=== PATIENT | male | born 1955 | race Caucasian/White ===

== ENCOUNTER 2020-04-20 20:14 | Emergency (ER) | payer MEDICARE, BC, SELFPAY ==
[2020-04-20 20:15] VITALS: BP 158/81; PULSE 90; RESP 18; TEMP 36.4; O2SAT 94; BMI 33.1
--- NOTE | 2020-04-20 20:41 | ED.VIS.INJ ---
History of Present Illness Informant: Patient Onset: Today - JPTA Mechanism/Context: Blunt Injury Quality of Pain: - - sore Location: mid-forehead Current Severity: Mild Maximum Severity: Moderate Worsened by: palpation Relieved by: n/a Associated Symptoms: Negative for: Parasthesias, Weakness, Loss of function, Inability to ambulate, Loss of consciousness, Amnesia Narrative: Patient states he was sitting in a recliner, relatively straight up and down and fell asleep while this occurred, fell forward and as a result struck his forehead on a nearby coffee table sustaining a laceration with bleeding. There was no loss of consciousness. He does have a mild headache, no nausea or vomiting. No vision changes or peripheral neurologic symptoms or other injuries. With pressure in route, he was able to get the bleeding to control. He takes a baby aspirin but no anticoagulants. Tetanus Immunization: <5 years <Samuel Bolanos - Last Filed: 04/20/20 21:35> <August Bertrand - Last Filed: 04/20/20 21:38> Chief Complaint: Laceration Past Medical History Past Medical History: None Smoking Status: Former smoker <Saumel Bolanos - Last Filed: 04/20/20 21:35> <August Bertrand - Last Filed: 04/20/20 21:38> - Allergies and Home Meds Allergies/Adverse Reactions: Allergies codeine Adverse Reaction (Verified 04/20/20 20:17) Nausea promethazine [From Phenergan] Adverse Reaction (Verified 04/20/20 20:17) Nausea Primary Care Physician: SULMA OSORIO [Other] Review of Systems General: Denies: Chills, Fever, Sweats Eyes: Denies: Visual changes - bilaterally, Diplopia ENT: Denies: Rhinorrhea, Sore throat Cardiovascular: Denies: Chest pain, Palpitations Respiratory: Denies: Dyspnea, Cough, Dyspnea on exertion Gastrointestinal: Denies: Abdominal pain, Nausea, Vomiting, Diarrhea Genitourinary: Denies: Dysuria, Hematuria Musculoskeletal: Denies: Swelling, Extremity Pain Skin: Reports: Wounds. Denies: Abscess Neurological: Reports: Headache. Denies: Weakness, Numbness <Samuel Bolanos - Last Filed: 04/20/20 21:35> Physical Exam Vital Signs/Narrative: Vital Signs Temp Pulse Resp BP Pulse Ox 04/20/20 20:15 97.6 F L 90 18 158/81 H 94 Inital Vital Signs reviewed: Yes General: Well nourished, Well developed, - - Well-appearing, no acute distress Head: Normocephalic, Trauma - With mild tenderness at site of laceration, mid lower forehead, not involving the nasal bridge or eyebrows/eyes. No crepitance or depression, no hematoma. Minimal bleeding. Eyes: Perrl, EOMI ENT: TM's clear, No hemotympanum or drainage, - - Midface stable. Laceration mid forehead only.. Negative for: Nasal trauma, Nasal septal hematoma Neck: Nontender, Full ROM Skin: Normal color, No rash, Trauma - 4 cm linear diagonal laceration lower mid forehead, full-thickness subcutaneous, clean-appearing Neurological: Alert, Oriented x3, Cranial nerves II-XII grossly intact, Normal Strength, Normal Sensation Psychological: Normal affect, Normal Mood - Glascow Coma Scale Eye Opening: Spontaneous Motor: Obeys Commands Verbal: Oriented Coma Scale Total: 15 <Samuel Bolanos - Last Filed: 04/20/20 21:35> Vital Signs/Narrative: Vital Signs Temp Pulse Resp BP Pulse Ox 04/20/20 20:15 97.6 F L 90 18 158/81 H 94 <August Bertrand - Last Filed: 04/20/20 21:38> Diagnostic/Tx/Re-eval - Medical Decision Making Laceration was repaired, his tetanus is up-to-date, I do not feel he needs a CT of the head which I discussed with him and he agrees. We discussed reasons to return. Laceration was repaired by my emergency physician colleague due to ED volume at the time. <Samuel Bolanos - Last Filed: 04/20/20 21:35> Procedures - Lacerations Face Depth: Skin Shape: Linear Prep: Sterile Conditions, Shacosta-Clens Laceration Repair: Lidocaine with epi, Local, Wound explored Number of Sutures/Rebeka: 6 Suture Information: Ethilon - Length of wound was 4 cm. A total of six 5-0 Ethilon sutures were placed. Patient tolerated procedure extremely well. Wound edges were well approximated., 5-0 <Augsut Bertrand - Last Filed: 04/20/20 21:38> ED Disposition <Samuel Bolanos - Last Filed: 04/20/20 21:35> <August Bertrand - Last Filed: 04/20/20 21:38> - Plan for ED Patient: Disposition: Home or Assisted Living Diagnosis: Facial laceration Instructions: ED Laceration, Face: Stitches or Tape Referrals: SULMA OSORIO [Other] Additional Instructions: Stitches need to be removed in 5 to 7 days. Follow up with your PCP. Local wound care as discussed
[2020-04-20] MEDS: Lidocaine/Epi/Tetracaine 50 ML 1 APPLIC TOPICAL (20:46)
[2020-04-20] MEDS: Lidocaine 1% /Epi 1:100 (20ml) 20 ML Vial INFILT (21:41)
== END 2020-04-20 21:42 | disposition home or self-care (01) ==
PROVIDERS: Emergency Provider Emergency Medicine
DX: S01.81XA Laceration without foreign body of other part of head, initial encounter (principal); Z87.891 Personal history of nicotine dependence; W22.8XXA Striking against or struck by other objects, initial encounter
CPT/HCPCS: 12013; 99283

== ENCOUNTER 2020-07-11 10:11 | Outpatient (RCR) | payer MEDICARE, BC, SELFPAY ==
[2020-07-11 10:44] VITALS: BMI 33.1
[2020-07-11 11:16] VITALS: BP 172/92; PULSE 76; RESP 16; TEMP 36.2; BMI 33.1
[2020-07-11 12:20] VITALS: BMI 33.1
--- NOTE | 2020-07-11 21:58 | PCM.WC.HP ---
(1) Corns and callosities Status: Chronic Code(s): L84 - Corns and callosities (2) Type 2 diabetes mellitus with diabetic polyneuropathy Status: Chronic Code(s): E11.42 - Type 2 diabetes mellitus with diabetic polyneuropathy (3) Non-pressure chronic ulcer of left heel and midfoot with fat layer exposed Status: Acute Code(s): L97.422 - Non-pressure chronic ulcer of left heel and midfoot with fat layer exposed (4) Tobacco abuse Status: Chronic Code(s): Z72.0 - Tobacco use (5) Obesity Status: Chronic Code(s): E66.9 - Obesity, unspecified History of Present Illness Date of Service: 07/11/20 Chief Complaint: left heel ulcer. swelling. calluses History of Wound: Patient presents for wound to left plantar foot. He is unsure how long it has been there as he can't see or reach his feet. He attributes this largely to his obesity. He relates that his daughter looked at his feet and saw the wound. He relates that his children live over an hour away and he lives alone. He relates some bloody drainage has been noted. He relates his daughter put a gauze over it secured with tape. Patient also complains of swelling to his legs, especially his left. He hasn't had this worked up by anyone. He relates he has smoked since he was 10 years old. He is also diabetic with neuropathy and relates his last hemoglobin A1c was 9.6. He also has hypertension. Past Medical History Past Medical History: Chronic Problems Corns and callosities (Chronic) Type 2 diabetes mellitus with diabetic polyneuropathy (Chronic) Tobacco abuse (Chronic) Obesity (Chronic) Allergies/Adverse Reactions: Allergies codeine Adverse Reaction (Verified 07/11/20 12:16) Nausea promethazine [From Phenergan] Adverse Reaction (Verified 07/11/20 12:16) Nausea Home Medications: Ambulatory Orders Medication Instructions Recorded Ascorbic Acid [Vitamin C] 1,000 mg PO TID 07/11/20 Aspirin [Aspirin, Baby] 81 mg PO DAILY@0800 07/11/20 Atorvastatin Calcium [Lipitor] 80 mg PO QHS 07/11/20 Cholecalciferol (Vitamin D3) 5,000 unit PO DAILY 07/11/20 [Vitamin D3] Gabapentin [Neurontin] 300 mg PO 07/11/20 Glipizide [Glipizide ER] 10 mg PO DAILY 07/11/20 Insulin Glargine,Hum.rec.anlog 40 unit SQ DAILY 07/11/20 [Lantus Solostar] Insulin Glargine,Hum.rec.anlog 35 unit SQ BREAKFAST 07/11/20 [Lantus] Insulin Lispro [Humalog KwikPen] See Protocol SQ 07/11/20 Magnesium Oxide [Magnesium] 500 mg PO DAILY 07/11/20 Oxycodone HCl/Acetaminophen 1 tab PO TID 07/11/20 [Percocet 10-325 mg Tablet] Smoking Status: Current every day smoker Review of Systems Constitutional: Denies: Chills, Fever Cardiovascular: Reports: Edema. Denies: Chest Pain Respiratory: Denies: Cough, Shortness of Breath Gastrointestinal: Denies: Nausea, Vomiting Skin: Reports: Wounds - left heel, - - callus left foot Neurological: Reports: Numbness, Tingling - Physical Exam Vital Signs Temp Pulse Resp BP 97.2 F L 76 16 172/92 H 07/11/20 11:16 07/11/20 11:16 07/11/20 11:16 07/11/20 11:16 General: Alert, Oriented x3 HEENT: Atraumatic Abdomen: Obese Extremities: No clubbing, No cyanosis, Capillary Refill Less than 3 Seconds, Diminished Peripheral Pulses, Edema - left greater than right lower extremity. Left induration noted with pitting edema. Left lower extremity also noted to have chronic red discoloration, - - left lower leg is indurated with some pain on compression of calf Skin: Ulcer/ Wound - plantar posterior left heel. Surrounding copious amounts of callus. No erythema, purulence, probing to bone, streaking or other signs of infection., - - copious amounts of callus to medial and lateral foot with majority at heel with fissuring to left lower extremity. B/L lower extremity noted to have dry skin. Some stable minimal well adhered noninfected eschars noted to b/l anterior legs Wound Measurements and Assessment WC - Nurse 1 - General Ulcer Measurement Start: 07/11/20 10:41 Freq: Status: Active Protocol: Activity Type Activity Date Activity User E-Sign Co-Sign Detail Recorded Client Recorded Date Recorded By Document 07/11/20 11:16 MS [id number] 07/11/20 11:24 MS 07/11/20 11:16 Wound Center Nurse 1 [Ulcer Assessment] #left lower leg -Current Size (cm) - Length 0.8 -Current Size (cm) - Width 0.4 -Current Size (cm) - Depth 0.1 -Total Square Cm 0.32 -Wound Margin Distinct, Outline Attached -Moisture (Margaret-wound Skin Appearance Dry/Scaly ) -Temperature (Margaret-wound Skin No Abnormality Appearance) (Pt Warm) -Tenderness on Palpation (Margaret-wound No Skin Appearance) -Ulcer Cleansing soap and water -Foul Odor after Cleansing No -Anesthetic Used 4% Lidocaine Solution #2 right lower leg -Current Size (cm) - Length 3 -Current Size (cm) - Width 0.3 -Current Size (cm) - Depth 0.1 -Total Square Cm 0.9 -Exudate Amt None Present -Wound Margin Distinct, Outline Attached -Granulation Amt None Present (0 %) -Slough/Fibrin No -Moisture (Margaret-wound Skin Appearance No Abnormality ) -Color (Margaret-wound Skin Appearance) Hemosiderin Staining -Ulcer Cleansing soap and water -Foul Odor after Cleansing No -Anesthetic Used 4% Lidocaine Solution #1 left heel -Current Size (cm) - Length 3 -Current Size (cm) - Width 0.8 -Current Size (cm) - Depth 0.6 -Total Square Cm 2.4 -Exudate Amt None Present -Wound Margin Distinct, Outline Attached -Granulation Amt None Present (0 %) -Slough/Fibrin No -Moisture (Margaret-wound Skin Appearance Dry/Scaly ) -Color (Margaret-wound Skin Appearance) Hemosiderin Staining -Temperature (Margaret-wound Skin No Abnormality Appearance) (Pt Warm) -Ulcer Cleansing soap and water -Foul Odor after Cleansing No -Anesthetic Used 4% Lidocaine Solution [Edema Assessment] -Right Calf (cm) 47 -Right Ankle (cm) 28 -Left Calf (cm) 42 -Left Ankle (cm) 26.5 WC - Nurse 2 - General Ulcer CM Notes Start: 07/11/20 10:41 Freq: Status: Active Protocol: Activity Type Activity Date Activity User E-Sign Co-Sign Detail Recorded Client Recorded Date Recorded By Document 07/11/20 11:58 DANIEL [id number] 07/11/20 12:11 JF 07/11/20 11:58 Wound Center Nurse 2 [Procedure/Treatment] #1 left heel -Time 12:03 -Correct Patient Yes -Correct Side, Site, Position Yes -Correct Procedure Yes -Procedure Performed Yes -Type of Procedure Debridement -Clinical Debridement Subcutaneous -Tissue Removed Subcutaneous -Post Debridement (cm) - Length 4.3 -Post Debridement (cm) - Width 1.4 -Post Debridement (cm) - Depth 0.4 -Total Square (Post) (cm) 6.02 -Area of Debridement (cm) - Length 4.3 -Area of Debridement (cm) - Width 1.4 -Total Square (Area) (cm) 6.02 -Tunneling No -Undermining/Tunneling No -Circular Undermining No -Wound/Ulcer Outcome Not Healed -Ulcer Cleansing Rinsed/ Irrigated with Saline -Foul Odor after Cleansing No -Bioengineered Tissue No -Bleeding Controlled with Pressure -Offloading No -Treatment Response Procedure Tolerated Well -Debridement - Subq, 1st 20sq cm Yes [See Physician Procedure note for Specifics] Pain Scale: 0-10 Numeric [Pain] -Is Patient Pain Free? Yes - Nurse 3 - General Ulcer D/C NN Start: 07/11/20 10:41 Freq: Status: Active Protocol: Activity Type Activity Date Activity User E-Sign Co-Sign Detail Recorded Client Recorded Date Recorded By Document 07/11/20 12:24 DL [id number] 07/11/20 12:26 DL 07/11/20 12:24 Wound Care Nurse 3 [Wound Dressing] #1 left heel -Ulcer Cleansing Rinsed/ Irrigated with Saline -Foul Odor after Cleansing No -Primary Dressing Applied C Hydrogel ($) -Primary Dressing Covered/Secured Dry Gauze & with Roll Gauze, Secured with Tape [Compression Applied] Right -Tubular Bandage Single Layer -Size of Tubigrip Used Size F -Size F ($) 1 [Post Procedure Tolerated] -Treatment Response Procedure Tolerated Well Pain Scale: 0-10 Numeric [Pain] -Is Patient Pain Free? Yes - Visit Discharge [Visit Discharge Information] -Discharge Condition Stable -Ambulatory Status Ambulatory,Cane Musculoskeletal: Muscle Wasting Neurological: - - lack of epicritic sensation consistent with neuropathy Psych/Mental Status: Normal Affect Debridement Note Post-Debridement Measurements/Treatment WC - Nurse 2 - General Ulcer CM Notes Start: 07/11/20 10:41 Freq: Status: Active Protocol: Activity Type Activity Date Activity User E-Sign Co-Sign Detail Recorded Client Recorded Date Recorded By Document 07/11/20 11:58 DANIEL [id number] 07/11/20 12:11 DANIEL 07/11/20 11:58 Wound Center Nurse 2 #1 left heel -Time 12:03 -Correct Patient Yes -Correct Side, Site, Position Yes -Correct Procedure Yes -Procedure Performed Yes -Type of Procedure Debridement -Clinical Debridement Subcutaneous -Tissue Removed Subcutaneous -Post Debridement (cm) - Length 4.3 -Post Debridement (cm) - Width 1.4 -Post Debridement (cm) - Depth 0.4 -Total Square (Post) (cm) 6.02 -Area of Debridement (cm) - Length 4.3 -Area of Debridement (cm) - Width 1.4 -Total Square (Area) (cm) 6.02 -Tunneling No -Undermining/Tunneling No -Circular Undermining No -Wound/Ulcer Outcome Not Healed -Ulcer Cleansing Rinsed/ Irrigated with Saline -Foul Odor after Cleansing No -Bioengineered Tissue No -Bleeding Controlled with Pressure -Offloading No -Treatment Response Procedure Tolerated Well -Debridement - Subq, 1st 20sq cm Yes Pain Scale: 0-10 Numeric Is Patient Pain Free? Yes - Nurse 3 - General Ulcer D/C NN Start: 07/11/20 10:41 Freq: Status: Active Protocol: Activity Type Activity Date Activity User E-Sign Co-Sign Detail Recorded Client Recorded Date Recorded By Document 07/11/20 12:24 DL [id number] 07/11/20 12:26 DL 07/11/20 12:24 Wound Care Nurse 3 #1 left heel -Ulcer Cleansing Rinsed/ Irrigated with Saline -Foul Odor after Cleansing No -Primary Dressing Applied C Hydrogel ($) -Primary Dressing Covered/Secured with Dry Gauze & Roll Gauze, Secured with Tape Right -Tubular Bandage Single Layer -Size of Tubigrip Used Size F -Size F ($) 1 Treatment Response Procedure Tolerated Well Pain Scale: 0-10 Numeric Is Patient Pain Free? Yes WC - Visit Discharge Discharge Condition Stable Ambulatory Status Ambulatory,Cane Wound debrided: heel cluster Laterality: Left Wound Grade/Stage: daugherty 1 Type of Debridement: Excisional debridement Anesthesia Used: 4% Lidocaine Solution Depth: in the subcutaneous layer Percentage of wound debrided: 70 Instrument Used: #15 blade Tissue Removed: removal of devitalized, biofilm, fibrotic, slough, biofilm, callus tissue Severity: Fat Layer Exposed Amount of bleeding with debridement: Mild Bleeding Controlled with: Pressure Patient tolerated procedure well Assessment/Plan Active Problems Corns and callosities (Chronic) Type 2 diabetes mellitus with diabetic polyneuropathy (Chronic) Non-pressure chronic ulcer of left heel and midfoot with fat layer exposed (Acute) Tobacco abuse (Chronic) Obesity (Chronic) Assessment: left heel ulcer. left foot callus with fissuring. diabetes with neuropathy. obesity. tobacco abuse Plan: Patient seen and examined. Patient is obese and relates that he can not reach his feet and hasn't been able to take proper care of them. Patient lives alone, and his children are over an hour away. His daughter saw the wound to his heel and got him to come to wound care center. Patient noted to have copious amounts of callus to left lower extremity. This is in part due to patient not being able to reach feet and thus provide proper care and hygeine to area. Discussed importance of cleaning and maintaining foot both to prevent infection as well as to prevent future wounds. Discussed he is at higher risk for wounds due to his neuropathy, hyperglycemia, swelling, and tabacco abuse. Discussed importance of smoking cessation, blood sugar control, weight management, offloading, proper nutrition, and hygeine to optimize healing potential. Callus foot care: Discussed condition and treatment options with the patient in detail. Debrided and removed callus from left medial and lateral foot and heel using a #15 blade. This was done without incident. Offloading, padding, and footwear has been reviewed. Follow up in 2-3 months, sooner if needed. This is medically necessary due to neuropathy findings, and performance of this service by a nonprofessional person would put the patient at risk. After verbal consent was obtained sharp excisional debridement debridement was carried out to the left heel ulceration. Arterial and venous studies were orderedf or the patient. Venous studies will also assess if DVT is present given patient's induration, swelling, and pain to left calf. Patient denies any vascular issues but also hasn't had anything worked up. Patient relates he has been smoking since he was 10 years old. Discussed impact smoking has on his vessels as well as impact on wound healing. Patient relates that he has had the swelling for a while anc can't wear compression socks as he can't reach to put them on. He also denies being on a water pill. Patient physically is unable to reach his feet and thus is unable to do his own dressing changes. He has no family who could do this for him as he lives alone and his kids are over an hour away. Discussed that he doesn't qualify for home health care. A&D ointment applied to left lower extremity. Wound care was reviewed with patient. Discussed offloading ulceration with surgical shoe with offloading insert. Patient noted to already be using a cane for ambulation. Patient denied getting surgical shoe at this time. Patient also complains of spot to his back that might need lanced. Discussed that I am a Ethnic [employer] Professor and am unable to look at his back. Offerred patient appointment with another physician at the [facility] to take a look at it. Also encouraged patient to follow up with his PCP about this. If worsens or changes patient encouraged to go to ED. Patient to follow up in 1 week. 30 to 44 minutes was spent on this encounter. This included both face to face and non face to face care, which includes but not limited to time preparing for the visit (which includes but not limited to reviewing medical record, any pertinent paperwork, as well as previous imaging and/or test results), reviewing/obtaining the noted history, performing the noted examination, counseling and providing education to the patient as well as to patient's family and/or patient caregivers per patient request. This also includes ordering any medication(s), test(s), and/or procedure(s) as indicated and as documented in the medical record, interpreting / sharing this information when indicated (and with patient's permission) as documented, communicating with other healthcare providers as needed/as requested, the time documenting information in the medical record, as well as any further care coordination.
== END 2020-07-16 23:59 ==
LOC: WC 10:11
PROVIDERS: Visit Provider Podiatrist Foot & Ankle Surgery
DX: E11.621 Type 2 diabetes mellitus with foot ulcer (principal); L84 Corns and callosities; E11.42 Type 2 diabetes mellitus with diabetic polyneuropathy; L97.422 Non-pressure chronic ulcer of left heel and midfoot with fat layer exposed; E66.9 Obesity, unspecified; I10 Essential (primary) hypertension; M79.89 Other specified soft tissue disorders; F17.200 Nicotine dependence, unspecified, uncomplicated; Z79.82 Long term (current) use of aspirin; Z79.899 Other long term (current) drug therapy; Z79.4 Long term (current) use of insulin; M79.662 Pain in left lower leg
CPT/HCPCS: 11042; 99213; G0463

== ENCOUNTER → 2020-07-25 11:27 | Outpatient (CLI) | payer MEDICARE, BC, SELFPAY ==
[2020-07-11 12:20] VITALS: BMI 33.1
[2020-07-25 09:15] VITALS: BMI 33.1
--- NOTE | 2020-07-25 11:30 | US_ITS ---
STUDY: RENAL ULTRASOUND - COMPLETE REASON FOR EXAM: Male, 64 years old. CKD, STAGE III TECHNIQUE: Ultrasound evaluation of the kidneys was performed with real-time and static dorado-scale imaging. COMPARISON: None. FINDINGS: Aorta: Visualized portions of abdominal aorta are normal in diameter. IVC: Visualized portions appear patent. Right kidney: Measures 12.5 cm. Normal contour. Renal cortical thickness appears normal. Multiple cysts including upper pole 2.3 cm, lateral pole 3.8 cm, and inferior pole 2.2 cm. . No masses, stones, or hydronephrosis identified. Left kidney: Measures 9.6 cm. Irregular contour. Renal cortical thickness appears normal. 2.1 cm cyst. No masses, stones, or hydronephrosis identified. Increased renal cortical echogenicity bilaterally may indicate medical renal disease. Bladder: No intrinsic masses, stones, or abnormal dilatation noted. US/Kidney and Bladder IMPRESSION: Small irregular appearing left kidney is likely due to prior partial nephrectomy. Several right renal cysts. Increased renal cortical echogenicity bilaterally may indicate medical renal disease. Electronically Signed: Jonatan Stovall MD at 16:37 EST Tel , Service support ,
== END ==
DX: I12.9 Hypertensive chronic kidney disease with stage 1 through stage 4 chronic kidney disease, or unspecified chronic kidney disease (principal); N18.30 Chronic kidney disease, stage 3 unspecified; E11.621 Type 2 diabetes mellitus with foot ulcer; E11.42 Type 2 diabetes mellitus with diabetic polyneuropathy; L97.411 Non-pressure chronic ulcer of right heel and midfoot limited to breakdown of skin; B35.1 Tinea unguium; L84 Corns and callosities; E66.9 Obesity, unspecified; M79.89 Other specified soft tissue disorders; F17.200 Nicotine dependence, unspecified, uncomplicated; L97.512 Non-pressure chronic ulcer of other part of right foot with fat layer exposed
CPT/HCPCS: 11042; 76770

== ENCOUNTER → 2020-08-04 09:48 | Outpatient (CLI) | payer MEDICARE, BC, SELFPAY ==
[2020-08-01 09:32] VITALS: BMI 33.1
--- NOTE | 2020-08-04 09:55 | RAD_ITS ---
STUDY: X-RAY - LEFT FOOT CLINICAL: Male, 64 years old. HEEL ULCER TECHNIQUE: 3 view(s) of the foot. COMPARISON: None. FINDINGS: Normal talus, calcaneus, and tarsal bones. Normal visualized subtalar, talonavicular, calcaneocuboid, tarsal and tarsometatarsal articulations. Normal metatarsi. Normal metatarsophalangeal joint of the great toe. Normal tibial and fibular sesamoid bones. Normal interphalangeal joint of the great toe. Normal phalanges of the great toe. Normal second through fifth metatarsophalangeal joints. Normal interphalangeal joints and phalanges of the lesser toes. The soft tissue structures are unremarkable. RAD/Foot min 3 Views IMPRESSION: Normal x-ray examination of the foot. Electronically Signed: Carlos Luo MD at 10:09 EDT Tel , Service support ,
== END ==
PROVIDERS: Referring Provider Podiatrist Foot & Ankle Surgery; Visit Provider Podiatrist Foot & Ankle Surgery
DX: L97.429 Non-pressure chronic ulcer of left heel and midfoot with unspecified severity (principal)
CPT/HCPCS: 73630

== ENCOUNTER 2020-08-15 09:30 | Outpatient (RCR) | payer MEDICARE, BC, SELFPAY ==
[2020-07-17 00:38] VITALS: BP 172/92; PULSE 76; RESP 16; TEMP 36.2
--- NOTE | 2020-07-20 12:53 | ART_ITS ---
Reason For Study: PVD Procedure A bilateral lower extremity continuous wave Doppler with analog waveform analysis,segmental pressures,and ankle brachial indexes without exercise. Left Segmental Pressures Left brachial= 151mmHg. Left posterior tibial artery = 161mmHg. Left dorsalis pedis artery = 142mmHg. Left digit = 113 mmHg. The left dorsalis pedis waveforms are triphasic. The left posterior tibial artery waveforms are triphasic. Right Segmental Pressures Right brachial= 160mmHg. Right posterior tibial artery = 188mmHg. Right dorsalis pedis artery = 159mmHg. Right digit = 122 mmHg. The right dorsalis pedis waveforms are triphasic. The right posterior tibial artery waveforms are triphasic. Indices The right ankle brachial index by the dorsalis pedis is .99. The right ankle brachial index by the posterior tibial artery is 1.18. The right digital-brachial index is .76. The left ankle brachial index by the dorsalis pedis is .89. The left ankle brachial index by the posterior tibial artery is 1.01. The left digital-brachial index is .71. Interpretation Summary Triphasic Doppler waveforms are noted at ankle level bilaterally. Pulse-volume recordings appear satisfactory at all levels bilaterally, including low-thigh, calf, ankle, and digital levels. Resting ankle-brachial indices are normal bilaterally. Digital-brachial indices are normal bilaterally. There is no evidence of significant arterial occlusive disease in the lower extremities bilaterally. Ordering Physician: Chelsea Nair Performed By: ROHAN LAL RVT
--- NOTE | 2020-07-20 12:53 | VDLE_ITS ---
Reason For Study: edema, ulcer RIGHT LEFT CFV is compressible, spontaneous, phasic, CFV is compressible, spontaneous, phasic, competent and demonstrates normal competent, and demonstrates normal augmentation. augmentation. FV is compressible, spontaneous, phasic, FV is compressible, spontaneous, phasic, competent and demonstrates normal competent and demonstrates normal augmentation. augmentation. POP V is compressible, spontaneous, phasic, POP V is compressible, spontaneous, phasic, competent and demonstrates normal competent and demonstrates normal augmentation. augmentation. T/P Trunk is compressible. T/P Trunk is compressible. PTV is compressible. PTV is compressible. RT PerV is compressible. LT PerV is compressible. SFJ is competent and measures .7 cm. SFJ is competent and measures .76 cm. GSV proximal thigh measures .59 x .61 cm. GSV proximal thigh measures .42 x .49 cm. GSV at knee measures .25 x .26 cm. GSV at knee measures .31 x .35 cm. GSV is competent throughout. GSV above knee is competent. SSV proximal calf is competent and GSV below knee is INCOMPETENT for greater measures .39 x .44 cm. than 0.5 seconds. Surgery Aid V 20 cm proximal to the medial SSV proximal calf is competent and malleolus is incompetent for greater than .5 measures .53 x .54 cm. seconds. Procedure This is a venous duplex using B-mode, color flow and spectral Doppler. Exam performed in department. The exam was diagnostic. Interpretation Summary Deep veins of the lower extremities are bilaterally patent and compressible segmentally. There is no evidence of deep vein thrombosis on either side. Valvular competence appears intact within the proximal deep venous systems bilaterally. The great saphenous veins appear bilaterally patent and compressible segmentally. Sapheno-femoral junctions are bilaterally competent . The right great saphenous vein appears segmentally competent. The left great saphenous vein appears competent above the knee. The left great saphenous vein appears incompetent below the knee. Small saphenous veins are patent and competent bilaterally. An incompetent metal lather vein is noted in the right calf, located 20 centimeters proximal to the right medial malleolus. Ordering Physician: Chelsea Nair Performed By: Brayan Fox RVT
[2020-07-25 09:15] VITALS: BP 166/80; PULSE 78; RESP 18; TEMP 36.6; BMI 33.1
--- NOTE | 2020-07-25 09:54 | PCM.WC.PN ---
(1) Non-pressure chronic ulcer of left heel and midfoot with fat layer exposed Status: Chronic Code(s): L97.422 - Non-pressure chronic ulcer of left heel and midfoot with fat layer exposed (2) Type 2 diabetes mellitus with diabetic polyneuropathy Status: Chronic Code(s): E11.42 - Type 2 diabetes mellitus with diabetic polyneuropathy (3) Tinea unguium Status: Chronic Code(s): B35.1 - Tinea unguium (4) Corns and callosities Status: Chronic Code(s): L84 - Corns and callosities (5) Tobacco abuse Status: Chronic Code(s): Z72.0 - Tobacco use (6) Obesity Status: Chronic Code(s): E66.9 - Obesity, unspecified Type of Wound Date of Service: 07/25/20 Chief Complaint: left heel ulcer. swelling. calluses. Toenail fungus History of Wound: Patient presents for wound to left plantar foot. He is unsure how long it has been there as he can't see or reach his feet. He attributes this largely to his obesity. He relates that his daughter looked at his feet and saw the wound. He relates that his children live over an hour away and he lives alone. He relates some bloody drainage has been noted. He relates his daughter put a gauze over it secured with tape. Patient also complains of swelling to his legs, especially his left. He relates he has smoked since he was 10 years old. He is also diabetic with neuropathy and relates his last hemoglobin A1c was 9.6. He also has hypertension. Progress of Wound: improved with less callus Subjective: Patient seen and examined resting comfortably. Patient denies any new pedal complaints. Patient denies any nausea, fever, chills, chest pain, shortness of breath, cough, streaking, purulence, vomiting. Patient relates that pain to his left heel is worsening - Physical Exam Vital Signs Temp Pulse Resp BP 97.9 F 78 18 166/80 H 07/25/20 09:15 07/25/20 09:15 07/25/20 09:15 07/25/20 09:15 General: Alert, Oriented x3 Abdomen: Obese - Body habitus prevents patient from reaching his feet Extremities: Capillary Refill Less than 3 Seconds, No Calf Tenderness, Diminished Peripheral Pulses, Edema, Tenderness - Heel wound Skin: Ulcer/ Wound - Left heel ulceration plantar with surrounding callus. No malodor, erythema, purulence, probing to bone, streaking, or other signs of infection. Skin is atrophic and hairless. Granular base Wound Measurements and Assessment WC - Nurse 1 - General Ulcer Measurement Start: 07/25/20 09:15 Freq: Status: Active Protocol: Activity Type Activity Date Activity User E-Sign Co-Sign Detail Recorded Client Recorded Date Recorded By Document 07/25/20 09:15 [facility] [id number] 07/25/20 09:28 [facility] 07/25/20 09:15 Wound Center Nurse 1 [Ulcer Assessment] #1 left heel -Combined with other wound No -Current Size (cm) - Length 2 -Current Size (cm) - Width 0.8 -Current Size (cm) - Depth 0.3 -Total Square Cm 1.6 -Photo Taken No -Epithelialization None Present -Tunneling No -Undermining/Tunneling No -Circular Undermining No -Exudate Amt Medium -Exudate Type Serosanguineous -Wound Margin Distinct, Outline Attached -Granulation Amt Small (1-33%) -Granulation Quality Red -Slough/Fibrin Yes -Necrosis Amt Medium (34-66%) -Necrotic Tissue Type Adherent Slough -Texture (Margaret-wound Skin Appearance) Assessed,Callus ,Scarring -Moisture (Margaret-wound Skin Appearance Assessed,Dry/ ) Scaly -Color (Margaret-wound Skin Appearance) Assessed -Temperature (Margaret-wound Skin No Abnormality Appearance) (Pt Warm) -Tenderness on Palpation (Margaret-wound No Skin Appearance) -Ulcer Cleansing SOAPY WATER -Foul Odor after Cleansing No -Anesthetic Used 4% Lidocaine Solution [Edema Assessment] -Lower Limb Edema Present Yes -Left Calf (cm) 46.4 -Left Ankle (cm) 27 Musculoskeletal: Tenderness - Ulceration Neurological: - - Lack of epicritic sensation consistent with neuropathy Psych/Mental Status: Normal Affect, Appropriate Debridement Note Wound debrided: He will Laterality: Left Depth: in the subcutaneous layer Percentage of wound debrided: 100 Instrument Used: 5mm curette, #15 blade Tissue Removed: Tissue removed include fibrous, devitalized, biofilm, callus, slough tissue Severity: Fat Layer Exposed Amount of bleeding with debridement: Mild Bleeding Controlled with: Pressure Patient tolerated procedure well Assessment/Plan Assessment: left heel ulcer. left foot callus with fissuring. diabetes with neuropathy. obesity. tobacco abuse. Toenail fungus Plan: Patient seen and examined. Patient is obese and relates that he can not reach his feet and hasn't been able to take proper care of them. Patient lives alone, and his children are over an hour away. His daughter saw the wound to his heel and got him to come to wound care center. Patient noted to have copious amounts of callus to left lower extremity more of the callus tissue was debrided today after verbal consent was obtained from the patient. This is in part due to patient not being able to reach feet and thus provide proper care and hygeine to area. Discussed importance of cleaning and maintaining foot both to prevent infection as well as to prevent future wounds. Discussed he is at higher risk for wounds due to his neuropathy, hyperglycemia, swelling, and tabacco abuse. Discussed importance of smoking cessation, blood sugar control, weight management, offloading, proper nutrition, and hygeine to optimize healing potential. After verbal consent was obtained sharp excisional debridement debridement was carried out to the left heel ulceration. Arterial and venous studies were reviewed. Patient relates he has been smoking since he was 10 years old. Discussed impact smoking has on his vessels as well as impact on wound healing. Patient relates that he has had the swelling for a while and can't wear compression socks as he can't reach to put them on. He also denies being on a water pill. Patient physically is unable to reach his feet and thus is unable to do his own dressing changes. He has no family who could do this for him as he lives alone and his kids are over an hour away. Patient was able to obtain daily home health care aides to assist with dressing changes. Patient is noted to have decrease in swelling and overall better hygiene appearance most likely due to this. Patient has benefit from home health hospice home care coordinator. A&D ointment applied to left lower extremity. Hydrogel to heel ulcer with Adaptic covering entire heel. SurePress compression over dressing. To continue this daily per home health care. Discussed offloading ulceration with surgical shoe with offloading insert. Patient brought a surgical shoe today that has heel offloaded. Uses roller aid for ambulation. Patient also has concerns for toenail fungus. Discussed with the patient various treatment options as well as biopsy for toenail fungus. Discussed that his inability to reach his toes would inhibit his ability to do the topical options. Also discussed that proper toe maintenance and hygiene as well as callus care is important to the patient's continued foot health and prevention of future ulcerations of in the patient history of ulcerations and neuropathy and diabetes. Discussed that he can become established at our office for the services. Patient to follow up in 1 week. 20 to 29 minutes was spent on this encounter. This included both face to face and non face to face care, which includes but not limited to time preparing for the visit (which includes but not limited to reviewing medical record, any pertinent paperwork, as well as previous imaging and/or test results), reviewing/obtaining the noted history, performing the noted examination, counseling and providing education to the patient as well as to patient's family and/or patient caregivers per patient request. This also includes ordering any medication(s), test(s), and/or procedure(s) as indicated and as documented in the medical record, interpreting / sharing this information when indicated (and with patient's permission) as documented, communicating with other healthcare providers as needed/as requested, the time documenting information in the medical record, as well as any further care coordination.
[2020-08-01 09:32] VITALS: BP 139/61; PULSE 82; RESP 22; TEMP 37.1; BMI 33.1
--- NOTE | 2020-08-01 10:18 | PCM.WC.PN ---
(1) Non-pressure chronic ulcer of left heel and midfoot with fat layer exposed Status: Chronic Code(s): L97.422 - Non-pressure chronic ulcer of left heel and midfoot with fat layer exposed (2) Type 2 diabetes mellitus with diabetic polyneuropathy Status: Chronic Code(s): E11.42 - Type 2 diabetes mellitus with diabetic polyneuropathy (3) Tinea unguium Status: Chronic Code(s): B35.1 - Tinea unguium (4) Corns and callosities Status: Chronic Code(s): L84 - Corns and callosities (5) Tobacco abuse Status: Chronic Code(s): Z72.0 - Tobacco use (6) Obesity Status: Chronic Code(s): E66.9 - Obesity, unspecified Type of Wound Date of Service: 08/01/20 Chief Complaint: left heel ulcer. swelling. calluses. Toenail fungus History of Wound: Patient presents for wound to left plantar foot. He is unsure how long it has been there as he can't see or reach his feet. He attributes this largely to his obesity. He relates that his daughter looked at his feet and saw the wound. He relates that his children live over an hour away and he lives alone. He relates some bloody drainage has been noted. He relates his daughter put a gauze over it secured with tape. Patient also complains of swelling to his legs, especially his left. He relates he has smoked since he was 10 years old. He is also diabetic with neuropathy and relates his last hemoglobin A1c was 9.6. He also has hypertension. Progress of Wound: less callus surrounding wound noted. Wound itself is stable Subjective: Patient seen and examined resting comfortably. Patient denies any new pedal complaints. Patient denies any nausea, fever, chills, chest pain, shortness of breath, cough, streaking, purulence, vomiting. - Physical Exam Vital Signs Temp Pulse Resp BP 98.8 F 82 22 H 139/61 H 08/01/20 09:32 08/01/20 09:32 08/01/20 09:32 08/01/20 09:32 General: Alert, Oriented x3 HEENT: Atraumatic Abdomen: Obese Extremities: No clubbing, No cyanosis, Capillary Refill Less than 3 Seconds, No Calf Tenderness, Diminished Peripheral Pulses, Edema, - - Chronic red-blue color discoloration to bilateral lower extremities Skin: Ulcer/ Wound - Left heel ulceration. Surrounding callus noted. No malodor, erythema, purulence, probing to bone, streaking, or other signs of infection. Skin is atrophic and hairless. Granular base, - - Callus to bilateral heels left worse than right. Skin is thin and atrophic and flaky. Wound Measurements and Assessment WC - Nurse 1 - General Ulcer Measurement Start: 07/25/20 09:15 Freq: Status: Active Protocol: Activity Type Activity Date Activity User E-Sign Co-Sign Detail Recorded Client Recorded Date Recorded By Document 08/01/20 09:32 JULIO C [id number] 08/01/20 09:42 DL 08/01/20 09:32 Wound Center Nurse 1 [Ulcer Assessment] #1 left heel CLUSTER -Current Size (cm) - Length 2 -Current Size (cm) - Width 1 -Current Size (cm) - Depth 0.3 -Total Square Cm 2 -Photo Taken No -Exudate Amt Small -Wound Margin Thickened -Granulation Amt Medium (34-66%) -Granulation Quality Pale,Trout -Necrosis Amt Medium (34-66%) -Necrotic Tissue Type Adherent Slough -Structure Exposed N/A -Texture (Margaret-wound Skin Appearance) Callus -Moisture (Margaret-wound Skin Appearance Dry/Scaly ) -Color (Margaret-wound Skin Appearance) No Abnormality -Temperature (Margaret-wound Skin No Abnormality Appearance) (Pt Warm) -Tenderness on Palpation (Margaret-wound Yes Skin Appearance) -Ulcer Cleansing Wound Cleanser -Foul Odor after Cleansing No -Anesthetic Used 4% Lidocaine Solution [Edema Assessment] -Left Calf (cm) 44 -Left Ankle (cm) 26 - Nurse 2 - General Ulcer CM Notes Start: 07/25/20 09:15 Freq: Status: Active Protocol: Activity Type Activity Date Activity User E-Sign Co-Sign Detail Recorded Client Recorded Date Recorded By Document 08/01/20 09:51 DANIEL [id number] 08/01/20 09:55 DANIEL 08/01/20 09:51 Wound Center Nurse 2 [Procedure/Treatment] #1 left heel CLUSTER -Time 09:54 -Correct Patient Yes -Correct Side, Site, Position Yes -Correct Procedure Yes -Procedure Performed Yes -Type of Procedure Debridement -Clinical Debridement Subcutaneous -Tissue Removed Subcutaneous -Post Debridement (cm) - Length 2.3 -Post Debridement (cm) - Width 0.8 -Post Debridement (cm) - Depth 0.3 -Total Square (Post) (cm) 1.84 -Area of Debridement (cm) - Length 2.3 -Area of Debridement (cm) - Width 0.8 -Total Square (Area) (cm) 1.84 -Tunneling No -Undermining/Tunneling No -Circular Undermining No -Wound/Ulcer Outcome Not Healed -Ulcer Cleansing Rinsed/ Irrigated with Saline -Foul Odor after Cleansing No -Bioengineered Tissue No -Bleeding Controlled with Pressure -Offloading No -Treatment Response Procedure Tolerated Well -Debridement - Subq, 1st 20sq cm Yes [See Physician Procedure note for Specifics] Pain Scale: 0-10 Numeric [Pain] -Is Patient Pain Free? Yes Musculoskeletal: Tenderness - To heel ulcer Neurological: - - Decrease in epicritic sensation consistent with neuropathy Psych/Mental Status: Normal Affect, Appropriate Debridement Note Post-Debridement Measurements/Treatment WC - Nurse 2 - General Ulcer CM Notes Start: 07/25/20 09:15 Freq: Status: Active Protocol: Activity Type Activity Date Activity User E-Sign Co-Sign Detail Recorded Client Recorded Date Recorded By Document 07/25/20 09:40 [email or web address] [id number] 07/25/20 10:02 Document 08/01/20 09:51 [id number] 08/01/20 09:55 07/25/20 08/01/20 09:40 09:51 Wound Center Nurse 2 #1 left heel CLUSTER -Time 09:40 09:54 -Correct Patient Yes Yes -Correct Side, Site, Position Yes Yes -Correct Procedure Yes Yes -Procedure Performed Yes Yes -Type of Procedure Debridement Debridement -Clinical Debridement Subcutaneous Subcutaneous -Tissue Removed Subcutaneous Subcutaneous -Post Debridement (cm) - Length 2 2.3 -Post Debridement (cm) - Width 0.9 0.8 -Post Debridement (cm) - Depth 0.3 0.3 -Total Square (Post) (cm) 1.8 1.84 -Area of Debridement (cm) - Length 2 2.3 -Area of Debridement (cm) - Width 0.9 0.8 -Total Square (Area) (cm) 1.8 1.84 -Tunneling No No -Undermining/Tunneling No -Circular Undermining No No -Wound/Ulcer Outcome Not Healed Not Healed -Ulcer Cleansing Rinsed/ Rinsed/ Irrigated with Irrigated with Saline Saline -Foul Odor after Cleansing No No -Bioengineered Tissue No No -Bleeding Controlled with Pressure Pressure -Offloading Yes No -Type of Offloading Surgical Shoe -Treatment Response Procedure Procedure Tolerated Well Tolerated Well -Debridement - Subq, 1st 20sq cm Yes Yes Pain Scale: 0-10 Numeric Is Patient Pain Free? Yes Yes - Nurse 3 - General Ulcer D/C NN Start: 07/25/20 09:15 Freq: Status: Active Protocol: Activity Type Activity Date Activity User E-Sign Co-Sign Detail Recorded Client Recorded Date Recorded By Document 07/25/20 10:02 DANIEL [id number] 07/25/20 10:03 DANIEL 07/25/20 10:02 Wound Care Nurse 3 #1 left heel CLUSTER -Ulcer Cleansing Rinsed/ Irrigated with Saline -Foul Odor after Cleansing No -Primary Dressing Applied C Hydrogel ($), NonAdherent Contact Layer -Primary Dressing Covered/Secured with Dry Gauze & Roll Gauze, Secured with Tape Left -Compression Wrap Surepress ($) Pain Scale: 0-10 Numeric Is Patient Pain Free? Yes WC - Visit Discharge Discharge Condition Stable Ambulatory Status Walker Transportation Private Auto Medication Reconcilliation completed & Yes provided to patient/care provider Clinical Summary of Care Provided Yes Wound debrided: heel Laterality: Left Wound Grade/Stage: Acevedo 1 Type of Debridement: Excisional debridement Anesthesia Used: 4% Lidocaine Solution Depth: in the subcutaneous layer Percentage of wound debrided: 100 Instrument Used: 3mm curette, #15 blade - Debridement of surrounding callus Tissue Removed: Tissue removed includes fibrous, devitalized, biofilm, and slough tissue Severity: Fat Layer Exposed Amount of bleeding with debridement: Mild Bleeding Controlled with: Pressure Patient tolerated procedure well Assessment/Plan Active Problems Corns and callosities (Chronic) Type 2 diabetes mellitus with diabetic polyneuropathy (Chronic) Non-pressure chronic ulcer of left heel and midfoot with fat layer exposed (Chronic) Tobacco abuse (Chronic) Obesity (Chronic) Tinea unguium (Chronic) Assessment: left heel ulcer. left foot callus with fissuring. diabetes with neuropathy. obesity. tobacco abuse Plan: Patient seen and examined. Patient is obese and relates that he can not reach his feet and hasn't been able to take proper care of them. Patient lives alone, and his children are over an hour away. His daughter saw the wound to his heel and got him to come to wound care center. Callus tissue and wound to left plantar heel were sharply debrided with a curette and #15 blade after verbal consent was obtained from the patient. Was done without incident. Discussed importance of cleaning and maintaining foot both to prevent infection as well as to prevent future wounds. Discussed he is at higher risk for wounds due to his neuropathy, hyperglycemia, swelling, and tabacco abuse. Discussed importance of smoking cessation, blood sugar control, weight management, offloading, proper nutrition, and hygeine to optimize healing potential. After verbal consent was obtained sharp excisional debridement debridement was carried out to the left heel ulceration. Arterial and venous studies were reviewed. Showing likely adequate perfusion for healing. Patient relates he has been smoking since he was 10 years old. Discussed impact smoking has on his vessels as well as impact on wound healing. Patient relates that he has had the swelling for a while and can't wear compression socks as he can't reach to put them on. He also denies being on a water pill. Patient physically is unable to reach his feet and thus is unable to do his own dressing changes. He has no family who could do this for him as he lives alone and his kids are over an hour away. Patient was able to obtain daily home health care aides to assist with dressing changes. Patient is noted to have decrease in swelling and overall better hygiene appearance most likely due to this. Patient has benefit from home health child care development specialist. A&D ointment applied to bilateral lower extremity. Hydrogel to heel ulcer with Adaptic covering entire heel. SurePress compression over dressing. To continue this daily per home health care. Discussed offloading ulceration with surgical shoe with offloading insert. Patient brought a surgical shoe today that has heel offloaded. Uses roller aid for ambulation. Patient to follow up in 1 week
[2020-08-08 09:28] VITALS: BP 158/66; PULSE 71; RESP 20; TEMP 36.6; BMI 33.1
--- NOTE | 2020-08-08 11:08 | PN.PCM_ITS ---
(1) Non-pressure chronic ulcer of left heel and midfoot with fat layer exposed Status: Chronic Code(s): L97.422 - Non-pressure chronic ulcer of left heel and midfoot with fat layer exposed (2) Type 2 diabetes mellitus with diabetic polyneuropathy Status: Chronic Code(s): E11.42 - Type 2 diabetes mellitus with diabetic polyneuropathy (3) Tinea unguium Status: Chronic Code(s): B35.1 - Tinea unguium (4) Corns and callosities Status: Chronic Code(s): L84 - Corns and callosities (5) Tobacco abuse Status: Chronic Code(s): Z72.0 - Tobacco use (6) Obesity Status: Chronic Code(s): E66.9 - Obesity, unspecified Type of Wound Date of Service: 08/12/20 Chief Complaint: left heel ulcer. swelling. calluses. Toenail fungus History of Wound: Patient presents for wound to left plantar foot. He is unsure how long it has been there as he can't see or reach his feet. He attributes this largely to his obesity. He relates that his daughter looked at his feet and saw the wound. He relates that his children live over an hour away and he lives alone. He relates some bloody drainage has been noted. He relates his daughter put a gauze over it secured with tape. Patient also complains of swelling to his legs, especially his left. He relates he has smoked since he was 10 years old. He is also diabetic with neuropathy and relates his last hemoglobin A1c was 9.6. He also has hypertension. Patient relates bumping his right foot while ambulating and noticed some blood to his toe a couple days ago. Progress of Wound: Left heel wound stable, skin to lower extremities improved appearance, no significant amount of increased callus tissue noted, new wound to dorsal fourth digit right foot Subjective: Patient seen and examined resting comfortably. Patient denies any new pedal complaints. Patient denies any nausea, fever, chills, chest pain, shortness of breath, cough, streaking, purulence, vomiting. Patient relates new wound to right dorsal foot after stubbing it couple days ago - Physical Exam Vital Signs Temp Pulse Resp BP 97.8 F 71 20 H 158/66 H 08/08/20 09:28 08/08/20 09:28 08/08/20 09:28 08/08/20 09:28 General: Alert, Oriented x3 HEENT: Atraumatic Abdomen: Obese Extremities: No clubbing, No cyanosis, Capillary Refill Less than 3 Seconds, No Calf Tenderness - None none none, Diminished Peripheral Pulses, Edema - Some induration noted but it has improved as well as the skin quality to bilateral lower extremities. Chronic rubor. Skin is noted to be less flaky and has some moderate elasticity to it, - - Nails 1 through 5 bilaterally are thickened elongated crumbly subungual debris discolored and dystrophic noted. Skin: Ulcer/ Wound - Left plantar heel ulceration and right dorsal fourth digit ulceration. No malodor, erythema, purulence, probing to bone, streaking, fluctuation, crepitus, or other signs of infection. Skin is atrophic and hairless. Granular base. No significant buildup of callus to leandra heel ulcer Wound Measurements and Assessment WC - Nurse 1 - General Ulcer Measurement Start: 07/25/20 09:15 Freq: Status: Active Protocol: Activity Type Activity Date Activity User E-Sign Co-Sign Detail Recorded Client Recorded Date Recorded By Document 08/08/20 09:28 DL [id number] 08/08/20 09:36 DL 08/08/20 09:28 Wound Center Nurse 1 [Ulcer Assessment] #1 left heel CLUSTER -Current Size (cm) - Length 2.1 -Current Size (cm) - Width 1.2 -Current Size (cm) - Depth 0.3 -Total Square Cm 2.52 -Photo Taken No -Exudate Amt Medium -Exudate Type Serosanguineous -Wound Margin Thickened -Granulation Amt Small (1-33%) -Granulation Quality [place] -Necrosis Amt Large (67-100%) -Necrotic Tissue Type Adherent Slough -Structure Exposed N/A -Texture (Leandra-wound Skin Appearance) Callus,Scarring -Moisture (Leandra-wound Skin Appearance Dry/Scaly ) -Color (Leandra-wound Skin Appearance) Hemosiderin Staining -Temperature (Leandra-wound Skin No Abnormality Appearance) (Pt Warm) -Tenderness on Palpation (Leandra-wound No Skin Appearance) -Ulcer Cleansing Wound Cleanser -Foul Odor after Cleansing No -Anesthetic Used 4% Lidocaine Solution [Edema Assessment] -Right Calf (cm) 43 -Right Ankle (cm) 26 -Left Calf (cm) 42 -Left Ankle (cm) 23.5 WC - Nurse 2 - General Ulcer CM Notes Start: 07/25/20 09:15 Freq: Status: Active Protocol: Activity Type Activity Date Activity User E-Sign Co-Sign Detail Recorded Client Recorded Date Recorded By Document 08/08/20 09:56 DANIEL [id number] 08/08/20 10:08 DANIEL 08/08/20 09:56 Wound Center Nurse 2 [Procedure/Treatment] 3- right 4th toe -Time 10:06 -Correct Patient Yes -Correct Side, Site, Position Yes -Correct Procedure Yes -Procedure Performed Yes -Type of Procedure Debridement -Clinical Debridement Subcutaneous -Tissue Removed Subcutaneous -Post Debridement (cm) - Length 0.4 -Post Debridement (cm) - Width 0.6 -Post Debridement (cm) - Depth 0.1 -Total Square (Post) (cm) 0.24 -Area of Debridement (cm) - Length 0.4 -Area of Debridement (cm) - Width 0.6 -Total Square (Area) (cm) 0.24 -Tunneling No -Undermining/Tunneling No -Circular Undermining No -Wound/Ulcer Outcome Not Healed -Ulcer Cleansing Rinsed/ Irrigated with Saline -Foul Odor after Cleansing No -Bioengineered Tissue No -Bleeding Controlled with Pressure -Offloading No -Treatment Response Procedure Tolerated Well -Debridement - Subq, 20sq cm No #1 left heel CLUSTER -Time 10:00 -Correct Patient Yes -Correct Side, Site, Position Yes -Correct Procedure Yes -Procedure Performed Yes -Type of Procedure Debridement -Clinical Debridement Subcutaneous -Tissue Removed Subcutaneous -Post Debridement (cm) - Length 2 -Post Debridement (cm) - Width 1.2 -Post Debridement (cm) - Depth 0.3 -Total Square (Post) (cm) 2.4 -Area of Debridement (cm) - Length 2 -Area of Debridement (cm) - Width 1.2 -Total Square (Area) (cm) 2.4 -Tunneling No -Undermining/Tunneling No -Circular Undermining No -Wound/Ulcer Outcome Not Healed -Ulcer Cleansing Rinsed/ Irrigated with Saline -Foul Odor after Cleansing No -Bioengineered Tissue No -Bleeding Controlled with Pressure -Offloading Yes -Type of Offloading Surgical Shoe -Treatment Response Procedure Tolerated Well -Debridement - Subq, 1st 20sq cm Yes [See Physician Procedure note for Specifics] Pain Scale: 0-10 Numeric [Pain] -Is Patient Pain Free? Yes - Nurse 3 - General Ulcer D/C NN Start: 07/25/20 09:15 Freq: Status: Active Protocol: Activity Type Activity Date Activity User E-Sign Co-Sign Detail Recorded Client Recorded Date Recorded By Document 08/08/20 10:16 DL [id number] 08/08/20 10:18 DL 08/08/20 10:16 Wound Care Nurse 3 [Wound Dressing] 3- right 4th toe -Ulcer Cleansing Rinsed/ Irrigated with Saline -Foul Odor after Cleansing No -Primary Dressing Applied C Hydrogel ($), NonAdherent Contact Layer -Primary Dressing Covered/Secured Dry Gauze & with Roll Gauze, Secured with Tape #1 left heel CLUSTER -Ulcer Cleansing Rinsed/ Irrigated with Saline -Foul Odor after Cleansing No -Primary Dressing Applied NonAdherent Contact Layer -Other Dressing hydrogel -Primary Dressing Covered/Secured Dry Gauze & with Roll Gauze, Secured with Tape [Compression Applied] Left -Size of Tubigrip Used Size D -Other surepress [Post Procedure Tolerated] -Treatment Response Procedure Tolerated Well Pain Scale: 0-10 Numeric [Pain] -Is Patient Pain Free? Yes - Visit Discharge [Visit Discharge Information] -Discharge Condition Stable -Ambulatory Status Ambulatory -Transportation Private Auto [Facility Notification] -Facility Type Home Health -Orders Sent Yes Musculoskeletal: Muscle Wasting, Tenderness - To heel ulceration Neurological: - - Decreased epicritic sensation noted Psych/Mental Status: Normal Affect, Appropriate Debridement Note Post-Debridement Measurements/Treatment - Nurse 2 - General Ulcer CM Notes Start: 07/25/20 09:15 Freq: Status: Active Protocol: Activity Type Activity Date Activity User E-Sign Co-Sign Detail Recorded Client Recorded Date Recorded By Document 07/25/20 09:40 DANIEL [id number] 07/25/20 10:02 JF Document 08/01/20 09:51 DANIEL [id number] 08/01/20 09:55 JF Document 08/08/20 09:56 JF [id number] 08/08/20 10:08 JF 07/25/20 08/01/20 08/08/20 09:40 09:51 09:56 Wound Center Nurse 2 3- right 4th toe -Time 10:06 -Correct Patient Yes -Correct Side, Site, Position Yes -Correct Procedure Yes -Procedure Performed Yes -Type of Procedure Debridement -Clinical Debridement Subcutaneous -Tissue Removed Subcutaneous -Post Debridement (cm) - Length 0.4 -Post Debridement (cm) - Width 0.6 -Post Debridement (cm) - Depth 0.1 -Total Square (Post) (cm) 0.24 -Area of Debridement (cm) - Length 0.4 -Area of Debridement (cm) - Width 0.6 -Total Square (Area) (cm) 0.24 -Tunneling No -Undermining/Tunneling No -Circular Undermining No -Wound/Ulcer Outcome Not Healed -Ulcer Cleansing Rinsed/ Irrigated with Saline -Foul Odor after Cleansing No -Bioengineered Tissue No -Bleeding Controlled with Pressure -Offloading No -Treatment Response Procedure Tolerated Well -Debridement - Subq, 1st 20sq cm No #1 left heel CLUSTER -Time 09:40 09:54 10:00 -Correct Patient Yes Yes Yes -Correct Side, Site, Position Yes Yes Yes -Correct Procedure Yes Yes Yes -Procedure Performed Yes Yes Yes -Type of Procedure Debridement Debridement Debridement -Clinical Debridement Subcutaneous Subcutaneous Subcutaneous -Tissue Removed Subcutaneous Subcutaneous Subcutaneous -Post Debridement (cm) - Length 2 2.3 2 -Post Debridement (cm) - Width 0.9 0.8 1.2 -Post Debridement (cm) - Depth 0.3 0.3 0.3 -Total Square (Post) (cm) 1.8 1.84 2.4 -Area of Debridement (cm) - Length 2 2.3 2 -Area of Debridement (cm) - Width 0.9 0.8 1.2 -Total Square (Area) (cm) 1.8 1.84 2.4 -Tunneling No No No -Undermining/Tunneling No No -Circular Undermining No No No -Wound/Ulcer Outcome Not Healed Not Healed Not Healed -Ulcer Cleansing Rinsed/ Rinsed/ Rinsed/ Irrigated with Irrigated with Irrigated with Saline Saline Saline -Foul Odor after Cleansing No No No -Bioengineered Tissue No No No -Bleeding Controlled with Pressure Pressure Pressure -Offloading Yes No Yes -Type of Offloading Surgical Shoe Surgical Shoe -Treatment Response Procedure Procedure Procedure Tolerated Well Tolerated Well Tolerated Well -Debridement - Subq, 1st 20sq cm Yes Yes Yes Pain Scale: 0-10 Numeric Is Patient Pain Free? Yes Yes Yes WC - Nurse 3 - General Ulcer D/C NN Start: 07/25/20 09:15 Freq: Status: Active Protocol: Activity Type Activity Date Activity User E-Sign Co-Sign Detail Recorded Client Recorded Date Recorded By Document 07/25/20 10:02 JF [id number] 07/25/20 10:03 JF Document 08/01/20 10:20 DL [id number] 08/01/20 10:23 DL Document 08/01/20 11:01 DL [id number] 08/01/20 11:02 DL Document 08/08/20 10:16 DL [id number] 08/08/20 10:18 DL 07/25/20 08/01/20 08/01/20 10:02 10:20 11:01 Wound Care Nurse 3 3- right 4th toe -Ulcer Cleansing -Foul Odor after Cleansing -Primary Dressing Applied -Primary Dressing Covered/Secured with #1 left heel CLUSTER -Ulcer Cleansing Rinsed/ Rinsed/ Rinsed/ Irrigated with Irrigated with Irrigated with Saline Saline Saline -Foul Odor after Cleansing No No No -Primary Dressing Applied C Hydrogel ($), C Hydrogel ($), C Hydrogel ($), NonAdherent NonAdherent NonAdherent Contact Layer Contact Layer Contact Layer -Other Dressing -Primary Dressing Covered/Secured with Dry Gauze & Dry Gauze & Dry Gauze & Roll Gauze, Roll Gauze, Roll Gauze, Secured with Secured with Secured with Tape Tape Tape Left -Compression Wrap Surepress ($) Surepress ($) -Size of Tubigrip Used -Other Treatment Response Procedure Tolerated Well Pain Scale: 0-10 Numeric Is Patient Pain Free? Yes Yes Yes - Visit Discharge Discharge Condition Stable Stable Stable Ambulatory Status Walker Ambulatory, Walker Walker Transportation Private Auto Private Auto Medication Reconcilliation completed & Yes provided to patient/care provider Clinical Summary of Care Provided Yes Facility Type Home Health Orders Sent Yes 08/08/20 10:16 Wound Care Nurse 3 3- right 4th toe -Ulcer Cleansing Rinsed/ Irrigated with Saline -Foul Odor after Cleansing No -Primary Dressing Applied C Hydrogel ($), NonAdherent Contact Layer -Primary Dressing Covered/Secured with Dry Gauze & Roll Gauze, Secured with Tape #1 left heel CLUSTER -Ulcer Cleansing Rinsed/ Irrigated with Saline -Foul Odor after Cleansing No -Primary Dressing Applied NonAdherent Contact Layer -Other Dressing hydrogel -Primary Dressing Covered/Secured with Dry Gauze & Roll Gauze, Secured with Tape Left -Compression Wrap -Size of Tubigrip Used Size D -Other surepress Treatment Response Procedure Tolerated Well Pain Scale: 0-10 Numeric Is Patient Pain Free? Yes WC - Visit Discharge Discharge Condition Stable Ambulatory Status Ambulatory Transportation Private Auto Medication Reconcilliation completed & provided to patient/care provider Clinical Summary of Care Provided Facility Type Home Health Orders Sent Yes Wound debrided: Heel Laterality: Left Wound Grade/Stage: Acevedo 1 Type of Debridement: Excisional debridement Anesthesia Used: 4% Lidocaine Solution Depth: in the subcutaneous layer Percentage of wound debrided: 100 Instrument Used: 5mm curette Tissue Removed: Tissue removed includes fibrous, devitalized, biofilm, and slough tissue Severity: Fat Layer Exposed Amount of bleeding with debridement: Mild Bleeding Controlled with: Pressure Patient tolerated procedure well - Additional Wound Wound debrided: Dorsal fourth digit Laterality: Right Wound Grade/Stage: Acevedo 1 Anesthesia Used: 4% Lidocaine Solution Depth: in the subcutaneous layer Percentage of wound debrided: 100 Instrument Used: 5mm curette Tissue Removed: Tissue removed includes fibrous, devitalized, biofilm, and slough tissue Severity: Fat Layer Exposed Amount of bleeding with debridement: Mild Bleeding Controlled with: Pressure Patient tolerated procedure: Patient tolerated procedure well Assessment/Plan Active Problems Corns and callosities (Chronic) Type 2 diabetes mellitus with diabetic polyneuropathy (Chronic) Non-pressure chronic ulcer of left heel and midfoot with fat layer exposed (Chronic) Tobacco abuse (Chronic) Obesity (Chronic) Tinea unguium (Chronic) Assessment: left heel ulcer. left foot callus with fissuring. New ulceration dorsal fourth right digit. diabetes with neuropathy. obesity. tobacco abuse Plan: Patient seen and examined. New ulceration noted to dorsal right fourth digit. Patient states that he stubbed his toe while walking and noticed some blood. Patient is obese and relates that he can not reach his feet and hasn't been able to take proper care of them. Patient lives alone, and his children are over an hour away. His daughter saw the wound to his heel and got him to come to wound care center. Ulcerations were sharply debrided after verbal consent was obtained from the patient. Was done without incident. Discussed importance of cleaning and maintaining foot both to prevent infection as well as to prevent future wounds. Discussed he is at higher risk for wounds due to his neuropathy, hyperglycemia, swelling, and tabacco abuse. Discussed importance of smoking cessation, blood sugar control, weight management, offloading, proper nutrition, and hygeine to optimize healing potential. Arterial and venous studies were reviewed. Showing likely adequate perfusion for healing. Patient relates he has been smoking since he was 10 years old. Discussed impact smoking has on his vessels as well as impact on wound healing. Patient relates that he has had the swelling for a while and can't wear compression socks as he can't reach to put them on. He also denies being on a water pill. Patient physically is unable to reach his feet and thus is unable to do his own dressing changes. He has no family who could do this for him as he lives alone and his kids are over an hour away. Patient was able to obtain daily home health care aides to assist with dressing changes. Patient is noted to have decrease in swelling and overall better hygiene appearance most likely due to this. Patient has benefit from home health intensive care medicine specialist. A&D ointment applied to bilateral lower extremity. Hydrogel to heel ulcer with Adaptic covering entire heel and fourth digit ulcer. SurePress compression over dressing. To continue this daily per home health care. Discussed offloading ulceration with surgical shoe with offloading insert. We will proceed with palliative care, as well as monitoring. Foot care and footgear has been discussed[place] [id number] [place] toenails, with a nail nipper and both length and thickness by angling nail nippers. This was done without incident. Patient to follow up in 1 week. The problems addressed require a low medical decision making level which includes two or more minor problems, a stable chronic illness, or an acute uncomplicated illness or injury.
[2020-08-15 09:40] VITALS: BP 142/65; PULSE 82; TEMP 36.4; BMI 33.1
--- NOTE | 2020-08-15 10:33 | PN.PCM_ITS ---
(1) Non-pressure chronic ulcer of left heel and midfoot with fat layer exposed Status: Chronic Code(s): L97.422 - Non-pressure chronic ulcer of left heel and midfoot with fat layer exposed (2) Type 2 diabetes mellitus with diabetic polyneuropathy Status: Chronic Code(s): E11.42 - Type 2 diabetes mellitus with diabetic polyneuropathy (3) Tinea unguium Status: Chronic Code(s): B35.1 - Tinea unguium (4) Corns and callosities Status: Chronic Code(s): L84 - Corns and callosities (5) Tobacco abuse Status: Chronic Code(s): Z72.0 - Tobacco use (6) Obesity Status: Chronic Code(s): E66.9 - Obesity, unspecified Type of Wound Date of Service: 08/15/20 Chief Complaint: left heel ulcer. swelling. calluses. Toenail fungus History of Wound: Patient presents for wound to left plantar foot. He is unsure how long it has been there as he can't see or reach his feet. He attributes this largely to his obesity. He relates that his daughter looked at his feet and saw the wound. He relates that his children live over an hour away and he lives alone. He relates some bloody drainage has been noted. He relates his daughter put a gauze over it secured with tape. Patient also complains of swelling to his legs, especially his left. He relates he has smoked since he was 10 years old. He is also diabetic with neuropathy and relates his last hemoglobin A1c was 9.6. He also has hypertension. Patient relates bumping his right foot while ambulating and noticed some blood to his toe a couple days ago. Progress of Wound: Left heel wound stable,. wound to dorsal fourth digit right foot improved Subjective: Patient seen and examined resting comfortably. Patient denies any new pedal complaints. Patient denies any nausea, fever, chills, chest pain, shortness of breath, cough, streaking, purulence, vomiting. - Physical Exam Vital Signs Temp Pulse Resp BP 97.6 F L 82 20 H 142/65 H 08/15/20 09:40 08/15/20 09:40 08/08/20 09:28 08/15/20 09:40 General: Alert, Oriented x3 HEENT: Atraumatic Abdomen: Obese Extremities: No clubbing, No cyanosis, Capillary Refill Less than 3 Seconds, No Calf Tenderness, Diminished Peripheral Pulses, Edema Skin: Ulcer/ Wound - Left plantar heel and right fourth toe ulceration. No malodor, erythema, purulence, probing to bone, streaking, fluctuation, crepitus, or other signs of infection. Skin is atrophic and hairless. Granular base there is pain to palpation to ulceration site and periulceration site, - - Skin to legs are more hydrated in appearance without flaky patchy skin noted. Bilateral plantar feet have copious amounts of callus tissue noted especially to heel with multiple previous debridements noted controlling severity of callus. Chronic rubor changes to skin Wound Measurements and Assessment WC - Nurse 1 - General Ulcer Measurement Start: 07/25/20 09:15 Freq: Status: Active Protocol: Activity Type Activity Date Activity User E-Sign Co-Sign Detail Recorded Client Recorded Date Recorded By Document 08/15/20 09:40 [email or web address] [id number] 08/15/20 09:50 KR 08/15/20 09:40 Wound Center Nurse 1 [Ulcer Assessment] 3- right 4th toe -Current Size (cm) - Length 0.3 -Current Size (cm) - Width 0.3 -Current Size (cm) - Depth 0.1 -Total Square Cm 0.09 -Exudate Amt Medium -Exudate Type Serosanguineous -Wound Margin Distinct, Outline Attached -Necrosis Amt Large (67-100%) -Necrotic Tissue Type Adherent Slough -Texture (Margaret-wound Skin Appearance) Assessed, Scarring -Moisture (Margaret-wound Skin Appearance Assessed,Dry/ ) Scaly -Color (Margaret-wound Skin Appearance) Assessed, Hemosiderin Staining -Temperature (Margaret-wound Skin No Abnormality Appearance) (Pt Warm) -Tenderness on Palpation (Margaret-wound No Skin Appearance) -Ulcer Cleansing soap and water -Foul Odor after Cleansing No -Anesthetic Used 4% Lidocaine Solution #1 left heel CLUSTER -Current Size (cm) - Length 1.8 -Current Size (cm) - Width 1.3 -Current Size (cm) - Depth 0.2 -Total Square Cm 2.34 -Exudate Amt Medium -Exudate Type Serosanguineous -Wound Margin Distinct, Outline Attached -Granulation Amt Medium (34-66%) -Granulation Quality Red -Necrosis Amt Medium (34-66%) -Necrotic Tissue Type Adherent Slough -Texture (Margaret-wound Skin Appearance) Assessed, Scarring -Moisture (Margaret-wound Skin Appearance No Abnormality, ) Assessed -Color (Margaret-wound Skin Appearance) No Abnormality, Assessed -Temperature (Margaret-wound Skin No Abnormality Appearance) (Pt Warm) -Tenderness on Palpation (Margaret-wound No Skin Appearance) -Ulcer Cleansing Rinsed/ Irrigated with Saline -Foul Odor after Cleansing No -Anesthetic Used 4% Lidocaine Solution WC - Nurse 2 - General Ulcer CM Notes Start: 07/25/20 09:15 Freq: Status: Active Protocol: Activity Type Activity Date Activity User E-Sign Co-Sign Detail Recorded Client Recorded Date Recorded By Document 08/15/20 10:18 [email or web address] [id number] 08/15/20 10:32 DANIEL 08/15/20 10:18 Wound Center Nurse 2 [Procedure/Treatment] 3- right 4th toe -Time 10:27 -Correct Patient Yes -Correct Side, Site, Position Yes -Correct Procedure Yes -Procedure Performed Yes -Type of Procedure Debridement -Clinical Debridement Subcutaneous -Tissue Removed Subcutaneous -Post Debridement (cm) - Length 0.3 -Post Debridement (cm) - Width 0.3 -Post Debridement (cm) - Depth 0.1 -Total Square (Post) (cm) 0.09 -Area of Debridement (cm) - Length 0.3 -Area of Debridement (cm) - Width 0.3 -Total Square (Area) (cm) 0.09 -Tunneling No -Undermining/Tunneling No -Circular Undermining No -Wound/Ulcer Outcome Not Healed -Ulcer Cleansing Rinsed/ Irrigated with Saline -Foul Odor after Cleansing No -Bioengineered Tissue No -Bleeding Controlled with Pressure -Offloading No -Treatment Response Procedure Tolerated Well -Debridement - Subq, 1st 20sq cm Yes #1 left heel CLUSTER -Time 10:27 -Correct Patient Yes -Correct Side, Site, Position Yes -Correct Procedure Yes -Procedure Performed Yes -Type of Procedure Debridement -Clinical Debridement Subcutaneous -Tissue Removed Subcutaneous -Post Debridement (cm) - Length 2 -Post Debridement (cm) - Width 1.3 -Post Debridement (cm) - Depth 0.2 -Total Square (Post) (cm) 2.6 -Area of Debridement (cm) - Length 2 -Area of Debridement (cm) - Width 1.3 -Total Square (Area) (cm) 2.6 -Tunneling No -Undermining/Tunneling No -Circular Undermining No -Wound/Ulcer Outcome Not Healed -Ulcer Cleansing Rinsed/ Irrigated with Saline -Foul Odor after Cleansing No -Bioengineered Tissue No -Bleeding Controlled with Pressure -Offloading Yes -Type of Offloading Total Contact Cast (TCC) - Left ($) -Treatment Response Procedure Tolerated Well -Debridement - Subq, 1st 20sq cm No [See Physician Procedure note for Specifics] Pain Scale: 0-10 Numeric [Pain] -Is Patient Pain Free? Yes Musculoskeletal: Muscle Wasting, Tenderness - To left plantar heel Neurological: - - Decrease in epicritic sensation Psych/Mental Status: Normal Affect, Appropriate Debridement Note Post-Debridement Measurements/Treatment WC - Nurse 2 - General Ulcer CM Notes Start: 07/25/20 09:15 Freq: Status: Active Protocol: Activity Type Activity Date Activity User E-Sign Co-Sign Detail Recorded Client Recorded Date Recorded By Document 07/25/20 09:40 [id number] 07/25/20 10:02 Document 08/01/20 09:51 [id number] 08/01/20 09:55 Document 08/08/20 09:56 [id number] 08/08/20 10:08 Document 08/15/20 10:18 [id number] 08/15/20 10:32 07/25/20 08/01/20 08/08/20 09:40 09:51 09:56 Wound Center Nurse 2 3- right 4th toe -Time 10:06 -Correct Patient Yes -Correct Side, Site, Position Yes -Correct Procedure Yes -Procedure Performed Yes -Type of Procedure Debridement -Clinical Debridement Subcutaneous -Tissue Removed Subcutaneous -Post Debridement (cm) - Length 0.4 -Post Debridement (cm) - Width 0.6 -Post Debridement (cm) - Depth 0.1 -Total Square (Post) (cm) 0.24 -Area of Debridement (cm) - Length 0.4 -Area of Debridement (cm) - Width 0.6 -Total Square (Area) (cm) 0.24 -Tunneling No -Undermining/Tunneling No -Circular Undermining No -Wound/Ulcer Outcome Not Healed -Ulcer Cleansing Rinsed/ Irrigated with Saline -Foul Odor after Cleansing No -Bioengineered Tissue No -Bleeding Controlled with Pressure -Offloading No -Treatment Response Procedure Tolerated Well -Debridement - Subq, 1st 20sq cm No #1 left heel CLUSTER -Time 09:40 09:54 10:00 -Correct Patient Yes Yes Yes -Correct Side, Site, Position Yes Yes Yes -Correct Procedure Yes Yes Yes -Procedure Performed Yes Yes Yes -Type of Procedure Debridement Debridement Debridement -Clinical Debridement Subcutaneous Subcutaneous Subcutaneous -Tissue Removed Subcutaneous Subcutaneous Subcutaneous -Post Debridement (cm) - Length 2 2.3 2 -Post Debridement (cm) - Width 0.9 0.8 1.2 -Post Debridement (cm) - Depth 0.3 0.3 0.3 -Total Square (Post) (cm) 1.8 1.84 2.4 -Area of Debridement (cm) - Length 2 2.3 2 -Area of Debridement (cm) - Width 0.9 0.8 1.2 -Total Square (Area) (cm) 1.8 1.84 2.4 -Tunneling No No No -Undermining/Tunneling No No -Circular Undermining No No No -Wound/Ulcer Outcome Not Healed Not Healed Not Healed -Ulcer Cleansing Rinsed/ Rinsed/ Rinsed/ Irrigated with Irrigated with Irrigated with Saline Saline Saline -Foul Odor after Cleansing No No No -Bioengineered Tissue No No No -Bleeding Controlled with Pressure Pressure Pressure -Offloading Yes No Yes -Type of Offloading Surgical Shoe Surgical Shoe -Treatment Response Procedure Procedure Procedure Tolerated Well Tolerated Well Tolerated Well -Debridement - Subq, 1st 20sq cm Yes Yes Yes Pain Scale: 0-10 Numeric Is Patient Pain Free? Yes Yes Yes 08/15/20 10:18 Wound Center Nurse 2 3- right 4th toe -Time 10:27 -Correct Patient Yes -Correct Side, Site, Position Yes -Correct Procedure Yes -Procedure Performed Yes -Type of Procedure Debridement -Clinical Debridement Subcutaneous -Tissue Removed Subcutaneous -Post Debridement (cm) - Length 0.3 -Post Debridement (cm) - Width 0.3 -Post Debridement (cm) - Depth 0.1 -Total Square (Post) (cm) 0.09 -Area of Debridement (cm) - Length 0.3 -Area of Debridement (cm) - Width 0.3 -Total Square (Area) (cm) 0.09 -Tunneling No -Undermining/Tunneling No -Circular Undermining No -Wound/Ulcer Outcome Not Healed -Ulcer Cleansing Rinsed/ Irrigated with Saline -Foul Odor after Cleansing No -Bioengineered Tissue No -Bleeding Controlled with Pressure -Offloading No -Treatment Response Procedure Tolerated Well -Debridement - Subq, 1st 20sq cm Yes #1 left heel CLUSTER -Time 10:27 -Correct Patient Yes -Correct Side, Site, Position Yes -Correct Procedure Yes -Procedure Performed Yes -Type of Procedure Debridement -Clinical Debridement Subcutaneous -Tissue Removed Subcutaneous -Post Debridement (cm) - Length 2 -Post Debridement (cm) - Width 1.3 -Post Debridement (cm) - Depth 0.2 -Total Square (Post) (cm) 2.6 -Area of Debridement (cm) - Length 2 -Area of Debridement (cm) - Width 1.3 -Total Square (Area) (cm) 2.6 -Tunneling No -Undermining/Tunneling No -Circular Undermining No -Wound/Ulcer Outcome Not Healed -Ulcer Cleansing Rinsed/ Irrigated with Saline -Foul Odor after Cleansing No -Bioengineered Tissue No -Bleeding Controlled with Pressure -Offloading Yes -Type of Offloading Total Contact Cast (TCC) - Left ($) -Treatment Response Procedure Tolerated Well -Debridement - Subq, 1st 20sq cm No Pain Scale: 0-10 Numeric Is Patient Pain Free? Yes WC - Nurse 3 - General Ulcer D/C NN Start: 07/25/20 09:15 Freq: Status: Active Protocol: Activity Type Activity Date Activity User E-Sign Co-Sign Detail Recorded Client Recorded Date Recorded By Document 07/25/20 10:02 [id number] 07/25/20 10:03 Document 08/01/20 10:20 DL [id number] 08/01/20 10:23 DL Document 08/01/20 11:01 DL [id number] 08/01/20 11:02 DL Document 08/08/20 10:16 DL [id number] 08/08/20 10:18 DL 07/25/20 08/01/20 08/01/20 10:02 10:20 11:01 Wound Care Nurse 3 3- right 4th toe -Ulcer Cleansing -Foul Odor after Cleansing -Primary Dressing Applied -Primary Dressing Covered/Secured with #1 left heel CLUSTER -Ulcer Cleansing Rinsed/ Rinsed/ Rinsed/ Irrigated with Irrigated with Irrigated with Saline Saline Saline -Foul Odor after Cleansing No No No -Primary Dressing Applied C Hydrogel ($), C Hydrogel ($), C Hydrogel ($), NonAdherent NonAdherent NonAdherent Contact Layer Contact Layer Contact Layer -Other Dressing -Primary Dressing Covered/Secured with Dry Gauze & Dry Gauze & Dry Gauze & Roll Gauze, Roll Gauze, Roll Gauze, Secured with Secured with Secured with Tape Tape Tape Left -Compression Wrap Surepress ($) Surepress ($) -Size of Tubigrip Used -Other Treatment Response Procedure Tolerated Well Pain Scale: 0-10 Numeric Is Patient Pain Free? Yes Yes Yes WC - Visit Discharge Discharge Condition Stable Stable Stable Ambulatory Status [facility], [facility] Transportation Private Auto Private Auto Medication Reconcilliation completed & Yes provided to patient/care provider Clinical Summary of Care Provided Yes Facility Type Home Health Orders Sent Yes 08/08/20 10:16 Wound Care Nurse 3 3- right 4th toe -Ulcer Cleansing Rinsed/ Irrigated with Saline -Foul Odor after Cleansing No -Primary Dressing Applied C Hydrogel ($), NonAdherent Contact Layer -Primary Dressing Covered/Secured with Dry Gauze & Roll Gauze, Secured with Tape #1 left heel CLUSTER -Ulcer Cleansing Rinsed/ Irrigated with Saline -Foul Odor after Cleansing No -Primary Dressing Applied NonAdherent Contact Layer -Other Dressing hydrogel -Primary Dressing Covered/Secured with Dry Gauze & Roll Gauze, Secured with Tape Left -Compression Wrap -Size of Tubigrip Used Size D -Other surepress Treatment Response Procedure Tolerated Well Pain Scale: 0-10 Numeric Is Patient Pain Free? Yes WC - Visit Discharge Discharge Condition Stable Ambulatory Status Ambulatory Transportation Private Auto Medication Reconcilliation completed & provided to patient/care provider Clinical Summary of Care Provided Facility Type Home Health Orders Sent Yes Wound debrided: heel Laterality: Left Wound Grade/Stage: Acevedo 1 Type of Debridement: Excisional debridement Anesthesia Used: 4% Lidocaine Solution Depth: in the subcutaneous layer Percentage of wound debrided: 100 Instrument Used: 3mm curette, #15 blade Tissue Removed: Tissue removed includes fibrous, devitalized, biofilm, callus,s russell tissue Severity: Fat Layer Exposed Amount of bleeding with debridement: Mild Bleeding Controlled with: Pressure Patient tolerated procedure well - Additional Wound Wound debrided: Fourth digit dorsal Laterality: Right Wound Grade/Stage: Acevedo 1 Type of Debridement: Excisional debridement Anesthesia Used: 4% Lidocaine Solution Depth: in the subcutaneous layer Percentage of wound debrided: 100 Instrument Used: 3mm curette Tissue Removed: Tissue removed includes fibrous, devitalized, biofilm, and slough tissue Severity: Fat Layer Exposed Amount of bleeding with debridement: Mild Bleeding Controlled with: Pressure Patient tolerated procedure: Patient tolerated procedure well Assessment/Plan Active Problems Corns and callosities (Chronic) Type 2 diabetes mellitus with diabetic polyneuropathy (Chronic) Non-pressure chronic ulcer of left heel and midfoot with fat layer exposed (Chronic) Tobacco abuse (Chronic) Obesity (Chronic) Tinea unguium (Chronic) Assessment: left heel ulcer. Left heel pain. left foot callus with fissuring. ulceration dorsal fourth right digit. diabetes with neuropathy. obesity. tobacco abuse Plan: Patient seen and examined. Patient is obese and relates that he can not reach his feet and hasn't been able to take proper care of them. Patient lives alone, and his children are over an hour away. His daughter saw the wound to his heel and got him to come to wound care center. Ulcerations were sharply debrided after verbal consent was obtained from the patient. Was done without incident. Continued debridement of surrounding callus tissue provided. Discussed importance of cleaning and maintaining foot both to prevent infection as well as to prevent future wounds. Discussed he is at higher risk for wounds due to his neuropathy, hyperglycemia, swelling, and tabacco abuse. Discussed importance of smoking cessation, blood sugar control, weight management, offloading, proper nutrition, and hygeine to optimize healing potential. Arterial and venous studies were reviewed. Showing likely adequate perfusion for healing. Patient relates he has been smoking since he was 10 years old. Discussed impact smoking has on his vessels as well as impact on wound healing. Patient relates that he has had the swelling for a while and can't wear compression socks as he can't reach to put them on. He also denies being on a water pill. Patient physically is unable to reach his feet and thus is unable to do his own dressing changes. He has no family who could do this for him as he lives alone and his kids are over an hour away. Patient was able to obtain daily home health care aides to assist with dressing changes. Patient is noted to have decrease in swelling and overall better hygiene appearance most likely due to this. Patient has benefit from home health assurance services manager health care. A&D ointment applied to bilateral lower extremity. Hydrogel to heel ulcer with Adaptic covering entire heel and fourth digit ulcer. SurePress compression over dressing. There is no the patient has not been receiving SurePress compression via home health care. We will reiterate this and our orders to them. To continue this daily per home health care. Discussed offloading ulceration with surgical shoe with offloading insert. Patient presents today and tennis shoes. Patient has continued pain to left foot upon ambulation. Patient has been unsuccessful in being able to significantly offload the area. Discussed patient to try a total contact cast in order to better offload the area and hopefully control his pain. Patient agreed to proceed with this plan. Patient provided verbal consent for a total contact cast left lower extremity. This was applied in a well padded neutral position according standard protocol. The patient tolerated this well. Patient was also advised to keep this clean, dry, and intact until follow-up next week. Patient is to follow-up later this week for a check on total contact cast as it has since first one. Patient to follow up in 1 week
== END 2020-08-16 23:59 ==
LOC: WC 09:30
PROVIDERS: Referring Provider Podiatrist Foot & Ankle Surgery; Visit Provider Podiatrist Foot & Ankle Surgery
DX: E11.621 Type 2 diabetes mellitus with foot ulcer (principal); E11.42 Type 2 diabetes mellitus with diabetic polyneuropathy; L97.422 Non-pressure chronic ulcer of left heel and midfoot with fat layer exposed; B35.1 Tinea unguium; L84 Corns and callosities; E66.9 Obesity, unspecified; M79.89 Other specified soft tissue disorders; F17.200 Nicotine dependence, unspecified, uncomplicated; I10 Essential (primary) hypertension; L97.512 Non-pressure chronic ulcer of other part of right foot with fat layer exposed
CPT/HCPCS: 11042; 29445; 93923; 93970

== ENCOUNTER 2020-08-17 15:01 | Emergency (ER) | payer MEDICARE, BC, SELFPAY ==
[2020-08-17 15:01] VITALS: BP 157/74; PULSE 79; RESP 16; TEMP 36.8; O2SAT 94; BMI 33.7
--- NOTE | 2020-08-17 15:16 | CT_ITS ---
STUDY: CT BRAIN WITHOUT CONTRAST REASON FOR EXAM: Male, 64 years old. Trauma RADIATION DOSAGE (If Supplied By Facility): CTDIvol = ( 44.99 ) mGy, DLP = ( 829.85 ) mGycm TECHNIQUE: Transaxial CT imaging of the brain was performed without administration of intravenous contrast material. Individualized dose optimization techniques were used for this CT. COMPARISON: No relevant priors. FINDINGS: Normal soft tissue structures. Normal calvarium. There is mild cerebral atrophy with widening of the extra-axial spaces and ventricular dilatation. Normal white matter tracts of the cerebral hemispheres. Normal basal ganglia and thalami. Normal brainstem. Normal cerebellum. There is no intracranial hemorrhage. There are no findings of an acute ischemic infarction. Normal visualized paranasal sinuses. CT/Brain/Head without Contrast IMPRESSION: Chronic involutional changes of the brain. Electronically Signed: James Bell MD at 15:34 EDT , Service support ,
--- NOTE | 2020-08-17 15:17 | ED.DCSUM_ITS ---
- ER Visit Summary Date of Service: 08/17/20 Chief Complaint: [Head and facial injury] History of Present Illness: The patient is a 64 M [presents to the emergency department after sustaining an injury to his head and face. Patient states that he had gone to take some measurements because he was building a chicken coop and he has been tearing down some shelving. Patient states that some metal pipes rolled off the shelving and fell about 3 or 4 feet striking him in the face. He thinks he may have a loss consciousness but is not sure how long. Patient states that he initially went out about 10 AM. Patient states that he was on the ground at least till 2 PM but he remembers waking up at times and try to get up and could not so he is not sure if he fell asleep for a while. Patient not anticoagulated. He does complain of a headache. He denies any neck pain. He denies chest pain or shortness of breath. Patient drove himself to the emergency department. Patient is up-to-date on tetanus. Patient does have history of diabetes and high cholesterol and obesity.] Physical Examination: [HEENT-PERRLA, EOMI. Cranial nerves II through XII grossly intact. TMs clear. Mucous membranes moist. No adenopathy. Patient has a superficial avulsion measuring approximately a centimeter in diameter over the bridge of the nose. No bleeding from the inside of the nose noted. No obvious deformity noted. No C-spine tenderness on palpation. Patient has normal active range of motion is painless. Cardiovascular-regular rate and rhythm without murmur or ectopy Lungs-clear to auscultation, chest wall stable without crepitus or subcu emphysema Abdomen-normoactive bowel sounds, soft, nontender, no rebound or rigidity, no peritoneal signs. Extremities-intact ?4, normal range of motion, normal pulses, atraumatic] Test Results: [CT scan of the brain was obtained which was read by radiology as chronic involutional changes without evidence of acute trauma such as intracranial hemorrhage or skull fracture.] Emergency Department Course and Treatment: [Patient had the wound to the bridge of the nose clean and dressed.] Treatment Plan: [Patient to follow-up with primary care physician in 3 to 5 days.] Disposition: [Discharged home in stable condition] Impression: [Closed head injury Nasal contusion Skin avulsion to bridge of nose] This note was generated with [employer] dictation software. It may contain incorrect words, spelling, and punctuation that were not noted in review of the chart prior to signing ED Disposition - Plan for ED Patient: Referrals: NOT,DEFINED [NON-STAFF] -
--- NOTE | 2020-08-17 16:00 | ED.DEP ---
ED Disposition - Plan for ED Patient: Instructions: ED Skin Avulsion, ED Head Injury (Adult), ED Nasal Contusion Referrals: NOT,DEFINED [NON-STAFF] - 3-5 Days
[2020-08-17 16:11] VITALS: BP 142/86; PULSE 77; RESP 16; O2SAT 94
== END 2020-08-17 16:12 | disposition home or self-care (01) ==
PROVIDERS: Emergency Provider Emergency Medicine
DX: S09.90XA Unspecified injury of head, initial encounter (principal); S00.33XA Contusion of nose, initial encounter; F17.200 Nicotine dependence, unspecified, uncomplicated; E11.9 Type 2 diabetes mellitus without complications; E78.00 Pure hypercholesterolemia, unspecified; L97.429 Non-pressure chronic ulcer of left heel and midfoot with unspecified severity; L97.519 Non-pressure chronic ulcer of other part of right foot with unspecified severity; Y29.XXXA Contact with blunt object, undetermined intent, initial encounter; Z79.4 Long term (current) use of insulin; Z79.899 Other long term (current) drug therapy
CPT/HCPCS: 29445; 70450; 99282

== ENCOUNTER 2020-08-28 10:01 | Inpatient (IN) | payer MEDICARE, BC, SELFPAY ==
[2020-08-22 09:25] VITALS: BMI 33.7
[2020-08-28] VITALS (24 sets, daily range): BP systolic 138–178; BP diastolic 60–103; PULSE 50–68; RESP 12–24; TEMP 36.3–37.1; O2SAT 69–99; BMI 36.1; BMI 34.6; BMI 34.7
--- NOTE | 2020-08-28 10:14 | NURSING ---
NO OLD EKGS
--- NOTE | 2020-08-28 10:34 | RAD_ITS ---
STUDY: X-RAY CHEST REASON FOR EXAM: Male, 64 years old. Sob TECHNIQUE: Single AP portable view of the chest. COMPARISON: None. FINDINGS: EKG electrodes are seen. The seventh thoracic congestion and CHF with increased markings at the lung bases worse at the left lung base. This may represent either atelectasis and/or infiltrates. Blunting of the left costophrenic angle. There is mild cardiac enlargement. Normal mediastinum and cinthia. Normal visualized pulmonary arteries. There is atherosclerotic calcification of the aortic arch with tortuosity. There are degenerative changes of the visualized thoracic spine. Normal visualized ribs, clavicles, and shoulders. There is no demonstrated abnormality of the visualized soft tissue structures of the upper abdomen. RAD/Chest 1 View (Portable) IMPRESSION: Mild degree of CHF with superimposed bibasilar atelectasis and/or infiltrates worse at the left lung base with blunting of the left costophrenic angle. Electronically Signed: James Bell MD at 12:12 EDT , Service support ,
--- NOTE | 2020-08-28 10:34 | EKG12_ITS ---
Test Reason : SOB Blood Pressure : / mmHG Vent. Rate : 063 BPM Atrial Rate : 063 BPM P-R Int : 266 ms QRS Dur : 112 ms QT Int : 412 ms P-R-T Axes : 028 -72 198 degrees QTc Int : 421 ms Sinus rhythm with 1st degree A-V block Possible Left atrial enlargement Pulmonary disease pattern Incomplete right bundle branch block Left anterior fascicular block Septal infarct , age undetermined ST & T wave abnormality, consider inferolateral ischemia Abnormal ECG Confirmed by ELLA SANCHEZ, GERSON ([id number]), acquisition editor ALAN HERRERA ([id number]) on 08/30/2020 11:16:54 AM Referred By: MILADIS Confirmed By:GERSON JARAMILLO MD
--- NOTE | 2020-08-28 10:36 | ED.VIS.GEN ---
History of Present Illness Chief Complaint: General Illness Narrative: Patient presents with hypoxia. He has chronic disease he is chronically ill and he has home health aide. He has no current shortness of breath, his home health aide came to visit this morning and took vitals pulse ox was in the 70s, he was in the 70s in the emergency department and 80s on 5 L. When I got to the room he was a nonrebreather mask. Patient denies fever or chills, he has a chronic left foot infection seen by podiatry and he has cast on. Otherwise he has no cough or congestion he denies any chest pain. Past medical history: Hypertension, hypercholesterolemia, diabetes, chronic foot infection, prior history of coronary artery disease. Medications: Reviewed Social history: Lives at home he tells me he quit smoking although he occasionally smokes. Review of systems: All systems negative except as indicated General: Denies: Fever, he has chronic generalized weakness but it is not worse than normal. Eyes: Denies: Visual changes - bilaterally ENT: Denies: Rhinorrhea, Sore throat Cardiovascular: Denies: Chest pain Respiratory: Denies: Dyspnea, Cough Gastrointestinal: Denies: Abdominal pain, Nausea, Vomiting Genitourinary: Denies: Dysuria Musculoskeletal: Chronic wounds Skin: Denies: Any rash Neurological: Denies: Headache, no focal weakness Psych: Reports: negative Hematologic: Denies: Easy bruising, Easy bleeding Physical exam General: Patient appears chronically ill, he is speaking in full sentences and is only slightly tachypneic he is on a nonrebreather mask at this time. Head: Normocephalic, Atraumatic Eyes: Conjunctiva not pale ENT: Somewhat dry mucous membranes Neck: Supple, Nontender, No lymphadenopathy Cardiovascular: Regular rate, Regular rhythm Respiratory: Diminished bilateral breath sounds with bilateral wheezing. He is slightly tachypneic Abdomen: Soft, Nontender, Nondistended Back: Nontender, Normal Inspection. Negative for: CVA tenderness Extremities: A cast over the left foot I cannot remove it. Skin: Otherwise slightly dark pigmentation but he tells me this is chronic. Neurological: Alert, Normal Strength, Normal Sensation. He is oriented x3 however he does not remember the events of the past few days very well, he seems to be confused at times, he seems to be perseverating on some of the questions that I already answered. Psychological: Flat affect Capacity - Capacity Assessment Tool Can the patient make a choice & communicate that choice?: No Can the patient understand benefits, risks and alternatives?: No Can the patient make a logical, rational choice?: No Is the choice the patient makes consistent w/ their values?: No Is there an impending, emergent risk to the patient?: Yes Does the patient have an Advance Directive?: Unable to Determine i.e. close relative (spouse, child, parent, sibling)?: Yes - Neyda, Lisa Past Medical History - Allergies and Home Meds Allergies/Adverse Reactions: Allergies codeine Adverse Reaction (Verified 08/28/20 10:16) Nausea promethazine [From Phenergan] Adverse Reaction (Verified 08/28/20 10:16) Nausea Smoking Status: Current every day smoker Physical Exam Vital Signs/Narrative: Vital Signs Temp Pulse Resp BP Pulse Ox 08/28/20 10:15 98.6 F 59 L 16 151/79 H 99 08/28/20 10:08 98.3 F 61 15 151/79 H 77 Diagnostic/Tx/Re-eval Chest X-Ray - ED: 1 View, Read by ED Physician, Read by Radiologist, - - Patient has infiltrates on his x-ray the radiologist thought this could be fluid versus pneumonia. I believe is likely pneumonia - Medical Decision Making Patient is found to have respiratory acidosis and hypercarbia. He was placed on BiPAP I started antibiotics. I will admit him to a stepdown unit. He is critically ill and has respiratory distress. 13:50 I was told that the patient wants to be discharged. I went back to reevaluate him, he did have some confusion initially but he was oriented x3 however when I discussed with him about his hypoxia his hypercarbia and he did not quite understand he quit asking me questions, I told him that his oxygen was low and that it could impair his brain. He disagreed with me. I talked to his Sister Lisa, his Sister Lisa also talked to the patient over the phone. She tells me that this is not her brother he is confused he is not acting like himself and he is way more angry than normal. At this time I do not believe he has the capacity needed to make an informed decision to be discharged AGAINST MEDICAL ADVICE. He has 2 different etiologies that could impair his critical reasoning and I am quite concerned. We did get the legal department involved however they did not have any guidance for me at this time. Regardless I cannot include good conscience signed the patient out AMA I do not believe he fully understands the he would likely . When I talked to his sister this is not consistent with Khris, Khris usually has wanted to live and has not wanted to . Therefore I will give the patient Ativan and Haldol and nicotine per his request and will admit him to the hospital. - Critical Care Time Critical care time (excluding procedures): 30-74 minutes, - - Patient has respiratory failure requiring BiPAP, hypercarbia and multiple medical problems I spent 35 minutes of critical care time including bedside treatment documentation discussing with consultants and multiple reevaluations. This does not include any procedures. ED Disposition - Plan for ED Patient: Disposition: Acute Care Hospital [facility] Diagnosis: Respiratory acidosis, Hypercarbia
[2020-08-28] MEDS: Ipratropium/Albuterol Sulfate 3 ML AMPUL.NEB INHALATION (10:44)
[2020-08-28] MEDS: Albuterol 2.5 MG/3 ML VIAL.NEB. INHALATION (10:44)
[2020-08-28 10:59] LABS: Absolute Lymphocyte Count 1.92 X10^3/uL (0.83-4.51); Absolute Neutrophil Count 5.5 X10^3/uL (2.0-7.7); Basophil# 0.06 X10^3/uL; Basophil% 0.7 % (0-1); Eosinophil# 0.17 X10^3/uL; Lymphocyte # 1.92 X10^3/ul (4.0); Mean Corp Hgb Conc 29.2 g/dL (32-36); Mean Corpuscular Hgb 27.6 pg (27.0-32.0); Mean Corpuscular Volume 94.7 fL (80-94); Mean Platelet Vol. 10.8 fl (6.2-12.0); Monocyte% 8.4 % (0-10); NRBC Flagged by Analyzer 0 % (0-5); Neutrophil # 5.47 X10^3/uL (2.7-7.7); Neutrophil % 65.7 % (47-70); Platelet Count 143 K/mm3 (150-450); RBC Distribution Width CV 17.4 % (11.6-14.6); RBC Distribution Width SD 56.6 fl (35.1-43.9); Red Blood Count 6.66 M/mm3 (4.6-6.2); White Blood Count 8.3 K/mm3 (4.4-11.0)
[2020-08-28 11:01] LABS: Allen Test Positive; Base Excess 10 mmol/L (-2 to +2); Bicarbonate 36.8 mmol/L (22-26); Blood Gas Specimen Type ART; FI02 50; O2 Delivery Device Venti Mask; PO2 74 mmHG (75-100); SITE L Radial; SO2 92 % (95-99); Total Carbon Dioxide 39 mmol/L; pCO2 77.2 mmHg (35-45); pH 7.29 (7.35-7.45)
[2020-08-28 11:05] LABS: Hematocrit 63.1 % (40-54)
[2020-08-28 11:09] LABS: Hemoglobin 18.4 g/dL (13.0-16.5)
--- NOTE | 2020-08-28 11:09 | ED.RN ---
hemoglobin 18.4
[2020-08-28 11:34] LABS: ALB/GLOB Ratio 0.7 RATIO (0.9-2.4); AST(SGOT) 17 U/L (15-37); Alanine Aminotransfer ALT/SGPT 35 U/L (16-61); Albumin, Serum 3.1 g/dL (3.2-5.0); Alkaline Phosphatase 137 U/L (45-117); Anion Gap 1 (5-15); BUN 26 mg/dL (7-18); BUN/Creat Ratio 12.3 RATIO (10-20); Calcium,Total 8.8 mg/dL (8.5-10.1); Chloride 104 mmol/L (98-107); Creatinine, Serum 2.11 mg/dL (0.70-1.30); EST Glomerular Filtration Rate 34 mL/min (>60); Est Glom Filt Rate - Afr Amer 41 mL/min (>60); Estimated Creatinine Clearance 41.16 ml/min; Globulin 4.4 g/dL (2.2-4.2); Glucose 100 mg/dL (74-106); Potassium 4.9 mmol/L (3.5-5.1); Protein, Total 7.5 g/dL (6.4-8.2); Sodium Level 138 mmol/L (136-145)
[2020-08-28 11:52] LABS: BNP,B-Type NATRIURETIC PEPTIDE 299.6 pg/mL (0-100)
--- NOTE | 2020-08-28 12:52 | CPS ---
Critical CO2 value of 77 on ABG obtained at 11:20. Dr. Kilpatrick aware.
--- NOTE | 2020-08-28 12:54 | NURSING ---
pcu respiratory failure derek
--- NOTE | 2020-08-28 13:13 | NURSING ---
DR CASTRO IN ROOM
[2020-08-28] MEDS: Furosemide 40 MG/4 ML Vial IV ×2 (13:16→18:13)
[2020-08-28] MEDS: Ceftriaxone 1 GM/50 ML BAG IV (13:16)
--- NOTE | 2020-08-28 13:36 | ED.RN ---
RUSSEL VASQUEZ WAS TAKING PT TO FLOOR AND IN THE MIDDLE OF HALLWAY PT REFUSED TO BE ADMITTED AND GO UPSTAIRS. PT BROUGHT BACK TO ER ROOM [address] KIM MADE AWARE.
--- NOTE | 2020-08-28 13:57 | HP.PCM_ITS ---
History of Present Illness Date of Admission: 08/28/20 Chief Complaint: shortness of breath The patient is a 64 year old M presents after being found to be hypoxic by home health. Sats were 70%, eventually transition to NRB mask then BiPAP. ABG showed pH of 7.29, pCO2 77.2. Patient is somnolent and unable to provide any history, so history is obtained throught the ED physician. 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) Tobacco abuse (Chronic) Obesity (Chronic) Tinea unguium (Chronic) Allergies codeine Adverse Reaction (Verified 08/28/20 10:16) Nausea promethazine [From Phenergan] Adverse Reaction (Verified 08/28/20 10:16) Nausea Home Medications: Ambulatory Orders Medication Instructions Recorded Ascorbic Acid [Vitamin C] 1,000 mg PO TID 07/11/20 Aspirin [Aspirin, Baby] 81 mg PO DAILY@0800 07/11/20 Atorvastatin Calcium [Lipitor] 80 mg PO QHS 07/11/20 Cholecalciferol (Vitamin D3) 5,000 unit PO DAILY 07/11/20 [Vitamin D3] Gabapentin [Neurontin] 600 mg PO TID 07/11/20 Glipizide [Glipizide ER] 10 mg PO DAILY 07/11/20 Insulin Glargine,Hum.rec.anlog 40 unit SQ DAILY 07/11/20 [Lantus Solostar] Insulin Glargine,Hum.rec.anlog 35 unit SQ BREAKFAST 07/11/20 [Lantus] Insulin Lispro [Humalog KwikPen] See Protocol SQ DAILY 07/11/20 Magnesium Oxide [Magnesium] 500 mg PO DAILY 07/11/20 Oxycodone HCl/Acetaminophen 1 tab PO TID 07/11/20 [Percocet 10-325 mg Tablet] Carvedilol [Coreg] 12.5 mg PO DAILY 08/17/20 Sildenafil Citrate [Viagra] 100 mg PO PRN PRN 08/17/20 Smoking Status: Current every day smoker Review of Systems Unable to obtain accurate/complete ROS d/t: Unresponsive VTE Information - Inpt Only VTE Present on Admission: No VTE Mechan Device Prophylaxis: None VTE Pharm Prophylaxis ordered?: Yes Reason prophylaxis not ordered:: Refusal of Tx by Patient Patient Problems: Active and Suspected Problems Respiratory acidosis (Acute) Hypercarbia (Acute) - Physical Exam Vitals/I&O's: Vital Signs Temp Pulse Resp BP Pulse Ox 36.6 C 53 L 15 178/96 H 96 08/28/20 13:18 08/28/20 13:18 08/28/20 13:18 08/28/20 13:18 08/28/20 13:18 Oxygen Delivery Method Bi-pap Weight: 131.2 kg Body Mass Index (BMI) 36.1 Intake and Output for Last 24 Hours 08/26/20 08/27/20 08/28/20 23:59 23:59 23:59 Intake Total 43.33 / 43.33 Balance 43.33 / 43.33 General: - - somnolent afebrile HEENT: Atraumatic, Normocephalic Oral: Moist Mucosa, No Gingival or Mucosal Lesions/ Ulcerations Neck: No Nodes, Thyroid Normal Size and Texture Lungs: - - coarse breath sounds bilaterally. Cardiovascular: Regular rate, Regular Rhythm, Normal S1, Normal S2, No murmurs Abdomen: Bowel Sounds Present, Soft, Non Tender, Non-Distended, No Hepato- splenomegaly Extremities: No edema, No Calf Tenderness, - - cast on left foot and ankle. no ulceration on on right foot Skin: No rashes, No breakdown Musculoskeletal: No Tenderness to Palpation of Joints or Extremities, No Muscle Wasting Neurological: - - DTRs 2/4 in LE Psych/Mental Status: Normal Affect, Appropriate Microbiology Past 72 Hours 08/28/20 10:15 Mucosa - Nose SARS-CoV-2 Antigen (Rapid) - Final Laboratory Results 08/28/20 10:35: WBC 8.3, RBC 6.66 H, Hgb 18.4 H*, Hct 63.1 H, MCV 94.7 H, MCH 27.6, MCHC 29.2 L, RDW Std Deviation 56.6 H, RDW Coeff of Darrell 17.4 H, Plt Count 143 L, MPV 10.8, Immature Gran % (Auto) 0.200, Neut % (Auto) 65.7, Lymph % (Auto) 23.0, [place] % (Auto) 8.4, Eos % (Auto) 2.0, Baso % (Auto) 0.7, Absolute Neuts (auto) 5.5, Absolute Lymphs (auto) 1.92, Nucleated RBC % 0 08/28/20 10:35: B-Natriuretic Peptide 299.6 H 08/28/20 10:35: Sodium Cancelled, Potassium Cancelled, Chloride Cancelled, Carbon Dioxide Cancelled, Anion Gap Cancelled, BUN Cancelled, Creatinine Cancel led, Estim Creat Clear Calc Cancelled, Est GFR (MDRD) Af Amer Cancelled, Est GFR (MDRD) Non-Af Cancelled, BUN/Creatinine Ratio Cancelled, Glucose Cancelled, Calcium Cancelled, Total Bilirubin Cancelled, AST Cancelled, ALT Cancelled, Alkaline Phosphatase Cancelled, Troponin I Cancelled, Total Protein Cancelled, Albumin Cancelled, Globulin Cancelled, Albumin/Globulin Ratio Cancelled 08/28/20 10:52: Specimen Type ART, Sample Site L Radial, pH 7.29 L, Bicarbonate Actual 36.8 H, Total CO2 39, Base Excess 10 H, O2 Saturation 92 L, O2 % 50, ABG pCO2 77.2 H*, ABG pO2 74 L, Marquez Test Positive, O2 Delivery Device Venti Mask, Crit Call To/Read Back Yes 08/28/20 11:06: Sodium 138, Potassium 4.9, Chloride 104, Carbon Dioxide 33.0 H, Anion Gap 1 L, BUN 26 H, Creatinine 2.11 H, Estim Creat Clear Calc 41.16, Est GFR (MDRD) Af Amer 41 L, Est GFR (MDRD) Non-Af 34 L, BUN/Creatinine Ratio 12.3, Glucose 100, Calcium 8.8, Total Bilirubin 0.60, AST 17, ALT 35, Alkaline Phosphatase 137 H, Troponin I 0.047 H, Total Protein 7.5, Albumin 3.1 L, Globulin 4.4 H, Albumin/Globulin Ratio 0.7 L CXR reviewed: pulmonary vascular congestion. Assessment/Plan All Active Problems Respiratory acidosis (Acute) Hypercarbia (Acute) 1. acute hypoxic respiratory failure 2/2 CHF +/- PNA on BiPAP wean oxygen as tolerated 2. Acute CHF exacerbation IVfurosemide check echo continue carvedilol 3. respiratory acidosis as above 4. metabolic acidosis 2/2 above +/- medications hold gabapendint and oxycodone 5. CKD IIIb monitor 6. DM2 cut back dosing while NPO hold glipizide for now. 7. Elevated troponin suspect d/t demand ischemia monitor 8. VTE prophylaxis: LMWH 9. left heel ulcer last saw Dr. Nair on 08/22 and reported as stable. Cast placed at that time and was to follow up in 1 week. Consult podiatry Inpatient E&M: 87751 Init Hosp L3
--- NOTE | 2020-08-28 14:16 | ED.RN ---
LEGAL PT ADVOCATE KATHI CALLED. EDIE GA, RN, SPOKE WITH KATHI AND KATHI AGREED THAT PT IS NOT ABLE TO MAKE OWN DECISIONS AT THIS TIME DUE TO HYPOXIA AND HYPOCAPNEIC. DR KIM ALSO SPOKE WITH PT'S SISTER, AND SISTER STATES TO DR KIM THAT SHE WOULD LIKE HIM ADMITTED AND THAT HE IS NOT ACTING HIMSELF. DR KIM EXPLAINED TO PT THAT IT IS UNSAFE TO LEAVE AND HE IS NOT ABLE TO MAKE THAT DECISION ON HIS OWN AT THIS TIME BUT TO LOW OXYGEN LEVELS AND HIGH CO2 LEVELS, WHICH CAN CAUSE CONFUSION.PT TRYING TO GET OUT OF BED AT THIS TIME AND REFUSING OXYGEN OR PULSE OXIMETER AT THIS TIME. PT ADVOCATE EDIE GA CONTINUES TO EDUCATE PT AT THIS TIME. PT WALKED TO BATHROOM, PULSE OX 85%. PT RETURNED TO ROOM.
--- NOTE | 2020-08-28 14:32 | ED.RN ---
MILLWRIGHT SUPERVISOR SPEAKING TO PT AT THIS TIME. PT STILL REFUSING OXYGEN, PULSE OX, MONITOR AND STILL REFUSING TO GET INTO BED.
--- NOTE | 2020-08-28 14:32 | ED.RN ---
I encountered the patient in the hallway in the bed on his way to PCU. The patient was arguing with the medic about admission. Javier, the medic was explaining about the admission and encouraging the patient to replace the venti-mask of which the patient was refusing. The patient insisted on being taken back to ED so he could go home. Upon return to the ED the patient became loud and demanding, get this stuff off of me!, referring to the monitor and IVs. He did not accept redirection initially but did listen to the Dr. Kilpatrick's explanation as to why he could not go home. I spoke to Risk Management and described the situation. Without someone to be with the patient in this situation we could not let him leave. She was aware of the physician order. The physician spoke to the patient's sister and learned this is not his typical behavior. After the physician left the room I spoke with the patient as the advocate and explained the importance of treatment today. We talked in detail about the importance of his o2 and co2 levels. He retorted he would refuse all treatment and call all the staff vulgar names. After much more talk and encouragement the patient requested to use the rest room. He insisted on walking of which he maintained a room air SAT of 85%. Upon returning to the room he had a long telephone conversation with someone, spoke with a rep from [facility], and spoke with the physician again. Dr. Kilpatrick had already agreed to give meds for smoking to include ativan, and a nicotine patch. He had ordered restraints and sedation if the patient was uncooperative. The patient informed he was diabetic and had not eaten today. After his phone call we checked his glucose level at 90. He was given a sandwich and diet soda before leaving the department. The patient used the urinal in the room and voluntarily sat in the bed. He verbalized understanding if his future tests came back improved he would be able to sign out AMA.
[2020-08-28] MEDS: LORazepam 2 MG/ML Syringe 1 MG IV (15:01)
[2020-08-28] MEDS: HYDROmorphone 1 MG/ML Syringe IV (15:01)
[2020-08-28 15:10] LABS: Bedside Glucose 90 mg/dL (70-110)
--- NOTE | 2020-08-28 15:14 | ED.RN ---
DR GERSON KIM IN ROOM EDUCATING PT AGAIN ON WHY HE CANNOT GO HOME. PULSE OX 83%, PT REFUSING OXYGEN STILL AT THIS TIME. AFTER ABOUT 2 HOURS OF EXPLAINING TO PT WHY HE NEEDS TO STAY, HE AGREED TO GET INTO BED AND STAY LONG HE DOES NOT GET ANY TRANQUILIZERS. DR KIM OKAY WITH THIS DECISION LONG PT IS COOPERATIVE. PT GIVEN 1MG DILAUDID, ATIVAN, AND NICOTINE PATCH. PT AGREEABLE AND TAKEN UPSTAIRS TO PCU.
--- NOTE | 2020-08-28 15:20 | ED.RN ---
25 MG BENADRYL AND 10MG HALDOL WASTED IN RX DESTROYER. WITNESS Nito CHATTERJEE.
--- NOTE | 2020-08-28 15:26 | ECHOCS_ITS ---
Reason For Study: Resp. Failure Procedure This was a 2D Doppler, Color Flow transthoracic echocardiogram. The study was technically difficult. Contrast injection was performed. Exam performed portable in patient room. Left Ventricle Normal LV size. Moderate concentric left ventricular hypertrophy. Left ventricular systolic function is normal. The estimated ejection fraction is 65 %. No evidence for diastolic dysfunction. No regional wall motion abnormalities noted. Right Ventricle Normal RV size. Normal systolic function. Atria Normal left atrium. Normal right atrium. No doppler evidence for ASD. Mitral Valve There is no mitral annular calcification. Normal mitral valve. Trivial mitral valve insufficiency. Tricuspid Valve Normal tricuspid valve. Trivial tricuspid valve insufficiency. Unable to estimate RV systolic pressure/pulmonary artery pressure due to technically difficult study. Aortic Valve Trisinus/trileaflet aortic valve. Normal aortic valve. Pulmonic Valve The pulmonic valve is not well visualized. Great Vessels The aortic root is not well visualized. Pericardium/Pleural No pericardial effusion. Medication Diluted definity 2ml given slow IV push to enhance endocardial definition. MMode/2D Measurements & Calculations LVIDd: 4.8 cm IVSd: 1.7 cm LA dimension: 3.0 cm LVIDs: 2.6 cm LVPWd: 1.5 cm FS: 46.9 % LAV(MOD-bp): 71.2 ml LA A4 area: 22.6 cm2 RA A4 area: 20.8 cm2 LAV(MOD-bp) Indexed: 28.5 ml/m2 LAV(MOD-sp2): 63.7 ml LAV(MOD-sp4): 65.2 ml Time Measurements MV dec time: 0.36 sec Doppler Measurements & Calculations MV E max patric: 59.8 cm/sec Lat Peak E' Patric: 9.7 cm/sec Med Peak E' Patric: 4.7 cm/sec MV A max patric: 97.2 cm/sec E/E' lat: 6.2 E/E' med: 12.7 MV E/A: 0.61 MV V2 max: 114.9 cm/sec MV P1/2t max patric: 87.4 cm/sec Ao V2 max: 156.5 cm/sec MV max P.3 mmHg MV P1/2t: 89.0 msec Ao max P.8 mmHg MV V2 mean: 69.9 cm/sec MV dec slope: 287.4 cm/sec2 MV mean P.2 mmHg MV V2 VTI: 29.4 cm MVA(P1/2t): 2.5 cm2 LV V1 max: 140.7 cm/sec PA V2 max: 105.9 cm/sec LV V1 max P.9 mmHg ECHO/Echo Complete W/ Contrast Interpretation Summary The study was technically difficult. Contrast injection was performed. Left ventricular systolic function is normal. The estimated ejection fraction is 65 %. Moderate concentric left ventricular hypertrophy. Trivial mitral valve insufficiency. Trivial tricuspid valve insufficiency. Unable to estimate RV systolic pressure/pulmonary artery pressure due to techni angie difficult study. No evidence for diastolic dysfunction. Ordering Physician: Toney Dodd Referring Physician: no PCP noted Performed By: Christopher Shipman RCS
[2020-08-28] MEDS: 0.9% Saline Lock 10 ML Syringe IV ×2 (15:59→18:13)
[2020-08-28 16:50] LABS: Bedside Glucose 95 mg/dL (70-110)
[2020-08-28] MEDS: guaiFENesin 1,200 MG Tablet 1200 MG PO (20:57)
[2020-08-28] MEDS: Atorvastatin Calcium 80 MG Tablet PO (20:57)
--- NOTE | 2020-08-28 20:59 | NURSING ---
Trialed pt off BIPAP to eat per WELL TESTER's permission. Satting low 90s on 10 L nasal cannula. Allowed pt to eat w/ supervision. Pt still somewhat drowsy at times but did well eating. LU Milton.
[2020-08-28 21:50] LABS: Bedside Glucose 75 mg/dL (70-110)
[2020-08-29] VITALS (20 sets, daily range): BP systolic 104–185; BP diastolic 48–86; PULSE 63–88; RESP 12–23; TEMP 36.1–36.9; O2SAT 82–97
[2020-08-29] MEDS: Acetaminophen 325 MG Tablet 650 MG PO (01:28)
[2020-08-29 05:36] LABS: Absolute Lymphocyte Count 1.41 X10^3/uL (0.83-4.51); Absolute Neutrophil Count 5.7 X10^3/uL (2.0-7.7); Basophil# 0.04 X10^3/uL; Basophil% 0.5 % (0-1); Eosinophils% 2.5 % (0-5); Lymphocyte # 1.41 X10^3/ul (4.0); Lymphocyte % 17.4 % (19-41); Mean Corp Hgb Conc 29.3 g/dL (32-36); Mean Corpuscular Hgb 27.8 pg (27.0-32.0); Mean Corpuscular Volume 95.1 fL (80-94); Monocyte% 8.6 % (0-10); NRBC Flagged by Analyzer 0 % (0-5); Neutrophil # 5.74 X10^3/uL (2.7-7.7); Neutrophil % 70.8 % (47-70); Platelet Count 122 K/mm3 (150-450); RBC Distribution Width CV 17.2 % (11.6-14.6); RBC Distribution Width SD 55.8 fl (35.1-43.9); White Blood Count 8.1 K/mm3 (4.4-11.0)
[2020-08-29 05:38] LABS: Hematocrit 61.8 % (40-54)
[2020-08-29 05:39] LABS: Differential Indicated SCAN CRITERIA MET; Hemoglobin 18.1 g/dL (13.0-16.5)
[2020-08-29 05:49] LABS: Anion Gap 0 (5-15); BUN 33 mg/dL (7-18); BUN/Creat Ratio 14.6 RATIO (10-20); Calcium,Total 8.7 mg/dL (8.5-10.1); Chloride 96 mmol/L (98-107); Creatinine, Serum 2.26 mg/dL (0.70-1.30); EST Glomerular Filtration Rate 31 mL/min (>60); Est Glom Filt Rate - Afr Amer 37 mL/min (>60); Estimated Creatinine Clearance 38.43 ml/min; Glucose 448 mg/dL (74-106); Potassium 4.8 mmol/L (3.5-5.1); Sodium Level 134 mmol/L (136-145)
[2020-08-29 06:02] LABS: Differential Comment SCANNED
[2020-08-29 06:46] LABS: Bedside Glucose 458 mg/dL (70-110)
--- NOTE | 2020-08-29 06:50 | CPS ---
Pt's Sat is 84% on 10lpm O2, pt is a CO2 retainer but will not go back on the BIPAP, says he can't breath with it on. R.T. explained it's importance and the reason why but pt still refuses. Pt says he does not want intubated or CPR, that those wishes are in his will at home. RMarbin. told RN this
[2020-08-29] MEDS: Insulin Lispro 100 UNIT/ML INSULN.PEN 10 UNIT SC ×2 (06:56→22:21)
--- NOTE | 2020-08-29 07:31 | NURSING ---
This RN to went assess pt following respiratory therapy's concern w/ pt tolerating the nasal cannula. Pt encouraged to take some deep breaths through nasal cannula and focus on breathing through nose. O2 came up to mid 90s on 10 L NC. Passed onto dayshift RN that pt wants to be a DNR and does not want to wear his BIPAP. This information passed along to dayshift RN. Pt is currently alert and oriented. LU Milton
--- NOTE | 2020-08-29 07:53 | NURSING ---
[id number]-This RN into room to check telemetry leads and speak with pt about code status wishes. Pt stated that he was just going to tell us whatever he could to get out of the hospital, I don't want to be here. Pt went on to state that he is very upset because has very important appointments that he cannot miss and that he has already missed one. Informed pt that I would pass concerns along to the physician. Pt c/o feeling uncomfortable and too hot, temperature of room adjusted to promote comfort. [id number]-Dr Dodd to floor. Informed of pt concerns and wishes to address code status.
--- NOTE | 2020-08-29 08:42 | NURSING ---
wound photo: left plantar heel
--- NOTE | 2020-08-29 08:45 | NURSING ---
0805- Dr Dodd and this RN into room. Dr Dodd advised pt of risks of leaving AMA. Pt verbalized understanding and continuously stating ya I know I got to get to these appointments. Pt A&O to place, time, and self. Pt made comment to nurse that he has enough oxygen in his yard and house and that he doesn't need home oxygen. 0815- Dr Dodd, [employer] civil rights investigator, and this RN into room to once again speak with patient. Pt observed talking to sister on phone stating that he is discharged. Dr Dodd corrected pt saying that he is discharging himself AMA. Pt spoke with sister on phone for several minutes. Dr Dodd then spoke to sister on speakerphone regarding situation. After speaking with sister and Dr Dodd, pt has decided to stay and be cooperative with care in order to get him healthy enough to discharge home. Code status was then addressed. Pt very belligerent, uncooperative, and cursing at staff throughout this conversation. This RN and civil rights investigator assisted pt to stand at side of bed to urinate then into chair to eat breakfast. Pt states he is comfortable. Advised to use call light and wait for staff when needing to reposition or stand to urinate. Pt vocalized understanding.
--- NOTE | 2020-08-29 09:38 | PCM.PN.HOSP ---
Patient Problems: Active and Suspected Problems Respiratory acidosis (Acute) Hypercarbia (Acute) Subjective: Wants to go home so he can make appointments that were scheduled for this week. Does not tolerate BiPAP and does not want to be put back on. Vitals/I&O's: Vital Signs Temp Pulse Resp BP Pulse Ox 36.7 C 83 20 H 145/65 H 82 08/29/20 06:00 08/29/20 07:32 08/29/20 06:00 08/29/20 06:00 08/29/20 06:50 Oxygen Flow Rate (L/min) 8 Oxygen Delivery Method Nasal Cannula Weight: 125.781 kg Body Mass Index (BMI) 34.6 Intake and Output for Last 24 Hours 08/27/20 08/28/20 08/29/20 23:59 23:59 23:59 Intake Total 305.00 / 1105.00 1040 / 1040 Output Total 425 / 2625 2200 / 2200 Balance -120.00 / -1520.00 -1160 / -1160 General: Alert HEENT: Atraumatic, Normocephalic Oral: Moist Mucosa, No Gingival or Mucosal Lesions/ Ulcerations Neck: No Nodes, Thyroid Normal Size and Texture Lungs: Clear to auscultation, No rhonchi, No wheeze, No rales, Diminished Cardiovascular: Regular rate, Regular Rhythm, Normal S1, Normal S2, No murmurs Abdomen: Bowel Sounds Present, Soft, Non Tender, Non-Distended, No Hepato-splenomegaly Extremities: No edema, No Calf Tenderness Skin: No rashes, No breakdown Musculoskeletal: No Tenderness to Palpation of Joints or Extremities, No Muscle Wasting Psych/Mental Status: Agitated, Irrational Behavior Microbiology Past 72 Hours 08/28/20 18:25 Urine, Clean Catch Legionella Antigen - Final 08/28/20 18:25 Urine, Clean Catch Streptococcus pneumoniae Antigen (M - Final 08/28/20 10:15 Mucosa - Nose SARS-CoV-2 Antigen (Rapid) - Final Laboratory Results 08/28/20 10:35: WBC 8.3, RBC 6.66 H, Hgb 18.4 H*, Hct 63.1 H, MCV 94.7 H, MCH 27.6, MCHC 29.2 L, RDW Std Deviation 56.6 H, RDW Coeff of Darrell 17.4 H, Plt Count 143 L, MPV 10.8, Immature Gran % (Auto) 0.200, Neut % (Auto) 65.7, Lymph % (Auto) 23.0, [place] % (Auto) 8.4, Eos % (Auto) 2.0, Baso % (Auto) 0.7, Absolute Neuts (auto) 5.5, Absolute Lymphs (auto) 1.92, Nucleated RBC % 0 08/28/20 10:35: B-Natriuretic Peptide 299.6 H 08/28/20 10:35: Sodium Cancelled, Potassium Cancelled, Chloride Cancelled, Carbon Dioxide Cancelled, Anion Gap Cancelled, BUN Cancelled, Creatinine Cancelled, Estim Creat Clear Calc Cancelled, Est GFR (MDRD) Af Amer Cancelled, Est GFR (MDRD) Non-Af Cancelled, BUN/Creatinine Ratio Cancelled, Glucose Cancelled, Calcium Cancelled, Total Bilirubin Cancelled, AST Cancelled, ALT Cancelled, Alkaline Phosphatase Cancelled, Troponin I Cancelled, Total Protein Cancelled, Albumin Cancelled, Globulin Cancelled, Albumin/Globulin Ratio Cancelled 08/28/20 10:52: Specimen Type ART, Sample Site L Radial, pH 7.29 L, Bicarbonate Actual 36.8 H, Total CO2 39, Base Excess 10 H, O2 Saturation 92 L, O2 % 50, ABG pCO2 77.2 H*, ABG pO2 74 L, Marquez Test Positive, O2 Delivery Device Venti Mask, Crit Call To/Read Back Yes 08/28/20 11:06: Sodium 138, Potassium 4.9, Chloride 104, Carbon Dioxide 33.0 H, Anion Gap 1 L, BUN 26 H, Creatinine 2.11 H, Estim Creat Clear Calc 41.16, Est GFR (MDRD) Af Amer 41 L, Est GFR (MDRD) Non-Af 34 L, BUN/Creatinine Ratio 12.3, Glucose 100, Calcium 8.8, Total Bilirubin 0.60, AST 17, ALT 35, Alkaline Phosphatase 137 H, Troponin I 0.047 H, Total Protein 7.5, Albumin 3.1 L, Globulin 4.4 H, Albumin/Globulin Ratio 0.7 L 08/28/20 15:07: POC Glucose 90 08/28/20 16:18: POC Glucose 95 08/28/20 16:26: Troponin I 0.042 08/28/20 19:20: Troponin I 0.045 08/28/20 20:54: POC Glucose 75 08/29/20 05:28: WBC 8.1, RBC 6.50 H, Hgb 18.1 H*, Hct 61.8 H, MCV 95.1 H, MCH 27.8, MCHC 29.3 L, RDW Std Deviation 55.8 H, RDW Coeff of Darrell 17.2 H, Plt Count 122 L, MPV 11.0, Immature Gran % (Auto) 0.200, Neut % (Auto) 70.8 H, Lymph % (Auto) 17.4 L, [place] % (Auto) 8.6, Eos % (Auto) 2.5, Baso % (Auto) 0.5, Absolute Neuts (auto) 5.7, Absolute Lymphs (auto) 1.41, Nucleated RBC % 0, Differential Comment SCANNED, Diff Path Review September08/29/20 05:28: Sodium 134 L, Potassium 4.8, Chloride 96 L, Carbon Dioxide 38.0 H, Anion Gap 0 L, BUN 33 H, Creatinine 2.26 H, Estim Creat Clear Calc 38.43, Est GFR (MDRD) Af Amer 37 L, Est GFR (MDRD) Non-Af 31 L, BUN/Creatinine Ratio 14.6, Glucose 448 H, Calcium 8.7 08/29/20 06:40: POC Glucose 458 H* Current Medications Acetaminophen (Acetaminophen 325 Mg Suppository) 650 mg RC Q4H PRN PRN PRN Reason: Pain Score 1-10/Temp > 100.7 F Acetaminophen (Acetaminophen 325 Mg Tablet) 650 mg PO Q6H PRN PRN PRN Reason: Pain Score 1-10/Temp > 100.7 F Last Admin: 08/29/20 01:28 Dose: 650 mg Documented by: Albuterol Sulfate (Albuterol 2.5 Mg/3 Ml Vial.Neb.) 2.5 mg INHALATION Q2H PRN PRN PRN Reason: SOB/Wheezing Ascorbic Acid (Ascorbic Acid 500 Mg Tablet) 1,000 mg PO TIDCM [facility] Last Admin: 08/28/20 16:52 Dose: Not Given Documented by: Aspirin (Aspirin 81 Mg Tab.Chew) 81 mg PO DAILY@0800 [facility] Atorvastatin Calcium (Atorvastatin Calcium 80 Mg Tablet) 80 mg PO QHS [facility] Last Admin: 08/28/20 20:57 Dose: 80 mg Documented by: Carvedilol (Carvedilol 12.5 Mg Tablet) 12.5 mg PO BID [facility] Last Admin: 08/28/20 22:32 Dose: Not Given Documented by: Cholecalciferol (Cholecalciferol (Vit D3) 25 Mcg Tablet (1,000 Units)) 125 mcg PO DAILY [facility] Dextrose (Dextrose 50%-Water 25 Gm/50 Ml Disp.Syrin) 0 gm IV X1 PRN; Protocol PRN Reason: Hypoglycemia Enoxaparin Sodium (Enoxaparin 40 Mg/0.4 Ml Syringe) 40 mg SC DAILY [facility] Furosemide (Furosemide 40 Mg/4 Ml Vial) 40 mg IV BID@1000,1800 [facility] Last Admin: 08/28/20 18:13 Dose: 40 mg Documented by: Glucagon (Glucagon 1 Mg/Ml Syringe) 1 mg IM .X1 PRN PRN Reason: Hypoglycemia Guaifenesin (Guaifenesin 1,200 Mg Tablet) 1,200 mg PO BID [facility] Last Admin: 08/28/20 20:57 Dose: 1,200 mg Documented by: Ceftriaxone Sodium (Rocephin) 1 gm in 50 mls @ 100 mls/hr IV Q24 [facility] Azithromycin 500 mg/ Dextrose 255 mls @ 250 mls/hr IV Q24 [facility] Insulin Glargine (Insulin Glargine 100 Units/Ml Pen) 15 units SC BREAKFAST [facility] Insulin Glargine (Insulin Glargine 100 Units/Ml Pen) 15 units SC DAILY@2200 [facility] Last Admin: 08/28/20 22:33 Dose: Not Given Documented by: Insulin Human Lispro (Insulin Lispro 100 Unit/Ml Insuln.Pen) 0 unit SC TIDAC [facility]; Protocol Last Admin: 08/29/20 06:55 Dose: Not Given Documented by: Magnesium Chloride (Magnesium Chloride 64 Mg Delay Rel.Tablet) 128 mg PO DAILY [facility] Ondansetron HCl (Ondansetron 4 Mg/2 Ml Vial) 4 mg IV Q8H PRN PRN PRN Reason: NAUSEA/VOMITING Sodium Chloride (0.9% Saline Lock 10 Ml Syringe) 10 - 40 ml IV UD PRN PRN Reason: SALINE FLUSH Last Admin: 08/28/20 18:13 Dose: 10 ml Documented by: STROKE Vital Signs/Narrative: Vital Signs Temp Pulse Resp BP Pulse Ox 08/29/20 07:32 83 08/29/20 06:50 82 08/29/20 06:00 36.7 C 73 20 H 145/65 H 95 Medical Necessity - Tobacco Use Smoking Status: Current every day smoker Tobacco Use: Cigarettes Assessment/Plan All Active Problems Respiratory acidosis (Acute) Hypercarbia (Acute) 1. acute hypoxic respiratory failure improved. 2/2 CHF +/- PNA +/- CAMACHO not tolerating BiPAP, currently tolerating 8 liters NC wean oxygen as tolerated consult pulm 2. Acute CHF exacerbation IVfurosemide check echo continue carvedilol 3. respiratory acidosis as above 4. metabolic encephalopathy 2/2 above +/- medications plus underlying psychiatric disorder NOS hold gabapendint and oxycodone start seroquel this evening. outpt psychiatry eval patient denies suicidal ideation 5. CKD IIIb monitor 6. DM2 cut back dosing while NPO hold glipizide for now. 7. Elevated troponin suspect d/t demand ischemia resolved 8. VTE prophylaxis: LMWH 9. left heel ulcer last saw Dr. Nair on 08/22 and reported as stable. Cast placed at that time and was to follow up in 1 week. Consult podiatry 10. CODE STATUS: Conferred with the patient. Patient wishes to be DNR Comfort Care arrest and no intubation at this time. Greater than 45 minutes of which greater than 50% of time was discussing with the patient about staying in the hospital and the risk of him leaving AGAINST MEDICAL ADVICE including , respiratory failure, myocardial infarction anoxic encephalopathy amongst others and he expressed understanding. Patient actually signed AMA forms but then when he went back to address his CODE STATUS he was on phone with his sister. I spoke with his sister, who is a nurse, and clarified to her that we are not discharging patient but that he is leaving AGAINST MEDICAL ADVICE. She informed me that the patient is going to stay now. I informed her that the patient has been very belligerent to myself as well as the staff here in the floor as well and is in the emergency room. She expressed surprised though she was present when he was belligerent in the emergency room. She inquired about psychiatry evaluation. I told her that we do not have psychiatry at this facility though I did asked the patient earlier if he was suicidal and he denied that so he is not in any need of a pink slip. She asked if we could have pulmonary and physical and occupational therapy services evaluate him. She states that the patient has been taking the initiative in regards to getting appointments with physicians as well as patient was supposed to have a polysomnogram sometime this week as well. I did tell her that he is not tolerating a BiPAP and I would be very concerned that he would not tolerate a CPAP which I do suspect he has obstructive sleep apnea given his body habitus. I did discuss with patient that the medical staff is here to try to help him. He has become very angry very quickly over small things such as getting a urinal. I was in the middle of talking the patient about the risks of him leaving AGAINST MEDICAL ADVICE including and then he stated that I got a piss. When I was trying to convey the risks of leaving AGAINST MEDICAL ADVICE he demanded I get a urinal for him which I did and handed it to him. Later he said I threw it at him which I told him specifically I did not. Told him to tone down his belligerent behavior and reassured him that we are here to try to help him. Patient is obviously very impulsive. The patient's sister thinks is all related to CO2 but she is a one who asked about the psychiatry evaluation side strongly feel the patient has underlying psychiatric issues that have become the forefront during this hospitalization. Inpatient E&M: [id number] L[facility]
[2020-08-29] MEDS: Aspirin 81 MG TAB.CHEW PO (09:52)
[2020-08-29] MEDS: Carvedilol 12.5 MG Tablet PO ×2 (09:53→21:48)
[2020-08-29] MEDS: Ascorbic Acid 500 MG Tablet 1000 MG PO ×3 (09:53→16:54)
[2020-08-29] MEDS: Magnesium Chloride 64 MG Delay Rel.Tablet 128 MG PO (09:54)
[2020-08-29] MEDS: Cholecalciferol (VIT D3) 25 MCG TABLET (1,000 UNITS) 125 MCG PO (09:55)
[2020-08-29 10:05] LABS: Bedside Glucose 412 mg/dL (70-110)
[2020-08-29] MEDS: Ceftriaxone 1 GM/50 ML BAG IV (10:13)
[2020-08-29] MEDS: Furosemide 40 MG/4 ML Vial IV ×2 (10:16→16:54)
--- NOTE | 2020-08-29 10:17 | CON.PCM_ITS ---
Problem List (1) Non-pressure chronic ulcer of left heel and midfoot with fat layer exposed Status: Chronic (2) Type 2 diabetes mellitus with diabetic polyneuropathy Status: Chronic (3) Obesity Status: Chronic (4) Corns and callosities Status: Chronic Reason for Consult Date of Consultation: 08/29/20 Reason for Consultation: Left heel wound History of Present Illness: The patient is a 64 year old M who is well-known to me as a patient at the wound care center. Patient has a significant medical history including diabetes with neuropathy and significant callus buildup to bilateral feet, obesity, history of tobacco abuse. Patient was taken to the hospital after discovery of hypoxemia by home health care nurse. I have been seeing patient at the wound care center for chronic left lower extremity wound. Which this all started after significant buildup of callus tissue to his heel cracked down through the dermis creating the wound. Patient is obese and is unable to get to his feet in order to maintain proper hygiene. Patient has been a total contact cast last couple weeks with improvement noted in patient's wound and pain. Patient denies any current nausea fever vomiting chills chest pain or shortness of breath. It should be noted that patient is on nasal cannula oxygen at this time. Patient states that his foot has been feeling better [] 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 (Chronic) Non-pressure chronic ulcer of left heel and midfoot with fat layer exposed (Chronic) Tobacco abuse (Chronic) Obesity (Chronic) Tinea unguium (Chronic) Allergies codeine Adverse Reaction (Verified 08/28/20 10:16) Nausea promethazine [From Phenergan] Adverse Reaction (Verified 08/28/20 10:16) Nausea Home Medications: Ambulatory Orders Medication Instructions Recorded Ascorbic Acid [Vitamin C] 1,000 mg PO TID 07/11/20 Aspirin [Aspirin, Baby] 81 mg PO DAILY@0800 07/11/20 Atorvastatin Calcium [Lipitor] 80 mg PO QHS 07/11/20 Cholecalciferol (Vitamin D3) 5,000 unit PO DAILY 07/11/20 [Vitamin D3] Gabapentin [Neurontin] 600 mg PO TID 07/11/20 Glipizide [Glipizide ER] 10 mg PO DAILY 07/11/20 Insulin Glargine,Hum.rec.anlog 40 unit SQ DAILY 07/11/20 [Lantus Solostar] Insulin Glargine,Hum.rec.anlog 35 unit SQ BREAKFAST 07/11/20 [Lantus] Insulin Lispro [Humalog KwikPen] See Protocol SQ DAILY 07/11/20 Magnesium Oxide [Magnesium] 500 mg PO DAILY 07/11/20 Oxycodone HCl/Acetaminophen 1 tab PO TID 07/11/20 [Percocet 10-325 mg Tablet] Carvedilol [Coreg] 12.5 mg PO DAILY 08/17/20 Sildenafil Citrate [Viagra] 100 mg PO PRN PRN 08/17/20 Smoking Status: Current every day smoker Tobacco Use: Cigarettes Review of Systems Constitutional: Denies: Chills, Fever HEENT: Denies: Difficulty Hearing Cardiovascular: Reports: Edema. Denies: Chest Pain Respiratory: Denies: Cough, Shortness of Breath Gastrointestinal: Denies: Nausea, Vomiting Musculoskeletal: Reports: Foot Pain - Left foot Skin: Reports: Wounds - Left heel Neurological: Reports: Numbness, Tingling Patient Problems: Active and Suspected Problems Respiratory acidosis (Acute) Hypercarbia (Acute) - Physical Exam Vitals/I&O's: Vital Signs Temp Pulse Resp BP Pulse Ox 98.5 F 82 22 H 104/86 H 94 08/29/20 10:00 08/29/20 10:00 08/29/20 10:00 08/29/20 10:00 08/29/20 10:00 Oxygen Flow Rate (L/min) 8 Oxygen Delivery Method Nasal Cannula Weight: 125.781 kg Body Mass Index (BMI) 34.6 Intake and Output for Last 24 Hours 08/27/20 08/28/20 08/29/20 23:59 23:59 23:59 Intake Total 305.00 / 1105.00 1040 / 1040 Output Total 425 / 2625 2200 / 2200 Balance -120.00 / -1520.00 -1160 / -1160 General: Alert, Oriented x3, Cooperative HEENT: Atraumatic Abdomen: Obese Extremities: No clubbing, No cyanosis, Capillary Refill Less than 3 Seconds, No Calf Tenderness, Diminished Peripheral Pulses, Edema Skin: Ulcer/ Wound - Left heel ulceration with surrounding callus tissue noted. No malodor, erythema, purulence, probing to bone, streaking, fluctuation, crepitus, or other signs of infection. Skin is atrophic and hairless. Granular base Musculoskeletal: Tenderness - Left heel, improved Neurological: - - Decrease in epicritic sensation Microbiology Past 72 Hours 08/28/20 18:25 Urine, Clean Catch Legionella Antigen - Final 08/28/20 18:25 Urine, Clean Catch Streptococcus pneumoniae Antigen (M - Final 08/28/20 10:15 Mucosa - Nose SARS-CoV-2 Antigen (Rapid) - Final Laboratory Results 08/28/20 10:35: WBC 8.3, RBC 6.66 H, Hgb 18.4 H*, Hct 63.1 H, MCV 94.7 H, MCH 27.6, MCHC 29.2 L, RDW Std Deviation 56.6 H, RDW Coeff of Darrell 17.4 H, Plt Count 143 L, MPV 10.8, Immature Gran % (Auto) 0.200, Neut % (Auto) 65.7, Lymph % (Auto) 23.0, [place] % (Auto) 8.4, Eos % (Auto) 2.0, Baso % (Auto) 0.7, Absolute Neuts (auto) 5.5, Absolute Lymphs (auto) 1.92, Nucleated RBC % 0 08/28/20 10:35: B-Natriuretic Peptide 299.6 H 08/28/20 10:35: Sodium Cancelled, Potassium Cancelled, Chloride Cancelled, Carbon Dioxide Cancelled, Anion Gap Cancelled, BUN Cancelled, Creatinine Cancelled, Estim Creat Clear Calc Cancelled, Est GFR (MDRD) Af Amer Cancelled, Est GFR (MDRD) Non-Af Cancelled, BUN/Creatinine Ratio Cancelled, Glucose Cancelled, Calcium Cancelled, Total Bilirubin Cancelled, AST Cancelled, ALT Cancelled, Alkaline Phosphatase Cancelled, Troponin I Cancelled, Total Protein Cancelled, Albumin Cancelled, Globulin Cancelled, Albumin/Globulin Ratio Cancelled 08/28/20 10:52: Specimen Type ART, Sample Site L Radial, pH 7.29 L, Bicarbonate Actual 36.8 H, Total CO2 39, Base Excess 10 H, O2 Saturation 92 L, O2 % 50, ABG pCO2 77.2 H*, ABG pO2 74 L, Marquez Test Positive, O2 Delivery Device Venti Mask, Crit Call To/Read Back Yes 08/28/20 11:06: Sodium 138, Potassium 4.9, Chloride 104, Carbon Dioxide 33.0 H, Anion Gap 1 L, BUN 26 H, Creatinine 2.11 H, Estim Creat Clear Calc 41.16, Est GFR (MDRD) Af Amer 41 L, Est GFR (MDRD) Non-Af 34 L, BUN/Creatinine Ratio 12.3, Glucose 100, Calcium 8.8, Total Bilirubin 0.60, AST 17, ALT 35, Alkaline Phosphatase 137 H, Troponin I 0.047 H, Total Protein 7.5, Albumin 3.1 L, Globulin 4.4 H, Albumin/Globulin Ratio 0.7 L 08/28/20 15:07: POC Glucose 90 08/28/20 16:18: POC Glucose 95 08/28/20 16:26: Troponin I 0.042 08/28/20 19:20: Troponin I 0.045 08/28/20 20:54: POC Glucose 75 08/29/20 05:28: WBC 8.1, RBC 6.50 H, Hgb 18.1 H*, Hct 61.8 H, MCV 95.1 H, MCH 27.8, MCHC 29.3 L, RDW Std Deviation 55.8 H, RDW Coeff of Darrell 17.2 H, Plt Count 122 L, MPV 11.0, Immature Gran % (Auto) 0.200, Neut % (Auto) 70.8 H, Lymph % (Auto) 17.4 L, [place] % (Auto) 8.6, Eos % (Auto) 2.5, Baso % (Auto) 0.5, Absolute Neuts (auto) 5.7, Absolute Lymphs (auto) 1.41, Nucleated RBC % 0, Differential Comment SCANNED, Diff Path Review September foll 08/29/20 05:28: Sodium 134 L, Potassium 4.8, Chloride 96 L, Carbon Dioxide 38.0 H, Anion Gap 0 L, BUN 33 H, Creatinine 2.26 H, Estim Creat Clear Calc 38.43, Est GFR (MDRD) Af Amer 37 L, Est GFR (MDRD) Non-Af 31 L, BUN/Creatinine Ratio 14.6, Glucose 448 H, Calcium 8.7 08/29/20 06:40: POC Glucose 458 H* 08/29/20 09:50: POC Glucose 412 H Current Medications Acetaminophen (Acetaminophen 325 Mg Suppository) 650 mg RC Q4H PRN PRN PRN Reason: Pain Score 1-10/Temp > 100.7 F Acetaminophen (Acetaminophen 325 Mg Tablet) 650 mg PO Q6H PRN PRN PRN Reason: Pain Score 1-10/Temp > 100.7 F Last Admin: 08/29/20 01:28 Dose: 650 mg Documented by: Albuterol Sulfate (Albuterol 2.5 Mg/3 Ml Vial.Neb.) 2.5 mg INHALATION Q2H PRN PRN PRN Reason: SOB/Wheezing Ascorbic Acid (Ascorbic Acid 500 Mg Tablet) 1,000 mg PO TIDCM [facility] Last Admin: 08/29/20 09:53 Dose: 1,000 mg Documented by: Aspirin (Aspirin 81 Mg Tab.Chew) 81 mg PO DAILY@0800 [facility] Last Admin: 08/29/20 09:52 Dose: 81 mg Documented by: Atorvastatin Calcium (Atorvastatin Calcium 80 Mg Tablet) 80 mg PO QHS [facility] Last Admin: 08/28/20 20:57 Dose: 80 mg Documented by: Carvedilol (Carvedilol 12.5 Mg Tablet) 12.5 mg PO BID [facility] Last Admin: 08/29/20 09:53 Dose: 12.5 mg Documented by: Cholecalciferol (Cholecalciferol (Vit D3) 25 Mcg Tablet (1,000 Units)) 125 mcg PO DAILY [facility] Last Admin: 08/29/20 09:55 Dose: 125 mcg Documented by: Dextrose (Dextrose 50%-Water 25 Gm/50 Ml Disp.Syrin) 0 gm IV X1 PRN; Protocol PRN Reason: Hypoglycemia Enoxaparin Sodium (Enoxaparin 40 Mg/0.4 Ml Syringe) 40 mg SC DAILY [facility] Last Admin: 08/29/20 09:54 Dose: Not Given Documented by: Furosemide (Furosemide 40 Mg/4 Ml Vial) 40 mg IV BID@1000,1800 [facility] Last Admin: 08/28/20 18:13 Dose: 40 mg Documented by: Glucagon (Glucagon 1 Mg/Ml Syringe) 1 mg IM .X1 PRN PRN Reason: Hypoglycemia Guaifenesin (Guaifenesin 1,200 Mg Tablet) 1,200 mg PO BID [facility] Last Admin: 08/29/20 09:57 Dose: Not Given Documented by: Ceftriaxone Sodium (Rocephin) 1 gm in 50 mls @ 100 mls/hr IV Q24 [facility] Azithromycin 500 mg/ Dextrose 255 mls @ 250 mls/hr IV Q24 [facility] Insulin Glargine (Insulin Glargine 100 Units/Ml Pen) 15 units SC BREAKFAST [facility] Last Admin: 08/29/20 09:52 Dose: 15 u Documented by: Insulin Glargine (Insulin Glargine 100 Units/Ml Pen) 15 units SC DAILY@2200 [facility] Last Admin: 08/28/20 22:33 Dose: Not Given Documented by: Insulin Human Lispro (Insulin Lispro 100 Unit/Ml Insuln.Pen) 0 unit SC TIDAC [facility]; Protocol Last Admin: 08/29/20 06:55 Dose: Not Given Documented by: Magnesium Chloride (Magnesium Chloride 64 Mg Delay Rel.Tablet) 128 mg PO DAILY [facility] Last Admin: 08/29/20 09:54 Dose: 128 mg Documented by: Ondansetron HCl (Ondansetron 4 Mg/2 Ml Vial) 4 mg IV Q8H PRN PRN PRN Reason: NAUSEA/VOMITING Sodium Chloride (0.9% Saline Lock 10 Ml Syringe) 10 - 40 ml IV UD PRN PRN Reason: SALINE FLUSH Last Admin: 08/28/20 18:13 Dose: 10 ml Documented by: Assessment/Plan All Active Problems Respiratory acidosis (Acute) Hypercarbia (Acute) Left plantar heel ulceration to fat Left heel pain Calluses bilateral feet Diabetes with neuropathy Tobacco abuse Hypoxemia Patient seen and examined bedside resting comfortably with nasal cannula present A cast cutter was obtained and the total contact cast to the left lower extremity was removed in total without incident. Ulcer to the left lower extremity noted to be improved in appearance with less pain to palpation. No signs of infection. Left heel ulcer underwent sharp excisional nonselective debridement was carried out into the level of subcutaneous tissue with a #15 blade with removal of all devitalized, slough, biofilm, callus, and fibrous tissue. This was done without incidence. This was tolerated due to patient's neuropathy. Patient to continue wound care daily. Discussed and saw patient with wound care nurse. Surgical shoe ordered for offloading of ulceration site. Patient is to focus on toe-touch weightbearing left lower extremity Patient to follow-up with myself at the wound care center next Friday upon discharge. All questions answered No podiatry surgical plans Podiatry will continue to follow. Thank you for the consult. Chelsea Nair DPM [facility] [phone]
[2020-08-29] MEDS: Insulin Lispro 100 UNIT/ML INSULN.PEN SC ×3 (10:25→22:22)
--- NOTE | 2020-08-29 11:14 | NURSING ---
Applied aloe vesta to the right lower leg and applied the KASI wraps from the base of the toes to just below the knees. reminded patient that he is to be up only with boot in place to the LLE and with assistance only. pt very upset that he is to ask for help. Pt states that's the whole point of the boot. So I can get out without help. educated patient that the doctor suggested pt ask for help.
--- NOTE | 2020-08-29 11:15 | CASEMGMT ---
LU QUINTANILLA Face to Face with patient for initial transition planning/care coordination assessment. LU QUINTANILLA introduced self and role at [facility]. Patient sitting in chair, alert and oriented. Patient willing to participate in assessment and is able to answer all questions appropriately. Care providers, pharmacy, and demographics verified. Patient wishes to discharge home with resumption of HHC with [facility]. Patient states he has no further needs or concerns at this time. CM to follow for discharge planning needs that may arise. PCP: Stephanie Specialists: Shauna pain specialist; Korey computer hardware designer Preferred Pharmacy: [facility] Insurance: [employer] Prescription Benefit: yes Living Will/HPOA: yes daughter Shyann Salgado LNOK:daughter Living Arrangements: Patient lives alone in a 2 story home with bed and bath on first floor. Patient states he is independent at home. Transportation: self/friend DME/HHC: Patient states he has shower chair, grab bars, cane, walker at home. Patient states he has HHC but not sure what coming. States they come daily to do dressing changes. Patient follows at [facility]. LU CM call wound center and spoke with Ben. Ben states patient is active with [facility] for HHC. Disposition Plan: Patient to discharge home with resumption of HHC and follow-up plans in place. Liana ARORA, RN, CM
[2020-08-29 11:25] LABS: Erythrocyte Sedimentation Rate 35 mm/hr (0-20)
[2020-08-29 12:56] LABS: Pathologist Review Reviewed
--- NOTE | 2020-08-29 13:39 | CON.PCM_ITS ---
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 Patient has multiple health issues and reportedly has a home health aide that ca me to visit him this morning and found his pulse ox was in the 70s. Patient was transported to the emergency department for evaluation and was only in the 80s on 5 L. Patient denied any recent fever, chills, nausea or vomiting. Patient is followed by podiatry secondary to a chronic left foot infection. Patient states his cough is been at his baseline productive of clear to white sputum on a daily basis. In the ER, patient was noted to be hypoxic. A chest x-ray was suggestive of possible pneumonia and an ABG showed hypercarbia and hypoxia. Patient was placed on BiPAP, antibiotics and recommended to be admitted to the stepdown unit. Patient reportedly attempted to leave AMA, but was able to be talked back in to staying by his sister. Patient was given Ativan and Haldol to help with BiPAP compliance and admitted to the floor. Since being on the floor, patient has repeatedly refused to use BiPAP therapy and suggested leaving AMA. A pulmonary consult was obtained for recommendati ons. Patient is still requiring 8 L nasal cannula to maintain saturations. Patient is alert and oriented, but nursing is concerned that answers are not always consistent. Patient was very nonchalant on my evaluation. Patient does not believe he requires supplemental oxygen because he had no symptoms that brought him in. Patient states he is here only because of the aid. 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 Patient does have a history of lower extremity edema and has been told in the past that he needed supplemental oxygen. However, patient states I am not to use that stuff. Patient does not report a history of chronic inhaler use, but has been prescribed in the past during bronchitis. Patient does not use BiPAP at baseline. Patient has never seen a assistant bookkeeper and does not have a previous pulmonary function test available for review. Review of systems otherwise negative from a constitutional, HEENT, respiratory, cardiovascular, GI, genitourinary, musculoskeletal, skin, neurologic, psychiatric and hematologic system unless stated above. 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 (Chronic) Non-pressure chronic ulcer of left heel and midfoot with fat layer exposed (Chronic) Tobacco abuse (Chronic) Obesity (Chronic) Tinea unguium (Chronic) Allergies codeine Adverse Reaction (Verified 08/28/20 10:16) Nausea promethazine [From Phenergan] Adverse Reaction (Verified 08/28/20 10:16) Nausea Home Medications: Ambulatory Orders Medication Instructions Recorded Ascorbic Acid [Vitamin C] 1,000 mg PO TID 07/11/20 Aspirin [Aspirin, Baby] 81 mg PO DAILY@0800 07/11/20 Atorvastatin Calcium [Lipitor] 80 mg PO QHS 07/11/20 Cholecalciferol (Vitamin D3) 5,000 unit PO DAILY 07/11/20 [Vitamin D3] Gabapentin [Neurontin] 600 mg PO TID 07/11/20 Glipizide [Glipizide ER] 10 mg PO DAILY 07/11/20 Insulin Glargine,Hum.rec.anlog 40 unit SQ DAILY 07/11/20 [Lantus Solostar] Insulin Glargine,Hum.rec.anlog 35 unit SQ BREAKFAST 07/11/20 [Lantus] Insulin Lispro [Humalog KwikPen] See Protocol SQ DAILY 07/11/20 Magnesium Oxide [Magnesium] 500 mg PO DAILY 07/11/20 Oxycodone HCl/Acetaminophen 1 tab PO TID 07/11/20 [Percocet 10-325 mg Tablet] Carvedilol [Coreg] 12.5 mg PO DAILY 08/17/20 Sildenafil Citrate [Viagra] 100 mg PO PRN PRN 08/17/20 Smoking Status: Current every day smoker Tobacco Use: Cigarettes Review of Systems Unable to obtain accurate/complete ROS d/t: Patient not very forthcoming with history Patient Problems: Active and Suspected Problems Respiratory acidosis (Acute) Hypercarbia (Acute) Objective: Chest x-ray showed some bibasilar atelectasis, left greater than right. No pulmonary function test or echocardiogram is available for review. - Physical Exam Vitals/I&O's: Vital Signs Temp Pulse Resp BP Pulse Ox 36.8 C 72 18 145/76 H 97 08/29/20 10:50 08/29/20 10:50 08/29/20 10:50 08/29/20 10:50 08/29/20 10:50 Oxygen Flow Rate (L/min) 8 Oxygen Delivery Method Nasal Cannula Weight: 125.781 kg Body Mass Index (BMI) 34.6 Intake and Output for Last 24 Hours 08/27/20 08/28/20 08/29/20 23:59 23:59 23:59 Intake Total 305.00 / 1105.00 2065 / 2065 Output Total 425 / 2625 2700 / 2700 Balance -120.00 / -1520.00 -635 / -635 General: Alert, Oriented x3, Cooperative - Intermittently, - - No conversational dyspnea. William complexion. HEENT: Atraumatic, PERRLA, EOMI, Normocephalic, - - Slight scleral injection Oral: Moist Mucosa, No Gingival or Mucosal Lesions/ Ulcerations, - - Crowded posterior pharynx Neck: Supple, No JVD, No Nodes, Trachea Midline Lungs: No rhonchi, No rales, Diminished, Wheezes - Bilateral Cardiovascular: Regular rate, Regular Rhythm, Normal S1, Normal S2, No murmurs, No rub noted, No Gallop Abdomen: Bowel Sounds Present, Soft, Non Tender, Non-Distended, Obese Extremities: No cyanosis, Clubbing, Edema - 3+ bilateral lower extremities Skin: Ulcer/ Wound - Left lower extremity. Right lower extremity wrapped Musculoskeletal: No Tenderness to Palpation of Joints or Extremities Lymphatic: No Cervical, Supraclavicular, or Inguinal Adenopathy Neurological: Cranial nerves II-XII grossly intact, Neuro grossly intact, Motor Exam 5/5 strength throughout Psych/Mental Status: Anxious, Impulsive, Restless Microbiology Past 72 Hours 08/28/20 18:25 Urine, Clean Catch Legionella Antigen - Final 08/28/20 18:25 Urine, Clean Catch Streptococcus pneumoniae Antigen (M - Final 08/28/20 10:15 Mucosa - Nose SARS-CoV-2 Antigen (Rapid) - Final Laboratory Results 08/28/20 10:35: Diff Path Review Reviewed 08/28/20 15:07: POC Glucose 90 08/28/20 16:18: POC Glucose 95 08/28/20 16:26: Troponin I 0.042 08/28/20 19:20: Troponin I 0.045 08/28/20 20:54: POC Glucose 75 08/29/20 05:28: WBC 8.1, RBC 6.50 H, Hgb 18.1 H*, Hct 61.8 H, MCV 95.1 H, MCH 27.8, MCHC 29.3 L, RDW Std Deviation 55.8 H, RDW Coeff of Darrell 17.2 H, Plt Count 122 L, MPV 11.0, Immature Gran % (Auto) 0.200, Neut % (Auto) 70.8 H, Lymph % (Auto) 17.4 L, [place] % (Auto) 8.6, Eos % (Auto) 2.5, Baso % (Auto) 0.5, Absolute Neuts (auto) 5.7, Absolute Lymphs (auto) 1.41, Nucleated RBC % 0, Differential Comment SCANNED, Diff Path Review September08/29/20 05:28: Sodium 134 L, Potassium 4.8, Chloride 96 L, Carbon Dioxide 38.0 H, Anion Gap 0 L, BUN 33 H, Creatinine 2.26 H, Estim Creat Clear Calc 38.43, Est GFR (MDRD) Af Amer 37 L, Est GFR (MDRD) Non-Af 31 L, BUN/Creatinine Ratio 14.6, Glucose 448 H, Calcium 8.7 08/29/20 05:28: ESR 35 H 08/29/20 06:40: POC Glucose 458 H* 08/29/20 09:50: POC Glucose 412 H Current Medications Acetaminophen (Acetaminophen 325 Mg Suppository) 650 mg RC Q4H PRN PRN PRN Reason: Pain Score 1-10/Temp > 100.7 F Acetaminophen (Acetaminophen 325 Mg Tablet) 650 mg PO Q6H PRN PRN PRN Reason: Pain Score 1-10/Temp > 100.7 F Last Admin: 08/29/20 01:28 Dose: 650 mg Documented by: Albuterol Sulfate (Albuterol 2.5 Mg/3 Ml Vial.Neb.) 2.5 mg INHALATION Q2H PRN PRN PRN Reason: SOB/Wheezing Ascorbic Acid (Ascorbic Acid 500 Mg Tablet) 1,000 mg PO TIDCM [facility] Last Admin: 08/29/20 12:26 Dose: 1,000 mg Documented by: Aspirin (Aspirin 81 Mg Tab.Chew) 81 mg PO DAILY@0800 [facility] Last Admin: 08/29/20 09:52 Dose: 81 mg Documented by: Atorvastatin Calcium (Atorvastatin Calcium 80 Mg Tablet) 80 mg PO QHS [facility] Last Admin: 08/28/20 20:57 Dose: 80 mg Documented by: Carvedilol (Carvedilol 12.5 Mg Tablet) 12.5 mg PO BID [facility] Last Admin: 08/29/20 09:53 Dose: 12.5 mg Documented by: Cholecalciferol (Cholecalciferol (Vit D3) 25 Mcg Tablet (1,000 Units)) 125 mcg PO DAILY [facility] Last Admin: 08/29/20 09:55 Dose: 125 mcg Documented by: Dextrose (Dextrose 50%-Water 25 Gm/50 Ml Disp.Syrin) 0 gm IV X1 PRN; Protocol PRN Reason: Hypoglycemia Enoxaparin Sodium (Enoxaparin 40 Mg/0.4 Ml Syringe) 40 mg SC DAILY [facility] Last Admin: 08/29/20 09:54 Dose: Not Given Documented by: Furosemide (Furosemide 40 Mg/4 Ml Vial) 40 mg IV BID@1000,1800 [facility] Last Admin: 08/29/20 10:16 Dose: 40 mg Documented by: Glucagon (Glucagon 1 Mg/Ml Syringe) 1 mg IM .X1 PRN PRN Reason: Hypoglycemia Guaifenesin (Guaifenesin 1,200 Mg Tablet) 1,200 mg PO BID [facility] Last Admin: 08/29/20 09:57 Dose: Not Given Documented by: Ceftriaxone Sodium (Rocephin) 1 gm in 50 mls @ 100 mls/hr IV Q24 [facility] Last Infusion: 08/29/20 10:43 Dose: Infused Documented by: Azithromycin 500 mg/ Dextrose 255 mls @ 250 mls/hr IV Q24 [facility] Last Infusion: 08/29/20 11:50 Dose: Infused Documented by: Insulin Glargine (Insulin Glargine 100 Units/Ml Pen) 15 units SC BREAKFAST [facility] Last Admin: 08/29/20 09:52 Dose: 15 u Documented by: Insulin Glargine (Insulin Glargine 100 Units/Ml Pen) 15 units SC DAILY@2200 [facility] Last Admin: 08/28/20 22:33 Dose: Not Given Documented by: Insulin Human Lispro (Insulin Lispro 100 Unit/Ml Insuln.Pen) 0 unit SC TIDAC [facility]; Protocol Last Admin: 08/29/20 10:25 Dose: 7 unit Documented by: Magnesium Chloride (Magnesium Chloride 64 Mg Delay Rel.Tablet) 128 mg PO DAILY [facility] Last Admin: 08/29/20 09:54 Dose: 128 mg Documented by: Ondansetron HCl (Ondansetron 4 Mg/2 Ml Vial) 4 mg IV Q8H PRN PRN PRN Reason: NAUSEA/VOMITING Sodium Chloride (0.9% Saline Lock 10 Ml Syringe) 10 - 40 ml IV UD PRN PRN Reason: SALINE FLUSH Last Admin: 08/28/20 18:13 Dose: 10 ml Documented by: Clinical Impression(s) from Imaging Studies Chest X-Ray 08/28/20 10:34 IMPRESSION: Mild degree of CHF with superimposed bibasilar atelectasis and/or infiltrates worse at the left lung base with blunting of the left costophrenic angle. Electronically Signed: James Bell MD at 12:12 EDT , Service support , Assessment/Plan All Active Problems Respiratory acidosis (Acute) Hypercarbia (Acute) Polycythemia secondary to hypoxia (Acute) Acute respiratory failure with hypoxia and hypercapnia (Acute) RECOMMENDATIONS: 1. Continue diuresis as ordered 2. Await echocardiogram 3. Initiate bronchodilators and IV steroids 4. BiPAP with sleep 5. Monitor left heel ulcer healing 6. Consider palliative care consult IMPRESSIONS: 1. Acute combined respiratory failure with failure to tolerate BiPAP therapy Clinical suspicion for protracted hypoxia given patient's polycythemia and clubbing on exam. This is likely multifactorial. Anticipate an element of COPD, cor pulmonale and congestive heart failure. Echocardiogram and diuresis has been ordered. Okay to continue with bronchodilators. Will initiate patient empirically on steroids and bronchodilators given severity of hypoxia. Patient did state that he would be willing to use BiPAP with sleep if it will get me out of here sooner. Patient appears to be precontemplative on his overall desire to be aggressive. Ideally, patient should have a complete pulmonary function test as an outpatient given long smoking history for evaluation of probable concomitant COPD. However, it is unlikely the patient will be agreea ble. 2. Metabolic encephalopathy Patient was relatively straightforward and consistent about refusal for aggressive medical interventions. Unclear if patient has an element of baseline psychiatric illness. This will have to be evaluated as an outpatient. Agree with starting Seroquel. Avoid benzodiazepines and narcotics as this could exacerbate underlying delirium. 3. CKD stage IIIb/peripheral vascular disease secondary to uncontrolled diabetes mellitus Agree with decreasing basal insulin until p.o. intake improves. Patient does have a left lower extremity ulcer secondary to probable peripheral vascular disease and edema associated with probable cor pulmonale. 4. Obesity/repeated AMA/possible psychiatric condition/left lower extremity ulcer with slow healing Complicates care, management, recovery and prognosis. If patient is not willing to be aggressive in his treatment, and is found to be competent by psychiatry, evaluation by palliative care/hospice may be more appropriate. Do anticipate patient's clinical scenario could be improved if he were willing to comply with BiPAP and supplemental oxygen. Inpatient E&M: 66510 Init Hosp L3
--- NOTE | 2020-08-29 13:56 | CASEMGMT ---
H&P, FAINA order faxed to [facility] aware of pt admission. CM to follow. SStvincenzo LEIGH CM
[2020-08-29] MEDS: Ipratropium/Albuterol Sulfate 3 ML AMPUL.NEB INHALATION ×2 (14:15→19:10)
--- NOTE | 2020-08-29 14:50 | NURSING ---
Multiple attempts made to educate pt on diet, oxygen, and use of call light/ambulating with assistance d/t heel wound. Pt very resistive to care and states I'm going to do what I want.
[2020-08-29] MEDS: 0.9% Saline Lock 10 ML Syringe IV (15:01)
[2020-08-29 17:01] LABS: Bedside Glucose 320 mg/dL (70-110)
--- NOTE | 2020-08-29 20:06 | NURSING ---
2004: Went in room to assess pt. Pt c/o being hungry, offered food. Pt asked if he could use the urinal by himself. This nurse said yes, he could stand to use urinal, pt said ''but the alarm will go off''. Assured pt that it would go off but this nurse would just check on him to make sure he was steady, and did not fall. Pt asked why if he was allowed to get up and walk around by himself he had to have alarm on to pee. Advised pt that we do not want him getting up by himself and ambulating d/t risk of falling and wound on heel. Pt expressed frustration with alarm and states ''The said I could be up by myself and walking, that's why she put this boot on.'' Attempted to educate pt about falling and using call light, pt resisted. Left chair alarm on pt. LU Rosales
[2020-08-29] MEDS: QUEtiapine 25 MG Tablet PO (21:49)
[2020-08-29] MEDS: Atorvastatin Calcium 80 MG Tablet PO (21:50)
--- NOTE | 2020-08-29 22:30 | NURSING ---
2230: Pt refusing lab draw for backup glucose check. Pt bedside BG level 572; per protocol, need lab draw. Attempted to educate pt on need for lab draw, pt continues to refuse. Will notified Hospitalist. LU Rosales
[2020-08-30] VITALS (13 sets, daily range): BP systolic 108–151; BP diastolic 51–73; PULSE 66–95; RESP 12–21; TEMP 36.5–36.9; O2SAT 86–96
[2020-08-30 05:58] LABS: Absolute Lymphocyte Count 0.84 X10^3/uL (0.83-4.51); Absolute Neutrophil Count 8.4 X10^3/uL (2.0-7.7); Basophil# 0.01 X10^3/uL; Basophil% 0.1 % (0-1); Lymphocyte # 0.84 X10^3/ul (4.0); Lymphocyte % 8.9 % (19-41); Mean Corp Hgb Conc 29.4 g/dL (32-36); Mean Corpuscular Hgb 27.6 pg (27.0-32.0); Mean Corpuscular Volume 93.7 fL (80-94); Mean Platelet Vol. 11.2 fl (6.2-12.0); Monocyte# 0.16 X10^3/uL; Monocyte% 1.7 % (0-10); NRBC Flagged by Analyzer 0 % (0-5); Neutrophil # 8.41 X10^3/uL (2.7-7.7); Neutrophil % 88.9 % (47-70); Platelet Count 135 K/mm3 (150-450); RBC Distribution Width SD 52.6 fl (35.1-43.9); Red Blood Count 6.78 M/mm3 (4.6-6.2); White Blood Count 9.5 K/mm3 (4.4-11.0)
[2020-08-30 05:59] LABS: Hematocrit 63.5 % (40-54)
[2020-08-30 06:00] LABS: Hemoglobin 18.7 g/dL (13.0-16.5)
[2020-08-30 06:20] LABS: Differential Comment SCANNED
[2020-08-30 06:32] LABS: ALB/GLOB Ratio 0.5 RATIO (0.9-2.4); AST(SGOT) 12 U/L (15-37); Alanine Aminotransfer ALT/SGPT 23 U/L (16-61); Albumin, Serum 2.4 g/dL (3.2-5.0); Alkaline Phosphatase 138 U/L (45-117); Anion Gap 3 (5-15); BUN 44 mg/dL (7-18); BUN/Creat Ratio 16.5 RATIO (10-20); Calcium,Total 8.5 mg/dL (8.5-10.1); Chloride 93 mmol/L (98-107); Creatinine, Serum 2.67 mg/dL (0.70-1.30); EST Glomerular Filtration Rate 26 mL/min (>60); Est Glom Filt Rate - Afr Amer 31 mL/min (>60); Estimated Creatinine Clearance 32.53 ml/min; Globulin 4.4 g/dL (2.2-4.2); Glucose 480 mg/dL (74-106); Potassium 5.2 mmol/L (3.5-5.1); Protein, Total 6.8 g/dL (6.4-8.2); Sodium Level 127 mmol/L (136-145)
[2020-08-30 06:41] LABS: Bedside Glucose 456 mg/dL (70-110)
[2020-08-30] MEDS: Insulin Lispro 100 UNIT/ML INSULN.PEN 18 UNIT SC (06:59)
[2020-08-30 07:36] LABS: Bedside Glucose > 500 mg/dL (70-110)
[2020-08-30] MEDS: Ipratropium/Albuterol Sulfate 3 ML AMPUL.NEB INHALATION (07:39)
[2020-08-30 08:00] LABS: Hemoglobin A1c 8.7 % (3.8-5.6)
--- NOTE | 2020-08-30 09:05 | PCM.PROGNOTE ---
Patient Problems: Active and Suspected Problems Respiratory acidosis (Acute) Hypercarbia (Acute) Polycythemia secondary to hypoxia (Acute) Acute respiratory failure with hypoxia and hypercapnia (Acute) COPD (chronic obstructive pulmonary disease) (Suspected) Subjective: Patient seen and examined resting comfortably. Patient denies any new pedal complaints. Patient denies any nausea, fever, chills, chest pain, shortness of breath, cough, streaking, purulence, vomiting. Patient is wondering when he will be discharged - Physical Exam Vitals/I&O's: Vital Signs Temp Pulse Resp BP Pulse Ox 97.9 F 78 20 H 108/51 L 95 08/30/20 03:53 08/30/20 07:50 08/30/20 07:50 08/30/20 03:53 08/30/20 08:06 Oxygen Flow Rate (L/min) 4 Oxygen Delivery Method Nasal Cannula Weight: 125.781 kg Body Mass Index (BMI) 34.6 Intake and Output for Last 24 Hours 08/28/20 08/29/20 08/30/20 23:59 23:59 23:59 Intake Total 305.00 / 1105.00 2825 / 3705 1360 / 1360 Output Total 425 / 2625 4050 / 5905 2054 / 2054 Balance -120.00 / -1520.00 -1225 / -2200 -695 / -695 General: Alert, Oriented x3 HEENT: Atraumatic Abdomen: Obese Extremities: No clubbing, No cyanosis, No Calf Tenderness, Diminished Peripheral Pulses, Edema - Left greater than right Skin: Ulcer/ Wound - Left plantar heel ulceration. No malodor, erythema, purulence, probing to bone, streaking, fluctuation, crepitus, or other signs of infection. Skin is atrophic and hairless. Granular base, - - Chronic rubor discoloration to bilateral lower extremities Musculoskeletal: Tenderness - Left heel, improved Neurological: - - Decreased epicritic sensation Psych/Mental Status: Normal Affect, Appropriate Microbiology Past 72 Hours 08/28/20 18:25 Urine, Clean Catch Legionella Antigen - Final 08/28/20 18:25 Urine, Clean Catch Streptococcus pneumoniae Antigen (M - Final 08/28/20 10:15 Mucosa - Nose SARS-CoV-2 Antigen (Rapid) - Final Laboratory Results 08/28/20 10:35: Diff Path Review Reviewed 08/29/20 05:28: ESR 35 H 08/29/20 09:50: POC Glucose 412 H 08/29/20 16:52: POC Glucose 320 H 08/29/20 21:46: POC Glucose > 500 H* 08/30/20 05:24: WBC 9.5, RBC 6.78 H, Hgb 18.7 H*, Hct 63.5 H, MCV 93.7, MCH 27.6, MCHC 29.4 L, RDW Std Deviation 52.6 H, RDW Coeff of Darrell 17.0 H, Plt Count 135 L, MPV 11.2, Immature Gran % (Auto) 0.400, Neut % (Auto) 88.9 H, Lymph % (Auto) 8.9 L, [place] % (Auto) 1.7, Eos % (Auto) 0.0, Baso % (Auto) 0.1, Absolute Neuts (auto) 8.4 H, Absolute Lymphs (auto) 0.84, Nucleated RBC % 0, Differential Comment SCANNED, Diff Path Review May foll 08/30/20 05:24: Sodium 127 L, Potassium 5.2 H, Chloride 93 L, Carbon Dioxide 31.0, Anion Gap 3 L, BUN 44 H, Creatinine 2.67 H, Estim Creat Clear Calc 32.53, Est GFR (MDRD) Af Amer 31 L, Est GFR (MDRD) Non-Af 26 L, BUN/Creatinine Ratio 16.5, Glucose 480 H*, Calcium 8.5, Total Bilirubin 0.50, AST 12 L, ALT 23, Alkaline Phosphatase 138 H, Total Protein 6.8, Albumin 2.4 L, Globulin 4.4 H, Albumin/Globulin Ratio 0.5 L 08/30/20 06:30: Hemoglobin A1c 8.7 H 08/30/20 06:36: POC Glucose 456 H* Current Medications Acetaminophen (Acetaminophen 325 Mg Suppository) 650 mg RC Q4H PRN PRN PRN Reason: Pain Score 1-10/Temp > 100.7 F Acetaminophen (Acetaminophen 325 Mg Tablet) 650 mg PO Q6H PRN PRN PRN Reason: Pain Score 1-10/Temp > 100.7 F Last Admin: 08/29/20 01:28 Dose: 650 mg Documented by: Albuterol Sulfate (Albuterol 2.5 Mg/3 Ml Vial.Neb.) 2.5 mg INHALATION Q2H PRN PRN PRN Reason: SOB/Wheezing Albuterol/Ipratropium (Ipratropium/Albuterol Sulfate 3 Ml Ampul.Neb) 3 ml INHALATION Q6HWA.RT [facility] Last Admin: 08/30/20 07:39 Dose: 3 ml Documented by: Ascorbic Acid (Ascorbic Acid 500 Mg Tablet) 1,000 mg PO TIDCM [facility] Last Admin: 08/29/20 16:54 Dose: 1,000 mg Documented by: Aspirin (Aspirin 81 Mg Tab.Chew) 81 mg PO DAILY@0800 [facility] Last Admin: 08/29/20 09:52 Dose: 81 mg Documented by: Atorvastatin Calcium (Atorvastatin Calcium 80 Mg Tablet) 80 mg PO QHS [facility] Last Admin: 08/29/20 21:50 Dose: 80 mg Documented by: Carvedilol (Carvedilol 12.5 Mg Tablet) 12.5 mg PO BID [facility] Last Admin: 08/29/20 21:48 Dose: 12.5 mg Documented by: Cholecalciferol (Cholecalciferol (Vit D3) 25 Mcg Tablet (1,000 Units)) 125 mcg PO DAILY [facility] Last Admin: 08/29/20 09:55 Dose: 125 mcg Documented by: Dextrose (Dextrose 50%-Water 25 Gm/50 Ml Disp.Syrin) 0 gm IV X1 PRN; Protocol PRN Reason: Hypoglycemia Enoxaparin Sodium (Enoxaparin 40 Mg/0.4 Ml Syringe) 40 mg SC DAILY [facility] Last Admin: 08/29/20 09:54 Dose: Not Given Documented by: Furosemide (Furosemide 40 Mg/4 Ml Vial) 40 mg IV BID@1000,1800 [facility] Last Admin: 08/29/20 16:54 Dose: 40 mg Documented by: Glucagon (Glucagon 1 Mg/Ml Syringe) 1 mg IM .X1 PRN PRN Reason: Hypoglycemia Guaifenesin (Guaifenesin 1,200 Mg Tablet) 1,200 mg PO BID [facility] Last Admin: 08/29/20 21:55 Dose: Not Given Documented by: Ceftriaxone Sodium (Rocephin) 1 gm in 50 mls @ 100 mls/hr IV Q24 [facility] Last Infusion: 08/29/20 10:43 Dose: Infused Documented by: Azithromycin 500 mg/ Dextrose 255 mls @ 250 mls/hr IV Q24 [facility] Last Infusion: 08/29/20 11:50 Dose: Infused Documented by: Insulin Glargine (Insulin Glargine 100 Units/Ml Pen) 25 units SC BREAKFAST [facility] Insulin Glargine (Insulin Glargine 100 Units/Ml Pen) 25 units SC DAILY@2200 [facility] Insulin Human Lispro (Insulin Lispro 100 Unit/Ml Insuln.Pen) 0 unit SC ACHS & 3AM [facility]; Protocol Last Admin: 08/30/20 07:16 Dose: Not Given Documented by: Magnesium Chloride (Magnesium Chloride 64 Mg Delay Rel.Tablet) 128 mg PO DAILY [facility] Last Admin: 08/29/20 09:54 Dose: 128 mg Documented by: Methylprednisolone (Methylprednisolone 40 Mg/Ml Vial) 40 mg IV Q8 [facility] Last Admin: 08/30/20 06:34 Dose: 40 mg Documented by: Ondansetron HCl (Ondansetron 4 Mg/2 Ml Vial) 4 mg IV Q8H PRN PRN PRN Reason: NAUSEA/VOMITING Quetiapine Fumarate (Quetiapine 25 Mg Tablet) 25 mg PO QHS [facility] Last Admin: 08/29/20 21:49 Dose: 25 mg Documented by: Sodium Chloride (0.9% Saline Lock 10 Ml Syringe) 10 - 40 ml IV UD PRN PRN Reason: SALINE FLUSH Last Admin: 08/29/20 15:01 Dose: 20 ml Documented by: Medical Necessity - Tobacco Use Smoking Status: Current every day smoker Tobacco Use: Cigarettes Assessment/Plan All Active Problems Respiratory acidosis (Acute) Hypercarbia (Acute) Polycythemia secondary to hypoxia (Acute) Acute respiratory failure with hypoxia and hypercapnia (Acute) Left plantar heel ulceration to fat Left heel pain Calluses bilateral feet Diabetes with neuropathy Tobacco abuse Hypoxemia Patient seen and examined bedside resting comfortably with nasal cannula present Ulcer to the left lower extremity noted to be improved in appearance with less pain to palpation. No signs of infection. Patient to continue wound care daily. Discussed and saw patient with wound care nurse. Surgical shoe ordered for offloading of ulceration site. Patient is to focus on toe-touch weightbearing left lower extremity Patient to follow-up with myself at the wound care center next Friday upon discharge. All questions answered No podiatry surgical plans Podiatry will continue to follow. Chelsea Nair DPM [facility] [phone]
[2020-08-30] MEDS: 0.9% Saline Lock 10 ML Syringe IV (09:17)
[2020-08-30] MEDS: Ceftriaxone 1 GM/50 ML BAG IV (09:17)
[2020-08-30] MEDS: Furosemide 40 MG/4 ML Vial IV (09:17)
[2020-08-30] MEDS: Cholecalciferol (VIT D3) 25 MCG TABLET (1,000 UNITS) 125 MCG PO (09:18)
[2020-08-30] MEDS: Magnesium Chloride 64 MG Delay Rel.Tablet 128 MG PO (09:18)
[2020-08-30] MEDS: Ascorbic Acid 500 MG Tablet 1000 MG PO ×2 (09:18→11:54)
[2020-08-30] MEDS: Carvedilol 12.5 MG Tablet PO (09:18)
[2020-08-30] MEDS: guaiFENesin 1,200 MG Tablet 1200 MG PO (09:18)
[2020-08-30] MEDS: Aspirin 81 MG TAB.CHEW PO (09:18)
[2020-08-30] MEDS: Enoxaparin 40 MG/0.4 ML Syringe SC (09:28)
--- NOTE | 2020-08-30 10:03 | PCM.PN.PUL ---
Patient Problems: Active and Suspected Problems Respiratory acidosis (Acute) Hypercarbia (Acute) Polycythemia secondary to hypoxia (Acute) Acute respiratory failure with hypoxia and hypercapnia (Acute) COPD (chronic obstructive pulmonary disease) (Suspected) Subjective: Patient did well overnight. Patient actually wore his BiPAP therapy with sleep. Patient states he feels no different than yesterday despite going from 8 L nasal cannula to 2 L nasal cannula. Patient is not reporting any productive cough. Objective: Echocardiogram showed an EF of 65%, but unable to quantify pulmonary artery pressures. Patient was noted to have moderate LVH, but no significant valvular abnormalities. - Physical Exam Vitals/I&O's: Vital Signs Temp Pulse Resp BP Pulse Ox 36.5 C L 69 18 130/63 H 88 08/30/20 09:17 08/30/20 09:17 08/30/20 09:17 08/30/20 09:17 08/30/20 10:02 Oxygen Flow Rate (L/min) 2 Oxygen Delivery Method Nasal Cannula Weight: 125.781 kg Body Mass Index (BMI) 34.6 Intake and Output for Last 24 Hours 08/28/20 08/29/20 08/30/20 23:59 23:59 23:59 Intake Total 305.00 / 1105.00 2825 / 3705 1410 / 1410 Output Total 425 / 2625 4050 / 5905 2054 / 2054 Balance -120.00 / -1520.00 -1225 / -2200 -645 / -645 General: Alert, Oriented x3, Cooperative, - - Irritable. Obese. HEENT: Atraumatic, PERRLA, EOMI, Normocephalic, - - Slight scleral injection Oral: Moist Mucosa, No Gingival or Mucosal Lesions/ Ulcerations, - - Carotid posterior pharynx Neck: Supple, No Nodes, Trachea Midline Lungs: No rhonchi, No rales, Diminished - Better air exchange compared to yesterday, Wheezes Cardiovascular: Regular rate, Regular Rhythm, Normal S1, Normal S2, No murmurs, No rub noted, No Gallop Abdomen: Bowel Sounds Present, Soft, Non Tender, Non-Distended, Obese Extremities: No clubbing, No cyanosis, Edema - Improving Skin: - - No change compared to previous Musculoskeletal: No Tenderness to Palpation of Joints or Extremities Lymphatic: No Cervical, Supraclavicular, or Inguinal Adenopathy Neurological: Cranial nerves II-XII grossly intact, Neuro grossly intact, Motor Exam 5/5 strength throughout Psych/Mental Status: Anxious, Impulsive, Restless Microbiology Past 72 Hours 08/28/20 18:25 Urine, Clean Catch Legionella Antigen - Final 08/28/20 18:25 Urine, Clean Catch Streptococcus pneumoniae Antigen (M - Final 08/28/20 10:15 Mucosa - Nose SARS-CoV-2 Antigen (Rapid) - Final Laboratory Results 08/28/20 10:35: Diff Path Review Reviewed 08/29/20 05:28: ESR 35 H 08/29/20 09:50: POC Glucose 412 H 08/29/20 16:52: POC Glucose 320 H 08/29/20 21:46: POC Glucose > 500 H* 08/30/20 05:24: WBC 9.5, RBC 6.78 H, Hgb 18.7 H*, Hct 63.5 H, MCV 93.7, MCH 27.6, MCHC 29.4 L, RDW Std Deviation 52.6 H, RDW Coeff of Darrell 17.0 H, Plt Count 135 L, MPV 11.2, Immature Gran % (Auto) 0.400, Neut % (Auto) 88.9 H, Lymph % (Auto) 8.9 L, Norman % (Auto) 1.7, Eos % (Auto) 0.0, Baso % (Auto) 0.1, Absolute Neuts (auto) 8.4 H, Absolute Lymphs (auto) 0.84, Nucleated RBC % 0, Differential Comment SCANNED, Diff Path Review September08/30/20 05:24: Sodium 127 L, Potassium 5.2 H, Chloride 93 L, Carbon Dioxide 31.0, Anion Gap 3 L, BUN 44 H, Creatinine 2.67 H, Estim Creat Clear Calc 32.53, Est GFR (MDRD) Af Amer 31 L, Est GFR (MDRD) Non-Af 26 L, BUN/Creatinine Ratio 16.5, Glucose 480 H*, Calcium 8.5, Total Bilirubin 0.50, AST 12 L, ALT 23, Alkaline Phosphatase 138 H, Total Protein 6.8, Albumin 2.4 L, Globulin 4.4 H, Albumin/Globulin Ratio 0.5 L 08/30/20 06:30: Hemoglobin A1c 8.7 H 08/30/20 06:36: POC Glucose 456 H* Current Medications Acetaminophen (Acetaminophen 325 Mg Suppository) 650 mg RC Q4H PRN PRN PRN Reason: Pain Score 1-10/Temp > 100.7 F Acetaminophen (Acetaminophen 325 Mg Tablet) 650 mg PO Q6H PRN PRN PRN Reason: Pain Score 1-10/Temp > 100.7 F Last Admin: 08/29/20 01:28 Dose: 650 mg Documented by: Albuterol Sulfate (Albuterol 2.5 Mg/3 Ml Vial.Neb.) 2.5 mg INHALATION Q2H PRN PRN PRN Reason: SOB/Wheezing Albuterol/Ipratropium (Ipratropium/Albuterol Sulfate 3 Ml Ampul.Neb) 3 ml INHALATION Q6HWA.RT [facility] Last Admin: 08/30/20 07:39 Dose: 3 ml Documented by: Ascorbic Acid (Ascorbic Acid 500 Mg Tablet) 1,000 mg PO TIDCM [facility] Last Admin: 08/30/20 09:18 Dose: 1,000 mg Documented by: Aspirin (Aspirin 81 Mg Tab.Chew) 81 mg PO DAILY@0800 [facility] Last Admin: 08/30/20 09:18 Dose: 81 mg Documented by: Atorvastatin Calcium (Atorvastatin Calcium 80 Mg Tablet) 80 mg PO QHS [facility] Last Admin: 08/29/20 21:50 Dose: 80 mg Documented by: Carvedilol (Carvedilol 12.5 Mg Tablet) 12.5 mg PO BID [facility] Last Admin: 08/30/20 09:18 Dose: 12.5 mg Documented by: Cholecalciferol (Cholecalciferol (Vit D3) 25 Mcg Tablet (1,000 Units)) 125 mcg PO DAILY [facility] Last Admin: 08/30/20 09:18 Dose: 125 mcg Documented by: Dextrose (Dextrose 50%-Water 25 Gm/50 Ml Disp.Syrin) 0 gm IV X1 PRN; Protocol PRN Reason: Hypoglycemia Enoxaparin Sodium (Enoxaparin 40 Mg/0.4 Ml Syringe) 40 mg SC DAILY [facility] Last Admin: 08/30/20 09:28 Dose: 40 mg Documented by: Furosemide (Furosemide 40 Mg/4 Ml Vial) 40 mg IV BID@1000,1800 [facility] Last Admin: 08/30/20 09:17 Dose: 40 mg Documented by: Glucagon (Glucagon 1 Mg/Ml Syringe) 1 mg IM .X1 PRN PRN Reason: Hypoglycemia Guaifenesin (Guaifenesin 1,200 Mg Tablet) 1,200 mg PO BID [facility] Last Admin: 08/30/20 09:18 Dose: 1,200 mg Documented by: Ceftriaxone Sodium (Rocephin) 1 gm in 50 mls @ 100 mls/hr IV Q24 [facility] Last Infusion: 08/30/20 10:02 Dose: Infused Documented by: Azithromycin 500 mg/ Dextrose 255 mls @ 250 mls/hr IV Q24 [facility] Last Infusion: 08/29/20 11:50 Dose: Infused Documented by: Insulin Glargine (Insulin Glargine 100 Units/Ml Pen) 25 units SC BREAKFAST [facility] Last Admin: 08/30/20 09:19 Dose: 25 u Documented by: Insulin Glargine (Insulin Glargine 100 Units/Ml Pen) 25 units SC DAILY@2200 [facility] Insulin Human Lispro (Insulin Lispro 100 Unit/Ml Insuln.Pen) 0 unit SC ACHS & 3AM [facility]ENDA; Protocol Last Admin: 08/30/20 07:16 Dose: Not Given Documented by: Magnesium Chloride (Magnesium Chloride 64 Mg Delay Rel.Tablet) 128 mg PO DAILY [facility] Last Admin: 08/30/20 09:18 Dose: 128 mg Documented by: Methylprednisolone (Methylprednisolone 40 Mg/Ml Vial) 40 mg IV Q8 [facility] Last Admin: 08/30/20 06:34 Dose: 40 mg Documented by: Ondansetron HCl (Ondansetron 4 Mg/2 Ml Vial) 4 mg IV Q8H PRN PRN PRN Reason: NAUSEA/VOMITING Quetiapine Fumarate (Quetiapine 25 Mg Tablet) 25 mg PO QHS [facility] Last Admin: 08/29/20 21:49 Dose: 25 mg Documented by: Sodium Chloride (0.9% Saline Lock 10 Ml Syringe) 10 - 40 ml IV UD PRN PRN Reason: SALINE FLUSH Last Admin: 08/30/20 09:17 Dose: 10 ml Documented by: Clinical Impression(s) from Imaging Studies Echocardiogram 08/28/20 15:26 Interpretation Summary The study was technically difficult. Contrast injection was performed. Left ventricular systolic function is normal. The estimated ejection fraction is 65 %. Moderate concentric left ventricular hypertrophy. Trivial mitral valve insufficiency. Trivial tricuspid valve insufficiency. Unable to estimate RV systolic pressure/pulmonary artery pressure due to technically difficult study. No evidence for diastolic dysfunction. Ordering Physician: Toney Dodd Referring Physician: no PCP noted Performed By: Christopher Shipman RCS Medical Necessity - Tobacco Use Smoking Status: Current every day smoker Tobacco Use: Cigarettes Assessment/Plan All Active Problems Respiratory acidosis (Acute) Hypercarbia (Acute) Polycythemia secondary to hypoxia (Acute) Acute respiratory failure with hypoxia and hypercapnia (Acute) RECOMMENDATIONS: 1. Continue diuresis as ordered 2. Obtain walking oximetry. Okay to discharge if tolerates ambulation on 6 L or less 3. Continue bronchodilators. Likely okay to transition to prednisone to complete a 5-day burst 4. BiPAP with sleep 5. Monitor left heel ulcer healing 6. Consider palliative care consult IMPRESSIONS: 1. Acute combined respiratory failure with failure to tolerate BiPAP therapy Clinical suspicion for protracted hypoxia given patient's polycythemia and clubbing on exam. This is likely multifactorial. Anticipate an element of COPD, cor pulmonale and congestive heart failure. Echocardiogram was relatively unremarkable. Patient has responded to diuresis well. Okay to continue with bronchodilators. If able to tolerate ambulation on 6 L or less, possible discharge from a pulmonary perspective. Would complete a 5-day burst of steroids as an outpatient. Patient did state that he would be willing to use BiPAP with sleep if it will get me out of here sooner. Patient appears to be precontemplative on his overall desire to be aggressive. Ideally, patient should have a complete pulmonary function test as an outpatient given long smoking history for evaluation of probable concomitant COPD. However, it is unlikely the patient will be agreeable. 2. Metabolic encephalopathy Patient was relatively straightforward and consistent about refusal for aggressive medical interventions. Unclear if patient has an element of baseline psychiatric illness. This will have to be evaluated as an outpatient. Agree with starting Seroquel. Avoid benzodiazepines and narcotics as this could exacerbate underlying delirium. 3. CKD stage IIIb/peripheral vascular disease secondary to uncontrolled diabetes mellitus Agree with decreasing basal insulin until p.o. intake improves. Patient does have a left lower extremity ulcer secondary to probable peripheral vascular disease and edema associated with probable cor pulmonale. 4. Obesity/repeated AMA/possible psychiatric condition/left lower extremity ulcer with slow healing Complicates care, management, recovery and prognosis. If patient is not willing to be aggressive in his treatment, and is found to be competent by psychiatry, evaluation by palliative care/hospice may be more appropriate. Do anticipate patient's clinical scenario could be improved if he were willing to comply with BiPAP and supplemental oxygen. Inpatient E&M: 30852 Subs Hosp L2
[2020-08-30 12:00] LABS: Bedside Glucose > 500 mg/dL (70-110)
[2020-08-30] MEDS: Insulin Lispro 100 UNIT/ML INSULN.PEN SC (12:02)
--- NOTE | 2020-08-30 12:35 | DCINST_ITS ---
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 Keep extremity elevated above heart level: Left Leg - surgical shoe. Call your doctor if your incision/area has: Continuous Slow Oozing, Sudden Increased Bleeding, Increased Pain/ Swelling Call your doctor if you observe: Shortness of breath Instructions: Heart Failure: Making Changes to Your Diet, Heart Failure: Medications to Help Your Heart, Heart Failure, What Is Heart Failure?, Heart Failure: Warning Signs of a Flare-Up, Heart Failure: Tracking Your Weight Additional Instructions: Oxygen 2 liters nasal cannula continuous. Allergies/Adverse Reactions: Allergies codeine Adverse Reaction (Verified 08/28/20 10:16) Nausea promethazine [From Phenergan] Adverse Reaction (Verified 08/28/20 10:16) Nausea Medications to take at Discharge Ascorbic Acid [Vitamin C] 1,000 mg PO TID 07/11/20 Aspirin [Aspirin, Baby] 81 mg PO DAILY@0800 07/11/20 Atorvastatin Calcium [Lipitor] 80 mg PO QHS 07/11/20 Cholecalciferol (Vitamin D3) [Vitamin D3] 5,000 unit PO DAILY 07/11/20 Glipizide [Glipizide ER] 10 mg PO DAILY 07/11/20 Insulin Glargine,Hum.rec.anlog [Lantus Solostar] 40 unit SQ DAILY 07/11/20 Insulin Glargine,Hum.rec.anlog [Lantus] 35 unit SQ BREAKFAST 07/11/20 Insulin Lispro [Humalog KwikPen] See Protocol SQ DAILY 07/11/20 Magnesium Oxide [Magnesium] 500 mg PO DAILY 07/11/20 Oxycodone HCl/Acetaminophen [Percocet 10-325 mg Tablet] 1 tab PO TID 07/11/20 Carvedilol [Coreg] 12.5 mg PO DAILY 08/17/20 Albuterol Inhaler [Ventolin Hfa] 2 puff INHALATION Q4H PRN PRN #1 inhaler 08/30/20 Furosemide [Lasix] 40 mg PO BID@1000,1800 #60 tablet 08/30/20 Prednisone 4 tablet PO DAILY #20 tablet 08/30/20 Quetiapine Fumarate [Seroquel] 25 mg PO QHS #30 tablet 08/30/20 The following prescriptions were given: Furosemide [Lasix] 40 mg PO BID@1000,1800 #60 tablet Transmission Status: Pending to [facility] Prednisone 4 tablet PO DAILY #20 tablet Transmission Status: Pending to [facility] Quetiapine Fumarate [Seroquel] 25 mg PO QHS #30 tablet Transmission Status: Pending to [facility] Albuterol Inhaler [Ventolin Hfa] 2 puff INHALATION Q4H PRN PRN #1 inhaler PRN Reason: Shortness Of Breath Transmission Status: Pending to [facility] Primary Care Physician: Khushbu Doctor,Out of [NON-STAFF] - Please follow up with your Primary Care Physician in: [place] (or new PCP) in 1-2 weeks Test Results: Test results from this visit will be discussed in further detail at your follow- up appointment, if applicable. Please Follow Up With: Chelsea Nair DPM - podiatry When: Friday Please Follow Up With: Paris Carvajal NP, [facility] - pulmonology When: 2 weeks Please Follow Up With: psychiatry When: 1-2 weeks Proposed Discharge Date: 08/30/20
--- NOTE | 2020-08-30 13:15 | CASEMGMT ---
Per Arleen LEIGH, pt qualifies for 2L continuous home oxygen. This RN CM to room and after provided list of in-network DME companies, pt states he would like either [employer] or [facility] and states he wants the one that is closest to [facility]. Per the internet map, [employer] is 1.4 miles from [facility] and [facility] is 2.0 miles. Referral faxed to [facility] and call to [facility] to notify of referral/discharge today, voices understanding. D/C instructions fax[facility] to [facility] and call to [facility] to notify of pt discharge, voices understanding. D/C summary to be faxed once obtained. CM to follow for any further discharge planning/needs. Ciro LEIGH CM
--- NOTE | 2020-08-30 13:30 | PCM.DC.SUM ---
Discharge Date and Diagnosis - Problem List Patient Problems: Active and Suspected Problems Respiratory acidosis (Acute) Hypercarbia (Acute) Polycythemia secondary to hypoxia (Acute) Acute respiratory failure with hypoxia and hypercapnia (Acute) COPD (chronic obstructive pulmonary disease) (Suspected) Date of Admission: 08/28/20 Date of Discharge: 08/30/20 - Primary Discharge Diagnosis Acute Problems: Active Problems 1. acute hypoxic respiratory failure improved. 2/2 CHF +/- PNA +/- CAMACHO not tolerating BiPAP, currently tolerating 8 liters NC wean oxygen as tolerated consult pulm requires 2liters continuous 2. Acute HFpEF EF 60%, may be complicated by pulmonary HTN (echo unable to determine RV pressures) change to PO prednisone continue carvedilol 3. respiratory acidosis as above 4. metabolic encephalopathy resolved 2/2 above +/- medications plus underlying psychiatric disorder NOS hold gabapentin continue seroquel outpt psychiatry eval patient denies suicidal ideation 5. CKD IIIb monitor follow up with nephrology as outpt 6. DM2 uncontrolled resume home dosing of glargine exacerbated by steroids a1c 8.7 7. Elevated troponin suspect d/t demand ischemia resolved 8. VTE prophylaxis: LMWH 9. left heel ulcer Toe weight bearing, surgical shoe follow up with Dr. 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 Electronically Signed: James Bell MD at 12:12 EDT , Service support , Echocardiogram 08/28/20 15:26 Interpretation Summary The study was technically difficult. Contrast injection was performed. Left ventricular systolic function is normal. The estimated ejection fraction is 65 %. Moderate concentric left ventricular hypertrophy. Trivial mitral valve insufficiency. Trivial tricuspid valve insufficiency. Unable to estimate RV systolic pressure/pulmonary artery pressure due to technically difficult study. No evidence for diastolic dysfunction. Ordering Physician: Toney Dodd Referring Physician: no PCP noted Performed By: Christopher Shipman RCS Consultations 08/28/20 15:26 Consult: Onc/Wound/senior facilities manager Routine Comment: Richie, pulmonology Korey, podiatry Summary of Care Provided: The patient is a 64 year old M hypoxic at home with a pulse ox of 70%. Transition to nonrebreather and put on BiPAP in the emergency room. Patient had respiratory acidosis with a pH of 7.29. Patient was somnolent upon the first evaluation. Patient was treated for heart failure as well as [place] for pneumonia. Later in the emergency room, patient became very agitated and did require sedation with medications and was delayed demanding to leave AGAINST MEDICAL ADVICE. Patient eventually relented and stayed. The following day patient was very belligerent and verbally abusive towards myself and staff. Patient was threatening to leave AMA. I told him that I strongly discouraged him from leaving AMA and discussed risks including . When I was discussing this with him he stated that he had the PE. I told him I wanted just to further clarify that before I got him the urinal and he 1 nothing do that and demanded I give him the urinal to which I did handed to him. So we went back to have him sign AMA forms and reiterated the risks including respiratory failure myocardial infarction amongst others. He signed the paperwork and came back to address CODE STATUS because he is still requiring a lot of oxygen. And he was on the phone with his sister. His sister is a nurse up in [place] and she immediately requested a psychiatric evaluation for him. I informed her that we did not have a psychiatric evaluation but I did inform her that I did previous ask him that he is not suicidal at this time. Patient seen and examined independently. Data reviewed. I agree with the above note by the physician staff physical therapy assistant. Asked her what his psychiatric history was and she denied that he ever had a psychiatric history though she immediately requested when I first started speaking with her. So we consulted pulmonology to see the patient. Patient was continue to diurese and actually did very well and 2 L and would require that continuously. Patient did have some worsening of his kidney function with the IV furosemide to be transitioned over to oral. Patient will need to have left for a follow-up as outpatient. The patient have respiratory failure due to CHF but also likely due to some other line lung disease which will need to be further elucidated as outpatient with pulmonary follow-up. Patient need follow-up with pulmonary to have pulmonary function tests as well as a polysomnogram which patient stated that he already had scheduled. Patient will need follow-up pulmonology to see about getting a BiPAP. The question is if patient be compliant with any of these follow-up appointments and also if he were to get BiPAP if he were to be compliant with that. Patient was not compliant with the BiPAP during much of his hospitalization. Patient was treated empirically for pneumonia but infectious work-up was negative so antibiotics will be discontinued moving forward. Patient still continue to demand leaving today. Presently patient's oxygen is doing much better. Patient still belligerent towards myself. He refused to let me examine him today. He told me if you discharge me today, I will be your best friend, motherchristieer. Patient has been better behaved during this hospitalization part of the could be related to CO2 narcosis but suspect it is patient has underlying psychiatric disorder that not been fully elucidated sure if it has not may been done when he was under the care of a Dr. Frias in [place] or his physicians in [facility]. Patient does need to see a psychiatrist for further stabilization of his underlying psychiatric disorder. If indeed what his sister implies is true that he was preferably competent before then patient may need to be evaluated for dementia, such as frontal lobe dementia, with neurology. Patient will be discharged today in stable condition. He will require oxygen 2 L continuous as he was 86% on room air. Patient will continue with furosemide orally. Patient will need to follow-up with pulmonary, psychiatry, PCP, nephrology. Concern for myself as well as other providers is compliance. [] Patient Problems: Active and Suspected Problems Respiratory acidosis (Acute) Hypercarbia (Acute) Polycythemia secondary to hypoxia (Acute) Acute respiratory failure with hypoxia and hypercapnia (Acute) COPD (chronic obstructive pulmonary disease) (Suspected) Objective: patient declined exam. - Physical Exam Vitals/I&O's: Vital Signs Temp Pulse Resp BP Pulse Ox 36.5 C L 69 18 130/63 H 86 08/30/20 09:17 08/30/20 09:17 08/30/20 09:17 08/30/20 09:17 08/30/20 10:45 Oxygen Flow Rate (L/min) [ 2 AMBULATING with Oxygen #1] Oxygen Flow Rate (L/min) [At 2 REST with Oxygen] Oxygen Flow Rate (L/min) 2 Oxygen Delivery Method Nasal Cannula Weight: 125.781 kg Body Mass Index (BMI) 34.6 Intake and Output for Last 24 Hours 08/28/20 08/29/20 08/30/20 23:59 23:59 23:59 Intake Total 305.00 / 1105.00 2825 / 3705 2625 / 2625 Output Total 425 / 2625 4050 / 5905 2680 / 2680 Balance -120.00 / -1520.00 -1225 / -2200 -55 / -55 General: Alert, - - up eating breakfast in chair Microbiology Past 72 Hours 08/28/20 10:35 Blood Culture (Wb) - Anticubital Right Blood Culture - Preliminary No growth in 48 hours. 08/28/20 18:25 Urine, Clean Catch Legionella Antigen - Final 08/28/20 18:25 Urine, Clean Catch Streptococcus pneumoniae Antigen (M - Final 08/28/20 10:15 Mucosa - Nose SARS-CoV-2 Antigen (Rapid) - Final Laboratory Results 08/29/20 16:52: POC Glucose 320 H 08/29/20 21:46: POC Glucose > 500 H* 08/30/20 05:24: WBC 9.5, RBC 6.78 H, Hgb 18.7 H*, Hct 63.5 H, MCV 93.7, MCH 27.6, MCHC 29.4 L, RDW Std Deviation 52.6 H, RDW Coeff of Darrell 17.0 H, Plt Count 135 L, MPV 11.2, Immature Gran % (Auto) 0.400, Neut % (Auto) 88.9 H, Lymph % (Auto) 8.9 L, Blanco % (Auto) 1.7, Eos % (Auto) 0.0, Baso % (Auto) 0.1, Absolute Neuts (auto) 8.4 H, Absolute Lymphs (auto) 0.84, Nucleated RBC % 0, Differential Comment SCANNED, Diff Path Review September foll 08/30/20 05:24: Sodium 127 L, Potassium 5.2 H, Chloride 93 L, Carbon Dioxide 31.0, Anion Gap 3 L, BUN 44 H, Creatinine 2.67 H, Estim Creat Clear Calc 32.53, Est GFR (MDRD) Af Amer 31 L, Est GFR (MDRD) Non-Af 26 L, BUN/Creatinine Ratio 16.5, Glucose 480 H*, Calcium 8.5, Total Bilirubin 0.50, AST 12 L, ALT 23, Alkaline Phosphatase 138 H, Total Protein 6.8, Albumin 2.4 L, Globulin 4.4 H, Albumin/Globulin Ratio 0.5 L 08/30/20 06:30: Hemoglobin A1c 8.7 H 08/30/20 06:36: POC Glucose 456 H* 08/30/20 11:53: POC Glucose > 500 H* Current Medications Acetaminophen (Acetaminophen 325 Mg Suppository) 650 mg RC Q4H PRN PRN PRN Reason: Pain Score 1-10/Temp > 100.7 F Acetaminophen (Acetaminophen 325 Mg Tablet) 650 mg PO Q6H PRN PRN PRN Reason: Pain Score 1-10/Temp > 100.7 F Last Admin: 08/29/20 01:28 Dose: 650 mg Documented by: Albuterol Sulfate (Albuterol 2.5 Mg/3 Ml Vial.Neb.) 2.5 mg INHALATION Q2H PRN PRN PRN Reason: SOB/Wheezing Albuterol/Ipratropium (Ipratropium/Albuterol Sulfate 3 Ml Ampul.Neb) 3 ml INHALATION Q6HWA.RT BRENDA Last Admin: 08/30/20 07:39 Dose: 3 ml Documented by: Ascorbic Acid (Ascorbic Acid 500 Mg Tablet) 1,000 mg PO TIDCM [facility] Last Admin: 08/30/20 11:54 Dose: 1,000 mg Documented by: Aspirin (Aspirin 81 Mg Tab.Chew) 81 mg PO DAILY@0800 [facility] Last Admin: 08/30/20 09:18 Dose: 81 mg Documented by: Atorvastatin Calcium (Atorvastatin Calcium 80 Mg Tablet) 80 mg PO QHS [facility] Last Admin: 08/29/20 21:50 Dose: 80 mg Documented by: Carvedilol (Carvedilol 12.5 Mg Tablet) 12.5 mg PO BID [facility] Last Admin: 08/30/20 09:18 Dose: 12.5 mg Documented by: Cholecalciferol (Cholecalciferol (Vit D3) 25 Mcg Tablet (1,000 Units)) 125 mcg PO DAILY [facility] Last Admin: 08/30/20 09:18 Dose: 125 mcg Documented by: Dextrose (Dextrose 50%-Water 25 Gm/50 Ml Disp.Syrin) 0 gm IV X1 PRN; Protocol PRN Reason: Hypoglycemia Enoxaparin Sodium (Enoxaparin 40 Mg/0.4 Ml Syringe) 40 mg SC DAILY [facility] Last Admin: 08/30/20 09:28 Dose: 40 mg Documented by: Furosemide (Furosemide 40 Mg Tablet) 40 mg PO BID@1000,1800 BRENDA Glucagon (Glucagon 1 Mg/Ml Syringe) 1 mg IM .X1 PRN PRN Reason: Hypoglycemia Guaifenesin (Guaifenesin 1,200 Mg Tablet) 1,200 mg PO BID [facility] Last Admin: 08/30/20 09:18 Dose: 1,200 mg Documented by: Ceftriaxone Sodium (Rocephin) 1 gm in 50 mls @ 100 mls/hr IV Q24 [facility] Last Infusion: 08/30/20 10:02 Dose: Infused Documented by: Azithromycin 500 mg/ Dextrose 255 mls @ 250 mls/hr IV Q24 [facility] Last Infusion: 08/30/20 11:18 Dose: Infused Documented by: Insulin Glargine (Insulin Glargine 100 Units/Ml Pen) 35 units SC BREAKFAST [facility] Insulin Glargine (Insulin Glargine 100 Units/Ml Pen) 40 units SC DAILY@2200 BRENDA Insulin Human Lispro (Insulin Lispro 100 Unit/Ml Insuln.Pen) 0 unit SC ACHS & 3AM [facility]; Protocol Last Admin: 08/30/20 12:02 Dose: 10 u Documented by: Magnesium Chloride (Magnesium Chloride 64 Mg Delay Rel.Tablet) 128 mg PO DAILY [facility] Last Admin: 08/30/20 09:18 Dose: 128 mg Documented by: Methylprednisolone (Methylprednisolone 40 Mg/Ml Vial) 40 mg IV Q8 [facility] Last Admin: 08/30/20 06:34 Dose: 40 mg Documented by: Ondansetron HCl (Ondansetron 4 Mg/2 Ml Vial) 4 mg IV Q8H PRN PRN PRN Reason: NAUSEA/VOMITING Quetiapine Fumarate (Quetiapine 25 Mg Tablet) 25 mg PO QHS [facility] Last Admin: 08/29/20 21:49 Dose: 25 mg Documented by: Sodium Chloride (0.9% Saline Lock 10 Ml Syringe) 10 - 40 ml IV UD PRN PRN Reason: SALINE FLUSH Last Admin: 08/30/20 09:17 Dose: 10 ml Documented by: Discharge Diet: 1800 Calorie Control Diet Discharge Activity: Return to Normal Activity Weight Bearing Status: Toe touch weight bearing - left lower extremity. Keep extremity elevated above heart level: Left Leg - surgical shoe. Call your doctor if your incision/area has: Continuous Slow Oozing, Sudden Increased Bleeding, Increased Pain/ Swelling Call your doctor if you observe: Shortness of breath Home Medications: Medications to take at Discharge Ascorbic Acid [Vitamin C] 1,000 mg PO TID 07/11/20 Aspirin [Aspirin, Baby] 81 mg PO DAILY@0800 07/11/20 Atorvastatin Calcium [Lipitor] 80 mg PO QHS 07/11/20 Cholecalciferol (Vitamin D3) [Vitamin D3] 5,000 unit PO DAILY 07/11/20 Glipizide [Glipizide ER] 10 mg PO DAILY 07/11/20 Insulin Glargine,Hum.rec.anlog [Lantus Solostar] 40 unit SQ DAILY 07/11/20 Insulin Glargine,Hum.rec.anlog [Lantus] 35 unit SQ BREAKFAST 07/11/20 Insulin Lispro [Humalog KwikPen] See Protocol SQ DAILY 07/11/20 Magnesium Oxide [Magnesium] 500 mg PO DAILY 07/11/20 Oxycodone HCl/Acetaminophen [Percocet 10-325 mg Tablet] 1 tab PO TID 07/11/20 Carvedilol [Coreg] 12.5 mg PO DAILY 08/17/20 Albuterol Inhaler [Ventolin Hfa] 2 puff INHALATION Q4H PRN PRN #1 inhaler 08/30/20 Furosemide [Lasix] 40 mg PO BID@1000,1800 #60 tablet 08/30/20 Prednisone 4 tablet PO DAILY #20 tablet 08/30/20 Quetiapine Fumarate [Seroquel] 25 mg PO QHS #30 tablet 08/30/20 Following Prescriptions Were Given to Patient: Furosemide [Lasix] 40 mg PO BID@1000,1800 #60 tablet Transmission Status: Received by [facility] Prednisone 4 tablet PO DAILY #20 tablet Transmission Status: Received by [facility] Quetiapine Fumarate [Seroquel] 25 mg PO QHS #30 tablet Transmission Status: Received by [facility] Albuterol Inhaler [Ventolin Hfa] 2 puff INHALATION Q4H PRN PRN #1 inhaler PRN Reason: Shortness Of Breath Transmission Status: Received by [facility] Primary Care Physician: Khushbu Doctor,Out of [NON-STAFF] - Please follow up with your Primary Care Physician in: [place] (or new PCP) in 1-2 weeks Please Follow Up With: Chelsea Nair DPM - podiatry When: Friday Please Follow Up With: Paris Carvajal NP, [facility] - pulmonology When: 2 weeks Please Follow Up With: psychiatry When: 1-2 weeks Patient Instructions: What Is Heart Failure?, Heart Failure: Warning Signs of a Flare-Up, Heart Failure: Tracking Your Weight, Heart Failure: Making Changes to Your Diet, Heart Failure: Medications to Help Your Heart, Heart Failure Disposition: Home with Home Health Minutes spent on discharge:: 40 Patient Condition:: Stable Medical Necessity - Tobacco Use Smoking Status: Current every day smoker Tobacco Use: Cigarettes Meaningful Use Info Meaningful Use Diagnoses (Choose all that apply): CHF - CHF KASI/ARB ordered at discharge?: No Reason KASI/ARB not ordered?: Worsening renal disease Documented LVEF (%): 60 Inpatient E&M: 95961 Disch Hosp
[2020-08-30 13:47] LABS: Pathologist Review Reviewed
[2020-08-30 13:47] LABS: Pathologist Review Reviewed
--- NOTE | 2020-08-31 15:22 | CASEMGMT ---
D/C summary faxed to [facility]. Ciro LEIGH CM
== END 2020-08-30 18:12 | disposition home health service (06) | DRG 166 ==
LOC: ED 12:28 → PCU 14:32
PROVIDERS: Podiatrist Foot & Ankle Surgery; Emergency Provider Emergency Medicine
DX: J18.9 Pneumonia, unspecified organism (principal); J96.01 Acute respiratory failure with hypoxia; I50.31 Acute diastolic (congestive) heart failure; G93.41 Metabolic encephalopathy; J96.02 Acute respiratory failure with hypercapnia; E87.2 Acidosis; I13.0 Hypertensive heart and chronic kidney disease with heart failure and stage 1 through stage 4 chronic kidney disease, or unspecified chronic kidney disease; L97.422 Non-pressure chronic ulcer of left heel and midfoot with fat layer exposed; J44.0 Chronic obstructive pulmonary disease with (acute) lower respiratory infection; I24.8 Other forms of acute ischemic heart disease; E11.51 Type 2 diabetes mellitus with diabetic peripheral angiopathy without gangrene; E11.42 Type 2 diabetes mellitus with diabetic polyneuropathy; E78.00 Pure hypercholesterolemia, unspecified; N18.32 Chronic kidney disease, stage 3b; I25.10 Atherosclerotic heart disease of native coronary artery without angina pectoris; L08.9 Local infection of the skin and subcutaneous tissue, unspecified; E11.22 Type 2 diabetes mellitus with diabetic chronic kidney disease; E11.621 Type 2 diabetes mellitus with foot ulcer; F17.210 Nicotine dependence, cigarettes, uncomplicated; E66.9 Obesity, unspecified; B35.1 Tinea unguium; G47.33 Obstructive sleep apnea (adult) (pediatric); Z79.82 Long term (current) use of aspirin; Z79.4 Long term (current) use of insulin; Z79.899 Other long term (current) drug therapy; Z68.36 Body mass index [BMI] 36.0-36.9, adult; Z66 Do not resuscitate; D75.1 Secondary polycythemia; I27.81 Cor pulmonale (chronic)
CPT/HCPCS: 36415; 36600; 71045; 80048; 80053; 82803; 82962; 83036; 83880; 84484; 85025; 85652; 87040; 87426; 87449; 92610; 93005; 93306; 94002; 94003; 94640; 97110; 97162; 97166; 99285; 99406; J7050; Q9957; A4216; C8929; J1940

== ENCOUNTER 2020-09-12 09:45 | Outpatient (RCR) | payer MEDICARE, BC, SELFPAY ==
[2020-08-17 00:45] VITALS: BP 142/65; PULSE 82; RESP 20; TEMP 36.4
[2020-08-17 17:12] VITALS: TEMP 36.4; BMI 33.7
--- NOTE | 2020-08-18 09:15 | PN.PCM_ITS ---
(1) Non-pressure chronic ulcer of left heel and midfoot with fat layer exposed Status: Chronic Code(s): L97.422 - Non-pressure chronic ulcer of left heel and midfoot with fat layer exposed (2) Type 2 diabetes mellitus with diabetic polyneuropathy Status: Chronic Code(s): E11.42 - Type 2 diabetes mellitus with diabetic polyneuropathy Type of Wound Date of Service: 08/17/20 Chief Complaint: left heel ulcer. swelling. calluses. Toenail fungus History of Wound: Patient presents for wound to left plantar foot. He is unsure how long it has been there as he can't see or reach his feet. He attributes this largely to his obesity. He relates that his daughter looked at his feet and saw the wound. He relates that his children live over an hour away and he lives alone. He relates some bloody drainage has been noted. He relates his daughter put a gauze over it secured with tape. Patient also complains of swelling to his legs, especially his left. He relates he has smoked since he was 10 years old. He is also diabetic with neuropathy and relates his last hemoglobin A1c was 9.6. He also has hypertension. Patient relates bumping his right foot while ambulating and noticed some blood to his toe a couple days ago. Progress of Wound: Courtesy visit for Dr. Nair, patient had complaints of TCC cutting into the back of his leg, so TCC was removed and a new TCC was applied. - Physical Exam Vital Signs Temp Pulse Resp BP 97.6 F L 82 20 H 142/65 H 08/17/20 17:12 08/17/20 00:45 08/17/20 00:45 08/17/20 00:45 Wound Measurements and Assessment WC - Nurse 2 - General Ulcer CM Notes Start: 08/17/20 17:12 Freq: Status: Active Protocol: Activity Type Activity Date Activity User E-Sign Co-Sign Detail Recorded Client Recorded Date Recorded By Document 08/17/20 17:13 MW [id number] 08/17/20 17:14 MW 08/17/20 17:13 Wound Center Nurse 2 [Procedure/Treatment] #1 left heel CLUSTER -Time 17:13 -Correct Patient Yes -Correct Side, Site, Position Yes -Correct Procedure Yes -Procedure Performed No -Ulcer Cleansing SOAP AND WATER -Foul Odor after Cleansing No -Type of Offloading Total Contact Cast (TCC) - Left ($) -Treatment Response Procedure Tolerated Well [See Physician Procedure note for Specifics] Pain Scale: 0-10 Numeric [Pain] -Is Patient Pain Free? Yes Debridement Note Post-Debridement Measurements/Treatment WC - Nurse 2 - General Ulcer CM Notes Start: 08/17/20 17:12 Freq: Status: Active Protocol: Activity Type Activity Date Activity User E-Sign Co-Sign Detail Recorded Client Recorded Date Recorded By Document 08/17/20 17:13 MW [id number] 08/17/20 17:14 MW 08/17/20 17:13 Wound Center Nurse 2 #1 left heel CLUSTER -Time 17:13 -Correct Patient Yes -Correct Side, Site, Position Yes -Correct Procedure Yes -Procedure Performed No -Ulcer Cleansing SOAP AND WATER -Foul Odor after Cleansing No -Type of Offloading Total Contact Cast (TCC) - Left ($) -Treatment Response Procedure Tolerated Well Pain Scale: 0-10 Numeric Is Patient Pain Free? Yes Assessment/Plan Active Problems Type 2 diabetes mellitus with diabetic polyneuropathy (Chronic) Non-pressure chronic ulcer of left heel and midfoot with fat layer exposed (Chronic) Assessment: left heel ulcer. left foot callus with fissuring. New ulceration dorsal fourth right digit. diabetes with neuropathy. obesity. tobacco abuse Plan: Patient seen and examined. New ulceration noted to dorsal right fourth digit. Patient states that he stubbed his toe while walking and noticed some blood. Patient is obese and relates that he can not reach his feet and hasn't been able to take proper care of them. Patient lives alone, and his children are over an hour away. His daughter saw the wound to his heel and got him to come to wound care center. Ulcerations were sharply debrided after verbal consent was obtained from the patient. Was done without incident. Discussed importance of cleaning and maintaining foot both to prevent infection as well as to prevent future wounds. Discussed he is at higher risk for wounds due to his neuropathy, hyperglycemia, swelling, and tabacco abuse. Discussed importance of smoking cessation, blood sugar control, weight management, offloading, proper nutrition, and hygeine to optimize healing potential. Arterial and venous stud ies were reviewed. Showing likely adequate perfusion for healing. Patient relates he has been smoking since he was 10 years old. Discussed impact smoking has on his vessels as well as impact on wound healing. Patient relates that he has had the swelling for a while and can't wear compression socks as he can't reach to put them on. He also denies being on a water pill. Patient physically is unable to reach his feet and thus is unable to do his own dressing changes. He has no family who could do this for him as he lives alone and his kids are over an hour away. Patient was able to obtain daily home health care aides to assist with dressing changes. Patient is noted to have decrease in swelling and overall better hygiene appearance most likely due to this. Patient has benefit from home health manager long term care. A&D ointment applied to bilateral lower extremity. Hydrogel to heel ulcer with Adaptic covering entire heel and fourth digit ulcer. SurePress compression over dressing. To continue this daily per home health care. Discussed offloading ulceration with surgical shoe with offloading insert. We will proceed with palliative care, as well as monitoring. Foot care and footgear has been discussed. Debrided/reduced bulk from 19391 bilateraln toenails, with a nail nipper and both length and thickness by angling nail nippers. This was done without incident. Patient to follow up in 1 week. The problems addressed require a low medical decision making level which includes two or more minor problems, a stable chronic illness, or an acute uncomplicated illness or injury. Multi Select Codes - Addendum Billing code 10642 TCC application
[2020-08-22 09:25] VITALS: BP 160/79; PULSE 79; RESP 20; TEMP 36.9; BMI 33.7
--- NOTE | 2020-08-22 12:28 | PCM.WC.PN ---
(1) Non-pressure chronic ulcer of left heel and midfoot with fat layer exposed Status: Chronic Code(s): L97.422 - Non-pressure chronic ulcer of left heel and midfoot with fat layer exposed (2) Corns and callosities Status: Chronic Code(s): L84 - Corns and callosities (3) Type 2 diabetes mellitus with diabetic polyneuropathy Status: Chronic Code(s): E11.42 - Type 2 diabetes mellitus with diabetic polyneuropathy (4) Tobacco abuse Status: Chronic Code(s): Z72.0 - Tobacco use (5) Obesity Status: Chronic Code(s): E66.9 - Obesity, unspecified Type of Wound Date of Service: 08/22/20 Chief Complaint: left heel ulcer. swelling. calluses. Toenail fungus History of Wound: Patient presents for wound to left plantar foot. He is unsure how long it has been there as he can't see or reach his feet. He attributes this largely to his obesity. He relates that his daughter looked at his feet and saw the wound. He relates that his children live over an hour away and he lives alone. He relates some bloody drainage has been noted. He relates his daughter put a gauze over it secured with tape. Patient also complains of swelling to his legs, especially his left. He relates he has smoked since he was 10 years old. He is also diabetic with neuropathy and relates his last hemoglobin A1c was 9.6. He also has hypertension. Patient relates improvement in left heel pain when in total contact cast Progress of Wound: Wound noted to be stable with less pain to palpation there is some dryness noted to his left leg skin Subjective: Patient seen and examined resting comfortably. Patient denies any new pedal complaints. Patient denies any nausea, fever, chills, chest pain, shortness of breath, cough, streaking, purulence, vomiting. Patient noted to have dropped a box on his head and fallen last week which resulted in a laceration with bleeding to his head. Patient was worked up the emergency room with no significant trauma noted. Patient reports he still has headaches - Physical Exam Vital Signs Temp Pulse Resp BP 98.4 F 79 20 H 160/79 H 08/22/20 09:25 08/22/20 09:25 08/22/20 09:25 08/22/20 09:25 General: Alert, Oriented x3 HEENT: - - Bandage noted to forehead from head laceration. Dressing is clean dry and intact Abdomen: Obese Extremities: No clubbing, No cyanosis, Capillary Refill Less than 3 Seconds, No Calf Tenderness, Diminished Peripheral Pulses, Edema, Tenderness - Left plantar heel some improvement noted Skin: Ulcer/ Wound - Lanter left heel. No malodor, erythema, purulence, probing to bone, streaking, fluctuation, crepitus, or other signs of infection. Skin is atrophic and hairless. Granular base. Surrounding callus tissue noted, - - Tissue noted to right heel as well. Ulcer to right dorsal fourth digit. No malodor, erythema, purulence, probing to bone, streaking, fluctuation, crepitus, or other signs of infection. Skin is atrophic and hairless. Granular base Wound Measurements and Assessment WC - Nurse 1 - General Ulcer Measurement Start: 08/17/20 17:12 Freq: Status: Active Protocol: Activity Type Activity Date Activity User E-Sign Co-Sign Detail Recorded Client Recorded Date Recorded By Document 08/22/20 09:25 DL [id number] 08/22/20 09:40 DL 08/22/20 09:25 Wound Center Nurse 1 [Ulcer Assessment] 3- right 4th toe -Current Size (cm) - Length 0.1 -Current Size (cm) - Width 0.1 -Current Size (cm) - Depth 0.1 -Total Square Cm 0.01 -Photo Taken No -Exudate Amt None Present -Wound Margin Thickened -Granulation Amt None Present (0 %) -Necrosis Amt Small (1-33%) -Necrotic Tissue Type Adherent Slough -Structure Exposed N/A -Texture (Margaret-wound Skin Appearance) Scarring -Moisture (Margaret-wound Skin Appearance No Abnormality ) -Color (Margaret-wound Skin Appearance) Hemosiderin Staining -Temperature (Margaret-wound Skin No Abnormality Appearance) (Pt Warm) -Tenderness on Palpation (Margaret-wound No Skin Appearance) -Ulcer Cleansing Wound Cleanser -Foul Odor after Cleansing No -Anesthetic Used 4% Lidocaine Solution #1 left heel CLUSTER -Current Size (cm) - Length 2 -Current Size (cm) - Width 1.4 -Current Size (cm) - Depth 0.7 -Total Square Cm 2.8 -Exudate Amt Medium -Exudate Type Serosanguineous -Wound Margin Thickened -Granulation Amt None Present (0 %) -Necrosis Amt Large (67-100%) -Necrotic Tissue Type Adherent Slough -Structure Exposed N/A -Texture (Margaret-wound Skin Appearance) Callus,Scarring -Moisture (Margaret-wound Skin Appearance Dry/Scaly ) -Color (Margaret-wound Skin Appearance) Hemosiderin Staining -Temperature (Margaret-wound Skin No Abnormality Appearance) (Pt Warm) -Tenderness on Palpation (Margaret-wound No Skin Appearance) -Ulcer Cleansing Wound Cleanser -Foul Odor after Cleansing No -Anesthetic Used 4% Lidocaine Solution WC - Nurse 2 - General Ulcer CM Notes Start: 08/17/20 17:12 Freq: Status: Active Protocol: Activity Type Activity Date Activity User E-Sign Co-Sign Detail Recorded Client Recorded Date Recorded By Document 08/22/20 10:04 DANIEL [id number] 08/22/20 10:08 DANIEL 08/22/20 10:04 Wound Center Nurse 2 [Procedure/Treatment] 3- right 4th toe -Time 10:07 -Correct Patient Yes -Correct Side, Site, Position Yes -Correct Procedure Yes -Procedure Performed Yes -Type of Procedure Debridement -Clinical Debridement Subcutaneous -Tissue Removed Subcutaneous -Post Debridement (cm) - Length 0.2 -Post Debridement (cm) - Width 0.2 -Post Debridement (cm) - Depth 0.1 -Total Square (Post) (cm) 0.04 -Area of Debridement (cm) - Length 0.2 -Area of Debridement (cm) - Width 0.2 -Total Square (Area) (cm) 0.04 -Tunneling No -Undermining/Tunneling No -Circular Undermining No -Wound/Ulcer Outcome Not Healed -Ulcer Cleansing Rinsed/ Irrigated with Saline -Foul Odor after Cleansing No -Bioengineered Tissue No -Bleeding Controlled with Pressure -Offloading No -Treatment Response Procedure Tolerated Well -Debridement - Subq, 1st 20sq cm No #1 left heel CLUSTER -Time 10:06 -Correct Patient Yes -Correct Side, Site, Position Yes -Correct Procedure Yes -Procedure Performed Yes -Type of Procedure Debridement -Clinical Debridement Subcutaneous -Tissue Removed Subcutaneous -Post Debridement (cm) - Length 1.8 -Post Debridement (cm) - Width 1.5 -Post Debridement (cm) - Depth 0.3 -Total Square (Post) (cm) 2.70 -Area of Debridement (cm) - Length 1.8 -Area of Debridement (cm) - Width 1.5 -Total Square (Area) (cm) 2.70 -Tunneling No -Undermining/Tunneling No -Circular Undermining No -Wound/Ulcer Outcome Not Healed -Ulcer Cleansing Rinsed/ Irrigated with Saline -Foul Odor after Cleansing No -Bioengineered Tissue No -Bleeding Controlled with Pressure -Offloading Yes -Type of Offloading Total Contact Cast (TCC) - Left ($) -Treatment Response Procedure Tolerated Well -Debridement - Subq, 1st 20sq cm Yes [See Physician Procedure note for Specifics] Pain Scale: 0-10 Numeric [Pain] -Is Patient Pain Free? Yes - Nurse 3 - General Ulcer D/C NN Start: 08/17/20 17:12 Freq: Status: Active Protocol: Activity Type Activity Date Activity User E-Sign Co-Sign Detail Recorded Client Recorded Date Recorded By Document 08/22/20 10:43 [facility] [id number] 08/22/20 10:44 [facility] 08/22/20 10:43 Wound Care Nurse 3 [Wound Dressing] 3- right 4th toe -Ulcer Cleansing Rinsed/ Irrigated with Saline -Foul Odor after Cleansing No -Primary Dressing Applied NonAdherent Contact Layer, Other -Other Dressing hydrogel -Primary Dressing Covered/Secured Dry Gauze, with Secured with Tape #1 left heel CLUSTER -Ulcer Cleansing Rinsed/ Irrigated with Saline -Foul Odor after Cleansing No -Primary Dressing Applied Aquacel AG 4x4 -Primary Dressing Covered/Secured Other with -Other Covering tcc undercast -Aquacel AG 4x4 1 [Compression Applied] Right -Compression Wrap Surepress ($) [Post Procedure Tolerated] -Treatment Response Procedure Tolerated Well Pain Scale: 0-10 Numeric [Pain] -Is Patient Pain Free? Yes - Visit Discharge [Visit Discharge Information] -Discharge Condition Stable -Ambulatory Status Ambulatory -Transportation Private Auto [Facility Notification] -Facility Type Home Health Musculoskeletal: Tenderness - Left plantar heel Neurological: - - Decrease in epicritic sensation Psych/Mental Status: Normal Affect, Appropriate Debridement Note Post-Debridement Measurements/Treatment JANESSA - Nurse 2 - General Ulcer CM Notes Start: 08/17/20 17:12 Freq: Status: Active Protocol: Activity Type Activity Date Activity User E-Sign Co-Sign Detail Recorded Client Recorded Date Recorded By Document 08/17/20 17:13 MW [id number] 08/17/20 17:14 MW Document 08/22/20 10:04 JF [id number] 08/22/20 10:08 JF 08/17/20 08/22/20 17:13 10:04 Wound Center Nurse 2 3- right 4th toe -Time 10:07 -Correct Patient Yes -Correct Side, Site, Position Yes -Correct Procedure Yes -Procedure Performed Yes -Type of Procedure Debridement -Clinical Debridement Subcutaneous -Tissue Removed Subcutaneous -Post Debridement (cm) - Length 0.2 -Post Debridement (cm) - Width 0.2 -Post Debridement (cm) - Depth 0.1 -Total Square (Post) (cm) 0.04 -Area of Debridement (cm) - Length 0.2 -Area of Debridement (cm) - Width 0.2 -Total Square (Area) (cm) 0.04 -Tunneling No -Undermining/Tunneling No -Circular Undermining No -Wound/Ulcer Outcome Not Healed -Ulcer Cleansing Rinsed/ Irrigated with Saline -Foul Odor after Cleansing No -Bioengineered Tissue No -Bleeding Controlled with Pressure -Offloading No -Treatment Response Procedure Tolerated Well -Debridement - Subq, 1st 20sq cm No #1 left heel CLUSTER -Time 17:13 10:06 -Correct Patient Yes Yes -Correct Side, Site, Position Yes Yes -Correct Procedure Yes Yes -Procedure Performed No Yes -Type of Procedure Debridement -Clinical Debridement Subcutaneous -Tissue Removed Subcutaneous -Post Debridement (cm) - Length 1.8 -Post Debridement (cm) - Width 1.5 -Post Debridement (cm) - Depth 0.3 -Total Square (Post) (cm) 2.70 -Area of Debridement (cm) - Length 1.8 -Area of Debridement (cm) - Width 1.5 -Total Square (Area) (cm) 2.70 -Tunneling No -Undermining/Tunneling No -Circular Undermining No -Wound/Ulcer Outcome Not Healed -Ulcer Cleansing SOAP AND WATER Rinsed/ Irrigated with Saline -Foul Odor after Cleansing No No -Bioengineered Tissue No -Bleeding Controlled with Pressure -Offloading Yes -Type of Offloading Total Contact Total Contact Cast (TCC) - Cast (TCC) - Left ($) Left ($) -Treatment Response Procedure Procedure Tolerated Well Tolerated Well -Debridement - Subq, 1st 20sq cm Yes Pain Scale: 0-10 Numeric Is Patient Pain Free? Yes Yes - Nurse 3 - General Ulcer D/C NN Start: 08/17/20 17:12 Freq: Status: Active Protocol: Activity Type Activity Date Activity User E-Sign Co-Sign Detail Recorded Client Recorded Date Recorded By Document 08/22/20 10:43 [facility] [id number] 08/22/20 10:44 [facility] 08/22/20 10:43 Wound Care Nurse 3 3- right 4th toe -Ulcer Cleansing Rinsed/ Irrigated with Saline -Foul Odor after Cleansing No -Primary Dressing Applied NonAdherent Contact Layer, Other -Other Dressing hydrogel -Primary Dressing Covered/Secured with Dry Gauze, Secured with Tape #1 left heel CLUSTER -Ulcer Cleansing Rinsed/ Irrigated with Saline -Foul Odor after Cleansing No -Primary Dressing Applied Aquacel AG 4x4 -Primary Dressing Covered/Secured with Other -Other Covering tcc undercast -Aquacel AG 4x4 1 Right -Compression Wrap Surepress ($) Treatment Response Procedure Tolerated Well Pain Scale: 0-10 Numeric Is Patient Pain Free? Yes WC - Visit Discharge Discharge Condition Stable Ambulatory Status Ambulatory Transportation Private [facility] Facility Type Home Health Wound debrided: Dorsal fourth toe Laterality: Right Wound Grade/Stage: Acevedo 1 Type of Debridement: Excisional debridement Anesthesia Used: 4% Lidocaine Solution Depth: in the subcutaneous layer Percentage of wound debrided: 100 Instrument Used: 3mm curette Tissue Removed: Tissue removed includes fibrous, devitalized, biofilm, and slough tissue Severity: Fat Layer Exposed Amount of bleeding with debridement: Mild Bleeding Controlled with: Pressure Patient tolerated procedure well - Additional Wound Wound debrided: Plantar left heel Laterality: Left Wound Grade/Stage: Acevedo 1 Type of Debridement: Excisional debridement Anesthesia Used: 4% Lidocaine Solution Depth: in the subcutaneous layer Percentage of wound debrided: 100 Instrument Used: 3mm curette Tissue Removed: Tissue removed includes fibrous, devitalized, biofilm, and slough tissue Severity: Fat Layer Exposed Amount of bleeding with debridement: Moderate Bleeding Controlled with: Pressure Patient tolerated procedure: Patient tolerated procedure well Assessment/Plan Active Problems Type 2 diabetes mellitus with diabetic polyneuropathy (Chronic) Non-pressure chronic ulcer of left heel and midfoot with fat layer exposed (Chronic) Assessment: left heel ulcer. Left heel pain. left foot callus with fissuring. ulceration dorsal fourth right digit. diabetes with neuropathy. obesity. tobacco abuse Plan: Patient seen and examined. Patient noted to have fallen dropped a box on his head while carrying multiple boxes causing a head laceration. Patient relates he went to the emergency room with no other significant findings found. Patient has had lack of bandage. Patient reports some headache still. He does not attribute the fall to being in the total contact cast. Patient is obese and relates that he can not reach his feet and hasn't been able to take proper care of them. Patient lives alone, and his children are over an hour away. His daughter saw the wound to his heel and got him to come to wound care center. Ulcerations were sharply debrided after verbal consent was obtained from the patient. Was done without incident. Continued debridement of surrounding callus tissue provided. Discussed importance of cleaning and maintaining foot both to prevent infection as well as to prevent future wounds. Discussed he is at higher risk for wounds due to his neuropathy, hyperglycemia, swelling, and tabacco abuse. Discussed importance of smoking cessation, blood sugar control, weight management, offloading, proper nutrition, and hygeine to optimize healing potential. Arterial and venous studies were reviewed. Showing likely adequate perfusion for healing. Patient relates he has been smoking since he was 10 years old. Discussed impact smoking has on his vessels as well as impact on wound healing. Patient relates that he has had the swelling for a while and can't wear compression socks as he can't reach to put them on. He also denies being on a water pill. Patient physically is unable to reach his feet and thus is unable to do his own dressing changes. He has no family who could do this for him as he lives alone and his kids are over an hour away. Patient was able to obtain daily home health care aides to assist with dressing changes. Patient is noted to have decrease in swelling and overall better hygiene appearance most likely due to this. Patient has benefit from home health rn care transition. A&D ointment applied to bilateral lower extremity. Hydrogel to heel ulcer with Adaptic covering entire heel and fourth digit ulcer. SurePress compression over dressing. There is no the patient has not been receiving SurePress compression via home health care. We will reiterate this and our orders to them. To continue this daily per home health care. Patient has continued pain to left foot upon ambulation. Patient has been unsuccessful in being able to significantly offload the area. Discussed patient to try a total contact cast in order to better offload the area and hopefully control his pain. Patient agreed to proceed with this plan. Patient relates less pain to his left heel upon wearing the total contact cast. He does report that it is heavy and throws off his balance. Patient would like to proceed with the total contact cast again this week. Patient provided verbal consent for a total contact cast left lower extremity. This was applied in a well padded neutral position according standard protocol. The patient tolerated this well. Patient was also advised to keep this clean, dry, and intact until follow-up next week. Patient is to follow-up later this week for a check on total contact cast as it has since first one. Patient to follow up in 1 week
[2020-09-05 09:40] VITALS: BP 110/49; PULSE 64; RESP 22; TEMP 36.4; BMI 33.7
--- NOTE | 2020-09-05 12:24 | PCM.WC.PN ---
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 swelling. calluses. Toenail fungus History of Wound: Patient presents for wound to left plantar foot. He is unsure how long it has been there as he can't see or reach his feet. He attributes this largely to his obesity. He relates that his daughter looked at his feet and saw the wound. He relates that his children live over an hour away and he lives alone. He relates some bloody drainage has been noted. He relates his daughter put a gauze over it secured with tape. Patient also complains of swelling to his legs, especially his left. He relates he has smoked since he was 10 years old. He is also diabetic with neuropathy and relates his last hemoglobin A1c was 9.6. He also has hypertension. Patient relates improvement in left heel pain when in total contact cast. Patient has also had recent admission to the hospital for hypoxemia and heart failure. Patient was noted to be discharged on oxygen therapy. Patient did not present to the clinic today on his oxygen. He relates that he is using 2 L while at home still Progress of Wound: Wound noted to be stable with less pain to palpation Subjective: Patient seen and examined resting comfortably. Patient denies any new pedal complaints. Patient denies any nausea, fever, chills, chest pain, shortness of breath, cough, streaking, purulence, vomiting. - Physical Exam Vital Signs Temp Pulse Resp BP 97.5 F L 64 22 H 110/49 L 09/05/20 09:40 09/05/20 09:40 09/05/20 09:40 09/05/20 09:40 General: Alert, Oriented x3 HEENT: Atraumatic Lungs: Short of Breath Abdomen: Obese Extremities: No clubbing, No cyanosis, Capillary Refill Less than 3 Seconds, No Calf Tenderness, Diminished Peripheral Pulses, Edema Skin: Ulcer/ Wound - Plantar left foot. No malodor, erythema, purulence, probing to bone, streaking, fluctuation, crepitus, or other signs of infection. Skin is atrophic and hairless. Granular base. Surrounding callus and dry skin Wound Measurements and Assessment WC - Nurse 1 - General Ulcer Measurement Start: 08/17/20 17:12 Freq: Status: Active Protocol: Activity Type Activity Date Activity User E-Sign Co-Sign Detail Recorded Client Recorded Date Recorded By Document 09/05/20 09:40 DL [id number] 09/05/20 09:53 DL 09/05/20 09:40 Wound Center Nurse 1 [Ulcer Assessment] 3- right 4th toe -Current Size (cm) - Length 0 -Current Size (cm) - Width 0 -Current Size (cm) - Depth 0 -Total Square Cm 0 -Photo Taken Yes -Exudate Amt None Present -Wound Margin Flat & Intact -Granulation Amt Large (67-100%) -Granulation Quality Pale -Necrosis Amt None Present (0 %) -Structure Exposed N/A -Texture (Margaret-wound Skin Appearance) Scarring -Moisture (Margaret-wound Skin Appearance No Abnormality ) -Color (Margaret-wound Skin Appearance) No Abnormality, Hemosiderin Staining -Temperature (Margaret-wound Skin No Abnormality Appearance) (Pt Warm) -Tenderness on Palpation (Margaret-wound No Skin Appearance) -Ulcer Cleansing Wound Cleanser -Foul Odor after Cleansing No #1 left heel CLUSTER -Current Size (cm) - Length 1.8 -Current Size (cm) - Width 1.4 -Current Size (cm) - Depth 0.7 -Total Square Cm 2.52 -Photo Taken No -Maximum Distance #2 (cm) 0.3 -Circular Undermining Yes -Exudate Amt Small -Exudate Type Serosanguineous -Wound Margin Thickened -Granulation Amt None Present (0 %) -Necrosis Amt Large (67-100%) -Necrotic Tissue Type Adherent Slough -Structure Exposed N/A -Texture (Margaret-wound Skin Appearance) Callus -Moisture (Margaret-wound Skin Appearance Dry/Scaly ) -Color (Margaret-wound Skin Appearance) Hemosiderin Staining -Temperature (Margaret-wound Skin No Abnormality Appearance) (Pt Warm) -Tenderness on Palpation (Margaret-wound No Skin Appearance) -Ulcer Cleansing Wound Cleanser -Foul Odor after Cleansing No -Anesthetic Used 4% Lidocaine Solution [Edema Assessment] -Right Calf (cm) 42 -Right Ankle (cm) 23.5 -Left Calf (cm) 41.5 -Left Ankle (cm) 23.6 WC - Nurse 2 - General Ulcer CM Notes Start: 08/17/20 17:12 Freq: Status: Active Protocol: Activity Type Activity Date Activity User E-Sign Co-Sign Detail Recorded Client Recorded Date Recorded By Document 09/05/20 10:07 ADNIEL [id number] 09/05/20 10:19 DANIEL 09/05/20 10:07 Wound Center Nurse 2 [Procedure/Treatment] 3- right 4th toe -Correct Patient No -Correct Side, Site, Position No -Correct Procedure No -Procedure Performed No -Post Debridement (cm) - Length 0 -Post Debridement (cm) - Width 0 -Post Debridement (cm) - Depth 0 -Total Square (Post) (cm) 0 -Area of Debridement (cm) - Length 0 -Area of Debridement (cm) - Width 0 -Total Square (Area) (cm) 0 -Wound/Ulcer Outcome Healed- Epithelialized #1 left heel CLUSTER -Time 10:16 -Correct Patient Yes -Correct Side, Site, Position Yes -Correct Procedure Yes -Procedure Performed Yes -Type of Procedure Debridement -Clinical Debridement Subcutaneous -Tissue Removed Subcutaneous -Post Debridement (cm) - Length 2 -Post Debridement (cm) - Width 1.5 -Post Debridement (cm) - Depth 0.2 -Total Square (Post) (cm) 3.0 -Area of Debridement (cm) - Length 2 -Area of Debridement (cm) - Width 1.5 -Total Square (Area) (cm) 3.0 -Tunneling No -Undermining/Tunneling No -Circular Undermining No -Wound/Ulcer Outcome Not Healed -Ulcer Cleansing Rinsed/ Irrigated with Saline -Foul Odor after Cleansing No -Bioengineered Tissue Yes -Type of Bioengineered Tissue Epifix -Expiration Date 04/18/25 -Product Lot Number [id number] -Percent Used 100 -Lot number of Saline Used [id number] -Bleeding Controlled with Pressure -Offloading Yes -Type of Offloading Surgical Shoe -Treatment Response Procedure Tolerated Well -Debridement - Subq, 1st 20sq cm No -Apply Skin Sub - 1st 25 sq cm - Feet 1 -Epifix (per sq cm) 4 [See Physician Procedure note for Specifics] Pain Scale: 0-10 Numeric [Pain] -Is Patient Pain Free? Yes - Nurse 3 - General Ulcer D/C NN Start: 08/17/20 17:12 Freq: Status: Active Protocol: Activity Type Activity Date Activity User E-Sign Co-Sign Detail Recorded Client Recorded Date Recorded By Document 09/05/20 10:37 DL [id number] 09/05/20 10:42 DL 09/05/20 10:37 Wound Care Nurse 3 [Wound Dressing] #1 left heel CLUSTER -Ulcer Cleansing Rinsed/ Irrigated with Saline -Foul Odor after Cleansing No -Other Dressing Epifix -Primary Dressing Covered/Secured Dry Gauze & with Roll Gauze, Secured with Tape -Other Covering Nurses hat [Compression Applied] Right -Size of Tubigrip Used Size E -Size E ($) 2 -Stockings Yes Pain Scale: 0-10 Numeric [Pain] -Is Patient Pain Free? Yes - Visit Discharge [Visit Discharge Information] -Discharge Condition Stable -Ambulatory Status Ambulatory, Walker -Transportation Private Auto -Notes: O2 removed. Spo2 at 94 with O2 at 2L. pt instructed to use his O2 at home and make a F/U with his PCP for evaluation. [Facility Notification] -Facility Type Home Health -Orders Sent Yes Musculoskeletal: Tenderness - Ulceration site, - - Bilateral heel callus and dry skin Neurological: - - Decrease in epicritic sensation Psych/Mental Status: Normal Affect, Appropriate Debridement Note Post-Debridement Measurements/Treatment - Nurse 2 - General Ulcer CM Notes Start: 08/17/20 17:12 Freq: Status: Active Protocol: Activity Type Activity Date Activity User E-Sign Co-Sign Detail Recorded Client Recorded Date Recorded By Document 08/17/20 17:13 MW [id number] 08/17/20 17:14 MW Document 08/22/20 10:04 JF [id number] 08/22/20 10:08 JF Document 09/05/20 10:07 [id number] 09/05/20 10:19 JF 08/17/20 08/22/20 09/05/20 17:13 10:04 10:07 Wound Center Nurse 2 3- right 4th toe -Time 10:07 -Correct Patient Yes No -Correct Side, Site, Position Yes No -Correct Procedure Yes No -Procedure Performed Yes No -Type of Procedure Debridement -Clinical Debridement Subcutaneous -Tissue Removed Subcutaneous -Post Debridement (cm) - Length 0.2 0 -Post Debridement (cm) - Width 0.2 0 -Post Debridement (cm) - Depth 0.1 0 -Total Square (Post) (cm) 0.04 0 -Area of Debridement (cm) - Length 0.2 0 -Area of Debridement (cm) - Width 0.2 0 -Total Square (Area) (cm) 0.04 0 -Tunneling No -Undermining/Tunneling No -Circular Undermining No -Wound/Ulcer Outcome Not Healed Healed- Epithelialized -Ulcer Cleansing Rinsed/ Irrigated with Saline -Foul Odor after Cleansing No -Bioengineered Tissue No -Bleeding Controlled with Pressure -Offloading No -Treatment Response Procedure Tolerated Well -Debridement - Subq, 1st 20sq cm No #1 left heel CLUSTER -Time 17:13 10:06 10:16 -Correct Patient Yes Yes Yes -Correct Side, Site, Position Yes Yes Yes -Correct Procedure Yes Yes Yes -Procedure Performed No Yes Yes -Type of Procedure Debridement Debridement -Clinical Debridement Subcutaneous Subcutaneous -Tissue Removed Subcutaneous Subcutaneous -Post Debridement (cm) - Length 1.8 2 -Post Debridement (cm) - Width 1.5 1.5 -Post Debridement (cm) - Depth 0.3 0.2 -Total Square (Post) (cm) 2.70 3.0 -Area of Debridement (cm) - Length 1.8 2 -Area of Debridement (cm) - Width 1.5 1.5 -Total Square (Area) (cm) 2.70 3.0 -Tunneling No No -Undermining/Tunneling No No -Circular Undermining No No -Wound/Ulcer Outcome Not Healed Not Healed -Ulcer Cleansing SOAP AND WATER Rinsed/ Rinsed/ Irrigated with Irrigated with Saline Saline -Foul Odor after Cleansing No No No -Bioengineered Tissue No Yes -Type of Bioengineered Tissue Epifix -Expiration Date 04/18/25 -Product Lot Number [id number] -Percent Used 100 -Lot number of Saline Used [id number] -Bleeding Controlled with Pressure Pressure -Offloading Yes Yes -Type of Offloading Total Contact Total Contact Surgical Shoe Cast (TCC) - Cast (TCC) - Left ($) Left ($) -Treatment Response Procedure Procedure Procedure Tolerated Well Tolerated Well Tolerated Well -Debridement - Subq, 1st 20sq cm Yes No -Apply Skin Sub - 1st 25 sq cm - Feet 1 -Epifix (per sq cm) 4 Pain Scale: 0-10 Numeric Is Patient Pain Free? Yes Yes Yes - Nurse 3 - General Ulcer D/C NN Start: 08/17/20 17:12 Freq: Status: Active Protocol: Activity Type Activity Date Activity User E-Sign Co-Sign Detail Recorded Client Recorded Date Recorded By Document 08/22/20 10:43 [facility] [id number] 08/22/20 10:44 BM Document 09/05/20 10:37 DL [id number] 09/05/20 10:42 DL 08/22/20 09/05/20 10:43 10:37 Wound Care Nurse 3 3- right 4th toe -Ulcer Cleansing Rinsed/ Irrigated with Saline -Foul Odor after Cleansing No -Primary Dressing Applied NonAdherent Contact Layer, Other -Other Dressing hydrogel -Primary Dressing Covered/Secured with Dry Gauze, Secured with Tape #1 left heel CLUSTER -Ulcer Cleansing Rinsed/ Rinsed/ Irrigated with Irrigated with Saline Saline -Foul Odor after Cleansing No No -Primary Dressing Applied Aquacel AG 4x4 -Other Dressing Epifix -Primary Dressing Covered/Secured with Other Dry Gauze & Roll Gauze, Secured with Tape -Other Covering tcc undercast Nurses hat -Aquacel AG 4x4 1 Right -Compression Wrap Surepress ($) -Size of Tubigrip Used Size E -Size E ($) 2 -Stockings Yes Treatment Response Procedure Tolerated Well Pain Scale: 0-10 Numeric Is Patient Pain Free? Yes Yes - Visit Discharge Discharge Condition Stable Stable Ambulatory Status Ambulatory Ambulatory, Walker Transportation Private Auto Private Auto Notes: O2 removed. Spo2 at 94 with O2 at 2L. pt instructed to use his O2 at home and make a F/U with his PCP for evaluation. Facility Type Home Health Home Health Orders Sent Yes Wound debrided: plantar heel Laterality: Left Wound Grade/Stage: Acevedo 1 Type of Debridement: Excisional debridement Anesthesia Used: 4% Lidocaine Solution Depth: in the subcutaneous layer Percentage of wound debrided: 100 Instrument Used: 5mm curette Tissue Removed: Tissue removed includes fibrous, devitalized, biofilm, and slough tissue Severity: Fat Layer Exposed Amount of bleeding with debridement: Mild Bleeding Controlled with: Pressure Patient tolerated procedure well Assessment/Plan Active Problems Corns and callosities (Chronic) Type 2 diabetes mellitus with diabetic polyneuropathy (Chronic) Non-pressure chronic ulcer of left heel and midfoot with fat layer exposed (Chronic) Tobacco abuse (Chronic) Obesity (Chronic) Assessment: left heel ulcer. left foot callus with fissuring. New ulceration dorsal fourth right digit-healed. diabetes with neuropathy. obesity. tobacco abuse. Hypoxemia Plan: Patient seen and examined. Patient wound was noted to be stable. There is no significant increase in callus tissue noted. Patient presents to the wound care center without his oxygen. Patient was noted upon rooming that he was short of breath and his oxygen saturation was 80%. Patient was started on oxygen therapy. It was discussed with the patient the importance to take his oxygen with him even when he leaves home. Patient was discharged from the hospital on 2 L of oxygen. Discussed with the patient who is not advised her him to drive home given his low oxygen saturation when not on oxygen. Discussed that it is important patient go straight home in order to resume oxygen therapy. Patient relates that he drove himself and has no one to with him to drive him home. Discussed that this was not advisable but patient persisted that he would be driving himself home. Patient is obese and relates that he can not reach his feet and hasn't been able to take proper care of them. Patient lives alone, and his children are over an hour away. His daughter saw the wound to his heel and got him to come to wound care center. Ulcerations were sharply debrided after verbal consent was obtained from the patient. Was done without incident. Continued debridement of surrounding callus tissue provided. Discussed importance of cleaning and maintaining foot both to prevent infection as well as to prevent future wounds. Discussed he is at higher risk for wounds due to his neuropathy, hyperglycemia, swelling, and tabacco abuse. Discussed importance of smoking cessation, blood sugar control, weight management, offloading, proper nutrition, and hygeine to optimize healing potential. Arterial and venous studies were reviewed. Showing likely adequate perfusion for healing. Patient relates he has been smoking since he was 10 years old. Discussed impact smoking has on his vessels as well as impact on wound healing. Patient relates that he has had the swelling for a while and can't wear compression socks as he can't reach to put them on. He also denies being on a water pill. Patient physically is unable to reach his feet and thus is unable to do his own dressing changes. He has no family who could do this for him as he lives alone and his kids are over an hour away. Patient was able to obtain daily home health care aides to assist with dressing changes. Patient is noted to have decrease in swelling and overall better hygiene appearance most likely due to this. Patient has benefit from home health foster care therapist. Patient was approved for epi fix graft N. I recommend application of advanced wound healing product to the indicated ulceration. Prior authorization was confirmed. The indications, benefits, anticipated application and healing time management were reviewed in detail. Verbal consent was obtained in the procedure for today. Site was debrided and graft was applied according to standard protocol and was further secured with a nonadherent dressing and Steri-Strips. Discussed with the patient continuing with total contact cast in order to better offload the heel ulcerated site and to keep wound graft well adhered to the wound base. Patient relates that he feels unsteady with the total contact cast would like to go back into surgical shoe with heel offloaded instead. Discussed that this is what we do this visit and we will revisit potentially going back to the total contact cast next week. A&D ointment applied to bilateral lower extremity. SurePress compression to bilateral leg. It is noted that the patient has not been receiving SurePress compression via home health care as he presented today and Kevin wrap compression. We will reiterate this and our orders to them. To continue this daily per home health care. It is noted that the patient has refused entry to home health foster care therapist on multiple visits. All questions answered. Patient to follow up in 1 week. This note was generated with [email or web address] dictation software. It may contain incorrect words, spelling, and punctuation that were not noted in checking the note before signing.
[2020-09-12 09:56] VITALS: BP 132/65; PULSE 78; TEMP 36.7; BMI 33.7
--- NOTE | 2020-09-12 14:54 | PN.PCM_ITS ---
History of Present Illness Date of Service: 09/14/20 Chief Complaint: left heel ulcer swelling calluses History of Wound: Patient presents for wound to left plantar foot. He is unsure how long it has been there as he can't see or reach his feet. He attributes this largely to his obesity. He relates that his daughter looked at his feet and saw the wound. He relates that his children live over an hour away and he lives alone. He relates some bloody drainage has been noted. He relates his daughter put a gauze over it secured with tape. Patient also complains of swelling to his legs, especially his left. He relates he has smoked since he was 10 years old. He is also diabetic with neuropathy and relates his last hemoglobin A1c was 9.6. He also has hypertension. Patient relates improvement in left heel pain when in total contact cast Patient has also had recent admission to the hospital for hypoxemia and heart failure. Patient was noted to be discharged on oxygen therapy. Patient did not present to the clinic today on his oxygen. He relates that he is using 2 L whi le at home still. He relates he has an appointment with his fishing floats assembler later today Subjective Subjective: Patient is resting comfortably and denies any new pedal complains. Patient denies any nausea, fever, vomiting, chills, chest pain, shortness of breath, streaking, or purulence Objective Data Objective Data Vital Signs: Vital Signs Temp Pulse Resp BP 98.0 F 78 22 H 132/65 H 09/12/20 09:56 09/12/20 09:56 09/05/20 09:40 09/12/20 09:56 Body Mass Index (BMI) 33.7 Exam Physical Exam Const alert and no apparent distress General Appearance: cooperative and comfortable HEENT Head and Scalp: atraumatic Resp normal respiratory effort Effort and Inspection: able to speak in complete sentences Cardio Peripheral Pulses: posterior tibial pulses present bilateral diminished and dorsalis pedis pulses present bilateral diminished Extremity normal capillary refill and no calf tenderness General Extremity: edema bilateral lower extremity; Negative for clubbing or cyanosis Peripheral Pulses: Yes posterior tibial pulses present bilateral diminished and dorsalis pedis pulses present bilateral diminished Skin General Skin Exam: dry skin; Negative for ecchymosis, erythema, eschar, pallor or dermatitis Rashes: no rashes Wounds: wounds noted Wound Narrative: ulcers noted to plantar left heel No malodor, erythema, purulence, probing to bone, streaking, fluctuation, crepitus, or other signs of infection. Skin is atrophic and hairless. Granular base. Surrounding diffuse callus noted to plantar heel left worse than right. Pain to palpation of left heel Neuro Gait (Neuro): antalgic Sensory Exam: extremities light-touch: decreased Motor Exam: strength 5/5 throughout Psych Appearance: appropriate Attitude: calm Nursing Assessment and Debridement Post-Debridement Measurements and Additional Note: Post-Debridement Measurements/Treatment - Nurse 1 - General Ulcer Assessment Start: 08/17/20 17:12 Freq: Status: Active Protocol: EVELYN Activity Type Activity Date Activity User E-Sign Co-Sign Detail Recorded Client Recorded Date Recorded By Document 09/12/20 09:56 VASQUEZ [id number] 09/12/20 09:59 VASQUEZ 09/12/20 09:56 WC - Today's Visit Information Type of service Initial Visit Arrival Mode Ambulatory, Walker Patient Identification Verified (Name & Yes ) Height and Weight Body Mass Index (BMI) 33.7 BMI Classification Obese Vital Signs Temperature (97.8 F-99.1 F) 98.0 F Temperature Source Temporal Pulse Rate (60-100) 78 Pulse Location Monitor Blood Pressure (90/60-120/80) 132/65 H Blood Pressure Mean (mm Hg) 87 Source Monitor Position Semi-Fowlers Blood Pressure Location Right Arm History Since Last Visit- (Skip if this is Patient's initial visit) Have you changed medications since your No last visit? Any new allergies or adverse reactions No Had a fall/change in ADL's that may No increase risk of falls Signs or symptoms of abuse and/or No neglect since last visit Have you been in the hospital since your No last visit? Has dressing in place as prescribed Yes Has compression in place as prescribed Yes Has offloadiing in place as prescribed N/A Experienced any changes in pain level or No management Left Footwear Regular Shoe Right Footwear Regular Shoe Pain Scale: 0-10 Numeric Is Patient Pain Free? Yes - Nurse 2 - General Ulcer CM Notes Start: 08/17/20 17:12 Freq: Status: Active Protocol: Activity Type Activity Date Activity User E-Sign Co-Sign Detail Recorded Client Recorded Date Recorded By Document 09/12/20 10:15 DANIEL [id number] 09/12/20 10:31 DANIEL 09/12/20 10:15 Wound Center Nurse 2 #1 left heel CLUSTER -Time 10:15 -Correct Patient Yes -Correct Side, Site, Position Yes -Correct Procedure Yes -Procedure Performed Yes -Type of Procedure Debridement -Clinical Debridement Subcutaneous -Tissue Removed Subcutaneous -Post Debridement (cm) - Length 1.9 -Post Debridement (cm) - Width 1.5 -Post Debridement (cm) - Depth 0.3 -Total Square (Post) (cm) 2.85 -Area of Debridement (cm) - Length 1.9 -Area of Debridement (cm) - Width 1.5 -Total Square (Area) (cm) 2.85 -Tunneling No -Undermining/Tunneling No -Circular Undermining No -Wound/Ulcer Outcome Not Healed -Ulcer Cleansing Rinsed/ Irrigated with Saline -Bioengineered Tissue Yes -Type of Bioengineered Tissue Epifix -Expiration Date 02/16/25 -Product Lot Number [id number] -Percent Used 100 -Lot number of Saline Used [id number] -Bleeding Controlled with Pressure -Offloading Yes -Type of Offloading Surgical Shoe -Treatment Response Procedure Tolerated Well -Debridement - Subq, 1st 20sq cm No -Apply Skin Sub - 1st 25 sq cm - Feet 1 -Epifix (per sq cm) 4 Pain Scale: 0-10 Numeric Is Patient Pain Free? Yes - Nurse 3 - General Ulcer D/C NN Start: 08/17/20 17:12 Freq: Status: Active Protocol: Activity Type Activity Date Activity User E-Sign Co-Sign Detail Recorded Client Recorded Date Recorded By Document 09/12/20 10:46 [facility] [id number] 09/12/20 10:47 [facility] 09/12/20 10:46 Wound Care Nurse 3 #1 left heel CLUSTER -Primary Dressing Applied Other -Other Dressing epifix -Primary Dressing Covered/Secured with Dry Gauze & Roll Gauze, Secured with Tape,Other -Other Covering heel hat Left -Tubular Bandage Single Layer -Size of Tubigrip Used Size D -Size D ($) 1 Right -Compression Wrap Kevin Wrap -Tubular Bandage Single Layer -Size of Tubigrip Used Size D -Size D ($) 1 Treatment Response Procedure Tolerated Well Pain Scale: 0-10 Numeric Is Patient Pain Free? Yes - Visit Discharge Discharge Condition Stable Ambulatory Status Ambulatory, Walker Transportation Private [facility] Facility Type Home Health Assessment and Debridement #1 left heel CLUSTER: Wound Debrided: heel Laterality: Left Type of Debridement: Excisional debridement Anesthesia Used: 4% Lidocaine Solution Depth: in the subcutaneous layer Percentage of Wound Debrided: 100 Instrument Used: 3mm curette and #15 blade Tissue Removed: Tissue removed includes fibrous, devitalized, biofilm, and slough tissue Severity: Fat Layer Exposed Amt of Bleeding w/Debridement: Mild Bleeding Controlled with: Pressure Patient Tolerated Procedure: Patient tolerated procedure well Debridement Free Text: Predebridement measurements were noted to be 1.5 x 1.3x0.5cm Assessment & Plan Assessment/Plan (1) Non-pressure chronic ulcer of left heel and midfoot with fat layer exposed: Status: Chronic Code(s): L97.422 - Non-pressure chronic ulcer of left heel and midfoot with fat layer exposed (2) Type 2 diabetes mellitus with diabetic polyneuropathy: Status: Chronic Code(s): E11.42 - Type 2 diabetes mellitus with diabetic polyneuropathy Qualifiers: Diabetes mellitus intermediate teacher insulin use: with detention use Qualified Code(s): E11.42 - Type 2 diabetes mellitus with diabetic polyneuropathy; Z79.4 - ad terminal makeup operator (current) use of insulin (3) Corns and callosities: Status: Chronic Code(s): L84 - Corns and callosities (4) Tobacco abuse: Status: Chronic Code(s): Z72.0 - Tobacco use (5) Obesity: Status: Chronic Code(s): E66.9 - Obesity, unspecified Qualifiers: Body mass index: BMI 33.0-33.9 Obesity classification: adult class 1 (BMI 30 - 34.9) Obesity type: due to excess calories Serious obesity comorbidity presence: with serious comorbidity Qualified Code(s): E66.09 - Ot her obesity due to excess calories; Z68.33 - Body mass index [BMI] 33.0-33.9, adult (6) Left foot pain: Status: Acute Code(s): M79.672 - Pain in left foot Plan: Assessment: left heel ulcer. left foot callus with fissuring. ulceration dorsal fourth right digit-healed. diabetes with neuropathy. obesity. tobacco abuse. Plan: Patient seen and examined. Patient wound was noted to be stable. There is increase in callus tissue noted. This was sharply debrided with a #15 blade. Small iatrogenic cut was made to periwound area which was stopped with silver nitrate stick. Ulcerations were sharply debrided after verbal consent was obtained from the patient. Was done without incident. Continued debridement of surrounding callus tissue provided. Discussed importance of cleaning and maintaining foot both to prevent infection as well as to prevent future wounds. Discussed he is at higher risk for wounds due to his neuropathy, hyperglycemia, swelling, and tabacco abuse. Discussed importance of smoking cessation, blood sugar control, weight management, offloading, proper nutrition, and hygeine to optimize healing potential. Arterial and venous studies were reviewed. Showing likely adequate perfusion for healing. Patient relates he has been smoking since he was 10 years old. Discussed impact smoking has on his vessels as well as impact on wound healing. Patient relates that he has had the swelling for a while and can't wear compression socks as he can't reach to put them on. He also denies being on a water pill. Patient physically is unable to reach his feet and thus is unable to do his own dressing changes. He has no family who could do this for him as he lives alone and his kids are over an hour away. Patient was able to obtain daily home health care aides to assist with dressing changes. Patient is noted to have decrease in swelling and overall better hygiene appearance most likely due to this. Patient has benefit from home health healthcare administrative assistant. Patient was approved for epi fix graft. I recommend application of advanced wound healing product to the indicated ulceration. Prior authorization was confirmed. The indications, benefits, anticipated application and healing time management were reviewed in detail. Verbal consent was obtained in the procedure for today. Site was debrided and graft was applied according to standard protocol and was further secured with a nonadherent dressing and Steri- Strips. Discussed with the patient continuing with total contact cast in order to better offload the heel ulcerated site and to keep wound graft well adhered to the wound base. Patient relates that he would prefer to stick with the offloaded surgical shoe as he feels unsteady and a total contact cast and is afraid of falling. A&D ointment applied to bilateral lower extremity. Graft covered with DSD. SurePress compression to bilateral leg. To continue this per home health care. It is noted that the patient has refused entry to home health healthcare administrative assistant on multiple visits. All questions answered. Patient to follow up in 1 week. This note was generated with Language Cloudation software. It may contain incorrect words, spelling, and punctuation that were not noted in checking the note before signing.
== END 2020-09-15 23:59 ==
LOC: WC 09:45
PROVIDERS: Referring Provider Podiatrist Foot & Ankle Surgery; Visit Provider Podiatrist Foot & Ankle Surgery
DX: E11.621 Type 2 diabetes mellitus with foot ulcer (principal); E11.42 Type 2 diabetes mellitus with diabetic polyneuropathy; L97.422 Non-pressure chronic ulcer of left heel and midfoot with fat layer exposed; M79.89 Other specified soft tissue disorders; L84 Corns and callosities; F17.200 Nicotine dependence, unspecified, uncomplicated; E66.9 Obesity, unspecified; I10 Essential (primary) hypertension; L97.512 Non-pressure chronic ulcer of other part of right foot with fat layer exposed; R09.02 Hypoxemia; I50.9 Heart failure, unspecified; I11.0 Hypertensive heart disease with heart failure; S09.90XA Unspecified injury of head, initial encounter; S00.33XA Contusion of nose, initial encounter; Z79.899 Other long term (current) drug therapy; Z79.4 Long term (current) use of insulin; Y29.XXXA Contact with blunt object, undetermined intent, initial encounter; E78.00 Pure hypercholesterolemia, unspecified
CPT/HCPCS: 11042; 15275; 29445; Q4186

== ENCOUNTER → 2020-10-09 20:00 | Outpatient (CLI) | payer MEDICARE, BC, SELFPAY ==
[2020-09-12 14:19] VITALS: BMI 33.7
== END ==
PROVIDERS: Referring Provider Nurse Practitioner Acute Care; Visit Provider Nurse Practitioner Acute Care
DX: G47.33 Obstructive sleep apnea (adult) (pediatric) (principal)
CPT/HCPCS: 95810

== ENCOUNTER 2020-10-10 09:45 | Outpatient (RCR) | payer MEDICARE, BC, SELFPAY ==
[2020-09-12 14:19] VITALS: BMI 33.7
[2020-09-16 00:42] VITALS: BP 132/65; PULSE 78; RESP 22; TEMP 36.7
[2020-09-19 09:55] VITALS: BP 132/65; PULSE 70; RESP 22; TEMP 36.3; BMI 33.7
--- NOTE | 2020-09-19 11:55 | PN.PCM_ITS ---
History of Present Illness Date of Service: 09/19/20 Chief Complaint: left heel ulcer swelling calluses History of Wound: Patient presents for wound to left plantar foot. He is unsure how long it has been there as he can't see or reach his feet. He attributes this largely to his obesity. He relates that his daughter looked at his feet and saw the wound. He relates that his children live over an hour away and he lives alone. He relates some bloody drainage has been noted. He relates his daughter put a gauze over it secured with tape. Patient also complains of swelling to his legs, especially his left. He relates he has smoked since he was 10 years old. He is also diabetic with neuropathy and relates his last hemoglobin A1c was 9.6. He also has hypertension. Patient relates improvement in left heel pain when in total contact cast but that he feels unsteady and has fallen and does not wish to continue this Patient has also had recent admission to the hospital for hypoxemia and heart failure. Patient was noted to be discharged on oxygen therapy. Patient did not present to the clinic today on his oxygen. He relates that he is using 2 L while at home still. He relates no significant change after appointment with clock repair technician Progress of Wound: Wound is noted to be stable Subjective Subjective: Patient seen and examined resting comfortably. Patient relates new right foot pain. Patient denies any nausea, fever, chills, chest pain, shortness of breath, cough, streaking, purulence, vomiting. Objective Data Objective Data Vital Signs: Vital Signs Temp Pulse Resp BP 97.3 F L 70 22 H 132/65 H 09/19/20 09:55 09/19/20 09:55 09/19/20 09:55 09/19/20 09:55 Body Mass Index (BMI) 33.7 Assessment & Plan Assessment/Plan (1) Non-pressure chronic ulcer of left heel and midfoot with fat layer exposed: Status: Chronic Code(s): L97.422 - Non-pressure chronic ulcer of left heel and midfoot with fat layer exposed (2) Left foot pain: Status: Acute Code(s): M79.672 - Pain in left foot (3) Corns and callosities: Status: Chronic Code(s): L84 - Corns and callosities (4) Type 2 diabetes mellitus with diabetic polyneuropathy: Status: Chronic Code(s): E11.42 - Type 2 diabetes mellitus with diabetic polyneuropathy Qualifiers: Diabetes mellitus pesticide chemist insulin use: with fdc use Qualified Code(s): E11.42 - Type 2 diabetes mellitus with diabetic polyneuropathy; Z79.4 - tool radial drill press set up operator (current) use of insulin (5) Tobacco abuse: Status: Chronic Code(s): Z72.0 - Tobacco use (6) Obesity: Status: Chronic Code(s): E66.9 - Obesity, unspecified Qualifiers: Body mass index: BMI 33.0-33.9 Obesity classification: adult class 1 (BMI 30 - 34.9) Obesity type: due to excess calories Serious obesity comorbidity presence: with serious comorbidity Qualified Code(s): E66.09 - Other obesity due to excess calories; Z68.33 - Body mass index [BMI] 33.0-33.9, adult (7) Pain in right foot: Status: Acute Code(s): M79.671 - Pain in right foot Plan: Patient seen and examined. Patient wound was noted to be stable. Ulcerations were sharply debrided after verbal consent was obtained from the patient. Was done without incident. Continued debridement of surrounding callus tissue provided. Discussed importance of cleaning and maintaining foot both to prevent infection as well as to prevent future wounds. Discussed he is at higher risk for wounds due to his neuropathy, hyperglycemia, obesity, swelling, and tabacco abuse. Discussed importance of smoking cessation, blood sugar control, weight management, offloading, proper nutrition, and hygiene to optimize healing potential. Arterial and venous studies were reviewed. Showing likely adequate perfusion for healing. Patient relates he has been smoking since he was 10 years old. Discussed impact smoking has on his vessels as well as impact on wound healing. Patient relates that he has had the swelling for a while and can't wear compression socks as he can't reach to put them on. He also denies being on a water pill. Patient physically is unable to reach his feet and thus is unable to do his own dressing changes. He has no family who could do this for him as he lives alone and his kids are over an hour away. Patient was able to obtain home health care aides to assist with dressing changes. Patient is noted to have decrease in swelling and overall better hygiene appearance most likely due to this. Patient has benefited from home health health care / medical job titles. Patient was approved for epi fix graft. I recommend application of advanced wound healing product to the indicated ulceration. Prior authorization was confirmed. The indications, benefits, anticipated application and healing time management were reviewed in detail. Verbal consent was obtained in the procedure for today. Site was debrided and graft was applied according to standard protocol and was further secured with a nonadherent dressing and Steri- Strips. Discussed with the patient continuing with total contact cast in order to better offload the heel ulcerated site and to keep wound graft well adhered to the wound base. Patient relates that he would prefer to stick with the offloaded surgical shoe as he feels unsteady and a total contact cast and is afraid of falling. We are continuing with the offloaded surgical shoe at this time. Discussed other methods of offloading including wheelchair, knee scooter, cam boot. Patient relates that he either has no access to or that they would not be usable at his house or he is afraid of falling in those devices and would prefer to stick with the surgical shoe. A&D ointment applied to bilateral lower extremity. Graft covered with DSD. SurePress compression to bilateral leg. To continue this per home health care. It is noted that the patient has refused entry to home health health care / medical job titles on multiple visits. Patient also has complaints of pain to his right foot. He isolates his pain to the styloid process of the fifth metatarsal. Discussed with patient that there is no callus on the side at this area. Discussed that there is no signs of infection or other wound developments here. Offered patient an x-ray in order to better assess the area. Patient refused. Discussed that if patient changes his mind we can place that order for him. All questions answered. Patient to follow up in 1 week. This note was generated with groopify dictation software. It may contain incorrect words, spelling, and punctuation that were not noted in checking the note before signing. The problems addressed require a low medical decision making level which includes two or more minor problems, a stable chronic illness, or an acute uncomplicated illness or injury. Physical Exam Const alert and no apparent distress General Appearance: cooperative and comfortable HEENT Head and Scalp: atraumatic Resp normal respiratory effort Effort and Inspection: able to speak in complete sentences Extremity normal capillary refill and no calf tenderness General Extremity: edema bilateral lower extremity; Negative for clubbing or cyanosis Peripheral Pulses: Yes posterior tibial pulses present bilateral diminished and dorsalis pedis pulses present bilateral diminished Skin General Skin Exam: dry skin; Negative for ecchymosis, erythema, eschar, pallor or dermatitis Rashes: no rashes Wounds: wounds noted Wound Narrative: ulcers noted to plantar left heel No malodor, erythema, purulence, probing to bone, streaking, fluctuation, crepitus, or other signs of infection. Skin is atrophic and hairless. Granular base. Surrounding diffuse callus noted to plantar heel left worse than right. Pain to palpation of left heel Pain to palpation of right lateral midfoot. This is at area styloid process. There is no signs of a wound at this time. There is no erythema, edema, fluctuance, crepitus. No pain with range of motion of midfoot joints. Muscle strength is intact. Neuro Gait (Neuro): normal gait and antalgic Sensory Exam: extremities light-touch: decreased Motor Exam: strength 5/5 throughout Psych Appearance: appropriate Attitude: calm Debridement Note Debridement Note Post-Debridement Measurements and Additional Note: Post-Debridement Measurements/Treatment WC - Nurse 2 - General Ulcer CM Notes Start: 09/19/20 09:55 Freq: Status: Active Protocol: Activity Type Activity Date Activity User E-Sign Co-Sign Detail Recorded Client Recorded Date Recorded By Document 09/19/20 10:15 DANIEL [id number] 09/19/20 10:28 DANIEL 09/19/20 10:15 Wound Center Nurse 2 #1 left heel CLUSTER -Time 10:16 -Correct Patient Yes -Correct Side, Site, Position Yes -Correct Procedure Yes -Procedure Performed Yes -Type of Procedure Debridement -Clinical Debridement Subcutaneous -Tissue Removed Subcutaneous -Post Debridement (cm) - Length 1.7 -Post Debridement (cm) - Width 1.5 -Post Debridement (cm) - Depth 0.5 -Total Square (Post) (cm) 2.55 -Area of Debridement (cm) - Length 1.7 -Area of Debridement (cm) - Width 1.5 -Total Square (Area) (cm) 2.55 -Tunneling No -Undermining/Tunneling No -Circular Undermining No -Wound/Ulcer Outcome Not Healed -Ulcer Cleansing Rinsed/ Irrigated with Saline -Foul Odor after Cleansing No -Bioengineered Tissue Yes -Type of Bioengineered Tissue Epifix -Expiration Date 05/19/25 -Product Lot Number [id number] -Percent Used 100 -Lot number of Saline Used [id number] -Bleeding Controlled with Pressure -Offloading Yes -Type of Offloading Surgical Shoe -Treatment Response Procedure Tolerated Well -Debridement - Subq, 1st 20sq cm No -Apply Skin Sub - 1st 25 sq cm - Feet 1 -Epifix (per sq cm) 4 Pain Scale: 0-10 Numeric Is Patient Pain Free? Yes WC - Nurse 3 - General Ulcer D/C NN Start: 09/19/20 09:55 Freq: Status: Active Protocol: Activity Type Activity Date Activity User E-Sign Co-Sign Detail Recorded Client Recorded Date Recorded By Document 09/19/20 10:53 MW [id number] 09/19/20 10:54 MW 09/19/20 10:53 Wound Care Nurse 3 #1 left heel CLUSTER -Ulcer Cleansing Not Cleansed -Foul Odor after Cleansing No -Negative Pressure Wound Therapy N/A -Primary Dressing Covered/Secured with Dry Gauze & Roll Gauze, Secured with Tape -Other Covering abd pad Right -Lotion applied to leg before Yes compression wrap -Compression Wrap Kevin Wrap -Size of Tubigrip Used Size F -Size F ($) 1 Left -Lotion applied to leg before Yes compression wrap -Compression Wrap Kvein Wrap -Size of Tubigrip Used Size F -Size F ($) 1 Treatment Response Procedure Tolerated Well Pain Scale: 0-10 Numeric Is Patient Pain Free? Yes Teaching: Wound Center Dressing Your Wound -Person Taught Patient -Teaching Method Discussion, Demonstration -Response to teaching Verbalize understanding WC - Visit Discharge Discharge Condition Stable Ambulatory Status Ambulatory, Walker Transportation Private Auto Accompanied by self Medication Reconcilliation completed & No provided to patient/care provider Clinical Summary of Care Provided Yes Wound debrided: Heel plantar Laterality: Left Wound Grade/Stage: Acevedo 1 Type of Debridement: Excisional debridement Anesthesia Used: 4% Lidocaine Solution Depth: in the subcutaneous layer Percentage of wound debrided: 100 Instrument Used: 3mm curette Tissue Removed: Includes fibrous, devitalized, biofilm, callus and slough tissue Severity: Fat Layer Exposed Amount of bleeding with debridement: Mild Bleeding Controlled with: Pressure Patient tolerated procedure: Patient tolerated procedure well
--- NOTE | 2020-09-25 08:26 | WC ---
Per Dr Nair, Patient's weight bearing status to ulcer is partial with focus on forefoot weight bearing in surgical shoe. RA Romo, with N was informed on this. His contact # is [phone].
[2020-09-26 10:04] VITALS: BP 125/75; PULSE 72; RESP 20; TEMP 37.1; BMI 33.7
--- NOTE | 2020-09-26 11:53 | PN.PCM_ITS ---
History of Present Illness Date of Service: 09/26/20 Chief Complaint: left heel ulcer swelling calluses History of Wound: Patient presents for wound to left plantar foot. He is unsure how long it has been there as he can't see or reach his feet. He attributes this largely to his obesity. He relates that his daughter looked at his feet and saw the wound. He relates that his children live over an hour away and he lives alone. He relates some bloody drainage has been noted. He relates his daughter put a gauze over it secured with tape. Patient also complains of swelling to his legs, especially his left. He relates he has smoked since he was 10 years old. He is also diabetic with neuropathy and relates his last hemoglobin A1c was 9.6. He also has hypertension. Patient relates improvement in left heel pain when in total contact cast but that he feels unsteady and has fallen and does not wish to continue this Patient has also had recent admission to the hospital for hypoxemia and heart failure. Patient was noted to be discharged on oxygen therapy. Patient did not present to the clinic today on his oxygen. He relates that he is using 2 L while at home still. He relates no significant change after appointment with stove polisher Progress of Wound: Wound is noted to be stable. There is worsening of swelling noted to his left leg. Subjective Subjective: Patient seen and examined resting comfortably. Patient denies any new pedal complaints. Patient denies any nausea, fever, chills, chest pain, shortness of breath, cough, streaking, purulence, vomiting. Patient relates that the compression stocking placed on his left leg keep swelling down and he is not able to reach his legs in order to reapply it and has to wait for home of care for assistance Objective Data Objective Data Vital Signs: Vital Signs Temp Pulse Resp BP 98.7 F 72 20 H 125/75 H 09/26/20 10:04 09/26/20 10:04 09/26/20 10:04 09/26/20 10:04 Body Mass Index (BMI) 33.7 Assessment & Plan Assessment/Plan (1) Non-pressure chronic ulcer of left heel and midfoot with fat layer exposed: (2) Left foot pain: (3) Corns and callosities: (4) Type 2 diabetes mellitus with diabetic polyneuropathy: QUALIFIERS: Diabetes mellitus senior care insulin use: with senior care use Qualified Code(s): E11.42 - Type 2 diabetes mellitus with diabetic polyneuropathy; Z79.4 - penitentiary (current) use of insulin (5) Tobacco abuse: (6) Obesity: QUALIFIERS: Body mass index: BMI 33.0-33.9 Obesity classification: adult class 1 (BMI 30 - 34.9) Obesity type: due to excess calories Serious obesity comorbidity presence: with serious comorbidity Qualified Code(s): E66.09 - Other obesity due to excess calories; Z68.33 - Body mass index [BMI] 33.0-33.9, adult (7) Pain in right foot: PLAN: Patient seen and examined. Patient wound was noted to be stable. There is some worsening of his edema noted Ulcerations were sharply debrided after verbal consent was obtained from the patient. Was done without incident. Continued debridement of surrounding callus tissue provided. Discussed importance of cleaning and maintaining foot both to prevent infection as well as to prevent future wounds. Discussed he is at higher risk for wounds due to his neuropathy, hyperglycemia, obesity, swelling, and tabacco abuse. Discussed importance of smoking cessation, blood sugar control, weight management, offloading, proper nutrition, and hygiene to optimize healing potential. Arterial and venous studies were reviewed. Showing likely adequate perfusion for healing. Patient relates he has been smoking since he was 10 years old. Discussed impact smoking has on his vessels as well as impact on wound healing. Patient relates that he has had the swelling for a while and can't wear compression socks as he can't reach to put them on. He also denies being on a water pill. Patient physically is unable to reach his feet and thus is unable to do his own dressing changes. He has no family who could do this for him as he lives alone and his kids are over an hour away. Patient was able to obtain home health care aides to assist with dressing changes. Patient is noted to have decrease in swelling and overall better hygiene appearance most likely due to this. Patient has benefited from home health coronary care unit nurse. Patient was approved for epi fix graft. I recommend application of advanced wound healing product to the indicated ulceration. Prior authorization was confirmed. The indications, benefits, anticipated application and healing time management were reviewed in detail. Verbal consent was obtained in the procedure for today. Site was debrided and graft was applied according to standard protocol and was further secured with a nonadherent dressing and Steri- Strips. Discussed with the patient continuing with total contact cast in order to better offload the heel ulcerated site and to keep wound graft well adhered to the wound base. Patient relates that he would prefer to stick with the offloaded surgical shoe as he feels unsteady and a total contact cast and is afraid of falling. We are continuing with the offloaded surgical shoe at this time. Discussed other methods of offloading including wheelchair, knee scooter, cam boot. Patient relates that he either has no access to or that they would not be usable at his house or he is afraid of falling in those devices and would prefer to stick with the surgical shoe. A&D ointment applied to bilateral lower extremity. Graft covered with DSD. 3M 2 layer compression to bilateral leg. It is noted that the patient has refused entry to home health coronary care unit nurse on multiple visits. All questions answered. Patient to follow up in 1 week. This note was generated with [employer] dictation software. It may contain incorrect words, spelling, and punctuation that were not noted in checking the note before signing. Physical Exam Const alert and no apparent distress General Appearance: cooperative and comfortable Resp normal respiratory effort Effort and Inspection: able to speak in complete sentences Extremity normal capillary refill and no calf tenderness General Extremity: edema bilateral lower extremity; Negative for clubbing or cyanosis Skin General Skin Exam: dry skin; Negative for ecchymosis, erythema, eschar, pallor or dermatitis Rashes: no rashes Wounds: wounds noted Wound Narrative: ulcers noted to plantar left heel No malodor, erythema, purulence, probing to bone, streaking, fluctuation, crepitus, or other signs of infection. Skin is atrophic and hairless. Granular base. Surrounding diffuse callus noted to plantar heel left worse than right. Pain to palpation of left heel improved Edema noted to left lower extremity. There is significant cut off at the mid dempsey level. This is where the compression wrap he was using had fallen to. Above this level there is significant increase in swelling noted Neuro Sensory Exam: extremities light-touch: decreased Motor Exam: strength 5/5 throughout Psych Appearance: appropriate Attitude: calm Debridement Note Debridement Note Post-Debridement Measurements and Additional Note: Post-Debridement Measurements/Treatment JANESSA - Nurse 1 - General Ulcer Assessment Start: 09/19/20 09:55 Freq: Status: Active Protocol: EVELYN Activity Type Activity Date Activity User E-Sign Co-Sign Detail Recorded Client Recorded Date Recorded By Document 09/19/20 09:55 DL [id number] 09/19/20 10:07 DL Document 09/26/20 10:04 DL [id number] 09/26/20 10:08 DL 09/19/20 09/26/20 09:55 10:04 - Today's Visit Information Type of service Follow-up Visit Follow-up Visit (Physician/GARBAGE COLLECTOR DRIVER (Physician/GARBAGE COLLECTOR DRIVER ) ) Arrival Mode Ambulatory, Ambulatory, Walker Walker Transfer Assistance None None Patient Identification Verified (Name & Yes ) Patient Requires Transmission-Based No No Precautions Finger Stick Blood Sugar(mg/dl) (if 147 126 indicated): Blood Sugar Stated by Stated by Patient Patient Height and Weight Body Mass Index (BMI) 33.7 33.7 BMI Classification Obese Obese Vital Signs Temperature (97.8 F-99.1 F) 97.3 F L 98.7 F Temperature Source Temporal Temporal Pulse Rate (60-100) 70 72 Pulse Location Monitor Apical Respiratory Rate (12-18) 22 H 20 H Respiratory rate source Observation Observation Blood Pressure (90/60-120/80) 132/65 H 125/75 H Blood Pressure Mean (mm Hg) 87 91 Source Monitor Monitor History Since Last Visit- (Skip if this is Patient's initial visit) Have you changed medications since your No No last visit? Any new allergies or adverse reactions No No Had a fall/change in ADL's that may No increase risk of falls Signs or symptoms of abuse and/or No No neglect since last visit Have you been in the hospital since your No last visit? Has dressing in place as prescribed Yes Yes Has compression in place as prescribed Yes No Has offloadiing in place as prescribed Yes Yes Experienced any changes in pain level or No No management Left Footwear Surgical Shoe Surgical Shoe with pressure with pressure relief insole relief insole Pain Scale: 0-10 Numeric Is Patient Pain Free? Yes Yes - Nurse 1 - General Ulcer Measurement Start: 09/19/20 09:55 Freq: Status: Active Protocol: Activity Type Activity Date Activity User E-Sign Co-Sign Detail Recorded Client Recorded Date Recorded By Document 09/19/20 09:55 DL [id number] 09/19/20 10:07 DL Document 09/26/20 10:04 DL [id number] 09/26/20 10:08 DL 09/19/20 09/26/20 09:55 10:04 Wound Center Nurse 1 3- right 4th toe -Exudate Amt Medium -Necrotic Tissue Type Adherent Slough -Texture (Margaret-wound Skin Appearance) Scarring -Moisture (Margaret-wound Skin Appearance) Maceration -Color (Margaret-wound Skin Appearance) Hemosiderin Staining -Foul Odor after Cleansing No #1 left heel CLUSTER -Current Size (cm) - Length 1.8 1.7 -Current Size (cm) - Width 1.4 1.7 -Current Size (cm) - Depth 0.6 0.7 -Total Square Cm 2.52 2.89 -Photo Taken No No -Undermining/Tunneling Starts (O'clock 7 ) -Undermining/Tunneling Ends (O'clock) 11 -Maximum Distance (cm) 0.2 -Maximum Distance #2 (cm) 0.5 -Exudate Amt Medium Small -Exudate Type Serosanguineous -Wound Margin Thickened Thickened -Granulation Amt None Present (0 None Present (0 %) %) -Necrosis Amt Large (67-100%) Large (67-100%) -Necrotic Tissue Type Adherent Slough Adherent Slough -Structure Exposed N/A N/A -Texture (Margaret-wound Skin Appearance) Scarring Callus -Moisture (Margaret-wound Skin Appearance) Maceration,Dry/ Dry/Scaly Scaly -Color (Margaret-wound Skin Appearance) Hemosiderin Hemosiderin Staining Staining -Temperature (Margaret-wound Skin No Abnormality No Abnormality Appearance) (Pt Warm) (Pt Warm) -Tenderness on Palpation (Margaret-wound No Yes Skin Appearance) -Ulcer Cleansing Wound Cleanser Wound Cleanser -Foul Odor after Cleansing No No -Anesthetic Used 4% Lidocaine 4% Lidocaine Solution Solution,5% Lidocaine Gel Left Calf (cm) 42 45.2 Left Ankle (cm) 25 26.5 WC - Nurse 2 - General Ulcer CM Notes Start: 09/19/20 09:55 Freq: Status: Active Protocol: Activity Type Activity Date Activity User E-Sign Co-Sign Detail Recorded Client Recorded Date Recorded By Document 09/19/20 10:15 DANIEL [id number] 09/19/20 10:28 DANIEL Document 09/26/20 10:39 DANIEL [id number] 09/26/20 10:42 JF Edit Result 09/26/20 10:39 JF (1) [id number] 09/26/20 10:44 JF (1) #1 left heel CLUSTER - Post Debridement (cm) - Length 2 => 1.8 - Total Square (Post) (cm) 2.8 => 2.52 - Area of Debridement (cm) - Length 2 => 1.8 - Total Square (Area) (cm) 2.8 => 2.52 09/19/20 09/26/20 10:15 10:39 Wound Center Nurse 2 #1 left heel CLUSTER -Time 10:16 10:39 -Correct Patient Yes Yes -Correct Side, Site, Position Yes Yes -Correct Procedure Yes Yes -Procedure Performed Yes Yes -Type of Procedure Debridement Debridement -Clinical Debridement Subcutaneous Subcutaneous -Tissue Removed Subcutaneous Subcutaneous -Post Debridement (cm) - Length 1.7 1.8 -Post Debridement (cm) - Width 1.5 1.4 -Post Debridement (cm) - Depth 0.5 0.3 -Total Square (Post) (cm) 2.55 2.52 -Area of Debridement (cm) - Length 1.7 1.8 -Area of Debridement (cm) - Width 1.5 1.4 -Total Square (Area) (cm) 2.55 2.52 -Tunneling No No -Undermining/Tunneling No No -Circular Undermining No No -Wound/Ulcer Outcome Not Healed Not Healed -Ulcer Cleansing Rinsed/ Rinsed/ Irrigated with Irrigated with Saline Saline -Foul Odor after Cleansing No No -Bioengineered Tissue Yes Yes -Type of Bioengineered Tissue Epifix Epifix -Expiration Date 05/19/25 06/19/25 -Product Lot Number [id number] -Percent Used 100 100 -Lot number of Saline Used [id number] -Bleeding Controlled with Pressure NA -Offloading Yes Yes -Type of Offloading Surgical Shoe Surgical Shoe -Treatment Response Procedure Procedure Tolerated Well Tolerated Well -Debridement - Subq, 1st 20sq cm No No -Apply Skin Sub - 1st 25 sq cm - Feet 1 1 -Epifix (per sq cm) 4 4 Pain Scale: 0-10 Numeric Is Patient Pain Free? Yes Yes WC - Nurse 3 - General Ulcer D/C NN Start: 09/19/20 09:55 Freq: Status: Active Protocol: Activity Type Activity Date Activity User E-Sign Co-Sign Detail Recorded Client Recorded Date Recorded By Document 09/19/20 10:53 MW [id number] 09/19/20 10:54 MW Document 09/26/20 11:[address] [facility] [id number] 09/26/20 11:08 BM 09/19/20 09/26/20 10:53 11:06 Wound Care Nurse 3 #1 left heel CLUSTER -Ulcer Cleansing Not Cleansed -Foul Odor after Cleansing No -Negative Pressure Wound Therapy N/A -Other Dressing epifix -Primary Dressing Covered/Secured with Dry Gauze & Dry Gauze & Roll Gauze, Roll Gauze, Secured with Secured with Tape Tape,Other -Other Covering abd pad heel hat Right -Lotion applied to leg before Yes compression wrap -Compression Wrap Kevin Wrap -Size of Tubigrip Used Size F -Size F ($) 1 Left -Lotion applied to leg before Yes compression wrap -Multi-Layered Wrap Application Multi-Layer Comp - Left ($) -Compression Wrap Kevin Wrap -Size of Tubigrip Used Size F -Size F ($) 1 Treatment Response Procedure Procedure Tolerated Well Tolerated Well Pain Scale: 0-10 Numeric Is Patient Pain Free? Yes Yes Teaching: Wound Center Dressing Your Wound -Person Taught Patient -Teaching Method Discussion, Demonstration -Response to teaching Verbalize understanding WC - Visit Discharge Discharge Condition Stable Stable Ambulatory Status Ambulatory, Ambulatory, Walker Walker Transportation Private Auto Accompanied by self Medication Reconcilliation completed & No provided to patient/care provider Clinical Summary of Care Provided Yes Wound debrided: Plantar heel Laterality: Left Wound Grade/Stage: Acevedo 1 Type of Debridement: Excisional debridement Anesthesia Used: 4% Lidocaine Solution Depth: in the subcutaneous layer Percentage of wound debrided: 100 Instrument Used: 3mm curette Tissue Removed: includes fibrous, devitalized, biofilm, callus and slough tissue Severity: Fat Layer Exposed Amount of bleeding with debridement: Mild Bleeding Controlled with: Pressure Patient tolerated procedure: Patient tolerated procedure well
[2020-10-03 10:19] VITALS: BP 145/55; PULSE 69; RESP 18; TEMP 37.2; BMI 33.7
--- NOTE | 2020-10-03 12:17 | PN.PCM_ITS ---
History of Present Illness Date of Service: 10/03/20 Chief Complaint: left heel ulcer swelling calluses History of Wound: Patient presents for wound to left plantar foot. He is unsure how long it has been there as he can't see or reach his feet. He attributes this largely to his obesity. He relates that his daughter looked at his feet and saw the wound. He relates that his children live over an hour away and he lives alone. He relates some bloody drainage has been noted. He relates his daughter put a gauze over it secured with tape. Patient also complains of swelling to his legs, especially his left. He relates he has smoked since he was 10 years old. He is also diabetic with neuropathy and relates his last hemoglobin A1c was 9.6. He also has hypertension. Patient relates improvement in left heel pain when in total contact cast but that he feels unsteady and has fallen and does not wish to continue this Patient has also had recent admission to the hospital for hypoxemia and heart failure. Patient was noted to be discharged on oxygen therapy. Patient did not present to the clinic today on his oxygen. He relates that he is using 2 L while at home still. He relates no significant change after appointment with cable splicer helper Progress of Wound: Wound is noted to be stable. Subjective Subjective Patient seen and examined resting comfortably. Patient denies any new pedal complaints. Patient denies any nausea, fever, chills, chest pain, shortness of breath, cough, streaking, purulence, vomiting. Patient relates having difficult time staying off of his feet. Objective Data Objective Data Vital Signs: Vital Signs Temp Pulse Resp BP 98.9 F 69 18 145/55 H 10/03/20 10:19 10/03/20 10:19 10/03/20 10:19 10/03/20 10:19 Body Mass Index (BMI) 33.7 Assessment & Plan Assessment/Plan (1) Non-pressure chronic ulcer of left heel and midfoot with fat layer exposed: (2) Left foot pain: (3) Corns and callosities: (4) Type 2 diabetes mellitus with diabetic polyneuropathy: QUALIFIERS: Diabetes mellitus fci insulin use: with fci use Qualified Code(s): E11.42 - Type 2 diabetes mellitus with diabetic shantel yneuropathy; Z79.4 - skilled nursing (current) use of insulin (5) Tobacco abuse: (6) Obesity: QUALIFIERS: Obesity type: due to excess calories Obesity classification: adult class 1 (BMI 30 - 34.9) Serious obesity comorbidity presence: with serious comorbidity Body mass index: BMI 33.0-33.9 Qualified Code(s): E66.09 - Other obesity due to excess calories; Z68.33 - Body mass index [BMI] 33.0-33.9, adult (7) Pain in right foot: (8) Bilateral edema of lower extremity: PLAN: Patient seen and examined. Patient wound was noted to be stable. There is no real change in wound appearance. Edema is moderately better controlled given that there is less cut off noted but is still swollen. Ulcerations were sharply debrided after verbal consent was obtained from the patient. Was done without incident. Continued debridement of surrounding callus tissue provided. Discussed importance of cleaning and maintaining foot both to prevent infection as well as to prevent future wounds. Discussed he is at higher risk for wounds due to his neuropathy, hyperglycemia, obesity, swelling, and tabacco abuse. Discussed importance of smoking cessation, blood sugar control, weight management, offloading, proper nutrition, and hygiene to optimize healing potential. Arterial and venous studies were reviewed. Showing likely adequate perfusion for healing. Patient relates he has been smoking since he was 10 years old. Discussed impact smoking has on his vessels as well as impact on wound healing. Discussed at length that he is not making progress most likely due to the pressure is putting on the ulceration site. Discussed that there is more aggressive offloading options available to him including the total contact cast but patient does not wish to do this. Patient relates that he has crutches at home and uses them occasionally. Discussed using them all the time in order to offload the area better. Discussed that each step he takes is slowing down his wound healing progress. Patient demonstrated limited understanding of this concept. Patient relates that he has had the swelling for a while and can't wear compression socks as he can't reach to put them on. He also denies being on a water pill. Patient physically is unable to reach his feet and thus is unable to do his own dressing changes. He has no family who could do this for him as he lives alone and his kids are over an hour away. Patient was able to obtain home health care aides to assist with dressing changes. Patient is noted to have decrease in swelling and overall better hygiene appearance most likely due to this. Patient has benefited from home health assurance services manager health care. Patient was approved for epi fix graft. I recommend application of advanced wound healing product to the indicated ulceration. Prior authorization was confirmed. The indications, benefits, anticipated application and healing time management were reviewed in detail. Verbal consent was obtained in the procedure for today. Site was debrided and graft was applied according to standard protocol and was further secured with a nonadherent dressing and Steri- Strips. Discussed with the patient continuing with total contact cast in order to better offload the heel ulcerated site and to keep wound graft well adhered to the wound base. Patient relates that he would prefer to stick with the offloaded surgical shoe as he feels unsteady and a total contact cast and is afraid of falling. We are continuing with the offloaded surgical shoe at this time. Discussed other methods of offloading including wheelchair, knee scooter, cam boot, crutches. Patient relates that he either has no access to or that they would not be usable at his house or he is afraid of falling in those devices and would prefer to stick with the surgical shoe. A&D ointment applied to bilateral lower extremity. Graft covered with DSD. 3M 2 layer compression to bilateral leg. This was noted to have fallen and unraveled over the week. Discussed coming in at the end of the week on or Friday for nurses visit to replace this to see if this will better control his swelling without problems with the dressing. It is noted that the patient has refused entry to home health assurance services manager health care on multiple visits. All questions answered. Patient to follow up in 1 week. This note was generated with [employer] dictation software. It may contain incorrect words, spelling, and punctuation that were not noted in checking the note before signing. Physical Exam Const alert and no apparent distress General Appearance: cooperative and comfortable Resp normal respiratory effort Effort and Inspection: able to speak in complete sentences Extremity normal capillary refill and no calf tenderness General Extremity: edema bilateral lower extremity; Negative for clubbing or cyanosis Peripheral Pulses: Yes posterior tibial pulses present bilateral diminished and dorsalis pedis pulses present bilateral diminished Skin General Skin Exam: dry skin; Negative for ecchymosis, erythema, eschar, pallor or dermatitis Rashes: no rashes Wounds: wounds noted Wound Narrative: ulcers noted to plantar left heel No malodor, erythema, purulence, probing to bone, streaking, fluctuation, crepitus, or other signs of infection. Skin is atrophic and hairless. Granular base. Surrounding diffuse callus noted to plantar heel left worse than right. Pain to palpation of left heel improved. No significant improvement noted to wound. Edema noted to left lower extremity. There is less cut off at the mid dempsey level noted but it is also apparent that the 3M compression dressing did not stay in place throughout the week. Neuro Sensory Exam: extremities light-touch: decreased Motor Exam: strength 5/5 throughout Psych Appearance: appropriate Attitude: calm Debridement Note Debridement Note Post-Debridement Measurements and Additional Note: Post-Debridement Measurements/Treatment - Nurse 1 - General Ulcer Assessment Start: 09/19/20 09:55 Freq: Status: Active Protocol: EVELYN Activity Type Activity Date Activity User E-Sign Co-Sign Detail Recorded Client Recorded Date Recorded By Document 09/19/20 09:55 DL [id number] 09/19/20 10:07 DL Document 09/26/20 10:04 DL [id number] 09/26/20 10:08 DL Document 10/03/20 10:19 DL [id number] 10/03/20 10:22 DL 09/19/20 09/26/20 10/03/20 09:55 10:04 10:19 - Today's Visit Information Type of service Follow-up Visit Follow-up Visit Follow-up Visit (Physician/THERAPIST OCCUPATIONAL (Physician/THERAPIST OCCUPATIONAL (Physician/THERAPIST OCCUPATIONAL ) ) ) Arrival Mode Ambulatory, Ambulatory, Ambulatory, Walker Walker Walker Transfer Assistance None None Transfer Board Patient Identification Verified (Name & Yes Yes ) Patient Requires Transmission-Based No No No Precautions Finger Stick Blood Sugar(mg/dl) (if 147 126 indicated): Blood Sugar Stated by Stated by Patient Patient Height and Weight Body Mass Index (BMI) 33.7 33.7 33.7 BMI Classification Obese Obese Obese Vital Signs Temperature (97.8 F-99.1 F) 97.3 F L 98.7 F 98.9 F Temperature Source Temporal Temporal Temporal Pulse Rate (60-100) 70 72 69 Pulse Location Monitor Apical Monitor Respiratory Rate (12-18) 22 H 20 H 18 Respiratory rate source Observation Observation Observation Blood Pressure (90/60-120/80) 132/65 H 125/75 H 145/55 H Blood Pressure Mean (mm Hg) 87 91 85 Source Monitor Monitor Monitor History Since Last Visit- (Skip if this is Patient's initial visit) Have you changed medications since your No No No last visit? Any new allergies or adverse reactions No No No Had a fall/change in ADL's that may No No increase risk of falls Signs or symptoms of abuse and/or No No No neglect since last visit Have you been in the hospital since your No No last visit? Has dressing in place as prescribed Yes Yes Yes Has compression in place as prescribed Yes No Yes Has offloadiing in place as prescribed Yes Yes Yes Experienced any changes in pain level or No No No management Left Footwear Surgical Shoe Surgical Shoe Surgical Shoe with pressure with pressure with pressure relief insole relief insole relief insole Pain Scale: 0-10 Numeric Is Patient Pain Free? Yes Yes Yes WC - Nurse 1 - General Ulcer Measurement Start: 09/19/20 09:55 Freq: Status: Active Protocol: Activity Type Activity Date Activity User E-Sign Co-Sign Detail Recorded Client Recorded Date Recorded By Document 09/19/20 09:55 DL [id number] 09/19/20 10:07 DL Document 09/26/20 10:04 DL [id number] 09/26/20 10:08 DL Document 10/03/20 10:19 DL [id number] 10/03/20 10:22 DL 09/19/20 09/26/20 10/03/20 09:55 10:04 10:19 Wound Center Nurse 1 3- right 4th toe -Exudate Amt Medium -Necrotic Tissue Type Adherent Slough -Texture (Margaret-wound Skin Appearance) Scarring -Moisture (Margaret-wound Skin Appearance) Maceration -Color (Margaret-wound Skin Appearance) Hemosiderin Staining -Foul Odor after Cleansing No #1 left heel CLUSTER -Current Size (cm) - Length 1.8 1.7 1.4 -Current Size (cm) - Width 1.4 1.7 1.4 -Current Size (cm) - Depth 0.6 0.7 0.4 -Total Square Cm 2.52 2.89 1.96 -Photo Taken No No No -Undermining/Tunneling Starts (O'clock 7 4 ) -Undermining/Tunneling Ends (O'clock) 11 8 -Maximum Distance (cm) 0.2 0.2 -Maximum Distance #2 (cm) 0.5 -Exudate Amt Medium Small Medium -Exudate Type Serosanguineous Serosanguineous -Wound Margin Thickened Thickened Thickened -Granulation Amt None Present (0 None Present (0 Medium (34-66%) %) %) -Granulation Quality Hugo -Necrosis Amt Large (67-100%) Large (67-100%) Medium (34-66%) -Necrotic Tissue Type Adherent Slough Adherent Slough Adherent Slough -Structure Exposed N/A N/A N/A -Texture (Margaret-wound Skin Appearance) Scarring Callus Scarring -Moisture (Margaret-wound Skin Appearance) Maceration,Dry/ Dry/Scaly No Abnormality Scaly -Color (Margaret-wound Skin Appearance) Hemosiderin Hemosiderin Hemosiderin Staining Staining Staining -Temperature (Margaret-wound Skin No Abnormality No Abnormality No Abnormality Appearance) (Pt Warm) (Pt Warm) (Pt Warm) -Tenderness on Palpation (Margaret-wound No Yes No Skin Appearance) -Ulcer Cleansing Wound Cleanser Wound Cleanser Wound Cleanser -Foul Odor after Cleansing No No No -Anesthetic Used 4% Lidocaine 4% Lidocaine 5% Lidocaine Solution Solution,5% Gel Lidocaine Gel Right Calf (cm) 43.8 Right Ankle (cm) 24.8 Left Calf (cm) 42 45.2 44.5 Left Ankle (cm) 25 26.5 25.5 WC - Nurse 2 - General Ulcer CM Notes Start: 09/19/20 09:55 Freq: Status: Active Protocol: Activity Type Activity Date Activity User E-Sign Co-Sign Detail Recorded Client Recorded Date Recorded By Document 09/19/20 10:15 [id number] 09/19/20 10:28 Document 09/26/20 10:39 [id number] 09/26/20 10:42 Edit Result 09/26/20 10:39 JF (1) [id number] 09/26/20 10:44 Document 10/03/20 10:48 [id number] 10/03/20 10:56 JF (1) #1 left heel CLUSTER - Post Debridement (cm) - Length 2 => 1.8 - Total Square (Post) (cm) 2.8 => 2.52 - Area of Debridement (cm) - Length 2 => 1.8 - Total Square (Area) (cm) 2.8 => 2.52 09/19/20 09/26/20 10/03/20 10:15 10:39 10:48 Wound Center Nurse 2 #1 left heel CLUSTER -Time 10:16 10:39 10:48 -Correct Patient Yes Yes Yes -Correct Side, Site, Position Yes Yes Yes -Correct Procedure Yes Yes Yes -Procedure Performed Yes Yes Yes -Type of Procedure Debridement Debridement Debridement -Clinical Debridement Subcutaneous Subcutaneous Subcutaneous -Tissue Removed Subcutaneous Subcutaneous Subcutaneous -Post Debridement (cm) - Length 1.7 1.8 1.8 -Post Debridement (cm) - Width 1.5 1.4 1.5 -Post Debridement (cm) - Depth 0.5 0.3 0.3 -Total Square (Post) (cm) 2.55 2.52 2.70 -Area of Debridement (cm) - Length 1.7 1.8 1.8 -Area of Debridement (cm) - Width 1.5 1.4 1.5 -Total Square (Area) (cm) 2.55 2.52 2.70 -Tunneling No No No -Undermining/Tunneling No No No -Circular Undermining No No No -Wound/Ulcer Outcome Not Healed Not Healed Not Healed -Ulcer Cleansing Rinsed/ Rinsed/ Rinsed/ Irrigated with Irrigated with Irrigated with Saline Saline Saline -Foul Odor after Cleansing No No No -Bioengineered Tissue Yes Yes Yes -Type of Bioengineered Tissue Epifix Epifix Epifix -Expiration Date 05/19/25 06/19/25 06/19/25 -Product Lot Number [id number] -Percent Used 100 100 100 -Lot number of Saline Used [id number] -Bleeding Controlled with Pressure NA Pressure -Offloading Yes Yes Yes -Type of Offloading Surgical Shoe Surgical Shoe Surgical Shoe -Treatment Response Procedure Procedure Procedure Tolerated Well Tolerated Well Tolerated Well -Debridement - Subq, 1st 20sq cm No No No -Apply Skin Sub - 1st 25 sq cm - Feet 1 1 1 -Epifix (per sq cm) 4 4 4 Pain Scale: 0-10 Numeric Is Patient Pain Free? Yes Yes Yes WC - Nurse 3 - General Ulcer D/C NN Start: 09/19/20 09:55 Freq: Status: Active Protocol: Activity Type Activity Date Activity User E-Sign Co-Sign Detail Recorded Client Recorded Date Recorded By Document 09/19/20 10:53 MW [id number] 09/19/20 10:54 MW Document 09/26/20 11:06 [facility] [id number] 09/26/20 11:08 [facility] 09/19/20 09/26/20 10:53 11:06 Wound Care Nurse 3 #1 left heel CLUSTER -Ulcer Cleansing Not Cleansed -Foul Odor after Cleansing No -Negative Pressure Wound Therapy N/A -Other Dressing epifix -Primary Dressing Covered/Secured with Dry Gauze & Dry Gauze & Roll Gauze, Roll Gauze, Secured with Secured with Tape Tape,Other -Other Covering abd pad heel hat Right -Lotion applied to leg before Yes compression wrap -Compression Wrap Kevin Wrap -Size of Tubigrip Used Size F -Size F ($) 1 Left -Lotion applied to leg before Yes compression wrap -Multi-Layered Wrap Application Multi-Layer Comp - Left ($) -Compression Wrap Kevin Wrap -Size of Tubigrip Used Size F -Size F ($) 1 Treatment Response Procedure Procedure Tolerated Well Tolerated Well Pain Scale: 0-10 Numeric Is Patient Pain Free? Yes Yes Teaching: Wound Center Dressing Your Wound -Person Taught Patient -Teaching Method Discussion, Demonstration -Response to teaching Verbalize understanding WC - Visit Discharge Discharge Condition Stable Stable Ambulatory Status Ambulatory, Ambulatory, Walker Walker Transportation Private Auto Accompanied by self Medication Reconcilliation completed & No provided to patient/care provider Clinical Summary of Care Provided Yes Wound debrided: Plantar heel Laterality: Left Wound Grade/Stage: Acevedo 1 Type of Debridement: Excisional debridement Anesthesia Used: 4% Lidocaine Solution Depth: in the subcutaneous layer Percentage of wound debrided: 100 Instrument Used: 3mm curette Tissue Removed: includes fibrous, devitalized, biofilm, callus and slough tissue Severity: Fat Layer Exposed Amount of bleeding with debridement: Mild Bleeding Controlled with: Pressure Patient tolerated procedure: Patient tolerated procedure well
[2020-10-05 11:52] VITALS: BP 132/70; PULSE 67; RESP 18; TEMP 36.7; BMI 33.7
[2020-10-10 09:52] VITALS: BP 155/62; PULSE 64; RESP 20; TEMP 36.7; BMI 33.7
--- NOTE | 2020-10-10 12:28 | PCM.WC.PN ---
History of Present Illness Date of Service: 10/10/20 Chief Complaint: left heel ulcer swelling calluses History of Wound: Patient presents for wound to left plantar foot. He is unsure how long it has been there as he can't see or reach his feet. He attributes this largely to his obesity. He relates that his daughter looked at his feet and saw the wound. He relates that his children live over an hour away and he lives alone. He relates some bloody drainage has been noted. He relates his daughter put a gauze over it secured with tape. Patient also complains of swelling to his legs, especially his left. He relates he has smoked since he was 10 years old. He is also diabetic with neuropathy and relates his last hemoglobin A1c was 9.6. He also has hypertension. Patient relates improvement in left heel pain when in total contact cast but that he feels unsteady and has fallen and does not wish to continue this Patient has also had recent admission to the hospital for hypoxemia and heart failure. Patient was noted to be discharged on oxygen therapy. Patient did not present to the clinic today on his oxygen. He relates that he is using 2 L while at home still. He relates no significant change after appointment with professor of management Progress of Wound: Wound is noted to be stable. Subjective Subjective Patient seen and examined resting comfortably. Patient denies any new pedal complaints. Patient denies any nausea, fever, chills, chest pain, shortness of breath, cough, streaking, purulence, vomiting. Objective Data Objective Data Vital Signs: Vital Signs Temp Pulse Resp BP 98.1 F 64 20 H 155/62 H 10/10/20 09:52 10/10/20 09:52 10/10/20 09:52 10/10/20 09:52 Body Mass Index (BMI) 33.7 Physical Exam Const alert and no apparent distress General Appearance: cooperative and comfortable Resp normal respiratory effort Effort and Inspection: able to speak in complete sentences Extremity normal capillary refill and no calf tenderness General Extremity: edema bilateral lower extremity; Negative for clubbing or cyanosis Peripheral Pulses: Yes posterior tibial pulses present left diminished and dorsalis pedis pulses present left diminished Skin General Skin Exam: dry skin; Negative for ecchymosis, erythema, eschar, pallor or dermatitis Rashes: no rashes Wounds: wounds noted Wound Narrative: ulcers noted to plantar left heel No malodor, erythema, purulence, probing to bone, streaking, fluctuation, crepitus, or other signs of infection. Skin is atrophic and hairless. Granular base. Surrounding diffuse callus noted to plantar heel left worse than right. Pain to palpation of left heel improved. No significant improvement noted to wound. Edema noted to left lower extremity. There is evidence of the compression wrap noted to patient's skin from some edema management. Nails 1-3 4 5 bilateral are noted to be thickened, dystrophic, elongated, discolored in appearance with some subungual debris noted. Neuro Gait (Neuro): normal gait and antalgic Sensory Exam: extremities light-touch: decreased Motor Exam: strength 5/5 throughout Psych Appearance: appropriate Attitude: calm Debridement Note Debridement Note Post-Debridement Measurements and Additional Note: Post-Debridement Measurements/Treatment - Nurse 1 - General Ulcer Assessment Start: 09/19/20 09:55 Freq: Status: Active Protocol: WC.LOWEXT Activity Type Activity Date Activity User E-Sign Co-Sign Detail Recorded Client Recorded Date Recorded By Document 09/19/20 09:55 DL [id number] 09/19/20 10:07 DL Document 09/26/20 10:04 DL [id number] 09/26/20 10:08 DL Document 10/03/20 10:19 DL [id number] 10/03/20 10:22 DL Document 10/05/20 11:52 DL [id number] 10/05/20 12:13 DL Document 10/10/20 09:52 DL [id number] 10/10/20 10:03 DL 09/19/20 09/26/20 10/03/20 09:55 10:04 10:19 - Today's Visit Information Type of service Follow-up Visit Follow-up Visit Follow-up Visit (Physician/QUALITY ASSURANCE ASSISTANT (Physician/QUALITY ASSURANCE ASSISTANT (Physician/QUALITY ASSURANCE ASSISTANT ) ) ) Arrival Mode Ambulatory, Ambulatory, Ambulatory, Walker Walker Walker Transfer Assistance None None Transfer Board Patient Identification Verified (Name & Yes Yes ) Patient Requires Transmission-Based No No No Precautions Finger Stick Blood Sugar(mg/dl) (if 147 126 indicated): Blood Sugar Stated by Stated by Patient Patient Height and Weight Body Mass Index (BMI) 33.7 33.7 33.7 BMI Classification Obese Obese Obese Vital Signs Temperature (97.8 F-99.1 F) 97.3 F L 98.7 F 98.9 F Temperature Source Temporal Temporal Temporal Pulse Rate (60-100) 70 72 69 Pulse Location Monitor Apical Monitor Respiratory Rate (12-18) 22 H 20 H 18 Respiratory rate source Observation Observation Observation Blood Pressure (90/60-120/80) 132/65 H 125/75 H 145/55 H Blood Pressure Mean (mm Hg) 87 91 85 Source Monitor Monitor Monitor History Since Last Visit- (Skip if this is Patient's initial visit) Have you changed medications since your No No No last visit? Any new allergies or adverse reactions No No No Had a fall/change in ADL's that may No No increase risk of falls Signs or symptoms of abuse and/or No No No neglect since last visit Have you been in the hospital since your No No last visit? Has dressing in place as prescribed Yes Yes Yes Has compression in place as prescribed Yes No Yes Has offloadiing in place as prescribed Yes Yes Yes Experienced any changes in pain level or No No No management Left Footwear Surgical Shoe Surgical Shoe Surgical Shoe with pressure with pressure with pressure relief insole relief insole relief insole Right Footwear Pain Scale: 0-10 Numeric Is Patient Pain Free? Yes Yes Yes 10/05/20 10/10/20 11:52 09:52 WC - Today's Visit Information Type of service Nurse-only Follow-up Visit Visit (Physician/QUALITY ASSURANCE ASSISTANT ) Arrival Mode Ambulatory, Ambulatory, Walker Walker Transfer Assistance None None Patient Identification Verified (Name & Yes Yes ) Patient Requires Transmission-Based No No Precautions Finger Stick Blood Sugar(mg/dl) (if 126 114 indicated): Blood Sugar Stated by Stated by Patient Patient Height and Weight Body Mass Index (BMI) 33.7 33.7 BMI Classification Obese Obese Vital Signs Temperature (97.8 F-99.1 F) 98.1 F 98.1 F Temperature Source Temporal Temporal Pulse Rate (60-100) 67 64 Pulse Location Monitor Monitor Respiratory Rate (12-18) 18 20 H Respiratory rate source Observation Observation Blood Pressure (90/60-120/80) 132/70 H 155/62 H Blood Pressure Mean (mm Hg) 90 93 Source Monitor Monitor History Since Last Visit- (Skip if this is Patient's initial visit) Have you changed medications since your No No last visit? Any new allergies or adverse reactions No No Had a fall/change in ADL's that may No No increase risk of falls Signs or symptoms of abuse and/or No neglect since last visit Have you been in the hospital since your No last visit? Has dressing in place as prescribed Yes Yes Has compression in place as prescribed No Yes Has offloadiing in place as prescribed No Yes Experienced any changes in pain level or No No management Left Footwear Surgical Shoe Surgical Shoe with pressure with pressure relief insole relief insole Right Footwear Slipper Regular Shoe Pain Scale: 0-10 Numeric Is Patient Pain Free? Yes Yes WC - Nurse 1 - General Ulcer Measurement Start: 09/19/20 09:55 Freq: Status: Active Protocol: Activity Type Activity Date Activity User E-Sign Co-Sign Detail Recorded Client Recorded Date Recorded By Document 09/19/20 09:55 DL [id number] 09/19/20 10:07 DL Document 09/26/20 10:04 DL [id number] 09/26/20 10:08 DL Document 10/03/20 10:19 DL [id number] 10/03/20 10:22 DL Document 10/05/20 11:52 DL [id number] 10/05/20 12:13 DL Document 10/10/20 09:52 DL [id number] 10/10/20 10:03 DL 09/19/20 09/26/20 10/03/20 09:55 10:04 10:19 Wound Center Nurse 1 3- right 4th toe -Exudate Amt Medium -Necrotic Tissue Type Adherent Slough -Texture (Margaret-wound Skin Appearance) Scarring -Moisture (Margaret-wound Skin Appearance) Maceration -Color (Margaret-wound Skin Appearance) Hemosiderin Staining -Foul Odor after Cleansing No #1 left heel CLUSTER -Current Size (cm) - Length 1.8 1.7 1.4 -Current Size (cm) - Width 1.4 1.7 1.4 -Current Size (cm) - Depth 0.6 0.7 0.4 -Total Square Cm 2.52 2.89 1.96 -Photo Taken No No No -Undermining/Tunneling Starts (O'clock 7 4 ) -Undermining/Tunneling Ends (O'clock) 11 8 -Maximum Distance (cm) 0.2 0.2 -Maximum Distance #2 (cm) 0.5 -Exudate Amt Medium Small Medium -Exudate Type Serosanguineous Serosanguineous -Wound Margin Thickened Thickened Thickened -Granulation Amt None Present (0 None Present (0 Medium (34-66%) %) %) -Granulation Quality [place] -Necrosis Amt Large (67-100%) Large (67-100%) Medium (34-66%) -Necrotic Tissue Type Adherent Slough Adherent Slough Adherent Slough -Structure Exposed N/A N/A N/A -Texture (Margaret-wound Skin Appearance) Scarring Callus Scarring -Moisture (Margaret-wound Skin Appearance) Maceration,Dry/ Dry/Scaly No Abnormality Scaly -Color (Margaret-wound Skin Appearance) Hemosiderin Hemosiderin Hemosiderin Staining Staining Staining -Temperature (Margaret-wound Skin No Abnormality No Abnormality No Abnormality Appearance) (Pt Warm) (Pt Warm) (Pt Warm) -Tenderness on Palpation (Margaret-wound No Yes No Skin Appearance) -Ulcer Cleansing Wound Cleanser Wound Cleanser Wound Cleanser -Foul Odor after Cleansing No No No -Anesthetic Used 4% Lidocaine 4% Lidocaine 5% Lidocaine Solution Solution,5% Gel Lidocaine Gel Right Calf (cm) 43.8 Right Ankle (cm) 24.8 Left Calf (cm) 42 45.2 44.5 Left Ankle (cm) 25 26.5 25.5 10/05/20 10/10/20 11:52 09:52 Wound Center Nurse 1 3- right 4th toe -Exudate Amt -Necrotic Tissue Type -Texture (Margaret-wound Skin Appearance) -Moisture (Margaret-wound Skin Appearance) -Color (Margaret-wound Skin Appearance) -Foul Odor after Cleansing #1 left heel CLUSTER -Current Size (cm) - Length 1.7 -Current Size (cm) - Width 1.5 -Current Size (cm) - Depth 0.6 -Total Square Cm 2.55 -Photo Taken No No -Undermining/Tunneling Starts (O'clock ) -Undermining/Tunneling Ends (O'clock) -Maximum Distance (cm) -Maximum Distance #2 (cm) -Exudate Amt Small Medium -Exudate Type Serosanguineous Serosanguineous -Wound Margin Distinct, Outline Attached -Granulation Amt Medium (34-66%) -Granulation Quality Red -Necrosis Amt Small (1-33%) -Necrotic Tissue Type Eschar -Structure Exposed N/A -Texture (Margaret-wound Skin Appearance) Scarring -Moisture (Margaret-wound Skin Appearance) Dry/Scaly Dry/Scaly -Color (Margaret-wound Skin Appearance) Hemosiderin Assessed Staining -Temperature (Margaret-wound Skin No Abnormality No Abnormality Appearance) (Pt Warm) (Pt Warm) -Tenderness on Palpation (Margaret-wound No No Skin Appearance) -Ulcer Cleansing Soap and water/ Wound Cleanser leg only -Foul Odor after Cleansing No -Anesthetic Used 4% Lidocaine Solution Right Calf (cm) Right Ankle (cm) Left Calf (cm) 43 42.3 Left Ankle (cm) 25.5 25.5 WC - Nurse 2 - General Ulcer CM Notes Start: 09/19/20 09:55 Freq: Status: Active Protocol: Activity Type Activity Date Activity User E-Sign Co-Sign Detail Recorded Client Recorded Date Recorded By Document 09/19/20 10:15 [id number] 09/19/20 10:28 Document 09/26/20 10:39 [id number] 09/26/20 10:42 Edit Result 09/26/20 10:39 (1) [id number] 09/26/20 10:44 Document 10/03/20 10:48 [id number] 10/03/20 10:56 Document 10/10/20 10:32 [id number] 10/10/20 10:38 (1) #1 left heel CLUSTER - Post Debridement (cm) - Length 2 => 1.8 - Total Square (Post) (cm) 2.8 => 2.52 - Area of Debridement (cm) - Length 2 => 1.8 - Total Square (Area) (cm) 2.8 => 2.52 09/19/20 09/26/20 10/03/20 10:15 10:39 10:48 Wound Center Nurse 2 #1 left heel CLUSTER -Time 10:16 10:39 10:48 -Correct Patient Yes Yes Yes -Correct Side, Site, Position Yes Yes Yes -Correct Procedure Yes Yes Yes -Procedure Performed Yes Yes Yes -Type of Procedure Debridement Debridement Debridement -Clinical Debridement Subcutaneous Subcutaneous Subcutaneous -Tissue Removed Subcutaneous Subcutaneous Subcutaneous -Post Debridement (cm) - Length 1.7 1.8 1.8 -Post Debridement (cm) - Width 1.5 1.4 1.5 -Post Debridement (cm) - Depth 0.5 0.3 0.3 -Total Square (Post) (cm) 2.55 2.52 2.70 -Area of Debridement (cm) - Length 1.7 1.8 1.8 -Area of Debridement (cm) - Width 1.5 1.4 1.5 -Total Square (Area) (cm) 2.55 2.52 2.70 -Tunneling No No No -Undermining/Tunneling No No No -Circular Undermining No No No -Wound/Ulcer Outcome Not Healed Not Healed Not Healed -Ulcer Cleansing Rinsed/ Rinsed/ Rinsed/ Irrigated with Irrigated with Irrigated with Saline Saline Saline -Foul Odor after Cleansing No No No -Bioengineered Tissue Yes Yes Yes -Type of Bioengineered Tissue Epifix Epifix Epifix -Expiration Date 05/19/25 06/19/25 06/19/25 -Product Lot Number [id number] -Percent Used 100 100 100 -Lot number of Saline Used [id number] -Bleeding Controlled with Pressure NA Pressure -Offloading Yes Yes Yes -Type of Offloading Surgical Shoe Surgical Shoe Surgical Shoe -Treatment Response Procedure Procedure Procedure Tolerated Well Tolerated Well Tolerated Well -Debridement - Subq, 1st 20sq cm No No No -Apply Skin Sub - 1st 25 sq cm - Feet 1 1 1 -Epifix (per sq cm) 4 4 4 Pain Scale: 0-10 Numeric Is Patient Pain Free? Yes Yes Yes 10/10/20 10:32 Wound Center Nurse 2 #1 left heel CLUSTER -Time 10:33 -Correct Patient Yes -Correct Side, Site, Position Yes -Correct Procedure Yes -Procedure Performed Yes -Type of Procedure Debridement -Clinical Debridement Subcutaneous -Tissue Removed Subcutaneous -Post Debridement (cm) - Length 1.6 -Post Debridement (cm) - Width 1.6 -Post Debridement (cm) - Depth 0.5 -Total Square (Post) (cm) 2.56 -Area of Debridement (cm) - Length 1.6 -Area of Debridement (cm) - Width 1.6 -Total Square (Area) (cm) 2.56 -Tunneling No -Undermining/Tunneling No -Circular Undermining No -Wound/Ulcer Outcome Not Healed -Ulcer Cleansing Rinsed/ Irrigated with Saline -Foul Odor after Cleansing No -Bioengineered Tissue Yes -Type of Bioengineered Tissue Epifix -Expiration Date 06/19/25 -Product Lot Number [id number] -Percent Used 100 -Lot number of Saline Used [id number] -Bleeding Controlled with Pressure -Offloading Yes -Type of Offloading Total Contact Cast (TCC) - Left ($) -Treatment Response Procedure Tolerated Well -Debridement - Subq, 1st 20sq cm No -Apply Skin Sub - 1st 25 sq cm - Feet 1 -Epifix (per sq cm) 4 Pain Scale: 0-10 Numeric Is Patient Pain Free? Yes WC - Nurse 3 - General Ulcer D/C NN Start: 09/19/20 09:55 Freq: Status: Active Protocol: Activity Type Activity Date Activity User E-Sign Co-Sign Detail Recorded Client Recorded Date Recorded By Document 09/19/20 10:53 MW [id number] 09/19/20 10:54 MW Document 09/26/20 11:06 BMF [id number] 09/26/20 11:08 BMF Document 10/03/20 10:30 PL [id number] 10/04/20 18:58 PL Document 10/05/20 11:52 DL [id number] 10/05/20 12:13 DL Edit Result 10/05/20 11:52 DL (1) [id number] 10/06/20 15:36 PL Document 10/10/20 11:06 BMF [id number] 10/10/20 11:06 BMF (1) Left - Multi-Layered Wrap Application Multi-Layer Comp - => Unna Boot - Left ( Left ($) => $) 09/19/20 09/26/20 10/03/20 10:53 11:06 10:30 Wound Care Nurse 3 #1 left heel CLUSTER -Ulcer Cleansing Not Cleansed -Foul Odor after Cleansing No -Negative Pressure Wound Therapy N/A -Other Dressing epifix -Primary Dressing Covered/Secured with Dry Gauze & Dry Gauze & Roll Gauze, Roll Gauze, Secured with Secured with Tape Tape,Other -Other Covering abd pad heel hat Right -Lotion applied to leg before Yes compression wrap -Compression Wrap Kevin Wrap -Tubular Bandage -Size of Tubigrip Used Size F -Size E ($) -Size F ($) 1 Left -Lotion applied to leg before Yes compression wrap -Multi-Layered Wrap Application Multi-Layer Multi-Layer Comp - Left ($) Comp - Left ($) -Compression Wrap Kevin Wrap -Size of Tubigrip Used Size F -Size F ($) 1 -Other Treatment Response Procedure Procedure Tolerated Well Tolerated Well Vital Signs Temperature (97.8 F-99.1 F) Temperature Source Pulse Rate (60-100) Pulse Location Respiratory Rate (12-18) Respiratory rate source Blood Pressure (90/60-120/80) Blood Pressure Mean (mm Hg) Source Pain Scale: 0-10 Numeric Is Patient Pain Free? Yes Yes Teaching: Wound Center Dressing Your Wound -Person Taught Patient -Teaching Method Discussion, Demonstration -Response to teaching Verbalize understanding WC - Visit Discharge Discharge Condition Stable Stable Ambulatory Status Ambulatory, Ambulatory, Walker Walker Transportation Private Auto Accompanied by self Medication Reconcilliation completed & No provided to patient/care provider Clinical Summary of Care Provided Yes Notes: Facility Type 10/05/20 10/10/20 11:52 11:06 Wound Care Nurse 3 #1 left heel CLUSTER -Ulcer Cleansing Soap and water/ leg only -Foul Odor after Cleansing No -Negative Pressure Wound Therapy -Other Dressing epifix epifix -Primary Dressing Covered/Secured with Dry Gauze & Other Roll Gauze, Secured with Tape -Other Covering tcc undercast Right -Lotion applied to leg before compression wrap -Compression Wrap Kevin Wrap -Tubular Bandage Single Layer -Size of Tubigrip Used Size E -Size E ($) 1 -Size F ($) Left -Lotion applied to leg before compression wrap -Multi-Layered Wrap Application Unna Boot - Left ($) -Compression Wrap -Size of Tubigrip Used -Size F ($) -Other tcc undercast Treatment Response Procedure Procedure Tolerated Well Tolerated Well Vital Signs Temperature (97.8 F-99.1 F) 98.1 F Temperature Source Temporal Pulse Rate (60-100) 67 Pulse Location Monitor Respiratory Rate (12-18) 18 Respiratory rate source Observation Blood Pressure (90/60-120/80) 132/70 H Blood Pressure Mean (mm Hg) 90 Source Monitor Pain Scale: 0-10 Numeric Is Patient Pain Free? Yes Yes Teaching: Wound Center Dressing Your Wound -Person Taught -Teaching Method -Response to teaching WC - Visit Discharge Discharge Condition Stable Stable Ambulatory Status Walker Ambulatory, Walker Transportation Private Auto Private Auto Accompanied by Medication Reconcilliation completed & provided to patient/care provider Clinical Summary of Care Provided Notes: Pt arrive for [place]. Coban to 3M removed and replaced with kevin, stated it was to tight, removed last Friday evening , also took a shower and got dressing wet allittle. 3M replaced per order, pt stated would elevate LLE more this time before removing coban. to f/u on friday and will call friday if removes coban again. Also reminded not to get dressing wet. Facility Type [facility] Wound debrided: Heel Laterality: Left Wound Grade/Stage: Acevedo 1 Type of Debridement: Excisional debridement Anesthesia Used: 4% Lidocaine Solution Depth: in the subcutaneous layer Percentage of wound debrided: 100 Instrument Used: 3mm curette Tissue Removed: includes fibrous, devitalized, biofilm, callus and slough tissue Severity: Fat Layer Exposed Amount of bleeding with debridement: Mild Bleeding Controlled with: Pressure Patient tolerated procedure: Patient tolerated procedure well Assessment/Plan Assessment/Plan (1) Non-pressure chronic ulcer of left heel and midfoot with fat layer exposed: CODE(S): L97.422 - Non-pressure chronic ulcer of left heel and midfoot with fat layer exposed (2) Left foot pain: CODE(S): M79.672 - Pain in left foot (3) Corns and callosities: CODE(S): L84 - Corns and callosities (4) Type 2 diabetes mellitus with diabetic polyneuropathy: CODE(S): E11.42 - Type 2 diabetes mellitus with diabetic polyneuropathy QUALIFIERS: Diabetes mellitus manager intermediate insulin use: with manager intermediate use Qualified Code(s): E11.42 - Type 2 diabetes mellitus with diabetic polyneuropathy; Z79.4 - terminal press operator (current) use of insulin (5) Tobacco abuse: CODE(S): Z72.0 - Tobacco use (6) Obesity: CODE(S): E66.9 - Obesity, unspecified QUALIFIERS: Body mass index: BMI 33.0-33.9 Obesity classification: adult class 1 (BMI 30 - 34.9) Obesity type: due to excess calories Serious obesity comorbidity presence: with serious comorbidity Qualified Code(s): E66.09 - Other obesity due to excess calories; Z68.33 - Body mass index [BMI] 33.0-33.9, adult (7) Pain in right foot: CODE(S): M79.671 - Pain in right foot (8) Bilateral edema of lower extremity: CODE(S): R60.0 - Localized edema PLAN: Patient seen and examined. Patient wound was noted to be stable. There is no real change in wound appearance. Edema is moderately better controlled given that there is less cut off noted but is still swollen. Ulcerations were sharply debrided after verbal consent was obtained from the patient. Was done without incident. Continued debridement of surrounding callus tissue provided. Discussed importance of cleaning and maintaining foot both to prevent infection as well as to prevent future wounds. Discussed he is at higher risk for wounds due to his neuropathy, hyperglycemia, obesity, swelling, and tabacco abuse. Discussed importance of smoking cessation, blood sugar control, weight management, offloading, proper nutrition, and hygiene to optimize healing potential. Arterial and venous studies were reviewed. Showing likely adequate perfusion for healing. Patient relates he has been smoking since he was 10 years old. Discussed impact smoking has on his vessels as well as impact on wound healing. Discussed at length that he is not making progress most likely due to the pressure is putting on the ulceration site. Discussed that there is more aggressive offloading options available to him including the total contact cast. Patient is amendable to trying a total contact cast again this week. Patient was approved for epi fix graft. I recommend application of advanced wound healing product to the indicated ulceration. Prior authorization was confirmed. The indications, benefits, anticipated application and healing time management were reviewed in detail. Verbal consent was obtained in the procedure for today. Site was debrided and graft was applied according to standard protocol and was further secured with a nonadherent dressing and Steri-Strips. Patient provided verbal consent for a total contact cast. This was applied in a well padded neutral position according standard protocol. The patient tolerated this well. Patient was also advised to keep this clean, dry, and intact until follow-up next week. We will proceed with palliative care, as well as monitoring. Foot care and footgear has been discussed[place] [id number] bilateral toenails, with a nail nipper and both length and thickness by angling nail nippers. This was done without incident. All questions answered. Patient to follow up in 1 week. This note was generated with [employer] software. It may contain incorrect words, spelling, and punctuation that were not noted in checking the note before signing.
== END 2020-10-16 23:59 ==
LOC: WC 09:45
PROVIDERS: Referring Provider Podiatrist Foot & Ankle Surgery; Visit Provider Podiatrist Foot & Ankle Surgery
DX: E11.621 Type 2 diabetes mellitus with foot ulcer (principal); L97.422 Non-pressure chronic ulcer of left heel and midfoot with fat layer exposed; M79.89 Other specified soft tissue disorders; E11.42 Type 2 diabetes mellitus with diabetic polyneuropathy; F17.200 Nicotine dependence, unspecified, uncomplicated; I11.0 Hypertensive heart disease with heart failure; I50.9 Heart failure, unspecified; E11.65 Type 2 diabetes mellitus with hyperglycemia; E66.09 Other obesity due to excess calories; Z68.33 Body mass index [BMI] 33.0-33.9, adult; Z79.4 Long term (current) use of insulin; L84 Corns and callosities
CPT/HCPCS: 15275; 29445; 29580; 29581; Q4186

== ENCOUNTER → 2020-10-10 11:54 | Outpatient (CLI) | payer MEDICARE, BC, SELFPAY ==
[2020-10-10 09:52] VITALS: BMI 33.7
--- NOTE | 2020-10-10 12:10 | RAD_ITS ---
STUDY: X-RAY CHEST REASON FOR EXAM: Male, 64 years old. COPD TECHNIQUE: PA and lateral views of the chest. COMPARISON: 08/28/2020 FINDINGS: The lungs are clear and expanded. There is no demonstrated pleural abnormality. Normal size heart. Normal mediastinum and cinthia. Normal visualized pulmonary arteries. Normal visualized aortic arch and descending thoracic aorta. Normal visualized thoracic spine. Normal visualized ribs, clavicles, and shoulders. There is no demonstrated abnormality of the visualized soft tissue structures of the upper abdomen. RAD/Chest PA and Lateral IMPRESSION: Normal x-ray examination of the chest. Electronically Signed: Carlos Luo MD at 9:11 EDT Tel , Service support ,
== END ==
DX: J18.9 Pneumonia, unspecified organism (principal); J44.9 Chronic obstructive pulmonary disease, unspecified; E11.621 Type 2 diabetes mellitus with foot ulcer; M79.89 Other specified soft tissue disorders; L84 Corns and callosities; I10 Essential (primary) hypertension; E66.09 Other obesity due to excess calories; L97.422 Non-pressure chronic ulcer of left heel and midfoot with fat layer exposed; M79.672 Pain in left foot; E11.42 Type 2 diabetes mellitus with diabetic polyneuropathy; F17.200 Nicotine dependence, unspecified, uncomplicated; Z68.33 Body mass index [BMI] 33.0-33.9, adult
CPT/HCPCS: 15275; 29445; 71046; Q4186

== ENCOUNTER 2020-11-14 09:45 | Outpatient (RCR) | payer MEDICARE, BC, SELFPAY ==
[2020-10-17 00:28] VITALS: BP 155/62; PULSE 64; RESP 20; TEMP 36.7
[2020-10-17 10:20] VITALS: BP 166/76; PULSE 62; RESP 18; TEMP 36.9; BMI 33.7
--- NOTE | 2020-10-17 12:20 | PN.PCM_ITS ---
History of Present Illness Date of Service: 10/17/20 Chief Complaint: left heel ulcer swelling calluses History of Wound: Patient presents for wound to left plantar foot. He is unsure how long it has been there as he can't see or reach his feet. He attributes this largely to his obesity. He relates that his daughter looked at his feet and saw the wound. He relates that his children live over an hour away and he lives alone. He relates some bloody drainage has been noted. He relates his daughter put a gauze over it secured with tape. Patient also complains of swelling to his legs, especially his left. He relates he has smoked since he was 10 years old. He is also diabetic with neuropathy and relates his last hemoglobin A1c was 9.6. He also has hypertension. Patient relates improvement in left heel pain when in total contact cast but that he feels unsteady and has fallen and does not wish to continue this Patient has also had recent admission to the hospital for hypoxemia and heart failure. Patient was noted to be discharged on oxygen therapy. Patient did not present to the clinic today on his oxygen. He relates that he is using 2 L while at home still. 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 Patient denies any new pedal complaints. Patient denies any nausea, fever, chills, chest pain, shortness of breath, cough, streaking, purulence, vomiting. Patient relates feeling cumbersome with a total contact cast but relates no falls Objective Data Objective Data Vital Signs: Vital Signs Temp Pulse Resp BP 98.4 F 62 18 166/76 H 10/17/20 10:20 10/17/20 10:20 10/17/20 10:20 10/17/20 10:20 Oxygen Delivery Method Room Air Body Mass Index (BMI) 33.7 Physical Exam Narrative Const alert and no apparent distress General Appearance: cooperative and comfortable Lymph Lymphatic: no lymphedema noted Resp normal respiratory effort Effort and Inspection: able to speak in complete sentences Extremity no calf tenderness, negative milo and draper sign lower extremity edema left worse than right General Extremity: tenderness to palpation of ulceration and posterior heel; Negative for clubbing or cyanosis or ecchymosis or erythema Vasc Peripheral Pulses: posterior tibial pulses present but diminished and dorsalis pedis pulses present but diminished, normal capillary refill, no acute ischemic skin changes noted, normal temperature Skin General Skin Exam: dry skin, decreased hair growth noted; Negative for ecchymosis, eschar, pallor, rashes Wound Narrative: ulcers noted to plantar left heel No malodor, erythema, purulence, probing to bone, streaking, fluctuation, crepitus, or other signs of infection. Skin is atrophic and hairless. Granular base. Surrounding diffuse callus noted to plantar heel left worse than right. Pain to palpation of left heel improved. No significant improvement noted to wound.down to the level of that. Less callus tissue noted periwound and to foot in general. Edema noted to left lower extremity. Can tell how high the total contact cast went from indentation Neuro Gait (Neuro): heel to toe Sensory Exam: extremities light-touch: decreased MSK Motor Exam: strength 5/5 throughout, ROM to foot and ankle joints within normal limits Psych Appearance: appropriate Attitude: calm Debridement Note Debridement Note Post-Debridement Measurements and Additional Note: Post-Debridement Measurements/Treatment - Nurse 1 - General Ulcer Assessment Start: 10/17/20 10:19 Freq: Status: Active Protocol: [email or web address] Activity Type Activity Date Activity User E-Sign Co-Sign Detail Recorded Client Recorded Date Recorded By Document 10/17/20 10:20 MW [id number] 10/17/20 10:38 MW 10/17/20 10:20 - Today's Visit Information Type of service Follow-up Visit (Physician/RETAIL ASSOCIATE MANAGER BILINGUAL ) Arrival Mode Ambulatory, Walker Transfer Assistance None Accompanied by SELF Patient Identification Verified (Name & Yes ) Patient Requires Transmission-Based No Precautions Safety Precautions Fall Prevention Finger Stick Blood Sugar(mg/dl) (if 121 indicated): Blood Sugar Stated by Patient Height and Weight Body Mass Index (BMI) 33.7 BMI Classification Obese Vital Signs Temperature (97.8 F-99.1 F) 98.4 F Temperature Source Temporal Pulse Rate (60-100) 62 Pulse Location Monitor Respiratory Rate (12-18) 18 Respiratory rate source Observation Oxygen Delivery Method Room Air Blood Pressure (90/60-120/80) 166/76 H Blood Pressure Mean (mm Hg) 106 Source Monitor Position Sitting Blood Pressure Location Left Arm History Since Last Visit- (Skip if this is Patient's initial visit) Have you changed medications since your No last visit? Any new allergies or adverse reactions No Had a fall/change in ADL's that may No increase risk of falls Signs or symptoms of abuse and/or No neglect since last visit Have you been in the hospital since your No last visit? Has dressing in place as prescribed Yes Has compression in place as prescribed Yes Has offloadiing in place as prescribed N/A Experienced any changes in pain level or No management Left Footwear Total Contact Cast Right Footwear Regular Shoe Pain Scale: 0-10 Numeric Is Patient Pain Free? Yes WC - Nurse 1 - General Ulcer Measurement Start: 10/17/20 10:19 Freq: Status: Active Protocol: Activity Type Activity Date Activity User E-Sign Co-Sign Detail Recorded Client Recorded Date Recorded By Document 10/17/20 10:20 MW [id number] 10/17/20 10:38 MW 10/17/20 10:20 Wound Center Nurse 1 #1 left heel CLUSTER -Combined with other wound No -Current Size (cm) - Length 1.8 -Current Size (cm) - Width 1.9 -Current Size (cm) - Depth 0.3 -Total Square Cm 3.42 -Photo Taken No -Epithelialization None Present -Tunneling No -Undermining/Tunneling No -Circular Undermining No -Exudate Amt Medium -Exudate Type Serosanguineous -Wound Margin Thickened -Granulation Amt Small (1-33%) -Granulation Quality [place] -Slough/Fibrin Yes -Necrosis Amt Medium (34-66%) -Necrotic Tissue Type Adherent Slough -Structure Exposed N/A -Texture (Margaret-wound Skin Appearance) Assessed, Localized Edema -Moisture (Margaret-wound Skin Appearance) Assessed, Maceration,Dry/ Scaly -Color (Margaret-wound Skin Appearance) Assessed, Hemosiderin Staining,Rubor -Temperature (Margaret-wound Skin No Abnormality Appearance) (Pt Warm) -Tenderness on Palpation (Margaret-wound Yes Skin Appearance) -Ulcer Cleansing SOAP AND WATER -Foul Odor after Cleansing No -Anesthetic Used 4% Lidocaine Solution Lower Limb Edema Present Yes Left Calf (cm) 47.5 Left Ankle (cm) 27.5 JANESSA - Nurse 2 - General Ulcer CM Notes Start: 10/17/20 10:19 Freq: Status: Active Protocol: Activity Type Activity Date Activity User E-Sign Co-Sign Detail Recorded Client Recorded Date Recorded By Document 10/17/20 10:50 JF [id number] 10/17/20 11:00 DANIEL 10/17/20 10:50 Wound Center Nurse 2 #1 left heel CLUSTER -Time 10:50 -Correct Patient Yes -Correct Side, Site, Position Yes -Correct Procedure Yes -Procedure Performed Yes -Type of Procedure Debridement -Clinical Debridement Subcutaneous -Tissue Removed Subcutaneous -Post Debridement (cm) - Length 1.6 -Post Debridement (cm) - Width 1.6 -Post Debridement (cm) - Depth 0.5 -Total Square (Post) (cm) 2.56 -Area of Debridement (cm) - Length 1.6 -Area of Debridement (cm) - Width 1.6 -Total Square (Area) (cm) 2.56 -Tunneling No -Undermining/Tunneling No -Circular Undermining No -Ulcer Cleansing Rinsed/ Irrigated with Saline -Foul Odor after Cleansing No -Bioengineered Tissue No -Type of Bioengineered Tissue Epifix -Expiration Date 06/19/25 -Product Lot Number [id number] -Percent Used 100 -Lot number of Saline Used [id number] -Bleeding Controlled with Pressure -Offloading Yes -Type of Offloading Total Contact Cast (TCC) - Left ($) -Treatment Response Procedure Tolerated Well -Debridement - Subq, 1st 20sq cm No -Apply Skin Sub - 1st 25 sq cm - Feet 1 -Epifix (per sq cm) 4 Pain Scale: 0-10 Numeric Is Patient Pain Free? Yes - Nurse 3 - General Ulcer D/C NN Start: 10/17/20 10:19 Freq: Status: Active Protocol: Activity Type Activity Date Activity User E-Sign Co-Sign Detail Recorded Client Recorded Date Recorded By Document 10/17/20 11:13 DANIEL [id number] 10/17/20 11:14 DANIEL 10/17/20 11:13 Wound Care Nurse 3 #1 left heel CLUSTER -Primary Dressing Applied Mepilex Border -Mepilex Border 1 Pain Scale: 0-10 Numeric Is Patient Pain Free? Yes - Visit Discharge Discharge Condition Stable Ambulatory Status Ambulatory Transportation Private Auto Medication Reconcilliation completed & Yes provided to patient/care provider Clinical Summary of Care Provided Yes Wound debrided: Heel Laterality: Left Wound Grade/Stage: Acevedo 1 Type of Debridement: Excisional debridement Anesthesia Used: 4% Lidocaine Solution Depth: in the subcutaneous layer Percentage of wound debrided: 100 Instrument Used: 3mm curette Tissue Removed: includes fibrous, devitalized, biofilm, callus and slough tissue Severity: Fat Layer Exposed Amount of bleeding with debridement: Mild Bleeding Controlled with: Pressure Patient tolerated procedure: Patient tolerated procedure well Assessment/Plan Assessment/Plan (1) Non-pressure chronic ulcer of left heel and midfoot with fat layer exposed: CODE(S): L97.422 - Non-pressure chronic ulcer of left heel and midfoot with fat layer exposed (2) Bilateral edema of lower extremity: CODE(S): R60.0 - Localized edema (3) Left foot pain: CODE(S): M79.672 - Pain in left foot (4) Corns and callosities: CODE(S): L84 - Corns and callosities (5) Type 2 diabetes mellitus with diabetic polyneuropathy: CODE(S): E11.42 - Type 2 diabetes mellitus with diabetic polyneuropathy QUALIFIERS: Diabetes mellitus assisted insulin use: with assisted use Qualified Code(s): E11.42 - Type 2 diabetes mellitus with diabetic polyneuropathy; Z79.4 - skilled nursing (current) use of insulin (6) Tobacco abuse: CODE(S): Z72.0 - Tobacco use (7) Obesity: CODE(S): E66.9 - Obesity, unspecified QUALIFIERS: Obesity type: due to excess calories Obesity classification: adult class 1 (BMI 30 - 34.9) Serious obesity comorbidity presence: with serious comorbidity Body mass index: BMI 33.0-33.9 Qualified Code(s): E66.09 - Other obesity due to excess calories; Z68.33 - Body mass index [BMI] 33.0-33.9, adult PLAN: Patient seen and examined. Patient wound was noted to be stable. There is no real change in wound appearance. Edema is moderately better controlled given that there is less cut off noted but is still swollen. Ulcerations were sharply debrided after verbal consent was obtained from the patient. Was done without incident. Continued debridement of surrounding callus tissue provided. Discussed importance of cleaning and maintaining foot both to prevent infection as well as to prevent future wounds. Discussed he is at higher risk for wounds due to his diabetes, neuropathy, hyperglycemia, obesity, swelling, and tabacco abuse. Discussed importance of smoking cessation, blood sugar control, weight management, offloading, proper nutrition, and hygiene to optimize healing potential. Arterial and venous studies were reviewed. Showing likely adequate perfusion for healing. Patient relates he has been smoking since he was 10 years old. Discussed impact smoking has on his vessels as well as impact on wound healing. Patient relates that he is unwilling to quit entirely but he will try to cut back. He does not want any medical assistance at this process Discussed at length that he is not making progress most likely due to the pressure is putting on the ulceration site. Discussed that there is more aggressive offloading options available to him including the total contact cast. Patient is amendable to trying a total contact cast again this week. Patient was approved for epi fix graft. I recommend application of advanced wound healing product to the indicated ulceration. Prior authorization was confirmed. The indications, benefits, anticipated application and healing time management were reviewed in detail. Verbal consent was obtained in the procedure for today. Site was debrided and graft was applied according to standard protocol and was further secured with a nonadherent dressing and Steri- Strips. Patient provided verbal consent for a total contact cast. This was applied in a well padded neutral position according standard protocol. The patient tolerated this well. Patient was also advised to keep this clean, dry, and intact until follow-up next week. All questions answered. Patient to follow up in 1 week. This note was generated with [employer] dictation software. It may contain incorrect words, spelling, and punctuation that were not noted in checking the note before signing.
[2020-10-24 09:30] VITALS: BP 154/67; PULSE 64; RESP 18; TEMP 36.4; BMI 33.7
[2020-10-24 13:36] LABS: M R Staph aureus DNA By PCR Negative (Negative); Probe Check PASS; Specimen Processing Control PASS; Staph aureus DNA By PCR NEGATIVE (Negative)
--- NOTE | 2020-10-25 13:38 | PN.PCM_ITS ---
History of Present Illness Date of Service: 10/24/20 Chief Complaint: left heel ulcer swelling calluses History of Wound: Patient presents for wound to left plantar foot. He is unsure how long it has been there as he can't see or reach his feet. He attributes this largely to his obesity. He relates that his daughter looked at his feet and saw the wound. He relates that his children live over an hour away and he lives alone. He relates some bloody drainage has been noted. He relates his daughter put a gauze over it secured with tape. Patient also complains of swelling to his legs, especially his left. He relates he has smoked since he was 10 years old. He is also diabetic with neuropathy and relates his last hemoglobin A1c was 9.6. He also has hypertension. Patient relates improvement in left heel pain when in total contact cast but that he feels unsteady and has fallen and does not wish to continue this Patient has also had recent admission to the hospital for hypoxemia and heart failure. Patient was noted to be discharged on oxygen therapy. Patient did not present to the clinic today on his oxygen. He relates that he is using 2 L while at home still. He relates no significant change after appointment with account retention representative Progress of Wound: Surrounding maceration noted with increased drainage. Wound is noted to be larger Subjective Subjective Patient seen and examined resting comfortably. Patient denies any new pedal complaints. Patient denies any nausea, fever, chills, chest pain, shortness of breath, cough, streaking, purulence, vomiting. Patient reports no falls during this past week with the total contact cast Objective Data Objective Data Vital Signs: Vital Signs Temp Pulse Resp BP 97.6 F L 64 18 154/67 H 10/24/20 09:30 10/24/20 09:30 10/24/20 09:30 10/24/20 09:30 Oxygen Delivery Method Room Air Body Mass Index (BMI) 33.7 Lab / Micro Data Micro: Microbiology 10/24/20 10:00 Ulcer, Decubitus - Left Foot Gram Stain - Final 10/24/20 10:00 Ulcer, Decubitus - Left Foot Wound Culture - Preliminary Gram negative baljit Physical Exam Narrative Const alert and no apparent distress General Appearance: cooperative and comfortable Lymph Lymphatic: no lymphedema noted Resp normal respiratory effort Effort and Inspection: able to speak in complete sentences Extremity no calf tenderness, negative milo and draper sign lower extremity edema left worse than right General Extremity: tenderness to palpation of ulceration and posterior heel; Negative for clubbing or cyanosis or ecchymosis or erythema Vasc Peripheral Pulses: posterior tibial pulses present but diminished and dorsalis pedis pulses present but diminished, normal capillary refill, no acute ischemic skin changes noted, normal temperature Skin General Skin Exam: dry skin, decreased hair growth noted; Negative for ecchymosi s, eschar, pallor, rashes Wound Narrative: ulcer noted to plantar left heel No malodor, purulence, probing to bone, streaking, fluctuation, crepitus. There is noted to be increase in size and drainage and maceration periwound. There is concern for infection at this time. Skin is atrophic and hairless. Granular base. No significant buildup of callus noted periwound over the last week. Pain to palpation of left heel. Wound goes to level of fat. Edema noted to left lower extremity. Neuro Gait (Neuro): heel to toe Sensory Exam: extremities light-touch: decreased MSK Motor Exam: strength 5/5 throughout, ROM to foot and ankle joints within normal limits Psych Appearance: appropriate Attitude: calm Debridement Note Debridement Note Post-Debridement Measurements and Additional Note: Post-Debridement Measurements/Treatment - Nurse 1 - General Ulcer Assessment Start: 10/17/20 10:19 Freq: Status: Active Protocol: [email or web address] Activity Type Activity Date Activity User E-Sign Co-Sign Detail Recorded Client Recorded Date Recorded By Document 10/17/20 10:20 MW [id number] 10/17/20 10:38 MW Document 10/24/20 09:30 [facility] [id number] 10/24/20 09:45 BM 10/17/20 10/24/20 10:20 09:30 - Today's Visit Information Type of service Follow-up Visit Follow-up Visit (Physician/SENIOR BOILER OPERATOR (Physician/SENIOR BOILER OPERATOR ) ) Arrival Mode Ambulatory, Ambulatory Walker Transfer Assistance None None Accompanied by SELF Patient Identification Verified (Name & Yes Yes ) Patient Requires Transmission-Based No No Precautions Safety Precautions Fall Prevention Finger Stick Blood Sugar(mg/dl) (if 121 indicated): Blood Sugar Stated by Patient Height and Weight Body Mass Index (BMI) 33.7 33.7 BMI Classification Obese Obese Vital Signs Temperature (97.8 F-99.1 F) 98.4 F 97.6 F L Temperature Source Temporal Temporal Pulse Rate (60-100) 62 64 Pulse Location Monitor Monitor Respiratory Rate (12-18) 18 18 Respiratory rate source Observation Observation Oxygen Delivery Method Room Air Room Air Blood Pressure (90/60-120/80) 166/76 H 154/67 H Blood Pressure Mean (mm Hg) 106 96 Source Monitor Monitor Position Sitting Sitting Blood Pressure Location Left Arm Right Arm History Since Last Visit- (Skip if this is Patient's initial visit) Have you changed medications since your No No last visit? Any new allergies or adverse reactions No No Had a fall/change in ADL's that may No Yes increase risk of falls Signs or symptoms of abuse and/or No No neglect since last visit Have you been in the hospital since your No No last visit? Has dressing in place as prescribed Yes Yes Has compression in place as prescribed Yes N/A Has offloadiing in place as prescribed N/A Yes Experienced any changes in pain level or No No management Left Footwear Total Contact Total Contact Cast Cast Right Footwear Regular Shoe Regular Shoe Pain Scale: 0-10 Numeric Is Patient Pain Free? Yes Yes - Nurse 1 - General Ulcer Measurement Start: 10/17/20 10:19 Freq: Status: Active Protocol: Activity Type Activity Date Activity User E-Sign Co-Sign Detail Recorded Client Recorded Date Recorded By Document 10/17/20 10:20 MW [id number] 10/17/20 10:38 MW Document 10/24/20 09:30 BM [id number] 10/24/20 09:45 BM 10/17/20 10/24/20 10:20 09:30 Wound Center Nurse 1 #1 left heel CLUSTER -Combined with other wound No No -Current Size (cm) - Length 1.8 1.7 -Current Size (cm) - Width 1.9 1.8 -Current Size (cm) - Depth 0.3 0.6 -Total Square Cm 3.42 3.06 -Photo Taken No No -Epithelialization None Present None Present -Tunneling No No -Undermining/Tunneling No Yes -Undermining/Tunneling Starts (O'clock 8 ) -Undermining/Tunneling Ends (O'clock) 9 -Maximum Distance (cm) 0.5 -Circular Undermining No No -Exudate Amt Medium Large -Exudate Type Serosanguineous Serosanguineous -Wound Margin Thickened Thickened -Granulation Amt Small (1-33%) Large (67-100%) -Granulation Quality Seven Fields Pale,Seven Fields -Slough/Fibrin Yes Yes -Necrosis Amt Medium (34-66%) Small (1-33%) -Necrotic Tissue Type Adherent Slough Adherent Slough -Structure Exposed N/A -Texture (Margaret-wound Skin Appearance) Assessed, Assessed,Callus Localized Edema -Moisture (Margaret-wound Skin Appearance) Assessed, Assessed,Dry/ Maceration,Dry/ Scaly Scaly -Color (Margaret-wound Skin Appearance) Assessed, Assessed Hemosiderin Staining,Rubor -Temperature (Margaret-wound Skin No Abnormality No Abnormality Appearance) (Pt Warm) (Pt Warm) -Tenderness on Palpation (Margaret-wound Yes No Skin Appearance) -Ulcer Cleansing SOAP AND WATER soapy water -Foul Odor after Cleansing No No -Anesthetic Used 4% Lidocaine 5% Lidocaine Solution Gel Lower Limb Edema Present Yes Left Calf (cm) 47.5 Left Ankle (cm) 27.5 WC - Nurse 2 - General Ulcer CM Notes Start: 10/17/20 10:19 Freq: Status: Active Protocol: Activity Type Activity Date Activity User E-Sign Co-Sign Detail Recorded Client Recorded Date Recorded By Document 10/17/20 10:50 [id number] 10/17/20 11:00 Document 10/24/20 09:59 [id number] 10/24/20 10:02 10/17/20 10/24/20 10:50 09:59 Wound Center Nurse 2 #1 left heel CLUSTER -Time 10:50 10:00 -Correct Patient Yes Yes -Correct Side, Site, Position Yes Yes -Correct Procedure Yes Yes -Procedure Performed Yes Yes -Type of Procedure Debridement Debridement -Clinical Debridement Subcutaneous Subcutaneous -Tissue Removed Subcutaneous Subcutaneous -Post Debridement (cm) - Length 1.6 1.8 -Post Debridement (cm) - Width 1.6 1.6 -Post Debridement (cm) - Depth 0.5 0.6 -Total Square (Post) (cm) 2.56 2.88 -Area of Debridement (cm) - Length 1.6 1.8 -Area of Debridement (cm) - Width 1.6 1.6 -Total Square (Area) (cm) 2.56 2.88 -Tunneling No No -Undermining/Tunneling No No -Circular Undermining No No -Wound/Ulcer Outcome Not Healed -Ulcer Cleansing Rinsed/ Rinsed/ Irrigated with Irrigated with Saline Saline -Foul Odor after Cleansing No No -Bioengineered Tissue No No -Type of Bioengineered Tissue Epifix -Expiration Date 06/19/25 -Product Lot Number [id number] -Percent Used 100 -Lot number of Saline Used [id number] -Bleeding Controlled with Pressure Pressure -Offloading Yes Yes -Type of Offloading Total Contact Camwalker Cast (TCC) - Left ($) -Treatment Response Procedure Procedure Tolerated Well Tolerated Well -Debridement - Subq, 1st 20sq cm No Yes -Apply Skin Sub - 1st 25 sq cm - Feet 1 -Epifix (per sq cm) 4 Pain Scale: 0-10 Numeric Is Patient Pain Free? Yes - Nurse 3 - General Ulcer D/C NN Start: 10/17/20 10:19 Freq: Status: Active Protocol: Activity Type Activity Date Activity User E-Sign Co-Sign Detail Recorded Client Recorded Date Recorded By Document 10/17/20 11:13 [id number] 10/17/20 11:14 Document 10/24/20 10:07 [facility] [id number] 10/24/20 10:08 [facility] 10/17/20 10/24/20 11:13 10:07 Wound Care Nurse 3 #1 left heel CLUSTER -Ulcer Cleansing Rinsed/ Irrigated with Saline -Foul Odor after Cleansing No -Primary Dressing Applied Mepilex Border Silvercel,Other -Other Dressing heel hat -Primary Dressing Covered/Secured with Dry Gauze & Roll Gauze, Secured with Tape,Other -Other Covering drsg per mw rn -Mepilex Border 1 -Silvercel 1 Right -Compression Wrap Kevin Wrap Left -Compression Wrap Kevin Wrap Treatment Response Procedure Tolerated Well Pain Scale: 0-10 Numeric Is Patient Pain Free? Yes Yes - Visit Discharge Discharge Condition Stable Stable Ambulatory Status Ambulatory Ambulatory Transportation Private Auto Private Auto Medication Reconcilliation completed & Yes provided to patient/care provider Clinical Summary of Care Provided Yes Facility Type Home Health Wound debrided: Left plantar heel Laterality: Left Wound Grade/Stage: Acevedo 1 Type of Debridement: Excisional debridement Anesthesia Used: 4% Lidocaine Solution Depth: in the subcutaneous layer Percentage of wound debrided: 100 Instrument Used: 3mm curette Tissue Removed: includes fibrous, devitalized, biofilm, callus and slough tissue Severity: Fat Layer Exposed Amount of bleeding with debridement: Mild Bleeding Controlled with: Pressure Patient tolerated procedure: Patient tolerated procedure well Assessment/Plan Assessment/Plan (1) Non-pressure chronic ulcer of left heel and midfoot with fat layer exposed: CODE(S): L97.422 - Non-pressure chronic ulcer of left heel and midfoot with fat layer exposed (2) Bilateral edema of lower extremity: CODE(S): R60.0 - Localized edema (3) Left foot pain: CODE(S): M79.672 - Pain in left foot (4) Corns and callosities: CODE(S): L84 - Corns and callosities (5) Type 2 diabetes mellitus with diabetic polyneuropathy: CODE(S): E11.42 - Type 2 diabetes mellitus with diabetic polyneuropathy QUALIFIERS: Diabetes mellitus alf insulin use: with alf use Qualified Code(s): E11.42 - Type 2 diabetes mellitus with diabetic polyneuropathy; Z79.4 - emt intermediate (current) use of insulin (6) Tobacco abuse: CODE(S): Z72.0 - Tobacco use (7) Obesity: CODE(S): E66.9 - Obesity, unspecified QUALIFIERS: Obesity type: due to excess calories Obesity classification: adult class 1 (BMI 30 - 34.9) Serious obesity comorbidity presence: with serious comorbidity Body mass index: BMI 33.0-33.9 Qualified Code(s): E66.09 - Other obesity due to excess calories; Z68.33 - Body mass index [BMI] 33.0-33.9, adult (8) Cellulitis of left foot: CODE(S): L03.116 - Cellulitis of left lower limb PLAN: Patient seen and examined. Patient wound was noted to have worsened. The wound is larger in size and there is increased amount of drainage noted to the area. Ulcerations were sharply debrided after verbal consent was obtained from the patient. Was done without incident. Continued debridement of surrounding callus tissue provided. Discussed importance of cleaning and maintaining foot both to prevent infection as well as to prevent future wounds. Discussed he is at higher risk for wounds due to his diabetes, neuropathy, hyperglycemia, obesity, swelling, and tabacco abuse. Discussed importance of smoking cessation, blood sugar control, weight management, offloading, proper nutrition, and hygiene to optimize healing potential. Arterial and venous studies were reviewed. Showing likely adequate perfusion for healing. Patient relates he has been smoking since he was 10 years old. Discussed impact smoking has on his vessels as well as impact on wound healing. Patient relates that he is unwilling to quit entirely but he will try to cut back. He does not want any medical assistance at this process. Swab culture was obtained of the wound. Prescription for Augmentin was sent to the patient's pharmacy of choice. Patient was noted to have a creatinine clearance of 32.53 on 08/30/2020 with these findings no renal adjustment is needed for antibiotics. To continue silver alginate daily dressing changes. Will notify home health care if changes to dressing. To continue with compression therapy as well. All questions answered. Patient to follow up in 1 week. This note was generated with [employer] dictation software. It may contain incorrect words, spelling, and punctuation that were not noted in checking the note before signing. The problems addressed require a low medical decision making level which includes two or more minor problems, a stable chronic illness, or an acute uncomplicated illness or injury.
[2020-10-31 10:10] VITALS: BP 171/67; PULSE 64; RESP 18; TEMP 36.4; BMI 33.7
--- NOTE | 2020-10-31 11:28 | PCM.WC.PN ---
History of Present Illness Date of Service: 10/31/20 Chief Complaint: left heel ulcer swelling calluses History of Wound: Patient presents for wound to left plantar foot. He is unsure how long it has been there as he can't see or reach his feet. He attributes this largely to his obesity. He relates that his daughter looked at his feet and saw the wound. He relates that his children live over an hour away and he lives alone. He relates some bloody drainage has been noted. He relates his daughter put a gauze over it secured with tape. Patient also complains of swelling to his legs, especially his left. He relates he has smoked since he was 10 years old. He is also diabetic with neuropathy and relates his last hemoglobin A1c was 9.6. He also has hypertension. Patient relates improvement in left heel pain when in total contact cast but that he feels unsteady and has fallen and does not wish to continue this Patient has also had recent admission to the hospital for hypoxemia and heart failure. Patient was noted to be discharged on oxygen therapy. Patient did not present to the clinic today on his oxygen. He relates that he is using 2 L while at home still. He relates no significant change after appointment with stave planer tender Progress of Wound: Wound is stable Subjective Subjective Patient seen and examined resting comfortably. Patient denies any new pedal complaints. Patient denies any nausea, fever, chills, chest pain, shortness of breath, cough, streaking, purulence, vomiting. Patient relates pain at ulceration site Objective Data Objective Data Vital Signs: Vital Signs Temp Pulse Resp BP 97.5 F L 64 18 171/67 H 10/31/20 10:10 10/31/20 10:10 10/31/20 10:10 10/31/20 10:10 Oxygen Delivery Method Room Air Body Mass Index (BMI) 33.7 Lab / Micro Data Micro: Microbiology 10/24/20 10:00 Ulcer, Decubitus - Left Foot Gram Stain - Final 10/24/20 10:00 Ulcer, Decubitus - Left Foot Wound Culture - Final Proteus mirabilis Enterococcus avium Enterococcus faecalis 10/24/20 10:00 Ulcer, Decubitus - Left Foot Anaerobic Culture - Final No anaerobic bacteria isolated. Physical Exam Narrative Const alert and no apparent distress General Appearance: cooperative and comfortable Lymph Lymphatic: no lymphedema noted Resp normal respiratory effort Effort and Inspection: able to speak in complete sentences Extremity no calf tenderness, negative milo and draper sign lower extremity edema left worse than right General Extremity: tenderness to palpation of ulceration and posterior heel; Negative for clubbing or cyanosis or ecchymosis or erythema Vasc Peripheral Pulses: posterior tibial pulses present but diminished and dorsalis pedis pulses present but diminished, normal capillary refill, no acute ischemic skin changes noted, normal temperature Skin General Skin Exam: dry skin, decreased hair growth noted; Negative for ecchymosis, eschar, pallor, rashes Wound Narrative: ulcer noted to plantar left heel No malodor, purulence, probing to bone, streaking, fluctuation, crepitus, erythema or other signs of infection. No periwound maceration noted. Skin is atrophic and hairless. Granular base. No significant buildup of callus noted periwound over the last week. Pain to palpation of left heel. Wound goes to level of fat. Edema noted to left lower extremity. Diffuse calluses noted to plantar medial posterior and lateral heel Neuro Gait (Neuro): heel to toe Sensory Exam: extremities light-touch: decreased MSK Motor Exam: strength 5/5 throughout, ROM to foot and ankle joints within normal limits Psych Appearance: appropriate Attitude: calm Debridement Note Debridement Note Post-Debridement Measurements and Additional Note: Post-Debridement Measurements/Treatment - Nurse 1 - General Ulcer Assessment Start: 10/17/20 10:19 Freq: Status: Active Protocol: .LOWEXT Activity Type Activity Date Activity User E-Sign Co-Sign Detail Recorded Client Recorded Date Recorded By Document 10/17/20 10:20 [id number] 10/17/20 10:38 MW Document 10/24/20 09:30 [facility] [id number] 10/24/20 09:45 BM Document 10/31/20 10:10 [facility] [id number] 10/31/20 10:19 BM 10/17/20 10/24/20 10/31/20 10:20 09:30 10:10 - Today's Visit Information Type of service Follow-up Visit Follow-up Visit Follow-up Visit (Physician/VOICE AND DATA TECHNICIAN (Physician/VOICE AND DATA TECHNICIAN (Physician/VOICE AND DATA TECHNICIAN ) ) ) Arrival Mode Ambulatory, Ambulatory Ambulatory, Walker Walker Transfer Assistance None None None Accompanied by SELF Patient Identification Verified (Name & Yes Yes Yes ) Patient Requires Transmission-Based No No No Precautions Safety Precautions Fall Prevention Finger Stick Blood Sugar(mg/dl) (if 121 indicated): Blood Sugar Stated by Patient Height and Weight Body Mass Index (BMI) 33.7 33.7 33.7 BMI Classification Obese Obese Obese Vital Signs Temperature (97.8 F-99.1 F) 98.4 F 97.6 F L 97.5 F L Temperature Source Temporal Temporal Temporal Pulse Rate (60-100) 62 64 64 Pulse Location Monitor Monitor Monitor Respiratory Rate (12-18) 18 18 18 Respiratory rate source Observation Observation Observation Oxygen Delivery Method Room Air Room Air Room Air Blood Pressure (90/60-120/80) 166/76 H 154/67 H 171/67 H Blood Pressure Mean (mm Hg) 106 96 101 Source Monitor Monitor Monitor Position Sitting Sitting Sitting Blood Pressure Location Left Arm Right Arm Left Arm History Since Last Visit- (Skip if this is Patient's initial visit) Have you changed medications since your No No No last visit? Any new allergies or adverse reactions No No No Had a fall/change in ADL's that may No Yes No increase risk of falls Signs or symptoms of abuse and/or No No No neglect since last visit Have you been in the hospital since your No No No last visit? Has dressing in place as prescribed Yes Yes Yes Has compression in place as prescribed Yes N/A Yes Has offloadiing in place as prescribed N/A Yes Yes Experienced any changes in pain level or No No No management Left Footwear Total Contact Total Contact Surgical Shoe Cast Cast with pressure relief insole Right Footwear Regular Shoe Regular Shoe Regular Shoe Pain Scale: 0-10 Numeric Is Patient Pain Free? Yes Yes Yes WC - Nurse 1 - General Ulcer Measurement Start: 10/17/20 10:19 Freq: Status: Active Protocol: Activity Type Activity Date Activity User E-Sign Co-Sign Detail Recorded Client Recorded Date Recorded By Document 10/17/20 10:20 MW [id number] 10/17/20 10:38 MW Document 10/24/20 09:30 BMF [id number] 10/24/20 09:45 BMF Document 10/31/20 10:10 BM [id number] 10/31/20 10:19 BMF 10/17/20 10/24/20 10/31/20 10:20 09:30 10:10 Wound Center Nurse 1 #1 left heel CLUSTER -Combined with other wound No No No -Current Size (cm) - Length 1.8 1.7 1.6 -Current Size (cm) - Width 1.9 1.8 1.8 -Current Size (cm) - Depth 0.3 0.6 0.7 -Total Square Cm 3.42 3.06 2.88 -Photo Taken No No No -Epithelialization None Present None Present None Present -Tunneling No No No -Undermining/Tunneling No Yes Yes -Undermining/Tunneling Starts (O'clock 8 12 ) -Undermining/Tunneling Ends (O'clock) 9 12 -Maximum Distance (cm) 0.5 0.7 -Circular Undermining No No Yes -Exudate Amt Medium Large Medium -Exudate Type Serosanguineous Serosanguineous Serosanguineous -Wound Margin Thickened Thickened Thickened & Rolled Under -Granulation Amt Small (1-33%) Large (67-100%) Medium (34-66%) -Granulation Quality [place] Pale,[place] Red -Slough/Fibrin Yes Yes Yes -Necrosis Amt Medium (34-66%) Small (1-33%) Medium (34-66%) -Necrotic Tissue Type Adherent Slough Adherent Slough Adherent Slough -Structure Exposed N/A -Texture (Margaret-wound Skin Appearance) Assessed, Assessed,Callus Assessed,Callus Localized Edema ,Scarring -Moisture (Margaret-wound Skin Appearance) Assessed, Assessed,Dry/ Assessed, Maceration,Dry/ Scaly Maceration,Dry/ Scaly Scaly -Color (Margaret-wound Skin Appearance) Assessed, Assessed Assessed,Palor Hemosiderin Staining,Rubor -Temperature (Margaret-wound Skin No Abnormality No Abnormality No Abnormality Appearance) (Pt Warm) (Pt Warm) (Pt Warm) -Tenderness on Palpation (Margaret-wound Yes No No Skin Appearance) -Ulcer Cleansing SOAP AND WATER soapy water soapy water -Foul Odor after Cleansing No No No -Anesthetic Used 4% Lidocaine 5% Lidocaine 5% Lidocaine Solution Gel Gel Lower Limb Edema Present Yes Yes Left Calf (cm) 47.5 47.5 Left Ankle (cm) 27.5 27 WC - Nurse 2 - General Ulcer CM Notes Start: 10/17/20 10:19 Freq: Status: Active Protocol: Activity Type Activity Date Activity User E-Sign Co-Sign Detail Recorded Client Recorded Date Recorded By Document 10/17/20 10:50 [id number] 10/17/20 11:00 JF Document 10/24/20 09:59 JF [id number] 10/24/20 10:02 JF Document 10/31/20 10:30 MW [id number] 10/31/20 10:40 MW 10/17/20 10/24/20 10/31/20 10:50 09:59 10:30 Wound Center Nurse 2 #1 left heel CLUSTER -Time 10:50 10:00 10:31 -Correct Patient Yes Yes Yes -Correct Side, Site, Position Yes Yes Yes -Correct Procedure Yes Yes Yes -Procedure Performed Yes Yes Yes -Type of Procedure Debridement Debridement Debridement -Clinical Debridement Subcutaneous Subcutaneous Subcutaneous -Tissue Removed Subcutaneous Subcutaneous Subcutaneous -Post Debridement (cm) - Length 1.6 1.8 1.5 -Post Debridement (cm) - Width 1.6 1.6 1.8 -Post Debridement (cm) - Depth 0.5 0.6 0.4 -Total Square (Post) (cm) 2.56 2.88 2.70 -Area of Debridement (cm) - Length 1.6 1.8 1.5 -Area of Debridement (cm) - Width 1.6 1.6 1.8 -Total Square (Area) (cm) 2.56 2.88 2.70 -Tunneling No No No -Undermining/Tunneling No No No -Circular Undermining No No No -Wound/Ulcer Outcome Not Healed Not Healed -Ulcer Cleansing Rinsed/ Rinsed/ Rinsed/ Irrigated with Irrigated with Irrigated with Saline Saline Saline -Foul Odor after Cleansing No No No -Bioengineered Tissue No No Yes -Type of Bioengineered Tissue Epifix Epifix -Expiration Date 06/19/25 07/17/25 -Product Lot Number [id number] -Percent Used 100 100 -Lot number of Saline Used [id number] -Bleeding Controlled with Pressure Pressure Pressure -Offloading Yes Yes No -Type of Offloading Total Contact Camwalker Cast (TCC) - Left ($) -Treatment Response Procedure Procedure Procedure Tolerated Well Tolerated Well Tolerated Well -Debridement - Subq, 1st 20sq cm No Yes No -Apply Skin Sub - 1st 25 sq cm - Feet 1 1 -Epifix (per sq cm) 4 4 Pain Scale: 0-10 Numeric Is Patient Pain Free? Yes Yes - Nurse 3 - General Ulcer D/C NN Start: 10/17/20 10:19 Freq: Status: Active Protocol: Activity Type Activity Date Activity User E-Sign Co-Sign Detail Recorded Client Recorded Date Recorded By Document 10/17/20 11:13 [id number] 10/17/20 11:14 Document 10/24/20 10:07 [facility] [id number] 10/24/20 10:08 [facility] Document 10/31/20 10:54 [facility] [id number] 10/31/20 10:54 [facility] 10/17/20 10/24/20 10/31/20 11:13 10:07 10:54 Wound Care Nurse 3 #1 left heel CLUSTER -Ulcer Cleansing Rinsed/ Irrigated with Saline -Foul Odor after Cleansing No -Primary Dressing Applied Mepilex Border Silver[place],Other -Other Dressing heel hat epifix -Primary Dressing Covered/Secured with Dry Gauze & Dry Gauze & Roll Gauze, Roll Gauze, Secured with Secured with Tape,Other Tape,Other -Other Covering drsg per mw rn heel hat -Mepilex Border 1 -Silvercel 1 Right -Compression Wrap Kevin Wrap Kevin Wrap Left -Compression Wrap Kevin Wrap Kevin Wrap Treatment Response Procedure Procedure Tolerated Well Tolerated Well Pain Scale: 0-10 Numeric Is Patient Pain Free? Yes Yes Yes - Visit Discharge Discharge Condition Stable Stable Stable Ambulatory Status Ambulatory Ambulatory Ambulatory, Walker Transportation Private Auto Private Auto Private Auto Medication Reconcilliation completed & Yes provided to patient/care provider Clinical Summary of Care Provided Yes Facility Type Home Health Home Health Wound debrided: Plantar heel Laterality: Left Wound Grade/Stage: Acevedo 1 Type of Debridement: Excisional debridement Anesthesia Used: 4% Lidocaine Solution Depth: in the subcutaneous layer Percentage of wound debrided: 100 Instrument Used: 3mm curette Tissue Removed: includes fibrous, devitalized, biofilm, callus and slough tissue Severity: Fat Layer Exposed Amount of bleeding with debridement: Mild Bleeding Controlled with: Pressure Patient tolerated procedure: Patient tolerated procedure well Assessment/Plan Assessment/Plan (1) Non-pressure chronic ulcer of left heel and midfoot with fat layer exposed: CODE(S): L97.422 - Non-pressure chronic ulcer of left heel and midfoot with fat layer exposed (2) Bilateral edema of lower extremity: CODE(S): R60.0 - Localized edema (3) Left foot pain: CODE(S): M79.672 - Pain in left foot (4) Corns and callosities: CODE(S): L84 - Corns and callosities (5) Type 2 diabetes mellitus with diabetic polyneuropathy: CODE(S): E11.42 - Type 2 diabetes mellitus with diabetic polyneuropathy QUALIFIERS: Diabetes mellitus intermission coordinator insulin use: with fdc use Qualified Code(s): E11.42 - Type 2 diabetes mellitus with diabetic polyneuropathy; Z79.4 - skilled nursing (current) use of insulin (6) Tobacco abuse: CODE(S): Z72.0 - Tobacco use (7) Obesity: CODE(S): E66.9 - Obesity, unspecified QUALIFIERS: Obesity type: due to excess calories Obesity classification: adult class 1 (BMI 30 - 34.9) Serious obesity comorbidity presence: with serious comorbidity Body mass index: BMI 33.0-33.9 Qualified Code(s): E66.09 - Other obesity due to excess calories; Z68.33 - Body mass index [BMI] 33.0-33.9, adult (8) Cellulitis of left foot: CODE(S): L03.116 - Cellulitis of left lower limb PLAN: Patient seen and examined. Patient wound is slightly improved from last week. Patient relates he has had a lot of pain from the wound this with the past week. Patient relates he has tried icing and heat without much success. He also states that the swelling has gotten worse to his leg below his knee. Ulcerations were sharply debrided after verbal consent was obtained from the patient. Was done without incident. Continued debridement of surrounding callus tissue provided. Discussed importance of cleaning and maintaining foot both to prevent infection as well as to prevent future wounds. Discussed he is at higher risk for wounds due to his diabetes, neuropathy, hyperglycemia, obesity, swelling, and tabacco abuse. Discussed importance of smoking cessation, blood sugar control, weight management, offloading, proper nutrition, and hygiene to optimize healing potential. Surgical shoe was further modified to better offload the ulceration site. Patient is noted to be on 600 mg of gabapentin to control his neuropathy pain. This is managed by his PCP. Arterial and venous studies were reviewed. Showing likely adequate perfusion for healing. Patient relates he has been smoking since he was 10 years old. Discussed impact smoking has on his vessels as well as impact on wound healing. Patient relates that he is unwilling to quit entirely but he will try to cut back. He does not want any medical assistance at this process. Cultures obtained 10/24/2020 demonstrated rare Proteus Mirabella's, Enterococcus avium and Enterococcus for Cialis. Patient has finished course of antibiotics with resolution of infection symptoms We continued epi fix graft today. I recommend application of advanced wound healing product to the indicated ulceration. Prior authorization was confirmed. The indications, benefits, anticipated application and healing time management were reviewed in detail. Verbal consent was obtained in the procedure for today. Site was debrided and graft was applied according to standard protocol and was further secured with a nonadherent dressing and Steri-Strips. Patient instructed that they can change outer dressing but not to go beneath the Steri-Strips. To continue compression dressing over top of graft. All questions answered. Patient to follow up in 1 week. This note was generated with [employer] dictation software. It may contain incorrect words, spelling, and punctuation that were not noted in checking the note before signing.
[2020-11-07 09:49] VITALS: BP 156/75; PULSE 73; RESP 20; TEMP 36.2; BMI 33.7
--- NOTE | 2020-11-07 10:46 | PCM.WC.PN ---
History of Present Illness Date of Service: 11/07/20 Chief Complaint: left heel ulcer swelling calluses History of Wound: Patient presents for wound to left plantar foot. He is unsure how long it has been there as he can't see or reach his feet. He attributes this largely to his obesity. He relates that his daughter looked at his feet and saw the wound. He relates that his children live over an hour away and he lives alone. He relates some bloody drainage has been noted. He relates his daughter put a gauze over it secured with tape. Patient also complains of swelling to his legs, especially his left. He relates he has smoked since he was 10 years old. He is also diabetic with neuropathy and relates his last hemoglobin A1c was 9.6. He also has hypertension. Patient relates improvement in left heel pain when in total contact cast but that he feels unsteady and has fallen and does not wish to continue this Patient has also had recent admission to the hospital for hypoxemia and heart failure. Patient was noted to be discharged on oxygen therapy. Patient did not present to the clinic today on his oxygen. He relates that he is using 2 L while at home still. He relates no significant change after appointment with curriculum and instruction specialist Progress of Wound: Wound is stable no significant interval change Subjective Subjective Patient seen and examined resting comfortably. Patient denies any new pedal complaints. Patient denies any nausea, fever, chills, chest pain, shortness of breath, cough, streaking, purulence, vomiting. Patient reports pain to ulceration site with ambulation and pressure Objective Data Objective Data Vital Signs: Vital Signs Temp Pulse Resp BP 97.1 F L 73 20 H 156/75 H 11/07/20 09:49 11/07/20 09:49 11/07/20 09:49 11/07/20 09:49 Oxygen Delivery Method Room Air Body Mass Index (BMI) 33.7 Lab / Micro Data Micro: Microbiology 10/24/20 10:00 Ulcer, Decubitus - Left Foot Gram Stain - Final 10/24/20 10:00 Ulcer, Decubitus - Left Foot Wound Culture - Final Proteus mirabilis Enterococcus avium Enterococcus faecalis 10/24/20 10:00 Ulcer, Decubitus - Left Foot Anaerobic Culture - Final No anaerobic bacteria isolated. Physical Exam Narrative Const alert and no apparent distress General Appearance: cooperative and comfortable Resp normal respiratory effort Effort and Inspection: able to speak in complete sentences Extremity no calf tenderness, negative milo and draper sign lower extremity edema left worse than right General Extremity: tenderness to palpation of ulceration and posterior heel; Negative for clubbing or cyanosis or ecchymosis or erythema Vasc Peripheral Pulses: posterior tibial pulses present but diminished and dorsalis pedis pulses present but diminished, normal capillary refill, no acute ischemic skin changes noted, normal temperature Skin General Skin Exam: dry skin, decreased hair growth noted; Negative for ecchymosis, eschar, pallor, rashes Wound Narrative: ulcer noted to plantar left heel No malodor, purulence, probing to bone, streaking, fluctuation, crepitus, erythema or other signs of infection. No periwound maceration noted. Skin is atrophic and hairless. Granular base. No significant buildup of callus noted periwound over the last week. Pain to palpation of left heel. Wound goes to level of fat. Edema noted to left lower extremity. Diffuse calluses noted to plantar medial posterior and lateral heel chronic Neuro Gait (Neuro): heel to toe Sensory Exam: extremities light-touch: decreased MSK Motor Exam: strength 5/5 throughout, ROM to foot and ankle joints within normal limits Psych Appearance: appropriate Attitude: calm Debridement Note Debridement Note Post-Debridement Measurements and Additional Note: Post-Debridement Measurements/Treatment - Nurse 1 - General Ulcer Assessment Start: 10/17/20 10:19 Freq: Status: Active Protocol: .LOWEXT Activity Type Activity Date Activity User E-Sign Co-Sign Detail Recorded Client Recorded Date Recorded By Document 10/17/20 10:20 MW [id number] 10/17/20 10:38 MW Document 10/24/20 09:30 BM [id number] 10/24/20 09:45 BMF Document 10/31/20 10:10 BMF [id number] 10/31/20 10:19 BM Document 11/07/20 09:49 DL [id number] 11/07/20 10:04 DL 10/17/20 10/24/20 10/31/20 10:20 09:30 10:10 - Today's Visit Information Type of service Follow-up Visit Follow-up Visit Follow-up Visit (Physician/VICE PRESIDENT OF INSTRUCTION (Physician/VICE PRESIDENT OF INSTRUCTION (Physician/VICE PRESIDENT OF INSTRUCTION ) ) ) Arrival Mode Ambulatory, Ambulatory Ambulatory, Walker Walker Transfer Assistance None None None Accompanied by SELF Patient Identification Verified (Name & Yes Yes Yes ) Patient Requires Transmission-Based No No No Precautions Safety Precautions Fall Prevention Finger Stick Blood Sugar(mg/dl) (if 121 indicated): Blood Sugar Stated by Patient Height and Weight Body Mass Index (BMI) 33.7 33.7 33.7 BMI Classification Obese Obese Obese Vital Signs Temperature (97.8 F-99.1 F) 98.4 F 97.6 F L 97.5 F L Temperature Source Temporal Temporal Temporal Pulse Rate (60-100) 62 64 64 Pulse Location Monitor Monitor Monitor Respiratory Rate (12-18) 18 18 18 Respiratory rate source Observation Observation Observation Oxygen Delivery Method Room Air Room Air Room Air Blood Pressure (90/60-120/80) 166/76 H 154/67 H 171/67 H Blood Pressure Mean (mm Hg) 106 96 101 Source Monitor Monitor Monitor Position Sitting Sitting Sitting Blood Pressure Location Left Arm Right Arm Left Arm History Since Last Visit- (Skip if this is Patient's initial visit) Have you changed medications since your No No No last visit? Any new allergies or adverse reactions No No No Had a fall/change in ADL's that may No Yes No increase risk of falls Signs or symptoms of abuse and/or No No No neglect since last visit Have you been in the hospital since your No No No last visit? Has dressing in place as prescribed Yes Yes Yes Has compression in place as prescribed Yes N/A Yes Has offloadiing in place as prescribed N/A Yes Yes Experienced any changes in pain level or No No No management Left Footwear Total Contact Total Contact Surgical Shoe Cast Cast with pressure relief insole Right Footwear Regular Shoe Regular Shoe Regular Shoe Pain Scale: 0-10 Numeric Is Patient Pain Free? Yes Yes Yes 11/07/20 09:49 WC - Today's Visit Information Type of service Follow-up Visit (Physician/VICE PRESIDENT OF INSTRUCTION ) Arrival Mode Ambulatory Transfer Assistance Accompanied by Patient Identification Verified (Name & ) Patient Requires Transmission-Based No Precautions Safety Precautions Finger Stick Blood Sugar(mg/dl) (if indicated): Blood Sugar Height and Weight Body Mass Index (BMI) 33.7 BMI Classification Obese Vital Signs Temperature (97.8 F-99.1 F) 97.1 F L Temperature Source Temporal Pulse Rate (60-100) 73 Pulse Location Monitor Respiratory Rate (12-18) 20 H Respiratory rate source Observation Oxygen Delivery Method Blood Pressure (90/60-120/80) 156/75 H Blood Pressure Mean (mm Hg) 102 Source Monitor Position Blood Pressure Location History Since Last Visit- (Skip if this is Patient's initial visit) Have you changed medications since your No last visit? Any new allergies or adverse reactions No Had a fall/change in ADL's that may No increase risk of falls Signs or symptoms of abuse and/or No neglect since last visit Have you been in the hospital since your No last visit? Has dressing in place as prescribed Yes Has compression in place as prescribed Yes Has offloadiing in place as prescribed Yes Experienced any changes in pain level or No management Left Footwear Surgical Shoe with pressure relief insole Right Footwear Regular Shoe Pain Scale: 0-10 Numeric Is Patient Pain Free? Yes WC - Nurse 1 - General Ulcer Measurement Start: 10/17/20 10:19 Freq: Status: Active Protocol: Activity Type Activity Date Activity User E-Sign Co-Sign Detail Recorded Client Recorded Date Recorded By Document 10/17/20 10:20 MW [id number] 10/17/20 10:38 MW Document 10/24/20 09:30 BMF [id number] 10/24/20 09:45 BMF Document 10/31/20 10:10 BMF [id number] 10/31/20 10:19 BMF Document 11/07/20 09:49 DL [id number] 11/07/20 10:04 DL 10/17/20 10/24/20 10/31/20 10:20 09:30 10:10 Wound Center Nurse 1 #1 left heel CLUSTER -Combined with other wound No No No -Current Size (cm) - Length 1.8 1.7 1.6 -Current Size (cm) - Width 1.9 1.8 1.8 -Current Size (cm) - Depth 0.3 0.6 0.7 -Total Square Cm 3.42 3.06 2.88 -Photo Taken No No No -Epithelialization None Present None Present None Present -Tunneling No No No -Undermining/Tunneling No Yes Yes -Undermining/Tunneling Starts (O'clock 8 12 ) -Undermining/Tunneling Ends (O'clock) 9 12 -Maximum Distance (cm) 0.5 0.7 -Circular Undermining No No Yes -Exudate Amt Medium Large Medium -Exudate Type Serosanguineous Serosanguineous Serosanguineous -Wound Margin Thickened Thickened Thickened & Rolled Under -Granulation Amt Small (1-33%) Large (67-100%) Medium (34-66%) -Granulation Quality [place] Pale,[place] Red -Slough/Fibrin Yes Yes Yes -Necrosis Amt Medium (34-66%) Small (1-33%) Medium (34-66%) -Necrotic Tissue Type Adherent Slough Adherent Slough Adherent Slough -Structure Exposed N/A -Texture (Margaret-wound Skin Appearance) Assessed, Assessed,Callus Assessed,Callus Localized Edema ,Scarring -Moisture (Margaret-wound Skin Appearance) Assessed, Assessed,Dry/ Assessed, Maceration,Dry/ Scaly Maceration,Dry/ Scaly Scaly -Color (Margaret-wound Skin Appearance) Assessed, Assessed Assessed,Palor Hemosiderin Staining,Rubor -Temperature (Margaret-wound Skin No Abnormality No Abnormality No Abnormality Appearance) (Pt Warm) (Pt Warm) (Pt Warm) -Tenderness on Palpation (Margaret-wound Yes No No Skin Appearance) -Ulcer Cleansing SOAP AND WATER soapy water soapy water -Foul Odor after Cleansing No No No -Anesthetic Used 4% Lidocaine 5% Lidocaine 5% Lidocaine Solution Gel Gel Lower Limb Edema Present Yes Yes Left Calf (cm) 47.5 47.5 Left Ankle (cm) 27.5 27 11/07/20 09:49 Wound Center Nurse 1 #1 left heel CLUSTER -Combined with other wound -Current Size (cm) - Length 1.7 -Current Size (cm) - Width 1.8 -Current Size (cm) - Depth 0.5 -Total Square Cm 3.06 -Photo Taken No -Epithelialization -Tunneling -Undermining/Tunneling -Undermining/Tunneling Starts (O'clock ) -Undermining/Tunneling Ends (O'clock) -Maximum Distance (cm) -Circular Undermining -Exudate Amt Medium -Exudate Type -Wound Margin Thickened -Granulation Amt -Granulation Quality Red -Slough/Fibrin -Necrosis Amt Small (1-33%) -Necrotic Tissue Type Adherent Slough -Structure Exposed N/A -Texture (Margaret-wound Skin Appearance) Callus,Scarring -Moisture (Margaret-wound Skin Appearance) Dry/Scaly -Color (Margaret-wound Skin Appearance) Hemosiderin Staining -Temperature (Margaret-wound Skin No Abnormality Appearance) (Pt Warm) -Tenderness on Palpation (Margaret-wound No Skin Appearance) -Ulcer Cleansing Wound Cleanser -Foul Odor after Cleansing No -Anesthetic Used 4% Lidocaine Solution Lower Limb Edema Present Left Calf (cm) 44.7 Left Ankle (cm) 26 WC - Nurse 2 - General Ulcer CM Notes Start: 10/17/20 10:19 Freq: Status: Active Protocol: Activity Type Activity Date Activity User E-Sign Co-Sign Detail Recorded Client Recorded Date Recorded By Document 10/17/20 10:50 [id number] 10/17/20 11:00 Document 10/24/20 09:59 [id number] 10/24/20 10:02 JF Document 10/31/20 10:30 MW [id number] 10/31/20 10:40 MW Document 11/07/20 10:15 [id number] 11/07/20 10:32 10/17/20 10/24/20 10/31/20 10:50 09:59 10:30 Wound Center Nurse 2 #1 left heel CLUSTER -Time 10:50 10:00 10:31 -Correct Patient Yes Yes Yes -Correct Side, Site, Position Yes Yes Yes -Correct Procedure Yes Yes Yes -Procedure Performed Yes Yes Yes -Type of Procedure Debridement Debridement Debridement -Clinical Debridement Subcutaneous Subcutaneous Subcutaneous -Tissue Removed Subcutaneous Subcutaneous Subcutaneous -Post Debridement (cm) - Length 1.6 1.8 1.5 -Post Debridement (cm) - Width 1.6 1.6 1.8 -Post Debridement (cm) - Depth 0.5 0.6 0.4 -Total Square (Post) (cm) 2.56 2.88 2.70 -Area of Debridement (cm) - Length 1.6 1.8 1.5 -Area of Debridement (cm) - Width 1.6 1.6 1.8 -Total Square (Area) (cm) 2.56 2.88 2.70 -Tunneling No No No -Undermining/Tunneling No No No -Circular Undermining No No No -Wound/Ulcer Outcome Not Healed Not Healed -Ulcer Cleansing Rinsed/ Rinsed/ Rinsed/ Irrigated with Irrigated with Irrigated with Saline Saline Saline -Foul Odor after Cleansing No No No -Bioengineered Tissue No No Yes -Type of Bioengineered Tissue Epifix Epifix -Expiration Date 06/19/25 07/17/25 -Product Lot Number [id number] -Percent Used 100 100 -Lot number of Saline Used [id number] -Bleeding Controlled with Pressure Pressure Pressure -Offloading Yes Yes No -Type of Offloading Total Contact Camwalker Cast (TCC) - Left ($) -Treatment Response Procedure Procedure Procedure Tolerated Well Tolerated Well Tolerated Well -Debridement - Subq, 1st 20sq cm No Yes No -Apply Skin Sub - 1st 25 sq cm - Feet 1 1 -Epifix (per sq cm) 4 4 Pain Scale: 0-10 Numeric Is Patient Pain Free? Yes Yes 11/07/20 10:15 Wound Center Nurse 2 #1 left heel CLUSTER -Time 10:16 -Correct Patient Yes -Correct Side, Site, Position Yes -Correct Procedure Yes -Procedure Performed Yes -Type of Procedure Debridement -Clinical Debridement Subcutaneous -Tissue Removed Subcutaneous -Post Debridement (cm) - Length 1.7 -Post Debridement (cm) - Width 1.8 -Post Debridement (cm) - Depth 0.3 -Total Square (Post) (cm) 3.06 -Area of Debridement (cm) - Length 1.7 -Area of Debridement (cm) - Width 1.8 -Total Square (Area) (cm) 3.06 -Tunneling No -Undermining/Tunneling No -Circular Undermining No -Wound/Ulcer Outcome Not Healed -Ulcer Cleansing Rinsed/ Irrigated with Saline -Foul Odor after Cleansing No -Bioengineered Tissue Yes -Type of Bioengineered Tissue Epifix -Expiration Date 07/17/25 -Product Lot Number [id number] -Percent Used 100 -Lot number of Saline Used [id number] -Bleeding Controlled with Pressure -Offloading Yes -Type of Offloading Surgical Shoe -Treatment Response Procedure Tolerated Well -Debridement - Subq, 1st 20sq cm No -Apply Skin Sub - 1st 25 sq cm - Feet 1 -Epifix (per sq cm) 4 Pain Scale: 0-10 Numeric Is Patient Pain Free? Yes WC - Nurse 3 - General Ulcer D/C NN Start: 10/17/20 10:19 Freq: Status: Active Protocol: Activity Type Activity Date Activity User E-Sign Co-Sign Detail Recorded Client Recorded Date Recorded By Document 10/17/20 11:13 [id number] 10/17/20 11:14 Document 10/24/20 10:07 [facility] [id number] 10/24/20 10:08 [facility] Document 10/31/20 10:54 [facility] [id number] 10/31/20 10:54 [facility] Document 11/07/20 10:39 [facility] [id number] 11/07/20 10:40 [facility] 10/17/20 10/24/20 10/31/20 11:13 10:07 10:54 Wound Care Nurse 3 #1 left heel CLUSTER -Ulcer Cleansing Rinsed/ Irrigated with Saline -Foul Odor after Cleansing No -Primary Dressing Applied Mepilex Border Silvercel,Other -Other Dressing heel hat epifix -Primary Dressing Covered/Secured with Dry Gauze & Dry Gauze & Roll Gauze, Roll Gauze, Secured with Secured with Tape,Other Tape,Other -Other Covering drsg per mw rn heel hat -Mepilex Border 1 -Silvercel 1 Right -Compression Wrap Kevin Wrap Kevin Wrap Left -Compression Wrap Kevin Wrap Kevin Wrap -Other Treatment Response Procedure Procedure Tolerated Well Tolerated Well Pain Scale: 0-10 Numeric Is Patient Pain Free? Yes Yes Yes WC - Visit Discharge Discharge Condition Stable Stable Stable Ambulatory Status Ambulatory Ambulatory Ambulatory, Walker Transportation Private Auto Private Auto Private Auto Medication Reconcilliation completed & Yes provided to patient/care provider Clinical Summary of Care Provided Yes Facility Type [facility] 11/07/20 10:39 Wound Care Nurse 3 #1 left heel CLUSTER -Ulcer Cleansing -Foul Odor after Cleansing -Primary Dressing Applied Mepilex Border -Other Dressing epifix -Primary Dressing Covered/Secured with Other -Other Covering tcc undercast per dlehr lpn cma -Mepilex Border 1 -Silvercel Right -Compression Wrap Kevin Wrap Left -Compression Wrap -Other tcc undercast per dl lpn cma Treatment Response Procedure Tolerated Well Pain Scale: 0-10 Numeric Is Patient Pain Free? Yes WC - Visit Discharge Discharge Condition Stable Ambulatory Status Ambulatory, Walker Transportation Private Auto Medication Reconcilliation completed & provided to patient/care provider Clinical Summary of Care Provided Facility Type Home Health Wound debrided: Heel Laterality: Left Wound Grade/Stage: Acevedo 1 Type of Debridement: Excisional debridement Anesthesia Used: 4% Lidocaine Solution Depth: in the subcutaneous layer Percentage of wound debrided: 100 Instrument Used: 3mm curette Tissue Removed: includes fibrous, devitalized, biofilm, callus and slough tissue Severity: Fat Layer Exposed Amount of bleeding with debridement: Mild Bleeding Controlled with: Pressure Patient tolerated procedure: Patient tolerated procedure well Assessment/Plan Assessment/Plan (1) Non-pressure chronic ulcer of left heel and midfoot with fat layer exposed: CODE(S): L97.422 - Non-pressure chronic ulcer of left heel and midfoot with fat layer exposed (2) Bilateral edema of lower extremity: CODE(S): R60.0 - Localized edema (3) Left foot pain: CODE(S): M79.672 - Pain in left foot (4) Corns and callosities: CODE(S): L84 - Corns and callosities (5) Type 2 diabetes mellitus with diabetic polyneuropathy: CODE(S): E11.42 - Type 2 diabetes mellitus with diabetic polyneuropathy QUALIFIERS: Diabetes mellitus long wall mining machine tender insulin use: with 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 Qualified Code(s): E11.42 - Type 2 diabetes mellitus with diabetic polyneuropathy; Z79.4 - terminal make up operator (current) use of insulin (6) Tobacco abuse: CODE(S): Z72.0 - Tobacco use (7) Obesity: CODE(S): E66.9 - Obesity, unspecified QUALIFIERS: Obesity type: due to excess calories Obesity classification: adult class 1 (BMI 30 - 34.9) Serious obesity comorbidity presence: with serious comorbidity Body mass index: BMI 33.0-33.9 Qualified Code(s): E66.09 - Other obesity due to excess calories; Z68.33 - Body mass index [BMI] 33.0-33.9, adult (8) Cellulitis of left foot: CODE(S): L03.116 - Cellulitis of left lower limb PLAN: Patient seen and examined. Patient wound is minimal improved from last week. Patient relates he has had a lot of pain from the wound this with the past week. Ulcerations were sharply debrided after verbal consent was obtained from the patient. Was done without incident. Continued debridement of surrounding callus tissue provided. Discussed importance of cleaning and maintaining foot both to prevent infection as well as to prevent future wounds. Discussed he is at higher risk for wounds due to his diabetes, neuropathy, hyperglycemia, obesity, swelling, and tabacco abuse. Discussed that he needs to cut back on his smoking and better controlling his blood sugar to better optimize his healing. Discussed importance of smoking cessation, blood sugar control, weight management, offloading, proper nutrition, and hygiene to optimize healing potential. He has a surgical shoe was further modified to better offload the ulceration site. Patient is noted to be on 600 mg of gabapentin to control his neuropathy pain. This is managed by his PCP. Arterial and venous studies were reviewed. Showing likely adequate perfusion for healing. Patient relates he has been smoking since he was 10 years old. Discussed impact smoking has on his vessels as well as impact on wound healing. Patient relates that he is unwilling to quit entirely but he will try to cut back. He does not want any medical assistance at this process. Cultures obtained 10/24/2020 demonstrated rare Proteus Mirabella's, Enterococcus avium and Enterococcus for Cialis. Patient has finished course of antibiotics with resolution of infection symptoms We continued epi fix graft today. I recommend application of advanced wound healing product to the indicated ulceration. Prior authorization was confirmed. The indications, benefits, anticipated application and healing time management were reviewed in detail. Verbal consent was obtained in the procedure for today. Site was debrided and graft was applied according to standard protocol and was further secured with a nonadherent dressing and Steri-Strips. Patient instructed that they can change outer dressing but not to go beneath the Steri-Strips. Patient provided verbal consent for a total contact cast. This was applied in a well padded neutral position according standard protocol. The patient tolerated this well. Patient was also advised to keep this clean, dry, and intact until follow-up next week. All questions answered. Patient to follow up in 1 week. This note was generated with [employer] software. It may contain incorrect words, spelling, and punctuation that were not noted in checking the note before signing.
[2020-11-14 10:07] VITALS: BP 151/75; PULSE 65; RESP 18; TEMP 36.6; BMI 33.7
--- NOTE | 2020-11-14 12:49 | PCM.WC.PN ---
History of Present Illness Date of Service: 11/14/20 Chief Complaint: left heel ulcer swelling calluses History of Wound: Patient presents for wound to left plantar foot. He is unsure how long it has been there as he can't see or reach his feet. He attributes this largely to his obesity. He relates that his daughter looked at his feet and saw the wound. He relates that his children live over an hour away and he lives alone. He relates some bloody drainage has been noted. He relates his daughter put a gauze over it secured with tape. Patient also complains of swelling to his legs, especially his left. He relates he has smoked since he was 10 years old. He is also diabetic with neuropathy and relates his last hemoglobin A1c was 9.6. He also has hypertension. Patient relates improvement in left heel pain when in total contact cast but that he feels unsteady and has fallen and does not wish to continue this Patient has also had recent admission to the hospital for hypoxemia and heart failure. Patient was noted to be discharged on oxygen therapy. Patient did not present to the clinic today on his oxygen. He relates that he is using 2 L while at home still. He relates no significant change after appointment with electronics commodity manager Progress of Wound: Wound is improved with more granular tissue and smaller size noted Subjective Subjective Patient seen and examined resting comfortably. Patient denies any new pedal complaints. Patient denies any nausea, fever, chills, chest pain, shortness of breath, cough, streaking, purulence, vomiting. Objective Data Objective Data Vital Signs: Vital Signs Temp Pulse Resp BP 97.8 F 65 18 151/75 H 11/14/20 10:07 11/14/20 10:07 11/14/20 10:07 11/14/20 10:07 Oxygen Delivery Method Room Air Body Mass Index (BMI) 33.7 Lab / Micro Data Micro: Microbiology 10/24/20 10:00 Ulcer, Decubitus - Left Foot Gram Stain - Final 10/24/20 10:00 Ulcer, Decubitus - Left Foot Wound Culture - Final Proteus mirabilis Enterococcus avium Enterococcus faecalis 10/24/20 10:00 Ulcer, Decubitus - Left Foot Anaerobic Culture - Final No anaerobic bacteria isolated. Physical Exam Narrative Const alert and no apparent distress General Appearance: cooperative and comfortable Resp normal respiratory effort Effort and Inspection: able to speak in complete sentences Extremity no calf tenderness, negative milo and draper sign lower extremity edema left worse than right General Extremity: tenderness to palpation of ulceration and posterior heel; Negative for clubbing or cyanosis or ecchymosis or erythema Vasc Peripheral Pulses: posterior tibial pulses present but diminished and dorsalis pedis pulses present but diminished, normal capillary refill, no acute ischemic skin changes noted, normal temperature Skin General Skin Exam: dry skin, decreased hair growth noted; Negative for ecchymosis, eschar, pallor, rashes Wound Narrative: ulcer noted to plantar left heel No malodor, purulence, probing to bone, streaking, fluctuation, crepitus, erythema or other signs of infection. No periwound maceration noted. Skin is atrophic and hairless. Granular base. No significant buildup of callus noted periwound over the last week. Pain to palpation of left heel. Wound goes to level of fat. Edema noted to left lower extremity. Diffuse calluses noted to plantar medial posterior and lateral heel chronic Neuro Gait (Neuro): heel to toe Sensory Exam: extremities light-touch: decreased MSK Motor Exam: strength 5/5 throughout, ROM to foot and ankle joints within normal limits Psych Appearance: appropriate Attitude: calm Debridement Note Debridement Note Post-Debridement Measurements and Additional Note: Post-Debridement Measurements/Treatment - Nurse 1 - General Ulcer Assessment Start: 10/17/20 10:19 Freq: Status: Active Protocol: [email or web address] Activity Type Activity Date Activity User E-Sign Co-Sign Detail Recorded Client Recorded Date Recorded By Document 10/17/20 10:20 MW [id number] 10/17/20 10:38 MW Document 10/24/20 09:30 [facility] [id number] 10/24/20 09:45 BM Document 10/31/20 10:10 [facility] [id number] 10/31/20 10:19 BM Document 11/07/20 09:49 DL [id number] 11/07/20 10:04 DL Document 11/14/20 10:07 BM [id number] 11/14/20 10:30 BM 10/17/20 10/24/20 10/31/20 10:20 09:30 10:10 - Today's Visit Information Type of service Follow-up Visit Follow-up Visit Follow-up Visit (Physician/CERTIFIED ATHLETIC TRAINER (Physician/CERTIFIED ATHLETIC TRAINER (Physician/CERTIFIED ATHLETIC TRAINER ) ) ) Arrival Mode Ambulatory, Ambulatory Ambulatory, Walker Walker Transfer Assistance None None None Accompanied by SELF Patient Identification Verified (Name & Yes Yes Yes ) Patient Requires Transmission-Based No No No Precautions Safety Precautions Fall Prevention Finger Stick Blood Sugar(mg/dl) (if 121 indicated): Blood Sugar Stated by Patient Height and Weight Body Mass Index (BMI) 33.7 33.7 33.7 BMI Classification Obese Obese Obese Vital Signs Temperature (97.8 F-99.1 F) 98.4 F 97.6 F L 97.5 F L Temperature Source Temporal Temporal Temporal Pulse Rate (60-100) 62 64 64 Pulse Location Monitor Monitor Monitor Respiratory Rate (12-18) 18 18 18 Respiratory rate source Observation Observation Observation Oxygen Delivery Method Room Air Room Air Room Air Blood Pressure (90/60-120/80) 166/76 H 154/67 H 171/67 H Blood Pressure Mean (mm Hg) 106 96 101 Source Monitor Monitor Monitor Position Sitting Sitting Sitting Blood Pressure Location Left Arm Right Arm Left Arm History Since Last Visit- (Skip if this is Patient's initial visit) Have you changed medications since your No No No last visit? Any new allergies or adverse reactions No No No Had a fall/change in ADL's that may No Yes No increase risk of falls Signs or symptoms of abuse and/or No No No neglect since last visit Have you been in the hospital since your No No No last visit? Has dressing in place as prescribed Yes Yes Yes Has compression in place as prescribed Yes N/A Yes Has offloadiing in place as prescribed N/A Yes Yes Experienced any changes in pain level or No No No management Left Footwear Total Contact Total Contact Surgical Shoe Cast Cast with pressure relief insole Right Footwear Regular Shoe Regular Shoe Regular Shoe Pain Scale: 0-10 Numeric Is Patient Pain Free? Yes Yes Yes 11/07/20 11/14/20 09:49 10:07 WC - Today's Visit Information Type of service Follow-up Visit Follow-up Visit (Physician/CERTIFIED ATHLETIC TRAINER (Physician/CERTIFIED ATHLETIC TRAINER ) ) Arrival Mode Ambulatory Ambulatory, Walker Transfer Assistance Transfer Board Accompanied by Patient Identification Verified (Name & Yes ) Patient Requires Transmission-Based No No Precautions Safety Precautions Finger Stick Blood Sugar(mg/dl) (if indicated): Blood Sugar Height and Weight Body Mass Index (BMI) 33.7 33.7 BMI Classification Obese Obese Vital Signs Temperature (97.8 F-99.1 F) 97.1 F L 97.8 F Temperature Source Temporal Temporal Pulse Rate (60-100) 73 65 Pulse Location Monitor Monitor Respiratory Rate (12-18) 20 H 18 Respiratory rate source Observation Observation Oxygen Delivery Method Room Air Blood Pressure (90/60-120/80) 156/75 H 151/75 H Blood Pressure Mean (mm Hg) 102 100 Source Monitor Monitor Position Sitting Blood Pressure Location Left Arm History Since Last Visit- (Skip if this is Patient's initial visit) Have you changed medications since your No No last visit? Any new allergies or adverse reactions No No Had a fall/change in ADL's that may No No increase risk of falls Signs or symptoms of abuse and/or No No neglect since last visit Have you been in the hospital since your No No last visit? Has dressing in place as prescribed Yes Yes Has compression in place as prescribed Yes N/A Has offloadiing in place as prescribed Yes Yes Experienced any changes in pain level or No No management Left Footwear Surgical Shoe Total Contact with pressure Cast relief insole Right Footwear Regular Shoe Regular Shoe Pain Scale: 0-10 Numeric Is Patient Pain Free? Yes Yes WC - Nurse 1 - General Ulcer Measurement Start: 10/17/20 10:19 Freq: Status: Active Protocol: Activity Type Activity Date Activity User E-Sign Co-Sign Detail Recorded Client Recorded Date Recorded By Document 10/17/20 10:20 MW [id number] 10/17/20 10:38 MW Document 10/24/20 09:30 BM [id number] 10/24/20 09:45 BMF Document 10/31/20 10:10 BMF [id number] 10/31/20 10:19 BMF Document 11/07/20 09:49 DL [id number] 11/07/20 10:04 DL Document 11/14/20 10:07 BMF [id number] 11/14/20 10:30 BMF 10/17/20 10/24/20 10/31/20 10:20 09:30 10:10 Wound Center Nurse 1 #1 left heel CLUSTER -Combined with other wound No No No -Current Size (cm) - Length 1.8 1.7 1.6 -Current Size (cm) - Width 1.9 1.8 1.8 -Current Size (cm) - Depth 0.3 0.6 0.7 -Total Square Cm 3.42 3.06 2.88 -Photo Taken No No No -Epithelialization None Present None Present None Present -Tunneling No No No -Undermining/Tunneling No Yes Yes -Undermining/Tunneling Starts (O'clock 8 12 ) -Undermining/Tunneling Ends (O'clock) 9 12 -Maximum Distance (cm) 0.5 0.7 -Circular Undermining No No Yes -Exudate Amt Medium Large Medium -Exudate Type Serosanguineous Serosanguineous Serosanguineous -Wound Margin Thickened Thickened Thickened & Rolled Under -Granulation Amt Small (1-33%) Large (67-100%) Medium (34-66%) -Granulation Quality Slovan Pale,Slovan Red -Slough/Fibrin Yes Yes Yes -Necrosis Amt Medium (34-66%) Small (1-33%) Medium (34-66%) -Necrotic Tissue Type Adherent Slough Adherent Slough Adherent Slough -Structure Exposed N/A -Texture (Margaret-wound Skin Appearance) Assessed, Assessed,Callus Assessed,Callus Localized Edema ,Scarring -Moisture (Margaret-wound Skin Appearance) Assessed, Assessed,Dry/ Assessed, Maceration,Dry/ Scaly Maceration,Dry/ Scaly Scaly -Color (Margaret-wound Skin Appearance) Assessed, Assessed Assessed,Palor Hemosiderin Staining,Rubor -Temperature (Margaret-wound Skin No Abnormality No Abnormality No Abnormality Appearance) (Pt Warm) (Pt Warm) (Pt Warm) -Tenderness on Palpation (Margaret-wound Yes No No Skin Appearance) -Ulcer Cleansing SOAP AND WATER soapy water soapy water -Foul Odor after Cleansing No No No -Anesthetic Used 4% Lidocaine 5% Lidocaine 5% Lidocaine Solution Gel Gel Lower Limb Edema Present Yes Yes Left Calf (cm) 47.5 47.5 Left Ankle (cm) 27.5 27 11/07/20 11/14/20 09:49 10:07 Wound Center Nurse 1 #1 left heel CLUSTER -Combined with other wound No -Current Size (cm) - Length 1.7 1.5 -Current Size (cm) - Width 1.8 1.7 -Current Size (cm) - Depth 0.5 0.7 -Total Square Cm 3.06 2.55 -Photo Taken No No -Epithelialization None Present -Tunneling No -Undermining/Tunneling Yes -Undermining/Tunneling Starts (O'clock 8 ) -Undermining/Tunneling Ends (O'clock) 12 -Maximum Distance (cm) 0.7 -Circular Undermining Yes -Exudate Amt Medium Large -Exudate Type Serosanguineous -Wound Margin Thickened Thickened -Granulation Amt Large (67-100%) -Granulation Quality Red Red -Slough/Fibrin Yes -Necrosis Amt Small (1-33%) Small (1-33%) -Necrotic Tissue Type Adherent Slough Adherent Slough -Structure Exposed N/A -Texture (Margaret-wound Skin Appearance) Callus,Scarring Assessed,Callus ,Scarring -Moisture (Margaret-wound Skin Appearance) Dry/Scaly Assessed, Maceration -Color (Margaret-wound Skin Appearance) Hemosiderin Palor Staining -Temperature (Margaret-wound Skin No Abnormality No Abnormality Appearance) (Pt Warm) (Pt Warm) -Tenderness on Palpation (Margaret-wound No No Skin Appearance) -Ulcer Cleansing Wound Cleanser soapy water -Foul Odor after Cleansing No No -Anesthetic Used 4% Lidocaine 5% Lidocaine Solution Gel Lower Limb Edema Present Yes Left Calf (cm) 44.7 47.8 Left Ankle (cm) 26 28.5 WC - Nurse 2 - General Ulcer CM Notes Start: 10/17/20 10:19 Freq: Status: Active Protocol: Activity Type Activity Date Activity User E-Sign Co-Sign Detail Recorded Client Recorded Date Recorded By Document 10/17/20 10:50 [id number] 10/17/20 11:00 JF Document 10/24/20 09:59 JF [id number] 10/24/20 10:02 JF Document 10/31/20 10:30 MW [id number] 10/31/20 10:40 MW Document 11/07/20 10:15 JF [id number] 11/07/20 10:32 JF Edit Result 11/07/20 10:15 JF (1) [id number] 11/08/20 06:56 PL Document 11/14/20 10:59 JF [id number] 11/14/20 11:01 JF (1) #1 left heel CLUSTER - Type of Offloading Surgical Shoe => Total Contact Cast => (TCC) - Left ($) 10/17/20 10/24/20 10/31/20 10:50 09:59 10:30 Wound Center Nurse 2 #1 left heel CLUSTER -Time 10:50 10:00 10:31 -Correct Patient Yes Yes Yes -Correct Side, Site, Position Yes Yes Yes -Correct Procedure Yes Yes Yes -Procedure Performed Yes Yes Yes -Type of Procedure Debridement Debridement Debridement -Clinical Debridement Subcutaneous Subcutaneous Subcutaneous -Tissue Removed Subcutaneous Subcutaneous Subcutaneous -Post Debridement (cm) - Length 1.6 1.8 1.5 -Post Debridement (cm) - Width 1.6 1.6 1.8 -Post Debridement (cm) - Depth 0.5 0.6 0.4 -Total Square (Post) (cm) 2.56 2.88 2.70 -Area of Debridement (cm) - Length 1.6 1.8 1.5 -Area of Debridement (cm) - Width 1.6 1.6 1.8 -Total Square (Area) (cm) 2.56 2.88 2.70 -Tunneling No No No -Undermining/Tunneling No No No -Circular Undermining No No No -Wound/Ulcer Outcome Not Healed Not Healed -Ulcer Cleansing Rinsed/ Rinsed/ Rinsed/ Irrigated with Irrigated with Irrigated with Saline Saline Saline -Foul Odor after Cleansing No No No -Bioengineered Tissue No No Yes -Type of Bioengineered Tissue Epifix Epifix -Expiration Date 06/19/25 07/17/25 -Product Lot Number [id number] -Percent Used 100 100 -Lot number of Saline Used [id number] -Bleeding Controlled with Pressure Pressure Pressure -Offloading Yes Yes No -Type of Offloading Total Contact Camwalker Cast (TCC) - Left ($) -Treatment Response Procedure Procedure Procedure Tolerated Well Tolerated Well Tolerated Well -Debridement - Subq, 1st 20sq cm No Yes No -Apply Skin Sub - 1st 25 sq cm - Feet 1 1 -Epifix (per sq cm) 4 4 Pain Scale: 0-10 Numeric Is Patient Pain Free? Yes Yes 11/07/20 06 10:15 10:59 Wound Center Nurse 2 #1 left heel CLUSTER -Time 10:16 10:59 -Correct Patient Yes Yes -Correct Side, Site, Position Yes Yes -Correct Procedure Yes Yes -Procedure Performed Yes Yes -Type of Procedure Debridement Debridement -Clinical Debridement Subcutaneous Subcutaneous -Tissue Removed Subcutaneous Subcutaneous -Post Debridement (cm) - Length 1.7 1.5 -Post Debridement (cm) - Width 1.8 1.5 -Post Debridement (cm) - Depth 0.3 0.3 -Total Square (Post) (cm) 3.06 2.25 -Area of Debridement (cm) - Length 1.7 1.5 -Area of Debridement (cm) - Width 1.8 1.5 -Total Square (Area) (cm) 3.06 2.25 -Tunneling No No -Undermining/Tunneling No No -Circular Undermining No No -Wound/Ulcer Outcome Not Healed Not Healed -Ulcer Cleansing Rinsed/ Irrigated with Saline -Foul Odor after Cleansing No No -Bioengineered Tissue Yes Yes -Type of Bioengineered Tissue Epifix Epifix -Expiration Date 07/17/25 06/19/25 -Product Lot Number [id number] -Percent Used 100 100 -Lot number of Saline Used [id number] -Bleeding Controlled with Pressure Pressure -Offloading Yes Yes -Type of Offloading Total Contact Total Contact Cast (TCC) - Cast (TCC) - Left ($) Left ($) -Treatment Response Procedure Procedure Tolerated Well Tolerated Well -Debridement - Subq, 1st 20sq cm No No -Apply Skin Sub - 1st 25 sq cm - Feet 1 1 -Epifix (per sq cm) 4 4 Pain Scale: 0-10 Numeric Is Patient Pain Free? Yes Yes WC - Nurse 3 - General Ulcer D/C NN Start: 10/17/20 10:19 Freq: Status: Active Protocol: Activity Type Activity Date Activity User E-Sign Co-Sign Detail Recorded Client Recorded Date Recorded By Document 10/17/20 11:13 [id number] 10/17/20 11:14 Document 10/24/20 10:07 [facility] [id number] 10/24/20 10:08 [facility] Document 10/31/20 10:54 [facility] [id number] 10/31/20 10:54 [facility] Document 11/07/20 10:39 [facility] [id number] 11/07/20 10:40 [facility] Document 11/14/20 11:18 [facility] [id number] 11/14/20 11:20 [facility] 10/17/20 10/24/2010/31/21 11:13 10:07 10:54 Wound Care Nurse 3 #1 left heel CLUSTER -Ulcer Cleansing Rinsed/ Irrigated with Saline -Foul Odor after Cleansing No -Primary Dressing Applied Mepilex Border Silvercel,Other -Other Dressing heel hat epifix -Primary Dressing Covered/Secured with Dry Gauze & Dry Gauze & Roll Gauze, Roll Gauze, Secured with Secured with Tape,Other Tape,Other -Other Covering drsg per mw rn heel hat -Mepilex Border 1 -Silvercel 1 Right -Compression Wrap Kevin Wrap Kevin Wrap Left -Compression Wrap Kevin Wrap Kevin Wrap -Other Treatment Response Procedure Procedure Tolerated Well Tolerated Well Pain Scale: 0-10 Numeric Is Patient Pain Free? Yes Yes Yes WC - Visit Discharge Discharge Condition Stable Stable Stable Ambulatory Status Ambulatory Ambulatory Ambulatory, Walker Transportation Private Auto Private Auto Private Auto Medication Reconcilliation completed & Yes provided to patient/care provider Clinical Summary of Care Provided Yes Facility [facility] 11/07/20 11/14/20 10:39 11:18 Wound Care Nurse 3 #1 left heel CLUSTER -Ulcer Cleansing -Foul Odor after Cleansing -Primary Dressing Applied Mepilex Border -Other Dressing epifix epifix -Primary Dressing Covered/Secured with Other Other -Other Covering tcc undercast tcc undercast per dlehr electronics warfare technician per dl electronics warfare technician -Mepilex Border 1 -Silvercel Right -Compression Wrap Kevin Wrap Left -Compression Wrap -Other tcc undercast tcc undercast per dl electronics warfare technician Treatment Response Procedure Procedure Tolerated Well Tolerated Well Pain Scale: 0-10 Numeric Is Patient Pain Free? Yes Yes WC - Visit Discharge Discharge Condition Stable Stable Ambulatory Status Ambulatory, Ambulatory, Walker Walker Transportation Private Auto Private Auto Medication Reconcilliation completed & provided to patient/care provider Clinical Summary of Care Provided Facility Type Home Health Wound debrided: heel Laterality: Left Wound Grade/Stage: daugherty 1 Type of Debridement: Excisional debridement Anesthesia Used: 4% Lidocaine Solution Depth: in the subcutaneous layer Percentage of wound debrided: 100 Instrument Used: 3mm curette Tissue Removed: includes fibrous, devitalized, biofilm, callus and slough tissue Severity: Fat Layer Exposed Amount of bleeding with debridement: Mild Bleeding Controlled with: Pressure Patient tolerated procedure: Patient tolerated procedure well Assessment/Plan Assessment/Plan (1) Non-pressure chronic ulcer of left heel and midfoot with fat layer exposed: CODE(S): L97.422 - Non-pressure chronic ulcer of left heel and midfoot with fat layer exposed (2) Bilateral edema of lower extremity: CODE(S): R60.0 - Localized edema (3) Left foot pain: CODE(S): M79.672 - Pain in left foot (4) Corns and callosities: CODE(S): L84 - Corns and callosities (5) Type 2 diabetes mellitus with diabetic polyneuropathy: CODE(S): E11.42 - Type 2 diabetes mellitus with diabetic polyneuropathy QUALIFIERS: Diabetes mellitus assisted insulin use: with assisted use Qualified Code(s): E11.42 - Type 2 diabetes mellitus with diabetic polyneuropathy; Z79.4 - superintendent container terminal (current) use of insulin (6) Tobacco abuse: CODE(S): Z72.0 - Tobacco use (7) Obesity: CODE(S): E66.9 - Obesity, unspecified QUALIFIERS: Body mass index: BMI 33.0-33.9 Obesity classification: adult class 1 (BMI 30 - 34.9) Obesity type: due to excess calories Serious obesity comorbidity presence: with serious comorbidity Qualified Code(s): E66.09 - Other obesity due to excess calories; Z68.33 - Body mass index [BMI] 33.0-33.9, adult (8) Cellulitis of left foot: CODE(S): L03.116 - Cellulitis of left lower limb PLAN: Patient seen and examined. Patient wound is minimal improved from last week. Patient relates he still has pain from the wound. Ulcerations were sharply debrided after verbal consent was obtained from the patient. Was done without incident. Continued debridement of surrounding callus tissue provided. Discussed importance of cleaning and maintaining foot both to prevent infection as well as to prevent future wounds. Discussed he is at higher risk for wounds due to his diabetes, neuropathy, hyperglycemia, obesity, swelling, and tabacco abuse. Discussed that he needs to cut back on his smoking and better controlling his blood sugar to better optimize his healing. Patient has not improved his tobacco abuse or his hyperglycemia. Patient is also noted to be rather active. Reviewed how pressure will impact the wound. Discussed that this is why we are using TCC to help offload area Discussed importance of smoking cessation, blood sugar control, weight management, offloading, proper nutrition, and hygiene to optimize healing potential. He has a surgical shoe was further modified to better offload the ulceration site. Patient is noted to be on 600 mg of gabapentin to control his neuropathy pain. This is managed by his PCP. Arterial and venous studies were reviewed. Showing likely adequate perfusion for healing. Patient relates he has been smoking since he was 10 years old. Discussed impact smoking has on his vessels as well as impact on wound healing. Patient relates that he is unwilling to quit entirely but he will try to cut back. He does not want any medical assistance at this process. Cultures obtained 10/24/2020 demonstrated rare Proteus Mirabella's, Enterococcus avium and Enterococcus for Cialis. Patient has finished course of antibiotics with resolution of infection symptoms We continued epi fix graft today. This is noted to be his last graft I recommend application of advanced wound healing product to the indicated ulceration. Prior authorization was confirmed. The indications, benefits, anticipated application and healing time management were reviewed in detail. Verbal consent was obtained in the procedure for today. Site was debrided and graft was applied according to standard protocol and was further secured with a nonadherent dressing and Steri-Strips. Patient instructed that they can change outer dressing but not to go beneath the Steri-Strips. Patient provided verbal consent for a total contact cast. This was applied in a well padded neutral position according standard protocol. The patient tolerated this well. Patient was also advised to keep this clean, dry, and intact until follow-up next week. All questions answered. Patient to follow up in 1 week. This note was generated with [employer] dictation software. It may contain incorrect words, spelling, and punctuation that were not noted in checking the note before signing.
== END 2020-11-15 23:59 ==
LOC: WC 09:45
PROVIDERS: Referring Provider Podiatrist Foot & Ankle Surgery; Visit Provider Podiatrist Foot & Ankle Surgery
DX: E11.621 Type 2 diabetes mellitus with foot ulcer (principal); M79.89 Other specified soft tissue disorders; E11.42 Type 2 diabetes mellitus with diabetic polyneuropathy; L84 Corns and callosities; E66.09 Other obesity due to excess calories; Z68.33 Body mass index [BMI] 33.0-33.9, adult; L97.422 Non-pressure chronic ulcer of left heel and midfoot with fat layer exposed; F17.200 Nicotine dependence, unspecified, uncomplicated; I11.0 Hypertensive heart disease with heart failure; I50.9 Heart failure, unspecified; L03.116 Cellulitis of left lower limb
CPT/HCPCS: 11042; 15275; 29445; 87070; 87075; 87077; 87186; 87205; 87640; Q4186

== ENCOUNTER → 2020-11-27 12:58 | Outpatient (CLI) | payer MEDICARE, BC, SELFPAY ==
[2020-09-12 14:19] VITALS: BMI 33.7
[2020-11-21 10:13] VITALS: BMI 33.7
--- NOTE | 2020-11-28 13:12 | PFT ---
INTRODUCTION: The patient is a 65-year-old male that presents for pulmonary function studies secondary to a diagnosis of emphysema. Respiratory therapy reported good patient effort. Bronchodilators were used during testing. INTERPRETATION: Forced expiration spirometry demonstrates the presence of a moderately severe large airways obstructive ventilatory defect. There was no significant response to aerosolized bronchodilators. Spirograms are of good quality and plateau normally. Body plethysmography was performed and revealed an elevated RV to 132% of predicted, indicative of underlying air trapping. Diffusing capacity by single breath CO was within normal limits. 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
== END ==
PROVIDERS: Referring Provider Nurse Practitioner Acute Care; Visit Provider Nurse Practitioner Acute Care
DX: J43.2 Centrilobular emphysema (principal)
CPT/HCPCS: 94060; 94726; 94729

== ENCOUNTER 2020-11-28 10:00 | Outpatient (RCR) | payer MEDICARE, BC, SELFPAY ==
[2020-11-16 00:22] VITALS: BP 151/75; PULSE 65; RESP 18; TEMP 36.6
[2020-11-21 10:13] VITALS: BP 156/49; PULSE 68; RESP 18; TEMP 36.9; BMI 33.7
--- NOTE | 2020-11-21 12:19 | PN.PCM_ITS ---
History of Present Illness Date of Service: 11/21/20 Chief Complaint: left heel ulcer swelling calluses History of Wound: Patient presents for wound to left plantar foot. He is unsure how long it has been there as he can't see or reach his feet. He attributes this largely to his obesity. He relates that his daughter looked at his feet and saw the wound. He relates that his children live over an hour away and he lives alone. He relates some bloody drainage has been noted. He relates his daughter put a gauze over it secured with tape. Patient also complains of swelling to his legs, especially his left. He relates he has smoked since he was 10 years old. He is also diabetic with neuropathy and relates his last hemoglobin A1c was 9.6. He also has hypertension. Patient relates improvement in left heel pain when in total contact cast but that he feels unsteady and has fallen and does not wish to continue this Patient has also had recent admission to the hospital for hypoxemia and heart failure. Patient was noted to be discharged on oxygen therapy. Patient did not present to the clinic today on his oxygen. He relates that he is using 2 L while at home still. He relates no significant change after appointment with [employer] Progress of Wound: Larger Subjective Subjective Patient seen and examined resting comfortably. Patient denies any new pedal complaints. Patient denies any nausea, fever, chills, chest pain, shortness of breath, cough, streaking, purulence, vomiting. He relates that there is less pain to his heel. Objective Data Objective Data Vital Signs: Vital Signs Temp Pulse Resp BP 98.5 F 68 18 156/49 H 11/21/20 10:13 11/21/20 10:13 11/21/20 10:13 11/21/20 10:13 Oxygen Delivery Method Room Air Body Mass Index (BMI) 33.7 Physical Exam Narrative Const alert and no apparent distress General Appearance: cooperative and comfortable Resp normal respiratory effort Effort and Inspection: able to speak in complete sentences Extremity no calf tenderness, negative milo and draper sign lower extremity edema left worse than right General Extremity: tenderness to palpation of ulceration and posterior heel; Negative for clubbing or cyanosis or ecchymosis or erythema Vasc Peripheral Pulses: posterior tibial pulses present but diminished and dorsalis pedis pulses present but diminished, normal capillary refill, no acute ischemic skin changes noted, normal temperature Skin General Skin Exam: dry skin, decreased hair growth noted; Negative for ecchymosis, eschar, pallor, rashes Wound Narrative: ulcer noted to plantar left heel No malodor, purulence, probing to bone, streaking, fluctuation, crepitus, erythema or other signs of infection. No periwound maceration noted. Skin is atrophic and hairless. Granular base. No significant buildup of callus noted periwound over the last week. Pain to palpation of left heel. Wound goes to level of fat. Edema noted to left lower extremity. Diffuse calluses noted to plantar medial posterior and lateral heel chronic Neuro Gait (Neuro): heel to toe Sensory Exam: extremities light-touch: decreased MSK Motor Exam: strength 5/5 throughout, ROM to foot and ankle joints within normal limits Psych Appearance: appropriate Attitude: calm Debridement Note Debridement Note Post-Debridement Measurements and Additional Note: Post-Debridement Measurements/Treatment - Nurse 1 - General Ulcer Assessment Start: 11/21/20 10:13 Freq: Status: Active Protocol: EVELYN Activity Type Activity Date Activity User E-Sign Co-Sign Detail Recorded Client Recorded Date Recorded By Document 11/21/20 10:13 [facility] [id number] 11/21/20 10:23 [facility] 11/21/20 10:13 - Today's Visit Information Type of service Follow-up Visit (Physician/[employer] ) Arrival Mode Ambulatory, Walker Transfer Assistance None Patient Identification Verified (Name & Yes ) Patient Requires Transmission-Based No Precautions Height and Weight Body Mass Index (BMI) 33.7 BMI Classification Obese Vital Signs Temperature (97.8 F-99.1 F) 98.5 F Temperature Source Temporal Pulse Rate (60-100) 68 Pulse Location Monitor Respiratory Rate (12-18) 18 Respiratory rate source Observation Oxygen Delivery Method Room Air Blood Pressure (90/60-120/80) 156/49 H Blood Pressure Mean (mm Hg) 84 Source Monitor Position Sitting Blood Pressure Location Left Arm History Since Last Visit- (Skip if this is Patient's initial visit) Have you changed medications since your No last visit? Any new allergies or adverse reactions No Had a fall/change in ADL's that may No increase risk of falls Signs or symptoms of abuse and/or No neglect since last visit Have you been in the hospital since your No last visit? Has dressing in place as prescribed Yes Has compression in place as prescribed Yes Has offloadiing in place as prescribed Yes Experienced any changes in pain level or No management Left Footwear Total Contact Cast Right Footwear Regular Shoe Pain Scale: 0-10 Numeric Is Patient Pain Free? Yes - Nurse 1 - General Ulcer Measurement Start: 11/21/20 10:13 Freq: Status: Active Protocol: Activity Type Activity Date Activity User E-Sign Co-Sign Detail Recorded Client Recorded Date Recorded By Document 11/21/20 10:13 [facility] [id number] 11/21/20 10:23 [facility] 11/21/20 10:13 Wound Center Nurse 1 #1 left heel CLUSTER -Combined with other wound No -Current Size (cm) - Length 1.5 -Current Size (cm) - Width 1.7 -Current Size (cm) - Depth 0.5 -Total Square Cm 2.55 -Photo Taken No -Epithelialization Small 1-33% -Tunneling No -Undermining/Tunneling Yes -Undermining/Tunneling Starts (O'clock 8 ) -Undermining/Tunneling Ends (O'clock) 1 -Maximum Distance (cm) 0.6 -Circular Undermining No -Exudate Amt Medium -Exudate Type Serosanguineous -Wound Margin Distinct, Outline Attached -Granulation Amt Large (67-100%) -Granulation Quality Pale,[place] -Slough/Fibrin Yes -Necrosis Amt Small (1-33%) -Necrotic Tissue Type Adherent Slough -Texture (Margaret-wound Skin Appearance) Callus -Moisture (Margaret-wound Skin Appearance) Assessed, Maceration -Color (Margaret-wound Skin Appearance) Assessed,Palor -Temperature (Margaret-wound Skin No Abnormality Appearance) (Pt Warm) -Tenderness on Palpation (Margaret-wound No Skin Appearance) -Ulcer Cleansing soapy water -Foul Odor after Cleansing No -Anesthetic Used 5% Lidocaine Gel WC - Nurse 2 - General Ulcer CM Notes Start: 11/21/20 10:13 Freq: Status: Active Protocol: Activity Type Activity Date Activity User E-Sign Co-Sign Detail Recorded Client Recorded Date Recorded By Document 11/21/20 10:35 [id number] 11/21/20 10:38 DANIEL 11/21/20 10:35 Wound Center Nurse 2 -Time 10:36 -Correct Patient Yes -Correct Side, Site, Position Yes -Correct Procedure Yes -Procedure Performed Yes -Type of Procedure Debridement -Clinical Debridement Subcutaneous -Tissue Removed Subcutaneous -Post Debridement (cm) - Length 1.6 -Post Debridement (cm) - Width 1.7 -Post Debridement (cm) - Depth 0.6 -Total Square (Post) (cm) 2.72 -Area of Debridement (cm) - Length 1.6 -Area of Debridement (cm) - Width 1.7 -Total Square (Area) (cm) 2.72 -Tunneling No -Undermining/Tunneling No -Circular Undermining No -Wound/Ulcer Outcome Not Healed -Ulcer Cleansing Rinsed/ Irrigated with Saline -Foul Odor after Cleansing No -Bioengineered Tissue No -Bleeding Controlled with Pressure -Offloading Yes -Type of Offloading Camwalker -Treatment Response Procedure Tolerated Well -Debridement - Subq, 1st 20sq cm Yes Pain Scale: 0-10 Numeric Is Patient Pain Free? Yes Wound debrided: Plantar heel Laterality: Left Wound Grade/Stage: Acevedo 1 Type of Debridement: Excisional debridement Anesthesia Used: 4% Lidocaine Solution Depth: in the subcutaneous layer Percentage of wound debrided: 100 Instrument Used: 3mm curette Tissue Removed: includes fibrous, devitalized, biofilm, callus and slough tissue Severity: Fat Layer Exposed Amount of bleeding with debridement: Mild Bleeding Controlled with: Pressure Patient tolerated procedure: Patient tolerated procedure well Assessment/Plan Assessment/Plan (1) Non-pressure chronic ulcer of left heel and midfoot with fat layer exposed: CODE(S): L97.422 - Non-pressure chronic ulcer of left heel and midfoot with fat layer exposed (2) Bilateral edema of lower extremity: CODE(S): R60.0 - Localized edema (3) Tobacco abuse: CODE(S): Z72.0 - Tobacco use (4) Obesity: CODE(S): E66.9 - Obesity, unspecified QUALIFIERS: Body mass index: BMI 33.0-33.9 Obesity classification: adult class 1 (BMI 30 - 34.9) Obesity type: due to excess calories Serious obesity comorbidity presence: with serious comorbidity Qualified Code(s): E66.09 - Other obesity due to excess calories; Z68.33 - Body mass index [BMI] 33.0-33.9, adult (5) Left foot pain: CODE(S): M79.672 - Pain in left foot PLAN: Patient seen and examined. Patient wound is noted to be larger from last week. Patient relates he has less pain from the wound. Ulcerations were sharply debrided after verbal consent was obtained from the patient. Was done without incident. Discussed importance of cleaning and maintaining foot both to prevent infection as well as to prevent future wounds. Discussed he is at higher risk for wounds due to his diabetes, neuropathy, hyperglycemia, obesity, swelling, and tabacco abuse. Discussed that he needs to cut back on his smoking and better controlling his blood sugar to better optimize his healing. Patient has not improved his tobacco abuse or his hyperglycemia. Patient is also noted to be rather active based on [id number] noted to his total contact cast. Reviewed how pressure will impact the wound. Discussed that this is why we are using TCC to help offload area Discussed importance of smoking cessation, blood sugar control, weight management, offloading, proper nutrition, and hygiene to optimize healing potential. He has a surgical modified to better offload the ulceration site. Patient is noted to be on 600 mg of gabapentin to control his neuropathy pain. This is managed by his PCP. Arterial and venous studies were reviewed. Showing likely adequate perfusion for healing. Patient relates he has been smoking since he was 10 years old. Discussed impact smoking has on his vessels as well as impact on wound healing. Patient relates that he is unwilling to quit entirely but he will try to cut back. He does not want any medical assistance at this process. Cultures obtained 10/24/2020 demonstrated rare Proteus Mirabella's, Enterococcus avium and Enterococcus for Cialis. Patient has finished course of antibiotics with resolution of infection symptoms Discussed various offloading options with patient. Discussed doing a cam boot as an offloading option due to would allow him to have more frequent dressing changes compared to the total contact cast especially as we are no longer doing epi fix grafting. Prescription for a Cam boot with offloading insert was given to the patient as well as a prescription for a knee scooter. Discussed the importance of offloading the areas as well as other things that are slowing down his healing process including his continued smoking and high blood sugars. Discussed following up with his PCP for better management of his blood sugars. Patient to start daily Payton dressing changes followed by dry sterile dressing and compression toes to knee All questions answered. Patient to follow up in 1 week. This note was generated with appweevration software. It may contain incorrect words, spelling, and punctuation that were not noted in checking the note before signing.
[2020-11-28 10:09] VITALS: BP 166/77; PULSE 58; RESP 18; TEMP 36.4; BMI 33.7
--- NOTE | 2020-11-28 10:50 | PN.PCM_ITS ---
History of Present Illness Date of Service: 11/28/20 Chief Complaint: left heel ulcer swelling calluses History of Wound: Patient presents for wound to left plantar foot. He is unsure how long it has been there as he can't see or reach his feet. He attributes this largely to his obesity. He relates that his daughter looked at his feet and saw the wound. He relates that his children live over an hour away and he lives alone. He relates some bloody drainage has been noted. He relates his daughter put a gauze over it secured with tape. Patient also complains of swelling to his legs, especially his left. He relates he has smoked since he was 10 years old. He is also diabetic with neuropathy and relates his last hemoglobin A1c was 9.6. He also has hypertension. Patient relates improvement in left heel pain when in total contact cast but that he feels unsteady and has fallen and does not wish to continue this Patient has also had recent admission to the hospital for hypoxemia and heart failure. Patient was noted to be discharged on oxygen therapy. Patient did not present to the clinic today on his oxygen. He relates that he is using 2 L while at home still. He relates no significant change after appointment with booking manager Progress of Wound: Stable Subjective Subjective Patient seen and examined resting comfortably. Patient denies any new pedal complaints. Patient denies any nausea, fever, chills, chest pain, shortness of breath, cough, streaking, purulence, vomiting. Patient reports that home health care is coming out 3 times a week Objective Data Objective Data Vital Signs: Vital Signs Temp Pulse Resp BP 97.5 F L 58 L 18 166/77 H 11/28/20 10:11/28/20 10:09 11/28/20 10:11/28/20 10:09 Oxygen Delivery Method Room Air Body Mass Index (BMI) 33.7 Physical Exam Narrative Const alert and no apparent distress General Appearance: cooperative and comfortable Resp normal respiratory effort Effort and Inspection: able to speak in complete sentences Extremity no calf tenderness, negative milo and draper sign lower extremity edema left worse than right General Extremity: tenderness to palpation of ulceration and posterior heel; Negative for clubbing or cyanosis or ecchymosis or erythema Vasc Peripheral Pulses: posterior tibial pulses present but diminished and dorsalis pedis pulses present but diminished, normal capillary refill, no acute ischemic skin changes noted, normal temperature Skin General Skin Exam: dry skin, decreased hair growth noted; Negative for ecchymosis, eschar, pallor, rashes Wound Narrative: ulcer noted to plantar left heel No malodor, purulence, probing to bone, streaking, fluctuation, crepitus, erythema or other signs of infection. No periwound maceration noted. Skin is atrophic and hairless. Granular and fat base. Mild buildup of callus noted periwound. Pain to palpation of left heel, improved. Wound goes to level of fat. Edema noted to left lower extremity. Diffuse calluses noted to plantar medial posterior and lateral heel chronic Neuro Gait (Neuro): heel to toe Sensory Exam: extremities light-touch: decreased MSK Motor Exam: strength 5/5 throughout, ROM to foot and ankle joints within normal limits Psych Appearance: appropriate Attitude: calm Debridement Note Debridement Note Post-Debridement Measurements and Additional Note: Post-Debridement Measurements/Treatment - Nurse 1 - General Ulcer Assessment Start: 11/21/20 10:13 Freq: Status: Active Protocol: EVELYN Activity Type Activity Date Activity User E-Sign Co-Sign Detail Recorded Client Recorded Date Recorded By Document 11/21/20 10:13 [facility] [id number] 11/21/20 10:23 [facility] Document 11/28/20 10:09 [facility] [id number] 11/28/20 10:22 [facility] 11/21/20 11/28/20 10:13 10:09 - Today's Visit Information Type of service Follow-up Visit Follow-up Visit (Physician/SECTION 8 PROPERTY MANAGER (Physician/SECTION 8 PROPERTY MANAGER ) ) Arrival Mode Ambulatory, Ambulatory, Walker Walker Transfer Assistance None None Patient Identification Verified (Name & Yes Yes ) Patient Requires Transmission-Based No No Precautions Height and Weight Body Mass Index (BMI) 33.7 33.7 BMI Classification Obese Obese Vital Signs Temperature (97.8 F-99.1 F) 98.5 F 97.5 F L Temperature Source Temporal Temporal Pulse Rate (60-100) 68 58 L Pulse Location Monitor Monitor Respiratory Rate (12-18) 18 18 Respiratory rate source Observation Observation Oxygen Delivery Method Room Air Room Air Blood Pressure (90/60-120/80) 156/49 H 166/77 H Blood Pressure Mean (mm Hg) 84 106 Source Monitor Monitor Position Sitting Sitting Blood Pressure Location Left Arm Left Arm History Since Last Visit- (Skip if this is Patient's initial visit) Have you changed medications since your No No last visit? Any new allergies or adverse reactions No No Had a fall/change in ADL's that may No No increase risk of falls Signs or symptoms of abuse and/or No No neglect since last visit Have you been in the hospital since your No No last visit? Has dressing in place as prescribed Yes Yes Has compression in place as prescribed Yes Yes Has offloadiing in place as prescribed Yes N/A Experienced any changes in pain level or No No management Left Footwear Total Contact Regular Shoe Cast Right Footwear Regular Shoe Regular Shoe Pain Scale: 0-10 Numeric Is Patient Pain Free? Yes Yes WC - Nurse 1 - General Ulcer Measurement Start: 11/21/20 10:13 Freq: Status: Active Protocol: Activity Type Activity Date Activity User E-Sign Co-Sign Detail Recorded Client Recorded Date Recorded By Document 11/21/20 10:13 [facility] [id number] 11/21/20 10:23 [employer] Document 11/28/20 10:09 [facility] [id number] 11/28/20 10:22 [facility] 11/21/20 11/28/20 10:13 10:09 Wound Center Nurse 1 #1 left heel CLUSTER -Combined with other wound No No -Current Size (cm) - Length 1.5 1.6 -Current Size (cm) - Width 1.7 1.7 -Current Size (cm) - Depth 0.5 0.4 -Total Square Cm 2.55 2.72 -Photo Taken No No -Epithelialization Small 1-33% None Present -Tunneling No No -Undermining/Tunneling Yes Yes -Undermining/Tunneling Starts (O'clock 8 1 ) -Undermining/Tunneling Ends (O'clock) 1 4 -Maximum Distance (cm) 0.6 0.5 -Circular Undermining No No -Exudate Amt Medium Large -Exudate Type Serosanguineous Serosanguineous -Wound Margin Distinct, Thickened & Outline Rolled Under Attached -Granulation Amt Large (67-100%) Large (67-100%) -Granulation Quality Pale,Seward Pale,Red -Slough/Fibrin Yes Yes -Necrosis Amt Small (1-33%) Small (1-33%) -Necrotic Tissue Type Adherent Slough Adherent Slough -Texture (Margaret-wound Skin Appearance) Callus Assessed,Callus ,Scarring -Moisture (Margaret-wound Skin Appearance) Assessed, Assessed,Dry/ Maceration Scaly -Color (Margaret-wound Skin Appearance) Assessed,Palor Assessed -Temperature (Margaret-wound Skin No Abnormality No Abnormality Appearance) (Pt Warm) (Pt Warm) -Tenderness on Palpation (Margaret-wound No No Skin Appearance) -Ulcer Cleansing soapy water SOAPY WATER -Foul Odor after Cleansing No No -Anesthetic Used 5% Lidocaine 5% Lidocaine Gel Gel Lower Limb Edema Present Yes Left Calf (cm) 42 Left Ankle (cm) 26.6 WC - Nurse 2 - General Ulcer CM Notes Start: 11/21/20 10:13 Freq: Status: Active Protocol: Activity Type Activity Date Activity User E-Sign Co-Sign Detail Recorded Client Recorded Date Recorded By Document 11/21/20 10:35 [id number] 11/21/20 10:38 JF Document 11/28/20 10:30 MW [id number] 11/28/20 10:33 MW 11/21/20 11/28/20 10:35 10:30 Wound Center Nurse 2 #1 left heel CLUSTER -Time 10:36 10:30 -Correct Patient Yes Yes -Correct Side, Site, Position Yes Yes -Correct Procedure Yes Yes -Procedure Performed Yes Yes -Type of Procedure Debridement Debridement -Clinical Debridement Subcutaneous Subcutaneous -Tissue Removed Subcutaneous Subcutaneous -Post Debridement (cm) - Length 1.6 1.7 -Post Debridement (cm) - Width 1.7 1.1 -Post Debridement (cm) - Depth 0.6 0.6 -Total Square (Post) (cm) 2.72 1.87 -Area of Debridement (cm) - Length 1.6 1.7 -Area of Debridement (cm) - Width 1.7 1.1 -Total Square (Area) (cm) 2.72 1.87 -Tunneling No No -Undermining/Tunneling No No -Circular Undermining No No -Wound/Ulcer Outcome Not Healed Not Healed -Ulcer Cleansing Rinsed/ Rinsed/ Irrigated with Irrigated with Saline Saline -Foul Odor after Cleansing No No -Bioengineered Tissue No No -Bleeding Controlled with Pressure Pressure -Offloading Yes No -Type of Offloading Camwalker -Treatment Response Procedure Procedure Tolerated Well Tolerated Well -Debridement - Subq, 1st 20sq cm Yes Yes Pain Scale: 0-10 Numeric Is Patient Pain Free? Yes Yes WC - Nurse 3 - General Ulcer D/C NN Start: 11/21/20 10:13 Freq: Status: Active Protocol: Activity Type Activity Date Activity User E-Sign Co-Sign Detail Recorded Client Recorded Date Recorded By Document 11/28/20 10:33 MW [id number] 11/28/20 10:35 MW 11/28/20 10:33 Wound Care Nurse 3 #1 left heel CLUSTER -Ulcer Cleansing Rinsed/ Irrigated with Saline -Foul Odor after Cleansing No -Negative Pressure Wound Therapy N/A -Primary Dressing Applied Promogran Payton Matter -Primary Dressing Covered/Secured with Dry Gauze & Roll Gauze, Secured with Tape -Promogran Payton Matter 1 Right -Lotion applied to leg before No compression wrap -Tubular Bandage Double Layer -Size of Tubigrip Used Size E -Size E ($) 2 Left -Lotion applied to leg before Yes compression wrap -Tubular Bandage Double Layer -Size of Tubigrip Used Size E -Size E ($) 2 -Stockings No Treatment Response Procedure Tolerated Well Pain Scale: 0-10 Numeric Is Patient Pain Free? Yes Teaching: Wound Center Dressing Your Wound -Person Taught Patient -Teaching Method Discussion, Demonstration -Response to teaching Verbalize understanding WC - Visit Discharge Discharge Condition Stable Ambulatory Status Ambulatory, Walker Transportation Private Auto Accompanied by SELF Medication Reconcilliation completed & No provided to patient/care provider Clinical Summary of Care Provided Yes Wound debrided: Plantar heel Laterality: Left Wound Grade/Stage: Acevedo 1 Type of Debridement: Excisional debridement Anesthesia Used: 4% Lidocaine Solution Depth: in the subcutaneous layer Percentage of wound debrided: 100 Instrument Used: #15 blade Tissue Removed: includes fibrous, devitalized, biofilm, callus and slough tissue Severity: Fat Layer Exposed Amount of bleeding with debridement: Mild Bleeding Controlled with: Pressure Patient tolerated procedure: Patient tolerated procedure well Assessment/Plan Assessment/Plan (1) Non-pressure chronic ulcer of left heel and midfoot with fat layer exposed: CODE(S): L97.422 - Non-pressure chronic ulcer of left heel and midfoot with fat layer exposed (2) Bilateral edema of lower extremity: CODE(S): R60.0 - Localized edema (3) Tobacco abuse: CODE(S): Z72.0 - Tobacco use (4) Obesity: CODE(S): E66.9 - Obesity, unspecified QUALIFIERS: Obesity type: due to excess calories Obesity classification: adult class 1 (BMI 30 - 34.9) Serious obesity comorbidity presence: with serious comorbidity Body mass index: BMI 33.0-33.9 Qualified Code(s): E66.09 - Other obesity due to excess calories; Z68.33 - Body mass index [BMI] 33.0-33.9, adult (5) Left foot pain: CODE(S): M79.672 - Pain in left foot (6) Delayed wound healing: CODE(S): T14.8XXD - Other injury of unspecified body region, subsequent encounter PLAN: Patient seen and examined. Patient wound is noted to be stable. Patient relates he has less pain from the wound. He presents today in crocs shoes. Ulcerations were sharply debrided after verbal consent was obtained from the patient. Was done without incident. Discussed importance of cleaning and maintaining foot both to prevent infection as well as to prevent future wounds. Discussed he is at higher risk for wounds due to his diabetes, neuropathy, hyperglycemia, obesity, swelling, and tabacco abuse. Discussed that he needs to cut back on his smoking and better controlling his blood sugar to better optimize his healing. Patient has not improved his tobacco abuse or his hyperglycemia. Patient is also noted to be rather active based on self reporting. Reviewed how pressure will impact the wound. Patient noted to have offloading surgical shoe. He did not have good tolerance of the total contact cast. Patient also failed to demonstrate significant improvement with epi fix grafting. Patient is noted to be on 600 mg of gabapentin to control his neuropathy pain. This is managed by his PCP. Arterial and venous studies were reviewed. Showing likely adequate perfusion for healing. Patient relates he has been smoking since he was 10 years old. Discussed impact smoking has on his vessels as well as impact on wound healing. Patient relates that he is unwilling to quit entirely but he will try to cut back. He does not want any medical assistance at this process. Discussed various offloading options with patient. Discussed doing a cam boot as an offloading option due to would allow him to have more frequent dressing changes compared to the total contact cast especially as we are no longer doing epi fix grafting. Prescription for a Cam boot with offloading insert was given to the patient as well as a prescription for a knee scooter was given last week. Patient has yet to fill. Discussed the importance of offloading the areas as well as other things that are slowing down his healing process including his continued smoking and high blood sugars. Discussed following up with his PCP for better management of his blood sugars. Patient to start daily Payton dressing changes with A&E ointment to lower extremities followed by dry sterile dressing and double Tubigrip compression toes to knee Discussed the patient needs to start working with us in order to be better compliant for wound to continue healing All questions answered. Patient to follow up in 3 week. This note was generated with [employer] dictation software. It may contain incorrect words, spelling, and punctuation that were not noted in checking the note before signing.
== END 2020-12-16 23:59 ==
LOC: WC 10:00
PROVIDERS: Referring Provider Podiatrist Foot & Ankle Surgery; Visit Provider Podiatrist Foot & Ankle Surgery
DX: E11.621 Type 2 diabetes mellitus with foot ulcer (principal); I11.0 Hypertensive heart disease with heart failure; I50.9 Heart failure, unspecified; F17.200 Nicotine dependence, unspecified, uncomplicated; E66.9 Obesity, unspecified; M79.89 Other specified soft tissue disorders; Z68.33 Body mass index [BMI] 33.0-33.9, adult; L97.422 Non-pressure chronic ulcer of left heel and midfoot with fat layer exposed; E11.40 Type 2 diabetes mellitus with diabetic neuropathy, unspecified
CPT/HCPCS: 11042

== ENCOUNTER 2021-01-16 09:30 | Outpatient (RCR) | payer MEDICARE, BC, SELFPAY ==
[2020-12-17 00:26] VITALS: BP 166/77; PULSE 58; RESP 18; TEMP 36.4
[2020-12-19 10:22] VITALS: BP 137/76; PULSE 62; RESP 18; TEMP 36.2; BMI 33.7
--- NOTE | 2020-12-19 11:20 | PCM.WC.PN ---
History of Present Illness Date of Service: 12/19/20 Chief Complaint: left heel ulcer swelling calluses History of Wound: Patient presents for chronic nonhealing wound to left plantar foot. He is unsure how long it has been there as he can't see or reach his feet. He attributes this largely to his obesity. Patient also has significant swelling to his legs, especially his left. He relates he has smoked since he was 10 years old. He also has significant medical history of tobacco abuse, obesity, CAMACHO, edema, COPD, hypercapnia, diabetes with neuropathy. Patient has also had admission to the hospital for hypoxemia and heart failure in August 2020. Patient was noted to be discharged on oxygen therapy. Patient did not present to the clinic today on his oxygen again. He relates that executive coordinator recommends he is use 2 L of oxygen Progress of Wound: Worsening Subjective Subjective Patient seen and examined resting comfortably. Patient denies any new pedal complaints. Patient denies any nausea, fever, chills, chest pain, shortness of breath, cough, streaking, purulence, vomiting. Patient relates pain to his heel Objective Data Objective Data Vital Signs: Vital Signs Temp Pulse Resp BP 97.2 F L 62 18 137/76 H 12/19/20 10:22 12/19/20 10:22 12/19/20 10:22 12/19/20 10:22 Oxygen Delivery Method Room Air Body Mass Index (BMI) 33.7 Lab / Micro Data Result Diagrams: 12/19/20 12:12 12/19/20 12:12 Micro: Microbiology 12/19/20 10:52 Wound Abcess - Heel, Left Gram Stain - Final 12/19/20 10:52 Wound Abcess - Heel, Left Wound Culture - Final Proteus mirabilis 12/19/20 10:52 Wound Abcess - Heel, Left Anaerobic Culture - Preliminary Checking for anaerobes, further studies to follow. Physical Exam Narrative Const alert and no apparent distress General Appearance: cooperative and comfortable Resp normal respiratory effort Effort and Inspection: able to speak in complete sentences Extremity no calf tenderness, negative milo and draper sign lower extremity edema left worse than right General Extremity: Negative for clubbing or cyanosis or ecchymosis or erythema Vasc Peripheral Pulses: posterior tibial pulses present but diminished and dorsalis pedis pulses present but diminished, normal capillary refill, no acute ischemic skin changes noted, normal temperature Skin General Skin Exam: dry skin, decreased hair growth noted; Negative for ecchymosis, eschar, pallor, rashes Nails 1 2 3 4 5 bilaterally are thickened elongated dystrophic discolored. Significant callus buildup noted to posterior medial and lateral heel as well as to periulcerative area left foot. Wound Narrative: ulcer noted to plantar left heel Mild malodor. No purulence, probing to bone, streaking, fluctuation, crepitus. There is mild tunneling noted. Skin is its normal color. Mild periwound maceration noted. Skin is atrophic and hairless. Granular and fat base with some areas of rose necrotic fat. Serous sanguinous drainage. Significant buildup of callus noted periwound as well as to posterior medial and lateral heel in general. Pain to palpation of left heel. Wound goes to level of fat some rose tissue noted. Neuro Gait (Neuro): heel to toe Sensory Exam: extremities light-touch: decreased MSK Motor Exam: strength 5/5 throughout, ROM to foot and ankle joints within normal limits Psych Appearance: appropriate Attitude: calm Debridement Note Debridement Note Post-Debridement Measurements and Additional Note: Post-Debridement Measurements/Treatment - Nurse 1 - General Ulcer Assessment Start: 12/19/20 10:21 Freq: Status: Active Protocol: [email or web address].[email or web address] Activity Type Activity Date Activity User E-Sign Co-Sign Detail Recorded Client Recorded Date Recorded By Document 12/19/20 10:22 CORRINE [id number] 12/19/20 10:31 MW 12/19/20 10:22 - Today's Visit Information Type of service Follow-up Visit (Physician/BAR WELDER ) Arrival Mode Ambulatory, Walker Transfer Assistance None Accompanied by self Patient Identification Verified (Name & Yes ) Patient Requires Transmission-Based No Precautions Safety Precautions Fall Prevention Finger Stick Blood Sugar(mg/dl) (if 138 indicated): Blood Sugar Stated by Patient Height and Weight Body Mass Index (BMI) 33.7 BMI Classification Obese Vital Signs Temperature (97.8 F-99.1 F) 97.2 F L Temperature Source Temporal Pulse Rate (60-100) 62 Pulse Location Monitor Respiratory Rate (12-18) 18 Respiratory rate source Observation Oxygen Delivery Method Room Air Blood Pressure (90/60-120/80) 137/76 H Blood Pressure Mean (mm Hg) 96 Source Monitor Position Sitting Blood Pressure Location Left Arm History Since Last Visit- (Skip if this is Patient's initial visit) Have you changed medications since your No last visit? Any new allergies or adverse reactions No Had a fall/change in ADL's that may No increase risk of falls Signs or symptoms of abuse and/or No neglect since last visit Have you been in the hospital since your No last visit? Has dressing in place as prescribed Yes Has compression in place as prescribed Yes Has offloadiing in place as prescribed N/A Experienced any changes in pain level or No management Left Footwear Regular Shoe Right Footwear Regular Shoe Pain Scale: 0-10 Numeric Is Patient Pain Free? Yes JANESSA - Nurse 1 - General Ulcer Measurement Start: 12/19/20 10:21 Freq: Status: Active Protocol: Activity Type Activity Date Activity User E-Sign Co-Sign Detail Recorded Client Recorded Date Recorded By Document 12/19/20 10:22 CORRINE [id number] 12/19/20 10:31 MW 12/19/20 10:22 Wound Center Nurse 1 #1 left heel CLUSTER -Current Size (cm) - Length 1.5 -Current Size (cm) - Width 1.5 -Current Size (cm) - Depth 0.5 -Total Square Cm 2.25 -Photo Taken No -Exudate Amt Medium -Exudate Type Serosanguineous -Wound Margin Distinct, Outline Attached -Granulation Amt Large (67-100%) -Granulation Quality Red -Necrosis Amt Small (1-33%) -Necrotic Tissue Type Adherent Slough -Structure Exposed N/A -Texture (Margaret-wound Skin Appearance) Scarring -Moisture (Margaret-wound Skin Appearance) Maceration -Color (Margaret-wound Skin Appearance) Hemosiderin Staining -Temperature (Margaret-wound Skin No Abnormality Appearance) (Pt Warm) -Tenderness on Palpation (Margaret-wound No Skin Appearance) -Ulcer Cleansing Wound Cleanser -Foul Odor after Cleansing No -Anesthetic Used 5% Lidocaine Gel Right Calf (cm) 43.2 Right Ankle (cm) 25.6 Left Calf (cm) 44.5 Left Ankle (cm) 26.5 JANESSA - Nurse 2 - General Ulcer CM Notes Start: 12/19/20 10:21 Freq: Status: Active Protocol: Activity Type Activity Date Activity User E-Sign Co-Sign Detail Recorded Client Recorded Date Recorded By Document 12/19/20 10:49 DANIEL [id number] 12/19/20 11:02 JF 12/19/20 10:49 Wound Center Nurse 2 #1 left heel CLUSTER -Time 11:01 -Correct Patient Yes -Correct Side, Site, Position Yes -Correct Procedure Yes -Procedure Performed Yes -Type of Procedure Debridement -Clinical Debridement Subcutaneous -Tissue Removed Subcutaneous -Post Debridement (cm) - Length 1.8 -Post Debridement (cm) - Width 2 -Post Debridement (cm) - Depth 1 -Total Square (Post) (cm) 3.6 -Area of Debridement (cm) - Length 1.8 -Area of Debridement (cm) - Width 2 -Total Square (Area) (cm) 3.6 -Undermining/Tunneling No -Circular Undermining No -Wound/Ulcer Outcome Not Healed -Ulcer Cleansing Rinsed/ Irrigated with Saline -Foul Odor after Cleansing No -Bioengineered Tissue No -Bleeding Controlled with Pressure -Offloading No -Treatment Response Procedure Tolerated Well -Debridement - Subq, 1st 20sq cm Yes Pain Scale: 0-10 Numeric Is Patient Pain Free? Yes WC - Nurse 3 - General Ulcer D/C NN Start: 12/19/20 10:21 Freq: Status: Active Protocol: Activity Type Activity Date Activity User E-Sign Co-Sign Detail Recorded Client Recorded Date Recorded By Document 12/19/20 11:29 MW [id number] 12/19/20 11:30 MW 12/19/20 11:29 Wound Care Nurse 3 #1 left heel CLUSTER -Ulcer Cleansing Rinsed/ Irrigated with Saline -Foul Odor after Cleansing No -Negative Pressure Wound Therapy N/A -Primary Dressing Applied Promogran Payton Matter -Primary Dressing Covered/Secured with Dry Gauze & Roll Gauze, Secured with Tape -Promogran Payton Matter 1 Right -Lotion applied to leg before No compression wrap -Tubular Bandage Single Layer -Size of Tubigrip Used Size E -Size E ($) 1 Left -Lotion applied to leg before No compression wrap -Compression Wrap Kevin Wrap -Tubular Bandage Single Layer -Size of Tubigrip Used Size E -Size E ($) 1 Treatment Response Procedure Tolerated Well Pain Scale: 0-10 Numeric Is Patient Pain Free? Yes Teaching: Wound Center Dressing Your Wound -Person Taught Patient -Teaching Method Discussion, Demonstration -Response to teaching Verbalize understanding WC - Visit Discharge Discharge Condition Stable Ambulatory Status Ambulatory Transportation Private Auto Accompanied by self Medication Reconcilliation completed & No provided to patient/care provider Clinical Summary of Care Provided Yes Wound debrided: Plantar heel Laterality: Left Wound Grade/Stage: Acevedo 1 Type of Debridement: Excisional debridement Anesthesia Used: 4% Lidocaine Solution Depth: in the subcutaneous layer Percentage of wound debrided: 100 Instrument Used: #15 blade Tissue Removed: includes fibrous, devitalized, biofilm, callus and slough tissue Severity: Fat Layer Exposed Amount of bleeding with debridement: Mild Bleeding Controlled with: Pressure Patient tolerated procedure: Patient tolerated procedure well Assessment/Plan Assessment/Plan (1) Non-pressure chronic ulcer of left heel and midfoot with fat layer exposed: CODE(S): L97.422 - Non-pressure chronic ulcer of left heel and midfoot with fat layer exposed (2) Cellulitis of left foot: CODE(S): L03.116 - Cellulitis of left lower limb (3) Type 2 diabetes mellitus with diabetic polyneuropathy: CODE(S): E11.42 - Type 2 diabetes mellitus with diabetic polyneuropathy QUALIFIERS: Diabetes mellitus [employer] insulin use: with usp use Qualified Code(s): E11.42 - Type 2 diabetes mellitus with diabetic polyneuropathy; Z79.4 - FPC (current) use of insulin (4) Left foot pain: CODE(S): M79.672 - Pain in left foot (5) Bilateral edema of lower extremity: CODE(S): R60.0 - Localized edema (6) Tobacco abuse: CODE(S): Z72.0 - Tobacco use (7) Obesity: CODE(S): E66.9 - Obesity, unspecified QUALIFIERS: Obesity type: due to excess calories Obesity classification: adult class 1 (BMI 30 - 34.9) Serious obesity comorbidity presence: with serious comorbidity Body mass index: BMI 33.0-33.9 Qualified Code(s): E66.09 - Other obesity due to excess calories; Z68.33 - Body mass index [BMI] 33.0-33.9, adult (8) Delayed wound healing: CODE(S): T14.8XXD - Other injury of unspecified body region, subsequent encounter (9) Tinea unguium: CODE(S): B35.1 - Tinea unguium (10) Corns and callosities: CODE(S): L84 - Corns and callosities PLAN: Patient seen and examined. Patient wound is noted to have worsened. We will proceed with palliative care, as well as monitoring. Foot care and footgear has been discussed[place] [address] bilateral toenails, with a nail nipper and both length and thickness by angling nail nippers. This was done without incident. Calluses noted to left posterior medial lateral heel were also sharply debrided with a #15 blade without incident. This needs to be done by a medical professional given patient's neuropathy status at high risk for future ulcerations. With worsening of the wound along with malodor new culture was obtained of the wound today 12/19/2020. Patient is also given a prescription for x-ray, CMP, CBC, ESR, CRP, free albumin, hemoglobin A1c. Patient was noted to have elevated bun, creatinine, glucose, ALK, CRP 17.6, ESR 23, hemoglobin A1c of 10.3% which is up from 8.7% 09/06/2020. Patient is also noted to have low levels of GFR, albumin at 2.9, gap, prealbumin 14.6. X-ray did not show evidence of osteomyelitis. Patient was called with the results and was encouraged to follow-up with primary care provider. Ulcerations were sharply debrided after verbal consent was obtained from the patient. Was done without incident. Discussed importance of cleaning and maintaining foot both to prevent infection as well as to prevent future wounds. Discussed he is at higher risk for wounds due to his diabetes, neuropathy, hyperglycemia, obesity, swelling, and tabacco abuse. Discussed that he needs to cut back on his smoking and better controlling his blood sugar to better optimize his healing. Patient has not improved his tobacco abuse or his hyperglycemia and does not show incentive to begin changing these habits. Patient is also noted to be rather active based on self reporting. Reviewed how pressure will impact the wound. Patient noted to have offloading surgical shoe. He did not have good tolerance of the total contact cast. He does not always wear his offloading shoes. Patient also failed to demonstrate significant improvement with epi fix grafting. Discussed at length with the patient that he is likely being too active just given the amount of callus buildup noted to his foot. Discussed how every step adds up to delaying healing. Patient is noted to be on 600 mg of gabapentin to control his neuropathy pain. This is managed by his PCP. Arterial and venous studies were reviewed. Showing likely adequate perfusion for healing. Patient relates he has been smoking since he was 10 years old. Discussed impact smoking has on his vessels as well as impact on wound healing. Patient relates that he is unwilling to quit entirely but he will try to cut back. He does not want any medical assistance at this process. Discussed various offloading options with patient. Discussed doing a cam boot as an offloading option due to would allow him to have more frequent dressing changes compared to the total contact cast especially as we are no longer doing epi fix grafting. Prescription for a Cam boot with offloading insert was given to the patient as well as a prescription for a knee scooter was given last week. Patient has yet to fill. Discussed the importance of offloading the areas as well as other things that are slowing down his healing process including his continued smoking and high blood sugars. Discussed following up with his PCP for better management of his blood sugars. Patient to start daily Payton dressing changes with A&E ointment to lower extremities followed by dry sterile dressing and double Tubigrip compression toes to knee Discussed the patient needs to start working with us in order to be better compliant for wound to continue healing. Patient seemed to have trouble understanding concepts of proper wound care healing. Discussed possible biopsy or MRI if continued nonhealing is noted. Discussed going up palliative care route in regards to his wound healing as patient is not able to work with us to improve comorbidities such as smoking blood sugar and poor nutrition etc. Patient is also noted to have been given a prescription for a Cam boot in order to better offload the heel. Patient states that he refuses to go pick this up as he cannot be bothered to go 10 minutes to my office where they could distribute the cam boot with offloading insert. Patient is currently using a roller aid to try and offload the area and assist in ambulation. All questions answered. Patient to follow up in 3 week. This note was generated with [employer] dictation software. It may contain incorrect words, spelling, and punctuation that were not noted in checking the note before signing. 20 to 29 minutes was spent on this encounter. This included both face to face and non face to face care, which includes but not limited to time preparing for the visit (which includes but not limited to reviewing medical record, any pertinent paperwork, as well as previous imaging and/or test results), reviewing/obtaining the noted history, performing the noted examination, counseling and providing education to the patient as well as to patient's family and/or patient caregivers per patient request. This also includes ordering any medication(s), test(s), and/or procedure(s) as indicated and as documented in the medical record, interpreting / sharing this information when indicated (and with patient's permission) as documented, communicating with other healthcare providers as needed/as requested, the time documenting information in the medical record, as well as any further care coordination.
--- NOTE | 2020-12-19 11:52 | RAD_ITS ---
STUDY: X-RAY - LEFT FOOT CLINICAL: Left heel ulcer, evaluate for osteomyelitis. TECHNIQUE: 3 view(s) of the foot. COMPARISON: Radiographs 08/04/2020. FINDINGS: Normal talus, calcaneus, and tarsal bones. Normal visualized subtalar, talonavicular, calcaneocuboid, tarsal and tarsometatarsal articulations. Normal metatarsi. Normal metatarsophalangeal joint of the great toe. Normal tibial and fibular sesamoid bones. Normal interphalangeal joint of the great toe. Normal phalanges of the great toe. Normal second through fifth metatarsophalangeal joints. Normal interphalangeal joints and phalanges of the lesser toes. The soft tissue structures are unremarkable. RAD/Foot min 3 Views IMPRESSION: No demonstrated active bone destruction. Electronically Signed: Az Church MD at 15:00 EDT Tel , Service support ,
[2020-12-19 12:35] LABS: Erythrocyte Sedimentation Rate 23 mm/hr (0-20)
[2020-12-19 12:38] LABS: Hemoglobin 16.2 g/dL (13.0-16.5); Mean Corp Hgb Conc 31.2 g/dL (32-36); Mean Corpuscular Hgb 28.1 pg (27.0-32.0); Mean Corpuscular Volume 90.1 fL (80-94); Platelet Count 169 K/mm3 (150-450); RBC Distribution Width CV 15.2 % (11.6-14.6); RBC Distribution Width SD 50.1 fl (35.1-43.9); Red Blood Count 5.77 M/mm3 (4.6-6.2); White Blood Count 9.2 K/mm3 (4.4-11.0)
[2020-12-19 13:14] LABS: ALB/GLOB Ratio 0.7 RATIO (0.9-2.4); AST(SGOT) 16 U/L (15-37); Alanine Aminotransfer ALT/SGPT 29 U/L (16-61); Albumin, Serum 2.9 g/dL (3.2-5.0); Alkaline Phosphatase 124 U/L (45-117); Anion Gap 2 (5-15); BUN 26 mg/dL (7-18); BUN/Creat Ratio 11.4 RATIO (10-20); Calcium,Total 8.7 mg/dL (8.5-10.1); Chloride 103 mmol/L (98-107); Creatinine, Serum 2.29 mg/dL (0.70-1.30); EST Glomerular Filtration Rate 30 mL/min (>60); Est Glom Filt Rate - Afr Amer 37 mL/min (>60); Globulin 3.9 g/dL (2.2-4.2); Glucose 273 mg/dL (74-106); Potassium 4.5 mmol/L (3.5-5.1); Prealbumin 14.6 mg/dL (20.0-40.0); Protein, Total 6.8 g/dL (6.4-8.2); Sodium Level 137 mmol/L (136-145)
[2020-12-19 14:27] LABS: Hemoglobin A1c 10.3 % (3.8-5.6)
[2020-12-19 15:53] LABS: M R Staph aureus DNA By PCR Negative (Negative); Probe Check PASS; Specimen Processing Control PASS; Staph aureus DNA By PCR NEGATIVE (Negative)
[2021-01-02 10:12] VITALS: BP 145/71; PULSE 81; TEMP 36.2; BMI 33.7
--- NOTE | 2021-01-02 11:54 | PN.PCM_ITS ---
History of Present Illness Date of Service: 01/02/21 Chief Complaint: left heel ulcer swelling calluses History of Wound: Patient presents for chronic nonhealing wound to left plantar foot. He is unsure how long it has been there as he can't see or reach his feet. He attributes this largely to his obesity. Patient also has significant swelling to his legs, especially his left. He relates he has smoked since he was 10 years old. He also has significant medical history of tobacco abuse, obesity, CAMACHO, edema, COPD, hypercapnia, diabetes with neuropathy. Patient has also had admission to the hospital for hypoxemia and heart failure in August 2020. Patient was noted to be discharged on oxygen therapy. Patient did not present to the clinic today on his oxygen again. He relates that pumping station engineer recommends he is use 2 L of oxygen. Patient has not been using this. Patient is noted to have significant delayed healing. Is most likely due to his comorbidities including uncontrolled diabetes, morbid obesity, tobacco abuse. Patient seems reluctant to have these factors better controlled in order to promote wound healing. Progress of Wound: Stable Subjective Subjective Patient seen and examined resting comfortably. Patient denies any new pedal complaints. Patient denies any nausea, fever, chills, chest pain, shortness of breath, cough, streaking, purulence, vomiting. He relates pain in his heel. Objective Data Objective Data Vital Signs: Vital Signs Temp Pulse Resp BP 97.2 F L 81 18 145/71 H 01/02/21 10:12 01/02/21 10:12 12/19/20 10:22 01/02/21 10:12 Oxygen Delivery Method Room Air Body Mass Index (BMI) 33.7 Lab / Micro Data Result Diagrams: 12/19/20 12:12 12/19/20 12:12 Micro: Microbiology 12/19/20 10:52 Wound Abcess - Heel, Left Gram Stain - Final 12/19/20 10:52 Wound Abcess - Heel, Left Wound Culture - Final Proteus mirabilis 12/19/20 10:52 Wound Abcess - Heel, Left Anaerobic Culture - Final Anaerobic cocci Physical Exam Narrative Const alert and no apparent distress General Appearance: cooperative and comfortable Resp normal respiratory effort Effort and Inspection: able to speak in complete sentences Extremity no calf tenderness, negative milo and draper sign lower extremity edema left worse than right General Extremity: Negative for clubbing or cyanosis or ecchymosis or erythema Vasc Peripheral Pulses: posterior tibial pulses present but diminished and dorsalis pedis pulses present but diminished, normal capillary refill, no acute ischemic skin changes noted, normal temperature Skin General Skin Exam: dry skin, decreased hair growth noted; Negative for ecchymosis, eschar, pallor, rashes Wound Narrative: ulcer noted to plantar left heel No malodor. No purulence, probing to bone, streaking, fluctuation, crepitus. Skin is its normal color. Mild periwound maceration noted. Skin is atrophic and hairless. Granular and fat base. Serous sanguinous drainage. Significant buildup of callus noted periwound as well as to posterior medial and lateral heel in general. Pain to palpation of left heel. Wound is to level of fat. Neuro Gait (Neuro): heel to toe Sensory Exam: extremities light-touch: decreased MSK Motor Exam: strength 5/5 throughout, ROM to foot and ankle joints within normal limits Psych Appearance: appropriate Attitude: calm Debridement Note Debridement Note Post-Debridement Measurements and Additional Note: Post-Debridement Measurements/Treatment - Nurse 1 - General Ulcer Assessment Start: 12/19/20 10:21 Freq: Status: Active Protocol: [email or web address] Activity Type Activity Date Activity User E-Sign Co-Sign Detail Recorded Client Recorded Date Recorded By Document 12/19/20 10:22 MW [id number] 12/19/20 10:31 MW Document 01/02/21 10:12 KR [id number] 01/02/21 10:16 KR 12/19/20 01/02/21 10:22 10:12 - Today's Visit Information Type of service Follow-up Visit Follow-up Visit (Physician/CAVING GUIDE (Physician/CAVING GUIDE ) ) Arrival Mode Ambulatory, Walker Walker Transfer Assistance None Accompanied by self Patient Identification Verified (Name & Yes Yes ) Patient Requires Transmission-Based No Precautions Safety Precautions Fall Prevention Finger Stick Blood Sugar(mg/dl) (if 138 indicated): Blood Sugar Stated by Patient Height and Weight Body Mass Index (BMI) 33.7 33.7 BMI Classification Obese Obese Vital Signs Temperature (97.8 F-99.1 F) 97.2 F L 97.2 F L Temperature Source Temporal Temporal Pulse Rate (60-100) 62 81 Pulse Location Monitor Monitor Respiratory Rate (12-18) 18 Respiratory rate source Observation Oxygen Delivery Method Room Air Blood Pressure (90/60-120/80) 137/76 H 145/71 H Blood Pressure Mean (mm Hg) 96 95 Source Monitor Monitor Position Sitting Sitting Blood Pressure Location Left Arm Left Arm History Since Last Visit- (Skip if this is Patient's initial visit) Have you changed medications since your No No last visit? Any new allergies or adverse reactions No No Had a fall/change in ADL's that may No No increase risk of falls Signs or symptoms of abuse and/or No No neglect since last visit Have you been in the hospital since your No No last visit? Has dressing in place as prescribed Yes Yes Has compression in place as prescribed Yes Yes Has offloadiing in place as prescribed N/A N/A Experienced any changes in pain level or No No management Left Footwear Regular Shoe Regular Shoe Right Footwear Regular Shoe Regular Shoe Pain Scale: 0-10 Numeric Is Patient Pain Free? Yes Yes WC - Nurse 1 - General Ulcer Measurement Start: 12/19/20 10:21 Freq: Status: Active Protocol: Activity Type Activity Date Activity User E-Sign Co-Sign Detail Recorded Client Recorded Date Recorded By Document 12/19/20 10:22 MW [id number] 12/19/20 10:31 MW Document 01/02/21 10:12 KR [id number] 01/02/21 10:16 KR 12/19/20 01/02/21 10:22 10:12 Wound Center Nurse 1 #1 left heel CLUSTER -Current Size (cm) - Length 1.5 2 -Current Size (cm) - Width 1.5 1.5 -Current Size (cm) - Depth 0.5 0.7 -Total Square Cm 2.25 3.0 -Photo Taken No -Exudate Amt Medium Medium -Exudate Type Serosanguineous Serosanguineous -Wound Margin Distinct, Distinct, Outline Outline Attached Attached -Granulation Amt Large (67-100%) Medium (34-66%) -Granulation Quality Red Red -Necrosis Amt Small (1-33%) Small (1-33%) -Necrotic Tissue Type Adherent Slough Adherent Slough -Structure Exposed N/A -Texture (Margaret-wound Skin Appearance) Scarring Assessed, Scarring -Moisture (Margaret-wound Skin Appearance) Maceration No Abnormality, Assessed -Color (Margaret-wound Skin Appearance) Hemosiderin No Abnormality, Staining Assessed -Temperature (Margaret-wound Skin No Abnormality No Abnormality Appearance) (Pt Warm) (Pt Warm) -Tenderness on Palpation (Margaret-wound No No Skin Appearance) -Ulcer Cleansing Wound Cleanser Rinsed/ Irrigated with Saline -Foul Odor after Cleansing No No -Anesthetic Used 5% Lidocaine 4% Lidocaine Gel Solution Right Calf (cm) 43.2 44.3 Right Ankle (cm) 25.6 31.1 Left Calf (cm) 44.5 46.4 Left Ankle (cm) 26.5 Left Foot (cm) 29 - Nurse 2 - General Ulcer CM Notes Start: 12/19/20 10:21 Freq: Status: Active Protocol: Activity Type Activity Date Activity User E-Sign Co-Sign Detail Recorded Client Recorded Date Recorded By Document 12/19/20 10:49 DANIEL [id number] 12/19/20 11:02 JF Document 01/02/21 10:28 [id number] 01/02/21 10:33 12/19/20 01/02/21 10:49 10:28 Wound Center Nurse 2 #1 left heel CLUSTER -Time 11:01 10:30 -Correct Patient Yes Yes -Correct Side, Site, Position Yes Yes -Correct Procedure Yes Yes -Procedure Performed Yes Yes -Type of Procedure Debridement Debridement -Clinical Debridement Subcutaneous Subcutaneous -Tissue Removed Subcutaneous Subcutaneous -Post Debridement (cm) - Length 1.8 1.6 -Post Debridement (cm) - Width 2 1.8 -Post Debridement (cm) - Depth 1 0.9 -Total Square (Post) (cm) 3.6 2.88 -Area of Debridement (cm) - Length 1.8 1.6 -Area of Debridement (cm) - Width 2 1.8 -Total Square (Area) (cm) 3.6 2.88 -Tunneling No -Undermining/Tunneling No No -Circular Undermining No No -Wound/Ulcer Outcome Not Healed Not Healed -Ulcer Cleansing Rinsed/ Rinsed/ Irrigated with Irrigated with Saline Saline -Foul Odor after Cleansing No No -Bioengineered Tissue No No -Bleeding Controlled with Pressure Pressure -Offloading No No -Treatment Response Procedure Procedure Tolerated Well Tolerated Well -Debridement - Subq, 1st 20sq cm Yes Yes Pain Scale: 0-10 Numeric Is Patient Pain Free? Yes Yes - Nurse 3 - General Ulcer D/C NN Start: 12/19/20 10:21 Freq: Status: Active Protocol: Activity Type Activity Date Activity User E-Sign Co-Sign Detail Recorded Client Recorded Date Recorded By Document 12/19/20 11:29 MW [id number] 12/19/20 11:30 MW Document 01/02/21 10:41 VASQUEZ [id number] 01/02/21 10:42 KR 12/19/20 01/02/21 11:29 10:41 Wound Care Nurse 3 #1 left heel CLUSTER -Ulcer Cleansing Rinsed/ Rinsed/ Irrigated with Irrigated with Saline Saline -Foul Odor after Cleansing No No -Negative Pressure Wound Therapy N/A -Primary Dressing Applied Promogran Promogran Payton Matter Payton Matter -Primary Dressing Covered/Secured with Dry Gauze & Dry Gauze & Roll Gauze, Roll Gauze, Secured with Secured with Tape Tape,Other -Other Covering abd -Promogran Payton Matter 1 1 Right -Lotion applied to leg before No compression wrap -Tubular Bandage Single Layer Double Layer -Size of Tubigrip Used Size E Size E -Size E ($) 1 1 Left -Lotion applied to leg before No compression wrap -Compression Wrap Kevin Wrap -Tubular Bandage Single Layer Double Layer -Size of Tubigrip Used Size E Size E -Size E ($) 1 1 Treatment Response Procedure Procedure Tolerated Well Tolerated Well Pain Scale: 0-10 Numeric Is Patient Pain Free? Yes Yes Teaching: Wound Center Dressing Your Wound -Person Taught Patient -Teaching Method Discussion, Demonstration -Response to teaching Verbalize understanding WC - Visit Discharge Discharge Condition Stable Stable Ambulatory Status Ambulatory Ambulatory Transportation Private Auto Private Auto Accompanied by self Medication Reconcilliation completed & No provided to patient/care provider Clinical Summary of Care Provided Yes Facility Type Home Health Wound debrided: Plantar heel Laterality: Left Wound Grade/Stage: Acevedo 1 Type of Debridement: Excisional debridement Anesthesia Used: 4% Lidocaine Solution Depth: in the subcutaneous layer Percentage of wound debrided: 100 Instrument Used: 3mm curette Tissue Removed: includes fibrous, devitalized, biofilm, callus and slough tissue Severity: Fat Layer Exposed Amount of bleeding with debridement: Mild Bleeding Controlled with: Pressure Patient tolerated procedure: Patient tolerated procedure well Assessment/Plan Assessment/Plan (1) Non-pressure chronic ulcer of left heel and midfoot with fat layer exposed: CODE(S): L97.422 - Non-pressure chronic ulcer of left heel and midfoot with fat layer exposed (2) Cellulitis of left foot: CODE(S): L03.116 - Cellulitis of left lower limb (3) Type 2 diabetes mellitus with diabetic polyneuropathy: CODE(S): E11.42 - Type 2 diabetes mellitus with diabetic polyneuropathy QUALIFIERS: Diabetes mellitus manager long term care insulin use: with manager long term care use Qualified Code(s): E11.42 - Type 2 diabetes mellitus with diabetic polyneuropathy; Z79.4 - extermination supervisor (current) use of insulin (4) Left foot pain: CODE(S): M79.672 - Pain in left foot (5) Bilateral edema of lower extremity: CODE(S): R60.0 - Localized edema (6) Tobacco abuse: CODE(S): Z72.0 - Tobacco use (7) Obesity: CODE(S): E66.9 - Obesity, unspecified QUALIFIERS: Obesity type: due to excess calories Obesity classification: adult class 1 (BMI 30 - 34.9) Serious obesity comorbidity presence: with serious comorbidity Body mass index: BMI 33.0-33.9 Qualified Code(s): E66.09 - Other obesity due to excess calories; Z68.33 - Body mass index [BMI] 33.0-33.9, adult (8) Delayed wound healing: CODE(S): T14.8XXD - Other injury of unspecified body region, subsequent encounter (9) Tinea unguium: CODE(S): B35.1 - Tinea unguium (10) Corns and callosities: CODE(S): L84 - Corns and callosities PLAN: Patient seen and examined. Patient wound is noted to be stable. Lab results 12/19/2020 demonstrated no leukocytosis. Wound culture was negative for MRSA but positive for Proteus Mirabeilis and anaerobic cocci. Patient was noted to have elevated bun, creatinine, glucose, ALK, CRP 17.6, ESR 23, hemoglobin A1c of 10.3% which is up from 8.7% 09/06/2020. Patient is also noted to have low levels of GFR, albumin at 2.9, gap, prealbumin 14.6. X-ray did not show evidence of osteomyelitis. Patient relates he has follow-up appointment with his primary care provider, Priyanka Brown, in the next week or so. He relates that she does not manage his diabetes instead he has an track repair worker Dr. Mykel Barraza. who manages it for him. These are both located in [place]. Discussed following up with both of them in order to optimize him for wound healing. Will fax lab results to their offices. Ulcerations were sharply debrided after verbal consent was obtained from the patient. Was done without incident. Discussed importance of cleaning and maintaining foot both to prevent infection as well as to prevent future wounds. Discussed he is at higher risk for wounds due to his diabetes, neuropathy, hyperglycemia, obesity, swelling, and tobacco abuse. Discussed that he needs to cut back on his smoking and better controlling his blood sugar to better optimize his healing. Patient has not improved his tobacco abuse or his hyperglycemia and does not show incentive to begin changing these habits. Patient is also noted to be rather active based on self reporting as well as clinical buildup of callus to foot. Reviewed how pressure will impact the wound. Patient noted to have offloading surgical shoe. He did not have good tolerance of the total contact cast. He does not always wear his offloading shoes. Patient also failed to demonstrate significant improvement with epi fix grafting. Discussed at length with the patient that he is likely being too active just given the amount of callus buildup noted to his foot. Discussed how every step adds up to delaying healing. Patient has been giving prescription for cam boot for offloading purposes. Patient has not gotten this filled. Arterial and venous studies were reviewed. Showing likely adequate perfusion for healing. Patient relates he has been smoking since he was 10 years old. Discussed impact smoking has on his vessels as well as impact on wound healing. Patient relates that he is unwilling to quit entirely but he will try to cut back. He does not want any medical assistance at this process. Discussed various offloading options with patient. Discussed doing a cam boot as an offloading option due to would allow him to have more frequent dressing changes compared to the total contact cast especially as we are no longer doing epi fix grafting. Prescription for a Cam boot with offloading insert was given to the patient as well as a prescription for a knee scooter was given last week. Patient has yet to fill. Discussed the importance of offloading the areas as well as other things that are slowing down his healing process including his continued smoking and high blood sugars. Discussed following up with his PCP for better management of his blood sugars. Patient to start daily Payton dressing changes with A&E ointment to lower extremities followed by dry sterile dressing and double Tubigrip compression toes to knee Discussed the patient needs to start working with us in order to be better compliant for wound to continue healing. Patient seemed to have trouble underst anding concepts of proper wound care healing. Discussed going up palliative care route in regards to his wound healing as patient is not able to work with us to improve comorbidities such as better controlled blood sugar and poor nutrition etc. All questions answered. Patient to follow up in 3 week. This note was generated with [employer] dictation software. It may contain incorrect words, spelling, and punctuation that were not noted in checking the note before signing.
[2021-01-16 09:37] VITALS: BP 135/56; PULSE 71; RESP 18; TEMP 36.4; BMI 33.7
--- NOTE | 2021-01-16 12:41 | PN.PCM_ITS ---
History of Present Illness Date of Service: 01/16/21 Chief Complaint: left heel ulcer swelling calluses History of Wound: Patient presents for chronic nonhealing wound to left plantar foot. He is unsure how long it has been there as he can't see or reach his feet. He attributes this largely to his obesity. Patient also has significant swelling to his legs, especially his left. He relates he has smoked since he was 10 years old. He also has significant medical history of tobacco abuse, obesity, CAMACHO, edema, COPD, hypercapnia, diabetes with neuropathy. Patient has also had admission to the hospital for hypoxemia and heart failure in August 2020. Patient was noted to be discharged on oxygen therapy. Patient did not present to the clinic today on his oxygen again. He relates that strategic marketing leader recommends he is use 2 L of oxygen. Patient has not been using this. Patient is noted to have significant delayed healing. It is most likely due to his comorbidities including uncontrolled diabetes, morbid obesity, tobacco abuse. Patient seems reluctant to have these factors better controlled in order to promote wound healing. Progress of Wound: Stable Subjective Subjective Patient seen and examined resting comfortably. Patient denies any new pedal complaints. Patient denies any nausea, fever, chills, chest pain, shortness of breath, cough, streaking, purulence, vomiting. Patient complains of left foot pain Objective Data Objective Data Vital Signs: Vital Signs Temp Pulse Resp BP 97.5 F L 71 18 135/56 H 01/16/21 09:37 01/16/21 09:37 01/16/21 09:37 01/16/21 09:37 Oxygen Delivery Method Room Air Body Mass Index (BMI) 33.7 Lab / Micro Data Result Diagrams: 12/19/20 12:12 12/19/20 12:12 Micro: Microbiology 12/19/20 10:52 Wound Abcess - Heel, Left Gram Stain - Final 12/19/20 10:52 Wound Abcess - Heel, Left Wound Culture - Final Proteus mirabilis 12/19/20 10:52 Wound Abcess - Heel, Left Anaerobic Culture - Final Anaerobic cocci Physical Exam Narrative Const alert and no apparent distress General Appearance: cooperative and comfortable Resp normal respiratory effort Effort and Inspection: able to speak in complete sentences Extremity no calf tenderness, negative milo and draper sign lower extremity edema left worse than right General Extremity: Negative for clubbing or cyanosis or ecchymosis or erythema Vasc Peripheral Pulses: posterior tibial pulses present but diminished and dorsalis pedis pulses present but diminished, normal capillary refill, no acute ischemic skin changes noted, normal temperature Skin General Skin Exam: dry skin, decreased hair growth noted; Negative for ecchymosis, eschar, pallor, rashes Wound Narrative: ulcer noted to plantar left heel No malodor. No purulence, probing to bone, streaking, fluctuation, crepitus. Skin is its normal color. Mild periwound maceration noted. Skin is atrophic and hairless. Granular and fat base. Minimal serosanguinous drainage. Minor buildup of callus noted periwound as well as to posterior medial and lateral heel in general. Pain to palpation of left heel especially lateral to wound. Wound is to level of fat. Neuro Gait (Neuro): heel to toe Sensory Exam: extremities light-touch: decreased MSK Motor Exam: strength 5/5 throughout, ROM to foot and ankle joints within normal limits Psych Appearance: appropriate Attitude: calm Debridement Note Debridement Note Post-Debridement Measurements and Additional Note: Post-Debridement Measurement s/Treatment - Nurse 1 - General Ulcer Assessment Start: 12/19/20 10:21 Freq: Status: Active Protocol: [email or web address] Activity Type Activity Date Activity User E-Sign Co-Sign Detail Recorded Client Recorded Date Recorded By Document 12/19/20 10:22 MW [id number] 12/19/20 10:31 MW Document 01/02/21 10:12 KR [id number] 01/02/21 10:16 KR Document 01/16/21 09:37 DL Desktop 01/16/21 09:48 DL 12/19/20 01/02/21 01/16/21 10:22 10:12 09:37 - Today's Visit Information Type of service Follow-up Visit Follow-up Visit Follow-up Visit (Physician/CATERPILLAR DRIVER (Physician/CATERPILLAR DRIVER (Physician/CATERPILLAR DRIVER ) ) ) Arrival Mode Ambulatory, Walker Ambulatory Walker Transfer Assistance None None Accompanied by self Patient Identification Verified (Name & Yes Yes Yes ) Patient Requires Transmission-Based No No Precautions Safety Precautions Fall Prevention Finger Stick Blood Sugar(mg/dl) (if 138 139 indicated): Blood Sugar Stated by Stated by Patient Patient Height and Weight Body Mass Index (BMI) 33.7 33.7 33.7 BMI Classification Obese Obese Obese Vital Signs Temperature (97.8 F-99.1 F) 97.2 F L 97.2 F L 97.5 F L Temperature Source Temporal Temporal Temporal Pulse Rate (60-100) 62 81 71 Pulse Location Monitor Monitor Monitor Respiratory Rate (12-18) 18 18 Respiratory rate source Observation Observation Oxygen Delivery Method Room Air Blood Pressure (90/60-120/80) 137/76 H 145/71 H 135/56 H Blood Pressure Mean (mm Hg) 96 95 82 Source Monitor Monitor Monitor Position Sitting Sitting Blood Pressure Location Left Arm Left Arm History Since Last Visit- (Skip if this is Patient's initial visit) Have you changed medications since your No No No last visit? Any new allergies or adverse reactions No No No Had a fall/change in ADL's that may No No No increase risk of falls Signs or symptoms of abuse and/or No No No neglect since last visit Have you been in the hospital since your No No No last visit? Has dressing in place as prescribed Yes Yes Yes Has compression in place as prescribed Yes Yes Yes Has offloadiing in place as prescribed N/A N/A Yes Experienced any changes in pain level or No No No management Left Footwear Regular Shoe Regular Shoe Regular Shoe Right Footwear Regular Shoe Regular Shoe Regular Shoe Pain Scale: 0-10 Numeric Is Patient Pain Free? Yes Yes Yes WC - Nurse 1 - General Ulcer Measurement Start: 12/19/20 10:21 Freq: Status: Active Protocol: Activity Type Activity Date Activity User E-Sign Co-Sign Detail Recorded Client Recorded Date Recorded By Document 12/19/20 10:22 MW [id number] 12/19/20 10:31 MW Document 01/02/21 10:12 KR [id number] 01/02/21 10:16 KR Document 01/16/21 09:37 DL Desktop 01/16/21 09:48 DL 12/19/20 01/02/21 01/16/21 10:22 10:12 09:37 Wound Center Nurse 1 #1 left heel CLUSTER -Current Size (cm) - Length 1.5 2 1.8 -Current Size (cm) - Width 1.5 1.5 1.5 -Current Size (cm) - Depth 0.5 0.7 1.1 -Total Square Cm 2.25 3.0 2.70 -Photo Taken No No -Undermining/Tunneling Starts (O'clock 7 ) -Undermining/Tunneling Ends (O'clock) 1 -Maximum Distance (cm) 0.6 -Exudate Amt Medium Medium Medium -Exudate Type Serosanguineous Serosanguineous Serosanguineous -Wound Margin Distinct, Distinct, Thickened Outline Outline Attached Attached -Granulation Amt Large (67-100%) Medium (34-66%) Medium (34-66%) -Granulation Quality Red Red [place] -Necrosis Amt Small (1-33%) Small (1-33%) Medium (34-66%) -Necrotic Tissue Type Adherent Slough Adherent Slough Adherent Slough -Structure Exposed N/A N/A -Texture (Margaret-wound Skin Appearance) Scarring Assessed, Callus Scarring -Moisture (Margaret-wound Skin Appearance) Maceration No Abnormality, Maceration,Dry/ Assessed Scaly -Color (Margaret-wound Skin Appearance) Hemosiderin No Abnormality, Hemosiderin Staining Assessed Staining -Temperature (Margaret-wound Skin No Abnormality No Abnormality No Abnormality Appearance) (Pt Warm) (Pt Warm) (Pt Warm) -Tenderness on Palpation (Margaret-wound No No Yes Skin Appearance) -Ulcer Cleansing Wound Cleanser Rinsed/ Wound Cleanser Irrigated with Saline -Foul Odor after Cleansing No No No -Anesthetic Used 5% Lidocaine 4% Lidocaine 4% Lidocaine Gel Solution Solution Right Calf (cm) 43.2 44.3 42.2 Right Ankle (cm) 25.6 31.1 25.8 Left Calf (cm) 44.5 46.4 47 Left Ankle (cm) 26.5 27 Left Foot (cm) 29 WC - Nurse 2 - General Ulcer CM Notes Start: 12/19/20 10:21 Freq: Status: Active Protocol: Activity Type Activity Date Activity User E-Sign Co-Sign Detail Recorded Client Recorded Date Recorded By Document 12/19/20 10:49 DANIEL [id number] 12/19/20 11:02 Document 01/02/21 10:28 JF [id number] 01/02/21 10:33 Document 01/16/21 09:59 JF [id number] 01/16/21 10:06 12/19/20 01/02/21 01/16/21 10:49 10:28 09:59 Wound Center Nurse 2 #1 left heel CLUSTER -Time 11:01 10:30 09:59 -Correct Patient Yes Yes Yes -Correct Side, Site, Position Yes Yes Yes -Correct Procedure Yes Yes Yes -Procedure Performed Yes Yes Yes -Type of Procedure Debridement Debridement Debridement -Clinical Debridement Subcutaneous Subcutaneous Subcutaneous -Tissue Removed Subcutaneous Subcutaneous Subcutaneous -Post Debridement (cm) - Length 1.8 1.6 1.6 -Post Debridement (cm) - Width 2 1.8 1.8 -Post Debridement (cm) - Depth 1 0.9 0.8 -Total Square (Post) (cm) 3.6 2.88 2.88 -Area of Debridement (cm) - Length 1.8 1.6 1.6 -Area of Debridement (cm) - Width 2 1.8 1.8 -Total Square (Area) (cm) 3.6 2.88 2.88 -Tunneling No No -Undermining/Tunneling No No No -Circular Undermining No No No -Wound/Ulcer Outcome Not Healed Not Healed Not Healed -Ulcer Cleansing Rinsed/ Rinsed/ Rinsed/ Irrigated with Irrigated with Irrigated with Saline Saline Saline -Foul Odor after Cleansing No No No -Bioengineered Tissue No No No -Bleeding Controlled with Pressure Pressure Pressure -Offloading No No No -Treatment Response Procedure Procedure Procedure Tolerated Well Tolerated Well Tolerated Well -Debridement - Subq, 1st 20sq cm Yes Yes Yes Pain Scale: 0-10 Numeric Is Patient Pain Free? Yes Yes Yes WC - Nurse 3 - General Ulcer D/C NN Start: 12/19/20 10:21 Freq: Status: Active Protocol: Activity Type Activity Date Activity User E-Sign Co-Sign Detail Recorded Client Recorded Date Recorded By Document 12/19/20 11:29 MW [id number] 12/19/20 11:30 MW Document 01/02/21 10:41 KR [id number] 01/02/21 10:42 KR Document 01/16/21 10:25 DL Desktop 01/16/21 10:27 DL 12/19/20 01/02/21 01/16/21 11:29 10:41 10:25 Wound Care Nurse 3 #1 left heel CLUSTER -Ulcer Cleansing Rinsed/ Rinsed/ Rinsed/ Irrigated with Irrigated with Irrigated with Saline Saline Saline -Foul Odor after Cleansing No No -Negative Pressure Wound Therapy N/A Discontinue -Primary Dressing Applied Promogran Promogran Promogran Payton Matter Payton Matter Payton Matter -Primary Dressing Covered/Secured with Dry Gauze & Dry Gauze & Dry Gauze,Dry Roll Gauze, Roll Gauze, Gauze & Roll Secured with Secured with Gauze,Secured Tape Tape,Other with Tape -Other Covering abd -Promogran Payton Matter 1 1 1 Right -Lotion applied to leg before No compression wrap -Tubular Bandage Single Layer Double Layer Double Layer -Size of Tubigrip Used Size E Size E Size E -Size E ($) 1 1 1 Left -Lotion applied to leg before No compression wrap -Compression Wrap Kevin Wrap -Tubular Bandage Single Layer Double Layer Double Layer -Size of Tubigrip Used Size E Size E Size E -Size E ($) 1 1 1 Treatment Response Procedure Procedure Tolerated Well Tolerated Well Pain Scale: 0-10 Numeric Is Patient Pain Free? Yes Yes Yes Teaching: Wound Center Dressing Your Wound -Person Taught Patient -Teaching Method Discussion, Demonstration -Response to teaching Verbalize understanding WC - Visit Discharge Discharge Condition Stable Stable Stable Ambulatory Status Ambulatory Ambulatory Ambulatory, Walker Transportation Private Auto Private Auto Private Auto Accompanied by self Medication Reconcilliation completed & No provided to patient/care provider Clinical Summary of Care Provided Yes Facility Type Home Health Home Health Orders Sent Yes Wound debrided: plantar heel Laterality: Left Wound Grade/Stage: daugherty 1 Type of Debridement: Excisional debridement Anesthesia Used: 4% Lidocaine Solution Depth: in the subcutaneous layer Percentage of wound debrided: 100 Instrument Used: 3mm curette Tissue Removed: includes fibrous, devitalized, biofilm, callus and slough tissue Severity: Fat Layer Exposed Amount of bleeding with debridement: Mild Bleeding Controlled with: Pressure Patient tolerated procedure: Patient tolerated procedure well Assessment/Plan Assessment/Plan (1) Non-pressure chronic ulcer of left heel and midfoot with fat layer exposed: CODE(S): L97.422 - Non-pressure chronic ulcer of left heel and midfoot with fat layer exposed (2) Cellulitis of left foot: CODE(S): L03.116 - Cellulitis of left lower limb (3) Type 2 diabetes mellitus with diabetic polyneuropathy: CODE(S): E11.42 - Type 2 diabetes mellitus with diabetic polyneuropathy QUALIFIERS: Diabetes mellitus nursing home insulin use: with nursing home use Qualified Code(s): E11.42 - Type 2 diabetes mellitus with diabetic polyneuropathy; Z79.4 - supervisor intermediates (current) use of insulin (4) Left foot pain: CODE(S): M79.672 - Pain in left foot (5) Bilateral edema of lower extremity: CODE(S): R60.0 - Localized edema (6) Tobacco abuse: CODE(S): Z72.0 - Tobacco use (7) Obesity: CODE(S): E66.9 - Obesity, unspecified QUALIFIERS: Body mass index: BMI 33.0-33.9 Obesity classification: adult class 1 (BMI 30 - 34.9) Obesity type: due to excess calories Serious obesity comorbidity presence: with serious comorbidity Quali fied Code(s): E66.09 - Other obesity due to excess calories; Z68.33 - Body mass index [BMI] 33.0-33.9, adult (8) Delayed wound healing: CODE(S): T14.8XXD - Other injury of unspecified body region, subsequent encounter (9) Tinea unguium: CODE(S): B35.1 - Tinea unguium (10) Corns and callosities: CODE(S): L84 - Corns and callosities PLAN: Patient seen and examined. Patient wound is noted to be stable and unchanged. He presents today in formerly [facility] slip on shoes Lab results 12/19/2020 demonstrated no leukocytosis. Wound culture was negative for MRSA but positive for Proteus Mirabeilis and anaerobic cocci. Patient was noted to have elevated bun, creatinine, glucose, ALK, CRP 17.6, ESR 23, hemoglobin A1c of 10.3% which is up from 8.7% 09/06/2020. Patient is also noted to have low levels of GFR, albumin at 2.9, gap, prealbumin 14.6. X-ray did not show evidence of osteomyelitis. Patient relates he has follow-up appointment with his primary care provider, Priyanka Brown, in the next week or so. He relates that she does not manage his diabetes instead he has an summer associate Dr. Mykel Barraza. who manages it for him. These are both located in [place]. Discussed following up with both of them in order to optimize him for wound healing. Patient has yet to see either doctor. Relates he was unable to get an appointment until February. Ulcerations were sharply debrided after verbal consent was obtained from the patient. Was done without incident. Discussed importance of cleaning and maintaining foot both to prevent infection as well as to prevent future wounds. Discussed he is at higher risk for wounds due to his diabetes, neuropathy, hyperglycemia, obesity, swelling, and tobacco abuse. Discussed that he needs to cut back on his smoking and better controlling his blood sugar to better optimize his healing. Patient has not improved his tobacco abuse or his hyperglycemia and does not show incentive to begin changing these habits. Patient is also noted to be rather active based on self reporting as well as clinical buildup of callus to foot. Reviewed how pressure will impact the wound. Patient noted to have offloading surgical shoe. He did not have good tolerance of the total contact cast. He does not always wear his offloading shoes. Patient also failed to demonstrate significant improvement with epi fix grafting. Discussed at length with the patient that he is likely being too active just given the amount of callus buildup noted to his foot. Discussed how every step adds up to delaying healing. Patient has been giving prescription for cam boot for offloading purposes. Patient has not gotten this filled. Arterial and venous studies were reviewed. Showing likely adequate perfusion for healing. Patient relates he has been smoking since he was 10 years old. Discussed impact smoking has on his vessels as well as impact on wound healing. Patient relates that he is unwilling to quit entirely but he will try to cut back. He does not want any medical assistance at this process. Discussed various offloading options with patient. Discussed doing a cam boot as an offloading option due to would allow him to have more frequent dressing changes compared to the total contact cast especially as we are no longer doing epi fix grafting. Prescription for a Cam boot with offloading insert was given to the patient as well as a prescription for a knee scooter was given previously but patient hasn't filled it. Discussed the importance of offloading the areas as well as other things that are slowing down his healing process including his continued smoking and high blood sugars. Discussed following up with his PCP for better management of his blood sugars. Patient to start daily Payton dressing changes with A&E ointment to lower extremities followed by dry sterile dressing and double Tubigrip compression toes to knee Discussed the patient needs to start working with us in order to be better compliant for wound to continue healing. Patient seemed to have trouble understanding concepts of proper wound care healing. Discussed going up palliative care route in regards to his wound healing as patient is not able to work with us to improve comorbidities such as better controlled blood sugar, smoking cessation, and poor nutrition etc. Patient was offerred referral to operations research group manager, patient refused stating he has been to them before. All questions answered. Patient to follow up in 2-3 week. This note was generated with [employer] dictation software. It may contain incorrect words, spelling, and punctuation that were not noted in checking the note before signing.
== END 2021-01-16 23:59 ==
LOC: WC 09:30
PROVIDERS: Referring Provider Podiatrist Foot & Ankle Surgery; Visit Provider Podiatrist Foot & Ankle Surgery
DX: E11.621 Type 2 diabetes mellitus with foot ulcer (principal); L97.422 Non-pressure chronic ulcer of left heel and midfoot with fat layer exposed; M79.89 Other specified soft tissue disorders; J44.9 Chronic obstructive pulmonary disease, unspecified; G47.33 Obstructive sleep apnea (adult) (pediatric); E66.9 Obesity, unspecified; F17.200 Nicotine dependence, unspecified, uncomplicated; E11.40 Type 2 diabetes mellitus with diabetic neuropathy, unspecified; I50.9 Heart failure, unspecified; Z68.33 Body mass index [BMI] 33.0-33.9, adult; R60.0 Localized edema; B35.1 Tinea unguium; L84 Corns and callosities
CPT/HCPCS: 11042; 36415; 73630; 80053; 83036; 84134; 85027; 85652; 86140; 87070; 87075; 87077; 87186; 87205; 87640

== ENCOUNTER 2021-02-06 09:37 | Outpatient (RCR) | payer MEDICARE, BC, SELFPAY ==
[2021-01-17 00:31] VITALS: BP 135/56; PULSE 71; RESP 18; TEMP 36.4; BMI 33.7
--- NOTE | 2021-02-06 09:00 | PCM.WC.PN ---
History of Present Illness Date of Service: 02/06/21 Chief Complaint: left heel ulcer swelling calluses History of Wound: Patient presents for chronic nonhealing wound to left plantar foot. He is unsure how long it has been there as he can't see or reach his feet. He attributes this largely to his obesity. Patient also has significant swelling to his legs, especially his left. He relates he has smoked since he was 10 years old. He also has significant medical history of tobacco abuse, obesity, CAMACHO, edema, COPD, hypercapnia, diabetes with neuropathy. Patient has also had admission to the hospital for hypoxemia and heart failure in August 2020. Patient was noted to be discharged on oxygen therapy. Patient did not present to the clinic today on his oxygen again. He relates that clarifying plant operator recommends he is use 2 L of oxygen. Patient has not been using this. Patient is noted to have significant delayed healing. It is most likely due to his comorbidities including uncontrolled diabetes, morbid obesity, tobacco abuse. Patient seems reluctant to have these factors better controlled in order to promote wound healing. Progress of Wound: Stable Subjective Subjective Patient seen and examined resting comfortably. Patient denies any new pedal complaints. Patient denies any nausea, fever, chills, chest pain, shortness of breath, cough, streaking, purulence, vomiting. Patient points of left heel pain. Objective Data Objective Data Vital Signs: Vital Signs Temp Pulse Resp BP 97.5 F L 71 18 135/56 H 01/17/21 00:31 01/17/21 00:31 01/17/21 00:31 01/17/21 00:31 Body Mass Index (BMI) 33.7 Physical Exam Narrative Const alert and no apparent distress General Appearance: cooperative and comfortable Resp normal respiratory effort Effort and Inspection: able to speak in complete sentences Extremity no calf tenderness, negative milo and draper sign lower extremity edema left worse than right General Extremity: Negative for clubbing or cyanosis or ecchymosis or erythema Vasc Peripheral Pulses: posterior tibial pulses present but diminished and dorsalis pedis pulses present but diminished, normal capillary refill, no acute ischemic skin changes noted, normal temperature Skin General Skin Exam: dry skin, decreased hair growth noted; Negative for ecchymosis, eschar, pallor, rashes Wound Narrative: ulcer noted to plantar left heel No malodor. No purulence, probing to bone, streaking, fluctuation, crepitus. Skin is its normal color. Mild periwound maceration noted. Skin is atrophic and hairless. Granular and fat base. Minimal serosanguinous drainage. Minor buildup of callus noted periwound as well as to posterior medial and lateral heel in general. Pain to palpation of left heel especially lateral to wound. Wound is to level of fat. Neuro Gait (Neuro): heel to toe Sensory Exam: extremities light-touch: decreased MSK Motor Exam: strength 5/5 throughout, ROM to foot and ankle joints within normal limits Psych Appearance: appropriate Attitude: calm Debridement Note Debridement Note Wound debrided: Plantar heel Laterality: Left Wound Grade/Stage: Acevedo 1 Type of Debridement: Excisional debridement Anesthesia Used: 4% Lidocaine Solution Depth: in the subcutaneous layer Percentage of wound debrided: 100 Instrument Used: 3mm curette Tissue Removed: includes fibrous, devitalized, biofilm, callus and slough tissue Severity: Fat Layer Exposed Amount of bleeding with debridement: Mild Bleeding Controlled with: Pressure Patient tolerated procedure: Patient tolerated procedure well Post-Debridement Measurements and Additional Note: Wound Measurements and Assessment WC - Nurse 1 - General Ulcer Measurement Start: 02/06/21 09:25 Freq: Status: Active Protocol: Activity Type Activity Date Activity User E-Sign Co-Sign Detail Recorded Client Recorded Date Recorded By Document 02/06/21 09:25 [facility] [id number] 02/06/21 09:35 [facility] 02/06/21 09:25 Wound Center Nurse 1 [Ulcer Assessment] #1 left heel CLUSTER -Current Size (cm) - Length 1.6 -Current Size (cm) - Width 1.6 -Current Size (cm) - Depth 0.6 -Total Square Cm 2.56 -Undermining/Tunneling Starts (O' 8 clock) -Undermining/Tunneling Ends (O'clock) 12 -Maximum Distance #2 (cm) 0.9 -Exudate Amt Medium -Exudate Type Serosanguineous -Wound Margin Thickened -Granulation Amt Medium (34-66%) -Granulation Quality Red -Necrosis Amt Medium (34-66%) -Necrotic Tissue Type Adherent Slough -Structure Exposed N/A -Texture (Margaret-wound Skin Appearance) Callus -Moisture (Margaret-wound Skin Appearance Dry/Scaly ) -Color (Margaret-wound Skin Appearance) Hemosiderin Staining -Temperature (Margaret-wound Skin No Abnormality Appearance) (Pt Warm) -Tenderness on Palpation (Margaret-wound No Skin Appearance) -Ulcer Cleansing Wound Cleanser -Foul Odor after Cleansing No -Anesthetic Used 5% Lidocaine Gel [Edema Assessment] -Left Calf (cm) 45.6 -Left Ankle (cm) 27.5 WC - Nurse 2 - General Ulcer CM Notes Start: 02/06/21 09:25 Freq: Status: Active Protocol: Activity Type Activity Date Activity User E-Sign Co-Sign Detail Recorded Client Recorded Date Recorded By Document 02/06/21 09:58 DANIEL [id number] 02/06/21 10:02 DANIEL 02/06/21 09:58 Wound Center Nurse 2 [Procedure/Treatment] #1 left heel CLUSTER -Time 09:58 -Correct Patient Yes -Correct Side, Site, Position Yes -Correct Procedure Yes -Procedure Performed Yes -Type of Procedure Debridement -Clinical Debridement Subcutaneous -Tissue Removed Subcutaneous -Post Debridement (cm) - Length 1.6 -Post Debridement (cm) - Width 1.4 -Post Debridement (cm) - Depth 0.7 -Total Square (Post) (cm) 2.24 -Area of Debridement (cm) - Length 1.6 -Area of Debridement (cm) - Width 1.4 -Total Square (Area) (cm) 2.24 -Tunneling No -Undermining/Tunneling No -Circular Undermining No -Wound/Ulcer Outcome Not Healed -Ulcer Cleansing Rinsed/ Irrigated with Saline -Foul Odor after Cleansing No -Bioengineered Tissue No -Bleeding Controlled with Pressure -Offloading Yes -Type of Offloading Surgical Shoe -Treatment Response Procedure Tolerated Well -Debridement - Subq, 1st 20sq cm Yes [See Physician Procedure note for Specifics] Pain Scale: 0-10 Numeric [Pain] -Is Patient Pain Free? 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 (3) Delayed wound healing: CODE(S): T14.8XXD - Other injury of unspecified body region, subsequent encounter (4) Bilateral edema of lower extremity: CODE(S): R60.0 - Localized edema (5) Left foot pain: CODE(S): M79.672 - Pain in left foot (6) Corns and callosities: CODE(S): L84 - Corns and callosities (7) Tobacco abuse: CODE(S): Z72.0 - Tobacco use (8) Obesity: CODE(S): E66.9 - Obesity, unspecified QUALIFIERS: Body mass index: BMI 33.0-33.9 Obesity classification: adult class 1 (BMI 30 - 34.9) Obesity type: due to excess calories Serious obesity comorbidity presence: with serious comorbidity Qualified Code(s): E66.09 - Other obesity due to excess calories; Z68.33 - Body mass index [BMI] 33.0-33.9, adult (9) COPD (chronic obstructive pulmonary disease): CODE(S): J44.9 - Chronic obstructive pulmonary disease, unspecified QUALIFIERS: COPD type: emphysema Emphysema type: centrilobular Qualified Code(s): J43.2 - Centrilobular emphysema PLAN: Patient seen and examined. Patient wound is noted to be stable and largely unchanged. He presents today in [facility] slip on shoes with assistance of roller aid Lab results 12/19/2020 demonstrated no leukocytosis. Wound culture was negative for MRSA but positive for Proteus Mirabeilis and anaerobic cocci. Patient was noted to have elevated bun, creatinine, glucose, ALK, CRP 17.6, ESR 23, hemoglobin A1c of 10.3% which is up from 8.7% 09/06/2020. Patient is also noted to have low levels of GFR, albumin at 2.9, gap, prealbumin 14.6. X-ray did not show evidence of osteomyelitis. Patient relates he had follow-up appointment with his primary care provider, Priyanka Brown, and relates that she did not change any medication and stated he was doing okay. I get the impression that she is leaving the diabetes management up to his underwater roboticist. He relates that she does not manage his diabetes instead he has an underwater roboticist Dr. Mykel Barraza. who manages it for him. He relates that he had to cancel his appointment with Dr. Barraza. These are both located in [place]. Discussed following up with both of them in order to optimize him for wound healing. Patient has yet to see either doctor. Relates he was unable to get an appointment until February. Ulcerations were sharply debrided after verbal consent was obtained from the patient. Was done without incident. Discussed importance of cleaning and maintaining foot both to prevent infection as well as to prevent future wounds. Discussed he is at higher risk for wounds due to his diabetes, neuropathy, hyperglycemia, obesity, swelling, and tobacco abuse. Discussed that he needs to cut back on his smoking and better controlling his blood sugar to better optimize his healing. Patient has not improved his tobacco abuse or his hyperglycemia and does not show incentive to begin changing these habits. Patient is also noted to be rather active based on self reporting especially with yard work. Reviewed how pressure will impact the wound. Patient noted to have offloading surgical shoe. He did not have good tolerance of the total contact cast. He does not always wear his offloading shoes. Patient also failed to demonstrate significant improvement with epi fix grafting. Discussed at length with the patient that he is likely being too active just given the amount of callus buildup noted to his foot. Discussed how every step adds up to delaying healing. Patient has been giving prescription for cam boot for offloading purposes. Patient has not gotten this filled. Arterial and venous studies were reviewed. Showing likely adequate perfusion for healing. Patient relates he has been smoking since he was 10 years old. Discussed impact smoking has on his vessels as well as impact on wound healing. Patient relates that he is unwilling to quit entirely but he will try to cut back. He does not want any medical assistance at this process. Discussed various offloading options with patient. Discussed doing a cam boot as an offloading option due to would allow him to have more frequent dressing changes compared to the total contact cast especially as we are no longer doing epi fix grafting. Prescription for a Cam boot with offloading insert was given to the patient as well as a prescription for a knee scooter was given previously but patient hasn't filled it. Discussed the importance of offloading the areas as well as other things that are slowing down his healing process including his continued smoking and high blood sugars. Discussed following up with his underwater roboticist for better management of his blood sugars. Patient to start daily Payton dressing changes with A&E ointment to lower extremities followed by dry sterile dressing and double Tubigrip compression toes to knee Discussed the patient needs to start working with us in order to be better compliant for wound to continue healing. Patient seemed to have trouble understanding concepts of proper wound care healing. Discussed going up palliative care route in regards to his wound healing as patient is not able to work with us to improve comorbidities such as better controlled blood sugar, smoking cessation, and poor nutrition etc. Patient was offered referral to manager laboratory, patient refused stating he has been to them before. All questions answered. Patient to follow up in 2-3 weeks. This note was generated with [employer] dictation software. It may contain incorrect words, spelling, and punctuation that were not noted in checking the note before signing.
[2021-02-06 09:25] VITALS: BP 138/72; PULSE 65; RESP 18; TEMP 36.3; BMI 33.7
== END 2021-02-15 23:59 ==
LOC: WC 09:37
PROVIDERS: Referring Provider Podiatrist Foot & Ankle Surgery; Visit Provider Podiatrist Foot & Ankle Surgery
DX: E11.621 Type 2 diabetes mellitus with foot ulcer (principal); L97.422 Non-pressure chronic ulcer of left heel and midfoot with fat layer exposed; G47.33 Obstructive sleep apnea (adult) (pediatric); E11.40 Type 2 diabetes mellitus with diabetic neuropathy, unspecified; E11.65 Type 2 diabetes mellitus with hyperglycemia; E66.01 Morbid (severe) obesity due to excess calories; Z68.33 Body mass index [BMI] 33.0-33.9, adult; J43.2 Centrilobular emphysema; M79.672 Pain in left foot; L84 Corns and callosities; R60.0 Localized edema; F17.200 Nicotine dependence, unspecified, uncomplicated
CPT/HCPCS: 11042

== ENCOUNTER 2021-03-14 08:45 | Outpatient (RCR) | payer MEDICARE, BC, SELFPAY ==
[2021-02-16 00:25] VITALS: BP 138/72; PULSE 65; RESP 18; TEMP 36.3; BMI 33.7
[2021-02-27 09:19] VITALS: BP 145/56; PULSE 61; RESP 18; TEMP 36.2; BMI 33.7
--- NOTE | 2021-02-27 10:23 | PCM.WC.PN ---
History of Present Illness Date of Service: 02/27/21 Chief Complaint: left heel ulcer swelling calluses History of Wound: Patient presents for chronic nonhealing wound to left plantar foot. He is unsure how long it has been there as he can't see or reach his feet. He attributes this largely to his obesity. Patient also has significant swelling to his legs, especially his left. He relates he has smoked since he was 10 years old. He also has significant medical history of tobacco abuse, obesity, CAMACHO, edema, COPD, hypercapnia, diabetes with neuropathy. Patient has also had admission to the hospital for hypoxemia and heart failure in August 2020. Patient was noted to be discharged on oxygen therapy. Patient did not present to the clinic today on his oxygen again. He relates that sales agent [employer] recommends he is use 2 L of oxygen. Patient has not been using this. Patient is noted to have significant delayed healing. It is most likely due to his comorbidities including uncontrolled diabetes, morbid obesity, tobacco abuse. Patient seems reluctant to have these factors better controlled in order to promote wound healing. Patient is getting frustrated with lack of progress but is not willing to make changes to promote healing Progress of Wound: Worsening Subjective Subjective Patient seen and examined resting comfortably. Patient denies any new pedal complaints. Patient denies any nausea, fever, chills, chest pain, shortness of breath, cough, streaking, purulence, vomiting. Patient expresses frustration on foot wound and pain Objective Data Objective Data Vital Signs: Vital Signs Temp Pulse Resp BP 97.2 F L 61 18 145/56 H 02/27/21 09:19 02/27/21 09:19 02/27/21 09:19 02/27/21 09:19 Oxygen Delivery Method Room Air Body Mass Index (BMI) 33.7 Physical Exam Narrative Const alert and no apparent distress General Appearance: cooperative and comfortable Resp normal respiratory effort Effort and Inspection: able to speak in complete sentences Extremity no calf tenderness, negative milo and draper sign lower extremity edema left worse than right General Extremity: Negative for clubbing or cyanosis or ecchymosis or erythema Vasc Peripheral Pulses: posterior tibial pulses present but diminished and dorsalis pedis pulses present but diminished, normal capillary refill, no acute ischemic skin changes noted, normal temperature Skin General Skin Exam: dry skin, decreased hair growth noted; Negative for ecchymosis, eschar, pallor, rashes Wound Narrative: ulcer noted to plantar left heel Mild malodor. No purulence, probing to bone, streaking, fluctuation, crepitus. Skin is its normal color. Mild periwound maceration noted. Skin is atrophic and hairless. Granular and fat base. Minimal serosanguinous drainage. Minor buildup of callus noted periwound as well as to posterior medial and lateral heel in general. Pain to palpation of left heel especially posterior to wound. Wound is to level of fat. nails [id number] and [id number] right are thickened, elongated, dystrophic, discolored Neuro Gait (Neuro): heel to toe Sensory Exam: extremities light-touch: decreased MSK Motor Exam: strength 5/5 throughout, ROM to foot and ankle joints within normal limits Psych Appearance: appropriate Attitude: calm Debridement Note Debridement Note Wound debrided: plantar heel Laterality: Left Wound Grade/Stage: daugherty 1 Type of Debridement: Excisional debridement Anesthesia Used: 4% Lidocaine Solution Depth: in the subcutaneous layer Percentage of wound debrided: 100 Instrument Used: 3mm curette Tissue Removed: includes fibrous, devitalized, biofilm, callus and slough tissue Severity: Fat Layer Exposed Amount of bleeding with debridement: Mild Bleeding Controlled with: Pressure and Silver Nitrate Patient tolerated procedure: Patient tolerated procedure well Post-Debridement Measurements and Additional Note: Post-Debridement Measurements/Treatment - Nurse 1 - General Ulcer Assessment Start: 02/27/21 09:19 Freq: Status: Active Protocol: .LOWEXT Activity Type Activity Date Activity User E-Sign Co-Sign Detail Recorded Client Recorded Date Recorded By Document 02/27/21 09:19 [facility] [id number] 02/27/21 09:28 [facility] 02/27/21 09:19 - Today's Visit Information Type of service Follow-up Visit (Physician/KOSHER BUTCHER ) Arrival Mode Ambulatory, Walker Transfer Assistance None Patient Identification Verified (Name & Yes ) Patient Requires Transmission-Based No Precautions Height and Weight Body Mass Index (BMI) 33.7 BMI Classification Obese Vital Signs Temperature (97.8 F-99.1 F) 97.2 F L Temperature Source Temporal Pulse Rate (60-100) 61 Pulse Location Monitor Respiratory Rate (12-18) 18 Respiratory rate source Observation Oxygen Delivery Method Room Air Blood Pressure (90/60-120/80) 145/56 H Blood Pressure Mean (mm Hg) 85 Source Monitor Position Sitting Blood Pressure Location Left Arm History Since Last Visit- (Skip if this is Patient's initial visit) Have you changed medications since your No last visit? Any new allergies or adverse reactions No Had a fall/change in ADL's that may No increase risk of falls Signs or symptoms of abuse and/or No neglect since last visit Have you been in the hospital since your No last visit? Has dressing in place as prescribed Yes Has compression in place as prescribed Yes Has offloadiing in place as prescribed Yes Experienced any changes in pain level or No management Left Footwear Regular Shoe Right Footwear Regular Shoe Pain Scale: 0-10 Numeric Is Patient Pain Free? Yes WC - Nurse 1 - General Ulcer Measurement Start: 02/27/21 09:19 Freq: Status: Active Protocol: Activity Type Activity Date Activity User E-Sign Co-Sign Detail Recorded Client Recorded Date Recorded By Document 02/27/21 09:19 [facility] [id number] 02/27/21 09:28 [facility] 02/27/21 09:19 Wound Center Nurse 1 #1 left heel CLUSTER -Combined with other wound No -Current Size (cm) - Length 1 -Current Size (cm) - Width 1.6 -Current Size (cm) - Depth 0.6 -Total Square Cm 1.6 -Photo Taken No -Epithelialization None Present -Tunneling No -Undermining/Tunneling Yes -Undermining/Tunneling Starts (O'clock 12 ) -Undermining/Tunneling Ends (O'clock) 12 -Maximum Distance (cm) 1 -Circular Undermining Yes -Exudate Type Serosanguineous -Wound Margin Distinct, Outline Attached -Granulation Amt Large (67-100%) -Granulation Quality Red -Slough/Fibrin Yes -Necrosis Amt Small (1-33%) -Necrotic Tissue Type Adherent Slough -Texture (Margaret-wound Skin Appearance) Assessed -Moisture (Margaret-wound Skin Appearance) Assessed, Maceration -Color (Margaret-wound Skin Appearance) Assessed, Erythema,Palor -Temperature (Margaret-wound Skin No Abnormality Appearance) (Pt Warm) -Tenderness on Palpation (Margaret-wound Yes Skin Appearance) -Ulcer Cleansing Soap and Water -Foul Odor after Cleansing No -Anesthetic Used 5% Lidocaine Gel Lower Limb Edema Present Yes Right Calf (cm) 44.3 Right Ankle (cm) 26.5 Left Calf (cm) 46.5 Left Ankle (cm) 24.5 WC - Nurse 2 - General Ulcer CM Notes Start: 02/27/21 09:19 Freq: Status: Active Protocol: Activity Type Activity Date Activity User E-Sign Co-Sign Detail Recorded Client Recorded Date Recorded By Document 02/27/21 09:54 [id number] 02/27/21 10:07 DANIEL 02/27/21 09:54 Wound Center Nurse 2 #1 left heel CLUSTER -Time 09:55 -Correct Patient Yes -Correct Side, Site, Position Yes -Correct Procedure Yes -Procedure Performed Yes -Type of Procedure Debridement -Clinical Debridement Subcutaneous -Tissue Removed Subcutaneous -Post Debridement (cm) - Length 2.4 -Post Debridement (cm) - Width 2.6 -Post Debridement (cm) - Depth 1.2 -Total Square (Post) (cm) 6.24 -Area of Debridement (cm) - Length 2.4 -Area of Debridement (cm) - Width 2.6 -Total Square (Area) (cm) 6.24 -Tunneling No -Undermining/Tunneling No -Circular Undermining No -Wound/Ulcer Outcome Not Healed -Ulcer Cleansing Rinsed/ Irrigated with Saline -Foul Odor after Cleansing No -Bioengineered Tissue No -Bleeding Controlled with Pressure,Silver Nitrate -Offloading No -Treatment Response Procedure Tolerated Well -Debridement - Subq, 1st 20sq cm Yes Pain Scale: 0-10 Numeric Is Patient Pain Free? Yes WC - Nurse 3 - General Ulcer D/C NN Start: 02/27/21 09:19 Freq: Status: Active Protocol: Activity Type Activity Date Activity User E-Sign Co-Sign Detail Recorded Client Recorded Date Recorded By Document 02/27/21 10:17 [facility] [id number] 02/27/21 10:18 [facility] 02/27/21 10:17 Wound Care Nurse 3 #1 left heel CLUSTER -Ulcer Cleansing Rinsed/ Irrigated with Saline -Foul Odor after Cleansing No -Primary Dressing Applied Other -Other Dressing moist to dry per mw rn -Primary Dressing Covered/Secured with Dry Gauze & Roll Gauze, Secured with Tape Right -Tubular Bandage Double Layer -Size of Tubigrip Used Size E -Size E ($) 1 Left -Tubular Bandage Double Layer -Size of Tubigrip Used Size E -Size E ($) 1 Treatment Response Procedure Tolerated Well Pain Scale: 0-10 Numeric Is Patient Pain Free? Yes WC - Visit Discharge Discharge Condition Stable Ambulatory Status Ambulatory, Walker Transportation Private Auto Notes: knee walker Assessment/Plan Assessment/Plan (1) Non-pressure chronic ulcer of left heel and midfoot with fat layer exposed: CODE(S): L97.422 - Non-pressure chronic ulcer of left heel and midfoot with fat layer exposed (2) Type 2 diabetes mellitus with diabetic polyneuropathy: CODE(S): E11.42 - Type 2 diabetes mellitus with diabetic polyneuropathy QUALIFIERS: Diabetes mellitus marine oil terminal superintendent insulin use: with senior living use Qualified Code(s): E11.42 - Type 2 diabetes mellitus with diabetic polyneuropathy; Z79.4 - technician terminal and repeater (current) use of insulin (3) Delayed wound healing: CODE(S): T14.8XXD - Other injury of unspecified body region, subsequent encounter (4) Bilateral edema of lower extremity: CODE(S): R60.0 - Localized edema (5) Cellulitis of left foot: CODE(S): L03.116 - Cellulitis of left lower limb (6) Left foot pain: CODE(S): M79.672 - Pain in left foot (7) Corns and callosities: CODE(S): L84 - Corns and callosities (8) Tobacco abuse: CODE(S): Z72.0 - Tobacco use (9) Obesity: CODE(S): E66.9 - Obesity, unspecified QUALIFIERS: Body mass index: BMI 33.0-33.9 Obesity classification: adult class 1 (BMI 30 - 34.9) Obesity type: due to excess calories Serious obesity comorbidity presence: with serious comorbidity Qualified Code(s): E66.09 - Other obesity due to excess calories; Z68.33 - Body mass index [BMI] 33.0-33.9, adult (10) Tinea unguium: CODE(S): B35.1 - Tinea unguium PLAN: Patient seen and examined. Patient wound is noted to have worsened wit it being enlarged and having some malodor. He presents today in cro slip on shoes with assistance of roller aid Patient relates he had follow-up appointment with his primary care provider, Priyanka Brown, and relates that she did not change any medication and stated he was doing okay. PCP is leaving the diabetes management up to his industrial health and safety professor, Dr. Mykel Barraza. Patient relates he has missed 2 appointments with him. Reiterated how important seeing him is as his poorly controlled diabetes is one factor that is contributing to his delayed healing. Culture of wound was obtained 02/27/21 which was positive for MRSA, proteus, and possible enterococcus as of preliminary results. Patient was initially started on augmentin after appointment. Once MRSA results were seen, patient was switched to bactrim. Ulcerations were sharply debrided after verbal consent was obtained from the patient. Was done without incident. Discussed importance of cleaning and maintaining foot both to prevent infection as well as to prevent future wounds. Discussed he is at higher risk for wounds due to his diabetes, neuropathy, hyperglycemia, obesity, swelling, and tobacco abuse. Discussed that he needs to cut back on his smoking, preferably quit, and better controlling his blood sugar to better optimize his healing. Patient has not improved his tobacco abuse or his hyperglycemia and does not show incentive to begin changing these habits. Patient is also noted to be rather active based on self reporting especially with yard work. Reviewed how pressure will impact the wound. Patient noted to have offloading surgical shoe. He did not have good tolerance of the total contact cast. He does not always wear his offloading shoes. He is wearing crocks today. Discussed that these are not offloading the wound. Patient also failed to demonstrate significant improvement with epi fix grafting. Discussed how every step adds up to delaying healing. Patient has been giving prescription for cam boot for offloading purposes. Patient has not gotten this filled. Arterial and venous studies were reviewed. Showing likely adequate perfusion for healing. Patient relates he has been smoking since he was 10 years old. Discussed impact smoking has on his vessels as well as impact on wound healing. Patient relates that he is unwilling to quit entirely but he will try to cut back. He does not want any medical assistance at this process. He has not been successful in cutting back Patient to start daily Dakins dressing changes with A&E ointment to lower extremities followed by dry sterile dressing and double Tubigrip compression toes to knee. Patient to get Dakins solution from [facility] outpatient pharmacy. Discussed the patient needs to start working with us in order to be better compliant for wound to continue healing. Patient seemed to have trouble understanding concepts of proper wound care healing. Discussed going up palliative care route in regards to his wound healing as patient is not able to work with us to improve comorbidities such as better controlled blood sugar, smoking cessation, and poor nutrition etc. Patient was offered referral to loss prevention detective, patient refused stating he has been to them before. Reiterated importance fo following up with endocrinology, especially with reported sugars in the 300s All questions answered. We will proceed with palliative care, as well as monitoring. Foot care and footgear has been discussed. [place]br[place] [id number] bilateral toenails, with a nail nipper and both length and thickness by angling nail nippers. This was done without incident. Patient to follow up in 1 week This note was generated with [employer] dictation software. It may contain incorrect words, spelling, and punctuation that were not noted in checking the note before signing. The problems addressed require a low medical decision making level which includes two or more minor problems, a stable chronic illness, or an acute uncomplicated illness or injury.
[2021-02-27 17:56] LABS: M R Staph aureus DNA By PCR POSITIVE (Negative); Probe Check PASS; Staph aureus DNA By PCR POSITIVE (Negative)
[2021-03-06 09:23] VITALS: BP 133/79; PULSE 64; RESP 20; TEMP 36.8; BMI 33.7
--- NOTE | 2021-03-06 10:14 | PCM.WC.PN ---
History of Present Illness Date of Service: 03/06/21 Chief Complaint: left heel ulcer swelling calluses History of Wound: Patient presents for chronic nonhealing wound to left plantar foot. He is unsure how long it has been there as he can't see or reach his feet. He attributes this largely to his obesity. Patient also has significant swelling to his legs, especially his left. He relates he has smoked since he was 10 years old. He also has significant medical history of tobacco abuse, obesity, CAMACHO, edema, COPD, hypercapnia, diabetes with neuropathy. Patient has also had admission to the hospital for hypoxemia and heart failure in August 2020. Patient was noted to be discharged on oxygen therapy. Patient did not present to the clinic today on his oxygen again. He relates that flavorer recommends he is use 2 L of oxygen. Patient has not been using this. Patient is noted to have significant delayed healing. It is most likely due to his comorbidities including uncontrolled diabetes, morbid obesity, tobacco abuse. Patient seems reluctant to have these factors better controlled in order to promote wound healing. Patient is getting frustrated with lack of progress but is not willing to make changes to promote healing Progress of Wound: Improved Subjective Subjective Patient seen and examined resting comfortably. Patient denies any new pedal complaints. Patient denies any nausea, fever, chills, chest pain, shortness of breath, cough, streaking, purulence, vomiting. Objective Data Objective Data Vital Signs: Vital Signs Temp Pulse Resp BP 98.2 F 64 20 H 133/79 H 03/06/21 09:23 03/06/21 09:23 03/06/21 09:23 03/06/21 09:23 Oxygen Delivery Method Room Air Body Mass Index (BMI) 33.7 Lab / Micro Data Micro: Microbiology 02/27/21 09:58 Wound Abcess - Heel, Left Gram Stain - Final 02/27/21 09:58 Wound Abcess - Heel, Left Wound Culture - Final Proteus mirabilis Meth. resistant Staph. aureus Enterococcus faecalis 02/27/21 09:58 Wound Abcess - Heel, Left Anaerobic Culture - Final Anaerobic cocci Bacteroides thetaiotaomicron Physical Exam Narrative Const alert and no apparent distress General Appearance: cooperative and comfortable Resp normal respiratory effort Effort and Inspection: able to speak in complete sentences Extremity no calf tenderness, negative milo and draper sign lower extremity edema left worse than right General Extremity: Negative for clubbing or cyanosis or ecchymosis or erythema Vasc Peripheral Pulses: posterior tibial pulses present but diminished and dorsalis pedis pulses present but diminished, normal capillary refill, no acute ischemic skin changes noted, normal temperature Skin General Skin Exam: dry skin, decreased hair growth noted; Negative for ecchymosis, eschar, pallor, rashes Wound Narrative: ulcer noted to plantar left heel Healthy in appearance today. No malodor. No purulence, probing to bone, streaking, fluctuation, crepitus. Skin is its normal color. Mild periwound maceration noted. Skin is atrophic and hairless. Granular and fat base. Minimal serosanguinous drainage. No buildup of callus noted periwound as well as to posterior medial and lateral heel in general. Pain to palpation of left heel especially posterior to wound. Wound is to level of fat. Neuro Gait (Neuro): heel to toe Sensory Exam: extremities light-touch: decreased MSK Motor Exam: strength 5/5 throughout, ROM to foot and ankle joints within normal limits Psych Appearance: appropriate Attitude: calm Debridement Note Debridement Note Wound debrided: Plantar heel Laterality: Left Wound Grade/Stage: Acevedo 1 Type of Debridement: Excisional debridement Anesthesia Used: 4% Lidocaine Solution Depth: in the subcutaneous layer Percentage of wound debrided: 100 Instrument Used: #15 blade Tissue Removed: includes fibrous, devitalized, biofilm, callus and slough tissue Severity: Fat Layer Exposed Amount of bleeding with debridement: Mild Bleeding Controlled with: Pressure Patient tolerated procedure: Patient tolerated procedure well Post-Debridement Measurements and Additional Note: Post-Debridement Measurements/Treatment - Nurse 1 - General Ulcer Assessment Start: 02/27/21 09:19 Freq: Status: Active Protocol: JANESSA.LOWAIDEN Activity Type Activity Date Activity User E-Sign Co-Sign Detail Recorded Client Recorded Date Recorded By Document 02/27/21 09:19 [facility] [id number] 02/27/21 09:28 BM Document 03/06/21 09:23 DL [id number] 03/06/21 09:35 DL 02/27/21 03/06/21 09:19 09:23 - Today's Visit Information Type of service Follow-up Visit Follow-up Visit (Physician/BACK LINE COOK (Physician/BACK LINE COOK ) ) Arrival Mode Ambulatory, Ambulatory Walker Transfer Assistance None None Patient Identification Verified (Name & Yes Yes ) Patient Requires Transmission-Based No No Precautions Finger Stick Blood Sugar(mg/dl) (if 131 indicated): Blood Sugar Stated by Patient Height and Weight Body Mass Index (BMI) 33.7 33.7 BMI Classification Obese Obese Vital Signs Temperature (97.8 F-99.1 F) 97.2 F L 98.2 F Temperature Source Temporal Temporal Pulse Rate (60-100) 61 64 Pulse Location Monitor Monitor Respiratory Rate (12-18) 18 20 H Respiratory rate source Observation Observation Oxygen Delivery Method Room Air Blood Pressure (90/60-120/80) 145/56 H 133/79 H Blood Pressure Mean (mm Hg) 85 97 Source Monitor Monitor Position Sitting Blood Pressure Location Left Arm History Since Last Visit- (Skip if this is Patient's initial visit) Have you changed medications since your No No last visit? Any new allergies or adverse reactions No No Had a fall/change in ADL's that may No No increase risk of falls Signs or symptoms of abuse and/or No neglect since last visit Have you been in the hospital since your No No last visit? Has dressing in place as prescribed Yes Yes Has compression in place as prescribed Yes Yes Has offloadiing in place as prescribed Yes Yes Experienced any changes in pain level or No No management Left Footwear Regular Shoe Right Footwear Regular Shoe Pain Scale: 0-10 Numeric Is Patient Pain Free? Yes Yes WC - Nurse 1 - General Ulcer Measurement Start: 02/27/21 09:19 Freq: Status: Active Protocol: Activity Type Activity Date Activity User E-Sign Co-Sign Detail Recorded Client Recorded Date Recorded By Document 02/27/21 09:19 [facility] [id number] 02/27/21 09:28 [facility] Document 03/06/21 09:23 DL [id number] 03/06/21 09:35 DL 02/27/21 03/06/21 09:19 09:23 Wound Center Nurse 1 #1 left heel CLUSTER -Combined with other wound No -Current Size (cm) - Length 1 2 -Current Size (cm) - Width 1.6 2.7 -Current Size (cm) - Depth 0.6 1.4 -Total Square Cm 1.6 5.4 -Photo Taken No No -Epithelialization None Present -Tunneling No -Undermining/Tunneling Yes -Undermining/Tunneling Starts (O'clock 12 ) -Undermining/Tunneling Ends (O'clock) 12 -Maximum Distance (cm) 1 -Circular Undermining Yes -Exudate Amt Medium -Exudate Type Serosanguineous Serosanguineous -Wound Margin Distinct, Thickened & Outline Rolled Under Attached -Granulation Amt Large (67-100%) Medium (34-66%) -Granulation Quality Red Red -Slough/Fibrin Yes -Necrosis Amt Small (1-33%) Medium (34-66%) -Necrotic Tissue Type Adherent Slough Adherent Slough -Structure Exposed N/A -Texture (Margaret-wound Skin Appearance) Assessed Callus,Scarring -Moisture (Margaret-wound Skin Appearance) Assessed, Maceration Maceration -Color (Margaret-wound Skin Appearance) Assessed, Hemosiderin Erythema,Palor Staining -Temperature (Margaret-wound Skin No Abnormality No Abnormality Appearance) (Pt Warm) (Pt Warm) -Tenderness on Palpation (Margaret-wound Yes No Skin Appearance) -Ulcer Cleansing Soap and Water Soap and Water -Foul Odor after Cleansing No No -Anesthetic Used 5% Lidocaine 4% Lidocaine Gel Solution Lower Limb Edema Present Yes Right Calf (cm) 44.3 42.7 Right Ankle (cm) 26.5 24 Left Calf (cm) 46.5 45.5 Left Ankle (cm) 24.5 28 WC - Nurse 2 - General Ulcer CM Notes Start: 02/27/21 09:19 Freq: Status: Active Protocol: Activity Type Activity Date Activity User E-Sign Co-Sign Detail Recorded Client Recorded Date Recorded By Document 02/27/21 09:54 [id number] 02/27/21 10:07 Document 03/06/21 10:06 [id number] 03/06/21 10:11 02/27/21 03/06/21 09:54 10:06 Wound Center Nurse 2 #1 left heel CLUSTER -Time 09:55 10:07 -Correct Patient Yes Yes -Correct Side, Site, Position Yes Yes -Correct Procedure Yes Yes -Procedure Performed Yes Yes -Type of Procedure Debridement Debridement -Clinical Debridement Subcutaneous Subcutaneous -Tissue Removed Subcutaneous Subcutaneous -Post Debridement (cm) - Length 2.4 3 -Post Debridement (cm) - Width 2.6 2.8 -Post Debridement (cm) - Depth 1.2 1.4 -Total Square (Post) (cm) 6.24 8.4 -Area of Debridement (cm) - Length 2.4 3 -Area of Debridement (cm) - Width 2.6 2.8 -Total Square (Area) (cm) 6.24 8.4 -Tunneling No No -Undermining/Tunneling No No -Circular Undermining No No -Wound/Ulcer Outcome Not Healed Not Healed -Ulcer Cleansing Rinsed/ Rinsed/ Irrigated with Irrigated with Saline Saline -Foul Odor after Cleansing No No -Bioengineered Tissue No No -Bleeding Controlled with Pressure,Silver Pressure Nitrate -Offloading No No -Treatment Response Procedure Procedure Tolerated Well Tolerated Well -Debridement - Subq, 1st 20sq cm Yes Yes Pain Scale: 0-10 Numeric Is Patient Pain Free? Yes Yes - Nurse 3 - General Ulcer D/C NN Start: 02/27/21 09:19 Freq: Status: Active Protocol: Activity Type Activity Date Activity User E-Sign Co-Sign Detail Recorded Client Recorded Date Recorded By Document 02/27/21 10:17 [facility] [id number] 02/27/21 10:18 [facility] 02/27/21 10:17 Wound Care Nurse 3 #1 left heel CLUSTER -Ulcer Cleansing Rinsed/ Irrigated with Saline -Foul Odor after Cleansing No -Primary Dressing Applied Other -Other Dressing moist to dry per mw rn -Primary Dressing Covered/Secured with Dry Gauze & Roll Gauze, Secured with Tape Right -Tubular Bandage Double Layer -Size of Tubigrip Used Size E -Size E ($) 1 Left -Tubular Bandage Double Layer -Size of Tubigrip Used Size E -Size E ($) 1 Treatment Response Procedure Tolerated Well Pain Scale: 0-10 Numeric Is Patient Pain Free? Yes - Visit Discharge Discharge Condition Stable Ambulatory Status Ambulatory, Walker Transportation Private Auto Notes: knee walker Assessment/Plan Assessment/Plan (1) Non-pressure chronic ulcer of left heel and midfoot with fat layer exposed: CODE(S): L97.422 - Non-pressure chronic ulcer of left heel and midfoot with fat layer exposed (2) Type 2 diabetes mellitus with diabetic polyneuropathy: CODE(S): E11.42 - Type 2 diabetes mellitus with diabetic polyneuropathy QUALIFIERS: Diabetes mellitus termite control representative insulin use: with termite control representative use Qualified Code(s): E11.42 - Type 2 diabetes mellitus with diabetic polyneuropathy; Z79.4 - FPC (current) use of insulin (3) Delayed wound healing: CODE(S): T14.8XXD - Other injury of unspecified body region, subsequent encounter (4) Bilateral edema of lower extremity: CODE(S): R60.0 - Localized edema (5) Cellulitis of left foot: CODE(S): L03.116 - Cellulitis of left lower limb (6) Left foot pain: CODE(S): M79.672 - Pain in left foot (7) Corns and callosities: CODE(S): L84 - Corns and callosities (8) Tobacco abuse: CODE(S): Z72.0 - Tobacco use (9) Obesity: CODE(S): E66.9 - Obesity, unspecified QUALIFIERS: Obesity type: due to excess calories Obesity classification: adult class 1 (BMI 30 - 34.9) Serious obesity comorbidity presence: with serious comorbidity Body mass index: BMI 33.0-33.9 Qualified Code(s): E66.09 - Other obesity due to excess calories; Z68.33 - Body mass index [BMI] 33.0-33.9, adult (10) Tinea unguium: CODE(S): B35.1 - Tinea unguium PLAN: Patient seen and examined. Patient wound is noted to have improved with healthier appearance and malodor has resolved. He presents today in croc slip on shoes with assistance of roller aid. He relates no issues with the antibiotics. Patient relates he had follow-up appointment with his primary care provider, Priyanka Brown, and relates that she did not change any medication and stated he was doing okay. PCP is leaving the diabetes management up to his director of national sales, Dr. Mykel Barraza. Patient relates he has missed 2 appointments with him. Reiterated how important seeing him is as his poorly controlled diabetes is one factor that is contributing to his delayed healing. He still has yet to see his director of national sales. Culture of wound was obtained 02/27/21 which was positive for MRSA, proteus, enterococcus, anaerobic cocci, Bacteroides. Patient was initially started on augmentin after appointment. Once MRSA results were seen, patient was prescribed bactrim. Ulcerations were sharply debrided after verbal consent was obtained from the patient. Was done without incident. Discussed importance of cleaning and maintaining foot both to prevent infection as well as to prevent future wounds. Discussed he is at higher risk for wounds due to his diabetes, neuropathy, hyperglycemia, obesity, swelling, and tobacco abuse. Discussed that he needs to cut back on his smoking, preferably quit, and better controlling his blood sugar to better optimize his healing. Patient has not improved his tobacco abuse or his hyperglycemia and does not show incentive to begin changing these habits. Patient is also noted to be rather active based on self reporting especially with yard work. Reviewed how pressure will impact the wound. Patient noted to have offloading surgical shoe. He did not have good tolerance of the total contact cast. He does not always wear his offloading shoes. He is wearing crocks today. Discussed that these are not offloading the wound. Patient also failed to demonstrate significant improvement with epi fix grafting. Discussed how every step adds up to delaying healing. Patient has been giving prescription for cam boot for offloading purposes. Patient has not gotten this filled. Arterial and venous studies were reviewed. Showing likely adequate perfusion for healing. Patient relates he has been smoking since he was 10 years old. Discussed impact smoking has on his vessels as well as impact on wound healing. Patient relates that he is unwilling to quit entirely but he will try to cut back. He does not want any medical assistance at this process. He has not been successful in cutting back Patient to start daily Dakins dressing changes with A&E ointment to lower extremities followed by dry sterile dressing and double Tubigrip compression toes to knee. Discussed the patient needs to start working with us in order to be better compliant for wound to continue healing. Patient seemed to have trouble understanding concepts of proper wound care healing. Discussed going up palliative care route in regards to his wound healing as patient is not able to work with us to improve comorbidities such as better controlled blood sugar, smoking cessation, and poor nutrition etc. Patient was offered referral to [facility], patient refused stating he has been to them before. Reiterated importance fo following up with endocrinology, especially with reported sugars in the 300s All questions answered. Patient is to finish out antibiotics Patient to follow up in 1 week with another practitioner. Patient is aware that I am leaving the wound care center and that his care will be resumed by different physician. Patient understands and is agreeable. This note was generated with [employer] software. It may contain incorrect words, spelling, and punctuation that were not noted in checking the note before signing.
[2021-03-14 08:46] VITALS: BP 119/91; PULSE 67; RESP 20; TEMP 36.5; BMI 33.7
--- NOTE | 2021-03-14 09:31 | PCM.WC.PN ---
History of Present Illness Date of Service: 03/14/21 Chief Complaint: left heel ulcer History of Wound: Patient presents for chronic nonhealing wound to left plantar foot. He is unsure how long it has been there as he can't see or reach his feet. He attributes this largely to his obesity. Patient also has significant swelling to his legs, especially his left. He relates he has smoked since he was 10 years old. He also has significant medical history of tobacco abuse, obesity, CAMACHO, edema, COPD, hypercapnia, diabetes with neuropathy. Patient has also had admission to the hospital for hypoxemia and heart failure in August 2020. Patient was noted to be discharged on oxygen therapy. Patient did not present to the clinic today on his oxygen again. He relates that conference manager recommends he is use 2 L of oxygen. Patient has not been using this. Patient is noted to have significant delayed healing. It is most likely due to his comorbidities including uncontrolled diabetes, morbid obesity, tobacco abuse. Patient seems reluctant to have these factors better controlled in order to promote wound healing. He denies fever, chill, nausea, vomiting. He has been able to perform dressing changes. He recently also saw his rn gastroenterology and reports medication adjustments were made to help improve his glucose. Progress of Wound: Improved Objective Data Objective Data Vital Signs: Vital Signs Temp Pulse Resp BP 97.7 F L 67 20 H 119/91 H 03/14/21 08:46 03/14/21 08:46 03/14/21 08:46 03/14/21 08:46 Oxygen Delivery Method Room Air Body Mass Index (BMI) 33.7 Lab / Micro Data Result Diagrams: 03/14/21 10:30 03/14/21 10:30 Micro: Microbiology 02/27/21 09:58 Wound Abcess - Heel, Left Gram Stain - Final 02/27/21 09:58 Wound Abcess - Heel, Left Wound Culture - Final Proteus mirabilis Meth. resistant Staph. aureus Enterococcus faecalis 02/27/21 09:58 Wound Abcess - Heel, Left Anaerobic Culture - Final Anaerobic cocci Bacteroides thetaiotaomicron Physical Exam Narrative Const alert and no apparent distress General Appearance: cooperative and comfortable Resp normal respiratory effort Effort and Inspection: able to speak in complete sentences Extremity no calf tenderness, negative milo and draper sign lower extremity edema left worse than right General Extremity: Negative for clubbing or cyanosis or ecchymosis or erythema Vasc Peripheral Pulses: posterior tibial pulses present but diminished and dorsalis pedis pulses present but diminished, normal capillary refill, no acute ischemic skin changes noted, normal temperature Skin General Skin Exam: dry skin, decreased hair growth noted; Negative for ecchymosis, eschar, pallor, rashes Wound Narrative: ulcer noted to plantar left heel Healthy in appearance today. No malodor. No purulence, probing to bone, streaking, fluctuation, crepitus. Skin is its normal color. Mild periwound maceration noted. Skin is atrophic and hairless. Granular and fat base. Minimal serosanguinous drainage. No buildup of callus noted periwound as well as to posterior medial and lateral heel in general. Pain to palpation of left heel especially posterior to wound; large callous noted. Wound is to level of fat. Neuro Gait (Neuro): heel to toe Sensory Exam: extremities light-touch: decreased MSK Motor Exam: strength 5/5 throughout, ROM to foot and ankle joints within normal limits Psych Appearance: appropriate Attitude: calm Debridement Note Debridement Note Wound debrided: left plantar heel Wound Grade/Stage: 1 Type of Debridement: Excisional debridement Anesthesia Used: 4% Lidocaine Solution Depth: in the subcutaneous layer Percentage of wound debrided: 100 Instrument Used: #15 blade Tissue Removed: fibrous, devitalized subcutaneous, biofilm, slough Severity: Fat Layer Exposed Amount of bleeding with debridement: Mild Bleeding Controlled with: Pressure Patient tolerated procedure: Patient tolerated procedure well Post-Debridement Measurements and Additional Note: Post-Debridement Measurements/Treatment - Nurse 1 - General Ulcer Assessment Start: 02/27/21 09:19 Freq: Status: Active Protocol: EVELYN Activity Type Activity Date Activity User E-Sign Co-Sign Detail Recorded Client Recorded Date Recorded By Document 02/27/21 09:19 [facility] [id number] 02/27/21 09:28 BMF Document 03/06/21 09:23 DL [id number] 03/06/21 09:35 DL Document 03/14/21 08:46 DL [id number] 03/14/21 08:56 DL 02/27/21 03/06/21 03/14/21 09:19 09:23 08:46 - Today's Visit Information Type of service Follow-up Visit Follow-up Visit Follow-up Visit (Physician/YOUTH SUPPORT WORKER (Physician/YOUTH SUPPORT WORKER (Physician/YOUTH SUPPORT WORKER ) ) ) Arrival Mode Ambulatory, Ambulatory Walker Walker Transfer Assistance None None None Patient Identification Verified (Name & Yes Yes Yes ) Patient Requires Transmission-Based No No No Precautions Finger Stick Blood Sugar(mg/dl) (if 131 131 indicated): Blood Sugar Stated by Stated by Patient Patient Height and Weight Body Mass Index (BMI) 33.7 33.7 33.7 BMI Classification Obese Obese Obese Vital Signs Temperature (97.8 F-99.1 F) 97.2 F L 98.2 F 97.7 F L Temperature Source Temporal Temporal Temporal Pulse Rate (60-100) 61 64 67 Pulse Location Monitor Monitor Monitor Respiratory Rate (12-18) 18 20 H 20 H Respiratory rate source Observation Observation Observation Oxygen Delivery Method Room Air Blood Pressure (90/60-120/80) 145/56 H 133/79 H 119/91 H Blood Pressure Mean (mm Hg) 85 97 100 Source Monitor Monitor Monitor Position Sitting Blood Pressure Location Left Arm History Since Last Visit- (Skip if this is Patient's initial visit) Have you changed medications since your No No No last visit? Any new allergies or adverse reactions No No No Had a fall/change in ADL's that may No No No increase risk of falls Signs or symptoms of abuse and/or No No neglect since last visit Have you been in the hospital since your No No No last visit? Has dressing in place as prescribed Yes Yes Yes Has compression in place as prescribed Yes Yes Yes Has offloadiing in place as prescribed Yes Yes Yes Experienced any changes in pain level or No No No management Left Footwear Regular Shoe Right Footwear Regular Shoe Pain Scale: 0-10 Numeric Is Patient Pain Free? Yes Yes Yes WC - Nurse 1 - General Ulcer Measurement Start: 02/27/21 09:19 Freq: Status: Active Protocol: Activity Type Activity Date Activity User E-Sign Co-Sign Detail Recorded Client Recorded Date Recorded By Document 02/27/21 09:19 [facility] [id number] 02/27/21 09:28 BMF Document 03/06/21 09:23 DL [id number] 03/06/21 09:35 DL Document 03/14/21 08:46 DL [id number] 03/14/21 08:56 DL 02/27/21 03/06/21 03/14/21 09:19 09:23 08:46 Wound Center Nurse 1 #1 left heel CLUSTER -Combined with other wound No -Current Size (cm) - Length 1 2 2.2 -Current Size (cm) - Width 1.6 2.7 2.5 -Current Size (cm) - Depth 0.6 1.4 1.2 -Total Square Cm 1.6 5.4 5.50 -Photo Taken No No No -Epithelialization None Present -Tunneling No -Tunneling Position (O'clock) 5 -Tunneling Distance (cm) 0.7 -Undermining/Tunneling Yes -Undermining/Tunneling Starts (O'clock 12 ) -Undermining/Tunneling Ends (O'clock) 12 -Maximum Distance (cm) 1 -Circular Undermining Yes -Exudate Amt Medium Medium -Exudate Type Serosanguineous Serosanguineous Serosanguineous -Wound Margin Distinct, Thickened & Thickened Outline Rolled Under Attached -Granulation Amt Large (67-100%) Medium (34-66%) Medium (34-66%) -Granulation Quality Red Red Red -Slough/Fibrin Yes -Necrosis Amt Small (1-33%) Medium (34-66%) Medium (34-66%) -Necrotic Tissue Type Adherent Slough Adherent Slough Adherent Slough -Structure Exposed N/A N/A -Texture (Margaret-wound Skin Appearance) Assessed Callus,Scarring Scarring -Moisture (Margaret-wound Skin Appearance) Assessed, Maceration Maceration Maceration -Color (Margaret-wound Skin Appearance) Assessed, Hemosiderin Hemosiderin Erythema,Palor Staining Staining -Temperature (Margaret-wound Skin No Abnormality No Abnormality No Abnormality Appearance) (Pt Warm) (Pt Warm) (Pt Warm) -Tenderness on Palpation (Margaret-wound Yes No No Skin Appearance) -Ulcer Cleansing Soap and Water Soap and Water Rinsed/ Irrigated with Saline -Foul Odor after Cleansing No No No -Anesthetic Used 5% Lidocaine 4% Lidocaine 4% Lidocaine Gel Solution Solution,5% Lidocaine Gel Lower Limb Edema Present Yes Right Calf (cm) 44.3 42.7 42.5 Right Ankle (cm) 26.5 24 24.2 Left Calf (cm) 46.5 45.5 43.2 Left Ankle (cm) 24.5 28 23.3 WC - Nurse 2 - General Ulcer CM Notes Start: 02/27/21 09:19 Freq: Status: Active Protocol: Activity Type Activity Date Activity User E-Sign Co-Sign Detail Recorded Client Recorded Date Recorded By Document 02/27/21 09:54 [id number] 02/27/21 10:07 Document 03/06/21 10:06 [id number] 03/06/21 10:11 Document 03/14/21 09:09 [id number] 03/14/21 09:19 02/27/21 03/06/21 03/14/21 09:54 10:06 09:09 Wound Center Nurse 2 #1 left heel CLUSTER -Time 09:55 10:07 09:10 -Correct Patient Yes Yes Yes -Correct Side, Site, Position Yes Yes Yes -Correct Procedure Yes Yes Yes -Procedure Performed Yes Yes Yes -Type of Procedure Debridement Debridement Debridement -Clinical Debridement Subcutaneous Subcutaneous Subcutaneous -Tissue Removed Subcutaneous Subcutaneous Subcutaneous -Post Debridement (cm) - Length 2.4 3 2.5 -Post Debridement (cm) - Width 2.6 2.8 2.2 -Post Debridement (cm) - Depth 1.2 1.4 9 -Total Square (Post) (cm) 6.24 8.4 5.50 -Area of Debridement (cm) - Length 2.4 3 2.5 -Area of Debridement (cm) - Width 2.6 2.8 2.2 -Total Square (Area) (cm) 6.24 8.4 5.50 -Tunneling No No No -Undermining/Tunneling No No No -Circular Undermining No No No -Wound/Ulcer Outcome Not Healed Not Healed Not Healed -Ulcer Cleansing Rinsed/ Rinsed/ Rinsed/ Irrigated with Irrigated with Irrigated with Saline Saline Saline -Foul Odor after Cleansing No No No -Bioengineered Tissue No No No -Bleeding Controlled with Pressure,Silver Pressure Pressure Nitrate -Offloading No No No -Treatment Response Procedure Procedure Procedure Tolerated Well Tolerated Well Tolerated Well -Debridement - Subq, 1st 20sq cm Yes Yes Yes Pain Scale: 0-10 Numeric Is Patient Pain Free? Yes Yes Yes - Nurse 3 - General Ulcer D/C NN Start: 02/27/21 09:19 Freq: Status: Active Protocol: Activity Type Activity Date Activity User E-Sign Co-Sign Detail Recorded Client Recorded Date Recorded By Document 02/27/21 10:17 [facility] [id number] 02/27/21 10:18 BMF Document 03/06/21 10:17 [facility] [id number] 03/06/21 10:18 BMF 02/27/21 03/06/21 10:17 10:17 Wound Care Nurse 3 #1 left heel CLUSTER -Ulcer Cleansing Rinsed/ Rinsed/ Irrigated with Irrigated with Saline Saline -Foul Odor after Cleansing No No -Primary Dressing Applied Other Other -Other Dressing moist to dry betadine gauze per mw rn -Primary Dressing Covered/Secured with Dry Gauze & Dry Gauze & Roll Gauze, Roll Gauze, Secured with Secured with Tape Tape,Other -Other Covering heel hat, fluffed gauze per mw rn Right -Tubular Bandage Double Layer Single Layer -Size of Tubigrip Used Size E Size D -Size D ($) 1 -Size E ($) 1 Left -Tubular Bandage Double Layer Single Layer -Size of Tubigrip Used Size E Size D -Size D ($) 1 -Size E ($) 1 Treatment Response Procedure Procedure Tolerated Well Tolerated Well Pain Scale: 0-10 Numeric Is Patient Pain Free? Yes Yes WC - Visit Discharge Discharge Condition Stable Stable Ambulatory Status Ambulatory, Ambulatory, Walker Walker Transportation Private Auto Private Auto Notes: knee walker Facility Type Home Health Assessment/Plan Assessment/Plan (1) Type 2 diabetes mellitus with diabetic polyneuropathy: CODE(S): E11.42 - Type 2 diabetes mellitus with diabetic polyneuropathy QUALIFIERS: Diabetes mellitus intermediate manager insulin use: with assisted use Qualified Code(s): E11.42 - Type 2 diabetes mellitus with diabetic polyneuropathy; Z79.4 - care home (current) use of insulin (2) Delayed wound healing: CODE(S): T14.8XXD - Other injury of unspecified body region, subsequent encounter (3) Bilateral edema of lower extremity: CODE(S): R60.0 - Localized edema (4) Cellulitis of left foot: CODE(S): L03.116 - Cellulitis of left lower limb (5) Left foot pain: CODE(S): M79.672 - Pain in left foot (6) Tobacco abuse: CODE(S): Z72.0 - Tobacco use (7) Obesity: CODE(S): E66.9 - Obesity, unspecified QUALIFIERS: Obesity type: due to excess calories Obesity classification: adult class 1 (BMI 30 - 34.9) Serious obesity comorbidity presence: with serious comorbidity Body mass index: BMI 33.0-33.9 Qualified Code(s): E66.09 - Other obesity due to excess calories; Z68.33 - Body mass index [BMI] 33.0-33.9, adult (8) Ulcer of left foot with fat layer exposed: CODE(S): L97.522 - Non-pressure chronic ulcer of other part of left foot with fat layer exposed (9) Difficulty in walking: CODE(S): R26.2 - Difficulty in walking, not elsewhere classified PLAN: Patient seen and examined. I reviewed and discussed his case. Debridement was performed as noted in the clinical nursing panel. Dressing recommendation: To change dressing daily with Dakin wet-to-dry. Wash: Antibacterial soap and water. Avoid soaking. Patient wound is noted to have improved with healthier appearance and there is no malodor. There are no local signs infection noted today. It is noted he was recently started on a cellulitis treatment plan per chart review. He presents today in [facility] slip on shoes. Patient relates he had follow-up appointment with his primary care provider, Priyanka Brown, and relates that she did not change any medication and stated he was doing okay. PCP is leaving the diabetes management up to his rn gastroenterology, Dr. Mykel Barraza. He was able to follow-up and recommendations were updated. Medical record request will be requested. Culture of wound was obtained 02/27/21 which was positive for MRSA, proteus, enterococcus, anaerobic cocci, Bacteroides. Completed a full course of Augmentin and Bactrim. I recommend updating his labs including CBC, CMP, ESR, CRP, hemoglobin A1c. I also recommend updating his foot x-rays. Orders were provided today. Discussed importance of cleaning and maintaining foot both to prevent infection as well as to prevent future wounds. Discussed he is at higher risk for wounds due to his diabetes, neuropathy, hyperglycemia, obesity, swelling, and tobacco abuse. Discussed that he needs to cut back on his smoking, preferably quit, and better controlling his blood sugar to better optimize his healing. Patient has not improved his tobacco abuse or his hyperglycemia and does not show incentive to begin changing these habits. Patient is also noted to be rather active based on self reporting especially with yard work. Reviewed how pressure will impact the wound. Patient noted to have offloading surgical shoe. He did not have good tolerance of the total contact cast. I recommended getting more serious about offloading with a cam walker boot. A prescription was provided today with dual density offloading Plastizote liners with pocket to take pressure off of the heel ulcer site. I recommend using this concurrently with a walker or crutches to take pressure off the entire limb. Arterial and venous studies were reviewed. Showing likely adequate perfusion for healing. Patient relates he has been smoking since he was 10 years old. Discussed impact smoking has on his vessels as well as impact on wound healing. Patient relates that he is unwilling to quit entirely but he will try to cut back. He does not want any medical assistance at this process. Edema management: Tubigrip compression toes to knee. All questions answered. Patient is to finish out antibiotics Patient to follow up in 1 week with another practitioner. I answered all of his questions. This note was generated with [employer] dictation software. It may contain incorrect words, spelling, and punctuation that were not noted in checking the note before signing. The medical decision making level is moderate based on data including at least three of the following: review of prior external notes, review of a test, ordering a test, assessment requiring an independent historian. The medical decision making level is moderate. There is noted moderate risk of morbidity after considering this treatment plan and diagnostic data. Considerations were given to prescription management, decisions regarding surgical options, or social determinants of health.
--- NOTE | 2021-03-14 10:14 | RAD_ITS ---
STUDY: X-RAY - LEFT FOOT CLINICAL: Male, 65 years old. Ulceration. TECHNIQUE: 3 view(s) of the foot. COMPARISON: 12/19/2020. FINDINGS: Normal talus, calcaneus, and tarsal bones. Normal visualized subtalar, talonavicular, calcaneocuboid, tarsal and tarsometatarsal articulations. Normal metatarsi. Normal metatarsophalangeal joint of the great toe. Normal tibial and fibular sesamoid bones. Normal interphalangeal joint of the great toe. Normal phalanges of the great toe. Normal second through fifth metatarsophalangeal joints. Normal interphalangeal joints and phalanges of the lesser toes. Soft tissue ulceration in the posterior aspect of the calcaneus. No bony erosion. RAD/Foot min 3 Views IMPRESSION: Superficial soft tissue ulceration adjacent to the posterior aspect of the calcaneus. No evidence of osteomyelitis. Electronically Signed: Benedicto Edwards MD at 13:43 EDT , Service support ,
[2021-03-14 11:20] LABS: Erythrocyte Sedimentation Rate 34 mm/hr (0-20)
[2021-03-14 11:21] LABS: Absolute Lymphocyte Count 2.44 X10^3/uL (0.83-4.51); Basophil# 0.05 X10^3/uL; Basophil% 0.6 % (0-1); Eosinophil# 0.35 X10^3/uL; Eosinophils% 4.1 % (0-5); Hematocrit 52.1 % (40-54); Hemoglobin 16.5 g/dL (13.0-16.5); Lymphocyte # 2.44 X10^3/ul (0.83-4.51); Lymphocyte % 28.3 % (19-41); Mean Corp Hgb Conc 31.7 g/dL (32-36); Mean Corpuscular Hgb 28.5 pg (27.0-32.0); Mean Platelet Vol. 10.4 fl (6.2-12.0); Monocyte# 0.82 X10^3/uL; Monocyte% 9.5 % (0-10); NRBC Flagged by Analyzer 0 % (0-5); Neutrophil # 4.95 X10^3/uL (2.7-7.7); Neutrophil % 57.3 % (47-70); Platelet Count 206 K/mm3 (150-450); RBC Distribution Width CV 14.1 % (11.6-14.6); RBC Distribution Width SD 46.1 fl (35.1-43.9); Red Blood Count 5.79 M/mm3 (4.6-6.2); White Blood Count 8.6 K/mm3 (4.4-11.0)
[2021-03-14 11:26] LABS: ALB/GLOB Ratio 0.6 RATIO (0.9-2.4); AST(SGOT) 19 U/L (15-37); Alanine Aminotransfer ALT/SGPT 34 U/L (16-61); Albumin, Serum 2.8 g/dL (3.2-5.0); Alkaline Phosphatase 122 U/L (45-117); Anion Gap 4 (5-15); BUN 37 mg/dL (7-18); BUN/Creat Ratio 12.6 RATIO (10-20); Calcium,Total 9.3 mg/dL (8.5-10.1); Chloride 102 mmol/L (98-107); Creatinine, Serum 2.93 mg/dL (0.70-1.30); EST Glomerular Filtration Rate 23 mL/min (>60); Est Glom Filt Rate - Afr Amer 28 mL/min (>60); Globulin 4.5 g/dL (2.2-4.2); Glucose 155 mg/dL (74-106); Potassium 5.3 mmol/L (3.5-5.1); Protein, Total 7.3 g/dL (6.4-8.2); Sodium Level 137 mmol/L (136-145)
== END 2021-03-18 23:59 ==
LOC: WC 08:45
PROVIDERS: Referring Provider Podiatrist Foot & Ankle Surgery; Visit Provider Podiatrist
DX: E11.621 Type 2 diabetes mellitus with foot ulcer (principal); L97.422 Non-pressure chronic ulcer of left heel and midfoot with fat layer exposed; M79.89 Other specified soft tissue disorders; L84 Corns and callosities; I10 Essential (primary) hypertension; E66.09 Other obesity due to excess calories; Z68.33 Body mass index [BMI] 33.0-33.9, adult; E11.42 Type 2 diabetes mellitus with diabetic polyneuropathy; F17.200 Nicotine dependence, unspecified, uncomplicated; J44.9 Chronic obstructive pulmonary disease, unspecified; B35.1 Tinea unguium
CPT/HCPCS: 11042; 36415; 73630; 80053; 85025; 85652; 86140; 87070; 87075; 87077; 87186; 87205; 87640

== ENCOUNTER 2021-04-11 08:45 | Outpatient (RCR) | payer MEDICARE, BC, SELFPAY ==
[2021-03-19 00:20] VITALS: BP 119/91; PULSE 67; RESP 20; TEMP 36.5; BMI 33.7
[2021-03-21 09:41] VITALS: BP 155/79; PULSE 62; RESP 18; TEMP 36.4; BMI 33.7
--- NOTE | 2021-03-21 10:32 | PCM.WC.PN ---
History of Present Illness Date of Service: 03/21/21 Chief Complaint: left heel ulcer History of Wound: Patient presents for chronic nonhealing wound to left plantar foot. He is unsure how long it has been there as he can't see or reach his feet. He attributes this largely to his obesity. Patient also has significant swelling to his legs, especially his left. He relates he has smoked since he was 10 years old. He also has significant medical history of tobacco abuse, obesity, CAMACHO, edema, COPD, hypercapnia, diabetes with neuropathy. Patient has also had admission to the hospital for hypoxemia and heart failure in August 2020. Patient was noted to be discharged on oxygen therapy. Patient did not present to the clinic today on his oxygen again. He relates that vending machine filler recommends he is use 2 L of oxygen. Patient has not been using this. Patient is noted to have significant delayed healing. It is most likely due to his comorbidities including uncontrolled diabetes, morbid obesity, tobacco abuse. Patient seems reluctant to have these factors better controlled in order to promote wound healing. He denies fever, chill, nausea, vomiting. He has been able to perform dressing changes. He recently also saw his erp analyst and reports medication adjustments were made to help improve his glucose. Objective Data Objective Data Vital Signs: Vital Signs Temp Pulse Resp BP 97.5 F L 62 18 155/79 H 03/21/21 09:41 03/21/21 09:41 03/21/21 09:41 03/21/21 09:41 Oxygen Delivery Method Room Air Body Mass Index (BMI) 33.7 Physical Exam Narrative Const alert and no apparent distress General Appearance: cooperative and comfortable Resp normal respiratory effort Effort and Inspection: able to speak in complete sentences Extremity no calf tenderness, negative milo and draper sign lower extremity edema left worse than right General Extremity: Negative for clubbing or cyanosis or ecchymosis or erythema Vasc Peripheral Pulses: posterior tibial pulses present but diminished and dorsalis pedis pulses present but diminished, normal capillary refill, no acute ischemic skin changes noted, normal temperature Skin General Skin Exam: dry skin, decreased hair growth noted; Negative for ecchymosis, eschar, pallor, rashes Wound Narrative: ulcer noted to plantar left heel Healthy in appearance today. No malodor. No purulence, probing to bone, streaking, fluctuation, crepitus. Skin is its normal color. Mild periwound maceration noted. Skin is atrophic and hairless. Granular and fat base. Minimal serosanguinous drainage. No buildup of callus noted periwound as well as to posterior medial and lateral heel in general. Pain to palpation of left heel especially posterior to wound; large callous noted. Wound is to level of fat. Neuro Gait (Neuro): heel to toe Sensory Exam: extremities light-touch: decreased MSK Motor Exam: strength 5/5 throughout, ROM to foot and ankle joints within normal limits Psych Appearance: appropriate Attitude: calm Debridement Note Debridement Note Wound debrided: left foot Wound Grade/Stage: 1 Type of Debridement: Excisional debridement Anesthesia Used: 4% Lidocaine Solution Depth: in the subcutaneous layer Percentage of wound debrided: 100 Instrument Used: #15 blade Tissue Removed: fibrous, devitalized subcutaneous, biofilm, slough Severity: Fat Layer Exposed Amount of bleeding with debridement: Mild Bleeding Controlled with: Pressure Patient tolerated procedure: Patient tolerated procedure well Post-Debridement Measurements and Additional Note: Post-Debridement Measurements/Treatment - Nurse 1 - General Ulcer Assessment Start: 03/21/21 09:41 Freq: Status: Active Protocol: EVELYN Activity Type Activity Date Activity User E-Sign Co-Sign Detail Recorded Client Recorded Date Recorded By Document 03/21/21 09:41 MT Desktop 03/21/21 09:51 MT 03/21/21 09:41 - Today's Visit Information Type of service Follow-up Visit (Physician/MEDICAL OFFICE SCHEDULER ) Arrival Mode Ambulatory Height and Weight Body Mass Index (BMI) 33.7 BMI Classification Obese Vital Signs Temperature (97.8 F-99.1 F) 97.5 F L Temperature Source Temporal Pulse Rate (60-100) 62 Pulse Location Monitor Respiratory Rate (12-18) 18 Respiratory rate source Observation Oxygen Delivery Method Room Air Blood Pressure (90/60-120/80) 155/79 H Blood Pressure Mean (mm Hg) 104 Source Monitor Position Sitting Blood Pressure Location Left Arm History Since Last Visit- (Skip if this is Patient's initial visit) Have you been in the hospital since your Yes last visit? Has dressing in place as prescribed Yes - Nurse 1 - General Ulcer Measurement Start: 03/21/21 09:41 Freq: Status: Active Protocol: Activity Type Activity Date Activity User E-Sign Co-Sign Detail Recorded Client Recorded Date Recorded By Document 03/21/21 09:41 MN Desktop 03/21/21 09:51 MT 03/21/21 09:41 Wound Center Nurse 1 #1 left heel CLUSTER -Current Size (cm) - Length 2.3 -Current Size (cm) - Width 2.5 -Current Size (cm) - Depth 0.7 -Total Square Cm 5.75 -Tunneling No -Undermining/Tunneling No -Circular Undermining No -Exudate Amt Medium -Exudate Type Serosanguineous -Wound Margin Thickened & Rolled Under -Granulation Amt Large (67-100%) -Granulation Quality Pale,Bradley -Slough/Fibrin No -Texture (Margaret-wound Skin Appearance) Assessed, Localized Edema -Moisture (Margaret-wound Skin Appearance) Assessed, Maceration -Color (Margaret-wound Skin Appearance) Assessed -Temperature (Margaret-wound Skin No Abnormality Appearance) (Pt Warm) -Tenderness on Palpation (Margaret-wound No Skin Appearance) -Ulcer Cleansing Rinsed/ Irrigated with Saline -Foul Odor after Cleansing No -Anesthetic Used 4% Lidocaine Solution Lower Limb Edema Present Yes Right Calf (cm) 43.2 Right Ankle (cm) 26 Left Calf (cm) 49 Left Ankle (cm) 31 WC - Nurse 2 - General Ulcer CM Notes Start: 03/21/21 09:41 Freq: Status: Active Protocol: Activity Type Activity Date Activity User E-Sign Co-Sign Detail Recorded Client Recorded Date Recorded By Document 03/21/21 10:11 DANIEL [id number] 03/21/21 10:25 DANIEL 03/21/21 10:11 Wound Center Nurse 2 #1 left heel CLUSTER -Time 10:11 -Correct Patient Yes -Correct Side, Site, Position Yes -Correct Procedure Yes -Procedure Performed Yes -Type of Procedure Debridement -Clinical Debridement Subcutaneous -Tissue Removed Subcutaneous -Post Debridement (cm) - Length 2.4 -Post Debridement (cm) - Width 2.5 -Post Debridement (cm) - Depth 0.6 -Total Square (Post) (cm) 6.00 -Area of Debridement (cm) - Length 2.4 -Area of Debridement (cm) - Width 2.5 -Total Square (Area) (cm) 6.00 -Tunneling No -Undermining/Tunneling No -Circular Undermining No -Wound/Ulcer Outcome Not Healed -Ulcer Cleansing Rinsed/ Irrigated with Saline -Foul Odor after Cleansing No -Bioengineered Tissue No -Bleeding Controlled with Pressure -Offloading Yes -Type of Offloading Camwalker -Treatment Response Procedure Tolerated Well -Debridement - Subq, 1st 20sq cm Yes Assessment/Plan Assessment/Plan (1) Type 2 diabetes mellitus with diabetic polyneuropathy: CODE(S): E11.42 - Type 2 diabetes mellitus with diabetic polyneuropathy QUALIFIERS: Diabetes mellitus rodent exterminator insulin use: with rodent exterminator use Qualified Code(s): E11.42 - Type 2 diabetes mellitus with diabetic polyneuropathy; Z79.4 - termite exterminator (current) use of insulin (2) Delayed wound healing: CODE(S): T14.8XXD - Other injury of unspecified body region, subsequent encounter (3) Bilateral edema of lower extremity: CODE(S): R60.0 - Localized edema (4) Cellulitis of left foot: CODE(S): L03.116 - Cellulitis of left lower limb (5) Left foot pain: CODE(S): M79.672 - Pain in left foot (6) Tobacco abuse: CODE(S): Z72.0 - Tobacco use (7) Obesity: CODE(S): E66.9 - Obesity, unspecified QUALIFIERS: Body mass index: BMI 33.0-33.9 Obesity classification: adult class 1 (BMI 30 - 34.9) Obesity type: due to excess calories Serious obesity comorbidity presence: with serious comorbidity Qualified Code(s): E66.09 - Other obesity due to excess calories; Z68.33 - Body mass index [BMI] 33.0-33.9, adult (8) Ulcer of left foot with fat layer exposed: CODE(S): L97.522 - Non-pressure chronic ulcer of other part of left foot with fat layer exposed (9) Difficulty in walking: CODE(S): R26.2 - Difficulty in walking, not elsewhere classified PLAN: Patient seen and examined. I reviewed and discussed his case. Debridement was performed as noted in the clinical nursing panel. Dressing recommendation: To change dressing daily with Dakin wet-to-dry. Wash: Antibacterial soap and water. Avoid soaking. Patient wound is noted to have improved with healthier appearance and there is no malodor. There are no local signs infection noted today. It is noted he was recently started on a cellulitis treatment plan per chart review. He presents today in [facility] slip on shoes. Patient relates he had follow-up appointment with his primary care provider, Priyanka Brown, and relates that she did not change any medication and stated he was doing okay. PCP is leaving the diabetes management up to his erp analyst, Dr. Mykel Barraza. He was able to follow-up and recommendations were updated. Medical record request will be requested. Culture of wound was obtained 02/27/21 which was positive for MRSA, proteus, enterococcus, anaerobic cocci, Bacteroides. Completed a full course of Augmentin and Bactrim. His reduced renal function is noted and adjusted antibiotic doses will be considered in the future if he needs a refill. He is stable at this time. I recommend updating his labs including CBC, CMP, ESR, hemoglobin A1c. I also recommend updating his foot x-rays. Orders were provided previously. His white blood cell count was 8.6, ESR 34. His last A1c on file was 10.3% in . His foot x-rays were reviewed from last week and these do not demonstrate any acute osseous destruction, fracture, dislocation, soft tissue emphysema or foreign body. His skin discontinuity consistent with his ulcer site is seen. Discussed importance of cleaning and maintaining foot both to prevent infection as well as to prevent future wounds. Discussed he is at higher risk for wounds due to his diabetes, neuropathy, hyperglycemia, obesity, swelling, and tobacco abuse. Discussed that he needs to cut back on his smoking, preferably quit, and better controlling his blood sugar to better optimize his healing. Patient has not improved his tobacco abuse or his hyperglycemia and does not show incentive to begin changing these habits. Patient is also noted to be rather active based on self reporting especially with yard work. Reviewed how pressure will impact the wound. Patient noted to have offloading surgical shoe. He did not have good tolerance of the total contact cast. I recommended getting more serious about offloading with a cam walker boot. A prescription was provided previously dual density offloading Plastizote liners with pocket to take pressure off of the heel ulcer site. To obtain at [facility]. I recommend using this concurrently with a walker or crutches to take pressure off the entire limb. Arterial studies were reviewed. Showing likely adequate perfusion for healing. Right LAI is 0.99 and left 1.18. Right toe brachial index 0.76 and left 0.71. Patient relates he has been smoking since he was 10 years old. Discussed impact smoking has on his vessels as well as impact on wound healing. Patient relates that he is unwilling to quit entirely but he will try to cut back. He does not want any medical assistance at this process. Edema management: Tubigrip compression toes to knee. All questions answered. Patient to follow up in 1 week or call sooner if status worsening or if questions. I answered all of his questions. This note was generated with [employer] dictation software. It may contain incorrect words, spelling, and punctuation that were not noted in checking the note before signing. The medical decision making level is moderate based on data including at least three of the following: review of prior external notes, review of a test, ordering a test, assessment requiring an independent historian. The medical decision making level is moderate. There is noted moderate risk of morbidity after considering this treatment plan and diagnostic data. Considerations were given to prescription management, decisions regarding surgical options, or social determinants of health.
[2021-03-28 09:30] VITALS: BP 128/74; PULSE 65; RESP 24; TEMP 36.7; BMI 33.7
--- NOTE | 2021-03-28 10:33 | PCM.WC.PN ---
History of Present Illness Date of Service: 03/28/21 Chief Complaint: left heel ulcer History of Wound: Patient presents for chronic nonhealing wound to left plantar foot. He is unsure how long it has been there as he can't see or reach his feet. He attributes this largely to his obesity. Patient also has significant swelling to his legs, especially his left. He relates he has smoked since he was 10 years old. He also has significant medical history of tobacco abuse, obesity, CAMACHO, edema, COPD, hypercapnia, diabetes with neuropathy. Patient has also had admission to the hospital for hypoxemia and heart failure in August 2020. Patient was noted to be discharged on oxygen therapy. Patient did not present to the clinic today on his oxygen again. He relates that log scaler recommends he is use 2 L of oxygen. Patient has not been using this. Patient is noted to have significant delayed healing. It is most likely due to his comorbidities including uncontrolled diabetes, morbid obesity, tobacco abuse. Patient seems reluctant to have these factors better controlled in order to promote wound healing. He denies fever, chill, nausea, vomiting. He has been able to perform dressing changes. He recently also saw his auto appraiser and reports medication adjustments were made to help improve his glucose. He is trying to keep weight off of his foot however this is very difficult. He asks about ways to improve his nutrition to reduce his pain and improve his chances of healing. Progress of Wound: Stable Objective Data Objective Data Vital Signs: Vital Signs Temp Pulse Resp BP 98.1 F 65 24 H 128/74 H 03/28/21 09:30 03/28/21 09:30 03/28/21 09:30 03/28/21 09:30 Oxygen Delivery Method Room Air Body Mass Index (BMI) 33.7 Physical Exam Narrative Const alert and no apparent distress General Appearance: cooperative and comfortable Extremity no calf tenderness, negative milo and draper sign lower extremity edema left worse than right General Extremity: Negative for clubbing or cyanosis or ecchymosis or erythema Vasc Peripheral Pulses: posterior tibial pulses present but diminished and dorsalis pedis pulses present but diminished, normal capillary refill, no acute ischemic skin changes noted, normal temperature Skin General Skin Exam: dry skin, decreased hair growth noted; Negative for ecchymosis, eschar, pallor, rashes Wound Narrative: ulcer noted to plantar left heel Healthy in appearance today. No malodor. No purulence, probing to bone, streaking, fluctuation, crepitus. Skin is its normal color. no periwound maceration noted. Skin is atrophic and hairless. Granular and fat base. Minimal serosanguinous drainage. No buildup of callus noted periwound as well as to posterior medial and lateral heel in general. Pain to palpation of left heel especially posterior to wound decreased Neuro Gait (Neuro): heel to toe Sensory Exam: extremities light-touch: decreased Debridement Note Debridement Note Wound debrided: left heel Wound Grade/Stage: 1 Type of Debridement: Excisional debridement Anesthesia Used: 4% Lidocaine Solution Depth: in the subcutaneous layer Percentage of wound debrided: 100 Instrument Used: #15 blade Tissue Removed: fibrous, devitalized subcutaneous, biofilm, slough Severity: Fat Layer Exposed Amount of bleeding with debridement: Mild Bleeding Controlled with: Pressure Patient tolerated procedure: Patient tolerated procedure well Post-Debridement Measurements and Additional Note: Post-Debridement Measurements/Treatment WC - Nurse 1 - General Ulcer Assessment Start: 03/21/21 09:41 Freq: Status: Active Protocol: EVELYN Activity Type Activity Date Activity User E-Sign Co-Sign Detail Recorded Client Recorded Date Recorded By Document 03/21/21 09:41 MT Desktop 03/21/21 09:51 MT Document 03/28/21 09:30 DL Desktop 03/28/21 09:37 DL 03/21/21 03/28/21 09:41 09:30 - Today's Visit Information Type of service Follow-up Visit Follow-up Visit (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 (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 ) ) Arrival Mode Ambulatory Walker Transfer Assistance None Patient Identification Verified (Name & Yes ) Patient Requires Transmission-Based No Precautions Finger Stick Blood Sugar(mg/dl) (if 121 indicated): Blood Sugar Stated by Patient Height and Weight Body Mass Index (BMI) 33.7 33.7 BMI Classification Obese Obese Vital Signs Temperature (97.8 F-99.1 F) 97.5 F L 98.1 F Temperature Source Temporal Oral Pulse Rate (60-100) 62 65 Pulse Location Monitor Monitor Respiratory Rate (12-18) 18 24 H Respiratory rate source Observation Observation Oxygen Delivery Method Room Air Blood Pressure (90/60-120/80) 155/79 H 128/74 H Blood Pressure Mean (mm Hg) 104 92 Source Monitor Monitor Position Sitting Blood Pressure Location Left Arm History Since Last Visit- (Skip if this is Patient's initial visit) Have you changed medications since your No last visit? Any new allergies or adverse reactions No Had a fall/change in ADL's that may No increase risk of falls Signs or symptoms of abuse and/or No neglect since last visit Have you been in the hospital since your Yes No last visit? Has dressing in place as prescribed Yes Yes Has compression in place as prescribed Yes Has offloadiing in place as prescribed No Experienced any changes in pain level or No management Pain Scale: 0-10 Numeric Is Patient Pain Free? Yes WC - Nurse 1 - General Ulcer Measurement Start: 03/21/21 09:41 Freq: Status: Active Protocol: Activity Type Activity Date Activity User E-Sign Co-Sign Detail Recorded Client Recorded Date Recorded By Document 03/21/21 09:41 MT Desktop 03/21/21 09:51 MT Document 03/28/21 09:30 DL Desktop 03/28/21 09:37 DL 03/21/21 03/28/21 09:41 09:30 Wound Center Nurse 1 #1 left heel CLUSTER -Current Size (cm) - Length 2.3 1.8 -Current Size (cm) - Width 2.5 1.8 -Current Size (cm) - Depth 0.7 1 -Total Square Cm 5.75 3.24 -Photo Taken No -Tunneling No -Undermining/Tunneling No -Maximum Distance #2 (cm) 0.8 -Circular Undermining No Yes -Exudate Amt Medium Large -Exudate Type Serosanguineous Serosanguineous -Wound Margin Thickened & Thickened & Rolled Under Rolled Under -Granulation Amt Large (67-100%) Medium (34-66%) -Granulation Quality Pale,[place] Red -Slough/Fibrin No -Necrosis Amt Medium (34-66%) -Necrotic Tissue Type Adherent Slough -Structure Exposed N/A -Texture (Margaret-wound Skin Appearance) Assessed, Scarring Localized Edema -Moisture (Margaret-wound Skin Appearance) Assessed, Maceration Maceration -Color (Margaret-wound Skin Appearance) Assessed Hemosiderin Staining -Temperature (Margaret-wound Skin No Abnormality No Abnormality Appearance) (Pt Warm) (Pt Warm) -Tenderness on Palpation (Margaret-wound No Yes Skin Appearance) -Ulcer Cleansing Rinsed/ Soap and Water Irrigated with Saline -Foul Odor after Cleansing No No -Anesthetic Used 4% Lidocaine 5% Lidocaine Solution Gel Lower Limb Edema Present Yes Right Calf (cm) 43.2 Right Ankle (cm) 26 Left Calf (cm) 49 Left Ankle (cm) 31 - Nurse 2 - General Ulcer CM Notes Start: 03/21/21 09:41 Freq: Status: Active Protocol: Activity Type Activity Date Activity User E-Sign Co-Sign Detail Recorded Client Recorded Date Recorded By Document 03/21/21 10:11 [id number] 03/21/21 10:25 Document 03/28/21 09:51 [id number] 03/28/21 10:00 03/21/21 03/28/21 10:11 09:51 Wound Center Nurse 2 -Time 10:11 09:52 -Correct Patient Yes Yes -Correct Side, Site, Position Yes Yes -Correct Procedure Yes Yes -Procedure Performed Yes Yes -Type of Procedure Debridement Debridement -Clinical Debridement Subcutaneous Subcutaneous -Tissue Removed Subcutaneous Subcutaneous -Post Debridement (cm) - Length 2.4 2.4 -Post Debridement (cm) - Width 2.5 2.6 -Post Debridement (cm) - Depth 0.6 0.3 -Total Square (Post) (cm) 6.00 6.24 -Area of Debridement (cm) - Length 2.4 2.4 -Area of Debridement (cm) - Width 2.5 2.6 -Total Square (Area) (cm) 6.00 6.24 -Tunneling No No -Undermining/Tunneling No No -Circular Undermining No No -Wound/Ulcer Outcome Not Healed Not Healed -Ulcer Cleansing Rinsed/ Rinsed/ Irrigated with Irrigated with Saline Saline -Foul Odor after Cleansing No No -Bioengineered Tissue No No -Bleeding Controlled with Pressure Pressure -Offloading Yes -Type of Offloading Camwalker Total Contact Cast (TCC) - Left ($) -Treatment Response Procedure Procedure Tolerated Well Tolerated Well -Debridement - Subq, 1st 20sq cm Yes Yes Pain Scale: 0-10 Numeric Is Patient Pain Free? Yes - Nurse 3 - General Ulcer D/C NN Start: 03/21/21 09:41 Freq: Status: Active Protocol: Activity Type Activity Date Activity User E-Sign Co-Sign Detail Recorded Client Recorded Date Recorded By Document 03/21/21 10:52 RB [id number] 03/21/21 10:53 RB Document 03/28/21 10:08 DL [id number] 03/28/21 10:10 DL 03/21/21 03/28/21 10:52 10:08 Wound Care Nurse 3 #1 left heel CLUSTER -Ulcer Cleansing Rinsed/ Soap and Water Irrigated with Saline -Foul Odor after Cleansing No -Other Dressing iodosorb Iodosorb ointment ointment -Primary Dressing Covered/Secured with Dry Gauze,Dry Dry Gauze & Gauze & Roll Roll Gauze Gauze,Secured with Tape -Other Covering abd Right -Tubular Bandage Single Layer -Size of Tubigrip Used Size E -Size E ($) 1 Left -Multi-Layered Wrap Application Multi-Layer Comp - Left ($) -Tubular Bandage Single Layer -Size of Tubigrip Used Size E -Size E ($) 1 Treatment Response Procedure Procedure Tolerated Well Tolerated Well Pain Scale: 0-10 Numeric Is Patient Pain Free? Yes Yes WC - Visit Discharge Discharge Condition Stable Stable Ambulatory Status Ambulatory, Ambulatory, Walker Walker Transportation Private Auto Medication Reconcilliation completed & No provided to patient/care provider Clinical Summary of Care Provided Yes Facility Type Home Health Orders Sent Yes Assessment/Plan Assessment/Plan (1) Type 2 diabetes mellitus with diabetic polyneuropathy: CODE(S): E11.42 - Type 2 diabetes mellitus with diabetic polyneuropathy QUALIFIERS: Diabetes mellitus senior care insulin use: with senior care use Qualified Code(s): E11.42 - Type 2 diabetes mellitus with diabetic polyneuropathy; Z79.4 - manager intermediate (current) use of insulin (2) Delayed wound healing: CODE(S): T14.8XXD - Other injury of unspecified body region, subsequent encounter (3) Bilateral edema of lower extremity: CODE(S): R60.0 - Localized edema (4) Cellulitis of left foot: CODE(S): L03.116 - Cellulitis of left lower limb (5) Left foot pain: CODE(S): M79.672 - Pain in left foot (6) Tobacco abuse: CODE(S): Z72.0 - Tobacco use (7) Obesity: CODE(S): E66.9 - Obesity, unspecified QUALIFIERS: Obesity type: due to excess calories Obesity classification: adult class 1 (BMI 30 - 34.9) Serious obesity comorbidity presence: with serious comorbidity Body mass index: BMI 33.0-33.9 Qualified Code(s): E66.09 - Other obesity due to excess calories; Z68.33 - Body mass index [BMI] 33.0-33.9, adult (8) Ulcer of left foot with fat layer exposed: CODE(S): L97.522 - Non-pressure chronic ulcer of other part of left foot with fat layer exposed (9) Difficulty in walking: CODE(S): R26.2 - Difficulty in walking, not elsewhere classified PLAN: Patient seen and examined. I reviewed and discussed his case. Debridement was performed as noted in the clinical nursing panel. Dressing recommendation: To change dressing daily with Dakin wet-to-dry. Wash: Antibacterial soap and water. Avoid soaking. Patient wound is noted to have improved with healthier appearance and there is no malodor. There are no local signs infection noted today. It is noted he was recently started on a cellulitis treatment plan per chart review. He presents today in [facility] slip on shoes. Patient relates he had follow-up appointment with his primary care provider, Priyanka Brown, and relates that she did not change any medication and stated he was doing okay. PCP is leaving the diabetes management up to his auto appraiser, Dr. Mykel Barraza. He was able to follow-up and recommendations were updated. Medical record request will be requested. Culture of wound was obtained 02/27/21 which was positive for MRSA, proteus, enterococcus, anaerobic cocci, Bacteroides. Completed a full course of Augmentin and Bactrim. He is stable at this time. I recommend updating his labs including CBC, CMP, ESR, hemoglobin A1c. I also recommend updating his foot x-rays. Orders were provided previously. His white blood cell count was 8.6, ESR 34. His last A1c on file was 10.3% in . His foot x-rays were reviewed previously, and these do not demonstrate any acute osseous destruction, fracture, dislocation, soft tissue emphysema or foreign body. His skin discontinuity consistent with his ulcer site is seen. Discussed importance of cleaning and maintaining foot both to prevent infection as well as to prevent future wounds. Discussed he is at higher risk for wounds due to his diabetes, neuropathy, hyperglycemia, obesity, swelling, and tobacco abuse. Discussed that he needs to cut back on his smoking, preferably quit, and better controlling his blood sugar to better optimize his healing. Patient has not improved his tobacco abuse or his hyperglycemia and does not show incentive to begin changing these habits. Patient is also noted to be rather active based on self reporting especially with yard work. Reviewed how pressure will impact the wound. Patient noted to have offloading surgical shoe. He did not have good tolerance of the total contact cast. I recommended getting more serious about offloading with a cam walker boot and this was obtained at [facility]. I recommend using this concurrently with a walker or crutches to take pressure off the entire limb. Arterial studies were reviewed. Showing likely adequate perfusion for healing. Right LAI is 0.99 and left 1.18. Right toe brachial index 0.76 and left 0.71. Patient relates he has been smoking since he was 10 years old. Discussed impact smoking has on his vessels as well as impact on wound healing. Patient relates that he is unwilling to quit entirely but he will try to cut back. He does not want any medical assistance at this process. Edema management: Prior Tubigrip and Kevin wrap and elevation were used to control edema. I recommend trying multilayer compression including a 3M2L. Host factors: His multiple comorbidities are noted including diabetes and smoking history. Also recommend improvement in nutritional status which involves taking in adequate protein and also focusing on eating 5-10 whole foods daily. He likes to cook and we also reviewed ways to simplify his cooking and whole food intake without having to stand for long hours in the kitchen. He will look into using a crockpot and frozen items more. All questions answered. Patient to follow up in 1 week or call sooner if status worsening or if questions. I answered all of his questions. This note was generated with [employer] dictation software. It may contain incorrect words, spelling, and punctuation that were not noted in checking the note before signing. The medical decision making level is limited based on data including the review of prior external notes, review of a prior test, or ordering a test. 22 minutes was spent on this encounter. This included face to face and non face to face care including preparing for the visit, reviewing the history, performing the exam, counseling and providing education to the patient, family, or caregiver, ordering medications/test/ procedures if indicated as documented, communicating with other healthcare providers, documenting information in the medical record, interpreting / sharing this information when indicated as documented, and care coordination.
[2021-04-04 09:17] VITALS: BP 104/56; PULSE 73; RESP 18; TEMP 36.2; BMI 33.7
--- NOTE | 2021-04-04 12:11 | PN.PCM_ITS ---
History of Present Illness Date of Service: 04/04/21 Chief Complaint: left heel ulcer History of Wound: Patient presents for chronic nonhealing wound to left plantar foot. He is unsure how long it has been there as he can't see or reach his feet. He attributes this largely to his obesity. Patient also has significant swelling to his legs, especially his left. He relates he has smoked since he was 10 years old. He also has significant medical history of tobacco abuse, obesity, CAMACHO, edema, COPD, hypercapnia, diabetes with neuropathy. Patient has also had admission to the hospital for hypoxemia and heart failure in August 2020. Patient was noted to be discharged on oxygen therapy. Patient did not present to the clinic today on his oxygen again. He relates that needle board repairer recommends he is use 2 L of oxygen. Patient has not been using this. Patient is noted to have significant delayed healing. It is most likely due to his comorbidities including uncontrolled diabetes, morbid obesity, tobacco abuse. Patient seems reluctant to have these factors better controlled in order to promote wound healing. He denies fever, chill, nausea, vomiting. He has been able to perform dressing changes. He recently also saw his business assistant and reports medication adjustments were made to help improve his glucose. He is trying to keep weight off of his foot however this is very difficult. Progress of Wound: Stable Objective Data Objective Data Vital Signs: Vital Signs Temp Pulse Resp BP 97.1 F L 73 18 104/56 L 04/04/21 09:17 04/04/21 09:17 04/04/21 09:17 04/04/21 09:17 Oxygen Delivery Method Room Air Body Mass Index (BMI) 33.7 Physical Exam Narrative Const alert and no apparent distress General Appearance: cooperative and comfortable Extremity no calf tenderness, negative milo and draper sign lower extremity edema left worse than right General Extremity: Negative for clubbing or cyanosis or ecchymosis or erythema Vasc Peripheral Pulses: posterior tibial pulses present but diminished and dorsalis pedis pulses present but diminished, normal capillary refill, no acute ischemic skin changes noted, normal temperature Skin General Skin Exam: dry skin, decreased hair growth noted; Negative for ecchymosis, eschar, pallor, rashes Wound Narrative: ulcer noted to plantar left heel Healthy in appearance today. No malodor. No purulence, probing to bone, streaking, fluctuation, crepitus. Skin is its normal color. no periwound maceration noted. Skin is atrophic and hairless. Granular and fat base. Minimal serosanguinous drainage. No buildup of callus noted periwound as well as to posterior medial and lateral heel in general. Pain to palpation of left heel especially posterior to wound decreased Neuro Gait (Neuro): heel to toe Sensory Exam: extremities light-touch: decreased Debridement Note Debridement Note Wound debrided: left heel Wound Grade/Stage: 1 Type of Debridement: Excisional debridement Anesthesia Used: 4% Lidocaine Solution Depth: in the subcutaneous layer Percentage of wound debrided: 100 Instrument Used: #15 blade Tissue Removed: fibrous, devitalized subcutaneous, biofilm, slough Severity: Fat Layer Exposed Amount of bleeding with debridement: Mild Bleeding Controlled with: Pressure Patient tolerated procedure: Patient tolerated procedure well Post-Debridement Measurements and Additional Note: Post-Debridement Measurements/Treatment - Nurse 1 - General Ulcer Assessment Start: 03/21/21 09:41 Freq: Status: Active Protocol: EVELYN Activity Type Activity Date Activity User E-Sign Co-Sign Detail Recorded Client Recorded Date Recorded By Document 03/21/21 09:41 MT Desktop 03/21/21 09:51 MT Document 03/28/21 09:30 DL Desktop 03/28/21 09:37 DL Document 04/04/21 09:17 RB [id number] 04/04/21 09:22 RB 03/21/21 03/28/21 04/04/21 09:41 09:30 09:17 - Today's Visit Information Type of service Follow-up Visit Follow-up Visit Follow-up Visit (Physician/GEOGRAPHY FACULTY MEMBER (Physician/GEOGRAPHY FACULTY MEMBER (Physician/GEOGRAPHY FACULTY MEMBER ) ) ) Arrival Mode Ambulatory Walker Ambulatory, Walker Transfer Assistance None None Patient Identification Verified (Name & Yes Yes ) Patient Requires Transmission-Based No No Precautions Finger Stick Blood Sugar(mg/dl) (if 121 122 indicated): Blood Sugar Stated by Stated by Patient Patient Height and Weight Body Mass Index (BMI) 33.7 33.7 33.7 BMI Classification Obese Obese Obese Vital Signs Temperature (97.8 F-99.1 F) 97.5 F L 98.1 F 97.1 F L Temperature Source Temporal Oral Temporal Pulse Rate (60-100) 62 65 73 Pulse Location Monitor Monitor Monitor Respiratory Rate (12-18) 18 24 H 18 Respiratory rate source Observation Observation Observation Oxygen Delivery Method Room Air Blood Pressure (90/60-120/80) 155/79 H 128/74 H 104/56 L Blood Pressure Mean (mm Hg) 104 92 72 Source Monitor Monitor Monitor Position Sitting Semi-Fowlers Blood Pressure Location Left Arm Left Arm History Since Last Visit- (Skip if this is Patient's initial visit) Have you changed medications since your No No last visit? Any new allergies or adverse reactions No No Had a fall/change in ADL's that may No No increase risk of falls Signs or symptoms of abuse and/or No No neglect since last visit Have you been in the hospital since your Yes No No last visit? Has dressing in place as prescribed Yes Yes Yes Has compression in place as prescribed Yes Yes Has offloadiing in place as prescribed No Experienced any changes in pain level or No No management Pain Scale: 0-10 Numeric Is Patient Pain Free? Yes WC - Nurse 1 - General Ulcer Measurement Start: 03/21/21 09:41 Freq: Status: Active Protocol: Activity Type Activity Date Activity User E-Sign Co-Sign Detail Recorded Client Recorded Date Recorded By Document 03/21/21 09:41 MT Desktop 03/21/21 09:51 MT Document 03/28/21 09:30 DL Desktop 03/28/21 09:37 DL Document 04/04/21 09:17 RB [id number] 04/04/21 09:22 RB 03/21/21 03/28/21 04/04/21 09:41 09:30 09:17 Wound Center Nurse 1 #1 left heel CLUSTER -Combined with other wound No -Current Size (cm) - Length 2.3 1.8 2 -Current Size (cm) - Width 2.5 1.8 2 -Current Size (cm) - Depth 0.7 1 1.1 -Total Square Cm 5.75 3.24 4 -Photo Taken No -Tunneling No No -Undermining/Tunneling No No -Maximum Distance #2 (cm) 0.8 -Circular Undermining No Yes No -Exudate Amt Medium Large Large -Exudate Type Serosanguineous Serosanguineous Serosanguineous -Wound Margin Thickened & Thickened & Thickened Rolled Under Rolled Under -Granulation Amt Large (67-100%) Medium (34-66%) Medium (34-66%) -Granulation Quality Pale,[place] Red Pale -Slough/Fibrin No Yes -Necrosis Amt Medium (34-66%) Medium (34-66%) -Necrotic Tissue Type Adherent Slough Adherent Slough -Structure Exposed N/A N/A -Texture (Margaret-wound Skin Appearance) Assessed, Scarring Callus Localized Edema -Moisture (Margaret-wound Skin Appearance) Assessed, Maceration Assessed Maceration -Color (Margaret-wound Skin Appearance) Assessed Hemosiderin Assessed Staining -Temperature (Margaret-wound Skin No Abnormality No Abnormality No Abnormality Appearance) (Pt Warm) (Pt Warm) (Pt Warm) -Tenderness on Palpation (Margaret-wound No Yes No Skin Appearance) -Ulcer Cleansing Rinsed/ Soap and Water Wound Cleanser Irrigated with Saline -Foul Odor after Cleansing No No No -Anesthetic Used 4% Lidocaine 5% Lidocaine 4% Lidocaine Solution Gel Solution -Wound Comment(s) pt3M wrap only wrapped to med calf and no coban noted only a ce wrapped around foam layer Lower Limb Edema Present Yes Yes Right Calf (cm) 43.2 Right Ankle (cm) 26 Left Calf (cm) 49 48.2 Left Ankle (cm) 31 27 WC - Nurse 2 - General Ulcer CM Notes Start: 03/21/21 09:41 Freq: Status: Active Protocol: Activity Type Activity Date Activity User E-Sign Co-Sign Detail Recorded Client Recorded Date Recorded By Document 03/21/21 10:11 DANIEL [id number] 03/21/21 10:25 JF Document 03/28/21 09:51 [id number] 03/28/21 10:00 Edit Result 03/28/21 09:51 JF (1) [id number] 03/29/21 06:23 PL Document 04/04/21 09:36 [id number] 04/04/21 09:43 JF (1) #1 left heel CLUSTER - Type of Offloading Total Contact Cast => (TCC) - Left ($) => 03/21/21 03/28/21 04/04/21 10:11 09:51 09:36 Wound Center Nurse 2 #1 left heel CLUSTER -Time 10:11 09:52 09:37 -Correct Patient Yes Yes Yes -Correct Side, Site, Position Yes Yes Yes -Correct Procedure Yes Yes Yes -Procedure Performed Yes Yes Yes -Type of Procedure Debridement Debridement Debridement -Clinical Debridement Subcutaneous Subcutaneous Subcutaneous -Tissue Removed Subcutaneous Subcutaneous Subcutaneous -Post Debridement (cm) - Length 2.4 2.4 2.3 -Post Debridement (cm) - Width 2.5 2.6 2 -Post Debridement (cm) - Depth 0.6 0.3 0.2 -Total Square (Post) (cm) 6.00 6.24 4.6 -Area of Debridement (cm) - Length 2.4 2.4 2.3 -Area of Debridement (cm) - Width 2.5 2.6 2.0 -Total Square (Area) (cm) 6.00 6.24 4.60 -Tunneling No No No -Undermining/Tunneling No No No -Circular Undermining No No No -Wound/Ulcer Outcome Not Healed Not Healed Not Healed -Ulcer Cleansing Rinsed/ Rinsed/ Rinsed/ Irrigated with Irrigated with Irrigated with Saline Saline Saline -Foul Odor after Cleansing No No No -Bioengineered Tissue No No No -Bleeding Controlled with Pressure Pressure Pressure -Offloading Yes Yes -Type of Offloading Camwalker Camwalker -Treatment Response Procedure Procedure Procedure Tolerated Well Tolerated Well Tolerated Well -Debridement - Subq, 1st 20sq cm Yes Yes Yes Pain Scale: 0-10 Numeric Is Patient Pain Free? Yes Yes - Nurse 3 - General Ulcer D/C NN Start: 03/21/21 09:41 Freq: Status: Active Protocol: Activity Type Activity Date Activity User E-Sign Co-Sign Detail Recorded Client Recorded Date Recorded By Document 03/21/21 10:52 RB [id number] 03/21/21 10:53 RB Document 03/28/21 10:08 DL [id number] 03/28/21 10:10 DL Document 04/04/21 10:04 RB [id number] 04/04/21 10:09 RB 03/21/21 03/28/21 04/04/21 10:52 10:08 10:04 Wound Care Nurse 3 #1 left heel CLUSTER -Ulcer Cleansing Rinsed/ Soap and Water Rinsed/ Irrigated with Irrigated with Saline Saline -Foul Odor after Cleansing No -Other Dressing iodosorb Iodosorb iodosorb ointment ointment ointment -Primary Dressing Covered/Secured with Dry Gauze,Dry Dry Gauze & Dry Gauze,Dry Gauze & Roll Roll Gauze Gauze & Roll Gauze,Secured Gauze,Secured with Tape with Tape -Other Covering abd abd Right -Tubular Bandage Single Layer -Size of Tubigrip Used Size E -Size E ($) 1 Left -Multi-Layered Wrap Application Multi-Layer Multi-Layer Comp - Left ($) Comp - Left ($) -Tubular Bandage Single Layer -Size of Tubigrip Used Size E -Size E ($) 1 Treatment Response Procedure Procedure Procedure Tolerated Well Tolerated Well Tolerated Well Pain Scale: 0-10 Numeric Is Patient Pain Free? 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: with snf use Qualified Code(s): E11.42 - Type 2 diabetes mellitus with diabetic polyneuropathy; Z79.4 - roasterman (current) use of insulin (2) Delayed wound healing: CODE(S): T14.8XXD - Other injury of unspecified body region, subsequent encounter (3) Bilateral edema of lower extremity: CODE(S): R60.0 - Localized edema (4) Cellulitis of left foot: CODE(S): L03.116 - Cellulitis of left lower limb (5) Left foot pain: CODE(S): M79.672 - Pain in left foot (6) Tobacco abuse: CODE(S): Z72.0 - Tobacco use (7) Obesity: CODE(S): E66.9 - Obesity, unspecified QUALIFIERS: Obesity type: due to excess calories Obesity classification: adult class 1 (BMI 30 - 34.9) Serious obesity comorbidity presence: with serious comorbidity Body mass index: BMI 33.0-33.9 Qualified Code(s): E66.09 - Other obesity due to excess calories; Z68.33 - Body mass index [BMI] 33.0-33.9, adult (8) Ulcer of left foot with fat layer exposed: CODE(S): L97.522 - Non-pressure chronic ulcer of other part of left foot w ith fat layer exposed (9) Difficulty in walking: CODE(S): R26.2 - Difficulty in walking, not elsewhere classified PLAN: Patient seen and examined. I reviewed and discussed his case. Debridement was performed as noted in the clinical nursing panel. Dressing recommendation: To change dressing daily with Dakin wet-to-dry. Wash: Antibacterial soap and water. Avoid soaking. Patient wound is noted to have improved with healthier appearance and there is no malodor. There are no local signs infection noted today. It is noted he was recently started on a cellulitis treatment plan per chart review. To continue offloading with cam walker boot. To use assistive device to maintain nonweightbearing status. Compliance was reiterated. Patient relates he had follow-up appointment with his primary care provider, Priyanka Brown, and relates that she did not change any medication and stated he was doing okay. PCP is leaving the diabetes management up to his business assistant, Dr. Mykel Barraza. He was able to follow-up and recommendations were updated. Culture of wound was obtained 02/27/21 which was positive for MRSA, proteus, enterococcus, anaerobic cocci, Bacteroides. Completed a full course of Augmentin and Bactrim. He is stable at this time. I recommend updating his labs including CBC, CMP, ESR, hemoglobin A1c. I also recommend updating his foot x-rays. Orders were provided previously. His white blood cell count was 8.6, ESR 34. His last A1c on file was 10.3% in . His foot x-rays were reviewed previously, and these do not demonstrate any acute osseous destruction, fracture, dislocation, soft tissue emphysema or foreign body. His skin discontinuity consistent with his ulcer site is seen. Discussed importance of cleaning and maintaining foot both to prevent infection as well as to prevent future wounds. Discussed he is at higher risk for wounds due to his diabetes, neuropathy, hyperglycemia, obesity, swelling, and tobacco abuse. Discussed that he needs to cut back on his smoking, preferably quit, and better controlling his blood sugar to better optimize his healing. Patient has not improved his tobacco abuse or his hyperglycemia. Reviewed how pressure will impact the wound. Arterial studies were reviewed. Showing likely adequate perfusion for healing. Right LAI is 0.99 and left 1.18. Right toe brachial index 0.76 and left 0.71. Patient relates he has been smoking since he was 10 years old. Discussed impact smoking has on his vessels as well as impact on wound healing. Patient relates that he is unwilling to quit entirely but he will try to cut back. He does not want any medical assistance at this process. Edema management: Prior Tubigrip and Kevin wrap and elevation were used to control edema. I recommend trying multilayer compression including a 3M2L. Host factors: His multiple comorbidities are noted including diabetes and smoking history. Also recommend improvement in nutritional status which involves taking in adequate protein and also focusing on eating 5-10 whole foods daily. All questions answered. Patient to follow up in 1 week or call sooner if status worsening or if questions. I answered all of his questions. This note was generated with [employer] dictation software. It may contain incorrect words, spelling, and punctuation that were not noted in checking the note before signing.
[2021-04-11 09:12] VITALS: BP 175/83; PULSE 62; TEMP 36.7; BMI 33.7
--- NOTE | 2021-04-11 13:24 | PCM.WC.PN ---
History of Present Illness Date of Service: 04/11/21 Chief Complaint: left heel ulcer History of Wound: Patient presents for chronic nonhealing wound to left plantar foot. Patient also has significant swelling to his legs, especially his left. He relates he has smoked since he was 10 years old. He also has significant medical history of tobacco abuse, obesity, CAMACHO, edema, COPD, hypercapnia, diabetes with neuropathy. Patient has also had admission to the hospital for hypoxemia and heart failure in August 2020. Patient was noted to be discharged on oxygen therapy. Patient did not present to the clinic today on his oxygen again. He relates that can bander operator recommends he is use 2 L of oxygen. Patient has not been using this. Patient is noted to have significant delayed healing. It is most likely due to his comorbidities including uncontrolled diabetes, morbid obesity, tobacco abuse. Patient seems reluctant to have these factors better controlled in order to promote wound healing. He also keeps walking on his ulcer. He denies fever, chill, nausea, vomiting. He has been able to perform dressing changes. He recently also saw his set off blocker and reports medication adjustments were made to help improve his glucose. He is trying to keep weight off of his foot however this is very difficult. He has a cam walker boot. Progress of Wound: Stable Objective Data Objective Data Vital Signs: Vital Signs Temp Pulse Resp BP 98.1 F 62 18 175/83 H 04/11/21 09:12 04/11/21 09:12 04/04/21 09:17 04/11/21 09:12 Oxygen Delivery Method Room Air Body Mass Index (BMI) 33.7 Physical Exam Narrative Const alert and no apparent distress General Appearance: cooperative and comfortable Extremity no calf tenderness, negative milo and draper sign lower extremity edema left worse than right General Extremity: Negative for clubbing or cyanosis or ecchymosis or erythema Vasc Peripheral Pulses: posterior tibial pulses present but diminished and dorsalis pedis pulses present but diminished, normal capillary refill, no acute ischemic skin changes noted, normal temperature Skin General Skin Exam: dry skin, decreased hair growth noted; Negative for ecchymosis, eschar, pallor, rashes Wound Narrative: ulcer noted to plantar left heel Healthy in appearance today. No malodor. No purulence, probing to bone, streaking, fluctuation, crepitus. Skin is its normal color. no periwound maceration noted. Skin is atrophic and hairless. Granular and fat base. Minimal serosanguinous drainage. buildup of callus noted periwound as well as to posterior medial and lateral heel in general. Pain to palpation ulcer Neuro Gait (Neuro): heel to toe Sensory Exam: extremities light-touch: decreased Debridement Note Debridement Note Wound debrided: left heel Wound Grade/Stage: 1 Type of Debridement: Excisional debridement Anesthesia Used: 4% Lidocaine Solution Depth: in the subcutaneous layer Percentage of wound debrided: 100 Instrument Used: #15 blade Tissue Removed: fibrous, devitalized subcutaneous, biofilm, slough Severity: Fat Layer Exposed Amount of bleeding with debridement: Mild Bleeding Controlled with: Pressure Patient tolerated procedure: Patient tolerated procedure well Post-Debridement Measurements and Additional Note: Post-Debridement Measurements/Treatment - Nurse 1 - General Ulcer Assessment Start: 03/21/21 09:41 Freq: Status: Active Protocol: EVELYN Activity Type Activity Date Activity User E-Sign Co-Sign Detail Recorded Client Recorded Date Recorded By Document 03/21/21 09:41 MT Desktop 03/21/21 09:51 MT Document 03/28/21 09:30 DL Desktop 03/28/21 09:37 DL Document 04/04/21 09:17 RB [id number] 04/04/21 09:22 RB Document 04/11/21 09:12 AK [id number] 04/11/21 09:14 AK 03/21/21 03/28/21 04/04/21 09:41 09:30 09:17 - Today's Visit Information Type of service Follow-up Visit Follow-up Visit Follow-up Visit (Physician/MERCHANDISING INTERN (Physician/MERCHANDISING INTERN (Physician/MERCHANDISING INTERN ) ) ) Arrival Mode Ambulatory Walker Ambulatory, Walker Transfer Assistance None None Patient Identification Verified (Name & Yes Yes ) Patient Requires Transmission-Based No No Precautions Safety Precautions Finger Stick Blood Sugar(mg/dl) (if 121 122 indicated): Blood Sugar Stated by Stated by Patient Patient Height and Weight Body Mass Index (BMI) 33.7 33.7 33.7 BMI Classification Obese Obese Obese Vital Signs Temperature (97.8 F-99.1 F) 97.5 F L 98.1 F 97.1 F L Temperature Source Temporal Oral Temporal Pulse Rate (60-100) 62 65 73 Pulse Location Monitor Monitor Monitor Respiratory Rate (12-18) 18 24 H 18 Respiratory rate source Observation Observation Observation Oxygen Delivery Method Room Air Blood Pressure (90/60-120/80) 155/79 H 128/74 H 104/56 L Blood Pressure Mean (mm Hg) 104 92 72 Source Monitor Monitor Monitor Position Sitting Semi-Fowlers Blood Pressure Location Left Arm Left Arm History Since Last Visit- (Skip if this is Patient's initial visit) Have you changed medications since your No No last visit? Any new allergies or adverse reactions No No Had a fall/change in ADL's that may No No increase risk of falls Signs or symptoms of abuse and/or No No neglect since last visit Have you been in the hospital since your Yes No No last visit? Has dressing in place as prescribed Yes Yes Yes Has compression in place as prescribed Yes Yes Has offloadiing in place as prescribed No Experienced any changes in pain level or No No management Left Footwear Right Footwear Pain Scale: 0-10 Numeric Is Patient Pain Free? Yes 04/11/21 09:12 WC - Today's Visit Information Type of service Follow-up Visit (Physician/MERCHANDISING INTERN ) Arrival Mode Ambulatory, Walker Transfer Assistance Patient Identification Verified (Name & Yes ) Patient Requires Transmission-Based No Precautions Safety Precautions NA Finger Stick Blood Sugar(mg/dl) (if indicated): Blood Sugar Height and Weight Body Mass Index (BMI) 33.7 BMI Classification Obese Vital Signs Temperature (97.8 F-99.1 F) 98.1 F Temperature Source Temporal Pulse Rate (60-100) 62 Pulse Location Monitor Respiratory Rate (12-18) Respiratory rate source Oxygen Delivery Method Blood Pressure (90/60-120/80) 175/83 H Blood Pressure Mean (mm Hg) 113 Source Monitor Position Blood Pressure Location History Since Last Visit- (Skip if this is Patient's initial visit) Have you changed medications since your No last visit? Any new allergies or adverse reactions No Had a fall/change in ADL's that may No increase risk of falls Signs or symptoms of abuse and/or No neglect since last visit Have you been in the hospital since your No last visit? Has dressing in place as prescribed Yes Has compression in place as prescribed Yes Has offloadiing in place as prescribed Yes Experienced any changes in pain level or No management Left Footwear Regular Shoe Right Footwear Regular Shoe Pain Scale: 0-10 Numeric Is Patient Pain Free? WC - Nurse 1 - General Ulcer Measurement Start: 03/21/21 09:41 Freq: Status: Active Protocol: Activity Type Activity Date Activity User E-Sign Co-Sign Detail Recorded Client Recorded Date Recorded By Document 03/21/21 09:41 MT Desktop 03/21/21 09:51 MT Document 03/28/21 09:30 DL Desktop 03/28/21 09:37 DL Document 04/04/21 09:17 RB [id number] 04/04/21 09:22 RB Document 04/11/21 09:12 AK [id number] 04/11/21 09:14 AK 03/21/21 03/28/21 04/04/21 09:41 09:30 09:17 Wound Center Nurse 1 #1 left heel CLUSTER -Combined with other wound No -Current Size (cm) - Length 2.3 1.8 2 -Current Size (cm) - Width 2.5 1.8 2 -Current Size (cm) - Depth 0.7 1 1.1 -Total Square Cm 5.75 3.24 4 -Photo Taken No -Epithelialization -Tunneling No No -Undermining/Tunneling No No -Maximum Distance #2 (cm) 0.8 -Circular Undermining No Yes No -Change in Wound Grade/Stage -Exudate Amt Medium Large Large -Exudate Type Serosanguineous Serosanguineous Serosanguineous -Wound Margin Thickened & Thickened & Thickened Rolled Under Rolled Under -Granulation Amt Large (67-100%) Medium (34-66%) Medium (34-66%) -Granulation Quality Pale,[place] Red Pale -Slough/Fibrin No Yes -Necrosis Amt Medium (34-66%) Medium (34-66%) -Necrotic Tissue Type Adherent Slough Adherent Slough -Structure Exposed N/A N/A -Texture (Margaret-wound Skin Appearance) Assessed, Scarring Callus Localized Edema -Moisture (Margaret-wound Skin Appearance) Assessed, Maceration Assessed Maceration -Color (Margaret-wound Skin Appearance) Assessed Hemosiderin Assessed Staining -Temperature (Margaret-wound Skin No Abnormality No Abnormality No Abnormality Appearance) (Pt Warm) (Pt Warm) (Pt Warm) -Tenderness on Palpation (Margaret-wound No Yes No Skin Appearance) -Ulcer Cleansing Rinsed/ Soap and Water Wound Cleanser Irrigated with Saline -Foul Odor after Cleansing No No No -Anesthetic Used 4% Lidocaine 5% Lidocaine 4% Lidocaine Solution Gel Solution -Wound Comment(s) pt3M wrap only wrapped to med calf and no coban noted only a ce wrapped around foam layer Lower Limb Edema Present Yes Yes Right Calf (cm) 43.2 Right Ankle (cm) 26 Left Calf (cm) 49 48.2 Left Ankle (cm) 31 27 04/11/21 09:12 Wound Center Nurse 1 #1 left heel CLUSTER -Combined with other wound No -Current Size (cm) - Length 2 -Current Size (cm) - Width 2.5 -Current Size (cm) - Depth 0.5 -Total Square Cm 5.0 -Photo Taken No -Epithelialization Medium 34-66% -Tunneling No -Undermining/Tunneling No -Maximum Distance #2 (cm) -Circular Undermining No -Change in Wound Grade/Stage No -Exudate Amt Large -Exudate Type Serosanguineous -Wound Margin Thickened & Rolled Under -Granulation Amt Small (1-33%) -Granulation Quality [place] -Slough/Fibrin Yes -Necrosis Amt Small (1-33%) -Necrotic Tissue Type Adherent Slough -Structure Exposed N/A -Texture (Margaret-wound Skin Appearance) No Abnormality, Assessed -Moisture (Margaret-wound Skin Appearance) No Abnormality, Assessed -Color (Margaret-wound Skin Appearance) No Abnormality, Assessed -Temperature (Margaret-wound Skin No Abnormality Appearance) (Pt Warm) -Tenderness on Palpation (Margaret-wound No Skin Appearance) -Ulcer Cleansing Soap and Water -Foul Odor after Cleansing No -Anesthetic Used 5% Lidocaine Gel -Wound Comment(s) Lower Limb Edema Present No Right Calf (cm) Right Ankle (cm) Left Calf (cm) 41 Left Ankle (cm) 25.5 WC - Nurse 2 - General Ulcer CM Notes Start: 03/21/21 09:41 Freq: Status: Active Protocol: Activity Type Activity Date Activity User E-Sign Co-Sign Detail Recorded Client Recorded Date Recorded By Document 03/21/21 10:11 DANIEL [id number] 03/21/21 10:25 JF Document 03/28/21 09:51 DANIEL [id number] 03/28/21 10:00 JF Edit Result 03/28/21 09:51 JF (1) [id number] 03/29/21 06:23 PL Document 04/04/21 09:36 JF [id number] 04/04/21 09:43 JF Document 04/11/21 09:03 JF [id number] 04/11/21 09:06 JF Edit Result 04/11/21 09:03 JF (2) [id number] 04/11/21 09:09 JF (1) #1 left heel CLUSTER - Type of Offloading Total Contact Cast => (TCC) - Left ($) => (2) #1 left heel CLUSTER - Post Debridement (cm) - Length 2.4 => 2.0 - Post Debridement (cm) - Width 2 => 2.8 - Post Debridement (cm) - Depth 0.2 => 0.8 - Total Square (Post) (cm) 4.8 => 5.60 - Area of Debridement (cm) - Length 2.4 => 2.0 - Area of Debridement (cm) - Width 2.0 => 2.8 - Total Square (Area) (cm) 4.80 => 5.60 03/21/21 03/28/21 04/04/21 10:11 09:51 09:36 Wound Center Nurse 2 #1 left heel CLUSTER -Time 10:11 09:52 09:37 -Correct Patient Yes Yes Yes -Correct Side, Site, Position Yes Yes Yes -Correct Procedure Yes Yes Yes -Procedure Performed Yes Yes Yes -Type of Procedure Debridement Debridement Debridement -Clinical Debridement Subcutaneous Subcutaneous Subcutaneous -Tissue Removed Subcutaneous Subcutaneous Subcutaneous -Post Debridement (cm) - Length 2.4 2.4 2.3 -Post Debridement (cm) - Width 2.5 2.6 2 -Post Debridement (cm) - Depth 0.6 0.3 0.2 -Total Square (Post) (cm) 6.00 6.24 4.6 -Area of Debridement (cm) - Length 2.4 2.4 2.3 -Area of Debridement (cm) - Width 2.5 2.6 2.0 -Total Square (Area) (cm) 6.00 6.24 4.60 -Tunneling No No No -Undermining/Tunneling No No No -Circular Undermining No No No -Wound/Ulcer Outcome Not Healed Not Healed Not Healed -Ulcer Cleansing Rinsed/ Rinsed/ Rinsed/ Irrigated with Irrigated with Irrigated with Saline Saline Saline -Foul Odor after Cleansing No No No -Bioengineered Tissue No No No -Bleeding Controlled with Pressure Pressure Pressure -Offloading Yes Yes -Type of Offloading Camwalker Camwalker -Treatment Response Procedure Procedure Procedure Tolerated Well Tolerated Well Tolerated Well -Debridement - Subq, 1st 20sq cm Yes Yes Yes Pain Scale: 0-10 Numeric Is Patient Pain Free? Yes Yes 04/11/21 09:03 Wound Center Nurse 2 #1 left heel CLUSTER -Time 09:04 -Correct Patient Yes -Correct Side, Site, Position Yes -Correct Procedure Yes -Procedure Performed Yes -Type of Procedure Debridement -Clinical Debridement Subcutaneous -Tissue Removed Subcutaneous -Post Debridement (cm) - Length 2.0 -Post Debridement (cm) - Width 2.8 -Post Debridement (cm) - Depth 0.8 -Total Square (Post) (cm) 5.60 -Area of Debridement (cm) - Length 2.0 -Area of Debridement (cm) - Width 2.8 -Total Square (Area) (cm) 5.60 -Tunneling No -Undermining/Tunneling No -Circular Undermining No -Wound/Ulcer Outcome Not Healed -Ulcer Cleansing Rinsed/ Irrigated with Saline -Foul Odor after Cleansing No -Bioengineered Tissue No -Bleeding Controlled with Pressure -Offloading Yes -Type of Offloading Camwalker -Treatment Response Procedure Tolerated Well -Debridement - Subq, 1st 20sq cm Yes Pain Scale: 0-10 Numeric Is Patient Pain Free? Yes WC - Nurse 3 - General Ulcer D/C NN Start: 03/21/21 09:41 Freq: Status: Active Protocol: Activity Type Activity Date Activity User E-Sign Co-Sign Detail Recorded Client Recorded Date Recorded By Document 03/21/21 10:52 RB [id number] 03/21/21 10:53 RB Document 03/28/21 10:08 DL [id number] 03/28/21 10:10 DL Document 04/04/21 10:04 RB [id number] 04/04/21 10:09 RB Document 04/11/21 09:21 MT [id number] 04/11/21 09:22 MT 03/21/21 03/28/21 04/04/21 10:52 10:08 10:04 Wound Care Nurse 3 #1 left heel CLUSTER -Ulcer Cleansing Rinsed/ Soap and Water Rinsed/ Irrigated with Irrigated with Saline Saline -Foul Odor after Cleansing No -Other Dressing iodosorb Iodosorb iodosorb ointment ointment ointment -Primary Dressing Covered/Secured with Dry Gauze,Dry Dry Gauze & Dry Gauze,Dry Gauze & Roll Roll Gauze Gauze & Roll Gauze,Secured Gauze,Secured with Tape with Tape -Other Covering abd abd Right -Multi-Layered Wrap Application -Tubular Bandage Single Layer -Size of Tubigrip Used Size E -Size E ($) 1 Left -Multi-Layered Wrap Application Multi-Layer Multi-Layer Comp - Left ($) Comp - Left ($) -Tubular Bandage Single Layer -Size of Tubigrip Used Size E -Size E ($) 1 Treatment Response Procedure Procedure Procedure Tolerated Well Tolerated Well Tolerated Well Pain Scale: 0-10 Numeric Is Patient Pain Free? Yes Yes Yes WC - Visit Discharge Discharge Condition Stable Stable Stable Ambulatory Status Ambulatory, Ambulatory, Ambulatory, Walker Walker Walker Transportation Private Auto Private Auto Medication Reconcilliation completed & No No provided to patient/care provider Clinical Summary of Care Provided Yes Yes Notes: [facility] Facility Type Home Health Orders Sent Yes 04/11/21 09:21 Wound Care Nurse 3 #1 left heel CLUSTER -Ulcer Cleansing Rinsed/ Irrigated with Saline -Foul Odor after Cleansing -Other Dressing -Primary Dressing Covered/Secured with Dry Gauze & Roll Gauze, Secured with Tape -Other Covering Right -Multi-Layered Wrap Application Multi-Layer Comp - Left ($) -Tubular Bandage -Size of Tubigrip Used -Size E ($) Left -Multi-Layered Wrap Application -Tubular Bandage -Size of Tubigrip Used -Size E ($) Treatment Response Pain Scale: 0-10 Numeric Is Patient Pain Free? WC - Visit Discharge Discharge Condition Ambulatory Status Transportation Medication Reconcilliation completed & provided to patient/care provider Clinical Summary of Care Provided Notes: Facility Type Orders Sent Assessment/Plan Assessment/Plan (1) Type 2 diabetes mellitus with diabetic polyneuropathy: CODE(S): E11.42 - Type 2 diabetes mellitus with diabetic polyneuropathy QUALIFIERS: Diabetes mellitus emt intermediate insulin use: with mcfp use Qualified Code(s): E11.42 - Type 2 diabetes mellitus with diabetic polyneuropathy; Z79.4 - technician terminal and repeater (current) use of insulin (2) Delayed wound healing: CODE(S): T14.8XXD - Other injury of unspecified body region, subsequent encounter (3) Bilateral edema of lower extremity: CODE(S): R60.0 - Localized edema (4) Cellulitis of left foot: CODE(S): L03.116 - Cellulitis of left lower limb (5) Left foot pain: CODE(S): M79.672 - Pain in left foot (6) Tobacco abuse: CODE(S): Z72.0 - Tobacco use (7) Obesity: CODE(S): E66.9 - Obesity, unspecified QUALIFIERS: Obesity type: due to excess calories Obesity classification: adult class 1 (BMI 30 - 34.9) Serious obesity comorbidity presence: with serious comorbidity Body mass index: BMI 33.0-33.9 Qualified Code(s): E66.09 - Other obesity due to excess calories; Z68.33 - Body mass index [BMI] 33.0-33.9, adult (8) Ulcer of left foot with fat layer exposed: CODE(S): L97.522 - Non-pressure chronic ulcer of other part of left foot with fat layer exposed (9) Difficulty in walking: CODE(S): R26.2 - Difficulty in walking, not elsewhere classified PLAN: Patient seen and examined. I reviewed and discussed his case. Debridement was performed as noted in the clinical nursing panel. Dressing recommendation: To change dressing daily with Dakin wet-to-dry. Wash: Antibacterial soap and water. Avoid soaking. Patient wound is noted to have improved with healthier appearance and there is no malodor. There are no local signs infection noted today. Prior culture of wound was obtained 02/27/21 which was positive for MRSA, proteus, enterococcus, anaerobic cocci, Bacteroides. Completed a full course of Augmentin and Bactrim. He is stable at this time. Offloading: To continue offloading with cam walker boot. To use assistive device to maintain nonweightbearing status. Compliance was reiterated and it does not appear he has been able to successfully stay off of the ulcer. I recommend a total contact cast application he is not amenable today. He will consider this for follow-up. Patient relates he had follow-up appointment with his primary care provider, Priyanka Brown, and relates that she did not change any medication and stated he was doing okay. PCP is leaving the diabetes management up to his set off blocker, Dr. Mykel Barraza. He was able to follow-up and recommendations were updated. I previously recommended updating his labs including CBC, CMP, ESR, hemoglobin A1c. I also recommend updating his foot x-rays. Orders were provided previously. His white blood cell count was 8.6, ESR 34. His last A1c on file was 10.3% in . His foot x-rays were reviewed previously, and these do not demonstrate any acute osseous destruction, fracture, dislocation, soft tissue emphysema or foreign body. His skin discontinuity consistent with his ulcer site is seen. Discussed importance of cleaning and maintaining foot both to prevent infection as well as to prevent future wounds. Discussed he is at higher risk for wounds due to his diabetes, neuropathy, hyperglycemia, obesity, swelling, and tobacco abuse. Discussed that he needs to cut back on his smoking, preferably quit, and better controlling his blood sugar to better optimize his healing. Patient has not improved his tobacco abuse or his hyperglycemia. Reviewed how pressure will impact the wound. Arterial studies were reviewed. Showing likely adequate perfusion for healing. Right LAI is 0.99 and left 1.18. Right toe brachial index 0.76 and left 0.71. Referral to Dr. Campos for potential venous and arterial intervention was provided today. He went for consultation I will request the medical records. Patient relates he has been smoking since he was 10 years old. Discussed impact smoking has on his vessels as well as impact on wound healing. Patient relates that he is unwilling to quit entirely but he will try to cut back. He does not want any medical assistance at this process. Edema management: Prior Tubigrip and Kevin wrap and elevation were used to control edema. I recommend trying multilayer compression including a 3M2L. Host factors: His multiple comorbidities are noted including diabetes and smoking history. Also recommend improvement in nutritional status which involves taking in adequate protein and also focusing on eating 5-10 whole foods daily. All questions answered. Patient to follow up in 1 week or call sooner if status worsening or if questions. I answered all of his questions. This note was generated with [employer] software. It may contain incorrect words, spelling, and punctuation that were not noted in checking the note before signing.
== END 2021-04-17 23:59 ==
LOC: WC 08:45
PROVIDERS: Referring Provider Podiatrist Foot & Ankle Surgery; Visit Provider Podiatrist
DX: E11.621 Type 2 diabetes mellitus with foot ulcer (principal); L97.422 Non-pressure chronic ulcer of left heel and midfoot with fat layer exposed; M79.89 Other specified soft tissue disorders; L84 Corns and callosities; I10 Essential (primary) hypertension; E66.09 Other obesity due to excess calories; Z68.33 Body mass index [BMI] 33.0-33.9, adult; E11.42 Type 2 diabetes mellitus with diabetic polyneuropathy; F17.200 Nicotine dependence, unspecified, uncomplicated; R26.2 Difficulty in walking, not elsewhere classified; L03.116 Cellulitis of left lower limb
CPT/HCPCS: 11042; 29445; 29581

== ENCOUNTER → 2021-05-01 12:59 | Outpatient (CLI) | payer MEDICARE, BC, SELFPAY ==
--- NOTE | 2021-05-01 13:03 | ART_ITS ---
Reason For Study: Stricture of artery Procedure A bilateral lower extremity continuous wave Doppler with analog waveform analysis and ankle brachial indexes. Left Segmental Pressures Left brachial= 159mmHg. Left posterior tibial artery = 201mmHg. Left dorsalis pedis artery = 183mmHg. The left dorsalis pedis waveforms are triphasic. The left posterior tibial artery waveforms are triphasic. Right Segmental Pressures Right brachial= 156mmHg. Right posterior tibial artery = 175mmHg. Right dorsalis pedis artery = 174mmHg. The right dorsalis pedis waveforms are triphasic. The right posterior tibial artery waveforms are triphasic. Indices The right ankle brachial index by the dorsalis pedis is 1.09. The right ankle brachial index by the posterior tibial artery is 1.10. The left ankle brachial index by the dorsalis pedis is 1.15. The left ankle brachial index by the posterior tibial artery is 1.26. VL/Ankle Brachial Index Interpretation Summary Bilateral lower extremities no evidence of significant occlusive disease at res t with triphasic flow in LAI 1.1 and 1.26. Ordering Physician: Umer Campos Performed By: Liana Patino RVT
--- NOTE | 2021-05-01 13:03 | ADUL_ITS ---
Reason For Study: Stricture of artery Left Velocities Ext Iliac Artery, dist = 139.6 cm./sec. Common Femoral Artery, mid = 130.8 cm./sec. Supf. Femoral Artery, prox = 126.4 cm./sec. Supf. Femoral Artery, mid = 135.1 cm./sec. Supf. Femoral Artery, dist = 104.4 cm./sec. Profunda Femoral Artery = 104.5 cm./sec. Popliteal Artery, mid = 108.8 cm./sec. Post. Tibial Artery, prox = 94.3 cm./sec. Post Tibial Artery, mid = 145.3 cm./sec. Post Tibial Artery, dist. = 110.6 cm./sec. Peroneal Artery, prox = 88.7 cm./sec. Peroneal Artery, mid = 83.2 cm./sec. Peroneal Artery,dist. = 74.1 cm./sec. Ant.Tibial Artery, prox = 92.3 cm./sec. Ant Tibial Artery, mid = 79.5 cm./sec. Ant. Tibial Artery, distal = 90.5 cm./sec. Procedure Exam performed in department. VL/US Art Duplex Unilat Lower Ext Interpretation Summary Right lower extremity with no evidence of stenosis visualized with triphasic fl ow throughout. Ordering Physician: Umer Campos Performed By: Liana Patino RVT
== END ==
PROVIDERS: Referring Provider Surgery Vascular Surgery; Visit Provider Surgery Vascular Surgery
DX: I77.1 Stricture of artery (principal); I70.213 Atherosclerosis of native arteries of extremities with intermittent claudication, bilateral legs; I12.9 Hypertensive chronic kidney disease with stage 1 through stage 4 chronic kidney disease, or unspecified chronic kidney disease; N18.9 Chronic kidney disease, unspecified; E78.00 Pure hypercholesterolemia, unspecified; I21.3 ST elevation (STEMI) myocardial infarction of unspecified site; E10.9 Type 1 diabetes mellitus without complications; M19.90 Unspecified osteoarthritis, unspecified site
CPT/HCPCS: 93922; 93926

== ENCOUNTER 2021-05-02 09:00 | Outpatient (RCR) | payer MEDICARE, BC, SELFPAY ==
[2021-04-18 00:26] VITALS: BP 175/83; PULSE 62; RESP 18; TEMP 36.7; BMI 33.7
[2021-04-25 08:53] VITALS: BP 142/80; PULSE 61; RESP 18; TEMP 36.3; BMI 33.7
--- NOTE | 2021-04-25 09:17 | PCM.WC.PN ---
History of Present Illness Date of Service: 04/25/21 Chief Complaint: left heel ulcer History of Wound: Patient presents for chronic non healing wound to left plantar foot. Patient also has significant swelling to his legs, especially his left. He relates he has smoked since he was 10 years old. He also has significant medical history of tobacco abuse, obesity, CAMACHO, edema, COPD, hypercapnia, diabetes with neuropathy. Patient has also had admission to the hospital for hypoxemia and heart failure in August 2020. Patient was noted to be discharged on oxygen therapy. Patient did not present to the clinic today on his oxygen again. He relates that safety physician recommends he is use 2 L of oxygen. Patient has not been using this. Patient is noted to have significant delayed healing. It is most likely due to his comorbidities including uncontrolled diabetes, morbid obesity, tobacco abuse. Patient seems reluctant to have these factors better controlled in order to promote wound healing. He also keeps walking on his ulcer. He denies fever, chill, nausea, vomiting. He has been able to perform dressing changes. He recently also saw his electronic specialist and reports medication adjustments were made to help improve his glucose. He is trying to keep weight off of his foot however this is very difficult. He has a cam walker boot. He saw vascular specialist Dr. Campos recently and has an additional test scheduled to see if intervention is possible. He continues to smoke 3 to 4 cigarettes a day. Objective Data Objective Data Vital Signs: Vital Signs Temp Pulse Resp BP 97.3 F L 61 18 142/80 H 04/25/21 08:53 04/25/21 08:53 04/25/21 08:53 04/25/21 08:53 Body Mass Index (BMI) 33.7 Physical Exam Narrative Const alert and no apparent distress General Appearance: cooperative and comfortable Extremity no calf tenderness, negative milo and draper sign lower extremity edema left worse than right General Extremity: Negative for clubbing or cyanosis or ecchymosis or erythema Vasc Peripheral Pulses: posterior tibial pulses present but diminished and dorsalis pedis pulses present but diminished, normal capillary refill, no acute ischemic skin changes noted, normal temperature Skin General Skin Exam: dry skin, decreased hair growth noted; Negative for ecchymosis, eschar, pallor, rashes Wound Narrative: ulcer noted to plantar left heel Healthy in appearance today. No malodor. No purulence, probing to bone, streaking, fluctuation, crepitus. Skin is its normal color. no periwound maceration noted. Skin is atrophic and hairless. Granular and fat base. Minimal serosanguinous drainage. buildup of callus noted periwound as well as to posterior medial and lateral heel in general. Pain to palpation ulcer Neuro Gait (Neuro): heel to toe Sensory Exam: extremities light-touch: decreased Debridement Note Debridement Note Wound debrided: left plantar heel Wound Grade/Stage: 1 Type of Debridement: Excisional debridement Anesthesia Used: 4% Lidocaine Solution Depth: in the subcutaneous layer Percentage of wound debrided: 100 Instrument Used: #15 blade Tissue Removed: fibrous, devitalized subcutaneous, biofilm, slough Severity: Fat Layer Exposed Amount of bleeding with debridement: Mild Bleeding Controlled with: Pressure Patient tolerated procedure: Patient tolerated procedure well Post-Debridement Measurements and Additional Note: Post-Debridement Measurements/Treatment - Nurse 1 - General Ulcer Assessment Start: 04/25/21 08:52 Freq: Status: Active Protocol: EVELYN Activity Type Activity Date Activity User E-Sign Co-Sign Detail Recorded Client Recorded Date Recorded By Document 04/25/21 08:53 [facility] [id number] 04/25/21 08:58 [facility] 04/25/21 08:53 - Today's Visit Information Type of service Follow-up Visit (Physician/SCREEN TENDER ) Arrival Mode Ambulatory, Walker Transfer Assistance None Patient Identification Verified (Name & Yes ) Patient Requires Transmission-Based No Precautions Height and Weight Body Mass Index (BMI) 33.7 BMI Classification Obese Vital Signs Temperature (97.8 F-99.1 F) 97.3 F L Temperature Source Temporal Pulse Rate (60-100) 61 Pulse Location Monitor Respiratory Rate (12-18) 18 Blood Pressure (90/60-120/80) 142/80 H Blood Pressure Mean (mm Hg) 100 Source Monitor Position Semi-Fowlers Blood Pressure Location Left Arm History Since Last Visit- (Skip if this is Patient's initial visit) Have you changed medications since your No last visit? Any new allergies or adverse reactions No Had a fall/change in ADL's that may No increase risk of falls Have you been in the hospital since your No last visit? Has dressing in place as prescribed Yes Has compression in place as prescribed Yes Has offloadiing in place as prescribed No Left Footwear Regular Shoe Right Footwear Regular Shoe Pain Scale: 0-10 Numeric Is Patient Pain Free? Yes - Nurse 1 - General Ulcer Measurement Start: 04/25/21 08:52 Freq: Status: Active Protocol: Activity Type Activity Date Activity User E-Sign Co-Sign Detail Recorded Client Recorded Date Recorded By Document 04/25/21 08:53 [facility] [id number] 04/25/21 08:58 [facility] 04/25/21 08:53 Wound Center Nurse 1 #1 left heel CLUSTER -Combined with other wound No -Current Size (cm) - Length 1.6 -Current Size (cm) - Width 2.3 -Current Size (cm) - Depth 0.6 -Total Square Cm 3.68 -Tunneling No -Undermining/Tunneling Yes -Undermining/Tunneling Starts (O'clock 4 ) -Undermining/Tunneling Ends (O'clock) 7 -Maximum Distance (cm) 0.5 -Circular Undermining No -Exudate Amt Large -Exudate Type Serosanguineous -Wound Margin Fibrotic Scar, Thickened Scar -Granulation Amt Medium (34-66%) -Granulation Quality Bangs -Slough/Fibrin Yes -Necrosis Amt Medium (34-66%) -Necrotic Tissue Type Adherent Slough -Structure Exposed N/A -Texture (Margaret-wound Skin Appearance) Assessed,Callus -Moisture (Margaret-wound Skin Appearance) Maceration -Color (Margaret-wound Skin Appearance) Assessed -Temperature (Margaret-wound Skin No Abnormality Appearance) (Pt Warm) -Tenderness on Palpation (Margaret-wound No Skin Appearance) -Ulcer Cleansing Wound Cleanser -Foul Odor after Cleansing No -Anesthetic Used 5% Lidocaine Gel Lower Limb Edema Present Yes Left Calf (cm) 41.9 Left Ankle (cm) 26 - Nurse 2 - General Ulcer CM Notes Start: 04/25/21 08:52 Freq: Status: Active Protocol: Activity Type Activity Date Activity User E-Sign Co-Sign Detail Recorded Client Recorded Date Recorded By Document 04/25/21 09:06 [id number] 04/25/21 09:09 04/25/21 09:06 Wound Center Nurse 2 #1 left heel CLUSTER -Time 09:06 -Correct Patient Yes -Correct Side, Site, Position Yes -Correct Procedure Yes -Procedure Performed Yes -Type of Procedure Debridement -Clinical Debridement Subcutaneous -Tissue Removed Subcutaneous -Post Debridement (cm) - Length 2.2 -Post Debridement (cm) - Width 2.1 -Post Debridement (cm) - Depth 0.8 -Total Square (Post) (cm) 4.62 -Area of Debridement (cm) - Length 2.2 -Area of Debridement (cm) - Width 2.1 -Total Square (Area) (cm) 4.62 -Tunneling No -Undermining/Tunneling No -Circular Undermining No -Wound/Ulcer Outcome Not Healed -Ulcer Cleansing Rinsed/ Irrigated with Saline -Foul Odor after Cleansing No -Bioengineered Tissue No -Bleeding Controlled with Pressure -Offloading No -Treatment Response Procedure Tolerated Well -Debridement - Subq, 1st 20sq cm Yes Pain Scale: 0-10 Numeric Is Patient Pain Free? Yes Assessment/Plan Assessment/Plan (1) Type 2 diabetes mellitus with diabetic polyneuropathy: CODE(S): E11.42 - Type 2 diabetes mellitus with diabetic polyneuropathy QUALIFIERS: Diabetes mellitus terminal system operator insulin use: with penitentiary use Qualified Code(s): E11.42 - Type 2 diabetes mellitus with diabetic polyneuropathy; Z79.4 - terminal system operator (current) use of insulin (2) Delayed wound healing: CODE(S): T14.8XXD - Other injury of unspecified body region, subsequent encounter (3) Bilateral edema of lower extremity: CODE(S): R60.0 - Localized edema (4) Cellulitis of left foot: CODE(S): L03.116 - Cellulitis of left lower limb (5) Left foot pain: CODE(S): M79.672 - Pain in left foot (6) Tobacco abuse: CODE(S): Z72.0 - Tobacco use (7) Obesity: CODE(S): E66.9 - Obesity, unspecified QUALIFIERS: Obesity type: due to excess calories Obesity classification: adult class 1 (BMI 30 - 34.9) Serious obesity comorbidity presence: with serious comorbidity Body mass index: BMI 33.0-33.9 Qualified Code(s): E66.09 - Other obesity due to excess calories; Z68.33 - Body mass index [BMI] 33.0-33.9, adult (8) Ulcer of left foot with fat layer exposed: CODE(S): L97.522 - Non-pressure chronic ulcer of other part of left foot with fat layer exposed (9) Difficulty in walking: CODE(S): R26.2 - Difficulty in walking, not elsewhere classified PLAN: Patient seen and examined. I reviewed and discussed his case. Debridement was performed as noted in the clinical nursing panel. Dressing recommendation: To change dressing daily with Dakin wet-to-dry. Wash: Antibacterial soap and water. Avoid soaking. Patient wound is noted to have improved with healthier appearance and there is no malodor. There are no local signs infection noted today. Prior culture of wound was obtained 02/27/21 which was positive for MRSA, proteus, enterococcus, anaerobic cocci, Bacteroides. Completed a full course of Augmentin and Bactrim. He is stable at this time. Offloading: To continue offloading with cam walker boot. To use assistive device to maintain nonweightbearing status. Compliance was reiterated and it does not appear he has been able to successfully stay off of the ulcer. I recommend a total contact cast application he is not amenable today. He will consider this for follow-up. Patient relates he had follow-up appointment with his primary care provider, Priyanka Brown, and relates that she did not change any medication and stated he was doing okay. PCP is leaving the diabetes management up to his electronic specialist, Dr. Mykel Barraza. He was able to follow-up and recommendations were updated. I previously recommended updating his labs including CBC, CMP, ESR, hemoglobin A1c. I also recommend updating his foot x-rays. Orders were provided previously. His white blood cell count was 8.6, ESR 34. His last A1c on file was 10.3% in . His foot x-rays were reviewed previously, and these do not demonstrate any acute osseous destruction, fracture, dislocation, soft tissue emphysema or foreign body. His skin discontinuity consistent with his ulcer site is seen. Discussed importance of cleaning and maintaining foot both to prevent infection as well as to prevent future wounds. Discussed he is at higher risk for wounds due to his diabetes, neuropathy, hyperglycemia, obesity, swelling, and tobacco abuse. Discussed that he needs to cut back on his smoking, preferably quit, and better controlling his blood sugar to better optimize his healing. Patient has not improved his tobacco abuse or his hyperglycemia. Reviewed how pressure will impact the wound. Arterial studies were reviewed. Showing likely adequate perfusion for healing. Right LAI is 0.99 and left 1.18. Right toe brachial index 0.76 and left 0.71. Referral to Dr. Campos for potential venous and arterial intervention was provided today. He went for consultationon 04-11-21. Will recheck duplex to make sure normal posterior tibial flow into the area of the wound. normal prior LAI noted. Patient relates he has been smoking since he was 10 years old. Discussed impact smoking has on his vessels as well as impact on wound healing. Patient relates that he is unwilling to quit entirely but he will try to cut back. He does not want any medical assistance at this process. Edema management: Prior Tubigrip and Kevin wrap and elevation were used to control edema. I recommend trying multilayer compression including a 3M2L. Host factors: His multiple comorbidities are noted including diabetes and smoking history. Also recommend improvement in nutritional status which involves taking in adequate protein and also focusing on eating 5-10 whole foods daily. All questions answered. Patient to follow up in 1 week or call sooner if status worsening or if questions. I answered all of his questions. This note was generated with [email or web address] dictation software. It may contain incorrect words, spelling, and punctuation that were not noted in checking the note before signing.
[2021-05-02 09:07] VITALS: BP 147/77; PULSE 63; RESP 18; TEMP 36.4; BMI 33.7
--- NOTE | 2021-05-02 09:54 | PCM.WC.PN ---
History of Present Illness Date of Service: 05/02/21 Chief Complaint: left heel ulcer History of Wound: Patient presents for chronic non healing wound to left plantar foot. Patient also has significant swelling to his legs, especially his left. He relates he has smoked since he was 10 years old. He also has significant medical history of tobacco abuse, obesity, CAMACHO, edema, COPD, hypercapnia, diabetes with neuropathy. Patient has also had admission to the hospital for hypoxemia and heart failure in August 2020. Patient was noted to be discharged on oxygen therapy. Patient did not present to the clinic today on his oxygen again. He relates that stamper blocker recommends he is use 2 L of oxygen. Patient has not been using this. Patient is noted to have significant delayed healing. It is most likely due to his comorbidities including uncontrolled diabetes, morbid obesity, tobacco abuse. Patient seems reluctant to have these factors better controlled in order to promote wound healing. He also keeps walking on his ulcer. He denies fever, chill, nausea, vomiting. He has been able to perform dressing changes. He recently also saw his administrative assistant receptionist and reports medication adjustments were made to help improve his glucose. He is trying to keep weight off of his foot however this is very difficult. He has a cam walker boot. He saw vascular specialist Dr. Campos recently and had an additional test completed; he has an upcoming follow up appointment scheduled. He also asked for help safely trimming his toenails. He has neuropathy and is unable to safely perform this on his own. He has continued rest paresthesias, fluctuating swelling and temperature changes. Progress of Wound: stable Objective Data Objective Data Vital Signs: Vital Signs Temp Pulse Resp BP 97.6 F L 63 18 147/77 H 05/02/21 09:07 05/02/21 09:07 05/02/21 09:07 05/02/21 09:07 Body Mass Index (BMI) 33.7 Physical Exam Narrative Const alert and no apparent distress General Appearance: cooperative and comfortable Extremity no calf tenderness, negative milo and draper sign lower extremity edema left worse than right General Extremity: Negative for clubbing or cyanosis or ecchymosis or erythema Vasc Peripheral Pulses: posterior tibial pulses present but diminished and dorsalis pedis pulses present but diminished, normal capillary refill, no acute ischemic skin changes noted, normal temperature Skin General Skin Exam: dry skin, decreased hair growth noted; Negative for ecchymosis, eschar, pallor, rashes. Toenails are elongated, thick, dystrophic and with subungual debris x10. Wound Narrative: ulcer noted to plantar left heel Healthy in appearance today. No malodor. No purulence, probing to bone, streaking, fluctuation, crepitus. Skin is its normal color. no periwound maceration noted. Skin is atrophic and hairless. Granular and fat base. Minimal serosanguinous drainage. buildup of callus noted periwound as well as to posterior medial and lateral heel in general. Pain to palpation ulcer decreased Neuro Gait (Neuro): heel to toe Sensory Exam: extremities light-touch: decreased Debridement Note Debridement Note Wound debrided: left heel plantar Wound Grade/Stage: 1 Type of Debridement: Excisional debridement Anesthesia Used: 4% Lidocaine Solution Depth: in the subcutaneous layer Percentage of wound debrided: 100 Instrument Used: #15 blade Tissue Removed: fibrous, devitalized subcutaneous, biofilm, slough Severity: Fat Layer Exposed Amount of bleeding with debridement: Mild Bleeding Controlled with: Pressure Patient tolerated procedure: Patient tolerated procedure well Post-Debridement Measurements and Additional Note: Post-Debridement Measurements/Treatment - Nurse 1 - General Ulcer Assessment Start: 04/25/21 08:52 Freq: Status: Active Protocol: EVELYN Activity Type Activity Date Activity User E-Sign Co-Sign Detail Recorded Client Recorded Date Recorded By Document 04/25/21 08:53 [facility] [id number] 04/25/21 08:58 [facility] Document 05/02/21 09:07 [id number] 05/02/21 09:10 04/25/21 05/02/21 08:53 09:07 - Today's Visit Information Type of service Follow-up Visit Follow-up Visit (Physician/HOME CARE CONSULTANT (Physician/HOME CARE CONSULTANT ) ) Arrival Mode Ambulatory, Ambulatory Walker Transfer Assistance None None Patient Identification Verified (Name & Yes Yes ) Patient Requires Transmission-Based No Precautions Height and Weight Body Mass Index (BMI) 33.7 33.7 BMI Classification Obese Obese Vital Signs Temperature (97.8 F-99.1 F) 97.3 F L 97.6 F L Temperature Source Temporal Temporal Pulse Rate (60-100) 61 63 Pulse Location Monitor Monitor Respiratory Rate (12-18) 18 18 Respiratory rate source Observation Blood Pressure (90/60-120/80) 142/80 H 147/77 H Blood Pressure Mean (mm Hg) 100 100 Source Monitor Monitor Position Semi-Fowlers Semi-Fowlers Blood Pressure Location Left Arm Left Arm History Since Last Visit- (Skip if this is Patient's initial visit) Have you changed medications since your No No last visit? Any new allergies or adverse reactions No No Had a fall/change in ADL's that may No No increase risk of falls Signs or symptoms of abuse and/or No neglect since last visit Have you been in the hospital since your No No last visit? Has dressing in place as prescribed Yes Yes Has compression in place as prescribed Yes Yes Has offloadiing in place as prescribed No No Experienced any changes in pain level or No management Left Footwear Regular Shoe Right Footwear Regular Shoe Pain Scale: 0-10 Numeric Is Patient Pain Free? Yes Yes WC - Nurse 1 - General Ulcer Measurement Start: 04/25/21 08:52 Freq: Status: Active Protocol: Activity Type Activity Date Activity User E-Sign Co-Sign Detail Recorded Client Recorded Date Recorded By Document 04/25/21 08:53 [facility] [id number] 04/25/21 08:58 [facility] Document 05/02/21 09:07 [id number] 05/02/21 09:10 RB 04/25/21 05/02/21 08:53 09:07 Wound Center Nurse 1 #1 left heel CLUSTER -Combined with other wound No No -Current Size (cm) - Length 1.6 2.2 -Current Size (cm) - Width 2.3 2.3 -Current Size (cm) - Depth 0.6 1 -Total Square Cm 3.68 5.06 -Tunneling No No -Undermining/Tunneling Yes No -Undermining/Tunneling Starts (O'clock 4 ) -Undermining/Tunneling Ends (O'clock) 7 -Maximum Distance (cm) 0.5 -Circular Undermining No No -Exudate Amt Large Large -Exudate Type Serosanguineous Serosanguineous -Wound Margin Fibrotic Scar, Thickened & Thickened Scar Rolled Under -Granulation Amt Medium (34-66%) Medium (34-66%) -Granulation Quality [place] -Slough/Fibrin Yes Yes -Necrosis Amt Medium (34-66%) Small (1-33%) -Necrotic Tissue Type Adherent Slough Adherent Slough -Structure Exposed N/A N/A -Texture (Margaret-wound Skin Appearance) Assessed,Callus Assessed,Callus -Moisture (Margaret-wound Skin Appearance) Maceration Assessed -Color (Margaret-wound Skin Appearance) Assessed Assessed -Temperature (Margaret-wound Skin No Abnormality No Abnormality Appearance) (Pt Warm) (Pt Warm) -Tenderness on Palpation (Margaret-wound No No Skin Appearance) -Ulcer Cleansing Wound Cleanser Wound Cleanser -Foul Odor after Cleansing No No -Anesthetic Used 5% Lidocaine 5% Lidocaine Gel Gel Lower Limb Edema Present Yes Left Calf (cm) 41.9 Left Ankle (cm) 26 WC - Nurse 2 - General Ulcer CM Notes Start: 04/25/21 08:52 Freq: Status: Active Protocol: Activity Type Activity Date Activity User E-Sign Co-Sign Detail Recorded Client Recorded Date Recorded By Document 04/25/21 09:06 [id number] 04/25/21 09:09 Document 05/02/21 09:16 [id number] 05/02/21 09:22 04/25/21 05/02/21 09:06 09:16 Wound Center Nurse 2 #1 left heel CLUSTER -Time 09:06 09:16 -Correct Patient Yes Yes -Correct Side, Site, Position Yes Yes -Correct Procedure Yes Yes -Procedure Performed Yes Yes -Type of Procedure Debridement Debridement -Clinical Debridement Subcutaneous Subcutaneous -Tissue Removed Subcutaneous Subcutaneous -Post Debridement (cm) - Length 2.2 1.8 -Post Debridement (cm) - Width 2.1 2.0 -Post Debridement (cm) - Depth 0.8 1.0 -Total Square (Post) (cm) 4.62 3.60 -Area of Debridement (cm) - Length 2.2 1.8 -Area of Debridement (cm) - Width 2.1 2.0 -Total Square (Area) (cm) 4.62 3.60 -Tunneling No No -Undermining/Tunneling No No -Circular Undermining No No -Wound/Ulcer Outcome Not Healed Not Healed -Ulcer Cleansing Rinsed/ Rinsed/ Irrigated with Irrigated with Saline Saline -Foul Odor after Cleansing No No -Bioengineered Tissue No No -Bleeding Controlled with Pressure Pressure -Offloading No Yes -Type of Offloading Camwalker -Treatment Response Procedure Procedure Tolerated Well Tolerated Well -Debridement - Subq, 1st 20sq cm Yes Yes Pain Scale: 0-10 Numeric Is Patient Pain Free? Yes Yes - Nurse 3 - General Ulcer D/C NN Start: 04/25/21 08:52 Freq: Status: Active Protocol: Activity Type Activity Date Activity User E-Sign Co-Sign Detail Recorded Client Recorded Date Recorded By Document 04/25/21 09:19 DL [id number] 04/25/21 09:22 DL Document 05/02/21 09:37 RB [id number] 05/02/21 09:38 RB 04/25/21 05/02/21 09:19 09:37 Wound Care Nurse 3 #1 left heel CLUSTER -Ulcer Cleansing Rinsed/ Rinsed/ Irrigated with Irrigated with Saline Saline -Foul Odor after Cleansing No -Other Dressing Iodosorb iodorsorb Ointment ointment -Primary Dressing Covered/Secured with Dry Gauze & Dry Gauze,Dry Roll Gauze, Gauze & Roll Secured with Gauze,Secured Tape with Tape -Other Covering abd Left -Multi-Layered Wrap Application Multi-Layer Comp - Left ($) -Tubular Bandage Single Layer -Size of Tubigrip Used Size E -Size E ($) 1 -Other aayush Treatment Response Procedure Procedure Tolerated Well Tolerated Well Pain Scale: 0-10 Numeric Is Patient Pain Free? Yes Yes - Visit Discharge Discharge Condition Stable Stable Ambulatory Status Ambulatory, Ambulatory, Wheelchair Walker Transportation Private Auto Private Auto Medication Reconcilliation completed & No provided to patient/care provider Clinical Summary of Care Provided Yes Notes: HH to apply Tubigrip to LLE on 04/30/21 Facility Type Home Health Orders Sent Yes Assessment/Plan Assessment/Plan (1) Type 2 diabetes mellitus with diabetic polyneuropathy: CODE(S): E11.42 - Type 2 diabetes mellitus with diabetic polyneuropathy QUALIFIERS: Diabetes mellitus chcf insulin use: with chcf use Qualified Code(s): E11.42 - Type 2 diabetes mellitus with diabetic polyneuropathy; Z79.4 - [facility] (current) use of insulin (2) Delayed wound healing: CODE(S): T14.8XXD - Other injury of unspecified body region, subsequent encounter (3) Bilateral edema of lower extremity: CODE(S): R60.0 - Localized edema (4) Cellulitis of left foot: CODE(S): L03.116 - Cellulitis of left lower limb (5) Left foot pain: CODE(S): M79.672 - Pain in left foot (6) Tobacco abuse: CODE(S): Z72.0 - Tobacco use (7) Obesity: CODE(S): E66.9 - Obesity, unspecified QUALIFIERS: Body mass index: BMI 33.0-33.9 Obesity classification: adult class 1 (BMI 30 - 34.9) Obesity type: due to excess calories Serious obesity comorbidity presence: with serious comorbidity Qualified Code(s): E66.09 - Other obesity due to excess calories; Z68.33 - Body mass index [BMI] 33.0-33.9, adult (8) Ulcer of left foot with fat layer exposed: CODE(S): L97.522 - Non-pressure chronic ulcer of other part of left foot with fat layer exposed (9) Difficulty in walking: CODE(S): R26.2 - Difficulty in walking, not elsewhere classified (10) Other hereditary and idiopathic neuropathies: CODE(S): G60.8 - Other hereditary and idiopathic neuropathies (11) Tinea unguium: CODE(S): B35.1 - Tinea unguium PLAN: Patient seen and examined. I reviewed and discussed his case. Debridement was performed as noted in the clinical nursing panel. Dressing recommendation: To change dressing daily with iodosorb daily. Wash: Antibacterial soap and water. Avoid soaking. Patient wound is noted to have improved with healthier appearance and there is no malodor. There are no local signs infection noted today. Prior culture of wound was obtained 02/27/21 which was positive for MRSA, proteus, enterococcus, anaerobic cocci, Bacteroides. Completed a full course of Augmentin and Bactrim. He is stable at this time. Offloading: To continue offloading with cam walker boot. To use assistive device to maintain nonweightbearing status. Compliance was reiterated and it does not appear he has been able to successfully stay off of the ulcer. I recommend a total contact cast application he is not amenable today. He will consider this for follow-up. Patient relates he had follow-up appointment with his primary care provider, Priyanka Brown, and relates that she did not change any medication and stated he was doing okay. PCP is leaving the diabetes management up to his administrative assistant receptionist, Dr. Mykel Barraza. He was able to follow-up and recommendations were updated. I previously recommended updating his labs including CBC, CMP, ESR, hemoglobin A1c. I also recommend updating his foot x-rays. Orders were provided previously. His white blood cell count was 8.6, ESR 34. His last A1c on file was 10.3% in . His foot x-rays were reviewed previously, and these do not demonstrate any acute osseous destruction, fracture, dislocation, soft tissue emphysema or foreign body. His skin discontinuity consistent with his ulcer site is seen. Discussed importance of cleaning and maintaining foot both to prevent infection as well as to prevent future wounds. Discussed he is at higher risk for wounds due to his diabetes, neuropathy, hyperglycemia, obesity, swelling, and tobacco abuse. Discussed that he needs to cut back on his smoking, preferably quit, and better controlling his blood sugar to better optimize his healing. Patient has not improved his tobacco abuse or his hyperglycemia. Reviewed how pressure will impact the wound. Arterial studies were reviewed. Showing likely adequate perfusion for healing. Right LAI is 0.99 and left 1.18. Right toe brachial index 0.76 and left 0.71. Referral to Dr. Campos for potential venous and arterial intervention was provided today. He went for consultationon 04-11-21. Will recheck duplex to make sure normal posterior tibial flow into the area of the wound. normal prior LAI noted. Patient relates he has been smoking since he was 10 years old. Discussed impact smoking has on his vessels as well as impact on wound healing. Patient relates that he is unwilling to quit entirely but he will try to cut back. He does not want any medical assistance at this process. Edema management: tubigrip and aayush wrap. to elevate. Host factors: His multiple comorbidities are noted including diabetes and smoking history. Also recommend improvement in nutritional status which involves taking in adequate protein and also focusing on eating 5-10 whole foods daily. All questions answered. I trimmed his toenails today with a nail nipper in length and thickness without incidence to reduce fungal load, decrease pressure and prevent ulcer formation. This is medically necessary to have performed by a medical professional due to his neuropathic status and class findings. He tolerated this well. Patient to follow up in 1 week or call sooner if status worsening or if questions. I answered all of his questions. This note was generated with [employer] dictation software. It may contain incorrect words, spelling, and punctuation that were not noted in checking the note before signing.
== END 2021-05-18 23:59 ==
LOC: WC 09:00
PROVIDERS: Referring Provider Podiatrist Foot & Ankle Surgery; Visit Provider Podiatrist
DX: E11.621 Type 2 diabetes mellitus with foot ulcer (principal); M79.89 Other specified soft tissue disorders; L84 Corns and callosities; E66.09 Other obesity due to excess calories; Z68.33 Body mass index [BMI] 33.0-33.9, adult; L97.422 Non-pressure chronic ulcer of left heel and midfoot with fat layer exposed; M79.672 Pain in left foot; E11.42 Type 2 diabetes mellitus with diabetic polyneuropathy; F17.210 Nicotine dependence, cigarettes, uncomplicated; J44.9 Chronic obstructive pulmonary disease, unspecified; G47.33 Obstructive sleep apnea (adult) (pediatric); I50.9 Heart failure, unspecified; I11.0 Hypertensive heart disease with heart failure; R26.2 Difficulty in walking, not elsewhere classified; L03.116 Cellulitis of left lower limb
CPT/HCPCS: 11042; 29581

== ENCOUNTER 2021-05-23 09:15 | Outpatient (RCR) | payer MEDICARE, BC, SELFPAY ==
[2021-05-19 00:25] VITALS: BP 147/77; PULSE 63; RESP 18; TEMP 36.4; BMI 33.7
[2021-05-23 09:37] VITALS: BP 148/69; PULSE 62; TEMP 36.3; BMI 33.7
--- NOTE | 2021-05-23 11:12 | PN.PCM_ITS ---
History of Present Illness Date of Service: 05/23/21 Chief Complaint: left heel ulcer History of Wound: Patient presents for chronic non healing wound to left plantar foot. Patient also has significant swelling to his legs, especially his left. He relates he has smoked since he was 10 years old. He also has significant medical history of tobacco abuse, obesity, CAAMCHO, edema, COPD, hypercapnia, diabetes with neuropathy. Patient has also had admission to the hospital for hypoxemia and heart failure in August 2020. Patient was noted to be discharged on oxygen therapy. Patient did not present to the clinic today on his oxygen again. He relates that wool washer recommends he is use 2 L of oxygen. Patient has not been using this. Patient is noted to have significant delayed healing. It is most likely due to his comorbidities including uncontrolled diabetes, morbid obesity, tobacco abuse. Patient seems reluctant to have these factors better controlled in order to promote wound healing. He also keeps walking on his ulcer. He denies fever, chill, nausea, vomiting. He has been able to perform dressing changes. He recently also saw his lye peel operator and reports medication adjustments were made to help improve his glucose. He has a cam walker boot and wears it 50% of time. He admits he is routinely walking all over his ulcer. He saw vascular specialist Dr. Campos recently and had an additional test completed; he has an upcoming follow up appointment scheduled. He also asked for help safely trimming his toenails. He has neuropathy and is unable to safely perform this on his own. He has continued rest paresthesias, fluctuating swelling and temperature changes. He does not want to have his ulcer debridement however after going over the purpose he is amendable to proceed. Progress of Wound: Stable Objective Data Objective Data Vital Signs: Vital Signs Temp Pulse Resp BP 97.4 F L 62 18 148/69 H 05/23/21 09:37 05/23/21 09:37 05/19/21 00:25 05/23/21 09:37 Body Mass Index (BMI) 33.7 Physical Exam Narrative Const alert and no apparent distress General Appearance: cooperative and comfortable Extremity no calf tenderness, negative milo and draper sign lower extremity edema left worse than right General Extremity: Negative for clubbing or cyanosis or ecchymosis or erythema Vasc Peripheral Pulses: posterior tibial pulses present but diminished and dorsalis pedis pulses present but diminished, normal capillary refill, no acute ischemic skin changes noted, normal temperature Skin General Skin Exam: dry skin, decreased hair growth noted; Negative for ecchymosis, eschar, pallor, rashes. Toenails are elongated, thick, dystrophic and with subungual debris x10. Wound Narrative: ulcer noted to plantar left heel Devitalized/non-healthy in appearance today. After debridement improvement in granulation tissue noted no malodor. No purulence, probing to bone, streaking, fluctuation, crepitus. Skin is its normal color. no periwound maceration noted. Skin is atrophic and hairless. Granular and fat base. Minimal serosanguinous drainage. buildup of callus noted periwound as well as to posterior medial and lateral heel in general. Pain to palpation ulcer decreased Neuro Gait (Neuro): heel to toe Sensory Exam: extremities light-touch: decreased Debridement Note Debridement Note Wound debrided: Left heel Wound Grade/Stage: 1 Type of Debridement: Excisional debridement Anesthesia Used: 4% Lidocaine Solution Depth: in the subcutaneous layer Percentage of wound debrided: 100 Instrument Used: #15 blade Tissue Removed: fibrous, devitalized subcutaneous, biofilm, slough Severity: Fat Layer Exposed Amount of bleeding with debridement: Mild Bleeding Controlled with: Pressure Patient tolerated procedure: Patient tolerated procedure well Post-Debridement Measurements and Additional Note: Post-Debridement Measurements/Treatment - Nurse 1 - General Ulcer Assessment Start: 05/23/21 09:37 Freq: Status: Active Protocol: .LOWEXT Activity Type Activity Date Activity User E-Sign Co-Sign Detail Recorded Client Recorded Date Recorded By Document 05/23/21 09:37 DAVID [id number] 05/23/21 09:40 DAVID 05/23/21 09:37 - Today's Visit Information Type of service Follow-up Visit (Physician/DESCRIPTIVE CATALOG LIBRARIAN ) Arrival Mode Ambulatory, Walker Patient Identification Verified (Name & Yes ) Patient Requires Transmission-Based No Precautions Safety Precautions NA Height and Weight Body Mass Index (BMI) 33.7 BMI Classification Obese Vital Signs Temperature (97.8 F-99.1 F) 97.4 F L Temperature Source Temporal Pulse Rate (60-100) 62 Pulse Location Monitor Blood Pressure (90/60-120/80) 148/69 H Blood Pressure Mean (mm Hg) 95 History Since Last Visit- (Skip if this is Patient's initial visit) Have you changed medications since your No last visit? Any new allergies or adverse reactions No Had a fall/change in ADL's that may No increase risk of falls Signs or symptoms of abuse and/or No neglect since last visit Have you been in the hospital since your No last visit? Has dressing in place as prescribed Yes Has compression in place as prescribed Yes Has offloadiing in place as prescribed N/A Left Footwear Regular Shoe Right Footwear Surgical Shoe with pressure relief insole WC - Nurse 1 - General Ulcer Measurement Start: 05/23/21 09:37 Freq: Status: Active Protocol: Activity Type Activity Date Activity User E-Sign Co-Sign Detail Recorded Client Recorded Date Recorded By Document 05/23/21 09:37 DAVID [id number] 05/23/21 09:40 DAVID 05/23/21 09:37 Wound Center Nurse 1 #1 left heel CLUSTER -Combined with other wound No -Current Size (cm) - Length 2 -Current Size (cm) - Width 2 -Current Size (cm) - Depth 0.4 -Total Square Cm 4 -Photo Taken No -Epithelialization Small 1-33% -Tunneling No -Undermining/Tunneling No -Circular Undermining No -Exudate Amt Large -Exudate Type Serosanguineous -Wound Margin Thickened & Rolled Under -Granulation Amt None Present (0 %) -Granulation Quality N/A -Slough/Fibrin No -Necrosis Amt Medium (34-66%) -Necrotic Tissue Type Adherent Slough -Structure Exposed N/A -Texture (Margaret-wound Skin Appearance) Assessed,Callus -Moisture (Margaret-wound Skin Appearance) Assessed,Dry/ Scaly -Color (Margaret-wound Skin Appearance) No Abnormality, Assessed -Temperature (Margaret-wound Skin No Abnormality Appearance) (Pt Warm) -Tenderness on Palpation (Margaret-wound Yes Skin Appearance) -Ulcer Cleansing Rinsed/ Irrigated with Saline -Foul Odor after Cleansing No -Anesthetic Used 4% Lidocaine Solution Right Calf (cm) 42 Right Ankle (cm) 25 Left Calf (cm) 42.5 Left Ankle (cm) 23 WC - Nurse 2 - General Ulcer CM Notes Start: 05/23/21 09:37 Freq: Status: Active Protocol: Activity Type Activity Date Activity User E-Sign Co-Sign Detail Recorded Client Recorded Date Recorded By Document 05/23/21 09:48 [id number] 05/23/21 09:56 05/23/21 09:48 Wound Center Nurse 2 #1 left heel CLUSTER -Time 09:48 -Correct Patient Yes -Correct Side, Site, Position Yes -Correct Procedure Yes -Procedure Performed Yes -Type of Procedure Debridement -Clinical Debridement Subcutaneous -Tissue Removed Subcutaneous -Post Debridement (cm) - Length 2.0 -Post Debridement (cm) - Width 2.5 -Post Debridement (cm) - Depth 0.5 -Total Square (Post) (cm) 5.00 -Area of Debridement (cm) - Length 2.0 -Area of Debridement (cm) - Width 2.5 -Total Square (Area) (cm) 5.00 -Tunneling No -Undermining/Tunneling No -Circular Undermining No -Wound/Ulcer Outcome Not Healed -Ulcer Cleansing Rinsed/ Irrigated with Saline -Foul Odor after Cleansing No -Bioengineered Tissue No -Bleeding Controlled with Pressure -Offloading Yes -Type of Offloading Camwalker -Treatment Response Procedure Tolerated Well -Debridement - Subq, 1st 20sq cm Yes Pain Scale: 0-10 Numeric Is Patient Pain Free? Yes - Nurse 3 - General Ulcer D/C NN Start: 05/23/21 09:37 Freq: Status: Active Protocol: Activity Type Activity Date Activity User E-Sign Co-Sign Detail Recorded Client Recorded Date Recorded By Document 05/23/21 10:05 ALEJANDRO [id number] 05/23/21 10:07 ALEJANDRO 05/23/21 10:05 Wound Care Nurse 3 #1 left heel CLUSTER -Ulcer Cleansing Wound Cleanser -Other Dressing iodosorb ointment -Primary Dressing Covered/Secured with Dry Gauze,Dry Gauze & Roll Gauze,Secured with Tape -Other Covering nurses hat/ kerlix , single tubigrip , aayush Right -Tubular Bandage Single Layer -Size of Tubigrip Used Size E -Size E ($) 1 Left -Tubular Bandage Single Layer -Size of Tubigrip Used Size E -Size E ($) 1 Treatment Response Procedure Tolerated Well Pain Scale: 0-10 Numeric Is Patient Pain Free? Yes WC - Visit Discharge Discharge Condition Stable Ambulatory Status Walker Transportation Private Auto Medication Reconcilliation completed & No provided to patient/care provider Clinical Summary of Care Provided Yes Assessment/Plan Assessment/Plan (1) Type 2 diabetes mellitus with diabetic polyneuropathy: CODE(S): E11.42 - Type 2 diabetes mellitus with diabetic polyneuropathy QUALIFIERS: Diabetes mellitus termite treater insulin use: with residential use Qualified Code(s): E11.42 - Type 2 diabetes mellitus with diabetic polyneuropathy; Z79.4 - emt intermediate (current) use of insulin (2) Delayed wound healing: CODE(S): T14.8XXD - Other injury of unspecified body region, subsequent encounter (3) Bilateral edema of lower extremity: CODE(S): R60.0 - Localized edema (4) Cellulitis of left foot: CODE(S): L03.116 - Cellulitis of left lower limb (5) Left foot pain: CODE(S): M79.672 - Pain in left foot (6) Tobacco abuse: CODE(S): Z72.0 - Tobacco use (7) Obesity: CODE(S): E66.9 - Obesity, unspecified QUALIFIERS: Body mass index: BMI 33.0-33.9 Obesity classification: adult class 1 (BMI 30 - 34.9) Obesity type: due to excess calories Serious obesity comorbidity presence: with serious comorbidity Qualified Code(s): E66.09 - Other obesity due to excess calories; Z68.33 - Body mass index [BMI] 33.0-33.9, adult (8) Ulcer of left foot with fat layer exposed: CODE(S): L97.522 - Non-pressure chronic ulcer of other part of left foot with fat layer exposed (9) Difficulty in walking: CODE(S): R26.2 - Difficulty in walking, not elsewhere classified (10) Other hereditary and idiopathic neuropathies: CODE(S): G60.8 - Other hereditary and idiopathic neuropathies (11) Tinea unguium: CODE(S): B35.1 - Tinea unguium PLAN: Patient seen and examined. I reviewed and discussed his case. Debridement was performed as noted in the clinical nursing panel. Dressing recommendation: To change dressing daily with iodosorb daily. Wash: Antibacterial soap and water. Avoid soaking. Patient wound is noted to have improved with healthier appearance and there is no malodor. There are no local signs infection noted today. Prior culture of wound was obtained 02/27/21 which was positive for MRSA, proteus, enterococcus, anaerobic cocci, Bacteroides. Completed a full course of Augmentin and Bactrim. He is stable at this time. Offloading: To continue offloading with cam walker boot. To use assistive device to maintain nonweightbearing status. Compliance was reiterated and it does not appear he has been able to successfully stay off of the ulcer. I recommend a total contact cast application he is not amenable today. He will c onsider this for follow-up. He actually refuses to offload recently and I do not anticipate ulcer healing if this continues. Patient relates he had follow-up appointment with his primary care provider, Priyanka Brown, and relates that she did not change any medication and stated he was doing okay. PCP is leaving the diabetes management up to his lye peel operator, Dr. Mykel Barraza. He was able to follow-up and recommendations were updated. I previously recommended updating his labs including CBC, CMP, ESR, hemoglobin A1c. I also recommend updating his foot x-rays. Orders were provided previously. His white blood cell count was 8.6, ESR 34. His last A1c on file was 10.3% in . His foot x-rays were reviewed previously, and these do not demonstrate any acute osseous destruction, fracture, dislocation, soft tissue emphysema or foreign body. His skin discontinuity consistent with his ulcer site is seen. Discussed importance of cleaning and maintaining foot both to prevent infection as well as to prevent future wounds. Discussed he is at higher risk for wounds due to his diabetes, neuropathy, hyperglycemia, obesity, swelling, and tobacco abuse. Discussed that he needs to cut back on his smoking, preferably quit, and better controlling his blood sugar to better optimize his healing. Patient has not improved his tobacco abuse or his hyperglycemia. Reviewed how pressure will impact the wound. Arterial studies were reviewed. Showing likely adequate perfusion for healing. Right LAI is 0.99 and left 1.18. Right toe brachial index 0.76 and left 0.71. Referral to Dr. Campos for potential venous and arterial intervention was provided today. He went for consultationon 04-11-21. Will recheck duplex to make sure normal posterior tibial flow into the area of the wound. normal prior LAI noted. Patient relates he has been smoking since he was 10 years old. Discussed impact smoking has on his vessels as well as impact on wound healing. Patient relates that he is unwilling to quit entirely but he will try to cut back. He does not want any medical assistance at this process. Edema management: tubigrip and aayush wrap. to elevate. Host factors: His multiple comorbidities are noted including diabetes and smoking history. Also recommend improvement in nutritional status which involves taking in adequate protein and also focusing on eating 5-10 whole foods daily. All questions answered. Patient to follow up in 1 week or call sooner if status worsening or if questions. I answered all of his questions. This note was generated with [employer] dictation software. It may contain incorrect words, spelling, and punctuation that were not noted in checking the note before signing.
== END 2021-06-18 23:59 ==
LOC: WC 09:15
PROVIDERS: Referring Provider Podiatrist Foot & Ankle Surgery; Visit Provider Podiatrist
DX: E11.621 Type 2 diabetes mellitus with foot ulcer (principal); L97.422 Non-pressure chronic ulcer of left heel and midfoot with fat layer exposed; J44.9 Chronic obstructive pulmonary disease, unspecified; I50.9 Heart failure, unspecified; E11.42 Type 2 diabetes mellitus with diabetic polyneuropathy; Z79.4 Long term (current) use of insulin; L03.116 Cellulitis of left lower limb; B35.1 Tinea unguium; G47.33 Obstructive sleep apnea (adult) (pediatric); E66.09 Other obesity due to excess calories; G60.8 Other hereditary and idiopathic neuropathies; R26.2 Difficulty in walking, not elsewhere classified; F17.200 Nicotine dependence, unspecified, uncomplicated; Z68.33 Body mass index [BMI] 33.0-33.9, adult
CPT/HCPCS: 11042

== ENCOUNTER 2021-05-28 14:33 | Inpatient (IN) | payer MEDICARE, BC, SELFPAY ==
[2021-05-28] VITALS (12 sets, daily range): BP systolic 82–162; BP diastolic 38–88; PULSE 70–91; RESP 18–24; TEMP 36.5–39.1; O2SAT 82–95; BMI 34.9; BMI 35.3
--- NOTE | 2021-05-28 15:04 | EDS_ITS ---
HPI History of Present Illness Chief Complaint: Wound Narrative Narrative: Patient presents with diabetic foot ulcer of his left heel. He has had increased pain and swelling along with redness. He states the wound originally started in June of last year, 12 months ago. He has been being seen at the wound care center. He was last seen on Friday but states that it was not infected at that time. He had debridement performed of his left heel. A few days ago he started noting increased pain radiating up his leg and more purulent drainage. He denies any fevers or chills. No cough, no other symptoms. He states that he has never been hospitalized in the last year for his diabetic foot ulcer of his left heel. PFSH PFSH Home Medications ascorbic acid (vitamin C) 1,000 mg PO TID 07/11/20 [History Last Taken 05/27/21] aspirin 81 mg PO DAILY@0800 07/11/20 [History Last Taken 05/27/21] atorvastatin 80 mg PO QHS 07/11/20 [History Last Taken 05/27/21] glipizide 10 mg PO DAILY 07/11/20 [History Last Taken 05/27/21] insulin glargine 35 unit SQ BREAKFAST 07/11/20 [History Last Taken 05/27/21] insulin glargine 40 unit SQ QHS 07/11/20 [History Last Taken 05/27/21] insulin lispro See Protocol SQ DAILY 07/11/20 [History Last Taken 05/27/21] magnesium oxide 500 mg PO DAILY 07/11/20 [History Last Taken 05/27/21] oxycodone-acetaminophen 1 tab PO TID 07/11/20 [History Last Taken 05/27/21] carvedilol 12.5 mg PO DAILY 08/17/20 [History Last Taken 05/27/21] cholecalciferol (vitamin D3) 125 mcg PO DAILY 05/28/21 [History Last Taken 05/27/21] Allergy/AdvReac Type Severity Reaction Status Date / Time codeine AdvReac Nausea Verified 05/28/21 14:35 promethazine [From Phenergan] AdvReac Nausea Verified 05/28/21 14:35 Family History Father CVA (cerebral vascular accident) Myocardial infarction Surgical History Previous back surgery Social History Smoking Status: Former smoker quit date: 05/19/15 Tobacco: How many years used: 50 ROS ROS ED ROS Narrative Constitutional: No fever, no chills. HEENT: No sore throat. No neck pain. No loss of vision. No rhinorrhea. Cardiovascular: No chest pain. No palpitations. No pedal edema. Respiratory: No cough, no shortness of breath. Abdominal: No abdominal pain. No nausea. No vomiting. Genitourinary: No dysuria. No hematuria. Musculoskeletal: Left lower extremity heel pain, swelling and redness, radiating up left leg Neurologic: No headaches. No dizziness. No lightheadedness. Skin: No rash. No change in color. Psychiatric: No depression. No anxiety. EXAM Physical Exam Narrative Exam Narrative: Afebrile. Vital signs noted. HEENT: Normocephalic. Atraumatic. PERRL, EOMI. Neck soft and supple. No point tenderness or step off. Cardiovascular: Regular rate and rhythm. No murmurs, rubs, or gallops appreciated. Respiratory: No tachypnea. Lungs clear to auscultation bilaterally. Gastrointestinal: Abdomen soft, nontender, with normoactive bowel sounds. No rebound or guarding. Neurological: Awake. Alert. Nonfocal, nonlateralizing. Skin: No rash. Normal color. No pallor. Musculoskeletal: Left lower extremity pedal edema. Full range of motion extremities. Positive erythema, diabetic foot ulcer left heel, large, with fat layer exposure. Positive dry skin. Const Vital Signs: 05/28/21 14:33 05/28/21 15:55 05/28/21 15:56 Temperature 98.4 F 98.4 F Temperature Source Temporal Temporal Pulse Rate 91 84 84 Respiratory Rate 22 H 24 H 24 H Blood Pressure 162/52 H 159/88 H 159/88 H Blood Pressure Mean 88 111 111 Pulse Ox 93 87 95 Oxygen Delivery Method Room Air Room Air Oxygen Flow Rate (L/min) 2 2 05/28/21 16:40 05/28/21 16:55 05/28/21 17:00 Temperature 98.1 F 98.1 F 98 F Temperature Source Oral Temporal Temporal Pulse Rate 82 Respiratory Rate 24 H Blood Pressure 152/77 H Blood Pressure Mean 102 Pulse Ox 95 Oxygen Delivery Method Nasal Cannula Oxygen Flow Rate (L/min) 2 05/28/21 18:00 Temperature 100.9 F H Temperature Source Oral Pulse Rate 82 Respiratory Rate 22 H Blood Pressure 150/74 H Blood Pressure Mean 99 Pulse Ox 93 Oxygen Delivery Method Nasal Cannula Oxygen Flow Rate (L/min) 2 MDM MDM MDM Narrative Medical decision making narrative: Comprehensive work-up was pursued. Patient has elevated white count of 20.4, hemoglobin stable at 14.4. Sodium is slightly low at 130 with a potassium of 5.3. Creatinine is elevated at 3.37. Lactic acid is normal at 1.7. Urinalysis shows no evidence of infection. Venous Doppler shows no evidence of DVT. His left foot x-ray does not show any evidence of bony destruction, there is air in the medial to posterior foot associated with diabetic foot ulcer/infection. I do not think that this is necr otizing fasciitis. There is no crepitance. He was started on vancomycin and Zosyn for antibiotics. Blood cultures are currently pending. He was given morphine for analgesia. Initially I discussed the patient with Dr. Carlson, who has deferred to podiatry. I then discussed the patient with Dr. Gonzalez who will admit the patient. Patient will be admitted in stable condition. Lab Data Attestation: I reviewed the patient's lab results. Labs: Laboratory Results - last 24 hr 05/28/21 05/28/21 05/28/21 15:33 16:29 16:29 WBC 20.4 H RBC 5.21 Hgb 14.4 Hct 45.5 MCV 87.3 MCH 27.6 MCHC 31.6 L RDW Std Deviation 46.5 H RDW Coeff of Darrell 14.4 Plt Count 189 MPV 10.7 Immature Gran % (Auto) 0.800 Neut % (Auto) 87.1 H Lymph % (Auto) 4.7 L Garrard % (Auto) 7.2 Eos % (Auto) 0.0 Baso % (Auto) 0.2 Absolute Neuts (auto) 17.7 H Absolute Lymphs (auto) 0.96 Nucleated RBC % 0 Sodium 130 L Potassium 5.3 H Chloride 94 L Carbon Dioxide 28.0 Anion Gap 8 BUN 61 H Creatinine 3.37 H Estim Creat Clear Calc 25.42 Est GFR (MDRD) Af Amer 24 L Est GFR (MDRD) Non-Af 20 L BUN/Creatinine Ratio 18.1 Glucose 331 H Lactic Acid Calcium 9.0 Total Bilirubin 1.70 H AST 52 H ALT 43 Alkaline Phosphatase 120 H Total Protein 7.1 Albumin 2.2 L Globulin 4.9 H Albumin/Globulin Ratio 0.4 L Urine Color Yellow Urine Clarity Clear Urine pH 5.0 Ur Specific Hilbert 1.020 Urine Protein 100 H Urine Glucose (UA) 50 H Urine Ketones Negative Urine Occult Blood 150 H Urine Nitrite Negative Urine Bilirubin Negative Urine Urobilinogen Normal Ur Leukocyte Esterase 25 H Urine RBC 0-5 SEEN Urine WBC 0 SEEN Ur Squamous Epith Cells 0 SEEN Amorphous Sediment 1+ Urine Bacteria 0 SEEN Urine Mucus 0 SEEN 05/28/21 16:29 WBC RBC Hgb Hct MCV MCH MCHC RDW Std Deviation RDW Coeff of Darrell Plt Count MPV Immature Gran % (Auto) Neut % (Auto) Lymph % (Auto) Garrard % (Auto) Eos % (Auto) Baso % (Auto) Absolute Neuts (auto) Absolute Lymphs (auto) Nucleated RBC % Sodium Potassium Chloride Carbon Dioxide Anion Gap BUN Creatinine Estim Creat Clear Calc Est GFR (MDRD) Af Amer Est GFR (MDRD) Non-Af BUN/Creatinine Ratio Glucose Lactic Acid 1.7 Calcium Total Bilirubin AST ALT Alkaline Phosphatase Total Protein Albumin Globulin Albumin/Globulin Ratio Urine Color Urine Clarity Urine pH Ur Specific Hilbert Urine Protein Urine Glucose (UA) Urine Ketones Urine Occult Blood Urine Nitrite Urine Bilirubin Urine Urobilinogen Ur Leukocyte Esterase Urine RBC Urine WBC Ur Squamous Epith Cells Amorphous Sediment Urine Bacteria Urine Mucus Radiography Diagnostic Testing: Clinical Impression(s) from Imaging Studies Venous Doppler Study 05/28/21 15:09 Interpretation Summary There is no evidence of left lower extremity deep vein thrombosis. Left great saphenous vein appears patent and compressible segmentally. Ordering Physician: Avtar Cueto Performed By: Liana Patino RVT Foot X-Ray 05/28/21 15:30 IMPRESSION: 1. No destructive bony process. 2. Medial and posterior foot soft tissue swelling with air likely correlating to infection/ulcer. Electronically Signed: Christophe John MD ([place]) at 16:51 EST , Service support , Discharge Plan Dx/Rx/DC Orders Clinical Impression: Diabetic foot ulcer, Cellulitis of left leg Disposition Disposition: Acute Care Hospital [facility]
--- NOTE | 2021-05-28 15:09 | VDLE_ITS ---
Reason For Study: Pain Procedure LEFT This is a venous duplex using B-mode, color GSV is normal. flow and spectral Doppler. CFV is compressible, spontaneous, phasic, Exam performed portable in ED. competent, and demonstrates normal A preliminary report was called and/or faxed augmentation. to [facility]. FV is compressible, spontaneous, phasic, competent and demonstrates normal augmentation. POP V is compressible, spontaneous, phasic, competent and demonstrates normal augmentation. T/P Trunk is compressible. PTV is compressible. LT PerV is compressible. VL/Venous Duplex US, Unilateral Interpretation Summary There is no evidence of left lower extremity deep vein thrombosis. Left great s aphenous vein appears patent and compressible segmentally. Ordering Physician: Avtar Cueto Performed By: Liana Patino RVT
--- NOTE | 2021-05-28 15:30 | RAD_ITS ---
STUDY: X-RAY - LEFT FOOT CLINICAL: Male, 65 years old. pain, left heel wound TECHNIQUE: 3 view(s) of the foot. COMPARISON: None. FINDINGS: Normal talus, calcaneus, and tarsal bones. Normal visualized subtalar, talonavicular, calcaneocuboid, tarsal and tarsometatarsal articulations. Normal metatarsi. Normal metatarsophalangeal joint of the great toe. Normal tibial and fibular sesamoid bones. Normal interphalangeal joint of the great toe. Normal phalanges of the great toe. Normal second through fifth metatarsophalangeal joints. Normal interphalangeal joints and phalanges of the lesser toes. Soft tissue swelling of the medial and plantar foot posteriorly with focal subcutaneous air. RAD/Foot min 3 Views IMPRESSION: 1. No destructive bony process. 2. Medial and posterior foot soft tissue swelling with air likely correlating to infection/ulcer. Electronically Signed: Christophe John MD ([place]) at 16:51 EST , Service support ,
[2021-05-28 15:42] LABS: Bacteria 0 SEEN /hpf (None Seen); Mucous, Urine 0 SEEN /hpf (<or=2+); Squamous Epithelial Cells - UA 0 SEEN /hpf (0-5); White Blood Cells 0 SEEN /hpf (0-5)
[2021-05-28 15:52] LABS: Color, Urine Yellow (Yellow); Glucose, Dipstick 50 mg/dl (Normal); Ketone-Dipstick Negative (Negative); Leukocyte Esterase-Dipstick 25 /ul (Negative); Nitrite-Dipstick Negative (Negative); Occult Blood-Urine 150 /ul (Negative); Protein-Dipstick 100 mg/dl (Negative); Urine Bilirubin Dipstick Negative (Negative); Urine Clarity Clear (Clear); Urine Urobilinogen Normal (Normal)
[2021-05-28 16:07] LABS: Amorphous Sediment 1+; Red Blood Cells-Urine 0-5 SEEN /hpf (0-5)
[2021-05-28 17:00] LABS: Absolute Lymphocyte Count 0.96 X10^3/uL (0.83-4.51); Absolute Neutrophil Count 17.7 X10^3/uL (2.0-7.7); Basophil# 0.05 X10^3/uL; Basophil% 0.2 % (0-1); Eosinophil# 0.01 X10^3/uL; Hematocrit 45.5 % (40-54); Hemoglobin 14.4 g/dL (13.0-16.5); Lymphocyte # 0.96 X10^3/ul (0.83-4.51); Lymphocyte % 4.7 % (19-41); Mean Corp Hgb Conc 31.6 g/dL (32-36); Mean Corpuscular Hgb 27.6 pg (27.0-32.0); Mean Corpuscular Volume 87.3 fL (80-94); Mean Platelet Vol. 10.7 fl (6.2-12.0); Monocyte# 1.46 X10^3/uL; Monocyte% 7.2 % (0-10); NRBC Flagged by Analyzer 0 % (0-5); Neutrophil # 17.72 X10^3/uL (2.7-7.7); Neutrophil % 87.1 % (47-70); Platelet Count 189 K/mm3 (150-450); RBC Distribution Width CV 14.4 % (11.6-14.6); RBC Distribution Width SD 46.5 fl (35.1-43.9); Red Blood Count 5.21 M/mm3 (4.6-6.2); White Blood Count 20.4 K/mm3 (4.4-11.0)
[2021-05-28 17:10] LABS: ALB/GLOB Ratio 0.4 RATIO (0.9-2.4); AST(SGOT) 52 U/L (15-37); Alanine Aminotransfer ALT/SGPT 43 U/L (16-61); Albumin, Serum 2.2 g/dL (3.2-5.0); Alkaline Phosphatase 120 U/L (45-117); Anion Gap 8 (5-15); BUN 61 mg/dL (7-18); BUN/Creat Ratio 18.1 RATIO (10-20); Chloride 94 mmol/L (98-107); Creatinine, Serum 3.37 mg/dL (0.70-1.30); EST Glomerular Filtration Rate 20 mL/min (>60); Est Glom Filt Rate - Afr Amer 24 mL/min (>60); Estimated Creatinine Clearance 25.42 ml/min; Globulin 4.9 g/dL (2.2-4.2); Glucose 331 mg/dL (74-106); Potassium 5.3 mmol/L (3.5-5.1); Protein, Total 7.1 g/dL (6.4-8.2); Sodium Level 130 mmol/L (136-145)
[2021-05-28 17:17] LABS: Lactic Acid 1.7 mmol/L (0.4-1.9)
[2021-05-28] MEDS: Morphine 4 MG/ML Syringe IV (17:59)
--- NOTE | 2021-05-28 18:14 | ED.RN ---
DR CAMPOS AWARE THAT PT TRIGGERS SEPSIS ALERT
--- NOTE | 2021-05-28 18:44 | PCM.CONS.GEN ---
Assessment & Plan Assessment/Plan (1) Diabetic foot ulcer: PLAN: The patient is a 65 y/o M w/ PMHx: CKD stage III unclear subtype, COPD, Obesity, CAMACHO, Former Tobacco use, Diabetes mellitus type II with chronic neuropathy who presents to the [facility] ED on 05/28/21 from the [facility] where he follows with Podiatry Dr. Chapman for chronic left heel ulcer with most recent debridement the Friday prior however since then patient has had increased fatigue, malaise, onset fevers and purulent discharge from the left heel as well as worsened discomfort to the foot and leg described as severe, sharp, radiating up his leg, rated 6-7 out of 10 in severity with referral to the ED for evaluation. #1. Acute Left Heel Infected Diabetic Foot Ulcer/Wound: Patient being admitted to [place] per Podiatry, maintain on IV vanc and zosyn, will obtain Wound Cx, will obtain Wound MRSA PCR, plan repeat CBC in AM, continue affected extremity elevation above heart when seated and in bed, monitor erythema outline with VS checks. #2. Acute hyponatremia, mild: Admission sodium 130, chloride 94, evidence of dehydration, hypovolemic likely secondary to acute presentation as noted, will judiciously hydrate, repeat BMP this evening given potassium level and in AM. #3. Acute renal insufficiency on Chronic Kidney Disease Stage III, unclear subtype: Admission BUN/Cr 61/3.37, baseline renal function most recently 2.93 on 03/14/2021 with baseline appearing prior to this 2.2-2.6, repeat BMP in AM. #4. Hyperkalemia, mild: Admission potassium 5.3, only mildly elevated, will judiciously hydrate and repeat level this evening as well as in AM. #5. Diabetes mellitus type II with polyneuropathy with hyperglycemia: Hold oral home regimen, continue home insulin regimen, ADA diet until n.p.o. status, may decrease insulin to one half dose while n.p.o. status, hemoglobin A1c requested, nutrition consultation for education and teaching, accu checks w/ ISS. #6. Elevated bilirubin, LFTs: Admission total bilirubin 1.70, AST/ALT 52/43, only mildly elevated, unclear specific allergy but possibly associated with acute presentation as noted #1, #2, will continue treatments as noted and repeat CMP in a.m. #7. Chronic COPD with mild Hypoxia: Will maintain on oxygen with wean as tolerated to room air, given hypoxia possibly related with pain meds however will obtain chest x-ray to be cautious, not on any routine inhalers but mild expiratory wheezing noticed therefore will place on continuous ATC duonebs, PRN albuterol, HOB, IS parameters. #8. Hypertension: Continue home regimen including Coreg with hold parameters as needed, PRN hydralazine. #9. Hyperlipidemia: We will continue statin therapy however if LFTs increase further or new concerns may hold. #10. Former tobacco use: Encourage continued tobacco cessation. #11. CAMACHO: We will continue BiPAP nightly. #12. Obesity: Weight loss and lifestyle changes encouraged. #13. DVT prophylaxis: SCDs, hold chemoprophylaxis for planned OR. #14. CODE status: Patient THEE is his daughter Shyann and living will is currently in place. Discussed CODE status at length including difference between FULL code, DNR-CCA and DNR-CC status. Following discussions about the differences in these status, requested Full Code. Advanced Care Planning Face to Face Time: 16 minutes. HPI Consult Data Date of Consult: 05/28/21 HPI Narrative Reason for Consultation: Medical consultation. HPI Narrative: The patient is a 65 y/o M w/ PMHx: CKD stage III unclear subtype, COPD, Obesity, CAMACHO, Former Tobacco use, Diabetes mellitus type II with chronic neuropathy who presents to the [facility] ED on 05/28/21 from the [facility] center where he follows with Podiatry Dr. Chapman for chronic left heel ulcer with most recent debridement the Friday prior however since then patient has had increased fatigue, malaise, onset fevers and purulent discharge from the left heel as well as worsened discomfort to the foot and leg described as severe, sharp, radiating up his leg, rated 6-7 out of 10 in severity with referral to the ED for evaluation. Patient in the ED does have mild hypoxia with oxygenation 93% but denies any recent congestion, sore throat, increased cough, increased dyspnea or any other COVID type symptoms. Work-up in the ED included T1 100.9, heart rate 82, BP 150/74, respiratory rate 22-24, initially 87% on room air with improvement to 95% on 2 L nasal cannula, duplex ultrasound left lower extremity with no evidence of DVT, left lower extremity plain foot with no evidence of any bony destruction with air medial to posterior foot associated with likely the diabetic foot ulcer, blood culture x2 pending per ED, CBC with WC 20.4, hemoglobin 14.4, platelet 189 with left shift. In the ED patient administered IV vanc and zosyn. ED discussed case with Podiatry who has been following patient who will admit with requested medical consultation. [facility] Medical History (Updated 05/28/21 @ 19:[address] Tiffanie Carlson MD) CKD (chronic kidney disease), stage III COPD (chronic obstructive pulmonary disease) Former tobacco use History of kidney cancer Obesity CAMACHO (obstructive sleep apnea) 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 Home Medications ascorbic acid (vitamin C) 1,000 mg PO TID 07/11/20 [History Last Taken 05/27/21] aspirin 81 mg PO DAILY@0800 07/11/20 [History Last Taken 05/27/21] atorvastatin 80 mg PO QHS 07/11/20 [History Last Taken 05/27/21] glipizide 10 mg PO DAILY 07/11/20 [History Last Taken 05/27/21] insulin glargine 35 unit SQ BREAKFAST 07/11/20 [History Last Taken 05/27/21] insulin glargine 40 unit SQ QHS 07/11/20 [History Last Taken 05/27/21] insulin lispro See Protocol SQ DAILY 07/11/20 [History Last Taken 05/27/21] magnesium oxide 500 mg PO DAILY 07/11/20 [History Last Taken 05/27/21] oxycodone-acetaminophen 1 tab PO TID 07/11/20 [History Last Taken 05/27/21] carvedilol 12.5 mg PO DAILY 08/17/20 [History Last Taken 05/27/21] cholecalciferol (vitamin D3) 125 mcg PO DAILY 05/28/21 [History Last Taken 05/27/21] Allergy/AdvReac Type Severity Reaction Status Date / Time codeine AdvReac Nausea Verified 05/28/21 14:35 promethazine [From Phenergan] AdvReac Nausea Verified 05/28/21 14:35 Family History (Updated 05/28/21 @ 18:[address] Tiffanie Carlson MD) Father CVA (cerebral vascular accident) Myocardial infarction Mother Dementia Surgical History (Updated 05/28/21 @ 18:[address] Tiffanie Carlson MD) History of surgery on arm Hx of partial nephrectomy Previous back surgery S/P appendectomy Social History (Updated 05/28/21 @ 19:[address] Tiffanie Carlson MD) household members: none Smoking Status: Former smoker quit date: 05/19/15 Tobacco: How many years used: 50 how long ago did patient quit smoking: Smoked ~1/2 ppd x 50 years until quit. alcohol intake: never substance use type: does not use ROS ROS Narrative Admission Review of Systems: CONSTITUTIONAL: No weight loss, + fever, weakness or fatigue. HEENT: Eyes: No visual loss, blurred vision, double vision or yellow sclerae. Ears, Nose, Throat: No hearing loss, sneezing, congestion, runny nose or sore throat. SKIN: + L diabetic foot ulcer, drainage. CARDIOVASCULAR: No chest pain, chest pressure or chest discomfort, palpitations, edema, orthopnea, syncopal events. RESPIRATORY: No shortness of breath, cough or sputum, wheezing, hemoptysis. GASTROINTESTINAL: No anorexia, nausea, vomiting or diarrhea, abdominal pain, melena, BRBPR. GENITOURINARY: No dysuria, frequency, urgency or retention. NEUROLOGICAL: No headache, dizziness, syncope, paralysis, ataxia, numbness or tingling in the extremities, focal weakness, change in bowel or bladder control, seizure. MUSCULOSKELETAL: + muscle, back pain, joint pain or stiffness. HEMATOLOGIC: No anemia, bleeding or bruising. LYMPHATICS: No enlarged nodes. No history of splenectomy. PSYCHIATRIC: No history of depression or anxiety. ENDOCRINOLOGIC: + reports of sweating, cold or heat intolerance. No polyuria or polydipsia. ALLERGIES: No history of asthma, hives, eczema or rhinitis. Physical Exam Narrative Physical Examination: General: Awake, alert, oriented x 3 and cooperative, seated right in ED bed, fatigued and ill-appearing. Skin: Normal color, normal turgor, no icterus, no cyanosis except notable left lower extremity diabetic heel foot ulcer with eschar, some mild purulent material, periwound erythema as well as bilateral lower extremity venous stasis skin changes. HEENT: AT/NC, EOMI, PERRLA, dry MM, no carotid bruits or JVD noted. Lungs: Diminished, mildly increased respiratory rate, occasional end expiratory wheeze, noted mild hypoxia with oxygenation 93% on evaluation, no rales or rhonchi. Heart: Regular rate and rhythm; no gallop, rub audible. Abdomen: Soft, obese, NTTP, ND, mildly distant hypoactive BS, no obvious evidence of HSM. Extremities: No cyanosis, no clubbing, bilateral lower extremity pedal to proximal dempsey not markedly pitting edema. Neurological: Patient awake, alert, oriented x 3, cognitive function intact; pupils equally reactive to light and accommodation, cranial nerves II-XII grossly normal, moving all 4 extremities, no focal deficits, strength moderately global decrease secondary to acute presentation. Psychiatric: Affect appears fatigued, ill-appearing, no acute evidence of depressive or anxiety feelings. Lab / Micro Data Result Diagrams: 05/28/21 16:29 05/28/21 16:29 Labs: Laboratory Results - last 24 hr 05/28/21 15:33: Urine Color Yellow, Urine Clarity Clear, Urine pH 5.0, Ur Specific [place] 1.020, Urine Protein 100 H, Urine Glucose (UA) 50 H, Urine Ketones Negative, Urine Occult Blood 150 H, Urine Nitrite Negative, Urine Bilirubin Negative, Urine Urobilinogen Normal, Ur Leukocyte Esterase 25 H, Urine RBC 0-5 SEEN, Urine WBC 0 SEEN, Ur Squamous Epith Cells 0 SEEN, Amorphous Sediment 1+, Urine Bacteria 0 SEEN, Urine Mucus 0 SEEN 05/28/21 16:29: WBC 20.4 H, RBC 5.21, Hgb 14.4, Hct 45.5, MCV 87.3, MCH 27.6, MCHC 31.6 L, RDW Std Deviation 46.5 H, RDW Coeff of Darrell 14.4, Plt Count 189, MPV 10.7, Immature Gran % (Auto) 0.800, Neut % (Auto) 87.1 H, Lymph % (Auto) 4.7 L, Greene % (Auto) 7.2, Eos % (Auto) 0.0, Baso % (Auto) 0.2, Absolute Neuts (auto) 17.7 H, Absolute Lymphs (auto) 0.96, Nucleated RBC % 0 05/28/21 16:29: Sodium 130 L, Potassium 5.3 H, Chloride 94 L, Carbon Dioxide 28.0, Anion Gap 8, BUN 61 H, Creatinine 3.37 H, Estim Creat Clear Calc 25.42, Est GFR (MDRD) Af Amer 24 L, Est GFR (MDRD) Non-Af 20 L, BUN/Creatinine Ratio 18.1, Glucose 331 H, Calcium 9.0, Total Bilirubin 1.70 H, AST 52 H, ALT 43, Alkaline Phosphatase 120 H, Total Protein 7.1, Albumin 2.2 L, Globulin 4.9 H, Albumin/Globulin Ratio 0.4 L 05/28/21 16:29: Lactic Acid 1.7 Radiology Impression Venous Doppler Study 05/28/21 15:09 Interpretation Summary There is no evidence of left lower extremity deep vein thrombosis. Left great saphenous vein appears patent and compressible segmentally. Ordering Physician: Avtar Cueto Performed By: Liana Patino RVT Foot X-Ray 05/28/21 15:30 IMPRESSION: 1. No destructive bony process. 2. Medial and posterior foot soft tissue swelling with air likely correlating to infection/ulcer. Electronically Signed: Christophe John MD ([place]) at 16:51 EST , Service support , Charges/Coding Visit Charges Office Visits / Consults: 59028 IP Consult L5 Procedures Hospitalists Procedures: 01113 Advncd Care Plan 30 Min
--- NOTE | 2021-05-28 18:45 | CASEMGMT ---
LU CM to room to meet with patient for initial transition planning/care coordination assessment. RN CM introduced self and role at [facility]. Patient voices understanding and consents to assessment at this time. Patient is alert and oriented and answers all questions appropriately. Care providers, pharmacy, and demographics verified/updated at this time. PCP: Yoly Brown Specialists: Fascione- wound, Dr. Mykel Chavez- endocrinology, Dinary- telecommunication engineer ([place], [place]), Richie- pulmonology Preferred Pharmacy: [facility] Insurance: Medicare & [employer] Prescription Benefit: yes Living Will/HPOA: Patient states he has a living will and HPOA is daughter, Shyann Salgado. Patient made aware these forms are not on file at [facility] and may be brought in to be scanned into record. LNOK: Daughter- Shyann Salgado Living Arrangements: Patient lives alone in two story house with two steps to enter the home with a handrail present. Patient states independent with ADLs prior to hospitalization. Smoking/ETOH: Patient admits to smoking a little bit but not everyday. Denies ETOH use. Transportation: Self DME/HHC/SNF: Patient typically ambulates with walker. Also available in home: cane, wheelchair, shower chair, grab bars, BiPAP (no oxygen bled-in), and glucometer with supplies. Patient does not wear home oxygen. Patient is active with [facility] for SN and nurse visits everyday for wound care. Patient unsure of [facility] company and states no longer receiving home PT. Denies previous SNF stays. Patient has no concerns with going home at time of discharge and plans to continue with [facility] for wound care. CM to follow for any discharge planning/needs. Patient voices no concerns/needs at this time. Advised patient to ask for CM if any questions/concerns/needs arise. Voices understanding. Plan: home with resumption of HHC
[2021-05-28] MEDS: Acetaminophen 325 MG Tablet 650 MG PO (20:09)
[2021-05-28] MEDS: oxyCODONE 5 MG Tablet PO (20:09)
[2021-05-28] MEDS: 0.9% Normal Saline 1,000 ML 100 ML IV (20:10)
--- NOTE | 2021-05-28 20:17 | PCM.RX.CS ---
Consult Pharmacy has been consulted to manage selected antiobiotic: Vancomycin Type of Consult: New start Prior Doses of Antibiotics Received/Current Regimen: Medications Discontinued Medications Vancomycin HCl 2,000 mg/ (Sodium Chloride) 540 mls @ 250 mls/hr IV X1 ONE Stop: 05/28/21 18:09 Last Admin: 05/28/21 16:55 Dose: 250 mls/hr Documented by: Labs: Sodium 130 mmol/L (136-145) L 05/28/21 16:29 Potassium 5.3 mmol/L (3.5-5.1) H 05/28/21 16:29 Chloride 94 mmol/L (98-107) L 05/28/21 16:29 Carbon Dioxide 28.0 mmol/L (21.0-32.0) 05/28/21 16:29 Anion Gap 8 (5-15) 05/28/21 16:29 BUN 61 mg/dL (7-18) H 05/28/21 16:29 Creatinine 3.37 mg/dL (0.70-1.30) H 05/28/21 16:29 Est GFR (MDRD) Af Amer 24 mL/min (>60) L 05/28/21 16:29 Est GFR (MDRD) Non-Af 20 mL/min (>60) L 05/28/21 16:29 BUN/Creatinine Ratio 18.1 RATIO (10-20) 05/28/21 16:29 Glucose 331 mg/dL (74-106) H 05/28/21 16:29 Microbiology: Microbiology 05/28/21 17:50 Nasal Secretion SARS-CoV-2 Antigen (Rapid) - Final Weight used for dosin kg Estimated Creatinine Clearance: 25 mL/min Goal Trough: 15-20 mcg/mL Pharmacy Plan for Drug Dosinmg x1, 1250mg IV q24h with trough prior to 3rd dose. Pharmacy Service will continue to monitor and adjust dosing as required. Follow-Up Labs: Trough Vancomycin - 05/30 @ 1630
[2021-05-28 20:18] LABS: Erythrocyte Sedimentation Rate 89 mm/hr (0-20)
--- NOTE | 2021-05-28 20:49 | HP.PCM_ITS ---
HPI - General General Date of Admission: 05/28/21 HPI Narrative JUAREZ GOODRICH, is a 65 M who presents CKD stage III, COPD, obesity, diabetes type 2 with peripheral polyneuropathy. He is being followed in the wound care center by Dr. Chan for chronic left heel ulceration. Last visit to the wound care center was 05/23/2021 where he underwent debridement of left heel ulceration. He states over the weekend after visiting nursing had left for the day that he began to develop redness and increasing pain in his left foot, and that over the weekend some purulent drainage began to emerge from the site and the redness spread proximally up the leg. He was seen by visiting nursing on Friday who recommended he go to the ED. Upon arrival at the ED he developed new onset fever with temperature of 100.9 and he denied any nausea,vomiting, chills, or shortness of breath ultrasound was performed in the ED was negative for DVT. Plain film radiograph negative for bony destruction with air medial to to posterior foot associated with likely diabetic foot ulcer, blood cultures by 2 pending. WBC 20.4 with left shift upon admission to [facility]. Patient currently receiving IV vancomycin and Zosyn. Patient has history of MRSA, Proteus, Enterococcus, anaerobic cocci, Bacteroides from previous culture 03/08/2021. At that time he finished full course of oral antibiotics, Augmentin and Bactrim. He is seen bedside resting with feet elevated. He denies any constitutional symptoms at this present time. FOR[facility]LY [facility] Medical History (Updated 05/29/21 @ 09:[address] 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 Wears hearing aid in both ears Home Medications ascorbic acid (vitamin C) 1,000 mg PO TID 07/11/20 [History Last Taken 05/27/21] aspirin 81 mg PO DAILY@0800 07/11/20 [History Last Taken 05/27/21] atorvastatin 80 mg PO QHS 07/11/20 [History Last Taken 05/27/21] glipizide 10 mg PO DAILY 07/11/20 [History Last Taken 05/27/21] insulin glargine 35 unit SQ BREAKFAST 07/11/20 [History Last Taken 05/27/21] insulin glargine 40 unit SQ QHS 07/11/20 [History Last Taken 05/27/21] insulin lispro See Protocol SQ DAILY 07/11/20 [History Last Taken 05/27/21] magnesium oxide 500 mg PO DAILY 07/11/20 [History Last Taken 05/27/21] oxycodone-acetaminophen 1 tab PO TID 07/11/20 [History Last Taken 05/27/21] carvedilol 12.5 mg PO DAILY 08/17/20 [History Last Taken 05/27/21] cholecalciferol (vitamin D3) 125 mcg PO DAILY 05/28/21 [History Last Taken 05/27/21] Allergy/AdvReac Type Severity Reaction Status Date / Time codeine AdvReac Nausea Verified 05/28/21 14:35 promethazine [From Phenergan] AdvReac Nausea Verified 05/28/21 14:35 Family History (Updated 05/28/21 @ 18:[address] Tiffanie Carlson MD) Father CVA (cerebral vascular accident) Myocardial infarction Mother Dementia Surgical History (Updated 05/28/21 @ 20:45 by Bharati Cook) History of appendectomy History of coronary artery stent placement History of surgery on arm Hx of partial nephrectomy Previous back surgery S/P appendectomy Social History (Updated 05/28/21 @ 19:[address] Tiffanie Carlson MD) household members: none Smoking Status: Former smoker quit date: 05/19/15 Tobacco: How many years used: 50 how long ago did patient quit smoking: Smoked ~1/2 ppd x 50 years until quit. alcohol intake: never substance use type: does not use ROS Constitutional Constitutional: Reports fever(s) and malaise; Denies body ache(s) or chills Eyes Eyes: Denies double vision, eye pain or loss of vision ENT HEENT: Denies dizziness, ear pain, headache(s), nasal congestion or sore throat Cardiovascular Cardiovascular: Denies chest pain, palpitations or syncope Respiratory/Chest Respiratory/Chest: Reports other Details: No shortness of breath ; Denies cough or dyspnea Genitourinary Genitourinary: Denies difficulty urinating, dysuria or polyuria Musculoskeletal Musculoskeletal: Reports back pain, joint pain and joint stiffness Integumentary Integumentary: Reports other Details: Left diabetic foot ulceration, serosanguineous drainage Neurologic Neurologic: Denies dizziness, headache(s), numbness, syncope or tingling Psychiatric Psychiatric: Denies anxiety or depression Endocrine Endocrinology: Reports cold intolerance, excessive sweating and heat intolerance; Denies polydipsia or polyuria Hematologic/Lymphatic Hematologic/Lymphatic: Denies anemia, easy bleeding or easy bruising Vital Signs Vital Signs Vital Signs: 05/28/21 14:33 05/28/21 15:55 05/28/21 15:56 Temperature 98.4 F 98.4 F Temperature Source Temporal Temporal Pulse Rate 91 84 84 Respiratory Rate 22 H 24 H 24 H Blood Pressure 162/52 H 159/88 H 159/88 H Blood Pressure Mean 88 111 111 Blood Pressure Source Blood Pressure Position Blood Pressure Location Pulse Ox 93 87 95 Oxygen Delivery Method Room Air Room Air Oxygen Flow Rate (L/min) 2 2 05/28/21 16:40 05/28/21 16:55 05/28/21 17:00 Temperature 98.1 F 98.1 F 98 F Temperature Source Oral Temporal Temporal Pulse Rate 82 Respiratory Rate 24 H Blood Pressure 152/77 H Blood Pressure Mean 102 Blood Pressure Source Blood Pressure Position Blood Pressure Location Pulse Ox 95 Oxygen Delivery Method Nasal Cannula Oxygen Flow Rate (L/min) 2 05/28/21 18:00 05/28/21 20:00 Temperature 100.9 F H 102.3 F H Temperature Source Oral Oral Pulse Rate 82 74 Respiratory Rate 22 H 20 H Blood Pressure 150/74 H 82/55 L Blood Pressure Mean 99 64 Blood Pressure Source Monitor Blood Pressure Position Sitting Blood Pressure Location Right Arm Pulse Ox 93 82 Oxygen Delivery Method Nasal Cannula Nasal Cannula Oxygen Flow Rate (L/min) 2 3 Weight Weight: 127.006 kg Body Mass Index (BMI) 34.9 Physical Exam Const alert, oriented x3, no apparent distress and well nourished General Appearance: cooperative HEENT normocephalic Eyes conjunctivae normal; Negative for no scleral icterus General Eye: normal appearance of both eyes Neck supple and no JVD Chest inspection of chest normal Resp normal respiratory effort Cardio regular rate and regular rhythm GI soft to palpation Inspection: central obesity Auscultation: hypoactive bowel sounds Back/Spine normal to inspection Extremity normal capillary refill General Extremity: edema left lower extremity (Pedal to proximal dempsey, nonpitting); Negative for clubbing or cyanosis Peripheral Pulses: Yes posterior tibial pulses present and dorsalis pedis pulses present Skin Skin Narrative: Notable left lower extremity ulceration with mild purulence, eschar, localized erythema, and bullae distal plantar to ulceration site General Skin Exam: no breakdown and turgor normal Lesions: no lesions Wound Narrative: Left lower extremity heel ulceration measuring 2.5 cm x 2.8 cm x 1.1 cm with tracking distally 1.2 cm at the 12 o'clock position. Wound base is mixed fibrotic granular tissue with ARIN ulceration eschar and erythema. Erythema extends proximally and circumferentially to the tibial tuberosity. There is a reddish-purple discolored bullae distal and medial to the ulceration site with palpable localized fluid collection that is mildly fluctuant to palpation. Ulceration demonstrates serosanguineous drainage with scant purulen ce expressible from the site. Pain to palpation arin-ulceration. Neuro Motor Exam: strength 5/5 throughout and clonus absent Results Lab / Micro Data Result Diagrams: 05/29/21 05:35 05/29/21 05:35 Labs: Laboratory Results - last 24 hr 05/28/21 15:33: Urine Color Yellow, Urine Clarity Clear, Urine pH 5.0, Ur Specific [place] 1.020, Urine Protein 100 H, Urine Glucose (UA) 50 H, Urine Ketones Negative, Urine Occult Blood 150 H, Urine Nitrite Negative, Urine Bilirubin Negative, Urine Urobilinogen Normal, Ur Leukocyte Esterase 25 H, Urine RBC 0-5 SEEN, Urine WBC 0 SEEN, Ur Squamous Epith Cells 0 SEEN, Amorphous Sediment 1+, Urine Bacteria 0 SEEN, Urine Mucus 0 SEEN 05/28/21 16:29: WBC 20.4 H, RBC 5.21, Hgb 14.4, Hct 45.5, MCV 87.3, MCH 27.6, MCHC 31.6 L, RDW Std Deviation 46.5 H, RDW Coeff of Darrell 14.4, Plt Count 189, MPV 10.7, Immature Gran % (Auto) 0.800, Neut % (Auto) 87.1 H, Lymph % (Auto) 4.7 L, [place] % (Auto) 7.2, Eos % (Auto) 0.0, Baso % (Auto) 0.2, Absolute Neuts (auto) 17.7 H, Absolute Lymphs (auto) 0.96, Nucleated RBC % 0 05/28/21 16:29: Sodium 130 L, Potassium 5.3 H, Chloride 94 L, Carbon Dioxide 28.0, Anion Gap 8, BUN 61 H, Creatinine 3.37 H, Estim Creat Clear Calc 25.42, Est GFR (MDRD) Af Amer 24 L, Est GFR (MDRD) Non-Af 20 L, BUN/Creatinine Ratio 18.1, Glucose 331 H, Calcium 9.0, Total Bilirubin 1.70 H, AST 52 H, ALT 43, Alkaline Phosphatase 120 H, Total Protein 7.1, Albumin 2.2 L, Globulin 4.9 H, Albumin/Globulin Ratio 0.4 L 05/28/21 16:29: Lactic Acid 1.7 05/28/21 16:29: ESR 89 H 05/28/21 16:29: C-React Prot Ext Range 216.00 H Micro: Microbiology 05/28/21 17:50 Nasal Secretion SARS-CoV-2 Antigen (Rapid) - Final Radiology Impression Venous Doppler Study 05/28/21 15:09 Interpretation Summary There is no evidence of left lower extremity deep vein thrombosis. Left great saphenous vein appears patent and compressible segmentally. Ordering Physician: Avtar Cueto Performed By: Liana Patino RVT Foot X-Ray 05/28/21 15:30 IMPRESSION: 1. No destructive bony process. 2. Medial and posterior foot soft tissue swelling with air likely correlating to infection/ulcer. Electronically Signed: Christophe John MD ([place]) at 16:51 EST , Service support , Assessment & Plan Assessment/Plan (1) Non-pressure chronic ulcer of left heel and midfoot with fat layer exposed: (2) Left foot pain: (3) Cellulitis of left foot: (4) Diabetic foot ulcer: QUALIFIERS: Diabetes mellitus type: type 2 Diabetic foot ulcer location: heel Laterality: left Non-pressure ulcer stage: with fat layer exposed Qualified Code(s): E11.621 - Type 2 diabetes mellitus with foot ulcer; L97.422 - Non-pressure chronic ulcer of left heel and midfoot with fat layer exposed (5) Cellulitis of left leg: (6) COPD (chronic obstructive pulmonary disease): QUALIFIERS: COPD type: emphysema Emphysema type: centrilobular Qualified Code(s): J43.2 - Centrilobular emphysema (7) Other hereditary and idiopathic neuropathies: (8) Obesity: QUALIFIERS: Body mass index: BMI 33.0-33.9 Obesity classification: adult class 1 (BMI 30 - 34.9) Obesity type: due to excess calories Serious obesity comorbidity presence: with serious comorbidity Qualified Code(s): E66.09 - Other obesity due to excess calories; Z68.33 - Body mass index [BMI] 33.0-33.9, adult (9) Tobacco abuse: (10) Bilateral edema of lower extremity: (11) Delayed wound healing: PLAN: This 65-year-old male with past medical history of CKD stage III, COPD, obesity, diabetes mellitus type 2 with peripheral polyneuropathy, former smoker resented to the [facility] ED on 05/28/2021 for increasing redness and pain to the left lower extremity secondary to left heel ulceration. He is being followed in the wound care center by Dr. Chan where he underwent debridement on 05/23/2021 of chronic left heel ulceration. Over the weekend he developed increasing fatigue, malaise, increasing redness proximally, purulent drainage from the left heel, increasing pain radiating up the leg rated a 7 out of 10 in severity, and new onset fever. Patient has history of MRSA, Proteus, Enterococcus, anaerobic cocci, and Bacteroides from culture 03/08/2021 of left heel ulceration where he finished a full course of oral antibiotics Augmentin and Bactrim. Left plantar heel ulceration measures 2.5 cm x 2.8 cm x 1.1 cm with proximal tracking 1.2 cm at the 12 o'clock position distally. There is a large reddish- purple bullae distally and medial to the ulceration site with slight palpable fluctuance/localized fluid collection. Cellulitis of the left foot with proximal and circumferential migration to the tibial tuberosity secondary to chronic nonhealing left heel ulceration. Ultrasound performed in ED negative for DVT. Plain film radiograph negative for bony destruction with air medial to posterior foot associated with likely diabetic foot ulceration. Blood cultures obtained x2 pending. Wound cultures pending, likely for MRSA. Upon admission WBC 20.4 with left shift, this has since decreased to 17.0 with IV antibiotics vancomycin and Zosyn on board. Left heel ulceration is dressed wet-to-dry Dakin's dressing with ABD, Kerlix, and an Kevin wrap rolled onto the left foot. Dressings to be changed twice daily with nursing assistance. Awaiting infectious disease consultation and recommendation. Medicine team consulted for medical management of COPD, diabetes type 2 with peripheral polyneuropathy, CKD stage III, hyperkalemia hyponatremia elevated liver function tests, hypertension, hyperlipidemia, obesity. Medical management is appreciated. Podiatry is currently following with surgical planning for incision and drainage with debridement of necrotic/nonviable tissue planned for this afternoon. Patient to remain n.p.o. DVT prophylaxis SCDs, medicine to hold chemoprophylaxis for planned OR debridement.
[2021-05-28] MEDS: Morphine 2 MG/ML Syringe IV (21:23)
[2021-05-28] MEDS: 0.9% Saline Lock 10 ML Syringe IV (21:24)
--- NOTE | 2021-05-28 22:00 | RAD_ITS ---
EXAM: XR Chest, 2 Views CLINICAL INDICATION: 65 years old, Male; Hypoxia, cough TECHNIQUE: Frontal and lateral views of the chest. This report was created using [employer] report generation technology. COMPARISON: None. FINDINGS: Lungs and pleural spaces: Infiltrates in the mid and lower lungs worrisome for pneumonia. No pneumothorax. No effusion. Heart: Unremarkable. Cardiac silhouette not enlarged. Mediastinum: Central airways and mediastinal contour are unremarkable. Bones/joints: Unremarkable. Soft tissues: Unremarkable. RAD/Chest PA and Lateral IMPRESSION: Infiltrates in the mid and lower lungs worrisome for pneumonia. Electronically Signed: Khris Love MD at 22:35 EST Tel , Service support ,
[2021-05-28 22:20] LABS: Bedside Glucose 218 mg/dL (70-110)
[2021-05-28] MEDS: Atorvastatin Calcium 80 MG Tablet PO (22:21)
[2021-05-28] MEDS: Insulin Lispro 100 UNIT/ML INSULN.PEN SC (22:21)
[2021-05-28 22:56] LABS: Probe Check PASS; Staph aureus DNA By PCR POSITIVE (Negative)
[2021-05-28 22:58] LABS: M R Staph aureus DNA By PCR POSITIVE (Negative)
[2021-05-29] VITALS (27 sets, daily range): BP systolic 58–160; BP diastolic 28–97; PULSE 55–71; RESP 14–22; TEMP 36.1–37.3; O2SAT 79–95; BMI 35.6
[2021-05-29 00:31] LABS: Anion Gap 6 (5-15); BUN 62 mg/dL (7-18); BUN/Creat Ratio 18.7 RATIO (10-20); Calcium,Total 8.1 mg/dL (8.5-10.1); Chloride 100 mmol/L (98-107); Creatinine, Serum 3.32 mg/dL (0.70-1.30); EST Glomerular Filtration Rate 20 mL/min (>60); Est Glom Filt Rate - Afr Amer 24 mL/min (>60); Estimated Creatinine Clearance 25.81 ml/min; Glucose 271 mg/dL (74-106); Potassium 4.9 mmol/L (3.5-5.1); Sodium Level 134 mmol/L (136-145)
[2021-05-29] MEDS: oxyCODONE 5 MG Tablet PO ×3 (02:18→23:44)
--- NOTE | 2021-05-29 03:14 | PCS.PANDOC ---
PANDEMIC DOCUMENTATION INITIATED: Date: 05/28/2021 Time: 1950
[2021-05-29] MEDS: 0.9% Saline Lock 10 ML Syringe IV ×2 (05:52→17:21)
[2021-05-29] MEDS: Morphine 2 MG/ML Syringe IV ×2 (05:52→17:21)
--- NOTE | 2021-05-29 05:55 | EKG12_ITS ---
Test Reason : Blood Pressure : / mmHG Vent. Rate : 064 BPM Atrial Rate : 064 BPM P-R Int : 310 ms QRS Dur : 120 ms QT Int : 408 ms P-R-T Axes : 019 -40 095 degrees QTc Int : 420 ms Sinus rhythm with 1st degree A-V block Left axis deviation Abnormal ECG When compared with ECG of 28-AUG-2020 10:35, T wave inversion no longer evident in Inferior leads T wave amplitude has decreased in Anterior leads Confirmed by RICKEY SANCHEZ, ALICIA ([id number]), technical writer and editor ALAN HERRERA ([id number]) on 05/31/2021 1:51:47 PM Referred By: HAM Confirmed By:HOWIE LANG MD
[2021-05-29] MEDS: 0.9% Normal Saline 1,000 ML 100 ML IV ×2 (05:58→15:01)
[2021-05-29 06:06] LABS: Bedside Glucose 233 mg/dL (70-110)
[2021-05-29] MEDS: Insulin Lispro 100 UNIT/ML INSULN.PEN SC ×2 (06:08→21:58)
[2021-05-29 06:18] LABS: Absolute Lymphocyte Count 1.77 X10^3/uL (0.83-4.51); Absolute Neutrophil Count 13.3 X10^3/uL (2.0-7.7); Basophil# 0.04 X10^3/uL; Basophil% 0.2 % (0-1); Eosinophil# 0.13 X10^3/uL; Eosinophils% 0.8 % (0-5); Lymphocyte # 1.77 X10^3/ul (0.83-4.51); Lymphocyte % 10.4 % (19-41); Mean Corpuscular Hgb 27.5 pg (27.0-32.0); Mean Corpuscular Volume 88.8 fL (80-94); Mean Platelet Vol. 10.8 fl (6.2-12.0); Monocyte# 1.67 X10^3/uL; Monocyte% 9.8 % (0-10); NRBC Flagged by Analyzer 0 % (0-5); Neutrophil # 13.32 X10^3/uL (2.7-7.7); Neutrophil % 78.2 % (47-70); POSITIVE DIFFERENTIAL YES; Platelet Count 182 K/mm3 (150-450); RBC Distribution Width CV 14.6 % (11.6-14.6); RBC Distribution Width SD 47.7 fl (35.1-43.9); Red Blood Count 4.73 M/mm3 (4.6-6.2)
[2021-05-29 06:27] LABS: Differential Indicated SCAN CRITERIA MET
[2021-05-29] MEDS: Ipratropium/Albuterol Sulfate 3 ML AMPUL.NEB INHALATION ×2 (06:45→12:02)
[2021-05-29 06:46] LABS: ALB/GLOB Ratio 0.4 RATIO (0.9-2.4); AST(SGOT) 46 U/L (15-37); Alanine Aminotransfer ALT/SGPT 43 U/L (16-61); Albumin, Serum 1.8 g/dL (3.2-5.0); Alkaline Phosphatase 116 U/L (45-117); Anion Gap 4 (5-15); BUN 64 mg/dL (7-18); BUN/Creat Ratio 18.5 RATIO (10-20); Calcium,Total 8.2 mg/dL (8.5-10.1); Chloride 101 mmol/L (98-107); Creatinine, Serum 3.46 mg/dL (0.70-1.30); EST Glomerular Filtration Rate 19 mL/min (>60); Est Glom Filt Rate - Afr Amer 23 mL/min (>60); Estimated Creatinine Clearance 24.76 ml/min; Globulin 4.4 g/dL (2.2-4.2); Glucose 243 mg/dL (74-106); Potassium 4.7 mmol/L (3.5-5.1); Protein, Total 6.2 g/dL (6.4-8.2); Sodium Level 133 mmol/L (136-145)
[2021-05-29 07:12] LABS: Atypical Lymphocyte 1+ %
--- NOTE | 2021-05-29 07:23 | PN.HOSP_ITS ---
Subjective Subjective Patient is a 65-year-old gentleman with multiple comorbidities including diabetes mellitus. Polyneuropathy with recent wound debridement for chronic left heel ulcer who presented with purulent discharge with associated fever and chills Objective Data Objective Data Vital Signs: Vital Signs Temp Pulse Resp BP Pulse Ox 98.1 F 70 21 H 95/53 L 91 05/29/21 05:48 05/29/21 06:46 05/29/21 06:46 05/29/21 05:48 05/29/21 06:46 Oxygen Flow Rate (L/min) 6 Oxygen Delivery Method Nasal Cannula Weight: 130.181 kg Body Mass Index (BMI) 35.3 Intake & Output: Intake and Output for Last 24 Hours 05/27/21 05/28/21 05/29/21 23:59 23:59 23:59 Intake Total 840 / 840 1030 / 1030 Output Total 500 / 500 Balance 840 / 840 530 / 530 Lab / Micro Data Result Diagrams: 05/29/21 05:35 05/29/21 05:35 Labs: Laboratory Results - last 24 hr 05/28/21 15:33: Urine Color Yellow, Urine Clarity Clear, Urine pH 5.0, Ur Specific [place] 1.020, Urine Protein 100 H, Urine Glucose (UA) 50 H, Urine Ketones Negative, Urine Occult Blood 150 H, Urine Nitrite Negative, Urine Bilirubin Negative, Urine Urobilinogen Normal, Ur Leukocyte Esterase 25 H, Urine RBC 0-5 SEEN, Urine WBC 0 SEEN, Ur Squamous Epith Cells 0 SEEN, Amorphous Sed iment 1+, Urine Bacteria 0 SEEN, Urine Mucus 0 SEEN 05/28/21 16:29: WBC 20.4 H, RBC 5.21, Hgb 14.4, Hct 45.5, MCV 87.3, MCH 27.6, MCHC 31.6 L, RDW Std Deviation 46.5 H, RDW Coeff of Darrell 14.4, Plt Count 189, MPV 10.7, Immature Gran % (Auto) 0.800, Neut % (Auto) 87.1 H, Lymph % (Auto) 4.7 L, [place] % (Auto) 7.2, Eos % (Auto) 0.0, Baso % (Auto) 0.2, Absolute Neuts (auto) 17.7 H, Absolute Lymphs (auto) 0.96, Nucleated RBC % 0 05/28/21 16:29: Sodium 130 L, Potassium 5.3 H, Chloride 94 L, Carbon Dioxide 28.0, Anion Gap 8, BUN 61 H, Creatinine 3.37 H, Estim Creat Clear Calc 25.42, Est GFR (MDRD) Af Amer 24 L, Est GFR (MDRD) Non-Af 20 L, BUN/Creatinine Ratio 18.1, Glucose 331 H, Calcium 9.0, Total Bilirubin 1.70 H, AST 52 H, ALT 43, Alkaline Phosphatase 120 H, Total Protein 7.1, Albumin 2.2 L, Globulin 4.9 H, Albumin/Globulin Ratio 0.4 L 05/28/21 16:29: Lactic Acid 1.7 05/28/21 16:29: ESR 89 H 05/28/21 16:29: C-React Prot Ext Range 216.00 H 05/28/21 21:20: S.aureus Protein A PCR POSITIVE H, MRSA (PCR) POSITIVE H 05/28/21 22:13: POC Glucose 218 H 05/28/21 23:58: Sodium 134 L, Potassium 4.9, Chloride 100, Carbon Dioxide 28.0, Anion Gap 6, BUN 62 H, Creatinine 3.32 H, Estim Creat Clear Calc 25.81, Est GFR (MDRD) Af Amer 24 L, Est GFR (MDRD) Non-Af 20 L, BUN/Creatinine Ratio 18.7, Glucose 271 H, Calcium 8.1 L 05/29/21 05:35: WBC 17.0 H, RBC 4.73, Hgb 13.0, Hct 42.0, MCV 88.8, MCH 27.5, MCHC 31.0 L, RDW Std Deviation 47.7 H, RDW Coeff of Darrell 14.6, Plt Count 182, MPV 10.8, Immature Gran % (Auto) 0.600, Neut % (Auto) 78.2 H, Lymph % (Auto) 10.4 L, [place] % (Auto) 9.8, Eos % (Auto) 0.8, Baso % (Auto) 0.2, Absolute Neuts (auto) 13.3 H, Absolute Lymphs (auto) 1.77, Nucleated RBC % 0, Diff Path Review May foll, Atypical Lymphocytes 1+ 05/29/21 05:35: Sodium 133 L, Potassium 4.7, Chloride 101, Carbon Dioxide 28.0, Anion Gap 4 L, BUN 64 H, Creatinine 3.46 H, Estim Creat Clear Calc 24.76, Est GFR (MDRD) Af Amer 23 L, Est GFR (MDRD) Non-Af 19 L, BUN/Creatinine Ratio 18.5, Glucose 243 H, Calcium 8.2 L, Total Bilirubin 0.90, AST 46 H, ALT 43, Alkaline Phosphatase 116, Total Protein 6.2 L, Albumin 1.8 L, Globulin 4.4 H, Albumin/Globulin Ratio 0.4 L 05/29/21 06:01: POC Glucose 233 H Micro: Microbiology 05/28/21 17:50 Nasal Secretion SARS-CoV-2 Antigen (Rapid) - Final Radiography Diagnostic Testing: Radiology Impression Venous Doppler Study 05/28/21 15:09 Interpretation Summary There is no evidence of left lower extremity deep vein thrombosis. Left great saphenous vein appears patent and compressible segmentally. Ordering Physician: Avtar Cueto Performed By: Liana Patino Anastasia Foot X-Ray 05/28/21 15:30 IMPRESSION: 1. No destructive bony process. 2. Medial and posterior foot soft tissue swelling with air likely correlating to infection/ulcer. Electronically Signed: Christophe John MD ([place]) at 16:51 EST , Service support , Chest X-Ray 05/28/21 22:00 IMPRESSION: Infiltrates in the mid and lower lungs worrisome for pneumonia. Electronically Signed: Khris Love MD at 22:35 EST Tel , Service support , Physical Exam Narrative GENERAL: cooperative HEENT: Atraumatic; EYES; Anicteric, Normal Conjunctiva NECK; supple, normal thyroid, RESPIRATORY: Diminished to auscultation CARDIOVASCULAR: Regular S1 S2, GI: soft, normoactive bowel sounds, : No Renal angle tenderness; EXTREMITIES: Infected wound involving the left heel with area of induration and necrosis MUSCULOSKELETAL: no muscle waisting NEURO: Awake; no lateralizing signs. SKIN: No Rash PSYCH; Flat affect Assessment & Plan Assessment/Plan (1) Diabetic foot ulcer: PLAN: Patient is a 65-year-old gentleman with multiple comorbidities including diabetes mellitus. Polyneuropathy with recent wound debridement for chronic left heel ulcer who presented with purulent discharge with associated fever and chills 1. Infected diabetic foot ulcer involving the left heel ? Patient apparently underwent wound debridement on 05/24/2021 presented with worsening symptoms. Patient has history of polymicrobial infection from the wound. Was started on broad-spectrum antibiotic therapy admitted to regular nursing floor. Consultation was placed to podiatry for possible I&D consult placed to ID for management of patient antibiotic therapy 2. Hyponatremia -suspected to be secondary to hypovolemic hyponatremia patient on fluids with subsequent monitoring with daily BMP 3. PATRICK on CKD stage IIIb ? Patient baseline creatinine between 2.2-2.9. Creatinine on admission was 3.37 worsened to 3.46 on fluid with subsequent monitoring of electrolyte consult placed to nephrology 4. Hyperkalemia Secondary to patient impaired kidney function treated per protocol 5. Diabetes mellitus type II -patient's oral hypoglycemics held. Placed on long acting insulin, Accu-Cheks a.c. and at bedtime and covered with sliding scale insulin 6. Chronic hypoxic respiratory failure -secondary to COPD patient on baseline home oxygen 7. Hypertension - Blood pressure controlled, home medications continued with dose adjustment as needed 8. Dyslipidemia -Patient is on statin therapy, continued at home dose 9. Obstructive sleep apnea ? On CPAP at night plan is to continue with home statin 10. Class II obesity with BMI of 35.7 ? Weight loss advised 11. DVT prophylaxis -do plan to start Lovenox with dose to be adjusted for kidney function following patient procedure Charges/Coding Visit Charges Inpatient E&M: 70984 Subs Hosp L3
[2021-05-29 08:10] LABS: Bedside Glucose 204 mg/dL (70-110)
[2021-05-29 08:16] LABS: Hemoglobin A1c 11.6 % (3.8-5.6)
--- NOTE | 2021-05-29 08:45 | WOUNDNOTE ---
wound photo: left foot
--- NOTE | 2021-05-29 08:46 | WOUNDNOTE ---
wound photo: left foot
[2021-05-29] MEDS: Aspirin 81 MG TAB.CHEW PO (09:52)
[2021-05-29] MEDS: Carvedilol 12.5 MG Tablet PO (09:52)
[2021-05-29] MEDS: DAKIN'S SOL HALF STRENGTH (=0.25%) 1 APPLIC TOPICAL (10:17)
--- NOTE | 2021-05-29 10:23 | PCM.CONS.GEN ---
Assessment & Plan Assessment/Plan (1) Cellulitis of left foot: (2) Sepsis: PLAN: Sepsis with fever, leukocytosis, PATRICK on CKD, due to L foot infected ulcer. Has history of MRSA, Proteus, Enterococcus, anaerobic cocci, Bacteroides from previous culture 03/08/2021. At that time he finished full course of oral antibiotics, Augmentin and Bactrim. Wound cx here pending. MRSA pcr (+). Now on vanc/zosyn, OR planned. Refuses covid vaccine. Will follow, thank you. HPI Consult Data Date of Consult: 05/29/21 HPI Narrative HPI Narrative: JUAREZ GOODRICH, is a 65 M who presented with several days worsening L heel ulcer with pain, swelling, redness, fever. Ulcer since Jun. No recent inciting events, no recent abx. Follows at wound center, had been getting debridements. Unvaccinated for covid. Admitted here, started on vanc/zosyn, OR planned. Full ROS performed and neg except as noted above. 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 Wears hearing aid in both ears Home Medications ascorbic acid (vitamin C) 1,000 mg PO TID 07/11/20 [History Last Taken 05/27/21] aspirin 81 mg PO DAILY@0800 07/11/20 [History Last Taken 05/27/21] atorvastatin 80 mg PO QHS 07/11/20 [History Last Taken 05/27/21] glipizide 10 mg PO DAILY 07/11/20 [History Last Taken 05/27/21] insulin glargine 35 unit SQ BREAKFAST 07/11/20 [History Last Taken 05/27/21] insulin glargine 40 unit SQ QHS 07/11/20 [History Last Taken 05/27/21] insulin lispro See Protocol SQ DAILY 07/11/20 [History Last Taken 05/27/21] magnesium oxide 500 mg PO DAILY 07/11/20 [History Last Taken 05/27/21] oxycodone-acetaminophen 1 tab PO TID 07/11/20 [History Last Taken 05/27/21] carvedilol 12.5 mg PO DAILY 08/17/20 [History Last Taken 05/27/21] cholecalciferol (vitamin D3) 125 mcg PO DAILY 05/28/21 [History Last Taken 05/27/21] Allergy/AdvReac Type Severity Reaction Status Date / Time codeine AdvReac Nausea Verified 05/28/21 14:35 promethazine [From Phenergan] AdvReac Nausea Verified 05/28/21 14:35 Family History (Updated 05/28/21 @ 18:[address] Tiffanie Carlson MD) Father CVA (cerebral vascular accident) Myocardial infarction Mother Dementia Surgical History (Updated 05/28/21 @ 20:45 by Bharati Cook) History of appendectomy History of coronary artery stent placement History of surgery on arm Hx of partial nephrectomy Previous back surgery S/P appendectomy Social History (Updated 05/28/21 @ 19:[address] Tiffanie Carlson MD) household members: none Smoking Status: Former smoker quit date: 05/19/15 Tobacco: How many years used: 50 how long ago did patient quit smoking: Smoked ~1/2 ppd x 50 years until quit. alcohol intake: never substance use type: does not use Physical Exam Const alert, oriented x3 and no apparent distress General Appearance: cooperative Exam Limitations: no limitations HEENT normocephalic and head/scalp atraumatic Eyes PERRL and EOMs intact bilaterally Neck supple and No nodes Resp normal air movement and clear to auscultation bilaterally Cardio regular rate and regular rhythm GI soft to palpation, non-tender and non-distended Extremity General Extremity: edema Skin Skin Narrative: Reviewed photos L heel Neuro CN's II-XII intact bilaterally Lab / Micro Data Result Diagrams: 05/29/21 05:35 05/29/21 05:35 Labs: Laboratory Results - last 24 hr 05/28/21 15:33: Urine Color Yellow, Urine Clarity Clear, Urine pH 5.0, Ur Specific [place] 1.020, Urine Protein 100 H, Urine Glucose (UA) 50 H, Urine Ketones Negative, Urine Occult Blood 150 H, Urine Nitrite Negative, Urine Bilirubin Negative, Urine Urobilinogen Normal, Ur Leukocyte Esterase 25 H, Urine RBC 0-5 SEEN, Urine WBC 0 SEEN, Ur Squamous Epith Cells 0 SEEN, Amorphous Sediment 1+, Urine Bacteria 0 SEEN, Urine Mucus 0 SEEN 05/28/21 16:29: WBC 20.4 H, RBC 5.21, Hgb 14.4, Hct 45.5, MCV 87.3, MCH 27.6, MCHC 31.6 L, RDW Std Deviation 46.5 H, RDW Coeff of Darrell 14.4, Plt Count 189, MPV 10.7, Immature Gran % (Auto) 0.800, Neut % (Auto) 87.1 H, Lymph % (Auto) 4.7 L, [place] % (Auto) 7.2, Eos % (Auto) 0.0, Baso % (Auto) 0.2, Absolute Neuts (auto) 17.7 H, Absolute Lymphs (auto) 0.96, Nucleated RBC % 0 05/28/21 16:29: Sodium 130 L, Potassium 5.3 H, Chloride 94 L, Carbon Dioxide 28.0, Anion Gap 8, BUN 61 H, Creatinine 3.37 H, Estim Creat Clear Calc 25.42, Est GFR (MDRD) Af Amer 24 L, Est GFR (MDRD) Non-Af 20 L, BUN/Creatinine Ratio 18.1, Glucose 331 H, Calcium 9.0, Total Bilirubin 1.70 H, AST 52 H, ALT 43, Alkaline Phosphatase 120 H, Total Protein 7.1, Albumin 2.2 L, Globulin 4.9 H, Albumin/Globulin Ratio 0.4 L 05/28/21 16:29: Lactic Acid 1.7 05/28/21 16:29: ESR 89 H 05/28/21 16:29: C-React Prot Ext Range 216.00 H 05/28/21 21:20: S.aureus Protein A PCR POSITIVE H, MRSA (PCR) POSITIVE H 05/28/21 22:13: POC Glucose 218 H 05/28/21 23:58: Sodium 134 L, Potassium 4.9, Chloride 100, Carbon Dioxide 28.0, Anion Gap 6, BUN 62 H, Creatinine 3.32 H, Estim Creat Clear Calc 25.81, Est GFR (MDRD) Af Amer 24 L, Est GFR (MDRD) Non-Af 20 L, BUN/Creatinine Ratio 18.7, Glucose 271 H, Calcium 8.1 L 05/29/21 05:35: WBC 17.0 H, RBC 4.73, Hgb 13.0, Hct 42.0, MCV 88.8, MCH 27.5, MCHC 31.0 L, RDW Std Deviation 47.7 H, RDW Coeff of Darrell 14.6, Plt Count 182, MPV 10.8, Immature Gran % (Auto) 0.600, Neut % (Auto) 78.2 H, Lymph % (Auto) 10.4 L, [place] % (Auto) 9.8, Eos % (Auto) 0.8, Baso % (Auto) 0.2, Absolute Neuts (auto) 13.3 H, Absolute Lymphs (auto) 1.77, Nucleated RBC % 0, Diff Path Review May foll, Atypical Lymphocytes 1+ 05/29/21 05:35: Sodium 133 L, Potassium 4.7, Chloride 101, Carbon Dioxide 28.0, Anion Gap 4 L, BUN 64 H, Creatinine 3.46 H, Estim Creat Clear Calc 24.76, Est GFR (MDRD) Af Amer 23 L, Est GFR (MDRD) Non-Af 19 L, BUN/Creatinine Ratio 18.5, Glucose 243 H, Calcium 8.2 L, Total Bilirubin 0.90, AST 46 H, ALT 43, Alkaline Phosphatase 116, Total Protein 6.2 L, Albumin 1.8 L, Globulin 4.4 H, Albumin/Globulin Ratio 0.4 L 05/29/21 05:35: Hemoglobin A1c 11.6 H 05/29/21 06:01: POC Glucose 233 H 05/29/21 07:49: POC Glucose 204 H Micro: Microbiology 05/28/21 17:50 Nasal Secretion SARS-CoV-2 Antigen (Rapid) - Final Radiology Impression Venous Doppler Study 05/28/21 15:09 Interpretation Summary There is no evidence of left lower extremity deep vein thrombosis. Left great saphenous vein appears patent and compressible segmentally. Ordering Physician: Avtar Cueto Performed By: Liana Patino RVT Foot X-Ray 05/28/21 15:30 IMPRESSION: 1. No destructive bony process. 2. Medial and posterior foot soft tissue swelling with air likely correlating to infection/ulcer. Electronically Signed: Christophe John MD (Brooks) at 16:51 EST , Service support , Chest X-Ray 05/28/21 22:00 IMPRESSION: Infiltrates in the mid and lower lungs worrisome for pneumonia. Electronically Signed: Juarez Love MD at 22:35 EST Tel , Service support ,
--- NOTE | 2021-05-29 11:23 | NURSING ---
OFF UNIT VIA BED FOR SURGERY
[2021-05-29 12:00] LABS: Allen Test Positive; Base Excess 0 mmol/L (-2 to +2); Bicarbonate 26.3 mmol/L (22-26); Blood Gas Specimen Type ART; FI02 21; O2 Delivery Device Room Air; PO2 51 mmHG (75-100); SITE L Radial; SO2 82 % (95-99); Total Carbon Dioxide 28 mmol/L; pCO2 51.2 mmHg (35-45); pH 7.32 (7.35-7.45)
--- NOTE | 2021-05-29 12:24 | CASEMGMT ---
LU CM: Call received from Awilda ([phone]) at [facility] ([facility]) stating pt was receiving SN services for wound care . Pt has had PT/OT in the past but not a current service. Awilda reports pt to be nonadherent to non-weight bearing status. Crutches have been attempted in the past to facilitate non-weight bearing status but these cause pt to fall. Reports a wound vac was delivered to pt's home and was to be applied the day of pt's presentation. Will collaborate with Awilda/Miguel Ángel as needed for continuity and transitions of care. Kip Buckner RN CM
[2021-05-29] MEDS: Bupivacaine Mpf 0.5% 30 ML VIAL (12:35)
[2021-05-29] MEDS: Lidocaine 1% (30 ml sdv) 30 ML Vial (12:35)
--- NOTE | 2021-05-29 13:37 | PCM.OPRPT ---
Problems Associated Problem List Diagnoses (1) Abscess of left foot: (2) Ulcer of left foot with necrosis of muscle: (3) Cellulitis of left foot: Report of Operation Date of Procedure: 05/29/21 Pre-Operative Diagnosis: infected abscess left foot chronic ulcer left foot Post-Operative Diagnosis: infected abscess left foot chronic ulcer left foot Surgery/Procedure Performed:: debridement of non viable soft tissue and ulcer (excisional) left foot incision and drainage left foot Description of Surgical Findings:: hemostasis: no tourniquet utilized, anatomic dissection, electrocauterization materials: gelfoam specimen sent complication none The patient tolerated the procedure and anesthesia well. The patient was transported to the PACU with vital signs stable and vascular status intact to the surgical limb. To ice and elevate for pain and inflammation management. Specimens were obtained and these results are pending. Postoperative orders were entered electronically. He will be transported back to the medical surgical floor upon continued stability. Surgeon: Tiffany Chapman networker: None (Rolf Bear, HOOD, PGY1) Type of Anesthesia: General (LMA) and Local (preop: left ankle block 1:1 mix 1% lidocaine plain and 0.5% marcaine plain, 20 cc) Specimen's removed: wound culture left foot: aerobic, anaerobic, acid fast, fungal post irrigation wound culture left foot: aerobic, anaerobic, acid fast, fungal Drains: none Estimated Blood Loss (mL): 200 mL Description of Procedure: Indications: This 65-year-old male with significant past medical history of peripheral neuropathy related to diabetes, obesity, COPD, chronic kidney disease stage III has had a chronic ulcer of the left heel for many months. He has been undergoing comprehensive wound healing plan at the wound healing center including serial debridements, offloading recommendations, recommended smoking cessation, advanced product application, nutritional counseling. He recently developed a worsening status with increased pain and bulla formation over the past couple of days. He became septic and was admitted to the hospital and started on IV antibiotics. He has a chronic ulcer to his plantar posterior left heel and a new bulla with hematogenous drainage noted at the border of the heel extending into the arch on the medial and plantar aspect of the foot. Overall his vascular status appears intact however it is noted that he does have lower extremity edema. He has leukocytosis of over 20 at time of admission and is meeting sepsis criteria. His x-ray demonstrates soft tissue emphysema and air collection adjacent to the bulla which is concerning for a gas infection or some form of necrotizing fasciitis and appears to be in the deeper arch level as well. There is no osseous destruction or acute fractures or dislocations noted. He was preoperatively evaluated by hospitalist. This is an emergency surgery and he is at significant risk for limb loss, continued sepsis, and even . Preoperative indications, planned procedure, benefits, risk, anticipated healing time and management were reviewed. The patient understands and elects proceed with surgery at this time. No guarantees were made. The patient understands risk and complications include but are not limited to following: pain, swelling, scarring, need for further surgery, tendon contracture, transfer lesion, arthritis, need for further surgery, delayed or nonhealing, infection, blood clot, allergic reaction, loss of limb, function, or life. The informed surgical limb and consent were signed. I answered all the patient's questions. The patient also understands there is an inherent risk with being in the hospital and undergoing a procedure during the time of COVID- pandemic. The patient understands precautions are being taken to prevent transmission. This patient understands the benefits and risks of having a procedure at this time versus waiting in which the benefits are reasonable at this time. Procedure in detail: The patient was transported to the operating room via cart and placed on the operating table in the supine position. A timeout procedure was performed to verify the patient, surgical limb, and planned procedure. Anesthesia initiated the LMA. I administered the preoperative local anesthetic as noted. He underwent breathing treatment prior to surgery as well due to low oxygenation levels. A well-padded pneumatic midcalf tourniquet was placed however this was not utilized. The left lower extremity was prepped and draped in the usual aseptic manner and surgery began as the following: Attention was first directed to the large hematogenous bulla to the plantar left foot in which this was incised with a 15 blade scalpel. Significant odor was noted that was foul and purulence was also expressed. Fat was devitalized and this is consistent with necrotic soft tissue including subcutaneous and underlying plantar fascial tissue. A culture was obtained at this time. A rent was made in the plantar fashia structures, and devitalized tissue was excised. An incision was extended proximal medially and also distal medially to allow exposure of the flexor tendon sheath in which purulence was expressed adjacent to the abductor hallucis muscle belly and deep into the flexor tendons of the arch. A total of 6 cc of creamy thick yellow purulence was expressed and there was additional copious amounts of foul odorous dishwater type appearing fluid. Care was taken to identify, protect, and retract all neurovascular structures throughout the entire procedure. Hemostasis was controlled without the use of the tourniquet. Electrocauterization and direct pressure were used. Versajet on setting 8 was also used to excisionally debride devitalized and nonviable and purulent tissue (subcutaneous and fascia/devitalized tendon sheath) from this wound bed. Predebridement measurement was 0 x 0 x 0 cm because there was just a bulla. Post debridement measurement to the site was 10 cm x 6 cm x 2.8 cm. Next attention was directed to the prior heel ulcer which measured 2.0 x 2.3 x 0.5 cm. It was noted this did tunnel down to the plantar calcaneus periosteal level and there was a sinus tract extending to the medial arch of the foot as well. Incision was extended distal medial leg to allow debridement of the entire devitalized plantar fat pad. Versajet on setting 8 was also used to complete debridement. The postdebridement measurement here was 6 x 4 x 2.2 cm. Hemostasis was controlled and brisk capillary refill time was noted to all digits. Copious saline irrigation was performed. Post irrigation culture were obtained at this time. A postoperative dressing consisting of Gelfoam, Betadine soaked gauze packed into all the aforementioned drained planes and foot compartments, additional 4 x 4 gauze, abdominal pads, Kerlix, Coban and Kevin wrap. After procedure: The patient tolerated the procedure and anesthesia well. The patient was transported to the PACU with vital signs stable and vascular status intact to the surgical limb. To ice and elevate for pain and inflammation management. Oxycodone and morphine are ordered as needed for pain control. Postoperative x-rays will also be ordered for later evaluation. To continue on IV vancomycin and Zosyn as the cultures develop. Infectious disease on consultation and medical management is also appreciated. He is at risk for significant limb loss. Additional limb salvage recommendations will likely include a wound VAC and penitentiary facility placement versus below-knee amputation. He also understands this may require additional staged procedures for additional irrigation and debridement. Postoperative orders were entered electronically. He will be transferred back to medical surgical floor upon continued stability and and the podiatry team will continue to follow him while in house. Medical management is noted and appreciated. To resume anticoagulation medication potentially tomorrow after continued hemostasis is confirmed during morning dressing change. Nutritional supplementation and smoking cessation is also advised to optimize healing. Tiffany Chapman DPM, [facility] Foot & Ankle Ashley Grafts/Implants Used: none Complications none Admit VTE Documentation VTE Present on Admission: No VTE Mechan Device Prophylaxis: SCD's VTE Pharm Prophylaxis ordered?: Yes
[2021-05-29 14:10] LABS: Bedside Glucose 144 mg/dL (70-110)
--- NOTE | 2021-05-29 15:20 | RAD_ITS ---
EXAM: XR Left Foot Complete, 3 or More Views CLINICAL INDICATION: 65 years old, Male; s/p left foot I D and debridement TECHNIQUE: Frontal, lateral and oblique views of the left foot. This report was created using [employer] report [employer] technology. COMPARISON: None. FINDINGS: Bones/joints: Unremarkable. No acute fracture. No subluxation. Normal alignment. Preservation of the joint space. No sclerotic or destructive changes observed. Soft tissues: Gas and edema in the irregular soft tissues along the plantar surface of the mid and hindfoot consistent with recent surgery. No foreign body. There is also extensive edema around the foot and ankle. RAD/Foot min 3 Views IMPRESSION: Gas and edema in the irregular soft tissues along the plantar surface of the mid and hindfoot consistent with recent surgery. No foreign body. There is also extensive edema around the foot and ankle. Electronically Signed: Khris Love MD at 23:13 EST Tel , Service support ,
--- NOTE | 2021-05-29 15:55 | SUR.PHASEI ---
AT APPROXIMATELY 1423, DR ZHENG REMOVED THE LMA FROM THE PATIENT. PATIENT IS AWAKE AND BREATHING 16 BREATHS/MIN. O2 ON AT 6L/NC. O2 SAT 86%
[2021-05-29] MEDS: Juven (unflavored) Packet 1 PACKET PO (17:25)
[2021-05-29 17:30] LABS: Bedside Glucose 133 mg/dL (70-110)
--- NOTE | 2021-05-29 21:07 | NURSING ---
pt angry because i wont put in his scrotum piercing. said that if i dont help him he's going to take his time getting into bed. pt refused oxygen but i insisted because oxygen was low. made pt aware but he angry but complied with 02. pt said hes going to sit on edge of bed and im going to have to wait with him until hes ready to get into bed. i let pt know where call light was and that i couldnt stay with him. bed exit was turned on. i told pt to call when hes ready to get into bed
[2021-05-29] MEDS: Atorvastatin Calcium 80 MG Tablet PO (21:59)
[2021-05-29 22:30] LABS: Bedside Glucose 229 mg/dL (70-110)
[2021-05-29] MEDS: Acetaminophen 325 MG Tablet 650 MG PO (23:45)
[2021-05-30] VITALS (7 sets, daily range): BP systolic 94–139; BP diastolic 47–49; PULSE 64–72; RESP 16–18; TEMP 36.9–37.2; O2SAT 91–96
--- NOTE | 2021-05-30 00:51 | PCS.PANDOC ---
PANDEMIC DOCUMENTATION INITIATED: Date: 05/30/20 Time: 0000
[2021-05-30] MEDS: 0.9% Normal Saline 1,000 ML 100 ML IV ×2 (03:57→17:34)
[2021-05-30] MEDS: Morphine 2 MG/ML Syringe IV (06:23)
[2021-05-30 06:28] LABS: Absolute Lymphocyte Count 1.58 X10^3/uL (0.83-4.51); Absolute Neutrophil Count 9.5 X10^3/uL (2.0-7.7); Basophil# 0.03 X10^3/uL; Basophil% 0.2 % (0-1); Eosinophil# 0.28 X10^3/uL; Eosinophils% 2.2 % (0-5); Hematocrit 39.7 % (40-54); Hemoglobin 12.2 g/dL (13.0-16.5); Lymphocyte # 1.58 X10^3/ul (0.83-4.51); Lymphocyte % 12.6 % (19-41); Mean Corp Hgb Conc 30.7 g/dL (32-36); Mean Corpuscular Hgb 27.7 pg (27.0-32.0); Mean Corpuscular Volume 90.2 fL (80-94); Mean Platelet Vol. 10.8 fl (6.2-12.0); Monocyte# 1.09 X10^3/uL; Monocyte% 8.7 % (0-10); NRBC Flagged by Analyzer 0 % (0-5); Neutrophil # 9.51 X10^3/uL (2.7-7.7); Neutrophil % 75.7 % (47-70); Platelet Count 177 K/mm3 (150-450); RBC Distribution Width CV 14.8 % (11.6-14.6); White Blood Count 12.6 K/mm3 (4.4-11.0)
[2021-05-30] MEDS: Enoxaparin 30 MG/0.3 ML Syringe SC (06:29)
[2021-05-30 06:53] LABS: Anion Gap 6 (5-15); BUN 68 mg/dL (7-18); BUN/Creat Ratio 18.5 RATIO (10-20); Chloride 102 mmol/L (98-107); Creatinine, Serum 3.68 mg/dL (0.70-1.30); EST Glomerular Filtration Rate 18 mL/min (>60); Est Glom Filt Rate - Afr Amer 21 mL/min (>60); Estimated Creatinine Clearance 23.28 ml/min; Glucose 212 mg/dL (74-106); Magnesium 2.8 mg/dL (1.6-2.6); Potassium 5.2 mmol/L (3.5-5.1); Sodium Level 138 mmol/L (136-145)
--- NOTE | 2021-05-30 06:53 | WOUNDNOTE ---
wound photo: left foot
--- NOTE | 2021-05-30 06:54 | WOUNDNOTE ---
wound photo: left foot
--- NOTE | 2021-05-30 06:54 | PCM.PROGNOTE ---
Subjective Subjective This 65 year old male with diabetes and other comorbidities was seen bedside for POD#1 for left lower extremity incision and drainage with widespread debridement of the heel and arch abscess including. He denies fever, chills, nausea, vomiting. His pain is controlled at this time. Objective Data Objective Data Vital Signs: Vital Signs Temp Pulse Resp BP Pulse Ox 98.9 F 72 16 139/47 H 95 05/30/21 03:46 05/30/21 03:46 05/30/21 03:46 05/30/21 03:46 05/30/21 03:46 Oxygen Flow Rate (L/min) 6 Oxygen Delivery Method High Flow Weight: 130 kg Body Mass Index (BMI) 35.6 Intake & Output: Intake and Output for Last 24 Hours 05/28/21 05/29/21 05/30/21 23:59 23:59 23:59 Intake Total 840 / 840 2355 / 2355 1850 / 1850 Output Total 500 / 500 1000 / 1000 Balance 840 / 840 1855 / 1855 850 / 850 Lab / Micro Data Result Diagrams: 05/30/21 05:25 05/30/21 05:25 Labs: Laboratory Results - last 24 hr 05/28/21 21:20: S.aureus Protein A PCR POSITIVE H, MRSA (PCR) POSITIVE H 05/29/21 05:35: Diff Path Review May velia, Atypical Lymphocytes 1+ 05/29/21 05:35: Hemoglobin A1c 11.6 H 05/29/21 07:49: POC Glucose 204 H 05/29/21 14:04: POC Glucose 144 H 05/29/21 17:08: POC Glucose 133 H 05/29/21 21:56: POC Glucose 229 H 05/30/21 05:25: WBC 12.6 H, RBC 4.40 L, Hgb 12.2 L, Hct 39.7 L, MCV 90.2, MCH 27.7, MCHC 30.7 L, RDW Std Deviation 49.0 H, RDW Coeff of Darrell 14.8 H, Plt Count 177, MPV 10.8, Immature Gran % (Auto) 0.600, Neut % (Auto) 75.7 H, Lymph % (Auto) 12.6 L, [place] % (Auto) 8.7, Eos % (Auto) 2.2, Baso % (Auto) 0.2, Absolute Neuts (auto) 9.5 H, Absolute Lymphs (auto) 1.58, Nucleated RBC % 0 05/30/21 05:25: Sodium 138, Potassium 5.2 H, Chloride 102, Carbon Dioxide 30.0, Anion Gap 6, BUN 68 H, Creatinine 3.68 H, Estim Creat Clear Calc 23.28, Est GFR (MDRD) Af Amer 21 L, Est GFR (MDRD) Non-Af 18 L, BUN/Creatinine Ratio 18.5, Glucose 212 H, Calcium 8.0 L, Magnesium 2.8 H Micro: Microbiology 05/28/21 21:20 Wound - Heel, Left Gram Stain - Final 05/28/21 21:20 Wound - Heel, Left Wound Culture - Preliminary Gram negative baljit Gram positive organism 05/28/21 17:50 Nasal Secretion SARS-CoV-2 Antigen (Rapid) - Final ABG Data ABG results: ABG 05/29/21 11:56 Specimen Type ART Sample Site L Radial pH 7.32 L Bicarbonate Actual 26.3 H Total CO2 28 Base Excess 0 O2 Saturation 82 L O2 % 21 ABG pCO2 51.2 H ABG pO2 51 L Marquez Test Positive O2 Delivery Device Room Air Radiography Diagnostic Testing: Radiology Impression Foot X-Ray 05/29/21 15:20 IMPRESSION: Gas and edema in the irregular soft tissues along the plantar surface of the mid and hindfoot consistent with recent surgery. No foreign body. There is also extensive edema around the foot and ankle. Electronically Signed: Khris Love MD at 23:13 EST Tel , Service support , Physical Exam Narrative Const alert and no apparent distress General Appearance: cooperative and comfortable Extremity no calf tenderness, negative milo and draper sign lower extremity edema left worse than right General Extremity: Negative for clubbing or cyanosis or ecchymosis. Resolved erythema or odor. No purulence. arch incision and drainage with widespread debridement and also ulcer debridement site has exposed tendons, plantar fascia band, and abductor hallucis muscle. No visualized bone directly. no calor Vasc Peripheral Pulses: posterior tibial pulses present but diminished and dorsalis pedis pulses present but diminished, normal capillary refill, no acute ischemic skin changes noted, normal temperature Const General Appearance: cooperative Extremity normal capillary refill Skin Skin Narrative: Adjacent skin is atrophic Neuro Neuro Narrative: lack of normal epicritic sensation via light touch consistent with neuropathy Assessment & Plan Assessment/Plan (1) Cellulitis of left foot: (2) Ulcer of left foot with necrosis of muscle: (3) Abscess of left foot: PLAN: I reviewed and discussed his case. He is POD #1. The following work up and care recommendations were made: Infection: Purulence, erythema and odor are resolved this morning. He is afebrile and his vital signs are stable. His leukocytosis is resolved and his white blood cell count decreased from over 20 to 12.6. His blood cultures are pending. As history of MRSA, Proteus, Enterococcus, anaerobic cocci, Bacteroides from previous culture 03/08/2021. Operating room cultures including pre and post irrigation are pending. He is on broad-spectrum IV vancomycin and Zosyn. His compromised kidney status is noted also. Postoperative x-ray also demonstrates resolution of gas that was noted on the preoperative x-ray. No new osseous destruction or acute injuries or foreign bodies were noted. This is considered a deep space infection including muscle and fascial tissue. This may require extended antibiotics and infectious disease recommendations will be appreciated. He is at risk for limb loss and ongoing systemic illness due to this condition. Staged surgical procedure may be warranted. Dressing: New dressing was applied this morning including Dakin wet-to-dry with gauze, abdominal pad, Kerlix, Kevin wraps. Photos were obtained and he was seen with wound nurse, Nicole. After continued hemostasis and resolution of infectious drainage, I would likely recommend a wound VAC. Wash: Saline irrigation was performed this morning. Offloading: To maintain a strict nonweightbearing status to left lower extremity and use assistive device. To work with PT and OT. Vascular: Arterial studies were reviewed. Showing likely adequate perfusion for healing. Right LAI is 0.99 and left 1.18. Right toe brachial index 0.76 and left 0.71. Referral to Dr. Campos for potential venous and arterial intervention was provided today. He went for consultationon 04-11-21. Will recheck duplex to make sure normal posterior tibial flow into the area of the wound. normal prior LAI noted. Edema: Kevin wrap, elevation, and dietary salt restrictions are recommended. Pain: He was premedicated this morning prior to dressing change and has morphine and oxycodone ordered if needed. Host factors: His comorbidities are noted and he is at risk for continued delayed or nonhealing. Medicine team consulted for medical management of COPD, diabetes type 2 with peripheral polyneuropathy, CKD stage III, hyperkalemia hyponatremia elevated liver function tests, hypertension, hyperlipidemia, obesity. Medical management is appreciated. Smoking and tobacco cessation is recommended. I also recommend nutritional supplementation to optimize the healing process. Discharge planning: senior living facility placement is recommended for wound care and potentially long-term antibiotics. He has demonstrated inability to maintain a nonweightbearing status and appropriately care for himself at home. I answered all of his questions. His daughter, Marivel was also included via phone to discuss his care plan this morning. Please do not hesitate to call if you have any questions. The podiatry team will continue to follow him closely while in house. Tiffany Chapman DPM, [facility] [phone]
--- NOTE | 2021-05-30 07:55 | PN.HOSP_ITS ---
Subjective Subjective Patient underwent debridement of non viable soft tissue and ulcer (excisional) left foot incision and drainage left foot by Tiffany Chapman DPM on 05/29/2021 patient seen this a.m. complains of significant pain in the left foot. Adjusted patient pain meds Objective Data Objective Data Vital Signs: Vital Signs Temp Pulse Resp BP Pulse Ox 98.9 F 72 16 139/47 H 95 05/30/21 03:46 05/30/21 03:46 05/30/21 03:46 05/30/21 03:46 05/30/21 03:46 Oxygen Flow Rate (L/min) 6 Oxygen Delivery Method High Flow Weight: 130 kg Body Mass Index (BMI) 35.6 Intake & Output: Intake and Output for Last 24 Hours 05/28/21 05/29/21 05/30/21 23:59 23:59 23:59 Intake Total 840 / 840 2355 / 2355 1850 / 1850 Output Total 500 / 500 1000 / 1000 Balance 840 / 840 1855 / 1855 850 / 850 Lab / Micro Data Result Diagrams: 05/30/21 05:25 05/30/21 05:25 Labs: Laboratory Results - last 24 hr 05/28/21 21:20: S.aureus Protein A PCR POSITIVE H, MRSA (PCR) POSITIVE H 05/29/21 05:35: Hemoglobin A1c 11.6 H 05/29/21 07:49: POC Glucose 204 H 05/29/21 14:04: POC Glucose 144 H 05/29/21 17:08: POC Glucose 133 H 05/29/21 21:56: POC Glucose 229 H 05/30/21 05:25: WBC 12.6 H, RBC 4.40 L, Hgb 12.2 L, Hct 39.7 L, MCV 90.2, MCH 27.7, MCHC 30.7 L, RDW Std Deviation 49.0 H, RDW Coeff of Darrell 14.8 H, Plt Count 177, MPV 10.8, Immature Gran % (Auto) 0.600, Neut % (Auto) 75.7 H, Lymph % (Auto) 12.6 L, [place] % (Auto) 8.7, Eos % (Auto) 2.2, Baso % (Auto) 0.2, Absolute Neuts (auto) 9.5 H, Absolute Lymphs (auto) 1.58, Nucleated RBC % 0 05/30/21 05:25: Sodium 138, Potassium 5.2 H, Chloride 102, Carbon Dioxide 30.0, Anion Gap 6, BUN 68 H, Creatinine 3.68 H, Estim Creat Clear Calc 23.28, Est GFR (MDRD) Af Amer 21 L, Est GFR (MDRD) Non-Af 18 L, BUN/Creatinine Ratio 18.5, Glucose 212 H, Calcium 8.0 L, Magnesium 2.8 H Micro: Microbiology 05/28/21 21:20 Wound - Heel, Left Gram Stain - Final 05/28/21 21:20 Wound - Heel, Left Wound Culture - Preliminary Gram negative baljit Gram positive organism 05/28/21 17:50 Nasal Secretion SARS-CoV-2 Antigen (Rapid) - Final ABG Data ABG results: ABG 05/29/21 11:56 Specimen Type ART Sample Site L Radial pH 7.32 L Bicarbonate Actual 26.3 H Total CO2 28 Base Excess 0 O2 Saturation 82 L O2 % 21 ABG pCO2 51.2 H ABG pO2 51 L Marquez Test Positive O2 Delivery Device Room Air Radiography Diagnostic Testing: Radiology Impression Foot X-Ray 05/29/21 15:20 IMPRESSION: Gas and edema in the irregular soft tissues along the plantar surface of the mid and hindfoot consistent with recent surgery. No foreign body. There is also extensive edema around the foot and ankle. Electronically Signed: Khris Love MD at 23:13 EST Tel , Service support , Physical Exam Narrative GENERAL: cooperative HEENT: Atraumatic; EYES; Anicteric, Normal Conjunctiva NECK; supple, normal thyroid, RESPIRATORY: Diminished to auscultation CARDIOVASCULAR: Regular S1 S2, GI: soft, normoactive bowel sounds, : No Renal angle tenderness; EXTREMITIES: Left foot in surgical dressing MUSCULOSKELETAL: no muscle waisting NEURO: Awake; no lateralizing signs. SKIN: No Rash PSYCH; Flat affect Assessment & Plan Assessment/Plan (1) Diabetic foot ulcer: QUALIFIERS: Diabetes mellitus type: type 2 Diabetic foot ulcer location: heel Laterality: left Non-pressure ulcer stage: with fat layer exposed Qualified Code(s): E11.621 - Type 2 diabetes mellitus with foot ulcer; L97.422 - Non-pressure chronic ulcer of left heel and midfoot with fat layer exposed PLAN: Patient is a 65-year-old gentleman with multiple comorbidities including diabetes mellitus. Polyneuropathy with recent wound debridement for chronic left heel ulcer who presented with purulent discharge with associated fever and chills 1. Sepsis (present on admission) secondary to infected diabetic foot ulcer involving the left heel (evidence elevated WBC count, fever with the presence of an infection) ? Patient apparently underwent wound debridement on 05/24/2021 presented with worsening symptoms. Patient has history of polymicrobial infection from the wound. Was started on broad-spectrum antibiotic therapy admitted to regular nursing floor. Consultation was placed to podiatry for possible I&D consult placed to ID for management of patient antibiotic therapy 05/30/2021. Patient underwent debridement of non viable soft tissue and ulcer (excisional) left foot incision and drainage left foot by Tiffany Chapman DPM on 05/29/2021 2. Hyponatremia -suspected to be secondary to hypovolemic hyponatremia patient on fluids with subsequent monitoring with daily BMP 3. PATRICK on CKD stage IIIb ? Patient baseline creatinine between 2.2-2.9. Creatinine on admission was 3.37 worsened to 3.46 on fluid with subsequent monitoring of electrolyte consult placed to nephrology 4. Hyperkalemia Secondary to patient impaired kidney function treated per protocol 5. Diabetes mellitus type II -patient's oral hypoglycemics held. Placed on long acting insulin, Accu-Cheks a.c. and at bedtime and covered with sliding scale insulin 6. Chronic hypoxic respiratory failure -secondary to COPD patient on baseline home oxygen 7. Hypertension - Blood pressure controlled, home medications continued with dose adjustment as needed 8. Dyslipidemia -Patient is on statin therapy, continued at home dose 9. Obstructive sleep apnea ? On CPAP at night plan is to continue with home statin 10. Class II obesity with BMI of 35.7 ? Weight loss advised 11. DVT prophylaxis - Lovenox Charges/Coding Visit Charges Inpatient E&M: 93934 Subs Hosp L2
[2021-05-30] MEDS: DAKIN'S SOL HALF STRENGTH (=0.25%) 1 APPLIC TOPICAL (08:20)
[2021-05-30] MEDS: Aspirin 81 MG TAB.CHEW PO (08:56)
[2021-05-30] MEDS: Carvedilol 12.5 MG Tablet PO (08:56)
[2021-05-30] MEDS: Insulin Lispro 100 UNIT/ML INSULN.PEN SC ×3 (11:32→21:17)
[2021-05-30 11:41] LABS: Bedside Glucose 211 mg/dL (70-110)
--- NOTE | 2021-05-30 11:59 | CASEMGMT ---
Social Work SW spoke w/CM, physician had said in note that pt needs SNF. SW attempted to speak w/pt, he is sleeping soundly. Pt's daughter Shyann called SW. She states she spoke w/Dr. Chapman w/pt this morning, the doctor conferenced her in when the doctor spoke to pt. She states Dr. Chapman suggested pt go to TCU and pt was agreeable. SW reviewed w/daughter the Medicare coverage for SNF. SW explained will find out if TCU can take pt. SW did explain that the length of stay in TCU is usually 30 days or less, so if pt were to need longer than that, and he does go to TCU, the social services assistant in TCU may work with them to get him transferred to another facility. SW explained if TCU cannot take pt, we can look at other facilities in the area. Daughter gave SW her email, SW emailed daughter list of snf facilities in pt's preferred geographic area that takes pt's insurance, complete with quality and resource use date. Daughter asked SW to conference her in when SW sees pt, as pt is hard of hearing and doesn't remember everything. SW explained would do so, will go again to try to speak w/pt as he was asleep earlier. KARLI called TCU, Micki will let SW know if they can take pt. SW attempted to speak w/pt, he is still sleeping soundly and did not wake for SW. SW will try again later. EVELYN Noble
--- NOTE | 2021-05-30 12:14 | PCM.CONS.R ---
Documented by User: CLARIBEL Akins 05/30/21 12:37 Assessment & Plan Assessment/Plan (1) Abscess of left foot: (2) Cellulitis of left foot: (3) PATRICK (acute kidney injury): (4) HTN (hypertension) with goal to be determined: PLAN: Patient was admitted for ulcer of left foot, cellulitis of left foot and underwent I&D of left foot on 05/29/2021. We were consulted for elevated creatinine. Unknown stage of CKD/baseline creatinine however it appears that creatinine trends have been around 2.2 to 2.9 mg/dL as of August of this year. Creatinine was 3.3 on admission and has lalita to 3.68 mg/dL today. Likely PATRICK is prerenal, possibly from infection but will rule out other causes; significant hypotension may have also contributed to rising Creatinine. Blood cultures drawn on admission and are pending. He is on Zosyn and Vanco. Patient does have history of MRSA, Proteus, Enterococcus, anaerobic cocci, Bacteroides from previous culture 03/08/2021. I have asked nursing to do bladder scan now and if volume greater than [address] [place] if patient allows. Patient did have a renal ultrasound in July 2020 which showed small irregular appearing left kidney likely due to prior partial nephrectomy, increased cortical echogenicity bilaterally may indicate medical renal disease, Right kidney measured 12.5 cm, left kidney measure 9.6 cm, no masses, stones or hydronephrosis. Obtain Renal US. Recommend continue gentle IV fluids as you are doing. He is receiving vancomycin, Vanco level is to be drawn this evening. Blood pressures were low, systolic blood pressures in the 60s yesterday, and patient received fluid bolus challenges, this may have contributed to PATRICK as well. Blood pressure improved this morning. He is on carvedilol. We will add holding parameters. His urine showed 100 of protein, will obtain urine protein creatinine ratio. At this time there is no acute indication for renal placement therapy. Though creatinine is elevated today, potassium and acid-base acceptable, patient is not hypervolemic on exam. Hopefully patient will be more awake tomorrow and will be obtain to gather more information from him such as if he is being followed by a motor vehicle dispatcher. Further orders forthcoming his hospitalization evolves. Thank you for allowing us to participate in the care of Mr. Goodrich. HPI Consult Data Date of Consult: 05/30/21 HPI Narrative HPI Narrative: JUAREZ GOODRICH, is a 65 M with past medical history significant for diabetes mellitus type 2, COPD, obesity, who has been following with wound care center for left heel ulcer. Patient was seen by visiting nurses on Friday who noted patient to have redness to left foot, patient was also complaining of worsening pain therefore he was encouraged to go to the emergency room for further evaluation and treatment. White count in emergency room 20,000. Patient was admitted for further evaluation and treatment. He did undergo I&D of left foot on 05/29. We were consulted for elevated creatinine. Information is gathered from the chart. Patient received morphine earlier this morning for pain, he is very drowsy and not answering questions at this time. He is not in any acute distress. Unknown if patient follows with nephrology. He has not been seen in our office. In reviewing past creatinine trends patient has had elevated creatinine. In August 2020 creatinine 2.1 to 2.6 mg/dL. December 19, 2020 creatinine 2.29 mg/dL. 03/14/2021 creatinine 2.93 mg/dL. On admission, 05/28/2021 creatinine 3.37 mg/dL and today, May 30 creatinine is up to 3.68 mg/dL. 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 Wears hearing aid in both ears Home Medications ascorbic acid (vitamin C) 1,000 mg PO TID 07/11/20 [History Last Taken 05/27/21] aspirin 81 mg PO DAILY@0800 07/11/20 [History Last Taken 05/27/21] atorvastatin 80 mg PO QHS 07/11/20 [History Last Taken 05/27/21] glipizide 10 mg PO DAILY 07/11/20 [History Last Taken 05/27/21] insulin glargine 35 unit SQ BREAKFAST 07/11/20 [History Last Taken 05/27/21] insulin glargine 40 unit SQ QHS 07/11/20 [History Last Taken 05/27/21] insulin lispro See Protocol SQ DAILY 07/11/20 [History Last Taken 05/27/21] magnesium oxide 500 mg PO DAILY 07/11/20 [History Last Taken 05/27/21] oxycodone-acetaminophen 1 tab PO TID 07/11/20 [History Last Taken 05/27/21] carvedilol 12.5 mg PO DAILY 08/17/20 [History Last Taken 05/27/21] cholecalciferol (vitamin D3) 125 mcg PO DAILY 05/28/21 [History Last Taken 05/27/21] Allergy/AdvReac Type Severity Reaction Status Date / Time codeine AdvReac Nausea Verified 05/28/21 14:35 promethazine [From Phenergan] AdvReac Nausea Verified 05/28/21 14:35 Family History (Updated 05/28/21 @ 18:[address] Tiffanie Carlson MD) Father CVA (cerebral vascular accident) Myocardial infarction Mother Dementia Surgical History (Updated 05/28/21 @ 20:45 by Bharati Cook) History of appendectomy History of coronary artery stent placement History of surgery on arm Hx of partial nephrectomy Previous back surgery S/P appendectomy Social History (Updated 05/28/21 @ 19:[address] Tiffanie Carlson MD) household members: none Smoking Status: Former smoker quit date: 05/19/15 Tobacco: How many years used: 50 how long ago did patient quit smoking: Smoked ~1/2 ppd x 50 years until quit. alcohol intake: never substance use type: does not use Physical Exam Narrative Const: resting quietly, no acute distress noted Cardio: S1-S2, rhythm rate regular Respiratory: Lung sounds clear anteriorly. No audible wheezes or rhonchi Abdomen: Soft rounded positive bowel sounds x4 quadrants Extremities: Trace edema noted bilateral lower legs. Kevin wrap intact to left lower leg and foot Lab / Micro Data Result Diagrams: 05/30/21 05:25 05/30/21 05:25 Labs: Laboratory Results - last 24 hr 05/28/21 21:20: S.aureus Protein A PCR POSITIVE H, MRSA (PCR) POSITIVE H 05/29/21 14:04: POC Glucose 144 H 05/29/21 17:08: POC Glucose 133 H 05/29/21 21:56: POC Glucose 229 H 05/30/21 05:25: WBC 12.6 H, RBC 4.40 L, Hgb 12.2 L, Hct 39.7 L, MCV 90.2, MCH 27.7, MCHC 30.7 L, RDW Std Deviation 49.0 H, RDW Coeff of Darrell 14.8 H, Plt Count 177, MPV 10.8, Immature Gran % (Auto) 0.600, Neut % (Auto) 75.7 H, Lymph % (Auto) 12.6 L, [place] % (Auto) 8.7, Eos % (Auto) 2.2, Baso % (Auto) 0.2, Absolute Neuts (auto) 9.5 H, Absolute Lymphs (auto) 1.58, Nucleated RBC % 0 05/30/21 05:25: Sodium 138, Potassium 5.2 H, Chloride 102, Carbon Dioxide 30.0, Anion Gap 6, BUN 68 H, Creatinine 3.68 H, Estim Creat Clear Calc 23.28, Est GFR (MDRD) Af Amer 21 L, Est GFR (MDRD) Non-Af 18 L, BUN/Creatinine Ratio 18.5, Glucose 212 H, Calcium 8.0 L, Magnesium 2.8 H 05/30/21 11:30: POC Glucose 211 H Micro: Microbiology 05/29/21 13:20 Tissue - Left Foot Gram Stain - Final 05/29/21 13:20 Tissue - Left Foot Gram Stain - Final 05/29/21 13:20 Tissue - Left Foot Wound Culture - Preliminary Mixed Gram Pos & Gram Neg Org 05/28/21 21:20 Wound - Heel, Left Gram Stain - Final 05/28/21 21:20 Wound - Heel, Left Wound Culture - Preliminary Klebsiella oxytoca Gram negative baljit Gram Positive Cocci Radiology Impression Foot X-Ray 05/29/21 15:20 IMPRESSION: Gas and edema in the irregular soft tissues along the plantar surface of the mid and hindfoot consistent with recent surgery. No foreign body. There is also extensive edema around the foot and ankle. Electronically Signed: Juarez Love MD at 23:13 EST Tel , Service support , Documented by User: Dr. Shazia Catalan MD 05/30/21 18:08 Assessment & Plan Assessment/Plan (1) PATRICK (acute kidney injury): PLAN: Pt seen and examined. Agree with BLENDING LINE ATTENDANT's note. Suspect PATRICK is prerenal in setting of CKD. Agree with IVF. Will also check urine indices, renal US, and recheck renal function in am. 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 Wears hearing aid in both ears Home Medications ascorbic acid (vitamin C) 1,000 mg PO TID 07/11/20 [History Last Taken 05/27/21] aspirin 81 mg PO DAILY@0800 07/11/20 [History Last Taken 05/27/21] atorvastatin 80 mg PO QHS 07/11/20 [History Last Taken 05/27/21] glipizide 10 mg PO DAILY 07/11/20 [History Last Taken 05/27/21] insulin glargine 35 unit SQ BREAKFAST 07/11/20 [History Last Taken 05/27/21] insulin glargine 40 unit SQ QHS 07/11/20 [History Last Taken 05/27/21] insulin lispro See Protocol SQ DAILY 07/11/20 [History Last Taken 05/27/21] magnesium oxide 500 mg PO DAILY 07/11/20 [History Last Taken 05/27/21] oxycodone-acetaminophen 1 tab PO TID 07/11/20 [History Last Taken 05/27/21] carvedilol 12.5 mg PO DAILY 08/17/20 [History Last Taken 05/27/21] cholecalciferol (vitamin D3) 125 mcg PO DAILY 05/28/21 [History Last Taken 05/27/21] Allergy/AdvReac Type Severity Reaction Status Date / Time codeine AdvReac Nausea Verified 05/28/21 14:35 promethazine [From Phenergan] AdvReac Nausea Verified 05/28/21 14:35 Family History (Updated 05/28/21 @ 18:[address] Tiffanie Carlson MD) Father CVA (cerebral vascular accident) Myocardial infarction Mother Dementia Surgical History (Updated 05/28/21 @ 20:45 by Bharati Cook) History of appendectomy History of coronary artery stent placement History of surgery on arm Hx of partial nephrectomy Previous back surgery S/P appendectomy Social History (Updated 05/28/21 @ 19:[address] Tiffanie Carlson MD) household members: none Smoking Status: Former smoker quit date: 05/19/15 Tobacco: How many years used: 50 how long ago did patient quit smoking: Smoked ~1/2 ppd x 50 years until quit. alcohol intake: never substance use type: does not use Lab / Micro Data Result Diagrams: 05/30/21 05:25 05/30/21 05:25
[2021-05-30 13:13] LABS: Pathologist Review Reviewed
--- NOTE | 2021-05-30 15:34 | CASEMGMT ---
Social Work SW spoke w/Micki in TCU, they can take pt when ready. SW spoke w/pt in room, called daughter Shyann on speaker phone. SW spoke w/pt about discharge plan for pt to go to TCU, as discussed with the doctor this morning. Pt is in agreement with the plan. SW explained to pt and daughter that TCU can take pt when pt is ready. Both in agreement. Daughter plans to bring pt's bipap into the hospital tomorrow. SW will continue to follow. EVELYN Noble
[2021-05-30] MEDS: oxyCODONE 5 MG Tablet 10 MG PO ×2 (15:36→21:16)
[2021-05-30] MEDS: Juven (unflavored) Packet 1 PACKET PO (17:21)
[2021-05-30 17:30] LABS: Bedside Glucose 218 mg/dL (70-110)
[2021-05-30 17:47] LABS: Vancomycin, Trough Level 17.6 ug/mL (5.0-15.0)
--- NOTE | 2021-05-30 20:07 | PCM.RX.CS ---
Consult Pharmacy has been consulted to manage selected antiobiotic: Vancomycin Type of Consult: Follow-up Labs: Sodium 138 mmol/L (136-145) 05/30/21 05:25 Potassium 5.2 mmol/L (3.5-5.1) H 05/30/21 05:25 Chloride 102 mmol/L (98-107) 05/30/21 05:25 Carbon Dioxide 30.0 mmol/L (21.0-32.0) 05/30/21 05:25 Anion Gap 6 (5-15) 05/30/21 05:25 BUN 68 mg/dL (7-18) H 05/30/21 05:25 Creatinine 3.68 mg/dL (0.70-1.30) H 05/30/21 05:25 Est GFR (MDRD) Af Amer 21 mL/min (>60) L 05/30/21 05:25 Est GFR (MDRD) Non-Af 18 mL/min (>60) L 05/30/21 05:25 BUN/Creatinine Ratio 18.5 RATIO (10-20) 05/30/21 05:25 Glucose 212 mg/dL (74-106) H 05/30/21 05:25 Vancomycin Trough 17.6 ug/mL (5.0-15.0) H 05/30/21 16:40 Microbiology: Microbiology 05/29/21 13:20 Tissue - Left Foot Gram Stain - Final 05/29/21 13:20 Tissue - Left Foot Gram Stain - Final 05/29/21 13:20 Tissue - Left Foot Wound Culture - Preliminary Mixed Gram Pos & Gram Neg Org 05/28/21 21:20 Wound - Heel, Left Gram Stain - Final 05/28/21 21:20 Wound - Heel, Left Wound Culture - Preliminary Klebsiella oxytoca Gram negative baljit Gram Positive Cocci 05/28/21 17:50 Nasal Secretion SARS-CoV-2 Antigen (Rapid) - Final Goal Trough: 15-20 mcg/mL Pharmacy Plan for Drug Dosing: VANCOMYCIN LEVEL RECEIVED Current Vancomycin Dose: 1250MG IV Q24H Number of Doses Received: 3 Vancomycin Level: 17.6 Hours Since Last Dose: 23.5 Renal Function: 3.68 Renal Function Trend: STABLE Lab/Micro: WCx growing GPC Vancomycin Plan/Comments: Patient had a trough draw and is within goal range of 15-20. Will continue current dose and obtain a trough in another 3 days to assess dosing at that time. Pending Level: 06/02/21 @1837 Pharmacy Service will continue to monitor and adjust dosing as required.
[2021-05-30 20:28] LABS: Color, Urine Yellow (Yellow); Glucose, Dipstick Normal (Normal); Ketone-Dipstick Negative (Negative); Leukocyte Esterase-Dipstick Negative /ul (Negative); Nitrite-Dipstick Negative (Negative); Occult Blood-Urine 25 /ul (Negative); Protein-Dipstick 30 mg/dl (Negative); Specific Gravity, Urine 1.015 (1.002-1.030); Urine Bilirubin Dipstick Negative (Negative); Urine Clarity Clear (Clear); Urine Urobilinogen Normal (Normal)
[2021-05-30 20:52] LABS: Urine Sodium 56 mmol/L (Not Establ.)
[2021-05-30 21:03] LABS: Protein, Urine (Random) 91.4 mg/dL (<11.9); Protein:Creat Ratio 1141 mg/g CRE (0-200)
[2021-05-30] MEDS: Acetaminophen 325 MG Tablet 650 MG PO (21:16)
[2021-05-30] MEDS: Atorvastatin Calcium 80 MG Tablet PO (21:18)
[2021-05-30 21:36] LABS: Bedside Glucose 267 mg/dL (70-110)
[2021-05-30] MEDS: Mag Hydrox/Al Hydrox/Simeth 30 ML UDC 15 ML PO (23:22)
[2021-05-31] MEDS: Ondansetron 4 MG/2 ML Vial IV (03:15)
[2021-05-31] MEDS: Acetaminophen 325 MG Tablet 650 MG PO (03:16)
[2021-05-31] MEDS: oxyCODONE 5 MG Tablet 10 MG PO (03:16)
[2021-05-31 03:20] VITALS: BP 133/63; PULSE 57; RESP 18; TEMP 36.6; O2SAT 95
[2021-05-31] MEDS: Enoxaparin 30 MG/0.3 ML Syringe SC (05:20)
[2021-05-31 06:31] LABS: Absolute Lymphocyte Count 1.03 X10^3/uL (0.83-4.51); Absolute Neutrophil Count 6.2 X10^3/uL (2.0-7.7); Basophil# 0.03 X10^3/uL; Basophil% 0.4 % (0-1); Eosinophil# 0.32 X10^3/uL; Eosinophils% 3.9 % (0-5); Hemoglobin 12.1 g/dL (13.0-16.5); Lymphocyte # 1.03 X10^3/ul (0.83-4.51); Lymphocyte % 12.4 % (19-41); Mean Corp Hgb Conc 29.5 g/dL (32-36); Mean Corpuscular Hgb 27.1 pg (27.0-32.0); Mean Corpuscular Volume 91.7 fL (80-94); Mean Platelet Vol. 10.8 fl (6.2-12.0); Monocyte% 8.4 % (0-10); NRBC Flagged by Analyzer 0 % (0-5); Neutrophil # 6.17 X10^3/uL (2.7-7.7); Neutrophil % 74.2 % (47-70); Platelet Count 214 K/mm3 (150-450); RBC Distribution Width CV 14.6 % (11.6-14.6); RBC Distribution Width SD 49.4 fl (35.1-43.9); Red Blood Count 4.47 M/mm3 (4.6-6.2); White Blood Count 8.3 K/mm3 (4.4-11.0)
[2021-05-31] MEDS: Insulin Lispro 100 UNIT/ML INSULN.PEN SC ×4 (06:43→20:38)
[2021-05-31 06:50] LABS: Bedside Glucose 270 mg/dL (70-110)
[2021-05-31 06:59] LABS: Anion Gap 1 (5-15); BUN 70 mg/dL (7-18); BUN/Creat Ratio 22.7 RATIO (10-20); Calcium,Total 8.7 mg/dL (8.5-10.1); Chloride 105 mmol/L (98-107); Creatinine, Serum 3.09 mg/dL (0.70-1.30); EST Glomerular Filtration Rate 22 mL/min (>60); Est Glom Filt Rate - Afr Amer 26 mL/min (>60); Estimated Creatinine Clearance 27.73 ml/min; Glucose 287 mg/dL (74-106); Potassium 5.4 mmol/L (3.5-5.1); Sodium Level 135 mmol/L (136-145)
[2021-05-31 07:26] VITALS: BP 135/99; PULSE 55; RESP 18; TEMP 36.6; O2SAT 99
[2021-05-31] MEDS: Juven (unflavored) Packet 1 PACKET PO ×2 (07:40→16:53)
[2021-05-31] MEDS: DAKIN'S SOL HALF STRENGTH (=0.25%) 1 APPLIC TOPICAL (07:40)
[2021-05-31] MEDS: Aspirin 81 MG TAB.CHEW PO (07:40)
--- NOTE | 2021-05-31 07:49 | PN.HOSP_ITS ---
Subjective Subjective Patient seen pain is relatively well controlled. Wound cultures so far positive for Klebsiella oxytoca addition to Gram negative rods and gram-positive cocci final identification and sensitivities pending Objective Data Objective Data Vital Signs: Vital Signs Temp Pulse Resp BP Pulse Ox 97.8 F 55 L 18 135/99 H 99 05/31/21 07:26 05/31/21 07:26 05/31/21 07:26 05/31/21 07:26 05/31/21 07:26 Oxygen Flow Rate (L/min) 6 Oxygen Delivery Method High Flow Weight: 130 kg Body Mass Index (BMI) 35.6 Intake & Output: Intake and Output for Last 24 Hours 05/29/21 05/30/21 05/31/21 23:59 23:59 23:59 Intake Total 2355 / 2355 3175 / 3175 300 / 300 Output Total 500 / 500 1600 / 1600 1000 / 1000 Balance 1855 / 1855 1575 / 1575 -700 / -700 Lab / Micro Data Result Diagrams: 05/31/21 05:45 05/31/21 05:45 Labs: Laboratory Results - last 24 hr 05/28/21 21:20: S.aureus Protein A PCR POSITIVE H, MRSA (PCR) POSITIVE H 05/29/21 05:35: Diff Path Review Reviewed 05/30/21 11:30: POC Glucose 211 H 05/30/21 16:35: Urine Color Yellow, Urine Clarity Clear, Urine pH 5.0, Ur Specific [place] 1.015, Urine Protein 30 H, Urine Glucose (UA) Normal, Urine Ketones Negative, Urine Occult Blood 25 H, Urine Nitrite Negative, Urine Bilirubin Negative, Urine Urobilinogen Normal, Ur Leukocyte Esterase Negative 05/30/21 16:35: U Random Total Protein 91.4 H, Urine Creatinine 80.10, Protein/Creatinin Ratio 1141 H 05/30/21 16:35: Urine Creatinine 87.80 05/30/21 16:35: Ur Random Sodium 56 05/30/21 16:40: Vancomycin Trough 17.6 H 05/30/21 17:13: POC Glucose 218 H 05/30/21 21:15: POC Glucose 267 H 05/31/21 05:45: WBC 8.3, RBC 4.47 L, Hgb 12.1 L, Hct 41.0, MCV 91.7, MCH 27.1, MCHC 29.5 L, RDW Std Deviation 49.4 H, RDW Coeff of Darrell 14.6, Plt Count 214, MPV 10.8, Immature Gran % (Auto) 0.700, Neut % (Auto) 74.2 H, Lymph % (Auto) 12.4 L, [place] % (Auto) 8.4, Eos % (Auto) 3.9, Baso % (Auto) 0.4, Absolute Neuts (auto) 6.2, Absolute Lymphs (auto) 1.03, Nucleated RBC % 0 05/31/21 05:45: Sodium 135 L, Potassium 5.4 H, Chloride 105, Carbon Dioxide 29.0, Anion Gap 1 L, BUN 70 H, Creatinine 3.09 H, Estim Creat Clear Calc 27.73, Est GFR (MDRD) Af Amer 26 L, Est GFR (MDRD) Non-Af 22 L, BUN/Creatinine Ratio 22.7 H, Glucose 287 H, Calcium 8.7 05/31/21 06:40: POC Glucose 270 H Micro: Microbiology 05/29/21 13:20 Tissue - Left Foot Gram Stain - Final 05/29/21 13:20 Tissue - Left Foot Gram Stain - Final 05/29/21 13:20 Tissue - Left Foot Wound Culture - Preliminary Mixed Gram Pos & Gram Neg Org 05/28/21 21:20 Wound - Heel, Left Gram Stain - Final 05/28/21 21:20 Wound - Heel, Left Wound Culture - Preliminary Klebsiella oxytoca Gram negative baljit Gram Positive Cocci 05/28/21 17:50 Nasal Secretion SARS-CoV-2 Antigen (Rapid) - Final Physical Exam Narrative GENERAL: cooperative HEENT: Atraumatic; EYES; Anicteric, Normal Conjunctiva NECK; supple, normal thyroid, RESPIRATORY: Diminished to auscultation CARDIOVASCULAR: Regular S1 S2, GI: soft, normoactive bowel sounds, : No Renal angle tenderness; EXTREMITIES: Left foot in surgical dressing MUSCULOSKELETAL: no muscle waisting NEURO: Awake; no lateralizing signs. SKIN: No Rash PSYCH; Flat affect Assessment & Plan Assessment/Plan (1) Diabetic foot ulcer: QUALIFIERS: Diabetes mellitus type: type 2 Diabetic foot ulcer location: heel Laterality: left Non-pressure ulcer stage: with fat layer exposed Qualified Code(s): E11.621 - Type 2 diabetes mellitus with foot ulcer; L97.422 - Non-pressure chronic ulcer of left heel and midfoot with fat layer exposed PLAN: Patient is a 65-year-old gentleman with multiple comorbidities including diabetes mellitus. Polyneuropathy with recent wound debridement for chronic left heel ulcer who presented with purulent discharge with associated fever and chills 1. Sepsis (present on admission) secondary to infected diabetic foot ulcer involving the left heel (evidence elevated WBC count, fever with the presence of an infection) ? Patient apparently underwent wound debridement on 05/24/2021 presented with worsening symptoms. Patient has history of polymicrobial infection from the wound. Was started on broad-spectrum antibiotic therapy admitted to regular nursing floor. Consultation was placed to podiatry for possible I&D consult placed to ID for management of patient antibiotic therapy 05/30/2021. Patient underwent debridement of non viable soft tissue and ulcer (ex cisional) left foot incision and drainage left foot by Tiffany Chapman DPM on 05/29/2021 -05/31/2021;Patient seen pain is relatively well controlled. Wound cultures so far positive for Klebsiella oxytoca addition to Gram negative rods and gram- positive cocci final identification and sensitivities pending 2. Hyponatremia -suspected to be secondary to hypovolemic hyponatremia patient on fluids with subsequent monitoring with daily BMP 3. PATRICK on CKD stage IIIb ? Patient baseline creatinine between 2.2-2.9. Creatinine on admission was 3.37 worsened to 3.46 on fluid with subsequent monitoring of electrolyte consult placed to nephrology 4. Hyperkalemia Secondary to patient impaired kidney function treated per protocol 5. Diabetes mellitus type II -patient's oral hypoglycemics held. Placed on long acting insulin, Accu-Cheks a.c. and at bedtime and covered with sliding scale insulin 6. Chronic hypoxic respiratory failure -secondary to COPD patient on baseline home oxygen 7. Hypertension - Blood pressure controlled, home medications continued with dose adjustment as needed 8. Dyslipidemia -Patient is on statin therapy, continued at home dose 9. Obstructive sleep apnea ? On CPAP at night plan is to continue with home statin 10. Class II obesity with BMI of 35.7 ? Weight loss advised 11. DVT prophylaxis - Lovenox Charges/Coding Visit Charges Inpatient E&M: 68223 Subs Hosp L2
--- NOTE | 2021-05-31 09:55 | PN.RENAL_ITS ---
Subjective Subjective Following for acute kidney injury on chronic kidney disease stage IV. The patient is very hard of hearing. However, he denies chest pain, shortness of breath, or nausea. Appetite is still poor. Objective Data Objective Data Vital Signs: Vital Signs Temp Pulse Resp BP Pulse Ox 97.8 F 55 L 18 135/99 H 99 05/31/21 07:26 05/31/21 07:26 05/31/21 07:26 05/31/21 07:26 05/31/21 07:26 Oxygen Flow Rate (L/min) 6 Oxygen Delivery Method High Flow Weight: 130 kg Body Mass Index (BMI) 35.6 Intake & Output: Intake and Output for Last 24 Hours 05/29/21 05/30/21 05/31/21 23:59 23:59 23:59 Intake Total 2355 / 2355 3175 / 3175 300 / 300 Output Total 500 / 500 1600 / 1600 1000 / 1000 Balance 1855 / 1855 1575 / 1575 -700 / -700 Lab / Micro Data Result Diagrams: 05/31/21 05:45 05/31/21 05:45 Labs: Laboratory Results - last 24 hr 05/29/21 05:35: Diff Path Review Reviewed 05/30/21 11:30: POC Glucose 211 H 05/30/21 16:35: Urine Color Yellow, Urine Clarity Clear, Urine pH 5.0, Ur Specific [place] 1.015, Urine Protein 30 H, Urine Glucose (UA) Normal, Urine Ketones Negative, Urine Occult Blood 25 H, Urine Nitrite Negative, Urine Bilirubin Negative, Urine Urobilinogen Normal, Ur Leukocyte Esterase Negative 05/30/21 16:35: U Random Total Protein 91.4 H, Urine Creatinine 80.10, Protein/Creatinin Ratio 1141 H 05/30/21 16:35: Urine Creatinine 87.80 05/30/21 16:35: Ur Random Sodium 56 05/30/21 16:40: Vancomycin Trough 17.6 H 05/30/21 17:13: POC Glucose 218 H 05/30/21 21:15: POC Glucose 267 H 05/31/21 05:45: WBC 8.3, RBC 4.47 L, Hgb 12.1 L, Hct 41.0, MCV 91.7, MCH 27.1, MCHC 29.5 L, RDW Std Deviation 49.4 H, RDW Coeff of Darrell 14.6, Plt Count 214, MPV 10.8, Immature Gran % (Auto) 0.700, Neut % (Auto) 74.2 H, Lymph % (Auto) 12.4 L, [place] % (Auto) 8.4, Eos % (Auto) 3.9, Baso % (Auto) 0.4, Absolute Neuts (auto) 6.2, Absolute Lymphs (auto) 1.03, Nucleated RBC % 0 05/31/21 05:45: Sodium 135 L, Potassium 5.4 H, Chloride 105, Carbon Dioxide 29.0, Anion Gap 1 L, BUN 70 H, Creatinine 3.09 H, Estim Creat Clear Calc 27.73, Est GFR (MDRD) Af Amer 26 L, Est GFR (MDRD) Non-Af 22 L, BUN/Creatinine Ratio 22.7 H, Glucose 287 H, Calcium 8.7 05/31/21 06:40: POC Glucose 270 H Micro: Microbiology 05/28/21 16:29 Blood Culture (Wb) - Anticubital Left Blood Culture - Preliminary No growth in 48 hours. 05/28/21 16:29 Blood Culture (Wb) - Left Hand Blood Culture - Preliminary No growth in 48 hours. 05/29/21 13:20 Tissue - Left Foot Gram Stain - Final 05/29/21 13:20 Tissue - Left Foot Wound Culture - Preliminary Staphylococcus species GPC Poss Enterococcus sp GNR lactose chemicals fermentation operator Gram negative baljit 05/29/21 13:20 Tissue - Left Foot Gram Stain - Final 05/29/21 13:20 Tissue - Left Foot Wound Culture - Preliminary Gram negative baljit Gram negative baljit#2 Gram negative baljit#3 Gram Positive Cocci 05/28/21 21:20 Wound - Heel, Left Gram Stain - Final 05/28/21 21:20 Wound - Heel, Left Wound Culture - Final Klebsiella oxytoca Proteus mirabilis Meth. resistant Staph. aureus 05/28/21 17:50 Nasal Secretion SARS-CoV-2 Antigen (Rapid) - Final Physical Exam Narrative Const: resting quietly, no acute distress noted Cardio: S1-S2, rhythm rate regular Respiratory: Lung sounds clear anteriorly. No audible wheezes or rhonchi Abdomen: Soft rounded positive bowel sounds x4 quadrants Extremities: No edema. Assessment & Plan Assessment/Plan (1) PATRICK (acute kidney injury): PLAN: - The patient has underlying chronic kidney disease (see below). -PATRICK is likely prerenal. So far, serum creatinine has peaked at 3.68 mg/dL on 05/30/2022. -Serum creatinine is better today at 3.09 mg/dL which is close to his usual baseline serum creatinine of around 2.7 to 2.9 mg/dL. -Since appetite is still marginal, I will continue IV fluid for now. There is no signs of volume overload on my exam. -Recheck renal function again tomorrow. -Current medications are reviewed and are all appropriately dosed for his estimated creatinine clearance. (2) Chronic kidney disease, stage 4 (severe): PLAN: - The patient has underlying stage IV CKD. Serum creatinine is around 2.7-2.9 at baseline. -The patient likely has diabetic kidney disease. (3) Hyperkalemia: PLAN: - Potassium level slightly high at 5.4 mmol/L. -This is likely due to PATRICK/CKD and hyperglycemia. -There is no need for sodium polystyrene sulfonate from my standpoint since hyperkalemia is mild. -Correcting hyperglycemia should bring down the potassium to normal range. (4) Hyponatremia: PLAN: - Serum sodium is slightly low at 135 mmol/L today. -The patient is asymptomatic from hyponatremia. -Part of the hyponatremia can also be due to hyperglycemia. -Correcting hyperglycemia should bring the serum sodium down to normal value. (5) Sepsis: PLAN: - The patient is being treated for diabetic foot infection. Treatment as per hospital medicine and infectious disease service.
--- NOTE | 2021-05-31 10:07 | PCM.PN.ID ---
Physical Exam Narrative Feeling better, foot sore, no fever Const no apparent distress General Appearance: cooperative Resp normal air movement and clear to auscultation bilaterally Cardio regular rate and regular rhythm GI soft to palpation, non-tender and non-distended Skin Skin Narrative: foot wrapped ID ID: Route of nutrition/ use of supplements: [] Nutritional Intake: [] IV Site: [] Gonzales Catheter: [] Assessment & Plan Assessment/Plan (1) Cellulitis of left foot: (2) Sepsis: PLAN: Sepsis with fever, leukocytosis, PATRICK on CKD, due to L foot infected ulcer. Has history of MRSA, Proteus, Enterococcus, anaerobic cocci, Bacteroides from previous culture 03/08/2021. At that time he finished full course of oral antibiotics, Augmentin and Bactrim. Wound cx here with klebs, proteus, MRSA. MRSA pcr (+). Cont on vanc/zosyn. Taken to OR 05/29 with heavy pus drained, surg cx pending, did see sinus tract down to periostal level. Refuses covid vaccine. Cr better today. Will follow
--- NOTE | 2021-05-31 10:24 | CASEMGMT ---
Addendum entered by Mikayla Chatterjee 05/31/21 11:13: Social Work Daughter Shyann here, asked to speak w/SW. SW spoke w/daughter and pt in room. Daughter asked about pt getting moved to TCU and when that may happen. SW explained that it does not seem that pt will be moved today, and that we will let her know when pt gets moved. Daughter also asked about medications, how we would check that he is on the right meds. RN in the room, SW directed daughter to speak w/the nurse. She also asked about a PICC line, if pt would be getting this for the antibiotics. Both SW and RN told daughter we anticipate pt getting a PICC line as it seems he will need IV antibiotics. Pt and daughter both asked who will decide when he is ready to be discharged. SW explained it will likely be the infectious disease doctor with the podiatry doctor. SW will continue to follow, plan continues to be for pt to go to TCU when he is ready. EVELYN Noble Original Note: Social Work It is anticipated pt will be ready for discharge tomorrow. SW called Micki in TCU, let her know. KARLI will continue to follow. EVELYN Noble
[2021-05-31] MEDS: 0.9% Normal Saline 1,000 ML 100 ML IV (11:01)
[2021-05-31] MEDS: Carvedilol 12.5 MG Tablet PO (11:02)
--- NOTE | 2021-05-31 11:46 | PN_ITS ---
Subjective Subjective This 65 year old male with diabetes and other comorbidities was seen bedside for POD#2 for left lower extremity incision and drainage with widespread debridement of the heel and arch abscess including tendon sheath. He denies fever, chills, nausea, vomiting. His pain is controlled at this time. He reports left leg pain and swelling. Objective Data Objective Data Vital Signs: Vital Signs Temp Pulse Resp BP Pulse Ox 97.8 F 55 L 18 135/99 H 99 05/31/21 07:26 05/31/21 07:26 05/31/21 07:26 05/31/21 07:26 05/31/21 07:26 Oxygen Flow Rate (L/min) 6 Oxygen Delivery Method High Flow Weight: 130 kg Body Mass Index (BMI) 35.6 Intake & Output: Intake and Output for Last 24 Hours 05/29/21 05/30/21 05/31/21 23:59 23:59 23:59 Intake Total 2355 / 2355 3175 / 3175 1300 / 1300 Output Total 500 / 500 1600 / 1600 1000 / 1000 Balance 1855 / 1855 1575 / 1575 300 / 300 Lab / Micro Data Result Diagrams: 05/31/21 05:45 05/31/21 05:45 Labs: Laboratory Results - last 24 hr 05/29/21 05:35: Diff Path Review Reviewed 05/30/21 16:35: Urine Color Yellow, Urine Clarity Clear, Urine pH 5.0, Ur Specific [place] 1.015, Urine Protein 30 H, Urine Glucose (UA) Normal, Urine Ketones Negative, Urine Occult Blood 25 H, Urine Nitrite Negative, Urine Bilirubin Negative, Urine Urobilinogen Normal, Ur Leukocyte Esterase Negative 05/30/21 16:35: U Random Total Protein 91.4 H, Urine Creatinine 80.10, Protein/Creatinin Ratio 1141 H 05/30/21 16:35: Urine Creatinine 87.80 05/30/21 16:35: Ur Random Sodium 56 05/30/21 16:40: Vancomycin Trough 17.6 H 05/30/21 17:13: POC Glucose 218 H 05/30/21 21:15: POC Glucose 267 H 05/31/21 05:45: WBC 8.3, RBC 4.47 L, Hgb 12.1 L, Hct 41.0, MCV 91.7, MCH 27.1, MCHC 29.5 L, RDW Std Deviation 49.4 H, RDW Coeff of Darrell 14.6, Plt Count 214, MPV 10.8, Immature Gran % (Auto) 0.700, Neut % (Auto) 74.2 H, Lymph % (Auto) 12.4 L, [place] % (Auto) 8.4, Eos % (Auto) 3.9, Baso % (Auto) 0.4, Absolute Neuts (auto) 6.2, Absolute Lymphs (auto) 1.03, Nucleated RBC % 0 05/31/21 05:45: Sodium 135 L, Potassium 5.4 H, Chloride 105, Carbon Dioxide 29.0, Anion Gap 1 L, BUN 70 H, Creatinine 3.09 H, Estim Creat Clear Calc 27.73, Est GFR (MDRD) Af Amer 26 L, Est GFR (MDRD) Non-Af 22 L, BUN/Creatinine Ratio 22.7 H, Glucose 287 H, Calcium 8.7 05/31/21 06:40: POC Glucose 270 H Micro: Microbiology 05/29/21 13:20 Tissue - Left Foot Gram Stain - Final 05/29/21 13:20 Tissue - Left Foot Wound Culture - Preliminary Gram negative baljit Gram negative baljit#2 Gram negative baljit#3 Gram Positive Cocci 05/29/21 13:20 Tissue - Left Foot Anaerobic Culture - Preliminary 05/29/21 13:20 Tissue - Left Foot Gram Stain - Final 05/29/21 13:20 Tissue - Left Foot Wound Culture - Preliminary Staphylococcus species GPC Poss Enterococcus sp GNR lactose ice cream freezer assistant Gram negative baljit 05/29/21 13:20 Tissue - Left Foot Anaerobic Culture - Preliminary 05/28/21 16:29 Blood Culture (Wb) - Anticubital Left Blood Culture - Preliminary No growth in 48 hours. 05/28/21 16:29 Blood Culture (Wb) - Left Hand Blood Culture - Preliminary No growth in 48 hours. 05/28/21 21:20 Wound - Heel, Left Gram Stain - Final 05/28/21 21:20 Wound - Heel, Left Wound Culture - Final Klebsiella oxytoca Proteus mirabilis Meth. resistant Staph. aureus 05/28/21 17:50 Nasal Secretion SARS-CoV-2 Antigen (Rapid) - Final Physical Exam Narrative Const alert and no apparent distress General Appearance: cooperative and comfortable Extremity left calf tenderness on palpation with increased edema to leg and thigh lower extremity edema left worse than right. no streaking or odor. the dressing is clean, dry, intact to left lower extremity. compartments remain soft to palpate. no fluctuance or bogginess on palpation to left lower extremity General Extremity: Negative for clubbing or cyanosis to digits. Vasc normal capillary refill, no acute ischemic skin changes noted, normal temperature Extremity General Extremity: edema left lower extremity (Pedal to proximal dempsey, nonpitting) Skin Skin Narrative: Wound Narrative: Neuro Neuro Narrative: lack of normal epicritic sensation via light touch consistent with neuropathy Assessment & Plan Assessment/Plan (1) Abscess of left foot: (2) Ulcer of left foot with necrosis of muscle: (3) Cellulitis of left foot: PLAN: I reviewed and discussed his case. He is POD #2. The following work up and care recommendations were made: Infection: clinical improvement noted. He is afebrile and his vital signs are stable. His leukocytosis is resolved and his white blood cell count decreased from over 20 to 12.6 to 8.3. His blood cultures are pending. He has history of MRSA, Proteus, Enterococcus, anaerobic cocci, Bacteroides from previous culture 03/08/2021 also. Wound cx during hospital admission now with klebs, proteus, MRSA. MRSA pcr (+). Cont on vanc/zosyn. Dressing: New dressing was applied this morning including Dakin wet-to-dry with gauze, abdominal pad, Kerlix, Kevin wraps. Offloading: To maintain a strict nonweightbearing status to left lower extremity and use assistive device. To work with PT and OT. Vascular: Arterial studies were reviewed. Showing likely adequate perfusion for healing. Right LAI is 0.99 and left 1.18. Right toe brachial index 0.76 and left 0.71. Referral to Dr. Campos for potential venous and arterial intervention was provided today. He went for consultationon 04-11-21. Will recheck duplex to make sure normal posterior tibial flow into the area of the wound. normal prior LAI noted. Edema: Kevin wrap, elevation, and dietary salt restrictions are recommended. Venous doppler ordered to rule out DVT; result pending. Pain: controlled with pain medication prn morphine and oxycodone. Host factors: His comorbidities are noted and he is at risk for continued delayed or nonhealing. Medicine team consulted for medical management of COPD, diabetes type 2 with peripheral polyneuropathy, CKD stage III, hyperkalemia hyponatremia elevated liver function tests, hypertension, hyperlipidemia, obesity. Medical management is appreciated. Smoking and tobacco cessation is recommended. To continue nutritional supplementation to optimize the healing process. Discharge planning: correction facility placement is recommended for wound care and potentially long-term antibiotics. He has demonstrated inability to maintain a nonweightbearing status and appropriately care for himself at home. I answered all of his questions. The podiatry team will continue to follow him closely while in house. Tiffany Chapman DPM, [facility] [phone]
--- NOTE | 2021-05-31 11:48 | VDLE_ITS ---
Reason For Study: pain Procedure LEFT This is a venous duplex using B-mode, color GSV is normal. flow and spectral Doppler. CFV is compressible, spontaneous, phasic, Exam performed portable in patient room. competent, and demonstrates normal The exam was abbreviated due to the COVID 19 augmentation. protocol. FV is compressible, spontaneous, phasic, The exam was diagnostic. competent and demonstrates normal A preliminary report was called and/or faxed augmentation. to [employer] furnace charger. POP V is compressible, spontaneous, phasic, competent and demonstrates normal augmentation. T/P Trunk is compressible. PTV is compressible. LT PerV is compressible. VL/Venous Duplex US, Unilateral Interpretation Summary There is no evidence of left lower extremity deep vein thrombosis. Left great s aphenous vein appears patent and compressible segmentally. Abbreviated COVID-19 protocol utilized Ordering Physician: Tiffany Chapman Performed By: Brayan Fox RVT
--- NOTE | 2021-05-31 14:03 | ST.MBS ---
Modified Barium Swallow - Patient Information Study Date: 05/31/21 Study Time: 12:00 Direct Billable Minutes: 95 Total Minutes procedure & reportin Diagnosis: HTN (I10), Suspected COPD (J44.9) Referring Physician: Nick Brambila Reason for Referral: Rule out risk for silent aspiration due to current pneumonia and suspected COPD. Medical History: Khris is a 65 M who presented to [facility] 05/28/2021 with PMH of CKD stage III, COPD, obesity, diabetes type 2 with peripheral polyneuropathy. He is being followed in the wound care center by Dr. Chan for chronic left heel ulceration. Last visit to the wound care center was 05/23/2021 where he underwent debridement of left heel ulceration. He states over the weekend after visiting nursing had left for the day that he began to develop redness and increasing pain in his left foot, and that over the weekend some purulent drainage began to emerge from the site and the redness spread proximally up the leg. He was seen by visiting nursing on Friday who recommended he go to the ED. Pt admitted for management of foot ulcer and pneumonia. 05/28/2021 Chest Xray IMPRESSION: Infiltrates in the mid and lower lungs worrisome for pneumonia. Pt underwent surgery 05/29/2020 for debridement of non viable soft tissue and ulcer (excisional) left foot incision and drainage left foot. Pt referred for speech consult to address physician concerns for swallowing difficulty. Pt recommended for regular textures / thin liquids with reflux precautions and recommendation for MBS study to objectively assess swallow function and rule out risk for silent aspiration due to hx of COPD and current pneumonia. Medical History (Updated 05/29/21 @ 09:[address] 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 Wears hearing aid in both ears Current Diet Ordered: Regular Textures / Thin Liquids Dentition: WNL Mental Status: WNL Respiratory Status: Oxygenating on 4L/M nasal cannula - 6L via nasal cannula - Penetration-Aspiration Scale Penetration-Aspiration Scale: OBJECTIVE ASSESSMENT OF SWALLOW FUNCTION (QUANTITATIVE ? PER TRIAL): PENETRATION / ASPIRATION SCALE (FRIEDMAN): 1 = does not enter airway 2 = enters airway/above vocal folds/ejected 3 = enters airway/above vocal folds/not ejected 4 = enters airway/contacts vocal folds/ejected 5 = enters airway/contacts vocal folds/not ejected 6 = enters airway/below vocal folds/ejected 7 = enters airway/below vocal folds/not ejected despite effort 8 = enters airway/below vocal folds/no effort - Penetration-Aspiration Scale Score Thin Liquid via teaspoon Result: 1= does not enter airway Thin Liquid via teaspoon Trial 2 Result: 2= enter airway/above vocal folds/ejected - Trace penetration with full ejection from laryngeal vestibule. Thin Liquid via small single sip from cup Result: 1= does not enter airway Thin Liquid via sequential sips from cup Result: 1= does not enter airway [place]ur Thick Liquid via small single sip from cup Result: 1= does not enter airway Honey Thick Liquid via small single sip from cup Result: 1= does not enter airway Pudding Result: 1= does not enter airway Cookie Result: 1= does not enter airway Thin Liquid via single sip from straw Result: 2= enter airway/above vocal folds/ejected - Trace penetration with full ejection from laryngeal vestibule. Thin Liquid via sequential sips from straw Result: 1= does not enter airway Pudding with Esophageal screen Result: 1= does not enter airway - Oral Phase Labial Seal: No Labial Escape Tongue Control During Bolus Hold: Posterior escape of less than half of bolus Bolus Preparation/Mastication: Timely and efficient chewing and mashing Bolus Transport/Lingual Motion: Brisk tongue motion Oral Residue: Trace residue lining oral structures - Pharyngeal Phase Initiation of Pharyngeal Swallow: Bolus head in pyriforms - Only noted during sequential swallows; however, pt still maintained good airway closure. Soft Palate Elevation: No bolus between soft palate and pharyngeal wall Laryngeal Elevation: Partial superior movement thyroid cart/partial apprx aryt-epig petiole Anterior Hyoid Excursion: Partial anterior movement Epiglottic Movement: Complete inversion Laryngeal Vestibule Closure at Height of Swallow: Incomplete; narrow column of air/contrast in laryngeal vestibule Pharyngeal Stripping Wave: Present - complete Pharyngoesophageal Segment Opening: Complete distension and complete duration; no obstruction of flow Tongue Base Retraction: Trace column of contrast between tongue base & post. pharyngeal wall Pharyngeal Residue: Trace residue within or on pharyngeal structures - Esophageal Phase Esophageal Clearance: Esophageal retention - Diagnosis/Impression Diagnosis: Oropharyngeal swallow function grossly WNL. Impression: The patient presents with overall normal swallow function. He had posterior loss of less than half the bolus of sequential sips of thin liquids; however, the patient maintained adequate airway protection despite mild delay in swallow onset He additionally had mildly decreased laryngeal elevation and anterior hyoid excursion, but maintained full epiglottic inversion and good airway closure. He had trace penetration of thin liquids via tsp and straw with full ejection from the laryngeal vestibule. No aspiration observed during the study. The patient did present with slowed flow of pudding bolus through the esophagus during esophageal screening. Additionally, he presented with retention of pudding contrast in the mid esophagus. Patient reports at bedside sensation of esophageal retention at chest level, as well as heart burn. Will recommend GI consult. - Recommendations Diet: Regular Textures, Thin Liquids Compensatory Strategies: Small Bites, Slow Rate, Sitting upright, Remain sitting upright for 30 minutes after PO intake Recommend Repeat Modified Barium Swallow: No Need for Skilled Speech Therapy Services: No - No further dysphagia therapy warranted. Recommended Referrals: GI Consult - Slowed esophageal clearance of contrast and retention of pudding contrast in the mid esophagus. Education Completed: 1. Described result of evaluation. Comment: [facility] recommended continue with current precautions to decrease risk for reflux and esophageal stasis. Pt verbalized understanding. [facility] communicated recommendations to RNAlison, for continued reflux precautions and GI consult. - Status Active ST Patient: Active - Contact Information [facility] Speech Therapy:: Jovita Sanchez M.A. [facility] Speech-Language Pathologist [facility] [address] [place] [address] [email or web address] [phone] 05/31/21 14:14
[2021-05-31 15:55] LABS: Bedside Glucose 237 mg/dL (70-110)
[2021-05-31 19:18] VITALS: PULSE 69; O2SAT 94
[2021-05-31 20:28] VITALS: BP 147/59; PULSE 62; RESP 20; TEMP 36.6; O2SAT 98
[2021-05-31] MEDS: Atorvastatin Calcium 80 MG Tablet PO (20:45)
[2021-05-31 21:11] LABS: Bedside Glucose 285 mg/dL (70-110)
--- NOTE | 2021-06-01 01:23 | CPS ---
Pt didn't want bipap on tonight. RN aware
[2021-06-01] MEDS: 0.9% Normal Saline 1,000 ML 100 ML IV (03:29)
[2021-06-01 03:33] VITALS: BP 148/34; PULSE 67; RESP 18; TEMP 36.9; O2SAT 95
[2021-06-01] MEDS: Enoxaparin 30 MG/0.3 ML Syringe SC (05:27)
[2021-06-01] MEDS: 0.9% Saline Lock 10 ML Syringe IV ×2 (05:27→16:47)
[2021-06-01 06:06] LABS: Absolute Lymphocyte Count 1.62 X10^3/uL (0.83-4.51); Absolute Neutrophil Count 4.7 X10^3/uL (2.0-7.7); Basophil# 0.06 X10^3/uL; Basophil% 0.8 % (0-1); Eosinophil# 0.46 X10^3/uL; Eosinophils% 6.1 % (0-5); Hematocrit 40.5 % (40-54); Hemoglobin 12.3 g/dL (13.0-16.5); Lymphocyte # 1.62 X10^3/ul (0.83-4.51); Lymphocyte % 21.4 % (19-41); Mean Corp Hgb Conc 30.4 g/dL (32-36); Mean Corpuscular Hgb 27.5 pg (27.0-32.0); Mean Corpuscular Volume 90.4 fL (80-94); Mean Platelet Vol. 9.9 fl (6.2-12.0); Monocyte# 0.71 X10^3/uL; Monocyte% 9.4 % (0-10); NRBC Flagged by Analyzer 0 % (0-5); Neutrophil # 4.66 X10^3/uL (2.7-7.7); Neutrophil % 61.4 % (47-70); Platelet Count 238 K/mm3 (150-450); RBC Distribution Width CV 14.5 % (11.6-14.6); RBC Distribution Width SD 48.4 fl (35.1-43.9); Red Blood Count 4.48 M/mm3 (4.6-6.2); White Blood Count 7.6 K/mm3 (4.4-11.0)
[2021-06-01 06:31] LABS: Anion Gap 1 (5-15); BUN 52 mg/dL (7-18); Calcium,Total 8.6 mg/dL (8.5-10.1); Chloride 108 mmol/L (98-107); Creatinine, Serum 2.48 mg/dL (0.70-1.30); EST Glomerular Filtration Rate 28 mL/min (>60); Est Glom Filt Rate - Afr Amer 34 mL/min (>60); Estimated Creatinine Clearance 34.55 ml/min; Glucose 141 mg/dL (74-106); Potassium 5.2 mmol/L (3.5-5.1); Sodium Level 138 mmol/L (136-145)
--- NOTE | 2021-06-01 06:52 | PN_ITS ---
Subjective Subjective This 65 year old male with diabetes and other comorbidities was seen bedside for POD#3 for left lower extremity incision and drainage with widespread debridement of the heel and arch abscess including tendon sheath. He denies fever, chills, nausea, vomiting. His pain is controlled at this time. Objective Data Objective Data Vital Signs: Vital Signs Temp Pulse Resp BP Pulse Ox 98.4 F 67 18 148/34 H 95 06/01/21 03:33 06/01/21 03:33 06/01/21 03:33 06/01/21 03:33 06/01/21 03:33 Oxygen Flow Rate (L/min) 6 Oxygen Delivery Method High Flow Weight: 130.2 kg Body Mass Index (BMI) 35.6 Intake & Output: Intake and Output for Last 24 Hours 05/30/21 05/31/21 06/01/21 23:59 23:59 23:59 Intake Total 3175 / 3175 2625.00 / 2625.00 50 / 50 Output Total 1600 / 1600 1375 / 1975 1200 / 1200 Balance 1575 / 1575 1250.00 / 650.00 -1150 / -1150 Lab / Micro Data Result Diagrams: 06/01/21 05:45 06/01/21 05:45 Labs: Laboratory Results - last 24 hr 05/31/21 05:45: Sodium 135 L, Potassium 5.4 H, Chloride 105, Carbon Dioxide 29.0, Anion Gap 1 L, BUN 70 H, Creatinine 3.09 H, Estim Creat Clear Calc 27.73, Est GFR (MDRD) Af Amer 26 L, Est GFR (MDRD) Non-Af 22 L, BUN/Creatinine Ratio 22.7 H, Glucose 287 H, Calcium 8.7 05/31/21 15:52: POC Glucose 237 H 05/31/21 20:37: POC Glucose 285 H 06/01/21 05:45: WBC 7.6, RBC 4.48 L, Hgb 12.3 L, Hct 40.5, MCV 90.4, MCH 27.5, MCHC 30.4 L, RDW Std Deviation 48.4 H, RDW Coeff of Darrell 14.5, Plt Count 238, MPV 9.9, Immature Gran % (Auto) 0.900, Neut % (Auto) 61.4, Lymph % (Auto) 21.4, [place] % (Auto) 9.4, Eos % (Auto) 6.1 H, Baso % (Auto) 0.8, Absolute Neuts (auto) 4.7, Absolute Lymphs (auto) 1.62, Nucleated RBC % 0 06/01/21 05:45: Sodium 138, Potassium 5.2 H, Chloride 108 H, Carbon Dioxide 29.0, Anion Gap 1 L, BUN 52 H, Creatinine 2.48 H, Estim Creat Clear Calc 34.55, Est GFR (MDRD) Af Amer 34 L, Est GFR (MDRD) Non-Af 28 L, BUN/Creatinine Ratio 21.0 H, Glucose 141 H, Calcium 8.6 Micro: Microbiology 05/29/21 13:20 Tissue - Left Foot Gram Stain - Final 05/29/21 13:20 Tissue - Left Foot Wound Culture - Preliminary Meth. resistant Staph. aureus Enterococcus faecalis Klebsiella oxytoca Proteus mirabilis 05/29/21 13:20 Tissue - Left Foot Gram Stain - Final 05/29/21 13:20 Tissue - Left Foot Wound Culture - Preliminary Gram negative baljit Gram negative baljit#2 Gram negative baljit#3 Gram Positive Cocci 05/29/21 13:20 Tissue - Left Foot Anaerobic Culture - Preliminary 05/28/21 16:29 Blood Culture (Wb) - Anticubital Left Blood Culture - Preliminary No growth in 48 hours. 05/28/21 16:29 Blood Culture (Wb) - Left Hand Blood Culture - Preliminary No growth in 48 hours. 05/28/21 21:20 Wound - Heel, Left Gram Stain - Final 05/28/21 21:20 Wound - Heel, Left Wound Culture - Final Klebsiella oxytoca Proteus mirabilis Meth. resistant Staph. aureus 05/28/21 17:50 Nasal Secretion SARS-CoV-2 Antigen (Rapid) - Final Radiography Diagnostic Testing: Radiology Impression Venous Doppler Study 05/31/21 11:48 Interpretation Summary There is no evidence of left lower extremity deep vein thrombosis. Left great saphenous vein appears patent and compressible segmentally. Abbreviated COVID-19 protocol utilized Ordering Physician: Tiffany Chapman Performed By: Brayan Fox, RVT Physical Exam Narrative Const alert and no apparent distress General Appearance: cooperative and comfortable Extremity left calf swelling and discomfort decreased lower extremity edema bilateral lower extremities. no streaking or odor. the dressing is clean, dry, intact to left lower extremity. widespread debridement and drainage site has healthy tissue with resolution of purulence, odor, and edema. there is mild macerated loose skin which was removed. compartments remain soft to palpate. no fluctuance or bogginess on palpation to left lower extremity General Extremity: Negative for clubbing or cyanosis to digits. Vasc normal capillary refill, no acute ischemic skin changes noted, normal temperature Skin Skin Narrative: Wound Narrative: Neuro Neuro Narrative: Assessment & Plan Assessment/Plan (1) Abscess of left foot: (2) Ulcer of left foot with necrosis of muscle: (3) Cellulitis of left foot: PLAN: I reviewed and discussed his case. He is POD #3. The following work up and care recommendations were made: Infection: clinical improvement noted. He is afebrile and his vital signs are stable. His leukocytosis is resolved and his white blood cell count decreased from over 20 to 7 range this morning. His blood cultures are pending. He has history of MRSA, Proteus, Enterococcus, anaerobic cocci, Bacteroides from previous culture 03/08/2021 also. Wound cx during hospital admission now with klebs, proteus, MRSA, enterococcus. Cont on vanc/zosyn. Infectious disease on consult and appreciated. Dressing: wound is stabilized from a hemostasis and infection standpoint. wound vac will be applied 150 mmHg continuous three times per week. Offloading: To maintain a strict nonweightbearing status to left lower extremity and use assistive device. To work with PT and OT. Vascular: Arterial studies were reviewed. Showing likely adequate perfusion for healing. Right LAI is 0.99 and left 1.18. Right toe brachial index 0.76 and left 0.71. Referral to Dr. Campos for potential venous and arterial intervention was provided today. He went for consultationon 04-11-21. Will recheck duplex to make sure normal posterior tibial flow into the area of the wound. normal prior LAI noted. Edema: Kevin wrap, elevation, and dietary salt restrictions are recommended. Ve nous doppler ordered to rule out DVT; negative finding noted. Pain: controlled with pain medication prn morphine and oxycodone. Host factors: His comorbidities are noted and he is at risk for continued delayed or nonhealing. Medicine team consulted for medical management of COPD, diabetes type 2 with peripheral polyneuropathy, CKD stage III, hyperkalemia hyponatremia elevated liver function tests, hypertension, hyperlipidemia, obesity. Medical management is appreciated. Smoking and tobacco cessation is recommended. To continue nutritional supplementation to optimize the healing process. Discharge planning: [facility] facility placement is recommended for wound care and potentially long-term antibiotics. He has demonstrated inability to maintain a nonweightbearing status and appropriately care for himself at home. The tentative plan is to go to the transitional care unit; ok to transfer from a surgical standpoint. I answered all of his questions. The podiatry team will continue to follow him closely while in house. Tiffany Chapman DPM, [facility] [phone]
[2021-06-01 07:28] LABS: Bedside Glucose 250 mg/dL (70-110)
--- NOTE | 2021-06-01 07:38 | PN.HOSP_ITS ---
Subjective Subjective Patient seen complains of a restless night. Patient cultures have resulted and results are ff- Meth. resistant Staph. aureus, Enterococcus faecalis, Klebsiella oxytoca, Proteus mirabilis. Will defer final antibiotic management to ID Objective Data Objective Data Vital Signs: Vital Signs Temp Pulse Resp BP Pulse Ox 98.4 F 67 18 148/34 H 95 06/01/21 03:33 06/01/21 03:33 06/01/21 03:33 06/01/21 03:33 06/01/21 03:33 Oxygen Flow Rate (L/min) 6 Oxygen Delivery Method High Flow Weight: 130.2 kg Body Mass Index (BMI) 35.6 Intake & Output: Intake and Output for Last 24 Hours 05/30/21 05/31/21 06/01/21 23:59 23:59 23:59 Intake Total 3175 / 3175 2625.00 / 2625.00 50 / 50 Output Total 1600 / 1600 1375 / 1975 1200 / 1200 Balance 1575 / 1575 1250.00 / 650.00 -1150 / -1150 Lab / Micro Data Result Diagrams: 06/01/21 05:45 06/01/21 05:45 Labs: Laboratory Results - last 24 hr 05/31/21 11:10: POC Glucose 250 H 05/31/21 15:52: POC Glucose 237 H 05/31/21 20:37: POC Glucose 285 H 06/01/21 05:45: WBC 7.6, RBC 4.48 L, Hgb 12.3 L, Hct 40.5, MCV 90.4, MCH 27.5, MCHC 30.4 L, RDW Std Deviation 48.4 H, RDW Coeff of Darrell 14.5, Plt Count 238, MPV 9.9, Immature Gran % (Auto) 0.900, Neut % (Auto) 61.4, Lymph % (Auto) 21.4, Schley % (Auto) 9.4, Eos % (Auto) 6.1 H, Baso % (Auto) 0.8, Absolute Neuts (auto) 4.7, Absolute Lymphs (auto) 1.62, Nucleated RBC % 0 06/01/21 05:45: Sodium 138, Potassium 5.2 H, Chloride 108 H, Carbon Dioxide 29.0, Anion Gap 1 L, BUN 52 H, Creatinine 2.48 H, Estim Creat Clear Calc 34.55, Est GFR (MDRD) Af Amer 34 L, Est GFR (MDRD) Non-Af 28 L, BUN/Creatinine Ratio 21.0 H, Glucose 141 H, Calcium 8.6 Micro: Microbiology 05/29/21 13:20 Tissue - Left Foot Gram Stain - Final 05/29/21 13:20 Tissue - Left Foot Wound Culture - Preliminary Proteus mirabilis Klebsiella oxytoca Meth. resistant Staph. aureus 05/29/21 13:20 Tissue - Left Foot Gram Stain - Final 05/29/21 13:20 Tissue - Left Foot Wound Culture - Preliminary Meth. resistant Staph. aureus Enterococcus faecalis Klebsiella oxytoca Proteus mirabilis 05/28/21 16:29 Blood Culture (Wb) - Anticubital Left Blood Culture - Preliminary No growth in 48 hours. 05/28/21 16:29 Blood Culture (Wb) - Left Hand Blood Culture - Preliminary No growth in 48 hours. 05/28/21 21:20 Wound - Heel, Left Gram Stain - Final 05/28/21 21:20 Wound - Heel, Left Wound Culture - Final Klebsiella oxytoca Proteus mirabilis Meth. resistant Staph. aureus 05/28/21 17:50 Nasal Secretion SARS-CoV-2 Antigen (Rapid) - Final Radiography Diagnostic Testing: Radiology Impression Venous Doppler Study 05/31/21 11:48 Interpretation Summary There is no evidence of left lower extremity deep vein thrombosis. Left great s aphenous vein appears patent and compressible segmentally. Abbreviated COVID-19 protocol utilized Ordering Physician: Tiffany Chapman Performed By: Brayan Fox RVT Physical Exam Narrative GENERAL: cooperative HEENT: Atraumatic; EYES; Anicteric, Normal Conjunctiva NECK; supple, normal thyroid, RESPIRATORY: Diminished to auscultation CARDIOVASCULAR: Regular S1 S2, GI: soft, normoactive bowel sounds, : No Renal angle tenderness; EXTREMITIES: Left foot in surgical dressing MUSCULOSKELETAL: no muscle waisting NEURO: Awake; no lateralizing signs. SKIN: No Rash PSYCH; Flat affect Assessment & Plan Assessment/Plan (1) Diabetic foot ulcer: QUALIFIERS: Diabetes mellitus type: type 2 Diabetic foot ulcer location: heel Laterality: left Non-pressure ulcer stage: with fat layer exposed Qualified Code(s): E11.621 - Type 2 diabetes mellitus with foot ulcer; L97.422 - Non-pressure chronic ulcer of left heel and midfoot with fat layer exposed PLAN: Patient is a 65-year-old gentleman with multiple comorbidities including diabetes mellitus. Polyneuropathy with recent wound debridement for chronic left heel ulcer who presented with purulent discharge with associated fever and chills 1. Sepsis (present on admission) secondary to infected diabetic foot ulcer involving the left heel (evidence elevated WBC count, fever with the presence of an infection) ? Patient apparently underwent wound debridement on 05/24/2021 presented with wo rsening symptoms. Patient has history of polymicrobial infection from the wound. Was started on broad-spectrum antibiotic therapy admitted to regular nursing floor. Consultation was placed to podiatry for possible I&D consult placed to ID for management of patient antibiotic therapy 05/30/2021. Patient underwent debridement of non viable soft tissue and ulcer (excisional) left foot incision and drainage left foot by Tiffany Chapman DPM on 05/29/2021 -05/31/2021;Patient seen pain is relatively well controlled. Wound cultures so far positive for Klebsiella oxytoca addition to Gram negative rods and gram- positive cocci final identification and sensitivities pending ? 06/01/2021; Patient seen complains of a restless night. Patient cultures have resulted and results are ff- Meth. resistant Staph. aureus, Enterococcus faecalis, Klebsiella oxytoca, Proteus mirabilis. Will defer final antibiotic management to ID 2. Hyponatremia -suspected to be secondary to hypovolemic hyponatremia patient on fluids with subsequent monitoring with daily BMP 3. PATRICK on CKD stage IIIb ? Patient baseline creatinine between 2.2-2.9. Creatinine on admission was 3.37 worsened to 3.46 on fluid with subsequent monitoring of electrolyte consult placed to nephrology 4. Hyperkalemia Secondary to patient impaired kidney function treated per protocol 5. Diabetes mellitus type II -patient's oral hypoglycemics held. Placed on long acting insulin, Accu-Cheks a.c. and at bedtime and covered with sliding scale insulin 6. Chronic hypoxic respiratory failure -secondary to COPD patient on baseline home oxygen 7. Hypertension - Blood pressure controlled, home medications continued with dose adjustment as needed 8. Dyslipidemia -Patient is on statin therapy, continued at home dose 9. Obstructive sleep apnea ? On CPAP at night plan is to continue with home statin 10. Class II obesity with BMI of 35.7 ? Weight loss advised 11. DVT prophylaxis - Lovenox 12. Physical deconditioning - Requested for PT OT eval and adoption social worker to assist with discharge planning Charges/Coding Visit Charges Inpatient E&M: 08228 Subs Hosp L2
--- NOTE | 2021-06-01 07:43 | WOUNDNOTE ---
wound photo: left foot
--- NOTE | 2021-06-01 07:45 | WOUNDNOTE ---
wound photo: left foot
[2021-06-01] MEDS: Juven (unflavored) Packet 1 PACKET PO (08:06)
[2021-06-01] MEDS: Carvedilol 12.5 MG Tablet PO (08:07)
[2021-06-01] MEDS: Aspirin 81 MG TAB.CHEW PO (08:07)
[2021-06-01 08:10] VITALS: BP 132/60; PULSE 62; RESP 16; TEMP 36.7; O2SAT 100
[2021-06-01 08:30] LABS: Bedside Glucose 116 mg/dL (70-110)
--- NOTE | 2021-06-01 10:32 | CASEMGMT ---
Social Work Note Pt is medically ready for discharge today to TCU. SW placed a call to Micki with TCU and left message updating her. Plan: TCU Liana Tamez TOE PULLER, [employer]STREAM BIOMANUFACTURING TECHNICIAN
--- NOTE | 2021-06-01 10:36 | PN.RENAL_ITS ---
Subjective Subjective Following for PATRICK on CKD Sitting in chair, denies any complaints. Very hard of hearing. Objective Data Objective Data Vital Signs: Vital Signs Temp Pulse Resp BP Pulse Ox 98.1 F 62 16 132/60 H 100 06/01/21 08:10 06/01/21 08:10 06/01/21 08:10 06/01/21 08:10 06/01/21 08:10 Oxygen Flow Rate (L/min) 4 Oxygen Delivery Method Non-Rebreather @ 15L/min Weight: 130.2 kg Body Mass Index (BMI) 35.6 Intake & Output: Intake and Output for Last 24 Hours 05/30/21 05/31/21 06/01/21 23:59 23:59 23:59 Intake Total 3175 / 3175 2625.00 / 2625.00 50 / 50 Output Total 1600 / 1600 1375 / 1975 1200 / 1200 Balance 1575 / 1575 1250.00 / 650.00 -1150 / -1150 Lab / Micro Data Result Diagrams: 06/01/21 05:45 06/01/21 05:45 Labs: Laboratory Results - last 24 hr 05/31/21 11:10: POC Glucose 250 H 05/31/21 15:52: POC Glucose 237 H 05/31/21 20:37: POC Glucose 285 H 06/01/21 05:45: WBC 7.6, RBC 4.48 L, Hgb 12.3 L, Hct 40.5, MCV 90.4, MCH 27.5, MCHC 30.4 L, RDW Std Deviation 48.4 H, RDW Coeff of Darrell 14.5, Plt Count 238, MPV 9.9, Immature Gran % (Auto) 0.900, Neut % (Auto) 61.4, Lymph % (Auto) 21.4, Gibson % (Auto) 9.4, Eos % (Auto) 6.1 H, Baso % (Auto) 0.8, Absolute Neuts (auto) 4.7, Absolute Lymphs (auto) 1.62, Nucleated RBC % 0 06/01/21 05:45: Sodium 138, Potassium 5.2 H, Chloride 108 H, Carbon Dioxide 29.0, Anion Gap 1 L, BUN 52 H, Creatinine 2.48 H, Estim Creat Clear Calc 34.55, Est GFR (MDRD) Af Amer 34 L, Est GFR (MDRD) Non-Af 28 L, BUN/Creatinine Ratio 21.0 H, Glucose 141 H, Calcium 8.6 06/01/21 07:57: POC Glucose 116 H Micro: Microbiology 05/29/21 13:20 Tissue - Left Foot Gram Stain - Final 05/29/21 13:20 Tissue - Left Foot Wound Culture - Preliminary Proteus mirabilis Klebsiella oxytoca Meth. resistant Staph. aureus 05/29/21 13:20 Tissue - Left Foot Gram Stain - Final 05/29/21 13:20 Tissue - Left Foot Wound Culture - Preliminary Meth. resistant Staph. aureus Enterococcus faecalis Klebsiella oxytoca Proteus mirabilis 05/28/21 16:29 Blood Culture (Wb) - Anticubital Left Blood Culture - Pr eliminary No growth in 48 hours. 05/28/21 16:29 Blood Culture (Wb) - Left Hand Blood Culture - Preliminary No growth in 48 hours. 05/28/21 21:20 Wound - Heel, Left Gram Stain - Final 05/28/21 21:20 Wound - Heel, Left Wound Culture - Final Klebsiella oxytoca Proteus mirabilis Meth. resistant Staph. aureus 05/28/21 17:50 Nasal Secretion SARS-CoV-2 Antigen (Rapid) - Final Radiography Diagnostic Testing: Radiology Impression Venous Doppler Study 05/31/21 11:48 Interpretation Summary There is no evidence of left lower extremity deep vein thrombosis. Left great saphenous vein appears patent and compressible segmentally. Abbreviated COVID-19 protocol utilized __ Ordering Physician: Tiffany Chapman Performed By: Brayan Fox RVT Physical Exam Narrative Const: resting quietly, no acute distress noted Cardio: S1-S2, rhythm rate regular Respiratory: Lung sounds clear anteriorly. No audible wheezes or rhonchi Abdomen: Soft rounded positive bowel sounds x4 quadrants Extremities: trace edema left leg. Kevin wrap intact Assessment & Plan Assessment/Plan (1) PATRICK (acute kidney injury): PLAN: - The patient has underlying chronic kidney disease (see below). -PATRICK is likely prerenal. So far, serum creatinine has peaked at 3.68 mg/dL on 05/30/2021. -Serum creatinine is better today at 2.48 mg/dL which is at baseline ~ 2.7 to 2.9 mg/dL. -Since appetite is still marginal, we kept him on IV fluids. There is no signs of volume overload on my exam. -Current medications are reviewed and are all appropriately dosed for his estimated creatinine clearance. (2) Chronic kidney disease, stage 4 (severe): PLAN: - The patient has underlying stage IV CKD. Serum creatinine is around 2.7-2.9 at baseline. -The patient likely has diabetic kidney disease. (3) Hyperkalemia: PLAN: - Potassium level peaked 5.4 mmol/L, today 5.2. -This is likely due to PATRICK/CKD and hyperglycemia. -There is no need for sodium polystyrene sulfonate from my standpoint since hyperkalemia is mild. -Correcting hyperglycemia should bring down the potassium to normal range. -Patient can be placed on low potassium diet restrictions. (4) Hyponatremia: PLAN: - Serum sodium was slightly low but improved to 138 mmol/L today. -The patient is asymptomatic from hyponatremia. -Part of the hyponatremia can also be due to hyperglycemia. Correcting hype rglycemia should bring the serum sodium down to normal value. (5) Sepsis: PLAN: - The patient is being treated for diabetic foot infection. Treatment as per hospital medicine and infectious disease service. - Discharge planning to TCU possibly today. Patient does not need to be on IV fluids once he is in TCU. Encouraged patient to increase oral intake. We will follow patient when in TCU. -Patient states he follows with a journeyman powerhouse operator every 3 months in [place] (he could not remember her name).
[2021-06-01 12:05] LABS: Bedside Glucose 113 mg/dL (70-110)
--- NOTE | 2021-06-01 13:21 | PCM.PN.ID ---
Physical Exam Narrative Feeling better, foot sore, no fever, no n/v/d. Const alert and no apparent distress General Appearance: cooperative Resp normal air movement and clear to auscultation bilaterally Cardio regular rate and regular rhythm GI soft to palpation, non-tender and non-distended Skin Skin Narrative: foot wrapped ID ID: Route of nutrition/ use of supplements: [] Nutritional Intake: [] IV Site: [] Gonzales Catheter: [] Assessment & Plan Assessment/Plan (1) Cellulitis of left foot: (2) Sepsis: PLAN: Sepsis with fever, leukocytosis, PATRICK on CKD, due to L foot infected ulcer. Has history of MRSA, Proteus, Enterococcus, anaerobic cocci, Bacteroides from previous culture 03/08/2021. At that time he finished full course of oral antibiotics, Augmentin and Bactrim. Wound cx here with klebs, proteus, MRSA. MRSA pcr (+). On vanc/zosyn. Taken to OR 05/29 with heavy pus drained, surg cx with mrsa, enterococcus, klebs, proteus; did see sinus tract down to periostal level. Refuses covid vaccine. Cr better today. Will order midline, 2 weeks iv vanc/unasyn. After that point will do 4 weeks po abx, likely doxy and augmentin. Will follow, wrote rx.
--- NOTE | 2021-06-01 13:35 | TREXTCAR_ITS ---
Diet 05/29/21 13:41 Diet: Carbohydrate Controlled Wound(s) LEFT FOOT: Wound Type: Surgical Incision left plantar foot: Wound Type: Neuropathic/Diabetic Foot Ulcer Dressing Change: applied KCI wound VAC left heel: Wound Type: Neuropathic/Diabetic Foot Ulcer Dressing Change: applied KCI wound VAC Therapies Weight Bearing: Toe-touch weight bearing Problem/Diagnosis (1) Cellulitis of left foot: Status: Acute (2) Sepsis: Status: Acute Allergies/Procedures Done in Hospital Allergies codeine Adverse Reaction (Verified 05/28/21 14:35) Nausea promethazine [From Phenergan] Adverse Reaction (Verified 05/28/21 14:35) Nausea Type of Care/Length of Stay Estimated LOS: Convalescent Care Less Than 30 days Type of Care Needed: Skilled Rehab Potential: Fair Prognosis: Fair Additional Orders/Day of Discharge Day of Discharge: 06/01/21 Dietary and Speech Recommendations Dietitian Recommendations/Changes: Recommend diet advanced as tolerated once medically able to 2200 calorie/consistent carbohydrate; cardiac/sodium- restricted. Will d/c glucerna ceciliake w/ medpass. Will add Corwin BID for wound healing. Discharge Plan Admission Admit Date/Time: 05/28/21 19:03 Attending Provider: Nick Brambila Consulting Providers: Walt Raphael ; Shazia Catalan Discharge Orders/Prescriptions Prescriptions: New vancomycin 1.25 gram recon soln 1.25 g IV Q24H Qty: 12 RF: 0 ampicillin-sulbactam 3 gram recon soln 3 g IV Q12H Qty: 24 RF: 0 acetaminophen [Tylenol] 325 mg Tablet 650 mg PO Q4H PRN PRN (Reason: Fever, pain 1-10/10) Qty: 0 RF: 0 albuterol sulfate 2.5 mg /3 mL (0.083 %) Solution For Nebulization 2.5 mg inhalation Q2H PRN PRN (Reason: Dyspnea, wheezing) Qty: 0 RF: 0 sennosides-docusate sodium [Stool Softener-Stimulant Laxat] 8.6-50 mg Tablet 2 tab PO BID PRN PRN (Reason: Constipation) Qty: 0 RF: 0 melatonin 3 mg Tablet 3 mg PO QHS PRN PRN (Reason: Insomnia) Qty: 0 RF: 0 nicotine 21 mg/24 hr Patch 24 Hour 21 mg transdermal DAILY Qty: 0 RF: 0 oxycodone 5 mg Tablet 10 mg PO Q4H PRN PRN (Reason: Pain Score 4-5) 2 Days Qty: 6 RF: 0 enoxaparin 30 mg/0.3 mL Syringe 30 mg subcut DAILY@0600 Qty: 0 RF: 0 Corwin (with collagen) 7-7-1.5 gram Powder In Packet 1 packet PO BIDCM Qty: 0 RF: 0 Daily Fiber (psyllium-aspart) 3 gram Powder In Packet 1 packet PO DAILY PRN PRN (Reason: Constipation) Qty: 0 RF: 0 Continued atorvastatin 80 MG tablet 80 mg PO QHS RF: 0 ascorbic acid (vitamin C) 1,000 MG tablet 1,000 mg PO TID RF: 0 insulin glargine 100 UNIT/ML solution 35 unit SQ BREAKFAST RF: 0 aspirin 81 MG tablet,chewable 81 mg PO DAILY@0800 RF: 0 insulin lispro 100 UNIT/ML insulin pen See Protocol unit SQ DAILY RF: 0 insulin glargine 100 UNIT/ML insulin pen 40 unit SQ QHS RF: 0 carvedilol 12.5 MG tablet 12.5 mg PO DAILY RF: 0 cholecalciferol (vitamin D3) 125 mcg (5,000 unit) Capsule 125 mcg PO DAILY RF: 0 gabapentin [Neurontin] 800 mg Tablet 800 mg PO TID RF: 0 Discontinued glipizide 10 MG tablet extended release 24hr 10 mg PO DAILY RF: 0 oxycodone-acetaminophen 1 EACH tablet 1 tab PO TID RF: 0 magnesium oxide 500 MG capsule 500 mg PO DAILY RF: 0 Referrals / Follow Up: [facility] [Other] [facility] [Other] Tiffany Chapman DPM [STAFF PHYSICIAN] - In 1 Week Shazia Catalan MD [STAFF PHYSICIAN] - Within 2 Weeks Walt Raphael MD [STAFF PHYSICIAN] - Within 2 Weeks Disposition Disposition (needs filled in before D/C Order can be placed): [facility]
--- NOTE | 2021-06-01 13:42 | DS.PCM_ITS ---
Providers Date of Admission: 05/28/21 Primary Care Physician: SULMA OSORIO Consultations 05/28/21 19:55 Consult: Onc/Wound/inspector watch train Routine Comment: 05/29/21 09:45 Consult: Infectious Disease Routine Consulting Provider: Walt Raphael Reason for Consult: Left Lower Extremity/Heel Ulceration with Cellulitis EMERGENT Consult: No Notified: Yes Date Notified: 05/29/21 Time Notified: 09:46 Method of Notification: Verbal 05/29/21 10:34 Consult: Nephrology Routine Consulting Provider: Shazia Catalan Reason for Consult: [id number] EMERGENT Consult: No MD Notified: Yes Date Notified: 05/29/21 Time Notified: 15:00 Method of Notification: office Reason For Visit: DIABETIC INFECTED FOOT WOUND Diagnosis Discharge Diagnosis (1) Cellulitis of left foot: Status: Acute Code(s): L03.116 - Cellulitis of left lower limb (2) Sepsis: Status: Acute Code(s): A41.9 - Sepsis, unspecified organism Medications at Discharge Home Medications ascorbic acid (vitamin C) 1,000 mg PO TID 07/11/20 aspirin 81 mg PO DAILY@0800 07/11/20 atorvastatin 80 mg PO QHS 07/11/20 insulin glargine 35 unit SQ BREAKFAST 07/11/20 insulin glargine 40 unit SQ QHS 07/11/20 insulin lispro See Protocol SQ DAILY 07/11/20 carvedilol 12.5 mg PO DAILY 08/17/20 cholecalciferol (vitamin D3) 125 mcg PO DAILY 05/28/21 gabapentin [Neurontin] 800 mg PO TID 05/31/21 acetaminophen [Tylenol] 650 mg PO Q4H PRN PRN #0 tab 06/01/21 albuterol sulfate 2.5 mg INHALATION Q2H PRN PRN #0 ml 06/01/21 ampicillin-sulbactam 3 g IV Q12H #24 ea 06/01/21 [id number] [Corwin (with collagen)] 1 packet PO BIDCM #0 ea 06/01/21 enoxaparin 30 mg SUBCUT DAILY@0600 #0 ml 06/01/21 melatonin 3 mg PO QHS PRN PRN #0 tab 06/01/21 nicotine 21 mg TRANSDERMAL DAILY #0 ea 06/01/21 oxycodone 10 mg PO Q4H PRN PRN 2 Days #6 tab 06/01/21 psyllium husk (aspartame) [Daily Fiber (psyllium-aspart)] 1 packet PO DAILY PRN PRN #0 ea 06/01/21 sennosides-docusate sodium [Stool Softener-Stimulant Laxat] 2 tab PO BID PRN PRN #0 tab 06/01/21 vancomycin 1.25 g IV Q24H #12 ea 06/01/21 Hospital Course Summary of Care Provided Minutes Spent on Discharge: 40 Hospital Course: Patient is a 65-year-old gentleman with multiple comorbidities including diabetes mellitus. Polyneuropathy with recent wound debridement for chronic left heel ulcer who presented with purulent discharge with associated fever and chills 1. Sepsis (present on admission) secondary to infected diabetic foot ulcer i nvolving the left heel (evidence elevated WBC count, fever with the presence of an infection) ? Patient apparently underwent wound debridement on 05/24/2021 presented with worsening symptoms. Patient has history of polymicrobial infection from the wound. Was started on broad-spectrum antibiotic therapy admitted to regular nursing floor. Consultation was placed to podiatry for possible I&D consult placed to ID for management of patient antibiotic therapy 05/30/2021. Patient underwent debridement of non viable soft tissue and ulcer (excisional) left foot incision and drainage left foot by Tiffany Chapman DPM on 05/29/2021 -05/31/2021;Patient seen pain is relatively well controlled. Wound cultures so far positive for Klebsiella oxytoca addition to Gram negative rods and gram- positive cocci final identification and sensitivities pending ? 06/01/2021; Patient seen complains of a restless night. Patient cultures have resulted and results are ff- Meth. resistant Staph. aureus, Enterococcus fa ecalis, Klebsiella oxytoca, Proteus mirabilis. Will defer final antibiotic management to ID -Midline was placed patient was discharged to the transitional care unit with vancomycin and Unasyn for 2 weeks with plans for patient to continue with Doxy and Augmentin p.o. for 4 weeks after the IV antibiotics. 2. Hyponatremia -suspected to be secondary to hypovolemic hyponatremia patient on fluids with subsequent monitoring with daily BMP 3. PATRICK on CKD stage IIIb ? Patient baseline creatinine between 2.2-2.9. Creatinine on admission was 3.37 worsened to 3.46 on fluid with subsequent monitoring of electrolyte consult placed to nephrology 4. Hyperkalemia Secondary to patient impaired kidney function treated per protocol 5. Diabetes mellitus type II -patient's oral hypoglycemics held. Placed on long acting insulin, Accu-Cheks a.c. and at bedtime and covered with sliding scale insulin 6. Chronic hypoxic respiratory failure -secondary to COPD patient on baseline home oxygen 7. Hypertension - Blood pressure controlled, home medications continued with dose adjustment as needed 8. Dyslipidemia -Patient is on statin therapy, continued at home dose 9. Obstructive sleep apnea ? On CPAP at night plan is to continue with home statin 10. Class II obesity with BMI of 35.7 ? Weight loss advised 11. DVT prophylaxis - Lovenox 12. Physical deconditioning - Requested for PT OT eval and director social service to assist with discharge planning Physical Exam Narrative GENERAL: cooperative HEENT: Atraumatic; EYES; Anicteric, Normal Conjunctiva NECK; supple, normal thyroid, RESPIRATORY: Diminished to auscultation CARDIOVASCULAR: Regular S1 S2, GI: soft, normoactive bowel sounds, : No Renal angle tenderness; EXTREMITIES: Left foot in surgical dressing MUSCULOSKELETAL: no muscle waisting NEURO: Awake; no lateralizing signs. SKIN: No Rash PSYCH; Flat affect Weight / BMI Weight Weight: 130.2 kg Body Mass Index (BMI) 35.6 ABG / Lab / Microbiology Data Result Diagrams: 06/01/21 05:45 06/01/21 05:45 Laboratory: Laboratory Results - last 24 hr 05/31/21 11:10: POC Glucose 250 H 05/31/21 15:52: POC Glucose 237 H 05/31/21 20:37: POC Glucose 285 H 06/01/21 05:45: WBC 7.6, RBC 4.48 L, Hgb 12.3 L, Hct 40.5, MCV 90.4, MCH 27.5, MCHC 30.4 L, RDW Std Deviation 48.4 H, RDW Coeff of Darrell 14.5, Plt Count 238, MPV 9.9, Immature Gran % (Auto) 0.900, Neut % (Auto) 61.4, Lymph % (Auto) 21.4, Kingfisher % (Auto) 9.4, Eos % (Auto) 6.1 H, Baso % (Auto) 0.8, Absolute Neuts (auto) 4.7, Absolute Lymphs (auto) 1.62, Nucleated RBC % 0 06/01/21 05:45: Sodium 138, Potassium 5.2 H, Chloride 108 H, Carbon Dioxide 29.0, Anion Gap 1 L, BUN 52 H, Creatinine 2.48 H, Estim Creat Clear Calc 34.55, Est GFR (MDRD) Af Amer 34 L, Est GFR (MDRD) Non-Af 28 L, BUN/Creatinine Ratio 21.0 H, Glucose 141 H, Calcium 8.6 06/01/21 07:57: POC Glucose 116 H 06/01/21 11:59: POC Glucose 113 H Microbiology: Microbiology 05/29/21 13:20 Tissue - Left Foot Gram Stain - Final 05/29/21 13:20 Tissue - Left Foot Wound Culture - Final Proteus mirabilis Klebsiella oxytoca Meth. resistant Staph. aureus 05/29/21 13:20 Tissue - Left Foot Gram Stain - Final 05/29/21 13:20 Tissue - Left Foot Wound Culture - Final Meth. resistant Staph. aureus Enterococcus faecalis Klebsiella oxytoca Proteus mirabilis 05/28/21 16:29 Blood Culture (Wb) - Anticubital Left Blood Culture - Preliminary No growth in 48 hours. 05/28/21 16:29 Blood Culture (Wb) - Left Hand Blood Culture - Preliminary No growth in 48 hours. 05/28/21 21:20 Wound - Heel, Left Gram Stain - Final 05/28/21 21:20 Wound - Heel, Left Wound Culture - Final Klebsiella oxytoca Proteus mirabilis Meth. resistant Staph. aureus 05/28/21 17:50 Nasal Secretion SARS-CoV-2 Antigen (Rapid) - Final Radiography Diagnostic Testing: Radiology Impression Venous Doppler Study 05/31/21 11:48 Interpretation Summary There is no evidence of left lower extremity deep vein thrombosis. Left great saphenous vein appears patent and compressible segmentally. Abbreviated COVID-19 protocol utilized Ordering Physician: Tiffany Chapman Performed By: Brayan Fox RVT Meaningful Use Info Meaningful Use Diagnoses (Choose all that apply): None applicable Discharge Plan Admission Admit Date/Time: 05/28/21 19:03 Attending Provider: Nick Brambila Consulting Providers: Walt Raphael ; Shazia Catalan Discharge Orders/Prescriptions Prescriptions: New vancomycin 1.25 gram recon soln 1.25 g IV Q24H Qty: 12 RF: 0 ampicillin-sulbactam 3 gram recon soln 3 g IV Q12H Qty: 24 RF: 0 acetaminophen [Tylenol] 325 mg Tablet 650 mg PO Q4H PRN PRN (Reason: Fever, pain 1-10) Qty: 0 RF: 0 albuterol sulfate 2.5 mg /3 mL (0.083 %) Solution For Nebulization 2.5 mg inhalation Q2H PRN PRN (Reason: Dyspnea, wheezing) Qty: 0 RF: 0 sennosides-docusate sodium [Stool Softener-Stimulant Laxat] 8.6-50 mg Tablet 2 tab PO BID PRN PRN (Reason: Constipation) Qty: 0 RF: 0 melatonin 3 mg Tablet 3 mg PO QHS PRN PRN (Reason: Insomnia) Qty: 0 RF: 0 nicotine 21 mg/24 hr Patch 24 Hour 21 mg transdermal DAILY Qty: 0 RF: 0 oxycodone 5 mg Tablet 10 mg PO Q4H PRN PRN (Reason: Pain Score 4-5) 2 Days Qty: 6 RF: 0 enoxaparin 30 mg/0.3 mL Syringe 30 mg subcut DAILY@0600 Qty: 0 RF: 0 Corwin (with collagen) 7-7-1.5 gram Powder In Packet 1 packet PO BIDCM Qty: 0 RF: 0 Daily Fiber (psyllium-aspart) 3 gram Powder In Packet 1 packet PO DAILY PRN PRN (Reason: Constipation) Qty: 0 RF: 0 Continued atorvastatin 80 MG tablet 80 mg PO QHS RF: 0 ascorbic acid (vitamin C) 1,000 MG tablet 1,000 mg PO TID RF: 0 insulin glargine 100 UNIT/ML solution 35 unit SQ BREAKFAST RF: 0 aspirin 81 MG tablet,chewable 81 mg PO DAILY@0800 RF: 0 insulin lispro 100 UNIT/ML insulin pen See Protocol unit SQ DAILY RF: 0 insulin glargine 100 UNIT/ML insulin pen 40 unit SQ QHS RF: 0 carvedilol 12.5 MG tablet 12.5 mg PO DAILY RF: 0 cholecalciferol (vitamin D3) 125 mcg (5,000 unit) Capsule 125 mcg PO DAILY RF: 0 gabapentin [Neurontin] 800 mg Tablet 800 mg PO TID RF: 0 Discontinued glipizide 10 MG tablet extended release 24hr 10 mg PO DAILY RF: 0 oxycodone-acetaminophen 1 EACH tablet 1 tab PO TID RF: 0 magnesium oxide 500 MG capsule 500 mg PO DAILY RF: 0 Referrals / Follow Up: SULMA OSORIO [Other] SULMA OSORIO [Other] Tiffany Chapman DPM [STAFF PHYSICIAN] - In 1 Week Shazia Catalan MD [STAFF PHYSICIAN] - Within 2 Weeks Walt Raphael MD [STAFF PHYSICIAN] - Within 2 Weeks Disposition Disposition (needs filled in before D/C Order can be placed): [facility] Facility Charges/Coding Visit Charges Inpatient E&M: 99506 Disch Hosp
--- NOTE | 2021-06-01 14:05 | CASEMGMT ---
Addendum entered by Liana Tamez 06/01/21 14:27: SW received call from pt's daughter Marivel and updated her on pt's discharge to TCU today. Marivel states understanding. Original Note: Social Work Note Pt to discharge to TCU today. SW in to speak with pt. SW introduced self and role at [facility]. SW informed pt that he will discharge to TCU today. Pt gave this worker permission to call his daughter Marivel to update. SW attempted to call pt's daughter Marivel, no answer, SW left message for Marivel to call this worker back for update on pt. Plan: TCU today Liana Tamez PRICE LISTER, WEB ENGINEER
[2021-06-01 15:10] VITALS: BP 134/71; PULSE 57; RESP 18; TEMP 36.6; O2SAT 95
--- NOTE | 2021-06-01 16:35 | NURSING ---
report called to LU Thomas for discharge to TCU.
[2021-06-01 16:50] LABS: Bedside Glucose 99 mg/dL (70-110)
--- NOTE | 2021-06-01 17:09 | NURSING ---
call to patient access registrarRN. Richard is coming and ETA around 1900
[2021-06-01 20:34] VITALS: BP 154/72; PULSE 58; RESP 18; TEMP 36.6; O2SAT 93
== END 2021-06-01 21:00 | disposition skilled nursing facility (03) | DRG 853 ==
LOC: ED 18:46 → MS3 19:11
PROVIDERS: Internal Medicine Nephrology; Nurse Practitioner Adult Health; Podiatrist; Admitting Provider Family Medicine; Emergency Provider Emergency Medicine; Visit Provider Internal Medicine
PROC: 0JBR0ZZ Excision of Left Foot Subcutaneous Tissue and Fascia, Open Approach (ICD-10-PCS; principal; 2021-05-29 11:50)
DX: A41.9 Sepsis, unspecified organism (principal); J96.21 Acute and chronic respiratory failure with hypoxia; L97.423 Non-pressure chronic ulcer of left heel and midfoot with necrosis of muscle; E87.1 Hypo-osmolality and hyponatremia; L03.116 Cellulitis of left lower limb; N17.9 Acute kidney failure, unspecified; N18.4 Chronic kidney disease, stage 4 (severe); L02.612 Cutaneous abscess of left foot; J43.2 Centrilobular emphysema; E11.22 Type 2 diabetes mellitus with diabetic chronic kidney disease; E11.42 Type 2 diabetes mellitus with diabetic polyneuropathy; E11.621 Type 2 diabetes mellitus with foot ulcer; Z79.4 Long term (current) use of insulin; E11.65 Type 2 diabetes mellitus with hyperglycemia; E87.5 Hyperkalemia; I12.9 Hypertensive chronic kidney disease with stage 1 through stage 4 chronic kidney disease, or unspecified chronic kidney disease; E78.5 Hyperlipidemia, unspecified; G47.33 Obstructive sleep apnea (adult) (pediatric); G60.9 Hereditary and idiopathic neuropathy, unspecified; E86.0 Dehydration; I25.2 Old myocardial infarction; E86.1 Hypovolemia; Z79.82 Long term (current) use of aspirin; Z87.891 Personal history of nicotine dependence; E66.09 Other obesity due to excess calories; Z68.35 Body mass index [BMI] 35.0-35.9, adult; R60.0 Localized edema; H91.90 Unspecified hearing loss, unspecified ear; Z20.822 Contact with and (suspected) exposure to COVID-19; Z79.899 Other long term (current) drug therapy; Z90.5 Acquired absence of kidney; R13.10 Dysphagia, unspecified; Z85.528 Personal history of other malignant neoplasm of kidney; Z86.14 Personal history of Methicillin resistant Staphylococcus aureus infection; Z95.5 Presence of coronary angioplasty implant and graft
CPT/HCPCS: 36415; 36600; 71046; 73630; 74230; 80048; 80053; 80202; 81001; 81002; 82570; 82803; 82962; 83036; 83605; 83735; 84156; 84300; 85025; 85652; 86140; 87015; 87040; 87070; 87075; 87077; 87102; 87116; 87186; 87205; 87206; 87426; 87640; 92610; 92611; 93005; 93971; 94640; 97162; 97166; 97802; 99251; 99285; J7030; J7040; J7050; A4216; G0463; J0696; J2405

== ENCOUNTER 2021-06-01 21:18 | Inpatient (IN) | payer MEDICARE, BC, SELFPAY ==
[2021-06-01 21:24] VITALS: BP 154/67; PULSE 53; PULSE 57; RESP 18; TEMP 36.8; O2SAT 93; BMI 34.9
--- NOTE | 2021-06-01 21:47 | HP.PCM_ITS ---
HPI - General General Date of Admission: 06/01/21 HPI Narrative 05/28/2021 JUAREZ GOODRICH, is a 65 Male who presents to [facility] Emergency Department with wound. Left heel diabetic foot ulcer, increased pain, swelling, redness, purulent drainage. Had wound x 12 months, followed at Wound Center. Left heel debrided at Wound Center. WBC 20.4, Doppler ultrasound negative for DVT, X-ray left foot negative bony destruction. Vancomycin/Zosyn given, blood cultures sent, Morphine given for pain. 05/28/2021 Admit to Hospital. Vancomycin/Zosyn given, check MRSA PCR. Hydration for hyponatremia. Monitor acute kidney injury, hyperkalemia. 05/29/2021 Dr. Raphael MRSA, Proteus, Enterococcus, Anaerobic cocci, bacteroides. Wound culture pending. MRSA PCR positive. Vancomycin/Zosyn IV. Refused covid19 vaccine. 05/29/2021 Dr. Chapman performed debridement non viable soft tissue and ulcer (excisional) left foot incision, drainage left foot, heavy pus drained. 05/30/2021 Significant left foot pain. Kidney function worse. 05/30/2021 Dr. Jaimes recommended renal ultrasound, FENA, continue IV fluids, monitor basic metabolic panel. 05/31/2021 Pain controlled. Cultures growing Klebsiella Oxytoca, gram negative rods, gram positive cocci. Acute kidney injury improved, Creatinine 3.09. Continue Vancomycin/Zosyn. 06/01/2021 Culture growing MRSA, E. Faecalis, K. Oxytoca, P. Mirabilis. Acute kidney injury improved, Creatinine 2.48, baseline. Potassium improved from 5.4 to 5.2. 06/01/[address] Raphael recommended Vancomycin/Zosyn x 2 weeks, then 4 weeks oral Doxycycline/Augmentin. 06/01/2021 Admit to TCU with debility, here for rehabilitation, strengthening, intravenous antibiotics, prior to discharge home alone. [facility] Medical History (Updated 06/01/21 @ 22:[address] Herminio Peng MD) Cancer Chest pain CKD (chronic kidney disease), stage III COPD (chronic obstructive pulmonary disease) Current use of insulin Difficulty swallowing DVT (deep venous thrombosis) Former tobacco use History of kidney cancer Myocardial infarct Obesity CAMACHO (obstructive sleep apnea) Polycythemia secondary to hypoxia Status post debridement of ulcer of heel Type 2 diabetes mellitus with diabetic polyneuropathy Wears hearing aid in both ears Home Medications ascorbic acid (vitamin C) 1,000 mg PO TID 07/11/20 [History Last Taken 05/27/21] aspirin 81 mg PO DAILY@0800 07/11/20 [History Last Taken 05/27/21] atorvastatin 80 mg PO QHS 07/11/20 [History Last Taken 05/27/21] insulin glargine 35 unit SQ BREAKFAST 07/11/20 [History Last Taken 06/01/21 08:00] insulin glargine 40 unit SQ QHS 07/11/20 [History Last Taken 05/31/21 20:40] insulin lispro See Protocol SQ DAILY 07/11/20 [History Last Taken 05/27/21] carvedilol 12.5 mg PO DAILY 08/17/20 [History Last Taken 06/01/21 08:10] cholecalciferol (vitamin D3) 125 mcg PO DAILY 05/28/21 [History Last Taken 05/27/21] gabapentin [Neurontin] 800 mg PO TID 05/31/21 [History Last Taken Unknown] acetaminophen [Tylenol] 650 mg PO Q4H PRN PRN #0 tab 06/01/21 [Rx Last Taken 05/31/21 03:15] albuterol sulfate 2.5 mg INHALATION Q2H PRN PRN #0 ml 06/01/21 [Rx Last Taken Unknown] ampicillin-sulbactam 3 g IV Q12H 06/01/21 [History Last Taken Unknown] [id number] [Corwin (with collagen)] 1 packet PO BIDCM 06/01/21 [History Last Taken 06/01/21 08:05] enoxaparin 30 mg SUBCUT DAILY@0600 06/01/21 [History Last Taken 06/01/21 05:30] melatonin 3 mg PO QHS PRN PRN #0 tab 06/01/21 [Rx Last Taken Unknown] nicotine 21 mg TRANSDERMAL DAILY 06/01/21 [History Last Taken 05/30/21 10:00] oxycodone 10 mg PO Q4H PRN PRN 2 Days #6 tab 06/01/21 [Rx Last Taken 05/31/21 03:15] psyllium husk (aspartame) [Daily Fiber (psyllium-aspart)] 1 packet PO DAILY PRN PRN #0 ea 06/01/21 [Rx Last Taken Unknown] sennosides-docusate sodium [Stool Softener-Stimulant Laxat] 2 tab PO BID PRN PRN #0 tab 06/01/21 [Rx Last Taken Unknown] vancomycin 1.25 g IV Q24H 06/01/21 [History Last Taken Unknown] Allergy/AdvReac Type Severity Reaction Status Date / Time codeine AdvReac Nausea Verified 05/28/21 14:35 promethazine [From Phenergan] AdvReac Nausea Verified 05/28/21 14:35 Family History Father CVA (cerebral vascular accident) Myocardial infarction Mother Dementia Surgical History History of appendectomy History of coronary artery stent placement History of surgery on arm Hx of partial nephrectomy Previous back surgery S/P appendectomy Social History household members: none Smoking Status: Former smoker quit date: 05/19/15 Tobacco: How many years used: 50 how long ago did patient quit smoking: Smoked ~1/2 ppd x 50 years until quit. alcohol intake: never substance use type: does not use ROS Constitutional Constitutional: Denies chills, fever(s) or weight gain ENT HEENT: Denies headache(s), nasal congestion or nasal discharge Cardiovascular Cardiovascular: Denies chest pain or palpitations Respiratory/Chest Respiratory/Chest: Denies cough, excessive phlegm production or shortness of breath with exertion Gastrointestinal Gastrointestinal: Denies abdominal pain, nausea or vomiting Genitourinary Genitourinary: Denies dysuria Musculoskeletal Musculoskeletal: Denies joint pain or joint swelling Integumentary Integumentary: Denies rash or wounds Neurologic Neurologic: Denies focal weakness, numbness or tingling Psychiatric Psychiatric: Denies anxiety, auditory hallucinations, depression, homicidal ideation or suicidal ideation Vital Signs Vital Signs Vital Signs: 06/01/21 21:24 Temperature 98.3 F Temperature Source Temporal Pulse Rate 57 L Respiratory Rate 18 Blood Pressure 154/67 H Blood Pressure Mean 96 Blood Pressure Source Monitor Pulse Ox 93 Oxygen Delivery Method Room Air Physical Exam Const alert and oriented x3 General Appearance: cooperative HEENT normocephalic Eyes PERRL and EOMs intact bilaterally Neck supple, no JVD and no carotid bruits Resp normal respiratory effort, normal air movement and clear to auscultation bilaterally Cardio regular rate and regular rhythm GI normal to inspection, nondistended, normoactive bowel sounds, non-tender and non-distended Extremity normal capillary refill General Extremity: Negative for edema Skin no rashes or lesions noted Skin Narrative: Left heel ulcer per wound nurse. General Skin Exam: no breakdown Psych affect normal Appearance: appropriate Assessment & Plan Assessment/Plan (1) Debility: (2) Sepsis: (3) Diabetic infection of left foot: (4) Hyponatremia: (5) Hyperkalemia: (6) Acute kidney injury: (7) Diabetes mellitus: (8) Hyperlipidemia: (9) Hypomagnesemia: (10) Vitamin D deficiency: (11) Chronic kidney disease, stage 4 (severe): PLAN: 65 year old male with below past medical history hospitalized for sepsis, infected left diabetic heel ulcer requiring debridement, complicated by acute kidney injury, hyperkalemia, admitted to TCU with debility, here for rehabilitation, strengthening, intravenous antibiotics, prior to discharge home alone. * Debility - PT/OT. * Pain - Tylenol 1000mg q6h prn (1-3), Oxycodone 10mg q4h prn pain (4-10). * Bowel - Miralax 17gm bid, Senna/colace 2 tablets bid, Dulcolax 10mg daily prn. * Adult immunization - Administer prevnar 13, pneumovax 23, fluzone, covid19 vaccine as appropriate. * DVT prophylaxis - Lovenox 30mg sc daily. * Shortness of breath - Albuterol 2.5mg nebulized q2h prn. * Infected diabetic left foot ulcer - Unasyn 3gm iv q12h, Vancomycin 1.25gm iv q24h, consult Dr. Chapman, consult Dr. Raphael to follow. * Vitamin C deficiency - Vitamin C 1000mg tid. * CV prophylaxis - Aspirin 81mg daily. * Hyperlipidemia - Atorvastatin 80mg qhs. * Hypertension - Coreg 12.5mg daily. * Vitamin D deficiency - D3 125mcg daily. * Diabetic neuropathy - Gabapentin 800mg tid. * Diabetes Mellitus II - Lantus 35 units qam, 40 units qhs. * Nutrition - Corwin 1 packet bid. * Insomnia - Melatonin 3mg qhs prn. * Tobacco abuse - Nicotine patch 21mg td daily. * Acute kidney injury/chronic kidney disease stage 4 - consult Dr. Jaimes.
--- NOTE | 2021-06-01 21:51 | NURSING ---
Patient arrived to unit via bed. Transferred into TCU bed x2 assist. Patient upset his back is towards the door. Attempted to move patients bed around to satisfy patient. Patient still unsatisfied. Patient moved to room #5 and now patient is happy.
--- NOTE | 2021-06-01 21:59 | NURSING ---
Attempted to do patient assessment at this time. Patient phone rang and patient stated to this Nurse, I don't have time for your stuff right now. Will attempt again at a later time.
[2021-06-01 22:36] LABS: Bedside Glucose 137 mg/dL (70-110)
[2021-06-01] MEDS: Atorvastatin Calcium 80 MG Tablet PO (23:22)
--- NOTE | 2021-06-02 00:02 | PCM.RX.CS ---
Consult Pharmacy has been consulted to manage selected antiobiotic: Vancomycin Type of Consult: New start Suspected Infection: Osteomyelitis Goal Trough: 15-20 mcg/mL Pharmacy Plan for Drug Dosing: Pharmacy Service will continue to monitor and adjust dosing as required. TRANSFER FROM MS3 ON VANCO 1250 Q24H. LAST TROUGH 05/30 WAS 17.6. CONTINUE CURRENT DOSE AND DRAW TROUGH 06/02 Follow-Up Labs: Trough Vancomycin Labs to be done on [date and time ordered]: 06/02 @ 1632
--- NOTE | 2021-06-02 00:07 | NURSING ---
While doing skin assessment on patient. Patient requesting that this Nurse put his piercing that were taken out prior to surgery, back into the penis and scrotum. Roger LEIGH and this Nurse advised patient we cannot do that. Patient then expressed, Please put them back in, if I don't they'll close. Continued to tell patient that we cannot put piercing back in that if he wanted he could do it himself.
[2021-06-02 06:23] LABS: Absolute Lymphocyte Count 1.86 X10^3/uL (0.83-4.51); Absolute Neutrophil Count 5.2 X10^3/uL (2.0-7.7); Basophil# 0.08 X10^3/uL; Basophil% 0.9 % (0-1); Eosinophil# 0.47 X10^3/uL; Eosinophils% 5.6 % (0-5); Hematocrit 42.9 % (40-54); Hemoglobin 13.1 g/dL (13.0-16.5); Lymphocyte # 1.86 X10^3/ul (0.83-4.51); Mean Corp Hgb Conc 30.5 g/dL (32-36); Mean Corpuscular Hgb 27.3 pg (27.0-32.0); Mean Corpuscular Volume 89.4 fL (80-94); Monocyte# 0.82 X10^3/uL; Monocyte% 9.7 % (0-10); NRBC Flagged by Analyzer 0 % (0-5); Neutrophil # 5.15 X10^3/uL (2.7-7.7); Neutrophil % 61.1 % (47-70); Platelet Count 264 K/mm3 (150-450); RBC Distribution Width CV 14.6 % (11.6-14.6); RBC Distribution Width SD 48.1 fl (35.1-43.9); White Blood Count 8.4 K/mm3 (4.4-11.0)
[2021-06-02 06:49] LABS: Anion Gap 2 (5-15); BUN 42 mg/dL (7-18); BUN/Creat Ratio 20.7 RATIO (10-20); Calcium,Total 8.8 mg/dL (8.5-10.1); Chloride 107 mmol/L (98-107); Creatinine, Serum 2.03 mg/dL (0.70-1.30); EST Glomerular Filtration Rate 35 mL/min (>60); Est Glom Filt Rate - Afr Amer 42 mL/min (>60); Glucose 85 mg/dL (74-106); Potassium 4.8 mmol/L (3.5-5.1); Sodium Level 139 mmol/L (136-145)
[2021-06-02 06:56] LABS: Bedside Glucose 88 mg/dL (70-110)
[2021-06-02] MEDS: Senna/Docusate Sodium 1 Tablet 2 TABLET PO (07:34)
[2021-06-02] MEDS: Ascorbic Acid 500 MG Tablet 1000 MG PO ×3 (07:34→21:28)
[2021-06-02] MEDS: Cholecalciferol (VIT D3) 25 MCG TABLET (1,000 UNITS) 125 MCG PO (07:34)
[2021-06-02] MEDS: Carvedilol 12.5 MG Tablet PO (07:36)
[2021-06-02] MEDS: Enoxaparin 30 MG/0.3 ML Syringe SC (07:36)
[2021-06-02] MEDS: Gabapentin 800 MG Tablet PO ×3 (07:40→21:28)
[2021-06-02] MEDS: Juven (unflavored) Packet 1 PACKET PO ×2 (07:41→17:42)
[2021-06-02] MEDS: Aspirin 81 MG TAB.CHEW PO (07:42)
[2021-06-02 09:11] LABS: Bedside Glucose 209 mg/dL (70-110)
[2021-06-02 09:58] VITALS: PULSE 71; RESP 18; O2SAT 91
[2021-06-02 11:00] LABS: Bedside Glucose 254 mg/dL (70-110)
[2021-06-02] MEDS: Tuberculin,Purif.prot.deriv. 50 TU/ML Vial 0.1 ML ID (12:59)
--- NOTE | 2021-06-02 13:02 | NURSING ---
Per daughter Marivel, pt is a heavy smoker and can get irritable and agitated when he goes through withdrawls.
--- NOTE | 2021-06-02 13:25 | PN_ITS ---
Subjective Subjective This 65 year old male with diabetes and other comorbidities was seen bedside for POD#4 for left lower extremity incision and drainage with widespread debridement of the heel and arch abscess including tendon sheath. He denies fever, nausea, vomiting, shortness of breath, chest pain, calf pain. He does have occasional chills that he started noticing at the onset of his severe recent infection. He has some continued left leg swelling and is sitting with his legs dangling in a chair at this time. His pain is controlled at this time. He was seen in the transitional care unit with his daughter Shyann pagan. Objective Data Objective Data Vital Signs: Vital Signs Temp Pulse Resp BP Pulse Ox 98.3 F 71 18 154/67 H 91 06/01/21 21:24 06/02/21 09:58 06/02/21 09:58 06/01/21 21:24 06/02/21 09:58 Oxygen Delivery Method Room Air Weight: 127 kg Body Mass Index (BMI) 34.9 Intake & Output: Intake and Output for Last 24 Hours 05/31/21 06/01/21 06/02/21 23:59 23:59 23:59 Intake Total 624 / 624 Balance 624 / 624 Lab / Micro Data Result Diagrams: 06/02/21 05:27 06/02/21 05:27 Labs: Laboratory Results - last 24 hr 06/01/21 22:28: POC Glucose 137 H 06/02/21 05:27: WBC 8.4, RBC 4.80, Hgb 13.1, Hct 42.9, MCV 89.4, MCH 27.3, MCHC 30.5 L, RDW Std Deviation 48.1 H, RDW Coeff of Darrell 14.6, Plt Count 264, MPV 10.0, Immature Gran % (Auto) 0.700, Neut % (Auto) 61.1, Lymph % (Auto) 22.0, [place] % (Auto) 9.7, Eos % (Auto) 5.6 H, Baso % (Auto) 0.9, Absolute Neuts (auto) 5.2, Absolute Lymphs (auto) 1.86, Nucleated RBC % 0 06/02/21 05:27: Sodium 139, Potassium 4.8, Chloride 107, Carbon Dioxide 30.0, Anion Gap 2 L, BUN 42 H, Creatinine 2.03 H, Estim Creat Clear Calc 42.20, Est GFR (MDRD) Af Amer 42 L, Est GFR (MDRD) Non-Af 35 L, BUN/Creatinine Ratio 20.7 H , Glucose 85, Calcium 8.8 06/02/21 06:22: POC Glucose 88 06/02/21 09:01: POC Glucose 209 H 06/02/21 10:45: POC Glucose 254 H Physical Exam Narrative Const alert and no apparent distress General Appearance: cooperative and comfortable Extremity left calf swelling decreased and discomfort resolved lower extremity edema bilateral lower extremities. no streaking or odor. the dressing is clean, dry, intact to left lower extremity including wound vac without evidence of leaking at the widespread debridement and drainage sites. No odor noted. compartments remain soft to palpate. no fluctuance or bogginess on palpation to left lower extremity General Extremity: Negative for clubbing or cyanosis to digits. Vasc normal capillary refill, no acute ischemic skin changes noted, normal temperature Skin Skin Narrative: Wound Narrative: Neuro Neuro Narrative: Assessment & Plan Assessment/Plan (1) Abscess of left foot: (2) Ulcer of left foot with necrosis of muscle: (3) Cellulitis of left foot: PLAN: I reviewed and discussed his case. He is POD #4. The following work up and care recommendations were made: Infection: Clinical improvement noted. He is afebrile and his vital signs are stable. Cont on vanc/zosyn. Infectious disease on consult and appreciated. He is at risk for amputation and this was discussed again today. Dressing: Continue wound vac 150 mmHg continuous three times per week. Offloading: To maintain a strict nonweightbearing status to left lower extremity and use assistive device. To work with PT and OT. Vascular: Arterial studies were reviewed. Showing likely adequate perfusion for healing. Right LAI is 0.99 and left 1.18. Right toe brachial index 0.76 and left 0.71. Referral to Dr. Campos for potential venous and arterial intervention was provided today. He went for consultationon 04-11-21. Will recheck duplex to make sure normal posterior tibial flow into the area of the wound. normal prior LAI noted. Edema: Kevin wrap, elevation, and dietary salt restrictions are recommended. Eddi ous doppler ordered to rule out DVT; negative finding noted. Pain: controlled with pain medication prn morphine and oxycodone. Host factors: His comorbidities are noted and he is at risk for continued delayed or nonhealing. Medicine team consulted for medical management of COPD, diabetes type 2 with peripheral polyneuropathy, CKD stage III, hyperkalemia hyponatremia elevated liver function tests, hypertension, hyperlipidemia, obesity. Medical management is appreciated. Smoking and tobacco cessation is recommended. To continue nutritional supplementation to optimize the healing process. Discharge planning: in Transitional care unit at this time. He may benefit from extended skilled facility care during his entire wound healing process. I answered all of his questions. The podiatry team will continue to follow him closely while in house 1 to 2 times weekly. His daughter was bedside during the exam and discussion. Tiffany Chpaman DPM, [facility] [phone]
[2021-06-02] MEDS: oxyCODONE 5 MG Tablet 10 MG PO ×2 (14:18→21:39)
[2021-06-02] MEDS: Acetaminophen 500 MG Tablet 1000 MG PO ×2 (14:19→21:38)
[2021-06-02 14:51] VITALS: BP 163/61; PULSE 62; RESP 18; TEMP 36; O2SAT 91
[2021-06-02 17:13] LABS: Vancomycin, Trough Level 19.2 ug/mL (5.0-15.0)
--- NOTE | 2021-06-02 17:32 | PCM.RX.CS ---
Consult Pharmacy has been consulted to manage selected antiobiotic: Vancomycin Type of Consult: Follow-up Prior Doses of Antibiotics Received/Current Regimen: current dose is vanc 1250mg IV q24h Labs: Sodium 139 mmol/L (136-145) 06/02/21 05:27 Potassium 4.8 mmol/L (3.5-5.1) 06/02/21 05:27 Chloride 107 mmol/L (98-107) 06/02/21 05:27 Carbon Dioxide 30.0 mmol/L (21.0-32.0) 06/02/21 05:27 Anion Gap 2 (5-15) L 06/02/21 05:27 BUN 42 mg/dL (7-18) H 06/02/21 05:27 Creatinine 2.03 mg/dL (0.70-1.30) H 06/02/21 05:27 Est GFR (MDRD) Af Amer 42 mL/min (>60) L 06/02/21 05:27 Est GFR (MDRD) Non-Af 35 mL/min (>60) L 06/02/21 05:27 BUN/Creatinine Ratio 20.7 RATIO (10-20) H 06/02/21 05:27 Glucose 85 mg/dL (74-106) 06/02/21 05:27 Vancomycin Trough 19.2 ug/mL (5.0-15.0) H 06/02/21 16:27 Weight used for dosin kg Estimated Creatinine Clearance: 51ml/min Goal Trough: 15-20 mcg/mL Pharmacy Plan for Drug Dosing: The vanc trough drawn at 16:27 today (approx 23.5 hours after the previous dose) was 19.2. This is still within goal range so will keep same dosing but will recheck another trough in 2 days to make sure it is not rising further above goal. The patient's CrCl of 51 ml/min was calculated using an adjusted body weight of 101.5kg per protocol. Pharmacy Service will continue to monitor and adjust dosing as required. Follow-Up Labs: Trough Vancomycin Labs to be done on [date and time ordered]: 06/04/21 16:30
[2021-06-02 17:35] LABS: Bedside Glucose 267 mg/dL (70-110)
[2021-06-02] MEDS: Atorvastatin Calcium 80 MG Tablet PO (21:27)
[2021-06-02 21:31] LABS: Bedside Glucose 310 mg/dL (70-110)
[2021-06-03] MEDS: Carvedilol 12.5 MG Tablet PO (06:38)
[2021-06-03] MEDS: Enoxaparin 30 MG/0.3 ML Syringe SC (06:38)
[2021-06-03] MEDS: Gabapentin 800 MG Tablet PO ×3 (06:39→21:12)
[2021-06-03] MEDS: Ascorbic Acid 500 MG Tablet 1000 MG PO ×3 (06:40→21:10)
[2021-06-03] MEDS: Cholecalciferol (VIT D3) 25 MCG TABLET (1,000 UNITS) 125 MCG PO (06:40)
[2021-06-03] MEDS: 0.9% Saline Lock 10 ML Syringe IV ×2 (06:42→16:01)
[2021-06-03] MEDS: Acetaminophen 500 MG Tablet 1000 MG PO ×2 (06:48→22:14)
[2021-06-03] MEDS: oxyCODONE 5 MG Tablet 10 MG PO ×3 (06:48→21:18)
[2021-06-03] MEDS: Aspirin 81 MG TAB.CHEW PO (07:52)
[2021-06-03] MEDS: Juven (unflavored) Packet 1 PACKET PO ×2 (07:52→16:00)
[2021-06-03 10:00] VITALS: PULSE 65; RESP 18; O2SAT 90
[2021-06-03 11:01] LABS: Bedside Glucose 284 mg/dL (70-110)
[2021-06-03 14:39] VITALS: BP 107/62; PULSE 70; RESP 18; TEMP 35.9; O2SAT 90
[2021-06-03 15:50] LABS: Bedside Glucose 156 mg/dL (70-110)
[2021-06-03 15:56] LABS: Bedside Glucose 266 mg/dL (70-110)
[2021-06-03] MEDS: Atorvastatin Calcium 80 MG Tablet PO (21:13)
[2021-06-03 21:21] LABS: Bedside Glucose 314 mg/dL (70-110)
--- NOTE | 2021-06-03 21:33 | NURSING ---
Dr. Peng contacted via telephone regarding blood glucose 315 and recent blood glucose levels and current insulin orders. New order received for Humalog 10units SC x1 now and Humalog 10 units SC TID with meals
[2021-06-03] MEDS: Insulin Lispro 100 UNIT/ML INSULN.PEN 10 UNIT SC (22:10)
[2021-06-04] MEDS: Enoxaparin 30 MG/0.3 ML Syringe SC (05:00)
[2021-06-04] MEDS: Carvedilol 12.5 MG Tablet PO (05:01)
[2021-06-04] MEDS: Gabapentin 800 MG Tablet PO ×3 (05:01→22:06)
[2021-06-04] MEDS: Cholecalciferol (VIT D3) 25 MCG TABLET (1,000 UNITS) 125 MCG PO (05:01)
[2021-06-04] MEDS: Ascorbic Acid 500 MG Tablet 1000 MG PO ×3 (05:01→22:06)
[2021-06-04] MEDS: Acetaminophen 500 MG Tablet 1000 MG PO ×3 (05:02→22:22)
[2021-06-04] MEDS: oxyCODONE 5 MG Tablet 10 MG PO ×3 (05:02→22:19)
[2021-06-04] MEDS: 0.9% Saline Lock 10 ML Syringe IV ×3 (05:06→22:07)
[2021-06-04 06:25] LABS: Bedside Glucose 136 mg/dL (70-110)
[2021-06-04] MEDS: Aspirin 81 MG TAB.CHEW PO (08:38)
[2021-06-04] MEDS: Insulin Lispro 100 UNIT/ML INSULN.PEN 10 UNIT SC ×3 (08:38→18:08)
[2021-06-04] MEDS: Juven (unflavored) Packet 1 PACKET PO ×2 (08:44→18:09)
--- NOTE | 2021-06-04 09:33 | WOUNDNOTE ---
wound photo: left foot
--- NOTE | 2021-06-04 10:24 | NURSING ---
Infectious Disease was following pt on acute side of hospital for ATB tx for left foot wound. Dr. Raphael's office updated on pt transferring to TCU and consult still being requested. Dr. Catalan's office was called to update about nephrology consult but no answer stating office is closed today.
[2021-06-04 10:56] LABS: Bedside Glucose 226 mg/dL (70-110)
--- NOTE | 2021-06-04 12:09 | CASEMGMT ---
Social Work Met with patient for initial assessment. Discussed code status and MOLST form. Pt confirmed full code. MOLST form communicated to , placed in chart. Explained Medicare benefit. Encouraged to contact secondary insurance to ensure copay coverage. The goal is for pt to return home alone to 1st floor set up. Pt has IV ATB until 06/13, wounds and wound vac. Pt has home bipap in room. SW to continue to follow for DC planning. Corrine Palafox, TECHNICAL EXPERT HYDROGENATION OPERATOR
--- NOTE | 2021-06-04 12:09 | NURSING ---
Resident educated on the COVID 19 Vaccine and does not want to receive it at this time.
--- NOTE | 2021-06-04 12:49 | NURSING ---
ROSA Addison in today for nephrology consult. Raymond KRISHNAN tomorrow
[2021-06-04 13:30] VITALS: BP 140/69; PULSE 69; RESP 18; TEMP 36; O2SAT 95
--- NOTE | 2021-06-04 13:59 | PCM.PN.ID ---
Physical Exam Narrative Feeling ok, but foot sore. No fever. Const no apparent distress General Appearance: cooperative Resp normal air movement and clear to auscultation bilaterally Cardio regular rate and regular rhythm GI soft to palpation and non-tender Skin Skin Narrative: foot wrapped, reviewed photos ID ID: Route of nutrition/ use of supplements: [] Nutritional Intake: [] IV Site: [] Gonzales Catheter: [] Assessment & Plan Assessment/Plan (1) Diabetic infection of left foot: PLAN: Sepsis with fever, leukocytosis, PATRICK on CKD, due to L foot infected ulcer. Wound cx here with klebs, proteus, MRSA. MRSA pcr (+). Taken to OR 05/29 with heavy pus drained, surg cx with mrsa, enterococcus, klebs, proteus; did see sinus tract down to periosteal level. Refuses covid vaccine. Cr improved. On 2 weeks iv vanc/unasyn. After that point will do 4 weeks po abx, with doxy and augmentin. Will increase dose of unasyn due to improved GFR. Will follow
--- NOTE | 2021-06-04 14:12 | NURSING ---
Dr. Raphael in today and saw pt, unasyn changed from Q12h to Q8h
--- NOTE | 2021-06-04 14:45 | NURSING ---
Resident and daughter, Shyann, notified of 2 staff members testing positive for COVID.
[2021-06-04 16:21] LABS: Bedside Glucose 263 mg/dL (70-110)
[2021-06-04 17:52] LABS: Vancomycin, Trough Level 19.9 ug/mL (5.0-15.0)
[2021-06-04 21:41] LABS: Bedside Glucose 290 mg/dL (70-110)
[2021-06-04] MEDS: Atorvastatin Calcium 80 MG Tablet PO (22:06)
[2021-06-04 22:21] VITALS: PULSE 66; RESP 18; O2SAT 92
[2021-06-05 06:31] LABS: Anion Gap 4 (5-15); BUN 47 mg/dL (7-18); BUN/Creat Ratio 21.9 RATIO (10-20); Calcium,Total 8.9 mg/dL (8.5-10.1); Chloride 104 mmol/L (98-107); Creatinine, Serum 2.15 mg/dL (0.70-1.30); EST Glomerular Filtration Rate 33 mL/min (>60); Est Glom Filt Rate - Afr Amer 40 mL/min (>60); Estimated Creatinine Clearance 39.85 ml/min; Glucose 159 mg/dL (74-106); Potassium 4.6 mmol/L (3.5-5.1); Sodium Level 138 mmol/L (136-145)
[2021-06-05] MEDS: Carvedilol 12.5 MG Tablet PO (06:40)
[2021-06-05 06:41] LABS: Bedside Glucose 168 mg/dL (70-110)
[2021-06-05] MEDS: Ascorbic Acid 500 MG Tablet 1000 MG PO ×3 (06:41→22:32)
[2021-06-05] MEDS: Enoxaparin 30 MG/0.3 ML Syringe SC (06:41)
[2021-06-05] MEDS: Gabapentin 800 MG Tablet PO ×3 (06:41→22:32)
[2021-06-05] MEDS: Cholecalciferol (VIT D3) 25 MCG TABLET (1,000 UNITS) 125 MCG PO (06:42)
[2021-06-05] MEDS: oxyCODONE 5 MG Tablet 10 MG PO ×4 (06:46→19:43)
[2021-06-05] MEDS: Acetaminophen 500 MG Tablet 1000 MG PO ×2 (07:00→15:09)
[2021-06-05] MEDS: 0.9% Saline Lock 10 ML Syringe IV ×3 (07:01→22:35)
[2021-06-05] MEDS: Insulin Lispro 100 UNIT/ML INSULN.PEN 15 UNIT SC ×3 (07:58→18:08)
[2021-06-05] MEDS: Aspirin 81 MG TAB.CHEW PO (07:58)
[2021-06-05] MEDS: Juven (unflavored) Packet 1 PACKET PO ×2 (07:59→18:15)
[2021-06-05 11:00] LABS: Bedside Glucose 244 mg/dL (70-110)
--- NOTE | 2021-06-05 11:13 | PCM.PN.REN ---
Subjective Subjective Following for PATRICK on CKD no overnight events. Just medicated for left foot pain Objective Data Objective Data Vital Signs: Vital Signs Temp Pulse Resp BP Pulse Ox 96.8 F L 66 18 140/69 H 92 06/04/21 13:30 06/04/21 22:21 06/04/21 22:21 06/04/21 13:30 06/04/21 22:21 Oxygen Delivery Method Room Air Weight: 127 kg Body Mass Index (BMI) 34.9 Intake & Output: Intake and Output for Last 24 Hours 06/03/21 06/04/21 06/05/21 23:59 23:59 23:59 Intake Total 979 / 979 1811 / 1811 592 / 592 Balance 979 / 979 1811 / 1811 592 / 592 Lab / Micro Data Result Diagrams: 06/02/21 05:27 06/05/21 05:12 Labs: Laboratory Results - last 24 hr 06/04/21 16:14: POC Glucose 263 H 06/04/21 16:30: Vancomycin Trough 19.9 H 06/04/21 21:10: POC Glucose 290 H 06/05/21 05:12: Sodium 138, Potassium 4.6, Chloride 104, Carbon Dioxide 30.0, Anion Gap 4 L, BUN 47 H, Creatinine 2.15 H, Estim Creat Clear Calc 39.85, Est GFR (MDRD) Af Amer 40 L, Est GFR (MDRD) Non-Af 33 L, BUN/Creatinine Ratio 21.9 H, Glucose 159 H, Calcium 8.9 06/05/21 06:27: POC Glucose 168 H 06/05/21 10:52: POC Glucose 244 H Physical Exam Narrative Const: NAD. A&Ox3 Cardio: S1S2, RRR Resp: CTAB GI: Abdomen soft, rounded Extremity: no pitting edema. wound vac left foot Assessment & Plan Assessment/Plan (1) Chronic kidney disease, stage 4 (severe): (2) Acute kidney injury: (3) Diabetic infection of left foot: (4) HTN (hypertension) with goal to be determined: PLAN: - Patient developed nonoliguric hypovolemic PATRICK superimposed on CKD; PATRICK likely prerenal. SCr peaked at 3.68 mg/dL on 05/30/2021, today SCr 2.15mg/dL. Patient did require IVF for a few days as he had poor appetite. Does not need any further IVF at this time. Currently renal function stable, at baseline. Patient did not require ANIMAL [employer]ARK CODE ENFORCEMENT OFFICER. - History of Chronic kidney disease, stage 4; The patient has underlying stage IV CKD. Serum creatinine is around 2.7-2.9 at baseline. The patient likely has diabetic kidney disease. He follows with puddler helper in [place] every 3 months. - Bps acceptable on Coreg - The patient is being treated for diabetic foot infection. Treatment as per hospital medicine and infectious disease service. Currently receiving IV ampicillin and Vanco. Recommend close monitor of vanco levels. Vanco trough 19.9 on 06/04.
[2021-06-05 14:25] VITALS: BP 151/65; PULSE 68; RESP 16; TEMP 36.6; O2SAT 95
--- NOTE | 2021-06-05 16:04 | CHAPLAIN ---
Type of Pastoral Visit _x__ Initial Visit ___ Follow-up Visit ___ On-call Visit ___ General Patient Visit ___ Spiritual Assessment ___ Family Conference ___ Bereavement ___ Rapid Response ___ Code Blue ___ Other (describe below) Pastoral Care Referral From _x__ Patient ___ Family ___ Nurse ___ Physician ___ Quality Improvement Coordinator ___ Egg Buyer ___ Other (describe below) Sacrament/Intervention _x__ Active listening ___ Anointing ___ Adventist ___ Bereavement ___ Communion _x__ Bessy exploration ___ _x__ Life review _x__ Prayer ___ Reconciliation ___ Sacrament of Sick _x__ Supportive presence ___ Wedding ___ Other (describe below) Pastoral Comments patient disappointed in how his health has been and that some life goals are being frustrated because of it; pt had a fairly recent move to this area; pt is concerned about how long he might need to stay in TCU and about his foot healing; pt speaks at end of visit about his bessy in God and how he puts trust there
[2021-06-05 16:55] LABS: Bedside Glucose 303 mg/dL (70-110)
[2021-06-05] MEDS: Vancomycin IV 1,000 MG/200 ML BAG 200 MG IV (18:06)
[2021-06-05] MEDS: Insulin Lispro 100 UNIT/ML INSULN.PEN 10 UNIT SC ×2 (19:37→22:39)
[2021-06-05 21:40] LABS: Bedside Glucose 340 mg/dL (70-110)
--- NOTE | 2021-06-05 22:01 | NURSING ---
contacted via telephone regarding blood glucose level 340, received new order Humalog 10units scx1 and educate patient on diabetic diet.
--- NOTE | 2021-06-05 22:21 | NURSING ---
Patient's blood glucose was 340 mg/dL at HS. Patient was given an Education booklet on Diabetes, [place] high blood sugar and Healthy meals for diabetics print outs to educate patient on lowering his blood sugar. Patient very thankful for education information, however stated, the doctor told me to eat what doesn't taste good, however that will never work. I will always eat what I want.
[2021-06-05] MEDS: Atorvastatin Calcium 80 MG Tablet PO (22:32)
[2021-06-06] MEDS: oxyCODONE 5 MG Tablet 10 MG PO ×6 (02:01→23:04)
[2021-06-06] MEDS: Acetaminophen 500 MG Tablet 1000 MG PO ×4 (02:04→20:14)
--- NOTE | 2021-06-06 02:23 | NURSING ---
Patient requesting Pain medication to be routine. States his pain is worse in his foot than it ws when he came in. Patient also insisting on Dr. Peng to change his diet to Regular. Message left for Dr. Peng.
[2021-06-06] MEDS: 0.9% Saline Lock 10 ML Syringe IV ×4 (06:23→23:30)
--- NOTE | 2021-06-06 06:23 | NURSING ---
Attempted to wake patient for AM meds. Patient told this nurse he wasn't taking the meds this early and went back to sleep.
[2021-06-06 06:31] LABS: Bedside Glucose 144 mg/dL (70-110)
[2021-06-06] MEDS: Carvedilol 12.5 MG Tablet PO (06:47)
[2021-06-06] MEDS: Cholecalciferol (VIT D3) 25 MCG TABLET (1,000 UNITS) 125 MCG PO (06:47)
[2021-06-06] MEDS: Ascorbic Acid 500 MG Tablet 1000 MG PO ×3 (06:47→22:58)
[2021-06-06] MEDS: Gabapentin 800 MG Tablet PO ×3 (06:47→22:58)
[2021-06-06] MEDS: Enoxaparin 30 MG/0.3 ML Syringe SC (06:47)
[2021-06-06] MEDS: Aspirin 81 MG TAB.CHEW PO (07:35)
[2021-06-06] MEDS: Insulin Lispro 100 UNIT/ML INSULN.PEN 20 UNIT SC ×3 (07:37→18:02)
[2021-06-06] MEDS: Juven (unflavored) Packet 1 PACKET PO ×2 (07:38→18:09)
--- NOTE | 2021-06-06 09:11 | PHA.CONS1_ITS ---
Progress Note - Pharmacy Subjective: [] TCU Admission Objective: Allergies codeine Adverse Reaction (Verified 05/28/21 14:35) Nausea promethazine [From Phenergan] Adverse Reaction (Verified 05/28/21 14:35) Nausea Current Medications Generic Name Dose Route Start Last Admin Trade Name Freq PRN Reason Stop Dose Admin Acetaminophen 1,000 mg 06/01/21 22:28 06/06/21 07:43 Acetaminophen 500 Mg Tablet PO 1,000 mg Q6H PRN PRN Administration Pain Score 1-3 Albuterol Sulfate 2.5 mg 06/01/21 21:59 Albuterol 2.5 Mg/3 Ml Vial.Neb. INHALATION Q2H PRN PRN Dyspnea, wheezing Ascorbic Acid 1,000 mg 06/02/21 06:00 06/06/21 06:47 Ascorbic Acid 500 Mg Tablet PO 1,000 mg TID BRENDA Administration Aspirin 81 mg 06/02/21 08:00 06/06/21 07:35 Aspirin 81 Mg Tab.Chew PO 81 mg DAILY@0800 [facility] Administration Atorvastatin Calcium 80 mg 06/01/21 22:00 06/05/21 22:32 Atorvastatin Calcium 80 Mg Tablet PO 80 mg QHS BRENDA Administration Bisacodyl 10 mg 06/01/21 22:29 Bisacodyl 5 Mg Tablet PO DAILY PRN PRN Constipation Calamine/Phenol 1 applic 06/06/21 06:00 06/06/21 06:56 Menthol/Lanolin/Calamine/Znox 113 Gm Tube TOPICAL Not Given BID [facility] Protocol Carvedilol 12.5 mg 06/02/21 06:00 06/06/21 06:47 Carvedilol 12.5 Mg Tablet PO 12.5 mg DAILY BRENDA Administration Cholecalciferol 125 mcg 06/02/21 06:00 06/06/21 06:47 Cholecalciferol (Vit D3) 25 Mcg Tablet (1,000 Units) PO 125 mcg DAILY [facility] Administration Enoxaparin Sodium 30 mg 06/02/21 06:00 06/06/21 06:47 Enoxaparin 30 Mg/0.3 Ml Syringe SC 30 mg DAILY@0600 BRENDA Administration Gabapentin 800 mg 06/02/21 06:00 06/06/21 06:47 Gabapentin 800 Mg Tablet PO 800 mg TID [facility] Administration Heparin Sodium (Beef Lung) 50 units 06/06/21 07:39 Heparin Pf Lock 10 Units/Ml 50 Units/5 Ml Syringe IV UD PRN PICC Line Heparin Flush Vancomycin IV-PHARMACY TO DOSE 500 mls @ 250 mls/hr 06/01/21 23:46 1 each/ Sodium Chloride IV X1 PRN Rx to Dose Protocol Ampicillin Sodium/Sulbactam 112 mls @ 150 mls/hr 06/04/21 14:05 06/06/21 07:29 Sodium 3 gm/ Sodium Chloride IV 06/13/21 23:00 Infused Q8H BRENDA Infusion Vancomycin HCl 1,000 mg in 200 mls @ 200 mls/hr 06/05/21 17:00 06/05/21 19:06 Vancomycin IV 06/13/21 18:01 Infused Q24H BRENDA Infusion Sodium Chloride 250 mls @ 15 mls/hr 06/06/21 06:47 06/06/21 06:00 IV 0 mls/hr .[id number] PRN Infusion Saline Flush Insulin Glargine 40 units 06/05/21 06:00 06/06/21 06:53 Insulin Glargine 100 Units/Ml Pen SC 40 unit BID BRENDA Administration Insulin Human Lispro 20 unit 06/06/21 06:45 06/06/21 07:37 Insulin Lispro 100 Unit/Ml Insuln.Pen SC 20 unit TIDAC BRENDA Administration L-Arginine/L-Glutamine/Calcium HMB 1 packet 06/02/21 08:00 06/06/21 07:38 Corwin (Unflavored) Packet PO 1 packet BIDCM BRENDA Administration Melatonin 3 mg 06/01/21 21:59 Melatonin 3 Mg Tablet PO QHS PRN PRN Insomnia Oxycodone HCl 10 mg 06/06/21 10:00 Oxycodone 5 Mg Tablet PO Q4HWA BRENDA Polyethylene Glycol 17 gm 06/01/21 22:30 06/06/21 06:49 Polyethylene Glycol 3350 17 Gm Packet PO Not Given BID BRENDA Senna/Docusate Sodium 2 tablet 06/01/21 22:30 06/06/21 06:49 Senna/Docusate Sodium 1 Tablet PO Not Given BID BRENDA Sodium Chloride 250 ml 06/01/21 23:41 0.9% Normal Saline 250 Ml Iv.Soln. IV Q12H PRN PRN SALINE FLUSH Sodium Chloride 10 - 40 ml 06/01/21 23:46 06/06/21 06:23 0.9% Saline Lock 10 Ml Syringe IV 20 ml UD PRN Administration SALINE FLUSH Sodium Chloride 10 - 40 ml 06/06/21 06:47 0.9% Saline Lock 10 Ml Syringe IV UD PRN Midline Flush Sodium Chloride 10 - 40 ml 06/06/21 07:39 0.9% Saline Lock 10 Ml Syringe IV UD PRN Midline Flush Sodium Chloride 10 - 40 ml 06/06/21 07:39 0.9 % Nacl (Sterile) Posiflush 10 Ml IV UD PRN Port access or dressing change Sodium Chloride 10 - 40 ml 06/06/21 07:39 0.9% Saline Lock 10 Ml Syringe IV UD PRN Open End PICC Flush Sodium Chloride 10 - 40 ml 06/06/21 07:39 0.9 % Nacl (Sterile) Posiflush 10 Ml IV UD PRN Port access or dressing change Tuberculin PPD 0.1 ml 06/09/21 10:00 Tuberculin,Purif.Prot.Deriv. 50 Tu/Ml Vial ID 06/09/21 10:01 X1 ONE Problem List (Last Updated 06/01/21 @ 21:[address] Herminio Peng MD) Vitamin D deficiency (Acute) Hypomagnesemia (Acute) Hyperlipidemia (Acute) Diabetes mellitus (Acute) Acute kidney injury (Acute) Hyperkalemia (Acute) Hyponatremia (Acute) Diabetic infection of left foot (Acute) Sepsis (Acute) Debility (Acute) Chronic kidney disease, stage 4 (severe) (Chronic) HTN (hypertension) with goal to be determined (Acute) Cellulitis of left foot (Acute) Ulcer of left foot with necrosis of muscle (Acute) Abscess of left foot (Acute) Vital Signs Temp Pulse Resp BP Pulse Ox 97.9 F 68 16 151/65 H 95 06/05/21 14:25 06/05/21 14:25 06/05/21 14:25 06/05/21 14:25 06/05/21 14:25 Oxygen Delivery Method Room Air Weight: 127 kg Body Mass Index (BMI) 34.9 Sodium 138 mmol/L (136-145) 06/05/21 05:12 Potassium 4.6 mmol/L (3.5-5.1) 06/05/21 05:12 Chloride 104 mmol/L (98-107) 06/05/21 05:12 Carbon Dioxide 30.0 mmol/L (21.0-32.0) 06/05/21 05:12 Anion Gap 4 (5-15) L 06/05/21 05:12 BUN 47 mg/dL (7-18) H 06/05/21 05:12 Creatinine 2.15 mg/dL (0.70-1.30) H 06/05/21 05:12 Est GFR (MDRD) Af Amer 40 mL/min (>60) L 06/05/21 05:12 Est GFR (MDRD) Non-Af 33 mL/min (>60) L 06/05/21 05:12 BUN/Creatinine Ratio 21.9 RATIO (10-20) H 06/05/21 05:12 Glucose 159 mg/dL (74-106) H 06/05/21 05:12 Vancomycin Trough 19.9 ug/mL (5.0-15.0) H 06/04/21 16:30 Assessment/Plan: 1) Pain: Acetaminophen 1000mg po q6h prn for pain 1-3, Oxycodone 10mg po q4h while awake. Pt currently does not have a prn pain scale for anything greater than 3. Pharmacy will adjust pain scale for acetaminophen. *2) Hyperlipidemia: Atorvastatin 80mg po qhs. Pts lipid panel is within normal limits. I could not find a recent cholesterol panel in the pts chart. Please consider a yearly cholesterol panel while the pt is on a statin. Thanks 3) Hypertension: Carvedilol 12.5mg po daily. Pts pulse is within normal limits. Pts average bp is 143/64.8. Please continue to monitor pts bp. Thanks 4) Diabetic Neuropathy: Gabapentin 800mg po tid. Please monitor pt for somnolence, confusion, and increased risk of falls. 5) Diabetes: Lantus 40 units subq bid, Humalog 20 units subq tid before meals. Pts average glucose readings for the last 10 readings is 242.8. Please continue to monitor pts blood glucose. 6) DVT Prophylaxis: Enoxaparin 30mg subq once daily. Pts plts are 264, and H+H are 13.4 and 42.9. Please continue to monitor labs, and for signs of bruising/bleeding. Thanks 7) Shortness of Breath: Albuterol nebules q2h prn for dyspnea/wheezing. PRN Note: Pt has yet to receive a dose of Albuterol. Please continue to monitor for signs/symptoms of shortness of breath. 8) Diabetic left foot ulcer: Vancomycin (pharmacy dosing), Unasyn 3gm IV q8h. Dr. Raphael (infections disease) is following pt. Pharmacy is following Vancomycin trough. Stop date for both antibiotics are 06/13/21. 9) Insomnia: Melatonin 3mg po qhs prn for insomnia. PRN Note: pt has yet to receive a dose. Please continue to monitor for signs/symptoms of insomnia. Psychotropic Medications: Unnecessary Medications: *Bowel Regimen: Bisacodyl 10mg po daily prn for constipation, Miralax 17gm po bid, Senna/Docusate 2 tablets po bid. Pt has been refusing Miralax and Senna/Docusate. Please consider changing to prn if pt continues to refuse. Thanks Date of Note:: 06/06/21
--- NOTE | 2021-06-06 09:52 | NURSING ---
Patient received Calmoseptine cream this AM to help with the discomfort around tailbone area from being on bottom for so long. Patient overall cooperative; inappropriate at times. Meal upgraded to a regular diet per request. Educated regarding the importance of Carbohydrate controlled diet. Patient now has scheduled oxycodone Q4H, instead of PRN. Patient also still utilizing PRN acetaminophen. Wound vac changed this AM by wound Nurse; Nicole.
--- NOTE | 2021-06-06 10:18 | CASEMGMT ---
Social Work IDT met with patient for care plan meeting. Discussed patient's progress in PT/OT and nursing. Explained Medicare benefit. Encouraged to contact secondary insurance to ensure copay coverage. Pt is in room isolation for the duration of outbreak status on unit d/t COVID. The goal is for pt to return home alone with 2 steps to enter and used a walker prior. Pt is on IV ATB until 06/13, has wounds and wound vac. SW to continue to follow for DC planning. Corrine Palafox, PROCTOLOGIST DIRECTOR TALENT
[2021-06-06 11:01] LABS: Bedside Glucose 241 mg/dL (70-110)
[2021-06-06 13:26] VITALS: BP 138/69; PULSE 65; RESP 20; TEMP 36.2; O2SAT 95
[2021-06-06 16:56] LABS: Bedside Glucose 291 mg/dL (70-110)
[2021-06-06] MEDS: Menthol/Lanolin/Calamine/Znox 113 GM Tube 1 APPLIC TOPICAL (18:03)
[2021-06-06] MEDS: Vancomycin IV 1,000 MG/200 ML BAG 200 MG IV (18:04)
[2021-06-06 19:45] VITALS: RESP 18
[2021-06-06 21:16] LABS: Bedside Glucose 339 mg/dL (70-110)
--- NOTE | 2021-06-06 21:40 | NURSING ---
2110 - blood sugar 339 post snack of lionel crackers, peanut butter and a carton of milk.
[2021-06-06] MEDS: Atorvastatin Calcium 80 MG Tablet PO (22:58)
--- NOTE | 2021-06-06 23:25 | NURSING ---
Midline has been leaking today, dressing changed earlier and flushed with 10ml NS, flushed well. Per MOTION PICTURE SET WORKER, pt stated now that site is tender, small amount of blood noted around site. Went in to put in saline lock to infuse Unasyn, pt adamantly refused to have put in, state that you are not sticking me again, you have to use my midline, that's what it's for. Explained to pt that since the site is leaking and he c/o it being tender we need to have an alternate iv. Pt still refused, states that it doesn't hurt and it's not swelling and demanded that we use midline. Flushed at this time, flushes well, pt denies pain, no leaking with flush noted. Vianney hung and MOTION PICTURE SET WORKER and warehouse freight handler notified, will continue to monitor.
[2021-06-07 05:10] VITALS: BP 115/53; PULSE 57; RESP 18; TEMP 36.4; O2SAT 94
[2021-06-07] MEDS: Acetaminophen 500 MG Tablet 1000 MG PO ×3 (05:14→22:04)
[2021-06-07] MEDS: oxyCODONE 5 MG Tablet 10 MG PO ×5 (05:14→22:04)
[2021-06-07] MEDS: Cholecalciferol (VIT D3) 25 MCG TABLET (1,000 UNITS) 125 MCG PO (05:16)
[2021-06-07] MEDS: Ascorbic Acid 500 MG Tablet 1000 MG PO ×3 (05:17→22:42)
[2021-06-07] MEDS: Carvedilol 12.5 MG Tablet PO (05:17)
[2021-06-07] MEDS: Gabapentin 800 MG Tablet PO ×3 (05:17→22:03)
[2021-06-07] MEDS: Enoxaparin 30 MG/0.3 ML Syringe SC (05:18)
[2021-06-07] MEDS: Menthol/Lanolin/Calamine/Znox 113 GM Tube 1 APPLIC TOPICAL ×2 (05:19→18:11)
[2021-06-07] MEDS: 0.9% Saline Lock 10 ML Syringe IV ×6 (05:22→23:38)
[2021-06-07 06:51] LABS: Bedside Glucose 244 mg/dL (70-110)
[2021-06-07] MEDS: Insulin Lispro 100 UNIT/ML INSULN.PEN 30 UNIT SC ×3 (09:21→18:04)
[2021-06-07] MEDS: Aspirin 81 MG TAB.CHEW PO (09:21)
[2021-06-07] MEDS: Juven (unflavored) Packet 1 PACKET PO ×2 (09:21→18:16)
--- NOTE | 2021-06-07 10:13 | NURSING ---
Addendum entered by Jovita Lynn 06/07/21 15:59: crotch breaker in and accessed patient's midline. crotch breaker changed tegaderm CHG dressing, they reported no leaking to midline and good blood return. crotch breaker offered to place PICC into right arm d/t vanc therapy and nephrology clearance pt refused. Per their assessment ok to run ATB through midline no concerns noted at this time. Addendum entered by Jovita Lynn 06/07/21 14:38: Pt ATB due at this time, pt refusing to let staff attempt saline lock and is insisting that ATB be ran through midline. This nurse flushed midline to assess for leaking and patency. Good blood return noted, midline flushed easily and no s/s leaking or infiltration noted. Pt denies pain/discomfort. ATB ran through midline per order, and checked at 5, 10, and 15 minute interval and no s/s leaking, infiltration, pain, or discomfort. Pt educated on importance of letting staff know if he observes any leaking, swelling, or discomfort during administration or after. Pt verbalized understanding Original Note: Midline leaking per cage shift manager report. crotch breaker called this morning and they stated they would be in today to assess pt. Stated they would call later and give ETA.
[2021-06-07 10:51] LABS: Bedside Glucose 357 mg/dL (70-110)
--- NOTE | 2021-06-07 13:00 | NURSING ---
Resident refused to be tested for COVID.
[2021-06-07 13:53] VITALS: BP 128/64; PULSE 62; RESP 24; TEMP 36.4; O2SAT 93
[2021-06-07 16:21] LABS: Bedside Glucose 169 mg/dL (70-110)
[2021-06-07 17:46] LABS: Vancomycin, Trough Level 18.1 ug/mL (5.0-15.0)
[2021-06-07] MEDS: Vancomycin IV 1,000 MG/200 ML BAG 200 MG IV (17:59)
[2021-06-07] MEDS: 0.9% Normal Saline 250 ML IV.SOLN. IV (17:59)
[2021-06-07] MEDS: Polyethylene Glycol 3350 17 GM PACKET PO (18:06)
[2021-06-07] MEDS: Senna/Docusate Sodium 1 Tablet 2 TABLET PO (18:06)
--- NOTE | 2021-06-07 19:14 | PHA.PHARE_ITS ---
Consult Pharmacy has been consulted to manage selected antiobiotic: Vancomycin Type of Consult: Follow-up Prior Doses of Antibiotics Received/Current Regimen: Currently on 1gm iv q24h. Labs: Sodium 138 mmol/L (136-145) 06/05/21 05:12 Potassium 4.6 mmol/L (3.5-5.1) 06/05/21 05:12 Chloride 104 mmol/L (98-107) 06/05/21 05:12 Carbon Dioxide 30.0 mmol/L (21.0-32.0) 06/05/21 05:12 Anion Gap 4 (5-15) L 06/05/21 05:12 BUN 47 mg/dL (7-18) H 06/05/21 05:12 Creatinine 2.15 mg/dL (0.70-1.30) H 06/05/21 05:12 Est GFR (MDRD) Af Amer 40 mL/min (>60) L 06/05/21 05:12 Est GFR (MDRD) Non-Af 33 mL/min (>60) L 06/05/21 05:12 BUN/Creatinine Ratio 21.9 RATIO (10-20) H 06/05/21 05:12 Glucose 159 mg/dL (74-106) H 06/05/21 05:12 Vancomycin Trough 18.1 ug/mL (5.0-15.0) H 06/07/21 16:29 Weight used for dosin kg Estimated Creatinine Clearance: 48ml/min Goal Trough: 15-20 mcg/mL Pharmacy Plan for Drug Dosing: Trough today ~22.5hrs post dose was 18.1 and in therapeutic range of 15- 20mcg/ml. Will continue same dose. New trough ordered for 06.09.21 per protocol. Pharmacy Service will continue to monitor and adjust dosing as required. Follow-Up Labs: Trough Vancomycin - 06.09.21@1630 before 1700 dose
[2021-06-07 21:26] LABS: Bedside Glucose 383 mg/dL (70-110)
[2021-06-07] MEDS: Atorvastatin Calcium 80 MG Tablet PO (22:13)
[2021-06-08] MEDS: oxyCODONE 5 MG Tablet 10 MG PO ×6 (02:13→21:40)
[2021-06-08 06:20] LABS: Anion Gap 6 (5-15); BUN 55 mg/dL (7-18); BUN/Creat Ratio 24.9 RATIO (10-20); Calcium,Total 8.6 mg/dL (8.5-10.1); Chloride 104 mmol/L (98-107); Creatinine, Serum 2.21 mg/dL (0.70-1.30); EST Glomerular Filtration Rate 32 mL/min (>60); Est Glom Filt Rate - Afr Amer 38 mL/min (>60); Estimated Creatinine Clearance 38.77 ml/min; Glucose 300 mg/dL (74-106); Potassium 4.7 mmol/L (3.5-5.1); Sodium Level 135 mmol/L (136-145)
[2021-06-08] MEDS: 0.9% Saline Lock 10 ML Syringe IV ×2 (06:25→08:01)
[2021-06-08] MEDS: Carvedilol 12.5 MG Tablet PO (06:29)
[2021-06-08] MEDS: Menthol/Lanolin/Calamine/Znox 113 GM Tube 1 APPLIC TOPICAL ×2 (06:29→17:52)
[2021-06-08] MEDS: Ascorbic Acid 500 MG Tablet 1000 MG PO ×3 (06:29→21:40)
[2021-06-08] MEDS: Gabapentin 800 MG Tablet PO ×3 (06:30→21:40)
[2021-06-08] MEDS: Acetaminophen 500 MG Tablet 1000 MG PO ×2 (06:31→21:38)
[2021-06-08] MEDS: Cholecalciferol (VIT D3) 25 MCG TABLET (1,000 UNITS) 125 MCG PO (06:34)
[2021-06-08] MEDS: Enoxaparin 30 MG/0.3 ML Syringe SC (06:40)
[2021-06-08 06:46] LABS: Bedside Glucose 278 mg/dL (70-110)
[2021-06-08] MEDS: Juven (unflavored) Packet 1 PACKET PO ×2 (07:59→17:57)
[2021-06-08] MEDS: Aspirin 81 MG TAB.CHEW PO (07:59)
[2021-06-08] MEDS: Insulin Lispro 100 UNIT/ML INSULN.PEN 33 UNIT SC ×2 (08:51→11:57)
--- NOTE | 2021-06-08 09:49 | NURSING ---
Dr martinez in w/wound nurse to assess LT foot ulcer.
--- NOTE | 2021-06-08 09:50 | PCM.PROGNOTE ---
Subjective Subjective Patient was seen this morning for follow up on left foot debridement. He relates there is pain to the foot - he points to the arch as the site of the pain and relates pain goes to ankle and some in the leg. He has no complaints of fever, chills, nausea, or vomiting. Objective Data Objective Data Vital Signs: Vital Signs Temp Pulse Resp BP Pulse Ox 97.5 F L 62 24 H 128/64 H 93 06/07/21 13:53 06/07/21 13:53 06/07/21 13:53 06/07/21 13:53 06/07/21 13:53 Oxygen Delivery Method Room Air Weight: 127 kg Body Mass Index (BMI) 34.9 Intake & Output: Intake and Output for Last 24 Hours 06/06/21 06/07/21 06/08/21 23:59 23:59 23:59 Intake Total 1084 / 1084 2208 / 2208 112 / 112 Output Total 650 / 650 800 / 800 625 / 625 Balance 434 / 434 1408 / 1408 -513 / -513 Lab / Micro Data Result Diagrams: 06/02/21 05:27 06/08/21 05:15 Labs: Laboratory Results - last 24 hr 06/07/21 10:41: POC Glucose 357 H 06/07/21 16:12: POC Glucose 169 H 06/07/21 16:29: Vancomycin Trough 18.1 H 06/07/21 21:21: POC Glucose 383 H 06/08/21 05:15: Sodium 135 L, Potassium 4.7, Chloride 104, Carbon Dioxide 25.0, Anion Gap 6, BUN 55 H, Creatinine 2.21 H, Estim Creat Clear Calc 38.77, Est GFR (MDRD) Af Amer 38 L, Est GFR (MDRD) Non-Af 32 L, BUN/Creatinine Ratio 24.9 H, Glucose 300 H, Calcium 8.6 06/08/21 06:25: POC Glucose 278 H Physical Exam Narrative Const alert and no apparent distress General Appearance: cooperative and comfortable Extremity Ther is diffuse left foot/ankle and leg swelling. Left foot s/p debridement to arch and heel, tissues are healthy and viable, granular, down to fascia layer, there is no streaking or odor, compartments remain soft to palpate, there is no fluctuance or bogginess on palpation, no drainage, no visible abscess, no cellulitis, no blistering present. No new open lesions left foot/ankle or leg, no open lesions or evidence of infection right foot, ankle or leg. General Extremity: Negative for clubbing or cyanosis to digits. Vasc normal capillary refill, no acute ischemic skin changes noted, normal temperature bilateral. Const alert, oriented x3 and no apparent distress Skin Skin Narrative: Wound Narrative: Neuro Neuro Narrative: Assessment & Plan Assessment/Plan (1) Abscess of left foot: (2) Ulcer of left foot with necrosis of muscle: (3) Cellulitis of left foot: PLAN: I reviewed and discussed his case. Infection: Clinically doing well. He is afebrile and his vital signs are stable. Cont on vanc/Unasyn. Infectious disease on consult and appreciated. Dressing: Continue wound vac - will go down to 125mmHg continuous to see if this help with pain - change q 48-72 hours. Offloading: To maintain a strict nonweightbearing status to left lower extremity and use assistive device. To work with PT and OT. Vascular: Arterial studies were reviewed. Showing likely adequate perfusion for healing. Referral to Dr. Campos for potential venous and arterial intervention was provided. Edema: Kevin wrap, elevation, and dietary salt restrictions are recommended. Venous doppler ordered to rule out DVT. Pain: controlled with pain medication prn morphine and oxycodone. Host factors: His comorbidities are noted and he is at risk for continued delayed or nonhealing. Medical management is appreciated. Smoking and tobacco cessation is recommended. To continue nutritional supplementation to optimize the healing process. Discharge planning: in Transitional care unit at this time. He may benefit from extended skilled facility care during his entire wound healing process. I answered all of his questions. The podiatry team will continue to follow him closely while in house 1 to 2 times weekly.
--- NOTE | 2021-06-08 10:18 | WOUNDNOTE ---
wound photo: left plantar foot
--- NOTE | 2021-06-08 10:18 | WOUNDNOTE ---
wound photo: left heel
[2021-06-08 11:25] LABS: Bedside Glucose 312 mg/dL (70-110)
--- NOTE | 2021-06-08 12:04 | NURSING ---
Dr. Azar in earlier this shift. New orders received: Xray of ankle and foot and Doppler . Patient updated
--- NOTE | 2021-06-08 12:43 | NURSING ---
Patient refusing to wash up unless someone does it for him. This Nurse and REMOTE SENSING TECHNICIAN encouraged patient he needed to do as much as he could for himself. Patient continues to refuse.
--- NOTE | 2021-06-08 13:31 | RAD_ITS ---
EXAM: XR LEFT FOOT COMPLETE, 3 OR MORE VIEWS CLINICAL INDICATION: foot pain Technologist Notes ANKLE AND FOOT PAIN AFTER RECENT SURGERY TECHNIQUE: Frontal, lateral and oblique views of the left foot. This report was created using [employer] report generation technology. COMPARISON: May 29 2021 3:10pmCR Foot Left FINDINGS: BONES/JOINTS: Superficial soft tissue ulceration adjacent to the plantar aspect of the calcaneus. No acute fracture. No subluxation. Normal alignment. Preservation of the joint space. No sclerotic or destructive changes observed. SOFT TISSUES: There is soft tissue swelling around the dorsum and plantar aspect of the foot. There is irregularity in the plantar aspect of the midfoot within the soft tissue. This may relate to the recent surgery. There is soft tissue swelling around the ankle. No radiopaque foreign body. RAD/Foot min 3 Views IMPRESSION: 1. Superficial soft tissue ulceration adjacent to the plantar aspect of the calcaneus. 2. There is soft tissue swelling around the dorsum and plantar aspect of the foot. There is irregularity in the plantar aspect of the midfoot within the soft tissue. This may relate to the recent surgery. Electronically Signed: Wale Schneider MD at 15:21 EST , Service support ,
--- NOTE | 2021-06-08 13:31 | RAD_ITS ---
EXAM: XR LEFT ANKLE COMPLETE, 3 OR MORE VIEWS CLINICAL INDICATION: ankle pain Technologist Notes ANKLE AND FOOT PAIN AFTER RECENT SURGERY TECHNIQUE: Frontal, lateral and oblique views of the left ankle. This report was created using [employer] report generation technology. COMPARISON: May 29 2021 3:10pmCR Foot Left FINDINGS: BONES/JOINTS: Unremarkable. No acute fracture. No subluxation. Normal alignment. Preservation of the joint space. No sclerotic or destructive changes observed. SOFT TISSUES: The visualized subtalar, talonavicular, calcaneocuboid and tarsal articulations are normal. Normal talus, calcaneus, and tarsal bones. There is soft tissue swelling around the foot and ankle. There is a vacuum drain along the dorsum of the foot. Superficial soft tissue ulceration adjacent to the plantar aspect of the calcaneus. No radiopaque foreign body. RAD/Ankle min 3 Views IMPRESSION: 1. There is soft tissue swelling. 2. Superficial soft tissue ulceration adjacent to the plantar aspect of the calcaneus. Electronically Signed: Wale Schneider MD at 15:19 EST , Service support ,
--- NOTE | 2021-06-08 15:29 | PN.RENAL_ITS ---
Subjective Subjective sitting up in bed, no complaints. Objective Data Objective Data Vital Signs: Vital Signs Temp Pulse Resp BP Pulse Ox 97.5 F L 62 24 H 128/64 H 93 06/07/21 13:53 06/07/21 13:53 06/07/21 13:53 06/07/21 13:53 06/07/21 13:53 Oxygen Delivery Method Room Air Weight: 127 kg Body Mass Index (BMI) 34.9 Intake & Output: Intake and Output for Last 24 Hours 06/06/21 06/07/21 06/08/21 23:59 23:59 23:59 Intake Total 1084 / 1084 2208 / 2208 712 / 712 Output Total 650 / 650 800 / 800 625 / 625 Balance 434 / 434 1408 / 1408 87 / 87 Lab / Micro Data Result Diagrams: 06/02/21 05:27 06/08/21 05:15 Labs: Laboratory Results - last 24 hr 06/07/21 16:12: POC Glucose 169 H 06/07/21 16:29: Vancomycin Trough 18.1 H 06/07/21 21:21: POC Glucose 383 H 06/08/21 05:15: Sodium 135 L, Potassium 4.7, Chloride 104, Carbon Dioxide 25.0, Anion Gap 6, BUN 55 H, Creatinine 2.21 H, Estim Creat Clear Calc 38.77, Est GFR (MDRD) Af Amer 38 L, Est GFR (MDRD) Non-Af 32 L, BUN/Creatinine Ratio 24.9 H, Glucose 300 H, Calcium 8.6 06/08/21 06:25: POC Glucose 278 H 06/08/21 11:20: POC Glucose 312 H Radiography Diagnostic Testing: Radiology Impression Ankle X-Ray 06/08/21 13:31 IMPRESSION: 1. There is soft tissue swelling. 2. Superficial soft tissue ulceration adjacent to the plantar aspect of the calcaneus. Electronically Signed: Wael Schneider MD at 15:19 EST , Service support , Foot X-Ray 06/08/21 13:31 IMPRESSION: 1. Superficial soft tissue ulceration adjacent to the plantar aspect of the calcaneus. 2. There is soft tissue swelling around the dorsum and plantar aspect of the foot. There is irregularity in the plantar aspect of the midfoot within the soft tissue. This may relate to the recent surgery. Electronically Signed: Wale Schneider MD at 15:21 EST , Service support , Physical Exam Narrative Const: NAD. A&Ox3 Cardio: S1S2, RRR Resp: CTAB GI: Abdomen soft, rounded Extremity: no pitting edema. left foot/leg with KASI wrap in place Assessment & Plan Assessment/Plan (1) Chronic kidney disease, stage 4 (severe): (2) Acute kidney injury: (3) Diabetic infection of left foot: (4) HTN (hypertension) with goal to be determined: PLAN: - Patient developed nonoliguric hypovolemic PATIRCK superimposed on CKD; PATRICK likely prerenal. SCr peaked at 3.68 mg/dL on 05/30/2021, today SCr 2.2mg/dL. Patient did require IVF for a few days as he had poor appetite. Does not need any further IVF at this time. Currently renal function stable, at baseline. Patient did not require CLIENT SUPPORT PROFESSIONAL. - History of Chronic kidney disease, stage 4; The patient has underlying stage IV CKD. Serum creatinine is around 2.7-2.9 at baseline. The patient likely has diabetic kidney disease. He follows with wet room worker in [place] every 3 months. - Bps acceptable on Coreg - The patient is being treated for diabetic foot infection. Treatment as per hospital medicine and infectious disease service. Currently receiving IV ampicillin and Vanco. Recommend close monitor of vanco levels. Vanco trough 19.9 on 06/04, last vanco level 18 06/07.
[2021-06-08 16:00] VITALS: BP 156/66; PULSE 60; RESP 17; TEMP 36.4; O2SAT 91
[2021-06-08 16:01] LABS: Bedside Glucose 295 mg/dL (70-110)
[2021-06-08] MEDS: Vancomycin IV 1,000 MG/200 ML BAG 200 MG IV (17:46)
[2021-06-08] MEDS: Insulin Lispro 100 UNIT/ML INSULN.PEN 40 UNIT SC (17:59)
[2021-06-08 21:26] LABS: Bedside Glucose 412 mg/dL (70-110)
[2021-06-08] MEDS: Atorvastatin Calcium 80 MG Tablet PO (21:40)
--- NOTE | 2021-06-08 21:56 | NURSING ---
Updated Dr. Peng of elevated blood sugar, order to give one time dose 20 units humalog.
[2021-06-08] MEDS: Insulin Lispro 100 UNIT/ML INSULN.PEN 20 UNIT SC (22:06)
[2021-06-09] MEDS: Acetaminophen 500 MG Tablet 1000 MG PO ×2 (05:31→11:38)
[2021-06-09] MEDS: oxyCODONE 5 MG Tablet 10 MG PO ×5 (05:31→22:47)
[2021-06-09] MEDS: Cholecalciferol (VIT D3) 25 MCG TABLET (1,000 UNITS) 125 MCG PO (05:32)
[2021-06-09] MEDS: Enoxaparin 30 MG/0.3 ML Syringe SC (05:32)
[2021-06-09] MEDS: Carvedilol 12.5 MG Tablet PO (05:32)
[2021-06-09] MEDS: Gabapentin 800 MG Tablet PO ×3 (05:32→22:47)
[2021-06-09] MEDS: Ascorbic Acid 500 MG Tablet 1000 MG PO ×3 (05:32→22:47)
[2021-06-09] MEDS: Menthol/Lanolin/Calamine/Znox 113 GM Tube 1 APPLIC TOPICAL ×2 (05:35→17:48)
[2021-06-09 05:42] LABS: Absolute Lymphocyte Count 2.25 X10^3/uL (0.83-4.51); Absolute Neutrophil Count 5.2 X10^3/uL (2.0-7.7); Basophil% 1.1 % (0-1); Eosinophil# 0.44 X10^3/uL; Hematocrit 42.1 % (40-54); Hemoglobin 13.3 g/dL (13.0-16.5); Lymphocyte # 2.25 X10^3/ul (0.83-4.51); Lymphocyte % 25.5 % (19-41); Mean Corp Hgb Conc 31.6 g/dL (32-36); Mean Corpuscular Hgb 28.1 pg (27.0-32.0); Mean Corpuscular Volume 88.8 fL (80-94); Mean Platelet Vol. 10.1 fl (6.2-12.0); Monocyte# 0.75 X10^3/uL; Monocyte% 8.5 % (0-10); NRBC Flagged by Analyzer 0 % (0-5); Neutrophil # 5.23 X10^3/uL (2.7-7.7); Neutrophil % 59.1 % (47-70); Platelet Count 280 K/mm3 (150-450); RBC Distribution Width CV 14.6 % (11.6-14.6); RBC Distribution Width SD 47.4 fl (35.1-43.9); Red Blood Count 4.74 M/mm3 (4.6-6.2); White Blood Count 8.8 K/mm3 (4.4-11.0)
[2021-06-09 06:04] LABS: Anion Gap 4 (5-15); BUN 57 mg/dL (7-18); Calcium,Total 8.8 mg/dL (8.5-10.1); Chloride 105 mmol/L (98-107); Creatinine, Serum 2.19 mg/dL (0.70-1.30); EST Glomerular Filtration Rate 32 mL/min (>60); Est Glom Filt Rate - Afr Amer 39 mL/min (>60); Estimated Creatinine Clearance 39.12 ml/min; Glucose 261 mg/dL (74-106); Potassium 4.5 mmol/L (3.5-5.1); Sodium Level 135 mmol/L (136-145)
[2021-06-09 06:21] LABS: Bedside Glucose 258 mg/dL (70-110)
[2021-06-09] MEDS: Insulin Lispro 100 UNIT/ML INSULN.PEN 40 UNIT SC ×2 (08:07→11:35)
[2021-06-09] MEDS: Juven (unflavored) Packet 1 PACKET PO ×2 (08:10→17:35)
[2021-06-09] MEDS: Aspirin 81 MG TAB.CHEW PO (08:10)
[2021-06-09] MEDS: Tuberculin,Purif.prot.deriv. 50 TU/ML Vial 0.1 ML ID (09:29)
[2021-06-09 11:11] LABS: Bedside Glucose 293 mg/dL (70-110)
[2021-06-09] MEDS: Insulin Lispro 100 UNIT/ML INSULN.PEN 50 UNIT SC ×2 (13:09→17:30)
[2021-06-09] MEDS: 0.9% Saline Lock 10 ML Syringe IV (13:15)
[2021-06-09 13:48] VITALS: BP 126/95; PULSE 70; RESP 16; TEMP 36.1; O2SAT 94
[2021-06-09 16:15] LABS: Bedside Glucose 272 mg/dL (70-110)
[2021-06-09 17:05] LABS: Vancomycin, Trough Level 17.6 ug/mL (5.0-15.0)
[2021-06-09] MEDS: Vancomycin IV 1,000 MG/200 ML BAG 200 MG IV (17:44)
--- NOTE | 2021-06-09 18:43 | PCM.RX.CS ---
Consult Pharmacy has been consulted to manage selected antiobiotic: Vancomycin Type of Consult: Follow-up Labs: Sodium 135 mmol/L (136-145) L 06/09/21 05:33 Potassium 4.5 mmol/L (3.5-5.1) 06/09/21 05:33 Chloride 105 mmol/L (98-107) 06/09/21 05:33 Carbon Dioxide 26.0 mmol/L (21.0-32.0) 06/09/21 05:33 Anion Gap 4 (5-15) L 06/09/21 05:33 BUN 57 mg/dL (7-18) H 06/09/21 05:33 Creatinine 2.19 mg/dL (0.70-1.30) H 06/09/21 05:33 Est GFR (MDRD) Af Amer 39 mL/min (>60) L 06/09/21 05:33 Est GFR (MDRD) Non-Af 32 mL/min (>60) L 06/09/21 05:33 BUN/Creatinine Ratio 26.0 RATIO (10-20) H 06/09/21 05:33 Glucose 261 mg/dL (74-106) H 06/09/21 05:33 Vancomycin Trough 17.6 ug/mL (5.0-15.0) H 06/09/21 16:29 Goal Trough: 15-20 mcg/mL Pharmacy Plan for Drug Dosing: VANCOMYCIN LEVEL RECEIVED Current Vancomycin Dose: 1G IV Q24H Number of Doses Received: several (NOTE: STOPDATE 06/13/21) Vancomycin Level: 17.6 Hours Since Last Dose: 23hr Renal Function: 2.19 Renal Function Trend: stable Lab/Micro: nnl Vancomycin Plan/Comments: Patient had a trough drawn which resulted in a value of 17.6 (Goal 15-20). The patient has remained therapeutic for the past 4 troughs with stable renal function. In light of this, will continue current dose and check a trough in 1 week to assess dosing at that time. Should renal function/ clinical status change, will draw a trough earlier. Pending Level: 06/16/21 @1630 Pharmacy Service will continue to monitor and adjust dosing as required.
[2021-06-09 21:35] LABS: Bedside Glucose 358 mg/dL (70-110)
[2021-06-09] MEDS: Atorvastatin Calcium 80 MG Tablet PO (22:46)
[2021-06-10 06:35] LABS: Bedside Glucose 265 mg/dL (70-110)
[2021-06-10 06:50] VITALS: BP 130/67; PULSE 72
[2021-06-10] MEDS: Enoxaparin 30 MG/0.3 ML Syringe SC (06:51)
[2021-06-10] MEDS: Cholecalciferol (VIT D3) 25 MCG TABLET (1,000 UNITS) 125 MCG PO (06:52)
[2021-06-10] MEDS: Gabapentin 800 MG Tablet PO ×3 (06:53→22:24)
[2021-06-10] MEDS: Carvedilol 12.5 MG Tablet PO (06:53)
[2021-06-10] MEDS: Ascorbic Acid 500 MG Tablet 1000 MG PO ×3 (06:53→22:24)
[2021-06-10] MEDS: oxyCODONE 5 MG Tablet 10 MG PO ×5 (06:54→22:23)
[2021-06-10] MEDS: Menthol/Lanolin/Calamine/Znox 113 GM Tube 1 APPLIC TOPICAL (06:54)
[2021-06-10] MEDS: 0.9% Saline Lock 10 ML Syringe IV ×3 (07:01→22:28)
[2021-06-10] MEDS: Insulin Lispro 100 UNIT/ML INSULN.PEN 50 UNIT SC (08:00)
[2021-06-10] MEDS: Aspirin 81 MG TAB.CHEW PO (08:04)
[2021-06-10] MEDS: Juven (unflavored) Packet 1 PACKET PO ×2 (08:04→17:32)
[2021-06-10] MEDS: Acetaminophen 500 MG Tablet 1000 MG PO ×2 (09:18→22:37)
[2021-06-10] MEDS: Insulin Lispro 100 UNIT/ML INSULN.PEN 56 UNIT SC ×2 (11:33→17:28)
--- NOTE | 2021-06-10 13:19 | NURSING ---
Lunch time blood sugar taken but is not transferring from glucometer to meditech. Lunch blood was 336.
[2021-06-10 15:56] LABS: Bedside Glucose 318 mg/dL (70-110)
[2021-06-10 16:00] VITALS: BP 150/65; PULSE 68; RESP 16; TEMP 36; O2SAT 94
[2021-06-10] MEDS: Vancomycin IV 1,000 MG/200 ML BAG 200 MG IV (17:35)
[2021-06-10] MEDS: Atorvastatin Calcium 80 MG Tablet PO (22:25)
[2021-06-10 22:40] LABS: Bedside Glucose 331 mg/dL (70-110)
[2021-06-10 22:46] VITALS: PULSE 73; RESP 16; O2SAT 93
[2021-06-11 06:30] LABS: Bedside Glucose 192 mg/dL (70-110)
[2021-06-11] MEDS: Carvedilol 12.5 MG Tablet PO (06:38)
[2021-06-11] MEDS: Cholecalciferol (VIT D3) 25 MCG TABLET (1,000 UNITS) 125 MCG PO (06:38)
[2021-06-11] MEDS: Ascorbic Acid 500 MG Tablet 1000 MG PO ×3 (06:38→21:25)
[2021-06-11] MEDS: Gabapentin 800 MG Tablet PO ×3 (06:38→21:25)
[2021-06-11] MEDS: Acetaminophen 500 MG Tablet 1000 MG PO ×2 (06:38→14:10)
[2021-06-11] MEDS: 0.9% Saline Lock 10 ML Syringe IV (06:39)
[2021-06-11] MEDS: oxyCODONE 5 MG Tablet 10 MG PO ×5 (06:39→21:25)
[2021-06-11] MEDS: Enoxaparin 30 MG/0.3 ML Syringe SC (06:42)
[2021-06-11] MEDS: Menthol/Lanolin/Calamine/Znox 113 GM Tube 1 APPLIC TOPICAL ×2 (06:50→19:12)
[2021-06-11] MEDS: Insulin Lispro 100 UNIT/ML INSULN.PEN 56 UNIT SC ×3 (09:01→18:33)
[2021-06-11] MEDS: Aspirin 81 MG TAB.CHEW PO (09:01)
[2021-06-11] MEDS: Juven (unflavored) Packet 1 PACKET PO ×2 (09:02→18:14)
[2021-06-11 11:05] LABS: Bedside Glucose 336 mg/dL (70-110)
--- NOTE | 2021-06-11 14:11 | WOUNDNOTE ---
wound photo: left foot
--- NOTE | 2021-06-11 14:13 | WOUNDNOTE ---
wound photo: left heel
[2021-06-11 14:59] VITALS: BP 158/59; PULSE 65; RESP 18; TEMP 36.3; O2SAT 96
--- NOTE | 2021-06-11 15:49 | NURSING ---
Addendum entered by Otilia Barrera 06/11/21 17:14: correction, stopped unasyn infusion, not vanc Original Note: pt midline leaking, stopped vanc infusion, edema noted to posterior upper arm, some redness at insertion site. toll service observer notified. pt agreeable for a new one. pt has 2 more days of IV ATBs yet. Dr Peng updated. awaiting on return call from PROPELLANT CHARGE LOADER.
[2021-06-11 15:51] LABS: Bedside Glucose 279 mg/dL (70-110)
[2021-06-11] MEDS: Senna/Docusate Sodium 1 Tablet 2 TABLET PO (18:11)
[2021-06-11] MEDS: Polyethylene Glycol 3350 17 GM PACKET PO (18:14)
[2021-06-11 21:25] LABS: Bedside Glucose 411 mg/dL (70-110)
[2021-06-11] MEDS: Atorvastatin Calcium 80 MG Tablet PO (21:25)
--- NOTE | 2021-06-11 23:09 | NURSING ---
Dr. Peng called for hs blood sugar at 411. 1x dose humalog 20u given per order. kiln fireman came to assess pt, earlier it was reported his midline to the left upper arm was leaking. kiln fireman flushed midline just fine and stated she could not fine any signs of leaking or infiltration. Asked to run 2200 dose of ATB and will be back to assess. This nurse reported to RN upon second assessment that dx was indeed wet. IV stopped. kiln fireman back in room to assess pt. Pt reports to having clots surgically removed from RT arm, multimedia assistant is unable to use this arm d/t clot hx, new midline was not placed at this time. she reports dining room manager will be back in tomorrow.
[2021-06-12] MEDS: Insulin Lispro 100 UNIT/ML INSULN.PEN 20 UNIT SC (00:26)
[2021-06-12 06:31] LABS: Bedside Glucose 192 mg/dL (70-110)
[2021-06-12] MEDS: Enoxaparin 30 MG/0.3 ML Syringe SC (06:52)
[2021-06-12] MEDS: Polyethylene Glycol 3350 17 GM PACKET PO (06:52)
[2021-06-12] MEDS: Ascorbic Acid 500 MG Tablet 1000 MG PO ×3 (06:55→22:33)
[2021-06-12] MEDS: oxyCODONE 5 MG Tablet 10 MG PO ×5 (06:55→22:32)
[2021-06-12] MEDS: Cholecalciferol (VIT D3) 25 MCG TABLET (1,000 UNITS) 125 MCG PO (06:55)
[2021-06-12] MEDS: Senna/Docusate Sodium 1 Tablet 2 TABLET PO (06:55)
[2021-06-12] MEDS: Carvedilol 12.5 MG Tablet PO (06:56)
[2021-06-12] MEDS: Menthol/Lanolin/Calamine/Znox 113 GM Tube 1 APPLIC TOPICAL (06:56)
[2021-06-12] MEDS: Gabapentin 800 MG Tablet PO ×3 (06:56→22:33)
[2021-06-12 07:05] LABS: Bedside Glucose 336 mg/dL (70-110)
[2021-06-12 07:05] LABS: Bedside Glucose 304 mg/dL (70-110)
[2021-06-12] MEDS: Aspirin 81 MG TAB.CHEW PO (07:58)
[2021-06-12] MEDS: Juven (unflavored) Packet 1 PACKET PO ×2 (07:59→17:39)
[2021-06-12] MEDS: Insulin Lispro 100 UNIT/ML INSULN.PEN 80 UNIT SC ×3 (08:41→17:40)
--- NOTE | 2021-06-12 10:23 | NURSING ---
Per Dr. Peng, nursing to start a pherphial IV and remove the midline.
[2021-06-12 11:00] LABS: Bedside Glucose 305 mg/dL (70-110)
--- NOTE | 2021-06-12 12:30 | CASEMGMT ---
Social Work Received phone call from dtr requesting updates on pt's care. Dtr explained she speaks with pt regularly but his updates are not often accurate. Inquired about any cognition deficits. Dtr reports because he is so hard of hearing and doesn't like wearing his hearing aids, he doesn't hear to comprehend and recall the information. SW agrees and offered to pt to assist with resources for new hearing aids - dtr has offered this in the past multiple times as well and pt refused/reports he doesn't have the funds. Dtr acknowledged pt refuses care and can get agitated. She reports he is a heavy smoker, 2 packs/day, which he is not truthful to medical staff when asked, thus he may be going through withdrawal is gets agitated. Pt has refused a nicotine patch several times, which dtr is aware of and okay with this. Dtr inquired about course of IV ATB, wound healing, wound vac, insurance coverage, and DC plans as he lives home alone and she lives an hour away. SW answered questions in scope and referred to nursing for further medical questions. Explained Medicare benefit, IV ATB are stopped 06/13, but still has wound vac and wound healing before pt will DC. Reviewed chart and explained update on progress in PT/OT - SBA using knee sling with FWW or sitting for ADLs due to NWBS. The goal is for pt to remain to get further wound treatment and in controlled environment. Dtr agrees and would like pt to remain for as long as possible. expressed concern with pt not being compliant with maintaining WBS at home and healing would digress. Explained IDT collaborates with pt to determine DC date and plan. SW to order needed HHC and DME. Dtr expressed great appreciation for SW time and assistance. Offered for dtr to contact this worker or nursing for any updates. SW to continue to follow. Corrine Palafox, [employer] HELP DESK INTERN
[2021-06-12 13:36] VITALS: BP 129/54; PULSE 71; RESP 19; TEMP 36.5; O2SAT 93
[2021-06-12] MEDS: Acetaminophen 500 MG Tablet 1000 MG PO (13:46)
--- NOTE | 2021-06-12 15:52 | NURSING ---
Per Pharmacist Matteo, nursing is to non-administer the 1400 ampicillin dose d/t times being off because of midline leaking.
[2021-06-12 16:31] LABS: Bedside Glucose 226 mg/dL (70-110)
[2021-06-12] MEDS: Vancomycin IV 1,000 MG/200 ML BAG 200 MG IV (17:48)
--- NOTE | 2021-06-12 19:01 | PCA ---
COAL OR ORE CONTROLLER offered to help patient get washed up for bed and HS care. Patient stated that they just gave me a clean gown and i usually get cleaned up in the morning. Im good for the night
[2021-06-12 21:25] LABS: Bedside Glucose 289 mg/dL (70-110)
[2021-06-12] MEDS: Atorvastatin Calcium 80 MG Tablet PO (22:34)
[2021-06-13] MEDS: Enoxaparin 30 MG/0.3 ML Syringe SC (05:29)
[2021-06-13] MEDS: Carvedilol 12.5 MG Tablet PO (05:29)
[2021-06-13] MEDS: Gabapentin 800 MG Tablet PO ×3 (05:29→21:50)
[2021-06-13] MEDS: Ascorbic Acid 500 MG Tablet 1000 MG PO ×3 (05:29→21:50)
[2021-06-13] MEDS: oxyCODONE 5 MG Tablet 10 MG PO ×5 (05:29→21:49)
[2021-06-13] MEDS: Cholecalciferol (VIT D3) 25 MCG TABLET (1,000 UNITS) 125 MCG PO (05:29)
[2021-06-13] MEDS: Menthol/Lanolin/Calamine/Znox 113 GM Tube 1 APPLIC TOPICAL (05:37)
[2021-06-13 06:25] LABS: Bedside Glucose 152 mg/dL (70-110)
--- NOTE | 2021-06-13 08:12 | MDS.RN ---
Information for the mds was obtained from review of the clinical record, interview of resident, staff, and direct observation of resident's care.
[2021-06-13] MEDS: Insulin Lispro 100 UNIT/ML INSULN.PEN 80 UNIT SC (08:23)
[2021-06-13] MEDS: Juven (unflavored) Packet 1 PACKET PO ×2 (08:37→17:42)
[2021-06-13] MEDS: Aspirin 81 MG TAB.CHEW PO (08:37)
--- NOTE | 2021-06-13 10:30 | NURSING ---
Pt upset this morning asked to speak with the mobile developer. He stated that he is not getting the food he has been ordering and wanted two hotdogs yesterday and was only sent one. Emotional Support Teacher updated that pt wanted to speak with her. Pt was educated on health risk associated with increased intake of calories, sodium, and carbohydrates. Pt verbalized understanding, mobile developer reported to this nurse that pt is on a regular diet and can order what he likes and understands the health risks.
[2021-06-13 10:46] LABS: Bedside Glucose 299 mg/dL (70-110)
[2021-06-13] MEDS: Insulin Lispro 100 UNIT/ML INSULN.PEN 60 UNIT SC ×2 (11:34→17:36)
--- NOTE | 2021-06-13 11:39 | WOUNDNOTE ---
Pt tolerated VAC change well.
[2021-06-13] MEDS: 0.9% Saline Lock 10 ML Syringe IV (13:35)
[2021-06-13 14:15] VITALS: BP 163/69; PULSE 75; RESP 14; TEMP 36.4; O2SAT 94
[2021-06-13 16:11] LABS: Bedside Glucose 235 mg/dL (70-110)
[2021-06-13] MEDS: Vancomycin IV 1,000 MG/200 ML BAG 200 MG IV (17:41)
[2021-06-13 21:36] LABS: Bedside Glucose 386 mg/dL (70-110)
[2021-06-13] MEDS: Atorvastatin Calcium 80 MG Tablet PO (21:49)
[2021-06-14 06:50] LABS: Bedside Glucose 157 mg/dL (70-110)
[2021-06-14] MEDS: Enoxaparin 30 MG/0.3 ML Syringe SC (06:53)
[2021-06-14] MEDS: Carvedilol 12.5 MG Tablet PO (06:53)
[2021-06-14] MEDS: Gabapentin 800 MG Tablet PO ×3 (06:53→21:14)
[2021-06-14] MEDS: Menthol/Lanolin/Calamine/Znox 113 GM Tube 1 APPLIC TOPICAL (06:54)
[2021-06-14] MEDS: Cholecalciferol (VIT D3) 25 MCG TABLET (1,000 UNITS) 125 MCG PO (06:54)
[2021-06-14] MEDS: Ascorbic Acid 500 MG Tablet 1000 MG PO ×3 (06:54→21:14)
[2021-06-14] MEDS: oxyCODONE 5 MG Tablet 10 MG PO ×5 (06:58→21:14)
[2021-06-14] MEDS: Juven (unflavored) Packet 1 PACKET PO ×2 (07:58→17:10)
[2021-06-14] MEDS: Aspirin 81 MG TAB.CHEW PO (07:58)
[2021-06-14] MEDS: Insulin Lispro 100 UNIT/ML INSULN.PEN 60 UNIT SC ×3 (07:59→17:12)
[2021-06-14] MEDS: Doxycycline 100 MG CAPSULE PO ×2 (09:37→17:10)
[2021-06-14] MEDS: Amox/Clavulanate 500 MG Tablet PO ×2 (09:37→17:10)
[2021-06-14] MEDS: Acetaminophen 500 MG Tablet 1000 MG PO (09:40)
--- NOTE | 2021-06-14 09:47 | PCM.PN.ID ---
Physical Exam Narrative Feeling ok, wants to go home, foot is sore, no fever Const alert and no apparent distress General Appearance: cooperative Lymph Lymphatic: no lymphadenopathy noted Resp normal air movement and clear to auscultation bilaterally Cardio regular rate and regular rhythm GI soft to palpation, non-tender and non-distended Skin Skin Narrative: foot wrapped, reviewed photos ID ID: Route of nutrition/ use of supplements: [] Nutritional Intake: [] IV Site: [] Gonzales Catheter: [] Assessment & Plan Assessment/Plan (1) Diabetic infection of left foot: PLAN: Sepsis with fever, leukocytosis, PATRICK on CKD, due to L foot infected ulcer. Wound cx here with klebs, proteus, MRSA. MRSA pcr (+). Taken to OR 05/29 with heavy pus drained, surg cx with mrsa, enterococcus, klebs, proteus; did see sinus tract down to periosteal level. Refuses covid vaccine. Cr improved. Completed 2 weeks iv vanc/unasyn. Changing to 4 weeks po abx, with doxy and augmentin, stop date 07/10/21. Will follow
[2021-06-14 10:16] LABS: Bedside Glucose 325 mg/dL (70-110)
[2021-06-14 13:56] VITALS: BP 118/80; PULSE 80; RESP 20; TEMP 36.2; O2SAT 94
[2021-06-14 16:41] LABS: Bedside Glucose 211 mg/dL (70-110)
[2021-06-14] MEDS: Atorvastatin Calcium 80 MG Tablet PO (21:14)
[2021-06-14 21:26] LABS: Bedside Glucose 374 mg/dL (70-110)
[2021-06-14 21:49] VITALS: PULSE 82; RESP 18; O2SAT 92
[2021-06-15] MEDS: Doxycycline 100 MG CAPSULE PO ×2 (06:28→17:54)
[2021-06-15] MEDS: Enoxaparin 30 MG/0.3 ML Syringe SC (06:28)
[2021-06-15] MEDS: Ascorbic Acid 500 MG Tablet 1000 MG PO ×3 (06:28→21:59)
[2021-06-15] MEDS: Cholecalciferol (VIT D3) 25 MCG TABLET (1,000 UNITS) 125 MCG PO (06:28)
[2021-06-15] MEDS: Amox/Clavulanate 500 MG Tablet PO ×2 (06:28→17:54)
[2021-06-15] MEDS: Carvedilol 12.5 MG Tablet PO (06:28)
[2021-06-15] MEDS: Gabapentin 800 MG Tablet PO ×3 (06:28→21:59)
[2021-06-15] MEDS: oxyCODONE 5 MG Tablet 10 MG PO ×2 (06:34→10:27)
[2021-06-15] MEDS: Acetaminophen 500 MG Tablet 1000 MG PO ×3 (06:34→17:59)
[2021-06-15 06:40] LABS: Bedside Glucose 200 mg/dL (70-110)
--- NOTE | 2021-06-15 07:33 | PCM.PROGNOTE ---
Subjective Subjective Patient was seen this morning for follow up on left foot debridement. He relates there is pain to the foot, but it is controlled. He has no complaints of fever, chills, nausea, or vomiting. He was seen bedside with wound nurse Nicole for wound VAC change and also a foot debridement. Objective Data Objective Data Vital Signs: Vital Signs Temp Pulse Resp BP Pulse Ox 97.2 F L 82 18 118/80 92 06/14/21 13:56 06/14/21 21:49 06/14/21 21:49 06/14/21 13:56 06/14/21 21:49 Oxygen Delivery Method Room Air Weight: 130.408 kg Body Mass Index (BMI) 34.9 Intake & Output: Intake and Output for Last 24 Hours 06/13/21 06/14/21 06/15/21 23:59 23:59 23:59 Intake Total 1404.5 / 1404.5 1480 / 1480 0 / 0 Balance 1404.5 / 1404.5 1480 / 1480 0 / 0 Lab / Micro Data Result Diagrams: 06/09/21 05:33 06/09/21 05:33 Labs: Laboratory Results - last 24 hr 06/14/21 10:10: POC Glucose 325 H 06/14/21 16:34: POC Glucose 211 H 06/14/21 21:23: POC Glucose 374 H 06/15/21 06:32: POC Glucose 200 H Micro: Microbiology 06/14/21 13:55 Nasal Secretion SARS-CoV-2 Antigen (Rapid) - Final Physical Exam Narrative Const alert and no apparent distress General Appearance: cooperative and comfortable Extremity There is diffuse left foot/ankle and leg swelling. Left foot s/p debridement to arch and heel, tissues are healthy and viable, granular, down to fascia layer, there is no streaking or odor, compartments remain soft to palpate, there is no fluctuance or bogginess on palpation, no drainage, no visible abscess, no cellulitis, no blistering present. Hematogenous drainage only upon debridement. General Extremity: Negative for clubbing or cyanosis to digits. Predebridement left arch 8 x 5 x 0.5 cm and left heel 2 x 1.7 x 0.4 cm. Post debridement left arch 8.1 x 5.1 x 0.7 cm and left heel 2.1 x 1.9 x 0.6 cm Vasc normal capillary refill, no acute ischemic skin changes noted, normal temperature bilateral. Const alert, oriented x3 and no apparent distress Skin Skin Narrative: Wound Narrative: Neuro Neuro Narrative: Assessment & Plan Assessment/Plan (1) Abscess of left foot: (2) Ulcer of left foot with necrosis of muscle: (3) Cellulitis of left foot: PLAN: I reviewed and discussed his case. Infection: Clinically doing well. He is afebrile and his vital signs are stable. Completed IV antibiotics and now he is changed to 4 weeks po abx, with doxy and augmentin, stop date 07/10/21. Dressing: Continue wound vac -continue 125mmHg continuous - change q 48-72 hours. This was reapplied this morning Debridement: Subcutaneous excisional debridement was performed after verbal consent with a 5 mm curette. Pressure was applied to maintain hemostasis. This was performed to remove devitalized subcutaneous tissue, fibrous tissue, biofilm and slough. He tolerated this well. Anesthetic was not required due to his neuropathic status. This was performed to the left heel and arch wounds. Offloading: To maintain a strict nonweightbearing status to left lower extremity and use assistive device. To work with PT and OT. Vascular: Arterial studies were reviewed. Showing likely adequate perfusion for healing. Referral to Dr. Campos for potential venous and arterial intervention was provided. Edema: Kevin wrap, elevation, and dietary salt restrictions are recommended. Venous doppler ordered to rule out DVT. Pain: controlled with pain medication prn morphine and oxycodone. Host factors: His comorbidities are noted and he is at risk for continued delayed or nonhealing. Medical management is appreciated. Smoking and tobacco cessation is recommended. To continue nutritional supplementation to optimize the healing process. Discharge planning: in Transitional care unit at this time. He may benefit from extended skilled facility care during his entire wound healing process. I answered all of his questions. The podiatry team will continue to follow him closely while in house weekly. Please do not hesitate to call if you have any questions. Tiffany Chapman DPM, [facility] [phone]
[2021-06-15] MEDS: Aspirin 81 MG TAB.CHEW PO (08:11)
[2021-06-15] MEDS: Juven (unflavored) Packet 1 PACKET PO ×2 (08:11→17:54)
[2021-06-15] MEDS: Insulin Lispro 100 UNIT/ML INSULN.PEN 67 UNIT SC ×2 (08:15→11:51)
--- NOTE | 2021-06-15 08:26 | NURSING ---
pt refusing Calmoseptine to butt. pt stated it gets every where and is a mess.
[2021-06-15] MEDS: Ketoconazole Cream 1 APPLIC TOPICAL ×2 (10:33→17:51)
[2021-06-15 10:35] VITALS: PULSE 69; RESP 18
--- NOTE | 2021-06-15 10:50 | NURSING ---
THIS NURSE WASHED PT SCROTUM AND APPLIED CREAM PER ORDER. ELEVATED SCROTUM. GAVE PT HIS SCHEDULED OXY IN A MED CUP.PT DUMPED PILLS IN HAND AND PUT MED CUP TO MOUTH LIKE HE TOOK PILLS, TOOK DRINK OF WATER AND THEN PRECEDED TO DRAG HANDS ACROSS BED TABLE AND THIS NURSE WATCHED PT DROP SOME THING ON SIDE DROP DOWN AREA OF TABLE. THIS NURSE LOOKED UNDER [place] IN THAT AREA AND FOUND THAT PT HAD PUT THE 2 TABS OF OXY UNDER IT. THIS NURSE TOLD PT TO TAKE THE PILLS AND THAT WE DO NOT NOT TAKE PILLS AND HIDE THEM HERE OR GIVE THEM BACK. PT STATED OK. PT THEN TOOK PILLS AND THIS NURSE CHECKED HIS HANDS AND LOOKED INSIDE HIS MOUTH TO MAKE SURE THEY WERE TAKEN. REPORTED TO RN,ISAURA CHAHAL AND SHARAN.
[2021-06-15 11:35] LABS: Bedside Glucose 325 mg/dL (70-110)
[2021-06-15 14:03] VITALS: BP 117/39; PULSE 67; RESP 19; TEMP 36.4; O2SAT 90
[2021-06-15 16:10] LABS: Bedside Glucose 295 mg/dL (70-110)
[2021-06-15] MEDS: Insulin Lispro 100 UNIT/ML INSULN.PEN 73 UNIT SC (17:49)
[2021-06-15 21:31] LABS: Bedside Glucose 201 mg/dL (70-110)
[2021-06-15] MEDS: Atorvastatin Calcium 80 MG Tablet PO (21:58)
[2021-06-16] MEDS: Enoxaparin 30 MG/0.3 ML Syringe SC (06:00)
[2021-06-16] MEDS: Cholecalciferol (VIT D3) 25 MCG TABLET (1,000 UNITS) 125 MCG PO (06:00)
[2021-06-16] MEDS: Ketoconazole Cream 1 APPLIC TOPICAL ×2 (06:00→18:00)
[2021-06-16] MEDS: Doxycycline 100 MG CAPSULE PO ×2 (06:00→18:00)
[2021-06-16] MEDS: Carvedilol 12.5 MG Tablet PO (06:00)
[2021-06-16] MEDS: Gabapentin 800 MG Tablet PO ×3 (06:00→22:00)
[2021-06-16] MEDS: Amox/Clavulanate 500 MG Tablet PO ×2 (06:00→18:00)
[2021-06-16] MEDS: Ascorbic Acid 500 MG Tablet 1000 MG PO ×3 (06:00→22:00)
[2021-06-16] MEDS: Menthol/Lanolin/Calamine/Znox 113 GM Tube 1 APPLIC TOPICAL (06:00)
[2021-06-16] MEDS: Acetaminophen 500 MG Tablet 1000 MG PO ×2 (07:00→18:00)
[2021-06-16] MEDS: oxyCODONE 5 MG Tablet 10 MG PO ×2 (07:00→18:00)
[2021-06-16] MEDS: Aspirin 81 MG TAB.CHEW PO (08:00)
[2021-06-16] MEDS: Juven (unflavored) Packet 1 PACKET PO ×2 (08:00→17:00)
[2021-06-16 16:28] LABS: Anion Gap 5 (5-15); BUN 54 mg/dL (7-18); BUN/Creat Ratio 21.9 RATIO (10-20); Calcium,Total 8.8 mg/dL (8.5-10.1); Chloride 107 mmol/L (98-107); Creatinine, Serum 2.47 mg/dL (0.70-1.30); EST Glomerular Filtration Rate 28 mL/min (>60); Est Glom Filt Rate - Afr Amer 34 mL/min (>60); Estimated Creatinine Clearance 34.69 ml/min; Glucose 152 mg/dL (74-106); Potassium 4.7 mmol/L (3.5-5.1); Sodium Level 138 mmol/L (136-145)
[2021-06-16] MEDS: Insulin Lispro 100 UNIT/ML INSULN.PEN 73 UNIT SC (16:45)
[2021-06-16 19:24] LABS: Bedside Glucose 152 mg/dL (70-110)
[2021-06-16 19:25] LABS: Bedside Glucose 322 mg/dL (70-110)
[2021-06-16 19:25] LABS: Bedside Glucose 179 mg/dL (70-110)
[2021-06-16 21:30] LABS: Bedside Glucose 243 mg/dL (70-110)
[2021-06-16 21:48] LABS: Absolute Lymphocyte Count 2.29 X10^3/uL (0.83-4.51); Absolute Neutrophil Count 4.9 X10^3/uL (2.0-7.7); Basophil% 1.2 % (0-1); Eosinophil# 0.45 X10^3/uL; Eosinophils% 5.2 % (0-5); Hematocrit 42.9 % (40-54); Hemoglobin 13.4 g/dL (13.0-16.5); Lymphocyte # 2.29 X10^3/ul (0.83-4.51); Lymphocyte % 26.4 % (19-41); Mean Corp Hgb Conc 31.2 g/dL (32-36); Mean Corpuscular Hgb 27.7 pg (27.0-32.0); Mean Corpuscular Volume 88.6 fL (80-94); Monocyte# 0.95 X10^3/uL; Monocyte% 10.9 % (0-10); NRBC Flagged by Analyzer 0 % (0-5); Neutrophil # 4.86 X10^3/uL (2.7-7.7); Platelet Count 208 K/mm3 (150-450); RBC Distribution Width CV 15.4 % (11.6-14.6); RBC Distribution Width SD 49.7 fl (35.1-43.9); Red Blood Count 4.84 M/mm3 (4.6-6.2); White Blood Count 8.7 K/mm3 (4.4-11.0)
[2021-06-16] MEDS: Atorvastatin Calcium 80 MG Tablet PO (22:00)
[2021-06-16 23:56] VITALS: BP 126/76; PULSE 68; RESP 18; TEMP 37; O2SAT 96
[2021-06-17] MEDS: Ascorbic Acid 500 MG Tablet 1000 MG PO ×3 (06:15→21:47)
[2021-06-17] MEDS: Enoxaparin 30 MG/0.3 ML Syringe SC (06:15)
[2021-06-17] MEDS: Gabapentin 800 MG Tablet PO ×3 (06:15→21:46)
[2021-06-17] MEDS: Doxycycline 100 MG CAPSULE PO ×2 (06:15→16:54)
[2021-06-17] MEDS: Cholecalciferol (VIT D3) 25 MCG TABLET (1,000 UNITS) 125 MCG PO (06:16)
[2021-06-17] MEDS: Carvedilol 12.5 MG Tablet PO (06:16)
[2021-06-17] MEDS: Ketoconazole Cream 1 APPLIC TOPICAL ×2 (06:18→16:53)
[2021-06-17] MEDS: Menthol/Lanolin/Calamine/Znox 113 GM Tube 1 APPLIC TOPICAL (06:18)
[2021-06-17] MEDS: Amox/Clavulanate 500 MG Tablet PO ×2 (06:19→16:52)
[2021-06-17] MEDS: Acetaminophen 500 MG Tablet 1000 MG PO ×2 (06:20→12:42)
[2021-06-17 06:31] LABS: Bedside Glucose 143 mg/dL (70-110)
[2021-06-17] MEDS: oxyCODONE 5 MG Tablet 10 MG PO ×2 (06:37→12:42)
[2021-06-17] MEDS: Insulin Lispro 100 UNIT/ML INSULN.PEN 73 UNIT SC ×5 (06:45→16:51)
--- NOTE | 2021-06-17 06:45 | NURSING ---
This nurse was asked by patient to give him oxy. When administering the medication, patient put the medication in his hand and pretended to take the medication. Several communication attempts were made to the patient, in which he ignored me. After multiple attempts, patient denied having the medication in his hand. Patient complied by opening hand, showing the two pills. I asked patient to take the medication or give it back. Patient put medication in mouth showing this nurse, and swished juice around for 2 minutes. Patient educated on danger of taking more medication than prescribed and if his pain is uncontrolled to let us know so we can contact the doctor, patient ignored this nurse and did not respond. Patient then asked me if I could rub his testicles. I told the patient no and left the room.
[2021-06-17] MEDS: Juven (unflavored) Packet 1 PACKET PO ×2 (08:07→16:51)
[2021-06-17] MEDS: Aspirin 81 MG TAB.CHEW PO (08:07)
[2021-06-17 11:35] LABS: Bedside Glucose 382 mg/dL (70-110)
[2021-06-17 11:35] LABS: Bedside Glucose 358 mg/dL (70-110)
[2021-06-17 13:29] VITALS: BP 137/75; PULSE 96; RESP 16; TEMP 36.6; O2SAT 98
[2021-06-17 16:21] LABS: Bedside Glucose 275 mg/dL (70-110)
[2021-06-17] MEDS: Atorvastatin Calcium 80 MG Tablet PO (21:47)
[2021-06-17 21:51] LABS: Bedside Glucose 256 mg/dL (70-110)
[2021-06-18 06:31] LABS: Bedside Glucose 112 mg/dL (70-110)
[2021-06-18] MEDS: Enoxaparin 30 MG/0.3 ML Syringe SC (07:03)
[2021-06-18] MEDS: Cholecalciferol (VIT D3) 25 MCG TABLET (1,000 UNITS) 125 MCG PO (07:03)
[2021-06-18] MEDS: Ascorbic Acid 500 MG Tablet 1000 MG PO ×3 (07:04→22:28)
[2021-06-18] MEDS: Doxycycline 100 MG CAPSULE PO ×2 (07:04→18:35)
[2021-06-18] MEDS: Menthol/Lanolin/Calamine/Znox 113 GM Tube 1 APPLIC TOPICAL (07:04)
[2021-06-18] MEDS: Carvedilol 12.5 MG Tablet PO (07:04)
[2021-06-18] MEDS: Amox/Clavulanate 500 MG Tablet PO ×2 (07:04→18:35)
[2021-06-18] MEDS: Gabapentin 800 MG Tablet PO ×3 (07:06→22:29)
[2021-06-18] MEDS: oxyCODONE 5 MG Tablet 10 MG PO ×3 (07:12→22:31)
[2021-06-18] MEDS: Acetaminophen 500 MG Tablet 1000 MG PO ×3 (07:13→22:30)
[2021-06-18] MEDS: Ketoconazole Cream 1 APPLIC TOPICAL (07:15)
[2021-06-18] MEDS: Juven (unflavored) Packet 1 PACKET PO (08:03)
--- NOTE | 2021-06-18 08:08 | NURSING ---
PT REFUSED INSULIN,STATED I DONT TAKE ANY THING WHEN MY BLOOD SUGAR IS BELOW 150, EDUCATED PT ON THE IMPORTANCE OF TAKING MED. PT STILL REFUSED. PT ALSO REFUSED TAKING ASPIRIN CAUSE THIS NURSE WOULD NOT JUST LEAVE IT THERE FOR PT TO TAKE LATER. PT STATED I DONT TAKE PILLS WHEN MEGAN EATING. THIS NURSE TOLD PT I CAN COME BACK LATER PT STILL STATED NO,I CANT WAIT TO GET OUT OF HERE THIS IS BULLSHIT! RN AWARE
[2021-06-18 10:40] LABS: Bedside Glucose 386 mg/dL (70-110)
[2021-06-18] MEDS: Insulin Lispro 100 UNIT/ML INSULN.PEN 73 UNIT SC ×2 (11:20→17:28)
--- NOTE | 2021-06-18 14:20 | NURSING ---
THIS NURSE IN PT ROOM TO GIVE MEDS AND PT IS AGITATED STATING HE WANTS TO GO HOME,THE FOOD IS HORRIBLE,I CANT DO ANY THING, HATES TAKING HIS VITAMIN C,ETC,ETC. STATED TO PT HE WAS UP AB SERENA IN ROOM PER THERAPY DID NOT HAVE TO TAKE HIS VITAMIN C AND THAT I WOULD LET SHARAN,NEWSPAPER PHOTOGRAPHER KNOW. PT THEN STATED EVERY ONE KNOWS AND I PROBLEM WILL BE HERE 1 MORE WEEK. RN AWARE
[2021-06-18 14:51] VITALS: BP 127/60; PULSE 77; RESP 16; TEMP 36.1; O2SAT 93
[2021-06-18 16:20] LABS: Bedside Glucose 222 mg/dL (70-110)
[2021-06-18 21:31] LABS: Bedside Glucose 262 mg/dL (70-110)
[2021-06-18] MEDS: Atorvastatin Calcium 80 MG Tablet PO (22:30)
[2021-06-19] MEDS: Cholecalciferol (VIT D3) 25 MCG TABLET (1,000 UNITS) 125 MCG PO (06:21)
[2021-06-19] MEDS: Doxycycline 100 MG CAPSULE PO ×2 (06:22→17:34)
[2021-06-19] MEDS: Amox/Clavulanate 500 MG Tablet PO ×2 (06:22→17:34)
[2021-06-19] MEDS: Carvedilol 12.5 MG Tablet PO (06:22)
[2021-06-19] MEDS: Enoxaparin 30 MG/0.3 ML Syringe SC (06:22)
[2021-06-19] MEDS: Menthol/Lanolin/Calamine/Znox 113 GM Tube 1 APPLIC TOPICAL ×2 (06:22→17:36)
[2021-06-19] MEDS: Gabapentin 800 MG Tablet PO ×3 (06:22→21:30)
[2021-06-19] MEDS: Ascorbic Acid 500 MG Tablet 1000 MG PO ×3 (06:22→21:30)
[2021-06-19] MEDS: oxyCODONE 5 MG Tablet 10 MG PO ×2 (06:28→17:37)
[2021-06-19] MEDS: Acetaminophen 500 MG Tablet 1000 MG PO (06:29)
[2021-06-19] MEDS: Ketoconazole Cream 1 APPLIC TOPICAL ×2 (06:33→17:43)
[2021-06-19 06:40] LABS: Bedside Glucose 214 mg/dL (70-110)
[2021-06-19] MEDS: Insulin Lispro 100 UNIT/ML INSULN.PEN 73 UNIT SC ×3 (08:35→17:32)
[2021-06-19] MEDS: Aspirin 81 MG TAB.CHEW PO (08:35)
[2021-06-19 10:46] LABS: Bedside Glucose 309 mg/dL (70-110)
--- NOTE | 2021-06-19 12:46 | CASEMGMT ---
Social Work Spoke with pt yesterday to go over DC plans. Pt requested for this worker to speak with dtr to coordinate pepper picker for DC. Pt is ready to DC any time. Spoke with dtr about DC plans. She is requesting DC 06/30 since she lives out of town and works time signal wirer. IDT agreeable. Dtr agreeable to [facility]. Referral made for PT/SN/BACK. Wound nurse will change pt to home wound vac on 06/29 before DC. [facility] nurse will be out 07/02 to change vac. Provided dtr with list of nonskilled [facility] agencies, per her request, along with [facility] contact information to potentially purchase a knee scooter. Pt does need a FWW with knee sling. [place] [facility] [place] prior to [place]. Updated pt with plan. Pt agreeable and appreciative. Plan: DC home alone 06/30, [facility] PT/SN/BACK, FWW with knee sling MARIJA BlandonW
[2021-06-19] MEDS: Juven (unflavored) Packet 1 PACKET PO ×2 (13:03→17:34)
[2021-06-19 14:24] VITALS: BP 142/63; PULSE 71; RESP 16; TEMP 36.7; O2SAT 94
--- NOTE | 2021-06-19 15:55 | NURSING ---
Resident and daughter, Shyann, notified of staff member testing positive for COVID.
[2021-06-19 16:22] LABS: Bedside Glucose 201 mg/dL (70-110)
--- NOTE | 2021-06-19 18:32 | NURSING ---
Pt complains of increased swelling to penis and stated normally its not a bad thing when your penis is full of fluid, but not when its like this. He is requesting that Dr. Peng look at his penis and scrotum again. Dr. Peng order lasix QD to help with swelling but says the skin is actually looking better. Staff went to administer lasix this evening but pt refused.
--- NOTE | 2021-06-19 19:21 | DS.PCM_ITS ---
Providers Date of Admission: 06/01/21 Primary Care Physician: SULMA OSORIO Consultations 06/01/21 22:31 Consult: Infectious Disease Routine Consulting Provider: Walt Raphael Reason for Consult: Infected diabetic left heel ulcer s/p debridement EMERGENT Consult: No Notified: Yes Date Notified: 06/04/21 Time Notified: 10:20 Method of Notification: phone call Consult: Nephrology Routine Consulting Provider: Shazia Catalan Reason for Consult: Acute on chronic kidney failure/chronic kidney disease stage 4 EMERGENT Consult: No MD Notified: Yes Date Notified: 06/01/21 Time Notified: 22:32 Method of Notification: Verbal Consult: Podiatry Routine Consulting Provider: Tiffany Chapman Reason for Consult: Infected diabetic left foot ulcer s/p debridement. EMERGENT Consult: No Notified: No Date Notified: 06/01/21 Time Notified: 22:32 06/02/21 12:51 Consult: Podiatry Routine Consulting Provider: Tiffany Chapman Reason for Consult: continuity of post operative care EMERGENT Consult: No Notified: Yes Date Notified: 06/02/21 Time Notified: 12:51 Method of Notification: Verbal 06/04/21 07:19 Consult: Onc/Wound/bill sorter Routine Comment: Reason for Consult:: vac left foot Reason For Visit: FOOT OSTEO Diagnosis Discharge Diagnosis (1) Abscess of left foot: Status: Acute Code(s): L02.612 - Cutaneous abscess of left foot (2) Ulcer of left foot with necrosis of muscle: Status: Acute Code(s): L97.523 - Non-pressure chronic ulcer of other part of left foot with necrosis of muscle (3) Cellulitis of left foot: Status: Acute Code(s): L03.116 - Cellulitis of left lower limb Medications at Discharge Home Medications ascorbic acid (vitamin C) 1,000 mg PO TID 07/11/20 aspirin 81 mg PO DAILY@0800 07/11/20 atorvastatin 80 mg PO QHS 07/11/20 insulin glargine 35 unit SQ BREAKFAST 07/11/20 insulin glargine 40 unit SQ QHS 07/11/20 carvedilol 12.5 mg PO DAILY 08/17/20 cholecalciferol (vitamin D3) 125 mcg PO DAILY 05/28/21 melatonin 3 mg PO QHS PRN PRN #0 tab 06/01/21 acetaminophen 1,000 mg PO Q6H PRN PRN #0 tab 06/19/21 amoxicillin-pot clavulanate 500 mg PO BID 10 Days #20 tab 06/19/21 uxryh-cnse-FsFCL-vbodek-sp-hkr [Corwin (with collagen)] 1 packet PO BIDCM 30 Days #60 ea 06/19/21 doxycycline monohydrate 100 mg PO BID 10 Days #20 cap 06/19/21 gabapentin 800 mg PO TID 30 Days #90 tab 06/19/21 oxycodone 10 mg PO Q6H PRN PRN 3 Days #24 tab 06/19/21 zinc sulfate 220 mg PO DAILY #0 cap 06/19/21 Hospital Course Operations - (Left heel debridement.) Procedures None Summary of Care Provided Minutes Spent on Discharge: 35 Hospital Course: 65 year old male with below past medical history hospitalized for sepsis, infected left diabetic heel ulcer requiring debridement, complicated by acute kidney injury, hyperkalemia, admitted to TCU with debility, here for rehabilitation, strengthening, intravenous antibiotics, prior to discharge home alone. Discharge home alone 06/30/2021, [facility] PT/SN/BACK, Front wheeled walker with knee sling. Physical Exam Const alert and oriented x3 General Appearance: cooperative HEENT normocephalic Eyes PERRL and EOMs intact bilaterally Neck supple, no JVD and no carotid bruits Resp normal respiratory effort, normal air movement and clear to auscultation bilaterally Cardio regular rate and regular rhythm GI normal to inspection, nondistended, normoactive bowel sounds, non-tender and non-distended Extremity normal capillary refill General Extremity: Negative for edema Skin no rashes or lesions noted Skin Narrative: Wound VAC left heel. General Skin Exam: no breakdown Psych affect normal Appearance: appropriate Weight / BMI Weight Weight: 129.546 kg Body Mass Index (BMI) 34.9 ABG / Lab / Microbiology Data Result Diagrams: 06/16/21 06:40 06/16/21 06:40 Laboratory: Laboratory Results - last 24 hr 06/18/21 21:24: POC Glucose 262 H 06/19/21 06:20: POC Glucose 214 H 06/19/21 10:41: POC Glucose 309 H 06/19/21 16:13: POC Glucose 201 H Microbiology: Microbiology 06/14/21 13:55 Nasal Secretion SARS-CoV-2 Antigen (Rapid) - Final D/C Instructions Discharge Diet: No restrictions Discharge Activity: Return to Normal Activity and May Shower May resume sexual activity in: No Restrictions Weight Bearing Status: No weight bearing (Left lower extremity) Call your doctor if you observe: Fever of 101 or Higher, Inability to urinate, Inability to have a bowel movement, Shortness of breath, Dizziness, Fainting spells, Swelling in the ankles, Chest pain and Uncontrolled pain Additional Instructions: Discharge home alone 06/30/2021, [facility] PT/SN/BACK, Front wheeled walker with knee sling. Meaningful Use Info Meaningful Use Diagnoses (Choose all that apply): None applicable Discharge Plan Admission Admit Date/Time: 06/01/21 21:18 Primary Reason for Your Visit: Debility. Attending Provider: Herminio Peng Chi Consulting Providers: Tiffany Chapman ; Walt Raphael ; Megan Catalan Instructions Additional Instructions / Restrictions: Strict nonweightbearing left lower extremity Change wound VAC 3 times a week; 150 mmHg continuous Discharge home alone 06/30/2021, [facility] PT/SN/BACK, Front wheeled walker with knee sling. Discharge Orders/Prescriptions Prescriptions: New acetaminophen 500 mg Tablet 1,000 mg PO Q6H PRN PRN (Reason: Pain Score 1-10) Qty: 0 RF: 0 gabapentin 800 mg Tablet 800 mg PO TID 30 Days Qty: 90 RF: 0 doxycycline monohydrate 100 mg Capsule 100 mg PO BID 10 Days Qty: 20 RF: 0 amoxicillin-pot clavulanate 500-125 mg Tablet 500 mg PO BID 10 Days Qty: 20 RF: 0 oxycodone 5 mg Tablet 10 mg PO Q6H PRN PRN (Reason: Pain Score 6-10) 3 Days Qty: 24 RF: 0 zinc sulfate 50 mg zinc (220 mg) Capsule 220 mg PO DAILY Qty: 0 RF: 0 Corwin (with collagen) 7-7-1.5 gram Powder In Packet 1 packet PO BIDCM 30 Days Qty: 60 RF: 0 Continued atorvastatin 80 MG tablet 80 mg PO QHS RF: 0 ascorbic acid (vitamin C) 1,000 MG tablet 1,000 mg PO TID RF: 0 insulin glargine 100 UNIT/ML solution 35 unit SQ BREAKFAST RF: 0 aspirin 81 MG tablet,chewable 81 mg PO DAILY@0800 RF: 0 insulin glargine 100 UNIT/ML insulin pen 40 unit SQ QHS RF: 0 carvedilol 12.5 MG tablet 12.5 mg PO DAILY RF: 0 cholecalciferol (vitamin D3) 125 mcg (5,000 unit) Capsule 125 mcg PO DAILY RF: 0 melatonin 3 mg Tablet 3 mg PO QHS PRN PRN (Reason: Insomnia) Qty: 0 RF: 0 Discontinued insulin lispro 100 UNIT/ML insulin pen See Protocol unit SQ DAILY RF: 0 gabapentin [Neurontin] 800 mg Tablet 800 mg PO TID RF: 0 acetaminophen [Tylenol] 325 mg Tablet 650 mg PO Q4H PRN PRN (Reason: Fever, pain 1-02/25) Qty: 0 RF: 0 albuterol sulfate 2.5 mg /3 mL (0.083 %) Solution For Nebulization 2.5 mg inhalation Q2H PRN PRN (Reason: Dyspnea, wheezing) Qty: 0 RF: 0 sennosides-docusate sodium [Stool Softener-Stimulant Laxat] 8.6-50 mg Tablet 2 tab PO BID PRN PRN (Reason: Constipation) Qty: 0 RF: 0 oxycodone 5 mg Tablet 10 mg PO Q4H PRN PRN (Reason: Pain Score 4-5) 2 Days Qty: 6 RF: 0 Daily Fiber (psyllium-aspart) 3 gram Powder In Packet 1 packet PO DAILY PRN PRN (Reason: Constipation) Qty: 0 RF: 0 nicotine 21 mg/24 hr patch 24 hour 21 mg transdermal DAILY RF: 0 enoxaparin 30 mg/0.3 mL syringe 30 mg subcut DAILY@0600 RF: 0 ampicillin-sulbactam 3 gram recon soln 3 g IV Q12H RF: 0 Corwin (with collagen) 7-7-1.5 gram powder in packet 1 packet PO BIDCM RF: 0 vancomycin 1.25 gram recon soln 1.25 g IV Q24H RF: 0 Referrals / Follow Up: SULMA OSORIO [Other] Tiffany Chapman DPM [STAFF PHYSICIAN] - In 1 Week (Follow-up at wound healing center. Call [phone] to schedule.) Disposition Disposition (needs filled in before D/C Order can be placed): Home Health Service
[2021-06-19] MEDS: Atorvastatin Calcium 80 MG Tablet PO (21:30)
[2021-06-19 21:46] LABS: Bedside Glucose 197 mg/dL (70-110)
[2021-06-20] MEDS: Ascorbic Acid 500 MG Tablet 1000 MG PO ×3 (06:39→21:51)
[2021-06-20] MEDS: Gabapentin 800 MG Tablet PO ×3 (06:39→21:51)
[2021-06-20] MEDS: Furosemide 40 MG Tablet PO (06:39)
[2021-06-20] MEDS: Amox/Clavulanate 500 MG Tablet PO ×2 (06:39→17:12)
[2021-06-20] MEDS: Carvedilol 12.5 MG Tablet PO (06:39)
[2021-06-20] MEDS: Enoxaparin 30 MG/0.3 ML Syringe SC (06:39)
[2021-06-20] MEDS: Cholecalciferol (VIT D3) 25 MCG TABLET (1,000 UNITS) 125 MCG PO (06:39)
[2021-06-20] MEDS: Doxycycline 100 MG CAPSULE PO ×2 (06:39→17:12)
[2021-06-20 06:40] LABS: Bedside Glucose 158 mg/dL (70-110)
[2021-06-20] MEDS: oxyCODONE 5 MG Tablet 10 MG PO ×2 (06:46→17:15)
[2021-06-20] MEDS: Acetaminophen 500 MG Tablet 1000 MG PO (06:47)
[2021-06-20] MEDS: Ketoconazole Cream 1 APPLIC TOPICAL ×2 (06:52→17:15)
[2021-06-20] MEDS: Menthol/Lanolin/Calamine/Znox 113 GM Tube 1 APPLIC TOPICAL (06:54)
--- NOTE | 2021-06-20 06:56 | NURSING ---
As this Nurse was giving patient Lantus, patient requested this Nurse not to give Lantus because his sugar was only 158 mg/d/L. Patient was given 80 units.
[2021-06-20] MEDS: Insulin Lispro 100 UNIT/ML INSULN.PEN 73 UNIT SC ×3 (09:11→17:23)
[2021-06-20] MEDS: Potassium Chloride Oral Tablet 20 MEQ PO (09:16)
[2021-06-20] MEDS: Juven (unflavored) Packet 1 PACKET PO ×2 (09:16→17:12)
[2021-06-20] MEDS: Aspirin 81 MG TAB.CHEW PO (09:16)
[2021-06-20 09:55] LABS: Bedside Glucose 342 mg/dL (70-110)
[2021-06-20 12:55] VITALS: BP 129/73; PULSE 79; RESP 18; TEMP 36.8; O2SAT 95
[2021-06-20 16:21] LABS: Bedside Glucose 216 mg/dL (70-110)
--- NOTE | 2021-06-20 18:34 | PCM.PROGNOTE ---
Subjective Subjective Patient was seen this afternoon for follow up on left foot debridement. He relates there is pain to the foot, but it is controlled. He has no complaints of fever, chills, nausea, or vomiting. He was seen bedside with nurse Hussein for wound VAC change. Objective Data Objective Data Vital Signs: Vital Signs Temp Pulse Resp BP Pulse Ox 98.2 F 79 18 129/73 H 95 06/20/21 12:55 06/20/21 12:55 06/20/21 12:55 06/20/21 12:55 06/20/21 12:55 Oxygen Delivery Method Room Air Weight: 129.546 kg Body Mass Index (BMI) 34.9 Intake & Output: Intake and Output for Last 24 Hours 06/18/21 06/19/21 06/20/21 23:59 23:59 23:59 Intake Total 1240 / 1240 840 / 840 960 / 960 Balance 1240 / 1240 840 / 840 960 / 960 Lab / Micro Data Result Diagrams: 06/16/21 06:40 06/16/21 06:40 Labs: Laboratory Results - last 24 hr 06/19/21 21:38: POC Glucose 197 H 06/20/21 06:18: POC Glucose 158 H 06/20/21 09:52: POC Glucose 342 H 06/20/21 16:16: POC Glucose 216 H Micro: Microbiology 06/14/21 13:55 Nasal Secretion SARS-CoV-2 Antigen (Rapid) - Final Physical Exam Narrative Const alert and no apparent distress General Appearance: cooperative and comfortable Extremity There is diffuse left foot/ankle and leg swelling. Left foot s/p debridement to arch and heel, tissues are healthy and viable, granular, down to fascia layer, there is no streaking or odor, compartments remain soft to palpate, there is no fluctuance or bogginess on palpation, no drainage, no visible abscess, no cellulitis, no blistering present. Hematogenous drainage only upon debridement. General Extremity: Negative for clubbing or cyanosis to digits. Predebridement left arch 8 x 5 x 0.5 cm and left heel 2 x 1.7 x 0.4 cm. Post debridement left arch 8.1 x 5.1 x 0.7 cm and left heel 2.1 x 1.9 x 0.6 cm Vasc normal capillary refill, no acute ischemic skin changes noted, normal temperature bilateral. 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 Infection: Clinically doing well. He is afebrile and his vital signs are stable. Completed IV antibiotics and now he is changed to 4 weeks po abx, with doxy and augmentin, stop date 07/10/21. Dressing: Continue wound vac -continue 125mmHg continuous - change q 48-72 hours. This was reapplied this afternoon Debridement: Performed 06/15/2021 subcutaneous excisional debridement was performed after verbal consent with a 5 mm curette. Pressure was applied to maintain hemostasis. This was performed to remove devitalized subcutaneous tissue, fibrous tissue, biofilm and slough. He tolerated this well. Anesthetic was not required due to his neuropathic status. This was performed to the left heel and arch wounds. Today 06-20-21 wounds continue to demonstrate no localized signs of infection with healthy granular tissue in the wound bed. Offloading: To maintain a strict nonweightbearing status to left lower extremity and use assistive device. To work with PT and OT. Vascular: Arterial studies were reviewed. Showing likely adequate perfusion for healing. Referral to Dr. Campos for potential venous and arterial intervention was provided. Edema: Kevin wrap, elevation, and dietary salt restrictions are recommended. Venous doppler ordered to rule out DVT. Pain: controlled with pain medication prn morphine and oxycodone. Host factors: His comorbidities are noted and he is at risk for continued delayed or nonhealing. Medical management is appreciated. Smoking and tobacco cessation is recommended. To continue nutritional supplementation to optimize the healing process. Discharge planning: in Transitional care unit at this time. He may benefit from extended skilled facility care during his entire wound healing process. I answered all of his questions. The podiatry team will continue to follow him closely while in house weekly. Please do not hesitate to call if you have any questions. Jr[facility] Melani [facility]P.M[facility] [phone]
[2021-06-20 21:20] LABS: Bedside Glucose 249 mg/dL (70-110)
[2021-06-20] MEDS: Atorvastatin Calcium 80 MG Tablet PO (21:51)
[2021-06-20 22:00] VITALS: PULSE 90; RESP 18; O2SAT 95
--- NOTE | 2021-06-20 22:01 | NURSING ---
Patient requesting urology consult for his scrotum and penis edema. Message left for Dr. Peng.
[2021-06-21 06:15] LABS: Bedside Glucose 131 mg/dL (70-110)
[2021-06-21 06:19] LABS: Anion Gap 6 (5-15); BUN 66 mg/dL (7-18); BUN/Creat Ratio 24.7 RATIO (10-20); Calcium,Total 9.2 mg/dL (8.5-10.1); Chloride 105 mmol/L (98-107); Creatinine, Serum 2.67 mg/dL (0.70-1.30); EST Glomerular Filtration Rate 26 mL/min (>60); Est Glom Filt Rate - Afr Amer 31 mL/min (>60); Estimated Creatinine Clearance 32.09 ml/min; Glucose 129 mg/dL (74-106); Potassium 4.4 mmol/L (3.5-5.1); Sodium Level 138 mmol/L (136-145)
[2021-06-21] MEDS: Doxycycline 100 MG CAPSULE PO ×2 (06:23→17:55)
[2021-06-21] MEDS: Gabapentin 800 MG Tablet PO ×3 (06:23→21:38)
[2021-06-21] MEDS: Ascorbic Acid 500 MG Tablet 1000 MG PO ×3 (06:23→21:38)
[2021-06-21] MEDS: Amox/Clavulanate 500 MG Tablet PO ×2 (06:23→17:55)
[2021-06-21] MEDS: Carvedilol 12.5 MG Tablet PO (06:23)
[2021-06-21] MEDS: Cholecalciferol (VIT D3) 25 MCG TABLET (1,000 UNITS) 125 MCG PO (06:23)
[2021-06-21] MEDS: Furosemide 40 MG Tablet PO (06:23)
[2021-06-21] MEDS: Enoxaparin 30 MG/0.3 ML Syringe SC (06:24)
[2021-06-21] MEDS: Acetaminophen 500 MG Tablet 1000 MG PO ×2 (06:28→22:02)
[2021-06-21] MEDS: oxyCODONE 5 MG Tablet 10 MG PO ×2 (06:28→17:58)
[2021-06-21] MEDS: Menthol/Lanolin/Calamine/Znox 113 GM Tube 1 APPLIC TOPICAL (06:34)
[2021-06-21] MEDS: Insulin Lispro 100 UNIT/ML INSULN.PEN 73 UNIT SC ×3 (08:35→17:52)
[2021-06-21] MEDS: Aspirin 81 MG TAB.CHEW PO (08:40)
[2021-06-21] MEDS: Potassium Chloride Oral Tablet 20 MEQ PO (08:40)
[2021-06-21] MEDS: Juven (unflavored) Packet 1 PACKET PO ×2 (08:40→17:54)
--- NOTE | 2021-06-21 08:55 | NURSING ---
Daquan's office closed today d/t inclement weather, message left on office voicemail to update on need for consult.
[2021-06-21 10:51] LABS: Bedside Glucose 267 mg/dL (70-110)
--- NOTE | 2021-06-21 12:26 | CASEMGMT ---
Social Work [facility] notified this worker that insurance will not cover the knee sling, and pt received a FWW in 2019 thus he is not eligible for a new one. [facility] does not have a knee sling in stock. Referred to [facility]. They do have a knee sling in stock and will hold it for pt. It is $95. SW spoke with pt to update. Pt is willing to pay for the sling. Notified dtr to bring FWW from home and pickle solution maker knee sling prior to picking up pt for discharge. Corrine Palafox, MACHINIST HELPER MARINE CARAMEL CUTTER HELPER
--- NOTE | 2021-06-21 13:45 | NURSING ---
Resident and daughter, Shyann, notified of a resident on the unit testing positive for COVID.
[2021-06-21 13:46] VITALS: BP 137/68; PULSE 77; RESP 14; TEMP 36.6; O2SAT 94
[2021-06-21 16:30] LABS: Bedside Glucose 176 mg/dL (70-110)
[2021-06-21 21:25] LABS: Bedside Glucose 322 mg/dL (70-110)
[2021-06-21] MEDS: Atorvastatin Calcium 80 MG Tablet PO (21:38)
[2021-06-21] MEDS: Ketoconazole Cream 1 APPLIC TOPICAL (22:01)
[2021-06-22 06:25] LABS: Bedside Glucose 192 mg/dL (70-110)
[2021-06-22] MEDS: Ketoconazole Cream 1 APPLIC TOPICAL (06:44)
[2021-06-22] MEDS: Gabapentin 800 MG Tablet PO ×3 (06:44→21:12)
[2021-06-22] MEDS: Cholecalciferol (VIT D3) 25 MCG TABLET (1,000 UNITS) 125 MCG PO (06:44)
[2021-06-22] MEDS: Ascorbic Acid 500 MG Tablet 1000 MG PO ×3 (06:45→21:12)
[2021-06-22] MEDS: Carvedilol 12.5 MG Tablet PO (06:45)
[2021-06-22] MEDS: Furosemide 40 MG Tablet PO (06:45)
[2021-06-22] MEDS: Doxycycline 100 MG CAPSULE PO (06:45)
[2021-06-22] MEDS: Amox/Clavulanate 500 MG Tablet PO (06:45)
[2021-06-22] MEDS: Acetaminophen 500 MG Tablet 1000 MG PO ×3 (06:46→21:13)
[2021-06-22] MEDS: oxyCODONE 5 MG Tablet 10 MG PO ×3 (06:46→21:15)
[2021-06-22] MEDS: Juven (unflavored) Packet 1 PACKET PO (07:47)
[2021-06-22] MEDS: Potassium Chloride Oral Tablet 20 MEQ PO (07:47)
[2021-06-22] MEDS: Aspirin 81 MG TAB.CHEW PO (07:47)
[2021-06-22] MEDS: Insulin Lispro 100 UNIT/ML INSULN.PEN 73 UNIT SC ×2 (07:52→11:33)
[2021-06-22 11:15] LABS: Bedside Glucose 377 mg/dL (70-110)
--- NOTE | 2021-06-22 13:57 | PCM.PN.REN ---
Subjective Subjective no new complaints. somewhat upset Objective Data Objective Data Vital Signs: Vital Signs Temp Pulse Resp BP Pulse Ox 97.8 F 77 14 137/68 H 94 06/21/21 13:46 06/21/21 13:46 06/21/21 13:46 06/21/21 13:46 06/21/21 13:46 Oxygen Delivery Method Room Air Weight: 129.546 kg Body Mass Index (BMI) 34.9 Intake & Output: Intake and Output for Last 24 Hours 06/20/21 06/21/21 06/22/21 23:59 23:59 23:59 Intake Total 960 / 960 1440 / 1440 460 / 460 Output Total 700 / 700 Balance 960 / 960 1440 / 1440 -240 / -240 Lab / Micro Data Result Diagrams: 06/16/21 06:40 06/21/21 05:17 Labs: Laboratory Results - last 24 hr 06/21/21 16:25: POC Glucose 176 H 06/21/21 21:22: POC Glucose 322 H 06/22/21 06:16: POC Glucose 192 H 06/22/21 10:54: POC Glucose 377 H Micro: Microbiology 06/21/21 11:53 Nasal Secretion SARS-CoV-2 Antigen (Rapid) - Final 06/14/21 13:55 Nasal Secretion SARS-CoV-2 Antigen (Rapid) - Final Physical Exam Narrative AAO3 no pallor no JVD s1s2 clear RLE edema is better LLE edema is worse scrotal edema better Assessment & Plan Assessment/Plan (1) Chronic kidney disease, stage 4 (severe): (2) Acute kidney injury: (3) Diabetic infection of left foot: (4) HTN (hypertension) with goal to be determined: PLAN: - Patient developed nonoliguric hypovolemic PATRICK superimposed on CKD; PATRICK likely prerenal. SCr peaked at 3.68 mg/dL on 05/30/2021. cr down all the way to 2.2 or so. slightly worse again. edema is better, especially scrotal. insists its still uncomfortable. continue lasix for now with lab checks weekly or so. possible dc next week as per him. explained about higher cr. will need f/u after dc
[2021-06-22 14:30] VITALS: BP 130/59; PULSE 71; RESP 20; TEMP 36.2; O2SAT 90
[2021-06-22 16:26] LABS: Bedside Glucose 294 mg/dL (70-110)
[2021-06-22 21:00] VITALS: RESP 15
[2021-06-22] MEDS: Atorvastatin Calcium 80 MG Tablet PO (21:21)
[2021-06-22 21:22] VITALS: RESP 16
[2021-06-22 21:31] LABS: Bedside Glucose 348 mg/dL (70-110)
[2021-06-23] MEDS: Acetaminophen 500 MG Tablet 1000 MG PO ×2 (03:42→13:27)
[2021-06-23] MEDS: oxyCODONE 5 MG Tablet 10 MG PO ×2 (03:43→13:28)
[2021-06-23 06:26] LABS: Bedside Glucose 244 mg/dL (70-110)
[2021-06-23 06:49] LABS: Absolute Lymphocyte Count 2.42 X10^3/uL (0.83-4.51); Absolute Neutrophil Count 3.9 X10^3/uL (2.0-7.7); Basophil# 0.06 X10^3/uL; Basophil% 0.7 % (0-1); Eosinophil# 0.58 X10^3/uL; Eosinophils% 7.2 % (0-5); Hematocrit 41.7 % (40-54); Hemoglobin 13.6 g/dL (13.0-16.5); Lymphocyte # 2.42 X10^3/ul (0.83-4.51); Lymphocyte % 30.1 % (19-41); Mean Corp Hgb Conc 32.6 g/dL (32-36); Mean Corpuscular Hgb 28.6 pg (27.0-32.0); Mean Corpuscular Volume 87.8 fL (80-94); Mean Platelet Vol. 10.6 fl (6.2-12.0); Monocyte# 1.03 X10^3/uL; Monocyte% 12.8 % (0-10); NRBC Flagged by Analyzer 0 % (0-5); Neutrophil # 3.92 X10^3/uL (2.7-7.7); Neutrophil % 48.7 % (47-70); Platelet Count 181 K/mm3 (150-450); RBC Distribution Width CV 14.9 % (11.6-14.6); RBC Distribution Width SD 47.7 fl (35.1-43.9); Red Blood Count 4.75 M/mm3 (4.6-6.2); White Blood Count 8.1 K/mm3 (4.4-11.0)
[2021-06-23] MEDS: Cholecalciferol (VIT D3) 25 MCG TABLET (1,000 UNITS) 125 MCG PO (06:53)
[2021-06-23] MEDS: Doxycycline 100 MG CAPSULE PO ×2 (06:54→17:17)
[2021-06-23] MEDS: Carvedilol 12.5 MG Tablet PO (06:54)
[2021-06-23] MEDS: Ascorbic Acid 500 MG Tablet 1000 MG PO ×3 (06:54→22:17)
[2021-06-23] MEDS: Furosemide 40 MG Tablet PO (06:55)
[2021-06-23] MEDS: Gabapentin 800 MG Tablet PO ×3 (06:55→22:17)
[2021-06-23] MEDS: Amox/Clavulanate 500 MG Tablet PO ×2 (06:56→17:17)
[2021-06-23] MEDS: Ketoconazole Cream 1 APPLIC TOPICAL ×2 (06:56→17:30)
[2021-06-23 06:57] LABS: Anion Gap 4 (5-15); BUN 63 mg/dL (7-18); BUN/Creat Ratio 22.5 RATIO (10-20); Calcium,Total 9.1 mg/dL (8.5-10.1); Chloride 103 mmol/L (98-107); EST Glomerular Filtration Rate 24 mL/min (>60); Est Glom Filt Rate - Afr Amer 29 mL/min (>60); Glucose 250 mg/dL (74-106); Potassium 4.7 mmol/L (3.5-5.1); Sodium Level 135 mmol/L (136-145)
[2021-06-23] MEDS: Insulin Lispro 100 UNIT/ML INSULN.PEN 73 UNIT SC ×3 (07:12→17:26)
--- NOTE | 2021-06-23 07:50 | NURSING ---
Patient refused wound vac change per 1st shift. Changed slot shift supervisor 06/22/21. Patient tolerated well.
--- NOTE | 2021-06-23 07:54 | NURSING ---
Patient refused evening insulin at dinner. Blood sugar elevated at HS. Will continue to monitor.
--- NOTE | 2021-06-23 08:22 | NURSING ---
pt compliant with nursing care tonight. all meds and scheduled insulins were administered as ordered and wound vac was changed at hs.
--- NOTE | 2021-06-23 08:44 | PCM.CONS.U ---
Assessment & Plan Assessment/Plan (1) Scrotal edema: HPI Consult Data Date of Consult: 06/23/21 HPI Narrative HPI Narrative: JUAREZ GOODRICH, is a 65 M who is currently in rehab with multiple medical problems has swollen scrotum on exam both the left and right testicle feel normal at all the only abscess or infection scrotal swelling has gone down from his description and no intervention is necessary at this point call me with questions. [facility] Medical History (Updated 06/23/21 @ 08:[address] Tejas Butt MD) Cancer Chest pain CKD (chronic kidney disease), stage III COPD (chronic obstructive pulmonary disease) Current use of insulin Difficulty swallowing DVT (deep venous thrombosis) Former tobacco use History of kidney cancer Myocardial infarct Obesity CAMACHO (obstructive sleep apnea) Polycythemia secondary to hypoxia Status post debridement of ulcer of heel Type 2 diabetes mellitus with diabetic polyneuropathy Wears hearing aid in both ears Home Medications ascorbic acid (vitamin C) 1,000 mg PO TID 07/11/20 [History Last Taken 05/27/21] aspirin 81 mg PO DAILY@0800 07/11/20 [History Last Taken 05/27/21] atorvastatin 80 mg PO QHS 07/11/20 [History Last Taken 05/27/21] insulin glargine 35 unit SQ BREAKFAST 07/11/20 [History Last Taken 06/01/21 08:00] insulin glargine 40 unit SQ QHS 07/11/20 [History Last Taken 05/31/21 20:40] carvedilol 12.5 mg PO DAILY 08/17/20 [History Last Taken 06/01/21 08:10] cholecalciferol (vitamin D3) 125 mcg PO DAILY 05/28/21 [History Last Taken 05/27/21] melatonin 3 mg PO QHS PRN PRN #0 tab 06/01/21 [Rx Last Taken Unknown] acetaminophen 1,000 mg PO Q6H PRN PRN #0 tab 06/19/21 [Rx Last Taken Unknown] amoxicillin-pot clavulanate 500 mg PO BID 10 Days #20 tab 06/19/21 [Rx Last Taken Unknown] aauxn-glae-VhOTH-rlrphw-dh-bnn [Corwin (with collagen)] 1 packet PO BIDCM 30 Days #60 ea 06/19/21 [Rx Last Taken Unknown] doxycycline monohydrate 100 mg PO BID 10 Days #20 cap 06/19/21 [Rx Last Taken Unknown] gabapentin 800 mg PO TID 30 Days #90 tab 06/19/21 [Rx Last Taken Unknown] oxycodone 10 mg PO Q6H PRN PRN 3 Days #24 tab 06/19/21 [Rx Last Taken Unknown] zinc sulfate 220 mg PO DAILY #0 cap 06/19/21 [Rx Last Taken Unknown] Allergy/AdvReac Type Severity Reaction Status Date / Time codeine AdvReac Nausea Verified 05/28/21 14:35 promethazine [From Phenergan] AdvReac Nausea Verified 05/28/21 14:35 Family History Father CVA (cerebral vascular accident) Myocardial infarction Mother Dementia Surgical History History of appendectomy History of coronary artery stent placement History of surgery on arm Hx of partial nephrectomy Previous back surgery S/P appendectomy Social History household members: none Smoking Status: Former smoker quit date: 05/19/15 Tobacco: How many years used: 50 how long ago did patient quit smoking: Smoked ~1/2 ppd x 50 years until quit. alcohol intake: never substance use type: does not use Lab / Micro Data Result Diagrams: 06/23/21 06:25 06/23/21 06:25 Labs: Laboratory Results - last 24 hr 06/22/21 10:54: POC Glucose 377 H 06/22/21 16:12: POC Glucose 294 H 06/22/21 21:23: POC Glucose 348 H 06/23/21 06:22: POC Glucose 244 H 06/23/21 06:25: WBC 8.1, RBC 4.75, Hgb 13.6, Hct 41.7, MCV 87.8, MCH 28.6, MCHC 32.6, RDW Std Deviation 47.7 H, RDW Coeff of Darrell 14.9 H, Plt Count 181, MPV 10.6, Immature Gran % (Auto) 0.500, Neut % (Auto) 48.7, Lymph % (Auto) 30.1, Shannon % (Auto) 12.8 H, Eos % (Auto) 7.2 H, Baso % (Auto) 0.7, Absolute Neuts (auto) 3.9, Absolute Lymphs (auto) 2.42, Nucleated RBC % 0 06/23/21 06:25: Sodium 135 L, Potassium 4.7, Chloride 103, Carbon Dioxide 28.0, Anion Gap 4 L, BUN 63 H, Creatinine 2.80 H, Estim Creat Clear Calc 30.60, Est GFR (MDRD) Af Amer 29 L, Est GFR (MDRD) Non-Af 24 L, BUN/Creatinine Ratio 22.5 H, Glucose 250 H, Calcium 9.1
--- NOTE | 2021-06-23 08:45 | NURSING ---
Dr Gipson in to see pt this AM
[2021-06-23] MEDS: Potassium Chloride Oral Tablet 20 MEQ PO (08:52)
[2021-06-23] MEDS: Juven (unflavored) Packet 1 PACKET PO ×2 (08:52→17:16)
[2021-06-23] MEDS: Aspirin 81 MG TAB.CHEW PO (08:52)
[2021-06-23 10:56] LABS: Bedside Glucose 455 mg/dL (70-110)
[2021-06-23 11:20] VITALS: PULSE 62; RESP 18; O2SAT 92
--- NOTE | 2021-06-23 11:28 | NURSING ---
dr martinez updated on blood sugar 455, new order to administer scheduled 73 units but recheck sugar in one hour. pt refused to take humalog and lantus last evening but did not say why according to CALCULUS TEACHER report.
[2021-06-23 12:41] LABS: Bedside Glucose 445 mg/dL (70-110)
[2021-06-23 16:00] VITALS: BP 118/69; PULSE 61; RESP 18; TEMP 36.7; O2SAT 95
[2021-06-23 16:16] LABS: Bedside Glucose 244 mg/dL (70-110)
[2021-06-23 21:21] LABS: Bedside Glucose 318 mg/dL (70-110)
[2021-06-23] MEDS: Atorvastatin Calcium 80 MG Tablet PO (22:17)
[2021-06-24] MEDS: Cholecalciferol (VIT D3) 25 MCG TABLET (1,000 UNITS) 125 MCG PO (06:24)
[2021-06-24] MEDS: Furosemide 40 MG Tablet PO (06:27)
[2021-06-24] MEDS: Carvedilol 12.5 MG Tablet PO (06:27)
[2021-06-24] MEDS: Ascorbic Acid 500 MG Tablet 1000 MG PO ×3 (06:28→22:15)
[2021-06-24] MEDS: Amox/Clavulanate 500 MG Tablet PO ×2 (06:28→17:20)
[2021-06-24] MEDS: Gabapentin 800 MG Tablet PO ×3 (06:28→22:15)
[2021-06-24] MEDS: Doxycycline 100 MG CAPSULE PO ×2 (06:29→17:20)
[2021-06-24 06:40] LABS: Bedside Glucose 209 mg/dL (70-110)
[2021-06-24] MEDS: oxyCODONE 5 MG Tablet 10 MG PO ×3 (06:40→22:31)
[2021-06-24] MEDS: Acetaminophen 500 MG Tablet 1000 MG PO ×3 (06:40→22:31)
--- NOTE | 2021-06-24 06:48 | NURSING ---
Upon entering pt's room for am med pass, BiPAP unit turned off and mask not in use.
[2021-06-24] MEDS: Insulin Lispro 100 UNIT/ML INSULN.PEN 73 UNIT SC ×3 (07:53→17:20)
--- NOTE | 2021-06-24 08:02 | NURSING ---
Nizoral cream not applied this am as pt requests cream be applied after bathing.
[2021-06-24] MEDS: Aspirin 81 MG TAB.CHEW PO (08:26)
[2021-06-24] MEDS: Potassium Chloride Oral Tablet 20 MEQ PO (08:27)
[2021-06-24] MEDS: Juven (unflavored) Packet 1 PACKET PO ×2 (08:27→17:20)
--- NOTE | 2021-06-24 08:36 | NURSING ---
PT COMPLAINED OF NECK PAIN,12/26. PT STATED HE HAD SURGERY YEARS AGO ON IT AND WAS HURTING TODAY. ASKED PT IF HE WOULD LIKE TO TRY A K-PAD. PT STATED YES. RN AWARE
--- NOTE | 2021-06-24 09:37 | NURSING ---
PT STATED TO THIS NURSE THAT [facility] CALLED AND SAID HIS PRESCRIPTIONS WERE READY AND PT TOLD THEM HE COULDNT GET THEM TO NEXT WEEKEND AND [facility] STATED TO PT THAT THEY COULDNT HOLD THEM THAT LONG AND WOULD HAVE TO REDO THE PRESCRIPTIONS DAY OR TWO BEFORE DISCHARGE. ASKED PT IF HIS DAUGHTER COULD PICK THEM UP FOR HIM,PT STATED NO NOT TILL THE DAY I LEAVE. REPORTED TO RN.
[2021-06-24] MEDS: Ketoconazole Cream 1 APPLIC TOPICAL ×2 (10:33→17:24)
[2021-06-24 10:51] LABS: Bedside Glucose 368 mg/dL (70-110)
[2021-06-24 14:23] VITALS: BP 125/54; PULSE 73; RESP 20; TEMP 36.6; O2SAT 91
[2021-06-24 16:26] LABS: Bedside Glucose 284 mg/dL (70-110)
[2021-06-24 21:35] LABS: Bedside Glucose 362 mg/dL (70-110)
[2021-06-24] MEDS: Atorvastatin Calcium 80 MG Tablet PO (22:15)
[2021-06-24 22:19] VITALS: PULSE 79; RESP 16; O2SAT 91
[2021-06-25 06:31] LABS: Bedside Glucose 257 mg/dL (70-110)
[2021-06-25] MEDS: oxyCODONE 5 MG Tablet 10 MG PO ×3 (06:38→20:21)
[2021-06-25] MEDS: Acetaminophen 500 MG Tablet 1000 MG PO ×3 (06:38→20:20)
[2021-06-25] MEDS: Carvedilol 12.5 MG Tablet PO (06:39)
[2021-06-25] MEDS: Cholecalciferol (VIT D3) 25 MCG TABLET (1,000 UNITS) 125 MCG PO (06:39)
[2021-06-25] MEDS: Furosemide 40 MG Tablet PO (06:39)
[2021-06-25] MEDS: Amox/Clavulanate 500 MG Tablet PO ×2 (06:39→17:50)
[2021-06-25] MEDS: Doxycycline 100 MG CAPSULE PO ×2 (06:39→17:51)
[2021-06-25] MEDS: Gabapentin 800 MG Tablet PO ×3 (06:39→20:21)
[2021-06-25] MEDS: Ascorbic Acid 500 MG Tablet 1000 MG PO ×3 (06:39→20:21)
[2021-06-25] MEDS: Menthol/Lanolin/Calamine/Znox 113 GM Tube 1 APPLIC TOPICAL ×2 (06:42→17:53)
--- NOTE | 2021-06-25 08:00 | NURSING ---
Pt c/o neck pain over the last couple days, requesting images and something for pain. Dr. Peng on floor and updated, N.O. IM toradol 60mg x1 dose, IM norflex 60mg x1 dose, and xray of cervical spine.
[2021-06-25] MEDS: Aspirin 81 MG TAB.CHEW PO (08:11)
[2021-06-25] MEDS: Juven (unflavored) Packet 1 PACKET PO ×2 (08:11→17:50)
[2021-06-25] MEDS: Potassium Chloride Oral Tablet 20 MEQ PO (08:11)
[2021-06-25] MEDS: Insulin Lispro 100 UNIT/ML INSULN.PEN 73 UNIT SC ×3 (08:14→17:58)
[2021-06-25] MEDS: Ketoconazole Cream 1 APPLIC TOPICAL ×2 (08:15→18:05)
--- NOTE | 2021-06-25 08:27 | RAD_ITS ---
STUDY: X-RAY - CERVICAL SPINE REASON FOR EXAM: Male, 65 years old. Pain TECHNIQUE: 3 view(s) of the cervical spine were obtained. COMPARISON: None FINDINGS: Normal anterior atlantoaxial articulation. Normal odontoid process. There is straightening of the normal cervical lordosis. Patient is status post anterior fusion and prosthetic disc placement at the C4-C5 and C5-C6 levels. There is multi-level degenerative disc disease with multilevel disc space narrowing. Calcification of the posterior nuchal ligament. The soft tissue structures are unremarkable. RAD/Cerv Spine 2 or 3 Views IMPRESSION: Status post anterior fusion at the C4-C5 and C5-6 levels with prosthetic disc material. Straightening of the normal cervical lordosis. Electronically Signed: James Bell MD at 15:43 EST ,
[2021-06-25] MEDS: Ketorolac 60 MG/2 ML Vial IM (09:36)
[2021-06-25] MEDS: Orphenadrine 60 MG/2 ML Ampul IM (09:38)
[2021-06-25 11:00] LABS: Bedside Glucose 264 mg/dL (70-110)
--- NOTE | 2021-06-25 13:54 | NURSING ---
Pt requesting shower this friday before discharge. Dr. Chapman's office called to ask if pt is allowed to shower, employee communications coordinator stated she would ask Dr. Chapman and would call TCU and let us know.
[2021-06-25 15:01] VITALS: BP 137/59; PULSE 82; RESP 18; TEMP 36.3; O2SAT 97
--- NOTE | 2021-06-25 15:07 | NURSING ---
Per Dr. Chapman's office, pt may shower prior to new wound vac application. Do not saturate.
[2021-06-25 16:15] LABS: Bedside Glucose 267 mg/dL (70-110)
[2021-06-25] MEDS: Atorvastatin Calcium 80 MG Tablet PO (20:21)
[2021-06-25 21:21] VITALS: PULSE 77; RESP 18; O2SAT 93
[2021-06-25 21:31] LABS: Bedside Glucose 352 mg/dL (70-110)
[2021-06-26 06:26] LABS: Bedside Glucose 273 mg/dL (70-110)
[2021-06-26] MEDS: Cholecalciferol (VIT D3) 25 MCG TABLET (1,000 UNITS) 125 MCG PO (06:35)
[2021-06-26] MEDS: Furosemide 40 MG Tablet PO (06:36)
[2021-06-26] MEDS: Gabapentin 800 MG Tablet PO ×3 (06:36→21:21)
[2021-06-26] MEDS: Carvedilol 12.5 MG Tablet PO (06:36)
[2021-06-26] MEDS: Ascorbic Acid 500 MG Tablet 1000 MG PO ×3 (06:36→21:22)
[2021-06-26] MEDS: Doxycycline 100 MG CAPSULE PO ×2 (06:36→17:39)
[2021-06-26] MEDS: Amox/Clavulanate 500 MG Tablet PO ×2 (06:36→17:39)
[2021-06-26] MEDS: oxyCODONE 5 MG Tablet 10 MG PO ×3 (06:39→21:28)
[2021-06-26] MEDS: Acetaminophen 500 MG Tablet 1000 MG PO ×3 (06:39→21:28)
[2021-06-26] MEDS: Menthol/Lanolin/Calamine/Znox 113 GM Tube 1 APPLIC TOPICAL ×2 (06:42→21:20)
[2021-06-26] MEDS: Potassium Chloride Oral Tablet 20 MEQ PO (08:12)
[2021-06-26] MEDS: Juven (unflavored) Packet 1 PACKET PO ×2 (08:12→17:38)
[2021-06-26] MEDS: Aspirin 81 MG TAB.CHEW PO (08:13)
[2021-06-26] MEDS: Insulin Lispro 100 UNIT/ML INSULN.PEN 80 UNIT SC ×3 (08:15→17:44)
[2021-06-26] MEDS: Ketoconazole Cream 1 APPLIC TOPICAL ×2 (10:36→21:28)
[2021-06-26 10:41] LABS: Bedside Glucose 345 mg/dL (70-110)
[2021-06-26 13:28] VITALS: BP 133/66; PULSE 77; RESP 18; TEMP 36.7; O2SAT 94
[2021-06-26 16:36] LABS: Bedside Glucose 317 mg/dL (70-110)
[2021-06-26] MEDS: Atorvastatin Calcium 80 MG Tablet PO (21:21)
[2021-06-26 21:45] LABS: Bedside Glucose 358 mg/dL (70-110)
[2021-06-27 06:31] LABS: Bedside Glucose 256 mg/dL (70-110)
[2021-06-27] MEDS: Ascorbic Acid 500 MG Tablet 1000 MG PO ×3 (06:51→20:55)
[2021-06-27] MEDS: Gabapentin 800 MG Tablet PO ×3 (06:51→20:55)
[2021-06-27] MEDS: Acetaminophen 500 MG Tablet 1000 MG PO ×3 (06:52→23:55)
[2021-06-27] MEDS: Cholecalciferol (VIT D3) 25 MCG TABLET (1,000 UNITS) 125 MCG PO (06:52)
[2021-06-27] MEDS: oxyCODONE 5 MG Tablet 10 MG PO ×3 (06:52→23:55)
[2021-06-27] MEDS: Carvedilol 12.5 MG Tablet PO (06:53)
[2021-06-27] MEDS: Doxycycline 100 MG CAPSULE PO ×2 (06:53→16:57)
[2021-06-27] MEDS: Amox/Clavulanate 500 MG Tablet PO ×2 (06:53→16:57)
[2021-06-27] MEDS: Menthol/Lanolin/Calamine/Znox 113 GM Tube 1 APPLIC TOPICAL ×2 (06:54→16:57)
[2021-06-27] MEDS: Furosemide 40 MG Tablet PO (06:59)
[2021-06-27] MEDS: Insulin Lispro 100 UNIT/ML INSULN.PEN 80 UNIT SC ×3 (08:39→17:00)
[2021-06-27] MEDS: Ketoconazole Cream 1 APPLIC TOPICAL ×2 (08:41→20:56)
[2021-06-27] MEDS: Aspirin 81 MG TAB.CHEW PO (08:45)
[2021-06-27] MEDS: Juven (unflavored) Packet 1 PACKET PO ×2 (08:45→16:57)
[2021-06-27] MEDS: Potassium Chloride Oral Tablet 20 MEQ PO (08:45)
[2021-06-27 10:56] LABS: Bedside Glucose 330 mg/dL (70-110)
--- NOTE | 2021-06-27 11:34 | PN_ITS ---
Subjective Subjective 65-year-old male seen bedside approximately 3-1/2 weeks status post incision and drainage for left foot gas gangrene. Patient denies any pain at rest. Patient denies any fever, chills, nausea, vomiting, chest pain, calf pain, shortness of breath. Patient compliant with postoperative care including remaining nonw eightbearing and keeping dressings clean dry and intact. No other complaints. Objective Data Objective Data Vital Signs: Vital Signs Temp Pulse Resp BP Pulse Ox 98.1 F 77 18 133/66 H 94 06/26/21 13:28 06/26/21 13:28 06/26/21 13:28 06/26/21 13:28 06/26/21 13:28 Oxygen Delivery Method Room Air Weight: 129.546 kg Body Mass Index (BMI) 34.9 Intake & Output: Intake and Output for Last 24 Hours 06/25/21 06/26/21 06/27/21 23:59 23:59 23:59 Intake Total 1200 / 1200 1920 / 1920 120 / 120 Output Total 900 / 900 Balance 300 / 300 1920 / 1920 120 / 120 Lab / Micro Data Result Diagrams: 06/23/21 06:25 06/23/21 06:25 Labs: Laboratory Results - last 24 hr 06/26/21 16:28: POC Glucose 317 H 06/26/21 21:39: POC Glucose 358 H 06/27/21 06:23: POC Glucose 256 H 06/27/21 10:49: POC Glucose 330 H Micro: Microbiology 06/21/21 11:53 Nasal Secretion SARS-CoV-2 Antigen (Rapid) - Final 06/14/21 13:55 Nasal Secretion SARS-CoV-2 Antigen (Rapid) - Final Physical Exam Narrative Const alert and no apparent distress General Appearance: cooperative and comfortable Extremity There is diffuse left foot/ankle and leg swelling. Left foot s/p debridement to arch and heel, tissues are healthy and viable, granular, down to fascia layer, there is no streaking or odor, compartments remain soft to palpate, there is no fluctuance or bogginess on palpation, no drainage, no visible abscess, no cellulitis, no blistering present. Hematogenous drainage only upon debridement. General Extremity: Negative for clubbing or cyanosis to digits. Predebridement left arch 7.8 x 4.8 x 0.5 cm and left heel 1.8 x 1.6 x 0.4 cm. Post debridement left arch 8.0 x 5.0 x 0.6 cm and left heel 2.0 x 1.8 x 0.6 cm Vasc normal capillary refill, no acute ischemic skin changes noted, normal temperature bilateral. 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 Infection: Clinically doing well. He is afebrile and his vital signs are stable. Completed IV antibiotics, he is continuing doxy and augmentin, stop date 07/10/21. Dressing: Continue wound vac -continue 125mmHg continuous - change q 48-72 hours. This was reapplied this afternoon. Debridement: Performed 06/27/2021 subcutaneous excisional debridement was performed after verbal consent with a 5 mm curette. Pressure was applied to maintain hemostasis. This was performed to remove devitalized subcutaneous tissue, fibrous tissue, biofilm and slough. He tolerated this well. Anesthetic was not required due to his neuropathic status. This was performed to the left heel and arch wounds. Today 06-27-21 wounds continue to demonstrate no localized signs of infection with healthy granular tissue in the wound bed. Offloading: To maintain a strict nonweightbearing status to left lower extremity and use assistive device. To work with PT and OT. Vascular: Arterial studies were reviewed. Showing likely adequate perfusion for healing. Referral to Dr. Campos for potential venous and arterial intervention was provided. Edema: Kevin wrap, elevation, and dietary salt restrictions are recommended. Venous doppler ordered to rule out DVT. Pain: controlled with pain medication prn morphine and oxycodone. Host factors: His comorbidities are noted and he is at risk for continued delayed or nonhealing. Medical management is appreciated. Smoking and tobacco cessation is recommended. To continue nutritional supplementation to optimize the healing process. Discharge planning: in Transitional care unit at this time. He may benefit from extended skilled facility care during his entire wound healing process. Current plan is for home health care w/ f/u in wound care center. I answered all of his questions. The podiatry team will continue to follow him closely while in house weekly. Please do not hesitate to call if you have any questions. Anay Alaniz.[facility] [phone]
--- NOTE | 2021-06-27 12:04 | WOUNDNOTE ---
wound photo: left plantar foot
--- NOTE | 2021-06-27 12:04 | WOUNDNOTE ---
wound photo: left heel
[2021-06-27 14:18] VITALS: BP 125/72; PULSE 74; RESP 14; TEMP 36.7; O2SAT 92
[2021-06-27 16:06] LABS: Bedside Glucose 240 mg/dL (70-110)
[2021-06-27] MEDS: Atorvastatin Calcium 80 MG Tablet PO (20:54)
[2021-06-27 21:36] LABS: Bedside Glucose 382 mg/dL (70-110)
[2021-06-28] MEDS: Gabapentin 800 MG Tablet PO ×3 (06:09→22:24)
[2021-06-28] MEDS: Ascorbic Acid 500 MG Tablet 1000 MG PO ×3 (06:09→22:23)
[2021-06-28] MEDS: Furosemide 40 MG Tablet PO (06:09)
[2021-06-28] MEDS: Carvedilol 12.5 MG Tablet PO (06:09)
[2021-06-28] MEDS: Cholecalciferol (VIT D3) 25 MCG TABLET (1,000 UNITS) 125 MCG PO (06:09)
[2021-06-28] MEDS: Doxycycline 100 MG CAPSULE PO ×2 (06:11→17:27)
[2021-06-28] MEDS: Amox/Clavulanate 500 MG Tablet PO ×2 (06:11→17:27)
[2021-06-28] MEDS: Acetaminophen 500 MG Tablet 1000 MG PO ×3 (06:20→22:24)
[2021-06-28] MEDS: oxyCODONE 5 MG Tablet 10 MG PO ×3 (06:20→22:24)
[2021-06-28 06:31] LABS: Bedside Glucose 223 mg/dL (70-110)
[2021-06-28] MEDS: Insulin Lispro 100 UNIT/ML INSULN.PEN 80 UNIT SC ×3 (08:07→17:33)
[2021-06-28] MEDS: Potassium Chloride Oral Tablet 20 MEQ PO (08:12)
[2021-06-28] MEDS: Juven (unflavored) Packet 1 PACKET PO ×2 (08:12→17:27)
[2021-06-28] MEDS: Aspirin 81 MG TAB.CHEW PO (08:13)
[2021-06-28] MEDS: Ketoconazole Cream 1 APPLIC TOPICAL (10:40)
[2021-06-28 10:50] LABS: Bedside Glucose 244 mg/dL (70-110)
--- NOTE | 2021-06-28 11:21 | NURSING ---
PT COMPLAINING OF NECK PAIN,NOT DUE FOR ANY PAIN MEDS AT THIS TIME. THIS NURSE APPLYING CREAM TO TESTICLES PER ORDER AND PT ASKS THIS NURSE WHY SHE DOUBLED GLOVE AND IF THIS NURSE COULD APPLY CREAM WITH OUT GLOVES. THIS NURSE STATED NO AND EDUCATED PT ON WHY WE WEAR GLOVES. WENT TO REPLACE PT WRIST BAND AND ASKED PT FOR NAME AND DATE OF AND PT STATED I DONT REMEMBER. THIS NURSE ASKED PT OTHER QUESTIONS AND PT ANSWERED JUST FINE. REPORTED TO RN.
--- NOTE | 2021-06-28 13:32 | CASEMGMT ---
Social Work Followed up with pt to ensure he is ready for DC. Pt expressed some concern with preparing meals, housing cleaning and getting into his bathroom since he is NWB. Provided home delivered meals resources. Encouraged to research home cleaning services online and contact for his desired cleaning schedule. Explained [facility] therapy will be able to assist with getting in and out of bathroom, and the tools to get around his house safely while maintaining his WBS. Pt appreciative of resources. Contacted [facility] to ensure the knee sling is being held for dtr to brain picker prior to DC 06/29 - confirmed. Corrine Palafox ,[employer] NE[employer]ICING [employer]OCIATE
[2021-06-28 13:36] VITALS: BP 135/69; PULSE 81; RESP 20; TEMP 36.6; O2SAT 94
--- NOTE | 2021-06-28 14:41 | MDS.RN ---
Pain assessment completed on this day for the DELVIS PONCE 06/30/21
[2021-06-28 16:01] LABS: Bedside Glucose 235 mg/dL (70-110)
[2021-06-28 21:36] LABS: Bedside Glucose 381 mg/dL (70-110)
[2021-06-28] MEDS: Atorvastatin Calcium 80 MG Tablet PO (22:23)
[2021-06-29 05:56] LABS: Bedside Glucose 287 mg/dL (70-110)
[2021-06-29] MEDS: Acetaminophen 500 MG Tablet 1000 MG PO (06:00)
[2021-06-29] MEDS: oxyCODONE 5 MG Tablet 10 MG PO (06:00)
[2021-06-29] MEDS: Carvedilol 12.5 MG Tablet PO (06:01)
[2021-06-29] MEDS: Furosemide 40 MG Tablet PO (06:01)
[2021-06-29] MEDS: Ascorbic Acid 500 MG Tablet 1000 MG PO (06:02)
[2021-06-29] MEDS: Doxycycline 100 MG CAPSULE PO (06:02)
[2021-06-29] MEDS: Amox/Clavulanate 500 MG Tablet PO (06:02)
[2021-06-29] MEDS: Gabapentin 800 MG Tablet PO (06:02)
[2021-06-29] MEDS: Cholecalciferol (VIT D3) 25 MCG TABLET (1,000 UNITS) 125 MCG PO (06:02)
--- NOTE | 2021-06-29 06:12 | NURSING ---
Addendum entered by Zulema Child 06/29/21 07:34: Updated Dr. Peng of EKG results and patient symptoms about 0700. Verbal order for nitro and cardiac enzymes, orders placed. Addendum entered by Mirta Flood 06/29/21 07:25: Respiratory up, EKG shows septal infarct and breathing tx was given. Reassess and pt says chest pain slightly better but feels like something isn't right, feels like hes hot. Temp is 100.1 orally, he had taken oxyir and tylenol about an hr ago. O2 at 85% 2L nc was applied. Nitro and cardiac enzymes ordered. Original Note: pt called out asking to see nurse. upon entering pt was sitting on side of bed hunched over breathing heavy, pt states he has high chest pain that hurts more with inhalation, some with exhalation and moving or laying in bed stating he, feels like I'm choking. and difficulty with breathing. Rates pain a 9 out of 10. Pt also has been having a dry cough. Respirations elevated, anxious, o2 at 90% room air, BP 114/71 HR 96. Tremor noted in right hand. BS 287. RN aware, respiratory called for EKG and breathing tx.
[2021-06-29 07:04] VITALS: PULSE 82; RESP 21
[2021-06-29] MEDS: Albuterol 2.5 MG/3 ML VIAL.NEB. INHALATION (07:29)
[2021-06-29 07:48] VITALS: BP 110/57; PULSE 79
[2021-06-29] MEDS: Nitroglycerin (INPATIENT USE) 0.4 MG TAB.SUBL SL (07:48)
[2021-06-29 07:53] VITALS: BP 95/45; PULSE 81
[2021-06-29 07:56] VITALS: BP 67/41; PULSE 80
[2021-06-29 08:00] VITALS: BP 80/41; PULSE 79
[2021-06-29 08:00] LABS: Absolute Lymphocyte Count 1.94 X10^3/uL (0.83-4.51); Absolute Neutrophil Count 9.7 X10^3/uL (2.0-7.7); Basophil# 0.07 X10^3/uL; Basophil% 0.5 % (0-1); Eosinophil# 0.22 X10^3/uL; Eosinophils% 1.6 % (0-5); Hemoglobin 14.6 g/dL (13.0-16.5); Lymphocyte # 1.94 X10^3/ul (0.83-4.51); Lymphocyte % 14.1 % (19-41); Mean Corp Hgb Conc 33.2 g/dL (32-36); Mean Corpuscular Hgb 28.9 pg (27.0-32.0); Mean Corpuscular Volume 87.1 fL (80-94); Mean Platelet Vol. 10.8 fl (6.2-12.0); Monocyte# 1.72 X10^3/uL; Monocyte% 12.5 % (0-10); NRBC Flagged by Analyzer 0 % (0-5); Neutrophil # 9.72 X10^3/uL (2.7-7.7); Neutrophil % 70.4 % (47-70); POSITIVE DIFFERENTIAL YES; Platelet Count 205 K/mm3 (150-450); RBC Distribution Width CV 15.2 % (11.6-14.6); Red Blood Count 5.05 M/mm3 (4.6-6.2); White Blood Count 13.8 K/mm3 (4.4-11.0)
[2021-06-29 08:03] LABS: Differential Indicated SCAN CRITERIA MET
--- NOTE | 2021-06-29 08:03 | NURSING ---
Report called to Lis[facility] in ED, pt being taken to ED
--- NOTE | 2021-06-29 08:18 | NURSING ---
Addendum entered by Jazmine Nguyen 06/29/21 08:29: Lab called and reported critical Potassium 6.2 Addendum entered by Jazmine Nguyen 06/29/21 08:21: Daughter called and updated on patient being transferred to ED. Original Note: Patient given x1 dose of Mark. B/P dropped from 110/57 down to 67/41. Patient diaphoretic, rose-kay in color. Patient states I feel really bad, what is going on? Dr. Peng updated. New order to send patient to ER for evaluation.
[2021-06-29 08:21] LABS: Bedside Glucose 282 mg/dL (70-110)
[2021-06-29 08:25] LABS: Anion Gap 5 (5-15); BUN 75 mg/dL (7-18); BUN/Creat Ratio 26.3 RATIO (10-20); Calcium,Total 9.1 mg/dL (8.5-10.1); Chloride 100 mmol/L (98-107); Creatinine, Serum 2.85 mg/dL (0.70-1.30); EST Glomerular Filtration Rate 24 mL/min (>60); Est Glom Filt Rate - Afr Amer 29 mL/min (>60); Estimated Creatinine Clearance 30.06 ml/min; Glucose 259 mg/dL (74-106); Potassium 6.2 mmol/L (3.5-5.1); Sodium Level 131 mmol/L (136-145); Troponin-I HS 27 pg/mL (3.0-78.0)
[2021-07-02 09:43] LABS: Pathologist Review Reviewed
== END 2021-06-29 08:00 | disposition short-term general hospital (02) | DRG 623 ==
PROVIDERS: Nurse Practitioner Adult Health; Admitting Provider Family Medicine Geriatric Medicine; Visit Provider Family Medicine Geriatric Medicine
DX: E11.621 Type 2 diabetes mellitus with foot ulcer (principal); L03.116 Cellulitis of left lower limb; L97.423 Non-pressure chronic ulcer of left heel and midfoot with necrosis of muscle; L02.612 Cutaneous abscess of left foot; E11.22 Type 2 diabetes mellitus with diabetic chronic kidney disease; B95.2 Enterococcus as the cause of diseases classified elsewhere; B95.62 Methicillin resistant Staphylococcus aureus infection as the cause of diseases classified elsewhere; E11.42 Type 2 diabetes mellitus with diabetic polyneuropathy; N18.4 Chronic kidney disease, stage 4 (severe); J44.9 Chronic obstructive pulmonary disease, unspecified; Z79.4 Long term (current) use of insulin; B96.4 Proteus (mirabilis) (morganii) as the cause of diseases classified elsewhere; E78.5 Hyperlipidemia, unspecified; I12.9 Hypertensive chronic kidney disease with stage 1 through stage 4 chronic kidney disease, or unspecified chronic kidney disease; E55.9 Vitamin D deficiency, unspecified; G47.33 Obstructive sleep apnea (adult) (pediatric); I25.2 Old myocardial infarction; E66.9 Obesity, unspecified; Z23 Encounter for immunization; Z79.82 Long term (current) use of aspirin; Z87.891 Personal history of nicotine dependence; Z86.718 Personal history of other venous thrombosis and embolism; Z68.35 Body mass index [BMI] 35.0-35.9, adult; Z79.899 Other long term (current) drug therapy; Z68.34 Body mass index [BMI] 34.0-34.9, adult
CPT/HCPCS: 36415; 72040; 73610; 73630; 80048; 80202; 82962; 84484; 85025; 87426; 93005; 94640; 97110; 97116; 97162; 97166; 97530; 97535; 97802; G0009; J7050; 90670; A4216; J0295

== ENCOUNTER 2021-06-29 08:14 | Inpatient (IN) | payer MEDICARE, BC, SELFPAY ==
[2021-06-29] VITALS (13 sets, daily range): BP systolic 98–141; BP diastolic 58–72; PULSE 70–89; RESP 16–18; TEMP 36.4–37.2; O2SAT 90–94; BMI 37.6; BMI 36.9
--- NOTE | 2021-06-29 08:00 | RAD_ITS ---
STUDY: X-RAY CHEST REASON FOR EXAM: Male, 65 years old. Chest pain TECHNIQUE: Single AP portable view of the chest. COMPARISON: Comparison is made with prior study dated 05/28/2021. FINDINGS: EKG electrodes are seen. Stable mild increased markings at the left lung base suggestive of underlying atelectasis and/or scarring. There is no demonstrated pleural abnormality. There is moderate cardiac enlargement. Normal mediastinum and cinthia. Normal visualized pulmonary arteries. There is atherosclerotic calcification of the aortic arch with tortuosity. Normal visualized thoracic spine. Normal visualized ribs, clavicles, and shoulders. There is no demonstrated abnormality of the visualized soft tissue structures of the upper abdomen. RAD/Chest 1 View (Portable) IMPRESSION: Mild increased markings at the lung bases. There has been no change. Electronically Signed: James Bell MD at 10:08 [facility] ,
--- NOTE | 2021-06-29 08:22 | EKG12_ITS ---
Test Reason : CP Blood Pressure : / mmHG Vent. Rate : 077 BPM Atrial Rate : 077 BPM P-R Int : 336 ms QRS Dur : 112 ms QT Int : 378 ms P-R-T Axes : 007 -62 075 degrees QTc Int : 427 ms Sinus rhythm with 1st degree A-V block Left axis deviation Septal infarct , age undetermined Inferior infarct , age undetermined Abnormal ECG Confirmed by ELLA SANCHEZ, GERSON ([id number]), deputy editor in chief ALAN HERRERA ([id number]) on 07/03/2021 6:56:53 AM Referred By: DAWIT Confirmed By:GERSON JARAMILLO MD
[2021-06-29] MEDS: 0.9% Normal Saline 1,000 ML 999 ML IV (08:30)
--- NOTE | 2021-06-29 08:36 | EKG12_ITS ---
Test Reason : CP Blood Pressure : / mmHG Vent. Rate : 092 BPM Atrial Rate : 092 BPM P-R Int : 310 ms QRS Dur : 106 ms QT Int : 326 ms P-R-T Axes : -10 -71 071 degrees QTc Int : 403 ms Sinus rhythm with 1st degree A-V block Left axis deviation Septal infarct , age undetermined Abnormal ECG Confirmed by ELLA SANCHEZ, GERSON ([id number]), electronic news gathering editor ALAN HERRERA ([id number]) on 07/02/2021 9:39:04 AM Referred By: ANGELA Confirmed By:GERSON JARAMILLO MD
--- NOTE | 2021-06-29 08:38 | EDS_ITS ---
HPI History of Present Illness Chief Complaint: Chest Pain Narrative Narrative: Patient with past medical history of diabetes, left lower leg infection presents from the TCU with chest pain that has had since yesterday, over 12 hours ago. He states that sometimes it is worse when he breathes in but not when he breathes out. Dull across his chest. Sometimes it is dull and achy, other times sharp and stabbing. TCU administered nitroglycerin because he was having chest pain and perform labs, and sent him to the ED for further evaluation. Patient denies any exacerbating or alleviating factors other than the pleuritic chest pain that has been relatively constant since yesterday. PFSH [facility] Medical History Cancer Chest pain CKD (chronic kidney disease), stage III COPD (chronic obstructive pulmonary disease) Current use of insulin Difficulty swallowing DVT (deep venous thrombosis) Former tobacco use History of kidney cancer Myocardial infarct Obesity CAMACHO (obstructive sleep apnea) Polycythemia secondary to hypoxia Status post debridement of ulcer of heel Type 2 diabetes mellitus with diabetic polyneuropathy Wears hearing aid in both ears Home Medications ascorbic acid (vitamin C) 1,000 mg PO TID 07/11/20 [History Last Taken 05/27/21] aspirin 81 mg PO DAILY@0800 07/11/20 [History Last Taken 05/27/21] atorvastatin 80 mg PO QHS 07/11/20 [History Last Taken 05/27/21] carvedilol 12.5 mg PO DAILY 08/17/20 [History Last Taken 06/01/21 08:10] cholecalciferol (vitamin D3) 125 mcg PO DAILY 05/28/21 [History Last Taken 05/27/21] melatonin 3 mg PO QHS PRN PRN #0 tab 06/01/21 [Rx Last Taken Unknown] acetaminophen 1,000 mg PO Q6H PRN PRN #0 tab 06/19/21 [Rx Last Taken Unknown] amoxicillin-pot clavulanate 500 mg PO BID 10 Days #20 tab 06/19/21 [Rx Last Taken Unknown] pytlm-fldo-OgIVP-dyvnzf-kc-nsx [Corwin (with collagen)] 1 packet PO BIDCM 30 Days #60 ea 06/19/21 [Rx Last Taken Unknown] doxycycline monohydrate 100 mg PO BID 10 Days #20 cap 06/19/21 [Rx Last Taken Unknown] gabapentin 800 mg PO TID 30 Days #90 tab 06/19/21 [Rx Last Taken Unknown] zinc sulfate 220 mg PO DAILY #0 cap 06/19/21 [Rx Last Taken Unknown] insulin glargine [Lantus Solostar U-100 Insulin] 120 units SUBCUT BID 30 Days #72 ml 06/26/21 [Rx Last Taken Unknown] insulin lispro [Humalog KwikPen Insulin] 80 unit SUBCUT TIDAC 30 Days #72 ml 06/26/21 [Rx Last Taken Unknown] Allergy/AdvReac Type Severity Reaction Status Date / Time codeine AdvReac Nausea Verified 05/28/21 14:35 promethazine [From Phenergan] AdvReac Nausea Verified 05/28/21 14:35 Family History Father CVA (cerebral vascular accident) Myocardial infarction Mother Dementia Surgical History History of appendectomy History of coronary artery stent placement History of surgery on arm Hx of partial nephrectomy Previous back surgery S/P appendectomy Social History household members: none Smoking Status: Former smoker quit date: 05/19/15 Tobacco: How many years used: 50 how long ago did patient quit smoking: Smoked ~1/2 ppd x 50 years until quit. alcohol intake: never substance use type: does not use ROS ROS ED ROS Narrative Constitutional: No fever, no chills. HEENT: No sore throat. No neck pain. No loss of vision. No rhinorrhea. Cardiovascular: Positive chest pain worse with inhalation. No palpitations. No pedal edema. Respiratory: No cough, no shortness of breath. Abdominal: No abdominal pain. No nausea. No vomiting. Genitourinary: No dysuria. No hematuria. Musculoskeletal: No myalgias. No arthralgias. Neurologic: No headaches. No dizziness. No lightheadedness. Skin: No rash. No change in color. Psychiatric: No depression. No anxiety. EXAM Physical Exam Narrative Exam Narrative: Afebrile. Vital signs noted. HEENT: Normocephalic. Atraumatic. PERRL, EOMI. Neck soft and supple. No point tenderness or step off. Cardiovascular: Regular rate and rhythm. No murmurs, rubs, or gallops appreciated. Respiratory: No tachypnea. Lungs clear to auscultation bilaterally. Gastrointestinal: Abdomen soft, obese, nontender, with normoactive bowel sounds. No rebound or guarding. Neurological: Awake. Alert. Nonfocal, nonlateralizing. Patient mildly hard of hearing. Skin: No rash. Normal color. No pallor. Musculoskeletal: No pedal edema. Bilateral lower extremities wrapped, left with noted drain. Const Vital Signs: 06/29/21 08:14 06/29/21 08:21 06/29/21 08:27 Temperature 98.9 F Temperature Source Oral Pulse Rate 79 78 Respiratory Rate 18 16 Respiratory Effort Normal Non-Labored Blood Pressure 98/58 L 98/58 L Blood Pressure Mean 71 71 Pulse Ox 92 94 Oxygen Delivery Method Room Air Nasal Cannula Oxygen Flow Rate (L/min) 2 06/29/21 10:46 Temperature 98.9 F Temperature Source Oral Pulse Rate 75 Respiratory Rate 17 Respiratory Effort Blood Pressure 110/58 L Blood Pressure Mean 75 Pulse Ox 94 Oxygen Delivery Method Room Air Oxygen Flow Rate (L/min) MDM MDM MDM Narrative Medical decision making narrative: Some of his laboratory work has already returned. He is hyperkalemic at 6.2 with a creatinine elevated above 2, and a low GFR. I am unable to perform CTA for pulmonary embolism. I will obtain a chest x-ray. His EKG demonstrates normal sinus rhythm with first-degree AV block but no acute ST changes. He does not have peaked T waves. He was administered insulin and dextrose along with calcium gluconate for his hyperkalemia of 6.2. His initial troponin that was ordered on TCU was normal. His repeat troponin is normal. No significant delta troponin. After medication, potassium still elevated 5.8. Chest x-ray shows mild increased markings at the lung bases but no significant change. At this point in time, g iven his hyperkalemia and acute on chronic kidney injury, patient was discussed with Dr. Brambila for admission. Patient is in stable condition. Lab Data Attestation: I reviewed the patient's lab results. Labs: Laboratory Results - last 24 hr 06/29/21 06/29/21 10:03 10:03 Potassium 5.8 H Troponin I High Sens 26 Radiography Diagnostic Testing: Clinical Impression(s) from Imaging Studies Chest X-Ray 06/29/21 08:00 IMPRESSION: Mild increased markings at the lung bases. There has been no change. Electronically Signed: James Bell MD at 10:08 EST , Discharge Plan Dx/Rx/DC Orders Clinical Impression: Chest pain, Acute hyperkalemia, [id number] kidney injury Disposition Disposition: Acute Care Hospital [facility]
[2021-06-29] MEDS: Calcium Gluconate IV 3 GM in Syringe 1 EACH IV (10:01)
[2021-06-29] MEDS: Insulin Lispro 10 UNIT in Syringe 0 ML 6 UNIT IV (10:02)
[2021-06-29 10:18] LABS: Potassium 5.8 mmol/L (3.5-5.1)
[2021-06-29] MEDS: Dextrose 10%-Water 250 ML 999 ML IV (10:22)
[2021-06-29 10:29] LABS: Troponin-I HS 26 pg/mL (3.0-78.0)
--- NOTE | 2021-06-29 10:56 | HP.PCM.HOS_ITS ---
HPI - General General Date of Service: 06/29/21 Chief Complaint: Chest pain; abnormal labs HPI Narrative JUAREZ GOODRICH, is a 65 M with multiple comorbidities including infected diabetic foot ulceration for which he had a wound VAC placed during a recent hospitaliza tion and subsequently sent to the transitional care unit for further management. Patient did complain of chest pain whilst on the TCU. Evaluation was initiated on the unit and subsequently transferred to the urgency department. In the ED initial set of cardiac enzymes came back negative. Patient was Found to have impaired kidney function in addition to hyperkalemia treatment initiated in the ED and admitted to monitored bed [facility] Medical History Cancer Chest pain CKD (chronic kidney disease), stage III COPD (chronic obstructive pulmonary disease) Current use of insulin Difficulty swallowing DVT (deep venous thrombosis) Former tobacco use History of kidney cancer Myocardial infarct Obesity CAMACHO (obstructive sleep apnea) Polycythemia secondary to hypoxia Status post debridement of ulcer of heel Type 2 diabetes mellitus with diabetic polyneuropathy Wears hearing aid in both ears Home Medications ascorbic acid (vitamin C) 1,000 mg PO TID 07/11/20 [History Last Taken 05/27/21] aspirin 81 mg PO DAILY@0800 07/11/20 [History Last Taken 05/27/21] atorvastatin 80 mg PO QHS 07/11/20 [History Last Taken 05/27/21] carvedilol 12.5 mg PO DAILY 08/17/20 [History Last Taken 06/01/21 08:10] cholecalciferol (vitamin D3) 125 mcg PO DAILY 05/28/21 [History Last Taken 05/27/21] melatonin 3 mg PO QHS PRN PRN #0 tab 06/01/21 [Rx Last Taken Unknown] acetaminophen 1,000 mg PO Q6H PRN PRN #0 tab 06/19/21 [Rx Last Taken Unknown] amoxicillin-pot clavulanate 500 mg PO BID 10 Days #20 tab 06/19/21 [Rx Last Taken Unknown] pbnjv-svly-[id number]-[id number]-[id number] [Corwin (with collagen)] 1 packet PO BIDCM 30 Days #60 ea 06/19/21 [Rx Last Taken Unknown] doxycycline monohydrate 100 mg PO BID 10 Days #20 cap 06/19/21 [Rx Last Taken Unknown] gabapentin 800 mg PO TID 30 Days #90 tab 06/19/21 [Rx Last Taken Unknown] zinc sulfate 220 mg PO DAILY #0 cap 06/19/21 [Rx Last Taken Unknown] insulin glargine [Lantus Solostar U-100 Insulin] 120 units SUBCUT BID 30 Days #72 ml 06/26/21 [Rx Last Taken Unknown] insulin lispro [Humalog KwikPen Insulin] 80 unit SUBCUT TIDAC 30 Days #72 ml 06/26/21 [Rx Last Taken Unknown] Allergy/AdvReac Type Severity Reaction Status Date / Time codeine AdvReac Nausea Verified 05/28/21 14:35 promethazine [From Phenergan] AdvReac Nausea Verified 05/28/21 14:35 Family History Father CVA (cerebral vascular accident) Myocardial infarction Mother Dementia Surgical History History of appendectomy History of coronary artery stent placement History of surgery on arm Hx of partial nephrectomy Previous back surgery S/P appendectomy Social History household members: none Smoking Status: Former smoker quit date: 05/19/15 Tobacco: How many years used: 50 how long ago did patient quit smoking: Smoked ~1/2 ppd x 50 years until quit. alcohol intake: never substance use type: does not use ROS ROS Narrative GENERAL: denies fever, chills, night sweats, HEENT: denies headache, sinus congestion, RESPIRATORY: denies cough, sputum production, CARDIAC: chest pain, D GASTROINTESTINAL: denies abdominal pain, nausea, GENITOURINARY: denies dysuria, urgency, frequency, EXTREMITY: denies swelling MUSCULOSKELETAL: denies current joint pain or tenderness NEUROLOGIC: denies focal numbness, weakness, tingling HEMATOLOGIC: denies easy bruising and/or hemorrhage INTEGUMENT: denies rashes PSYCHIATRIC: denies suicidal or homicidal ideation Vital Signs Vital Signs Vital Signs: 06/29/21 08:14 06/29/21 08:21 06/29/21 08:27 Temperature 98.9 F Temperature Source Oral Pulse Rate 79 78 Respiratory Rate 18 16 Respiratory Effort Normal Non-Labored Blood Pressure 98/58 L 98/58 L Blood Pressure Mean 71 71 Pulse Ox 92 94 Oxygen Delivery Method Room Air Nasal Cannula Oxygen Flow Rate (L/min) 2 06/29/21 10:46 Temperature 98.9 F Temperature Source Oral Pulse Rate 75 Respiratory Rate 17 Respiratory Effort Blood Pressure 110/58 L Blood Pressure Mean 75 Pulse Ox 94 Oxygen Delivery Method Room Air Oxygen Flow Rate (L/min) Weight Weight: 136.6 kg Body Mass Index (BMI) 37.6 Results Lab / Micro Data Result Diagrams: 06/29/21 10:03 Labs: Laboratory Results - last 24 hr 06/29/21 10:03: Potassium 5.8 H 06/29/21 10:03: Troponin I High Sens 26 Radiology Impression Chest X-Ray 06/29/21 08:00 IMPRESSION: Mild increased markings at the lung bases. There has been no change. Electronically Signed: James Bell MD at 10:08 EST , Charges/Coding Visit Charges Inpatient E&M: 95336 Subs Hosp L3 Assessment and Plan (No Qualifiers) Assessment and Plan (1) Acute hyperkalemia: Status: Acute Plan: Patient is a 65-year-old gentleman admitted with chest pain and abnormal labs 1. Acute on chronic kidney disease stage III ?Patient has been admitted to a monitored bed managed with IV fluid with subsequent monitoring of electrolytes ordered 2. Hyperkalemia ?Secondary to patient's impaired kidney function treatment initiated in the ED admitted to a monitored bed with serial BMPs ordered for subsequent management 3. Chest pain ?Initial cardiac enzymes negative. Admitted to monitored bed for continuous telemetry monitoring. Subsequent evaluation with serial cardiac enzymes ordered 4. Infected diabetic foot ulcer involving the left heel ?Patient underwent wound VAC placement during her recent admission was discharged on doxycycline on Augmentin plan is to continue 5. Diabetes mellitus type II -patient's oral hypoglycemics held. Placed on long acting insulin, Accu-Cheks a.c. and at bedtime and covered with sliding scale insulin 6. Chronic hypoxic respiratory failure -secondary to COPD patient on baseline home oxygen 7. Hypertension - Blood pressure controlled, home medications continued with dose adjustment as needed 8. Dyslipidemia -Patient is on statin therapy, continued at home dose 9. Obstructive sleep apnea ? On CPAP at night plan is to continue with home statin 10. Class II obesity with BMI of 35.7 ? Weight loss advised 11. Physical deconditioning - Requested for PT OT eval and protective services social worker to assist with discharge planning 12. DVT prophylaxis - Lovenox Assessment & Plan Assessment & Plan Plan: Patient is a 65-year-old gentleman admitted with chest pain and abnormal labs 1. Acute on chronic kidney disease stage III ?Patient has been admitted to a monitored bed managed with IV fluid with subsequent monitoring of electrolytes ordered 2. Hyperkalemia ?Secondary to patient's impaired kidney function treatment initiated in the ED admitted to a monitored bed with serial BMPs ordered for subsequent management 3. Chest pain ?Initial cardiac enzymes negative. Admitted to monitored bed for continuous telemetry monitoring. Subsequent evaluation with serial cardiac enzymes ordered 4. Infected diabetic foot ulcer involving the left heel ?Patient underwent wound VAC placement during her recent admission was discharged on doxycycline on Augmentin plan is to continue 5. Diabetes mellitus type II -patient's oral hypoglycemics held. Placed on long acting insulin, Accu-Cheks a.c. and at bedtime and covered with sliding scale insulin 6. Chronic hypoxic respiratory failure -secondary to COPD patient on baseline home oxygen 7. Hypertension - Blood pressure controlled, home medications continued with dose adjustment as needed 8. Dyslipidemia -Patient is on statin therapy, continued at home dose 9. Obstructive sleep apnea ? On CPAP at night plan is to continue with home statin 10. Class II obesity with BMI of 35.7 ? Weight loss advised 11. Physical deconditioning - Requested for PT OT eval and protective services social worker to assist with discharge planning 12. DVT prophylaxis - Lovenox
--- NOTE | 2021-06-29 11:15 | CASEMGMT ---
LU QUINTANILLA met with patient in ER room to discuss transition planning. Patient expressed wishes to return to TCU at time of hospital discharge. CM/SW to follow for any discharge planning/needs. Patient voices no concerns/needs at this time. LU Spangler CM
--- NOTE | 2021-06-29 11:45 | CASEMGMT ---
LU QUINTANILLA Readmission Chart Review: Admitted to [facility] 05/28-2021 to 06/01/2021 for diabetic foot ulcer and cellulitis. During this admission, patient had wound vac placed to foot and was discharged to [facility] TCU for further management and antibiotics prescribed. Discharge lab values on 06/01: BUN 52, Cr 2.48, K+ 5.2. Patient presented to [facility] ED from TCU on 06/29/2021 for complaint of chest pain. Initial troponin ordered on TCU was normal and repeat troponin in ER was normal. BUN 75, Cr 2.85. K+ 6.2 with repeat K+ 5.8 following treatment with insulin, dextrose and calcium gluconate. Patient readmitted for hyperkalemia, [id number] kidney injury and chest pain. LU Spangler CM
[2021-06-29] MEDS: Insulin Lispro 100 UNIT/ML INSULN.PEN SC ×3 (12:31→21:34)
[2021-06-29] MEDS: 0.9% Saline Lock 10 ML Syringe IV (12:31)
[2021-06-29] MEDS: 0.9% Normal Saline 1,000 ML 150 ML IV ×2 (12:38→18:40)
[2021-06-29 12:46] LABS: Bedside Glucose 236 mg/dL (70-110)
[2021-06-29 12:59] LABS: Anion Gap 4 (5-15); BUN 74 mg/dL (7-18); BUN/Creat Ratio 25.4 RATIO (10-20); Calcium,Total 9.8 mg/dL (8.5-10.1); Chloride 100 mmol/L (98-107); Creatinine, Serum 2.91 mg/dL (0.70-1.30); EST Glomerular Filtration Rate 23 mL/min (>60); Est Glom Filt Rate - Afr Amer 28 mL/min (>60); Estimated Creatinine Clearance 29.44 ml/min; Glucose 227 mg/dL (74-106); Potassium 5.1 mmol/L (3.5-5.1); Sodium Level 133 mmol/L (136-145); Troponin-I HS 26 pg/mL (3.0-78.0)
--- NOTE | 2021-06-29 13:49 | WOUNDNOTE ---
wound photo: left plantar foot
--- NOTE | 2021-06-29 13:50 | WOUNDNOTE ---
wound photo: left heel
--- NOTE | 2021-06-29 13:51 | WOUNDNOTE ---
Home wound VAC to room in case patient is discharged home tomorrow as planned. Home health care was set up per KARLI Castle. next VAC change is 07/02/21.
[2021-06-29] MEDS: Gabapentin 800 MG Tablet PO ×2 (14:45→21:35)
--- NOTE | 2021-06-29 15:12 | CASEMGMT ---
Pt from TCU and plan was to discharge home from there tomorrow with [facility] for SN, PT, aide-order already sent from TCU per [facility]. Pt has knee sling at [facility] that daughter will diamond picker at discharge. Daughter, Shyann, will pick pt up at discharge but lives an hour away. Green sheet left on chart for HHC and with daughter's contact info. Ciro LEIGH CM
[2021-06-29 16:31] LABS: Anion Gap 5 (5-15); BUN 70 mg/dL (7-18); BUN/Creat Ratio 24.7 RATIO (10-20); Calcium,Total 9.8 mg/dL (8.5-10.1); Chloride 99 mmol/L (98-107); Creatinine, Serum 2.83 mg/dL (0.70-1.30); EST Glomerular Filtration Rate 24 mL/min (>60); Est Glom Filt Rate - Afr Amer 29 mL/min (>60); Estimated Creatinine Clearance 30.27 ml/min; Glucose 214 mg/dL (74-106); Potassium 5.1 mmol/L (3.5-5.1); Sodium Level 133 mmol/L (136-145); Troponin-I HS 24 pg/mL (3.0-78.0)
[2021-06-29] MEDS: Juven (unflavored) Packet 1 PACKET PO (16:54)
[2021-06-29] MEDS: Insulin Lispro 100 UNIT/ML INSULN.PEN 80 UNIT SC (16:59)
[2021-06-29 17:06] LABS: Bedside Glucose 218 mg/dL (70-110)
[2021-06-29] MEDS: Acetaminophen 500 MG Tablet 1000 MG PO ×2 (17:40→22:22)
[2021-06-29] MEDS: oxyCODONE 5 MG Tablet 10 MG PO (17:40)
[2021-06-29] MEDS: Doxycycline 100 MG CAPSULE PO (21:35)
[2021-06-29] MEDS: Amox/Clavulanate 500 MG Tablet PO (21:35)
[2021-06-29] MEDS: Atorvastatin Calcium 80 MG Tablet PO (21:35)
[2021-06-29] MEDS: Ketoconazole Cream 1 APPLIC TOPICAL (21:35)
[2021-06-30 00:46] LABS: Bedside Glucose 248 mg/dL (70-110)
[2021-06-30] MEDS: 0.9% Normal Saline 1,000 ML 150 ML IV (00:48)
[2021-06-30 03:00] VITALS: PULSE 79
--- NOTE | 2021-06-30 03:44 | NUR.TO.PHY ---
Patient placed on 3L due to SP02 around 85% Oxygen brought O2 upto 93-94%
[2021-06-30 05:45] VITALS: BP 148/68; PULSE 74; RESP 16; TEMP 36.5; O2SAT 95
[2021-06-30] MEDS: Acetaminophen 500 MG Tablet 1000 MG PO (05:53)
[2021-06-30] MEDS: Gabapentin 800 MG Tablet PO (05:53)
--- NOTE | 2021-06-30 07:28 | PCM.DC.SUM ---
Providers Date of Admission: 06/29/21 Primary Care Physician: SULMA OSORIO Consultations 06/29/21 10:51 Consult: Onc/Wound/estimator binding Routine Comment: Reason For Visit: PATRICK, HYPERKALEMIA Diagnosis Discharge Diagnosis (1) Acute hyperkalemia: Status: Acute Code(s): E87.5 - Hyperkalemia Medications at Discharge Home Medications ascorbic acid (vitamin C) 1,000 mg PO TID 07/11/20 aspirin 81 mg PO DAILY@0800 07/11/20 atorvastatin 80 mg PO QHS 07/11/20 carvedilol 12.5 mg PO DAILY 08/17/20 cholecalciferol (vitamin D3) 125 mcg PO DAILY 05/28/21 melatonin 3 mg PO QHS PRN PRN #0 tab 06/01/21 acetaminophen 1,000 mg PO Q6H PRN PRN #0 tab 06/19/21 Lactobacillus acidophilus 1 tab PO BID 06/29/21 Lantus Solostar U-100 Insulin 120 units SUBCUT BID 06/29/21 gabapentin 800 mg PO TID 06/29/21 insulin lispro 80 unit SUBCUT TIDCM 06/29/21 ketoconazole 1 applic TOPICAL BID 06/29/21 ketoconazole 200 mg PO DAILY 06/29/21 nutritional supplements 1 ea PO BID 06/29/21 zinc sulfate 220 mg PO DAILY 06/29/21 acidophilus-pectin, citrus 1 tab PO BID #60 tab 06/30/21 amoxicillin-pot clavulanate 500 mg PO BID #28 tab 06/30/21 wdhpe-mand-[id number]-[id number]-ii-[id number] [Corwin (with collagen)] 1 packet PO BIDCM #60 ea 06/30/21 doxycycline monohydrate 100 mg PO BID #28 cap 06/30/21 oxycodone 5 mg PO Q6H PRN PRN 3 Days #12 tab 06/30/21 Hospital Course Summary of Care Provided Minutes Spent on Discharge: 35 Hospital Course: Patient is a 65-year-old gentleman admitted with chest pain and abnormal labs 1. Acute on chronic kidney disease stage III ?Patient has been admitted to a monitored bed managed with IV fluid with subsequent monitoring of electrolytes ordered ?Patient kidney function did improve. Patient was on diuretics Lasix discontinued on discharge 2. Hyperkalemia ?Secondary to patient's impaired kidney function treatment initiated in the ED admitted to a monitored bed with serial BMPs ordered for subsequent management -06/30/2021. Patient potassium back within normal limit. Patient potassium supplements discontinued 3. Chest pain ?Initial cardiac enzymes negative. Admitted to monitored bed for continuous telemetry monitoring. Subsequent evaluation with serial cardiac enzymes ordered 4. Infected diabetic foot ulcer involving the left heel ?Patient underwent wound VAC placement during her recent admission was discharged on doxycycline on Augmentin plan is to continue 5. Diabetes mellitus type II -patient's oral hypoglycemics held. Placed on long acting insulin, Accu-Cheks a.c. and at bedtime and covered with sliding scale insulin 6. Chronic hypoxic respiratory failure -secondary to COPD patient on baseline home oxygen 7. Hypertension - Blood pressure controlled, home medications continued with dose adjustment as needed 8. Dyslipidemia -Patient is on statin therapy, continued at home dose 9. Obstructive sleep apnea ? On CPAP at night plan is to continue with home statin 10. Class II obesity with BMI of 35.7 ? Weight loss advised 11. Physical deconditioning - Requested for PT OT eval and psychotherapist social worker to assist with discharge planning 12. DVT prophylaxis - Lovenox Physical Exam Narrative GENERAL: cooperative HEENT: Atraumatic; EYES; Anicteric, Normal Conjunctiva NECK; supple, normal thyroid, RESPIRATORY: Diminished to auscultation CARDIOVASCULAR: Regular S1 S2, GI: soft, normoactive bowel sounds, : No Renal angle tenderness; EXTREMITIES: Left foot in surgical dressing MUSCULOSKELETAL: no muscle waisting NEURO: Awake; no lateralizing signs. SKIN: No Rash PSYCH; Flat affect Weight / BMI Weight Weight: 135.2 kg Body Mass Index (BMI) 36.9 ABG / Lab / Microbiology Data Result Diagrams: 06/30/21 08:14 06/30/21 08:14 Laboratory: Laboratory Results - last 24 hr 06/29/21 10:03: Potassium 5.8 H 06/29/21 10:03: Troponin I High Sens 26 06/29/21 12:19: POC Glucose 236 H 06/29/21 12:23: Sodium 133 L, Potassium 5.1, Chloride 100, Carbon Dioxide 29.0, Anion Gap 4 L, BUN 74 H, Creatinine 2.91 H, Estim Creat Clear Calc 29.44, Est GFR (MDRD) Af Amer 28 L, Est GFR (MDRD) Non-Af 23 L, BUN/Creatinine Ratio 25.4 H, Glucose 227 H, Calcium 9.8, Troponin I High Sens 26 06/29/21 16:05: Sodium 133 L, Potassium 5.1, Chloride 99, Carbon Dioxide 29.0, Anion Gap 5, BUN 70 H, Creatinine 2.83 H, Estim Creat Clear Calc 30.27, Est GFR (MDRD) Af Amer 29 L, Est GFR (MDRD) Non-Af 24 L, BUN/Creatinine Ratio 24.7 H, Glucose 214 H, Calcium 9.8, Troponin I High Sens 24 06/29/21 16:54: POC Glucose 218 H 06/29/21 21:26: POC Glucose 248 H Radiography Diagnostic Testing: Radiology Impression Chest X-Ray 06/29/21 08:00 IMPRESSION: Mild increased markings at the lung bases. There has been no change. Electronically Signed: James Bell MD at 10:08 EST , D/C Instructions Discharge Diet: 1800 Calorie Control Diet Discharge Activity: Return to Normal Activity Call your doctor if you observe: Fever of 101 or Higher, Shortness of breath, Fainting spells and Chest pain Meaningful Use Info Meaningful Use Diagnoses (Choose all that apply): None applicable Discharge Plan Admission Admit Date/Time: 06/29/21 10:50 Attending Provider: Nick Brambila Discharge Orders/Prescriptions Prescriptions: New oxycodone 5 mg Tablet 5 mg PO Q6H PRN PRN (Reason: Pain Score 4-10) 3 Days Qty: 12 RF: 0 acidophilus-pectin, citrus 25 million cell -100 mg Tablet 1 tab PO BID Qty: 60 RF: 0 Corwin (with collagen) 7-7-1.5 gram Powder In Packet 1 packet PO BIDCM Qty: 60 RF: 0 Continued atorvastatin 80 MG tablet 80 mg PO QHS RF: 0 ascorbic acid (vitamin C) 1,000 MG tablet 1,000 mg PO TID RF: 0 aspirin 81 MG tablet,chewable 81 mg PO DAILY@0800 RF: 0 carvedilol 12.5 MG tablet 12.5 mg PO DAILY RF: 0 cholecalciferol (vitamin D3) 125 mcg (5,000 unit) Capsule 125 mcg PO DAILY RF: 0 acetaminophen 500 mg Tablet 1,000 mg PO Q6H PRN PRN (Reason: Pain Score 1-10) Qty: 0 RF: 0 nutritional supplements Powder 1 ea PO BID RF: 0 insulin lispro 100 unit/mL Insulin Pen 80 unit SUBCUT TIDCM RF: 0 gabapentin 800 mg tablet 800 mg PO TID RF: 0 zinc sulfate 50 mg zinc (220 mg) capsule 220 mg PO DAILY RF: 0 Lantus Solostar U-100 Insulin 100 unit/mL (3 mL) insulin pen 120 units subcut BID RF: 0 ketoconazole 200 mg Tablet 200 mg PO DAILY RF: 0 ketoconazole 2 % Cream 1 applic TOPICAL BID RF: 0 Lactobacillus acidophilus Tablet 1 tab PO BID RF: 0 doxycycline monohydrate 100 mg capsule 100 mg PO BID Qty: 28 RF: 0 amoxicillin-pot clavulanate 500-125 mg tablet 500 mg PO BID Qty: 28 RF: 0 Discontinued potassium chloride 20 mEq Tablet Extended Release 20 meq PO DAILY RF: 0 furosemide 40 mg Tablet 40 mg PO DAILY RF: 0 No Action melatonin 3 mg Tablet 3 mg PO QHS PRN PRN (Reason: Insomnia) Qty: 0 RF: 0 Referrals / Follow Up: SULMA OSORIO [Other] SULMA OSORIO [Other] Tiffany Chapman DPM [STAFF PHYSICIAN] - Within 1 Week Walt Raphael MD [STAFF PHYSICIAN] - Within 2 Weeks Disposition Disposition (needs filled in before D/C Order can be placed): Home Health Service Charges/Coding Visit Charges Inpatient E&M: 88428 Disch Hosp
[2021-06-30 07:29] VITALS: PULSE 71
[2021-06-30 08:00] LABS: Bedside Glucose 157 mg/dL (70-110)
[2021-06-30 08:25] LABS: Absolute Lymphocyte Count 2.37 X10^3/uL (0.83-4.51); Absolute Neutrophil Count 6.2 X10^3/uL (2.0-7.7); Basophil# 0.06 X10^3/uL; Basophil% 0.6 % (0-1); Eosinophil# 0.47 X10^3/uL; Eosinophils% 4.4 % (0-5); Hematocrit 42.5 % (40-54); Hemoglobin 13.5 g/dL (13.0-16.5); Lymphocyte # 2.37 X10^3/ul (0.83-4.51); Lymphocyte % 22.2 % (19-41); Mean Corp Hgb Conc 31.8 g/dL (32-36); Mean Corpuscular Hgb 28.4 pg (27.0-32.0); Mean Corpuscular Volume 89.3 fL (80-94); Mean Platelet Vol. 10.9 fl (6.2-12.0); Monocyte% 14.1 % (0-10); NRBC Flagged by Analyzer 0 % (0-5); Neutrophil # 6.19 X10^3/uL (2.7-7.7); Platelet Count 203 K/mm3 (150-450); RBC Distribution Width CV 15.4 % (11.6-14.6); RBC Distribution Width SD 50.5 fl (35.1-43.9); Red Blood Count 4.76 M/mm3 (4.6-6.2); White Blood Count 10.7 K/mm3 (4.4-11.0)
[2021-06-30] MEDS: Insulin Lispro 100 UNIT/ML INSULN.PEN 80 UNIT SC (08:37)
[2021-06-30] MEDS: Insulin Lispro 100 UNIT/ML INSULN.PEN SC (08:39)
[2021-06-30] MEDS: Juven (unflavored) Packet 1 PACKET PO (08:41)
[2021-06-30] MEDS: Aspirin 81 MG TAB.CHEW PO (08:41)
[2021-06-30] MEDS: Amox/Clavulanate 500 MG Tablet PO (09:03)
[2021-06-30] MEDS: Doxycycline 100 MG CAPSULE PO (09:03)
[2021-06-30] MEDS: Enoxaparin 30 MG/0.3 ML Syringe SC (09:04)
[2021-06-30] MEDS: Carvedilol 12.5 MG Tablet PO (09:04)
[2021-06-30] MEDS: Ketoconazole Cream 1 APPLIC TOPICAL (09:06)
[2021-06-30 09:07] LABS: Anion Gap 5 (5-15); BUN 69 mg/dL (7-18); BUN/Creat Ratio 25.5 RATIO (10-20); Calcium,Total 9.2 mg/dL (8.5-10.1); Chloride 102 mmol/L (98-107); Creatinine, Serum 2.71 mg/dL (0.70-1.30); EST Glomerular Filtration Rate 25 mL/min (>60); Est Glom Filt Rate - Afr Amer 30 mL/min (>60); Estimated Creatinine Clearance 31.61 ml/min; Glucose 147 mg/dL (74-106); Potassium 5.1 mmol/L (3.5-5.1); Sodium Level 134 mmol/L (136-145)
[2021-06-30] MEDS: oxyCODONE 5 MG Tablet 10 MG PO (09:16)
[2021-06-30 09:49] VITALS: BP 122/66; PULSE 80; RESP 16; TEMP 36.6; O2SAT 93
[2021-06-30 10:00] VITALS: O2SAT 93
== END 2021-06-30 11:45 | disposition home health service (06) | DRG 641 ==
LOC: ED 10:52 → PCU 11:36
PROVIDERS: Admitting Provider Internal Medicine; Emergency Provider Emergency Medicine; Visit Provider Internal Medicine
DX: E87.5 Hyperkalemia (principal); J96.11 Chronic respiratory failure with hypoxia; L97.429 Non-pressure chronic ulcer of left heel and midfoot with unspecified severity; E11.22 Type 2 diabetes mellitus with diabetic chronic kidney disease; E11.42 Type 2 diabetes mellitus with diabetic polyneuropathy; D75.1 Secondary polycythemia; E11.621 Type 2 diabetes mellitus with foot ulcer; Z79.4 Long term (current) use of insulin; J44.9 Chronic obstructive pulmonary disease, unspecified; N18.30 Chronic kidney disease, stage 3 unspecified; E78.5 Hyperlipidemia, unspecified; I12.9 Hypertensive chronic kidney disease with stage 1 through stage 4 chronic kidney disease, or unspecified chronic kidney disease; G47.33 Obstructive sleep apnea (adult) (pediatric); I44.0 Atrioventricular block, first degree; I25.2 Old myocardial infarction; R07.89 Other chest pain; E66.9 Obesity, unspecified; Z68.37 Body mass index [BMI] 37.0-37.9, adult; Z87.891 Personal history of nicotine dependence; Z79.82 Long term (current) use of aspirin; Z79.899 Other long term (current) drug therapy; Z85.528 Personal history of other malignant neoplasm of kidney; Z99.81 Dependence on supplemental oxygen; L08.9 Local infection of the skin and subcutaneous tissue, unspecified
CPT/HCPCS: 36415; 71045; 80048; 82962; 84132; 84484; 85025; 93005; 97162; 97802; 99251; 99284; J7030; A4216; G0463; J0610

== ENCOUNTER 2021-07-11 09:33 | Outpatient (RCR) | payer MEDICARE, BC, SELFPAY ==
[2021-06-19 00:30] VITALS: BP 148/69; PULSE 62; RESP 18; TEMP 36.3; BMI 33.7
[2021-07-11 09:40] VITALS: BP 126/60; PULSE 75; RESP 22; TEMP 36; BMI 33.7
--- NOTE | 2021-07-11 10:34 | PCM.WC.PN ---
History of Present Illness Date of Service: 07/11/21 Chief Complaint: left heel and arch ulcers History of Wound: Patient presents for chronic non healing wound to left plantar foot (heel and arch). A limb and life-threatening infection which required emergent surgical intervention on 05-29-2021. He then subsequently resided in the transitional care unit for wound care which she completed a course of IV antibiotics. He is now at home and has home health assisting with wound VAC. His foot became very wet this past week and he is concerned that it was leaking. He denies fever, chill, nausea, vomiting, pain. He is keeping weight off of his foot he reports. Progress of Wound: Improved compared to transitional care unit evaluation, however maceration noted Objective Data Objective Data Vital Signs: Vital Signs Temp Pulse Resp BP 96.8 F L 75 22 H 126/60 H 07/11/21 09:40 07/11/21 09:40 07/11/21 09:40 07/11/21 09:40 Body Mass Index (BMI) 33.7 Physical Exam Narrative Const alert and no apparent distress General Appearance: cooperative and comfortable Extremity There is diffuse left foot/ankle and leg swelling. Left foot s/p debridement to arch and heel, tissues are healthy and viable, granular, down to fascia layer, there is no streaking or odor, compartments remain soft to palpate, there is no fluctuance or bogginess on palpation, no drainage, no visible abscess, no cellulitis, no blistering present. Hematogenous drainage only upon debridement. Periwound moisture and maceration is significant. General Extremity: Negative for clubbing or cyanosis to digits. Vasc normal capillary refill, no acute ischemic skin changes noted, normal temperature bilateral. Skin Skin Narrative: Wound Narrative: Neuro Neuro Narrative: Debridement Note Debridement Note Wound debrided: left heel and left arch Wound Grade/Stage: 3,3 Type of Debridement: Excisional debridement Anesthesia Used: 4% Lidocaine Solution Depth: in the subcutaneous layer Percentage of wound debrided: 100 Instrument Used: #15 blade Tissue Removed: fibrous, devitalized subcutaneous, biofilm, slough Severity: Fat Layer Exposed Amount of bleeding with debridement: Mild Bleeding Controlled with: Pressure Patient tolerated procedure: Patient tolerated procedure well Post-Debridement Measurements and Additional Note: Post-Debridement Measurements/Treatment WC - Nurse 1 - General Ulcer Assessment Start: 07/11/21 09:33 Freq: Status: Active Protocol: [email or web address] Activity Type Activity Date Activity User E-Sign Co-Sign Detail Recorded Client Recorded Date Recorded By Document 07/11/21 09:40 DL [id number] 07/11/21 09:51 DL 07/11/21 09:40 - Today's Visit Information Type of service Follow-up Visit (Physician/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 ) Arrival Mode Wheelchair Transfer Assistance Manual Transfer Assist (Other) x1 Patient Identification Verified (Name & Yes ) Patient Requires Transmission-Based No Precautions Finger Stick Blood Sugar(mg/dl) (if 136 indicated): Blood Sugar Stated by Patient Height and Weight Body Mass Index (BMI) 33.7 BMI Classification Obese Vital Signs Temperature (97.8 F-99.1 F) 96.8 F L Temperature Source Temporal Pulse Rate (60-100) 75 Pulse Location Monitor Respiratory Rate (12-18) 22 H Respiratory rate source Observation Blood Pressure (90/60-120/80) 126/60 H Blood Pressure Mean (mm Hg) 82 Source Monitor History Since Last Visit- (Skip if this is Patient's initial visit) Have you changed medications since your No last visit? Any new allergies or adverse reactions No Had a fall/change in ADL's that may No increase risk of falls Signs or symptoms of abuse and/or No neglect since last visit Have you been in the hospital since your No last visit? Has dressing in place as prescribed Yes Has compression in place as prescribed Yes Has offloadiing in place as prescribed Yes Experienced any changes in pain level or No management Left Footwear Slipper Right Footwear Slipper Pain Scale: 0-10 Numeric Is Patient Pain Free? Yes - Nurse 1 - General Ulcer Measurement Start: 07/11/21 09:33 Freq: Status: Active Protocol: Activity Type Activity Date Activity User E-Sign Co-Sign Detail Recorded Client Recorded Date Recorded By Document 07/11/21 09:40 DL [id number] 07/11/21 09:51 DL 07/11/21 09:40 Wound Center Nurse 1 #1 left heel -Current Size (cm) - Length 13.7 -Current Size (cm) - Width 7.5 -Current Size (cm) - Depth 1.9 -Total Square Cm 102.75 -Photo Taken Yes -Exudate Amt Large -Exudate Type Serosanguineous -Wound Margin Indistinct, Non -Visible -Granulation Amt Medium (34-66%) -Granulation Quality [place],Red -Necrosis Amt Medium (34-66%) -Necrotic Tissue Type Adherent Slough -Structure Exposed N/A -Texture (Margaret-wound Skin Appearance) Localized Edema ,Scarring -Moisture (Margaret-wound Skin Appearance) Maceration -Color (Margaret-wound Skin Appearance) Hemosiderin Staining -Temperature (Margaret-wound Skin No Abnormality Appearance) (Pt Warm) -Tenderness on Palpation (Margaret-wound No Skin Appearance) -Ulcer Cleansing Soap and Water -Foul Odor after Cleansing No -Anesthetic Used 4% Lidocaine Solution Left Calf (cm) 54 Left Ankle (cm) 29.2 WC - Nurse 2 - General Ulcer CM Notes Start: 07/11/21 09:33 Freq: Status: Active Protocol: Activity Type Activity Date Activity User E-Sign Co-Sign Detail Recorded Client Recorded Date Recorded By Document 07/11/21 10:03 DANIEL [id number] 07/11/21 10:10 DANIEL 07/11/21 10:03 Wound Center Nurse 2 4-left plantar arch -Time 10:05 -Correct Patient Yes -Correct Side, Site, Position Yes -Correct Procedure Yes -Procedure Performed Yes -Type of Procedure Debridement -Clinical Debridement Subcutaneous -Tissue Removed Subcutaneous -Post Debridement (cm) - Length 8.8 -Post Debridement (cm) - Width 6.8 -Post Debridement (cm) - Depth 0.3 -Total Square (Post) (cm) 59.84 -Area of Debridement (cm) - Length 8.8 -Area of Debridement (cm) - Width 3.8 -Total Square (Area) (cm) 33.44 -Tunneling No -Undermining/Tunneling No -Circular Undermining No -Wound/Ulcer Outcome Not Healed -Ulcer Cleansing Rinsed/ Irrigated with Saline -Foul Odor after Cleansing No -Bioengineered Tissue No -Bleeding Controlled with Pressure -Offloading Yes -Type of Offloading Knee Walker -Treatment Response Procedure Tolerated Well -Debridement - Subq, 1st 20sq cm Yes -Debridement, SubQ, ea addt'l 20sq cm 2 or part thereof #1 left heel -Time 10:03 -Correct Patient Yes -Correct Side, Site, Position Yes -Correct Procedure Yes -Procedure Performed Yes -Type of Procedure Debridement -Clinical Debridement Subcutaneous -Tissue Removed Subcutaneous -Post Debridement (cm) - Length 3.2 -Post Debridement (cm) - Width 4.2 -Post Debridement (cm) - Depth 0.6 -Total Square (Post) (cm) 13.44 -Area of Debridement (cm) - Length 3.2 -Area of Debridement (cm) - Width 4.2 -Total Square (Area) (cm) 13.44 -Tunneling No -Undermining/Tunneling No -Circular Undermining No -Wound/Ulcer Outcome Not Healed -Ulcer Cleansing Rinsed/ Irrigated with Saline -Foul Odor after Cleansing No -Bioengineered Tissue No -Bleeding Controlled with Pressure -Offloading Yes -Type of Offloading Knee Walker -Treatment Response Procedure Tolerated Well -Debridement - Subq, 1st 20sq cm No Pain Scale: 0-10 Numeric Is Patient Pain Free? 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 insulin use: with buttermilk drier operator use Qualified Code(s): E11.42 - Type 2 diabetes mellitus with diabetic polyneuropathy; Z79.4 - nursing home (current) use of insulin (2) Delayed wound healing: CODE(S): T14.8XXD - Other injury of unspecified body region, subsequent encounter (3) Bilateral edema of lower extremity: CODE(S): R60.0 - Localized edema (4) Cellulitis of left foot: CODE(S): L03.116 - Cellulitis of left lower limb (5) Tobacco abuse: CODE(S): Z72.0 - Tobacco use (6) Obesity: CODE(S): E66.9 - Obesity, unspecified QUALIFIERS: Obesity type: due to excess calories Obesity classification: adult class 1 (BMI 30 - 34.9) Serious obesity comorbidity presence: with serious comorbidity Body mass index: BMI 33.0-33.9 Qualified Code(s): E66.09 - Other obesity due to excess calories; Z68.33 - Body mass index [BMI] 33.0-33.9, adult (7) Difficulty in walking: CODE(S): R26.2 - Difficulty in walking, not elsewhere classified (8) Ulcer of left foot with necrosis of muscle: CODE(S): L97.523 - Non-pressure chronic ulcer of other part of left foot with necrosis of muscle (9) Localized edema: CODE(S): R60.0 - Localized edema PLAN: Patient seen and examined. I reviewed and discussed his case. Debridement was performed as noted in the clinical nursing panel. Dressing recommendation: To change dressing daily with Dakin wet-to-dry. I recommend placing the wound VAC on hold until this maceration resolves. Wash: Antibacterial soap and water. Avoid soaking. Saline alone is not recommended. Patient wound is noted to have improved with healthier appearance and there is no malodor. There are no local signs infection noted today. He was seen by infectious disease during his last hospital admission and he had surgery on 05-29-2021. His surgical cultures had MRSA, Enterococcus, klebs, Proteus and it was down to deep tissue. He completed a 2-week course of IV vancomycin and Unasyn and then followed up with 4 weeks of oral doxycycline and Augmentin with a stop date of 07-10-21. Offloading: To continue offloading with cam walker boot and strict use of knee roller. To use assistive device to maintain nonweightbearing status. Compliance was reiterated and it does not appear he has been able to successfully stay off of the ulcer. Failure to do so will likely contribute to the need for amputation. Patient relates he had follow-up appointment with his primary care provider, Priyanka Brown, and relates that she did not change any medication and stated he was doing okay. PCP is leaving the diabetes management up to his asphalt paver, Dr. Mykel Barraza. He was able to follow-up and recommendations were updated. Discussed importance of cleaning and maintaining foot both to prevent infection as well as to prevent future wounds. Discussed he is at higher risk for wounds due to his diabetes, neuropathy, hyperglycemia, obesity, swelling, and tobacco abuse. Discussed that he needs to cut back on his smoking, preferably quit, and better controlling his blood sugar to better optimize his healing. Patient has not improved his tobacco abuse or his hyperglycemia. Reviewed how pressure will impact the wound. Arterial studies were reviewed. Showing likely adequate perfusion for healing. Right LAI is 0.99 and left 1.18. Right toe brachial index 0.76 and left 0.71. Referral to Dr. Campos for potential venous and arterial intervention was provided today. He went for consultationon 04-11-21. Will recheck duplex to make sure normal posterior tibial flow into the area of the wound. normal prior LAI noted. Patient relates he has been smoking since he was 10 years old. Discussed impact smoking has on his vessels as well as impact on wound healing. Patient relates that he is unwilling to quit entirely but he will try to cut back. He does not want any medical assistance at this process. Edema management: tubigrip and aayush wrap. to elevate. To discuss potential water pill application with his primary care physician. Host factors: His multiple comorbidities are noted including diabetes and smoking history. Also recommend improvement in nutritional status which involves taking in adequate protein and also focusing on eating 5-10 whole foods daily. All questions answered. Patient to follow up in 1 week or call sooner if status worsening or if questions. I answered all of his questions. This note was generated with [employer] dictation software. It may contain incorrect words, spelling, and punctuation that were not noted in checking the note before signing. The medical decision making level is low. There is noted low risk of morbidity after considering this treatment plan and diagnostic data. The problems addressed require a low medical decision making level which includes two or more minor problems, a stable chronic illness, or an acute uncomplicated illness or injury.
== END 2021-07-16 23:59 ==
LOC: WC 09:33
PROVIDERS: Referring Provider Podiatrist Foot & Ankle Surgery; Visit Provider Podiatrist
DX: E11.621 Type 2 diabetes mellitus with foot ulcer (principal); L97.423 Non-pressure chronic ulcer of left heel and midfoot with necrosis of muscle; E11.42 Type 2 diabetes mellitus with diabetic polyneuropathy; Z79.4 Long term (current) use of insulin; L03.116 Cellulitis of left lower limb; Z72.0 Tobacco use; R60.0 Localized edema; E66.09 Other obesity due to excess calories; R26.2 Difficulty in walking, not elsewhere classified; Z68.33 Body mass index [BMI] 33.0-33.9, adult; Z86.14 Personal history of Methicillin resistant Staphylococcus aureus infection; Z86.19 Personal history of other infectious and parasitic diseases
CPT/HCPCS: 11042; 11045

== ENCOUNTER 2021-08-15 10:45 | Outpatient (RCR) | payer MEDICARE, BC, SELFPAY ==
[2021-07-17 00:27] VITALS: BP 126/60; PULSE 75; RESP 22; TEMP 36; BMI 33.7
[2021-07-18 09:07] VITALS: BP 127/61; PULSE 66; RESP 22; TEMP 36.6; BMI 33.7
--- NOTE | 2021-07-18 10:16 | PCM.WC.PN ---
History of Present Illness Date of Service: 07/18/21 Chief Complaint: left heel and arch ulcers History of Wound: Patient presents for chronic non healing wound to left plantar foot (heel and arch). A limb and life-threatening infection which required emergent surgical intervention on 05-29-2021. He then subsequently resided in the transitional care unit for wound care which she completed a course of IV antibiotics. He took a break from the [facility] last week and his maceration has resolved. He denies fever, chill, nausea, vomiting, pain. He is keeping weight off of his foot he reports. He has a knee roller at home. Progress of Wound: Improving Objective Data Objective Data Vital Signs: Vital Signs Temp Pulse Resp BP 97.8 F 66 22 H 127/61 H 07/18/21 09:07 07/18/21 09:07 07/18/21 09:07 07/18/21 09:07 Body Mass Index (BMI) 33.7 Physical Exam Narrative Const alert and no apparent distress General Appearance: cooperative and comfortable Extremity There is diffuse left foot/ankle and leg swelling. Left foot s/p debridement to arch and heel, tissues are healthy and viable, granular, down to fascia layer, there is no streaking or odor, compartments remain soft to palpate, there is no fluctuance or bogginess on palpation, no drainage, no visible abscess, no cellulitis, no blistering present. At the plantar arch. There is devitalized exposed fascia?tendon which is devitalized. Hematogenous drainage only upon debridement. Periwound moisture and maceration is significant. General Extremity: Negative for clubbing or cyanosis to digits. Vasc normal capillary refill, no acute ischemic skin changes noted, normal temperature bilateral. Skin Skin Narrative: Wound Narrative: Neuro Neuro Narrative: Debridement Note Debridement Note Wound debrided: left heel, left arch Wound Grade/Stage: 3,3 Type of Debridement: Excisional debridement Anesthesia Used: 4% Lidocaine Solution Depth: in the subcutaneous layer Percentage of wound debrided: 100 Instrument Used: #15 blade Tissue Removed: fibrous, devitalized subcutaneous, biofilm, slough Severity: Fat Layer Exposed Amount of bleeding with debridement: Mild Bleeding Controlled with: Pressure Patient tolerated procedure: Patient tolerated procedure well Post-Debridement Measurements and Additional Note: Post-Debridement Measurements/Treatment WC - Nurse 1 - General Ulcer Assessment Start: 07/18/21 09:03 Freq: Status: Active Protocol: EVELYN Activity Type Activity Date Activity User E-Sign Co-Sign Detail Recorded Client Recorded Date Recorded By Document 07/18/21 09:07 JULIO C [id number] 07/18/21 09:21 DL 07/18/21 09:07 WC - Today's Visit Information Type of service Follow-up Visit (Physician/EXECUTIVE MEETING MANAGER ) Arrival Mode Wheelchair Transfer Assistance Manual Transfer Assist (Other) x2 Patient Identification Verified (Name & Yes ) Patient Requires Transmission-Based No Precautions Finger Stick Blood Sugar(mg/dl) (if 144 indicated): Blood Sugar Stated by Patient Height and Weight Body Mass Index (BMI) 33.7 BMI Classification Obese Vital Signs Temperature (97.8 F-99.1 F) 97.8 F Temperature Source Temporal Pulse Rate (60-100) 66 Pulse Location Monitor Respiratory Rate (12-18) 22 H Respiratory rate source Observation Blood Pressure (90/60-120/80) 127/61 H Blood Pressure Mean (mm Hg) 83 Source Monitor History Since Last Visit- (Skip if this is Patient's initial visit) Have you changed medications since your No last visit? Any new allergies or adverse reactions No Had a fall/change in ADL's that may No increase risk of falls Signs or symptoms of abuse and/or No neglect since last visit Have you been in the hospital since your No last visit? Has dressing in place as prescribed Yes Has compression in place as prescribed Yes Has offloadiing in place as prescribed Yes Experienced any changes in pain level or No management Pain Scale: 0-10 Numeric Is Patient Pain Free? Yes - Nurse 1 - General Ulcer Measurement Start: 07/18/21 09:03 Freq: Status: Active Protocol: Activity Type Activity Date Activity User E-Sign Co-Sign Detail Recorded Client Recorded Date Recorded By Document 07/18/21 09:07 DL [id number] 07/18/21 09:21 DL 07/18/21 09:07 Wound Center Nurse 1 4-left plantar arch -Current Size (cm) - Length 7.5 -Current Size (cm) - Width 8.5 -Current Size (cm) - Depth 0.6 -Total Square Cm 63.75 -Photo Taken Yes -Exudate Amt Large -Exudate Type Serosanguineous -Wound Margin Thickened -Granulation Amt Medium (34-66%) -Granulation Quality Red -Necrosis Amt Medium (34-66%) -Necrotic Tissue Type Adherent Slough -Structure Exposed N/A -Texture (Margaret-wound Skin Appearance) Callus, Localized Edema ,Scarring -Moisture (Margaret-wound Skin Appearance) Maceration -Color (Margaret-wound Skin Appearance) Hemosiderin Staining -Temperature (Margaret-wound Skin No Abnormality Appearance) (Pt Warm) -Tenderness on Palpation (Margaret-wound No Skin Appearance) -Ulcer Cleansing Soap and Water -Foul Odor after Cleansing No -Anesthetic Used 4% Lidocaine Solution #1 left heel -Current Size (cm) - Length 2.8 -Current Size (cm) - Width 3 -Current Size (cm) - Depth 1 -Total Square Cm 8.4 -Photo Taken Yes -Exudate Amt Large -Exudate Type Serosanguineous -Wound Margin Thickened -Granulation Amt Medium (34-66%) -Granulation Quality Red -Necrosis Amt Medium (34-66%) -Necrotic Tissue Type Adherent Slough -Structure Exposed N/A -Texture (Margaret-wound Skin Appearance) Localized Edema ,Scarring -Moisture (Margaert-wound Skin Appearance) Maceration -Color (Margaret-wound Skin Appearance) Hemosiderin Staining -Temperature (Margaret-wound Skin No Abnormality Appearance) (Pt Warm) -Ulcer Cleansing Soap and Water -Foul Odor after Cleansing No -Anesthetic Used 4% Lidocaine Solution Left Calf (cm) 48.5 Left Ankle (cm) 27.3 WC - Nurse 2 - General Ulcer CM Notes Start: 07/18/21 09:03 Freq: Status: Active Protocol: Activity Type Activity Date Activity User E-Sign Co-Sign Detail Recorded Client Recorded Date Recorded By Document 07/18/21 09:28 DANIEL [id number] 07/18/21 09:33 DANIEL 07/18/21 09:28 Wound Center Nurse 2 4-left plantar arch -Time 09:31 -Correct Patient Yes -Correct Side, Site, Position Yes -Correct Procedure Yes -Procedure Performed Yes -Type of Procedure Debridement -Clinical Debridement Muscle / Fascia -Tissue Removed Tendon -Post Debridement (cm) - Length 7.5 -Post Debridement (cm) - Width 8.5 -Post Debridement (cm) - Depth 0.6 -Total Square (Post) (cm) 63.75 -Area of Debridement (cm) - Length 7.5 -Area of Debridement (cm) - Width 8.5 -Total Square (Area) (cm) 63.75 -Tunneling No -Undermining/Tunneling No -Circular Undermining No -Wound/Ulcer Outcome Not Healed -Ulcer Cleansing Rinsed/ Irrigated with Saline -Foul Odor after Cleansing No -Bioengineered Tissue No -Bleeding Controlled with Pressure -Offloading Yes -Type of Offloading Knee Walker -Treatment Response Procedure Tolerated Well -Debridement - Subq, 1st 20sq cm No -Debridement - Muscle / Fascia, 1st Yes 20sq cm #1 left heel -Time 09:31 -Correct Patient Yes -Correct Side, Site, Position Yes -Correct Procedure Yes -Procedure Performed Yes -Type of Procedure Debridement -Clinical Debridement Subcutaneous -Tissue Removed Subcutaneous -Post Debridement (cm) - Length 2.8 -Post Debridement (cm) - Width 3.1 -Post Debridement (cm) - Depth 1 -Total Square (Post) (cm) 8.68 -Area of Debridement (cm) - Length 2.8 -Area of Debridement (cm) - Width 3.1 -Total Square (Area) (cm) 8.68 -Tunneling No -Undermining/Tunneling No -Circular Undermining No -Wound/Ulcer Outcome Not Healed -Ulcer Cleansing Rinsed/ Irrigated with Saline -Foul Odor after Cleansing No -Bioengineered Tissue No -Bleeding Controlled with Pressure -Offloading Yes -Type of Offloading Knee Walker -Treatment Response Procedure Tolerated Well -Debridement - Subq, 1st 20sq cm Yes Pain Scale: 0-10 Numeric Is Patient Pain Free? 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 insulin (2) Delayed wound healing: CODE(S): T14.8XXD - Other injury of unspecified body region, subsequent encounter (3) Bilateral edema of lower extremity: CODE(S): R60.0 - Localized edema (4) Cellulitis of left foot: CODE(S): L03.116 - Cellulitis of left lower limb (5) Tobacco abuse: CODE(S): Z72.0 - Tobacco use (6) Obesity: CODE(S): E66.9 - Obesity, unspecified QUALIFIERS: Obesity type: due to excess calories Obesity classification: adult class 1 (BMI 30 - 34.9) Serious obesity comorbidity presence: with serious comorbidity Body mass index: BMI 33.0-33.9 Qualified Code(s): E66.09 - Other obesity due to excess calories; Z68.33 - Body mass index [BMI] 33.0-33.9, adult (7) Difficulty in walking: CODE(S): R26.2 - Difficulty in walking, not elsewhere classified (8) Ulcer of left foot with necrosis of muscle: CODE(S): L97.523 - Non-pressure chronic ulcer of other part of left foot with necrosis of muscle (9) Localized edema: CODE(S): R60.0 - Localized edema PLAN: Patient seen and examined. I reviewed and discussed his case. Debridement was performed as noted in the clinical nursing panel. Dressing recommendation: To change 3 times a week with a wound VAC; 150 mmHg continuous. It is noted his maceration has resolved. Wash: Antibacterial soap and water. Avoid soaking. Saline alone is not recommended. Patient wound is noted to have improved with healthier appearance and there is no malodor. There are no local signs infection noted today. He was seen by infectious disease during his last hospital admission and he had surgery on 05-29-2021. His surgical cultures had MRSA, Enterococcus, klebs, Proteus and it was down to deep tissue. He completed a 2-week course of IV vancomycin and Unasyn and then followed up with 4 weeks of oral doxycycline and Augmentin with a stop date of 07-10-21. Offloading: To continue offloading with cam walker boot and strict use of knee roller. To use assistive device to maintain nonweightbearing status. Compliance was reiterated and it does not appear he has been able to successfully stay off of the ulcer. Failure to do so will likely contribute to the need for amputation. Patient relates he had follow-up appointment with his primary care provider, Priyanka Brown, and relates that she did not change any medication and stated he was doing okay. PCP is leaving the diabetes management up to his animated cartoons painter, Dr. Mykel Barraza. He was able to follow-up and recommendations were updated. Discussed importance of cleaning and maintaining foot both to prevent infection as well as to prevent future wounds. Discussed he is at higher risk for wounds due to his diabetes, neuropathy, hyperglycemia, obesity, swelling, and tobacco abuse. Discussed that he needs to cut back on his smoking, preferably quit, and better controlling his blood sugar to better optimize his healing. Patient has not improved his tobacco abuse or his hyperglycemia. Reviewed how pressure will impact the wound. Arterial studies were reviewed. Showing likely adequate perfusion for healing. Right LAI is 0.99 and left 1.18. Right toe brachial index 0.76 and left 0.71. Referral to Dr. Campos for potential venous and arterial intervention was provided today. He went for consultationon 04-11-21. Will recheck duplex to make sure normal posterior tibial flow into the area of the wound. normal prior LAI noted. Patient relates he has been smoking since he was 10 years old. Discussed impact smoking has on his vessels as well as impact on wound healing. Patient relates that he is unwilling to quit entirely but he will try to cut back. He does not want any medical assistance at this process. Edema management: tubigrip and aayush wrap. to elevate. To discuss potential water pill application with his primary care physician. Host factors: His multiple comorbidities are noted including diabetes and smoking history. Also recommend improvement in nutritional status which involves taking in adequate protein and also focusing on eating 5-10 whole foods daily. All questions answered. He understands below-knee amputation is an option as well if he cannot keep pressure off the site, if pain becomes intolerable, and if he no longer is able to proceed with a comprehensive wound healing plan. He defers at this time. Patient to follow up in 1 week or call sooner if status worsening or if questions. I answered all of his questions. This note was generated with [employer] dictation software. It may contain incorrect words, spelling, and punctuation that were not noted in checking the note before signing.
[2021-07-25 09:45] VITALS: BP 138/63; PULSE 71; RESP 18; TEMP 36.5; BMI 33.7
--- NOTE | 2021-07-25 11:22 | PN.PCM_ITS ---
History of Present Illness Date of Service: 07/25/21 Chief Complaint: left heel and arch ulcers History of Wound: Patient presents for chronic non healing wound to left plantar foot (heel and arch). A limb and life-threatening infection which required emergent surgical intervention on 05-29-2021. He then subsequently resided in the transitional care unit for wound care which she completed a course of IV antibiotics. He kept his wound vac intact and is unaware of the maceration and blister that is new today to the heel. He denies fever, chill, nausea, vomiting, pain. He is keeping weight off of his foot he reports. He has a knee roller at home. Progress of Wound: worse status Objective Data Objective Data Vital Signs: Vital Signs Temp Pulse Resp BP 97.7 F L 71 18 138/63 H 07/25/21 09:45 07/25/21 09:45 07/25/21 09:45 07/25/21 09:45 Body Mass Index (BMI) 33.7 Physical Exam Narrative Const alert and no apparent distress General Appearance: cooperative and comfortable Extremity There is diffuse left foot/ankle and leg swelling. Left foot s/p debridement to arch and heel, tissues are healthy and viable, granular, down to fascia layer, there is no streaking or odor, compartments remain soft to palpate, there is no fluctuance or bogginess on palpation, no drainage, no visible abscess, no cellulitis, no blistering present. At the plantar arch. There is devitalized exposed fascia?tendon which is devitalized. Hematogenous drainage only upon debridement. Periwound moisture and maceration is significant again today and worse. there is a full thickness blister noted to medial plantar heel with serosangenous drainage that is free of purulence, odor or deep tissue exposure. upon deroofement, there is granular base General Extremity: Negative for clubbing or cyanosis to digits. Vasc normal capillary refill, no acute ischemic skin changes noted, normal temperature bilateral. Skin Skin Narrative: Wound Narrative: Neuro Neuro Narrative: Debridement Note Debridement Note Wound debrided: Left heel, left arch Wound Grade/Stage: 3, 3 Type of Debridement: Excisional debridement Anesthesia Used: 4% Lidocaine Solution Depth: in the subcutaneous layer Percentage of wound debrided: 100 Instrument Used: #15 blade Tissue Removed: fibrous, devitalized subcutaneous, biofilm, slough Severity: Fat Layer Exposed Amount of bleeding with debridement: Mild Bleeding Controlled with: Pressure Patient tolerated procedure: Patient tolerated procedure well Post-Debridement Measurements and Additional Note: Post-Debridement Measurements/Treatment WC - Nurse 1 - General Ulcer Assessment Start: 07/18/21 09:03 Freq: Status: Active Protocol: EVELYN Activity Type Activity Date Activity User E-Sign Co-Sign Detail Recorded Client Recorded Date Recorded By Document 07/18/21 09:07 DL [id number] 07/18/21 09:21 DL Document 07/25/21 09:45 RB [id number] 07/25/21 09:48 RB 07/18/21 07/25/21 09:07 09:45 WC - Today's Visit Information Type of service Follow-up Visit Follow-up Visit (Physician/HOME MORTGAGE DISCLOSURE ACT SPECIALIST (Physician/HOME MORTGAGE DISCLOSURE ACT SPECIALIST ) ) Arrival Mode Wheelchair Wheelchair Transfer Assistance Manual Manual Transfer Assist (Other) x2 Patient Identification Verified (Name & Yes Yes ) Patient Requires Transmission-Based No Precautions Finger Stick Blood Sugar(mg/dl) (if 144 136 indicated): Blood Sugar Stated by Stated by Patient Patient Height and Weight Body Mass Index (BMI) 33.7 33.7 BMI Classification Obese Obese Vital Signs Temperature (97.8 F-99.1 F) 97.8 F 97.7 F L Temperature Source Temporal Temporal Pulse Rate (60-100) 66 71 Pulse Location Monitor Monitor Respiratory Rate (12-18) 22 H 18 Respiratory rate source Observation Observation Blood Pressure (90/60-120/80) 127/61 H 138/63 H Blood Pressure Mean (mm Hg) 83 88 Source Monitor Monitor Position Semi-Fowlers Blood Pressure Location Left Arm History Since Last Visit- (Skip if this is Patient's initial visit) Have you changed medications since your No No last visit? Any new allergies or adverse reactions No No Had a fall/change in ADL's that may No No increase risk of falls Signs or symptoms of abuse and/or No No neglect since last visit Have you been in the hospital since your No No last visit? Has dressing in place as prescribed Yes Yes Has compression in place as prescribed Yes Yes Has offloadiing in place as prescribed Yes No Experienced any changes in pain level or No No management Pain Scale: 0-10 Numeric Is Patient Pain Free? Yes No JANESSA - Nurse 1 - General Ulcer Measurement Start: 07/18/21 09:03 Freq: Status: Active Protocol: Activity Type Activity Date Activity User E-Sign Co-Sign Detail Recorded Client Recorded Date Recorded By Document 07/18/21 09:07 DL [id number] 07/18/21 09:21 DL Document 07/25/21 09:45 RB [id number] 07/25/21 09:48 RB 07/18/21 07/25/21 09:07 09:45 Wound Center Nurse 1 4-left plantar arch -Combined with other wound No -Current Size (cm) - Length 7.5 7 -Current Size (cm) - Width 8.5 6 -Current Size (cm) - Depth 0.6 0.8 -Total Square Cm 63.75 42 -Photo Taken Yes -Tunneling No -Undermining/Tunneling Yes -Undermining/Tunneling Starts (O'clock 9 ) -Undermining/Tunneling Ends (O'clock) 12 -Maximum Distance (cm) 2.2 -Exudate Amt Large Large -Exudate Type Serosanguineous Serosanguineous -Wound Margin Thickened Thickened & Rolled Under -Granulation Amt Medium (34-66%) Medium (34-66%) -Granulation Quality [place] -Slough/Fibrin Yes -Necrosis Amt Medium (34-66%) Medium (34-66%) -Necrotic Tissue Type Adherent Slough Adherent Slough -Structure Exposed N/A N/A -Texture (Margaret-wound Skin Appearance) Callus, Localized Edema Localized Edema ,Scarring -Moisture (Margaret-wound Skin Appearance) Maceration Maceration -Color (Margaret-wound Skin Appearance) Hemosiderin Assessed Staining -Temperature (Margaret-wound Skin No Abnormality No Abnormality Appearance) (Pt Warm) (Pt Warm) -Tenderness on Palpation (Margaret-wound No No Skin Appearance) -Ulcer Cleansing Soap and Water Wound Cleanser -Foul Odor after Cleansing No No -Anesthetic Used 4% Lidocaine 5% Lidocaine Solution Gel #1 left heel cluster -Current Size (cm) - Length 2.8 3.5 -Current Size (cm) - Width 3 4 -Current Size (cm) - Depth 1 1.6 -Total Square Cm 8.4 14.0 -Photo Taken Yes -Tunneling No -Undermining/Tunneling No -Circular Undermining No -Exudate Amt Large Large -Exudate Type Serosanguineous Serosanguineous -Wound Margin Thickened Thickened & Rolled Under -Granulation Amt Medium (34-66%) Medium (34-66%) -Granulation Quality [place] -Slough/Fibrin Yes -Necrosis Amt Medium (34-66%) Medium (34-66%) -Necrotic Tissue Type Adherent Slough Adherent Slough -Structure Exposed N/A N/A -Texture (Margaret-wound Skin Appearance) Localized Edema Localized Edema ,Scarring -Moisture (Margaret-wound Skin Appearance) Maceration Maceration -Color (Margaret-wound Skin Appearance) Hemosiderin Assessed Staining -Temperature (Margaret-wound Skin No Abnormality No Abnormality Appearance) (Pt Warm) (Pt Warm) -Tenderness on Palpation (Margaret-wound No Skin Appearance) -Ulcer Cleansing Soap and Water -Foul Odor after Cleansing No No -Anesthetic Used 4% Lidocaine 5% Lidocaine Solution Gel -Wound Comment(s) maceration of L plantar foot and heel Left Calf (cm) 48.5 Left Ankle (cm) 27.3 WC - Nurse 2 - General Ulcer CM Notes Start: 07/18/21 09:03 Freq: Status: Active Protocol: Activity Type Activity Date Activity User E-Sign Co-Sign Detail Recorded Client Recorded Date Recorded By Document 07/18/21 09:28 [id number] 07/18/21 09:33 Document 07/25/21 09:53 [id number] 07/25/21 09:58 07/18/21 07/25/21 09:28 09:53 Wound Center Nurse 2 4-left plantar arch -Time 09:31 09:54 -Correct Patient Yes Yes -Correct Side, Site, Position Yes Yes -Correct Procedure Yes Yes -Procedure Performed Yes Yes -Type of Procedure Debridement Debridement -Clinical Debridement Muscle / Fascia Subcutaneous -Tissue Removed Tendon Subcutaneous -Post Debridement (cm) - Length 7.5 7.1 -Post Debridement (cm) - Width 8.5 6 -Post Debridement (cm) - Depth 0.6 0.8 -Total Square (Post) (cm) 63.75 42.6 -Area of Debridement (cm) - Length 7.5 7.1 -Area of Debridement (cm) - Width 8.5 6.0 -Total Square (Area) (cm) 63.75 42.60 -Tunneling No No -Undermining/Tunneling No No -Circular Undermining No No -Wound/Ulcer Outcome Not Healed Not Healed -Ulcer Cleansing Rinsed/ Rinsed/ Irrigated with Irrigated with Saline Saline -Foul Odor after Cleansing No No -Bioengineered Tissue No No -Bleeding Controlled with Pressure Pressure -Offloading Yes Yes -Type of Offloading Knee Walker Surgical Shoe -Treatment Response Procedure Procedure Tolerated Well Tolerated Well -Debridement - Subq, 1st 20sq cm No Yes -Debridement, SubQ, ea addt'l 20sq cm 3 or part thereof -Debridement - Muscle / Fascia, 1st Yes 20sq cm #1 left heel cluster -Time 09:31 09:55 -Correct Patient Yes Yes -Correct Side, Site, Position Yes Yes -Correct Procedure Yes Yes -Procedure Performed Yes Yes -Type of Procedure Debridement Debridement -Clinical Debridement Subcutaneous Subcutaneous -Tissue Removed Subcutaneous Subcutaneous -Post Debridement (cm) - Length 2.8 3.8 -Post Debridement (cm) - Width 3.1 6.4 -Post Debridement (cm) - Depth 1 1.6 -Total Square (Post) (cm) 8.68 24.32 -Area of Debridement (cm) - Length 2.8 3.8 -Area of Debridement (cm) - Width 3.1 6.4 -Total Square (Area) (cm) 8.68 24.32 -Tunneling No No -Undermining/Tunneling No No -Circular Undermining No No -Wound/Ulcer Outcome Not Healed Not Healed -Ulcer Cleansing Rinsed/ Rinsed/ Irrigated with Irrigated with Saline Saline -Foul Odor after Cleansing No No -Bioengineered Tissue No No -Bleeding Controlled with Pressure Pressure -Offloading Yes No -Type of Offloading Knee Walker -Treatment Response Procedure Procedure Tolerated Well Tolerated Well -Debridement - Subq, 1st 20sq cm Yes No -Debridement, SubQ, ea addt'l 20sq cm 1 or part thereof Pain Scale: 0-10 Numeric Is Patient Pain Free? Yes Yes WC - Nurse 3 - General Ulcer D/C NN Start: 07/18/21 09:03 Freq: Status: Active Protocol: Activity Type Activity Date Activity User E-Sign Co-Sign Detail Recorded Client Recorded Date Recorded By Document 07/18/21 11:31 DL [id number] 07/18/21 11:32 DL Edit Result 07/18/21 11:31 DL (1) [id number] 07/19/21 18:37 PL (1) 4-left plantar arch - NPWT Application Charge NPWT </= 50 sq cm => NPWT & Debridement ($) => (nc) #1 left heel cluster - NPWT Application Charge NPWT </= 50 sq cm => NPWT & Debridement ($) => (nc) 07/18/21 11:31 Wound Care Nurse 3 4-left plantar arch -Ulcer Cleansing Soap and Water -Foul Odor after Cleansing No -Negative Pressure Wound Therapy Continue -Setting (mmHg) 125 -Negative Pressure is Continuous -Primary Dressing Covered/Secured with Dry Gauze & Roll Gauze -NPWT Application Charge NPWT & Debridement (nc ) #1 left heel cluster -Ulcer Cleansing Soap and Water -Foul Odor after Cleansing No -Negative Pressure Wound Therapy Continue -Setting (mmHg) 125 -Negative Pressure is Continuous -Primary Dressing Covered/Secured with Dry Gauze & Roll Gauze -NPWT Application Charge NPWT & Debridement (nc ) Left -Compression Wrap Kevin Wrap Treatment Response Procedure Tolerated Well Pain Scale: 0-10 Numeric Is Patient Pain Free? 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 insulin use: with [facility] use Qualified Code(s): E11.42 - Type 2 diabetes mellitus with diabetic polyneuropathy; Z79.4 - emt intermediate (current) use of insulin (2) Delayed wound healing: CODE(S): T14.8XXD - Other injury of unspecified body region, subsequent encounter (3) Bilateral edema of lower extremity: CODE(S): R60.0 - Localized edema (4) Cellulitis of left foot: CODE(S): L03.116 - Cellulitis of left lower limb (5) Tobacco abuse: CODE(S): Z72.0 - Tobacco use (6) Obesity: CODE(S): E66.9 - Obesity, unspecified QUALIFIERS: Obesity type: due to excess calories Obesity classification: adult class 1 (BMI 30 - 34.9) Serious obesity comorbidity presence: with serious comorbidity Body mass index: BMI 33.0-33.9 Qualified Code(s): E66.09 - Other obesity due to excess calories; Z68.33 - Body mass index [BMI] 33.0-33.9, adult (7) Difficulty in walking: CODE(S): R26.2 - Difficulty in walking, not elsewhere classified (8) Ulcer of left foot with necrosis of muscle: CODE(S): L97.523 - Non-pressure chronic ulcer of other part of left foot with necrosis of muscle (9) Localized edema: CODE(S): R60.0 - Localized edema (10) Maceration of skin: CODE(S): L98.8 - Other specified disorders of the skin and subcutaneous tissue (11) Blister of left foot: CODE(S): S90.822A - Blister (nonthermal), left foot, initial encounter PLAN: Patient seen and examined. I reviewed and discussed his case. Debridement was performed as noted in the clinical nursing panel. His new blister site is noted and this was drained in the removed. He has significant devitalized loss of viable tissue of the left foot and we discussed at length today the benefits and indications for continued wound care versus below-knee amputation. I offered him a referral and he defers today. Dressing recommendation: Change dressing daily with Dakin wet-to-dry. Wound VAC is on hold until maceration is improved. Wash: Antibacterial soap and water. Avoid soaking. Saline alone is not recommended. Patient wound is noted to have improved with healthier appearance and there is no malodor. There are no local signs infection noted today. He was seen by infectious disease during his last hospital admission and he had surgery on 05-29-2021. His surgical cultures had MRSA, Enterococcus, klebs, Proteus and it was down to deep tissue. He completed a 2-week course of IV vancomycin and Unasyn and then followed up with 4 weeks of oral doxycycline and Augmentin with a stop date of 07-10-21. Offloading: To continue offloading with cam walker boot and strict use of knee roller. To use assistive device to maintain nonweightbearing status. Compliance was reiterated and it does not appear he has been able to successfully stay off of the ulcer. Failure to do so will likely contribute to the need for amputation. Patient relates he had follow-up appointment with his primary care provider, Priyanka Brown, and relates that she did not change any medication and stated he was doing okay. PCP is leaving the diabetes management up to his behavioral medical director, Dr. Mykel Barraza. He was able to follow-up and recommendations were updated. Discussed importance of cleaning and maintaining foot both to prevent infection as well as to prevent future wounds. Discussed he is at higher risk for wounds due to his diabetes, neuropathy, hyperglycemia, obesity, swelling, and tobacco abuse. Discussed that he needs to cut back on his smoking, preferably quit, and better controlling his blood sugar to better optimize his healing. Patient has not improved his tobacco abuse or his hyperglycemia. Reviewed how pressure will impact the wound. Arterial studies were reviewed. Showing likely adequate perfusion for healing. Right LAI is 0.99 and left 1.18. Right toe brachial index 0.76 and left 0.71. Referral to Dr. Campos for potential venous and arterial intervention was provided today. He went for consultationon 04-11-21. Will recheck duplex to make sure normal posterior tibial flow into the area of the wound. normal prior LAI noted. Patient relates he has been smoking since he was 10 years old. Discussed impact smoking has on his vessels as well as impact on wound healing. Patient relates that he is unwilling to quit entirely but he will try to cut back. He does not want any medical assistance at this process. Edema management: tubigrip and kevin wrap. to elevate. To discuss potential water pill application with his primary care physician. Host factors: His multiple comorbidities are noted including diabetes and smoking history. Also recommend improvement in nutritional status which involves taking in adequate protein and also focusing on eating 5-10 whole foods daily. All questions answered. He understands below-knee amputation is an option as well if he cannot keep pressure off the site, if pain becomes intolerable, and if he no longer is able to proceed with a comprehensive wound healing plan. He defers at this time. Patient to follow up in 1 week or call sooner if status worsening or if questions. I answered all of his questions. This note was generated with [employer] dictation software. It may contain incorrect words, spelling, and punctuation that were not noted in checking the note before signing.
[2021-08-01 09:32] VITALS: BP 131/60; PULSE 66; RESP 18; TEMP 36.1; BMI 33.7
--- NOTE | 2021-08-01 11:41 | PN.PCM_ITS ---
History of Present Illness Date of Service: 08/01/21 Chief Complaint: left heel and arch ulcers History of Wound: Patient presents for chronic non healing wound to left plantar foot (heel and arch). A limb and life-threatening infection which required emergent surgical intervention on 05-29-2021. He then subsequently resided in the transitional care unit for wound care which she completed a course of IV antibiotics. He kept his wound vac intact and is unaware of the maceration and blister that is new today to the heel. He denies fever, chill, nausea, vomiting, pain. He is keeping weight off of his foot he reports. He has a knee roller at home.He has been changing as advised. Progress of Wound: improved Objective Data Objective Data Vital Signs: Vital Signs Temp Pulse Resp BP 97.0 F L 66 18 131/60 H 08/01/21 09:32 08/01/21 09:32 08/01/21 09:32 08/01/21 09:32 Oxygen Delivery Method Room Air Body Mass Index (BMI) 33.7 Physical Exam Narrative Const alert and no apparent distress General Appearance: cooperative and comfortable Extremity There is diffuse left foot/ankle and leg swelling. Left foot s/p debridement to arch and heel, tissues are healthy and viable, granular, down to fascia layer, there is no streaking or odor, compartments remain soft to palpate, there is no fluctuance or bogginess on palpation, no drainage, no visible abscess, no cellulitis, no blistering present. At the plantar arch. There is devitalized exposed fascia?tendon which is devitalized. Hematogenous drainage only upon debridement. Periwound moisture and maceration is decreased but still present. there full epithelialization at the prior blister site that was identified last week. General Extremity: Negative for clubbing or cyanosis to digits. Vasc normal capillary refill, no acute ischemic skin changes noted, normal temperature bilateral. Skin Skin Narrative: Wound Narrative: Neuro Neuro Narrative: Debridement Note Debridement Note Wound debrided: left heel, left arch Wound Grade/Stage: 3,3 Type of Debridement: Excisional debridement Anesthesia Used: 4% Lidocaine Solution Depth: in the subcutaneous layer Percentage of wound debrided: 100 Instrument Used: #15 blade Tissue Removed: fibrous, devitalized subcutaneous, biofilm, slough Severity: Fat Layer Exposed Amount of bleeding with debridement: Mild Bleeding Controlled with: Pressure Patient tolerated procedure: Patient tolerated procedure well Post-Debridement Measurements and Additional Note: Post-Debridement Measurements/Treatment - Nurse 1 - General Ulcer Assessment Start: 07/18/21 09:03 Freq: Status: Active Protocol: EVELYN Activity Type Activity Date Activity User E-Sign Co-Sign Detail Recorded Client Recorded Date Recorded By Document 07/18/21 09:07 DL [id number] 07/18/21 09:21 DL Document 07/25/21 09:45 RB [id number] 07/25/21 09:48 RB Document 08/01/21 09:32 MT [id number] 08/01/21 09:46 MT 07/18/21 07/25/21 08/01/21 09:07 09:45 09:32 - Today's Visit Information Type of service Follow-up Visit Follow-up Visit Follow-up Visit (Physician/MEDICAL VIDEOGRAPHER (Physician/MEDICAL VIDEOGRAPHER (Physician/MEDICAL VIDEOGRAPHER ) ) ) Arrival Mode Wheelchair Wheelchair Ambulatory, Wheelchair Transfer Assistance Manual Manual Transfer Assist (Other) x2 Accompanied by self Patient Identification Verified (Name & Yes Yes Yes ) Patient Requires Transmission-Based No Precautions Finger Stick Blood Sugar(mg/dl) (if [phone] indicated): Blood Sugar Stated by Stated by Stated by Patient Patient Patient Height and Weight Body Mass Index (BMI) 33.7 33.7 33.7 BMI Classification Obese Obese Obese Vital Signs Temperature (97.8 F-99.1 F) 97.8 F 97.7 F L 97.0 F L Temperature Source Temporal Temporal Temporal Pulse Rate (60-100) 66 71 66 Pulse Location Monitor Monitor Monitor Respiratory Rate (12-18) 22 H 18 18 Respiratory rate source Observation Observation Observation Oxygen Delivery Method Room Air Blood Pressure (90/60-120/80) 127/61 H 138/63 H 131/60 H Blood Pressure Mean (mm Hg) 83 88 83 Source Monitor Monitor Monitor Position Semi-Fowlers Sitting Blood Pressure Location Left Arm Right Arm History Since Last Visit- (Skip if this is Patient's initial visit) Have you changed medications since your No No last visit? Any new allergies or adverse reactions No No Had a fall/change in ADL's that may No No increase risk of falls Signs or symptoms of abuse and/or No No neglect since last visit Have you been in the hospital since your No No last visit? Has dressing in place as prescribed Yes Yes Yes Has compression in place as prescribed Yes Yes Yes Has offloadiing in place as prescribed Yes No Yes Experienced any changes in pain level or No No Yes management Left Footwear No Footwear Right Footwear Slipper Pain Scale: 0-10 Numeric Is Patient Pain Free? Yes No Yes WC - Nurse 1 - General Ulcer Measurement Start: 07/18/21 09:03 Freq: Status: Active Protocol: Activity Type Activity Date Activity User E-Sign Co-Sign Detail Recorded Client Recorded Date Recorded By Document 07/18/21 09:07 DL [id number] 07/18/21 09:21 DL Document 07/25/21 09:45 RB [id number] 07/25/21 09:48 RB Document 08/01/21 09:32 HI [id number] 08/01/21 09:46 MT 07/18/21 07/25/21 08/01/21 09:07 09:45 09:32 Wound Center Nurse 1 4-left plantar arch -Combined with other wound No -Current Size (cm) - Length 7.5 7 6.5 -Current Size (cm) - Width 8.5 6 5.2 -Current Size (cm) - Depth 0.6 0.8 0.3 -Total Square Cm 63.75 42 33.80 -Photo Taken Yes -Tunneling No -Undermining/Tunneling Yes -Undermining/Tunneling Starts (O'clock 9 ) -Undermining/Tunneling Ends (O'clock) 12 -Maximum Distance (cm) 2.2 -Exudate Amt Large Large Medium -Exudate Type Serosanguineous Serosanguineous Serosanguineous -Wound Margin Thickened Thickened & Thickened & Rolled Under Rolled Under -Granulation Amt Medium (34-66%) Medium (34-66%) Medium (34-66%) -Granulation Quality [place] Pale,[place] -Slough/Fibrin Yes -Necrosis Amt Medium (34-66%) Medium (34-66%) Medium (34-66%) -Necrotic Tissue Type Adherent Slough Adherent Slough Adherent Slough -Structure Exposed N/A N/A -Texture (Margaret-wound Skin Appearance) Callus, Localized Edema Assessed Localized Edema ,Scarring -Moisture (Margaret-wound Skin Appearance) Maceration Maceration Assessed -Color (Margaret-wound Skin Appearance) Hemosiderin Assessed Assessed Staining -Temperature (Margaret-wound Skin No Abnormality No Abnormality No Abnormality Appearance) (Pt Warm) (Pt Warm) (Pt Warm) -Tenderness on Palpation (Margaret-wound No No No Skin Appearance) -Ulcer Cleansing Soap and Water Wound Cleanser Rinsed/ Irrigated with Saline -Foul Odor after Cleansing No No No -Anesthetic Used 4% Lidocaine 5% Lidocaine 4% Lidocaine Solution Gel Solution #1 left heel cluster -Current Size (cm) - Length 2.8 3.5 3.0 -Current Size (cm) - Width 3 4 3.5 -Current Size (cm) - Depth 1 1.6 2.0 -Total Square Cm 8.4 14.0 10.50 -Photo Taken Yes -Tunneling No -Undermining/Tunneling No -Circular Undermining No -Exudate Amt Large Large Medium -Exudate Type Serosanguineous Serosanguineous Serosanguineous -Wound Margin Thickened Thickened & Thickened & Rolled Under Rolled Under -Granulation Amt Medium (34-66%) Medium (34-66%) Medium (34-66%) -Granulation Quality [place] Pale,[place] -Slough/Fibrin Yes -Necrosis Amt Medium (34-66%) Medium (34-66%) Medium (34-66%) -Necrotic Tissue Type Adherent Slough Adherent Slough Adherent Slough -Structure Exposed N/A N/A -Texture (Margaret-wound Skin Appearance) Localized Edema Localized Edema Assessed ,Scarring -Moisture (Margaret-wound Skin Appearance) Maceration Maceration Assessed -Color (Margaret-wound Skin Appearance) Hemosiderin Assessed Assessed Staining -Temperature (Margaret-wound Skin No Abnormality No Abnormality No Abnormality Appearance) (Pt Warm) (Pt Warm) (Pt Warm) -Tenderness on Palpation (Margaret-wound No No Skin Appearance) -Ulcer Cleansing Soap and Water Rinsed/ Irrigated with Saline -Foul Odor after Cleansing No No No -Anesthetic Used 4% Lidocaine 5% Lidocaine 4% Lidocaine Solution Gel Solution -Wound Comment(s) maceration of L plantar foot and heel Left Calf (cm) 48.5 48.5 Left Ankle (cm) 27.3 27.3 WC - Nurse 2 - General Ulcer CM Notes Start: 03/02/22 09:03 Freq: Status: Active Protocol: Activity Type Activity Date Activity User E-Sign Co-Sign Detail Recorded Client Recorded Date Recorded By Document 07/18/21 09:28 JF [id number] 07/18/21 09:33 JF Document 07/25/21 09:53 JF [id number] 07/25/21 09:58 JF Edit Result 07/25/21 09:53 JF (1) [id number] 07/26/21 06:54 PL Document 08/01/21 09:54 JF [id number] 08/01/21 09:59 JF (1) #1 left heel cluster - Debridement, SubQ, ea addt'l 20sq cm 1 => or part thereof 07/18/21 07/25/21 08/01/21 09:28 09:53 09:54 Wound Center Nurse 2 4-left plantar arch -Time 09:31 09:54 09:55 -Correct Patient Yes Yes Yes -Correct Side, Site, Position Yes Yes Yes -Correct Procedure Yes Yes Yes -Procedure Performed Yes Yes Yes -Type of Procedure Debridement Debridement Debridement -Clinical Debridement Muscle / Fascia Subcutaneous Subcutaneous -Tissue Removed Tendon Subcutaneous Subcutaneous -Post Debridement (cm) - Length 7.5 7.1 6.5 -Post Debridement (cm) - Width 8.5 6 5.3 -Post Debridement (cm) - Depth 0.6 0.8 0.3 -Total Square (Post) (cm) 63.75 42.6 34.45 -Area of Debridement (cm) - Length 7.5 7.1 6.5 -Area of Debridement (cm) - Width 8.5 6.0 5.3 -Total Square (Area) (cm) 63.75 42.60 34.45 -Tunneling No No No -Undermining/Tunneling No No No -Circular Undermining No No No -Wound/Ulcer Outcome Not Healed Not Healed Not Healed -Ulcer Cleansing Rinsed/ Rinsed/ Rinsed/ Irrigated with Irrigated with Irrigated with Saline Saline Saline -Foul Odor after Cleansing No No No -Bioengineered Tissue No No No -Bleeding Controlled with Pressure Pressure Pressure -Offloading Yes Yes No -Type of Offloading Knee Walker Surgical Shoe -Treatment Response Procedure Procedure Procedure Tolerated Well Tolerated Well Tolerated Well -Debridement - Subq, 1st 20sq cm No Yes No -Debridement, SubQ, ea addt'l 20sq cm 3 or part thereof -Debridement - Muscle / Fascia, 1st Yes 20sq cm #1 left heel cluster -Time 09:31 09:55 09:55 -Correct Patient Yes Yes Yes -Correct Side, Site, Position Yes Yes Yes -Correct Procedure Yes Yes Yes -Procedure Performed Yes Yes Yes -Type of Procedure Debridement Debridement Debridement -Clinical Debridement Subcutaneous Subcutaneous Subcutaneous -Tissue Removed Subcutaneous Subcutaneous Subcutaneous -Post Debridement (cm) - Length 2.8 3.8 3.1 -Post Debridement (cm) - Width 3.1 6.4 3.5 -Post Debridement (cm) - Depth 1 1.6 2.0 -Total Square (Post) (cm) 8.68 24.32 10.85 -Area of Debridement (cm) - Length 2.8 3.8 3.1 -Area of Debridement (cm) - Width 3.1 6.4 3.5 -Total Square (Area) (cm) 8.68 24.32 10.85 -Tunneling No No No -Undermining/Tunneling No No No -Circular Undermining No No No -Wound/Ulcer Outcome Not Healed Not Healed Not Healed -Ulcer Cleansing Rinsed/ Rinsed/ Rinsed/ Irrigated with Irrigated with Irrigated with Saline Saline Saline -Foul Odor after Cleansing No No No -Bioengineered Tissue No No No -Bleeding Controlled with Pressure Pressure Pressure -Offloading Yes No No -Type of Offloading Knee Walker -Treatment Response Procedure Procedure Procedure Tolerated Well Tolerated Well Tolerated Well -Debridement - Subq, 1st 20sq cm Yes No Yes -Debridement, SubQ, ea addt'l 20sq cm 2 or part thereof Pain Scale: 0-10 Numeric Is Patient Pain Free? Yes Yes Yes WC - Nurse 3 - General Ulcer D/C NN Start: 07/18/21 09:03 Freq: Status: Active Protocol: Activity Type Activity Date Activity User E-Sign Co-Sign Detail Recorded Client Recorded Date Recorded By Document 07/18/21 11:31 DL [id number] 07/18/21 11:32 DL Edit Result 07/18/21 11:31 DL (1) [id number] 07/19/21 18:37 PL Document 07/25/21 11:49 DL [id number] 07/25/21 11:50 DL Document 08/01/21 10:04 DL [id number] 08/01/21 10:08 DL (1) 4-left plantar arch - NPWT Application Charge NPWT </= 50 sq cm => NPWT & Debridement ($) => (nc) #1 left heel cluster - NPWT Application Charge NPWT </= 50 sq cm => NPWT & Debridement ($) => (nc) 07/18/21 07/25/21 08/01/21 11:31 11:49 10:04 Wound Care Nurse 3 4-left plantar arch -Ulcer Cleansing Soap and Water Soap and Water Rinsed/ Irrigated with Saline -Foul Odor after Cleansing No No No -Negative Pressure Wound Therapy Continue -Setting (mmHg) 125 -Negative Pressure is Continuous -Primary Dressing Applied Aquacel AG 4x4 -Primary Dressing Covered/Secured with Dry Gauze & Dry Gauze & Dry Gauze & Roll Gauze Roll Gauze, Roll Gauze, Secured with Secured with Tape Tape -Other Covering superabsorber -NPWT Application Charge NPWT & Debridement (nc ) -Aquacel AG 4x4 1 #1 left heel cluster -Ulcer Cleansing Soap and Water Rinsed/ Irrigated with Saline -Foul Odor after Cleansing No No -Negative Pressure Wound Therapy Continue -Setting (mmHg) 125 -Negative Pressure is Continuous -Other Dressing aquacel ag -Primary Dressing Covered/Secured with Dry Gauze & Dry Gauze & Roll Gauze Roll Gauze, Secured with Tape -NPWT Application Charge NPWT & Debridement (nc ) Left -Compression Wrap Kevin Wrap Kevin Wrap Treatment Response Procedure Procedure Procedure Tolerated Well Tolerated Well Tolerated Well Pain Scale: 0-10 Numeric Is Patient Pain Free? Yes Yes Yes WC - Visit Discharge Discharge Condition Stable Stable Stable Ambulatory Status Wheelchair Wheelchair Wheelchair Notes: Pt to start Dakins at home. Vac on hold. Facility Type Home Health [facility] Orders Sent Yes Yes Yes Assessment/Plan Assessment/Plan (1) Type 2 diabetes mellitus with diabetic polyneuropathy: CODE(S): E11.42 - Type 2 diabetes mellitus with diabetic polyneuropathy QUALIFIERS: Diabetes mellitus chcf insulin use: with ad terminal makeup operator use Qualified Code(s): E11.42 - Type 2 diabetes mellitus with diabetic polyneuropathy; Z79.4 - ad terminal makeup operator (current) use of insulin (2) Delayed wound healing: CODE(S): T14.8XXD - Other injury of unspecified body region, subsequent encounter (3) Bilateral edema of lower extremity: CODE(S): R60.0 - Localized edema (4) Cellulitis of left foot: CODE(S): L03.116 - Cellulitis of left lower limb (5) Tobacco abuse: CODE(S): Z72.0 - Tobacco use (6) Obesity: CODE(S): E66.9 - Obesity, unspecified QUALIFIERS: Obesity type: due to excess calories Obesity classification: adult class 1 (BMI 30 - 34.9) Serious obesity comorbidity presence: with serious comorbidity Body mass index: BMI 33.0-33.9 Qualified Code(s): E66.09 - Other obesity due to excess calories; Z68.33 - Body mass index [BMI] 33.0-33.9, adult (7) Difficulty in walking: CODE(S): R26.2 - Difficulty in walking, not elsewhere classified (8) Ulcer of left foot with necrosis of muscle: CODE(S): L97.523 - Non-pressure chronic ulcer of other part of left foot with necrosis of muscle (9) Localized edema: CODE(S): R60.0 - Localized edema (10) Maceration of skin: CODE(S): L98.8 - Other specified disorders of the skin and subcutaneous tissue (11) Blister of left foot: CODE(S): S90.822A - Blister (nonthermal), left foot, initial encounter PLAN: Patient seen and examined. I reviewed and discussed his case. Debridement was performed as noted in the clinical nursing panel. His blister healed. Dressing recommendation: Change dressing daily with Dakin wet-to-dry. Wound VAC is on hold until maceration is improved. Wash: Antibacterial soap and water. Avoid soaking. Saline alone is not recommended. Patient wound is noted to have improved with healthier appearance and there is no malodor. There are no local signs infection noted today. He was seen by infectious disease during his last hospital admission and he had surgery on 05-29-2021. His surgical cultures had MRSA, Enterococcus, klebs, Proteus and it was down to deep tissue. He completed a 2-week course of IV vancomycin and Unasyn and then followed up with 4 weeks of oral doxycycline and Augmentin with a stop date of 07-10-21. Offloading: To continue offloading with cam walker boot and strict use of knee roller. To use assistive device to maintain nonweightbearing status. Compliance was reiterated and it does not appear he has been able to successfully stay off of the ulcer. Failure to do so will likely contribute to the need for amputation. He is amendable to have a total contact cast applied next week if the maceration is still improved. The benefits indications and anticipated use and management were discussed. Patient relates he had follow-up appointment with his primary care provider, Priyanka Brown, and relates that she did not change any medication and stated he was doing okay. PCP is leaving the diabetes management up to his jumpbasting canvas baster, Dr. Mykel Barraza. He was able to follow-up and recommendations were updated. Discussed importance of cleaning and maintaining foot both to prevent infection as well as to prevent future wounds. Discussed he is at higher risk for wounds due to his diabetes, neuropathy, hyperglycemia, obesity, swelling, and tobacco abuse. Discussed that he needs to cut back on his smoking, preferably quit, and better controlling his blood sugar to better optimize his healing. Patient has not improved his tobacco abuse or his hyperglycemia. Reviewed how pressure will impact the wound. Arterial studies were reviewed. Showing likely adequate perfusion for healing. Right LAI is 0.99 and left 1.18. Right toe brachial index 0.76 and left 0.71. Referral to Dr. Campos for potential venous and arterial intervention was provided today. He went for consultationon 04-11-21. Will recheck duplex to make sure normal posterior tibial flow into the area of the wound. normal prior LAI noted. Patient relates he has been smoking since he was 10 years old. Discussed impact smoking has on his vessels as well as impact on wound healing. Patient relates that he is unwilling to quit entirely but he will try to cut back. He does not want any medical assistance at this process. Edema management: tubigrip and kevin wrap. to elevate. To discuss potential water pill application with his primary care physician. Host factors: His multiple comorbidities are noted including diabetes and smoking history. Also recommend improvement in nutritional status which involves taking in adequate protein and also focusing on eating 5-10 whole foods daily. All questions answered. He understands below-knee amputation is an option as well if he cannot keep pressure off the site, if pain becomes intolerable, and if he no longer is able to proceed with a comprehensive wound healing plan. He defers at this time. Patient to follow up in 1 week or call sooner if status worsening or if questions. I answered all of his questions. This note was generated with [employer] software. It may contain incorrect words, spelling, and punctuation that were not noted in checking the note before signing.
[2021-08-08 09:51] VITALS: TEMP 36.1; BMI 33.7
--- NOTE | 2021-08-08 10:17 | PCM.WC.PN ---
History of Present Illness Date of Service: 08/08/21 Chief Complaint: left heel and arch ulcers History of Wound: Patient presents for chronic non healing wound to left plantar foot (heel and arch). A limb and life-threatening infection which required emergent surgical intervention on 05-29-2021. He then subsequently resided in the transitional care unit for wound care which she completed a course of IV antibiotics. He changed his dressing as advised and there is reduced moisture. He denies fever, chill, nausea, vomiting, pain, odor, redness. He is keeping weight off of his foot he reports. He has a knee roller at home.he is ready to have a total contact cast applied today. Progress of Wound: improved Objective Data Objective Data Vital Signs: Vital Signs Temp Pulse Resp BP 97.0 F L 66 18 131/60 H 08/08/21 09:51 08/01/21 09:32 08/01/21 09:32 08/01/21 09:32 Oxygen Delivery Method Room Air Body Mass Index (BMI) 33.7 Physical Exam Narrative Const alert and no apparent distress General Appearance: cooperative and comfortable Extremity There is diffuse left foot/ankle and leg swelling. Left foot s/p debridement to arch and heel, tissues are healthy and viable, granular, down to fascia layer, there is no streaking or odor, compartments remain soft to palpate, there is no fluctuance or bogginess on palpation, no drainage, no visible abscess, no cellulitis, no blistering present. At the plantar arch. There is devitalized exposed fascia?tendon which is devitalized. Hematogenous drainage only upon debridement. Periwound moisture and maceration is resolved. there full epithelialization at the prior blister site that was identified last week. General Extremity: Negative for clubbing or cyanosis to digits. Vasc normal capillary refill, no acute ischemic skin changes noted, normal temperature bilateral. Skin Skin Narrative: Wound Narrative: Neuro Neuro Narrative: Debridement Note Debridement Note Wound debrided: left heel and arch Wound Grade/Stage: 3,3 Type of Debridement: Excisional debridement Anesthesia Used: 4% Lidocaine Solution Depth: in the subcutaneous layer Percentage of wound debrided: 100 Instrument Used: #15 blade Tissue Removed: fibrous, devitalized subcutaneous, biofilm, slough Severity: Fat Layer Exposed Amount of bleeding with debridement: Mild Bleeding Controlled with: Pressure Patient tolerated procedure: Patient tolerated procedure well Post-Debridement Measurements and Additional Note: Post-Debridement Measurements/Treatment WC - Nurse 1 - General Ulcer Assessment Start: 07/18/21 09:03 Freq: Status: Active Protocol: EVELYN Activity Type Activity Date Activity User E-Sign Co-Sign Detail Recorded Client Recorded Date Recorded By Document 07/18/21 09:07 DL [id number] 07/18/21 09:21 DL Document 07/25/21 09:45 RB [id number] 07/25/21 09:48 RB Document 08/01/21 09:32 MT [id number] 08/01/21 09:46 MT Document 08/08/21 09:51 RB [id number] 08/08/21 09:55 RB 07/18/21 07/25/21 08/01/21 09:07 09:45 09:32 - Today's Visit Information Type of service Follow-up Visit Follow-up Visit Follow-up Visit (Physician/BANKING PIN ADJUSTER (Physician/BANKING PIN ADJUSTER (Physician/BANKING PIN ADJUSTER ) ) ) Arrival Mode Wheelchair Wheelchair Ambulatory, Wheelchair Transfer Assistance Manual Manual Transfer Assist (Other) x2 Accompanied by self Patient Identification Verified (Name & Yes Yes Yes ) Patient Requires Transmission-Based No Precautions Finger Stick Blood Sugar(mg/dl) (if [phone] indicated): Blood Sugar Stated by Stated by Stated by Patient Patient Patient Height and Weight Body Mass Index (BMI) 33.7 33.7 33.7 BMI Classification Obese Obese Obese Vital Signs Temperature (97.8 F-99.1 F) 97.8 F 97.7 F L 97.0 F L Temperature Source Temporal Temporal Temporal Pulse Rate (60-100) 66 71 66 Pulse Location Monitor Monitor Monitor Respiratory Rate (12-18) 22 H 18 18 Respiratory rate source Observation Observation Observation Oxygen Delivery Method Room Air Blood Pressure (90/60-120/80) 127/61 H 138/63 H 131/60 H Blood Pressure Mean (mm Hg) 83 88 83 Source Monitor Monitor Monitor Position Semi-Fowlers Sitting Blood Pressure Location Left Arm Right Arm History Since Last Visit- (Skip if this is Patient's initial visit) Have you changed medications since your No No last visit? Any new allergies or adverse reactions No No Had a fall/change in ADL's that may No No increase risk of falls Signs or symptoms of abuse and/or No No neglect since last visit Have you been in the hospital since your No No last visit? Has dressing in place as prescribed Yes Yes Yes Has compression in place as prescribed Yes Yes Yes Has offloadiing in place as prescribed Yes No Yes Experienced any changes in pain level or No No Yes management Left Footwear No Footwear Right Footwear Slipper Pain Scale: 0-10 Numeric Is Patient Pain Free? Yes No Yes 08/08/21 09:51 WC - Today's Visit Information Type of service Follow-up Visit (Physician/BANKING PIN ADJUSTER ) Arrival Mode Ambulatory, Wheelchair Transfer Assistance Transfer Assist (Other) Accompanied by Patient Identification Verified (Name & Yes ) Patient Requires Transmission-Based Precautions Finger Stick Blood Sugar(mg/dl) (if 148 indicated): Blood Sugar Stated by Patient Height and Weight Body Mass Index (BMI) 33.7 BMI Classification Obese Vital Signs Temperature (97.8 F-99.1 F) 97.0 F L Temperature Source Temporal Pulse Rate (60-100) Pulse Location Respiratory Rate (12-18) Respiratory rate source Oxygen Delivery Method Blood Pressure (90/60-120/80) Blood Pressure Mean (mm Hg) Source Position Blood Pressure Location History Since Last Visit- (Skip if this is Patient's initial visit) Have you changed medications since your No last visit? Any new allergies or adverse reactions No Had a fall/change in ADL's that may No increase risk of falls Signs or symptoms of abuse and/or No neglect since last visit Have you been in the hospital since your No last visit? Has dressing in place as prescribed Yes Has compression in place as prescribed Yes Has offloadiing in place as prescribed No Experienced any changes in pain level or No management Left Footwear Regular Shoe Right Footwear Regular Shoe Pain Scale: 0-10 Numeric Is Patient Pain Free? Yes - Nurse 1 - General Ulcer Measurement Start: 07/18/21 09:03 Freq: Status: Active Protocol: Activity Type Activity Date Activity User E-Sign Co-Sign Detail Recorded Client Recorded Date Recorded By Document 07/18/21 09:07 DL [id number] 07/18/21 09:21 DL Document 07/25/21 09:45 RB [id number] 03/09/22 09:48 RB Document 08/01/21 09:32 KS [id number] 08/01/21 09:46 KS Document 08/08/21 09:51 RB [id number] 08/08/21 09:55 RB 07/18/21 07/25/21 08/01/21 09:07 09:45 09:32 Wound Center Nurse 1 4-left plantar arch -Combined with other wound No -Current Size (cm) - Length 7.5 7 6.5 -Current Size (cm) - Width 8.5 6 5.2 -Current Size (cm) - Depth 0.6 0.8 0.3 -Total Square Cm 63.75 42 33.80 -Photo Taken Yes -Tunneling No -Undermining/Tunneling Yes -Undermining/Tunneling Starts (O'clock 9 ) -Undermining/Tunneling Ends (O'clock) 12 -Maximum Distance (cm) 2.2 -Exudate Amt Large Large Medium -Exudate Type Serosanguineous Serosanguineous Serosanguineous -Wound Margin Thickened Thickened & Thickened & Rolled Under Rolled Under -Granulation Amt Medium (34-66%) Medium (34-66%) Medium (34-66%) -Granulation Quality Red Camilla Pale,Camilla -Slough/Fibrin Yes -Necrosis Amt Medium (34-66%) Medium (34-66%) Medium (34-66%) -Necrotic Tissue Type Adherent Slough Adherent Slough Adherent Slough -Structure Exposed N/A N/A -Texture (Margaret-wound Skin Appearance) Callus, Localized Edema Assessed Localized Edema ,Scarring -Moisture (Margaret-wound Skin Appearance) Maceration Maceration Assessed -Color (Margaret-wound Skin Appearance) Hemosiderin Assessed Assessed Staining -Temperature (Margaret-wound Skin No Abnormality No Abnormality No Abnormality Appearance) (Pt Warm) (Pt Warm) (Pt Warm) -Tenderness on Palpation (Margaret-wound No No No Skin Appearance) -Ulcer Cleansing Soap and Water Wound Cleanser Rinsed/ Irrigated with Saline -Foul Odor after Cleansing No No No -Anesthetic Used 4% Lidocaine 5% Lidocaine 4% Lidocaine Solution Gel Solution #1 left heel cluster -Current Size (cm) - Length 2.8 3.5 3.0 -Current Size (cm) - Width 3 4 3.5 -Current Size (cm) - Depth 1 1.6 2.0 -Total Square Cm 8.4 14.0 10.50 -Photo Taken Yes -Tunneling No -Undermining/Tunneling No -Circular Undermining No -Exudate Amt Large Large Medium -Exudate Type Serosanguineous Serosanguineous Serosanguineous -Wound Margin Thickened Thickened & Thickened & Rolled Under Rolled Under -Granulation Amt Medium (34-66%) Medium (34-66%) Medium (34-66%) -Granulation Quality Red Camilla Pale,Camilla -Slough/Fibrin Yes -Necrosis Amt Medium (34-66%) Medium (34-66%) Medium (34-66%) -Necrotic Tissue Type Adherent Slough Adherent Slough Adherent Slough -Structure Exposed N/A N/A -Texture (Margaret-wound Skin Appearance) Localized Edema Localized Edema Assessed ,Scarring -Moisture (Margaret-wound Skin Appearance) Maceration Maceration Assessed -Color (Margaret-wound Skin Appearance) Hemosiderin Assessed Assessed Staining -Temperature (Margaret-wound Skin No Abnormality No Abnormality No Abnormality Appearance) (Pt Warm) (Pt Warm) (Pt Warm) -Tenderness on Palpation (Margaret-wound No No Skin Appearance) -Ulcer Cleansing Soap and Water Rinsed/ Irrigated with Saline -Foul Odor after Cleansing No No No -Anesthetic Used 4% Lidocaine 5% Lidocaine 4% Lidocaine Solution Gel Solution -Wound Comment(s) maceration of L plantar foot and heel Left Calf (cm) 48.5 48.5 Left Ankle (cm) 27.3 27.3 08/08/21 09:51 Wound Center Nurse 1 4-left plantar arch -Combined with other wound -Current Size (cm) - Length 2.5 -Current Size (cm) - Width 4 -Current Size (cm) - Depth 0.5 -Total Square Cm 10.0 -Photo Taken -Tunneling -Undermining/Tunneling -Undermining/Tunneling Starts (O'clock ) -Undermining/Tunneling Ends (O'clock) -Maximum Distance (cm) -Exudate Amt Large -Exudate Type Serosanguineous -Wound Margin Thickened & Rolled Under -Granulation Amt Medium (34-66%) -Granulation Quality Red -Slough/Fibrin -Necrosis Amt Medium (34-66%) -Necrotic Tissue Type Adherent Slough -Structure Exposed -Texture (Margaret-wound Skin Appearance) Assessed, Scarring -Moisture (Margaret-wound Skin Appearance) Assessed, Maceration -Color (Margaret-wound Skin Appearance) No Abnormality, Assessed -Temperature (Margaret-wound Skin No Abnormality Appearance) (Pt Warm) -Tenderness on Palpation (Margaret-wound No Skin Appearance) -Ulcer Cleansing Rinsed/ Irrigated with Saline -Foul Odor after Cleansing No -Anesthetic Used 4% Lidocaine Solution,5% Lidocaine Gel #1 left heel cluster -Current Size (cm) - Length 3.3 -Current Size (cm) - Width 3 -Current Size (cm) - Depth 0.8 -Total Square Cm 9.9 -Photo Taken -Tunneling -Undermining/Tunneling -Circular Undermining -Exudate Amt Large -Exudate Type Serosanguineous -Wound Margin Distinct, Outline Attached -Granulation Amt Medium (34-66%) -Granulation Quality Red -Slough/Fibrin -Necrosis Amt Medium (34-66%) -Necrotic Tissue Type Adherent Slough -Structure Exposed -Texture (Margaret-wound Skin Appearance) Assessed,Callus ,Scarring -Moisture (Margaret-wound Skin Appearance) No Abnormality, Assessed -Color (Margaret-wound Skin Appearance) No Abnormality, Assessed -Temperature (Margaret-wound Skin No Abnormality Appearance) (Pt Warm) -Tenderness on Palpation (Margaret-wound No Skin Appearance) -Ulcer Cleansing Rinsed/ Irrigated with Saline -Foul Odor after Cleansing No -Anesthetic Used 4% Lidocaine Solution,5% Lidocaine Gel -Wound Comment(s) Left Calf (cm) 47 Left Ankle (cm) 27 WC - Nurse 2 - General Ulcer CM Notes Start: 07/18/21 09:03 Freq: Status: Active Protocol: Activity Type Activity Date Activity User E-Sign Co-Sign Detail Recorded Client Recorded Date Recorded By Document 07/18/21 09:28 DANIEL [id number] 07/18/21 09:33 JF Document 07/25/21 09:53 DANIEL [id number] 07/25/21 09:58 JF Edit Result 07/25/21 09:53 JF (1) [id number] 07/26/21 06:54 PL Document 08/01/21 09:54 JF [id number] 08/01/21 09:59 JF Document 08/08/21 10:02 [id number] 08/08/21 10:05 JF (1) #1 left heel cluster - Debridement, SubQ, ea addt'l 20sq cm 1 => or part thereof 07/18/21 07/25/21 08/01/21 09:28 09:53 09:54 Wound Center Nurse 2 4-left plantar arch -Time 09: 09:54 09:55 -Correct Patient Yes Yes Yes -Correct Side, Site, Position Yes Yes Yes -Correct Procedure Yes Yes Yes -Procedure Performed Yes Yes Yes -Type of Procedure Debridement Debridement Debridement -Clinical Debridement Muscle / Fascia Subcutaneous Subcutaneous -Tissue Removed Tendon Subcutaneous Subcutaneous -Post Debridement (cm) - Length 7.5 7.1 6.5 -Post Debridement (cm) - Width 8.5 6 5.3 -Post Debridement (cm) - Depth 0.6 0.8 0.3 -Total Square (Post) (cm) 63.75 42.6 34.45 -Area of Debridement (cm) - Length 7.5 7.1 6.5 -Area of Debridement (cm) - Width 8.5 6.0 5.3 -Total Square (Area) (cm) 63.75 42.60 34.45 -Tunneling No No No -Undermining/Tunneling No No No -Circular Undermining No No No -Wound/Ulcer Outcome Not Healed Not Healed Not Healed -Ulcer Cleansing Rinsed/ Rinsed/ Rinsed/ Irrigated with Irrigated with Irrigated with Saline Saline Saline -Foul Odor after Cleansing No No No -Bioengineered Tissue No No No -Bleeding Controlled with Pressure Pressure Pressure -Treatment Response Procedure Procedure Procedure Tolerated Well Tolerated Well Tolerated Well -Offloading Yes Yes No -Type of Offloading Knee Walker Surgical Shoe -Debridement - Subq, 1st 20sq cm No Yes No -Debridement, SubQ, ea addt'l 20sq cm 3 or part thereof -Debridement - Muscle / Fascia, 1st Yes 20sq cm #1 left heel cluster -Time : 09:55 09:55 -Correct Patient Yes Yes Yes -Correct Side, Site, Position Yes Yes Yes -Correct Procedure Yes Yes Yes -Procedure Performed Yes Yes Yes -Type of Procedure Debridement Debridement Debridement -Clinical Debridement Subcutaneous Subcutaneous Subcutaneous -Tissue Removed Subcutaneous Subcutaneous Subcutaneous -Post Debridement (cm) - Length 2.8 3.8 3.1 -Post Debridement (cm) - Width 3.1 6.4 3.5 -Post Debridement (cm) - Depth 1 1.6 2.0 -Total Square (Post) (cm) 8.68 24.32 10.85 -Area of Debridement (cm) - Length 2.8 3.8 3.1 -Area of Debridement (cm) - Width 3.1 6.4 3.5 -Total Square (Area) (cm) 8.68 24.32 10.85 -Tunneling No No No -Undermining/Tunneling No No No -Circular Undermining No No No -Wound/Ulcer Outcome Not Healed Not Healed Not Healed -Ulcer Cleansing Rinsed/ Rinsed/ Rinsed/ Irrigated with Irrigated with Irrigated with Saline Saline Saline -Foul Odor after Cleansing No No No -Bioengineered Tissue No No No -Bleeding Controlled with Pressure Pressure Pressure -Treatment Response Procedure Procedure Procedure Tolerated Well Tolerated Well Tolerated Well -Offloading Yes No No -Type of Offloading Knee Walker -Assistive Device(s) -Debridement - Subq, 1st 20sq cm Yes No Yes -Debridement, SubQ, ea addt'l 20sq cm 2 or part thereof Pain Scale: 0-10 Numeric Is Patient Pain Free? Yes Yes Yes 08/08/21 10:02 Wound Center Nurse 2 4-left plantar arch -Time 10:02 -Correct Patient Yes -Correct Side, Site, Position Yes -Correct Procedure Yes -Procedure Performed Yes -Type of Procedure Debridement -Clinical Debridement Subcutaneous -Tissue Removed Subcutaneous -Post Debridement (cm) - Length 2.5 -Post Debridement (cm) - Width 4.1 -Post Debridement (cm) - Depth 0.5 -Total Square (Post) (cm) 10.25 -Area of Debridement (cm) - Length 2.5 -Area of Debridement (cm) - Width 4.1 -Total Square (Area) (cm) 10.25 -Tunneling No -Undermining/Tunneling No -Circular Undermining No -Wound/Ulcer Outcome Not Healed -Ulcer Cleansing Rinsed/ Irrigated with Saline -Foul Odor after Cleansing No -Bioengineered Tissue No -Bleeding Controlled with Pressure -Treatment Response Procedure Tolerated Well -Offloading Yes -Type of Offloading Total Contact Cast (TCC) - Left ($) -Debridement - Subq, 1st 20sq cm No -Debridement, SubQ, ea addt'l 20sq cm or part thereof -Debridement - Muscle / Fascia, 1st 20sq cm #1 left heel cluster -Time 10:03 -Correct Patient Yes -Correct Side, Site, Position Yes -Correct Procedure Yes -Procedure Performed Yes -Type of Procedure Debridement -Clinical Debridement Subcutaneous -Tissue Removed Subcutaneous -Post Debridement (cm) - Length 3.4 -Post Debridement (cm) - Width 3.0 -Post Debridement (cm) - Depth 0.8 -Total Square (Post) (cm) 10.20 -Area of Debridement (cm) - Length 3.4 -Area of Debridement (cm) - Width 3.0 -Total Square (Area) (cm) 10.20 -Tunneling No -Undermining/Tunneling No -Circular Undermining No -Wound/Ulcer Outcome Not Healed -Ulcer Cleansing Rinsed/ Irrigated with Saline -Foul Odor after Cleansing No -Bioengineered Tissue No -Bleeding Controlled with Pressure -Treatment Response Procedure Tolerated Well -Offloading No -Type of Offloading -Assistive Device(s) Walker -Debridement - Subq, 1st 20sq cm Yes -Debridement, SubQ, ea addt'l 20sq cm 1 or part thereof Pain Scale: 0-10 Numeric Is Patient Pain Free? Yes WC - Nurse 3 - General Ulcer D/C NN Start: 07/18/21 09:03 Freq: Status: Active Protocol: Activity Type Activity Date Activity User E-Sign Co-Sign Detail Recorded Client Recorded Date Recorded By Document 07/18/21 11:31 DL [id number] 07/18/21 11:32 DL Edit Result 07/18/21 11:31 DL (1) [id number] 07/19/21 18:37 PL Document 07/25/21 11:49 DL [id number] 07/25/21 11:50 DL Document 08/01/21 10:04 DL [id number] 08/01/21 10:08 DL (1) 4-left plantar arch - NPWT Application Charge NPWT </= 50 sq cm => NPWT & Debridement ($) => (nc) #1 left heel cluster - NPWT Application Charge NPWT </= 50 sq cm => NPWT & Debridement ($) => (nc) 07/18/21 07/25/21 08/01/21 11:31 11:49 10:04 Wound Care Nurse 3 4-left plantar arch -Ulcer Cleansing Soap and Water Soap and Water Rinsed/ Irrigated with Saline -Foul Odor after Cleansing No No No -Negative Pressure Wound Therapy Continue -Setting (mmHg) 125 -Negative Pressure is Continuous -Primary Dressing Applied Aquacel AG 4x4 -Primary Dressing Covered/Secured with Dry Gauze & Dry Gauze & Dry Gauze & Roll Gauze Roll Gauze, Roll Gauze, Secured with Secured with Tape Tape -Other Covering superabsorber -NPWT Application Charge NPWT & Debridement (nc ) -Aquacel AG 4x4 1 #1 left heel cluster -Ulcer Cleansing Soap and Water Rinsed/ Irrigated with Saline -Foul Odor after Cleansing No No -Negative Pressure Wound Therapy Continue -Setting (mmHg) 125 -Negative Pressure is Continuous -Other Dressing aquacel ag -Primary Dressing Covered/Secured with Dry Gauze & Dry Gauze & Roll Gauze Roll Gauze, Secured with Tape -NPWT Application Charge NPWT & Debridement (nc ) Left -Compression Wrap Kevin Wrap Kevin Wrap Treatment Response Procedure Procedure Procedure Tolerated Well Tolerated Well Tolerated Well Pain Scale: 0-10 Numeric Is Patient Pain Free? Yes Yes Yes WC - Visit Discharge Discharge Condition Stable Stable Stable Ambulatory Status Wheelchair Wheelchair Wheelchair Notes: Pt to start Dakins at home. Vac on hold. Facility Type [facility] Orders Sent Yes Yes Yes Assessment/Plan Assessment/Plan (1) Type 2 diabetes mellitus with diabetic polyneuropathy: CODE(S): E11.42 - Type 2 diabetes mellitus with diabetic polyneuropathy QUALIFIERS: Diabetes mellitus ocean transportation intermediary insulin use: with ocean transportation intermediary use Qualified Code(s): E11.42 - Type 2 diabetes mellitus with diabetic polyneuropathy; Z79.4 - FDC (current) use of insulin (2) Delayed wound healing: CODE(S): T14.8XXD - Other injury of unspecified body region, subsequent encounter (3) Tobacco abuse: CODE(S): Z72.0 - Tobacco use (4) Obesity: CODE(S): E66.9 - Obesity, unspecified QUALIFIERS: Obesity type: due to excess calories Obesity classification: adult class 1 (BMI 30 - 34.9) Serious obesity comorbidity presence: with serious comorbidity Body mass index: BMI 33.0-33.9 Qualified Code(s): E66.09 - Other obesity due to excess calories; Z68.33 - Body mass index [BMI] 33.0-33.9, adult (5) Difficulty in walking: CODE(S): R26.2 - Difficulty in walking, not elsewhere classified (6) 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 I reviewed and discussed his case. Debridement was performed as noted in the clinical nursing panel. Dressing recommendation: aquacel ag was applied to wound bed prior to total contact cast application today. Patient wound is noted to have improved with healthier appearance and there is no malodor. There are no local signs infection noted today. He was seen by infectious disease during his last hospital admission and he had surgery on 05-29-2021. His surgical cultures had MRSA, Enterococcus, klebs, Proteus and it was down to deep tissue. He completed a 2-week course of IV vancomycin and Unasyn and then followed up with 4 weeks of oral doxycycline and Augmentin with a stop date of 07-10-21. Offloading: To continue offloading with cam walker boot and strict use of knee roller. To use assistive device to maintain nonweightbearing status. Compliance was reiterated and it does not appear he has been able to successfully stay off of the ulcer. Failure to do so will likely contribute to the need for amputation. He is amendable to have a total contact cast applied today and verbal consent was obtained. This was applied according to standard protocol in a neutral position a well-padded manner. He tolerated this well. To keep clean, dry, and intact until follow-up visit next week. Patient relates he had follow-up appointment with his primary care provider, Priyanka Brown, and relates that she did not change any medication and stated he was doing okay. PCP is leaving the diabetes management up to his tacking machine operator, Dr. Mykel Barraza. He was able to follow-up and recommendations were updated. Discussed importance of cleaning and maintaining foot both to prevent infection as well as to prevent future wounds. Discussed he is at higher risk for wounds due to his diabetes, neuropathy, hyperglycemia, obesity, swelling, and tobacco abuse. Discussed that he needs to cut back on his smoking, preferably quit, and better controlling his blood sugar to better optimize his healing. Patient has not improved his tobacco abuse or his hyperglycemia. Reviewed how pressure will impact the wound. Arterial studies were reviewed. Showing likely adequate perfusion for healing. Right LAI is 0.99 and left 1.18. Right toe brachial index 0.76 and left 0.71. Referral to Dr. Campos for potential venous and arterial intervention was provided today. He went for consultationon 04-11-21. Will recheck duplex to make sure normal posterior tibial flow into the area of the wound. normal prior LAI noted. Edema management: tubigrip and kevin wrap at follow-up visits if he does not have a cast on; at this time the cast is also contributing to edema management. to elevate. To discuss potential water pill application with his primary care physician. Host factors: His multiple comorbidities are noted including diabetes and smoking history. Also recommend improvement in nutritional status which involves taking in adequate protein and also focusing on eating 5-10 whole foods daily. All questions answered. He understands below-knee amputation is an option as well if he cannot keep pressure off the site, if pain becomes intolerable, and if he no longer is able to proceed with a comprehensive wound healing plan. He defers at this time. Patient to follow up in 1 week or call sooner if status worsening or if questions. I answered all of his questions. This note was generated with [employer] software. It may contain incorrect words, spelling, and punctuation that were not noted in checking the note before signing.
[2021-08-13 14:47] VITALS: BP 155/70; PULSE 66; TEMP 36.3; BMI 33.7
--- NOTE | 2021-08-13 15:20 | PCM.WC.PN ---
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 A limb and life-threatening infection which required emergent surgical intervention on 05-29-2021. He then subsequently resided in the transitional care unit for wound care which she completed a course of IV antibiotics. He changed his dressing as advised and there is reduced moisture. He denies fever, chill, nausea, vomiting, pain, odor, redness. He is keeping weight off of his foot he reports. He has a knee roller at home.he is ready to have a total contact cast applied today. Progress of Wound: Courtesy visit for total contact cast evaluation after his first application last Friday. He comes in today with concern about the odor he is experiencing coming from his cast. Objective Data Objective Data Vital Signs: Vital Signs Temp Pulse Resp BP 97.4 F L 66 18 155/70 H 08/13/21 14:47 08/13/21 14:47 08/01/21 09:32 08/13/21 14:47 Oxygen Delivery Method Room Air Body Mass Index (BMI) 33.7 Charges/Coding Addendum Addendum: 47177 Total contact cast placement Multi Select Codes Visit Charges Office Visit/Consults: 83562 OV L2 Est (25) Physical Exam Const alert and oriented x3 HEENT normocephalic Resp normal respiratory effort Skin Wound Narrative: Left heel and left midfoot ulcers are stable. Margaret wound is stable. No breakdown on other part of foot and ankle from TCC Neuro CN's II-XII intact bilaterally Psych Appearance: grossly normal Debridement Note Debridement Note No debridement was completed: No debridement was completed today Post-Debridement Measurements and Additional Note: Post-Debridement Measurements/Treatment JANESSA - Nurse 1 - General Ulcer Assessment Start: 07/18/21 09:03 Freq: Status: Active Protocol: EVELYN Activity Type Activity Date Activity User E-Sign Co-Sign Detail Recorded Client Recorded Date Recorded By Document 07/18/21 09:07 DL [id number] 07/18/21 09:21 DL Document 07/25/21 09:45 RB [id number] 07/25/21 09:48 RB Document 08/01/21 09:32 MT [id number] 08/01/21 09:46 MT Document 08/08/21 09:51 RB [id number] 08/08/21 09:55 RB Document 08/13/21 14:47 KR [id number] 08/13/21 15:12 KR 07/18/21 07/25/21 08/01/21 09:07 09:45 09:32 WC - Today's Visit Information Type of service Follow-up Visit Follow-up Visit Follow-up Visit (Physician/MAGISTERIAL DISTRICT JUDGE (Physician/MAGISTERIAL DISTRICT JUDGE (Physician/MAGISTERIAL DISTRICT JUDGE ) ) ) Arrival Mode Wheelchair Wheelchair Ambulatory, Wheelchair Transfer Assistance Manual Manual Transfer Assist (Other) x2 Accompanied by self Patient Identification Verified (Name & Yes Yes Yes ) Patient Requires Transmission-Based No Precautions Finger Stick Blood Sugar(mg/dl) (if 144 136 137 indicated): Blood Sugar Stated by Stated by Stated by Patient Patient Patient Height and Weight Body Mass Index (BMI) 33.7 33.7 33.7 BMI Classification Obese Obese Obese Vital Signs Temperature (97.8 F-99.1 F) 97.8 F 97.7 F L 97.0 F L Temperature Source Temporal Temporal Temporal Pulse Rate (60-100) 66 71 66 Pulse Location Monitor Monitor Monitor Respiratory Rate (12-18) 22 H 18 18 Respiratory rate source Observation Observation Observation Oxygen Delivery Method Room Air Blood Pressure (90/60-120/80) 127/61 H 138/63 H 131/60 H Blood Pressure Mean (mm Hg) 83 88 83 Source Monitor Monitor Monitor Position Semi-Fowlers Sitting Blood Pressure Location Left Arm Right Arm History Since Last Visit- (Skip if this is Patient's initial visit) Have you changed medications since your No No last visit? Any new allergies or adverse reactions No No Had a fall/change in ADL's that may No No increase risk of falls Signs or symptoms of abuse and/or No No neglect since last visit Have you been in the hospital since your No No last visit? Has dressing in place as prescribed Yes Yes Yes Has compression in place as prescribed Yes Yes Yes Has offloadiing in place as prescribed Yes No Yes Experienced any changes in pain level or No No Yes management Left Footwear No Footwear Right Footwear Slipper Pain Scale: 0-10 Numeric Is Patient Pain Free? Yes No Yes 08/08/21 08/13/21 09:51 14:47 WC - Today's Visit Information Type of service Follow-up Visit Nurse-only (Physician/MAGISTERIAL DISTRICT JUDGE Visit ) Arrival Mode Ambulatory, Wheelchair Wheelchair Transfer Assistance Transfer Assist (Other) Accompanied by Patient Identification Verified (Name & Yes Yes ) Patient Requires Transmission-Based Precautions Finger Stick Blood Sugar(mg/dl) (if 148 indicated): Blood Sugar Stated by Patient Height and Weight Body Mass Index (BMI) 33.7 33.7 BMI Classification Obese Obese Vital Signs Temperature (97.8 F-99.1 F) 97.0 F L 97.4 F L Temperature Source Temporal Temporal Pulse Rate (60-100) 66 Pulse Location Monitor Respiratory Rate (12-18) Respiratory rate source Oxygen Delivery Method Blood Pressure (90/60-120/80) 155/70 H Blood Pressure Mean (mm Hg) 98 Source Monitor Position Sitting Blood Pressure Location Right Arm History Since Last Visit- (Skip if this is Patient's initial visit) Have you changed medications since your No No last visit? Any new allergies or adverse reactions No No Had a fall/change in ADL's that may No No increase risk of falls Signs or symptoms of abuse and/or No No neglect since last visit Have you been in the hospital since your No No last visit? Has dressing in place as prescribed Yes Yes Has compression in place as prescribed Yes Yes Has offloadiing in place as prescribed No N/A Experienced any changes in pain level or No No management Left Footwear Regular Shoe Total Contact Cast Right Footwear Regular Shoe Regular Shoe Pain Scale: 0-10 Numeric Is Patient Pain Free? Yes Yes - Nurse 1 - General Ulcer Measurement Start: 07/18/21 09:03 Freq: Status: Active Protocol: Activity Type Activity Date Activity User E-Sign Co-Sign Detail Recorded Client Recorded Date Recorded By Document 07/18/21 09:07 DL [id number] 07/18/21 09:21 DL Document 07/25/21 09:45 RB [id number] 07/25/21 09:48 RB Document 08/01/21 09:32 MT [id number] 08/01/21 09:46 MT Document 08/08/21 09:51 RB [id number] 08/08/21 09:55 RB 0307/25/21 08/01/21 09:07 09:45 09:32 Wound Center Nurse 1 4-left plantar arch -Combined with other wound No -Current Size (cm) - Length 7.5 7 6.5 -Current Size (cm) - Width 8.5 6 5.2 -Current Size (cm) - Depth 0.6 0.8 0.3 -Total Square Cm 63.75 42 33.80 -Photo Taken Yes -Tunneling No -Undermining/Tunneling Yes -Undermining/Tunneling Starts (O'clock 9 ) -Undermining/Tunneling Ends (O'clock) 12 -Maximum Distance (cm) 2.2 -Exudate Amt Large Large Medium -Exudate Type Serosanguineous Serosanguineous Serosanguineous -Wound Margin Thickened Thickened & Thickened & Rolled Under Rolled Under -Granulation Amt Medium (34-66%) Medium (34-66%) Medium (34-66%) -Granulation Quality Red [place] Pale,[place] -Slough/Fibrin Yes -Necrosis Amt Medium (34-66%) Medium (34-66%) Medium (34-66%) -Necrotic Tissue Type Adherent Slough Adherent Slough Adherent Slough -Structure Exposed N/A N/A -Texture (Margaret-wound Skin Appearance) Callus, Localized Edema Assessed Localized Edema ,Scarring -Moisture (Margaret-wound Skin Appearance) Maceration Maceration Assessed -Color (Margaret-wound Skin Appearance) Hemosiderin Assessed Assessed Staining -Temperature (Margaret-wound Skin No Abnormality No Abnormality No Abnormality Appearance) (Pt Warm) (Pt Warm) (Pt Warm) -Tenderness on Palpation (Margaret-wound No No No Skin Appearance) -Ulcer Cleansing Soap and Water Wound Cleanser Rinsed/ Irrigated with Saline -Foul Odor after Cleansing No No No -Anesthetic Used 4% Lidocaine 5% Lidocaine 4% Lidocaine Solution Gel Solution #1 left heel cluster -Current Size (cm) - Length 2.8 3.5 3.0 -Current Size (cm) - Width 3 4 3.5 -Current Size (cm) - Depth 1 1.6 2.0 -Total Square Cm 8.4 14.0 10.50 -Photo Taken Yes -Tunneling No -Undermining/Tunneling No -Circular Undermining No -Exudate Amt Large Large Medium -Exudate Type Serosanguineous Serosanguineous Serosanguineous -Wound Margin Thickened Thickened & Thickened & Rolled Under Rolled Under -Granulation Amt Medium (34-66%) Medium (34-66%) Medium (34-66%) -Granulation Quality Red [place] Pale,[place] -Slough/Fibrin Yes -Necrosis Amt Medium (34-66%) Medium (34-66%) Medium (34-66%) -Necrotic Tissue Type Adherent Slough Adherent Slough Adherent Slough -Structure Exposed N/A N/A -Texture (Margaret-wound Skin Appearance) Localized Edema Localized Edema Assessed ,Scarring -Moisture (Margaret-wound Skin Appearance) Maceration Maceration Assessed -Color (Margaret-wound Skin Appearance) Hemosiderin Assessed Assessed Staining -Temperature (Margaret-wound Skin No Abnormality No Abnormality No Abnormality Appearance) (Pt Warm) (Pt Warm) (Pt Warm) -Tenderness on Palpation (Margaret-wound No No Skin Appearance) -Ulcer Cleansing Soap and Water Rinsed/ Irrigated with Saline -Foul Odor after Cleansing No No No -Anesthetic Used 4% Lidocaine 5% Lidocaine 4% Lidocaine Solution Gel Solution -Wound Comment(s) maceration of L plantar foot and heel Left Calf (cm) 48.5 48.5 Left Ankle (cm) 27.3 27.3 08/08/21 09:51 Wound Center Nurse 1 4-left plantar arch -Combined with other wound -Current Size (cm) - Length 2.5 -Current Size (cm) - Width 4 -Current Size (cm) - Depth 0.5 -Total Square Cm 10.0 -Photo Taken -Tunneling -Undermining/Tunneling -Undermining/Tunneling Starts (O'clock ) -Undermining/Tunneling Ends (O'clock) -Maximum Distance (cm) -Exudate Amt Large -Exudate Type Serosanguineous -Wound Margin Thickened & Rolled Under -Granulation Amt Medium (34-66%) -Granulation Quality Red -Slough/Fibrin -Necrosis Amt Medium (34-66%) -Necrotic Tissue Type Adherent Slough -Structure Exposed -Texture (Margaret-wound Skin Appearance) Assessed, Scarring -Moisture (Margaret-wound Skin Appearance) Assessed, Maceration -Color (Margaret-wound Skin Appearance) No Abnormality, Assessed -Temperature (Margaret-wound Skin No Abnormality Appearance) (Pt Warm) -Tenderness on Palpation (Margaret-wound No Skin Appearance) -Ulcer Cleansing Rinsed/ Irrigated with Saline -Foul Odor after Cleansing No -Anesthetic Used 4% Lidocaine Solution,5% Lidocaine Gel #1 left heel cluster -Current Size (cm) - Length 3.3 -Current Size (cm) - Width 3 -Current Size (cm) - Depth 0.8 -Total Square Cm 9.9 -Photo Taken -Tunneling -Undermining/Tunneling -Circular Undermining -Exudate Amt Large -Exudate Type Serosanguineous -Wound Margin Distinct, Outline Attached -Granulation Amt Medium (34-66%) -Granulation Quality Red -Slough/Fibrin -Necrosis Amt Medium (34-66%) -Necrotic Tissue Type Adherent Slough -Structure Exposed -Texture (Margaret-wound Skin Appearance) Assessed,Callus ,Scarring -Moisture (Margaret-wound Skin Appearance) No Abnormality, Assessed -Color (Margaret-wound Skin Appearance) No Abnormality, Assessed -Temperature (Margaret-wound Skin No Abnormality Appearance) (Pt Warm) -Tenderness on Palpation (Margaret-wound No Skin Appearance) -Ulcer Cleansing Rinsed/ Irrigated with Saline -Foul Odor after Cleansing No -Anesthetic Used 4% Lidocaine Solution,5% Lidocaine Gel -Wound Comment(s) Left Calf (cm) 47 Left Ankle (cm) 27 WC - Nurse 2 - General Ulcer CM Notes Start: 07/18/21 09:03 Freq: Status: Active Protocol: Activity Type Activity Date Activity User E-Sign Co-Sign Detail Recorded Client Recorded Date Recorded By Document 07/18/21 09:28 [id number] 07/18/21 09:33 JF Document 07/25/21 09:53 [id number] 07/25/21 09:58 JF Edit Result 07/25/21 09:53 JF (1) [id number] 07/26/21 06:54 PL Document 08/01/21 09:54 [id number] 08/01/21 09:59 JF Document 08/08/21 10:02 [id number] 08/08/21 10:05 JF (1) #1 left heel cluster - Debridement, SubQ, ea addt'l 20sq cm 1 => or part thereof 03/07/1007/25/21 08/01/21 09:28 09:53 09:54 Wound Center Nurse 2 4-left plantar arch -Time 09:54 09:55 -Correct Patient Yes Yes Yes -Correct Side, Site, Position Yes Yes Yes -Correct Procedure Yes Yes Yes -Procedure Performed Yes Yes Yes -Type of Procedure Debridement Debridement Debridement -Clinical Debridement Muscle / Fascia Subcutaneous Subcutaneous -Tissue Removed Tendon Subcutaneous Subcutaneous -Post Debridement (cm) - Length 7.5 7.1 6.5 -Post Debridement (cm) - Width 8.5 6 5.3 -Post Debridement (cm) - Depth 0.6 0.8 0.3 -Total Square (Post) (cm) 63.75 42.6 34.45 -Area of Debridement (cm) - Length 7.5 7.1 6.5 -Area of Debridement (cm) - Width 8.5 6.0 5.3 -Total Square (Area) (cm) 63.75 42.60 34.45 -Tunneling No No No -Undermining/Tunneling No No No -Circular Undermining No No No -Wound/Ulcer Outcome Not Healed Not Healed Not Healed -Ulcer Cleansing Rinsed/ Rinsed/ Rinsed/ Irrigated with Irrigated with Irrigated with Saline Saline Saline -Foul Odor after Cleansing No No No -Bioengineered Tissue No No No -Bleeding Controlled with Pressure Pressure Pressure -Treatment Response Procedure Procedure Procedure Tolerated Well Tolerated Well Tolerated Well -Offloading Yes Yes No -Type of Offloading Knee Walker Surgical Shoe -Debridement - Subq, 1st 20sq cm No Yes No -Debridement, SubQ, ea addt'l 20sq cm 3 or part thereof -Debridement - Muscle / Fascia, 1st Yes 20sq cm #1 left heel cluster -Time 09:55 09:55 -Correct Patient Yes Yes Yes -Correct Side, Site, Position Yes Yes Yes -Correct Procedure Yes Yes Yes -Procedure Performed Yes Yes Yes -Type of Procedure Debridement Debridement Debridement -Clinical Debridement Subcutaneous Subcutaneous Subcutaneous -Tissue Removed Subcutaneous Subcutaneous Subcutaneous -Post Debridement (cm) - Length 2.8 3.8 3.1 -Post Debridement (cm) - Width 3.1 6.4 3.5 -Post Debridement (cm) - Depth 1 1.6 2.0 -Total Square (Post) (cm) 8.68 24.32 10.85 -Area of Debridement (cm) - Length 2.8 3.8 3.1 -Area of Debridement (cm) - Width 3.1 6.4 3.5 -Total Square (Area) (cm) 8.68 24.32 10.85 -Tunneling No No No -Undermining/Tunneling No No No -Circular Undermining No No No -Wound/Ulcer Outcome Not Healed Not Healed Not Healed -Ulcer Cleansing Rinsed/ Rinsed/ Rinsed/ Irrigated with Irrigated with Irrigated with Saline Saline Saline -Foul Odor after Cleansing No No No -Bioengineered Tissue No No No -Bleeding Controlled with Pressure Pressure Pressure -Treatment Response Procedure Procedure Procedure Tolerated Well Tolerated Well Tolerated Well -Offloading Yes No No -Type of Offloading Knee Walker -Assistive Device(s) -Debridement - Subq, 1st 20sq cm Yes No Yes -Debridement, SubQ, ea addt'l 20sq cm 2 or part thereof Pain Scale: 0-10 Numeric Is Patient Pain Free? Yes Yes Yes 08/08/21 10:02 Wound Center Nurse 2 4-left plantar arch -Time 10:02 -Correct Patient Yes -Correct Side, Site, Position Yes -Correct Procedure Yes -Procedure Performed Yes -Type of Procedure Debridement -Clinical Debridement Subcutaneous -Tissue Removed Subcutaneous -Post Debridement (cm) - Length 2.5 -Post Debridement (cm) - Width 4.1 -Post Debridement (cm) - Depth 0.5 -Total Square (Post) (cm) 10.25 -Area of Debridement (cm) - Length 2.5 -Area of Debridement (cm) - Width 4.1 -Total Square (Area) (cm) 10.25 -Tunneling No -Undermining/Tunneling No -Circular Undermining No -Wound/Ulcer Outcome Not Healed -Ulcer Cleansing Rinsed/ Irrigated with Saline -Foul Odor after Cleansing No -Bioengineered Tissue No -Bleeding Controlled with Pressure -Treatment Response Procedure Tolerated Well -Offloading Yes -Type of Offloading Total Contact Cast (TCC) - Left ($) -Debridement - Subq, 1st 20sq cm No -Debridement, SubQ, ea addt'l 20sq cm or part thereof -Debridement - Muscle / Fascia, 1st 20sq cm #1 left heel cluster -Time 10:03 -Correct Patient Yes -Correct Side, Site, Position Yes -Correct Procedure Yes -Procedure Performed Yes -Type of Procedure Debridement -Clinical Debridement Subcutaneous -Tissue Removed Subcutaneous -Post Debridement (cm) - Length 3.4 -Post Debridement (cm) - Width 3.0 -Post Debridement (cm) - Depth 0.8 -Total Square (Post) (cm) 10.20 -Area of Debridement (cm) - Length 3.4 -Area of Debridement (cm) - Width 3.0 -Total Square (Area) (cm) 10.20 -Tunneling No -Undermining/Tunneling No -Circular Undermining No -Wound/Ulcer Outcome Not Healed -Ulcer Cleansing Rinsed/ Irrigated with Saline -Foul Odor after Cleansing No -Bioengineered Tissue No -Bleeding Controlled with Pressure -Treatment Response Procedure Tolerated Well -Offloading No -Type of Offloading -Assistive Device(s) Walker -Debridement - Subq, 1st 20sq cm Yes -Debridement, SubQ, ea addt'l 20sq cm 1 or part thereof Pain Scale: 0-10 Numeric Is Patient Pain Free? Yes WC - Nurse 3 - General Ulcer D/C NN Start: 07/18/21 09:03 Freq: Status: Active Protocol: Activity Type Activity Date Activity User E-Sign Co-Sign Detail Recorded Client Recorded Date Recorded By Document 07/18/21 11:31 DL [id number] 07/18/21 11:32 DL Edit Result 07/18/21 11:31 DL (1) [id number] 07/19/21 18:37 PL Document 07/25/21 11:49 DL [id number] 07/25/21 11:50 DL Document 08/01/21 10:04 DL [id number] 08/01/21 10:08 DL Document 08/08/21 10:27 JF [id number] 08/08/21 10:28 JF Document 08/13/21 14:47 KR [id number] 08/13/21 15:12 KR (1) 4-left plantar arch - NPWT Application Charge NPWT </= 50 sq cm => NPWT & Debridement ($) => (nc) #1 left heel cluster - NPWT Application Charge NPWT </= 50 sq cm => NPWT & Debridement ($) => (nc) 07/18/21 07/25/21 08/01/21 11:31 11:49 10:04 Wound Care Nurse 3 4-left plantar arch -Ulcer Cleansing Soap and Water Soap and Water Rinsed/ Irrigated with Saline -Foul Odor after Cleansing No No No -Negative Pressure Wound Therapy Continue -Setting (mmHg) 125 -Negative Pressure is Continuous -Primary Dressing Applied Aquacel AG 4x4 -Primary Dressing Covered/Secured with Dry Gauze & Dry Gauze & Dry Gauze & Roll Gauze Roll Gauze, Roll Gauze, Secured with Secured with Tape Tape -Other Covering superabsorber -NPWT Application Charge NPWT & Debridement (nc ) -Aquacel AG 4x4 1 -Optilok 6.5x10 #1 left heel cluster -Ulcer Cleansing Soap and Water Rinsed/ Irrigated with Saline -Foul Odor after Cleansing No No -Negative Pressure Wound Therapy Continue -Setting (mmHg) 125 -Negative Pressure is Continuous -Primary Dressing Applied -Other Dressing aquacel ag -Primary Dressing Covered/Secured with Dry Gauze & Dry Gauze & Roll Gauze Roll Gauze, Secured with Tape -NPWT Application Charge NPWT & Debridement (nc ) -Aquacel AG 4x4 -Optilok 6.5x10 Left -Compression Wrap Kevin Wrap Kevin Wrap -Other Treatment Response Procedure Procedure Procedure Tolerated Well Tolerated Well Tolerated Well Vital Signs Temperature (97.8 F-99.1 F) Temperature Source Pulse Rate (60-100) Pulse Location Blood Pressure (90/60-120/80) Blood Pressure Mean (mm Hg) Source Position Blood Pressure Location Pain Scale: 0-10 Numeric Is Patient Pain Free? Yes Yes Yes WC - Visit Discharge Discharge Condition Stable Stable Stable Ambulatory Status Wheelchair Wheelchair Wheelchair Transportation Medication Reconcilliation completed & provided to patient/care provider Clinical Summary of Care Provided Notes: Pt to start Dakins at home. Vac on hold. Facility Type Home Health [facility]idential [facility] Facility Orders Sent Yes Yes Yes 08/08/21 08/13/21 10:27 14:47 Wound Care Nurse 3 4-left plantar arch -Ulcer Cleansing Rinsed/ Irrigated with Saline -Foul Odor after Cleansing No -Negative Pressure Wound Therapy -Setting (mmHg) -Negative Pressure is -Primary Dressing Applied Aquacel AG 4x4, Optilok 6.5x10 -Primary Dressing Covered/Secured with -Other Covering -NPWT Application Charge -Aquacel AG 4x4 0 -Optilok 6.5x10 0 #1 left heel cluster -Ulcer Cleansing Wound Cleanser -Foul Odor after Cleansing No -Negative Pressure Wound Therapy -Setting (mmHg) -Negative Pressure is -Primary Dressing Applied Aquacel AG 4x4, Optilok 6.5x10 -Other Dressing -Primary Dressing Covered/Secured with -NPWT Application Charge -Aquacel AG 4x4 1 -Optilok 6.5x10 1 Left -Compression Wrap -Other TCC under cast applied Treatment Response Vital Signs Temperature (97.8 F-99.1 F) 97.4 F L Temperature Source Temporal Pulse Rate (60-100) 66 Pulse Location Monitor Blood Pressure (90/60-120/80) 155/70 H Blood Pressure Mean (mm Hg) 98 Source Monitor Position Sitting Blood Pressure Location Right Arm Pain Scale: 0-10 Numeric Is Patient Pain Free? Yes Yes WC - Visit Discharge Discharge Condition Stable Stable Ambulatory Status Walker Wheelchair Transportation Private Auto Private Auto Medication Reconcilliation completed & Yes provided to patient/care provider Clinical Summary of Care Provided Yes Notes: Facility Type Orders Sent Assessment/Plan Assessment/Plan (1) Type 2 diabetes mellitus with diabetic polyneuropathy: CODE(S): E11.42 - Type 2 diabetes mellitus with diabetic polyneuropathy QUALIFIERS: Diabetes mellitus exterminator insulin use: with usp use Qualified Code(s): E11.42 - Type 2 diabetes mellitus with diabetic polyneuropathy; Z79.4 - senior living (current) use of insulin (2) Delayed wound healing: CODE(S): T14.8XXD - Other injury of unspecified body region, subsequent encounter (3) Difficulty in walking: CODE(S): R26.2 - Difficulty in walking, not elsewhere classified (4) 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 Redressed left heel and left midfoot ulcers with Aquacel- Ag and covered with super absorber. Replaced total contact cast today. This was applied according to standard protocol in a neutral position a well-padded manner. He tolerated this well. To keep clean, dry, and intact until follow-up visit with Dr. Chapman on Friday. Continue to off load. Encouraged to stop smoking. Follow up Friday.
[2021-08-15 10:44] VITALS: BP 125/64; PULSE 64; TEMP 36.1; BMI 33.7
--- NOTE | 2021-08-15 14:04 | PN.PCM_ITS ---
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 A limb and life-threatening infection which required emergent surgical intervention on 05-29-2021. He then subsequently resided in the transitional care unit for wound care which she completed a course of IV antibiotics. He changed his dressing as advised and there is reduced moisture. He denies fever, chill, nausea, vomiting, pain, odor, redness. He is keeping weight off of his foot he reports. He has a knee roller at home.he is ready to have a total contact cast applied today. He has a lot of drainage and sometimes requires an additional appointment for removal and reapplication. Progress of Wound: improving Objective Data Objective Data Vital Signs: Vital Signs Temp Pulse Resp BP 97.0 F L 64 18 125/64 H 08/15/21 10:44 08/15/21 10:44 08/01/21 09:32 08/15/21 10:44 Oxygen Delivery Method Room Air Body Mass Index (BMI) 33.7 Physical Exam Narrative Const alert and no apparent distress General Appearance: cooperative and comfortable Extremity There is diffuse left foot/ankle and leg swelling. Left foot s/p debridement to arch and heel, tissues are healthy and viable, granular, down to fascia layer, there is no streaking or odor, compartments remain soft to palpate, there is no fluctuance or bogginess on palpation, no drainage, no visible abscess, no cellulitis, no blistering present. At the plantar arch. There is devitalized exposed fascia?tendon which is no longer directly visualized. Hematogenous drainage only upon debridement. Periwound moisture and maceration is significantly decreased. General Extremity: Negative for clubbing or cyanosis to digits. Vasc normal capillary refill, no acute ischemic skin changes noted, normal temperature bilateral. Skin Skin Narrative: Wound Narrative: Neuro Neuro Narrative: Debridement Note Debridement Note Wound debrided: Left arch and left heel Wound Grade/Stage: 3, 3 Type of Debridement: Excisional debridement Anesthesia Used: 4% Lidocaine Solution Depth: in the subcutaneous layer Percentage of wound debrided: 100 Instrument Used: #15 blade Tissue Removed: fibrous, devitalized subcutaneous, biofilm, slough Severity: Fat Layer Exposed Amount of bleeding with debridement: Mild Bleeding Controlled with: Pressure Patient tolerated procedure: Patient tolerated procedure well Post-Debridement Measurements and Additional Note: Post-Debridement Measurements/Treatment - Nurse 1 - General Ulcer Assessment Start: 07/18/21 09:03 Freq: Status: Active Protocol: EVELYN Activity Type Activity Date Activity User E-Sign Co-Sign Detail Recorded Client Recorded Date Recorded By Document 07/18/21 09:07 DL [id number] 07/18/21 09:21 DL Document 07/25/21 09:45 RB [id number] 07/25/21 09:48 RB Document 08/01/21 09:32 MT [id number] 08/01/21 09:46 MT Document 08/08/21 09:51 RB [id number] 08/08/21 09:55 RB Document 08/13/21 14:47 KR [id number] 08/13/21 15:12 KR Document 08/15/21 10:44 DL [id number] 08/15/21 11:02 DL 07/18/21 07/25/21 08/01/21 09:07 09:45 09:32 - Today's Visit Information Type of service Follow-up Visit Follow-up Visit Follow-up Visit (Physician/RUBBER BLOCK LAYER (Physician/RUBBER BLOCK LAYER (Physician/RUBBER BLOCK LAYER ) ) ) Arrival Mode Wheelchair Wheelchair Ambulatory, Wheelchair Transfer Assistance Manual Manual Transfer Assist (Other) x2 Accompanied by self Patient Identification Verified (Name & Yes Yes Yes ) Patient Requires Transmission-Based No Precautions Finger Stick Blood Sugar(mg/dl) (if 144 136 137 indicated): Blood Sugar Stated by Stated by Stated by Patient Patient Patient Height and Weight Body Mass Index (BMI) 33.7 33.7 33.7 BMI Classification Obese Obese Obese Vital Signs Temperature (97.8 F-99.1 F) 97.8 F 97.7 F L 97.0 F L Temperature Source Temporal Temporal Temporal Pulse Rate (60-100) 66 71 66 Pulse Location Monitor Monitor Monitor Respiratory Rate (12-18) 22 H 18 18 Respiratory rate source Observation Observation Observation Oxygen Delivery Method Room Air Blood Pressure (90/60-120/80) 127/61 H 138/63 H 131/60 H Blood Pressure Mean (mm Hg) 83 88 83 Source Monitor Monitor Monitor Position Semi-Fowlers Sitting Blood Pressure Location Left Arm Right Arm History Since Last Visit- (Skip if this is Patient's initial visit) Have you changed medications since your No No last visit? Any new allergies or adverse reactions No No Had a fall/change in ADL's that may No No increase risk of falls Signs or symptoms of abuse and/or No No neglect since last visit Have you been in the hospital since your No No last visit? Has dressing in place as prescribed Yes Yes Yes Has compression in place as prescribed Yes Yes Yes Has offloadiing in place as prescribed Yes No Yes Experienced any changes in pain level or No No Yes management Left Footwear No Footwear Right Footwear Slipper Pain Scale: 0-10 Numeric Is Patient Pain Free? Yes No Yes 08/08/21 08/13/21 08/15/21 09:51 14:47 10:44 WC - Today's Visit Information Type of service Follow-up Visit Nurse-only Follow-up Visit (Physician/RUBBER BLOCK LAYER Visit (Physician/RUBBER BLOCK LAYER ) ) Arrival Mode Ambulatory, Wheelchair Wheelchair Wheelchair Transfer Assistance Transfer Assist (Other) Accompanied by Patient Identification Verified (Name & Yes Yes Yes ) Patient Requires Transmission-Based Precautions Finger Stick Blood Sugar(mg/dl) (if 148 56 indicated): Blood Sugar Stated by Stated by Patient Patient Height and Weight Body Mass Index (BMI) 33.7 33.7 33.7 BMI Classification Obese Obese Obese Vital Signs Temperature (97.8 F-99.1 F) 97.0 F L 97.4 F L 97.0 F L Temperature Source Temporal Temporal Temporal Pulse Rate (60-100) 66 64 Pulse Location Monitor Monitor Respiratory Rate (12-18) Respiratory rate source Oxygen Delivery Method Blood Pressure (90/60-120/80) 155/70 H 125/64 H Blood Pressure Mean (mm Hg) 98 84 Source Monitor Monitor Position Sitting Sitting Blood Pressure Location Right Arm Right Arm History Since Last Visit- (Skip if this is Patient's initial visit) Have you changed medications since your No No No last visit? Any new allergies or adverse reactions No No No Had a fall/change in ADL's that may No No No increase risk of falls Signs or symptoms of abuse and/or No No No neglect since last visit Have you been in the hospital since your No No No last visit? Has dressing in place as prescribed Yes Yes Yes Has compression in place as prescribed Yes Yes N/A Has offloadiing in place as prescribed No N/A Yes Experienced any changes in pain level or No No No management Left Footwear Regular Shoe Total Contact Total Contact Cast Cast Right Footwear Regular Shoe Regular Shoe Regular Shoe Pain Scale: 0-10 Numeric Is Patient Pain Free? Yes Yes Yes WC - Nurse 1 - General Ulcer Measurement Start: 07/18/21 09:03 Freq: Status: Active Protocol: Activity Type Activity Date Activity User E-Sign Co-Sign Detail Recorded Client Recorded Date Recorded By Document 07/18/21 09:07 DL [id number] 07/18/21 09:21 DL Document 07/25/21 09:45 RB [id number] 07/25/21 09:48 RB Document 08/01/21 09:32 MT [id number] 08/01/21 09:46 MT Document 08/08/21 09:51 RB [id number] 08/08/21 09:55 RB Document 08/15/21 10:44 DL [id number] 08/15/21 11:02 DL 07/18/21 07/25/21 08/01/21 09:07 09:45 09:32 Wound Center Nurse 1 4-left plantar arch -Combined with other wound No -Current Size (cm) - Length 7.5 7 6.5 -Current Size (cm) - Width 8.5 6 5.2 -Current Size (cm) - Depth 0.6 0.8 0.3 -Total Square Cm 63.75 42 33.80 -Photo Taken Yes -Tunneling No -Undermining/Tunneling Yes -Undermining/Tunneling Starts (O'clock 9 ) -Undermining/Tunneling Ends (O'clock) 12 -Maximum Distance (cm) 2.2 -Exudate Amt Large Large Medium -Exudate Type Serosanguineous Serosanguineous Serosanguineous -Wound Margin Thickened Thickened & Thickened & Rolled Under Rolled Under -Granulation Amt Medium (34-66%) Medium (34-66%) Medium (34-66%) -Granulation Quality Red [place] Pale,[place] -Slough/Fibrin Yes -Necrosis Amt Medium (34-66%) Medium (34-66%) Medium (34-66%) -Necrotic Tissue Type Adherent Slough Adherent Slough Adherent Slough -Structure Exposed N/A N/A -Texture (Margaret-wound Skin Appearance) Callus, Localized Edema Assessed Localized Edema ,Scarring -Moisture (Margaret-wound Skin Appearance) Maceration Maceration Assessed -Color (Margaret-wound Skin Appearance) Hemosiderin Assessed Assessed Staining -Temperature (Margaret-wound Skin No Abnormality No Abnormality No Abnormality Appearance) (Pt Warm) (Pt Warm) (Pt Warm) -Tenderness on Palpation (Margaret-wound No No No Skin Appearance) -Ulcer Cleansing Soap and Water Wound Cleanser Rinsed/ Irrigated with Saline -Foul Odor after Cleansing No No No -Anesthetic Used 4% Lidocaine 5% Lidocaine 4% Lidocaine Solution Gel Solution #1 left heel cluster -Current Size (cm) - Length 2.8 3.5 3.0 -Current Size (cm) - Width 3 4 3.5 -Current Size (cm) - Depth 1 1.6 2.0 -Total Square Cm 8.4 14.0 10.50 -Photo Taken Yes -Tunneling No -Undermining/Tunneling No -Circular Undermining No -Exudate Amt Large Large Medium -Exudate Type Serosanguineous Serosanguineous Serosanguineous -Wound Margin Thickened Thickened & Thickened & Rolled Under Rolled Under -Granulation Amt Medium (34-66%) Medium (34-66%) Medium (34-66%) -Granulation Quality Red [place] Pale,[place] -Slough/Fibrin Yes -Necrosis Amt Medium (34-66%) Medium (34-66%) Medium (34-66%) -Necrotic Tissue Type Adherent Slough Adherent Slough Adherent Slough -Structure Exposed N/A N/A -Texture (Margaret-wound Skin Appearance) Localized Edema Localized Edema Assessed ,Scarring -Moisture (Margaret-wound Skin Appearance) Maceration Maceration Assessed -Color (Margaret-wound Skin Appearance) Hemosiderin Assessed Assessed Staining -Temperature (Margaret-wound Skin No Abnormality No Abnormality No Abnormality Appearance) (Pt Warm) (Pt Warm) (Pt Warm) -Tenderness on Palpation (Margaret-wound No No Skin Appearance) -Ulcer Cleansing Soap and Water Rinsed/ Irrigated with Saline -Foul Odor after Cleansing No No No -Anesthetic Used 4% Lidocaine 5% Lidocaine 4% Lidocaine Solution Gel Solution -Wound Comment(s) maceration of L plantar foot and heel Left Calf (cm) 48.5 48.5 Left Ankle (cm) 27.3 27.3 08/08/21 08/15/21 09:51 10:44 Wound Center Nurse 1 4-left plantar arch -Combined with other wound -Current Size (cm) - Length 2.5 5 -Current Size (cm) - Width 4 4.6 -Current Size (cm) - Depth 0.5 0.5 -Total Square Cm 10.0 23.0 -Photo Taken -Tunneling -Undermining/Tunneling -Undermining/Tunneling Starts (O'clock ) -Undermining/Tunneling Ends (O'clock) -Maximum Distance (cm) -Exudate Amt Large Large -Exudate Type Serosanguineous Serosanguineous -Wound Margin Thickened & Thickened Rolled Under -Granulation Amt Medium (34-66%) Medium (34-66%) -Granulation Quality Red Red -Slough/Fibrin -Necrosis Amt Medium (34-66%) Medium (34-66%) -Necrotic Tissue Type Adherent Slough Adherent Slough -Structure Exposed Fascia,Fat Layer Exposed -Texture (Margaret-wound Skin Appearance) Assessed, Scarring Scarring -Moisture (Margaret-wound Skin Appearance) Assessed, Assessed, Maceration Maceration -Color (Margaret-wound Skin Appearance) No Abnormality, No Abnormality, Assessed Assessed -Temperature (Margaret-wound Skin No Abnormality No Abnormality Appearance) (Pt Warm) (Pt Warm) -Tenderness on Palpation (Margaret-wound No No Skin Appearance) -Ulcer Cleansing Rinsed/ Soap and Water Irrigated with Saline -Foul Odor after Cleansing No No -Anesthetic Used 4% Lidocaine 4% Lidocaine Solution,5% Solution Lidocaine Gel #1 left heel cluster -Current Size (cm) - Length 3.3 2.6 -Current Size (cm) - Width 3 0.8 -Current Size (cm) - Depth 0.8 1 -Total Square Cm 9.9 2.08 -Photo Taken -Tunneling -Undermining/Tunneling -Circular Undermining -Exudate Amt Large Large -Exudate Type Serosanguineous Serosanguineous -Wound Margin Distinct, Thickened Outline Attached -Granulation Amt Medium (34-66%) Medium (34-66%) -Granulation Quality Red Red -Slough/Fibrin -Necrosis Amt Medium (34-66%) Medium (34-66%) -Necrotic Tissue Type Adherent Slough Adherent Slough -Structure Exposed -Texture (Margaret-wound Skin Appearance) Assessed,Callus ,Scarring -Moisture (Margaret-wound Skin Appearance) No Abnormality, Assessed, Assessed Maceration -Color (Margaret-wound Skin Appearance) No Abnormality, No Abnormality, Assessed Assessed -Temperature (Margaret-wound Skin No Abnormality No Abnormality Appearance) (Pt Warm) (Pt Warm) -Tenderness on Palpation (Margaret-wound No No Skin Appearance) -Ulcer Cleansing Rinsed/ Soap and Water Irrigated with Saline -Foul Odor after Cleansing No No -Anesthetic Used 4% Lidocaine 4% Lidocaine Solution,5% Solution Lidocaine Gel -Wound Comment(s) Left Calf (cm) 47 Left Ankle (cm) 27 WC - Nurse 2 - General Ulcer CM Notes Start: 07/18/21 09:03 Freq: Status: Active Protocol: Activity Type Activity Date Activity User E-Sign Co-Sign Detail Recorded Client Recorded Date Recorded By Document 07/18/21 09:28 [id number] 07/18/21 09:33 JF Document 07/25/21 09:53 [id number] 07/25/21 09:58 JF Edit Result 07/25/21 09:53 JF (1) [id number] 07/26/21 06:54 PL Document 08/01/21 09:54 [id number] 08/01/21 09:59 JF Document 08/08/21 10:02 [id number] 08/08/21 10:05 Document 08/13/21 15:22 [id number] 08/13/21 15:23 JF Edit Result 08/13/21 15:22 JF (2) [id number] 08/14/21 07:28 PL Document 08/15/21 11:07 [id number] 08/15/21 11:14 JF (1) #1 left heel cluster - Debridement, SubQ, ea addt'l 20sq cm 1 => or part thereof (2) 4-left plantar arch - Type of Offloading => Total Contact Cast => (TCC) - Left ($) 07/18/21 07/25/21 08/01/21 09:28 09:53 09:54 Wound Center Nurse 2 4-left plantar arch -Time : 09:54 09:55 -Correct Patient Yes Yes Yes -Correct Side, Site, Position Yes Yes Yes -Correct Procedure Yes Yes Yes -Procedure Performed Yes Yes Yes -Type of Procedure Debridement Debridement Debridement -Clinical Debridement Muscle / Fascia Subcutaneous Subcutaneous -Tissue Removed Tendon Subcutaneous Subcutaneous -Post Debridement (cm) - Length 7.5 7.1 6.5 -Post Debridement (cm) - Width 8.5 6 5.3 -Post Debridement (cm) - Depth 0.6 0.8 0.3 -Total Square (Post) (cm) 63.75 42.6 34.45 -Area of Debridement (cm) - Length 7.5 7.1 6.5 -Area of Debridement (cm) - Width 8.5 6.0 5.3 -Total Square (Area) (cm) 63.75 42.60 34.45 -Tunneling No No No -Undermining/Tunneling No No No -Circular Undermining No No No -Wound/Ulcer Outcome Not Healed Not Healed Not Healed -Ulcer Cleansing Rinsed/ Rinsed/ Rinsed/ Irrigated with Irrigated with Irrigated with Saline Saline Saline -Foul Odor after Cleansing No No No -Bioengineered Tissue No No No -Bleeding Controlled with Pressure Pressure Pressure -Treatment Response Procedure Procedure Procedure Tolerated Well Tolerated Well Tolerated Well -Offloading Yes Yes No -Type of Offloading Knee Walker Surgical Shoe -Debridement - Subq, 1st 20sq cm No Yes No -Debridement, SubQ, ea addt'l 20sq cm 3 or part thereof -Debridement - Muscle / Fascia, 1st Yes 20sq cm #1 left heel cluster -Time : 09:55 09:55 -Correct Patient Yes Yes Yes -Correct Side, Site, Position Yes Yes Yes -Correct Procedure Yes Yes Yes -Procedure Performed Yes Yes Yes -Type of Procedure Debridement Debridement Debridement -Clinical Debridement Subcutaneous Subcutaneous Subcutaneous -Tissue Removed Subcutaneous Subcutaneous Subcutaneous -Post Debridement (cm) - Length 2.8 3.8 3.1 -Post Debridement (cm) - Width 3.1 6.4 3.5 -Post Debridement (cm) - Depth 1 1.6 2.0 -Total Square (Post) (cm) 8.68 24.32 10.85 -Area of Debridement (cm) - Length 2.8 3.8 3.1 -Area of Debridement (cm) - Width 3.1 6.4 3.5 -Total Square (Area) (cm) 8.68 24.32 10.85 -Tunneling No No No -Undermining/Tunneling No No No -Circular Undermining No No No -Wound/Ulcer Outcome Not Healed Not Healed Not Healed -Ulcer Cleansing Rinsed/ Rinsed/ Rinsed/ Irrigated with Irrigated with Irrigated with Saline Saline Saline -Foul Odor after Cleansing No No No -Bioengineered Tissue No No No -Bleeding Controlled with Pressure Pressure Pressure -Treatment Response Procedure Procedure Procedure Tolerated Well Tolerated Well Tolerated Well -Offloading Yes No No -Type of Offloading Knee Walker -Assistive Device(s) -Debridement - Subq, 1st 20sq cm Yes No Yes -Debridement, SubQ, ea addt'l 20sq cm 2 or part thereof Pain Scale: 0-10 Numeric Is Patient Pain Free? Yes Yes Yes 08/08/21 08/13/21 08/15/21 10:02 15:22 11:07 Wound Center Nurse 2 4-left plantar arch -Time 10:02 11:08 -Correct Patient Yes No Yes -Correct Side, Site, Position Yes No Yes -Correct Procedure Yes No Yes -Procedure Performed Yes No Yes -Type of Procedure Debridement Debridement -Clinical Debridement Subcutaneous Subcutaneous -Tissue Removed Subcutaneous Subcutaneous -Post Debridement (cm) - Length 2.5 4.9 -Post Debridement (cm) - Width 4.1 4.7 -Post Debridement (cm) - Depth 0.5 0.6 -Total Square (Post) (cm) 10.25 23.03 -Area of Debridement (cm) - Length 2.5 4.9 -Area of Debridement (cm) - Width 4.1 4.7 -Total Square (Area) (cm) 10.25 23.03 -Tunneling No No -Undermining/Tunneling No No -Circular Undermining No No -Wound/Ulcer Outcome Not Healed Not Healed Not Healed -Ulcer Cleansing Rinsed/ Rinsed/ Irrigated with Irrigated with Saline Saline -Foul Odor after Cleansing No No -Bioengineered Tissue No No -Bleeding Controlled with Pressure NA -Treatment Response Procedure Procedure Tolerated Well Tolerated Well -Offloading Yes Yes -Type of Offloading Total Contact Total Contact Total Contact Cast (TCC) - Cast (TCC) - Cast (TCC) - Left ($) Left ($) Left ($) -Debridement - Subq, 1st 20sq cm No No No -Debridement, SubQ, ea addt'l 20sq cm or part thereof -Debridement - Muscle / Fascia, 1st 20sq cm #1 left heel cluster -Time 10:03 11:08 -Correct Patient Yes No Yes -Correct Side, Site, Position Yes No Yes -Correct Procedure Yes No Yes -Procedure Performed Yes No Yes -Type of Procedure Debridement Debridement -Clinical Debridement Subcutaneous Subcutaneous -Tissue Removed Subcutaneous Subcutaneous -Post Debridement (cm) - Length 3.4 2.6 -Post Debridement (cm) - Width 3.0 3 -Post Debridement (cm) - Depth 0.8 0.4 -Total Square (Post) (cm) 10.20 7.8 -Area of Debridement (cm) - Length 3.4 2.6 -Area of Debridement (cm) - Width 3.0 3.0 -Total Square (Area) (cm) 10.20 7.80 -Tunneling No No -Undermining/Tunneling No No -Circular Undermining No No -Wound/Ulcer Outcome Not Healed Not Healed Not Healed -Ulcer Cleansing Rinsed/ Rinsed/ Irrigated with Irrigated with Saline Saline -Foul Odor after Cleansing No No -Bioengineered Tissue No No -Bleeding Controlled with Pressure Pressure -Treatment Response Procedure Procedure Tolerated Well Tolerated Well -Offloading No No -Type of Offloading -Assistive Device(s) Walker -Debridement - Subq, 1st 20sq cm Yes Yes -Debridement, SubQ, ea addt'l 20sq cm 1 1 or part thereof Pain Scale: 0-10 Numeric Is Patient Pain Free? Yes Yes Yes WC - Nurse 3 - General Ulcer D/C NN Start: 07/18/21 09:03 Freq: Status: Active Protocol: Activity Type Activity Date Activity User E-Sign Co-Sign Detail Recorded Client Recorded Date Recorded By Document 07/18/21 11:31 DL [id number] 07/18/21 11:32 DL Edit Result 07/18/21 11:31 DL (1) [id number] 07/19/21 18:37 PL Document 07/25/21 11:49 DL [id number] 07/25/21 11:50 DL Document 08/01/21 10:04 DL [id number] 08/01/21 10:08 DL Document 08/08/21 10:27 JF [id number] 08/08/21 10:28 JF Document 08/13/21 14:47 KR [id number] 08/13/21 15:12 KR Document 08/15/21 11:29 RB [id number] 08/15/21 11:40 RB (1) 4-left plantar arch - NPWT Application Charge NPWT </= 50 sq cm => NPWT & Debridement ($) => (nc) #1 left heel cluster - NPWT Application Charge NPWT </= 50 sq cm => NPWT & Debridement ($) => (nc) 07/18/21 07/25/21 08/01/21 11:31 11:49 10:04 Wound Care Nurse 3 4-left plantar arch -Ulcer Cleansing Soap and Water Soap and Water Rinsed/ Irrigated with Saline -Foul Odor after Cleansing No No No -Negative Pressure Wound Therapy Continue -Setting (mmHg) 125 -Negative Pressure is Continuous -Primary Dressing Applied Aquacel AG 4x4 -Other Dressing -Primary Dressing Covered/Secured with Dry Gauze & Dry Gauze & Dry Gauze & Roll Gauze Roll Gauze, Roll Gauze, Secured with Secured with Tape Tape -Other Covering superabsorber -NPWT Application Charge NPWT & Debridement (nc ) -Aquacel AG 4x4 1 -Optilok 6.5x10 -Silvercel #1 left heel cluster -Ulcer Cleansing Soap and Water Rinsed/ Irrigated with Saline -Foul Odor after Cleansing No No -Negative Pressure Wound Therapy Continue -Setting (mmHg) 125 -Negative Pressure is Continuous -Primary Dressing Applied -Other Dressing aquacel ag -Primary Dressing Covered/Secured with Dry Gauze & Dry Gauze & Roll Gauze Roll Gauze, Secured with Tape -NPWT Application Charge NPWT & Debridement (nc ) -Aquacel AG 4x4 -Optilok 6.5x10 Left -Compression Wrap Kevin Wrap Kevin Wrap -Other Treatment Response Procedure Procedure Procedure Tolerated Well Tolerated Well Tolerated Well Vital Signs Temperature (97.8 F-99.1 F) Temperature Source Pulse Rate (60-100) Pulse Location Blood Pressure (90/60-120/80) Blood Pressure Mean (mm Hg) Source Position Blood Pressure Location Pain Scale: 0-10 Numeric Is Patient Pain Free? Yes Yes Yes WC - Visit Discharge Discharge Condition Stable Stable Stable Ambulatory Status Wheelchair Wheelchair Wheelchair Transportation Medication Reconcilliation completed & provided to patient/care provider Clinical Summary of Care Provided Notes: Pt to start Dakins at home. Vac on hold. Facility Type [facility] Splitter Operator Care Facility Orders Sent Yes Yes Yes 08/08/21 08/13/21 08/15/21 10:27 14:47 11:29 Wound Care Nurse 3 4-left plantar arch -Ulcer Cleansing Rinsed/ Wound Cleanser Irrigated with Saline -Foul Odor after Cleansing No -Negative Pressure Wound Therapy -Setting (mmHg) -Negative Pressure is -Primary Dressing Applied Aquacel AG 4x4, Optilok 6.5x10, Optilok 6.5x10 Silvercel -Other Dressing superabsorber -Primary Dressing Covered/Secured with -Other Covering -NPWT Application Charge -Aquacel AG 4x4 0 -Optilok 6.5x10 0 1 -Silvercel 1 #1 left heel cluster -Ulcer Cleansing Wound Cleanser Wound Cleanser -Foul Odor after Cleansing No -Negative Pressure Wound Therapy -Setting (mmHg) -Negative Pressure is -Primary Dressing Applied Aquacel AG 4x4, Optilok 6.5x10 -Other Dressing silvercel andsuper absorber -Primary Dressing Covered/Secured with -NPWT Application Charge -Aquacel AG 4x4 1 -Optilok 6.5x10 1 Left -Compression Wrap -Other TCC under cast applied Treatment Response Procedure Tolerated Well Vital Signs Temperature (97.8 F-99.1 F) 97.4 F L Temperature Source Temporal Pulse Rate (60-100) 66 Pulse Location Monitor Blood Pressure (90/60-120/80) 155/70 H Blood Pressure Mean (mm Hg) 98 Source Monitor Position Sitting Blood Pressure Location Right Arm Pain Scale: 0-10 Numeric Is Patient Pain Free? Yes Yes Yes WC - Visit Discharge Discharge Condition Stable Stable Stable Ambulatory Status Walker Wheelchair Wheelchair Transportation Private Auto Private Auto Private Auto Medication Reconcilliation completed & Yes No provided to patient/care provider Clinical Summary of Care Provided Yes Yes Notes: primary layr of 4 inch TCC Facility Type Orders Sent Assessment/Plan Assessment/Plan (1) Type 2 diabetes mellitus with diabetic polyneuropathy: CODE(S): E11.42 - Type 2 diabetes mellitus with diabetic polyneuropathy QUALIFIERS: Diabetes mellitus computer terminal operator insulin use: with computer terminal operator use Qualified Code(s): E11.42 - Type 2 diabetes mellitus with diabetic polyneuropathy; Z79.4 - senior living (current) use of insulin (2) Delayed wound healing: CODE(S): T14.8XXD - Other injury of unspecified body region, subsequent encounter (3) Tobacco abuse: CODE(S): Z72.0 - Tobacco use (4) Obesity: CODE(S): E66.9 - Obesity, unspecified QUALIFIERS: Body mass index: BMI 33.0-33.9 Obesity classification: adult class 1 (BMI 30 - 34.9) Obesity type: due to excess calories Serious obesity comorbidity presence: with serious comorbidity Qualified Code(s): E66.09 - Other obesity due to excess calories; Z68.33 - Body mass index [BMI] 33.0-33.9, adult (5) Difficulty in walking: CODE(S): R26.2 - Difficulty in walking, not elsewhere classified (6) 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 I reviewed and discussed his case. Debridement was performed as noted in the clinical nursing panel. Dressing recommendation: aquacel ag was applied to wound bed prior to total contact cast application today. Patient wound is noted to have improved with healthier appearance and there is no malodor. There are no local signs infection noted today. He was seen by infectious disease during his last hospital admission and he had surgery on 05-29-2021. His surgical cultures had MRSA, Enterococcus, klebs, Proteus and it was down to deep tissue. He completed a 2-week course of IV vancomycin and Unasyn and then followed up with 4 weeks of oral doxycycline and Augmentin with a stop date of 07-10-21. Offloading: To continue offloading with cam walker boot and strict use of knee roller. To use assistive device to maintain nonweightbearing status. Compliance was reiterated and it does not appear he has been able to successfully stay off of the ulcer. Failure to do so will likely contribute to the need for amputation. He is amendable to have a total contact cast applied today and verbal consent was obtained. This was applied according to standard protocol in a neutral position a well-padded manner. He tolerated this well. To keep clean, dry, and intact until follow-up visit next week. Patient relates he had follow-up appointment with his primary care provider, Priyanka Brown, and relates that she did not change any medication and stated he was doing okay. 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 Mykel Barraza. He was able to follow-up and recommendations were updated. Discussed importance of cleaning and maintaining foot both to prevent infection as well as to prevent future wounds. Discussed he is at higher risk for wounds due to his diabetes, neuropathy, hyperglycemia, obesity, swelling, and tobacco abuse. Discussed that he needs to cut back on his smoking, preferably quit, and better controlling his blood sugar to better optimize his healing. Patient has not improved his tobacco abuse or his hyperglycemia. Reviewed how pressure will impact the wound. Arterial studies were reviewed. Showing likely adequate perfusion for healing. Right LAI is 0.99 and left 1.18. Right toe brachial index 0.76 and left 0.71. Referral to Dr. Campos for potential venous and arterial intervention was provided today. He went for consultationon 04-11-21. Will recheck duplex to make sure normal posterior tibial flow into the area of the wound. normal prior LAI noted. Edema management: tubigrip and kevin wrap at follow-up visits if he does not have a cast on; at this time the cast is also contributing to edema management. to elevate. To discuss potential water pill application with his primary care physician. Host factors: His multiple comorbidities are noted including diabetes and smoking history. Also recommend improvement in nutritional status which involves taking in adequate protein and also focusing on eating 5-10 whole foods daily. All questions answered. He understands below-knee amputation is an option as well if he cannot keep pressure off the site, if pain becomes intolerable, and if he no longer is able to proceed with a comprehensive wound healing plan. He defers at this time. Patient to follow up in 1 week or call sooner if status worsening or if questions. I answered all of his questions. This note was generated with [employer] dictation software. It may contain incorrect words, spelling, and punctuation that were not noted in checking the note before signing.
== END 2021-08-16 23:59 | disposition home or self-care (01) ==
LOC: WC 10:45
PROVIDERS: Referring Provider Podiatrist Foot & Ankle Surgery; Visit Provider Podiatrist
DX: E11.621 Type 2 diabetes mellitus with foot ulcer (principal); L97.522 Non-pressure chronic ulcer of other part of left foot with fat layer exposed; L97.422 Non-pressure chronic ulcer of left heel and midfoot with fat layer exposed; E11.42 Type 2 diabetes mellitus with diabetic polyneuropathy; Z79.4 Long term (current) use of insulin; L03.116 Cellulitis of left lower limb; E66.9 Obesity, unspecified; R26.2 Difficulty in walking, not elsewhere classified; R60.0 Localized edema; Z72.0 Tobacco use; Z68.33 Body mass index [BMI] 33.0-33.9, adult
CPT/HCPCS: 11042; 11043; 11045; 29445; 97605; 99212; G0463

== ENCOUNTER 2021-09-12 11:00 | Outpatient (RCR) | payer MEDICARE, BC, SELFPAY ==
[2021-08-17 00:29] VITALS: BP 125/64; PULSE 64; RESP 18; TEMP 36.1; BMI 33.7
[2021-08-20 10:02] VITALS: BP 145/77; PULSE 61; TEMP 36.2; BMI 33.7
--- NOTE | 2021-08-20 12:24 | PCM.WC.PN ---
History of Present Illness Date of Service: 08/20/21 Chief Complaint: left heel and arch ulcers History of Wound: Patient presents for chronic non healing wound to left plantar foot (heel and arch). A limb and life-threatening infection which required emergent surgical intervention on 05-29-2021. He then subsequently resided in the transitional care unit for wound care which she completed a course of IV antibiotics. He changed his dressing as advised and there is reduced moisture. He denies fever, chill, nausea, vomiting, pain, odor, redness. He is keeping weight off of his foot he reports. He has a knee roller at home.he is ready to have a total contact cast applied today. He has a lot of drainage and sometimes requires an additional appointment for removal and reapplication. Progress of Wound: Courtesy visit for a total contact cast placement. He comes in today with concern of how bad his left foot drainage and odor are present. He has been tolerating his TCC well. There is visual improvement in the ulcers on his left foot. Objective Data Objective Data Vital Signs: Vital Signs Temp Pulse Resp BP 97.1 F L 61 18 145/77 H 08/20/21 10:02 08/20/21 10:02 08/17/21 00:29 08/20/21 10:02 Body Mass Index (BMI) 33.7 Charges/Coding Visit Charges Office Visits / Consults: 58828 OV L2 Est (modifier 25, CPT - 59666 Left foot total contact cast) Physical Exam Const alert and oriented x3 General Appearance: cooperative Resp normal respiratory effort Cardio regular rate Skin Wound Narrative: Left heel and left midfoot ulcers are improved compared to last week, usint the TCC. Margaret wound is stable. No breakdown on other part of foot and ankle from TCC Neuro CN's II-XII intact bilaterally Debridement Note Debridement Note No debridement was completed: No debridement was completed today Post-Debridement Measurements and Additional Note: Post-Debridement Measurements/Treatment JANESSA - Nurse 1 - General Ulcer Assessment Start: 08/20/21 10:01 Freq: Status: Active Protocol: EVELYN Activity Type Activity Date Activity User E-Sign Co-Sign Detail Recorded Client Recorded Date Recorded By Document 08/20/21 10:02 VASQUEZ [id number] 08/20/21 10:16 VASQUEZ 08/20/21 10:02 - Today's Visit Information Type of service Nurse-only Visit Arrival Mode Wheelchair Patient Identification Verified (Name & Yes ) Height and Weight Body Mass Index (BMI) 33.7 BMI Classification Obese Vital Signs Temperature (97.8 F-99.1 F) 97.1 F L Temperature Source Temporal Pulse Rate (60-100) 61 Pulse Location Monitor Blood Pressure (90/60-120/80) 145/77 H Blood Pressure Mean (mm Hg) 99 Source Monitor Position Sitting Blood Pressure Location Left Arm History Since Last Visit- (Skip if this is Patient's initial visit) Have you changed medications since your No last visit? Any new allergies or adverse reactions No Had a fall/change in ADL's that may No increase risk of falls Signs or symptoms of abuse and/or No neglect since last visit Have you been in the hospital since your No last visit? Has dressing in place as prescribed Yes Has compression in place as prescribed N/A Has offloadiing in place as prescribed Yes Experienced any changes in pain level or No management Left Footwear Total Contact Cast Right Footwear Regular Shoe Pain Scale: 0-10 Numeric Is Patient Pain Free? Yes - Nurse 2 - General Ulcer CM Notes Start: 08/20/21 10:01 Freq: Status: Active Protocol: Activity Type Activity Date Activity User E-Sign Co-Sign Detail Recorded Client Recorded Date Recorded By Document 08/20/21 11:24 DANIEL [id number] 08/20/21 11:25 DANIEL 08/20/21 11:24 Wound Center Nurse 2 4-left plantar arch -Correct Patient No -Correct Side, Site, Position No -Correct Procedure No -Procedure Performed No -Wound/Ulcer Outcome Not Healed #1 left heel cluster -Correct Patient No -Correct Side, Site, Position No -Correct Procedure No -Procedure Performed No -Wound/Ulcer Outcome Not Healed -Offloading Yes -Type of Offloading Total Contact Cast (TCC) - Left ($) Pain Scale: 0-10 Numeric Is Patient Pain Free? Yes - Nurse 3 - General Ulcer D/C NN Start: 08/20/21 10:01 Freq: Status: Active Protocol: Activity Type Activity Date Activity User E-Sign Co-Sign Detail Recorded Client Recorded Date Recorded By Document 08/20/21 10:17 VASQUEZ [id number] 08/20/21 10:18 VASQUEZ 08/20/21 10:17 Wound Care Nurse 3 4-left plantar arch -Ulcer Cleansing Rinsed/ Irrigated with Saline -Primary Dressing Applied Optilok 6.5x10, Silvercel -Primary Dressing Covered/Secured with Secured with Tape -Optilok 6.5x10 1 -Silvercel 1 Left -Other TCC under casting Pain Scale: 0-10 Numeric Is Patient Pain Free? Yes WC - Visit Discharge Discharge Condition Stable Ambulatory Status Wheelchair Transportation Private Auto Assessment/Plan Assessment/Plan (1) Delayed wound healing: CODE(S): T14.8XXD - Other injury of unspecified body region, subsequent encounter (2) Ulcer of left foot with necrosis of muscle: CODE(S): L97.523 - Non-pressure chronic ulcer of other part of left foot with necrosis of muscle (3) Localized edema: CODE(S): R60.0 - Localized edema (4) Maceration of skin: CODE(S): L98.8 - Other specified disorders of the skin and subcutaneous tissue (5) Ulcer of left foot with necrosis of muscle: CODE(S): L97.523 - Non-pressure chronic ulcer of other part of left foot with necrosis of muscle (6) Diabetes mellitus: CODE(S): E11.9 - Type 2 diabetes mellitus without complications (7) Bilateral edema of lower extremity: CODE(S): R60.0 - Localized edema (8) Tobacco abuse: CODE(S): Z72.0 - Tobacco use (9) Difficulty in walking: CODE(S): R26.2 - Difficulty in walking, not elsewhere classified (10) Ulcer of left foot with fat layer exposed: CODE(S): L97.522 - Non-pressure chronic ulcer of other part of left foot with fat layer exposed
[2021-08-22 09:18] VITALS: BP 145/78; PULSE 63; RESP 18; TEMP 36.3; BMI 33.7
--- NOTE | 2021-08-22 11:32 | PCM.WC.PN ---
History of Present Illness Date of Service: 08/22/21 Chief Complaint: left heel and arch ulcers History of Wound: Patient presents for chronic non healing wound to left plantar foot (heel and arch). A limb and life-threatening infection which required emergent surgical intervention on 05-29-2021. He then subsequently resided in the transitional care unit for wound care which she completed a course of IV antibiotics. He changed his dressing as advised and there is reduced moisture. He denies fever, chill, nausea, vomiting, pain, odor, redness. He is keeping weight off of his foot he reports. He has a knee roller at home. he is ready to have a total contact cast applied today. He has a lot of drainage and sometimes requires an additional appointment for removal and reapplication. Progress of Wound: improving Objective Data Objective Data Vital Signs: Vital Signs Temp Pulse Resp BP 97.3 F L 63 18 145/78 H 08/22/21 09:18 08/22/21 09:18 08/22/21 09:18 08/22/21 09:18 Body Mass Index (BMI) 33.7 Physical Exam Narrative Const alert and no apparent distress General Appearance: cooperative and comfortable Extremity There is diffuse left foot/ankle and leg swelling. Left foot s/p debridement to arch and heel, tissues are healthy and viable, granular. no longer visualized fascia and muscle layer. There is no streaking or odor, compartments remain soft to palpate, there is no fluctuance or bogginess on palpation, no drainage, no visible abscess, no cellulitis, no blistering present. At the plantar arch, there is devitalized exposed fascia?tendon which is no longer directly visualized. Hematogenous drainage only upon debridement. Periwound moisture and maceration is significantly decreased. reduced ulcer depth is noted also General Extremity: Negative for clubbing or cyanosis to digits. Vasc normal capillary refill, no acute ischemic skin changes noted, normal temperature bilateral. Skin Skin Narrative: Wound Narrative: Neuro Neuro Narrative: Debridement Note Debridement Note Wound debrided: left arch, left heel Wound Grade/Stage: 3,3 Type of Debridement: Excisional debridement Anesthesia Used: 4% Lidocaine Solution Depth: in the subcutaneous layer Percentage of wound debrided: 100 Instrument Used: #15 blade Tissue Removed: fibrous, devitalized subcutaneous, biofilm, slough Severity: Fat Layer Exposed Amount of bleeding with debridement: Mild Bleeding Controlled with: Pressure Patient tolerated procedure: Patient tolerated procedure well Post-Debridement Measurements and Additional Note: Post-Debridement Measurements/Treatment WC - Nurse 1 - General Ulcer Assessment Start: 08/20/21 10:01 Freq: Status: Active Protocol: EVELYN Activity Type Activity Date Activity User E-Sign Co-Sign Detail Recorded Client Recorded Date Recorded By Document 08/20/21 10:02 KR [id number] 08/20/21 10:16 KR Document 08/22/21 09:18 RB [id number] 08/22/21 09:26 RB 08/20/21 08/22/21 10:02 09:18 WC - Today's Visit Information Type of service Nurse-only Follow-up Visit Visit (Physician/AUTOMOTIVE PARTS COORDINATOR ) Arrival Mode Wheelchair Wheelchair Transfer Assistance Manual Patient Identification Verified (Name & Yes Yes ) Patient Requires Transmission-Based No Precautions Height and Weight Body Mass Index (BMI) 33.7 33.7 BMI Classification Obese Obese Vital Signs Temperature (97.8 F-99.1 F) 97.1 F L 97.3 F L Temperature Source Temporal Temporal Pulse Rate (60-100) 61 63 Pulse Location Monitor Apical Respiratory Rate (12-18) 18 Respiratory rate source Observation Blood Pressure (90/60-120/80) 145/77 H 145/78 H Blood Pressure Mean (mm Hg) 99 100 Source Monitor Monitor Position Sitting Semi-Fowlers Blood Pressure Location Left Arm Left Forearm History Since Last Visit- (Skip if this is Patient's initial visit) Have you changed medications since your No No last visit? Any new allergies or adverse reactions No No Had a fall/change in ADL's that may No No increase risk of falls Signs or symptoms of abuse and/or No No neglect since last visit Have you been in the hospital since your No No last visit? Has dressing in place as prescribed Yes Yes Has compression in place as prescribed N/A Has offloadiing in place as prescribed Yes Yes Experienced any changes in pain level or No No management Left Footwear Total Contact Total Contact Cast Cast Right Footwear Regular Shoe Regular Shoe Pain Scale: 0-10 Numeric Is Patient Pain Free? Yes Yes JANESSA - Nurse 1 - General Ulcer Measurement Start: 08/20/21 10:01 Freq: Status: Active Protocol: Activity Type Activity Date Activity User E-Sign Co-Sign Detail Recorded Client Recorded Date Recorded By Document 08/22/21 09:18 [id number] 08/22/21 09:26 RB 08/22/21 09:18 Wound Center Nurse 1 4-left plantar arch -Combined with other wound No -Current Size (cm) - Length 5 -Current Size (cm) - Width 4.8 -Current Size (cm) - Depth 0.2 -Total Square Cm 24.0 -Tunneling No -Undermining/Tunneling No -Circular Undermining No -Exudate Amt Large -Exudate Type Serosanguineous -Wound Margin Thickened & Rolled Under -Granulation Amt Medium (34-66%) -Granulation Quality [place] -Slough/Fibrin Yes -Necrosis Amt Medium (34-66%) -Necrotic Tissue Type Adherent Slough -Structure Exposed N/A -Texture (Margaret-wound Skin Appearance) Assessed -Moisture (Margaret-wound Skin Appearance) Maceration -Color (Margaret-wound Skin Appearance) Assessed -Temperature (Margaret-wound Skin No Abnormality Appearance) (Pt Warm) -Tenderness on Palpation (Margaret-wound No Skin Appearance) -Ulcer Cleansing Wound Cleanser -Foul Odor after Cleansing No -Anesthetic Used 4% Lidocaine Solution #1 left heel cluster -Current Size (cm) - Length 2.7 -Current Size (cm) - Width 2.8 -Current Size (cm) - Depth 1 -Total Square Cm 7.56 -Tunneling No -Undermining/Tunneling No -Circular Undermining No -Exudate Amt Large -Exudate Type Serosanguineous -Wound Margin Thickened & Rolled Under -Granulation Amt Medium (34-66%) -Granulation Quality [place] -Slough/Fibrin Yes -Necrosis Amt Medium (34-66%) -Necrotic Tissue Type Adherent Slough -Structure Exposed N/A -Texture (Margaret-wound Skin Appearance) Callus -Moisture (Margaret-wound Skin Appearance) Maceration -Color (Margaret-wound Skin Appearance) Assessed -Temperature (Margaret-wound Skin No Abnormality Appearance) (Pt Warm) -Tenderness on Palpation (Margaret-wound No Skin Appearance) -Ulcer Cleansing Wound Cleanser -Foul Odor after Cleansing No -Anesthetic Used 4% Lidocaine Solution WC - Nurse 2 - General Ulcer CM Notes Start: 08/20/21 10:01 Freq: Status: Active Protocol: Activity Type Activity Date Activity User E-Sign Co-Sign Detail Recorded Client Recorded Date Recorded By Document 08/20/21 11:24 DANIEL [id number] 08/20/21 11:25 DANIEL Document 08/22/21 09:33 DANIEL [id number] 08/22/21 09:38 DANIEL 08/20/21 08/22/21 11:24 09:33 Wound Center Nurse 2 4-left plantar arch -Time 09:34 -Correct Patient No Yes -Correct Side, Site, Position No Yes -Correct Procedure No Yes -Procedure Performed No Yes -Type of Procedure Debridement -Clinical Debridement Subcutaneous -Tissue Removed Subcutaneous -Post Debridement (cm) - Length 5 -Post Debridement (cm) - Width 4.8 -Post Debridement (cm) - Depth 0.2 -Total Square (Post) (cm) 24.0 -Area of Debridement (cm) - Length 5.0 -Area of Debridement (cm) - Width 4.8 -Total Square (Area) (cm) 24.00 -Tunneling No -Undermining/Tunneling No -Circular Undermining No -Wound/Ulcer Outcome Not Healed Not Healed -Ulcer Cleansing Rinsed/ Irrigated with Saline -Foul Odor after Cleansing No -Bioengineered Tissue No -Bleeding Controlled with Pressure -Treatment Response Procedure Tolerated Well -Offloading Yes -Type of Offloading Total Contact Cast (TCC) - Left ($) -Debridement - Subq, 1st 20sq cm Yes -Debridement, SubQ, ea addt'l 20sq cm 1 or part thereof #1 left heel cluster -Time 09:36 -Correct Patient No Yes -Correct Side, Site, Position No Yes -Correct Procedure No Yes -Procedure Performed No Yes -Type of Procedure Debridement -Clinical Debridement Subcutaneous -Tissue Removed Subcutaneous -Post Debridement (cm) - Length 2.8 -Post Debridement (cm) - Width 2.8 -Post Debridement (cm) - Depth 1.0 -Total Square (Post) (cm) 7.84 -Area of Debridement (cm) - Length 2.8 -Area of Debridement (cm) - Width 2.8 -Total Square (Area) (cm) 7.84 -Tunneling No -Undermining/Tunneling No -Circular Undermining No -Wound/Ulcer Outcome Not Healed Not Healed -Ulcer Cleansing Wound Cleanser -Foul Odor after Cleansing No -Bioengineered Tissue No -Bleeding Controlled with Pressure -Treatment Response Procedure Tolerated Well -Offloading Yes No -Type of Offloading Total Contact Cast (TCC) - Left ($) -Debridement - Subq, 1st 20sq cm No Pain Scale: 0-10 Numeric Is Patient Pain Free? Yes Yes - Nurse 3 - General Ulcer D/C NN Start: 08/20/21 10:01 Freq: Status: Active Protocol: Activity Type Activity Date Activity User E-Sign Co-Sign Detail Recorded Client Recorded Date Recorded By Document 08/20/21 10:17 KR [id number] 08/20/21 10:18 KR Document 08/22/21 09:42 [facility] [id number] 08/22/21 09:43 BM 08/20/21 08/22/21 10:17 09:42 Wound Care Nurse 3 4-left plantar arch -Ulcer Cleansing Rinsed/ Rinsed/ Irrigated with Irrigated with Saline Saline -Foul Odor after Cleansing No -Primary Dressing Applied Optilok 6.5x10, Optilok 6.5x10, Silvercel Silvercel -Primary Dressing Covered/Secured with Secured with Secured with Tape Tape -Other Covering DRSG PER RB RN; TCC UNDERCAST APPLIED -Optilok 6.5x10 1 1 -Silvercel 1 1 #1 left heel cluster -Ulcer Cleansing Rinsed/ Irrigated with Saline -Foul Odor after Cleansing No -Primary Dressing Applied Optilok 6.5x10, Silvercel -Primary Dressing Covered/Secured with Secured with Tape -Other Covering DRSG AND TCC UNDERCAST APPLIED PER RB RN -Optilok 6.5x10 0 -Silvercel 0 Left -Other TCC under casting Treatment Response Procedure Tolerated Well Pain Scale: 0-10 Numeric Is Patient Pain Free? 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: with residential use Qualified Code(s): E11.42 - Type 2 diabetes mellitus with diabetic polyneuropathy; Z79.4 - 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 economist (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) use of insulin (4) Delayed wound healing: CODE(S): T14.8XXD - Other injury of unspecified body region, subsequent encounter (5) Tobacco abuse: CODE(S): Z72.0 - Tobacco use (6) Obesity: CODE(S): E66.9 - Obesity, unspecified QUALIFIERS: Obesity type: due to excess calories Obesity classification: adult class 1 (BMI 30 - 34.9) Serious obesity comorbidity presence: with serious comorbidity Body mass index: BMI 33.0-33.9 Qualified Code(s): E66.09 - Other obesity due to excess calories; Z68.33 - Body mass index [BMI] 33.0-33.9, adult (7) Difficulty in walking: CODE(S): R26.2 - Difficulty in walking, not elsewhere classified PLAN: Patient seen and examined. I reviewed and discussed his case. Debridement was performed as noted in the clinical nursing panel. Dressing recommendation: silvercel was applied to wound bed with additional superabsorption secondary dressing prior to total contact cast application today. Patient wound is noted to have improved with healthier appearance and there is no malodor. There are no local signs infection noted today. He was seen by infectious disease during his last hospital admission and he had surgery on 05-29-2021. His surgical cultures had MRSA, Enterococcus, klebs, Proteus and it was down to deep tissue. He completed a 2-week course of IV vancomycin and Unasyn and then followed up with 4 weeks of oral doxycycline and Augmentin with a stop date of 07-10-21. Offloading: He is amendable to have a total contact cast applied today and verbal consent was obtained. This was applied according to standard protocol in a neutral position a well-padded manner. He tolerated this well. To keep clean, dry, and intact until follow-up visit on a biweekly basis. Patient relates he had follow-up appointment with his primary care provider, Priyanka Brown, and relates that she did not change any medication and stated he was doing okay. PCP is leaving the diabetes management up to his assembler body, Dr. Mykel Peckam. He was able to follow-up and recommendations were updated. Edema management: Medical management per primary care. To reduce salt in diet. Total contact cast will also aide in edema reduction. Arterial studies were reviewed. Showing likely adequate perfusion for healing. Right LAI is 0.99 and left 1.18. Right toe brachial index 0.76 and left 0.71. Referral to Dr. Campos for potential venous and arterial intervention was provided today. He went for consultationon 04-11-21. Will recheck duplex to make sure normal posterior tibial flow into the area of the wound. normal prior LAI noted. Host factors: His multiple comorbidities are noted including diabetes and smoking history. Also recommend improvement in nutritional status which involves taking in adequate protein and also focusing on eating 5-10 whole foods daily. All questions answered. He understands below-knee amputation is an option as well if he cannot keep pressure off the site, if pain becomes intolerable, and if he no longer is able to proceed with a comprehensive wound healing plan. He defers at this time. Patient to follow up in 1 week or call sooner if status worsening or if questions. I answered all of his questions. This note was generated with [employer] dictation software. It may contain incorrect words, spelling, and punctuation that were not noted in checking the note before signing.
[2021-08-27 09:01] VITALS: BP 155/61; PULSE 64; TEMP 36.3; BMI 33.7
--- NOTE | 2021-08-27 10:30 | PN.PCM_ITS ---
History of Present Illness Date of Service: 08/27/21 Chief Complaint: left heel and arch ulcers History of Wound: Patient presents for chronic non healing wound to left plantar foot (heel and arch). A limb and life-threatening infection which required emergent surgical intervention on 05-29-2021. He then subsequently resided in the transitional care unit for wound care which she completed a course of IV antibiotics. He changed his dressing as advised and there is reduced moisture. He denies fever, chill, nausea, vomiting, pain, odor, redness. He is keeping weight off of his foot he reports. He has a knee roller at home. he is ready to have a total contact cast applied today. He has a lot of drainage and sometimes requires an additional appointment for removal and reapplication. Progress of Wound: Courtesy visit for a total contact cast placement. He comes in today with concern of how bad his left foot drainage and odor are present. He has been tolerating his TCC well. There is visual improvement in the ulcers on his left foot. Objective Data Objective Data Vital Signs: Vital Signs Temp Pulse Resp BP 97.4 F L 64 18 155/61 H 08/27/21 09:01 08/27/21 09:01 08/22/21 09:18 08/27/21 09:01 Body Mass Index (BMI) 33.7 Charges/Coding Addendum Addendum: 24010 - Application of left foot total contact cast Physical Exam Const alert and oriented x3 HEENT normocephalic Resp normal respiratory effort Extremity normal capillary refill General Extremity: edema left lower extremity Skin Wound Narrative: Ulcers to plantar surface of the left heel and left midfoot. The base of both ulcers are beefy pink in color. There is some maceration of th e skin surrounding the ulcers due to the amount of drainage that he has producing. But overall the ulcers are improving with the TCC. Neuro CN's II-XII intact bilaterally Psych Appearance: grossly normal Debridement Note Debridement Note No debridement was completed: No debridement was completed today Post-Debridement Measurements and Additional Note: Post-Debridement Measurements/Treatment JANESSA - Nurse 1 - General Ulcer Assessment Start: 08/20/21 10:01 Freq: Status: Active Protocol: EVELYN Activity Type Activity Date Activity User E-Sign Co-Sign Detail Recorded Client Recorded Date Recorded By Document 08/20/21 10:02 KR [id number] 08/20/21 10:16 KR Document 08/22/21 09:18 RB [id number] 08/22/21 09:26 RB Document 08/27/21 09:01 KR [id number] 08/27/21 09:09 KR 08/20/21 08/22/21 08/27/21 10:02 09:18 09:01 WC - Today's Visit Information Type of service Nurse-only Follow-up Visit Follow-up Visit Visit (Physician/DORMITORY SUPERVISOR (Physician/DORMITORY SUPERVISOR ) ) Arrival Mode Wheelchair Wheelchair Wheelchair Transfer Assistance Manual Patient Identification Verified (Name & Yes Yes Yes ) Patient Requires Transmission-Based No Precautions Finger Stick Blood Sugar(mg/dl) (if 141 indicated): Blood Sugar Stated by Patient Height and Weight Body Mass Index (BMI) 33.7 33.7 33.7 BMI Classification Obese Obese Obese Vital Signs Temperature (97.8 F-99.1 F) 97.1 F L 97.3 F L 97.4 F L Temperature Source Temporal Temporal Temporal Pulse Rate (60-100) 61 63 64 Pulse Location Monitor Apical Monitor Respiratory Rate (12-18) 18 Respiratory rate source Observation Blood Pressure (90/60-120/80) 145/77 H 145/78 H 155/61 H Blood Pressure Mean (mm Hg) 99 100 92 Source Monitor Monitor Monitor Position Sitting Semi-Fowlers Semi-Fowlers Blood Pressure Location Left Arm Left Forearm Right Arm History Since Last Visit- (Skip if this is Patient's initial visit) Have you changed medications since your No No No last visit? Any new allergies or adverse reactions No No No Had a fall/change in ADL's that may No No No increase risk of falls Signs or symptoms of abuse and/or No No No neglect since last visit Have you been in the hospital since your No No No last visit? Has dressing in place as prescribed Yes Yes Yes Has compression in place as prescribed N/A N/A Has offloadiing in place as prescribed Yes Yes Yes Experienced any changes in pain level or No No No management Left Footwear Total Contact Total Contact Total Contact Cast Cast Cast Right Footwear Regular Shoe Regular Shoe Regular Shoe Pain Scale: 0-10 Numeric Is Patient Pain Free? Yes Yes Yes - Nurse 1 - General Ulcer Measurement Start: 08/20/21 10:01 Freq: Status: Active Protocol: Activity Type Activity Date Activity User E-Sign Co-Sign Detail Recorded Client Recorded Date Recorded By Document 08/22/21 09:18 RB [id number] 08/22/21 09:26 RB Document 08/27/21 09:01 KR [id number] 08/27/21 09:09 KR 08/22/21 08/27/21 09:18 09:01 Wound Center Nurse 1 4-left plantar arch -Combined with other wound No -Current Size (cm) - Length 5 5.8 -Current Size (cm) - Width 4.8 4.2 -Current Size (cm) - Depth 0.2 0.2 -Total Square Cm 24.0 24.36 -Tunneling No -Undermining/Tunneling No -Circular Undermining No -Exudate Amt Large Large -Exudate Type Serosanguineous Serosanguineous -Wound Margin Thickened & Distinct, Rolled Under Outline Attached -Granulation Amt Medium (34-66%) Medium (34-66%) -Granulation Quality [place] Red -Slough/Fibrin Yes -Necrosis Amt Medium (34-66%) Medium (34-66%) -Necrotic Tissue Type Adherent Slough Adherent Slough -Structure Exposed N/A Fat Layer Exposed -Texture (Margaret-wound Skin Appearance) Assessed Assessed, Scarring -Moisture (Margaret-wound Skin Appearance) Maceration Assessed, Maceration -Color (Margaret-wound Skin Appearance) Assessed No Abnormality, Assessed -Temperature (Margaret-wound Skin No Abnormality No Abnormality Appearance) (Pt Warm) (Pt Warm) -Tenderness on Palpation (Margaret-wound No No Skin Appearance) -Ulcer Cleansing Wound Cleanser Soap and Water -Foul Odor after Cleansing No Yes -Anesthetic Used 4% Lidocaine 4% Lidocaine Solution Solution #1 left heel cluster -Current Size (cm) - Length 2.7 2.5 -Current Size (cm) - Width 2.8 2.8 -Current Size (cm) - Depth 1 0.2 -Total Square Cm 7.56 7.00 -Tunneling No -Undermining/Tunneling No -Circular Undermining No -Exudate Amt Large Large -Exudate Type Serosanguineous Serosanguineous -Wound Margin Thickened & Distinct, Rolled Under Outline Attached -Granulation Amt Medium (34-66%) Medium (34-66%) -Granulation Quality [place] Red -Slough/Fibrin Yes -Necrosis Amt Medium (34-66%) Medium (34-66%) -Necrotic Tissue Type Adherent Slough Adherent Slough -Structure Exposed N/A Fat Layer Exposed -Texture (Margaret-wound Skin Appearance) Callus Assessed, Scarring -Moisture (Margaret-wound Skin Appearance) Maceration Assessed, Maceration -Color (Margaret-wound Skin Appearance) Assessed No Abnormality, Assessed -Temperature (Margaret-wound Skin No Abnormality No Abnormality Appearance) (Pt Warm) (Pt Warm) -Tenderness on Palpation (Margaret-wound No No Skin Appearance) -Ulcer Cleansing Wound Cleanser Soap and Water -Foul Odor after Cleansing No Yes -Anesthetic Used 4% Lidocaine 4% Lidocaine Solution Solution Left Calf (cm) 50.5 Left Ankle (cm) 31 WC - Nurse 2 - General Ulcer CM Notes Start: 08/20/21 10:01 Freq: Status: Active Protocol: Activity Type Activity Date Activity User E-Sign Co-Sign Detail Recorded Client Recorded Date Recorded By Document 08/20/21 11:24 [id number] 08/20/21 11:25 Document 08/22/21 09:33 [id number] 08/22/21 09:38 08/20/21 08/22/21 11:24 09:33 Wound Center Nurse 2 4-left plantar arch -Time 09:34 -Correct Patient No Yes -Correct Side, Site, Position No Yes -Correct Procedure No Yes -Procedure Performed No Yes -Type of Procedure Debridement -Clinical Debridement Subcutaneous -Tissue Removed Subcutaneous -Post Debridement (cm) - Length 5 -Post Debridement (cm) - Width 4.8 -Post Debridement (cm) - Depth 0.2 -Total Square (Post) (cm) 24.0 -Area of Debridement (cm) - Length 5.0 -Area of Debridement (cm) - Width 4.8 -Total Square (Area) (cm) 24.00 -Tunneling No -Undermining/Tunneling No -Circular Undermining No -Wound/Ulcer Outcome Not Healed Not Healed -Ulcer Cleansing Rinsed/ Irrigated with Saline -Foul Odor after Cleansing No -Bioengineered Tissue No -Bleeding Controlled with Pressure -Treatment Response Procedure Tolerated Well -Offloading Yes -Type of Offloading Total Contact Cast (TCC) - Left ($) -Debridement - Subq, 1st 20sq cm Yes -Debridement, SubQ, ea addt'l 20sq cm 1 or part thereof #1 left heel cluster -Time 09:36 -Correct Patient No Yes -Correct Side, Site, Position No Yes -Correct Procedure No Yes -Procedure Performed No Yes -Type of Procedure Debridement -Clinical Debridement Subcutaneous -Tissue Removed Subcutaneous -Post Debridement (cm) - Length 2.8 -Post Debridement (cm) - Width 2.8 -Post Debridement (cm) - Depth 1.0 -Total Square (Post) (cm) 7.84 -Area of Debridement (cm) - Length 2.8 -Area of Debridement (cm) - Width 2.8 -Total Square (Area) (cm) 7.84 -Tunneling No -Undermining/Tunneling No -Circular Undermining No -Wound/Ulcer Outcome Not Healed Not Healed -Ulcer Cleansing Wound Cleanser -Foul Odor after Cleansing No -Bioengineered Tissue No -Bleeding Controlled with Pressure -Treatment Response Procedure Tolerated Well -Offloading Yes No -Type of Offloading Total Contact Cast (TCC) - Left ($) -Debridement - Subq, 1st 20sq cm No Pain Scale: 0-10 Numeric Is Patient Pain Free? Yes Yes WC - Nurse 3 - General Ulcer D/C NN Start: 08/20/21 10:01 Freq: Status: Active Protocol: Activity Type Activity Date Activity User E-Sign Co-Sign Detail Recorded Client Recorded Date Recorded By Document 08/20/21 10:17 KR [id number] 08/20/21 10:18 KR Document 08/22/21 09:42 [facility] [id number] 08/22/21 09:43 BM Document 08/27/21 09:45 AK [id number] 08/27/21 09:47 AK 08/20/21 08/22/21 08/27/21 10:17 09:42 09:45 Wound Care Nurse 3 4-left plantar arch -Ulcer Cleansing Rinsed/ Rinsed/ Rinsed/ Irrigated with Irrigated with Irrigated with Saline Saline Saline -Foul Odor after Cleansing No No -Negative Pressure Wound Therapy N/A -Primary Dressing Applied Optilok 6.5x10, Optilok 6.5x10, Aquacel AG 4x4, Silvercel Silvercel Optilok 6.5x10 -Other Dressing Tcc size 4 applied -Primary Dressing Covered/Secured with Secured with Secured with Tape Tape -Other Covering DRSG PER RB RN; TCC UNDERCAST APPLIED -Aquacel AG 4x4 1 -Optilok 6.5x10 1 1 1 -Silvercel 1 1 #1 left heel cluster -Ulcer Cleansing Rinsed/ Irrigated with Saline -Foul Odor after Cleansing No -Primary Dressing Applied Optilok 6.5x10, Silvercel -Primary Dressing Covered/Secured with Secured with Tape -Other Covering DRSG AND TCC UNDERCAST APPLIED PER RB RN -Optilok 6.5x10 0 -Silvercel 0 Left -Other TCC under casting Treatment Response Procedure Tolerated Well Pain Scale: 0-10 Numeric Is Patient Pain Free? Yes Yes Yes WC - Visit Discharge Discharge Condition Stable Stable Stable Ambulatory Status Wheelchair Wheelchair Wheelchair Transportation Private Auto Private Auto Private Auto Medication Reconcilliation completed & Yes provided to patient/care provider Clinical Summary of Care Provided Yes Assessment/Plan Assessment/Plan (1) Non-pressure chronic ulcer of left heel and midfoot with fat layer exposed: CODE(S): L97.422 - Non-pressure chronic ulcer of left heel and midfoot with fat layer exposed (2) Ulcer of left foot with necrosis of muscle: CODE(S): L97.523 - Non-pressure chronic ulcer of other part of left foot with necrosis of muscle (3) Maceration of skin: CODE(S): L98.8 - Other specified disorders of the skin and subcutaneous tissue (4) Localized edema: CODE(S): R60.0 - Localized edema (5) Diabetes mellitus: CODE(S): E11.9 - Type 2 diabetes mellitus without complications (6) Type 2 diabetes mellitus with diabetic polyneuropathy: CODE(S): E11.42 - Type 2 diabetes mellitus with diabetic polyneuropathy QUALIFIERS: 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: with truck terminal 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 use Qualified Code(s): E11.42 - Type 2 diabetes mellitus with diabetic polyneuropathy; 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 Dressing recommendation: Today we will place silvercel was applied to wound bed with additional superabsorption secondary dressing prior to total contact cast application today. He will return on Friday to have his TCC changed and recommend switching him to Dakin's moistened gauze topped with superabsorption dressing. He may need his TCC changed more frequently than twice a week due to the amount of drainage he is experiencing and the odor of the drainage. Once the cast is removed and his foot is cleansed, his ulcers on his left foot are showing improvement using the TCC. He will follow up on Friday for TCC change and he will follow up with Dr. Chapman on Friday.
[2021-08-29 13:06] VITALS: BP 120/65; PULSE 68; RESP 22; TEMP 35.7; BMI 33.7
--- NOTE | 2021-08-29 15:12 | PN.PCM_ITS ---
History of Present Illness Date of Service: 08/29/21 Chief Complaint: left heel and arch ulcers History of Wound: Patient presents for chronic non healing wound to left plantar foot (heel and arch). A limb and life-threatening infection which required emergent surgical intervention on 05-29-2021. He then subsequently resided in the transitional care unit for wound care which he completed a course of IV antibiotics. He changed his dressing as advised and there is reduced moisture. He denies fever, chill, nausea, vomiting, pain, odor, redness. He is keeping weight off of his foot he reports. He has a knee roller at home. he is ready to have a total contact cast applied today. He has a lot of drainage and sometimes requires an additional appointment for removal and reapplication. Progress of Wound: Courtesy visit for a total contact cast placement. He comes in today to have his cast changed do to the amount of drainage he is experiencing with a strong odor. He has been tolerating his TCC well. There is visual improvement in the ulcers on his left foot. The wound bed of both ulcers are a nice beefy pink. There is some maceration of the periwound due to the amount of drainage he is experiencing. The odor from his drainage is his biggest concern at this time. Objective Data Objective Data Vital Signs: Vital Signs Temp Pulse Resp BP 96.2 F L 68 22 H 120/65 08/29/21 13:06 08/29/21 13:06 08/29/21 13:06 08/29/21 13:06 Body Mass Index (BMI) 33.7 Charges/Coding Addendum Addendum: 22518 - Application of left foot total contact cast Debridement Note Debridement Note No debridement was completed: No debridement was completed today Post-Debridement Measurements and Additional Note: Post-Debridement Measurements/Treatment JANESSA - Nurse 1 - General Ulcer Assessment Start: 08/20/21 10:01 Freq: Status: Active Protocol: EVELYN Activity Type Activity Date Activity User E-Sign Co-Sign Detail Recorded Client Recorded Date Recorded By Document 08/20/21 10:02 VASQUEZ [id number] 08/20/21 10:16 KR Document 08/22/21 09:18 RB [id number] 08/22/21 09:26 RB Document 08/27/21 09:01 KR [id number] 08/27/21 09:09 KR Document 08/29/21 13:06 AK [id number] 08/29/21 13:11 AK 08/20/21 08/22/21 08/27/21 10:02 09:18 09:01 WC - Today's Visit Information Type of service Nurse-only Follow-up Visit Follow-up Visit Visit (Physician/LEARNING ADMINISTRATOR (Physician/LEARNING ADMINISTRATOR ) ) Arrival Mode Wheelchair Wheelchair Wheelchair Transfer Assistance Manual Transfer Assist (Other) Patient Identification Verified (Name & Yes Yes Yes ) Patient Requires Transmission-Based No Precautions Finger Stick Blood Sugar(mg/dl) (if 141 indicated): Blood Sugar Stated by Patient Height and Weight Body Mass Index (BMI) 33.7 33.7 33.7 BMI Classification Obese Obese Obese Vital Signs Temperature (97.8 F-99.1 F) 97.1 F L 97.3 F L 97.4 F L Temperature Source Temporal Temporal Temporal Pulse Rate (60-100) 61 63 64 Pulse Location Monitor Apical Monitor Respiratory Rate (12-18) 18 Respiratory rate source Observation Blood Pressure (90/60-120/80) 145/77 H 145/78 H 155/61 H Blood Pressure Mean (mm Hg) 99 100 92 Source Monitor Monitor Monitor Position Sitting Semi-Fowlers Semi-Fowlers Blood Pressure Location Left Arm Left Forearm Right Arm History Since Last Visit- (Skip if this is Patient's initial visit) Have you changed medications since your No No No last visit? Any new allergies or adverse reactions No No No Had a fall/change in ADL's that may No No No increase risk of falls Signs or symptoms of abuse and/or No No No neglect since last visit Have you been in the hospital since your No No No last visit? Has dressing in place as prescribed Yes Yes Yes Has compression in place as prescribed N/A N/A Has offloadiing in place as prescribed Yes Yes Yes Experienced any changes in pain level or No No No management Left Footwear Total Contact Total Contact Total Contact Cast Cast Cast Right Footwear Regular Shoe Regular Shoe Regular Shoe Pain Scale: 0-10 Numeric Is Patient Pain Free? Yes Yes Yes 08/29/21 13:06 - Today's Visit Information Type of service Follow-up Visit (Physician/LEARNING ADMINISTRATOR ) Arrival Mode Wheelchair Transfer Assistance Manual Transfer Assist (Other) x1 Patient Identification Verified (Name & Yes ) Patient Requires Transmission-Based No Precautions Finger Stick Blood Sugar(mg/dl) (if 141 indicated): Blood Sugar Stated by Patient Height and Weight Body Mass Index (BMI) 33.7 BMI Classification Obese Vital Signs Temperature (97.8 F-99.1 F) 96.2 F L Temperature Source Temporal Pulse Rate (60-100) 68 Pulse Location Monitor Respiratory Rate (12-18) 22 H Respiratory rate source Observation Blood Pressure (90/60-120/80) 120/65 Blood Pressure Mean (mm Hg) 83 Source Monitor Position Blood Pressure Location History Since Last Visit- (Skip if this is Patient's initial visit) Have you changed medications since your No last visit? Any new allergies or adverse reactions No Had a fall/change in ADL's that may No increase risk of falls Signs or symptoms of abuse and/or No neglect since last visit Have you been in the hospital since your No last visit? Has dressing in place as prescribed Yes Has compression in place as prescribed N/A Has offloadiing in place as prescribed Yes Experienced any changes in pain level or No management Left Footwear Total Contact Cast Right Footwear Pain Scale: 0-10 Numeric Is Patient Pain Free? Yes WC - Nurse 1 - General Ulcer Measurement Start: 08/20/21 10:01 Freq: Status: Active Protocol: Activity Type Activity Date Activity User E-Sign Co-Sign Detail Recorded Client Recorded Date Recorded By Document 08/22/21 09:18 RB [id number] 08/22/21 09:26 RB Document 08/27/21 09:01 KR [id number] 08/27/21 09:09 KR Document 08/29/21 13:06 AK [id number] 08/29/21 13:11 AK 08/22/21 08/27/21 08/29/21 09:18 09:01 13:06 Wound Center Nurse 1 4-left plantar arch -Combined with other wound No -Current Size (cm) - Length 5 5.8 4.2 -Current Size (cm) - Width 4.8 4.2 4.5 -Current Size (cm) - Depth 0.2 0.2 0.3 -Total Square Cm 24.0 24.36 18.90 -Photo Taken No -Tunneling No -Undermining/Tunneling No -Circular Undermining No -Exudate Amt Large Large Large -Exudate Type Serosanguineous Serosanguineous Serosanguineous -Wound Margin Thickened & Distinct, Thickened Rolled Under Outline Attached -Granulation Amt Medium (34-66%) Medium (34-66%) Medium (34-66%) -Granulation Quality [place] Red Red -Slough/Fibrin Yes -Necrosis Amt Medium (34-66%) Medium (34-66%) Medium (34-66%) -Necrotic Tissue Type Adherent Slough Adherent Slough Adherent Slough -Structure Exposed N/A Fat Layer N/A Exposed -Texture (Margaret-wound Skin Appearance) Assessed Assessed, Callus,Scarring Scarring -Moisture (Margaret-wound Skin Appearance) Maceration Assessed, Maceration Maceration -Color (Margaret-wound Skin Appearance) Assessed No Abnormality, Hemosiderin Assessed Staining -Temperature (Margaret-wound Skin No Abnormality No Abnormality No Abnormality Appearance) (Pt Warm) (Pt Warm) (Pt Warm) -Tenderness on Palpation (Margaret-wound No No Skin Appearance) -Ulcer Cleansing Wound Cleanser Soap and Water Soap and Water -Foul Odor after Cleansing No Yes No -Anesthetic Used 4% Lidocaine 4% Lidocaine 4% Lidocaine Solution Solution Solution #1 left heel cluster -Current Size (cm) - Length 2.7 2.5 2.5 -Current Size (cm) - Width 2.8 2.8 2.5 -Current Size (cm) - Depth 1 0.2 0.2 -Total Square Cm 7.56 7.00 6.25 -Photo Taken No -Tunneling No -Undermining/Tunneling No -Circular Undermining No -Exudate Amt Large Large Large -Exudate Type Serosanguineous Serosanguineous Serosanguineous -Wound Margin Thickened & Distinct, Distinct, Rolled Under Outline Outline Attached Attached -Granulation Amt Medium (34-66%) Medium (34-66%) Medium (34-66%) -Granulation Quality [place] Red Red -Slough/Fibrin Yes -Necrosis Amt Medium (34-66%) Medium (34-66%) Medium (34-66%) -Necrotic Tissue Type Adherent Slough Adherent Slough Adherent Slough -Structure Exposed N/A Fat Layer N/A Exposed -Texture (Margaret-wound Skin Appearance) Callus Assessed, Callus,Scarring Scarring -Moisture (Margaret-wound Skin Appearance) Maceration Assessed, Maceration Maceration -Color (Margaret-wound Skin Appearance) Assessed No Abnormality, Hemosiderin Assessed Staining -Temperature (Margaret-wound Skin No Abnormality No Abnormality No Abnormality Appearance) (Pt Warm) (Pt Warm) (Pt Warm) -Tenderness on Palpation (Margaret-wound No No No Skin Appearance) -Ulcer Cleansing Wound Cleanser Soap and Water Soap and Water -Foul Odor after Cleansing No Yes No -Anesthetic Used 4% Lidocaine 4% Lidocaine 4% Lidocaine Solution Solution Solution Left Calf (cm) 50.5 Left Ankle (cm) 31 WC - Nurse 2 - General Ulcer CM Notes Start: 08/20/21 10:01 Freq: Status: Active Protocol: Activity Type Activity Date Activity User E-Sign Co-Sign Detail Recorded Client Recorded Date Recorded By Document 08/20/21 11:24 [id number] 08/20/21 11:25 Document 08/22/21 09:33 JF [id number] 08/22/21 09:38 Document 08/29/21 13:28 MW [id number] 08/29/21 13:30 MW 08/20/21 08/22/21 08/29/21 11:24 09:33 13:28 Wound Center Nurse 2 4-left plantar arch -Time 09:34 13:28 -Correct Patient No Yes Yes -Correct Side, Site, Position No Yes Yes -Correct Procedure No Yes Yes -Procedure Performed No Yes No -Type of Procedure Debridement -Clinical Debridement Subcutaneous -Tissue Removed Subcutaneous -Post Debridement (cm) - Length 5 -Post Debridement (cm) - Width 4.8 -Post Debridement (cm) - Depth 0.2 -Total Square (Post) (cm) 24.0 -Area of Debridement (cm) - Length 5.0 -Area of Debridement (cm) - Width 4.8 -Total Square (Area) (cm) 24.00 -Tunneling No -Undermining/Tunneling No -Circular Undermining No -Wound/Ulcer Outcome Not Healed Not Healed Not Healed -Ulcer Cleansing Rinsed/ Rinsed/ Irrigated with Irrigated with Saline Saline -Foul Odor after Cleansing No -Bioengineered Tissue No -Bleeding Controlled with Pressure -Treatment Response Procedure Tolerated Well -Offloading Yes -Type of Offloading Total Contact Total Contact Cast (TCC) - Cast (TCC) - Left ($) Left ($) -Debridement - Subq, 1st 20sq cm Yes -Debridement, SubQ, ea addt'l 20sq cm 1 or part thereof #1 left heel cluster -Time 09:36 13:29 -Correct Patient No Yes Yes -Correct Side, Site, Position No Yes Yes -Correct Procedure No Yes Yes -Procedure Performed No Yes No -Type of Procedure Debridement -Clinical Debridement Subcutaneous -Tissue Removed Subcutaneous -Post Debridement (cm) - Length 2.8 -Post Debridement (cm) - Width 2.8 -Post Debridement (cm) - Depth 1.0 -Total Square (Post) (cm) 7.84 -Area of Debridement (cm) - Length 2.8 -Area of Debridement (cm) - Width 2.8 -Total Square (Area) (cm) 7.84 -Tunneling No No -Undermining/Tunneling No No -Circular Undermining No No -Wound/Ulcer Outcome Not Healed Not Healed Not Healed -Ulcer Cleansing Wound Cleanser -Foul Odor after Cleansing No -Bioengineered Tissue No -Bleeding Controlled with Pressure -Treatment Response Procedure Tolerated Well -Offloading Yes No -Type of Offloading Total Contact Total Contact Cast (TCC) - Cast (TCC) - Left ($) Left ($) -Debridement - Subq, 1st 20sq cm No Pain Scale: 0-10 Numeric Is Patient Pain Free? Yes Yes Yes WC - Nurse 3 - General Ulcer D/C NN Start: 08/20/21 10:01 Freq: Status: Active Protocol: Activity Type Activity Date Activity User E-Sign Co-Sign Detail Recorded Client Recorded Date Recorded By Document 08/20/21 10:17 KR [id number] 08/20/21 10:18 KR Document 08/22/21 09:42 BMF [id number] 08/22/21 09:43 BMF Document 08/27/21 09:45 AK [id number] 08/27/21 09:47 AK Document 08/29/21 13:30 MW [id number] 08/29/21 13:32 MW 08/20/21 08/22/21 08/27/21 10:17 09:42 09:45 Wound Care Nurse 3 4-left plantar arch -Ulcer Cleansing Rinsed/ Rinsed/ Rinsed/ Irrigated with Irrigated with Irrigated with Saline Saline Saline -Foul Odor after Cleansing No No -Negative Pressure Wound Therapy N/A -Primary Dressing Applied Optilok 6.5x10, Optilok 6.5x10, Aquacel AG 4x4, Silvercel Silvercel Optilok 6.5x10 -Other Dressing Tcc size 4 applied -Primary Dressing Covered/Secured with Secured with Secured with Tape Tape -Other Covering DRSG PER RB RN; TCC UNDERCAST APPLIED -Aquacel AG 4x4 1 -Optilok 6.5x10 1 1 1 -Silvercel 1 1 #1 left heel cluster -Ulcer Cleansing Rinsed/ Irrigated with Saline -Foul Odor after Cleansing No -Negative Pressure Wound Therapy -Primary Dressing Applied Optilok 6.5x10, Silvercel -Other Dressing -Primary Dressing Covered/Secured with Secured with Tape -Other Covering DRSG AND TCC UNDERCAST APPLIED PER RB RN -Optilok 6.5x10 0 -Silvercel 0 Left -Lotion applied to leg before compression wrap -Other TCC under casting Treatment Response Procedure Tolerated Well Pain Scale: 0-10 Numeric Is Patient Pain Free? Yes Yes Yes Teaching: Wound Center Dressing Your Wound -Person Taught -Teaching Method -Response to teaching WC - Visit Discharge Discharge Condition Stable Stable Stable Ambulatory Status Wheelchair Wheelchair Wheelchair Transportation Private Auto Private Auto Private Auto Accompanied by Medication Reconcilliation completed & Yes provided to patient/care provider Clinical Summary of Care Provided Yes 08/29/21 13:30 Wound Care Nurse 3 4-left plantar arch -Ulcer Cleansing -Foul Odor after Cleansing -Negative Pressure Wound Therapy -Primary Dressing Applied Optilok 6.5x10 -Other Dressing Dakins wet to dry -Primary Dressing Covered/Secured with Dry Gauze, Secured with Tape -Other Covering TCC -Aquacel AG 4x4 -Optilok 6.5x10 1 -Silvercel #1 left heel cluster -Ulcer Cleansing Rinsed/ Irrigated with Saline -Foul Odor after Cleansing No -Negative Pressure Wound Therapy N/A -Primary Dressing Applied -Other Dressing dakins wet to dry, optilock -Primary Dressing Covered/Secured with Dry Gauze, Secured with Tape -Other Covering TCC -Optilok 6.5x10 -Silvercel Left -Lotion applied to leg before No compression wrap -Other TCC Treatment Response Procedure Tolerated Well Pain Scale: 0-10 Numeric Is Patient Pain Free? Yes Teaching: Wound Center Dressing Your Wound -Person Taught Patient -Teaching Method Discussion -Response to teaching Verbalize understanding WC - Visit Discharge Discharge Condition Stable Ambulatory Status Ambulatory, Walker Transportation Private Auto Accompanied by self Medication Reconcilliation completed & No provided to patient/care provider Clinical Summary of Care Provided Yes Assessment/Plan Assessment/Plan (1) Non-pressure chronic ulcer of left heel and midfoot with fat layer exposed: CODE(S): L97.422 - Non-pressure chronic ulcer of left heel and midfoot with fat layer exposed (2) Maceration of skin: CODE(S): L98.8 - Other specified disorders of the skin and subcutaneous tissue (3) Localized edema: CODE(S): R60.0 - Localized edema (4) Diabetes mellitus: CODE(S): E11.9 - Type 2 diabetes mellitus without complications (5) Type 2 diabetes mellitus with diabetic polyneuropathy: CODE(S): E11.42 - Type 2 diabetes mellitus with diabetic polyneuropathy 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: with [facility] use Qualified Code(s): E11.42 - Type 2 diabetes mellitus with diabetic polyneuropathy; Z79.4 - custodial (current) use of insulin (6) Diabetic foot ulcer: CODE(S): E11.621 - Type 2 diabetes mellitus with foot ulcer; L97.509 - Non-pressure chronic ulcer of other part of unspecified foot with unspecified severity QUALIFIERS: Diabetic foot ulcer location: heel Diabetes mellitus type: type 2 Laterality: left Non-pressure ulcer stage: with fat layer exposed Qualified Code(s): E11.621 - Type 2 diabetes mellitus with foot ulcer; L97.422 - Non-pressure chronic ulcer of left heel and midfoot with fat layer exposed (7) Tobacco abuse: CODE(S): Z72.0 - Tobacco use (8) Ulcer of left foot with fat layer exposed: CODE(S): L97.522 - Non-pressure chronic ulcer of other part of left foot with fat layer exposed PLAN: This is a courtesy visit for a TCC change. Dressing recommendation: Today we will place Dakin's 0.25% dampened gauze to both ulcers and cover with a superabsorption secondary dressing prior to total contact cast application today. Hopefully this will help with the odor he his experiencing from his drainage. Once the cast is removed and his foot is cleansed, his ulcers on his left foot are showing improvement using the TCC. Patient believes he needs to have his TCC changed 3 times per week because of the volume of his drainage in addition to how bad the drainage odor is. He will follow up on with Dr. Chapman on Friday.
[2021-08-31 14:19] VITALS: BP 147/74; PULSE 74; RESP 18; TEMP 36.5; BMI 33.7
--- NOTE | 2021-08-31 15:51 | PN.PCM_ITS ---
History of Present Illness Date of Service: 08/31/21 Chief Complaint: left heel and arch ulcers History of Wound: Patient presents for chronic non healing wound to left plantar foot (heel and arch). A limb and life-threatening infection which required emergent surgical intervention on 05-29-2021. He then subsequently resided in the transitional care unit for wound care which he completed a course of IV antibiotics. He changed his dressing as advised and there is reduced moisture. He denies fever, chill, nausea, vomiting, pain, odor, redness. He is keeping weight off of his foot he reports. He has a knee roller at home. he is ready to have a total contact cast applied today. He has a lot of drainage and sometimes requires an additional appointment for removal and reapplication. His toenails are also elongated and he asked for help safely trimming these. He is unable to trim them on his own. He has diabetic neuropathy with rest paresthesias and fluctuating edema. He is also hard of hearing. Progress of Wound: Improving x2 Objective Data Objective Data Vital Signs: Vital Signs Temp Pulse Resp BP 97.7 F L 74 18 147/74 H 08/31/21 14:19 08/31/21 14:19 08/31/21 14:19 08/31/21 14:19 Oxygen Delivery Method Room Air Body Mass Index (BMI) 33.7 Physical Exam Narrative Const alert and no apparent distress General Appearance: cooperative and comfortable Extremity There is diffuse left foot/ankle and leg swelling. Left foot s/p debridement to arch and heel, tissues are healthy and viable, granular. no longer visualized fascia and muscle layer. There is no streaking or odor, compartments remain soft to palpate, there is no fluctuance or bogginess on palpation, no drainage, no visible abscess, no cellulitis, no blistering present. At the plantar arch, there is devitalized exposed fascia?tendon which is no longer directly visualized. Hematogenous drainage only upon debridement. Periwound moisture and maceration is decreased however it is noted he does have copious amounts of drainage even in his max absorption secondary dressing. reduced ulcer depth is continually noted. General Extremity: Negative for clubbing or cyanosis to digits. Toenails are elongated, thick, dystrophic with subungual debris and discoloration bilateral 2, 3, 4, 5 and left hallux. Vasc normal capillary refill, no acute ischemic skin changes noted, normal temperature bilateral. Skin Skin Narrative: Wound Narrative: Neuro Neuro Narrative: Debridement Note Debridement Note Wound debrided: Left heel and arch Wound Grade/Stage: 3, 3 Type of Debridement: Excisional debridement Anesthesia Used: 4% Lidocaine Solution Depth: in the subcutaneous layer Percentage of wound debrided: 100 Instrument Used: #15 blade Tissue Removed: fibrous, devitalized subcutaneous, biofilm, slough Severity: Fat Layer Exposed Amount of bleeding with debridement: Mild Bleeding Controlled with: Pressure Patient tolerated procedure: Patient tolerated procedure well Post-Debridement Measurements and Additional Note: Post-Debridement Measurements/Treatment - Nurse 1 - General Ulcer Assessment Start: 08/20/21 10:01 Freq: Status: Active Protocol: EVELYN Activity Type Activity Date Activity User E-Sign Co-Sign Detail Recorded Client Recorded Date Recorded By Document 08/20/21 10:02 KR [id number] 08/20/21 10:16 KR Document 08/22/21 09:18 RB [id number] 08/22/21 09:26 RB Document 08/27/21 09:01 KR [id number] 08/27/21 09:09 KR Document 08/29/21 13:06 AK [id number] 08/29/21 13:11 AK Document 08/31/21 14:19 MW [id number] 08/31/21 14:34 MW 08/20/21 08/22/21 08/27/21 10:02 09:18 09:01 - Today's Visit Information Type of service Nurse-only Follow-up Visit Follow-up Visit Visit (Physician/OUTSIDE BARREL LATHE OPERATOR (Physician/OUTSIDE BARREL LATHE OPERATOR ) ) Arrival Mode Wheelchair Wheelchair Wheelchair Transfer Assistance Manual Transfer Assist (Other) Accompanied by Patient Identification Verified (Name & Yes Yes Yes ) Patient Requires Transmission-Based No Precautions Safety Precautions Finger Stick Blood Sugar(mg/dl) (if 141 indicated): Blood Sugar Stated by Patient Height and Weight Body Mass Index (BMI) 33.7 33.7 33.7 BMI Classification Obese Obese Obese Vital Signs Temperature (97.8 F-99.1 F) 97.1 F L 97.3 F L 97.4 F L Temperature Source Temporal Temporal Temporal Pulse Rate (60-100) 61 63 64 Pulse Location Monitor Apical Monitor Respiratory Rate (12-18) 18 Respiratory rate source Observation Oxygen Delivery Method Blood Pressure (90/60-120/80) 145/77 H 145/78 H 155/61 H Blood Pressure Mean (mm Hg) 99 100 92 Source Monitor Monitor Monitor Position Sitting Semi-Fowlers Semi-Fowlers Blood Pressure Location Left Arm Left Forearm Right Arm History Since Last Visit- (Skip if this is Patient's initial visit) Have you changed medications since your No No No last visit? Any new allergies or adverse reactions No No No Had a fall/change in ADL's that may No No No increase risk of falls Signs or symptoms of abuse and/or No No No neglect since last visit Have you been in the hospital since your No No No last visit? Has dressing in place as prescribed Yes Yes Yes Has compression in place as prescribed N/A N/A Has offloadiing in place as prescribed Yes Yes Yes Experienced any changes in pain level or No No No management Left Footwear Total Contact Total Contact Total Contact Cast Cast Cast Right Footwear Regular Shoe Regular Shoe Regular Shoe Pain Scale: 0-10 Numeric Is Patient Pain Free? Yes Yes Yes 08/29/21 08/31/21 13:06 14:19 WC - Today's Visit Information Type of service Follow-up Visit Follow-up Visit (Physician/OUTSIDE BARREL LATHE OPERATOR (Physician/OUTSIDE BARREL LATHE OPERATOR ) ) Arrival Mode Wheelchair Wheelchair Transfer Assistance Manual None Transfer Assist (Other) x1 Accompanied by SELF Patient Identification Verified (Name & Yes Yes ) Patient Requires Transmission-Based No No Precautions Safety Precautions Fall Prevention Finger Stick Blood Sugar(mg/dl) (if 141 141 indicated): Blood Sugar Stated by Stated by Patient Patient Height and Weight Body Mass Index (BMI) 33.7 33.7 BMI Classification Obese Obese Vital Signs Temperature (97.8 F-99.1 F) 96.2 F L 97.7 F L Temperature Source Temporal Temporal Pulse Rate (60-100) 68 74 Pulse Location Monitor Monitor Respiratory Rate (12-18) 22 H 18 Respiratory rate source Observation Observation Oxygen Delivery Method Room Air Blood Pressure (90/60-120/80) 120/65 147/74 H Blood Pressure Mean (mm Hg) 83 98 Source Monitor Monitor Position Sitting Blood Pressure Location Right Forearm History Since Last Visit- (Skip if this is Patient's initial visit) Have you changed medications since your No No last visit? Any new allergies or adverse reactions No No Had a fall/change in ADL's that may No No increase risk of falls Signs or symptoms of abuse and/or No No neglect since last visit Have you been in the hospital since your No No last visit? Has dressing in place as prescribed Yes Yes Has compression in place as prescribed N/A Yes Has offloadiing in place as prescribed Yes N/A Experienced any changes in pain level or No No management Left Footwear Total Contact Total Contact Cast Cast Right Footwear Regular Shoe Pain Scale: 0-10 Numeric Is Patient Pain Free? Yes Yes WC - Nurse 1 - General Ulcer Measurement Start: 08/20/21 10:01 Freq: Status: Active Protocol: Activity Type Activity Date Activity User E-Sign Co-Sign Detail Recorded Client Recorded Date Recorded By Document 08/22/21 09:18 RB [id number] 08/22/21 09:26 RB Document 08/27/21 09:01 KR [id number] 08/27/21 09:09 KR Document 08/29/21 13:06 AK [id number] 08/29/21 13:11 AK Document 08/31/21 14:19 MW [id number] 08/31/21 14:34 MW 08/22/21 08/27/21 08/29/21 09:18 09:01 13:06 Wound Center Nurse 1 4-left plantar arch -Combined with other wound No -Current Size (cm) - Length 5 5.8 4.2 -Current Size (cm) - Width 4.8 4.2 4.5 -Current Size (cm) - Depth 0.2 0.2 0.3 -Total Square Cm 24.0 24.36 18.90 -Photo Taken No -Tunneling No -Undermining/Tunneling No -Circular Undermining No -Exudate Amt Large Large Large -Exudate Type Serosanguineous Serosanguineous Serosanguineous -Wound Margin Thickened & Distinct, Thickened Rolled Under Outline Attached -Granulation Amt Medium (34-66%) Medium (34-66%) Medium (34-66%) -Granulation Quality [place] Red Red -Slough/Fibrin Yes -Necrosis Amt Medium (34-66%) Medium (34-66%) Medium (34-66%) -Necrotic Tissue Type Adherent Slough Adherent Slough Adherent Slough -Structure Exposed N/A Fat Layer N/A Exposed -Texture (Margaret-wound Skin Appearance) Assessed Assessed, Callus,Scarring Scarring -Moisture (Margaret-wound Skin Appearance) Maceration Assessed, Maceration Maceration -Color (Margaret-wound Skin Appearance) Assessed No Abnormality, Hemosiderin Assessed Staining -Temperature (Margaret-wound Skin No Abnormality No Abnormality No Abnormality Appearance) (Pt Warm) (Pt Warm) (Pt Warm) -Tenderness on Palpation (Margaret-wound No No Skin Appearance) -Ulcer Cleansing Wound Cleanser Soap and Water Soap and Water -Foul Odor after Cleansing No Yes No -Anesthetic Used 4% Lidocaine 4% Lidocaine 4% Lidocaine Solution Solution Solution #1 left heel cluster -Current Size (cm) - Length 2.7 2.5 2.5 -Current Size (cm) - Width 2.8 2.8 2.5 -Current Size (cm) - Depth 1 0.2 0.2 -Total Square Cm 7.56 7.00 6.25 -Photo Taken No -Epithelialization -Tunneling No -Undermining/Tunneling No -Circular Undermining No -Classification - Acevedo Grading ( Diabetic Ulcer) -Exudate Amt Large Large Large -Exudate Type Serosanguineous Serosanguineous Serosanguineous -Wound Margin Thickened & Distinct, Distinct, Rolled Under Outline Outline Attached Attached -Granulation Amt Medium (34-66%) Medium (34-66%) Medium (34-66%) -Granulation Quality [place] Red Red -Slough/Fibrin Yes -Necrosis Amt Medium (34-66%) Medium (34-66%) Medium (34-66%) -Necrotic Tissue Type Adherent Slough Adherent Slough Adherent Slough -Structure Exposed N/A Fat Layer N/A Exposed -Texture (Margaret-wound Skin Appearance) Callus Assessed, Callus,Scarring Scarring -Moisture (Margaret-wound Skin Appearance) Maceration Assessed, Maceration Maceration -Color (Margaret-wound Skin Appearance) Assessed No Abnormality, Hemosiderin Assessed Staining -Temperature (Margaret-wound Skin No Abnormality No Abnormality No Abnormality Appearance) (Pt Warm) (Pt Warm) (Pt Warm) -Tenderness on Palpation (Margaret-wound No No No Skin Appearance) -Ulcer Cleansing Wound Cleanser Soap and Water Soap and Water -Foul Odor after Cleansing No Yes No -Anesthetic Used 4% Lidocaine 4% Lidocaine 4% Lidocaine Solution Solution Solution Left Calf (cm) 50.5 Left Ankle (cm) 31 08/31/21 14:19 Wound Center Nurse 1 4-left plantar arch -Combined with other wound No -Current Size (cm) - Length 6.5 -Current Size (cm) - Width 4.2 -Current Size (cm) - Depth 0.3 -Total Square Cm 27.30 -Photo Taken No -Tunneling No -Undermining/Tunneling No -Circular Undermining No -Exudate Amt Medium -Exudate Type Serosanguineous -Wound Margin Distinct, Outline Attached -Granulation Amt Medium (34-66%) -Granulation Quality [place] -Slough/Fibrin -Necrosis Amt -Necrotic Tissue Type -Structure Exposed N/A -Texture (Margaret-wound Skin Appearance) No Abnormality, Assessed -Moisture (Margaret-wound Skin Appearance) Assessed, Maceration -Color (Margaret-wound Skin Appearance) Assessed -Temperature (Margaret-wound Skin No Abnormality Appearance) (Pt Warm) -Tenderness on Palpation (Margaret-wound No Skin Appearance) -Ulcer Cleansing Soap and Water -Foul Odor after Cleansing No -Anesthetic Used 4% Lidocaine Solution #1 left heel cluster -Current Size (cm) - Length 2.3 -Current Size (cm) - Width 2.2 -Current Size (cm) - Depth 0.4 -Total Square Cm 5.06 -Photo Taken No -Epithelialization None Present -Tunneling No -Undermining/Tunneling No -Circular Undermining No -Classification - Acevedo Grading ( Grade 2 Diabetic Ulcer) -Exudate Amt Large -Exudate Type Serosanguineous -Wound Margin Thickened & Rolled Under -Granulation Amt Large (67-100%) -Granulation Quality Red -Slough/Fibrin -Necrosis Amt Medium (34-66%) -Necrotic Tissue Type Adherent Slough -Structure Exposed N/A -Texture (Margaret-wound Skin Appearance) Assessed,Callus -Moisture (Margaret-wound Skin Appearance) Assessed, Maceration -Color (Margaret-wound Skin Appearance) No Abnormality, Assessed -Temperature (Margaret-wound Skin No Abnormality Appearance) (Pt Warm) -Tenderness on Palpation (Margaret-wound No Skin Appearance) -Ulcer Cleansing Soap and Water -Foul Odor after Cleansing No -Anesthetic Used 4% Lidocaine Solution,5% Lidocaine Gel Left Calf (cm) Left Ankle (cm) WC - Nurse 2 - General Ulcer CM Notes Start: 08/20/21 10:01 Freq: Status: Active Protocol: Activity Type Activity Date Activity User E-Sign Co-Sign Detail Recorded Client Recorded Date Recorded By Document 08/20/21 11:24 [id number] 08/20/21 11:25 JF Document 08/22/21 09:33 JF [id number] 08/22/21 09:38 JF Document 08/29/21 13:28 MW [id number] 08/29/21 13:30 MW Edit Result 08/29/21 13:28 MW (1) [id number] 08/30/21 07:25 PL Document 08/31/21 15:04 PL [id number] 08/31/21 15:32 PL (1) #1 left heel cluster - Type of Offloading Total Contact Cast => (TCC) - Left ($) => 08/20/21 08/22/21 08/29/21 11:24 09:33 13:28 Wound Center Nurse 2 4-left plantar arch -Time 09:34 13:28 -Correct Patient No Yes Yes -Correct Side, Site, Position No Yes Yes -Correct Procedure No Yes Yes -Procedure Performed No Yes No -Type of Procedure Debridement -Clinical Debridement Subcutaneous -Tissue Removed Subcutaneous -Post Debridement (cm) - Length 5 -Post Debridement (cm) - Width 4.8 -Post Debridement (cm) - Depth 0.2 -Total Square (Post) (cm) 24.0 -Area of Debridement (cm) - Length 5.0 -Area of Debridement (cm) - Width 4.8 -Total Square (Area) (cm) 24.00 -Tunneling No -Undermining/Tunneling No -Circular Undermining No -Wound/Ulcer Outcome Not Healed Not Healed Not Healed -Ulcer Cleansing Rinsed/ Rinsed/ Irrigated with Irrigated with Saline Saline -Foul Odor after Cleansing No -Bioengineered Tissue No -Bleeding Controlled with Pressure -Treatment Response Procedure Tolerated Well -Offloading Yes -Type of Offloading Total Contact Total Contact Cast (TCC) - Cast (TCC) - Left ($) Left ($) -Debridement - Subq, 1st 20sq cm Yes -Debridement, SubQ, ea addt'l 20sq cm 1 or part thereof #1 left heel cluster -Time 09:36 13:29 -Correct Patient No Yes Yes -Correct Side, Site, Position No Yes Yes -Correct Procedure No Yes Yes -Procedure Performed No Yes No -Type of Procedure Debridement -Clinical Debridement Subcutaneous -Tissue Removed Subcutaneous -Post Debridement (cm) - Length 2.8 -Post Debridement (cm) - Width 2.8 -Post Debridement (cm) - Depth 1.0 -Total Square (Post) (cm) 7.84 -Area of Debridement (cm) - Length 2.8 -Area of Debridement (cm) - Width 2.8 -Total Square (Area) (cm) 7.84 -Tunneling No No -Undermining/Tunneling No No -Circular Undermining No No -Wound/Ulcer Outcome Not Healed Not Healed Not Healed -Ulcer Cleansing Wound Cleanser -Foul Odor after Cleansing No -Bioengineered Tissue No -Bleeding Controlled with Pressure -Treatment Response Procedure Tolerated Well -Offloading Yes No -Type of Offloading Total Contact Cast (TCC) - Left ($) -Debridement - Subq, 1st 20sq cm No Pain Scale: 0-10 Numeric Is Patient Pain Free? Yes Yes Yes 08/31/21 15:04 Wound Center Nurse 2 4-left plantar arch -Time 14:45 -Correct Patient Yes -Correct Side, Site, Position Yes -Correct Procedure Yes -Procedure Performed Yes -Type of Procedure Debridement -Clinical Debridement Subcutaneous -Tissue Removed Subcutaneous -Post Debridement (cm) - Length 6.5 -Post Debridement (cm) - Width 4.2 -Post Debridement (cm) - Depth 0.3 -Total Square (Post) (cm) 27.30 -Area of Debridement (cm) - Length 6.5 -Area of Debridement (cm) - Width 4.2 -Total Square (Area) (cm) 27.30 -Tunneling No -Undermining/Tunneling No -Circular Undermining No -Wound/Ulcer Outcome Not Healed -Ulcer Cleansing Rinsed/ Irrigated with Saline -Foul Odor after Cleansing No -Bioengineered Tissue No -Bleeding Controlled with Pressure -Treatment Response Procedure Tolerated Well -Offloading -Type of Offloading Total Contact Cast (TCC) - Left ($) -Debridement - Subq, 1st 20sq cm Yes -Debridement, SubQ, ea addt'l 20sq cm 1 or part thereof #1 left heel cluster -Time 14:45 -Correct Patient Yes -Correct Side, Site, Position Yes -Correct Procedure Yes -Procedure Performed Yes -Type of Procedure Debridement -Clinical Debridement Subcutaneous -Tissue Removed Subcutaneous -Post Debridement (cm) - Length 2.3 -Post Debridement (cm) - Width 2.4 -Post Debridement (cm) - Depth 0.4 -Total Square (Post) (cm) 5.52 -Area of Debridement (cm) - Length 2.3 -Area of Debridement (cm) - Width 2.4 -Total Square (Area) (cm) 5.52 -Tunneling No -Undermining/Tunneling No -Circular Undermining No -Wound/Ulcer Outcome Not Healed -Ulcer Cleansing Rinsed/ Irrigated with Saline -Foul Odor after Cleansing No -Bioengineered Tissue No -Bleeding Controlled with Pressure -Treatment Response Procedure Tolerated Well -Offloading -Type of Offloading -Debridement - Subq, 1st 20sq cm No Pain Scale: 0-10 Numeric Is Patient Pain Free? Yes WC - Nurse 3 - General Ulcer D/C NN Start: 08/20/21 10:01 Freq: Status: Active Protocol: Activity Type Activity Date Activity User E-Sign Co-Sign Detail Recorded Client Recorded Date Recorded By Document 08/20/21 10:17 KR [id number] 08/20/21 10:18 KR Document 08/22/21 09:42 [facility] [id number] 08/22/21 09:43 [facility] Document 08/27/21 09:45 NC [id number] 08/27/21 09:47 AK Document 08/29/21 13:30 MW [id number] 08/29/21 13:32 MW Document 08/31/21 15:01 AK [id number] 08/31/21 15:03 AK 08/20/21 08/22/21 08/27/21 10:17 09:42 09:45 Wound Care Nurse 3 4-left plantar arch -Ulcer Cleansing Rinsed/ Rinsed/ Rinsed/ Irrigated with Irrigated with Irrigated with Saline Saline Saline -Foul Odor after Cleansing No No -Negative Pressure Wound Therapy N/A -Primary Dressing Applied Optilok 6.5x10, Optilok 6.5x10, Aquacel AG 4x4, Silvercel Silvercel Optilok 6.5x10 -Other Dressing Tcc size 4 applied -Primary Dressing Covered/Secured with Secured with Secured with Tape Tape -Other Covering DRSG PER RB RN; TCC UNDERCAST APPLIED -Aquacel AG 4x4 1 -Optilok 6.5x10 1 1 1 -Silvercel 1 1 #1 left heel cluster -Ulcer Cleansing Rinsed/ Irrigated with Saline -Foul Odor after Cleansing No -Negative Pressure Wound Therapy -Primary Dressing Applied Optilok 6.5x10, Silvercel -Other Dressing -Primary Dressing Covered/Secured with Secured with Tape -Other Covering DRSG AND TCC UNDERCAST APPLIED PER RB RN -Optilok 6.5x10 0 -Silvercel 0 Left -Lotion applied to leg before compression wrap -Other TCC under casting Treatment Response Procedure Tolerated Well Pain Scale: 0-10 Numeric Is Patient Pain Free? Yes Yes Yes Teaching: Wound Center Dressing Your Wound -Person Taught -Teaching Method -Response to teaching WC - Visit Discharge Discharge Condition Stable Stable Stable Ambulatory Status Wheelchair Wheelchair Wheelchair Transportation Private Auto Private Auto Private Auto Accompanied by Medication Reconcilliation completed & Yes provided to patient/care provider Clinical Summary of Care Provided Yes 08/29/21 08/31/21 13:30 15:01 Wound Care Nurse 3 4-left plantar arch -Ulcer Cleansing Soap and Water -Foul Odor after Cleansing No -Negative Pressure Wound Therapy N/A -Primary Dressing Applied Optilok 6.5x10 Optilok 6.5x10 -Other Dressing Dakins wet to dakins size dry 4 TCC -Primary Dressing Covered/Secured with Dry Gauze, Secured with Secured with Tape Tape -Other Covering TCC -Aquacel AG 4x4 -Optilok 6.5x10 1 2 -Silvercel #1 left heel cluster -Ulcer Cleansing Rinsed/ Soap and Water Irrigated with Saline -Foul Odor after Cleansing No No -Negative Pressure Wound Therapy N/A N/A -Primary Dressing Applied Optilok 6.5x10 -Other Dressing dakins wet to TCC dry, optilock -Primary Dressing Covered/Secured with Dry Gauze, Secured with Tape -Other Covering TCC -Optilok 6.5x10 1 -Silvercel Left -Lotion applied to leg before No compression wrap -Other TCC Treatment Response Procedure Tolerated Well Pain Scale: 0-10 Numeric Is Patient Pain Free? Yes Yes Teaching: Wound Center Dressing Your Wound -Person Taught Patient -Teaching Method Discussion -Response to teaching Verbalize understanding WC - Visit Discharge Discharge Condition Stable Stable Ambulatory Status Ambulatory, Ambulatory Walker Transportation Private Auto Private Auto Accompanied by self Medication Reconcilliation completed & No Yes provided to patient/care provider Clinical Summary of Care Provided Yes Yes Assessment/Plan Assessment/Plan (1) Non-pressure chronic ulcer of left heel and midfoot with fat layer exposed: CODE(S): L97.422 - Non-pressure chronic ulcer of left heel and midfoot with fat layer exposed (2) Ulcer of left foot with necrosis of muscle: CODE(S): L97.523 - Non-pressure chronic ulcer of other part of left foot with necrosis of muscle (3) Maceration of skin: CODE(S): L98.8 - Other specified disorders of the skin and subcutaneous tissue (4) Localized edema: CODE(S): R60.0 - Localized edema (5) Diabetes mellitus: CODE(S): E11.9 - Type 2 diabetes mellitus without complications (6) Type 2 diabetes mellitus with diabetic polyneuropathy: CODE(S): E11.42 - Type 2 diabetes mellitus with diabetic polyneuropathy QUALIFIERS: Diabetes mellitus chcf insulin use: with chcf use Qualified Code(s): E11.42 - Type 2 diabetes mellitus with diabetic polyneuropathy; Z79.4 - terminal operator (current) use of insulin (7) Diabetic foot ulcer: CODE(S): E11.621 - Type 2 diabetes mellitus with foot ulcer; L97.509 - Non-pressure chronic ulcer of other part of unspecified foot with unspecified severity QUALIFIERS: Diabetic foot ulcer location: heel Diabetes mellitus type: type 2 Laterality: left Non-pressure ulcer stage: with fat layer exposed Qualified Code(s): E11.621 - Type 2 diabetes mellitus with foot ulcer; L97.422 - Non-pressure chronic ulcer of left heel and midfoot with fat layer exposed (8) Tobacco abuse: CODE(S): Z72.0 - Tobacco use (9) Other hereditary and idiopathic neuropathies: CODE(S): G60.8 - Other hereditary and idiopathic neuropathies (10) Tinea unguium: CODE(S): B35.1 - Tinea unguium PLAN: Patient seen and examined. I reviewed and discussed his case. Debridement was performed as noted in the clinical nursing panel. Dressing recommendation: silvercel was applied to wound bed with additional superabsorption secondary dressing prior to total contact cast application today. Patient wound is noted to have improved with healthier appearance and there is no malodor. There are no local signs infection noted today. He was seen by infectious disease during his last hospital admission and he had surgery on 05-29-2021. His surgical cultures had MRSA, Enterococcus, klebs, Proteus and it was down to deep tissue. He completed a 2-week course of IV vancomycin and Unasyn and then followed up with 4 weeks of oral doxycycline and Augmentin with a stop date of 07-10-21. Offloading: He is amendable to have a total contact cast applied today and verbal consent was obtained. This was applied according to standard protocol in a neutral position a well-padded manner. He tolerated this well. To keep clean, dry, and intact until follow-up visit on a biweekly basis. We are planning to take a break from this and he will return to clinic on Friday and proceed forward likely with Dakin wet-to-dry with home health daily dressing change assistance starting next week. We decided not to implement this over the holiday weekend due to concern of lack of home health assistance or ability to find somebody to help him with this. Patient relates he had follow-up appointment with his primary care provider, Priyanka Brown, and relates that she did not change any medication and stated he was doing okay. PCP is leaving the diabetes management up to his pigment processor, Dr. Mykel Barraza. He was able to follow-up and recommendations were updated. Edema management: Medical management per primary care. To reduce salt in diet. Total contact cast will also aide in edema reduction. Arterial studies were reviewed. Showing likely adequate perfusion for healing. Right LAI is 0.99 and left 1.18. Right toe brachial index 0.76 and left 0.71. Referral to Dr. Campos for potential venous and arterial intervention was provided today. He went for consultationon 04-11-21. Will recheck duplex to make sure normal posterior tibial flow into the area of the wound. normal prior LAI noted. Host factors: His multiple comorbidities are noted including diabetes and smoking history. Also recommend improvement in nutritional status which involves taking in adequate protein and also focusing on eating 5-10 whole foods daily. All questions answered. He understands below-knee amputation is an option as well if he cannot keep pressure off the site, if pain becomes intolerable, and if he no longer is able to proceed with a comprehensive wound healing plan. He defers at this time. The etiology of thickened toenails was briefly reviewed including fungus or microtrauma. The nails were debrided with a nail nipper after verbal consent was obtained without incident. The nails were debrided in length and thickness to reduce pressure, potential fungal load, and to prevent wound formation. The patient tolerated this well. The patient elects proceed with palliative care only at this time with the nails and will hold off on further work-up. To [facility] if needed in the future for this condition. Location: Bilateral 2, 3, 4, 5 and left hallux Patient to follow up in 1 week or call sooner if status worsening or if questions. I answered all of his questions. This note was generated with [employer] dictation software. It may contain incorrect words, spelling, and punctuation that were not noted in checking the note before signing.
[2021-09-03 08:56] VITALS: BP 131/65; PULSE 66; RESP 18; TEMP 36.6; BMI 33.7
[2021-09-05 14:12] VITALS: BP 124/62; PULSE 71; RESP 16; TEMP 36.8; BMI 33.7
--- NOTE | 2021-09-05 14:59 | PN.PCM_ITS ---
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 A limb and life-threatening infection which required emergent surgical intervention on 05-29-2021. He then subsequently resided in the transitional care unit for wound care which he completed a course of IV antibiotics. He changed his dressing as advised and there is reduced moisture. He denies fever, chill, nausea, vomiting, pain, odor, redness. He is keeping weight off of his foot he reports. He has a knee roller at home. he is ready to have a total contact cast applied today. His last cast removed and change dressing daily with Dakin wet-to-dry to help resolve odor and maceration. He has a lot of drainage and sometimes requires an additional appointment for removal and reapplication. He is also hard of hearing. Progress of Wound: Improving x2 Objective Data Objective Data Vital Signs: Vital Signs Temp Pulse Resp BP 98.2 F 71 16 124/62 H 09/05/21 14:12 09/05/21 14:12 09/05/21 14:12 09/05/21 14:12 Oxygen Delivery Method Room Air Body Mass Index (BMI) 33.7 Physical Exam Narrative Const alert and no apparent distress General Appearance: cooperative and comfortable Extremity There is diffuse left foot/ankle and leg swelling. Left foot s/p debridement to arch and heel, tissues are healthy and viable, granular. no longer visualized fascia and muscle layer. There is no streaking or odor, compartments remain soft to palpate, there is no fluctuance or bogginess on palpation, no drainage, no visible abscess, no cellulitis, no blistering present. At the plantar arch, there is devitalized exposed fascia?tendon which is no longer directly visualized. Hematogenous drainage only upon debridement. Periwound moisture and maceration is decreased however it is noted he does have copious amounts of drainage even in his max absorption secondary dressing. reduced ulcer depth is continually noted. General Extremity: Negative for clubbing or cyanosis to digits. Vasc normal capillary refill, no acute ischemic skin changes noted, normal temperature bilateral. Skin Skin Narrative: Wound Narrative: Neuro Neuro Narrative: Debridement Note Debridement Note Wound debrided: plantar left heel and arch Wound Grade/Stage: 3,3 Type of Debridement: Excisional debridement Anesthesia Used: 4% Lidocaine Solution Depth: in the subcutaneous layer Percentage of wound debrided: 100 Instrument Used: #15 blade Tissue Removed: fibrous, devitalized subcutaneous, biofilm, slough Severity: Fat Layer Exposed Amount of bleeding with debridement: Mild Bleeding Controlled with: Pressure Patient tolerated procedure: Patient tolerated procedure well Post-Debridement Measurements and Additional Note: Post-Debridement Measurements/Treatment - Nurse 1 - General Ulcer Assessment Start: 08/20/21 10:01 Freq: Status: Active Protocol: EVELYN Activity Type Activity Date Activity User E-Sign Co-Sign Detail Recorded Client Recorded Date Recorded By Document 08/20/21 10:02 KR [id number] 08/20/21 10:16 KR Document 08/22/21 09:18 RB [id number] 08/22/21 09:26 RB Document 08/27/21 09:01 KR [id number] 08/27/21 09:09 KR Document 08/29/21 13:06 AK [id number] 08/29/21 13:11 AK Document 08/31/21 14:19 MW [id number] 08/31/21 14:34 MW Document 09/03/21 08:56 DL [id number] 09/03/21 09:32 DL Document 09/05/21 14:12 BMF [id number] 09/05/21 14:27 BMF 08/20/21 08/22/21 08/27/21 10:02 09:18 09:01 - Today's Visit Information Type of service Nurse-only Follow-up Visit Follow-up Visit Visit (Physician/DISTRICT WILDLIFE MANAGER (Physician/DISTRICT WILDLIFE MANAGER ) ) Arrival Mode Wheelchair Wheelchair Wheelchair Transfer Assistance Manual Transfer Assist (Other) Accompanied by Patient Identification Verified (Name & Yes Yes Yes ) Patient Requires Transmission-Based No Precautions Safety Precautions Finger Stick Blood Sugar(mg/dl) (if 141 indicated): Blood Sugar Stated by Patient Height and Weight Body Mass Index (BMI) 33.7 33.7 33.7 BMI Classification Obese Obese Obese Vital Signs Temperature (97.8 F-99.1 F) 97.1 F L 97.3 F L 97.4 F L Temperature Source Temporal Temporal Temporal Pulse Rate (60-100) 61 63 64 Pulse Location Monitor Apical Monitor Respiratory Rate (12-18) 18 Respiratory rate source Observation Oxygen Delivery Method Blood Pressure (90/60-120/80) 145/77 H 145/78 H 155/61 H Blood Pressure Mean (mm Hg) 99 100 92 Source Monitor Monitor Monitor Position Sitting Semi-Fowlers Semi-Fowlers Blood Pressure Location Left Arm Left Forearm Right Arm History Since Last Visit- (Skip if this is Patient's initial visit) Have you changed medications since your No No No last visit? Any new allergies or adverse reactions No No No Had a fall/change in ADL's that may No No No increase risk of falls Signs or symptoms of abuse and/or No No No neglect since last visit Have you been in the hospital since your No No No last visit? Has dressing in place as prescribed Yes Yes Yes Has compression in place as prescribed N/A N/A Has offloadiing in place as prescribed Yes Yes Yes Experienced any changes in pain level or No No No management Left Footwear Total Contact Total Contact Total Contact Cast Cast Cast Right Footwear Regular Shoe Regular Shoe Regular Shoe Pain Scale: 0-10 Numeric Is Patient Pain Free? Yes Yes Yes 08/29/21 08/31/21 09/03/21 13:06 14:19 08:56 WC - Today's Visit Information Type of service Follow-up Visit Follow-up Visit Nurse-only (Physician/DISTRICT WILDLIFE MANAGER (Physician/DISTRICT WILDLIFE MANAGER Visit ) ) Arrival Mode Wheelchair Wheelchair Wheelchair Transfer Assistance Manual None Transfer Board Transfer Assist (Other) x1 Accompanied by SELF Patient Identification Verified (Name & Yes Yes Yes ) Patient Requires Transmission-Based No No No Precautions Safety Precautions Fall Prevention Finger Stick Blood Sugar(mg/dl) (if 141 141 148 indicated): Blood Sugar Stated by Stated by Stated by Patient Patient Patient Height and Weight Body Mass Index (BMI) 33.7 33.7 33.7 BMI Classification Obese Obese Obese Vital Signs Temperature (97.8 F-99.1 F) 96.2 F L 97.7 F L 97.8 F Temperature Source Temporal Temporal Temporal Pulse Rate (60-100) 68 74 66 Pulse Location Monitor Monitor Monitor Respiratory Rate (12-18) 22 H 18 18 Respiratory rate source Observation Observation Observation Oxygen Delivery Method Room Air Blood Pressure (90/60-120/80) 120/65 147/74 H 131/65 H Blood Pressure Mean (mm Hg) 83 98 87 Source Monitor Monitor Monitor Position Sitting Blood Pressure Location Right Forearm History Since Last Visit- (Skip if this is Patient's initial visit) Have you changed medications since your No No No last visit? Any new allergies or adverse reactions No No No Had a fall/change in ADL's that may No No No increase risk of falls Signs or symptoms of abuse and/or No No No neglect since last visit Have you been in the hospital since your No No No last visit? Has dressing in place as prescribed Yes Yes Yes Has compression in place as prescribed N/A Yes N/A Has offloadiing in place as prescribed Yes N/A Yes Experienced any changes in pain level or No No No management Left Footwear Total Contact Total Contact Total Contact Cast Cast Cast Right Footwear Regular Shoe Slipper Pain Scale: 0-10 Numeric Is Patient Pain Free? Yes Yes Yes 09/05/21 14:12 WC - Today's Visit Information Type of service Arrival Mode Transfer Assistance Transfer Assist (Other) Accompanied by Patient Identification Verified (Name & ) Patient Requires Transmission-Based Precautions Safety Precautions Finger Stick Blood Sugar(mg/dl) (if indicated): Blood Sugar Height and Weight Body Mass Index (BMI) 33.7 BMI Classification Obese Vital Signs Temperature (97.8 F-99.1 F) 98.2 F Temperature Source Temporal Pulse Rate (60-100) 71 Pulse Location Monitor Respiratory Rate (12-18) 16 Respiratory rate source Observation Oxygen Delivery Method Room Air Blood Pressure (90/60-120/80) 124/62 H Blood Pressure Mean (mm Hg) 82 Source Monitor Position Sitting Blood Pressure Location Left Forearm History Since Last Visit- (Skip if this is Patient's initial visit) Have you changed medications since your last visit? Any new allergies or adverse reactions Had a fall/change in ADL's that may increase risk of falls Signs or symptoms of abuse and/or neglect since last visit Have you been in the hospital since your last visit? Has dressing in place as prescribed Has compression in place as prescribed Has offloadiing in place as prescribed Experienced any changes in pain level or management Left Footwear Regular Shoe Right Footwear Removable Cast Walker/Walking Boot Pain Scale: 0-10 Numeric Is Patient Pain Free? Yes - Nurse 1 - General Ulcer Measurement Start: 08/20/21 10:01 Freq: Status: Active Protocol: Activity Type Activity Date Activity User E-Sign Co-Sign Detail Recorded Client Recorded Date Recorded By Document 08/22/21 09:18 RB [id number] 08/22/21 09:26 RB Document 08/27/21 09:01 KR [id number] 08/27/21 09:09 KR Document 08/29/21 13:06 AK [id number] 08/29/21 13:11 AK Document 08/31/21 14:19 MW [id number] 08/31/21 14:34 MW Document 09/03/21 08:56 DL [id number] 09/03/21 09:32 DL Document 09/05/21 14:12 BMF [id number] 09/05/21 14:27 BMF 08/22/21 08/27/21 08/29/21 09:18 09:01 13:06 Wound Center Nurse 1 4-left plantar arch -Combined with other wound No -Current Size (cm) - Length 5 5.8 4.2 -Current Size (cm) - Width 4.8 4.2 4.5 -Current Size (cm) - Depth 0.2 0.2 0.3 -Total Square Cm 24.0 24.36 18.90 -Date of Last Picture (Recall this field) -Photo Taken No -Epithelialization -Tunneling No -Undermining/Tunneling No -Circular Undermining No -Exudate Amt Large Large Large -Exudate Type Serosanguineous Serosanguineous Serosanguineous -Wound Margin Thickened & Distinct, Thickened Rolled Under Outline Attached -Granulation Amt Medium (34-66%) Medium (34-66%) Medium (34-66%) -Granulation Quality [place] Red Red -Slough/Fibrin Yes -Necrosis Amt Medium (34-66%) Medium (34-66%) Medium (34-66%) -Necrotic Tissue Type Adherent Slough Adherent Slough Adherent Slough -Structure Exposed N/A Fat Layer N/A Exposed -Texture (Margaret-wound Skin Appearance) Assessed Assessed, Callus,Scarring Scarring -Moisture (Margaret-wound Skin Appearance) Maceration Assessed, Maceration Maceration -Color (Margaret-wound Skin Appearance) Assessed No Abnormality, Hemosiderin Assessed Staining -Temperature (Margaret-wound Skin No Abnormality No Abnormality No Abnormality Appearance) (Pt Warm) (Pt Warm) (Pt Warm) -Tenderness on Palpation (Margaret-wound No No Skin Appearance) -Ulcer Cleansing Wound Cleanser Soap and Water Soap and Water -Foul Odor after Cleansing No Yes No -Anesthetic Used 4% Lidocaine 4% Lidocaine 4% Lidocaine Solution Solution Solution #1 left heel cluster -Combined with other wound -Current Size (cm) - Length 2.7 2.5 2.5 -Current Size (cm) - Width 2.8 2.8 2.5 -Current Size (cm) - Depth 1 0.2 0.2 -Total Square Cm 7.56 7.00 6.25 -Date of Last Picture (Recall this field) -Photo Taken No -Epithelialization -Tunneling No -Undermining/Tunneling No -Circular Undermining No -Classification - Acevedo Grading ( Diabetic Ulcer) -Exudate Amt Large Large Large -Exudate Type Serosanguineous Serosanguineous Serosanguineous -Wound Margin Thickened & Distinct, Distinct, Rolled Under Outline Outline Attached Attached -Granulation Amt Medium (34-66%) Medium (34-66%) Medium (34-66%) -Granulation Quality [place] Red Red -Slough/Fibrin Yes -Necrosis Amt Medium (34-66%) Medium (34-66%) Medium (34-66%) -Necrotic Tissue Type Adherent Slough Adherent Slough Adherent Slough -Structure Exposed N/A Fat Layer N/A Exposed -Texture (Margaret-wound Skin Appearance) Callus Assessed, Callus,Scarring Scarring -Moisture (Margaret-wound Skin Appearance) Maceration Assessed, Maceration Maceration -Color (Margaret-wound Skin Appearance) Assessed No Abnormality, Hemosiderin Assessed Staining -Temperature (Margaret-wound Skin No Abnormality No Abnormality No Abnormality Appearance) (Pt Warm) (Pt Warm) (Pt Warm) -Tenderness on Palpation (Margaret-wound No No No Skin Appearance) -Ulcer Cleansing Wound Cleanser Soap and Water Soap and Water -Foul Odor after Cleansing No Yes No -Anesthetic Used 4% Lidocaine 4% Lidocaine 4% Lidocaine Solution Solution Solution Left Calf (cm) 50.5 Left Ankle (cm) 31 04/09/03/21 09/05/21 14:19 08:56 14:12 Wound Center Nurse 1 4-left plantar arch -Combined with other wound No No -Current Size (cm) - Length 6.5 4 3.5 -Current Size (cm) - Width 4.2 5 3.8 -Current Size (cm) - Depth 0.3 0.6 0.2 -Total Square Cm 27.30 20 13.30 -Date of Last Picture (Recall this 09/05/21 field) -Photo Taken No No Yes -Epithelialization Small 1-33% -Tunneling No No -Undermining/Tunneling No No -Circular Undermining No No -Exudate Amt Medium Large Large -Exudate Type Serosanguineous Serosanguineous Serosanguineous -Wound Margin Distinct, Distinct, Distinct, Outline Outline Outline Attached Attached Attached -Granulation Amt Medium (34-66%) Large (67-100%) Large (67-100%) -Granulation Quality [place] Red Red -Slough/Fibrin Yes -Necrosis Amt None Present (0 Small (1-33%) %) -Necrotic Tissue Type Adherent Slough -Structure Exposed N/A N/A -Texture (Margaret-wound Skin Appearance) No Abnormality, Callus,Scarring Assessed, Assessed Scarring -Moisture (Margaret-wound Skin Appearance) Assessed, Maceration Assessed, Maceration Maceration -Color (Margaret-wound Skin Appearance) Assessed No Abnormality, Assessed,Palor Hemosiderin Staining -Temperature (Margaret-wound Skin No Abnormality No Abnormality No Abnormality Appearance) (Pt Warm) (Pt Warm) (Pt Warm) -Tenderness on Palpation (Margaret-wound No No No Skin Appearance) -Ulcer Cleansing Soap and Water Soap and Water Soap and Water -Foul Odor after Cleansing No No No -Anesthetic Used 4% Lidocaine 4% Lidocaine Solution Solution #1 left heel cluster -Combined with other wound No -Current Size (cm) - Length 2.3 2.2 2.7 -Current Size (cm) - Width 2.2 2.6 2.5 -Current Size (cm) - Depth 0.4 0.7 0.4 -Total Square Cm 5.06 5.72 6.75 -Date of Last Picture (Recall this 09/05/21 field) -Photo Taken No No Yes -Epithelialization None Present Small 1-33% -Tunneling No No -Undermining/Tunneling No No -Circular Undermining No No -Classification - Acevedo Grading ( Grade 2 Diabetic Ulcer) -Exudate Amt Large Large -Exudate Type Serosanguineous Serosanguineous Serosanguineous -Wound Margin Thickened & Distinct, Thickened Rolled Under Outline Attached -Granulation Amt Large (67-100%) Large (67-100%) Large (67-100%) -Granulation Quality Red Red Red -Slough/Fibrin Yes -Necrosis Amt Medium (34-66%) None Present (0 Small (1-33%) %) -Necrotic Tissue Type Adherent Slough Adherent Slough -Structure Exposed N/A N/A -Texture (Margaret-wound Skin Appearance) Assessed,Callus Callus,Scarring Assessed,Callus ,Scarring -Moisture (Margaret-wound Skin Appearance) Assessed, Maceration Assessed, Maceration Maceration -Color (Margaret-wound Skin Appearance) No Abnormality, Hemosiderin Assessed,Palor Assessed Staining -Temperature (Margaret-wound Skin No Abnormality No Abnormality No Abnormality Appearance) (Pt Warm) (Pt Warm) (Pt Warm) -Tenderness on Palpation (Margaret-wound No No No Skin Appearance) -Ulcer Cleansing Soap and Water Soap and Water Soap and Water -Foul Odor after Cleansing No No No -Anesthetic Used 4% Lidocaine 4% Lidocaine Solution,5% Solution Lidocaine Gel Left Calf (cm) Left Ankle (cm) WC - Nurse 2 - General Ulcer CM Notes Start: 08/20/21 10:01 Freq: Status: Active Protocol: Activity Type Activity Date Activity User E-Sign Co-Sign Detail Recorded Client Recorded Date Recorded By Document 08/20/21 11:24 [id number] 08/20/21 11:25 Document 08/22/21 09:33 JF [id number] 08/22/21 09:38 JF Document 08/29/21 13:28 MW [id number] 08/29/21 13:30 MW Edit Result 08/29/21 13:28 MW (1) [id number] 08/30/21 07:25 PL Document 08/31/21 15:04 PL [id number] 08/31/21 15:32 PL Document 09/05/21 14:34 JF [id number] 09/05/21 14:38 JF (1) #1 left heel cluster - Type of Offloading Total Contact Cast => (TCC) - Left ($) => 08/20/21 08/22/21 08/29/21 11:24 09:33 13:28 Wound Center Nurse 2 4-left plantar arch -Time 09:34 13:28 -Correct Patient No Yes Yes -Correct Side, Site, Position No Yes Yes -Correct Procedure No Yes Yes -Procedure Performed No Yes No -Type of Procedure Debridement -Clinical Debridement Subcutaneous -Tissue Removed Subcutaneous -Post Debridement (cm) - Length 5 -Post Debridement (cm) - Width 4.8 -Post Debridement (cm) - Depth 0.2 -Total Square (Post) (cm) 24.0 -Area of Debridement (cm) - Length 5.0 -Area of Debridement (cm) - Width 4.8 -Total Square (Area) (cm) 24.00 -Tunneling No -Undermining/Tunneling No -Circular Undermining No -Wound/Ulcer Outcome Not Healed Not Healed Not Healed -Ulcer Cleansing Rinsed/ Rinsed/ Irrigated with Irrigated with Saline Saline -Foul Odor after Cleansing No -Bioengineered Tissue No -Bleeding Controlled with Pressure -Treatment Response Procedure Tolerated Well -Offloading Yes -Type of Offloading Total Contact Total Contact Cast (TCC) - Cast (TCC) - Left ($) Left ($) -Debridement - Subq, 1st 20sq cm Yes -Debridement, SubQ, ea addt'l 20sq cm 1 or part thereof #1 left heel cluster -Time 09:36 13:29 -Correct Patient No Yes Yes -Correct Side, Site, Position No Yes Yes -Correct Procedure No Yes Yes -Procedure Performed No Yes No -Type of Procedure Debridement -Clinical Debridement Subcutaneous -Tissue Removed Subcutaneous -Post Debridement (cm) - Length 2.8 -Post Debridement (cm) - Width 2.8 -Post Debridement (cm) - Depth 1.0 -Total Square (Post) (cm) 7.84 -Area of Debridement (cm) - Length 2.8 -Area of Debridement (cm) - Width 2.8 -Total Square (Area) (cm) 7.84 -Tunneling No No -Undermining/Tunneling No No -Circular Undermining No No -Wound/Ulcer Outcome Not Healed Not Healed Not Healed -Ulcer Cleansing Wound Cleanser -Foul Odor after Cleansing No -Bioengineered Tissue No -Bleeding Controlled with Pressure -Treatment Response Procedure Tolerated Well -Offloading Yes No -Type of Offloading Total Contact Cast (TCC) - Left ($) -Debridement - Subq, 1st 20sq cm No Pain Scale: 0-10 Numeric Is Patient Pain Free? Yes Yes Yes 08/31/21 09/05/21 15:04 14:34 Wound Center Nurse 2 4-left plantar arch -Time 14:45 14:34 -Correct Patient Yes Yes -Correct Side, Site, Position Yes Yes -Correct Procedure Yes Yes -Procedure Performed Yes Yes -Type of Procedure Debridement Debridement -Clinical Debridement Subcutaneous Subcutaneous -Tissue Removed Subcutaneous Subcutaneous -Post Debridement (cm) - Length 6.5 3.5 -Post Debridement (cm) - Width 4.2 3.9 -Post Debridement (cm) - Depth 0.3 0.2 -Total Square (Post) (cm) 27.30 13.65 -Area of Debridement (cm) - Length 6.5 3.5 -Area of Debridement (cm) - Width 4.2 3.9 -Total Square (Area) (cm) 27.30 13.65 -Tunneling No No -Undermining/Tunneling No No -Circular Undermining No No -Wound/Ulcer Outcome Not Healed Not Healed -Ulcer Cleansing Rinsed/ Rinsed/ Irrigated with Irrigated with Saline Saline -Foul Odor after Cleansing No No -Bioengineered Tissue No No -Bleeding Controlled with Pressure Pressure -Treatment Response Procedure Procedure Tolerated Well Tolerated Well -Offloading No -Type of Offloading Total Contact Cast (TCC) - Left ($) -Debridement - Subq, 1st 20sq cm Yes No -Debridement, SubQ, ea addt'l 20sq cm 1 or part thereof #1 left heel cluster -Time 14:45 14:34 -Correct Patient Yes Yes -Correct Side, Site, Position Yes Yes -Correct Procedure Yes Yes -Procedure Performed Yes Yes -Type of Procedure Debridement Debridement -Clinical Debridement Subcutaneous Subcutaneous -Tissue Removed Subcutaneous Subcutaneous -Post Debridement (cm) - Length 2.3 2.8 -Post Debridement (cm) - Width 2.4 2.5 -Post Debridement (cm) - Depth 0.4 0.4 -Total Square (Post) (cm) 5.52 7.00 -Area of Debridement (cm) - Length 2.3 2.8 -Area of Debridement (cm) - Width 2.4 2.5 -Total Square (Area) (cm) 5.52 7.00 -Tunneling No No -Undermining/Tunneling No No -Circular Undermining No No -Wound/Ulcer Outcome Not Healed Not Healed -Ulcer Cleansing Rinsed/ Rinsed/ Irrigated with Irrigated with Saline Saline -Foul Odor after Cleansing No No -Bioengineered Tissue No No -Bleeding Controlled with Pressure Pressure -Treatment Response Procedure Procedure Tolerated Well Tolerated Well -Offloading Yes -Type of Offloading Total Contact Cast (TCC) - Left ($) -Debridement - Subq, 1st 20sq cm No Yes Pain Scale: 0-10 Numeric Is Patient Pain Free? Yes Yes WC - Nurse 3 - General Ulcer D/C NN Start: 08/20/21 10:01 Freq: Status: Active Protocol: Activity Type Activity Date Activity User E-Sign Co-Sign Detail Recorded Client Recorded Date Recorded By Document 08/20/21 10:17 KR [id number] 08/20/21 10:18 KR Document 08/22/21 09:42 [facility] [id number] 08/22/21 09:43 BMF Document 08/27/21 09:45 AK [id number] 08/27/21 09:47 AK Document 08/29/21 13:30 MW [id number] 08/29/21 13:32 MW Document 08/31/21 15:01 AK [id number] 08/31/21 15:03 AK Document 09/03/21 08:56 DL [id number] 09/03/21 09:32 DL 08/20/21 08/22/21 08/27/21 10:17 09:42 09:45 Wound Care Nurse 3 4-left plantar arch -Ulcer Cleansing Rinsed/ Rinsed/ Rinsed/ Irrigated with Irrigated with Irrigated with Saline Saline Saline -Foul Odor after Cleansing No No -Negative Pressure Wound Therapy N/A -Primary Dressing Applied Optilok 6.5x10, Optilok 6.5x10, Aquacel AG 4x4, Silvercel Silvercel Optilok 6.5x10 -Other Dressing Tcc size 4 applied -Primary Dressing Covered/Secured with Secured with Secured with Tape Tape -Other Covering DRSG PER RB RN; TCC UNDERCAST APPLIED -Aquacel AG 4x4 1 -Optilok 6.5x10 1 1 1 -Silvercel 1 1 #1 left heel cluster -Ulcer Cleansing Rinsed/ Irrigated with Saline -Foul Odor after Cleansing No -Negative Pressure Wound Therapy -Primary Dressing Applied Optilok 6.5x10, Silvercel -Other Dressing -Primary Dressing Covered/Secured with Secured with Tape -Other Covering DRSG AND TCC UNDERCAST APPLIED PER RB RN -Optilok 6.5x10 0 -Silvercel 0 Left -Lotion applied to leg before compression wrap -Other TCC under casting Treatment Response Procedure Tolerated Well Vital Signs Temperature (97.8 F-99.1 F) Temperature Source Pulse Rate (60-100) Pulse Location Respiratory Rate (12-18) Respiratory rate source Blood Pressure (90/60-120/80) Blood Pressure Mean (mm Hg) Source Pain Scale: 0-10 Numeric Is Patient Pain Free? Yes Yes Yes Teaching: Wound Center Dressing Your Wound -Person Taught -Teaching Method -Response to teaching WC - Visit Discharge Discharge Condition Stable Stable Stable Ambulatory Status Wheelchair Wheelchair Wheelchair Transportation Private Auto Private Auto Private Auto Accompanied by Medication Reconcilliation completed & Yes provided to patient/care provider Clinical Summary of Care Provided Yes 08/29/21 08/31/21 09/03/21 13:30 15:01 08:56 Wound Care Nurse 3 4-left plantar arch -Ulcer Cleansing Soap and Water Soap and Water -Foul Odor after Cleansing No No -Negative Pressure Wound Therapy N/A -Primary Dressing Applied Optilok 6.5x10 Optilok 6.5x10 -Other Dressing Dakins wet to dakins size dakins/ dry 4 TCC superabsorber -Primary Dressing Covered/Secured with Dry Gauze, Secured with Dry Gauze & Secured with Tape Roll Gauze Tape -Other Covering TCC -Aquacel AG 4x4 -Optilok 6.5x10 1 2 -Silvercel #1 left heel cluster -Ulcer Cleansing Rinsed/ Soap and Water Soap and Water Irrigated with Saline -Foul Odor after Cleansing No No No -Negative Pressure Wound Therapy N/A N/A -Primary Dressing Applied Optilok 6.5x10 -Other Dressing dakins wet to TCC dakins/ dry, optilock superabsorber -Primary Dressing Covered/Secured with Dry Gauze, Dry Gauze & Secured with Roll Gauze Tape -Other Covering TCC betadine to macerated area per kiana -Optilok 6.5x10 1 -Silvercel Left -Lotion applied to leg before No compression wrap -Other TCC Treatment Response Procedure Procedure Tolerated Well Tolerated Well Vital Signs Temperature (97.8 F-99.1 F) 97.8 F Temperature Source Temporal Pulse Rate (60-100) 66 Pulse Location Monitor Respiratory Rate (12-18) 18 Respiratory rate source Observation Blood Pressure (90/60-120/80) 131/65 H Blood Pressure Mean (mm Hg) 87 Source Monitor Pain Scale: 0-10 Numeric Is Patient Pain Free? Yes Yes Yes Teaching: Wound Center Dressing Your Wound -Person Taught Patient -Teaching Method Discussion -Response to teaching Verbalize understanding WC - Visit Discharge Discharge Condition Stable Stable Stable Ambulatory Status Ambulatory, Ambulatory Stretcher Walker Transportation Private Auto Private Auto Private Auto Accompanied by self Medication Reconcilliation completed & No Yes provided to patient/care provider Clinical Summary of Care Provided Yes Yes Assessment/Plan Assessment/Plan (1) Non-pressure chronic ulcer of left heel and midfoot with fat layer exposed: CODE(S): L97.422 - Non-pressure chronic ulcer of left heel and midfoot with fat layer exposed (2) Ulcer of left foot with necrosis of muscle: CODE(S): L97.523 - Non-pressure chronic ulcer of other part of left foot with necrosis of muscle (3) Maceration of skin: CODE(S): L98.8 - Other specified disorders of the skin and subcutaneous tissue (4) Localized edema: CODE(S): R60.0 - Localized edema (5) Diabetes mellitus: CODE(S): E11.9 - Type 2 diabetes mellitus without complications (6) Type 2 diabetes mellitus with diabetic polyneuropathy: CODE(S): E11.42 - Type 2 diabetes mellitus with diabetic polyneuropathy QUALIFIERS: Diabetes mellitus detention insulin use: with detention use Qualified Code(s): E11.42 - Type 2 diabetes mellitus with diabetic polyneuropathy; Z79.4 - jail (current) use of insulin (7) Diabetic foot ulcer: CODE(S): E11.621 - Type 2 diabetes mellitus with foot ulcer; L97.509 - Non-pressure chronic ulcer of other part of unspecified foot with unspecified severity QUALIFIERS: Diabetic foot ulcer location: heel Diabetes mellitus type: type 2 Laterality: left Non-pressure ulcer stage: with fat layer exposed Qualified Code(s): E11.621 - Type 2 diabetes mellitus with foot ulcer; L97.422 - Non-pressure chronic ulcer of left heel and midfoot with fat layer exposed (8) Tobacco abuse: CODE(S): Z72.0 - Tobacco use PLAN: Patient seen and examined. I reviewed and discussed his case. Debridement was performed as noted in the clinical nursing panel. Dressing recommendation: silvercel was applied to wound bed with additional superabsorption secondary dressing prior to total contact cast application today. Patient wound is noted to have improved with healthier appearance and there is no malodor. There are no local signs infection noted today. He was seen by infectious disease during his last hospital admission and he had surgery on 05-29-2021. His surgical cultures had MRSA, Enterococcus, klebs, Proteus and it was down to deep tissue. He completed a 2-week course of IV vancomycin and Unasyn and then followed up with 4 weeks of oral doxycycline and Augmentin with a stop date of 07-10-21. Offloading: He is amendable to have a total contact cast applied today and verbal consent was obtained. This was applied according to standard protocol in a neutral position a well-padded manner. He tolerated this well. To keep clean, dry, and intact until follow-up visit on a biweekly basis. Patient relates he had follow-up appointment with his primary care provider, Priyanka Brown, and relates that she did not change any medication and stated he was doing okay. PCP is leaving the diabetes management up to his license examiner, Dr. Mykel Barraza. He was able to follow-up and recommendations were updated. Edema management: Medical management per primary care. To reduce salt in diet. Total contact cast will also aide in edema reduction. Arterial studies were reviewed. Showing likely adequate perfusion for healing. Right LAI is 0.99 and left 1.18. Right toe brachial index 0.76 and left 0.71. Referral to Dr. Campos for potential venous and arterial intervention was provided today. He went for consultationon 04-11-21. Will recheck duplex to make sure normal posterior tibial flow into the area of the wound. normal prior LAI noted. Host factors: His multiple comorbidities are noted including diabetes and smoking history. Also recommend improvement in nutritional status which involves taking in adequate protein and also focusing on eating 5-10 whole foods daily. All questions answered. He understands below-knee amputation is an option as well if he cannot keep pressure off the site, if pain becomes intolerable, and if he no longer is able to proceed with a comprehensive wound healing plan. He defers at this time. The etiology of thickened toenails was briefly reviewed including fungus or microtrauma. The nails were debrided with a nail nipper after verbal consent was obtained without incident. The nails were debrided in length and thickness to reduce pressure, potential fungal load, and to prevent wound formation. The patient tolerated this well. The patient elects proceed with palliative care only at this time with the nails and will hold off on further work-up. To follow-up with the [facility] if needed in the future for this condition. Location: Bilateral 2, 3, 4, 5 and left hallux Patient to follow up in 1 week or call sooner if status worsening or if questions. I answered all of his questions. This note was generated with [employer] software. It may contain incorrect words, spelling, and punctuation that were not noted in checking the note before signing.
[2021-09-10 08:52] VITALS: BP 141/49; PULSE 62; TEMP 36.3; BMI 33.7
--- NOTE | 2021-09-10 10:52 | PCM.WC.PN ---
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 A limb and life-threatening infection which required emergent surgical intervention on 05-29-2021. He then subsequently resided in the transitional care unit for wound care which he completed a course of IV antibiotics. He changed his dressing as advised and there is reduced moisture. He denies fever, chill, nausea, vomiting, pain, odor, redness. He is keeping weight off of his foot he reports. He has a knee roller at home. He is ready to have a total contact cast changed today. He continues to have a large amount of drainage and odor. He has a lot of drainage and sometimes requires an additional appointment for removal and reapplication. He is also hard of hearing. Wound care - Aquacel-Ag to the the left midfoot and left heal ulcers. Will apply betadine to the macerated area surrounding the ulcer. Progress of Wound: Courtesy visit for a total contact cast placement. He comes in today to have his cast changed do to the amount of drainage he is experiencing with a strong odor. He has been tolerating his TCC well. There is visual improvement in the ulcers on his left foot. The wound bed of both ulcers are a nice beefy pink. The left midfoot ulcer is noticably smaller. There is some maceration of the periwound due to the amount of drainage he is experiencing. The odor from his drainage is his biggest concern at this time. Objective Data Objective Data Vital Signs: Vital Signs Temp Pulse Resp BP 97.4 F L 62 16 141/49 H 09/10/21 08:52 09/10/21 08:52 09/05/21 14:12 09/10/21 08:52 Oxygen Delivery Method Room Air Body Mass Index (BMI) 33.7 Charges/Coding Addendum Addendum: CPT - 83232 Placement of total contact cast Physical Exam Const alert and oriented x3 HEENT normocephalic Resp normal respiratory effort Extremity normal capillary refill Skin Wound Narrative: Left midfoot ulcer is smaller in size. Left heel ulcer is beefy pink in color. Leandra wound is macerated. Neuro CN's II-XII intact bilaterally Psych Appearance: well kempt Debridement Note Debridement Note No debridement was completed: No debridement was completed today Post-Debridement Measurements and Additional Note: Post-Debridement Measurements/Treatment - Nurse 1 - General Ulcer Assessment Start: 08/20/21 10:01 Freq: Status: Active Protocol: EVELYN Activity Type Activity Date Activity User E-Sign Co-Sign Detail Recorded Client Recorded Date Recorded By Document 08/20/21 10:02 KR [id number] 08/20/21 10:16 KR Document 08/22/21 09:18 RB [id number] 08/22/21 09:26 RB Document 08/27/21 09:01 KR [id number] 08/27/21 09:09 KR Document 08/29/21 13:06 AK [id number] 08/29/21 13:11 AK Document 08/31/21 14:19 MW [id number] 08/31/21 14:34 MW Document 09/03/21 08:56 DL [id number] 09/03/21 09:32 DL Document 09/05/21 14:12 BMF [id number] 09/05/21 14:27 BMF Document 09/10/21 08:52 KR [id number] 09/10/21 09:00 KR 08/20/21 08/22/21 08/27/21 10:02 09:18 09:01 - Today's Visit Information Type of service Nurse-only Follow-up Visit Follow-up Visit Visit (Physician/DIRECTOR OF EMERGENCY NURSING (Physician/DIRECTOR OF EMERGENCY NURSING ) ) Arrival Mode Wheelchair Wheelchair Wheelchair Transfer Assistance Manual Transfer Assist (Other) Accompanied by Patient Identification Verified (Name & Yes Yes Yes ) Patient Requires Transmission-Based No Precautions Safety Precautions Finger Stick Blood Sugar(mg/dl) (if 141 indicated): Blood Sugar Stated by Patient Height and Weight Body Mass Index (BMI) 33.7 33.7 33.7 BMI Classification Obese Obese Obese Vital Signs Temperature (97.8 F-99.1 F) 97.1 F L 97.3 F L 97.4 F L Temperature Source Temporal Temporal Temporal Pulse Rate (60-100) 61 63 64 Pulse Location Monitor Apical Monitor Respiratory Rate (12-18) 18 Respiratory rate source Observation Oxygen Delivery Method Blood Pressure (90/60-120/80) 145/77 H 145/78 H 155/61 H Blood Pressure Mean (mm Hg) 99 100 92 Source Monitor Monitor Monitor Position Sitting Semi-Fowlers Semi-Fowlers Blood Pressure Location Left Arm Left Forearm Right Arm History Since Last Visit- (Skip if this is Patient's initial visit) Have you changed medications since your No No No last visit? Any new allergies or adverse reactions No No No Had a fall/change in ADL's that may No No No increase risk of falls Signs or symptoms of abuse and/or No No No neglect since last visit Have you been in the hospital since your No No No last visit? Has dressing in place as prescribed Yes Yes Yes Has compression in place as prescribed N/A N/A Has offloadiing in place as prescribed Yes Yes Yes Experienced any changes in pain level or No No No management Left Footwear Total Contact Total Contact Total Contact Cast Cast Cast Right Footwear Regular Shoe Regular Shoe Regular Shoe Pain Scale: 0-10 Numeric Is Patient Pain Free? Yes Yes Yes 08/29/21 08/31/21 09/03/21 13:06 14:19 08:56 WC - Today's Visit Information Type of service Follow-up Visit Follow-up Visit Nurse-only (Physician/DIRECTOR OF EMERGENCY NURSING (Physician/DIRECTOR OF EMERGENCY NURSING Visit ) ) Arrival Mode Wheelchair Wheelchair Wheelchair Transfer Assistance Manual None Transfer Board Transfer Assist (Other) x1 Accompanied by SELF Patient Identification Verified (Name & Yes Yes Yes ) Patient Requires Transmission-Based No No No Precautions Safety Precautions Fall Prevention Finger Stick Blood Sugar(mg/dl) (if 141 141 148 indicated): Blood Sugar Stated by Stated by Stated by Patient Patient Patient Height and Weight Body Mass Index (BMI) 33.7 33.7 33.7 BMI Classification Obese Obese Obese Vital Signs Temperature (97.8 F-99.1 F) 96.2 F L 97.7 F L 97.8 F Temperature Source Temporal Temporal Temporal Pulse Rate (60-100) 68 74 66 Pulse Location Monitor Monitor Monitor Respiratory Rate (12-18) 22 H 18 18 Respiratory rate source Observation Observation Observation Oxygen Delivery Method Room Air Blood Pressure (90/60-120/80) 120/65 147/74 H 131/65 H Blood Pressure Mean (mm Hg) 83 98 87 Source Monitor Monitor Monitor Position Sitting Blood Pressure Location Right Forearm History Since Last Visit- (Skip if this is Patient's initial visit) Have you changed medications since your No No No last visit? Any new allergies or adverse reactions No No No Had a fall/change in ADL's that may No No No increase risk of falls Signs or symptoms of abuse and/or No No No neglect since last visit Have you been in the hospital since your No No No last visit? Has dressing in place as prescribed Yes Yes Yes Has compression in place as prescribed N/A Yes N/A Has offloadiing in place as prescribed Yes N/A Yes Experienced any changes in pain level or No No No management Left Footwear Total Contact Total Contact Total Contact Cast Cast Cast Right Footwear Regular Shoe Slipper Pain Scale: 0-10 Numeric Is Patient Pain Free? Yes Yes Yes 09/05/21 09/10/21 14:12 08:52 WC - Today's Visit Information Type of service Follow-up Visit (Physician/DIRECTOR OF EMERGENCY NURSING ) Arrival Mode Ambulatory Transfer Assistance Transfer Assist (Other) Accompanied by Patient Identification Verified (Name & Yes ) Patient Requires Transmission-Based Precautions Safety Precautions Finger Stick Blood Sugar(mg/dl) (if indicated): Blood Sugar Height and Weight Body Mass Index (BMI) 33.7 33.7 BMI Classification Obese Obese Vital Signs Temperature (97.8 F-99.1 F) 98.2 F 97.4 F L Temperature Source Temporal Temporal Pulse Rate (60-100) 71 62 Pulse Location Monitor Monitor Respiratory Rate (12-18) 16 Respiratory rate source Observation Oxygen Delivery Method Room Air Blood Pressure (90/60-120/80) 124/62 H 141/49 H Blood Pressure Mean (mm Hg) 82 79 Source Monitor Monitor Position Sitting Sitting Blood Pressure Location Left Forearm Left Arm History Since Last Visit- (Skip if this is Patient's initial visit) Have you changed medications since your No last visit? Any new allergies or adverse reactions No Had a fall/change in ADL's that may No increase risk of falls Signs or symptoms of abuse and/or No neglect since last visit Have you been in the hospital since your No last visit? Has dressing in place as prescribed Yes Has compression in place as prescribed N/A Has offloadiing in place as prescribed Yes Experienced any changes in pain level or No management Left Footwear Regular Shoe Right Footwear Removable Cast Walker/Walking Boot Pain Scale: 0-10 Numeric Is Patient Pain Free? Yes Yes WC - Nurse 1 - General Ulcer Measurement Start: 08/20/21 10:01 Freq: Status: Active Protocol: Activity Type Activity Date Activity User E-Sign Co-Sign Detail Recorded Client Recorded Date Recorded By Document 08/22/21 09:18 RB [id number] 08/22/21 09:26 RB Document 08/27/21 09:01 KR [id number] 08/27/21 09:09 KR Document 08/29/21 13:06 AK [id number] 08/29/21 13:11 AK Document 08/31/21 14:19 MW [id number] 08/31/21 14:34 MW Document 09/03/21 08:56 DL [id number] 09/03/21 09:32 DL Document 09/05/21 14:12 BMF [id number] 09/05/21 14:27 BMF Document 09/10/21 08:52 KR [id number] 09/10/21 09:00 KR 08/22/21 08/27/21 08/29/21 09:18 09:01 13:06 Wound Center Nurse 1 4-left plantar arch -Combined with other wound No -Current Size (cm) - Length 5 5.8 4.2 -Current Size (cm) - Width 4.8 4.2 4.5 -Current Size (cm) - Depth 0.2 0.2 0.3 -Total Square Cm 24.0 24.36 18.90 -Date of Last Picture (Recall this field) -Photo Taken No -Epithelialization -Tunneling No -Undermining/Tunneling No -Circular Undermining No -Exudate Amt Large Large Large -Exudate Type Serosanguineous Serosanguineous Serosanguineous -Wound Margin Thickened & Distinct, Thickened Rolled Under Outline Attached -Granulation Amt Medium (34-66%) Medium (34-66%) Medium (34-66%) -Granulation Quality [place] Red Red -Slough/Fibrin Yes -Necrosis Amt Medium (34-66%) Medium (34-66%) Medium (34-66%) -Necrotic Tissue Type Adherent Slough Adherent Slough Adherent Slough -Structure Exposed N/A Fat Layer N/A Exposed -Texture (Leandra-wound Skin Appearance) Assessed Assessed, Callus,Scarring Scarring -Moisture (Leandra-wound Skin Appearance) Maceration Assessed, Maceration Maceration -Color (Leandra-wound Skin Appearance) Assessed No Abnormality, Hemosiderin Assessed Staining -Temperature (Leandra-wound Skin No Abnormality No Abnormality No Abnormality Appearance) (Pt Warm) (Pt Warm) (Pt Warm) -Tenderness on Palpation (Leandra-wound No No Skin Appearance) -Ulcer Cleansing Wound Cleanser Soap and Water Soap and Water -Foul Odor after Cleansing No Yes No -Anesthetic Used 4% Lidocaine 4% Lidocaine 4% Lidocaine Solution Solution Solution #1 left heel cluster -Combined with other wound -Current Size (cm) - Length 2.7 2.5 2.5 -Current Size (cm) - Width 2.8 2.8 2.5 -Current Size (cm) - Depth 1 0.2 0.2 -Total Square Cm 7.56 7.00 6.25 -Date of Last Picture (Recall this field) -Photo Taken No -Epithelialization -Tunneling No -Undermining/Tunneling No -Circular Undermining No -Classification - Acevedo Grading ( Diabetic Ulcer) -Exudate Amt Large Large Large -Exudate Type Serosanguineous Serosanguineous Serosanguineous -Wound Margin Thickened & Distinct, Distinct, Rolled Under Outline Outline Attached Attached -Granulation Amt Medium (34-66%) Medium (34-66%) Medium (34-66%) -Granulation Quality [place] Red Red -Slough/Fibrin Yes -Necrosis Amt Medium (34-66%) Medium (34-66%) Medium (34-66%) -Necrotic Tissue Type Adherent Slough Adherent Slough Adherent Slough -Structure Exposed N/A Fat Layer N/A Exposed -Texture (Leandra-wound Skin Appearance) Callus Assessed, Callus,Scarring Scarring -Moisture (Leandra-wound Skin Appearance) Maceration Assessed, Maceration Maceration -Color (Leandra-wound Skin Appearance) Assessed No Abnormality, Hemosiderin Assessed Staining -Temperature (Leandra-wound Skin No Abnormality No Abnormality No Abnormality Appearance) (Pt Warm) (Pt Warm) (Pt Warm) -Tenderness on Palpation (Leandra-wound No No No Skin Appearance) -Ulcer Cleansing Wound Cleanser Soap and Water Soap and Water -Foul Odor after Cleansing No Yes No -Anesthetic Used 4% Lidocaine 4% Lidocaine 4% Lidocaine Solution Solution Solution Left Calf (cm) 50.5 Left Ankle (cm) 31 08/31/21 09/03/21 09/05/21 14:19 08:56 14:12 Wound Center Nurse 1 4-left plantar arch -Combined with other wound No No -Current Size (cm) - Length 6.5 4 3.5 -Current Size (cm) - Width 4.2 5 3.8 -Current Size (cm) - Depth 0.3 0.6 0.2 -Total Square Cm 27.30 20 13.30 -Date of Last Picture (Recall this 09/05/21 field) -Photo Taken No No Yes -Epithelialization Small 1-33% -Tunneling No No -Undermining/Tunneling No No -Circular Undermining No No -Exudate Amt Medium Large Large -Exudate Type Serosanguineous Serosanguineous Serosanguineous -Wound Margin Distinct, Distinct, Distinct, Outline Outline Outline Attached Attached Attached -Granulation Amt Medium (34-66%) Large (67-100%) Large (67-100%) -Granulation Quality [place] Red Red -Slough/Fibrin Yes -Necrosis Amt None Present (0 Small (1-33%) %) -Necrotic Tissue Type Adherent Slough -Structure Exposed N/A N/A -Texture (Leandra-wound Skin Appearance) No Abnormality, Callus,Scarring Assessed, Assessed Scarring -Moisture (Leandra-wound Skin Appearance) Assessed, Maceration Assessed, Maceration Maceration -Color (Leandra-wound Skin Appearance) Assessed No Abnormality, Assessed,Palor Hemosiderin Staining -Temperature (Leandra-wound Skin No Abnormality No Abnormality No Abnormality Appearance) (Pt Warm) (Pt Warm) (Pt Warm) -Tenderness on Palpation (Leandra-wound No No No Skin Appearance) -Ulcer Cleansing Soap and Water Soap and Water Soap and Water -Foul Odor after Cleansing No No No -Anesthetic Used 4% Lidocaine 4% Lidocaine Solution Solution #1 left heel cluster -Combined with other wound No -Current Size (cm) - Length 2.3 2.2 2.7 -Current Size (cm) - Width 2.2 2.6 2.5 -Current Size (cm) - Depth 0.4 0.7 0.4 -Total Square Cm 5.06 5.72 6.75 -Date of Last Picture (Recall this 09/05/21 field) -Photo Taken No No Yes -Epithelialization None Present Small 1-33% -Tunneling No No -Undermining/Tunneling No No -Circular Undermining No No -Classification - Acevedo Grading ( Grade 2 Diabetic Ulcer) -Exudate Amt Large Large -Exudate Type Serosanguineous Serosanguineous Serosanguineous -Wound Margin Thickened & Distinct, Thickened Rolled Under Outline Attached -Granulation Amt Large (67-100%) Large (67-100%) Large (67-100%) -Granulation Quality Red Red Red -Slough/Fibrin Yes -Necrosis Amt Medium (34-66%) None Present (0 Small (1-33%) %) -Necrotic Tissue Type Adherent Slough Adherent Slough -Structure Exposed N/A N/A -Texture (Leandra-wound Skin Appearance) Assessed,Callus Callus,Scarring Assessed,Callus ,Scarring -Moisture (Leandra-wound Skin Appearance) Assessed, Maceration Assessed, Maceration Maceration -Color (Leandra-wound Skin Appearance) No Abnormality, Hemosiderin Assessed,Palor Assessed Staining -Temperature (Leandra-wound Skin No Abnormality No Abnormality No Abnormality Appearance) (Pt Warm) (Pt Warm) (Pt Warm) -Tenderness on Palpation (Leandra-wound No No No Skin Appearance) -Ulcer Cleansing Soap and Water Soap and Water Soap and Water -Foul Odor after Cleansing No No No -Anesthetic Used 4% Lidocaine 4% Lidocaine Solution,5% Solution Lidocaine Gel Left Calf (cm) Left Ankle (cm) 09/10/21 08:52 Wound Center Nurse 1 4-left plantar arch -Combined with other wound -Current Size (cm) - Length 4.8 -Current Size (cm) - Width 3.8 -Current Size (cm) - Depth 0.2 -Total Square Cm 18.24 -Date of Last Picture (Recall this field) -Photo Taken -Epithelialization -Tunneling -Undermining/Tunneling -Circular Undermining -Exudate Amt Large -Exudate Type Serosanguineous -Wound Margin Distinct, Outline Attached -Granulation Amt Medium (34-66%) -Granulation Quality [place] -Slough/Fibrin -Necrosis Amt Medium (34-66%) -Necrotic Tissue Type Adherent Slough -Structure Exposed -Texture (Leandra-wound Skin Appearance) Assessed, Scarring -Moisture (Leandra-wound Skin Appearance) Assessed -Color (Leandra-wound Skin Appearance) No Abnormality, Assessed -Temperature (Leandra-wound Skin No Abnormality Appearance) (Pt Warm) -Tenderness on Palpation (Leandra-wound No Skin Appearance) -Ulcer Cleansing Soap and Water -Foul Odor after Cleansing No -Anesthetic Used 4% Lidocaine Solution #1 left heel cluster -Combined with other wound -Current Size (cm) - Length 2.5 -Current Size (cm) - Width 2.3 -Current Size (cm) - Depth 0.4 -Total Square Cm 5.75 -Date of Last Picture (Recall this field) -Photo Taken -Epithelialization -Tunneling -Undermining/Tunneling -Circular Undermining -Classification - Acevedo Grading ( Diabetic Ulcer) -Exudate Amt Large -Exudate Type Serosanguineous -Wound Margin Distinct, Outline Attached -Granulation Amt Medium (34-66%) -Granulation Quality [place] -Slough/Fibrin -Necrosis Amt Medium (34-66%) -Necrotic Tissue Type Adherent Slough -Structure Exposed -Texture (Leandra-wound Skin Appearance) Assessed, Scarring -Moisture (Leandra-wound Skin Appearance) Assessed, Maceration -Color (Leandra-wound Skin Appearance) No Abnormality, Assessed -Temperature (Leandra-wound Skin No Abnormality Appearance) (Pt Warm) -Tenderness on Palpation (Leandra-wound No Skin Appearance) -Ulcer Cleansing Soap and Water -Foul Odor after Cleansing No -Anesthetic Used 4% Lidocaine Solution Left Calf (cm) Left Ankle (cm) WC - Nurse 2 - General Ulcer CM Notes Start: 08/20/21 10:01 Freq: Status: Active Protocol: Activity Type Activity Date Activity User E-Sign Co-Sign Detail Recorded Client Recorded Date Recorded By Document 08/20/21 11:24 JF [id number] 08/20/21 11:25 Document 08/22/21 09:33 JF [id number] 08/22/21 09:38 JF Document 08/29/21 13:28 MW [id number] 08/29/21 13:30 MW Edit Result 08/29/21 13:28 MW (1) [id number] 08/30/21 07:25 PL Document 08/31/21 15:04 PL [id number] 08/31/21 15:32 PL Document 09/05/21 14:34 JF [id number] 09/05/21 14:38 JF (1) #1 left heel cluster - Type of Offloading Total Contact Cast => (TCC) - Left ($) => 08/20/21 08/22/21 08/29/21 11:24 09:33 13:28 Wound Center Nurse 2 4-left plantar arch -Time 09:34 13:28 -Correct Patient No Yes Yes -Correct Side, Site, Position No Yes Yes -Correct Procedure No Yes Yes -Procedure Performed No Yes No -Type of Procedure Debridement -Clinical Debridement Subcutaneous -Tissue Removed Subcutaneous -Post Debridement (cm) - Length 5 -Post Debridement (cm) - Width 4.8 -Post Debridement (cm) - Depth 0.2 -Total Square (Post) (cm) 24.0 -Area of Debridement (cm) - Length 5.0 -Area of Debridement (cm) - Width 4.8 -Total Square (Area) (cm) 24.00 -Tunneling No -Undermining/Tunneling No -Circular Undermining No -Wound/Ulcer Outcome Not Healed Not Healed Not Healed -Ulcer Cleansing Rinsed/ Rinsed/ Irrigated with Irrigated with Saline Saline -Foul Odor after Cleansing No -Bioengineered Tissue No -Bleeding Controlled with Pressure -Treatment Response Procedure Tolerated Well -Offloading Yes -Type of Offloading Total Contact Total Contact Cast (TCC) - Cast (TCC) - Left ($) Left ($) -Debridement - Subq, 1st 20sq cm Yes -Debridement, SubQ, ea addt'l 20sq cm 1 or part thereof #1 left heel cluster -Time 09:36 13:29 -Correct Patient No Yes Yes -Correct Side, Site, Position No Yes Yes -Correct Procedure No Yes Yes -Procedure Performed No Yes No -Type of Procedure Debridement -Clinical Debridement Subcutaneous -Tissue Removed Subcutaneous -Post Debridement (cm) - Length 2.8 -Post Debridement (cm) - Width 2.8 -Post Debridement (cm) - Depth 1.0 -Total Square (Post) (cm) 7.84 -Area of Debridement (cm) - Length 2.8 -Area of Debridement (cm) - Width 2.8 -Total Square (Area) (cm) 7.84 -Tunneling No No -Undermining/Tunneling No No -Circular Undermining No No -Wound/Ulcer Outcome Not Healed Not Healed Not Healed -Ulcer Cleansing Wound Cleanser -Foul Odor after Cleansing No -Bioengineered Tissue No -Bleeding Controlled with Pressure -Treatment Response Procedure Tolerated Well -Offloading Yes No -Type of Offloading Total Contact Cast (TCC) - Left ($) -Debridement - Subq, 1st 20sq cm No Pain Scale: 0-10 Numeric Is Patient Pain Free? Yes Yes Yes 08/31/21 09/05/21 15:04 14:34 Wound Center Nurse 2 4-left plantar arch -Time 14:45 14:34 -Correct Patient Yes Yes -Correct Side, Site, Position Yes Yes -Correct Procedure Yes Yes -Procedure Performed Yes Yes -Type of Procedure Debridement Debridement -Clinical Debridement Subcutaneous Subcutaneous -Tissue Removed Subcutaneous Subcutaneous -Post Debridement (cm) - Length 6.5 3.5 -Post Debridement (cm) - Width 4.2 3.9 -Post Debridement (cm) - Depth 0.3 0.2 -Total Square (Post) (cm) 27.30 13.65 -Area of Debridement (cm) - Length 6.5 3.5 -Area of Debridement (cm) - Width 4.2 3.9 -Total Square (Area) (cm) 27.30 13.65 -Tunneling No No -Undermining/Tunneling No No -Circular Undermining No No -Wound/Ulcer Outcome Not Healed Not Healed -Ulcer Cleansing Rinsed/ Rinsed/ Irrigated with Irrigated with Saline Saline -Foul Odor after Cleansing No No -Bioengineered Tissue No No -Bleeding Controlled with Pressure Pressure -Treatment Response Procedure Procedure Tolerated Well Tolerated Well -Offloading No -Type of Offloading Total Contact Cast (TCC) - Left ($) -Debridement - Subq, 1st 20sq cm Yes No -Debridement, SubQ, ea addt'l 20sq cm 1 or part thereof #1 left heel cluster -Time 14:45 14:34 -Correct Patient Yes Yes -Correct Side, Site, Position Yes Yes -Correct Procedure Yes Yes -Procedure Performed Yes Yes -Type of Procedure Debridement Debridement -Clinical Debridement Subcutaneous Subcutaneous -Tissue Removed Subcutaneous Subcutaneous -Post Debridement (cm) - Length 2.3 2.8 -Post Debridement (cm) - Width 2.4 2.5 -Post Debridement (cm) - Depth 0.4 0.4 -Total Square (Post) (cm) 5.52 7.00 -Area of Debridement (cm) - Length 2.3 2.8 -Area of Debridement (cm) - Width 2.4 2.5 -Total Square (Area) (cm) 5.52 7.00 -Tunneling No No -Undermining/Tunneling No No -Circular Undermining No No -Wound/Ulcer Outcome Not Healed Not Healed -Ulcer Cleansing Rinsed/ Rinsed/ Irrigated with Irrigated with Saline Saline -Foul Odor after Cleansing No No -Bioengineered Tissue No No -Bleeding Controlled with Pressure Pressure -Treatment Response Procedure Procedure Tolerated Well Tolerated Well -Offloading Yes -Type of Offloading Total Contact Cast (TCC) - Left ($) -Debridement - Subq, 1st 20sq cm No Yes Pain Scale: 0-10 Numeric Is Patient Pain Free? Yes Yes WC - Nurse 3 - General Ulcer D/C NN Start: 08/20/21 10:01 Freq: Status: Active Protocol: Activity Type Activity Date Activity User E-Sign Co-Sign Detail Recorded Client Recorded Date Recorded By Document 08/20/21 10:17 KR [id number] 08/20/21 10:18 KR Document 08/22/21 09:42 [facility] [id number] 08/22/21 09:43 BMF Document 08/27/21 09:45 AK [id number] 08/27/21 09:47 AK Document 08/29/21 13:30 MW [id number] 08/29/21 13:32 MW Document 08/31/21 15:01 AK [id number] 08/31/21 15:03 AK Document 09/03/21 08:56 DL [id number] 09/03/21 09:32 DL Document 09/10/21 09:25 DL [id number] 09/10/21 09:29 DL 08/20/21 08/22/21 08/27/21 10:17 09:42 09:45 Wound Care Nurse 3 4-left plantar arch -Ulcer Cleansing Rinsed/ Rinsed/ Rinsed/ Irrigated with Irrigated with Irrigated with Saline Saline Saline -Foul Odor after Cleansing No No -Negative Pressure Wound Therapy N/A -Primary Dressing Applied Optilok 6.5x10, Optilok 6.5x10, Aquacel AG 4x4, Silvercel Silvercel Optilok 6.5x10 -Other Dressing Tcc size 4 applied -Primary Dressing Covered/Secured with Secured with Secured with Tape Tape -Other Covering DRSG PER RB RN; TCC UNDERCAST APPLIED -Aquacel AG 4x4 1 -Optilok 6.5x10 1 1 1 -Silvercel 1 1 #1 left heel cluster -Ulcer Cleansing Rinsed/ Irrigated with Saline -Foul Odor after Cleansing No -Negative Pressure Wound Therapy -Primary Dressing Applied Optilok 6.5x10, Silvercel -Other Dressing -Primary Dressing Covered/Secured with Secured with Tape -Other Covering DRSG AND TCC UNDERCAST APPLIED PER RB RN -Optilok 6.5x10 0 -Silvercel 0 Left -Lotion applied to leg before compression wrap -Other TCC under casting Treatment Response Procedure Tolerated Well Vital Signs Temperature (97.8 F-99.1 F) Temperature Source Pulse Rate (60-100) Pulse Location Respiratory Rate (12-18) Respiratory rate source Blood Pressure (90/60-120/80) Blood Pressure Mean (mm Hg) Source Pain Scale: 0-10 Numeric Is Patient Pain Free? Yes Yes Yes Teaching: Wound Center Dressing Your Wound -Person Taught -Teaching Method -Response to teaching WC - Visit Discharge Discharge Condition Stable Stable Stable Ambulatory Status Wheelchair Wheelchair Wheelchair Transportation Private Auto Private Auto Private Auto Accompanied by Medication Reconcilliation completed & Yes provided to patient/care provider Clinical Summary of Care Provided Yes Facility Type Orders Sent 08/29/21 08/31/21 09/03/21 13:30 15:01 08:56 Wound Care Nurse 3 4-left plantar arch -Ulcer Cleansing Soap and Water Soap and Water -Foul Odor after Cleansing No No -Negative Pressure Wound Therapy N/A -Primary Dressing Applied Optilok 6.5x10 Optilok 6.5x10 -Other Dressing Dakins wet to dakins size dakins/ dry 4 TCC superabsorber -Primary Dressing Covered/Secured with Dry Gauze, Secured with Dry Gauze & Secured with Tape Roll Gauze Tape -Other Covering TCC -Aquacel AG 4x4 -Optilok 6.5x10 1 2 -Silvercel #1 left heel cluster -Ulcer Cleansing Rinsed/ Soap and Water Soap and Water Irrigated with Saline -Foul Odor after Cleansing No No No -Negative Pressure Wound Therapy N/A N/A -Primary Dressing Applied Optilok 6.5x10 -Other Dressing dakins wet to TCC dakins/ dry, optilock superabsorber -Primary Dressing Covered/Secured with Dry Gauze, Dry Gauze & Secured with Roll Gauze Tape -Other Covering TCC betadine to macerated area per casemanager -Optilok 6.5x10 1 -Silvercel Left -Lotion applied to leg before No compression wrap -Other TCC Treatment Response Procedure Procedure Tolerated Well Tolerated Well Vital Signs Temperature (97.8 F-99.1 F) 97.8 F Temperature Source Temporal Pulse Rate (60-100) 66 Pulse Location Monitor Respiratory Rate (12-18) 18 Respiratory rate source Observation Blood Pressure (90/60-120/80) 131/65 H Blood Pressure Mean (mm Hg) 87 Source Monitor Pain Scale: 0-10 Numeric Is Patient Pain Free? Yes Yes Yes Teaching: Wound Center Dressing Your Wound -Person Taught Patient -Teaching Method Discussion -Response to teaching Verbalize understanding WC - Visit Discharge Discharge Condition Stable Stable Stable Ambulatory Status Ambulatory, Ambulatory Stretcher Walker Transportation Private Auto Private Auto Private Auto Accompanied by self Medication Reconcilliation completed & No Yes provided to patient/care provider Clinical Summary of Care Provided Yes Yes Facility Type Orders Sent 09/10/21 09:25 Wound Care Nurse 3 4-left plantar arch -Ulcer Cleansing Soap and Water -Foul Odor after Cleansing No -Negative Pressure Wound Therapy -Primary Dressing Applied Silvercel -Other Dressing betadine tomacerated area/ suberabsorber -Primary Dressing Covered/Secured with -Other Covering TCC casting -Aquacel AG 4x4 -Optilok 6.5x10 -Silvercel 1 #1 left heel cluster -Ulcer Cleansing Soap and Water -Foul Odor after Cleansing No -Negative Pressure Wound Therapy -Primary Dressing Applied -Other Dressing silvercel/ superabsorber/ betadine to macerated area -Primary Dressing Covered/Secured with -Other Covering TCC casting -Optilok 6.5x10 -Silvercel Left -Lotion applied to leg before compression wrap -Other Treatment Response Procedure Tolerated Well Vital Signs Temperature (97.8 F-99.1 F) Temperature Source Pulse Rate (60-100) Pulse Location Respiratory Rate (12-18) Respiratory rate source Blood Pressure (90/60-120/80) Blood Pressure Mean (mm Hg) Source Pain Scale: 0-10 Numeric Is Patient Pain Free? Yes Teaching: Wound Center Dressing Your Wound -Person Taught -Teaching Method -Response to teaching WC - Visit Discharge Discharge Condition Stable Ambulatory Status Wheelchair Transportation Accompanied by Medication Reconcilliation completed & provided to patient/care provider Clinical Summary of Care Provided Facility Type Home Health Orders Sent Yes Assessment/Plan Assessment/Plan (1) Ulcer of left foot with necrosis of muscle: CODE(S): L97.523 - Non-pressure chronic ulcer of other part of left foot with necrosis of muscle (2) Ulcer of left foot with fat layer exposed: CODE(S): L97.522 - Non-pressure chronic ulcer of other part of left foot with fat layer exposed (3) Maceration of skin: CODE(S): L98.8 - Other specified disorders of the skin and subcutaneous tissue (4) Type 2 diabetes mellitus with diabetic polyneuropathy: CODE(S): E11.42 - Type 2 diabetes mellitus with diabetic polyneuropathy QUALIFIERS: Diabetes mellitus 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 insulin use: with detention use Qualified Code(s): E11.42 - Type 2 diabetes mellitus with diabetic polyneuropathy; Z79.4 - terminal operator (current) use of insulin (5) Diabetic foot ulcer: CODE(S): E11.621 - Type 2 diabetes mellitus with foot ulcer; L97.509 - Non-pressure chronic ulcer of other part of unspecified foot with unspecified severity QUALIFIERS: Diabetic foot ulcer location: heel Diabetes mellitus type: type 2 Laterality: left Non-pressure ulcer stage: with fat layer exposed Qualified Code(s): E11.621 - Type 2 diabetes mellitus with foot ulcer; L97.422 - Non-pressure chronic ulcer of left heel and midfoot with fat layer exposed (6) Tobacco abuse: CODE(S): Z72.0 - Tobacco use PLAN: This is a courtesy visit for a TCC change. Dressing recommendation: Today we will place Aquacel - Ag to both ulcers and cover with a superabsorption secondary dressing prior to total contact cast application today. Will use betadine to the leandra wound that is macerated to see if this helps dry it out. Once the cast is removed and his foot is cleansed, his ulcers on his left foot, especially the midfoot ulcer, are showing improvement using the TCC. He will follow up on with Dr. Chapman on Friday.
[2021-09-12 11:10] VITALS: BP 146/80; PULSE 66; RESP 16; TEMP 36.8; BMI 33.7
--- NOTE | 2021-09-12 13:07 | PCM.WC.PN ---
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 A limb and life-threatening infection which required emergent surgical intervention on 05-29-2021. He then subsequently resided in the transitional care unit for wound care which he completed a course of IV antibiotics. He changed his dressing as advised and there is reduced moisture. He denies fever, chill, nausea, vomiting, pain, odor, redness. He is keeping weight off of his foot he reports. He reports he seems to do better when he takes a break from total contact cast of the couple days a week to make sure the ulcer site is cleaned up very well. Wound care - Aquacel-Ag to the the left midfoot and left heal ulcers. Will apply betadine to the macerated area surrounding the ulcer. Progress of Wound: Improving Objective Data Objective Data Vital Signs: Vital Signs Temp Pulse Resp BP 98.2 F 66 16 146/80 H 09/12/21 11:10 09/12/21 11:10 09/12/21 11:10 09/12/21 11:10 Oxygen Delivery Method Room Air Body Mass Index (BMI) 33.7 Physical Exam Narrative Const alert and no apparent distress General Appearance: cooperative and comfortable Extremity There is diffuse left foot/ankle and leg swelling. Left foot s/p debridement to arch and heel, tissues are healthy and viable, granular. no longer visualized fascia and muscle layer. There is no streaking or odor, compartments remain soft to palpate, there is no fluctuance or bogginess on palpation, no drainage, no visible abscess, no cellulitis, no blistering present. At the plantar arch, there is devitalized exposed fascia?tendon which is no longer directly visualized. Hematogenous drainage only upon debridement. Periwound moisture and maceration is decreased. reduced ulcer depth is continually noted. General Extremity: Negative for clubbing or cyanosis to digits. Vasc normal capillary refill, no acute ischemic skin changes noted, normal temperature bilateral. Skin Skin Narrative: Wound Narrative: Neuro Neuro Narrative: Debridement Note Debridement Note Wound debrided: left arch and heel Wound Grade/Stage: 3,3 Type of Debridement: Excisional debridement Anesthesia Used: 4% Lidocaine Solution Depth: in the subcutaneous layer Percentage of wound debrided: 100 Instrument Used: #15 blade Tissue Removed: fibrous, devitalized subcutaneous, biofilm, slough Severity: Fat Layer Exposed Amount of bleeding with debridement: Mild Bleeding Controlled with: Pressure Patient tolerated procedure: Patient tolerated procedure well Post-Debridement Measurements and Additional Note: Post-Debridement Measurements/Treatment - Nurse 1 - General Ulcer Assessment Start: 08/20/21 10:01 Freq: Status: Active Protocol: .LOWEXT Activity Type Activity Date Activity User E-Sign Co-Sign Detail Recorded Client Recorded Date Recorded By Document 08/20/21 10:02 KR [id number] 08/20/21 10:16 KR Document 08/22/21 09:18 RB [id number] 08/22/21 09:26 RB Document 08/27/21 09:01 KR [id number] 08/27/21 09:09 KR Document 08/29/21 13:06 AK [id number] 08/29/21 13:11 AK Document 08/31/21 14:19 MW [id number] 08/31/21 14:34 MW Document 09/03/21 08:56 DL [id number] 09/03/21 09:32 DL Document 09/05/21 14:12 [facility] [id number] 09/05/21 14:27 BMF Document 09/10/21 08:52 KR [id number] 09/10/21 09:00 KR Document 09/12/21 11:10 [facility] [id number] 09/12/21 11:12 [facility] 08/20/21 08/22/21 08/27/21 10:02 09:18 09:01 - Today's Visit Information Type of service Nurse-only Follow-up Visit Follow-up Visit Visit (Physician/TRANSIT MAN (Physician/TRANSIT MAN ) ) Arrival Mode Wheelchair Wheelchair Wheelchair Transfer Assistance Manual Transfer Assist (Other) Accompanied by Patient Identification Verified (Name & Yes Yes Yes ) Patient Requires Transmission-Based No Precautions Safety Precautions Finger Stick Blood Sugar(mg/dl) (if 141 indicated): Blood Sugar Stated by Patient Height and Weight Body Mass Index (BMI) 33.7 33.7 33.7 BMI Classification Obese Obese Obese Vital Signs Temperature (97.8 F-99.1 F) 97.1 F L 97.3 F L 97.4 F L Temperature Source Temporal Temporal Temporal Pulse Rate (60-100) 61 63 64 Pulse Location Monitor Apical Monitor Respiratory Rate (12-18) 18 Respiratory rate source Observation Oxygen Delivery Method Blood Pressure (90/60-120/80) 145/77 H 145/78 H 155/61 H Blood Pressure Mean (mm Hg) 99 100 92 Source Monitor Monitor Monitor Position Sitting Semi-Fowlers Semi-Fowlers Blood Pressure Location Left Arm Left Forearm Right Arm History Since Last Visit- (Skip if this is Patient's initial visit) Have you changed medications since your No No No last visit? Any new allergies or adverse reactions No No No Had a fall/change in ADL's that may No No No increase risk of falls Signs or symptoms of abuse and/or No No No neglect since last visit Have you been in the hospital since your No No No last visit? Has dressing in place as prescribed Yes Yes Yes Has compression in place as prescribed N/A N/A Has offloadiing in place as prescribed Yes Yes Yes Experienced any changes in pain level or No No No management Left Footwear Total Contact Total Contact Total Contact Cast Cast Cast Right Footwear Regular Shoe Regular Shoe Regular Shoe Pain Scale: 0-10 Numeric Is Patient Pain Free? Yes Yes Yes 08/29/21 08/31/21 09/03/21 13:06 14:19 08:56 WC - Today's Visit Information Type of service Follow-up Visit Follow-up Visit Nurse-only (Physician/TRANSIT MAN (Physician/TRANSIT MAN Visit ) ) Arrival Mode Wheelchair Wheelchair Wheelchair Transfer Assistance Manual None Transfer Board Transfer Assist (Other) x1 Accompanied by SELF Patient Identification Verified (Name & Yes Yes Yes ) Patient Requires Transmission-Based No No No Precautions Safety Precautions Fall Prevention Finger Stick Blood Sugar(mg/dl) (if 141 141 148 indicated): Blood Sugar Stated by Stated by Stated by Patient Patient Patient Height and Weight Body Mass Index (BMI) 33.7 33.7 33.7 BMI Classification Obese Obese Obese Vital Signs Temperature (97.8 F-99.1 F) 96.2 F L 97.7 F L 97.8 F Temperature Source Temporal Temporal Temporal Pulse Rate (60-100) 68 74 66 Pulse Location Monitor Monitor Monitor Respiratory Rate (12-18) 22 H 18 18 Respiratory rate source Observation Observation Observation Oxygen Delivery Method Room Air Blood Pressure (90/60-120/80) 120/65 147/74 H 131/65 H Blood Pressure Mean (mm Hg) 83 98 87 Source Monitor Monitor Monitor Position Sitting Blood Pressure Location Right Forearm History Since Last Visit- (Skip if this is Patient's initial visit) Have you changed medications since your No No No last visit? Any new allergies or adverse reactions No No No Had a fall/change in ADL's that may No No No increase risk of falls Signs or symptoms of abuse and/or No No No neglect since last visit Have you been in the hospital since your No No No last visit? Has dressing in place as prescribed Yes Yes Yes Has compression in place as prescribed N/A Yes N/A Has offloadiing in place as prescribed Yes N/A Yes Experienced any changes in pain level or No No No management Left Footwear Total Contact Total Contact Total Contact Cast Cast Cast Right Footwear Regular Shoe Slipper Pain Scale: 0-10 Numeric Is Patient Pain Free? Yes Yes Yes 09/05/21 09/10/21 09/12/21 14:12 08:52 11:10 WC - Today's Visit Information Type of service Follow-up Visit Follow-up Visit (Physician/TRANSIT MAN (Physician/TRANSIT MAN ) ) Arrival Mode Ambulatory Wheelchair Transfer Assistance Other Transfer Assist (Other) stand by Accompanied by Patient Identification Verified (Name & Yes Yes ) Patient Requires Transmission-Based No Precautions Safety Precautions Finger Stick Blood Sugar(mg/dl) (if indicated): Blood Sugar Height and Weight Body Mass Index (BMI) 33.7 33.7 33.7 BMI Classification Obese Obese Obese Vital Signs Temperature (97.8 F-99.1 F) 98.2 F 97.4 F L 98.2 F Temperature Source Temporal Temporal Temporal Pulse Rate (60-100) 71 62 66 Pulse Location Monitor Monitor Monitor Respiratory Rate (12-18) 16 16 Respiratory rate source Observation Observation Oxygen Delivery Method Room Air Room Air Blood Pressure (90/60-120/80) 124/62 H 141/49 H 146/80 H Blood Pressure Mean (mm Hg) 82 79 102 Source Monitor Monitor Monitor Position Sitting Sitting Sitting Blood Pressure Location Left Forearm Left Arm Left Arm History Since Last Visit- (Skip if this is Patient's initial visit) Have you changed medications since your No No last visit? Any new allergies or adverse reactions No No Had a fall/change in ADL's that may No No increase risk of falls Signs or symptoms of abuse and/or No No neglect since last visit Have you been in the hospital since your No No last visit? Has dressing in place as prescribed Yes Yes Has compression in place as prescribed N/A N/A Has offloadiing in place as prescribed Yes Yes Experienced any changes in pain level or No No management Left Footwear Regular Shoe Total Contact Cast Right Footwear Removable Cast Regular Shoe Walker/Walking Boot Pain Scale: 0-10 Numeric Is Patient Pain Free? Yes Yes Yes WC - Nurse 1 - General Ulcer Measurement Start: 08/20/21 10:01 Freq: Status: Active Protocol: Activity Type Activity Date Activity User E-Sign Co-Sign Detail Recorded Client Recorded Date Recorded By Document 08/22/21 09:18 RB [id number] 08/22/21 09:26 RB Document 08/27/21 09:01 KR [id number] 08/27/21 09:09 KR Document 08/29/21 13:06 AK [id number] 08/29/21 13:11 AK Document 08/31/21 14:19 MW [id number] 08/31/21 14:34 MW Document 09/03/21 08:56 DL [id number] 09/03/21 09:32 DL Document 09/05/21 14:12 BMF [id number] 09/05/21 14:27 BMF Document 09/10/21 08:52 KR [id number] 09/10/21 09:00 KR Document 09/12/21 11:10 [facility] [id number] 09/12/21 11:12 BMF 08/22/21 08/27/21 08/29/21 09:18 09:01 13:06 Wound Center Nurse 1 4-left plantar arch -Combined with other wound No -Current Size (cm) - Length 5 5.8 4.2 -Current Size (cm) - Width 4.8 4.2 4.5 -Current Size (cm) - Depth 0.2 0.2 0.3 -Total Square Cm 24.0 24.36 18.90 -Date of Last Picture (Recall this field) -Photo Taken No -Epithelialization -Tunneling No -Undermining/Tunneling No -Circular Undermining No -Exudate Amt Large Large Large -Exudate Type Serosanguineous Serosanguineous Serosanguineous -Wound Margin Thickened & Distinct, Thickened Rolled Under Outline Attached -Granulation Amt Medium (34-66%) Medium (34-66%) Medium (34-66%) -Granulation Quality [place] Red Red -Slough/Fibrin Yes -Necrosis Amt Medium (34-66%) Medium (34-66%) Medium (34-66%) -Necrotic Tissue Type Adherent Slough Adherent Slough Adherent Slough -Structure Exposed N/A Fat Layer N/A Exposed -Texture (Margaret-wound Skin Appearance) Assessed Assessed, Callus,Scarring Scarring -Moisture (Margaret-wound Skin Appearance) Maceration Assessed, Maceration Maceration -Color (Margaret-wound Skin Appearance) Assessed No Abnormality, Hemosiderin Assessed Staining -Temperature (Margaret-wound Skin No Abnormality No Abnormality No Abnormality Appearance) (Pt Warm) (Pt Warm) (Pt Warm) -Tenderness on Palpation (Margaret-wound No No Skin Appearance) -Ulcer Cleansing Wound Cleanser Soap and Water Soap and Water -Foul Odor after Cleansing No Yes No -Anesthetic Used 4% Lidocaine 4% Lidocaine 4% Lidocaine Solution Solution Solution #1 left heel cluster -Combined with other wound -Current Size (cm) - Length 2.7 2.5 2.5 -Current Size (cm) - Width 2.8 2.8 2.5 -Current Size (cm) - Depth 1 0.2 0.2 -Total Square Cm 7.56 7.00 6.25 -Date of Last Picture (Recall this field) -Photo Taken No -Epithelialization -Tunneling No -Undermining/Tunneling No -Circular Undermining No -Classification - Acevedo Grading ( Diabetic Ulcer) -Exudate Amt Large Large Large -Exudate Type Serosanguineous Serosanguineous Serosanguineous -Wound Margin Thickened & Distinct, Distinct, Rolled Under Outline Outline Attached Attached -Granulation Amt Medium (34-66%) Medium (34-66%) Medium (34-66%) -Granulation Quality [place] Red Red -Slough/Fibrin Yes -Necrosis Amt Medium (34-66%) Medium (34-66%) Medium (34-66%) -Necrotic Tissue Type Adherent Slough Adherent Slough Adherent Slough -Structure Exposed N/A Fat Layer N/A Exposed -Texture (Margaret-wound Skin Appearance) Callus Assessed, Callus,Scarring Scarring -Moisture (Margaret-wound Skin Appearance) Maceration Assessed, Maceration Maceration -Color (Margaret-wound Skin Appearance) Assessed No Abnormality, Hemosiderin Assessed Staining -Temperature (Margaret-wound Skin No Abnormality No Abnormality No Abnormality Appearance) (Pt Warm) (Pt Warm) (Pt Warm) -Tenderness on Palpation (Margaret-wound No No No Skin Appearance) -Ulcer Cleansing Wound Cleanser Soap and Water Soap and Water -Foul Odor after Cleansing No Yes No -Anesthetic Used 4% Lidocaine 4% Lidocaine 4% Lidocaine Solution Solution Solution Left Calf (cm) 50.5 Left Ankle (cm) 31 08/31/21 09/03/21 09/05/21 14:19 08:56 14:12 Wound Center Nurse 1 4-left plantar arch -Combined with other wound No No -Current Size (cm) - Length 6.5 4 3.5 -Current Size (cm) - Width 4.2 5 3.8 -Current Size (cm) - Depth 0.3 0.6 0.2 -Total Square Cm 27.30 20 13.30 -Date of Last Picture (Recall this 09/05/21 field) -Photo Taken No No Yes -Epithelialization Small 1-33% -Tunneling No No -Undermining/Tunneling No No -Circular Undermining No No -Exudate Amt Medium Large Large -Exudate Type Serosanguineous Serosanguineous Serosanguineous -Wound Margin Distinct, Distinct, Distinct, Outline Outline Outline Attached Attached Attached -Granulation Amt Medium (34-66%) Large (67-100%) Large (67-100%) -Granulation Quality [place] Red Red -Slough/Fibrin Yes -Necrosis Amt None Present (0 Small (1-33%) %) -Necrotic Tissue Type Adherent Slough -Structure Exposed N/A N/A -Texture (Margaret-wound Skin Appearance) No Abnormality, Callus,Scarring Assessed, Assessed Scarring -Moisture (Margaret-wound Skin Appearance) Assessed, Maceration Assessed, Maceration Maceration -Color (Margaret-wound Skin Appearance) Assessed No Abnormality, Assessed,Palor Hemosiderin Staining -Temperature (Margaret-wound Skin No Abnormality No Abnormality No Abnormality Appearance) (Pt Warm) (Pt Warm) (Pt Warm) -Tenderness on Palpation (Margaret-wound No No No Skin Appearance) -Ulcer Cleansing Soap and Water Soap and Water Soap and Water -Foul Odor after Cleansing No No No -Anesthetic Used 4% Lidocaine 4% Lidocaine Solution Solution #1 left heel cluster -Combined with other wound No -Current Size (cm) - Length 2.3 2.2 2.7 -Current Size (cm) - Width 2.2 2.6 2.5 -Current Size (cm) - Depth 0.4 0.7 0.4 -Total Square Cm 5.06 5.72 6.75 -Date of Last Picture (Recall this 09/05/21 field) -Photo Taken No No Yes -Epithelialization None Present Small 1-33% -Tunneling No No -Undermining/Tunneling No No -Circular Undermining No No -Classification - Acevedo Grading ( Grade 2 Diabetic Ulcer) -Exudate Amt Large Large -Exudate Type Serosanguineous Serosanguineous Serosanguineous -Wound Margin Thickened & Distinct, Thickened Rolled Under Outline Attached -Granulation Amt Large (67-100%) Large (67-100%) Large (67-100%) -Granulation Quality Red Red Red -Slough/Fibrin Yes -Necrosis Amt Medium (34-66%) None Present (0 Small (1-33%) %) -Necrotic Tissue Type Adherent Slough Adherent Slough -Structure Exposed N/A N/A -Texture (Margaret-wound Skin Appearance) Assessed,Callus Callus,Scarring Assessed,Callus ,Scarring -Moisture (Margaret-wound Skin Appearance) Assessed, Maceration Assessed, Maceration Maceration -Color (Margaret-wound Skin Appearance) No Abnormality, Hemosiderin Assessed,Palor Assessed Staining -Temperature (Margaret-wound Skin No Abnormality No Abnormality No Abnormality Appearance) (Pt Warm) (Pt Warm) (Pt Warm) -Tenderness on Palpation (Margaret-wound No No No Skin Appearance) -Ulcer Cleansing Soap and Water Soap and Water Soap and Water -Foul Odor after Cleansing No No No -Anesthetic Used 4% Lidocaine 4% Lidocaine Solution,5% Solution Lidocaine Gel Left Calf (cm) Left Ankle (cm) 09/10/21 09/12/21 08:52 11:10 Wound Center Nurse 1 4-left plantar arch -Combined with other wound No -Current Size (cm) - Length 4.8 1.8 -Current Size (cm) - Width 3.8 0.4 -Current Size (cm) - Depth 0.2 0.1 -Total Square Cm 18.24 0.72 -Date of Last Picture (Recall this field) -Photo Taken No -Epithelialization Small 1-33% -Tunneling No -Undermining/Tunneling No -Circular Undermining No -Exudate Amt Large Medium -Exudate Type Serosanguineous Serosanguineous -Wound Margin Distinct, Distinct, Outline Outline Attached Attached -Granulation Amt Medium (34-66%) Large (67-100%) -Granulation Quality [place] Red -Slough/Fibrin Yes -Necrosis Amt Medium (34-66%) Small (1-33%) -Necrotic Tissue Type Adherent Slough Adherent Slough -Structure Exposed -Texture (Margaret-wound Skin Appearance) Assessed, Assessed Scarring -Moisture (Margaret-wound Skin Appearance) Assessed Assessed, Maceration,Dry/ Scaly -Color (Margaret-wound Skin Appearance) No Abnormality, Assessed,Palor Assessed -Temperature (Margaret-wound Skin No Abnormality No Abnormality Appearance) (Pt Warm) (Pt Warm) -Tenderness on Palpation (Margaret-wound No No Skin Appearance) -Ulcer Cleansing Soap and Water Soap and Water -Foul Odor after Cleansing No No -Anesthetic Used 4% Lidocaine 4% Lidocaine Solution Solution #1 left heel cluster -Combined with other wound No -Current Size (cm) - Length 2.5 2.4 -Current Size (cm) - Width 2.3 2.5 -Current Size (cm) - Depth 0.4 0.4 -Total Square Cm 5.75 6.00 -Date of Last Picture (Recall this field) -Photo Taken No -Epithelialization Small 1-33% -Tunneling No -Undermining/Tunneling No -Circular Undermining -Classification - Acevedo Grading ( Diabetic Ulcer) -Exudate Amt Large Large -Exudate Type Serosanguineous Serosanguineous -Wound Margin Distinct, Distinct, Outline Outline Attached Attached -Granulation Amt Medium (34-66%) Large (67-100%) -Granulation Quality [place] Red -Slough/Fibrin No -Necrosis Amt Medium (34-66%) None Present (0 %) -Necrotic Tissue Type Adherent Slough -Structure Exposed -Texture (Margaret-wound Skin Appearance) Assessed, Assessed,Callus Scarring ,Scarring -Moisture (Margaret-wound Skin Appearance) Assessed, No Abnormality, Maceration Maceration,Dry/ Scaly -Color (Margaret-wound Skin Appearance) No Abnormality, Assessed,Palor Assessed -Temperature (Margaret-wound Skin No Abnormality No Abnormality Appearance) (Pt Warm) (Pt Warm) -Tenderness on Palpation (Margaret-wound No No Skin Appearance) -Ulcer Cleansing Soap and Water Soap and Water -Foul Odor after Cleansing No No -Anesthetic Used 4% Lidocaine 4% Lidocaine Solution Solution Left Calf (cm) Left Ankle (cm) WC - Nurse 2 - General Ulcer CM Notes Start: 08/20/21 10:01 Freq: Status: Active Protocol: Activity Type Activity Date Activity User E-Sign Co-Sign Detail Recorded Client Recorded Date Recorded By Document 08/20/21 11:24 [id number] 08/20/21 11:25 JF Document 08/22/21 09:33 [id number] 08/22/21 09:38 JF Document 08/29/21 13:28 MW [id number] 08/29/21 13:30 MW Edit Result 08/29/21 13:28 MW (1) [id number] 08/30/21 07:25 PL Document 08/31/21 15:04 PL [id number] 08/31/21 15:32 PL Document 09/05/21 14:34 JF [id number] 09/05/21 14:38 JF Document 09/11/21 14:28 PL [id number] 09/11/21 14:29 PL Edit Time 09/10/21 14:28 PL 09/11/21 14:28=>09/10/21 14:28 [id number] 09/11/21 14:29 PL Document 09/12/21 11:25 JF [id number] 09/12/21 11:30 JF (1) #1 left heel cluster - Type of Offloading Total Contact Cast => (TCC) - Left ($) => 0408/22/21 08/29/21 11:24 09:33 13:28 Wound Center Nurse 2 4-left plantar arch -Time 09:34 13:28 -Correct Patient No Yes Yes -Correct Side, Site, Position No Yes Yes -Correct Procedure No Yes Yes -Procedure Performed No Yes No -Type of Procedure Debridement -Clinical Debridement Subcutaneous -Tissue Removed Subcutaneous -Post Debridement (cm) - Length 5 -Post Debridement (cm) - Width 4.8 -Post Debridement (cm) - Depth 0.2 -Total Square (Post) (cm) 24.0 -Area of Debridement (cm) - Length 5.0 -Area of Debridement (cm) - Width 4.8 -Total Square (Area) (cm) 24.00 -Tunneling No -Undermining/Tunneling No -Circular Undermining No -Wound/Ulcer Outcome Not Healed Not Healed Not Healed -Ulcer Cleansing Rinsed/ Rinsed/ Irrigated with Irrigated with Saline Saline -Foul Odor after Cleansing No -Bioengineered Tissue No -Bleeding Controlled with Pressure -Treatment Response Procedure Tolerated Well -Offloading Yes -Type of Offloading Total Contact Total Contact Cast (TCC) - Cast (TCC) - Left ($) Left ($) -Debridement - Subq, 1st 20sq cm Yes -Debridement, SubQ, ea addt'l 20sq cm 1 or part thereof #1 left heel cluster -Time 09:36 13:29 -Correct Patient No Yes Yes -Correct Side, Site, Position No Yes Yes -Correct Procedure No Yes Yes -Procedure Performed No Yes No -Type of Procedure Debridement -Clinical Debridement Subcutaneous -Tissue Removed Subcutaneous -Post Debridement (cm) - Length 2.8 -Post Debridement (cm) - Width 2.8 -Post Debridement (cm) - Depth 1.0 -Total Square (Post) (cm) 7.84 -Area of Debridement (cm) - Length 2.8 -Area of Debridement (cm) - Width 2.8 -Total Square (Area) (cm) 7.84 -Tunneling No No -Undermining/Tunneling No No -Circular Undermining No No -Wound/Ulcer Outcome Not Healed Not Healed Not Healed -Ulcer Cleansing Wound Cleanser -Foul Odor after Cleansing No -Bioengineered Tissue No -Bleeding Controlled with Pressure -Treatment Response Procedure Tolerated Well -Offloading Yes No -Type of Offloading Total Contact Cast (TCC) - Left ($) -Debridement - Subq, 1st 20sq cm No Pain Scale: 0-10 Numeric Is Patient Pain Free? Yes Yes Yes 08/31/21 09/05/21 09/10/21 15:04 14:34 14:28 Wound Center Nurse 2 4-left plantar arch -Time 14:45 14:34 -Correct Patient Yes Yes -Correct Side, Site, Position Yes Yes -Correct Procedure Yes Yes -Procedure Performed Yes Yes -Type of Procedure Debridement Debridement -Clinical Debridement Subcutaneous Subcutaneous -Tissue Removed Subcutaneous Subcutaneous -Post Debridement (cm) - Length 6.5 3.5 -Post Debridement (cm) - Width 4.2 3.9 -Post Debridement (cm) - Depth 0.3 0.2 -Total Square (Post) (cm) 27.30 13.65 -Area of Debridement (cm) - Length 6.5 3.5 -Area of Debridement (cm) - Width 4.2 3.9 -Total Square (Area) (cm) 27.30 13.65 -Tunneling No No -Undermining/Tunneling No No -Circular Undermining No No -Wound/Ulcer Outcome Not Healed Not Healed -Ulcer Cleansing Rinsed/ Rinsed/ Irrigated with Irrigated with Saline Saline -Foul Odor after Cleansing No No -Bioengineered Tissue No No -Bleeding Controlled with Pressure Pressure -Treatment Response Procedure Procedure Tolerated Well Tolerated Well -Offloading No -Type of Offloading Total Contact Total Contact Cast (TCC) - Cast (TCC) - Left ($) Left ($) -Debridement - Subq, 1st 20sq cm Yes No -Debridement, SubQ, ea addt'l 20sq cm 1 or part thereof #1 left heel cluster -Time 14:45 14:34 -Correct Patient Yes Yes -Correct Side, Site, Position Yes Yes -Correct Procedure Yes Yes -Procedure Performed Yes Yes -Type of Procedure Debridement Debridement -Clinical Debridement Subcutaneous Subcutaneous -Tissue Removed Subcutaneous Subcutaneous -Post Debridement (cm) - Length 2.3 2.8 -Post Debridement (cm) - Width 2.4 2.5 -Post Debridement (cm) - Depth 0.4 0.4 -Total Square (Post) (cm) 5.52 7.00 -Area of Debridement (cm) - Length 2.3 2.8 -Area of Debridement (cm) - Width 2.4 2.5 -Total Square (Area) (cm) 5.52 7.00 -Tunneling No No -Undermining/Tunneling No No -Circular Undermining No No -Wound/Ulcer Outcome Not Healed Not Healed -Ulcer Cleansing Rinsed/ Rinsed/ Irrigated with Irrigated with Saline Saline -Foul Odor after Cleansing No No -Bioengineered Tissue No No -Bleeding Controlled with Pressure Pressure -Treatment Response Procedure Procedure Tolerated Well Tolerated Well -Offloading Yes -Type of Offloading Total Contact Cast (TCC) - Left ($) -Debridement - Subq, 1st 20sq cm No Yes Pain Scale: 0-10 Numeric Is Patient Pain Free? Yes Yes Yes 09/12/21 11:25 Wound Center Nurse 2 4-left plantar arch -Time 11:29 -Correct Patient Yes -Correct Side, Site, Position Yes -Correct Procedure Yes -Procedure Performed Yes -Type of Procedure Debridement -Clinical Debridement Subcutaneous -Tissue Removed Subcutaneous -Post Debridement (cm) - Length 1.8 -Post Debridement (cm) - Width 3.5 -Post Debridement (cm) - Depth 0.1 -Total Square (Post) (cm) 6.30 -Area of Debridement (cm) - Length 1.8 -Area of Debridement (cm) - Width 3.5 -Total Square (Area) (cm) 6.30 -Tunneling No -Undermining/Tunneling No -Circular Undermining -Wound/Ulcer Outcome Not Healed -Ulcer Cleansing Rinsed/ Irrigated with Saline -Foul Odor after Cleansing No -Bioengineered Tissue No -Bleeding Controlled with Pressure -Treatment Response Procedure Tolerated Well -Offloading Yes -Type of Offloading Total Contact Cast (TCC) - Left ($) -Debridement - Subq, 1st 20sq cm Yes -Debridement, SubQ, ea addt'l 20sq cm or part thereof #1 left heel cluster -Time 11:29 -Correct Patient Yes -Correct Side, Site, Position Yes -Correct Procedure Yes -Procedure Performed Yes -Type of Procedure Debridement -Clinical Debridement Subcutaneous -Tissue Removed Dermis, Subcutaneous -Post Debridement (cm) - Length 2.5 -Post Debridement (cm) - Width 2.5 -Post Debridement (cm) - Depth 0.4 -Total Square (Post) (cm) 6.25 -Area of Debridement (cm) - Length 2.5 -Area of Debridement (cm) - Width 2.5 -Total Square (Area) (cm) 6.25 -Tunneling -Undermining/Tunneling No -Circular Undermining No -Wound/Ulcer Outcome Not Healed -Ulcer Cleansing Rinsed/ Irrigated with Saline -Foul Odor after Cleansing No -Bioengineered Tissue No -Bleeding Controlled with Pressure -Treatment Response Procedure Tolerated Well -Offloading No -Type of Offloading -Debridement - Subq, 1st 20sq cm No Pain Scale: 0-10 Numeric Is Patient Pain Free? Yes WC - Nurse 3 - General Ulcer D/C NN Start: 08/20/21 10:01 Freq: Status: Active Protocol: Activity Type Activity Date Activity User E-Sign Co-Sign Detail Recorded Client Recorded Date Recorded By Document 08/20/21 10:17 KR [id number] 08/20/21 10:18 KR Document 08/22/21 09:42 [facility] [id number] 08/22/21 09:43 BMF Document 08/27/21 09:45 AK [id number] 08/27/21 09:47 AK Document 08/29/21 13:30 MW [id number] 08/29/21 13:32 MW Document 08/31/21 15:01 AK [id number] 08/31/21 15:03 AK Document 09/03/21 08:56 DL [id number] 09/03/21 09:32 DL Document 09/10/21 09:25 DL [id number] 09/10/21 09:29 DL Document 09/12/21 11:42 [facility] [id number] 09/12/21 11:44 BMF 08/20/21 08/22/21 08/27/21 10:17 09:42 09:45 Wound Care Nurse 3 4-left plantar arch -Ulcer Cleansing Rinsed/ Rinsed/ Rinsed/ Irrigated with Irrigated with Irrigated with Saline Saline Saline -Foul Odor after Cleansing No No -Negative Pressure Wound Therapy N/A -Primary Dressing Applied Optilok 6.5x10, Optilok 6.5x10, Aquacel AG 4x4, Silvercel Silvercel Optilok 6.5x10 -Other Dressing Tcc size 4 applied -Primary Dressing Covered/Secured with Secured with Secured with Tape Tape -Other Covering DRSG PER RB RN; TCC UNDERCAST APPLIED -Aquacel AG 4x4 1 -Optilok 6.5x10 1 1 1 -Silvercel 1 1 #1 left heel cluster -Ulcer Cleansing Rinsed/ Irrigated with Saline -Foul Odor after Cleansing No -Negative Pressure Wound Therapy -Primary Dressing Applied Optilok 6.5x10, Silvercel -Other Dressing -Primary Dressing Covered/Secured with Secured with Tape -Other Covering DRSG AND TCC UNDERCAST APPLIED PER RB RN -Optilok 6.5x10 0 -Silvercel 0 Left -Lotion applied to leg before compression wrap -Other TCC under casting Treatment Response Procedure Tolerated Well Vital Signs Temperature (97.8 F-99.1 F) Temperature Source Pulse Rate (60-100) Pulse Location Respiratory Rate (12-18) Respiratory rate source Blood Pressure (90/60-120/80) Blood Pressure Mean (mm Hg) Source Pain Scale: 0-10 Numeric Is Patient Pain Free? Yes Yes Yes Teaching: Wound Center Dressing Your Wound -Person Taught -Teaching Method -Response to teaching WC - Visit Discharge Discharge Condition Stable Stable Stable Ambulatory Status Wheelchair Wheelchair Wheelchair Transportation Private Auto Private Auto Private Auto Accompanied by Medication Reconcilliation completed & Yes provided to patient/care provider Clinical Summary of Care Provided Yes Facility Type Orders Sent 08/29/21 08/31/21 09/03/21 13:30 15:01 08:56 Wound Care Nurse 3 4-left plantar arch -Ulcer Cleansing Soap and Water Soap and Water -Foul Odor after Cleansing No No -Negative Pressure Wound Therapy N/A -Primary Dressing Applied Optilok 6.5x10 Optilok 6.5x10 -Other Dressing Dakins wet to dakins size dakins/ dry 4 TCC superabsorber -Primary Dressing Covered/Secured with Dry Gauze, Secured with Dry Gauze & Secured with Tape Roll Gauze Tape -Other Covering TCC -Aquacel AG 4x4 -Optilok 6.5x10 1 2 -Silvercel #1 left heel cluster -Ulcer Cleansing Rinsed/ Soap and Water Soap and Water Irrigated with Saline -Foul Odor after Cleansing No No No -Negative Pressure Wound Therapy N/A N/A -Primary Dressing Applied Optilok 6.5x10 -Other Dressing dakins wet to TCC dakins/ dry, optilock superabsorber -Primary Dressing Covered/Secured with Dry Gauze, Dry Gauze & Secured with Roll Gauze Tape -Other Covering TCC betadine to macerated area per casemanager -Optilok 6.5x10 1 -Silvercel Left -Lotion applied to leg before No compression wrap -Other TCC Treatment Response Procedure Procedure Tolerated Well Tolerated Well Vital Signs Temperature (97.8 F-99.1 F) 97.8 F Temperature Source Temporal Pulse Rate (60-100) 66 Pulse Location Monitor Respiratory Rate (12-18) 18 Respiratory rate source Observation Blood Pressure (90/60-120/80) 131/65 H Blood Pressure Mean (mm Hg) 87 Source Monitor Pain Scale: 0-10 Numeric Is Patient Pain Free? Yes Yes Yes Teaching: Wound Center Dressing Your Wound -Person Taught Patient -Teaching Method Discussion -Response to teaching Verbalize understanding WC - Visit Discharge Discharge Condition Stable Stable Stable Ambulatory Status Ambulatory, Ambulatory Stretcher Walker Transportation Private Auto Private Auto Private Auto Accompanied by self Medication Reconcilliation completed & No Yes provided to patient/care provider Clinical Summary of Care Provided Yes Yes Facility Type Orders Sent 09/10/21 09/12/21 09:25 11:42 Wound Care Nurse 3 4-left plantar arch -Ulcer Cleansing Soap and Water Rinsed/ Irrigated with Saline -Foul Odor after Cleansing No No -Negative Pressure Wound Therapy -Primary Dressing Applied Silvercel Optilok 6.5x10, Silvercel -Other Dressing betadine tomacerated area/ suberabsorber -Primary Dressing Covered/Secured with -Other Covering TCC casting tcc undercast -Aquacel AG 4x4 -Optilok 6.5x10 1 -Silvercel 1 1 #1 left heel cluster -Ulcer Cleansing Soap and Water Rinsed/ Irrigated with Saline -Foul Odor after Cleansing No No -Negative Pressure Wound Therapy -Primary Dressing Applied Optilok 6.5x10, Silvercel -Other Dressing silvercel/ superabsorber/ betadine to macerated area -Primary Dressing Covered/Secured with -Other Covering TCC casting tcc undercast -Optilok 6.5x10 0 -Silvercel 0 Left -Lotion applied to leg before compression wrap -Other Treatment Response Procedure Procedure Tolerated Well Tolerated Well Vital Signs Temperature (97.8 F-99.1 F) Temperature Source Pulse Rate (60-100) Pulse Location Respiratory Rate (12-18) Respiratory rate source Blood Pressure (90/60-120/80) Blood Pressure Mean (mm Hg) Source Pain Scale: 0-10 Numeric Is Patient Pain Free? Yes Yes Teaching: Wound Center Dressing Your Wound -Person Taught -Teaching Method -Response to teaching WC - Visit Discharge Discharge Condition Stable Stable Ambulatory Status Wheelchair Wheelchair Transportation Private Auto Accompanied by Medication Reconcilliation completed & provided to patient/care provider Clinical Summary of Care Provided Facility Type Home Health Orders Sent Yes Assessment/Plan Assessment/Plan (1) Non-pressure chronic ulcer of left heel and midfoot with fat layer exposed: CODE(S): L97.422 - Non-pressure chronic ulcer of left heel and midfoot with fat layer exposed (2) Ulcer of left foot with necrosis of muscle: CODE(S): L97.523 - Non-pressure chronic ulcer of other part of left foot with necrosis of muscle (3) Maceration of skin: CODE(S): L98.8 - Other specified disorders of the skin and subcutaneous tissue (4) Localized edema: CODE(S): R60.0 - Localized edema (5) Diabetes mellitus: CODE(S): E11.9 - Type 2 diabetes mellitus without complications (6) Type 2 diabetes mellitus with diabetic polyneuropathy: CODE(S): E11.42 - Type 2 diabetes mellitus with diabetic polyneuropathy QUALIFIERS: Diabetes mellitus correction insulin use: with missile pad mechanic use Qualified Code(s): E11.42 - Type 2 diabetes mellitus with diabetic polyneuropathy; Z79.4 - FDC (current) use of insulin (7) Diabetic foot ulcer: CODE(S): E11.621 - Type 2 diabetes mellitus with foot ulcer; L97.509 - Non-pressure chronic ulcer of other part of unspecified foot with unspecified severity QUALIFIERS: Diabetic foot ulcer location: heel Diabetes mellitus type: type 2 Laterality: left Non-pressure ulcer stage: with fat layer exposed Qualified Code(s): E11.621 - Type 2 diabetes mellitus with foot ulcer; L97.422 - Non-pressure chronic ulcer of left heel and midfoot with fat layer exposed (8) Tobacco abuse: CODE(S): Z72.0 - Tobacco use PLAN: Patient seen and examined. I reviewed and discussed his case. Debridement was performed as noted in the clinical nursing panel. Dressing recommendation: silvercel was applied to wound bed with peripheral Betadine wet-to-dry gauze to the maceration sites with additional superabsorption secondary dressing prior to total contact cast application today. Patient wound is noted to have improved with healthier appearance and there is no malodor. There are no local signs infection noted today. He was seen by infectious disease during his last hospital admission and he had surgery on 05-29-2021. His surgical cultures had MRSA, Enterococcus, klebs, Proteus and it was down to deep tissue. He completed a 2-week course of IV vancomycin and Unasyn and then followed up with 4 weeks of oral doxycycline and Augmentin with a stop date of 07-10-21. Offloading: He is amendable to have a total contact cast applied today and verbal consent was obtained. This was applied according to standard protocol in a neutral position a well-padded manner. He tolerated this well. To keep clean, dry, and intact until follow-up visit on Friday once the cast will be removed. Patient relates he had follow-up appointment with his primary care provider, Priyanka Brown, and relates that she did not change any medication and stated he was doing okay. 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 Mykel Barraza. He was able to follow-up and recommendations were updated. Edema management: Medical management per primary care. To reduce salt in diet. Total contact cast will also aide in edema reduction. Arterial studies were reviewed. Showing likely adequate perfusion for healing. Right LAI is 0.99 and left 1.18. Right toe brachial index 0.76 and left 0.71. Referral to Dr. Campos for potential venous and arterial intervention was provided today. He went for consultationon 04-11-21. Will recheck duplex to make sure normal posterior tibial flow into the area of the wound. normal prior LAI noted. Host factors: His multiple comorbidities are noted including diabetes and smoking history. Also recommend improvement in nutritional status which involves taking in adequate protein and also focusing on eating 5-10 whole foods daily. All questions answered. He understands below-knee amputation is an option as well if he cannot keep pressure off the site, if pain becomes intolerable, and if he no longer is able to proceed with a comprehensive wound healing plan. He defers at this time. Patient to follow up in 1 week or call sooner if status worsening or if questions. I answered all of his questions. This note was generated with [employer] software. It may contain incorrect words, spelling, and punctuation that were not noted in checking the note before signing.
== END 2021-09-15 23:59 | disposition home or self-care (01) ==
LOC: WC 11:00
PROVIDERS: Referring Provider Podiatrist Foot & Ankle Surgery; Visit Provider Podiatrist
DX: E11.621 Type 2 diabetes mellitus with foot ulcer (principal); L97.422 Non-pressure chronic ulcer of left heel and midfoot with fat layer exposed; L97.522 Non-pressure chronic ulcer of other part of left foot with fat layer exposed; E11.42 Type 2 diabetes mellitus with diabetic polyneuropathy; Z79.4 Long term (current) use of insulin; R60.0 Localized edema; H91.90 Unspecified hearing loss, unspecified ear; G60.9 Hereditary and idiopathic neuropathy, unspecified; Z72.0 Tobacco use; B35.1 Tinea unguium; E66.09 Other obesity due to excess calories; Z68.33 Body mass index [BMI] 33.0-33.9, adult; R26.2 Difficulty in walking, not elsewhere classified
CPT/HCPCS: 11042; 11045; 29445; 99212; 99213; G0463

== ENCOUNTER 2021-10-11 08:15 | Outpatient (RCR) | payer MEDICARE, BC, SELFPAY ==
[2021-09-16 00:28] VITALS: BP 146/80; PULSE 66; RESP 16; TEMP 36.8; BMI 33.7
[2021-09-17 10:08] VITALS: BP 108/49; PULSE 60; TEMP 36.4; BMI 33.7
[2021-09-19 09:01] VITALS: BP 132/66; PULSE 65; RESP 18; TEMP 36.5; BMI 33.7
--- NOTE | 2021-09-19 09:42 | PCM.WC.PN ---
History of Present Illness Date of Service: 09/19/21 Chief Complaint: left heel and arch ulcers History of Wound: Patient presents for chronic non healing wound to left plantar foot (heel and arch). A limb and life-threatening infection which required emergent surgical intervention on 05-29-2021. He then subsequently resided in the transitional care unit for wound care which he completed a course of IV antibiotics. He changed his dressing as advised and there is reduced moisture. He denies fever, chill, nausea, vomiting, pain, odor, redness. He is keeping weight off of his foot he reports. He reports he seems to do better when he takes a break from total contact cast of the couple days a week to make sure the ulcer site is cleaned up very well. Wound care - Aquacel-Ag to the the left midfoot and left heal ulcers. He did well with a cast break this past friday and friday. Progress of Wound: improving Objective Data Objective Data Vital Signs: Vital Signs Temp Pulse Resp BP 97.7 F L 65 18 132/66 H 09/19/21 09:01 09/19/21 09:01 09/19/21 09:01 09/19/21 09:01 Body Mass Index (BMI) 33.7 Physical Exam Narrative Const alert and no apparent distress General Appearance: cooperative and comfortable Extremity There is diffuse left foot/ankle and leg swelling. Left foot s/p debridement to arch and heel, tissues are healthy and viable, granular. no longer visualized fascia and muscle layer. There is no streaking or odor, compartments remain soft to palpate, there is no fluctuance or bogginess on palpation, no drainage, no visible abscess, no cellulitis, no blistering present. At the plantar arch, there is devitalized exposed fascia?tendon which is no longer directly visualized. Hematogenous drainage only upon debridement. Periwound moisture and maceration is decreased. reduced ulcer depth is continually noted. General Extremity: Negative for clubbing or cyanosis to digits. Vasc normal capillary refill, no acute ischemic skin changes noted, normal temperature bilateral. Skin Skin Narrative: Wound Narrative: Neuro Neuro Narrative: Debridement Note Debridement Note Wound debrided: left arch, left heel Wound Grade/Stage: 3,3 Type of Debridement: Excisional debridement Anesthesia Used: 4% Lidocaine Solution Depth: in the subcutaneous layer Percentage of wound debrided: 100 Instrument Used: #15 blade Tissue Removed: fibrous, devitalized subcutaneous, biofilm, slough Severity: Fat Layer Exposed Amount of bleeding with debridement: Mild Bleeding Controlled with: Pressure Patient tolerated procedure: Patient tolerated procedure well Post-Debridement Measurements and Additional Note: Post-Debridement Measurements/Treatment - Nurse 1 - General Ulcer Assessment Start: 09/17/21 10:08 Freq: Status: Active Protocol: [email or web address].LOWEXT Activity Type Activity Date Activity User E-Sign Co-Sign Detail Recorded Client Recorded Date Recorded By Document 09/17/21 10:08 KR [id number] 09/17/21 10:15 KR Document 09/19/21 09:01 DL [id number] 09/19/21 09:12 DL 09/17/21 09/19/21 10:08 09:01 - Today's Visit Information Type of service Follow-up Visit Follow-up Visit (Physician/DEBURRER (Physician/DEBURRER ) ) Arrival Mode Wheelchair Wheelchair Transfer Assistance Manual Transfer Assist (Other) x2 Patient Identification Verified (Name & Yes Yes ) Patient Requires Transmission-Based No Precautions Height and Weight Body Mass Index (BMI) 33.7 33.7 BMI Classification Obese Obese Vital Signs Temperature (97.8 F-99.1 F) 97.5 F L 97.7 F L Temperature Source Temporal Temporal Pulse Rate (60-100) 60 65 Pulse Location Monitor Monitor Respiratory Rate (12-18) 18 Respiratory rate source Observation Blood Pressure (90/60-120/80) 108/49 L 132/66 H Blood Pressure Mean (mm Hg) 68 88 Source Monitor Monitor Position Sitting Sitting Blood Pressure Location Right Arm Right Forearm History Since Last Visit- (Skip if this is Patient's initial visit) Have you changed medications since your No No last visit? Any new allergies or adverse reactions No No Had a fall/change in ADL's that may No No increase risk of falls Signs or symptoms of abuse and/or No No neglect since last visit Have you been in the hospital since your No No last visit? Has dressing in place as prescribed Yes Yes Has compression in place as prescribed N/A No Has offloadiing in place as prescribed Yes Yes Experienced any changes in pain level or No No management Left Footwear Total Contact Regular Shoe Cast Right Footwear Regular Shoe Surgical Shoe with pressure relief insole Pain Scale: 0-10 Numeric Is Patient Pain Free? Yes Yes WC - Nurse 1 - General Ulcer Measurement Start: 09/17/21 10:08 Freq: Status: Active Protocol: Activity Type Activity Date Activity User E-Sign Co-Sign Detail Recorded Client Recorded Date Recorded By Document 09/17/21 10:08 KR [id number] 09/17/21 10:15 KR Document 09/19/21 09:01 DL [id number] 09/19/21 09:12 DL 09/17/21 09/19/21 10:08 09:01 Wound Center Nurse 1 4-left plantar arch -Combined with other wound No -Current Size (cm) - Length 6.8 2.3 -Current Size (cm) - Width 3.6 3.3 -Current Size (cm) - Depth 0.2 0.1 -Total Square Cm 24.48 7.59 -Tunneling No -Undermining/Tunneling No -Circular Undermining No -Exudate Amt Large Large -Exudate Type Serosanguineous Serosanguineous -Wound Margin Distinct, Distinct, Outline Outline Attached Attached -Granulation Amt Large (67-100%) Medium (34-66%) -Granulation Quality Pentwater Pentwater -Necrosis Amt Large (67-100%) Medium (34-66%) -Necrotic Tissue Type Adherent Slough Adherent Slough -Structure Exposed N/A -Texture (Margaret-wound Skin Appearance) Assessed,Callus Assessed,Callus ,Scarring -Moisture (Margaret-wound Skin Appearance) Assessed, Assessed, Maceration Maceration -Color (Margaret-wound Skin Appearance) No Abnormality, Assessed Assessed -Temperature (Margaret-wound Skin No Abnormality No Abnormality Appearance) (Pt Warm) (Pt Warm) -Tenderness on Palpation (Margaret-wound No No Skin Appearance) -Ulcer Cleansing Soap and Water Wound Cleanser -Foul Odor after Cleansing No No -Anesthetic Used 4% Lidocaine 4% Lidocaine Solution,5% Solution Lidocaine Gel #1 left heel cluster -Combined with other wound No -Current Size (cm) - Length 2.3 2.5 -Current Size (cm) - Width 2.4 2.2 -Current Size (cm) - Depth 0.5 0.9 -Total Square Cm 5.52 5.50 -Tunneling No -Undermining/Tunneling No -Circular Undermining No -Exudate Amt Large Large -Exudate Type Serosanguineous Serosanguineous -Wound Margin Distinct, Distinct, Outline Outline Attached Attached -Granulation Amt Large (67-100%) Medium (34-66%) -Granulation Quality Pentwater Pentwater -Slough/Fibrin Yes -Necrosis Amt Large (67-100%) Small (1-33%) -Necrotic Tissue Type Adherent Slough -Structure Exposed N/A -Texture (Margaret-wound Skin Appearance) Assessed,Callus Callus ,Scarring -Moisture (Margaret-wound Skin Appearance) Assessed, Assessed, Maceration Maceration -Color (Margaret-wound Skin Appearance) No Abnormality, Assessed Assessed -Temperature (Margaret-wound Skin No Abnormality No Abnormality Appearance) (Pt Warm) (Pt Warm) -Tenderness on Palpation (Margaret-wound No No Skin Appearance) -Ulcer Cleansing Rinsed/ Wound Cleanser Irrigated with Saline -Foul Odor after Cleansing No No -Anesthetic Used 4% Lidocaine 4% Lidocaine Solution,5% Solution Lidocaine Gel Left Calf (cm) 49 Left Ankle (cm) 28.8 WC - Nurse 2 - General Ulcer CM Notes Start: 09/17/21 10:08 Freq: Status: Active Protocol: Activity Type Activity Date Activity User E-Sign Co-Sign Detail Recorded Client Recorded Date Recorded By Document 09/19/21 09:20 DANIEL [id number] 09/19/21 09:27 DANIEL 09/19/21 09:20 Wound Center Nurse 2 4-left plantar arch -Time 09:21 -Correct Patient Yes -Correct Side, Site, Position Yes -Correct Procedure Yes -Procedure Performed Yes -Type of Procedure Debridement -Clinical Debridement Subcutaneous -Tissue Removed Subcutaneous -Post Debridement (cm) - Length 3.3 -Post Debridement (cm) - Width 3.5 -Post Debridement (cm) - Depth 0.3 -Total Square (Post) (cm) 11.55 -Area of Debridement (cm) - Length 3.3 -Area of Debridement (cm) - Width 3.5 -Total Square (Area) (cm) 11.55 -Tunneling No -Undermining/Tunneling No -Circular Undermining No -Wound/Ulcer Outcome Not Healed -Ulcer Cleansing Rinsed/ Irrigated with Saline -Foul Odor after Cleansing No -Bioengineered Tissue No -Bleeding Controlled with Pressure -Treatment Response Procedure Tolerated Well -Offloading No -Debridement - Subq, 1st 20sq cm Yes #1 left heel cluster -Time 09:25 -Correct Patient Yes -Correct Side, Site, Position Yes -Correct Procedure Yes -Procedure Performed Yes -Type of Procedure Debridement -Clinical Debridement Subcutaneous -Tissue Removed Subcutaneous -Post Debridement (cm) - Length 2.4 -Post Debridement (cm) - Width 2.5 -Post Debridement (cm) - Depth 0.5 -Total Square (Post) (cm) 6.00 -Area of Debridement (cm) - Length 2.4 -Area of Debridement (cm) - Width 2.5 -Total Square (Area) (cm) 6.00 -Tunneling No -Undermining/Tunneling No -Circular Undermining No -Wound/Ulcer Outcome Not Healed -Ulcer Cleansing Rinsed/ Irrigated with Saline -Foul Odor after Cleansing No -Bioengineered Tissue No -Bleeding Controlled with Pressure -Treatment Response Procedure Tolerated Well -Offloading Yes -Type of Offloading Total Contact Cast (TCC) - Left ($) -Debridement - Subq, 1st 20sq cm Yes Pain Scale: 0-10 Numeric Is Patient Pain Free? Yes - Nurse 3 - General Ulcer D/C NN Start: 09/17/21 10:08 Freq: Status: Active Protocol: Activity Type Activity Date Activity User E-Sign Co-Sign Detail Recorded Client Recorded Date Recorded By Document 09/17/21 13:06 DANIEL [id number] 09/17/21 13:08 Edit Result 09/17/21 13:06 JF (1) [id number] 09/17/21 13:08 JF Document 09/19/21 09:31 RB [id number] 09/19/21 09:34 RB (1) Margaret-Wound Care => Barrier Other/Comment => betadine to => periulcer to both => ulcers 09/17/21 09/19/21 13:06 09:31 Wound Care Nurse 3 4-left plantar arch -Ulcer Cleansing Rinsed/ Irrigated with Saline -Foul Odor after Cleansing No -Primary Dressing Applied Optilok 6.5x10, Fibracol Plus Silvercel 4x4,Optilok 6. 5x10 -Other Dressing betadine to peiulcer and primary layer TCC applied -Primary Dressing Covered/Secured with Dry Gauze & Roll Gauze, Secured with Tape -Fibracol Plus 4x4 1 -Optilok 6.5x10 1 1 -Silvercel 0 #1 left heel cluster -Ulcer Cleansing Rinsed/ Irrigated with Saline -Primary Dressing Applied Optilok 6.5x10, Optilok 6.5x10 Silvercel -Other Dressing fibracol pluus to ulcer an betadine to peiulcer -Primary Dressing Covered/Secured with Dry Gauze & Roll Gauze, Secured with Tape -Optilok 6.5x10 1 1 -Silvercel 1 Margaret-Wound Care Barrier Other/Comment betadine to periulcer to both ulcers Left -Compression Wrap Kevin Wrap Treatment Response Procedure Tolerated Well Pain Scale: 0-10 Numeric Is Patient Pain Free? Yes No LLE -Description Aching -Intensity 5 -Pain Behavior Withdrawal from Touch -Pain Aggravating Factors Exercise/ Activity, Standing -Alleviating Factors/Interventions Medication -Effectiveness of Alleviating Factor/ Moderately Intervention effective WC - Visit Discharge Discharge Condition Stable Stable Ambulatory Status Ambulatory, Wheelchair Wheelchair Transportation Private Auto Private Auto Medication Reconcilliation completed & Yes No provided to patient/care provider Clinical Summary of Care Provided Yes Yes Assessment/Plan Assessment/Plan (1) Non-pressure chronic ulcer of left heel and midfoot with fat layer exposed: CODE(S): L97.422 - Non-pressure chronic ulcer of left heel and midfoot with fat layer exposed (2) Ulcer of left foot with necrosis of muscle: CODE(S): L97.523 - Non-pressure chronic ulcer of other part of left foot with necrosis of muscle (3) Maceration of skin: CODE(S): L98.8 - Other specified disorders of the skin and subcutaneous tissue (4) Localized edema: CODE(S): R60.0 - Localized edema (5) Diabetes mellitus: CODE(S): E11.9 - Type 2 diabetes mellitus without complications (6) Type 2 diabetes mellitus with diabetic polyneuropathy: CODE(S): E11.42 - Type 2 diabetes mellitus with diabetic polyneuropathy QUALIFIERS: Diabetes mellitus dedicated intermodal truck driver insulin use: with dedicated intermodal truck driver use Qualified Code(s): E11.42 - Type 2 diabetes mellitus with diabetic polyneuropathy; Z79.4 - residential (current) use of insulin (7) Diabetic foot ulcer: CODE(S): E11.621 - Type 2 diabetes mellitus with foot ulcer; L97.509 - Non-pressure chronic ulcer of other part of unspecified foot with unspecified severity QUALIFIERS: Diabetic foot ulcer location: heel Diabetes mellitus type: type 2 Laterality: left Non-pressure ulcer stage: with fat layer exposed Qualified Code(s): E11.621 - Type 2 diabetes mellitus with foot ulcer; L97.422 - Non-pressure chronic ulcer of left heel and midfoot with fat layer exposed (8) Tobacco abuse: CODE(S): Z72.0 - Tobacco use PLAN: Patient seen and examined. I reviewed and discussed his case. Debridement was performed as noted in the clinical nursing panel. Dressing recommendation: silvercel was applied to wound bed with peripheral Betadine wet-to-dry gauze to the maceration sites with additional superabsorption secondary dressing prior to total contact cast application today. Will return Friday for removal. Patient wound is noted to have improved with healthier appearance and there is no malodor. There are no local signs infection noted today. He was seen by infectious disease during his last hospital admission and he had surgery on 05-29-2021. His surgical cultures had MRSA, Enterococcus, klebs, Proteus and it was down to deep tissue. He completed a 2-week course of IV vancomycin and Unasyn and then followed up with 4 weeks of oral doxycycline and Augmentin with a stop date of 07-10-21. Offloading: He is amendable to have a total contact cast applied today and verbal consent was obtained. This was applied according to standard protocol in a neutral position a well-padded manner. He tolerated this well. To keep clean, dry, and intact until follow-up visit on Friday once the cast will be removed. Patient relates he had follow-up appointment with his primary care provider, Priyanka Brown, and relates that she did not change any medication and stated he was doing okay. PCP is leaving the diabetes management up to his coroner/medical examiner, Dr. Mykel Barraza. He was able to follow-up and recommendations were updated. Edema management: Medical management per primary care. To reduce salt in diet. Total contact cast will also aide in edema reduction. Arterial studies were reviewed. Showing likely adequate perfusion for healing. Right LAI is 0.99 and left 1.18. Right toe brachial index 0.76 and left 0.71. Referral to Dr. Campos for potential venous and arterial intervention was provided today. He went for consultationon 04-11-21. Will recheck duplex to make sure normal posterior tibial flow into the area of the wound. normal prior LAI noted. Host factors: His multiple comorbidities are noted including diabetes and smoking history. Also recommend improvement in nutritional status which involves taking in adequate protein and also focusing on eating 5-10 whole foods daily. All questions answered. He understands below-knee amputation is an option as well if he cannot keep pressure off the site, if pain becomes intolerable, and if he no longer is able to proceed with a comprehensive wound healing plan. He defers at this time. Patient to follow up in 1 week or call sooner if status worsening or if questions. I answered all of his questions. This note was generated with [employer] dictation software. It may contain incorrect words, spelling, and punctuation that were not noted in checking the note before signing.
[2021-09-24 08:55] VITALS: BP 137/58; PULSE 60; RESP 16; TEMP 35.8; BMI 33.7
[2021-09-26 09:11] VITALS: BP 129/64; PULSE 59; RESP 20; TEMP 36.6; BMI 33.7
--- NOTE | 2021-09-26 15:52 | PCM.WC.PN ---
History of Present Illness Date of Service: 09/26/21 Chief Complaint: left heel and arch ulcers History of Wound: Patient presents for chronic non healing wound to left plantar foot (heel and arch). A limb and life-threatening infection which required emergent surgical intervention on 05-29-2021. He then subsequently resided in the transitional care unit for wound care which he completed a course of IV antibiotics. He changed his dressing as advised and there is reduced moisture. He denies fever, chill, nausea, vomiting, pain, odor, redness. He is keeping weight off of his foot he reports. He reports he seems to do better when he takes a break from total contact cast of the couple days a week to make sure the ulcer site is cleaned up very well. Progress of Wound: improving Objective Data Objective Data Vital Signs: Vital Signs Temp Pulse Resp BP 97.9 F 59 L 20 H 129/64 H 09/26/21 09:11 09/26/21 09:11 09/26/21 09:11 09/26/21 09:11 Oxygen Delivery Method Room Air Body Mass Index (BMI) 33.7 Physical Exam Narrative Const alert and no apparent distress General Appearance: cooperative and comfortable Extremity There is diffuse left foot/ankle and leg swelling. Left foot s/p debridement to arch and heel, tissues are healthy and viable, granular. no longer visualized fascia and muscle layer. There is no streaking or odor, compartments remain soft to palpate, there is no fluctuance or bogginess on palpation, no drainage, no visible abscess, no cellulitis, no blistering present. At the plantar arch, there is devitalized exposed fascia?tendon which is no longer directly visualized. Hematogenous drainage only upon debridement. Periwound moisture and maceration is decreased to arch but moderate to heel. reduced ulcer depth is continually noted. General Extremity: Negative for clubbing or cyanosis to digits. Vasc normal capillary refill, no acute ischemic skin changes noted, normal temperature bilateral. Skin Skin Narrative: Wound Narrative: Neuro Neuro Narrative: Debridement Note Debridement Note Wound debrided: left heel, left arch Wound Grade/Stage: 3,3 Type of Debridement: Excisional debridement Anesthesia Used: 4% Lidocaine Solution Depth: in the subcutaneous layer Percentage of wound debrided: 100 Instrument Used: #15 blade Tissue Removed: fibrous, devitalized subcutaneous, biofilm, slough Severity: Fat Layer Exposed Amount of bleeding with debridement: Mild Bleeding Controlled with: Pressure Patient tolerated procedure: Patient tolerated procedure well Post-Debridement Measurements and Additional Note: Post-Debridement Measurements/Treatment - Nurse 1 - General Ulcer Assessment Start: 09/17/21 10:08 Freq: Status: Active Protocol: EVELYN Activity Type Activity Date Activity User E-Sign Co-Sign Detail Recorded Client Recorded Date Recorded By Document 09/17/21 10:08 KR [id number] 09/17/21 10:15 KR Document 09/19/21 09:01 DL [id number] 09/19/21 09:12 DL Document 09/24/21 08:55 BMF [id number] 09/24/21 08:58 BMF Document 09/26/21 09:11 DL [id number] 09/26/21 09:20 DL 09/17/21 09/19/21 09/24/21 10:08 09:01 08:55 - Today's Visit Information Type of service Follow-up Visit Follow-up Visit Nurse-only (Physician/TERRITORY SUPERVISOR (Physician/TERRITORY SUPERVISOR Visit ) ) Arrival Mode Wheelchair Wheelchair Wheelchair Transfer Assistance Manual Other Transfer Assist (Other) x2 stand by Patient Identification Verified (Name & Yes Yes Yes ) Patient Requires Transmission-Based No No Precautions Finger Stick Blood Sugar(mg/dl) (if indicated): Blood Sugar Height and Weight Body Mass Index (BMI) 33.7 33.7 33.7 BMI Classification Obese Obese Obese Vital Signs Temperature (97.8 F-99.1 F) 97.5 F L 97.7 F L 96.5 F L Temperature Source Temporal Temporal Temporal Pulse Rate (60-100) 60 65 60 Pulse Location Monitor Monitor Monitor Respiratory Rate (12-18) 18 16 Respiratory rate source Observation Observation Oxygen Delivery Method Room Air Blood Pressure (90/60-120/80) 108/49 L 132/66 H 137/58 H Blood Pressure Mean (mm Hg) 68 88 84 Source Monitor Monitor Monitor Position Sitting Sitting Sitting Blood Pressure Location Right Arm Right Forearm Left Arm History Since Last Visit- (Skip if this is Patient's initial visit) Have you changed medications since your No No No last visit? Any new allergies or adverse reactions No No No Had a fall/change in ADL's that may No No increase risk of falls Signs or symptoms of abuse and/or No No No neglect since last visit Have you been in the hospital since your No No No last visit? Has dressing in place as prescribed Yes Yes Yes Has compression in place as prescribed N/A No N/A Has offloadiing in place as prescribed Yes Yes Yes Experienced any changes in pain level or No No No management Left Footwear Total Contact Regular Shoe Total Contact Cast Cast Right Footwear Regular Shoe Surgical Shoe Regular Shoe with pressure relief insole Pain Scale: 0-10 Numeric Is Patient Pain Free? Yes Yes Yes 09/26/21 09:11 - Today's Visit Information Type of service Follow-up Visit (Physician/TERRITORY SUPERVISOR ) Arrival Mode Wheelchair Transfer Assistance Manual Transfer Assist (Other) x1 Patient Identification Verified (Name & Yes ) Patient Requires Transmission-Based No Precautions Finger Stick Blood Sugar(mg/dl) (if 126 indicated): Blood Sugar Stated by Patient Height and Weight Body Mass Index (BMI) 33.7 BMI Classification Obese Vital Signs Temperature (97.8 F-99.1 F) 97.9 F Temperature Source Temporal Pulse Rate (60-100) 59 L Pulse Location Monitor Respiratory Rate (12-18) 20 H Respiratory rate source Observation Oxygen Delivery Method Blood Pressure (90/60-120/80) 129/64 H Blood Pressure Mean (mm Hg) 85 Source Monitor Position Blood Pressure Location History Since Last Visit- (Skip if this is Patient's initial visit) Have you changed medications since your No last visit? Any new allergies or adverse reactions No Had a fall/change in ADL's that may No increase risk of falls Signs or symptoms of abuse and/or No neglect since last visit Have you been in the hospital since your No last visit? Has dressing in place as prescribed Yes Has compression in place as prescribed N/A Has offloadiing in place as prescribed Yes Experienced any changes in pain level or No management Left Footwear Removable Cast Walker/Walking Boot Right Footwear Pain Scale: 0-10 Numeric Is Patient Pain Free? Yes - Nurse 1 - General Ulcer Measurement Start: 09/17/21 10:08 Freq: Status: Active Protocol: Activity Type Activity Date Activity User E-Sign Co-Sign Detail Recorded Client Recorded Date Recorded By Document 09/17/21 10:08 VASQUEZ [id number] 09/17/21 10:15 KR Document 09/19/21 09:01 DL [id number] 09/19/21 09:12 DL Document 09/26/21 09:11 DL [id number] 09/26/21 09:20 DL 09/17/21 09/19/21 09/26/21 10:08 09:01 09:11 Wound Center Nurse 1 4-left plantar arch -Combined with other wound No -Current Size (cm) - Length 6.8 2.3 1.1 -Current Size (cm) - Width 3.6 3.3 3.1 -Current Size (cm) - Depth 0.2 0.1 0.1 -Total Square Cm 24.48 7.59 3.41 -Photo Taken No -Tunneling No -Undermining/Tunneling No -Circular Undermining No -Exudate Amt Large Large Large -Exudate Type Serosanguineous Serosanguineous Serosanguineous -Wound Margin Distinct, Distinct, Thickened Outline Outline Attached Attached -Granulation Amt Large (67-100%) Medium (34-66%) Small (1-33%) -Granulation Quality [place] Red -Necrosis Amt Large (67-100%) Medium (34-66%) Small (1-33%) -Necrotic Tissue Type Adherent Slough Adherent Slough Adherent Slough -Structure Exposed N/A N/A -Texture (Margaret-wound Skin Appearance) Assessed,Callus Assessed,Callus Scarring ,Scarring -Moisture (Margaret-wound Skin Appearance) Assessed, Assessed, Maceration Maceration Maceration -Color (Margaret-wound Skin Appearance) No Abnormality, Assessed Hemosiderin Assessed Staining -Temperature (Margaret-wound Skin No Abnormality No Abnormality No Abnormality Appearance) (Pt Warm) (Pt Warm) (Pt Warm) -Tenderness on Palpation (Margaret-wound No No No Skin Appearance) -Ulcer Cleansing Soap and Water Wound Cleanser Soap and Water -Foul Odor after Cleansing No No No -Anesthetic Used 4% Lidocaine 4% Lidocaine 5% Lidocaine Solution,5% Solution Gel Lidocaine Gel #1 left heel cluster -Combined with other wound No -Current Size (cm) - Length 2.3 2.5 2.6 -Current Size (cm) - Width 2.4 2.2 2 -Current Size (cm) - Depth 0.5 0.9 1 -Total Square Cm 5.52 5.50 5.2 -Photo Taken No -Tunneling No -Undermining/Tunneling No -Circular Undermining No -Exudate Amt Large Large Large -Exudate Type Serosanguineous Serosanguineous -Wound Margin Distinct, Distinct, Outline Outline Attached Attached -Granulation Amt Large (67-100%) Medium (34-66%) Large (67-100%) -Granulation Quality [place] Red -Slough/Fibrin Yes -Necrosis Amt Large (67-100%) Small (1-33%) Small (1-33%) -Necrotic Tissue Type Adherent Slough Adherent Slough -Structure Exposed N/A N/A -Texture (Margaret-wound Skin Appearance) Assessed,Callus Callus Scarring ,Scarring -Moisture (Margaret-wound Skin Appearance) Assessed, Assessed, Maceration Maceration Maceration -Color (Margaret-wound Skin Appearance) No Abnormality, Assessed Hemosiderin Assessed Staining -Temperature (Margaret-wound Skin No Abnormality No Abnormality No Abnormality Appearance) (Pt Warm) (Pt Warm) (Pt Warm) -Tenderness on Palpation (Margaret-wound No No No Skin Appearance) -Ulcer Cleansing Rinsed/ Wound Cleanser Soap and Water Irrigated with Saline -Foul Odor after Cleansing No No No -Anesthetic Used 4% Lidocaine 4% Lidocaine 5% Lidocaine Solution,5% Solution Gel Lidocaine Gel Left Calf (cm) 49 44.2 Left Ankle (cm) 28.8 27 WC - Nurse 2 - General Ulcer CM Notes Start: 09/17/21 10:08 Freq: Status: Active Protocol: Activity Type Activity Date Activity User E-Sign Co-Sign Detail Recorded Client Recorded Date Recorded By Document 09/19/21 09:20 DANIEL [id number] 09/19/21 09:27 Edit Result 09/19/21 09:20 JF (1) [id number] 09/20/21 06:49 PL Document 09/26/21 09:31 DANIEL [id number] 09/26/21 09:41 DANIEL (1) #1 left heel cluster - Debridement - Subq, 1st 20sq cm Yes => No 09/19/21 09/26/21 09:20 09:31 Wound Center Nurse 2 4-left plantar arch -Time 09:21 09:34 -Correct Patient Yes Yes -Correct Side, Site, Position Yes Yes -Correct Procedure Yes Yes -Procedure Performed Yes Yes -Type of Procedure Debridement Debridement -Clinical Debridement Subcutaneous Subcutaneous -Tissue Removed Subcutaneous Subcutaneous -Post Debridement (cm) - Length 3.3 1.2 -Post Debridement (cm) - Width 3.5 3.1 -Post Debridement (cm) - Depth 0.3 0.1 -Total Square (Post) (cm) 11.55 3.72 -Area of Debridement (cm) - Length 3.3 1.2 -Area of Debridement (cm) - Width 3.5 3.1 -Total Square (Area) (cm) 11.55 3.72 -Tunneling No No -Undermining/Tunneling No No -Circular Undermining No No -Wound/Ulcer Outcome Not Healed Not Healed -Ulcer Cleansing Rinsed/ Rinsed/ Irrigated with Irrigated with Saline Saline -Foul Odor after Cleansing No No -Bioengineered Tissue No No -Bleeding Controlled with Pressure Pressure -Treatment Response Procedure Procedure Tolerated Well Tolerated Well -Offloading No Yes -Type of Offloading Camwalker -Debridement - Subq, 1st 20sq cm Yes No #1 left heel cluster -Time 09:25 09:34 -Correct Patient Yes Yes -Correct Side, Site, Position Yes Yes -Correct Procedure Yes Yes -Procedure Performed Yes Yes -Type of Procedure Debridement Debridement -Clinical Debridement Subcutaneous Subcutaneous -Tissue Removed Subcutaneous Subcutaneous -Post Debridement (cm) - Length 2.4 2.6 -Post Debridement (cm) - Width 2.5 2.1 -Post Debridement (cm) - Depth 0.5 1.0 -Total Square (Post) (cm) 6.00 5.46 -Area of Debridement (cm) - Length 2.4 2.6 -Area of Debridement (cm) - Width 2.5 2.1 -Total Square (Area) (cm) 6.00 5.46 -Tunneling No No -Undermining/Tunneling No No -Circular Undermining No No -Wound/Ulcer Outcome Not Healed Not Healed -Ulcer Cleansing Rinsed/ Rinsed/ Irrigated with Irrigated with Saline Saline -Foul Odor after Cleansing No No -Bioengineered Tissue No No -Bleeding Controlled with Pressure Pressure -Treatment Response Procedure Procedure Tolerated Well Tolerated Well -Offloading Yes Yes -Type of Offloading Total Contact Camwalker Cast (TCC) - Left ($) -Debridement - Subq, 1st 20sq cm No Yes Pain Scale: 0-10 Numeric Is Patient Pain Free? Yes Yes WC - Nurse 3 - General Ulcer D/C NN Start: 09/17/21 10:08 Freq: Status: Active Protocol: Activity Type Activity Date Activity User E-Sign Co-Sign Detail Recorded Client Recorded Date Recorded By Document 09/17/21 13:06 DANIEL [id number] 09/17/21 13:08 Edit Result 09/17/21 13:06 JF (1) [id number] 09/17/21 13:08 JF Document 09/19/21 09:31 RB [id number] 09/19/21 09:34 RB Document 09/24/21 08:55 [facility] [id number] 09/24/21 08:58 BM Document 09/26/21 10:01 RB [id number] 09/26/21 10:03 RB (1) Margaret-Wound Care => Barrier Other/Comment => betadine to => periulcer to both => ulcers 09/17/21 09/19/21 09/24/21 13:06 09:31 08:55 Wound Care Nurse 3 4-left plantar arch -Ulcer Cleansing Rinsed/ Soap and Water Irrigated with Saline -Foul Odor after Cleansing No No -Primary Dressing Applied Optilok 6.5x10, Fibracol Plus Optilok 6.5x10, Silvercel 4x4,Optilok 6. Silvercel,Other 5x10 -Other Dressing betadine to betadine paint peiulcer and margaret wound primary layer TCC applied -Primary Dressing Covered/Secured with Dry Gauze & Dry Gauze & Roll Gauze, Roll Gauze, Secured with Secured with Tape Tape -Other Covering drsg per [facility] coordinator -Fibracol Plus 4x4 1 -Optilok 6.5x10 1 1 2 -Silvercel 0 1 #1 left heel cluster -Ulcer Cleansing Rinsed/ Soap and Water Irrigated with Saline -Foul Odor after Cleansing No -Primary Dressing Applied Optilok 6.5x10, Optilok 6.5x10 Optilok 6.5x10, Silvercel Silvercel -Other Dressing fibracol pluus betadine paint to ulcer an to margaret wound betadine to peiulcer -Primary Dressing Covered/Secured with Dry Gauze & Dry Gauze & Roll Gauze, Roll Gauze, Secured with Secured with Tape Tape -Other Covering drsg per [facility] coordinator -Optilok 6.5x10 1 1 0 -Silvercel 1 0 Margaret-Wound Care Barrier Other/Comment betadine to periulcer to both ulcers Left -Compression Wrap Kevin Wrap Kevin Wrap -Other Treatment Response Procedure Procedure Tolerated Well Tolerated Well Vital Signs Temperature (97.8 F-99.1 F) 96.5 F L Temperature Source Temporal Pulse Rate (60-100) 60 Pulse Location Monitor Respiratory Rate (12-18) 16 Respiratory rate source Observation Oxygen Delivery Method Room Air Blood Pressure (90/60-120/80) 137/58 H Blood Pressure Mean (mm Hg) 84 Source Monitor Position Sitting Blood Pressure Location Left Arm Pain Scale: 0-10 Numeric Is Patient Pain Free? Yes No Yes LLE -Description Aching -Intensity 5 -Pain Behavior Withdrawal from Touch -Pain Aggravating Factors Exercise/ Activity, Standing -Alleviating Factors/Interventions Medication -Effectiveness of Alleviating Factor/ Moderately Intervention effective WC - Visit Discharge Discharge Condition Stable Stable Stable Ambulatory Status Ambulatory, Wheelchair Wheelchair Wheelchair Transportation Private Auto Private Auto Private Auto Medication Reconcilliation completed & Yes No provided to patient/care provider Clinical Summary of Care Provided Yes Yes 09/26/21 10:01 Wound Care Nurse 3 4-left plantar arch -Ulcer Cleansing -Foul Odor after Cleansing -Primary Dressing Applied Silvercel -Other Dressing abd nurses hat -Primary Dressing Covered/Secured with Dry Gauze,Dry Gauze & Roll Gauze,Secured with Tape -Other Covering -Fibracol Plus 4x4 -Optilok 6.5x10 -Silvercel 1 #1 left heel cluster -Ulcer Cleansing -Foul Odor after Cleansing -Primary Dressing Applied -Other Dressing silvercel -Primary Dressing Covered/Secured with Dry Gauze,Dry Gauze & Roll Gauze,Secured with Tape -Other Covering -Optilok 6.5x10 -Silvercel Margaret-Wound Care Other/Comment Left -Compression Wrap -Other kevin Treatment Response Procedure Tolerated Well Vital Signs Temperature (97.8 F-99.1 F) Temperature Source Pulse Rate (60-100) Pulse Location Respiratory Rate (12-18) Respiratory rate source Oxygen Delivery Method Blood Pressure (90/60-120/80) Blood Pressure Mean (mm Hg) Source Position Blood Pressure Location Pain Scale: 0-10 Numeric Is Patient Pain Free? Yes LLE -Description -Intensity -Pain Behavior -Pain Aggravating Factors -Alleviating Factors/Interventions -Effectiveness of Alleviating Factor/ Intervention WC - Visit Discharge Discharge Condition Stable Ambulatory Status Wheelchair Transportation van Medication Reconcilliation completed & No provided to patient/care provider Clinical Summary of Care Provided Yes Assessment/Plan Assessment/Plan (1) Non-pressure chronic ulcer of left heel and midfoot with fat layer exposed: CODE(S): L97.422 - Non-pressure chronic ulcer of left heel and midfoot with fat layer exposed (2) Ulcer of left foot with necrosis of muscle: CODE(S): L97.523 - Non-pressure chronic ulcer of other part of left foot with necrosis of muscle (3) Maceration of skin: CODE(S): L98.8 - Other specified disorders of the skin and subcutaneous tissue (4) Localized edema: CODE(S): R60.0 - Localized edema (5) Diabetes mellitus: CODE(S): E11.9 - Type 2 diabetes mellitus without complications (6) Type 2 diabetes mellitus with diabetic polyneuropathy: CODE(S): E11.42 - Type 2 diabetes mellitus with diabetic polyneuropathy QUALIFIERS: Diabetes mellitus buttermaker helper insulin use: with longterm use Qualified Code(s): E11.42 - Type 2 diabetes mellitus with diabetic polyneuropathy; Z79.4 - manager intermediate (current) use of insulin (7) Diabetic foot ulcer: CODE(S): E11.621 - Type 2 diabetes mellitus with foot ulcer; L97.509 - Non-pressure chronic ulcer of other part of unspecified foot with unspecified severity QUALIFIERS: Diabetes mellitus type: type 2 Diabetic foot ulcer location: heel Laterality: left Non-pressure ulcer stage: with fat layer exposed Qualified Code(s): E11.621 - Type 2 diabetes mellitus with foot ulcer; L97.422 - Non-pressure chronic ulcer of left heel and midfoot with fat layer exposed (8) Tobacco abuse: CODE(S): Z72.0 - Tobacco use PLAN: Patient seen and examined. I reviewed and discussed his case. Debridement was performed as noted in the clinical nursing panel. Dressing recommendation: silvercel was applied to wound bed with peripheral Betadine wet-to-dry gauze to the maceration sites with additional superabsorption secondary dressing prior to total contact cast application today. Will return Friday for removal. Patient wound is noted to have improved with healthier appearance and there is no malodor. There are no local signs infection noted today. He was seen by infectious disease during his last hospital admission and he had surgery on 05-29-2021. His surgical cultures had MRSA, Enterococcus, klebs, Proteus and it was down to deep tissue. He completed a 2-week course of IV vancomycin and Unasyn and then followed up with 4 weeks of oral doxycycline and Augmentin with a stop date of 07-10-21. Offloading: He is amendable to have a total contact cast applied today and verbal consent was obtained. This was applied according to standard protocol in a neutral position a well-padded manner. He tolerated this well. To keep clean, dry, and intact until follow-up visit on Friday once the cast will be removed. Patient relates he had follow-up appointment with his primary care provider, Priyanka Brown, and relates that she did not change any medication and stated he was doing okay. PCP is leaving the diabetes management up to his inspector radar and electronics, Dr. Mykel Barraza. He was able to follow-up and recommendations were updated. Edema management: Medical management per primary care. To reduce salt in diet. Total contact cast will also aide in edema reduction. Arterial studies were reviewed. Showing likely adequate perfusion for healing. Right LAI is 0.99 and left 1.18. Right toe brachial index 0.76 and left 0.71. Referral to Dr. Campos for potential venous and arterial intervention was provided today. He went for consultationon 04-11-21. Will recheck duplex to make sure normal posterior tibial flow into the area of the wound. normal prior LAI noted. Host factors: His multiple comorbidities are noted including diabetes and smoking history. Also recommend improvement in nutritional status which involves taking in adequate protein and also focusing on eating 5-10 whole foods daily. All questions answered. He understands below-knee amputation is an option as well if he cannot keep pressure off the site, if pain becomes intolerable, and if he no longer is able to proceed with a comprehensive wound healing plan. He defers at this time. Patient to follow up in 1 week or call sooner if status worsening or if questions. I answered all of his questions. This note was generated with [employer] software. It may contain incorrect words, spelling, and punctuation that were not noted in checking the note before signing.
--- NOTE | 2021-09-28 13:44 | PN.PCM_ITS ---
History of Present Illness Date of Service: 09/28/21 Chief Complaint: left heel and arch ulcers History of Wound: Patient presents for chronic non healing wound to left plantar foot (heel and arch). A limb and life-threatening infection which required emergent surgical intervention on 05-29-2021. He then subsequently resided in the transitional care unit for wound care which he completed a course of IV antibiotics. He changed his dressing as advised and there is reduced moisture. He denies fever, chill, nausea, vomiting, pain, odor, redness. He is keeping weight off of his foot he reports. He reports he seems to do better when he takes a break from total contact cast of the couple days a week to make sure the ulcer site is cleaned up very well. Wound care - Aquacel-Ag to the the left midfoot and left heal ulcers. He did well with a cast break this past friday and friday. Progress of Wound: Courtesy visit for application of TCC today for Dr. Chapman. Objective Data Objective Data Vital Signs: Vital Signs Temp Pulse Resp BP 97.9 F 59 L 20 H 129/64 H 09/26/21 09:11 09/26/21 09:11 09/26/21 09:11 09/26/21 09:11 Oxygen Delivery Method Room Air Body Mass Index (BMI) 33.7 Charges/Coding Procedures Integumentary [id number]: Other Procedure See Report ([id number]- TCC application) Physical Exam Narrative Const alert and no apparent distress General Appearance: cooperative and comfortable Extremity There is diffuse left foot/ankle and leg swelling. Left foot arch and heel tissues are healthy and viable, granular. Periwound moisture and maceration is decreased. General Extremity: Negative for clubbing or cyanosis to digits. Vasc normal capillary refill, no acute ischemic skin changes noted, normal temperature bilateral. Skin Skin Narrative: Wound Narrative: Neuro Neuro Narrative: Debridement Note Debridement Note No debridement was completed: No debridement was completed today Post-Debridement Measurements and Additional Note: Post-Debridement Measurements/Treatment JANESSA - Nurse 1 - General Ulcer Assessment Start: 09/17/21 10:08 Freq: Status: Active Protocol: EVELYN Activity Type Activity Date Activity User E-Sign Co-Sign Detail Recorded Client Recorded Date Recorded By Document 09/17/21 10:08 VASQUEZ [id number] 09/17/21 10:15 KR Document 09/19/21 09:01 DL [id number] 09/19/21 09:12 DL Document 09/24/21 08:55 [facility] [id number] 09/24/21 08:58 BMF Document 09/26/21 09:11 DL [id number] 09/26/21 09:20 DL 09/17/21 09/19/21 09/24/21 10:08 09:01 08:55 WC - Today's Visit Information Type of service Follow-up Visit Follow-up Visit Nurse-only (Physician/[employer]IST[employer] (Physician/[employer] Visit ) ) Arrival Mode Wheelchair Wheelchair Wheelchair Transfer Assistance Manual Other Transfer Assist (Other) x2 stand by Patient Identification Verified (Name & Yes Yes Yes ) Patient Requires Transmission-Based No No Precautions Finger Stick Blood Sugar(mg/dl) (if indicated): Blood Sugar Height and Weight Body Mass Index (BMI) 33.7 33.7 33.7 BMI Classification Obese Obese Obese Vital Signs Temperature (97.8 F-99.1 F) 97.5 F L 97.7 F L 96.5 F L Temperature Source Temporal Temporal Temporal Pulse Rate (60-100) 60 65 60 Pulse Location Monitor Monitor Monitor Respiratory Rate (12-18) 18 16 Respiratory rate source Observation Observation Oxygen Delivery Method Room Air Blood Pressure (90/60-120/80) 108/49 L 132/66 H 137/58 H Blood Pressure Mean (mm Hg) 68 88 84 Source Monitor Monitor Monitor Position Sitting Sitting Sitting Blood Pressure Location Right Arm Right Forearm Left Arm History Since Last Visit- (Skip if this is Patient's initial visit) Have you changed medications since your No No No last visit? Any new allergies or adverse reactions No No No Had a fall/change in ADL's that may No No increase risk of falls Signs or symptoms of abuse and/or No No No neglect since last visit Have you been in the hospital since your No No No last visit? Has dressing in place as prescribed Yes Yes Yes Has compression in place as prescribed N/A No N/A Has offloadiing in place as prescribed Yes Yes Yes Experienced any changes in pain level or No No No management Left Footwear Total Contact Regular Shoe Total Contact Cast Cast Right Footwear Regular Shoe Surgical Shoe Regular Shoe with pressure relief insole Pain Scale: 0-10 Numeric Is Patient Pain Free? Yes Yes Yes 09/26/21 09:11 WC - Today's Visit Information Type of service Follow-up Visit (Physician/[employer] ) Arrival Mode Wheelchair Transfer Assistance Manual Transfer Assist (Other) x1 Patient Identification Verified (Name & Yes ) Patient Requires Transmission-Based No Precautions Finger Stick Blood Sugar(mg/dl) (if 126 indicated): Blood Sugar Stated by Patient Height and Weight Body Mass Index (BMI) 33.7 BMI Classification Obese Vital Signs Temperature (97.8 F-99.1 F) 97.9 F Temperature Source Temporal Pulse Rate (60-100) 59 L Pulse Location Monitor Respiratory Rate (12-18) 20 H Respiratory rate source Observation Oxygen Delivery Method Blood Pressure (90/60-120/80) 129/64 H Blood Pressure Mean (mm Hg) 85 Source Monitor Position Blood Pressure Location History Since Last Visit- (Skip if this is Patient's initial visit) Have you changed medications since your No last visit? Any new allergies or adverse reactions No Had a fall/change in ADL's that may No increase risk of falls Signs or symptoms of abuse and/or No neglect since last visit Have you been in the hospital since your No last visit? Has dressing in place as prescribed Yes Has compression in place as prescribed N/A Has offloadiing in place as prescribed Yes Experienced any changes in pain level or No management Left Footwear Removable Cast Walker/Walking Boot Right Footwear Pain Scale: 0-10 Numeric Is Patient Pain Free? Yes - Nurse 1 - General Ulcer Measurement Start: 09/17/21 10:08 Freq: Status: Active Protocol: Activity Type Activity Date Activity User E-Sign Co-Sign Detail Recorded Client Recorded Date Recorded By Document 09/17/21 10:08 KR [id number] 09/17/21 10:15 KR Document 09/19/21 09:01 DL [id number] 09/19/21 09:12 DL Document 09/26/21 09:11 DL [id number] 09/26/21 09:20 DL 09/17/21 09/19/21 09/26/21 10:08 09:01 09:11 Wound Center Nurse 1 4-left plantar arch -Combined with other wound No -Current Size (cm) - Length 6.8 2.3 1.1 -Current Size (cm) - Width 3.6 3.3 3.1 -Current Size (cm) - Depth 0.2 0.1 0.1 -Total Square Cm 24.48 7.59 3.41 -Photo Taken No -Tunneling No -Undermining/Tunneling No -Circular Undermining No -Exudate Amt Large Large Large -Exudate Type Serosanguineous Serosanguineous Serosanguineous -Wound Margin Distinct, Distinct, Thickened Outline Outline Attached Attached -Granulation Amt Large (67-100%) Medium (34-66%) Small (1-33%) -Granulation Quality Fulda Fulda Red -Necrosis Amt Large (67-100%) Medium (34-66%) Small (1-33%) -Necrotic Tissue Type Adherent Slough Adherent Slough Adherent Slough -Structure Exposed N/A N/A -Texture (Margaret-wound Skin Appearance) Assessed,Callus Assessed,Callus Scarring ,Scarring -Moisture (Margaret-wound Skin Appearance) Assessed, Assessed, Maceration Maceration Maceration -Color (Margaret-wound Skin Appearance) No Abnormality, Assessed Hemosiderin Assessed Staining -Temperature (Margaret-wound Skin No Abnormality No Abnormality No Abnormality Appearance) (Pt Warm) (Pt Warm) (Pt Warm) -Tenderness on Palpation (Margaret-wound No No No Skin Appearance) -Ulcer Cleansing Soap and Water Wound Cleanser Soap and Water -Foul Odor after Cleansing No No No -Anesthetic Used 4% Lidocaine 4% Lidocaine 5% Lidocaine Solution,5% Solution Gel Lidocaine Gel #1 left heel cluster -Combined with other wound No -Current Size (cm) - Length 2.3 2.5 2.6 -Current Size (cm) - Width 2.4 2.2 2 -Current Size (cm) - Depth 0.5 0.9 1 -Total Square Cm 5.52 5.50 5.2 -Photo Taken No -Tunneling No -Undermining/Tunneling No -Circular Undermining No -Exudate Amt Large Large Large -Exudate Type Serosanguineous Serosanguineous -Wound Margin Distinct, Distinct, Outline Outline Attached Attached -Granulation Amt Large (67-100%) Medium (34-66%) Large (67-100%) -Granulation Quality Fulda Fulda Red -Slough/Fibrin Yes -Necrosis Amt Large (67-100%) Small (1-33%) Small (1-33%) -Necrotic Tissue Type Adherent Slough Adherent Slough -Structure Exposed N/A N/A -Texture (Margaret-wound Skin Appearance) Assessed,Callus Callus Scarring ,Scarring -Moisture (Margaret-wound Skin Appearance) Assessed, Assessed, Maceration Maceration Maceration -Color (Margaret-wound Skin Appearance) No Abnormality, Assessed Hemosiderin Assessed Staining -Temperature (Margaret-wound Skin No Abnormality No Abnormality No Abnormality Appearance) (Pt Warm) (Pt Warm) (Pt Warm) -Tenderness on Palpation (Margaret-wound No No No Skin Appearance) -Ulcer Cleansing Rinsed/ Wound Cleanser Soap and Water Irrigated with Saline -Foul Odor after Cleansing No No No -Anesthetic Used 4% Lidocaine 4% Lidocaine 5% Lidocaine Solution,5% Solution Gel Lidocaine Gel Left Calf (cm) 49 44.2 Left Ankle (cm) 28.8 27 WC - Nurse 2 - General Ulcer CM Notes Start: 09/17/21 10:08 Freq: Status: Active Protocol: Activity Type Activity Date Activity User E-Sign Co-Sign Detail Recorded Client Recorded Date Recorded By Document 09/19/21 09:20 DANIEL [id number] 09/19/21 09:27 Edit Result 09/19/21 09:20 JF (1) [id number] 09/20/21 06:49 PL Document 09/26/21 09:31 DANIEL [id number] 09/26/21 09:41 JF (1) #1 left heel cluster - Debridement - Subq, 1st 20sq cm Yes => No 09/19/21 09/26/21 09:20 09:31 Wound Center Nurse 2 4-left plantar arch -Time 09:21 09:34 -Correct Patient Yes Yes -Correct Side, Site, Position Yes Yes -Correct Procedure Yes Yes -Procedure Performed Yes Yes -Type of Procedure Debridement Debridement -Clinical Debridement Subcutaneous Subcutaneous -Tissue Removed Subcutaneous Subcutaneous -Post Debridement (cm) - Length 3.3 1.2 -Post Debridement (cm) - Width 3.5 3.1 -Post Debridement (cm) - Depth 0.3 0.1 -Total Square (Post) (cm) 11.55 3.72 -Area of Debridement (cm) - Length 3.3 1.2 -Area of Debridement (cm) - Width 3.5 3.1 -Total Square (Area) (cm) 11.55 3.72 -Tunneling No No -Undermining/Tunneling No No -Circular Undermining No No -Wound/Ulcer Outcome Not Healed Not Healed -Ulcer Cleansing Rinsed/ Rinsed/ Irrigated with Irrigated with Saline Saline -Foul Odor after Cleansing No No -Bioengineered Tissue No No -Bleeding Controlled with Pressure Pressure -Treatment Response Procedure Procedure Tolerated Well Tolerated Well -Offloading No Yes -Type of Offloading Camwalker -Debridement - Subq, 1st 20sq cm Yes No #1 left heel cluster -Time 09:25 09:34 -Correct Patient Yes Yes -Correct Side, Site, Position Yes Yes -Correct Procedure Yes Yes -Procedure Performed Yes Yes -Type of Procedure Debridement Debridement -Clinical Debridement Subcutaneous Subcutaneous -Tissue Removed Subcutaneous Subcutaneous -Post Debridement (cm) - Length 2.4 2.6 -Post Debridement (cm) - Width 2.5 2.1 -Post Debridement (cm) - Depth 0.5 1.0 -Total Square (Post) (cm) 6.00 5.46 -Area of Debridement (cm) - Length 2.4 2.6 -Area of Debridement (cm) - Width 2.5 2.1 -Total Square (Area) (cm) 6.00 5.46 -Tunneling No No -Undermining/Tunneling No No -Circular Undermining No No -Wound/Ulcer Outcome Not Healed Not Healed -Ulcer Cleansing Rinsed/ Rinsed/ Irrigated with Irrigated with Saline Saline -Foul Odor after Cleansing No No -Bioengineered Tissue No No -Bleeding Controlled with Pressure Pressure -Treatment Response Procedure Procedure Tolerated Well Tolerated Well -Offloading Yes Yes -Type of Offloading Total Contact Camwalker Cast (TCC) - Left ($) -Debridement - Subq, 1st 20sq cm No Yes Pain Scale: 0-10 Numeric Is Patient Pain Free? Yes Yes WC - Nurse 3 - General Ulcer D/C NN Start: 09/17/21 10:08 Freq: Status: Active Protocol: Activity Type Activity Date Activity User E-Sign Co-Sign Detail Recorded Client Recorded Date Recorded By Document 09/17/21 13:06 DANIEL [id number] 09/17/21 13:08 DANIEL Edit Result 09/17/21 13:06 JF (1) [id number] 09/17/21 13:08 JF Document 09/19/21 09:31 RB [id number] 09/19/21 09:34 RB Document 09/24/21 08:55 [facility] [id number] 09/24/21 08:58 BMF Document 09/26/21 10:01 RB [id number] 09/26/21 10:03 RB (1) Margaret-Wound Care => Barrier Other/Comment => betadine to => periulcer to both => ulcers 09/17/21 09/19/21 09/24/21 13:06 09:31 08:55 Wound Care Nurse 3 4-left plantar arch -Ulcer Cleansing Rinsed/ Soap and Water Irrigated with Saline -Foul Odor after Cleansing No No -Primary Dressing Applied Optilok 6.5x10, Fibracol Plus Optilok 6.5x10, Silvercel 4x4,Optilok 6. Silvercel,Other 5x10 -Other Dressing betadine to betadine paint peiulcer and margaret wound primary layer TCC applied -Primary Dressing Covered/Secured with Dry Gauze & Dry Gauze & Roll Gauze, Roll Gauze, Secured with Secured with Tape Tape -Other Covering drsg per [place] radio repairman -Fibracol Plus 4x4 1 -Optilok 6.5x10 1 1 2 -Silvercel 0 1 #1 left heel cluster -Ulcer Cleansing Rinsed/ Soap and Water Irrigated with Saline -Foul Odor after Cleansing No -Primary Dressing Applied Optilok 6.5x10, Optilok 6.5x10 Optilok 6.5x10, Silvercel Silvercel -Other Dressing fibracol pluus betadine paint to ulcer an to margaret wound betadine to peiulcer -Primary Dressing Covered/Secured with Dry Gauze & Dry Gauze & Roll Gauze, Roll Gauze, Secured with Secured with Tape Tape -Other Covering drsg per [place] radio repairman -Optilok 6.5x10 1 1 0 -Silvercel 1 0 Margaret-Wound Care Barrier Other/Comment betadine to periulcer to both ulcers Left -Compression Wrap Kevin Wrap Kevin Wrap -Other Treatment Response Procedure Procedure Tolerated Well Tolerated Well Vital Signs Temperature (97.8 F-99.1 F) 96.5 F L Temperature Source Temporal Pulse Rate (60-100) 60 Pulse Location Monitor Respiratory Rate (12-18) 16 Respiratory rate source Observation Oxygen Delivery Method Room Air Blood Pressure (90/60-120/80) 137/58 H Blood Pressure Mean (mm Hg) 84 Source Monitor Position Sitting Blood Pressure Location Left Arm Pain Scale: 0-10 Numeric Is Patient Pain Free? Yes No Yes LLE -Description Aching -Intensity 5 -Pain Behavior Withdrawal from Touch -Pain Aggravating Factors Exercise/ Activity, Standing -Alleviating Factors/Interventions Medication -Effectiveness of Alleviating Factor/ Moderately Intervention effective WC - Visit Discharge Discharge Condition Stable Stable Stable Ambulatory Status Ambulatory, Wheelchair Wheelchair Wheelchair Transportation Private Auto Private Auto Private Auto Medication Reconcilliation completed & Yes No provided to patient/care provider Clinical Summary of Care Provided Yes Yes 09/26/21 10:01 Wound Care Nurse 3 4-left plantar arch -Ulcer Cleansing -Foul Odor after Cleansing -Primary Dressing Applied Silvercel -Other Dressing abd nurses hat -Primary Dressing Covered/Secured with Dry Gauze,Dry Gauze & Roll Gauze,Secured with Tape -Other Covering -Fibracol Plus 4x4 -Optilok 6.5x10 -Silvercel 1 #1 left heel cluster -Ulcer Cleansing -Foul Odor after Cleansing -Primary Dressing Applied -Other Dressing silvercel -Primary Dressing Covered/Secured with Dry Gauze,Dry Gauze & Roll Gauze,Secured with Tape -Other Covering -Optilok 6.5x10 -Silvercel Margaret-Wound Care Other/Comment Left -Compression Wrap -Other kevin Treatment Response Procedure Tolerated Well Vital Signs Temperature (97.8 F-99.1 F) Temperature Source Pulse Rate (60-100) Pulse Location Respiratory Rate (12-18) Respiratory rate source Oxygen Delivery Method Blood Pressure (90/60-120/80) Blood Pressure Mean (mm Hg) Source Position Blood Pressure Location Pain Scale: 0-10 Numeric Is Patient Pain Free? Yes LLE -Description -Intensity -Pain Behavior -Pain Aggravating Factors -Alleviating Factors/Interventions -Effectiveness of Alleviating Factor/ Intervention WC - Visit Discharge Discharge Condition Stable Ambulatory Status Wheelchair Transportation van Medication Reconcilliation completed & No provided to patient/care provider Clinical Summary of Care Provided Yes Assessment/Plan Assessment/Plan (1) Non-pressure chronic ulcer of left heel and midfoot with fat layer exposed: CODE(S): L97.422 - Non-pressure chronic ulcer of left heel and midfoot with fat layer exposed (2) Ulcer of left foot with necrosis of muscle: CODE(S): L97.523 - Non-pressure chronic ulcer of other part of left foot with necrosis of muscle (3) Maceration of skin: CODE(S): L98.8 - Other specified disorders of the skin and subcutaneous tissue (4) Localized edema: CODE(S): R60.0 - Localized edema (5) Diabetes mellitus: CODE(S): E11.9 - Type 2 diabetes mellitus without complications (6) Type 2 diabetes mellitus with diabetic polyneuropathy: CODE(S): E11.42 - Type 2 diabetes mellitus with diabetic polyneuropathy QUALIFIERS: Diabetes mellitus shelter insulin use: with shelter use Qualified Code(s): E11.42 - Type 2 diabetes mellitus with diabetic polyneuropathy; Z79.4 - nursing home (current) use of insulin (7) Diabetic foot ulcer: CODE(S): E11.621 - Type 2 diabetes mellitus with foot ulcer; L97.509 - Non-pressure chronic ulcer of other part of unspecified foot with unspecified severity QUALIFIERS: Diabetic foot ulcer location: heel Diabetes mellitus type: type 2 Laterality: left Non-pressure ulcer stage: with fat layer exposed Qualified Code(s): E11.621 - Type 2 diabetes mellitus with foot ulcer; L97.422 - Non-pressure chronic ulcer of left heel and midfoot with fat layer exposed (8) Tobacco abuse: CODE(S): Z72.0 - Tobacco use PLAN: Patient seen and examined as courtesy visit for TCC application for Dr. Chapman. Dressing recommendation: silvercel was applied to wound bed with peripheral Betadine wet-to-dry gauze to the maceration sites with additional superabsorption secondary dressing prior to total contact cast application today. Will return Friday for removal. Offloading: He is amendable to have a total contact cast applied today and verbal consent was obtained. This was applied according to standard protocol in a neutral position a well-padded manner. He tolerated this well. To keep clean, dry, and intact until follow-up visit on Friday once the cast will be removed. This note was generated with mycujooation software. It may contain incorrect words, spelling, and punctuation that were not noted in checking the note before signing.
[2021-10-01 11:00] VITALS: BP 111/53; PULSE 68; RESP 16; TEMP 36.3; BMI 33.7
[2021-10-03 09:12] VITALS: BP 126/88; PULSE 66; RESP 18; TEMP 36.1; BMI 33.7
--- NOTE | 2021-10-03 10:56 | PCM.WC.PN ---
History of Present Illness Date of Service: 10/03/21 Chief Complaint: left heel and arch ulcers History of Wound: Patient presents for chronic non healing wound to left plantar foot (heel and arch). A limb and life-threatening infection which required emergent surgical intervention on 05-29-2021. He then subsequently resided in the transitional care unit for wound care which he completed a course of IV antibiotics. He has been demonstrating improvement with total contact cast applications. He denies fever, chill, nausea, vomiting, pain, odor, redness. He is keeping weight off of his foot he reports. He reports increased progressive pain the past week. He denies redness. Progress of Wound: improving w/ reduced size of ulcers Objective Data Objective Data Vital Signs: Vital Signs Temp Pulse Resp BP 97 F L 66 18 126/88 H 10/03/21 09:12 10/03/21 09:12 10/03/21 09:12 10/03/21 09:12 Oxygen Delivery Method Room Air Body Mass Index (BMI) 33.7 Physical Exam Narrative Const alert and no apparent distress General Appearance: cooperative and comfortable Extremity There is diffuse left foot/ankle and leg swelling. Left foot s/p debridement to arch and heel, tissues are healthy and viable, granular. no longer visualized fascia and muscle layer. There is no streaking or odor, compartments remain soft to palpate, there is no fluctuance or bogginess on palpation, no drainage, no visible abscess, no cellulitis, no blistering present. At the plantar arch, there is devitalized exposed fascia?tendon which is no longer directly visualized. Hematogenous drainage only upon debridement. Periwound moisture and maceration is decreased to arch but moderate to heel. reduced ulcer depth is continually noted. General Extremity: Negative for clubbing or cyanosis to digits. Vasc normal capillary refill, no acute ischemic skin changes noted, normal temperature bilateral. Skin Skin Narrative: Wound Narrative: Neuro Neuro Narrative: Debridement Note Debridement Note Wound debrided: left heel, left arch Wound Grade/Stage: 3,3 Type of Debridement: Excisional debridement Anesthesia Used: 4% Lidocaine Solution Depth: in the subcutaneous layer Percentage of wound debrided: 100 Instrument Used: #15 blade Tissue Removed: fibrous, devitalized subcutaneous, biofilm, slough Severity: Fat Layer Exposed Amount of bleeding with debridement: Mild Bleeding Controlled with: Pressure Patient tolerated procedure: Patient tolerated procedure well Post-Debridement Measurements and Additional Note: Post-Debridement Measurements/Treatment - Nurse 1 - General Ulcer Assessment Start: 09/17/21 10:08 Freq: Status: Active Protocol: EVELYN Activity Type Activity Date Activity User E-Sign Co-Sign Detail Recorded Client Recorded Date Recorded By Document 09/17/21 10:08 KR [id number] 09/17/21 10:15 KR Document 09/19/21 09:01 DL [id number] 09/19/21 09:12 DL Document 09/24/21 08:55 BMF [id number] 09/24/21 08:58 BMF Document 09/26/21 09:11 DL [id number] 09/26/21 09:20 DL Document 10/01/21 11:00 JF [id number] 10/01/21 11:04 JF Document 10/03/21 09:12 RB [id number] 10/03/21 09:19 RB 09/17/21 09/19/21 09/24/21 10:08 09:01 08:55 - Today's Visit Information Type of service Follow-up Visit Follow-up Visit Nurse-only (Physician/LOCATION DIRECTOR (Physician/LOCATION DIRECTOR Visit ) ) Arrival Mode Wheelchair Wheelchair Wheelchair Transfer Assistance Manual Other Transfer Assist (Other) x2 stand by Patient Identification Verified (Name & Yes Yes Yes ) Patient Requires Transmission-Based No No Precautions Safety Precautions Finger Stick Blood Sugar(mg/dl) (if indicated): Blood Sugar Height and Weight Body Mass Index (BMI) 33.7 33.7 33.7 BMI Classification Obese Obese Obese Vital Signs Temperature (97.8 F-99.1 F) 97.5 F L 97.7 F L 96.5 F L Temperature Source Temporal Temporal Temporal Pulse Rate (60-100) 60 65 60 Pulse Location Monitor Monitor Monitor Respiratory Rate (12-18) 18 16 Respiratory rate source Observation Observation Oxygen Delivery Method Room Air Blood Pressure (90/60-120/80) 108/49 L 132/66 H 137/58 H Blood Pressure Mean (mm Hg) 68 88 84 Source Monitor Monitor Monitor Position Sitting Sitting Sitting Blood Pressure Location Right Arm Right Forearm Left Arm History Since Last Visit- (Skip if this is Patient's initial visit) Have you changed medications since your No No No last visit? Any new allergies or adverse reactions No No No Had a fall/change in ADL's that may No No increase risk of falls Signs or symptoms of abuse and/or No No No neglect since last visit Have you been in the hospital since your No No No last visit? Has dressing in place as prescribed Yes Yes Yes Has compression in place as prescribed N/A No N/A Has offloadiing in place as prescribed Yes Yes Yes Experienced any changes in pain level or No No No management Left Footwear Total Contact Regular Shoe Total Contact Cast Cast Right Footwear Regular Shoe Surgical Shoe Regular Shoe with pressure relief insole Pain Scale: 0-10 Numeric Is Patient Pain Free? Yes Yes Yes LEFT PLANTAR HEEL -Description -Intensity -Duration (hours) -Pain Behavior -Pain Aggravating Factors -Alleviating Factors/Interventions -Effectiveness of Alleviating Factor/ Intervention 09/26/21 10/01/21 10/03/21 09:11 11:00 09:12 WC - Today's Visit Information Type of service Follow-up Visit Nurse-only Follow-up Visit (Physician/LOCATION DIRECTOR Visit (Physician/LOCATION DIRECTOR ) ) Arrival Mode Wheelchair Walker, Wheelchair Wheelchair Transfer Assistance Manual Manual Transfer Assist (Other) x1 Patient Identification Verified (Name & Yes Yes ) Patient Requires Transmission-Based No Yes No Precautions Safety Precautions Fall Prevention Finger Stick Blood Sugar(mg/dl) (if 126 indicated): Blood Sugar Stated by Patient Height and Weight Body Mass Index (BMI) 33.7 33.7 33.7 BMI Classification Obese Obese Obese Vital Signs Temperature (97.8 F-99.1 F) 97.9 F 97.4 F L 97 F L Temperature Source Temporal Temporal Temporal Pulse Rate (60-100) 59 L 68 66 Pulse Location Monitor Monitor Monitor Respiratory Rate (12-18) 20 H 16 18 Respiratory rate source Observation Observation Observation Oxygen Delivery Method Blood Pressure (90/60-120/80) 129/64 H 111/53 L 126/88 H Blood Pressure Mean (mm Hg) 85 72 100 Source Monitor Monitor Monitor Position Semi-Fowlers Semi-Fowlers Blood Pressure Location Left Forearm Left Arm History Since Last Visit- (Skip if this is Patient's initial visit) Have you changed medications since your No No last visit? Any new allergies or adverse reactions No No Had a fall/change in ADL's that may No No increase risk of falls Signs or symptoms of abuse and/or No No neglect since last visit Have you been in the hospital since your No No last visit? Has dressing in place as prescribed Yes Yes Has compression in place as prescribed N/A No Has offloadiing in place as prescribed Yes No Experienced any changes in pain level or No No management Left Footwear Removable Cast Regular Shoe Removable Cast Walker/Walking Walker/Walking Boot Boot Right Footwear Regular Shoe Regular Shoe Pain Scale: 0-10 Numeric Is Patient Pain Free? Yes No No LEFT PLANTAR HEEL -Description Sharp Sharp -Intensity 5 7 -Duration (hours) Acute Acute -Pain Behavior Facial Guarding Grimacing -Pain Aggravating Factors ADL's,Changing Exercise/ Position, Activity Walking -Alleviating Factors/Interventions Inactivity/ Medication Resting, Emotional Support -Effectiveness of Alleviating Factor/ Minimally Intervention effective WC - Nurse 1 - General Ulcer Measurement Start: 09/17/21 10:08 Freq: Status: Active Protocol: Activity Type Activity Date Activity User E-Sign Co-Sign Detail Recorded Client Recorded Date Recorded By Document 09/17/21 10:08 KR [id number] 09/17/21 10:15 KR Document 09/19/21 09:01 DL [id number] 09/19/21 09:12 DL Document 09/26/21 09:11 DL [id number] 09/26/21 09:20 DL Document 10/01/21 11:00 JF [id number] 10/01/21 11:04 JF Document 10/03/21 09:12 RB [id number] 10/03/21 09:19 RB 09/17/21 09/19/21 09/26/21 10:08 09:01 09:11 Wound Center Nurse 1 4-left plantar arch -Combined with other wound No -Current Size (cm) - Length 6.8 2.3 1.1 -Current Size (cm) - Width 3.6 3.3 3.1 -Current Size (cm) - Depth 0.2 0.1 0.1 -Total Square Cm 24.48 7.59 3.41 -Photo Taken No -Tunneling No -Undermining/Tunneling No -Circular Undermining No -Exudate Amt Large Large Large -Exudate Type Serosanguineous Serosanguineous Serosanguineous -Wound Margin Distinct, Distinct, Thickened Outline Outline Attached Attached -Granulation Amt Large (67-100%) Medium (34-66%) Small (1-33%) -Granulation Quality [place] -Slough/Fibrin -Necrosis Amt Large (67-100%) Medium (34-66%) Small (1-33%) -Necrotic Tissue Type Adherent Slough Adherent Slough Adherent Slough -Structure Exposed N/A N/A -Texture (Margaret-wound Skin Appearance) Assessed,Callus Assessed,Callus Scarring ,Scarring -Moisture (Margaret-wound Skin Appearance) Assessed, Assessed, Maceration Maceration Maceration -Color (Margaret-wound Skin Appearance) No Abnormality, Assessed Hemosiderin Assessed Staining -Temperature (Margaret-wound Skin No Abnormality No Abnormality No Abnormality Appearance) (Pt Warm) (Pt Warm) (Pt Warm) -Tenderness on Palpation (Margaret-wound No No No Skin Appearance) -Ulcer Cleansing Soap and Water Wound Cleanser Soap and Water -Foul Odor after Cleansing No No No -Anesthetic Used 4% Lidocaine 4% Lidocaine 5% Lidocaine Solution,5% Solution Gel Lidocaine Gel #1 left heel cluster -Combined with other wound No -Current Size (cm) - Length 2.3 2.5 2.6 -Current Size (cm) - Width 2.4 2.2 2 -Current Size (cm) - Depth 0.5 0.9 1 -Total Square Cm 5.52 5.50 5.2 -Photo Taken No -Epithelialization -Tunneling No -Undermining/Tunneling No -Circular Undermining No -Exudate Amt Large Large Large -Exudate Type Serosanguineous Serosanguineous -Wound Margin Distinct, Distinct, Outline Outline Attached Attached -Granulation Amt Large (67-100%) Medium (34-66%) Large (67-100%) -Granulation Quality [place] -Slough/Fibrin Yes -Necrosis Amt Large (67-100%) Small (1-33%) Small (1-33%) -Necrotic Tissue Type Adherent Slough Adherent Slough -Structure Exposed N/A N/A -Texture (Margaret-wound Skin Appearance) Assessed,Callus Callus Scarring ,Scarring -Moisture (Margaret-wound Skin Appearance) Assessed, Assessed, Maceration Maceration Maceration -Color (Margaret-wound Skin Appearance) No Abnormality, Assessed Hemosiderin Assessed Staining -Temperature (Margaret-wound Skin No Abnormality No Abnormality No Abnormality Appearance) (Pt Warm) (Pt Warm) (Pt Warm) -Tenderness on Palpation (Margaret-wound No No No Skin Appearance) -Ulcer Cleansing Rinsed/ Wound Cleanser Soap and Water Irrigated with Saline -Foul Odor after Cleansing No No No -Anesthetic Used 4% Lidocaine 4% Lidocaine 5% Lidocaine Solution,5% Solution Gel Lidocaine Gel Left Calf (cm) 49 44.2 Left Ankle (cm) 28.8 27 10/01/21 10/03/21 11:00 09:12 Wound Center Nurse 1 4-left plantar arch -Combined with other wound No -Current Size (cm) - Length 3.5 -Current Size (cm) - Width 2.4 -Current Size (cm) - Depth 0.1 -Total Square Cm 8.40 -Photo Taken -Tunneling No -Undermining/Tunneling No -Circular Undermining No -Exudate Amt Medium Large -Exudate Type Serosanguineous Serosanguineous -Wound Margin Flat & Intact Distinct, Outline Attached -Granulation Amt Large (67-100%) Medium (34-66%) -Granulation Quality [place] -Slough/Fibrin Yes Yes -Necrosis Amt Small (1-33%) Small (1-33%) -Necrotic Tissue Type Adherent Slough Adherent Slough -Structure Exposed N/A N/A -Texture (Margaret-wound Skin Appearance) Assessed Assessed,Callus -Moisture (Margaret-wound Skin Appearance) Assessed Assessed -Color (Margaret-wound Skin Appearance) Assessed Assessed -Temperature (Margaret-wound Skin No Abnormality No Abnormality Appearance) (Pt Warm) (Pt Warm) -Tenderness on Palpation (Margaret-wound No No Skin Appearance) -Ulcer Cleansing Soap and Water Wound Cleanser -Foul Odor after Cleansing Yes No -Anesthetic Used 4% Lidocaine Solution,5% Lidocaine Gel #1 left heel cluster -Combined with other wound No -Current Size (cm) - Length 2.7 -Current Size (cm) - Width 2.5 -Current Size (cm) - Depth 0.5 -Total Square Cm 6.75 -Photo Taken -Epithelialization None Present -Tunneling No -Undermining/Tunneling No -Circular Undermining No No -Exudate Amt Large Large -Exudate Type Serosanguineous Serosanguineous -Wound Margin Thickened & Distinct, Rolled Under Outline Attached -Granulation Amt Large (67-100%) Medium (34-66%) -Granulation Quality [place] -Slough/Fibrin Yes Yes -Necrosis Amt Small (1-33%) Small (1-33%) -Necrotic Tissue Type Adherent Slough Adherent Slough -Structure Exposed N/A N/A -Texture (Margaret-wound Skin Appearance) Assessed,Callus Callus -Moisture (Margaret-wound Skin Appearance) Assessed, Assessed Maceration -Color (Margaret-wound Skin Appearance) Assessed Assessed -Temperature (Margaret-wound Skin No Abnormality No Abnormality Appearance) (Pt Warm) (Pt Warm) -Tenderness on Palpation (Margaret-wound No No Skin Appearance) -Ulcer Cleansing Soap and Water Wound Cleanser -Foul Odor after Cleansing No No -Anesthetic Used 4% Lidocaine Solution,5% Lidocaine Gel Left Calf (cm) Left Ankle (cm) WC - Nurse 2 - General Ulcer CM Notes Start: 09/17/21 10:08 Freq: Status: Active Protocol: Activity Type Activity Date Activity User E-Sign Co-Sign Detail Recorded Client Recorded Date Recorded By Document 09/19/21 09:20 [id number] 09/19/21 09:27 Edit Result 09/19/21 09:20 JF (1) [id number] 09/20/21 06:49 PL Document 09/26/21 09:31 [id number] 09/26/21 09:41 JF Edit Result 09/26/21 09:31 JF (2) [id number] 10/01/21 10:57 PL Document 10/03/21 09:27 [id number] 10/03/21 09:41 JF (1) #1 left heel cluster - Debridement - Subq, 1st 20sq cm Yes => No (2) 4-left plantar arch - Type of Offloading Camwalker => Total Contact Cast => (TCC) - Left ($) 09/19/21 09/26/21 10/03/21 09:20 09:31 09:27 Wound Center Nurse 2 4-left plantar arch -Time 09:21 09:34 09:37 -Correct Patient Yes Yes Yes -Correct Side, Site, Position Yes Yes Yes -Correct Procedure Yes Yes Yes -Procedure Performed Yes Yes Yes -Type of Procedure Debridement Debridement Debridement -Clinical Debridement Subcutaneous Subcutaneous Subcutaneous -Tissue Removed Subcutaneous Subcutaneous Subcutaneous -Post Debridement (cm) - Length 3.3 1.2 2.0 -Post Debridement (cm) - Width 3.5 3.1 3.0 -Post Debridement (cm) - Depth 0.3 0.1 0.2 -Total Square (Post) (cm) 11.55 3.72 6.00 -Area of Debridement (cm) - Length 3.3 1.2 2.0 -Area of Debridement (cm) - Width 3.5 3.1 3.0 -Total Square (Area) (cm) 11.55 3.72 6.00 -Tunneling No No No -Undermining/Tunneling No No No -Circular Undermining No No No -Wound/Ulcer Outcome Not Healed Not Healed Not Healed -Ulcer Cleansing Rinsed/ Rinsed/ Rinsed/ Irrigated with Irrigated with Irrigated with Saline Saline Saline -Foul Odor after Cleansing No No No -Bioengineered Tissue No No No -Bleeding Controlled with Pressure Pressure -Treatment Response Procedure Procedure Procedure Tolerated Well Tolerated Well Tolerated Well -Offloading No Yes Yes -Type of Offloading Total Contact Total Contact Cast (TCC) - Cast (TCC) - Left ($) Left ($) -Debridement - Subq, 1st 20sq cm Yes No No #1 left heel cluster -Time 09:25 09:34 09:34 -Correct Patient Yes Yes Yes -Correct Side, Site, Position Yes Yes Yes -Correct Procedure Yes Yes Yes -Procedure Performed Yes Yes Yes -Type of Procedure Debridement Debridement Debridement -Clinical Debridement Subcutaneous Subcutaneous Subcutaneous -Tissue Removed Subcutaneous Subcutaneous Subcutaneous -Post Debridement (cm) - Length 2.4 2.6 2.7 -Post Debridement (cm) - Width 2.5 2.1 2.5 -Post Debridement (cm) - Depth 0.5 1.0 0.5 -Total Square (Post) (cm) 6.00 5.46 6.75 -Area of Debridement (cm) - Length 2.4 2.6 2.7 -Area of Debridement (cm) - Width 2.5 2.1 2.5 -Total Square (Area) (cm) 6.00 5.46 6.75 -Tunneling No No No -Undermining/Tunneling No No No -Circular Undermining No No No -Wound/Ulcer Outcome Not Healed Not Healed Not Healed -Ulcer Cleansing Rinsed/ Rinsed/ Rinsed/ Irrigated with Irrigated with Irrigated with Saline Saline Saline -Foul Odor after Cleansing No No No -Bioengineered Tissue No No No -Bleeding Controlled with Pressure Pressure Pressure -Treatment Response Procedure Procedure Procedure Tolerated Well Tolerated Well Tolerated Well -Offloading Yes Yes No -Type of Offloading Total Contact Camwalker Cast (TCC) - Left ($) -Debridement - Subq, 1st 20sq cm No Yes Yes Pain Scale: 0-10 Numeric Is Patient Pain Free? Yes Yes Yes WC - Nurse 3 - General Ulcer D/C NN Start: 09/17/21 10:08 Freq: Status: Active Protocol: Activity Type Activity Date Activity User E-Sign Co-Sign Detail Recorded Client Recorded Date Recorded By Document 09/17/21 13:06 JF [id number] 09/17/21 13:08 Edit Result 09/17/21 13:06 JF (1) [id number] 09/17/21 13:08 JF Document 09/19/21 09:31 [id number] 09/19/21 09:34 RB Document 09/24/21 08:55 [facility] [id number] 09/24/21 08:58 [facility] Document 09/26/21 10:01 RB [id number] 09/26/21 10:03 RB Document 10/01/21 11:00 [id number] 10/01/21 11:04 JF (1) Margaret-Wound Care => Barrier Other/Comment => betadine to => periulcer to both => ulcers 09/17/21 09/19/21 09/24/21 13:06 09:31 08:55 Wound Care Nurse 3 4-left plantar arch -Ulcer Cleansing Rinsed/ Soap and Water Irrigated with Saline -Foul Odor after Cleansing No No -Primary Dressing Applied Optilok 6.5x10, Fibracol Plus Optilok 6.5x10, Silvercel 4x4,Optilok 6. Silvercel,Other 5x10 -Other Dressing betadine to betadine paint peiulcer and margaret wound primary layer TCC applied -Primary Dressing Covered/Secured with Dry Gauze & Dry Gauze & Roll Gauze, Roll Gauze, Secured with Secured with Tape Tape -Other Covering drsg per [place] diabetes education coordinator -Fibracol Plus 4x4 1 -Optilok 6.5x10 1 1 2 -Silvercel 0 1 #1 left heel cluster -Ulcer Cleansing Rinsed/ Soap and Water Irrigated with Saline -Foul Odor after Cleansing No -Primary Dressing Applied Optilok 6.5x10, Optilok 6.5x10 Optilok 6.5x10, Silvercel Silvercel -Other Dressing fibracol pluus betadine paint to ulcer an to margaret wound betadine to peiulcer -Primary Dressing Covered/Secured with Dry Gauze & Dry Gauze & Roll Gauze, Roll Gauze, Secured with Secured with Tape Tape -Other Covering drsg per [place] diabetes education coordinator -Optilok 6.5x10 1 1 0 -Silvercel 1 0 Margaret-Wound Care Barrier Other/Comment betadine to periulcer to both ulcers Left -Lotion applied to leg before compression wrap -Compression Wrap Kevin Wrap Kevin Wrap -Other Treatment Response Procedure Procedure Tolerated Well Tolerated Well Vital Signs Temperature (97.8 F-99.1 F) 96.5 F L Temperature Source Temporal Pulse Rate (60-100) 60 Pulse Location Monitor Respiratory Rate (12-18) 16 Respiratory rate source Observation Oxygen Delivery Method Room Air Blood Pressure (90/60-120/80) 137/58 H Blood Pressure Mean (mm Hg) 84 Source Monitor Position Sitting Blood Pressure Location Left Arm Pain Scale: 0-10 Numeric Is Patient Pain Free? Yes No Yes LEFT PLANTAR HEEL -Description -Intensity -Duration (hours) -Pain Behavior -Pain Aggravating Factors -Alleviating Factors/Interventions LLE -Description Aching -Intensity 5 -Pain Behavior Withdrawal from Touch -Pain Aggravating Factors Exercise/ Activity, Standing -Alleviating Factors/Interventions Medication -Effectiveness of Alleviating Factor/ Moderately Intervention effective WC - Visit Discharge Discharge Condition Stable Stable Stable Ambulatory Status Ambulatory, Wheelchair Wheelchair Wheelchair Transportation Private Auto Private Auto Private Auto Medication Reconcilliation completed & Yes No provided to patient/care provider Clinical Summary of Care Provided Yes Yes 09/26/21 10/01/21 10:01 11:00 Wound Care Nurse 3 4-left plantar arch -Ulcer Cleansing Rinsed/ Irrigated with Saline -Foul Odor after Cleansing No -Primary Dressing Applied Silvercel Optilok 6.5x10, Silvercel -Other Dressing abd nurses hat BETADINE TO MARGARET-ULCER -Primary Dressing Covered/Secured with Dry Gauze,Dry Gauze & Roll Gauze,Secured with Tape -Other Covering -Fibracol Plus 4x4 -Optilok 6.5x10 1 -Silvercel 1 1 #1 left heel cluster -Ulcer Cleansing Soap and Water -Foul Odor after Cleansing -Primary Dressing Applied Optilok 6.5x10, Silvercel -Other Dressing silvercel BETADINE TO MARGARET-ULCER -Primary Dressing Covered/Secured with Dry Gauze,Dry Dry Gauze & Gauze & Roll Roll Gauze Gauze,Secured with Tape -Other Covering -Optilok 6.5x10 1 -Silvercel 0 Margaret-Wound Care Other/Comment Left -Lotion applied to leg before Yes compression wrap -Compression Wrap Kevin Wrap -Other kevin Treatment Response Procedure Tolerated Well Vital Signs Temperature (97.8 F-99.1 F) 97.4 F L Temperature Source Temporal Pulse Rate (60-100) 68 Pulse Location Monitor Respiratory Rate (12-18) 16 Respiratory rate source Observation Oxygen Delivery Method Blood Pressure (90/60-120/80) 111/53 L Blood Pressure Mean (mm Hg) 72 Source Monitor Position Semi-Fowlers Blood Pressure Location Left Forearm Pain Scale: 0-10 Numeric Is Patient Pain Free? Yes No LEFT PLANTAR HEEL -Description Sharp -Intensity 5 -Duration (hours) Acute -Pain Behavior Facial Grimacing -Pain Aggravating Factors ADL's,Changing Position, Walking -Alleviating Factors/Interventions Inactivity/ Resting, Emotional Support LLE -Description -Intensity -Pain Behavior -Pain Aggravating Factors -Alleviating Factors/Interventions -Effectiveness of Alleviating Factor/ Intervention WC - Visit Discharge Discharge Condition Stable Stable Ambulatory Status Wheelchair Walker, Wheelchair Transportation mclain Private Auto Medication Reconcilliation completed & No provided to patient/care provider Clinical Summary of Care Provided Yes Assessment/Plan Assessment/Plan (1) Non-pressure chronic ulcer of left heel and midfoot with fat layer exposed: CODE(S): L97.422 - Non-pressure chronic ulcer of left heel and midfoot with fat layer exposed (2) Ulcer of left foot with necrosis of muscle: CODE(S): L97.523 - Non-pressure chronic ulcer of other part of left foot with necrosis of muscle (3) Maceration of skin: CODE(S): L98.8 - Other specified disorders of the skin and subcutaneous tissue (4) Localized edema: CODE(S): R60.0 - Localized edema (5) Diabetes mellitus: CODE(S): E11.9 - Type 2 diabetes mellitus without complications (6) Type 2 diabetes mellitus with diabetic polyneuropathy: CODE(S): E11.42 - Type 2 diabetes mellitus with diabetic polyneuropathy QUALIFIERS: Diabetes mellitus nursing home insulin use: with terminal carman use Qualified Code(s): E11.42 - Type 2 diabetes mellitus with diabetic polyneuropathy; 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 (7) Diabetic foot ulcer: CODE(S): E11.621 - Type 2 diabetes mellitus with foot ulcer; L97.509 - Non-pressure chronic ulcer of other part of unspecified foot with unspecified severity QUALIFIERS: Diabetes mellitus type: type 2 Diabetic foot ulcer location: heel Laterality: left Non-pressure ulcer stage: with fat layer exposed Qualified Code(s): E11.621 - Type 2 diabetes mellitus with foot ulcer; L97.422 - Non-pressure chronic ulcer of left heel and midfoot with fat layer exposed (8) Tobacco abuse: CODE(S): Z72.0 - Tobacco use (9) Cellulitis of left lower limb: CODE(S): L03.116 - Cellulitis of left lower limb PLAN: Patient seen and examined. I reviewed and discussed his case. Debridement was performed as noted in the clinical nursing panel. Dressing recommendation: silvercel was applied to wound bed with peripheral Betadine wet-to-dry gauze to the maceration sites with additional superabsorption secondary dressing prior to total contact cast application today. Will return Friday for removal. Patient wound is noted to have improved with healthier appearance and there is no malodor. There are no local signs infection noted today. He was seen by infectious disease during his last hospital admission and he had surgery on 05-29-2021. His surgical cultures had MRSA, Enterococcus, klebs, Proteus and it was down to deep tissue. He completed a 2-week course of IV vancomycin and Unasyn and then followed up with 4 weeks of oral doxycycline and Augmentin with a stop date of 07-10-21. Due to consistent increase in pain, I recommend culture (aerobic, anaerobic, mrsa pcr) to see if contamination, biofilm, or infection is noted. Also updated left foot xrays were ordered. Offloading: He is amendable to have a total contact cast applied today and verbal consent was obtained. This was applied according to standard protocol in a neutral position a well-padded manner. He tolerated this well. To keep clean, dry, and intact until follow-up visit on Friday once the cast will be removed. Patient relates he had follow-up appointment with his primary care provider, Priyanka Brown, and relates that she did not change any medication and stated he was doing okay. PCP is leaving the diabetes management up to his heel stainer, Dr. Mykel Barraza. He was able to follow-up and recommendations were updated. Edema management: Medical management per primary care. To reduce salt in diet. Total contact cast will also aide in edema reduction. Arterial studies were reviewed. Showing likely adequate perfusion for healing. Right LAI is 0.99 and left 1.18. Right toe brachial index 0.76 and left 0.71. Referral to Dr. Campos for potential venous and arterial intervention was provided today. He went for consultationon 04-11-21. Will recheck duplex to make sure normal posterior tibial flow into the area of the wound. normal prior LAI noted. Host factors: His multiple comorbidities are noted including diabetes and smoking history. Also recommend improvement in nutritional status which involves taking in adequate protein and also focusing on eating 5-10 whole foods daily. All questions answered. He understands below-knee amputation is an option as well if he cannot keep pressure off the site, if pain becomes intolerable, and if he no longer is able to proceed with a comprehensive wound healing plan. He defers at this time. Patient to follow up in 1 week or call sooner if status worsening or if questions. I answered all of his questions. This note was generated with [employer] dictation software. It may contain incorrect words, spelling, and punctuation that were not noted in checking the note before signing. 31 minutes was spent on this encounter. This included both face to face and non face to face care, which includes but not limited to time preparing for the visit (which includes but not limited to reviewing medical record, any pertinent paperwork, as well as previous imaging and/or test results), reviewing/obtaining the noted history, performing the noted examination, counseling and providing education to the patient as well as to patient's family and/or patient caregivers per patient request. This also includes ordering any medication(s), test(s), and/or procedure(s) as indicated and as documented in the medical record, interpreting / sharing this information when indicated (and with patient's permission) as documented, communicating with other healthcare providers as needed/as requested, the time documenting information in the medical record, as well as any further care coordination. The medical decision making level is moderate based on data including at least three of the following: review of prior external notes, review of a test, ordering a test, assessment requiring an independent historian.
--- NOTE | 2021-10-03 11:00 | RAD_ITS ---
STUDY: X-RAY - LEFT FOOT CLINICAL: Male, 65 years old. ULCER TECHNIQUE: view(s) of the foot. COMPARISON: None. FINDINGS: Normal talus, calcaneus, and tarsal bones. Normal visualized subtalar, talonavicular, calcaneocuboid, tarsal and tarsometatarsal articulations. Normal metatarsi. Normal metatarsophalangeal joint of the great toe. Normal tibial and fibular sesamoid bones. Normal interphalangeal joint of the great toe. Normal phalanges of the great toe. Normal second through fifth metatarsophalangeal joints. Normal interphalangeal joints and phalanges of the lesser toes. There is an ulcer over the os calcis. RAD/Foot min 3 Views IMPRESSION: There is an ulcer at the os calcis. Electronically Signed: Philippe Patterson MD at 0:36 EDT ,
[2021-10-03 14:46] LABS: M R Staph aureus DNA By PCR POSITIVE (Negative); Probe Check PASS; Staph aureus DNA By PCR POSITIVE (Negative)
[2021-10-05 11:26] VITALS: BP 109/61; PULSE 62; RESP 18; TEMP 36.2; BMI 33.7
--- NOTE | 2021-10-05 11:59 | PCM.WC.PN ---
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 A limb and life-threatening infection which required emergent surgical intervention on 05-29-2021. He then subsequently resided in the transitional care unit for wound care which he completed a course of IV antibiotics. He changed his dressing as advised and there is reduced moisture. He denies fever, chill, nausea, vomiting, pain, odor, redness. He is keeping weight off of his foot he reports. He reports he seems to do better when he takes a break from total contact cast of the couple days a week to make sure the ulcer site is cleaned up very well. Progress of Wound: Courtesy visit for application of TCC today for Dr. Chapman. Patient has had increased pain in his left foot, and Dr. Chapman is starting him on antibiotics. The TCC cast seems to improve his pain by offloading the foot wound. Objective Data Objective Data Vital Signs: Vital Signs Temp Pulse Resp BP 97.1 F L 62 18 109/61 10/05/21 11:26 10/05/21 11:26 10/05/21 11:26 10/05/21 11:26 Oxygen Delivery Method Room Air Body Mass Index (BMI) 33.7 Lab / Micro Data Labs: Laboratory Results - last 24 hr 10/03/21 09:30: S.aureus Protein A PCR POSITIVE H, MRSA (PCR) POSITIVE H Micro: Microbiology 10/03/21 09:30 Wound Abcess - Left Foot Gram Stain - Final 10/03/21 09:30 Wound Abcess - Left Foot Wound Culture - Preliminary Staphylococcus aureus Gram negative baljit Gram positive baljit Charges/Coding Procedures Integumentary [id number]: Other Procedure See Report ([id number] TCC Application) Physical Exam Narrative Const alert and no apparent distress General Appearance: cooperative and comfortable Extremity There is diffuse left foot/ankle and leg swelling. General Extremity: Negative for clubbing or cyanosis to digits. Skin Skin Narrative: Wound Narrative: Neuro Neuro Narrative: Debridement Note Debridement Note No debridement was completed: No debridement was completed today Post-Debridement Measurements and Additional Note: Post-Debridement Measurements/Treatment JANESSA - Nurse 1 - General Ulcer Assessment Start: 09/17/21 10:08 Freq: Status: Active Protocol: WC.LOWEXT Activity Type Activity Date Activity User E-Sign Co-Sign Detail Recorded Client Recorded Date Recorded By Document 09/17/21 10:08 KR [id number] 09/17/21 10:15 KR Document 09/19/21 09:01 DL [id number] 09/19/21 09:12 DL Document 09/24/21 08:55 BMF [id number] 09/24/21 08:58 BMF Document 09/26/21 09:11 DL [id number] 09/26/21 09:20 DL Document 10/01/21 11:00 JF [id number] 10/01/21 11:04 JF Document 10/03/21 09:12 RB [id number] 10/03/21 09:19 RB Document 10/05/21 11:26 JF [id number] 10/05/21 11:32 JF 09/17/21 09/19/21 09/24/21 10:08 09:01 08:55 WC - Today's Visit Information Type of service Follow-up Visit Follow-up Visit Nurse-only (Physician/AMMONIUM NITRATE NEUTRALIZER (Physician/AMMONIUM NITRATE NEUTRALIZER Visit ) ) Arrival Mode Wheelchair Wheelchair Wheelchair Transfer Assistance Manual Other Transfer Assist (Other) x2 stand by Patient Identification Verified (Name & Yes Yes Yes ) Patient Requires Transmission-Based No No Precautions Safety Precautions Finger Stick Blood Sugar(mg/dl) (if indicated): Blood Sugar Height and Weight Body Mass Index (BMI) 33.7 33.7 33.7 BMI Classification Obese Obese Obese Vital Signs Temperature (97.8 F-99.1 F) 97.5 F L 97.7 F L 96.5 F L Temperature Source Temporal Temporal Temporal Pulse Rate (60-100) 60 65 60 Pulse Location Monitor Monitor Monitor Respiratory Rate (12-18) 18 16 Respiratory rate source Observation Observation Oxygen Delivery Method Room Air Blood Pressure (90/60-120/80) 108/49 L 132/66 H 137/58 H Blood Pressure Mean (mm Hg) 68 88 84 Source Monitor Monitor Monitor Position Sitting Sitting Sitting Blood Pressure Location Right Arm Right Forearm Left Arm History Since Last Visit- (Skip if this is Patient's initial visit) Have you changed medications since your No No No last visit? Any new allergies or adverse reactions No No No Had a fall/change in ADL's that may No No increase risk of falls Signs or symptoms of abuse and/or No No No neglect since last visit Have you been in the hospital since your No No No last visit? Has dressing in place as prescribed Yes Yes Yes Has compression in place as prescribed N/A No N/A Has offloadiing in place as prescribed Yes Yes Yes Experienced any changes in pain level or No No No management Left Footwear Total Contact Regular Shoe Total Contact Cast Cast Right Footwear Regular Shoe Surgical Shoe Regular Shoe with pressure relief insole Pain Scale: 0-10 Numeric Is Patient Pain Free? Yes Yes Yes LEFT PLANTAR HEEL -Description -Intensity -Duration (hours) -Pain Behavior -Pain Aggravating Factors -Alleviating Factors/Interventions -Effectiveness of Alleviating Factor/ Intervention 09/26/21 10/01/21 10/03/21 09:11 11:00 09:12 WC - Today's Visit Information Type of service Follow-up Visit Nurse-only Follow-up Visit (Physician/AMMONIUM NITRATE NEUTRALIZER Visit (Physician/AMMONIUM NITRATE NEUTRALIZER ) ) Arrival Mode Wheelchair Walker, Wheelchair Wheelchair Transfer Assistance Manual Manual Transfer Assist (Other) x1 Patient Identification Verified (Name & Yes Yes ) Patient Requires Transmission-Based No Yes No Precautions Safety Precautions Fall Prevention Finger Stick Blood Sugar(mg/dl) (if 126 indicated): Blood Sugar Stated by Patient Height and Weight Body Mass Index (BMI) 33.7 33.7 33.7 BMI Classification Obese Obese Obese Vital Signs Temperature (97.8 F-99.1 F) 97.9 F 97.4 F L 97 F L Temperature Source Temporal Temporal Temporal Pulse Rate (60-100) 59 L 68 66 Pulse Location Monitor Monitor Monitor Respiratory Rate (12-18) 20 H 16 18 Respiratory rate source Observation Observation Observation Oxygen Delivery Method Blood Pressure (90/60-120/80) 129/64 H 111/53 L 126/88 H Blood Pressure Mean (mm Hg) 85 72 100 Source Monitor Monitor Monitor Position Semi-Fowlers Semi-Fowlers Blood Pressure Location Left Forearm Left Arm History Since Last Visit- (Skip if this is Patient's initial visit) Have you changed medications since your No No last visit? Any new allergies or adverse reactions No No Had a fall/change in ADL's that may No No increase risk of falls Signs or symptoms of abuse and/or No No neglect since last visit Have you been in the hospital since your No No last visit? Has dressing in place as prescribed Yes Yes Has compression in place as prescribed N/A No Has offloadiing in place as prescribed Yes No Experienced any changes in pain level or No No management Left Footwear Removable Cast Regular Shoe Removable Cast Walker/Walking Walker/Walking Boot Boot Right Footwear Regular Shoe Regular Shoe Pain Scale: 0-10 Numeric Is Patient Pain Free? Yes No No LEFT PLANTAR HEEL -Description Sharp Sharp -Intensity 5 7 -Duration (hours) Acute Acute -Pain Behavior Facial Guarding Grimacing -Pain Aggravating Factors ADL's,Changing Exercise/ Position, Activity Walking -Alleviating Factors/Interventions Inactivity/ Medication Resting, Emotional Support -Effectiveness of Alleviating Factor/ Minimally Intervention effective 10/05/21 11:26 WC - Today's Visit Information Type of service Follow-up Visit (Physician/AMMONIUM NITRATE NEUTRALIZER ) Arrival Mode Ambulatory, Wheelchair Transfer Assistance Transfer Assist (Other) Patient Identification Verified (Name & Yes ) Patient Requires Transmission-Based No Precautions Safety Precautions Finger Stick Blood Sugar(mg/dl) (if indicated): Blood Sugar Height and Weight Body Mass Index (BMI) 33.7 BMI Classification Obese Vital Signs Temperature (97.8 F-99.1 F) 97.1 F L Temperature Source Temporal Pulse Rate (60-100) 62 Pulse Location Monitor Respiratory Rate (12-18) 18 Respiratory rate source Observation Oxygen Delivery Method Blood Pressure (90/60-120/80) 109/61 Blood Pressure Mean (mm Hg) 77 Source Monitor Position Semi-Fowlers Blood Pressure Location Left Forearm History Since Last Visit- (Skip if this is Patient's initial visit) Have you changed medications since your last visit? Any new allergies or adverse reactions Had a fall/change in ADL's that may increase risk of falls Signs or symptoms of abuse and/or neglect since last visit Have you been in the hospital since your last visit? Has dressing in place as prescribed Has compression in place as prescribed Has offloadiing in place as prescribed Experienced any changes in pain level or management Left Footwear Total Contact Cast Right Footwear Regular Shoe Pain Scale: 0-10 Numeric Is Patient Pain Free? Yes LEFT PLANTAR HEEL -Description -Intensity -Duration (hours) -Pain Behavior -Pain Aggravating Factors -Alleviating Factors/Interventions -Effectiveness of Alleviating Factor/ Intervention WC - Nurse 1 - General Ulcer Measurement Start: 09/17/21 10:08 Freq: Status: Active Protocol: Activity Type Activity Date Activity User E-Sign Co-Sign Detail Recorded Client Recorded Date Recorded By Document 09/17/21 10:08 KR [id number] 09/17/21 10:15 KR Document 09/19/21 09:01 DL [id number] 09/19/21 09:12 DL Document 09/26/21 09:11 DL [id number] 09/26/21 09:20 DL Document 10/01/21 11:00 JF [id number] 10/01/21 11:04 JF Document 10/03/21 09:12 RB [id number] 10/03/21 09:19 RB Document 10/05/21 11:26 JF [id number] 10/05/21 11:32 JF 09/17/21 09/19/21 09/26/21 10:08 09:01 09:11 Wound Center Nurse 1 4-left plantar arch -Combined with other wound No -Current Size (cm) - Length 6.8 2.3 1.1 -Current Size (cm) - Width 3.6 3.3 3.1 -Current Size (cm) - Depth 0.2 0.1 0.1 -Total Square Cm 24.48 7.59 3.41 -Photo Taken No -Tunneling No -Undermining/Tunneling No -Circular Undermining No -Exudate Amt Large Large Large -Exudate Type Serosanguineous Serosanguineous Serosanguineous -Wound Margin Distinct, Distinct, Thickened Outline Outline Attached Attached -Granulation Amt Large (67-100%) Medium (34-66%) Small (1-33%) -Granulation Quality [place] -Slough/Fibrin -Necrosis Amt Large (67-100%) Medium (34-66%) Small (1-33%) -Necrotic Tissue Type Adherent Slough Adherent Slough Adherent Slough -Structure Exposed N/A N/A -Texture (Margaret-wound Skin Appearance) Assessed,Callus Assessed,Callus Scarring ,Scarring -Moisture (Margaret-wound Skin Appearance) Assessed, Assessed, Maceration Maceration Maceration -Color (Margaret-wound Skin Appearance) No Abnormality, Assessed Hemosiderin Assessed Staining -Temperature (Margaret-wound Skin No Abnormality No Abnormality No Abnormality Appearance) (Pt Warm) (Pt Warm) (Pt Warm) -Tenderness on Palpation (Margaret-wound No No No Skin Appearance) -Ulcer Cleansing Soap and Water Wound Cleanser Soap and Water -Foul Odor after Cleansing No No No -Anesthetic Used 4% Lidocaine 4% Lidocaine 5% Lidocaine Solution,5% Solution Gel Lidocaine Gel #1 left heel cluster -Combined with other wound No -Current Size (cm) - Length 2.3 2.5 2.6 -Current Size (cm) - Width 2.4 2.2 2 -Current Size (cm) - Depth 0.5 0.9 1 -Total Square Cm 5.52 5.50 5.2 -Photo Taken No -Epithelialization -Tunneling No -Undermining/Tunneling No -Circular Undermining No -Exudate Amt Large Large Large -Exudate Type Serosanguineous Serosanguineous -Wound Margin Distinct, Distinct, Outline Outline Attached Attached -Granulation Amt Large (67-100%) Medium (34-66%) Large (67-100%) -Granulation Quality [place] Red -Slough/Fibrin Yes -Necrosis Amt Large (67-100%) Small (1-33%) Small (1-33%) -Necrotic Tissue Type Adherent Slough Adherent Slough -Structure Exposed N/A N/A -Texture (Margaret-wound Skin Appearance) Assessed,Callus Callus Scarring ,Scarring -Moisture (Margaret-wound Skin Appearance) Assessed, Assessed, Maceration Maceration Maceration -Color (Margaret-wound Skin Appearance) No Abnormality, Assessed Hemosiderin Assessed Staining -Temperature (Margaret-wound Skin No Abnormality No Abnormality No Abnormality Appearance) (Pt Warm) (Pt Warm) (Pt Warm) -Tenderness on Palpation (Margaret-wound No No No Skin Appearance) -Ulcer Cleansing Rinsed/ Wound Cleanser Soap and Water Irrigated with Saline -Foul Odor after Cleansing No No No -Anesthetic Used 4% Lidocaine 4% Lidocaine 5% Lidocaine Solution,5% Solution Gel Lidocaine Gel -Wound Comment(s) Left Calf (cm) 49 44.2 Left Ankle (cm) 28.8 27 10/01/21 10/03/21 10/05/21 11:00 09:12 11:26 Wound Center Nurse 1 4-left plantar arch -Combined with other wound No -Current Size (cm) - Length 3.5 -Current Size (cm) - Width 2.4 -Current Size (cm) - Depth 0.1 -Total Square Cm 8.40 -Photo Taken -Tunneling No -Undermining/Tunneling No -Circular Undermining No -Exudate Amt Medium Large -Exudate Type Serosanguineous Serosanguineous -Wound Margin Flat & Intact Distinct, Outline Attached -Granulation Amt Large (67-100%) Medium (34-66%) -Granulation Quality [place] -Slough/Fibrin Yes Yes -Necrosis Amt Small (1-33%) Small (1-33%) -Necrotic Tissue Type Adherent Slough Adherent Slough -Structure Exposed N/A N/A -Texture (Margaret-wound Skin Appearance) Assessed Assessed,Callus -Moisture (Margaret-wound Skin Appearance) Assessed Assessed -Color (Margaret-wound Skin Appearance) Assessed Assessed -Temperature (Margaret-wound Skin No Abnormality No Abnormality Appearance) (Pt Warm) (Pt Warm) -Tenderness on Palpation (Margaret-wound No No Skin Appearance) -Ulcer Cleansing Soap and Water Wound Cleanser Soap and Water -Foul Odor after Cleansing Yes No -Anesthetic Used 4% Lidocaine Solution,5% Lidocaine Gel #1 left heel cluster -Combined with other wound No -Current Size (cm) - Length 2.7 -Current Size (cm) - Width 2.5 -Current Size (cm) - Depth 0.5 -Total Square Cm 6.75 -Photo Taken -Epithelialization None Present -Tunneling No -Undermining/Tunneling No -Circular Undermining No No -Exudate Amt Large Large -Exudate Type Serosanguineous Serosanguineous -Wound Margin Thickened & Distinct, Rolled Under Outline Attached -Granulation Amt Large (67-100%) Medium (34-66%) -Granulation Quality [place] -Slough/Fibrin Yes Yes -Necrosis Amt Small (1-33%) Small (1-33%) -Necrotic Tissue Type Adherent Slough Adherent Slough -Structure Exposed N/A N/A -Texture (Margaret-wound Skin Appearance) Assessed,Callus Callus -Moisture (Margaret-wound Skin Appearance) Assessed, Assessed Maceration -Color (Margaret-wound Skin Appearance) Assessed Assessed -Temperature (Margaret-wound Skin No Abnormality No Abnormality Appearance) (Pt Warm) (Pt Warm) -Tenderness on Palpation (Margaret-wound No No Skin Appearance) -Ulcer Cleansing Soap and Water Wound Cleanser Soap and Water -Foul Odor after Cleansing No No -Anesthetic Used 4% Lidocaine Solution,5% Lidocaine Gel -Wound Comment(s) Patient has complained about left heel pain. Ulcers are cleaned and stable. Dr Chapman notified regarding follow up on xray and wound cultures. Orders for Doxycycline and Augmentin sent to [facility] and patient was notified. New TCC applied today by Ida per patient's request. Left Calf (cm) Left Ankle (cm) WC - Nurse 2 - General Ulcer CM Notes Start: 09/17/21 10:08 Freq: Status: Active Protocol: Activity Type Activity Date Activity User E-Sign Co-Sign Detail Recorded Client Recorded Date Recorded By Document 09/19/21 09:20 [id number] 09/19/21 09:27 JF Edit Result 09/19/21 09:20 JF (1) [id number] 09/20/21 06:49 PL Document 09/26/21 09:31 JF [id number] 09/26/21 09:41 JF Edit Result 09/26/21 09:31 JF (2) [id number] 10/01/21 10:57 PL Document 10/03/21 09:27 JF [id number] 10/03/21 09:41 JF Document 10/05/21 11:26 JF [id number] 10/05/21 11:32 JF (1) #1 left heel cluster - Debridement - Subq, 1st 20sq cm Yes => No (2) 4-left plantar arch - Type of Offloading Camwalker => Total Contact Cast => (TCC) - Left ($) 09/19/21 09/26/21 10/03/21 09:20 09:31 09:27 Wound Center Nurse 2 4-left plantar arch -Time 09:21 09:34 09:37 -Correct Patient Yes Yes Yes -Correct Side, Site, Position Yes Yes Yes -Correct Procedure Yes Yes Yes -Procedure Performed Yes Yes Yes -Type of Procedure Debridement Debridement Debridement -Clinical Debridement Subcutaneous Subcutaneous Subcutaneous -Tissue Removed Subcutaneous Subcutaneous Subcutaneous -Post Debridement (cm) - Length 3.3 1.2 2.0 -Post Debridement (cm) - Width 3.5 3.1 3.0 -Post Debridement (cm) - Depth 0.3 0.1 0.2 -Total Square (Post) (cm) 11.55 3.72 6.00 -Area of Debridement (cm) - Length 3.3 1.2 2.0 -Area of Debridement (cm) - Width 3.5 3.1 3.0 -Total Square (Area) (cm) 11.55 3.72 6.00 -Tunneling No No No -Undermining/Tunneling No No No -Circular Undermining No No No -Wound/Ulcer Outcome Not Healed Not Healed Not Healed -Ulcer Cleansing Rinsed/ Rinsed/ Rinsed/ Irrigated with Irrigated with Irrigated with Saline Saline Saline -Foul Odor after Cleansing No No No -Bioengineered Tissue No No No -Bleeding Controlled with Pressure Pressure -Treatment Response Procedure Procedure Procedure Tolerated Well Tolerated Well Tolerated Well -Offloading No Yes Yes -Type of Offloading Total Contact Total Contact Cast (TCC) - Cast (TCC) - Left ($) Left ($) -Debridement - Subq, 1st 20sq cm Yes No No #1 left heel cluster -Time 09:25 09:34 09:34 -Correct Patient Yes Yes Yes -Correct Side, Site, Position Yes Yes Yes -Correct Procedure Yes Yes Yes -Procedure Performed Yes Yes Yes -Type of Procedure Debridement Debridement Debridement -Clinical Debridement Subcutaneous Subcutaneous Subcutaneous -Tissue Removed Subcutaneous Subcutaneous Subcutaneous -Post Debridement (cm) - Length 2.4 2.6 2.7 -Post Debridement (cm) - Width 2.5 2.1 2.5 -Post Debridement (cm) - Depth 0.5 1.0 0.5 -Total Square (Post) (cm) 6.00 5.46 6.75 -Area of Debridement (cm) - Length 2.4 2.6 2.7 -Area of Debridement (cm) - Width 2.5 2.1 2.5 -Total Square (Area) (cm) 6.00 5.46 6.75 -Tunneling No No No -Undermining/Tunneling No No No -Circular Undermining No No No -Wound/Ulcer Outcome Not Healed Not Healed Not Healed -Ulcer Cleansing Rinsed/ Rinsed/ Rinsed/ Irrigated with Irrigated with Irrigated with Saline Saline Saline -Foul Odor after Cleansing No No No -Bioengineered Tissue No No No -Bleeding Controlled with Pressure Pressure Pressure -Treatment Response Procedure Procedure Procedure Tolerated Well Tolerated Well Tolerated Well -Offloading Yes Yes No -Type of Offloading Total Contact Camwalker Cast (TCC) - Left ($) -Debridement - Subq, 1st 20sq cm No Yes Yes Pain Scale: 0-10 Numeric Is Patient Pain Free? Yes Yes Yes 10/05/21 11:26 Wound Center Nurse 2 4-left plantar arch -Time -Correct Patient No -Correct Side, Site, Position No -Correct Procedure No -Procedure Performed No -Type of Procedure -Clinical Debridement -Tissue Removed -Post Debridement (cm) - Length -Post Debridement (cm) - Width -Post Debridement (cm) - Depth -Total Square (Post) (cm) -Area of Debridement (cm) - Length -Area of Debridement (cm) - Width -Total Square (Area) (cm) -Tunneling -Undermining/Tunneling -Circular Undermining -Wound/Ulcer Outcome Not Healed -Ulcer Cleansing -Foul Odor after Cleansing -Bioengineered Tissue -Bleeding Controlled with -Treatment Response -Offloading Yes -Type of Offloading Total Contact Cast (TCC) - Left ($) -Debridement - Subq, 1st 20sq cm #1 left heel cluster -Time -Correct Patient No -Correct Side, Site, Position No -Correct Procedure No -Procedure Performed No -Type of Procedure -Clinical Debridement -Tissue Removed -Post Debridement (cm) - Length -Post Debridement (cm) - Width -Post Debridement (cm) - Depth -Total Square (Post) (cm) -Area of Debridement (cm) - Length -Area of Debridement (cm) - Width -Total Square (Area) (cm) -Tunneling -Undermining/Tunneling -Circular Undermining -Wound/Ulcer Outcome Not Healed -Ulcer Cleansing -Foul Odor after Cleansing -Bioengineered Tissue -Bleeding Controlled with -Treatment Response -Offloading No -Type of Offloading -Debridement - Subq, 1st 20sq cm Pain Scale: 0-10 Numeric Is Patient Pain Free? Yes - Nurse 3 - General Ulcer D/C NN Start: 09/17/21 10:08 Freq: Status: Active Protocol: Activity Type Activity Date Activity User E-Sign Co-Sign Detail Recorded Client Recorded Date Recorded By Document 09/17/21 13:06 DANIEL [id number] 09/17/21 13:08 JF Edit Result 09/17/21 13:06 JF (1) [id number] 09/17/21 13:08 JF Document 09/19/21 09:31 RB [id number] 09/19/21 09:34 RB Document 09/24/21 08:55 [facility] [id number] 09/24/21 08:58 BMF Document 09/26/21 10:01 RB [id number] 09/26/21 10:03 RB Document 10/01/21 11:00 JF [id number] 10/01/21 11:04 JF Document 10/03/21 11:44 RB [id number] 10/03/21 11:46 RB Document 10/05/21 11:25 JF [id number] 10/05/21 11:26 JF (1) Margaret-Wound Care => Barrier Other/Comment => betadine to => periulcer to both => ulcers 09/17/21 09/19/21 09/24/21 13:06 09:31 08:55 Wound Care Nurse 3 4-left plantar arch -Ulcer Cleansing Rinsed/ Soap and Water Irrigated with Saline -Foul Odor after Cleansing No No -Primary Dressing Applied Optilok 6.5x10, Fibracol Plus Optilok 6.5x10, Silvercel 4x4,Optilok 6. Silvercel,Other 5x10 -Other Dressing betadine to betadine paint peiulcer and margaret wound primary layer TCC applied -Primary Dressing Covered/Secured with Dry Gauze & Dry Gauze & Roll Gauze, Roll Gauze, Secured with Secured with Tape Tape -Other Covering drsg per [place] fish net maker -Fibracol Plus 4x4 1 -Optilok 6.5x10 1 1 2 -Silvercel 0 1 #1 left heel cluster -Ulcer Cleansing Rinsed/ Soap and Water Irrigated with Saline -Foul Odor after Cleansing No -Primary Dressing Applied Optilok 6.5x10, Optilok 6.5x10 Optilok 6.5x10, Silvercel Silvercel -Other Dressing fibracol pluus betadine paint to ulcer an to margaret wound betadine to peiulcer -Primary Dressing Covered/Secured with Dry Gauze & Dry Gauze & Roll Gauze, Roll Gauze, Secured with Secured with Tape Tape -Other Covering drsg per [place] fish net maker -Optilok 6.5x10 1 1 0 -Silvercel 1 0 Margaret-Wound Care Barrier Other/Comment betadine to periulcer to both ulcers Left -Lotion applied to leg before compression wrap -Compression Wrap Aayush Wrap Aayush Wrap -Other Treatment Response Procedure Procedure Tolerated Well Tolerated Well Vital Signs Temperature (97.8 F-99.1 F) 96.5 F L Temperature Source Temporal Pulse Rate (60-100) 60 Pulse Location Monitor Respiratory Rate (12-18) 16 Respiratory rate source Observation Oxygen Delivery Method Room Air Blood Pressure (90/60-120/80) 137/58 H Blood Pressure Mean (mm Hg) 84 Source Monitor Position Sitting Blood Pressure Location Left Arm Pain Scale: 0-10 Numeric Is Patient Pain Free? Yes No Yes LEFT PLANTAR HEEL -Description -Intensity -Duration (hours) -Pain Behavior -Pain Aggravating Factors -Alleviating Factors/Interventions LLE -Description Aching -Intensity 5 -Pain Behavior Withdrawal from Touch -Pain Aggravating Factors Exercise/ Activity, Standing -Alleviating Factors/Interventions Medication -Effectiveness of Alleviating Factor/ Moderately Intervention effective WC - Visit Discharge Discharge Condition Stable Stable Stable Ambulatory Status Ambulatory, Wheelchair Wheelchair Wheelchair Transportation Private Auto Private Auto Private Auto Medication Reconcilliation completed & Yes No provided to patient/care provider Clinical Summary of Care Provided Yes Yes 09/26/21 10/01/21 10/03/21 10:01 11:00 11:44 Wound Care Nurse 3 4-left plantar arch -Ulcer Cleansing Rinsed/ Irrigated with Saline -Foul Odor after Cleansing No -Primary Dressing Applied Silvercel Optilok 6.5x10, Silvercel -Other Dressing abd nurses hat BETADINE TO betadine to MARGARET-ULCER periulcer silvercel to wound -Primary Dressing Covered/Secured with Dry Gauze,Dry Gauze & Roll Gauze,Secured with Tape -Other Covering -Fibracol Plus 4x4 -Optilok 6.5x10 1 -Silvercel 1 1 #1 left heel cluster -Ulcer Cleansing Soap and Water -Foul Odor after Cleansing -Primary Dressing Applied Optilok 6.5x10, Silvercel -Other Dressing silvercel BETADINE TO betadine to MARGARET-ULCER margaret ulcer and jesús to wound -Primary Dressing Covered/Secured with Dry Gauze,Dry Dry Gauze & Gauze & Roll Roll Gauze Gauze,Secured with Tape -Other Covering 3 inch TCC primary layer applied -Optilok 6.5x10 1 -Silvercel 0 Margaret-Wound Care Other/Comment Left -Lotion applied to leg before Yes compression wrap -Compression Wrap Aayush Wrap -Other aayush Treatment Response Procedure Procedure Tolerated Well Tolerated Well Vital Signs Temperature (97.8 F-99.1 F) 97.4 F L Temperature Source Temporal Pulse Rate (60-100) 68 Pulse Location Monitor Respiratory Rate (12-18) 16 Respiratory rate source Observation Oxygen Delivery Method Blood Pressure (90/60-120/80) 111/53 L Blood Pressure Mean (mm Hg) 72 Source Monitor Position Semi-Fowlers Blood Pressure Location Left Forearm Pain Scale: 0-10 Numeric Is Patient Pain Free? Yes No Yes LEFT PLANTAR HEEL -Description Sharp -Intensity 5 -Duration (hours) Acute -Pain Behavior Facial Grimacing -Pain Aggravating Factors ADL's,Changing Position, Walking -Alleviating Factors/Interventions Inactivity/ Resting, Emotional Support LLE -Description -Intensity -Pain Behavior -Pain Aggravating Factors -Alleviating Factors/Interventions -Effectiveness of Alleviating Factor/ Intervention WC - Visit Discharge Discharge Condition Stable Stable Stable Ambulatory Status Wheelchair Walker, Wheelchair Wheelchair Transportation van Private Auto Private Auto Medication Reconcilliation completed & No No provided to patient/care provider Clinical Summary of Care Provided Yes Yes 10/05/21 11:25 Wound Care Nurse 3 4-left plantar arch -Ulcer Cleansing Rinsed/ Irrigated with Saline -Foul Odor after Cleansing No -Primary Dressing Applied Optilok 6.5x10, Silvercel -Other Dressing -Primary Dressing Covered/Secured with -Other Covering -Fibracol Plus 4x4 -Optilok 6.5x10 1 -Silvercel 1 #1 left heel cluster -Ulcer Cleansing Wound Cleanser -Foul Odor after Cleansing -Primary Dressing Applied Optilok 6.5x10, Silvercel -Other Dressing -Primary Dressing Covered/Secured with -Other Covering -Optilok 6.5x10 0 -Silvercel 0 Margaret-Wound Care Other/Comment Left -Lotion applied to leg before compression wrap -Compression Wrap -Other Treatment Response Vital Signs Temperature (97.8 F-99.1 F) Temperature Source Pulse Rate (60-100) Pulse Location Respiratory Rate (12-18) Respiratory rate source Oxygen Delivery Method Blood Pressure (90/60-120/80) Blood Pressure Mean (mm Hg) Source Position Blood Pressure Location Pain Scale: 0-10 Numeric Is Patient Pain Free? Yes LEFT PLANTAR HEEL -Description -Intensity -Duration (hours) -Pain Behavior -Pain Aggravating Factors -Alleviating Factors/Interventions LLE -Description -Intensity -Pain Behavior -Pain Aggravating Factors -Alleviating Factors/Interventions -Effectiveness of Alleviating Factor/ Intervention WC - Visit Discharge Discharge Condition Stable Ambulatory Status Wheelchair Transportation Private Auto Medication Reconcilliation completed & Yes provided to patient/care provider Clinical Summary of Care Provided Yes Assessment/Plan Assessment/Plan (1) Non-pressure chronic ulcer of left heel and midfoot with fat layer exposed: CODE(S): L97.422 - Non-pressure chronic ulcer of left heel and midfoot with fat layer exposed (2) Ulcer of left foot with necrosis of muscle: CODE(S): L97.523 - Non-pressure chronic ulcer of other part of left foot with necrosis of muscle (3) Maceration of skin: CODE(S): L98.8 - Other specified disorders of the skin and subcutaneous tissue (4) Localized edema: CODE(S): R60.0 - Localized edema (5) Diabetes mellitus: CODE(S): E11.9 - Type 2 diabetes mellitus without complications (6) Type 2 diabetes mellitus with diabetic polyneuropathy: CODE(S): E11.42 - Type 2 diabetes mellitus with diabetic polyneuropathy QUALIFIERS: Diabetes mellitus digital data analyst insulin use: with digital data analyst use Qualified Code(s): E11.42 - Type 2 diabetes mellitus with diabetic polyneuropathy; Z79.4 - matlab developer (current) use of insulin (7) Diabetic foot ulcer: CODE(S): E11.621 - Type 2 diabetes mellitus with foot ulcer; L97.509 - Non-pressure chronic ulcer of other part of unspecified foot with unspecified severity QUALIFIERS: Diabetic foot ulcer location: heel Diabetes mellitus type: type 2 Laterality: left Non-pressure ulcer stage: with fat layer exposed Qualified Code(s): E11.621 - Type 2 diabetes mellitus with foot ulcer; L97.422 - Non-pressure chronic ulcer of left heel and midfoot with fat layer exposed (8) Tobacco abuse: CODE(S): Z72.0 - Tobacco use PLAN: Patient seen and examined as courtesy visit for TCC application for Dr. Chapman. Dressing recommendation: silvercel was applied to wound bed with peripheral Betadine wet-to-dry gauze to the maceration sites with additional superabsorption secondary dressing prior to total contact cast application today. Will return Friday for removal. Offloading: He is amendable to have a total contact cast applied today and verbal consent was obtained. This was applied according to standard protocol in a neutral position a well-padded manner. He tolerated this well. To keep clean, dry, and intact until follow-up visit on Friday, at which time the cast will be removed. This note was generated with [employer] dictation software. It may contain incorrect words, spelling, and punctuation that were not noted in checking the note before signing.
[2021-10-10 09:21] VITALS: BP 146/72; PULSE 56; RESP 20; TEMP 36.4; BMI 33.7
--- NOTE | 2021-10-10 11:01 | PN.PCM_ITS ---
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 A limb and life-threatening infection which required emergent surgical intervention on 05-29-2021. He then subsequently resided in the transitional care unit for wound care which he completed a course of IV antibiotics. He has been demonstrating improvement with total contact cast applications. He denies fever, chill, nausea, vomiting, pain, odor, redness. He is keeping weight off of his foot he reports. He reports continued pain the past week. He denies redness. He has been taking doxycycline and Augmentin as prescribed. Progress of Wound: Stable with reduced size It is noted that the heel ulcer has new bone exposure Objective Data Objective Data Vital Signs: Vital Signs Temp Pulse Resp BP 97.5 F L 56 L 20 H 146/72 H 10/10/21 09:21 10/10/21 09:21 10/10/21 09:21 10/10/21 09:21 Oxygen Delivery Method Room Air Body Mass Index (BMI) 33.7 Lab / Micro Data Micro: Microbiology 10/03/21 09:30 Wound Abcess - Left Foot Gram Stain - Final 10/03/21 09:30 Wound Abcess - Left Foot Wound Culture - Final Meth. resistant Staph. aureus Enterobacter cloacae complex Corynebacterium striatum Enterococcus faecalis 10/03/21 09:30 Wound Abcess - Left Foot Anaerobic Culture - Final No anaerobic bacteria isolated. Physical Exam Narrative Const alert and no apparent distress General Appearance: cooperative and comfortable Extremity There is diffuse left foot/ankle and leg swelling. Left foot s/p debridement to arch and heel, tissues are healthy and viable, granular. no longer visualized fascia and muscle layer to the arch. positive probe to bone is new to the heel. There is no streaking or odor, compartments remain soft to palpate, there is no fluctuance or bogginess on palpation, no drainage, no visible abscess, no cellulitis, no blistering present. Hematogenous / serosanguineous drainage only upon debridement. Periwound moisture and maceration is has resolved. General Extremity: Negative for clubbing or cyanosis to digits. Vasc normal capillary refill, no acute ischemic skin changes noted, normal temperature bilateral. Skin Skin Narrative: Wound Narrative: Neuro Neuro Narrative: Debridement Note Debridement Note Wound debrided: left: heel, arch Wound Grade/Stage: 3,3 Type of Debridement: Excisional debridement Anesthesia Used: 4% Lidocaine Solution Depth: in the subcutaneous layer Percentage of wound debrided: 100 Instrument Used: #15 blade Tissue Removed: fibrous, devitalized subcutaneous, biofilm, slough Severity: Fat Layer Exposed Amount of bleeding with debridement: Mild Bleeding Controlled with: Pressure Patient tolerated procedure: Patient tolerated procedure well Post-Debridement Measurements and Additional Note: Post-Debridement Measuremen ts/Treatment - Nurse 1 - General Ulcer Assessment Start: 09/17/21 10:08 Freq: Status: Active Protocol: EVELYN Activity Type Activity Date Activity User E-Sign Co-Sign Detail Recorded Client Recorded Date Recorded By Document 09/17/21 10:08 KR [id number] 09/17/21 10:15 KR Document 09/19/21 09:01 DL [id number] 09/19/21 09:12 DL Document 09/24/21 08:[address] [facility] [id number] 09/24/21 08:58 BMF Document 09/26/21 09:11 DL [id number] 09/26/21 09:20 DL Document 10/01/21 11:00 JF [id number] 10/01/21 11:04 JF Document 10/03/21 09:12 RB [id number] 10/03/21 09:19 RB Document 10/05/21 11:26 JF [id number] 10/05/21 11:32 JF Document 10/10/21 09:21 DL [id number] 10/10/21 09:34 DL 09/17/21 09/19/21 09/24/21 10:08 09:01 08:55 - Today's Visit Information Type of service Follow-up Visit Follow-up Visit Nurse-only (Physician/BUNCH BREAKER MACHINE OPERATOR (Physician/BUNCH BREAKER MACHINE OPERATOR Visit ) ) Arrival Mode Wheelchair Wheelchair Wheelchair Transfer Assistance Manual Other Transfer Assist (Other) x2 stand by Patient Identification Verified (Name & Yes Yes Yes ) Patient Requires Transmission-Based No No Precautions Safety Precautions Finger Stick Blood Sugar(mg/dl) (if indicated): Blood Sugar Height and Weight Body Mass Index (BMI) 33.7 33.7 33.7 BMI Classification Obese Obese Obese Vital Signs Temperature (97.8 F-99.1 F) 97.5 F L 97.7 F L 96.5 F L Temperature Source Temporal Temporal Temporal Pulse Rate (60-100) 60 65 60 Pulse Location Monitor Monitor Monitor Respiratory Rate (12-18) 18 16 Respiratory rate source Observation Observation Oxygen Delivery Method Room Air Blood Pressure (90/60-120/80) 108/49 L 132/66 H 137/58 H Blood Pressure Mean (mm Hg) 68 88 84 Source Monitor Monitor Monitor Position Sitting Sitting Sitting Blood Pressure Location Right Arm Right Forearm Left Arm History Since Last Visit- (Skip if this is Patient's initial visit) Have you changed medications since your No No No last visit? Any new allergies or adverse reactions No No No Had a fall/change in ADL's that may No No increase risk of falls Signs or symptoms of abuse and/or No No No neglect since last visit Have you been in the hospital since your No No No last visit? Has dressing in place as prescribed Yes Yes Yes Has compression in place as prescribed N/A No N/A Has offloadiing in place as prescribed Yes Yes Yes Experienced any changes in pain level or No No No management Left Footwear Total Contact Regular Shoe Total Contact Cast Cast Right Footwear Regular Shoe Surgical Shoe Regular Shoe with pressure relief insole Pain Scale: 0-10 Numeric Is Patient Pain Free? Yes Yes Yes LEFT PLANTAR HEEL -Description -Intensity -Duration (hours) -Pain Behavior -Pain Aggravating Factors -Alleviating Factors/Interventions -Effectiveness of Alleviating Factor/ Intervention 09/26/21 10/01/21 10/03/21 09:11 11:00 09:12 - Today's Visit Information Type of service Follow-up Visit Nurse-only Follow-up Visit (Physician/BUNCH BREAKER MACHINE OPERATOR Visit (Physician/BUNCH BREAKER MACHINE OPERATOR ) ) Arrival Mode Wheelchair Walker, Wheelchair Wheelchair Transfer Assistance Manual Manual Transfer Assist (Other) x1 Patient Identification Verified (Name & Yes Yes ) Patient Requires Transmission-Based No Yes No Precautions Safety Precautions Fall Prevention Finger Stick Blood Sugar(mg/dl) (if 126 indicated): Blood Sugar Stated by Patient Height and Weight Body Mass Index (BMI) 33.7 33.7 33.7 BMI Classification Obese Obese Obese Vital Signs Temperature (97.8 F-99.1 F) 97.9 F 97.4 F L 97 F L Temperature Source Temporal Temporal Temporal Pulse Rate (60-100) 59 L 68 66 Pulse Location Monitor Monitor Monitor Respiratory Rate (12-18) 20 H 16 18 Respiratory rate source Observation Observation Observation Oxygen Delivery Method Blood Pressure (90/60-120/80) 129/64 H 111/53 L 126/88 H Blood Pressure Mean (mm Hg) 85 72 100 Source Monitor Monitor Monitor Position Semi-Fowlers Semi-Fowlers Blood Pressure Location Left Forearm Left Arm History Since Last Visit- (Skip if this is Patient's initial visit) Have you changed medications since your No No last visit? Any new allergies or adverse reactions No No Had a fall/change in ADL's that may No No increase risk of falls Signs or symptoms of abuse and/or No No neglect since last visit Have you been in the hospital since your No No last visit? Has dressing in place as prescribed Yes Yes Has compression in place as prescribed N/A No Has offloadiing in place as prescribed Yes No Experienced any changes in pain level or No No management Left Footwear Removable Cast Regular Shoe Removable Cast Walker/Walking Walker/Walking Boot Boot Right Footwear Regular Shoe Regular Shoe Pain Scale: 0-10 Numeric Is Patient Pain Free? Yes No No LEFT PLANTAR HEEL -Description Sharp Sharp -Intensity 5 7 -Duration (hours) Acute Acute -Pain Behavior Facial Guarding Grimacing -Pain Aggravating Factors ADL's,Changing Exercise/ Position, Activity Walking -Alleviating Factors/Interventions Inactivity/ Medication Resting, Emotional Support -Effectiveness of Alleviating Factor/ Minimally Intervention effective 10/05/21 10/10/21 11:26 09:21 WC - Today's Visit Information Type of service Follow-up Visit Follow-up Visit (Physician/BUNCH BREAKER MACHINE OPERATOR (Physician/BUNCH BREAKER MACHINE OPERATOR ) ) Arrival Mode Ambulatory, Wheelchair Wheelchair Transfer Assistance Manual Transfer Assist (Other) x1 Patient Identification Verified (Name & Yes Yes ) Patient Requires Transmission-Based No No Precautions Safety Precautions Finger Stick Blood Sugar(mg/dl) (if 101 indicated): Blood Sugar Stated by Patient Height and Weight Body Mass Index (BMI) 33.7 33.7 BMI Classification Obese Obese Vital Signs Temperature (97.8 F-99.1 F) 97.1 F L 97.5 F L Temperature Source Temporal Temporal Pulse Rate (60-100) 62 56 L Pulse Location Monitor Monitor Respiratory Rate (12-18) 18 20 H Respiratory rate source Observation Observation Oxygen Delivery Method Blood Pressure (90/60-120/80) 109/61 146/72 H Blood Pressure Mean (mm Hg) 77 96 Source Monitor Monitor Position Semi-Fowlers Blood Pressure Location Left Forearm History Since Last Visit- (Skip if this is Patient's initial visit) Have you changed medications since your No last visit? Any new allergies or adverse reactions No Had a fall/change in ADL's that may No increase risk of falls Signs or symptoms of abuse and/or No neglect since last visit Have you been in the hospital since your No last visit? Has dressing in place as prescribed Yes Has compression in place as prescribed N/A Has offloadiing in place as prescribed Yes Experienced any changes in pain level or No management Left Footwear Total Contact Total Contact Cast Cast Right Footwear Regular Shoe Pain Scale: 0-10 Numeric Is Patient Pain Free? Yes Yes LEFT PLANTAR HEEL -Description -Intensity -Duration (hours) -Pain Behavior -Pain Aggravating Factors -Alleviating Factors/Interventions -Effectiveness of Alleviating Factor/ Intervention WC - Nurse 1 - General Ulcer Measurement Start: 09/17/21 10:08 Freq: Status: Active Protocol: Activity Type Activity Date Activity User E-Sign Co-Sign Detail Recorded Client Recorded Date Recorded By Document 09/17/21 10:08 KR [id number] 09/17/21 10:15 KR Document 09/19/21 09:01 DL [id number] 09/19/21 09:12 DL Document 09/26/21 09:11 DL [id number] 09/26/21 09:20 DL Document 10/01/21 11:00 JF [id number] 10/01/21 11:04 JF Document 10/03/21 09:12 RB [id number] 10/03/21 09:19 RB Document 10/05/21 11:26 JF [id number] 10/05/21 11:32 JF Document 10/10/21 09:21 DL [id number] 10/10/21 09:34 DL 09/17/21 09/19/21 09/26/21 10:08 09:01 09:11 Wound Center Nurse 1 4-left plantar arch -Combined with other wound No -Current Size (cm) - Length 6.8 2.3 1.1 -Current Size (cm) - Width 3.6 3.3 3.1 -Current Size (cm) - Depth 0.2 0.1 0.1 -Total Square Cm 24.48 7.59 3.41 -Photo Taken No -Tunneling No -Undermining/Tunneling No -Circular Undermining No -Exudate Amt Large Large Large -Exudate Type Serosanguineous Serosanguineous Serosanguineous -Wound Margin Distinct, Distinct, Thickened Outline Outline Attached Attached -Granulation Amt Large (67-100%) Medium (34-66%) Small (1-33%) -Granulation Quality Dug[place] Dugway Red -Slough/Fibrin -Necrosis Amt Large (67-100%) Medium (34-66%) Small (1-33%) -Necrotic Tissue Type Adherent Slough Adherent Slough Adherent Slough -Structure Exposed N/A N/A -Texture (Margaret-wound Skin Appearance) Assessed,Callus Assessed,Callus Scarring ,Scarring -Moisture (Margaret-wound Skin Appearance) Assessed, Assessed, Maceration Maceration Maceration -Color (Margaret-wound Skin Appearance) No Abnormality, Assessed Hemosiderin Assessed Staining -Temperature (Margaret-wound Skin No Abnormality No Abnormality No Abnormality Appearance) (Pt Warm) (Pt Warm) (Pt Warm) -Tenderness on Palpation (Margaret-wound No No No Skin Appearance) -Ulcer Cleansing Soap and Water Wound Cleanser Soap and Water -Foul Odor after Cleansing No No No -Anesthetic Used 4% Lidocaine 4% Lidocaine 5% Lidocaine Solution,5% Solution Gel Lidocaine Gel #1 left heel cluster -Combined with other wound No -Current Size (cm) - Length 2.3 2.5 2.6 -Current Size (cm) - Width 2.4 2.2 2 -Current Size (cm) - Depth 0.5 0.9 1 -Total Square Cm 5.52 5.50 5.2 -Photo Taken No -Epithelialization -Tunneling No -Undermining/Tunneling No -Circular Undermining No -Exudate Amt Large Large Large -Exudate Type Serosanguineous Serosanguineous -Wound Margin Distinct, Distinct, Outline Outline Attached Attached -Granulation Amt Large (67-100%) Medium (34-66%) Large (67-100%) -Granulation Quality Dug[place]ugway Red -Slough/Fibrin Yes -Necrosis Amt Large (67-100%) Small (1-33%) Small (1-33%) -Necrotic Tissue Type Adherent Slough Adherent Slough -Structure Exposed N/A N/A -Texture (Margaret-wound Skin Appearance) Assessed,Callus Callus Scarring ,Scarring -Moisture (Margaret-wound Skin Appearance) Assessed, Assessed, Maceration Maceration Maceration -Color (Margaret-wound Skin Appearance) No Abnormality, Assessed Hemosiderin Assessed Staining -Temperature (Margaret-wound Skin No Abnormality No Abnormality No Abnormality Appearance) (Pt Warm) (Pt Warm) (Pt Warm) -Tenderness on Palpation (Margaret-wound No No No Skin Appearance) -Ulcer Cleansing Rinsed/ Wound Cleanser Soap and Water Irrigated with Saline -Foul Odor after Cleansing No No No -Anesthetic Used 4% Lidocaine 4% Lidocaine 5% Lidocaine Solution,5% Solution Gel Lidocaine Gel -Wound Comment(s) Left Calf (cm) 49 44.2 Left Ankle (cm) 28.8 27 10/01/21 10/03/21 10/05/21 11:00 09:12 11:26 Wound Center Nurse 1 4-left plantar arch -Combined with other wound No -Current Size (cm) - Length 3.5 -Current Size (cm) - Width 2.4 -Current Size (cm) - Depth 0.1 -Total Square Cm 8.40 -Photo Taken -Tunneling No -Undermining/Tunneling No -Circular Undermining No -Exudate Amt Medium Large -Exudate Type Serosanguineous Serosanguineous -Wound Margin Flat & Intact Distinct, Outline Attached -Granulation Amt Large (67-100%) Medium (34-66%) -Granulation Quality Red [place]ug[place] -Slough/Fibrin Yes Yes -Necrosis Amt Small (1-33%) Small (1-33%) -Necrotic Tissue Type Adherent Slough Adherent Slough -Structure Exposed N/A N/A -Texture (Margaret-wound Skin Appearance) Assessed Assessed,Callus -Moisture (Margaret-wound Skin Appearance) Assessed Assessed -Color (Margaret-wound Skin Appearance) Assessed Assessed -Temperature (Margaret-wound Skin No Abnormality No Abnormality Appearance) (Pt Warm) (Pt Warm) -Tenderness on Palpation (Margaret-wound No No Skin Appearance) -Ulcer Cleansing Soap and Water Wound Cleanser Soap and Water -Foul Odor after Cleansing Yes No -Anesthetic Used 4% Lidocaine Solution,5% Lidocaine Gel #1 left heel cluster -Combined with other wound No -Current Size (cm) - Length 2.7 -Current Size (cm) - Width 2.5 -Current Size (cm) - Depth 0.5 -Total Square Cm 6.75 -Photo Taken -Epithelialization None Present -Tunneling No -Undermining/Tunneling No -Circular Undermining No No -Exudate Amt Large Large -Exudate Type Serosanguineous Serosanguineous -Wound Margin Thickened & Distinct, Rolled Under Outline Attached -Granulation Amt Large (67-100%) Medium (34-66%) -Granulation Quality Red [place] -Slough/Fibrin Yes Yes -Necrosis Amt Small (1-33%) Small (1-33%) -Necrotic Tissue Type Adherent Slough Adherent Slough -Structure Exposed N/A N/A -Texture (Margaret-wound Skin Appearance) Assessed,Callus Callus -Moisture (Margaret-wound Skin Appearance) Assessed, Assessed Maceration -Color (Margaret-wound Skin Appearance) Assessed Assessed -Temperature (Margaret-wound Skin No Abnormality No Abnormality Appearance) (Pt Warm) (Pt Warm) -Tenderness on Palpation (Margaret-wound No No Skin Appearance) -Ulcer Cleansing Soap and Water Wound Cleanser Soap and Water -Foul Odor after Cleansing No No -Anesthetic Used 4% Lidocaine Solution,5% Lidocaine Gel -Wound Comment(s) Patient has complained about left heel pain. Ulcers are cleaned and stable. Dr Chapman notified regarding follow up on xray and wound cultures. Orders for Doxycycline and Augmentin sent to [facility] and patient was notified. New TCC applied today by Ida per patient's request. Left Calf (cm) Left Ankle (cm) 10/10/21 09:21 Wound Center Nurse 1 4-left plantar arch -Combined with other wound -Current Size (cm) - Length 2.3 -Current Size (cm) - Width 3.4 -Current Size (cm) - Depth 0.1 -Total Square Cm 7.82 -Photo Taken Yes -Tunneling -Undermining/Tunneling -Circular Undermining -Exudate Amt Large -Exudate Type Serosanguineous -Wound Margin Thickened -Granulation Amt Medium (34-66%) -Granulation Quality Dugway -Slough/Fibrin -Necrosis Amt Medium (34-66%) -Necrotic Tissue Type Adherent Slough -Structure Exposed N/A -Texture (Margaret-wound Skin Appearance) Localized Edema ,Scarring -Moisture (Margaret-wound Skin Appearance) Maceration -Color (Margaret-wound Skin Appearance) Hemosiderin Staining -Temperature (Margaret-wound Skin No Abnormality Appearance) (Pt Warm) -Tenderness on Palpation (Margaret-wound Skin Appearance) -Ulcer Cleansing Soap and Water -Foul Odor after Cleansing No -Anesthetic Used 5% Lidocaine Gel #1 left heel cluster -Combined with other wound -Current Size (cm) - Length 2.5 -Current Size (cm) - Width 2 -Current Size (cm) - Depth 1 -Total Square Cm 5.0 -Photo Taken Yes -Epithelialization -Tunneling -Undermining/Tunneling -Circular Undermining -Exudate Amt Large -Exudate Type Serosanguineous -Wound Margin Thickened -Granulation Amt Medium (34-66%) -Granulation Quality Dugway,Red -Slough/Fibrin -Necrosis Amt Medium (34-66%) -Necrotic Tissue Type Adherent Slough -Structure Exposed N/A -Texture (Margaret-wound Skin Appearance) Localized Edema -Moisture (Margaret-wound Skin Appearance) Maceration -Color (Margaret-wound Skin Appearance) Hemosiderin Staining -Temperature (Margaret-wound Skin No Abnormality Appearance) (Pt Warm) -Tenderness on Palpation (Margaret-wound No Skin Appearance) -Ulcer Cleansing Soap and Water -Foul Odor after Cleansing -Anesthetic Used 5% Lidocaine Gel -Wound Comment(s) Left Calf (cm) 49.7 Left Ankle (cm) 30.5 WC - Nurse 2 - General Ulcer CM Notes Start: 09/17/21 10:08 Freq: Status: Active Protocol: Activity Type Activity Date Activity User E-Sign Co-Sign Detail Recorded Client Recorded Date Recorded By Document 09/19/21 09:20 DANIEL [id number] 09/19/21 09:27 JF Edit Result 09/19/21 09:20 JF (1) [id number] 09/20/21 06:49 PL Document 09/26/21 09:31 DANIEL [id number] 09/26/21 09:41 JF Edit Result 09/26/21 09:31 JF (2) [id number] 10/01/21 10:57 PL Document 10/03/21 09:27 [id number] 10/03/21 09:41 JF Document 10/05/21 11:26 [id number] 10/05/21 11:32 JF Document 10/10/21 09:52 [id number] 10/10/21 10:01 JF (1) #1 left heel cluster - Debridement - Subq, 1st 20sq cm Yes => No (2) 4-left plantar arch - Type of Offloading Camwalker => Total Contact Cast => (TCC) - Left ($) 09/19/21 09/26/21 10/03/21 09:20 09:31 09:27 Wound Center Nurse 2 4-left plantar arch -Time 09:21 09:34 09:37 -Correct Patient Yes Yes Yes -Correct Side, Site, Position Yes Yes Yes -Correct Procedure Yes Yes Yes -Procedure Performed Yes Yes Yes -Type of Procedure Debridement Debridement Debridement -Clinical Debridement Subcutaneous Subcutaneous Subcutaneous -Tissue Removed Subcutaneous Subcutaneous Subcutaneous -Post Debridement (cm) - Length 3.3 1.2 2.0 -Post Debridement (cm) - Width 3.5 3.1 3.0 -Post Debridement (cm) - Depth 0.3 0.1 0.2 -Total Square (Post) (cm) 11.55 3.72 6.00 -Area of Debridement (cm) - Length 3.3 1.2 2.0 -Area of Debridement (cm) - Width 3.5 3.1 3.0 -Total Square (Area) (cm) 11.55 3.72 6.00 -Tunneling No No No -Undermining/Tunneling No No No -Circular Undermining No No No -Wound/Ulcer Outcome Not Healed Not Healed Not Healed -Ulcer Cleansing Rinsed/ Rinsed/ Rinsed/ Irrigated with Irrigated with Irrigated with Saline Saline Saline -Foul Odor after Cleansing No No No -Bioengineered Tissue No No No -Bleeding Controlled with Pressure Pressure -Treatment Response Procedure Procedure Procedure Tolerated Well Tolerated Well Tolerated Well -Offloading No Yes Yes -Type of Offloading Total Contact Total Contact Cast (TCC) - Cast (TCC) - Left ($) Left ($) -Debridement - Subq, 1st 20sq cm Yes No No #1 left heel cluster -Time 09:25 09:34 09:34 -Correct Patient Yes Yes Yes -Correct Side, Site, Position Yes Yes Yes -Correct Procedure Yes Yes Yes -Procedure Performed Yes Yes Yes -Type of Procedure Debridement Debridement Debridement -Clinical Debridement Subcutaneous Subcutaneous Subcutaneous -Tissue Removed Subcutaneous Subcutaneous Subcutaneous -Post Debridement (cm) - Length 2.4 2.6 2.7 -Post Debridement (cm) - Width 2.5 2.1 2.5 -Post Debridement (cm) - Depth 0.5 1.0 0.5 -Total Square (Post) (cm) 6.00 5.46 6.75 -Area of Debridement (cm) - Length 2.4 2.6 2.7 -Area of Debridement (cm) - Width 2.5 2.1 2.5 -Total Square (Area) (cm) 6.00 5.46 6.75 -Tunneling No No No -Undermining/Tunneling No No No -Circular Undermining No No No -Wound/Ulcer Outcome Not Healed Not Healed Not Healed -Ulcer Cleansing Rinsed/ Rinsed/ Rinsed/ Irrigated with Irrigated with Irrigated with Saline Saline Saline -Foul Odor after Cleansing No No No -Bioengineered Tissue No No No -Bleeding Controlled with Pressure Pressure Pressure -Treatment Response Procedure Procedure Procedure Tolerated Well Tolerated Well Tolerated Well -Offloading Yes Yes No -Type of Offloading Total Contact Camwalker Cast (TCC) - Left ($) -Debridement - Subq, 1st 20sq cm No Yes Yes Pain Scale: 0-10 Numeric Is Patient Pain Free? Yes Yes Yes 10/05/21 10/10/21 11:26 09:52 Wound Center Nurse 2 4-left plantar arch -Time 09:54 -Correct Patient No Yes -Correct Side, Site, Position No Yes -Correct Procedure No Yes -Procedure Performed No Yes -Type of Procedure Debridement -Clinical Debridement Subcutaneous -Tissue Removed Subcutaneous -Post Debridement (cm) - Length 2.4 -Post Debridement (cm) - Width 3.4 -Post Debridement (cm) - Depth 0.1 -Total Square (Post) (cm) 8.16 -Area of Debridement (cm) - Length 2.4 -Area of Debridement (cm) - Width 3.4 -Total Square (Area) (cm) 8.16 -Tunneling No -Undermining/Tunneling No -Circular Undermining No -Wound/Ulcer Outcome Not Healed Not Healed -Ulcer Cleansing Rinsed/ Irrigated with Saline -Foul Odor after Cleansing No -Bioengineered Tissue No -Bleeding Controlled with Pressure -Treatment Response Procedure Tolerated Well -Offloading Yes Yes -Type of Offloading Total Contact Camwalker Cast (TCC) - Left ($) -Debridement - Subq, 1st 20sq cm No #1 left heel cluster -Time 09:56 -Correct Patient No Yes -Correct Side, Site, Position No Yes -Correct Procedure No Yes -Procedure Performed No Yes -Type of Procedure Debridement -Clinical Debridement Subcutaneous -Tissue Removed Subcutaneous -Post Debridement (cm) - Length 2.5 -Post Debridement (cm) - Width 2.1 -Post Debridement (cm) - Depth 1.1 -Total Square (Post) (cm) 5.25 -Area of Debridement (cm) - Length 2.5 -Area of Debridement (cm) - Width 2.1 -Total Square (Area) (cm) 5.25 -Tunneling No -Undermining/Tunneling No -Circular Undermining No -Wound/Ulcer Outcome Not Healed Not Healed -Ulcer Cleansing Rinsed/ Irrigated with Saline -Foul Odor after Cleansing No -Bioengineered Tissue No -Bleeding Controlled with Pressure -Treatment Response Procedure Tolerated Well -Offloading No Yes -Type of Offloading Camwalker -Debridement - Subq, 1st 20sq cm Yes Pain Scale: 0-10 Numeric Is Patient Pain Free? Yes Yes WC - Nurse 3 - General Ulcer D/C NN Start: 09/17/21 10:08 Freq: Status: Active Protocol: Activity Type Activity Date Activity User E-Sign Co-Sign Detail Recorded Client Recorded Date Recorded By Document 09/17/21 13:06 DANIEL [id number] 09/17/21 13:08 Edit Result 09/17/21 13:06 DANIEL (1) [id number] 09/17/21 13:08 JF Document 09/19/21 09:31 RB [id number] 09/19/21 09:34 RB Document 09/24/21 08:55 BMF [id number] 09/24/21 08:58 BMF Document 09/26/21 10:01 RB [id number] 09/26/21 10:03 RB Document 10/01/21 11:00 JF [id number] 10/01/21 11:04 JF Document 10/03/21 11:44 RB [id number] 10/03/21 11:46 RB Document 10/05/21 11:25 JF [id number] 10/05/21 11:26 JF Document 10/10/21 10:17 BMF [id number] 10/10/21 10:18 BMF (1) Margaret-Wound Care => Barrier Other/Comment => betadine to => periulcer to both => ulcers 09/17/21 09/19/21 09/24/21 13:06 09:31 08:55 Wound Care Nurse 3 4-left plantar arch -Ulcer Cleansing Rinsed/ Soap and Water Irrigated with Saline -Foul Odor after Cleansing No No -Primary Dressing Applied Optilok 6.5x10, Fibracol Plus Optilok 6.5x10, Silvercel 4x4,Optilok 6. 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 -Fibracol Plus 4x4 1 -Optilok 6.5x10 1 1 2 -Silvercel 0 1 #1 left heel cluster -Ulcer Cleansing Rinsed/ Soap and Water Irrigated with Saline -Foul Odor after Cleansing No -Primary Dressing Applied Optilok 6.5x10, Optilok 6.5x10 Optilok 6.5x10, Silvercel Silvercel -Other Dressing fibracol pluus betadine paint to ulcer an to margaret wound betadine to peiulcer -Primary Dressing Covered/Secured with Dry Gauze & Dry Gauze & Roll Gauze, Roll Gauze, Secured with Secured with Tape Tape -Other Covering drsg per ak tinware lithograph press operator -Optilok 6.5x10 1 1 0 -Silvercel 1 0 Margaret-Wound Care Barrier Other/Comment betadine to periulcer to both ulcers Left -Lotion applied to leg before compression wrap -Compression Wrap Kevin Wrap Kevin Wrap -Other Treatment Response Procedure Procedure Tolerated Well Tolerated Well Vital Signs Temperature (97.8 F-99.1 F) 96.5 F L Temperature Source Temporal Pulse Rate (60-100) 60 Pulse Location Monitor Respiratory Rate (12-18) 16 Respiratory rate source Observation Oxygen Delivery Method Room Air Blood Pressure (90/60-120/80) 137/58 H Blood Pressure Mean (mm Hg) 84 Source Monitor Position Sitting Blood Pressure Location Left Arm Pain Scale: 0-10 Numeric Is Patient Pain Free? Yes No Yes LEFT PLANTAR HEEL -Description -Intensity -Duration (hours) -Pain Behavior -Pain Aggravating Factors -Alleviating Factors/Interventions LLE -Description Aching -Intensity 5 -Pain Behavior Withdrawal from Touch -Pain Aggravating Factors Exercise/ Activity, Standing -Alleviating Factors/Interventions Medication -Effectiveness of Alleviating Factor/ Moderately Intervention effective WC - Visit Discharge Discharge Condition Stable Stable Stable Ambulatory Status Ambulatory, Wheelchair Wheelchair Wheelchair Transportation Private Auto Private Auto Private Auto Medication Reconcilliation completed & Yes No provided to patient/care provider Clinical Summary of Care Provided Yes Yes Facility Type 09/26/21 10/01/21 10/03/21 10:01 11:00 11:44 Wound Care Nurse 3 4-left plantar arch -Ulcer Cleansing Rinsed/ Irrigated with Saline -Foul Odor after Cleansing No -Primary Dressing Applied Silvercel Optilok 6.5x10, Silvercel -Other Dressing abd nurses hat BETADINE TO betadine to MARGARET-ULCER periulcer silvercel to wound -Primary Dressing Covered/Secured with Dry Gauze,Dry Gauze & Roll Gauze,Secured with Tape -Other Covering -Fibracol Plus 4x4 -Optilok 6.5x10 1 -Silvercel 1 1 #1 left heel cluster -Ulcer Cleansing Soap and Water -Foul Odor after Cleansing -Primary Dressing Applied Optilok 6.5x10, Silvercel -Other Dressing silvercel BETADINE TO betadine to MARGARET-ULCER margaret ulcer and jesús to wound -Primary Dressing Covered/Secured with Dry Gauze,Dry Dry Gauze & Gauze & Roll Roll Gauze Gauze,Secured with Tape -Other Covering 3 inch TCC primary layer applied -Optilok 6.5x10 1 -Silvercel 0 Margaret-Wound Care Other/Comment Left -Lotion applied to leg before Yes compression wrap -Compression Wrap Kevin Wrap -Other kevin Treatment Response Procedure Procedure Tolerated Well Tolerated Well Vital Signs Temperature (97.8 F-99.1 F) 97.4 F L Temperature Source Temporal Pulse Rate (60-100) 68 Pulse Location Monitor Respiratory Rate (12-18) 16 Respiratory rate source Observation Oxygen Delivery Method Blood Pressure (90/60-120/80) 111/53 L Blood Pressure Mean (mm Hg) 72 Source Monitor Position Semi-Fowlers Blood Pressure Location Left Forearm Pain Scale: 0-10 Numeric Is Patient Pain Free? Yes No Yes LEFT PLANTAR HEEL -Description Sharp -Intensity 5 -Duration (hours) Acute -Pain Behavior Facial Grimacing -Pain Aggravating Factors ADL's,Changing Position, Walking -Alleviating Factors/Interventions Inactivity/ Resting, Emotional Support LLE -Description -Intensity -Pain Behavior -Pain Aggravating Factors -Alleviating Factors/Interventions -Effectiveness of Alleviating Factor/ Intervention WC - Visit Discharge Discharge Condition Stable Stable Stable Ambulatory Status Wheelchair Walker, Wheelchair Wheelchair Transportation van Private Auto Private Auto Medication Reconcilliation completed & No No provided to patient/care provider Clinical Summary of Care Provided Yes Yes Facility Type 10/05/21 10/10/21 11:25 10:17 Wound Care Nurse 3 4-left plantar arch -Ulcer Cleansing Rinsed/ Rinsed/ Irrigated with Irrigated with Saline Saline -Foul Odor after Cleansing No No -Primary Dressing Applied Optilok 6.5x10, Optilok 6.5x10, Silvercel Other -Other Dressing MOIST TO DRY -Primary Dressing Covered/Secured with Dry Gauze & Roll Gauze, Secured with Tape -Other Covering -Fibracol Plus 4x4 -Optilok 6.5x10 1 2 -Silvercel 1 #1 left heel cluster -Ulcer Cleansing Wound Cleanser Rinsed/ Irrigated with Saline -Foul Odor after Cleansing No -Primary Dressing Applied Optilok 6.5x10, Optilok 6.5x10 Silvercel -Other Dressing MOIST TO DRY -Primary Dressing Covered/Secured with Dry Gauze & Roll Gauze, Secured with Tape -Other Covering HEEL HAT -Optilok 6.5x10 0 0 -Silvercel 0 Margaret-Wound Care Other/Comment Left -Lotion applied to leg before compression wrap -Compression Wrap Kevin Wrap -Other Treatment Response Vital Signs Temperature (97.8 F-99.1 F) Temperature Source Pulse Rate (60-100) Pulse Location Respiratory Rate (12-18) Respiratory rate source Oxygen Delivery Method Blood Pressure (90/60-120/80) Blood Pressure Mean (mm Hg) Source Position Blood Pressure Location Pain Scale: 0-10 Numeric Is Patient Pain Free? Yes Yes LEFT PLANTAR HEEL -Description -Intensity -Duration (hours) -Pain Behavior -Pain Aggravating Factors -Alleviating Factors/Interventions LLE -Description -Intensity -Pain Behavior -Pain Aggravating Factors -Alleviating Factors/Interventions -Effectiveness of Alleviating Factor/ Intervention WC - Visit Discharge Discharge Condition Stable Stable Ambulatory Status Wheelchair Wheelchair Transportation Private Auto Private Auto Medication Reconcilliation completed & Yes provided to patient/care provider Clinical Summary of Care Provided Yes Facility Type Home Health Assessment/Plan Assessment/Plan (1) Non-pressure chronic ulcer of left heel and midfoot with fat layer exposed: CODE(S): L97.422 - Non-pressure chronic ulcer of left heel and midfoot with fat layer exposed (2) Ulcer of left foot with necrosis of muscle: CODE(S): L97.523 - Non-pressure chronic ulcer of other part of left foot with necrosis of muscle (3) Maceration of skin: CODE(S): L98.8 - Other specified disorders of the skin and subcutaneous tissue (4) Localized edema: CODE(S): R60.0 - Localized edema (5) Diabetes mellitus: CODE(S): E11.9 - Type 2 diabetes mellitus without complications (6) Type 2 diabetes mellitus with diabetic polyneuropathy: CODE(S): E11.42 - Type 2 diabetes mellitus with diabetic polyneuropathy QUALIFIERS: Diabetes mellitus custodial insulin use: with custodial use Qualified Code(s): E11.42 - Type 2 diabetes mellitus with diabetic polyneuropathy; Z79.4 - [facility] (current) use of insulin (7) Diabetic foot ulcer: CODE(S): E11.621 - Type 2 diabetes mellitus with foot ulcer; L97.509 - Non-pressure chronic ulcer of other part of unspecified foot with unspecified severity QUALIFIERS: Diabetic foot ulcer location: heel Diabetes mellitus type: type 2 Laterality: left Non-pressure ulcer stage: with fat layer exposed Qualified Code(s): E11.621 - Type 2 diabetes mellitus with foot ulcer; L97.422 - Non-pressure chronic ulcer of left heel and midfoot with fat layer exposed (8) Tobacco abuse: CODE(S): Z72.0 - Tobacco use (9) Cellulitis of left lower limb: CODE(S): L03.116 - Cellulitis of left lower limb (10) Osteomyelitis: CODE(S): M86.9 - Osteomyelitis, unspecified PLAN: Patient seen and examined. I reviewed and discussed his case. Debridement was performed as noted in the clinical nursing panel. Dressing recommendation: Dakin wet-to-dry daily. We will resume total contact casting hopefully next week. He will require home health assistance for he is unable to perform this on his own. Patient wound is noted to have improved with healthier appearance and there is no malodor. However, there is no probe to bone to the heel I am concerned that he has some osteomyelitis deteriorization development. Otherwise, there are no local signs infection noted today. He was seen by infectious disease during his last hospital admission and he had surgery on 05-29-2021. At this time, I do recommend an updated infectious disease evaluation and a referral was provided. X-rays were negative for new acute osseous changes soft tissue emphysema or foreign body of this foot. Cultures demonstrated MRSA, Enterococcus faecalis, corynebacterium. I recommended Augmentin and doxycycline. Refills are sent to [facility] in [place]. Offloading: To maintain a strict nonweightbearing status to the ulcer to the foot. Patient relates he had follow-up appointment with his primary care provider, Priyanka Brown, and relates that she did not change any medication and stated he was doing okay. PCP is leaving the diabetes management up to his critical systems technician, Dr. Mykel Barraza. He was able to follow-up and recommendations were updated. Edema management: Medical management per primary care. To reduce salt in diet. Total contact cast will also aide in edema reduction. Arterial studies were reviewed. Showing likely adequate perfusion for healing. Right LAI is 0.99 and left 1.18. Right toe brachial index 0.76 and left 0.71. Referral to Dr. Campos for potential venous and arterial intervention was provided today. He went for consultationon 04-11-21. Will recheck duplex to make sure normal posterior tibial flow into the area of the wound. normal prior LAI noted. Host factors: His multiple comorbidities are noted including diabetes and smoking history. Also recommend improvement in nutritional status which involves taking in adequate protein and also focusing on eating 5-10 whole foods daily. Advanced wound treatments: It is noted he has grade 3 ulcers with recent probe to bone and concern of additional osteomyelitis of the calcaneus. I will recommend hyperbaric oxygen therapy to optimize healing. It is noted he has multiple EKGs on file and I will see if we can obtain a copy of any previous echocardiogram to see if he has an appropriate ejection fraction. The benefits and risk will be reviewed at his follow-up. All questions answered. He understands below-knee amputation is an option as well if he cannot keep pressure off the site, if pain becomes intolerable, and if he no longer is able to proceed with a comprehensive wound healing plan. He defers at this time. Patient to follow up in 1 week or call sooner if status worsening or if questions. I answered all of his questions. This note was generated with [employer] dictation software. It may contain incorrect words, spelling, and punctuation that were not noted in checking the note before signing. The medical decision making level is moderate. There is noted moderate risk of morbidity after considering this treatment plan and diagnostic data. Considerations were given to prescription management, decisions regarding surgical options, or social determinants of health. The problems addressed require a moderate decision making level which includes one or more chronic illnesses (w/ exacerbation, progression, or side effects), two or more stable chronic illnesses, one undiagnosed new problem w/ uncertain prognosis, one acute illness with systemic symptoms, or one acute complicated injury.
[2021-10-11 08:21] VITALS: BP 133/57; PULSE 61; RESP 20; TEMP 36.2; BMI 33.7
== END 2021-10-16 23:59 | disposition home or self-care (01) ==
LOC: WC 08:15
PROVIDERS: Referring Provider Podiatrist Foot & Ankle Surgery; Visit Provider Podiatrist
DX: E11.621 Type 2 diabetes mellitus with foot ulcer (principal); L97.422 Non-pressure chronic ulcer of left heel and midfoot with fat layer exposed; L97.522 Non-pressure chronic ulcer of other part of left foot with fat layer exposed; E11.42 Type 2 diabetes mellitus with diabetic polyneuropathy; Z79.4 Long term (current) use of insulin; Z72.0 Tobacco use; R60.0 Localized edema; Z86.14 Personal history of Methicillin resistant Staphylococcus aureus infection; Z86.19 Personal history of other infectious and parasitic diseases
CPT/HCPCS: 11042; 29445; 73630; 87070; 87075; 87077; 87186; 87205; 87640; 99213; G0463

== ENCOUNTER → 2021-10-18 | Outpatient (CLI) | payer MEDICARE, BC, SELFPAY ==
--- NOTE | 2021-10-18 13:06 | ADUL_ITS ---
Reason For Study: stricture of artery Left Velocities Ext. Iliac Artery, dist = 134.4 cm./sec. Common Femoral Artery, mid = 143.5 cm./sec. Supf Femoral Artery, prox = 132.6 cm./sec. Supf Femoral Artery, mid = 121.6 cm./sec. Supf Femoral Artery, dist. = 83.3 cm./sec. Profunda Femoral Artery = 65.0 cm./sec. Popliteal Artery, mid = 123.4 cm./sec. Post. Tibial Artery, prox = 96.0 cm./sec. Post. Tibial Artery, mid = 143.5 cm./sec. Post. Tibial Artery, dist = 145.3 cm./sec. Peroneal Artery, prox = 70.4 cm./sec. Peroneal Artery, mid = 85.0 cm./sec. Peroneal Artery,dist = 83.2 cm./sec. Ant. Tibial Artery, prox = 97.7 cm./sec. Ant. Tibial Artery, mid = 94.0 cm./sec. Ant. Tibial Artery, dist = 101.3 cm./sec. Procedure The exam was diagnostic. Exam performed in department. VL/US Art Duplex Unilat Lower Ext Interpretation Summary Left lower extremity with no evidence of significant stenosis noted. Ordering Physician: Umer Campos Performed By: Brayan Fox RVT
--- NOTE | 2021-10-18 13:07 | ART_ITS ---
Reason For Study: stricture of artery Procedure A bilateral lower extremity continuous wave Doppler with analog waveform analysis and ankle brachial indexes. Left Segmental Pressures Left brachial= 118mmHg. Left posterior tibial artery = 178mmHg. Left dorsalis pedis artery = 164mmHg. Left digit = 113 mmHg. The left dorsalis pedis waveforms are triphasic. The left posterior tibial artery waveforms are triphasic. Right Segmental Pressures Right brachial= 134mmHg. Right posterior tibial artery = 171mmHg. Right dorsalis pedis artery = 129mmHg. Right digit = 109 mmHg. The right dorsalis pedis waveforms are triphasic. The right posterior tibial artery waveforms are triphasic. Indices The right ankle brachial index by the posterior tibial artery is 1.28. The right ankle brachial index by the dorsalis pedis is .96. The right digital-brachial index is .81. The left ankle brachial index by the dorsalis pedis is 1.22. The left ankle brachial index by the posterior tibial artery is 1.33. The left digital-brachial index is .84. VL/Ankle Brachial Index Interpretation Summary Bilateral lower extremities is no significant occlusive disease at rest with bi lateral triphasic flow and an LAI 1.28 and 1.33. Ordering Physician: Umer Campos Performed By: Brayan Fox RVT
== END | disposition home or self-care (01) ==
LOC: CVS 13:04
PROVIDERS: Referring Provider Surgery Vascular Surgery; Visit Provider Surgery Vascular Surgery
DX: I77.1 Stricture of artery (principal); I70.213 Atherosclerosis of native arteries of extremities with intermittent claudication, bilateral legs; I21.3 ST elevation (STEMI) myocardial infarction of unspecified site; E10.9 Type 1 diabetes mellitus without complications; N28.9 Disorder of kidney and ureter, unspecified; E78.00 Pure hypercholesterolemia, unspecified; I10 Essential (primary) hypertension; M19.90 Unspecified osteoarthritis, unspecified site
CPT/HCPCS: 93922; 93926

== ENCOUNTER 2021-11-05 19:07 | Emergency (ER) | payer MEDICARE, BC, SELFPAY ==
[2021-11-05 19:09] VITALS: BP 133/65; PULSE 85; RESP 18; TEMP 36.8; O2SAT 97; BMI 33.7
--- NOTE | 2021-11-05 19:35 | EDS_ITS ---
HPI History of Present Illness Chief Complaint: Lower Extremity Injury Narrative Narrative: Patient with past medical history of chronic left foot pain and ulcerations, presents from wound care with reported outpatient ultrasound consistent with DVT. He states that for the last few weeks he has had pain and swelling of his left calf. He was at wound care center today where they obtained an outpatient ultrasound. He reportedly has a DVT in the soleus. They called his primary care physician, Dr. Yoly Brown. He states that they spoke with her , Sayed and was told that he needed to come to the emergency department because they wanted him started on blood thinners. He denies any chest pain or shortness of breath. No other symptoms except for his chronic pain in his left foot. He states he sees podiatry, Dr. Bella every Friday and has an appointment in 2 days. He presents mainly because of the known DVT on his outpatient ultrasound. [facility] Medical History Cancer Chest pain CKD (chronic kidney disease), stage III COPD (chronic obstructive pulmonary disease) Current use of insulin Difficulty swallowing DVT (deep venous thrombosis) Former tobacco use History of kidney cancer Myocardial infarct Obesity CAMACHO (obstructive sleep apnea) Polycythemia secondary to hypoxia Status post debridement of ulcer of heel Type 2 diabetes mellitus with diabetic polyneuropathy Wears hearing aid in both ears Home Medications ascorbic acid (vitamin C) 1,000 mg tablet 1,000 mg PO TID vitamin 07/11/20 [History Last Taken 05/27/21] aspirin 81 mg chewable tablet 81 mg PO DAILY@0800 heart health 07/11/20 [History Last Taken 05/27/21] atorvastatin 80 mg tablet 80 mg PO QHS cholesterol 07/11/20 [History Last Taken 05/27/21] carvedilol 12.5 mg tablet 12.5 mg PO DAILY blood pressure 08/17/20 [History Last Taken 06/01/21 08:10] cholecalciferol (vitamin D3) 125 mcg (5,000 unit) capsule 125 mcg PO DAILY Supplement 05/28/21 [History Last Taken 05/27/21] gabapentin 800 mg tablet 800 mg PO TID neuropathy 06/29/21 [History Last Taken Unknown] insulin glargine 100 unit/mL (3 mL) subcutaneous pen (Lantus Solostar U-100 Insulin) 40 units subcut QHS diabetes 06/29/21 [History Last Taken Unknown] insulin lispro 100 unit/mL subcutaneous pen 120 unit subcut TIDCM diabetes 06/29/21 [History Last Taken Unknown] nutritional supplements 1 ea PO BID supplement 06/29/21 [History Last Taken Unknown] zinc sulfate 50 mg zinc (220 mg) capsule 220 mg PO DAILY supplement 06/29/21 [History Last Taken Unknown] amoxicillin 875 mg-potassium clavulanate 125 mg tablet 1 tab PO BID #20 tabs 10/10/21 [Rx Last Taken Unknown] doxycycline hyclate 100 mg capsule 100 mg PO BID #20 caps 10/10/21 [Rx Last Sidney en Unknown] apixaban 5 mg (74 tabs) tablets in a dose pack (Take5 DVT-PE Treat 30D Start) 5 mg PO BID #74 tabs 11/05/21 [Rx Last Taken Unknown] glipizide 10 mg tablet, extended release 24 hr 1 tab PO DAILY 11/05/21 [History Last Taken Unknown] losartan 50 mg tablet 50 tab PO DAILY 11/05/21 [History Last Taken Unknown] magnesium 500 mg tablet 500 mg PO DAILY 11/05/21 [History Last Taken Unknown] Allergy/AdvReac Type Severity Reaction Status Date / Time codeine AdvReac Nausea Verified 11/05/21 19:08 promethazine [From Phenergan] AdvReac Nausea Verified 11/05/21 19:08 Family History Father CVA (cerebral vascular accident) Myocardial infarction Mother Dementia Surgical History History of appendectomy History of coronary artery stent placement History of surgery on arm Hx of partial nephrectomy Previous back surgery S/P appendectomy Social History household members: none Smoking Status: Light Smoker (<10/day) Tobacco: How many years used: 50 how long ago did patient quit smoking: Smoked ~1/2 ppd x 50 years until quit. alcohol intake: never substance use type: does not use ROS ROS ED ROS Narrative Constitutional: No fever, no chills. HEENT: No sore throat. No neck pain. No loss of vision. No rhinorrhea. Cardiovascular: No chest pain. No palpitations. No pedal edema. Respiratory: No cough, no shortness of breath. Abdominal: No abdominal pain. No nausea. No vomiting. Genitourinary: No dysuria. No hematuria. Musculoskeletal: Left calf pain and swelling, chronic left foot pain secondary to ulcerations no arthralgias. Neurologic: No headaches. No dizziness. No lightheadedness. Skin: No rash. No change in color. Psychiatric: No depression. No anxiety. EXAM Physical Exam Narrative Exam Narrative: Afebrile. Vital signs noted. HEENT: Normocephalic. Atraumatic. PERRL, EOMI. Neck soft and supple. No point tenderness or step off. Cardiovascular: Regular rate and rhythm. No murmurs, rubs, or gallops appreciated. Respiratory: No tachypnea. Lungs clear to auscultation bilaterally. Gastrointestinal: Abdomen soft, nontender, with normoactive bowel sounds. No rebound or guarding. Neurological: Awake. Alert. Nonfocal, nonlateralizing. Skin: No rash. Normal color. No pallor. Musculoskeletal: Chronic lymphedema left lower extremity, bandages over foot. Mild tenderness to palpation diffusely left calf. Full range of motion extremities. Const Vital Signs: 11/05/21 19:09 Temperature 98.3 F Temperature Source Temporal Pulse Rate 85 Respiratory Rate 18 Blood Pressure 133/65 H Blood Pressure Mean 87 Pulse Ox 97 Oxygen Delivery Method Room Air MDM MDM MDM Narrative Medical decision making narrative: I reviewed the note from wound care today. It stated that they wanted the patient placed on blood thinners for his solea's clot. I am unable to find the results of the outpatient ultrasound. However, given his reported soleus clot, and documented wish that he be placed on anticoagulants by his primary care physician, I will attempt to contact them to confirm this. However, I do feel that he could be started on Eliquis. He was given his first dose of Eliquis 10 mg here in the emergency department. I wrote him a prescription to take 10 mg twice a day by mouth for the first 7 days and then 5 mg twice a day by mouth for the remainder of the period. I did attempt to contact his primary care physician but I did not receive a call back. He states he has an appointment with them tomorrow. I strongly suggested that he keep his appointment. I feel he be discharged safely home with follow-up. Return instructions to the emergency department were reviewed. Disposition is discharged home in stable condition. Discharge Plan Triage Chief Complaint: Lower Extremity Injury ED Provider: Avtar Cueto Dx/Rx/DC Orders Clinical Impression: DVT (deep venous thrombosis), Pain of left calf, Diabetic foot ulcer Instructions: ED Deep Vein Thrombosis (DVT) Prescriptions: New Eliquis DVT-PE Treat 30D Start 5 mg (74 tabs) tablets,dose pack 5 mg PO BID Qty: 74 0RF Rx Instructions: 10 mg orally twice a day for the first 7 days, then 5 mg orally twice a day No Action atorvastatin 80 MG tablet 80 mg PO QHS ascorbic acid (vitamin C) 1,000 MG tablet 1,000 mg PO TID aspirin 81 MG tablet,chewable 81 mg PO DAILY@0800 carvedilol 12.5 MG tablet 12.5 mg PO DAILY cholecalciferol (vitamin D3) 125 mcg (5,000 unit) Capsule 125 mcg PO DAILY nutritional supplements Powder 1 ea PO BID insulin lispro 100 unit/mL Insulin Pen 120 unit SUBCUT TIDCM gabapentin 800 mg tablet 800 mg PO TID zinc sulfate 50 mg zinc (220 mg) capsule 220 mg PO DAILY insulin glargine [Lantus Solostar U-100 Insulin] 100 unit/mL (3 mL) insulin pen 40 units subcut QHS amoxicillin-pot clavulanate 875-125 mg tablet 1 tab PO BID Qty: 20 0RF doxycycline hyclate 100 mg capsule 100 mg PO BID Qty: 20 0RF losartan 50 mg tablet 50 tab PO DAILY Label Comments: Take 1 tablet by mouth once daily. glipizide 10 mg tablet extended release 24hr 1 tab PO DAILY Label Comments: TAKE 1 TABLET TWICE DAILY magnesium 500 mg Tablet 500 mg PO DAILY Primary Care Provider: Care Physician,No Primary Referrals: Care Physician,No Primary [Primary Care Provider] - Activity Restrictions/Additional Instructions: Follow-up with your primary care physician as soon as possible. Call the office tomorrow. Take Eliquis as directed. The dosing is 10 mg by mouth twice a day for the first 7 days then 5 mg by mouth twice a day. Return with chest pain, s hortness of breath, new or worsening symptoms. Disposition Disposition: Home, Self Care
[2021-11-05] MEDS: APIXABAN 5 MG TABLET 10 MG PO (19:53)
== END 2021-11-05 20:37 | disposition home or self-care (01) ==
PROVIDERS: Emergency Provider Emergency Medicine; Visit Provider Emergency Medicine
DX: I82.402 Acute embolism and thrombosis of unspecified deep veins of left lower extremity (principal); E11.621 Type 2 diabetes mellitus with foot ulcer; L97.509 Non-pressure chronic ulcer of other part of unspecified foot with unspecified severity; E11.22 Type 2 diabetes mellitus with diabetic chronic kidney disease; N18.30 Chronic kidney disease, stage 3 unspecified; G47.33 Obstructive sleep apnea (adult) (pediatric); F17.200 Nicotine dependence, unspecified, uncomplicated; I25.2 Old myocardial infarction; R60.0 Localized edema; M79.605 Pain in left leg; Z79.01 Long term (current) use of anticoagulants; Z79.899 Other long term (current) drug therapy; Z79.82 Long term (current) use of aspirin; Z95.5 Presence of coronary angioplasty implant and graft
CPT/HCPCS: 93971; 99214; 99283; G0463

== ENCOUNTER → 2021-11-05 | Outpatient (CLI) | payer MEDICARE, BC, SELFPAY ==
--- NOTE | 2021-11-05 13:02 | VDLE_ITS ---
Reason For Study: Lt leg edema Procedure LEFT This is a venous duplex using B-mode, color GSV is normal. flow and spectral Doppler. CFV is compressible, spontaneous, phasic, Exam performed in department. competent, and demonstrates normal A preliminary report was called and/or faxed augmentation. to Radha LEIGH. FV is compressible, spontaneous, phasic, competent and demonstrates normal augmentation. POP V is compressible, spontaneous, phasic, competent and demonstrates normal augmentation. T/P Trunk is compressible. PTV is compressible. LT PerV is compressible. Lt SoleusV is dilated and non compressible consistent with acute DVT. VL/Venous Duplex US, Unilateral Interpretation Summary Acute deep vein thrombosis is noted in the left soleus vein. The remainder of t he left lower extremity deep venous system is patent and compressible. Valvular competence ap pears intact within the proximal deep venous system on the left . The left great saphenous vein bonny ears patent and compressible segmentally. Ordering Physician: Awilda Rodriguez Referring Physician: Tiffany Chapman Performed By: Kristina Quintana, KATHYACS, RVT
== END | disposition home or self-care (01) ==
LOC: CVS 12:58
PROVIDERS: Referring Provider Podiatrist; Visit Provider Podiatrist
DX: R60.0 Localized edema (principal); M79.605 Pain in left leg
CPT/HCPCS: 93971

== ENCOUNTER 2021-11-12 12:34 | Emergency (ER) | payer MEDICARE, BC, SELFPAY ==
[2021-11-12 12:36] VITALS: BP 135/72; PULSE 63; RESP 17; TEMP 36.4; O2SAT 96; BMI 33.7
--- NOTE | 2021-11-12 12:45 | RAD_ITS ---
STUDY: X-RAY - LEFT ANKLE REASON FOR EXAM: Male, 66 years old. Recent fall. History of infection. TECHNIQUE: 3 view(s) of the ankle. COMPARISON: Comparison is made with prior study of 10/03/2021. FINDINGS: Normal visualized distal tibia and fibula. Normal medial and lateral malleoli. Normal tibiotalar articulation and ankle mortise. There is evidence of soft tissue ulceration along the plantar aspect of the posterior calcaneus with evidence of the erosive changes suggestive of a osteomyelitis. A small amount of air is seen within the soft tissues. The visualized subtalar, talonavicular, calcaneocuboid and tarsal articulations are normal. Diffuse soft tissue swelling. RAD/Ankle min 3 Views IMPRESSION: Soft tissue ulceration along the posterior plantar aspect of the calcaneus with evidence of erosive changes in the calcaneus suggestive of osteomyelitis. Soft tissue swelling. Small amount of air is seen within the soft tissues. Electronically Signed: James Bell MD at 13:32 EDT ,
--- NOTE | 2021-11-12 15:09 | ED.VIS.LOWEX ---
HPI History of Present Illness HPI Narrative: Patient presents with injury to his left ankle that occurred today. Patient states he was trying to transfer onto his knee scooter when he lost his balance and fell onto his left ankle. Patient states it twisted. Patient describes the pain as sharp, aching, and throbbing. Patient states the pain is been constant. Patient has a history of osteomyelitis in his left foot and ankle. Patient had recent surgery for this. Patient admits to some chronic paresthesias in his left foot. Patient denies any weakness. Patient denies any other injuries. Chief Complaint: Lower Extremity Injury Occured/Mechanism Mechanism/Context: Yes fall Comment: Twisting injury Onset/Context/Timing Onset: Today Context: Sudden Onset Timing: Continuous Quality of Pain: Sharp, Aching and Throbbing Location: Left ankle Worsened by: Nothing Relieved by: Nothing Associated Symptoms Associated Symptoms: Negative for Parasthesia, Weakness or Loss of [facility]ion [facility] History (Updated 11/12/21 @ 15:[address] Toney Guallpa, DO) Cancer Chest pain CKD (chronic kidney disease), stage III COPD (chronic obstructive pulmonary disease) Current use of insulin Difficulty swallowing DVT (deep venous thrombosis) Former tobacco use History of kidney cancer Myocardial infarct Obesity CAMACHO (obstructive sleep apnea) Osteomyelitis Polycythemia secondary to hypoxia Status post debridement of ulcer of heel Type 2 diabetes mellitus with diabetic polyneuropathy Wears hearing aid in both ears Home Medications ascorbic acid (vitamin C) 1,000 mg tablet 1,000 mg PO TID vitamin 07/11/20 [History Last Taken 05/27/21] aspirin 81 mg chewable tablet 81 mg PO DAILY@0800 heart health 07/11/20 [History Last Taken 05/27/21] atorvastatin 80 mg tablet 80 mg PO QHS cholesterol 07/11/20 [History Last Taken 05/27/21] carvedilol 12.5 mg tablet 12.5 mg PO DAILY blood pressure 08/17/20 [History Last Taken 06/01/21 08:10] cholecalciferol (vitamin D3) 125 mcg (5,000 unit) capsule 125 mcg PO DAILY Supplement 05/28/21 [History Last Taken 05/27/21] gabapentin 800 mg tablet 800 mg PO TID neuropathy 06/29/21 [History Last Taken Unknown] insulin glargine 100 unit/mL (3 mL) subcutaneous pen (Lantus Solostar U-100 Insulin) 40 units subcut QHS diabetes 06/29/21 [History Last Taken Unknown] insulin lispro 100 unit/mL subcutaneous pen 120 unit subcut TIDCM diabetes 06/29/21 [History Last Taken Unknown] nutritional supplements 1 ea PO BID supplement 06/29/21 [History Last Taken Unknown] zinc sulfate 50 mg zinc (220 mg) capsule 220 mg PO DAILY supplement 06/29/21 [History Last Taken Unknown] amoxicillin 875 mg-potassium clavulanate 125 mg tablet 1 tab PO BID #20 tabs 10/10/21 [Rx Last Taken Unknown] doxycycline hyclate 100 mg capsule 100 mg PO BID #20 caps 10/10/21 [Rx Last Taken Unknown] apixaban 5 mg (74 tabs) tablets in a dose pack (Eliquis DVT-PE Treat 30D Start) 5 mg PO BID #74 tabs 11/05/21 [Rx Last Taken Unknown] glipizide 10 mg tablet, extended release 24 hr 1 tab PO DAILY 11/05/21 [History Last Taken Unknown] losartan 50 mg tablet 50 tab PO DAILY 11/05/21 [History Last Taken Unknown] magnesium 500 mg tablet 500 mg PO DAILY 11/05/21 [History Last Taken Unknown] apixaban 5 mg tablet (Eliquis) 10 mg PO BID 11/07/21 [History Last Taken Unknown] Allergy/AdvReac Type Severity Reaction Status Date / Time codeine AdvReac Nausea Verified 11/12/21 12:35 promethazine [From Phenergan] AdvReac Nausea Verified 11/12/21 12:35 Family History Father CVA (cerebral vascular accident) Myocardial infarction Mother Dementia Surgical History History of appendectomy History of coronary artery stent placement History of surgery on arm Hx of partial nephrectomy Previous back surgery S/P appendectomy Social History household members: none Smoking Status: Light Smoker (<10/day) Tobacco: How many years used: 50 how long ago did patient quit smoking: Smoked ~1/2 ppd x 50 years until quit. alcohol intake: never substance use type: does not use ROS ROS ED Constitutional Constitutional ED: Denies chills or fever(s) Eyes Eyes: Denies blurry vision or change in vision ENT ENT ED: Denies rhinorrhea or sore throat Cardiovascular Cardiovascular: Denies chest pain or palpitations Respiratory/Chest Respiratory/Chest: Denies cough or dyspnea Gastrointestinal Gastrointestinal: Denies nausea or vomiting Genitourinary Genitourinary ED: Denies dysuria or hematuria Musculoskeletal Musculoskeletal: Denies back pain or neck pain Integumentary Denies abscess or rash Neurologic Neurologic: Denies headache(s) or weakness Allergic/Immunologic Allergic/Immunologic ED: Denies mouth swelling or urticaria EXAM Physical Exam Const Vital Signs: 11/12/21 12:36 Temperature 97.5 F L Temperature Source Temporal Pulse Rate 63 Respiratory Rate 17 Blood Pressure 135/72 H Blood Pressure Mean 93 Pulse Ox 96 Oxygen Delivery Method Room Air Positive well nourished and well developed General Appearance ED: well developed and NAD HEENT Reports moist mucous membranes Extremity Extremity Narrative: There is tenderness and edema over the left foot and ankle. There is no bony crepitance or step-off. There is no obvious deformity. Range of motion was limited in all motions of the left foot and ankle secondary to pain and swelling. Sensation was slightly diminished to light touch in all digits. Capillary refill was less than 2 seconds in all digits. There is no calf tenderness. Neuro oriented x3, CN's II-XII intact bilaterally and moves all extremities Sensorium / Orientation: alert Motor Exam: strength 5/5 throughout Psych mental status grossly normal MDM MDM MDM Narrative Medical decision making narrative: X-rays of the left ankle were obtained. There are 3 views. On my interpretation, there is no acute fracture. There is some soft tissue swelling. There are some air within the soft tissues. There is some erosive changes in the calcaneus suggestive of osteomyelitis. Radiologist also interpreted the x-rays and agrees. Patient is currently being treated for osteomyelitis. Patient was advised of his findings. Patient was instructed to follow-up with his supervisor money room as scheduled. Patient understood and was agreeable with the plan. All questions were answered. Radiography Diagnostic Testing: Clinical Impression(s) from Imaging Studies Ankle X-Ray 11/12/21 12:45 IMPRESSION: Soft tissue ulceration along the posterior plantar aspect of the calcaneus with evidence of erosive changes in the calcaneus suggestive of osteomyelitis. Soft tissue swelling. Small amount of air is seen within the soft tissues. Electronically Signed: James Bell MD at 13:32 EDT , Discharge Plan Triage Chief Complaint: Lower Extremity Injury ED Provider: Toney Guallpa Dx/Rx/DC Orders Clinical Impression: Left ankle sprain, Osteomyelitis Instructions: ED Ankle Sprain (Adult) Prescriptions: No Action atorvastatin 80 MG tablet 80 mg PO QHS ascorbic acid (vitamin C) 1,000 MG tablet 1,000 mg PO TID aspirin 81 MG tablet,chewable 81 mg PO DAILY@0800 carvedilol 12.5 MG tablet 12.5 mg PO DAILY cholecalciferol (vitamin D3) 125 mcg (5,000 unit) Capsule 125 mcg PO DAILY nutritional supplements Powder 1 ea PO BID insulin lispro 100 unit/mL Insulin Pen 120 unit SUBCUT TIDCM gabapentin 800 mg tablet 800 mg PO TID zinc sulfate 50 mg zinc (220 mg) capsule 220 mg PO DAILY insulin glargine [Lantus Solostar U-100 Insulin] 100 unit/mL (3 mL) insulin pen 40 units subcut QHS amoxicillin-pot clavulanate 875-125 mg tablet 1 tab PO BID Qty: 20 0RF doxycycline hyclate 100 mg capsule 100 mg PO BID Qty: 20 0RF Eliquis 5 mg Tablet 10 mg PO BID Rx Instructions: 10mg BID for 7 days then 5mg BID losartan 50 mg tablet 50 tab PO DAILY Label Comments: Take 1 tablet by mouth once daily. glipizide 10 mg tablet extended release 24hr 1 tab PO DAILY Label Comments: TAKE 1 TABLET TWICE DAILY magnesium 500 mg Tablet 500 mg PO DAILY Eliquis DVT-PE Treat 30D Start 5 mg (74 tabs) tablets,dose pack 5 mg PO BID Qty: 74 0RF Rx Instructions: 10 mg orally twice a day for the first 7 days, then 5 mg orally twice a day Primary [facility] Provider: [facility] ,Out of Referrals: Tiffany Chapman DPM [STAFF PHYSICIAN] - Keep Kemi appointment [facility] Doctor,Out of [Primary Care Provider] - Disposition Disposition: Home, Self Care
== END 2021-11-12 15:35 | disposition home or self-care (01) ==
PROVIDERS: Emergency Provider Emergency Medicine; Visit Provider Emergency Medicine
DX: S93.402A Sprain of unspecified ligament of left ankle, initial encounter (principal); M86.9 Osteomyelitis, unspecified; F17.200 Nicotine dependence, unspecified, uncomplicated; G47.33 Obstructive sleep apnea (adult) (pediatric); W19.XXXA Unspecified fall, initial encounter; Z86.718 Personal history of other venous thrombosis and embolism; Z95.5 Presence of coronary angioplasty implant and graft
CPT/HCPCS: 73610; 99282

== ENCOUNTER 2021-11-14 10:15 | Outpatient (RCR) | payer MEDICARE, BC, SELFPAY ==
[2021-10-17 00:44] VITALS: BP 133/57; PULSE 61; RESP 20; TEMP 36.2; BMI 33.7
[2021-10-17 11:01] VITALS: BP 131/58; PULSE 64; RESP 20; TEMP 36.8; BMI 33.7
--- NOTE | 2021-10-17 11:25 | BONBX_PTH ---
PATIENT: JUAREZ GOODRICH LOC: U#:[id number] AGE/SX: 66/M ROOM: RE11/14/[address]: Dr. Tiffany Chapman DPM : 1955 BED: DIS: 11/15/2021 SPEC #: [id number] RECD: 10/17/21 11:43 STATUS: MALENA REIsabel #: [id number] GILBERTO: 10/17/21 11:[address]: Tiffany Chapman DEPT: SURGICAL PATHOLOGY RECD BY: Kimberly Acevedo ENTERED: 10/17/21 13:54 SP TYPE: Bone OTHR DR: Dr. Chelsea Nair, HOOD No Primary Care Phys Tissues: Bone of foot, NOS Procedures: Decalcification bone/plaque Surgery Specimen Level V HEADER OPERATION: Bone biopsy left heel PRE-OP DIAGNOSIS: Ulcer chronic with exposed bone TISSUE SUBMITTED: Bone left heel MICROSCOPIC DIAGNOSIS Bone of left heel, bone biopsy: Consistent with acute osteomyelitis. Osteonecrosis. AM:dominique 10/18/2021 MICROSCOPIC DESCRIPTION Slides are reviewed. GROSS DESCRIPTION Received in fixative is one container labeled with the patient's name and designated left heel ulcer bone biopsy. The specimen consists of a single irregular fragment of velazquez bone measuring 1.4 x 0.2 x 0.2 cm. The specimen is totally submitted in one cassette after decalcification. / AM:dominique 10/17/2021 TC:2 CPT: 12012, 93440
--- NOTE | 2021-10-17 11:43 | PN.PCM_ITS ---
History of Present Illness Date of Service: 10/17/21 Chief Complaint: left heel and arch ulcers History of Wound: Patient presents for chronic non healing wound to left plantar foot (heel and arch). A limb and life-threatening infection which required emergent surgical intervention on 05-29-2021. He has been demonstrating improvement with total contact cast applications however had recent anteriorization and now has exposed bone to the heel. A culture demonstrated multi organism growth. He is scheduled to see Dr. Raphael, infectious disease specialist this afternoon. He denies fever, chill, nausea, vomiting, pain, odor, redness. He is keeping weight off of his foot he reports. He denies redness. He has been taking doxycycline and Augmentin as prescribed. Progress of Wound: Left improving arch Worsening status with exposed bone to the left heel Objective Data Objective Data Vital Signs: Vital Signs Temp Pulse Resp BP 98.3 F 64 20 H 131/58 H 10/17/21 11:01 10/17/21 11:01 10/17/21 11:01 10/17/21 11:01 Body Mass Index (BMI) 33.7 Debridement Note Debridement Note Wound debrided: left arch, left heel Wound Grade/Stage: 3,3 Type of Debridement: Excisional debridement Anesthesia Used: 4% Lidocaine Solution Depth: in the subcutaneous layer Percentage of wound debrided: 100 Instrument Used: #15 blade Tissue Removed: fibrous, devitalized subcutaneous, biofilm, slough Severity: Fat Layer Exposed Amount of bleeding with debridement: Mild Bleeding Controlled with: Pressure Patient tolerated procedure: Patient tolerated procedure well Post-Debridement Measurements and Additional Note: Post-Debridement Measurements/Treatment - Nurse 1 - General Ulcer Assessment Start: 10/17/21 10:55 Freq: Status: Active Protocol: [email or web address] Activity Type Activity Date Activity User E-Sign Co-Sign Detail Recorded Client Recorded Date Recorded By Document 10/17/21 11:01 JULIO C [id number] 10/17/21 11:10 JULIO C 10/17/21 11:01 - Today's Visit Information Type of service Follow-up Visit (Physician/WELDING 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 [employer]URNER ) Arrival Mode Wheelchair Transfer Assistance Manual Transfer Assist (Other) x2 Patient Identification Verified (Name & Yes ) Patient Requires Transmission-Based No Precautions Height and Weight Body Mass Index (BMI) 33.7 BMI Classification Obese Vital Signs Temperature (97.8 F-99.1 F) 98.3 F Temperature Source Temporal Pulse Rate (60-100) 64 Pulse Location Monitor Respiratory Rate (12-18) 20 H Respiratory rate source Observation Blood Pressure (90/60-120/80) 131/58 H Blood Pressure Mean (mm Hg) 82 Source Monitor History Since Last Visit- (Skip if this is Patient's initial visit) Have you changed medications since your No last visit? Any new allergies or adverse reactions No Had a fall/change in ADL's that may No increase risk of falls Signs or symptoms of abuse and/or No neglect since last visit Have you been in the hospital since your No last visit? Has dressing in place as prescribed Yes Has compression in place as prescribed N/A Has offloadiing in place as prescribed Yes Experienced any changes in pain level or No management Pain Scale: 0-10 Numeric Is Patient Pain Free? Yes WC - Nurse 1 - General Ulcer Measurement Start: 10/17/21 10:55 Freq: Status: Active Protocol: Activity Type Activity Date Activity User E-Sign Co-Sign Detail Recorded Client Recorded Date Recorded By Document 10/17/21 11:01 JULIO C [id number] 10/17/21 11:10 JULIO C 10/17/21 11:01 Wound Center Nurse 1 4-left plantar arch -Current Size (cm) - Length 1.2 -Current Size (cm) - Width 1.8 -Current Size (cm) - Depth 0.1 -Total Square Cm 2.16 -Photo Taken No -Exudate Amt Small -Exudate Type Serosanguineous -Wound Margin Thickened -Granulation Amt Large (67-100%) -Granulation Quality [place],Red -Necrosis Amt Small (1-33%) -Necrotic Tissue Type Adherent Slough -Texture (Margaret-wound Skin Appearance) Callus, Localized Edema ,Scarring -Moisture (Margaret-wound Skin Appearance) Maceration -Color (Margaret-wound Skin Appearance) Hemosiderin Staining -Temperature (Margaret-wound Skin No Abnormality Appearance) (Pt Warm) -Tenderness on Palpation (Margaret-wound No Skin Appearance) -Ulcer Cleansing Soap and Water -Foul Odor after Cleansing No -Anesthetic Used 5% Lidocaine Gel #1 left heel cluster -Current Size (cm) - Length 2.6 -Current Size (cm) - Width 1.8 -Current Size (cm) - Depth 1.7 -Total Square Cm 4.68 -Photo Taken Yes -Undermining/Tunneling Starts (O'clock 7 ) -Undermining/Tunneling Ends (O'clock) 11 -Maximum Distance (cm) 0.5 -Exudate Amt Medium -Exudate Type Serosanguineous -Wound Margin Thickened -Granulation Amt Medium (34-66%) -Granulation Quality [place] -Necrosis Amt Medium (34-66%) -Necrotic Tissue Type Adherent Slough -Structure Exposed Bone -Texture (Margaret-wound Skin Appearance) Localized Edema ,Scarring -Moisture (Margaret-wound Skin Appearance) Maceration -Color (Margaret-wound Skin Appearance) Hemosiderin Staining -Temperature (Margaret-wound Skin No Abnormality Appearance) (Pt Warm) -Tenderness on Palpation (Margaret-wound No Skin Appearance) -Ulcer Cleansing Soap and Water -Foul Odor after Cleansing No -Anesthetic Used 5% Lidocaine Gel WC - Nurse 2 - General Ulcer CM Notes Start: 10/17/21 10:55 Freq: Status: Active Protocol: Activity Type Activity Date Activity User E-Sign Co-Sign Detail Recorded Client Recorded Date Recorded By Document 10/17/21 11:18 [id number] 10/17/21 11:30 10/17/21 11:18 Wound Center Nurse 2 4-left plantar arch -Time 11:19 -Correct Patient Yes -Correct Side, Site, Position Yes -Correct Procedure Yes -Procedure Performed Yes -Type of Procedure Debridement -Clinical Debridement Subcutaneous -Tissue Removed Subcutaneous -Post Debridement (cm) - Length 1.2 -Post Debridement (cm) - Width 1.9 -Post Debridement (cm) - Depth 0.1 -Total Square (Post) (cm) 2.28 -Area of Debridement (cm) - Length 1.2 -Area of Debridement (cm) - Width 1.9 -Total Square (Area) (cm) 2.28 -Tunneling No -Undermining/Tunneling No -Circular Undermining No -Wound/Ulcer Outcome Not Healed -Ulcer Cleansing Rinsed/ Irrigated with Saline -Foul Odor after Cleansing No -Bioengineered Tissue No -Bleeding Controlled with Pressure -Treatment Response Procedure Tolerated Well -Offloading Yes -Type of Offloading Camwalker -Assistive Device(s) Wheelchair -Debridement - Subq, 1st 20sq cm Yes #1 left heel cluster -Time 11:19 -Correct Patient Yes -Correct Side, Site, Position Yes -Correct Procedure Yes -Procedure Performed Yes -Type of Procedure Debridement -Clinical Debridement Bone -Tissue Removed Biofilm -Post Debridement (cm) - Length 2.6 -Post Debridement (cm) - Width 1.8 -Post Debridement (cm) - Depth 1.8 -Total Square (Post) (cm) 4.68 -Area of Debridement (cm) - Length 2.6 -Area of Debridement (cm) - Width 1.8 -Total Square (Area) (cm) 4.68 -Tunneling No -Undermining/Tunneling No -Circular Undermining No -Wound/Ulcer Outcome Not Healed -Ulcer Cleansing Rinsed/ Irrigated with Saline -Bioengineered Tissue No -Bleeding Controlled with Pressure -Treatment Response Procedure Tolerated Well -Offloading Yes -Type of Offloading Camwalker -Debridement - Bone, 1st 20sq cm Yes Pain Scale: 0-10 Numeric Is Patient Pain Free? 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: with intermodal truck driver use Qualified Code(s): E11.42 - Type 2 diabetes mellitus with diabetic polyneuropathy; 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 (6) Diabetic foot ulcer: CODE(S): E11.621 - Type 2 diabetes mellitus with foot ulcer; L97.509 - Non-pressure chronic ulcer of other part of unspecified foot with unspecified severity QUALIFIERS: Diabetic foot ulcer location: heel Diabetes mellitus type: type 2 Laterality: left Non-pressure ulcer stage: with fat layer exposed Qualified Code(s): E11.621 - Type 2 diabetes mellitus with foot ulcer; L97.422 - Non-pressure chronic ulcer of left heel and midfoot with fat layer exposed (7) Tobacco abuse: CODE(S): Z72.0 - Tobacco use (8) Cellulitis of left lower limb: CODE(S): L03.116 - Cellulitis of left lower limb (9) Chronic ulcer of left foot with necrosis of bone: CODE(S): L97.524 - Non-pressure chronic ulcer of other part of left foot with necrosis of bone (10) Foot osteomyelitis: CODE(S): M86.9 - Osteomyelitis, unspecified (11) Difficulty in walking: CODE(S): R26.2 - Difficulty in walking, not elsewhere classified PLAN: Patient seen and examined. I reviewed and discussed his case. Debridement was performed as noted in the clinical nursing panel. Dressing recommendation: Dakin wet-to-dry daily. We will resume total contact casting hopefully next week. He will require home health assistance for he is unable to perform this on his own. Home health was set up however they cannot come daily. Patient wound is noted to have improved with healthier appearance and there is no malodor. However, there is now probe to bone to the heel I am concerned that he has some osteomyelitis deteriorization development. He has multi organism bacterial growth with prior culture noted. I recommend culturing a bone specimen today due to increased pain and bone exposure. A clean sterile rongeur was used to obtain a specimen for both microbiology (aerobic, anaerobic, acid- fast, fungal) and pathology and the results are pending. He was seen by infectious disease during his last hospital admission and he had surgery on 05-29-2021. At this time, I do recommend an updated infectious disease evaluation and he is scheduled for this afternoon. Additional input will be greatly appreciated. X-rays were negative for new acute osseous changes soft tissue emphysema or foreign body of this foot. Cultures demonstrated MRSA, Enterobacter, Enterococcus faecalis, corynebacterium. He is currently taking Augmentin and doxycycline. Offloading: To maintain a strict nonweightbearing status to the ulcer to the foot. Advance wound options: He has a status change now with new diagnosis of osteomyelitis. I recommend hyperbaric oxygen therapy if he is medically cleared to undergo such treatment. He reports he is available to come in 5 days a week for couple hours each day and he has anticipated reliable transportation. He will go for history and physical exam with Zulma Long, clinical nurse practitioner next week. It is noted he has COPD sleep apnea and obesity. His last EKG and chest x-ray on file were performed June 2021 and he was also seen by program director/music director and July 2021. I do not see an echo on file. Patient relates he had follow-up appointment with his primary care provider, Priyanka Brown, and relates that she did not change any medication and stated he was doing okay. 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 Mykel Barraza. He was able to follow-up and recommendations were updated. Edema management: Medical management per primary care. To reduce salt in diet. Total contact cast will also aide in edema reduction if this considered upon continued foot stability and resolution of infection status. Arterial studies were reviewed. Showing likely adequate perfusion for healing. Right LAI is 0.99 and left 1.18. Right toe brachial index 0.76 and left 0.71. Referral to Dr. Campos for potential venous and arterial intervention was provided today. He went for consultationon 04-11-21. Will recheck duplex to make sure normal posterior tibial flow into the area of the wound. normal prior LAI noted. Host factors: His multiple comorbidities are noted including diabetes and smoking history. Also recommend improvement in nutritional status which involves taking in adequate protein and also focusing on eating 5-10 whole foods daily. Gait abnormality/walking difficulty: I recommend PT and OT intervention with his home health agency. A referral was provided today. He is at risk for falling. He is fragile and has demonstrated progressive deterioration. All questions answered. He understands below-knee amputation is an option as well if he cannot keep pressure off the site, if pain becomes intolerable, and if he no longer is able to proceed with a comprehensive wound healing plan. He defers at this time. Patient to follow up in 1 week or call sooner if status worsening or if questions. I answered all of his questions. This note was generated with [employer] dictation software. It may contain incorrect words, spelling, and punctuation that were not noted in checking the note before signing. The medical decision making level is moderate. There is noted moderate risk of morbidity after considering this treatment plan and diagnostic data. Considerations were given to prescription management, decisions regarding surgical options, or social determinants of health. The problems addressed require a moderate decision making level which includes one or more chronic illnesses (w/ exacerbation, progression, or side effects), two or more stable chronic illnesses, one undiagnosed new problem w/ uncertain prognosis, one acute illness with systemic symptoms, or one acute complicated injury.
[2021-10-24 08:12] VITALS: BP 138/76; PULSE 69; RESP 18; TEMP 36.2; BMI 33.7
--- NOTE | 2021-10-24 09:09 | PN.PCM_ITS ---
History of Present Illness Date of Service: 10/24/21 Chief Complaint: left heel and arch ulcers History of Wound: Patient presents for chronic non healing wound to left plantar foot (heel and arch). A limb and life-threatening infection which required emergent surgical intervention on 05-29-2021. He has been demonstrating improvement with total contact cast applications however had recent anteriorization and now has exposed bone to the heel now with additional osteomyelitis. A culture demonstrated multi organism growth. He is scheduled to see Dr. Raphael, infectious disease specialist this afternoon. He denies fever, chill, nausea, vomiting, pain, odor, redness. He is keeping weight off of his foot he reports. He denies redness. He has been taking doxycycline and Augmentin as prescribed. He is having HBO medical evaluation today and will go for further testing. He is also following up with pain managment. Progress of Wound: Left improving arch Worsening status with exposed bone to the left heel Objective Data Objective Data Vital Signs: Vital Signs Temp Pulse Resp BP 97.2 F L 69 18 138/76 H 10/24/21 08:12 10/24/21 08:12 10/24/21 08:12 10/24/21 08:12 Body Mass Index (BMI) 33.7 Lab / Micro Data Micro: Microbiology 10/17/21 11:24 Bone - Other Gram Stain - Final 10/17/21 11:24 Bone - Other Wound Culture - Final Enterobacter cloacae complex Meth. resistant Staph. aureus Corynebacterium striatum 10/17/21 11:24 Bone - Other Anaerobic Culture - Final No anaerobic bacteria isolated. Physical Exam Narrative Const alert and no apparent distress General Appearance: cooperative and comfortable Extremity There is diffuse left foot/ankle and leg swelling. Left foot s/p debridement to arch and heel, tissues are healthy and viable, granular. no longer visualized fascia and muscle layer to the arch. positive probe to bone is now larger area to the heel. There is no streaking or odor, compartments remain soft to palpate, there is no fluctuance or bogginess on palpation, no drainage, no visible abscess, no cellulitis, no blistering present. Hematogenous / serosanguineous drainage only upon debridement. Periwound moisture and maceration is has resolved. General Extremity: Negative for clubbing or cyanosis to digits. Vasc normal capillary refill, no acute ischemic skin changes noted, normal temperature bilateral. Skin Skin Narrative: Wound Narrative: Neuro Neuro Narrative: Debridement Note Debridement Note Wound debrided: left heel, left arch Wound Grade/Stage: 3 Type of Debridement: Excisional debridement Anesthesia Used: 4% Lidocaine Solution Depth: in the subcutaneous layer Percentage of wound debrided: 100 Instrument Used: #15 blade Tissue Removed: fibrous, devitalized subcutaneous, biofilm, slough Severity: Fat Layer Exposed Amount of bleeding with debridement: Mild Bleeding Controlled with: Pressure Patient tolerated procedure: Patient tolerated procedure well Post-Debridement Measurements and Additional Note: Post-Debridement Measurements/Treatment - Nurse 1 - General Ulcer Assessment Start: 10/17/21 10:55 Freq: Status: Active Protocol: EVELYN Activity Type Activity Date Activity User E-Sign Co-Sign Detail Recorded Client Recorded Date Recorded By Document 10/17/21 11:01 DL [id number] 10/17/21 11:10 DL Document 10/24/21 08:12 RB [id number] 10/24/21 08:21 RB 10/17/21 10/24/21 11:01 08:12 - Today's Visit Information Type of service Follow-up Visit Follow-up Visit (Physician/OPERATIONS PROFESSIONAL (Physician/OPERATIONS PROFESSIONAL ) ) Arrival Mode Wheelchair Wheelchair Transfer Assistance Manual Manual Transfer Assist (Other) x2 Patient Identification Verified (Name & Yes Yes ) Patient Requires Transmission-Based No No Precautions Height and Weight Body Mass Index (BMI) 33.7 33.7 BMI Classification Obese Obese Vital Signs Temperature (97.8 F-99.1 F) 98.3 F 97.2 F L Temperature Source Temporal Temporal Pulse Rate (60-100) 64 69 Pulse Location Monitor Monitor Respiratory Rate (12-18) 20 H 18 Respiratory rate source Observation Observation Blood Pressure (90/60-120/80) 131/58 H 138/76 H Blood Pressure Mean (mm Hg) 82 96 Source Monitor Monitor Position Semi-Fowlers Blood Pressure Location Left Arm History Since Last Visit- (Skip if this is Patient's initial visit) Have you changed medications since your No No last visit? Any new allergies or adverse reactions No No Had a fall/change in ADL's that may No No increase risk of falls Signs or symptoms of abuse and/or No No neglect since last visit Have you been in the hospital since your No No last visit? Has dressing in place as prescribed Yes Yes Has compression in place as prescribed N/A No Has offloadiing in place as prescribed Yes Yes Experienced any changes in pain level or No No management Left Footwear Surgical Shoe with pressure relief insole Right Footwear Regular Shoe Pain Scale: 0-10 Numeric Is Patient Pain Free? Yes No LLE -Description Aching -Intensity 9 -Duration (hours) Acute -Pain Behavior Withdrawal from Touch -Pain Aggravating Factors ADL's -Alleviating Factors/Interventions Medication -Effectiveness of Alleviating Factor/ Minimally Intervention effective WC - Nurse 1 - General Ulcer Measurement Start: 10/17/21 10:55 Freq: Status: Active Protocol: Activity Type Activity Date Activity User E-Sign Co-Sign Detail Recorded Client Recorded Date Recorded By Document 10/17/21 11:01 DL [id number] 10/17/21 11:10 DL Document 10/24/21 08:12 RB [id number] 10/24/21 08:21 RB 10/17/21 10/24/21 11:01 08:12 Wound Center Nurse 1 4-left plantar arch -Combined with other wound No -Current Size (cm) - Length 1.2 1.6 -Current Size (cm) - Width 1.8 1.4 -Current Size (cm) - Depth 0.1 0.1 -Total Square Cm 2.16 2.24 -Photo Taken No Yes -Tunneling No -Undermining/Tunneling No -Circular Undermining No -Exudate Amt Small Large -Exudate Type Serosanguineous Serosanguineous -Wound Margin Thickened Distinct, Outline Attached -Granulation Amt Large (67-100%) Medium (34-66%) -Granulation Quality Hortense,Red Hortense -Slough/Fibrin Yes -Necrosis Amt Small (1-33%) Medium (34-66%) -Necrotic Tissue Type Adherent Slough Adherent Slough -Structure Exposed N/A -Texture (Margaret-wound Skin Appearance) Callus, Callus Localized Edema ,Scarring -Moisture (Margaret-wound Skin Appearance) Maceration Maceration -Color (Margaret-wound Skin Appearance) Hemosiderin Assessed Staining -Temperature (Margaret-wound Skin No Abnormality No Abnormality Appearance) (Pt Warm) (Pt Warm) -Tenderness on Palpation (Margaret-wound No No Skin Appearance) -Ulcer Cleansing Soap and Water Wound Cleanser -Foul Odor after Cleansing No No -Anesthetic Used 5% Lidocaine 4% Lidocaine Gel Solution,5% Lidocaine Gel #1 left heel cluster -Combined with other wound No -Current Size (cm) - Length 2.6 3 -Current Size (cm) - Width 1.8 3.4 -Current Size (cm) - Depth 1.7 1.9 -Total Square Cm 4.68 10.2 -Photo Taken Yes Yes -Tunneling No -Undermining/Tunneling Yes -Undermining/Tunneling Starts (O'clock 7 9 ) -Undermining/Tunneling Ends (O'clock) 11 12 -Maximum Distance (cm) 0.5 1.3 -Exudate Amt Medium Medium -Exudate Type Serosanguineous Serosanguineous -Wound Margin Thickened Distinct, Outline Attached -Granulation Amt Medium (34-66%) Medium (34-66%) -Granulation Quality Hortense Hortense -Slough/Fibrin Yes -Necrosis Amt Medium (34-66%) Medium (34-66%) -Necrotic Tissue Type Adherent Slough Adherent Slough -Structure Exposed Bone N/A -Texture (Margaret-wound Skin Appearance) Localized Edema Assessed,Callus ,Scarring -Moisture (Margaret-wound Skin Appearance) Maceration Maceration -Color (Margaret-wound Skin Appearance) Hemosiderin Assessed Staining -Temperature (Margaret-wound Skin No Abnormality No Abnormality Appearance) (Pt Warm) (Pt Warm) -Tenderness on Palpation (Margaret-wound No No Skin Appearance) -Ulcer Cleansing Soap and Water Wound Cleanser -Foul Odor after Cleansing No No -Anesthetic Used 5% Lidocaine 4% Lidocaine Gel Solution,5% Lidocaine Gel WC - Nurse 2 - General Ulcer CM Notes Start: 10/17/21 10:55 Freq: Status: Active Protocol: Activity Type Activity Date Activity User E-Sign Co-Sign Detail Recorded Client Recorded Date Recorded By Document 10/17/21 11:18 DANIEL [id number] 10/17/21 11:30 Document 10/24/21 08:37 [id number] 10/24/21 08:38 10/17/21 10/24/21 11:18 08:37 Wound Center Nurse 2 4-left plantar arch -Time 11:19 08:37 -Correct Patient Yes Yes -Correct Side, Site, Position Yes Yes -Correct Procedure Yes Yes -Procedure Performed Yes Yes -Type of Procedure Debridement Debridement -Clinical Debridement Subcutaneous Subcutaneous -Tissue Removed Subcutaneous Subcutaneous -Post Debridement (cm) - Length 1.2 1.6 -Post Debridement (cm) - Width 1.9 1.5 -Post Debridement (cm) - Depth 0.1 0.1 -Total Square (Post) (cm) 2.28 2.40 -Area of Debridement (cm) - Length 1.2 1.6 -Area of Debridement (cm) - Width 1.9 1.5 -Total Square (Area) (cm) 2.28 2.40 -Tunneling No No -Undermining/Tunneling No No -Circular Undermining No No -Wound/Ulcer Outcome Not Healed Not Healed -Ulcer Cleansing Rinsed/ Rinsed/ Irrigated with Irrigated with Saline Saline -Foul Odor after Cleansing No No -Bioengineered Tissue No No -Bleeding Controlled with Pressure Pressure -Treatment Response Procedure Procedure Tolerated Well Tolerated Well -Offloading Yes Yes -Type of Offloading i3 membrane Camwalker -Assistive Device(s) Wheelchair -Debridement - Subq, 1st 20sq cm Yes No #1 left heel cluster -Time 11:19 08:38 -Correct Patient Yes Yes -Correct Side, Site, Position Yes Yes -Correct Procedure Yes Yes -Procedure Performed Yes Yes -Type of Procedure Debridement Debridement -Clinical Debridement Bone Subcutaneous -Tissue Removed Biofilm Subcutaneous -Post Debridement (cm) - Length 2.6 3.0 -Post Debridement (cm) - Width 1.8 3.5 -Post Debridement (cm) - Depth 1.8 2.0 -Total Square (Post) (cm) 4.68 10.50 -Area of Debridement (cm) - Length 2.6 3.0 -Area of Debridement (cm) - Width 1.8 3.5 -Total Square (Area) (cm) 4.68 10.50 -Tunneling No No -Undermining/Tunneling No No -Circular Undermining No No -Wound/Ulcer Outcome Not Healed Not Healed -Ulcer Cleansing Rinsed/ Rinsed/ Irrigated with Irrigated with Saline Saline -Foul Odor after Cleansing No -Bioengineered Tissue No No -Bleeding Controlled with Pressure Pressure -Treatment Response Procedure Procedure Tolerated Well Tolerated Well -Offloading Yes Yes -Type of Offloading Camwalker Knee Walker -Debridement - Subq, 1st 20sq cm Yes -Debridement - Bone, 1st 20sq cm Yes Pain Scale: 0-10 Numeric Is Patient Pain Free? Yes Yes - Nurse 3 - General Ulcer D/C NN Start: 10/17/21 10:55 Freq: Status: Active Protocol: Activity Type Activity Date Activity User E-Sign Co-Sign Detail Recorded Client Recorded Date Recorded By Document 10/17/21 11:59 RB [id number] 10/17/21 12:00 RB Document 10/24/21 08:47 DL [id number] 10/24/21 08:50 DL 10/17/21 10/24/21 11:59 08:47 Wound Care Nurse 3 4-left plantar arch -Ulcer Cleansing Soap and Water -Foul Odor after Cleansing No -Other Dressing saline Betadine/ moistened gauze superabsorber -Primary Dressing Covered/Secured with Dry Gauze,Dry Dry Gauze & Gauze & Roll Roll Gauze, Gauze,Secured Secured with with Tape Tape #1 left heel cluster -Ulcer Cleansing Rinsed/ Soap and Water Irrigated with Saline -Foul Odor after Cleansing No -Other Dressing saline Bertadine/ moistened gauze Superabsorber -Primary Dressing Covered/Secured with Dry Gauze,Dry Dry Gauze & Gauze & Roll Roll Gauze, Gauze,Secured Secured with with Tape Tape Left -Multi-Layered Wrap Application Multi-Layer Comp - Left ($) -Other aayush Treatment Response Procedure Procedure Tolerated Well Tolerated Well Pain Scale: 0-10 Numeric Is Patient Pain Free? Yes Yes - Visit Discharge Discharge Condition Stable Stable Ambulatory Status Wheelchair Wheelchair Transportation Private Auto Private Auto Medication Reconcilliation completed & No provided to patient/care provider Clinical Summary of Care Provided Yes Facility Type Home Health Notes: HH to resume Dakins at home Orders Sent Yes Assessment/Plan Assessment/Plan (1) Non-pressure chronic ulcer of left heel and midfoot with fat layer exposed: CODE(S): L97.422 - Non-pressure chronic ulcer of left heel and midfoot with fat layer exposed (2) Localized edema: CODE(S): R60.0 - Localized edema (3) Diabetes mellitus: CODE(S): E11.9 - Type 2 diabetes mellitus without complications (4) Type 2 diabetes mellitus with diabetic polyneuropathy: CODE(S): E11.42 - Type 2 diabetes mellitus with diabetic polyneuropathy QUALIFIERS: Diabetes mellitus long-term insulin use: with long-term use Qualified Code(s): E11.42 - Type 2 diabetes mellitus with diabetic polyneuropathy; 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 (5) Diabetic foot ulcer: CODE(S): E11.621 - Type 2 diabetes mellitus with foot ulcer; L97.509 - Non-pressure chronic ulcer of other part of unspecified foot with unspecified severity QUALIFIERS: Diabetes mellitus type: type 2 Diabetic foot ulcer location: heel Laterality: left Non-pressure ulcer stage: with fat layer exposed Qualified Code(s): E11.621 - Type 2 diabetes mellitus with foot ulcer; L97.422 - Non-pressure chronic ulcer of left heel and midfoot with fat layer exposed (6) Tobacco abuse: CODE(S): Z72.0 - Tobacco use (7) Cellulitis of left lower limb: CODE(S): L03.116 - Cellulitis of left lower limb (8) Chronic ulcer of left foot with necrosis of bone: CODE(S): L97.524 - Non-pressure chronic ulcer of other part of left foot with necrosis of bone (9) Foot osteomyelitis: CODE(S): M86.9 - Osteomyelitis, unspecified QUALIFIERS: Laterality: left Osteomyelitis type: other acute Qualified Code(s): M86.172 - Other acute osteomyelitis, left ankle and foot (10) Difficulty in walking: CODE(S): R26.2 - Difficulty in walking, not elsewhere classified (11) Left foot pain: CODE(S): M79.672 - Pain in left foot PLAN: Patient seen and examined. I reviewed and discussed his case. Debridement was performed as noted in the clinical nursing panel. Dressing recommendation: Dakin wet-to-dry daily. We will resume total contact casting hopefully next week. He will require home health assistance for he is unable to perform this on his own. Home health was set up however they cannot come daily. Patient wound is noted to have improved with healthier appearance and there is no malodor. However, there is now increased visualization bone to the heel I am concerned that he has some osteomyelitis deteriorization development. He has multi organism bacterial growth with prior culture noted. I recommend culturing a bone specimen today due to increased pain and bone exposure. A clean sterile rongeur was used to obtain a specimen for both microbiology (aerobic, anaerobic, acid-fast, fungal) and pathology and the results are pending. He was seen by infectious disease during his last hospital admission and he had surgery on 05-29-2021. At this time, I do recommend an updated infectious disease evaluation ; to proceed with te recommendations. X-rays were negative for new acute osseous changes soft tissue emphysema or foreign body of this foot. He is currently taking Augmentin and doxycycline. Offloading: To maintain a strict nonweightbearing status to the ulcer to the foot. Advance wound options: He has a status change now with new diagnosis of osteomyelitis. I recommend hyperbaric oxygen therapy if he is medically cleared to undergo such treatment. He reports he is available to come in 5 days a week for couple hours each day and he has anticipated reliable transportation. He will go for history and physical exam with Zulma Long clinical nurse practitioner next week. It is noted he has COPD sleep apnea and obesity. His last EKG and chest x-ray on file were performed June 2021 and he was also seen by systems accountant and July 2021. He will proceed with an updated Echo, A1C will be requested from his PCP offsite, and he will also go for ENT evaluation to clear his earways prior to being cleared for HBO. He may also require a cardiac clearance. Patient relates he had follow-up appointment with his primary care provider, Priyanka Brown, and relates that she did not change any medication and stated he was doing okay. PCP is leaving the diabetes management up to his de icer finisher, Dr. Mykel Barraza. He was able to follow-up and recommendations were updated. To follow up with pain management. Edema management: Medical management per primary care. To reduce salt in diet. Total contact cast will also aide in edema reduction if this considered upon continued foot stability and resolution of infection status. Arterial studies were reviewed. Showing likely adequate perfusion for healing. Right LAI is 0.99 and left 1.18. Right toe brachial index 0.76 and left 0.71. Referral to Dr. Campos for potential venous and arterial intervention was provided today. He went for consultationon 04-11-21. Will recheck duplex to make sure normal posterior tibial flow into the area of the wound. normal prior LAI noted. Host factors: His multiple comorbidities are noted including diabetes and smoking history. Also recommend improvement in nutritional status which involves taking in adequate protein and also focusing on eating 5-10 whole foods daily. Gait abnormality/walking difficulty: I recommend PT and OT intervention with his home health agency. A referral was provided previously. He is at risk for falling. He is fragile and has demonstrated progressive deterioration. All questions answered. He understands below-knee amputation is an option as well if he cannot keep pressure off the site, if pain becomes intolerable, and if he no longer is able to proceed with a comprehensive wound healing plan. He defers at this time. Patient to follow up in 1 week or call sooner if status worsening or if questions. I answered all of his questions. This note was generated with [employer] dictation software. It may contain incorrect words, spelling, and punctuation that were not noted in checking the note before signing. 15 minutes was spent on this encounter. This included face to face and non face to face care including preparing for the visit, reviewing the history, performing the exam, counseling and providing education to the patient, family, or caregiver, ordering medications/test/ procedures if indicated as documented, communicating with other healthcare providers, documenting information in the medical record, interpreting / sharing this information when indicated as documented, and care coordination.
--- NOTE | 2021-10-24 10:01 | PCM.CONHBO ---
Assessment & Plan Assessment/Plan (1) Foot osteomyelitis: QUALIFIERS: Osteomyelitis type: other acute Laterality: left Qualified Code(s): M86.172 - Other acute osteomyelitis, left ankle and foot PLAN: Applying for HBO treatments 2.0 ALE with no breaks for 30 treatments Patient is to get an echocardiogram all other labs EKG chest x-ray are done (2) Chronic ulcer of left foot with necrosis of bone: (3) Type 2 diabetes mellitus with diabetic polyneuropathy: QUALIFIERS: Diabetes mellitus correction insulin use: with ad terminal makeup operator use Qualified Code(s): E11.42 - Type 2 diabetes mellitus with diabetic polyneuropathy; Z79.4 - terminal clerk (current) use of insulin History of Present Illness Date of Service: 10/24/21 Chief Complaint: left heel and arch ulcers History of Wound: Patient presents for chronic non healing wound to left plantar foot (heel and arch). A limb and life-threatening infection which required emergent surgical intervention on 05-29-2021. He has been demonstrating improvement with total contact cast applications however had recent anteriorization and now has exposed bone to the heel now with additional osteomyelitis. A culture demonstrated multi organism growth. He is scheduled to see Dr. Raphael, infectious disease specialist this afternoon. He denies fever, chill, nausea, vomiting, pain, odor, redness. He is keeping weight off of his foot he reports. He denies redness. He has been taking doxycycline and Augmentin as prescribed. Progress of Wound: Patient is here for HBO consult for his left heel Acevedo 3. We discussed how HBO works and went over labs and EKG that were done. Shows a first-degree block on his EKG we will also get a echocardiogram on him to make sure. Patient states had a sister history of an HI back in 2006 with a stent. His blood sugars he states run between 70 and 120. Previous hemoglobin A1c was in May at 11.6. I suggested he eat before he comes for his HBO treatments because of his blood sugars too low that can cause problems once he is in the chamber. Patient was agreeable Will apply for HBO treatments of 2.0 ALE with no breaks for approximately 2 hours long for 30 days to start. If we see an improvement we will reevaluate and ask for longer time all depending on how his insurance approves. [facility] Medical History (Reviewed 10/24/21 @ 10:04 by Zulma Long LEAD CYTOGENETIC TECHNOLOGIST, LEAD CYTOGENETIC TECHNOLOGIST-C) Cancer Chest pain CKD (chronic kidney disease), stage III COPD (chronic obstructive pulmonary disease) Current use of insulin Difficulty swallowing DVT (deep venous thrombosis) Former tobacco use History of kidney cancer Myocardial infarct Obesity CAMACHO (obstructive sleep apnea) Polycythemia secondary to hypoxia Status post debridement of ulcer of heel Type 2 diabetes mellitus with diabetic polyneuropathy Wears hearing aid in both ears Home Medications ascorbic acid (vitamin C) 1,000 mg PO TID 07/11/20 [History Last Taken 05/27/21] aspirin 81 mg PO DAILY@0800 07/11/20 [History Last Taken 05/27/21] atorvastatin 80 mg PO QHS 07/11/20 [History Last Taken 05/27/21] carvedilol 12.5 mg PO DAILY 08/17/20 [History Last Taken 06/01/21 08:10] cholecalciferol (vitamin D3) 125 mcg PO DAILY 05/28/21 [History Last Taken 05/27/21] melatonin 3 mg PO QHS PRN PRN #0 tab 06/01/21 [Rx Last Taken Unknown] acetaminophen 1,000 mg PO Q6H PRN PRN #0 tab 06/19/21 [Rx Last Taken Unknown] Lactobacillus acidophilus 1 tab PO BID 06/29/21 [History Last Taken Unknown] Lantus Solostar U-100 Insulin 120 units SUBCUT BID 06/29/21 [History Last Taken Unknown] gabapentin 800 mg PO TID 06/29/21 [History Last Taken Unknown] insulin lispro 80 unit SUBCUT TIDCM 06/29/21 [History Last Taken Unknown] ketoconazole 1 applic TOPICAL BID 06/29/21 [History Last Taken Unknown] ketoconazole 200 mg PO DAILY 06/29/21 [History Last Taken Unknown] nutritional supplements 1 ea PO BID 06/29/21 [History Last Taken Unknown] zinc sulfate 220 mg PO DAILY 06/29/21 [History Last Taken Unknown] acidophilus-pectin, citrus 1 tab PO BID #60 tab 06/30/21 [Rx Last Taken Unknown] ujryg-jbjb-SdDAT-deqiok-rp-jos [[place] (with collagen)] 1 packet PO BIDCM #60 ea 06/30/21 [Rx Last Taken Unknown] doxycycline monohydrate 100 mg PO BID #28 cap 06/30/21 [Rx Last Taken Unknown] oxycodone 5 mg PO Q6H PRN PRN 3 Days #12 tab 06/30/21 [Rx Last Taken Unknown] amoxicillin-pot clavulanate 1 tab PO BID #20 tab 10/10/21 [Rx Last Taken Unknown] doxycycline hyclate 100 mg PO BID #20 cap 10/10/21 [Rx Last Taken Unknown] Allergy/AdvReac Type Severity Reaction Status Date / Time codeine AdvReac Nausea Verified 07/31/21 09:25 promethazine [From Phenergan] AdvReac Nausea Verified 07/31/21 09:25 Family History Father CVA (cerebral vascular accident) Myocardial infarction Mother Dementia Surgical History History of appendectomy History of coronary artery stent placement History of surgery on arm Hx of partial nephrectomy Previous back surgery S/P appendectomy Social History household members: none Smoking Status: Light Smoker (<10/day) Tobacco: How many years used: 50 how long ago did patient quit smoking: Smoked ~1/2 ppd x 50 years until quit. alcohol intake: never substance use type: does not use ROS Constitutional Constitutional: Reports systems reviewed and no addt'l complaints, except as documented Eyes Eyes: Reports systems reviewed and no addt'l complaints, except as documented ENT HEENT: Reports systems reviewed and no addt'l complaints, except as documented Cardiovascular Cardiovascular: Reports systems reviewed and no addt'l complaints, except as documented Respiratory/Chest Respiratory/Chest: Reports systems reviewed and no addt'l complaints, except as documented Gastrointestinal Gastrointestinal: Reports systems reviewed and no addt'l complaints, except as documented Genitourinary Genitourinary: Reports systems reviewed and no addt'l complaints, except as documented Musculoskeletal Musculoskeletal: Reports systems reviewed and no addt'l complaints, except as documented Integumentary Integumentary: Reports non-healing lesions and wounds Neurologic Neurologic: Reports systems reviewed and no addt'l complaints, except as documented Psychiatric Psychiatric: Reports systems reviewed and no addt'l complaints, except as documented Endocrine Endocrinology: Reports systems reviewed and no addt'l complaints, except as documented Hematologic/Lymphatic Hematologic/Lymphatic: Reports systems reviewed and no addt'l complaints, except as documented Allergic/Immunologic Allergic/Immunologic: Reports systems reviewed and no addt'l complaints, except as documented Physical Exam Physical Exam Const oriented x3 General Appearance: cooperative Exam Limitations: no limitations Resp normal respiratory effort Effort and Inspection: able to speak in complete sentences Auscultation: clear to auscultation bilaterally Cardio regular rate and regular rhythm Palpation: normal PMI Rate: regular rate Rhythm: regular rhythm GI Auscultation: normoactive bowel sounds Palpation: soft and no hepatosplenomegaly Back/Spine Cervical Spine: cervical ROM normal Thoracic Spine / Upper Back: normal to inspection Lumbar Spine / Lower Back: normal to inspection Extremity Left Lower Extremity: lower leg Skin Skin Narrative: Wounds left heel osteomyelitis Wounds: wounds noted Neuro oriented x3 Psych Appearance: grossly normal Speech: normal speech Thought Content: normal thought content Judgement: judgement good Nursing Assessment and Debridement Post-Debridement Measurements and Additional Note: Post-Debridement Measurements/Treatment - Nurse 1 - General Ulcer Assessment Start: 10/17/21 10:55 Freq: Status: Active Protocol: WC.LOWEXT Activity Type Activity Date Activity User E-Sign Co-Sign Detail Recorded Client Recorded Date Recorded By Document 10/24/21 08:12 [id number] 10/24/21 08:21 10/24/21 08:12 - Today's Visit Information Type of service Follow-up Visit (Physician/RAILROAD INSPECTOR ) Arrival Mode Wheelchair Transfer Assistance Manual Patient Identification Verified (Name & Yes ) Patient Requires Transmission-Based No Precautions Height and Weight Body Mass Index (BMI) 33.7 BMI Classification Obese Vital Signs Temperature (97.8 F-99.1 F) 97.2 F L Temperature Source Temporal Pulse Rate (60-100 beats/min) 69 Pulse Location Monitor Respiratory Rate (12-18 breaths/min) 18 Respiratory rate source Observation Blood Pressure (90/60-120/80 mm Hg) 138/76 H Blood Pressure Mean (mm Hg) 96 Source Monitor Position Semi-Fowlers Blood Pressure Location Left Arm History Since Last Visit- (Skip if this is Patient's initial visit) Have you changed medications since your No last visit? Any new allergies or adverse reactions No Had a fall/change in ADL's that may No increase risk of falls Signs or symptoms of abuse and/or No neglect since last visit Have you been in the hospital since your No last visit? Has dressing in place as prescribed Yes Has compression in place as prescribed No Has offloadiing in place as prescribed Yes Experienced any changes in pain level or No management Left Footwear Surgical Shoe with pressure relief insole Right Footwear Regular Shoe Pain Scale: 0-10 Numeric Is Patient Pain Free? No LLE -Description Aching -Intensity 9 -Duration (hours) Acute -Pain Behavior Withdrawal from Touch -Pain Aggravating Factors ADL's -Alleviating Factors/Interventions Medication -Effectiveness of Alleviating Factor/ Minimally Intervention effective WC - Nurse 1 - General Ulcer Measurement Start: 10/17/21 10:55 Freq: Status: Active Protocol: Activity Type Activity Date Activity User E-Sign Co-Sign Detail Recorded Client Recorded Date Recorded By Document 10/24/21 08:12 ALEJANDRO [id number] 10/24/21 08:21 RB 10/24/21 08:12 Wound Center Nurse 1 4-left plantar arch -Combined with other wound No -Current Size (cm) - Length 1.6 -Current Size (cm) - Width 1.4 -Current Size (cm) - Depth 0.1 -Total Square Cm 2.24 -Photo Taken Yes -Tunneling No -Undermining/Tunneling No -Circular Undermining No -Exudate Amt Large -Exudate Type Serosanguineous -Wound Margin Distinct, Outline Attached -Granulation Amt Medium (34-66%) -Granulation Quality [place] -Slough/Fibrin Yes -Necrosis Amt Medium (34-66%) -Necrotic Tissue Type Adherent Slough -Structure Exposed N/A -Texture (Margaret-wound Skin Appearance) Callus -Moisture (Margaret-wound Skin Appearance) Maceration -Color (Margaret-wound Skin Appearance) Assessed -Temperature (Margaret-wound Skin No Abnormality Appearance) (Pt Warm) -Tenderness on Palpation (Margaret-wound No Skin Appearance) -Ulcer Cleansing Wound Cleanser -Foul Odor after Cleansing No -Anesthetic Used 4% Lidocaine Solution,5% Lidocaine Gel #1 left heel cluster -Combined with other wound No -Current Size (cm) - Length 3 -Current Size (cm) - Width 3.4 -Current Size (cm) - Depth 1.9 -Total Square Cm 10.2 -Photo Taken Yes -Tunneling No -Undermining/Tunneling Yes -Undermining/Tunneling Starts (O'clock 9 ) -Undermining/Tunneling Ends (O'clock) 12 -Maximum Distance (cm) 1.3 -Exudate Amt Medium -Exudate Type Serosanguineous -Wound Margin Distinct, Outline Attached -Granulation Amt Medium (34-66%) -Granulation Quality [place] -Slough/Fibrin Yes -Necrosis Amt Medium (34-66%) -Necrotic Tissue Type Adherent Slough -Structure Exposed N/A -Texture (Margaret-wound Skin Appearance) Assessed,Callus -Moisture (Margaret-wound Skin Appearance) Maceration -Color (Margaret-wound Skin Appearance) Assessed -Temperature (Margaret-wound Skin No Abnormality Appearance) (Pt Warm) -Tenderness on Palpation (Margaret-wound No Skin Appearance) -Ulcer Cleansing Wound Cleanser -Foul Odor after Cleansing No -Anesthetic Used 4% Lidocaine Solution,5% Lidocaine Gel WC - Nurse 2 - General Ulcer CM Notes Start: 10/17/21 10:55 Freq: Status: Active Protocol: Activity Type Activity Date Activity User E-Sign Co-Sign Detail Recorded Client Recorded Date Recorded By Document 10/24/21 08:37 [id number] 10/24/21 08:38 Document 10/24/21 09:10 MW [id number] 10/24/21 09:10 MW 10/24/21 10/24/21 08:37 09:10 Wound Center Nurse 2 4-left plantar arch -Time 08:37 -Correct Patient Yes -Correct Side, Site, Position Yes -Correct Procedure Yes -Procedure Performed Yes -Type of Procedure Debridement -Clinical Debridement Subcutaneous -Tissue Removed Subcutaneous -Post Debridement (cm) - Length 1.6 -Post Debridement (cm) - Width 1.5 -Post Debridement (cm) - Depth 0.1 -Total Square (Post) (cm) 2.40 -Area of Debridement (cm) - Length 1.6 -Area of Debridement (cm) - Width 1.5 -Total Square (Area) (cm) 2.40 -Tunneling No -Undermining/Tunneling No -Circular Undermining No -Wound/Ulcer Outcome Not Healed -Ulcer Cleansing Rinsed/ Irrigated with Saline -Foul Odor after Cleansing No -Bioengineered Tissue No -Bleeding Controlled with Pressure -Treatment Response Procedure Tolerated Well -Offloading Yes -Type of Offloading Camwalker -Debridement - Subq, 1st 20sq cm No #1 left heel cluster -Time 08:38 -Correct Patient Yes -Correct Side, Site, Position Yes -Correct Procedure Yes -Procedure Performed Yes -Type of Procedure Debridement -Clinical Debridement Subcutaneous -Tissue Removed Subcutaneous -Post Debridement (cm) - Length 3.0 -Post Debridement (cm) - Width 3.5 -Post Debridement (cm) - Depth 2.0 -Total Square (Post) (cm) 10.50 -Area of Debridement (cm) - Length 3.0 -Area of Debridement (cm) - Width 3.5 -Total Square (Area) (cm) 10.50 -Tunneling No -Undermining/Tunneling No -Circular Undermining No -Wound/Ulcer Outcome Not Healed -Ulcer Cleansing Rinsed/ Irrigated with Saline -Foul Odor after Cleansing No -Bioengineered Tissue No -Bleeding Controlled with Pressure -Treatment Response Procedure Tolerated Well -Offloading Yes -Type of Offloading Knee Walker -Debridement - Subq, 1st 20sq cm Yes Pain Scale: 0-10 Numeric Is Patient Pain Free? Yes Yes - Nurse 3 - General Ulcer D/C NN Start: 10/17/21 10:55 Freq: Status: Active Protocol: Activity Type Activity Date Activity User E-Sign Co-Sign Detail Recorded Client Recorded Date Recorded By Document 10/24/21 08:47 DL [id number] 10/24/21 08:50 DL 10/24/21 08:47 Wound Care Nurse 3 4-left plantar arch -Ulcer Cleansing Soap and Water -Foul Odor after Cleansing No -Other Dressing Betadine/ superabsorber -Primary Dressing Covered/Secured with Dry Gauze & Roll Gauze, Secured with Tape #1 left heel cluster -Ulcer Cleansing Soap and Water -Foul Odor after Cleansing No -Other Dressing Bertadine/ Superabsorber -Primary Dressing Covered/Secured with Dry Gauze & Roll Gauze, Secured with Tape Left -Multi-Layered Wrap Application Multi-Layer Comp - Left ($) Treatment Response Procedure Tolerated Well Pain Scale: 0-10 Numeric Is Patient Pain Free? Yes - Visit Discharge Discharge Condition Stable Ambulatory Status Wheelchair Transportation Private [facility] Facility Type Home Health Notes: HH to resume [facility] at home Orders Sent Yes Lab / Micro Data Attestation: I reviewed the patient's lab results. EKG Initial EKG: Attestation: I personally reviewed and interpreted this EKG as follows: EKG Rhythm Intrepretation: 1st Degree AVB Pacemaker function: other (We will schedule for an echocardiogram)
[2021-10-31 13:50] VITALS: BP 126/69; PULSE 66; TEMP 35.7; BMI 33.7
--- NOTE | 2021-10-31 15:27 | PN.PCM_ITS ---
History of Present Illness Date of Service: 10/31/21 Chief Complaint: left heel and arch ulcers History of Wound: Patient presents for chronic non healing wound to left plantar foot (heel and arch). A limb and life-threatening infection which required emergent surgical intervention on 05-29-2021. He has been demonstrating improvement with total contact cast applications however had recent deteriorization and now has exposed bone to the heel now with additional osteomyelitis. A culture demonstrated multi organism growth. 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 Raphael. He denies fever, chill, nausea, vomiting, pain, odor, redness. He is keeping weight off of his f oot he reports. He denies redness. He has been taking doxycycline and Augmentin as prescribed. He is also following up with pain management. He is in the process of getting cleared for hyperbaric oxygen therapy treatment for osteomyelitis and Acevedo grade 3. He got his earwax cleared last week as well with an ENT specialist. It is noted he is having continued significant pain now that he has more bone exposed. He is already noted to be under the care of a automotive paint technician and is taking Percocet, Tylenol, and gabapentin. He ultimately wants to proceed forward with hyperbaric oxygen therapy and antibiotics today however admits he is considering a below the knee amputation if he does not start seeing improvement and reduction in pain in the near future. Progress of Wound: Worsening status with more exposed bone, overall stable Objective Data Objective Data Vital Signs: Vital Signs Temp Pulse Resp BP 96.2 F L 66 18 126/69 H 10/31/21 13:50 10/31/21 13:50 10/24/21 08:12 10/31/21 13:50 Body Mass Index (BMI) 33.7 Lab / Micro Data Micro: Microbiology 10/17/21 11:24 Bone - Other Gram Stain - Final 10/17/21 11:24 Bone - Other Wound Culture - Final Enterobacter cloacae complex Meth. resistant Staph. aureus Corynebacterium striatum 10/17/21 11:24 Bone - Other Anaerobic Culture - Final No anaerobic bacteria isolated. Physical Exam Narrative Const alert and no apparent distress General Appearance: cooperative and comfortable Extremity There is diffuse left foot/ankle and leg swelling. Left foot s/p debridement to arch and heel, tissues are healthy and viable, granular. no longer visualized fascia and muscle layer to the arch. positive probe to bone is now larger area to the heel. There is no streaking or odor, compartments remain soft to palpate, there is no fluctuance or bogginess on palpation, no drainage, no visible abscess, no cellulitis, no blistering present. Hematogenous / serosanguineous drainage only upon debridement. Periwound moisture and maceration is has resolved. General Extremity: Negative for clubbing or cyanosis to digits. Vasc normal capillary refill, no acute ischemic skin changes noted, normal temperature bilateral. Const oriented x3 General Appearance: cooperative Extremity Left Lower Extremity: lower leg Skin Skin Narrative: Wounds left heel osteomyelitis Wounds: wounds noted Wound Narrative: Neuro Neuro Narrative: Debridement Note Debridement Note Wound debrided: left heel, left arch Wound Grade/Stage: 3,3 Type of Debridement: Excisional debridement Anesthesia Used: 4% Lidocaine Solution Depth: in the subcutaneous layer and - (misonic ultrasound debridement) Percentage of wound debrided: 100 Instrument Used: #15 blade Tissue Removed: fibrous, devitalized subcutaneous, biofilm, slough Severity: Fat Layer Exposed Amount of bleeding with debridement: Mild Bleeding Controlled with: Pressure Patient tolerated procedure: Patient tolerated procedure well Post-Debridement Measurements and Additional Note: Post-Debridement Measurements/Treatment - Nurse 1 - General Ulcer Assessment Start: 10/17/21 10:55 Freq: Status: Active Protocol: EVELYN Activity Type Activity Date Activity User E-sign Co-sign Detail Recorded Client Recorded Date Recorded By Document 10/17/21 11:01 DL [id number] 10/17/21 11:10 DL Document 10/24/21 08:12 RB [id number] 10/24/21 08:21 RB Document 10/31/21 13:50 AK [id number] 10/31/21 13:58 AK 10/17/21 10/24/21 10/31/21 11:01 08:12 13:50 - Today's Visit Information Type of service Follow-up Visit Follow-up Visit Follow-up Visit (Physician/CENTRAL OFFICE SUPERVISOR (Physician/CENTRAL OFFICE SUPERVISOR (Physician/CENTRAL OFFICE SUPERVISOR ) ) ) Arrival Mode Wheelchair Wheelchair Wheelchair Transfer Assistance Manual Manual Transfer Assist (Other) x2 Patient Identification Verified (Name & Yes Yes Yes ) Patient Requires Transmission-Based No No No Precautions Safety Precautions NA Height and Weight Body Mass Index (BMI) 33.7 33.7 33.7 BMI Classification Obese Obese Obese Vital Signs Temperature (97.8 F-99.1 F) 98.3 F 97.2 F L 96.2 F L Temperature Source Temporal Temporal Temporal Pulse Rate (60-100) 64 69 66 Pulse Location Monitor Monitor Monitor Respiratory Rate (12-18) 20 H 18 Respiratory rate source Observation Observation Blood Pressure (90/60-120/80) 131/58 H 138/76 H 126/69 H Blood Pressure Mean (mm Hg) 82 96 88 Source Monitor Monitor Monitor Position Semi-Fowlers Blood Pressure Location Left Arm History Since Last Visit- (Skip if this is Patient's initial visit) Have you changed medications since your No No No last visit? Any new allergies or adverse reactions No No No Had a fall/change in ADL's that may No No No increase risk of falls Signs or symptoms of abuse and/or No No No neglect since last visit Have you been in the hospital since your No No No last visit? Has dressing in place as prescribed Yes Yes Yes Has compression in place as prescribed N/A No Yes Has offloadiing in place as prescribed Yes Yes N/A Experienced any changes in pain level or No No No management Left Footwear Surgical Shoe Regular Shoe with pressure relief insole Right Footwear Regular Shoe Removable Cast Walker/Walking Boot Pain Scale: 0-10 Numeric Is Patient Pain Free? Yes No No LLE -Description Aching Sharp -Intensity 9 -Duration (hours) Acute -Pain Behavior Withdrawal from Guarding, Touch Withdrawal from Touch,Facial Grimacing -Pain Aggravating Factors ADL's Surgery -Alleviating Factors/Interventions Medication Emotional Support -Effectiveness of Alleviating Factor/ Minimally Not effective Intervention effective -Comments Pt is experiencing pain 7-10. He states that he rather have an amputation than to continue to live with the pain. I relayed info to Dr. Chapman. JANESSA - Nurse 1 - General Ulcer Measurement Start: 10/17/21 10:55 Freq: Status: Active Protocol: Activity Type Activity Date Activity User E-sign Co-sign Detail Recorded Client Recorded Date Recorded By Document 10/17/21 11:01 DL [id number] 10/17/21 11:10 DL Document 10/24/21 08:12 RB [id number] 10/24/21 08:21 RB Document 10/31/21 13:50 AK [id number] 10/31/21 13:58 AK 10/17/21 10/24/21 10/31/21 11:01 08:12 13:50 Wound Center Nurse 1 4-left plantar arch -Combined with other wound No No -Current Size (cm) - Length 1.2 1.6 0.7 -Current Size (cm) - Width 1.8 1.4 1.1 -Current Size (cm) - Depth 0.1 0.1 -Total Square Cm 2.16 2.24 0.77 -Photo Taken No Yes Yes -Epithelialization None Present -Tunneling No No -Undermining/Tunneling No No -Circular Undermining No No -Change in Wound Grade/Stage No -Exudate Amt Small Large Large -Exudate Type Serosanguineous Serosanguineous Yellow/Green -Wound Margin Thickened Distinct, Distinct, Outline Outline Attached Attached -Granulation Amt Large (67-100%) Medium (34-66%) None Present (0 %) -Granulation Quality Purvis,Red Purvis N/A -Slough/Fibrin Yes -Necrosis Amt Small (1-33%) Medium (34-66%) None Present (0 %) -Necrotic Tissue Type Adherent Slough Adherent Slough -Structure Exposed N/A Bone -Texture (Margaret-wound Skin Appearance) Callus, Callus Assessed Localized Edema ,Scarring -Moisture (Margaret-wound Skin Appearance) Maceration Maceration Assessed, Maceration -Color (Margaret-wound Skin Appearance) Hemosiderin Assessed Assessed, Staining Erythema,Palor -Temperature (Margaret-wound Skin No Abnormality No Abnormality No Abnormality Appearance) (Pt Warm) (Pt Warm) (Pt Warm) -Tenderness on Palpation (Margaret-wound No No No Skin Appearance) -Ulcer Cleansing Soap and Water Wound Cleanser Soap and Water -Foul Odor after Cleansing No No No -Anesthetic Used 5% Lidocaine 4% Lidocaine 4% Lidocaine Gel Solution,5% Solution,5% Lidocaine Gel Lidocaine Gel -Wound Comment(s) Tissue around wound is mascerated and white. There are areas of greying. Bone is exposed. #1 left heel cluster -Combined with other wound No -Current Size (cm) - Length 2.6 3 -Current Size (cm) - Width 1.8 3.4 -Current Size (cm) - Depth 1.7 1.9 -Total Square Cm 4.68 10.2 -Photo Taken Yes Yes -Tunneling No -Undermining/Tunneling Yes -Undermining/Tunneling Starts (O'clock 7 9 ) -Undermining/Tunneling Ends (O'clock) 11 12 -Maximum Distance (cm) 0.5 1.3 -Exudate Amt Medium Medium -Exudate Type Serosanguineous Serosanguineous -Wound Margin Thickened Distinct, Outline Attached -Granulation Amt Medium (34-66%) Medium (34-66%) -Granulation Quality Purvis Purvis -Slough/Fibrin Yes -Necrosis Amt Medium (34-66%) Medium (34-66%) -Necrotic Tissue Type Adherent Slough Adherent Slough -Structure Exposed Bone N/A -Texture (Margaret-wound Skin Appearance) Localized Edema Assessed,Callus ,Scarring -Moisture (Margaret-wound Skin Appearance) Maceration Maceration -Color (Margaret-wound Skin Appearance) Hemosiderin Assessed Staining -Temperature (Margaret-wound Skin No Abnormality No Abnormality Appearance) (Pt Warm) (Pt Warm) -Tenderness on Palpation (Margaret-wound No No Skin Appearance) -Ulcer Cleansing Soap and Water Wound Cleanser -Foul Odor after Cleansing No No -Anesthetic Used 5% Lidocaine 4% Lidocaine Gel Solution,5% Lidocaine Gel WC - Nurse 2 - General Ulcer CM Notes Start: 10/17/21 10:55 Freq: Status: Active Protocol: Activity Type Activity Date Activity User E-sign Co-sign Detail Recorded Client Recorded Date Recorded By Document 10/17/21 11:18 [id number] 10/17/21 11:30 Document 10/24/21 08:37 [id number] 10/24/21 08:38 Document 10/24/21 09:10 [id number] 10/24/21 09:10 Document 10/31/21 14:03 [id number] 10/31/21 14:12 10/17/21 10/24/21 10/24/21 11:18 08:37 09:10 Wound Center Nurse 2 4-left plantar arch -Time 11:19 08:37 -Correct Patient Yes Yes -Correct Side, Site, Position Yes Yes -Correct Procedure Yes Yes -Procedure Performed Yes Yes -Type of Procedure Debridement Debridement -Clinical Debridement Subcutaneous Subcutaneous -Tissue Removed Subcutaneous Subcutaneous -Post Debridement (cm) - Length 1.2 1.6 -Post Debridement (cm) - Width 1.9 1.5 -Post Debridement (cm) - Depth 0.1 0.1 -Total Square (Post) (cm) 2.28 2.40 -Area of Debridement (cm) - Length 1.2 1.6 -Area of Debridement (cm) - Width 1.9 1.5 -Total Square (Area) (cm) 2.28 2.40 -Tunneling No No -Undermining/Tunneling No No -Circular Undermining No No -Wound/Ulcer Outcome Not Healed Not Healed -Ulcer Cleansing Rinsed/ Rinsed/ Irrigated with Irrigated with Saline Saline -Foul Odor after Cleansing No No -Bioengineered Tissue No No -Bleeding Controlled with Pressure Pressure -Treatment Response Procedure Procedure Tolerated Well Tolerated Well -Offloading Yes Yes -Type of Offloading Camwalker Camwalker -Assistive Device(s) Wheelchair -Debridement - Subq, 1st 20sq cm Yes No #1 left heel cluster -Time 11:19 08:38 -Correct Patient Yes Yes -Correct Side, Site, Position Yes Yes -Correct Procedure Yes Yes -Procedure Performed Yes Yes -Type of Procedure Debridement Debridement -Clinical Debridement Bone Subcutaneous -Tissue Removed Biofilm Subcutaneous -Post Debridement (cm) - Length 2.6 3.0 -Post Debridement (cm) - Width 1.8 3.5 -Post Debridement (cm) - Depth 1.8 2.0 -Total Square (Post) (cm) 4.68 10.50 -Area of Debridement (cm) - Length 2.6 3.0 -Area of Debridement (cm) - Width 1.8 3.5 -Total Square (Area) (cm) 4.68 10.50 -Tunneling No No -Undermining/Tunneling No No -Circular Undermining No No -Wound/Ulcer Outcome Not Healed Not Healed -Ulcer Cleansing Rinsed/ Rinsed/ Irrigated with Irrigated with Saline Saline -Foul Odor after Cleansing No -Bioengineered Tissue No No -Bleeding Controlled with Pressure Pressure -Treatment Response Procedure Procedure Tolerated Well Tolerated Well -Offloading Yes Yes -Type of Offloading Camwalker Knee Walker -Debridement - Subq, 1st 20sq cm Yes -Debridement - Bone, 1st 20sq cm Yes Pain Scale: 0-10 Numeric Is Patient Pain Free? Yes Yes Yes 10/31/21 14:03 Wound Center Nurse 2 4-left plantar arch -Time 14:03 -Correct Patient Yes -Correct Side, Site, Position Yes -Correct Procedure Yes -Procedure Performed Yes -Type of Procedure Debridement -Clinical Debridement Subcutaneous -Tissue Removed Subcutaneous -Post Debridement (cm) - Length 1.0 -Post Debridement (cm) - Width 1.4 -Post Debridement (cm) - Depth 0.1 -Total Square (Post) (cm) 1.40 -Area of Debridement (cm) - Length 1.0 -Area of Debridement (cm) - Width 1.4 -Total Square (Area) (cm) 1.40 -Tunneling No -Undermining/Tunneling No -Circular Undermining No -Wound/Ulcer Outcome Not Healed -Ulcer Cleansing Rinsed/ Irrigated with Saline -Foul Odor after Cleansing No -Bioengineered Tissue No -Bleeding Controlled with Pressure -Treatment Response Procedure Tolerated Well -Offloading Yes -Type of Offloading Camwalker -Assistive Device(s) -Debridement - Subq, 1st 20sq cm No #1 left heel cluster -Time 14:04 -Correct Patient Yes -Correct Side, Site, Position Yes -Correct Procedure Yes -Procedure Performed Yes -Type of Procedure Debridement -Clinical Debridement Subcutaneous -Tissue Removed Subcutaneous -Post Debridement (cm) - Length 3 -Post Debridement (cm) - Width 3 -Post Debridement (cm) - Depth 1.3 -Total Square (Post) (cm) 9 -Area of Debridement (cm) - Length 3 -Area of Debridement (cm) - Width 3 -Total Square (Area) (cm) 9 -Tunneling No -Undermining/Tunneling No -Circular Undermining No -Wound/Ulcer Outcome Not Healed -Ulcer Cleansing Rinsed/ Irrigated with Saline -Foul Odor after Cleansing -Bioengineered Tissue No -Bleeding Controlled with Pressure -Treatment Response Procedure Tolerated Well -Offloading Yes -Type of Offloading Camwalker -Debridement - Subq, 1st 20sq cm Yes -Debridement - Bone, 1st 20sq cm Pain Scale: 0-10 Numeric Is Patient Pain Free? Yes WC - Nurse 3 - General Ulcer D/C NN Start: 10/17/21 10:55 Freq: Status: Active Protocol: Activity Type Activity Date Activity User E-sign Co-sign Detail Recorded Client Recorded Date Recorded By Document 10/17/21 11:59 RB [id number] 10/17/21 12:00 RB Document 10/24/21 08:47 DL [id number] 10/24/21 08:50 DL Document 10/31/21 14:19 [facility] [id number] 10/31/21 14:21 [facility] 10/17/21 10/24/21 10/31/21 11:59 08:47 14:19 Wound Care Nurse 3 4-left plantar arch -Ulcer Cleansing Soap and Water Rinsed/ Irrigated with Saline -Foul Odor after Cleansing No No -Other Dressing saline Betadine/ betadine gauze, moistened gauze superabsorber optilock sample, tcc undercast per dl production reproduction manager -Primary Dressing Covered/Secured with Dry Gauze,Dry Dry Gauze & Gauze & Roll Roll Gauze, Gauze,Secured Secured with with Tape Tape #1 left heel cluster -Ulcer Cleansing Rinsed/ Soap and Water Rinsed/ Irrigated with Irrigated with Saline Saline -Foul Odor after Cleansing No No -Other Dressing saline Bertadine/ betadine gauze, moistened gauze Superabsorber optilock sample, tcc undercast per dl production reproduction manager -Primary Dressing Covered/Secured with Dry Gauze,Dry Dry Gauze & Gauze & Roll Roll Gauze, Gauze,Secured Secured with with Tape Tape Left -Multi-Layered Wrap Application Multi-Layer Comp - Left ($) -Other aayush tcc undercast per dl production reproduction manager Treatment Response Procedure Procedure Procedure Tolerated Well Tolerated Well Tolerated Well Pain Scale: 0-10 Numeric Is Patient Pain Free? Yes Yes Yes WC - Visit Discharge Discharge Condition Stable Stable Stable Ambulatory Status Wheelchair Wheelchair Wheelchair Transportation Private Auto Private Auto Private Auto Medication Reconcilliation completed & No provided to patient/care provider Clinical Summary of Care Provided Yes Facility Type Home Health Notes: HH to resume [facility] at home Orders Sent Yes Assessment/Plan Assessment/Plan (1) Non-pressure chronic ulcer of left heel and midfoot with fat layer exposed: CODE(S): L97.422 - Non-pressure chronic ulcer of left heel and midfoot with fat layer exposed (2) Localized edema: CODE(S): R60.0 - Localized edema (3) Diabetes mellitus: CODE(S): E11.9 - Type 2 diabetes mellitus without complications (4) Type 2 diabetes mellitus with diabetic polyneuropathy: CODE(S): E11.42 - Type 2 diabetes mellitus with diabetic polyneuropathy QUALIFIERS: Diabetes mellitus jail insulin use: with long t erm use Qualified Code(s): E11.42 - Type 2 diabetes mellitus with diabetic polyneuropathy; Z79.4 - ferry terminal agent (current) use of insulin (5) Diabetic foot ulcer: CODE(S): E11.621 - Type 2 diabetes mellitus with foot ulcer; L97.509 - Non-pressure chronic ulcer of other part of unspecified foot with unspecified severity QUALIFIERS: Diabetes mellitus type: type 2 Diabetic foot ulcer location: heel Laterality: left Non-pressure ulcer stage: with fat layer exposed Qualified Code(s): E11.621 - Type 2 diabetes mellitus with foot ulcer; L97.422 - Non-pressure chronic ulcer of left heel and midfoot with fat layer exposed (6) Tobacco abuse: CODE(S): Z72.0 - Tobacco use (7) Cellulitis of left lower limb: CODE(S): L03.116 - Cellulitis of left lower limb (8) Chronic ulcer of left foot with necrosis of bone: CODE(S): L97.524 - Non-pressure chronic ulcer of other part of left foot with necrosis of bone (9) Foot osteomyelitis: CODE(S): M86.9 - Osteomyelitis, unspecified QUALIFIERS: Laterality: left Osteomyelitis type: other acute Qualified Code(s): M86.172 - Other acute osteomyelitis, left ankle and foot (10) Difficulty in walking: CODE(S): R26.2 - Difficulty in walking, not elsewhere classified (11) Left foot pain: CODE(S): M79.672 - Pain in left foot PLAN: Plan Patient seen and examined. I reviewed and discussed his case. Debridement was performed as noted in the clinical nursing panel. Dressing recommendation: Applied today: Betadine wet-to-dry prior to cast application. This was also washed with soap and water. Patient wound is noted to have improved with healthier appearance and there is no malodor. However, there is now increased visualization bone to the heel I am concerned that he has some osteomyelitis deteriorization development. He has multi organism bacterial growth with prior culture noted. I recommend culturing a bone specimen today due to increased pain and bone exposure. A clean sterile rongeur was used to obtain a specimen for both microbiology (aerobic, anaerobic, acid-fast, fungal) and pathology and the results are pending. He was seen by infectious disease during his last hospital admission and he had surgery on 05-29-2021. Infectious disease on consultation. His bone biopsy did come back positive for osteomyelitis. Offloading: To maintain a strict nonweightbearing status to the ulcer to the foot. Verbal consent was obtained to apply a total contact cast. The indications benefits anticipated management and course were reviewed. This was applied according to standard protocol a well-padded in neutral rectus position. He tolerated this well. He was advised to keep this clean, dry, and intact. To use assistive walking device as well. Advance wound options: He has a status change now with new diagnosis of osteomyelitis. I recommend hyperbaric oxygen therapy if he is medically cleared to undergo such treatment. He reports he is available to come in 5 days a week for couple hours each day and he has anticipated reliable transportation. He is in the process of getting cleared for hyperbaric oxygen therapy and will start soon. He did have to have some additional cardiac tests performed to ensure safety. He did also see ENT as well. I recommend he proceed as tolerated and as planned to optimize his healing potential. Patient relates he had follow-up appointment with his primary care provider, Priyanka Brown, and relates that she did not change any medication and stated he was doing okay. PCP is leaving the diabetes management up to his doctor of audiology, Dr. Mykel Barraza. He was able to follow-up and recommendations were updated. An updated hemoglobin A1c order was provided because we are unable to obtain this in a timely manner from the primary care physician's office. To follow up with pain management. It is noted he is already on gabapentin, Percocet, and Tylenol. I do not recommend additional narcotic pain medication which she is requesting today. We discussed source of pain is likely from his infection and from pressure applied while walking on this gradual site now that his bone is exposed. Edema management: Medical management per primary care. To reduce salt in diet. Total contact cast will also aide in edema reduction if this considered upon continued foot stability and resolution of infection status. Arterial studies were reviewed. Showing likely adequate perfusion for healing. Right LAI is 0.99 and left 1.18. Right toe brachial index 0.76 and left 0.71. Referral to Dr. Campos for potential venous and arterial intervention was provided today. He went for consultationon 04-11-21. Will recheck duplex to make sure normal posterior tibial flow into the area of the wound. normal prior LAI noted. Host factors: His multiple comorbidities are noted including diabetes and smoking history. Also recommend improvement in nutritional status which involves taking in adequate protein and also focusing on eating 5-10 whole foods daily. Gait abnormality/walking difficulty: I recommend PT and OT intervention with his home health agency. A referral was provided previously. He is at risk for falling. He is fragile and has demonstrated progressive deterioration. All questions answered. He understands below-knee amputation is an option as well if he cannot keep pressure off the site, if pain becomes intolerable, and if he no longer is able to proceed with a comprehensive wound healing plan. He defers at this time. This was discussed at length today. The benefits and indications of a below-knee amputation were reviewed. He would like to consider a referral to a doctor in the same healthcare system he attends in the [facility]. Patient to follow up in 1 week or call sooner if status worsening or if questions. He will follow-up on Friday for total contact cast evaluation and removal. I answered all of his questions. This note was generated with [employer] dictation software. It may contain incorrect words, spelling, and punctuation that were not noted in checking the note before signing. The medical decision making level is moderate based on data including at least three of the following: review of prior external notes, review of a test, ordering a test, assessment requiring an independent historian. The problems addressed require a moderate decision making level which includes one or more chronic illnesses (w/ exacerbation, progression, or side effects), two or more stable chronic illnesses, one undiagnosed new problem w/ uncertain prognosis, one acute illness with systemic symptoms, or one acute complicated injury.
[2021-10-31 16:44] LABS: Hemoglobin A1c 8.6 % (3.8-5.6)
[2021-11-05 09:01] VITALS: BP 147/60; PULSE 68; BMI 33.7
--- NOTE | 2021-11-05 09:25 | WC ---
pt reports extreme pain when applying any pressure. Pt states he heard a pop when attempting to walk on Sat. His calf is red large and swollen with heat.
--- NOTE | 2021-11-05 11:03 | PN.PCM_ITS ---
History of Present Illness Date of Service: 11/05/21 Chief Complaint: left heel and arch ulcers History of Wound: Patient presents for chronic non healing wound to left plantar foot (heel and arch). A limb and life-threatening infection which required emergent surgical intervention on 05-29-2021. He has been demonstrating improvement with total contact cast applications however had recent deteriorization and now has exposed bone to the heel now with additional osteomyelitis. A culture demonstrated multi organism growth. 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 Raphael. He denies fever, chill, nausea, vomiting, pain, odor, redness. He is keeping weight off of his f oot he reports. He denies redness. He has been taking doxycycline and Augmentin as prescribed. He is also following up with pain management. He is in the process of getting cleared for hyperbaric oxygen therapy treatment for osteomyelitis and Acevedo grade 3. He got his earwax cleared last week as well with an ENT specialist. It is noted he is having continued significant pain now that he has more bone exposed. He is already noted to be under the care of a painter shipyard and is taking Percocet, Tylenol, and gabapentin. He ultimately wants to proceed forward with hyperbaric oxygen therapy and antibiotics today however admits he is considering a below the knee amputation if he does not start seeing improvement and reduction in pain in the near future. Progress of Wound: He presents today to have his TCC changed. Upon inspection of his foot and leg, his left heel ulcers are stable but his left leg has +4 pitting edema and is tight and shiny. He is having pain in his left calf with palpation and has a positive Stokes's sign. He also is complaining of body chills. He denies any fever, nausea, vomiting. He is on 3 antibiotics from ID due to his infection and now has osteomyelitis. Ordered a STAT ultrasound of left calf. Objective Data Objective Data Vital Signs: Vital Signs Temp Pulse Resp BP 96.2 F L 68 18 147/60 H 10/31/21 13:50 11/05/21 09:01 10/24/21 08:12 11/05/21 09:01 Body Mass Index (BMI) 33.7 Lab / Micro Data Micro: Microbiology 10/17/21 11:24 Bone - Other Gram Stain - Final 10/17/21 11:24 Bone - Other Wound Culture - Final Enterobacter cloacae complex Meth. resistant Staph. aureus Corynebacterium striatum 10/17/21 11:24 Bone - Other Anaerobic Culture - Final No anaerobic bacteria isolated. Charges/Coding Visit Charges Office Visits / Consults: [id number] OV L4 Est Physical Exam Const alert and oriented x3 HEENT normocephalic Resp normal respiratory effort and clear to auscultation bilaterally Effort and Inspection: able to speak in complete sentences Cardio regular rate and regular rhythm GI normal to inspection, nondistended, normoactive bowel sounds, non-tender and non-distended Extremity Extremity Narrative: Left lower leg has edema +4, the leg skin is shiny and tight. He has pain with palpation over the calf of his left leg and has a positive Stokes's sign. Pedal pulses palpable. Skin Wound Narrative: Left heel and foot ulcers are stable. There is an odor present. Neuro Speech: speech normal Psych Appearance: grossly normal Debridement Note Debridement Note No debridement was completed: No debridement was completed today Post-Debridement Measurements and Additional Note: Post-Debridement Measurements/Treatment - Nurse 1 - General Ulcer Assessment Start: 10/17/21 10:55 Freq: Status: Active Protocol: [email or web address] Activity Type Activity Date Activity User E-sign Co-sign Detail Recorded Client Recorded Date Recorded By Document 10/17/21 11:01 DL [id number] 10/17/21 11:10 DL Document 10/24/21 08:12 RB [id number] 10/24/21 08:21 RB Document 10/31/21 13:50 AK [id number] 10/31/21 13:58 AK Document 11/05/21 09:01 AK [id number] 11/05/21 09:26 AK 10/17/21 10/24/21 10/31/21 11:01 08:12 13:50 - Today's Visit Information Type of service Follow-up Visit Follow-up Visit Follow-up Visit (Physician/STRUCTURAL IRON ERECTOR (Physician/STRUCTURAL IRON ERECTOR (Physician/STRUCTURAL IRON ERECTOR ) ) ) Arrival Mode Wheelchair Wheelchair Wheelchair Transfer Assistance Manual Manual Transfer Assist (Other) x2 Patient Identification Verified (Name & Yes Yes Yes ) Patient Requires Transmission-Based No No No Precautions Safety Precautions NA Height and Weight Body Mass Index (BMI) 33.7 33.7 33.7 BMI Classification Obese Obese Obese Vital Signs Temperature (97.8 F-99.1 F) 98.3 F 97.2 F L 96.2 F L Temperature Source Temporal Temporal Temporal Pulse Rate (60-100) 64 69 66 Pulse Location Monitor Monitor Monitor Respiratory Rate (12-18) 20 H 18 Respiratory rate source Observation Observation Blood Pressure (90/60-120/80) 131/58 H 138/76 H 126/69 H Blood Pressure Mean (mm Hg) 82 96 88 Source Monitor Monitor Monitor Position Semi-Fowlers Blood Pressure Location Left Arm History Since Last Visit- (Skip if this is Patient's initial visit) Have you changed medications since your No No No last visit? Any new allergies or adverse reactions No No No Had a fall/change in ADL's that may No No No increase risk of falls Signs or symptoms of abuse and/or No No No neglect since last visit Have you been in the hospital since your No No No last visit? Has dressing in place as prescribed Yes Yes Yes Has compression in place as prescribed N/A No Yes Has offloadiing in place as prescribed Yes Yes N/A Experienced any changes in pain level or No No No management Left Footwear Surgical Shoe Regular Shoe with pressure relief insole Right Footwear Regular Shoe Removable Cast Walker/Walking Boot Pain Scale: 0-10 Numeric Is Patient Pain Free? Yes No No LLE -Description Aching Sharp -Intensity 9 -Duration (hours) Acute -Pain Behavior Withdrawal from Guarding, Touch Withdrawal from Touch,Facial Grimacing -Pain Aggravating Factors ADL's Surgery -Alleviating Factors/Interventions Medication Emotional Support -Effectiveness of Alleviating Factor/ Minimally Not effective Intervention effective -Comments Pt is experiencing pain 7-10. He states that he rather have an amputation than to continue to live with the pain. I relayed info to Dr. Chapman. 11/05/21 09:01 WC - Today's Visit Information Type of service Follow-up Visit (Physician/STRUCTURAL IRON ERECTOR ) Arrival Mode Wheelchair Transfer Assistance Transfer Assist (Other) Patient Identification Verified (Name & Yes ) Patient Requires Transmission-Based No Precautions Safety Precautions NA Height and Weight Body Mass Index (BMI) 33.7 BMI Classification Obese Vital Signs Temperature (97.8 F-99.1 F) Temperature Source Pulse Rate (60-100) 68 Pulse Location Monitor Respiratory Rate (12-18) Respiratory rate source Blood Pressure (90/60-120/80) 147/60 H Blood Pressure Mean (mm Hg) 89 Source Monitor Position Blood Pressure Location History Since Last Visit- (Skip if this is Patient's initial visit) Have you changed medications since your No last visit? Any new allergies or adverse reactions No Had a fall/change in ADL's that may No increase risk of falls Signs or symptoms of abuse and/or No neglect since last visit Have you been in the hospital since your No last visit? Has dressing in place as prescribed Yes Has compression in place as prescribed Yes Has offloadiing in place as prescribed Yes Experienced any changes in pain level or No management Left Footwear Removable Cast Walker/Walking Boot Right Footwear Regular Shoe Pain Scale: 0-10 Numeric Is Patient Pain Free? No LLE -Description -Intensity -Duration (hours) -Pain Behavior -Pain Aggravating Factors -Alleviating Factors/Interventions -Effectiveness of Alleviating Factor/ Intervention -Comments WC - Nurse 1 - General Ulcer Measurement Start: 10/17/21 10:55 Freq: Status: Active Protocol: Activity Type Activity Date Activity User E-sign Co-sign Detail Recorded Client Recorded Date Recorded By Document 10/17/21 11:01 DL [id number] 10/17/21 11:10 DL Document 10/24/21 08:12 RB [id number] 10/24/21 08:21 RB Document 10/31/21 13:50 AK [id number] 10/31/21 13:58 AK Document 11/05/21 09:01 AK [id number] 11/05/21 09:26 AK 10/17/21 10/24/21 10/31/21 11:01 08:12 13:50 Wound Center Nurse 1 4-left plantar arch -Combined with other wound No No -Current Size (cm) - Length 1.2 1.6 0.7 -Current Size (cm) - Width 1.8 1.4 1.1 -Current Size (cm) - Depth 0.1 0.1 -Total Square Cm 2.16 2.24 0.77 -Date of Last Picture (Recall this field) -Photo Taken No Yes Yes -Epithelialization None Present -Tunneling No No -Undermining/Tunneling No No -Circular Undermining No No -Change in Wound Grade/Stage No -Exudate Amt Small Large Large -Exudate Type Serosanguineous Serosanguineous Yellow/Green -Wound Margin Thickened Distinct, Distinct, Outline Outline Attached Attached -Granulation Amt Large (67-100%) Medium (34-66%) None Present (0 %) -Granulation Quality Sweet Water,Red Sweet Water N/A -Slough/Fibrin Yes -Necrosis Amt Small (1-33%) Medium (34-66%) None Present (0 %) -Necrotic Tissue Type Adherent Slough Adherent Slough -Structure Exposed N/A Bone -Texture (Margaret-wound Skin Appearance) Callus, Callus Assessed Localized Edema ,Scarring -Moisture (Margaret-wound Skin Appearance) Maceration Maceration Assessed, Maceration -Color (Margaret-wound Skin Appearance) Hemosiderin Assessed Assessed, Staining Erythema,Palor -Temperature (Margaret-wound Skin No Abnormality No Abnormality No Abnormality Appearance) (Pt Warm) (Pt Warm) (Pt Warm) -Tenderness on Palpation (Margaret-wound No No No Skin Appearance) -Ulcer Cleansing Soap and Water Wound Cleanser Soap and Water -Foul Odor after Cleansing No No No -Anesthetic Used 5% Lidocaine 4% Lidocaine 4% Lidocaine Gel Solution,5% Solution,5% Lidocaine Gel Lidocaine Gel -Wound Comment(s) Tissue around wound is mascerated and white. There are areas of greying. Bone is exposed. #1 left heel cluster -Combined with other wound No -Current Size (cm) - Length 2.6 3 -Current Size (cm) - Width 1.8 3.4 -Current Size (cm) - Depth 1.7 1.9 -Total Square Cm 4.68 10.2 -Date of Last Picture (Recall this field) -Photo Taken Yes Yes -Epithelialization -Tunneling No -Undermining/Tunneling Yes -Undermining/Tunneling Starts (O'clock 7 9 ) -Undermining/Tunneling Ends (O'clock) 11 12 -Maximum Distance (cm) 0.5 1.3 -Circular Undermining -Change in Wound Grade/Stage -Exudate Amt Medium Medium -Exudate Type Serosanguineous Serosanguineous -Wound Margin Thickened Distinct, Outline Attached -Granulation Amt Medium (34-66%) Medium (34-66%) -Granulation Quality Sweet Water Sweet Water -Slough/Fibrin Yes -Necrosis Amt Medium (34-66%) Medium (34-66%) -Necrotic Tissue Type Adherent Slough Adherent Slough -Structure Exposed Bone N/A -Texture (Margaret-wound Skin Appearance) Localized Edema Assessed,Callus ,Scarring -Moisture (Margaret-wound Skin Appearance) Maceration Maceration -Color (Margaret-wound Skin Appearance) Hemosiderin Assessed Staining -Temperature (Margaret-wound Skin No Abnormality No Abnormality Appearance) (Pt Warm) (Pt Warm) -Tenderness on Palpation (Margaret-wound No No Skin Appearance) -Ulcer Cleansing Soap and Water Wound Cleanser -Foul Odor after Cleansing No No -Anesthetic Used 5% Lidocaine 4% Lidocaine Gel Solution,5% Lidocaine Gel Lower Limb Edema Present Left Calf (cm) Left Ankle (cm) 11/05/21 09:01 Wound Center Nurse 1 4-left plantar arch -Combined with other wound No -Current Size (cm) - Length 4.5 -Current Size (cm) - Width 4.3 -Current Size (cm) - Depth 0.2 -Total Square Cm 19.35 -Date of Last Picture (Recall this 11/05/21 field) -Photo Taken Yes -Epithelialization None Present -Tunneling No -Undermining/Tunneling No -Circular Undermining No -Change in Wound Grade/Stage -Exudate Amt Large -Exudate Type Serosanguineous -Wound Margin Distinct, Outline Attached -Granulation Amt Small (1-33%) -Granulation Quality Sweet Water -Slough/Fibrin No -Necrosis Amt Large (67-100%) -Necrotic Tissue Type Adherent Slough -Structure Exposed -Texture (Margaret-wound Skin Appearance) Assessed, Excoriation -Moisture (Margaret-wound Skin Appearance) Assessed, Weeping -Color (Margaret-wound Skin Appearance) Assessed,Palor -Temperature (Margaret-wound Skin No Abnormality Appearance) (Pt Warm) -Tenderness on Palpation (Margaret-wound No Skin Appearance) -Ulcer Cleansing Soap and Water -Foul Odor after Cleansing No -Anesthetic Used 4% Lidocaine Solution,5% Lidocaine Gel -Wound Comment(s) #1 left heel cluster -Combined with other wound No -Current Size (cm) - Length 3.5 -Current Size (cm) - Width 3.2 -Current Size (cm) - Depth 1.5 -Total Square Cm 11.20 -Date of Last Picture (Recall this 11/05/21 field) -Photo Taken Yes -Epithelialization None Present -Tunneling No -Undermining/Tunneling No -Undermining/Tunneling Starts (O'clock ) -Undermining/Tunneling Ends (O'clock) -Maximum Distance (cm) -Circular Undermining No -Change in Wound Grade/Stage No -Exudate Amt Large -Exudate Type Serosanguineous -Wound Margin Distinct, Outline Attached -Granulation Amt Small (1-33%) -Granulation Quality Red -Slough/Fibrin Yes -Necrosis Amt Medium (34-66%) -Necrotic Tissue Type Adherent Slough -Structure Exposed Bone -Texture (Margaret-wound Skin Appearance) Assessed,Callus ,Excoriation -Moisture (Margaret-wound Skin Appearance) Assessed, Maceration, Weeping -Color (Margaret-wound Skin Appearance) Assessed,Palor -Temperature (Margaret-wound Skin No Abnormality Appearance) (Pt Warm) -Tenderness on Palpation (Margaret-wound No Skin Appearance) -Ulcer Cleansing Soap and Water -Foul Odor after Cleansing No -Anesthetic Used 4% Lidocaine Solution,5% Lidocaine Gel Lower Limb Edema Present No Left Calf (cm) 56 Left Ankle (cm) 32.2 11/05/21 09:25 Wound Center by Roger Mason pt reports extreme pain when applying any pressure. Pt states he heard a pop when attempting to walk on Sat. His calf is red large and swollen with heat. Initialized on 11/05/21 09:25 - END OF NOTE WC - Nurse 2 - General Ulcer CM Notes Start: 10/17/21 10:55 Freq: Status: Active Protocol: Activity Type Activity Date Activity User E-sign Co-sign Detail Recorded Client Recorded Date Recorded By Document 10/17/21 11:18 [id number] 10/17/21 11:30 Document 10/24/21 08:37 [id number] 10/24/21 08:38 Document 10/24/21 09:10 MW [id number] 10/24/21 09:10 Document 10/31/21 14:03 [id number] 10/31/21 14:12 JF Edit Result 10/31/21 14:03 (1) [id number] 11/01/21 06:55 PL (1) 4-left plantar arch - Type of Offloading Camwalker => Total Contact Cast => (TCC) - Left ($) 10/17/21 10/24/21 10/24/21 11:18 08:37 09:10 Wound Center Nurse 2 4-left plantar arch -Time 11:19 08:37 -Correct Patient Yes Yes -Correct Side, Site, Position Yes Yes -Correct Procedure Yes Yes -Procedure Performed Yes Yes -Type of Procedure Debridement Debridement -Clinical Debridement Subcutaneous Subcutaneous -Tissue Removed Subcutaneous Subcutaneous -Post Debridement (cm) - Length 1.2 1.6 -Post Debridement (cm) - Width 1.9 1.5 -Post Debridement (cm) - Depth 0.1 0.1 -Total Square (Post) (cm) 2.28 2.40 -Area of Debridement (cm) - Length 1.2 1.6 -Area of Debridement (cm) - Width 1.9 1.5 -Total Square (Area) (cm) 2.28 2.40 -Tunneling No No -Undermining/Tunneling No No -Circular Undermining No No -Wound/Ulcer Outcome Not Healed Not Healed -Ulcer Cleansing Rinsed/ Rinsed/ Irrigated with Irrigated with Saline Saline -Foul Odor after Cleansing No No -Bioengineered Tissue No No -Bleeding Controlled with Pressure Pressure -Treatment Response Procedure Procedure Tolerated Well Tolerated Well -Offloading Yes Yes -Type of Offloading Camwalker Camwalker -Assistive Device(s) Wheelchair -Debridement - Subq, 1st 20sq cm Yes No #1 left heel cluster -Time 11:19 08:38 -Correct Patient Yes Yes -Correct Side, Site, Position Yes Yes -Correct Procedure Yes Yes -Procedure Performed Yes Yes -Type of Procedure Debridement Debridement -Clinical Debridement Bone Subcutaneous -Tissue Removed Biofilm Subcutaneous -Post Debridement (cm) - Length 2.6 3.0 -Post Debridement (cm) - Width 1.8 3.5 -Post Debridement (cm) - Depth 1.8 2.0 -Total Square (Post) (cm) 4.68 10.50 -Area of Debridement (cm) - Length 2.6 3.0 -Area of Debridement (cm) - Width 1.8 3.5 -Total Square (Area) (cm) 4.68 10.50 -Tunneling No No -Undermining/Tunneling No No -Circular Undermining No No -Wound/Ulcer Outcome Not Healed Not Healed -Ulcer Cleansing Rinsed/ Rinsed/ Irrigated with Irrigated with Saline Saline -Foul Odor after Cleansing No -Bioengineered Tissue No No -Bleeding Controlled with Pressure Pressure -Treatment Response Procedure Procedure Tolerated Well Tolerated Well -Offloading Yes Yes -Type of Offloading Camwalker Knee Walker -Debridement - Subq, 1st 20sq cm Yes -Debridement - Bone, 1st 20sq cm Yes Pain Scale: 0-10 Numeric Is Patient Pain Free? Yes Yes Yes 10/31/21 14:03 Wound Center Nurse 2 4-left plantar arch -Time 14:03 -Correct Patient Yes -Correct Side, Site, Position Yes -Correct Procedure Yes -Procedure Performed Yes -Type of Procedure Debridement -Clinical Debridement Subcutaneous -Tissue Removed Subcutaneous -Post Debridement (cm) - Length 1.0 -Post Debridement (cm) - Width 1.4 -Post Debridement (cm) - Depth 0.1 -Total Square (Post) (cm) 1.40 -Area of Debridement (cm) - Length 1.0 -Area of Debridement (cm) - Width 1.4 -Total Square (Area) (cm) 1.40 -Tunneling No -Undermining/Tunneling No -Circular Undermining No -Wound/Ulcer Outcome Not Healed -Ulcer Cleansing Rinsed/ Irrigated with Saline -Foul Odor after Cleansing No -Bioengineered Tissue No -Bleeding Controlled with Pressure -Treatment Response Procedure Tolerated Well -Offloading Yes -Type of Offloading Total Contact Cast (TCC) - Left ($) -Assistive Device(s) -Debridement - Subq, 1st 20sq cm No #1 left heel cluster -Time 14:04 -Correct Patient Yes -Correct Side, Site, Position Yes -Correct Procedure Yes -Procedure Performed Yes -Type of Procedure Debridement -Clinical Debridement Subcutaneous -Tissue Removed Subcutaneous -Post Debridement (cm) - Length 3 -Post Debridement (cm) - Width 3 -Post Debridement (cm) - Depth 1.3 -Total Square (Post) (cm) 9 -Area of Debridement (cm) - Length 3 -Area of Debridement (cm) - Width 3 -Total Square (Area) (cm) 9 -Tunneling No -Undermining/Tunneling No -Circular Undermining No -Wound/Ulcer Outcome Not Healed -Ulcer Cleansing Rinsed/ Irrigated with Saline -Foul Odor after Cleansing -Bioengineered Tissue No -Bleeding Controlled with Pressure -Treatment Response Procedure Tolerated Well -Offloading Yes -Type of Offloading Camwalker -Debridement - Subq, 1st 20sq cm Yes -Debridement - Bone, 1st 20sq cm Pain Scale: 0-10 Numeric Is Patient Pain Free? Yes WC - Nurse 3 - General Ulcer D/C NN Start: 10/17/21 10:55 Freq: Status: Active Protocol: Activity Type Activity Date Activity User E-sign Co-sign Detail Recorded Client Recorded Date Recorded By Document 10/17/21 11:59 RB [id number] 10/17/21 12:00 RB Document 10/24/21 08:47 DL [id number] 10/24/21 08:50 DL Document 10/31/21 14:19 BMF [id number] 10/31/21 14:21 BMF Document 11/05/21 10:39 AK [id number] 11/05/21 10:41 AK 10/17/21 10/24/21 10/31/21 11:59 08:47 14:19 Wound Care Nurse 3 4-left plantar arch -Ulcer Cleansing Soap and Water Rinsed/ Irrigated with Saline -Foul Odor after Cleansing No No -Negative Pressure Wound Therapy -Primary Dressing Applied -Other Dressing saline Betadine/ betadine gauze, moistened gauze superabsorber optilock sample, tcc undercast per dl building insulation installer -Primary Dressing Covered/Secured with Dry Gauze,Dry Dry Gauze & Gauze & Roll Roll Gauze, Gauze,Secured Secured with with Tape Tape -Aquacel AG 4x4 #1 left heel cluster -Ulcer Cleansing Rinsed/ Soap and Water Rinsed/ Irrigated with Irrigated with Saline Saline -Foul Odor after Cleansing No No -Negative Pressure Wound Therapy -Primary Dressing Applied -Other Dressing saline Bertadine/ betadine gauze, moistened gauze Superabsorber optilock sample, tcc undercast per dl building insulation installer -Primary Dressing Covered/Secured with Dry Gauze,Dry Dry Gauze & Gauze & Roll Roll Gauze, Gauze,Secured Secured with with Tape Tape -Aquacel AG 4x4 Left -Lotion applied to leg before compression wrap -Multi-Layered Wrap Application Multi-Layer Comp - Left ($) -Compression Wrap -Other kevin tcc undercast per dl building insulation installer Treatment Response Procedure Procedure Procedure Tolerated Well Tolerated Well Tolerated Well Pain Scale: 0-10 Numeric Is Patient Pain Free? Yes Yes Yes WC - Visit Discharge Discharge Condition Stable Stable Stable Ambulatory Status Wheelchair Wheelchair Wheelchair Transportation Private Auto Private Auto Private Auto Medication Reconcilliation completed & No provided to patient/care provider Clinical Summary of Care Provided Yes Notes: Facility Type Home Health Notes: to resume [facility] at home Orders Sent Yes 11/05/21 10:39 Wound Care Nurse 3 4-left plantar arch -Ulcer Cleansing Rinsed/ Irrigated with Saline -Foul Odor after Cleansing No -Negative Pressure Wound Therapy N/A -Primary Dressing Applied Aquacel AG 4x4 -Other Dressing ABD -Primary Dressing Covered/Secured with Dry Gauze & Roll Gauze, Secured with Tape -Aquacel AG 4x4 1 #1 left heel cluster -Ulcer Cleansing Rinsed/ Irrigated with Saline -Foul Odor after Cleansing No -Negative Pressure Wound Therapy N/A -Primary Dressing Applied Aquacel AG 4x4 -Other Dressing nurses hat -Primary Dressing Covered/Secured with Dry Gauze & Roll Gauze, Secured with Tape -Aquacel AG 4x4 0 Left -Lotion applied to leg before No compression wrap -Multi-Layered Wrap Application -Compression Wrap Kevin Wrap -Other Treatment Response Pain Scale: 0-10 Numeric Is Patient Pain Free? No WC - Visit Discharge Discharge Condition Stable Ambulatory Status Wheelchair Transportation Private Auto Medication Reconcilliation completed & Yes provided to patient/care provider Clinical Summary of Care Provided Yes Notes: Pt has orders to check for DVT then will come back for kevin wraps if negative results. Facility Type Notes: Orders Sent Assessment/Plan Assessment/Plan (1) Non-pressure chronic ulcer of left heel and midfoot with fat layer exposed: CODE(S): L97.422 - Non-pressure chronic ulcer of left heel and midfoot with fat layer exposed (2) Localized edema: CODE(S): R60.0 - Localized edema (3) Diabetes mellitus: CODE(S): E11.9 - Type 2 diabetes mellitus without complications (4) Type 2 diabetes mellitus with diabetic polyneuropathy: CODE(S): E11.42 - Type 2 diabetes mellitus with diabetic polyneuropathy QUALIFIERS: Diabetes mellitus petroleum terminal plant operator insulin use: with petroleum terminal plant operator use Qualified Code(s): E11.42 - Type 2 diabetes mellitus with diabetic polyneuropathy; Z79.4 - watermelon inspector (current) use of insulin (5) Diabetic foot ulcer: CODE(S): E11.621 - Type 2 diabetes mellitus with foot ulcer; L97.509 - Non-pressure chronic ulcer of other part of unspecified foot with unspecified severity QUALIFIERS: Diabetes mellitus type: type 2 Diabetic foot ulcer location: heel Laterality: left Non-pressure ulcer stage: with fat layer exposed Qualified Code(s): E11.621 - Type 2 diabetes mellitus with foot ulcer; L97.422 - Non-pressure chronic ulcer of left heel and midfoot with fat layer exposed (6) Tobacco abuse: CODE(S): Z72.0 - Tobacco use (7) Cellulitis of left lower limb: CODE(S): L03.116 - Cellulitis of left lower limb (8) Chronic ulcer of left foot with necrosis of bone: CODE(S): L97.524 - Non-pressure chronic ulcer of other part of left foot with necrosis of bone (9) Foot osteomyelitis: CODE(S): M86.9 - Osteomyelitis, unspecified QUALIFIERS: Laterality: left Osteomyelitis type: other acute Qualified Code(s): M86.172 - Other acute osteomyelitis, left ankle and foot (10) Difficulty in walking: CODE(S): R26.2 - Difficulty in walking, not elsewhere classified (11) Left foot pain: CODE(S): M79.672 - Pain in left foot (12) Pain of left calf: CODE(S): M79.662 - Pain in left lower leg (13) Deep vein thrombosis (DVT) of left lower extremity: CODE(S): I82.402 - Acute embolism and thrombosis of unspecified deep veins of left lower extremity PLAN: Plan Courtesy visit today to have TCC changed. Upon inspection of his left leg and left heel/foot ulcers, it was noted that he has a

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
[2021-11-07 10:19] VITALS: BP 128/58; PULSE 71; RESP 18; TEMP 36.9; BMI 33.7
--- NOTE | 2021-11-07 10:45 | BONBX_PTH ---
PATIENT: JUAREZ GOODRICH LOC: U#:[id number] AGE/SX: 66/M ROOM: RE11/14/[address]: Dr. Tiffany Chapman DPM : 1955 BED: DIS: 11/15/2021 SPEC #: [id number] RECD: 11/07/21 11:13 STATUS: MALENA REIsabel #: [id number] GILBERTO: 11/07/21 10:[address]: Tiffany Chapman DEPT: SURGICAL PATHOLOGY RECD BY: Kimberly Acevedo ENTERED: 11/07/21 11:27 SP TYPE: Bone OTHR DR: Dr. Chelsea Nair, HOOD No Primary Care Phys Tissues: Bone of foot, NOS Procedures: Decalcification bone/plaque Surgery Specimen Level IV HEADER OPERATION: Left bone biopsy PRE-OP DIAGNOSIS: Osteomyelitis TISSUE SUBMITTED: Left heel bone MICROSCOPIC DIAGNOSIS Left heel bone, biopsy: A piece of bone with acute osteomyelitis. SJ:dominique 11/09/2021 MICROSCOPIC DESCRIPTION Slides are reviewed. GROSS DESCRIPTION Received in fixative is one container labeled with the patient's name and designated left heel bone. The specimen consists of a piece of bone measuring 1.5 x 1 x 1.5 cm. The specimen is serially sectioned and submitted entirely in one cassette after decalcification. / ROSETTE:dominique 11/08/2021 TC:2 CPT: 01182, 19363
--- NOTE | 2021-11-07 11:48 | PN.PCM_ITS ---
History of Present Illness Date of Service: 11/07/21 Chief Complaint: left heel and arch ulcers History of Wound: Patient presents for chronic non healing wound to left plantar foot (heel and arch). A limb and life-threatening infection which required emergent surgical intervention on 05-29-2021. He has been demonstrating improvement with total contact cast applications however had recent deteriorization and now has exposed bone to the heel now with additional osteomyelitis. A culture demonstrated multi organism growth. 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 Raphael. He denies fever, chill, nausea, vomiting, pain, odor, redness. He is keeping weight off of his f oot he reports. He has been taking doxycycline and Augmentin as prescribed. He is in the process of getting cleared for hyperbaric oxygen therapy treatment for osteomyelitis and Acevedo grade 3. He is still going through the cardiac clearance process because he needs to reschedule his echo due to inability to travel (electrical power loss last week). He ultimately wants to proceed forward with hyperbaric oxygen therapy and antibiotics today however admits he is considering a below the knee amputation if he does not start seeing improvement and reduction in pain in the near future. He is also following up with pain management. It is noted he is having continued significant pain now that he has more bone exposed and free floating today. He is already noted to be under the care of a plate painter apprentice and is taking Percocet, Tylenol, and gabapentin. It is also noted he was diagnosed with a deep venous thrombosis and was started on Eliquis this past Friday evening. His leg is significantly larger in size and he discontinued compression. Progress of Wound: worse Objective Data Objective Data Vital Signs: Vital Signs Temp Pulse Resp BP 98.5 F 71 18 128/58 H 11/07/21 10:19 11/07/21 10:19 11/07/21 10:19 11/07/21 10:19 Body Mass Index (BMI) 33.7 Lab / Micro Data Micro: Microbiology 10/17/21 11:24 Bone - Other Gram Stain - Final 10/17/21 11:24 Bone - Other Wound Culture - Final Enterobacter cloacae complex Meth. resistant Staph. aureus Corynebacterium striatum 10/17/21 11:24 Bone - Other Anaerobic Culture - Final No anaerobic bacteria isolated. Physical Exam Narrative Const alert and no apparent distress General Appearance: cooperative and comfortable Extremity There is diffuse left foot/ankle and leg swelling. Left foot s/p debridement to arch and heel, tissues are healthy and viable, granular. no longer visualized fascia and muscle layer to the arch. positive probe to bone is now larger area to the heel;this is loose and soft and dorado today. There is no streaking or odor, compartments remain soft to palpate, there is no fluctuance or bogginess on palpation, no drainage, no visible abscess, no cellulitis, no blistering present. Hematogenous / serosanguineous drainage only upon debridement. Periwound moisture and maceration is has resolved. General Extremity: Negative for clubbing or cyanosis to digits. Vasc normal capillary refill, no acute ischemic skin changes noted, normal temperature bilateral. Const oriented x3 General Appearance: cooperative Extremity Left Lower Extremity: lower leg Skin Skin Narrative: Wounds left heel osteomyelitis Wounds: wounds noted Wound Narrative: Neuro Neuro Narrative: Debridement Note Debridement Note Wound debrided: left heel, left arch Wound Grade/Stage: 3,3 Type of Debridement: Excisional debridement Anesthesia Used: 4% Lidocaine Solution Depth: in the subcutaneous layer, to bone (heel) and - (misonic ultrasound debridement) Percentage of wound debrided: 100 Instrument Used: #15 blade Tissue Removed: fibrous, devitalized subcutaneous, biofilm, slough Severity: Fat Layer Exposed Amount of bleeding with debridement: Mild Bleeding Controlled with: Pressure Patient tolerated procedure: Patient tolerated procedure well Post-Debridement Measurements and Additional Note: Post-Debridement Measurements/Treatment JANESSA - Nurse 1 - General Ulcer Assessment Start: 10/17/21 10:55 Freq: Status: Active Protocol: EVELYN Activity Type Activity Date Activity User E-sign Co-sign Detail Recorded Client Recorded Date Recorded By Document 10/17/21 11:01 DL [id number] 10/17/21 11:10 DL Document 10/24/21 08:12 RB [id number] 10/24/21 08:21 RB Document 10/31/21 13:50 AK [id number] 10/31/21 13:58 AK Document 11/05/21 09:01 AK [id number] 11/05/21 09:26 AK Document 11/07/21 10:19 RB [id number] 11/07/21 10:29 RB 10/17/21 10/24/21 10/31/21 11:01 08:12 13:50 WC - Today's Visit Information Type of service Follow-up Visit Follow-up Visit Follow-up Visit (Physician/FOOD SERVICE TECHNICIAN (Physician/FOOD SERVICE TECHNICIAN (Physician/FOOD SERVICE TECHNICIAN ) ) ) Arrival Mode Wheelchair Wheelchair Wheelchair Transfer Assistance Manual Manual Transfer Assist (Other) x2 Patient Identification Verified (Name & Yes Yes Yes ) Patient Requires Transmission-Based No No No Precautions Safety Precautions NA Height and Weight Body Mass Index (BMI) 33.7 33.7 33.7 BMI Classification Obese Obese Obese Vital Signs Temperature (97.8 F-99.1 F) 98.3 F 97.2 F L 96.2 F L Temperature Source Temporal Temporal Temporal Pulse Rate (60-100) 64 69 66 Pulse Location Monitor Monitor Monitor Respiratory Rate (12-18) 20 H 18 Respiratory rate source Observation Observation Blood Pressure (90/60-120/80) 131/58 H 138/76 H 126/69 H Blood Pressure Mean (mm Hg) 82 96 88 Source Monitor Monitor Monitor Position Semi-Fowlers Blood Pressure Location Left Arm History Since Last Visit- (Skip if this is Patient's initial visit) Have you changed medications since your No No No last visit? Any new allergies or adverse reactions No No No Had a fall/change in ADL's that may No No No increase risk of falls Signs or symptoms of abuse and/or No No No neglect since last visit Have you been in the hospital since your No No No last visit? Has dressing in place as prescribed Yes Yes Yes Has compression in place as prescribed N/A No Yes Has offloadiing in place as prescribed Yes Yes N/A Experienced any changes in pain level or No No No management Left Footwear Surgical Shoe Regular Shoe with pressure relief insole Right Footwear Regular Shoe Removable Cast Walker/Walking Boot Pain Scale: 0-10 Numeric Is Patient Pain Free? Yes No No LLE -Description Aching Sharp -Intensity 9 -Duration (hours) Acute -Pain Behavior Withdrawal from Guarding, Touch Withdrawal from Touch,Facial Grimacing -Pain Aggravating Factors ADL's Surgery -Alleviating Factors/Interventions Medication Emotional Support -Effectiveness of Alleviating Factor/ Minimally Not effective Intervention effective -Comments Pt is experiencing pain 7-10. He states that he rather have an amputation than to continue to live with the pain. I relayed info to Dr. Chapman. 11/05/21 11/07/21 09:01 10:19 WC - Today's Visit Information Type of service Follow-up Visit Follow-up Visit (Physician/FOOD SERVICE TECHNICIAN (Physician/FOOD SERVICE TECHNICIAN ) ) Arrival Mode Wheelchair Wheelchair Transfer Assistance Manual Transfer Assist (Other) Patient Identification Verified (Name & Yes Yes ) Patient Requires Transmission-Based No No Precautions Safety Precautions NA Height and Weight Body Mass Index (BMI) 33.7 33.7 BMI Classification Obese Obese Vital Signs Temperature (97.8 F-99.1 F) 98.5 F Temperature Source Oral Pulse Rate (60-100) 68 71 Pulse Location Monitor Monitor Respiratory Rate (12-18) 18 Respiratory rate source Observation Blood Pressure (90/60-120/80) 147/60 H 128/58 H Blood Pressure Mean (mm Hg) 89 81 Source Monitor Monitor Position Semi-Fowlers Blood Pressure Location Left Arm History Since Last Visit- (Skip if this is Patient's initial visit) Have you changed medications since your No No last visit? Any new allergies or adverse reactions No No Had a fall/change in ADL's that may No No increase risk of falls Signs or symptoms of abuse and/or No No neglect since last visit Have you been in the hospital since your No Yes last visit? Has dressing in place as prescribed Yes Yes Has compression in place as prescribed Yes No Has offloadiing in place as prescribed Yes Yes Experienced any changes in pain level or No No management Left Footwear Removable Cast Surgical Shoe Walker/Walking with pressure Boot relief insole Right Footwear Regular Shoe Regular Shoe Pain Scale: 0-10 Numeric Is Patient Pain Free? No Yes LLE -Description -Intensity -Duration (hours) -Pain Behavior -Pain Aggravating Factors -Alleviating Factors/Interventions -Effectiveness of Alleviating Factor/ Intervention -Comments WC - Nurse 1 - General Ulcer Measurement Start: 10/17/21 10:55 Freq: Status: Active Protocol: Activity Type Activity Date Activity User E-sign Co-sign Detail Recorded Client Recorded Date Recorded By Document 10/17/21 11:01 DL [id number] 10/17/21 11:10 DL Document 10/24/21 08:12 RB [id number] 10/24/21 08:21 RB Document 10/31/21 13:50 AK [id number] 10/31/21 13:58 AK Document 11/05/21 09:01 AK [id number] 11/05/21 09:26 AK Document 11/07/21 10:19 RB [id number] 11/07/21 10:29 RB 10/17/21 10/24/21 10/31/21 11:01 08:12 13:50 Wound Center Nurse 1 4-left plantar arch -Combined with other wound No No -Current Size (cm) - Length 1.2 1.6 0.7 -Current Size (cm) - Width 1.8 1.4 1.1 -Current Size (cm) - Depth 0.1 0.1 -Total Square Cm 2.16 2.24 0.77 -Date of Last Picture (Recall this field) -Photo Taken No Yes Yes -Epithelialization None Present -Tunneling No No -Undermining/Tunneling No No -Circular Undermining No No -Change in Wound Grade/Stage No -Exudate Amt Small Large Large -Exudate Type Serosanguineous Serosanguineous Yellow/Green -Wound Margin Thickened Distinct, Distinct, Outline Outline Attached Attached -Granulation Amt Large (67-100%) Medium (34-66%) None Present (0 %) -Granulation Quality Whitehall,Red Whitehall N/A -Slough/Fibrin Yes -Necrosis Amt Small (1-33%) Medium (34-66%) None Present (0 %) -Necrotic Tissue Type Adherent Slough Adherent Slough -Structure Exposed N/A Bone -Texture (Margaret-wound Skin Appearance) Callus, Callus Assessed Localized Edema ,Scarring -Moisture (Margaret-wound Skin Appearance) Maceration Maceration Assessed, Maceration -Color (Margaret-wound Skin Appearance) Hemosiderin Assessed Assessed, Staining Erythema,Palor -Temperature (Margaret-wound Skin No Abnormality No Abnormality No Abnormality Appearance) (Pt Warm) (Pt Warm) (Pt Warm) -Tenderness on Palpation (Margaret-wound No No No Skin Appearance) -Ulcer Cleansing Soap and Water Wound Cleanser Soap and Water -Foul Odor after Cleansing No No No -Anesthetic Used 5% Lidocaine 4% Lidocaine 4% Lidocaine Gel Solution,5% Solution,5% Lidocaine Gel Lidocaine Gel -Wound Comment(s) Tissue around wound is mascerated and white. There are areas of greying. Bone is exposed. #1 left heel cluster -Combined with other wound No -Current Size (cm) - Length 2.6 3 -Current Size (cm) - Width 1.8 3.4 -Current Size (cm) - Depth 1.7 1.9 -Total Square Cm 4.68 10.2 -Date of Last Picture (Recall this field) -Photo Taken Yes Yes -Epithelialization -Tunneling No -Undermining/Tunneling Yes -Undermining/Tunneling Starts (O'clock 7 9 ) -Undermining/Tunneling Ends (O'clock) 11 12 -Maximum Distance (cm) 0.5 1.3 -Circular Undermining -Change in Wound Grade/Stage -Exudate Amt Medium Medium -Exudate Type Serosanguineous Serosanguineous -Wound Margin Thickened Distinct, Outline Attached -Granulation Amt Medium (34-66%) Medium (34-66%) -Granulation Quality Whitehall Whitehall -Slough/Fibrin Yes -Necrosis Amt Medium (34-66%) Medium (34-66%) -Necrotic Tissue Type Adherent Slough Adherent Slough -Structure Exposed Bone N/A -Texture (Margaret-wound Skin Appearance) Localized Edema Assessed,Callus ,Scarring -Moisture (Margaret-wound Skin Appearance) Maceration Maceration -Color (Margaret-wound Skin Appearance) Hemosiderin Assessed Staining -Temperature (Margaret-wound Skin No Abnormality No Abnormality Appearance) (Pt Warm) (Pt Warm) -Tenderness on Palpation (Margaret-wound No No Skin Appearance) -Ulcer Cleansing Soap and Water Wound Cleanser -Foul Odor after Cleansing No No -Anesthetic Used 5% Lidocaine 4% Lidocaine Gel Solution,5% Lidocaine Gel Lower Limb Edema Present Left Calf (cm) Left Ankle (cm) 11/05/21 11/07/21 09:01 10:19 Wound Center Nurse 1 4-left plantar arch -Combined with other wound No No -Current Size (cm) - Length 4.5 0.6 -Current Size (cm) - Width 4.3 0.2 -Current Size (cm) - Depth 0.2 0.2 -Total Square Cm 19.35 0.12 -Date of Last Picture (Recall this 11/05/21 field) -Photo Taken Yes Yes -Epithelialization None Present -Tunneling No No -Undermining/Tunneling No No -Circular Undermining No No -Change in Wound Grade/Stage -Exudate Amt Large Large -Exudate Type Serosanguineous Serosanguineous -Wound Margin Distinct, Thickened Outline Attached -Granulation Amt Small (1-33%) Medium (34-66%) -Granulation Quality Whitehall Whitehall -Slough/Fibrin No Yes -Necrosis Amt Large (67-100%) Medium (34-66%) -Necrotic Tissue Type Adherent Slough Adherent Slough -Structure Exposed N/A -Texture (Margaret-wound Skin Appearance) Assessed, Callus Excoriation -Moisture (Margaret-wound Skin Appearance) Assessed, Assessed Weeping -Color (Margaret-wound Skin Appearance) Assessed,Palor Assessed -Temperature (Margaret-wound Skin No Abnormality No Abnormality Appearance) (Pt Warm) (Pt Warm) -Tenderness on Palpation (Margaret-wound No No Skin Appearance) -Ulcer Cleansing Soap and Water Soap and Water -Foul Odor after Cleansing No No -Anesthetic Used 4% Lidocaine 5% Lidocaine Solution,5% Gel Lidocaine Gel -Wound Comment(s) #1 left heel cluster -Combined with other wound No No -Current Size (cm) - Length 3.5 2.7 -Current Size (cm) - Width 3.2 2.5 -Current Size (cm) - Depth 1.5 1.5 -Total Square Cm 11.20 6.75 -Date of Last Picture (Recall this 11/05/21 field) -Photo Taken Yes Yes -Epithelialization None Present -Tunneling No No -Undermining/Tunneling No No -Undermining/Tunneling Starts (O'clock ) -Undermining/Tunneling Ends (O'clock) -Maximum Distance (cm) -Circular Undermining No No -Change in Wound Grade/Stage No -Exudate Amt Large Large -Exudate Type Serosanguineous Serosanguineous -Wound Margin Distinct, Thickened & Outline Rolled Under Attached -Granulation Amt Small (1-33%) Medium (34-66%) -Granulation Quality Red [place] -Slough/Fibrin Yes Yes -Necrosis Amt Medium (34-66%) Medium (34-66%) -Necrotic Tissue Type Adherent Slough Adherent Slough -Structure Exposed Bone N/A -Texture (Margaret-wound Skin Appearance) Assessed,Callus Assessed,Callus ,Excoriation -Moisture (Margaret-wound Skin Appearance) Assessed, Assessed Maceration, Weeping -Color (Margaret-wound Skin Appearance) Assessed,Palor -Temperature (Margaret-wound Skin No Abnormality Appearance) (Pt Warm) -Tenderness on Palpation (Margaret-wound No Yes Skin Appearance) -Ulcer Cleansing Soap and Water Soap and Water -Foul Odor after Cleansing No Yes -Anesthetic Used 4% Lidocaine 5% Lidocaine Solution,5% Gel Lidocaine Gel Lower Limb Edema Present No Yes Left Calf (cm) 56 55.1 Left Ankle (cm) 32.2 31.8 11/05/21 09:25 Wound Center by Roger Mason pt reports extreme pain when applying any pressure. Pt states he heard a pop when attempting to walk on Sat. His calf is red large and swollen with heat. Initialized on 11/05/21 09:25 - END OF NOTE WC - Nurse 2 - General Ulcer CM Notes Start: 10/17/21 10:55 Freq: Status: Active Protocol: Activity Type Activity Date Activity User E-sign Co-sign Detail Recorded Client Recorded Date Recorded By Document 10/17/21 11:18 [id number] 10/17/21 11:30 Document 10/24/21 08:37 [id number] 10/24/21 08:38 JF Document 10/24/21 09:10 [id number] 10/24/21 09:10 MW Document 10/31/21 14:03 [id number] 10/31/21 14:12 JF Edit Result 10/31/21 14:03 JF (1) [id number] 11/01/21 06:55 PL Document 11/07/21 10:38 [id number] 11/07/21 10:53 JF (1) 4-left plantar arch - Type of Offloading Camwalker => Total Contact Cast => (TCC) - Left ($) 10/17/21 10/24/21 10/24/21 11:18 08:37 09:10 Wound Center Nurse 2 4-left plantar arch -Time 11:19 08:37 -Correct Patient Yes Yes -Correct Side, Site, Position Yes Yes -Correct Procedure Yes Yes -Procedure Performed Yes Yes -Type of Procedure Debridement Debridement -Clinical Debridement Subcutaneous Subcutaneous -Tissue Removed Subcutaneous Subcutaneous -Post Debridement (cm) - Length 1.2 1.6 -Post Debridement (cm) - Width 1.9 1.5 -Post Debridement (cm) - Depth 0.1 0.1 -Total Square (Post) (cm) 2.28 2.40 -Area of Debridement (cm) - Length 1.2 1.6 -Area of Debridement (cm) - Width 1.9 1.5 -Total Square (Area) (cm) 2.28 2.40 -Tunneling No No -Undermining/Tunneling No No -Circular Undermining No No -Wound/Ulcer Outcome Not Healed Not Healed -Ulcer Cleansing Rinsed/ Rinsed/ Irrigated with Irrigated with Saline Saline -Foul Odor after Cleansing No No -Bioengineered Tissue No No -Bleeding Controlled with Pressure Pressure -Treatment Response Procedure Procedure Tolerated Well Tolerated Well -Offloading Yes Yes -Type of Offloading Camwalker Camwalker -Assistive Device(s) Wheelchair -Debridement - Subq, 1st 20sq cm Yes No #1 left heel cluster -Time 11:19 08:38 -Correct Patient Yes Yes -Correct Side, Site, Position Yes Yes -Correct Procedure Yes Yes -Procedure Performed Yes Yes -Type of Procedure Debridement Debridement -Clinical Debridement Bone Subcutaneous -Tissue Removed Biofilm Subcutaneous -Post Debridement (cm) - Length 2.6 3.0 -Post Debridement (cm) - Width 1.8 3.5 -Post Debridement (cm) - Depth 1.8 2.0 -Total Square (Post) (cm) 4.68 10.50 -Area of Debridement (cm) - Length 2.6 3.0 -Area of Debridement (cm) - Width 1.8 3.5 -Total Square (Area) (cm) 4.68 10.50 -Tunneling No No -Undermining/Tunneling No No -Circular Undermining No No -Wound/Ulcer Outcome Not Healed Not Healed -Ulcer Cleansing Rinsed/ Rinsed/ Irrigated with Irrigated with Saline Saline -Foul Odor after Cleansing No -Bioengineered Tissue No No -Bleeding Controlled with Pressure Pressure -Treatment Response Procedure Procedure Tolerated Well Tolerated Well -Offloading Yes Yes -Type of Offloading Camwalker Knee Walker -Debridement - Subq, 1st 20sq cm Yes -Debridement - Bone, 1st 20sq cm Yes Pain Scale: 0-10 Numeric Is Patient Pain Free? Yes Yes Yes 10/31/21 11/07/21 14:03 10:38 Wound Center Nurse 2 4-left plantar arch -Time 14:03 10:38 -Correct Patient Yes Yes -Correct Side, Site, Position Yes Yes -Correct Procedure Yes Yes -Procedure Performed Yes Yes -Type of Procedure Debridement Debridement -Clinical Debridement Subcutaneous Subcutaneous -Tissue Removed Subcutaneous Subcutaneous -Post Debridement (cm) - Length 1.0 0.6 -Post Debridement (cm) - Width 1.4 0.3 -Post Debridement (cm) - Depth 0.1 0.1 -Total Square (Post) (cm) 1.40 0.18 -Area of Debridement (cm) - Length 1.0 0.6 -Area of Debridement (cm) - Width 1.4 0.3 -Total Square (Area) (cm) 1.40 0.18 -Tunneling No No -Undermining/Tunneling No No -Circular Undermining No No -Wound/Ulcer Outcome Not Healed Not Healed -Ulcer Cleansing Rinsed/ Rinsed/ Irrigated with Irrigated with Saline Saline -Foul Odor after Cleansing No No -Bioengineered Tissue No No -Bleeding Controlled with Pressure Pressure -Treatment Response Procedure Procedure Tolerated Well Tolerated Well -Offloading Yes Yes -Type of Offloading Total Contact Camwalker Cast (TCC) - Left ($) -Assistive Device(s) -Debridement - Subq, 1st 20sq cm No Yes #1 left heel cluster -Time 14:04 10:38 -Correct Patient Yes Yes -Correct Side, Site, Position Yes Yes -Correct Procedure Yes Yes -Procedure Performed Yes Yes -Type of Procedure Debridement Debridement -Clinical Debridement Subcutaneous Bone -Tissue Removed Subcutaneous Slough -Post Debridement (cm) - Length 3 2.8 -Post Debridement (cm) - Width 3 2.5 -Post Debridement (cm) - Depth 1.3 1.8 -Total Square (Post) (cm) 9 7.00 -Area of Debridement (cm) - Length 3 2.8 -Area of Debridement (cm) - Width 3 2.5 -Total Square (Area) (cm) 9 7.00 -Tunneling No No -Undermining/Tunneling No No -Circular Undermining No No -Wound/Ulcer Outcome Not Healed Not Healed -Ulcer Cleansing Rinsed/ Rinsed/ Irrigated with Irrigated with Saline Saline -Foul Odor after Cleansing No -Bioengineered Tissue No No -Bleeding Controlled with Pressure Pressure -Treatment Response Procedure Procedure Tolerated Well Tolerated Well -Offloading Yes Yes -Type of Offloading Camwalker Camwalker -Debridement - Subq, 1st 20sq cm Yes -Debridement - Bone, 1st 20sq cm Yes Pain Scale: 0-10 Numeric Is Patient Pain Free? Yes Yes WC - Nurse 3 - General Ulcer D/C NN Start: 10/17/21 10:55 Freq: Status: Active Protocol: Activity Type Activity Date Activity User E-sign Co-sign Detail Recorded Client Recorded Date Recorded By Document 10/17/21 11:59 RB [id number] 10/17/21 12:00 RB Document 10/24/21 08:47 DL [id number] 10/24/21 08:50 DL Document 10/31/21 14:19 BMF [id number] 10/31/21 14:21 BMF Document 11/05/21 10:39 AK [id number] 11/05/21 10:41 AK Document 11/07/21 11:12 RB [id number] 11/07/21 11:15 RB 10/17/21 10/24/21 10/31/21 11:59 08:47 14:19 Wound Care Nurse 3 4-left plantar arch -Ulcer Cleansing Soap and Water Rinsed/ Irrigated with Saline -Foul Odor after Cleansing No No -Negative Pressure Wound Therapy -Primary Dressing Applied -Other Dressing saline Betadine/ betadine gauze, moistened gauze superabsorber optilock sample, tcc undercast per dl supervisory air intercept controller -Primary Dressing Covered/Secured with Dry Gauze,Dry Dry Gauze & Gauze & Roll Roll Gauze, Gauze,Secured Secured with with Tape Tape -Aquacel AG 4x4 -Aquacel AG 2x2 #1 left heel cluster -Ulcer Cleansing Rinsed/ Soap and Water Rinsed/ Irrigated with Irrigated with Saline Saline -Foul Odor after Cleansing No No -Negative Pressure Wound Therapy -Primary Dressing Applied -Other Dressing saline Bertadine/ betadine gauze, moistened gauze Superabsorber optilock sample, tcc undercast per dl supervisory air intercept controller -Primary Dressing Covered/Secured with Dry Gauze,Dry Dry Gauze & Gauze & Roll Roll Gauze, Gauze,Secured Secured with with Tape Tape -Other Covering -Aquacel AG 4x4 Left -Lotion applied to leg before compression wrap -Multi-Layered Wrap Application Multi-Layer Comp - Left ($) -Compression Wrap -Other kevin tcc undercast per dl supervisory air intercept controller Treatment Response Procedure Procedure Procedure Tolerated Well Tolerated Well Tolerated Well Pain Scale: 0-10 Numeric Is Patient Pain Free? Yes Yes Yes LLE -Description -Intensity -Pain Behavior -Pain Aggravating Factors -Alleviating Factors/Interventions -Effectiveness of Alleviating Factor/ Intervention WC - Visit Discharge Discharge Condition Stable Stable Stable Ambulatory Status Wheelchair Wheelchair Wheelchair Transportation Private Auto Private Auto Private Auto Medication Reconcilliation completed & No provided to patient/care provider Clinical Summary of Care Provided Yes Notes: Facility Type Home Health Notes: HH to resume [facility] at home Orders Sent Yes 11/05/21 11/07/21 10:39 11:12 Wound Care Nurse 3 4-left plantar arch -Ulcer Cleansing Rinsed/ Rinsed/ Irrigated with Irrigated with Saline Saline -Foul Odor after Cleansing No -Negative Pressure Wound Therapy N/A -Primary Dressing Applied Aquacel AG 4x4 Aquacel AG 2x2 -Other Dressing ABD abd -Primary Dressing Covered/Secured with Dry Gauze & Dry Gauze,Dry Roll Gauze, Gauze & Roll Secured with Gauze,Secured Tape with Tape -Aquacel AG 4x4 1 -Aquacel AG 2x2 1 #1 left heel cluster -Ulcer Cleansing Rinsed/ Irrigated with Saline -Foul Odor after Cleansing No -Negative Pressure Wound Therapy N/A -Primary Dressing Applied Aquacel AG 4x4 -Other Dressing nurses hat surgical foam applied by Dr Chapman -Primary Dressing Covered/Secured with Dry Gauze & Dry Gauze,Dry Roll Gauze, Gauze & Roll Secured with Gauze,Secured Tape with Tape -Other Covering abd -Aquacel AG 4x4 0 Left -Lotion applied to leg before No compression wrap -Multi-Layered Wrap Application -Compression Wrap Kevin Wrap -Other kevin Treatment Response Procedure Tolerated Well Pain Scale: 0-10 Numeric Is Patient Pain Free? No No LLE -Description Aching -Intensity 9 -Pain Behavior Withdrawal from Touch -Pain Aggravating Factors Walking -Alleviating Factors/Interventions Medication -Effectiveness of Alleviating Factor/ Moderately Intervention effective WC - Visit Discharge Discharge Condition Stable Stable Ambulatory Status Wheelchair Wheelchair Transportation Private Auto Private Auto Medication Reconcilliation completed & Yes No provided to patient/care provider Clinical Summary of Care Provided Yes Yes Notes: Pt has orders to check for DVT then will come back for kevin wraps if negative results. Facility Type Notes: Orders Sent Assessment/Plan Assessment/Plan (1) Non-pressure chronic ulcer of left heel and midfoot with fat layer exposed: CODE(S): L97.422 - Non-pressure chronic ulcer of left heel and midfoot with fat layer exposed (2) Localized edema: CODE(S): R60.0 - Localized edema (3) Diabetes mellitus: CODE(S): E11.9 - Type 2 diabetes mellitus without complications (4) Type 2 diabetes mellitus with diabetic polyneuropathy: CODE(S): E11.42 - Type 2 diabetes mellitus with diabetic polyneuropathy QUALIFIERS: Diabetes mellitus skilled nursing insulin use: with skilled nursing use Qualified Code(s): E11.42 - Type 2 diabetes mellitus with diabetic polyneuropathy; Z79.4 - terminal supervisor (current) use of insulin (5) Diabetic foot ulcer: CODE(S): E11.621 - Type 2 diabetes mellitus with foot ulcer; L97.509 - Non-pressure chronic ulcer of other part of unspecified foot with unspecified severity QUALIFIERS: Diabetes mellitus type: type 2 Diabetic foot ulcer location: heel Laterality: left Non-pressure ulcer stage: with fat layer exposed Qualified Code(s): E11.621 - Type 2 diabetes mellitus with foot ulcer; L97.422 - Non-pressure chronic ulcer of left heel and midfoot with fat layer exposed (6) Tobacco abuse: CODE(S): Z72.0 - Tobacco use (7) Cellulitis of left lower limb: CODE(S): L03.116 - Cellulitis of left lower limb (8) Chronic ulcer of left foot with necrosis of bone: CODE(S): L97.524 - Non-pressure chronic ulcer of other part of left foot with necrosis of bone (9) Foot osteomyelitis: CODE(S): M86.9 - Osteomyelitis, unspecified QUALIFIERS: Laterality: left Osteomyelitis type: other acute Qualified Code(s): M86.172 - Other acute osteomyelitis, left ankle and foot (10) Difficulty in walking: CODE(S): R26.2 - Difficulty in walking, not elsewhere classified (11) Left foot pain: CODE(S): M79.672 - Pain in left foot (12) DVT (deep venous thrombosis): CODE(S): I82.409 - Acute embolism and thrombosis of unspecified deep veins of unspecified lower extremity PLAN: Plan Patient seen and examined. I reviewed and discussed his case. Debridement was performed as noted in the clinical nursing panel and included more bone fragments from the calcaneus. Dressing recommendation: Applied today: gel foam, saline wet to dry bolster. This was also washed with soap and water. Patient wound is noted to have improved with healthier appearance and there is no malodor. However, there is now increased visualization bone to the heel I am concerned that he has some osteomyelitis deteriorization development. This was debrided and sent to micro and pathology on 11-07-21. He had noted prior multi organism bacterial growth with prior culture. Prior bone biopsy confirmed acute osteomyelitis. To follow up with Infectious disease specialist this afternoon as scheduled at 14:00. Offloading: To maintain a strict nonweightbearing status to the ulcer to the foot. To use assistive walking device as well. He has a cam walker. Advance wound options: He has a status change now with new diagnosis of osteomyelitis. I recommend hyperbaric oxygen therapy if he is medically cleared to undergo such treatment. He reports he is available to come in 5 days a week for couple hours each day and he has anticipated reliable transportation. He is in the process of getting cleared for hyperbaric oxygen therapy and will start soon. He did have to have some additional cardiac tests performed to ensure safety. He did also see ENT as well. I recommend he proceed as tolerated and as planned to optimize his healing potential. Patient relates he had follow-up appointment with his primary care provider, Priyanka Brown, and relates that she did not change any medication and stated he was doing okay. PCP is leaving the diabetes management up to his canvas worker apprentice, Dr. Mykel Barraza. He was able to follow-up and recommendations were updated. An updated hemoglobin A1c order was provided because we are unable to obtain this in a timely manner from the primary care physician's office. this was 8.6%. To follow up with pain management. It is noted he is already on gabapentin, Percocet, and Tylenol. I do not recommend additional narcotic pain medication which she is requesting today. We discussed source of pain is likely from his infection and from pressure applied while walking on this gradual site now that his bone is exposed. Edema management: Medical management per primary care. To reduce salt in diet. Total contact cast will also aide in edema reduction if this considered upon continued foot stability and resolution of infection status. Arterial studies were reviewed. Showing likely adequate perfusion for healing. Right LAI is 0.99 and left 1.18. Right toe brachial index 0.76 and left 0.71. Referral to Dr. Campos for potential venous and arterial intervention was provided today. He went for consultationon 04-11-21. Will recheck duplex to make sure normal posterior tibial flow into the area of the wound. normal prior LAI noted. Host factors: His multiple comorbidities are noted including diabetes and smoking history. Also recommend improvement in nutritional status which involves taking in adequate protein and also focusing on eating 5-10 whole foods daily. Gait abnormality/walking difficulty: I recommend PT and OT intervention with his home health agency. A referral was provided previously. He is at risk for falling. He is fragile and has demonstrated progressive deterioration. All questions answered. He understands below-knee amputation is an option as well if he cannot keep pressure off the site, if pain becomes intolerable, and if he no longer is able to proceed with a comprehensive wound healing plan. He defers at this time. This was discussed at length today. The benefits and indications of a below-knee amputation were reviewed. He would like to consider a referral to a doctor in the same healthcare system he attends in the [facility]. Patient to follow up in 1 week or call sooner if status worsening or if questions. He will follow-up on Friday for total contact cast evaluation and removal. I answered all of his questions. This note was generated with [employer] dictation software. It may contain incorrect words, spelling, and punctuation that were not noted in checking the note before signing. The medical decision making level is moderate based on data including at least three of the following: review of prior external notes, review of a test, ordering a test, assessment requiring an independent historian. The problems addressed require a moderate decision making level which includes one or more chronic illnesses (w/ exacerbation, progression, or side effects), two or more stable chronic illnesses, one undiagnosed new problem w/ uncertain prognosis, one acute illness with systemic symptoms, or one acute complicated injury.
[2021-11-14 10:22] VITALS: BP 127/69; PULSE 60; RESP 16; TEMP 36.3; BMI 33.7
--- NOTE | 2021-11-14 11:13 | PCM.WC.PN ---
History of Present Illness Date of Service: 11/14/21 Chief Complaint: left heel and arch ulcers History of Wound: Patient presents for chronic non healing wound to left plantar foot (heel and arch). A limb and life-threatening infection which required emergent surgical intervention on 05-29-2021. He has been demonstrating improvement with total contact cast applications however had recent deteriorization and now has exposed bone to the heel now with additional osteomyelitis. A culture demonstrated multi organism growth. 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 Raphael. He denies fever, chill, nausea, vomiting, pain, odor, redness. He is keeping weight off of his foot he reports. He has been taking doxycycline and Augmentin as prescribed. He is in the process of getting cleared for hyperbaric oxygen therapy treatment for osteomyelitis and Acevedo grade 3. He is still going through the cardiac clearance process because he needs to reschedule his echo due to inability to travel (electrical power loss last week). He ultimately wants to proceed forward with hyperbaric oxygen therapy and antibiotics today however admits he is considering a below the knee amputation if he does not start seeing improvement and reduction in pain in the near future. He is also following up with pain management. It is noted he is having continued significant pain now that he has more bone exposed and free floating today. He is already noted to be under the care of a embossed or impressed lettering painter and is taking Percocet, Tylenol, and gabapentin. It is also noted he was diagnosed with a deep venous thrombosis and was started on Eliquis. His leg is slightly reduced edema compared to last week. He saw infectious disease specialist last week and he continues to take antibiotics as advised; doxycycline, Augmentin and ciprofloxacin. His lab orders were recommended to be updated. He also fell and sprained his ankle within the past week. He went to the emergency room and had x-rays in which he reports this is negative. Pain is mild to moderate and is irritated with direct touch and walking. He reports he fell because he lost his balance and is weak. Progress of Wound: Stabilizing Objective Data Objective Data Vital Signs: Vital Signs Temp Pulse Resp BP O2 Del Method 97.3 F L 60 16 127/69 H Room Air 11/14/21 10:22 11/14/21 10:11/14/21 10:11/14/21 10:11/14/21 10:22 Oxygen Delivery Method Room Air Body Mass Index (BMI) 33.7 Lab / Micro Data Micro: Microbiology 11/07/21 Unknown Bone - Left Foot Gram Stain - Final 11/07/21 Unknown Bone - Left Foot Wound Culture - Final Meth. resistant Staph. aureus 11/07/21 Unknown Bone - Left Foot Anaerobic Culture - Final No anaerobic bacteria isolated. 10/17/21 11:24 Bone - Other Gram Stain - Final 10/17/21 11:24 Bone - Other Wound Culture - Final Enterobacter cloacae complex Meth. resistant Staph. aureus Corynebacterium striatum 10/17/21 11:24 Bone - Other Anaerobic Culture - Final No anaerobic bacteria isolated. Physical Exam Narrative Const alert and no apparent distress General Appearance: cooperative and comfortable Extremity There is diffuse left foot/ankle and leg swelling. Left foot s/p debridement to arch and heel, tissues are healthy and viable, granular. no longer visualized fascia and muscle layer to the arch. positive probe to bone is now larger area to the heel;this is no longer visualized. There is no streaking or odor, compartments remain soft to palpate, there is no fluctuance or bogginess on palpation, no drainage, no visible abscess, no cellulitis, no blistering present. Hematogenous / serosanguineous drainage only upon debridement. Periwound moisture and maceration is has resolved. General Extremity: Negative for clubbing or cyanosis to digits. He has pain on palpation to his lateral malleolus and lateral ankle ligaments and not to the medial malleolus. He has some discomfort to a lesser degree to the anterior ankle. The Achilles is palpably intact and he does not have pain to the ankle syndesmosis or proximal fibula of the left lower extremity. Vasc normal capillary refill, no acute ischemic skin changes noted, normal temperature bilateral. Const oriented x3 General Appearance: cooperative Extremity Left Lower Extremity: lower leg Skin Skin Narrative: Wounds left heel osteomyelitis Wounds: wounds noted Wound Narrative: Neuro Neuro Narrative: Debridement Note Debridement Note Wound debrided: left heel, left arch Laterality: Left Wound Grade/Stage: 3,3 Type of Debridement: Excisional debridement Anesthesia Used: 4% Lidocaine Solution Depth: in the subcutaneous layer, to bone (heel) and - (misonic ultrasound debridement) Percentage of wound debrided: 100 Instrument Used: #15 blade Tissue Removed: fibrous, devitalized subcutaneous, biofilm, slough Severity: Fat Layer Exposed Amount of bleeding with debridement: Mild Bleeding Controlled with: Pressure Patient tolerated procedure: Patient tolerated procedure well Post-Debridement Measurements and Additional Note: Post-Debridement Measurements/Treatment - Nurse 1 - General Ulcer Assessment Start: 10/17/21 10:55 Freq: Status: Active Protocol: [email or web address] Activity Type Activity Date Activity User E-sign Co-sign Detail Recorded Client Recorded Date Recorded By Document 10/17/21 11:01 DL [id number] 10/17/21 11:10 DL Document 10/24/21 08:12 RB [id number] 10/24/21 08:21 RB Document 10/31/21 13:50 AK [id number] 10/31/21 13:58 AK Document 11/05/21 09:01 AK [id number] 11/05/21 09:26 AK Document 11/07/21 10:19 RB [id number] 11/07/21 10:29 RB Document 11/14/21 10:22 BMF [id number] 11/14/21 10:39 BMF 10/17/21 10/24/21 10/31/21 11:01 08:12 13:50 - Today's Visit Information Type of service Follow-up Visit Follow-up Visit Follow-up Visit (Physician/PROGRAM INSTRUCTOR (Physician/PROGRAM INSTRUCTOR (Physician/PROGRAM INSTRUCTOR ) ) ) Arrival Mode Wheelchair Wheelchair Wheelchair Transfer Assistance Manual Manual Transfer Assist (Other) x2 Patient Identification Verified (Name & Yes Yes Yes ) Patient Requires Transmission-Based No No No Precautions Safety Precautions NA Height and Weight Body Mass Index (BMI) 33.7 33.7 33.7 BMI Classification Obese Obese Obese Vital Signs Temperature (97.8 F-99.1 F) 98.3 F 97.2 F L 96.2 F L Temperature Source Temporal Temporal Temporal Pulse Rate (60-100) 64 69 66 Pulse Location Monitor Monitor Monitor Respiratory Rate (12-18) 20 H 18 Respiratory rate source Observation Observation Oxygen Delivery Method Blood Pressure (90/60-120/80) 131/58 H 138/76 H 126/69 H Blood Pressure Mean (mm Hg) 82 96 88 Source Monitor Monitor Monitor Position Semi-Fowlers Blood Pressure Location Left Arm History Since Last Visit- (Skip if this is Patient's initial visit) Have you changed medications since your No No No last visit? Any new allergies or adverse reactions No No No Had a fall/change in ADL's that may No No No increase risk of falls Signs or symptoms of abuse and/or No No No neglect since last visit Have you been in the hospital since your No No No last visit? Has dressing in place as prescribed Yes Yes Yes Has compression in place as prescribed N/A No Yes Has offloadiing in place as prescribed Yes Yes N/A Experienced any changes in pain level or No No No management Left Footwear Surgical Shoe Regular Shoe with pressure relief insole Right Footwear Regular Shoe Removable Cast Walker/Walking Boot Pain Scale: 0-10 Numeric Is Patient Pain Free? Yes No No LLE -Description Aching Sharp -Intensity 9 -Duration (hours) Acute -Pain Behavior Withdrawal from Guarding, Touch Withdrawal from Touch,Facial Grimacing -Pain Aggravating Factors ADL's Surgery -Alleviating Factors/Interventions Medication Emotional Support -Effectiveness of Alleviating Factor/ Minimally Not effective Intervention effective -Comments Pt is experiencing pain 7-10. He states that he rather have an amputation than to continue to live with the pain. I relayed info to Dr. Chapman. 11/05/21 11/07/21 11/14/21 09:01 10:19 10:22 - Today's Visit Information Type of service Follow-up Visit Follow-up Visit Follow-up Visit (Physician/PROGRAM INSTRUCTOR (Physician/PROGRAM INSTRUCTOR (Physician/PROGRAM INSTRUCTOR ) ) ) Arrival Mode Wheelchair Wheelchair Wheelchair Transfer Assistance Manual None Transfer Assist (Other) Patient Identification Verified (Name & Yes Yes Yes ) Patient Requires Transmission-Based No No No Precautions Safety Precautions NA Height and Weight Body Mass Index (BMI) 33.7 33.7 33.7 BMI Classification Obese Obese Obese Vital Signs Temperature (97.8 F-99.1 F) 98.5 F 97.3 F L Temperature Source Oral Temporal Pulse Rate (60-100) 68 71 60 Pulse Location Monitor Monitor Monitor Respiratory Rate (12-18) 18 16 Respiratory rate source Observation Observation Oxygen Delivery Method Room Air Blood Pressure (90/60-120/80) 147/60 H 128/58 H 127/69 H Blood Pressure Mean (mm Hg) 89 81 88 Source Monitor Monitor Monitor Position Semi-Fowlers Sitting Blood Pressure Location Left Arm Left Arm History Since Last Visit- (Skip if this is Patient's initial visit) Have you changed medications since your No No No last visit? Any new allergies or adverse reactions No No No Had a fall/change in ADL's that may No No Yes increase risk of falls Signs or symptoms of abuse and/or No No No neglect since last visit Have you been in the hospital since your No Yes No last visit? Has dressing in place as prescribed Yes Yes Yes Has compression in place as prescribed Yes No Yes Has offloadiing in place as prescribed Yes Yes Yes Experienced any changes in pain level or No No No management Left Footwear Removable Cast Surgical Shoe Removable Cast Walker/Walking with pressure Walker/Walking Boot relief insole Boot Right Footwear Regular Shoe Regular Shoe Regular Shoe Pain Scale: 0-10 Numeric Is Patient Pain Free? No Yes Yes LLE -Description -Intensity -Duration (hours) -Pain Behavior -Pain Aggravating Factors -Alleviating Factors/Interventions -Effectiveness of Alleviating Factor/ Intervention -Comments WC - Nurse 1 - General Ulcer Measurement Start: 10/17/21 10:55 Freq: Status: Active Protocol: Activity Type Activity Date Activity User E-sign Co-sign Detail Recorded Client Recorded Date Recorded By Document 10/17/21 11:01 DL [id number] 10/17/21 11:10 DL Document 10/24/21 08:12 RB [id number] 10/24/21 08:21 RB Document 10/31/21 13:50 AK [id number] 10/31/21 13:58 AK Document 11/05/21 09:01 AK [id number] 11/05/21 09:26 AK Document 11/07/21 10:19 RB [id number] 11/07/21 10:29 RB Document 11/14/21 10:22 BMF [id number] 11/14/21 10:39 BMF 10/17/21 10/24/21 10/31/21 11:01 08:12 13:50 Wound Center Nurse 1 4-left plantar arch -Combined with other wound No No -Current Size (cm) - Length 1.2 1.6 0.7 -Current Size (cm) - Width 1.8 1.4 1.1 -Current Size (cm) - Depth 0.1 0.1 -Total Square Cm 2.16 2.24 0.77 -Date of Last Picture (Recall this field) -Photo Taken No Yes Yes -Epithelialization None Present -Tunneling No No -Undermining/Tunneling No No -Circular Undermining No No -Change in Wound Grade/Stage No -Exudate Amt Small Large Large -Exudate Type Serosanguineous Serosanguineous Yellow/Green -Wound Margin Thickened Distinct, Distinct, Outline Outline Attached Attached -Granulation Amt Large (67-100%) Medium (34-66%) None Present (0 %) -Granulation Quality [place] N/A -Slough/Fibrin Yes -Necrosis Amt Small (1-33%) Medium (34-66%) None Present (0 %) -Necrotic Tissue Type Adherent Slough Adherent Slough -Structure Exposed N/A Bone -Texture (Margaret-wound Skin Appearance) Callus, Callus Assessed Localized Edema ,Scarring -Moisture (Margaret-wound Skin Appearance) Maceration Maceration Assessed, Maceration -Color (Margaret-wound Skin Appearance) Hemosiderin Assessed Assessed, Staining Erythema,Palor -Temperature (Margaret-wound Skin No Abnormality No Abnormality No Abnormality Appearance) (Pt Warm) (Pt Warm) (Pt Warm) -Tenderness on Palpation (Margaret-wound No No No Skin Appearance) -Ulcer Cleansing Soap and Water Wound Cleanser Soap and Water -Foul Odor after Cleansing No No No -Anesthetic Used 5% Lidocaine 4% Lidocaine 4% Lidocaine Gel Solution,5% Solution,5% Lidocaine Gel Lidocaine Gel -Wound Comment(s) Tissue around wound is mascerated and white. There are areas of greying. Bone is exposed. #1 left heel cluster -Combined with other wound No -Current Size (cm) - Length 2.6 3 -Current Size (cm) - Width 1.8 3.4 -Current Size (cm) - Depth 1.7 1.9 -Total Square Cm 4.68 10.2 -Date of Last Picture (Recall this field) -Photo Taken Yes Yes -Epithelialization -Tunneling No -Undermining/Tunneling Yes -Undermining/Tunneling Starts (O'clock 7 9 ) -Undermining/Tunneling Ends (O'clock) 11 12 -Maximum Distance (cm) 0.5 1.3 -Circular Undermining -Change in Wound Grade/Stage -Exudate Amt Medium Medium -Exudate Type Serosanguineous Serosanguineous -Wound Margin Thickened Distinct, Outline Attached -Granulation Amt Medium (34-66%) Medium (34-66%) -Granulation Quality [place] -Slough/Fibrin Yes -Necrosis Amt Medium (34-66%) Medium (34-66%) -Necrotic Tissue Type Adherent Slough Adherent Slough -Structure Exposed Bone N/A -Texture (Margaret-wound Skin Appearance) Localized Edema Assessed,Callus ,Scarring -Moisture (Margaret-wound Skin Appearance) Maceration Maceration -Color (Margaret-wound Skin Appearance) Hemosiderin Assessed Staining -Temperature (Margaret-wound Skin No Abnormality No Abnormality Appearance) (Pt Warm) (Pt Warm) -Tenderness on Palpation (Margaret-wound No No Skin Appearance) -Ulcer Cleansing Soap and Water Wound Cleanser -Foul Odor after Cleansing No No -Anesthetic Used 5% Lidocaine 4% Lidocaine Gel Solution,5% Lidocaine Gel Lower Limb Edema Present Left Calf (cm) Left Ankle (cm) 11/05/21 11/07/21 11/14/21 09:01 10:19 10:22 Wound Center Nurse 1 4-left plantar arch -Combined with other wound No No No -Current Size (cm) - Length 4.5 0.6 1.5 -Current Size (cm) - Width 4.3 0.2 0.8 -Current Size (cm) - Depth 0.2 0.2 0.1 -Total Square Cm 19.35 0.12 1.20 -Date of Last Picture (Recall this 11/05/21 11/14/21 field) -Photo Taken Yes Yes Yes -Epithelialization None Present Medium 34-66% -Tunneling No No No -Undermining/Tunneling No No No -Circular Undermining No No No -Change in Wound Grade/Stage -Exudate Amt Large Large Small -Exudate Type Serosanguineous Serosanguineous Serous -Wound Margin Distinct, Thickened Distinct, Outline Outline Attached Attached -Granulation Amt Small (1-33%) Medium (34-66%) Small (1-33%) -Granulation Quality [place] -Slough/Fibrin No Yes Yes -Necrosis Amt Large (67-100%) Medium (34-66%) Large (67-100%) -Necrotic Tissue Type Adherent Slough Adherent Slough Adherent Slough -Structure Exposed N/A -Texture (Margaret-wound Skin Appearance) Assessed, Callus Assessed, Excoriation Scarring -Moisture (Margaret-wound Skin Appearance) Assessed, Assessed Assessed,Dry/ Weeping Scaly -Color (Margaret-wound Skin Appearance) Assessed,Palor Assessed Assessed -Temperature (Margaret-wound Skin No Abnormality No Abnormality No Abnormality Appearance) (Pt Warm) (Pt Warm) (Pt Warm) -Tenderness on Palpation (Margaret-wound No No No Skin Appearance) -Ulcer Cleansing Soap and Water Soap and Water Soap and Water -Foul Odor after Cleansing No No No -Anesthetic Used 4% Lidocaine 5% Lidocaine 4% Lidocaine Solution,5% Gel Solution Lidocaine Gel -Wound Comment(s) #1 left heel cluster -Combined with other wound No No No -Current Size (cm) - Length 3.5 2.7 3.1 -Current Size (cm) - Width 3.2 2.5 2.8 -Current Size (cm) - Depth 1.5 1.5 1.5 -Total Square Cm 11.20 6.75 8.68 -Date of Last Picture (Recall this 11/05/21 11/14/21 field) -Photo Taken Yes Yes Yes -Epithelialization None Present None Present -Tunneling No No No -Undermining/Tunneling No No No -Undermining/Tunneling Starts (O'clock ) -Undermining/Tunneling Ends (O'clock) -Maximum Distance (cm) -Circular Undermining No No No -Change in Wound Grade/Stage No -Exudate Amt Large Large Large -Exudate Type Serosanguineous Serosanguineous Sanguineous -Wound Margin Distinct, Thickened & Distinct, Outline Rolled Under Outline Attached Attached -Granulation Amt Small (1-33%) Medium (34-66%) Large (67-100%) -Granulation Quality [place] Red -Slough/Fibrin Yes Yes Yes -Necrosis Amt Medium (34-66%) Medium (34-66%) Small (1-33%) -Necrotic Tissue Type Adherent Slough Adherent Slough Adherent Slough -Structure Exposed Bone N/A -Texture (Margaret-wound Skin Appearance) Assessed,Callus Assessed,Callus Assessed, ,Excoriation Scarring -Moisture (Margaret-wound Skin Appearance) Assessed, Assessed Assessed,Dry/ Maceration, Scaly Weeping -Color (Margaret-wound Skin Appearance) Assessed,Palor Assessed -Temperature (Margaret-wound Skin No Abnormality No Abnormality Appearance) (Pt Warm) (Pt Warm) -Tenderness on Palpation (Margaret-wound No Yes Yes Skin Appearance) -Ulcer Cleansing Soap and Water Soap and Water Soap and Water -Foul Odor after Cleansing No Yes No -Anesthetic Used 4% Lidocaine 5% Lidocaine 4% Lidocaine Solution,5% Gel Solution Lidocaine Gel Lower Limb Edema Present No Yes Yes Left Calf (cm) 56 55.1 52.6 Left Ankle (cm) 32.2 31.8 28 11/05/21 09:25 Wound Center by Roger Mason pt reports extreme pain when applying any pressure. Pt states he heard a pop when attempting to walk on Sat. His calf is red large and swollen with heat. Initialized on 11/05/21 09:25 - END OF NOTE WC - Nurse 2 - General Ulcer CM Notes Start: 10/17/21 10:55 Freq: Status: Active Protocol: Activity Type Activity Date Activity User E-sign Co-sign Detail Recorded Client Recorded Date Recorded By Document 10/17/21 11:18 [id number] 10/17/21 11:30 JF Document 10/24/21 08:37 [id number] 10/24/21 08:38 Document 10/24/21 09:10 [id number] 10/24/21 09:10 Document 10/31/21 14:03 [id number] 10/31/21 14:12 Edit Result 10/31/21 14:03 JF (1) [id number] 11/01/21 06:55 PL Document 11/07/21 10:38 [id number] 11/07/21 10:53 JF (1) 4-left plantar arch - Type of Offloading Camwalker => Total Contact Cast => (TCC) - Left ($) 10/17/21 10/24/21 10/24/21 11:18 08:37 09:10 Wound Center Nurse 2 4-left plantar arch -Time 11:19 08:37 -Correct Patient Yes Yes -Correct Side, Site, Position Yes Yes -Correct Procedure Yes Yes -Procedure Performed Yes Yes -Type of Procedure Debridement Debridement -Clinical Debridement Subcutaneous Subcutaneous -Tissue Removed Subcutaneous Subcutaneous -Post Debridement (cm) - Length 1.2 1.6 -Post Debridement (cm) - Width 1.9 1.5 -Post Debridement (cm) - Depth 0.1 0.1 -Total Square (Post) (cm) 2.28 2.40 -Area of Debridement (cm) - Length 1.2 1.6 -Area of Debridement (cm) - Width 1.9 1.5 -Total Square (Area) (cm) 2.28 2.40 -Tunneling No No -Undermining/Tunneling No No -Circular Undermining No No -Wound/Ulcer Outcome Not Healed Not Healed -Ulcer Cleansing Rinsed/ Rinsed/ Irrigated with Irrigated with Saline Saline -Foul Odor after Cleansing No No -Bioengineered Tissue No No -Bleeding Controlled with Pressure Pressure -Treatment Response Procedure Procedure Tolerated Well Tolerated Well -Offloading Yes Yes -Type of Offloading Diurnalwalker -Assistive Device(s) Wheelchair -Debridement - Subq, 1st 20sq cm Yes No #1 left heel cluster -Time 11:19 08:38 -Correct Patient Yes Yes -Correct Side, Site, Position Yes Yes -Correct Procedure Yes Yes -Procedure Performed Yes Yes -Type of Procedure Debridement Debridement -Clinical Debridement Bone Subcutaneous -Tissue Removed Biofilm Subcutaneous -Post Debridement (cm) - Length 2.6 3.0 -Post Debridement (cm) - Width 1.8 3.5 -Post Debridement (cm) - Depth 1.8 2.0 -Total Square (Post) (cm) 4.68 10.50 -Area of Debridement (cm) - Length 2.6 3.0 -Area of Debridement (cm) - Width 1.8 3.5 -Total Square (Area) (cm) 4.68 10.50 -Tunneling No No -Undermining/Tunneling No No -Circular Undermining No No -Wound/Ulcer Outcome Not Healed Not Healed -Ulcer Cleansing Rinsed/ Rinsed/ Irrigated with Irrigated with Saline Saline -Foul Odor after Cleansing No -Bioengineered Tissue No No -Bleeding Controlled with Pressure Pressure -Treatment Response Procedure Procedure Tolerated Well Tolerated Well -Offloading Yes Yes -Type of Offloading Camwalker Knee Walker -Debridement - Subq, 1st 20sq cm Yes -Debridement - Bone, 1st 20sq cm Yes Pain Scale: 0-10 Numeric Is Patient Pain Free? Yes Yes Yes 10/31/21 11/07/21 14:03 10:38 Wound Center Nurse 2 4-left plantar arch -Time 14:03 10:38 -Correct Patient Yes Yes -Correct Side, Site, Position Yes Yes -Correct Procedure Yes Yes -Procedure Performed Yes Yes -Type of Procedure Debridement Debridement -Clinical Debridement Subcutaneous Subcutaneous -Tissue Removed Subcutaneous Subcutaneous -Post Debridement (cm) - Length 1.0 0.6 -Post Debridement (cm) - Width 1.4 0.3 -Post Debridement (cm) - Depth 0.1 0.1 -Total Square (Post) (cm) 1.40 0.18 -Area of Debridement (cm) - Length 1.0 0.6 -Area of Debridement (cm) - Width 1.4 0.3 -Total Square (Area) (cm) 1.40 0.18 -Tunneling No No -Undermining/Tunneling No No -Circular Undermining No No -Wound/Ulcer Outcome Not Healed Not Healed -Ulcer Cleansing Rinsed/ Rinsed/ Irrigated with Irrigated with Saline Saline -Foul Odor after Cleansing No No -Bioengineered Tissue No No -Bleeding Controlled with Pressure Pressure -Treatment Response Procedure Procedure Tolerated Well Tolerated Well -Offloading Yes Yes -Type of Offloading Total Contact Camwalker Cast (TCC) - Left ($) -Assistive Device(s) -Debridement - Subq, 1st 20sq cm No Yes #1 left heel cluster -Time 14:04 10:38 -Correct Patient Yes Yes -Correct Side, Site, Position Yes Yes -Correct Procedure Yes Yes -Procedure Performed Yes Yes -Type of Procedure Debridement Debridement -Clinical Debridement Subcutaneous Bone -Tissue Removed Subcutaneous Slough -Post Debridement (cm) - Length 3 2.8 -Post Debridement (cm) - Width 3 2.5 -Post Debridement (cm) - Depth 1.3 1.8 -Total Square (Post) (cm) 9 7.00 -Area of Debridement (cm) - Length 3 2.8 -Area of Debridement (cm) - Width 3 2.5 -Total Square (Area) (cm) 9 7.00 -Tunneling No No -Undermining/Tunneling No No -Circular Undermining No No -Wound/Ulcer Outcome Not Healed Not Healed -Ulcer Cleansing Rinsed/ Rinsed/ Irrigated with Irrigated with Saline Saline -Foul Odor after Cleansing No -Bioengineered Tissue No No -Bleeding Controlled with Pressure Pressure -Treatment Response Procedure Procedure Tolerated Well Tolerated Well -Offloading Yes Yes -Type of Offloading Camwalker Camwalker -Debridement - Subq, 1st 20sq cm Yes -Debridement - Bone, 1st 20sq cm Yes Pain Scale: 0-10 Numeric Is Patient Pain Free? Yes Yes WC - Nurse 3 - General Ulcer D/C NN Start: 10/17/21 10:55 Freq: Status: Active Protocol: Activity Type Activity Date Activity User E-sign Co-sign Detail Recorded Client Recorded Date Recorded By Document 10/17/21 11:59 RB [id number] 10/17/21 12:00 RB Document 10/24/21 08:47 DL [id number] 10/24/21 08:50 DL Document 10/31/21 14:19 [facility] [id number] 10/31/21 14:21 BM Document 11/05/21 10:39 AK [id number] 11/05/21 10:41 AK Document 11/07/21 11:12 RB [id number] 11/07/21 11:15 RB 10/17/21 10/24/21 10/31/21 11:59 08:47 14:19 Wound Care Nurse 3 4-left plantar arch -Ulcer Cleansing Soap and Water Rinsed/ Irrigated with Saline -Foul Odor after Cleansing No No -Negative Pressure Wound Therapy -Primary Dressing Applied -Other Dressing saline Betadine/ betadine gauze, moistened gauze superabsorber optilock sample, tcc undercast per dl bureau chief -Primary Dressing Covered/Secured with Dry Gauze,Dry Dry Gauze & Gauze & Roll Roll Gauze, Gauze,Secured Secured with with Tape Tape -Aquacel AG 4x4 -Aquacel AG 2x2 #1 left heel cluster -Ulcer Cleansing Rinsed/ Soap and Water Rinsed/ Irrigated with Irrigated with Saline Saline -Foul Odor after Cleansing No No -Negative Pressure Wound Therapy -Primary Dressing Applied -Other Dressing saline Bertadine/ betadine gauze, moistened gauze Superabsorber optilock sample, tcc undercast per dl bureau chief -Primary Dressing Covered/Secured with Dry Gauze,Dry Dry Gauze & Gauze & Roll Roll Gauze, Gauze,Secured Secured with with Tape Tape -Other Covering -Aquacel AG 4x4 Left -Lotion applied to leg before compression wrap -Multi-Layered Wrap Application Multi-Layer Comp - Left ($) -Compression Wrap -Other kevin tcc undercast per dl bureau chief Treatment Response Procedure Procedure Procedure Tolerated Well Tolerated Well Tolerated Well Pain Scale: 0-10 Numeric Is Patient Pain Free? Yes Yes Yes LLE -Description -Intensity -Pain Behavior -Pain Aggravating Factors -Alleviating Factors/Interventions -Effectiveness of Alleviating Factor/ Intervention WC - Visit Discharge Discharge Condition Stable Stable Stable Ambulatory Status Wheelchair Wheelchair Wheelchair Transportation Private Auto Private Auto Private Auto Medication Reconcilliation completed & No provided to patient/care provider Clinical Summary of Care Provided Yes Notes: Facility Type Home Health Notes: HH to resume [facility] at home Orders Sent Yes 11/05/21 11/07/21 10:39 11:12 Wound Care Nurse 3 4-left plantar arch -Ulcer Cleansing Rinsed/ Rinsed/ Irrigated with Irrigated with Saline Saline -Foul Odor after Cleansing No -Negative Pressure Wound Therapy N/A -Primary Dressing Applied Aquacel AG 4x4 Aquacel AG 2x2 -Other Dressing ABD abd -Primary Dressing Covered/Secured with Dry Gauze & Dry Gauze,Dry Roll Gauze, Gauze & Roll Secured with Gauze,Secured Tape with Tape -Aquacel AG 4x4 1 -Aquacel AG 2x2 1 #1 left heel cluster -Ulcer Cleansing Rinsed/ Irrigated with Saline -Foul Odor after Cleansing No -Negative Pressure Wound Therapy N/A -Primary Dressing Applied Aquacel AG 4x4 -Other Dressing nurses hat surgical foam applied by Dr Chapman -Primary Dressing Covered/Secured with Dry Gauze & Dry Gauze,Dry Roll Gauze, Gauze & Roll Secured with Gauze,Secured Tape with Tape -Other Covering abd -Aquacel AG 4x4 0 Left -Lotion applied to leg before No compression wrap -Multi-Layered Wrap Application -Compression Wrap Kevin Wrap -Other kevin Treatment Response Procedure Tolerated Well Pain Scale: 0-10 Numeric Is Patient Pain Free? No No LLE -Description Aching -Intensity 9 -Pain Behavior Withdrawal from Touch -Pain Aggravating Factors Walking -Alleviating Factors/Interventions Medication -Effectiveness of Alleviating Factor/ Moderately Intervention effective WC - Visit Discharge Discharge Condition Stable Stable Ambulatory Status Wheelchair Wheelchair Transportation Private Auto Private Auto Medication Reconcilliation completed & Yes No provided to patient/care provider Clinical Summary of Care Provided Yes Yes Notes: Pt has orders to check for DVT then will come back for kevin wraps if negative results. Facility Type Notes: Orders Sent Assessment/Plan Assessment/Plan (1) Non-pressure chronic ulcer of left heel and midfoot with fat layer exposed: CODE(S): L97.422 - Non-pressure chronic ulcer of left heel and midfoot with fat layer exposed (2) Localized edema: CODE(S): R60.0 - Localized edema (3) Diabetes mellitus: CODE(S): E11.9 - Type 2 diabetes mellitus without complications (4) Type 2 diabetes mellitus with diabetic polyneuropathy: CODE(S): E11.42 - Type 2 diabetes mellitus with diabetic polyneuropathy QUALIFIERS: Diabetes mellitus termite inspector insulin use: with termite inspector use Qualified Code(s): E11.42 - Type 2 diabetes mellitus with diabetic polyneuropathy; Z79.4 - extermination inspector (current) use of insulin (5) Diabetic foot ulcer: CODE(S): E11.621 - Type 2 diabetes mellitus with foot ulcer; L97.509 - Non-pressure chronic ulcer of other part of unspecified foot with unspecified severity QUALIFIERS: Diabetes mellitus type: type 2 Diabetic foot ulcer location: heel Laterality: left Non-pressure ulcer stage: with fat layer exposed Qualified Code(s): E11.621 - Type 2 diabetes mellitus with foot ulcer; L97.422 - Non-pressure chronic ulcer of left heel and midfoot with fat layer exposed (6) Tobacco abuse: CODE(S): Z72.0 - Tobacco use (7) Cellulitis of left lower limb: CODE(S): L03.116 - Cellulitis of left lower limb (8) Chronic ulcer of left foot with necrosis of bone: CODE(S): L97.524 - Non-pressure chronic ulcer of other part of left foot with necrosis of bone (9) Foot osteomyelitis: CODE(S): M86.9 - Osteomyelitis, unspecified QUALIFIERS: Laterality: left Osteomyelitis type: other acute Qualified Code(s): M86.172 - Other acute osteomyelitis, left ankle and foot (10) Difficulty in walking: CODE(S): R26.2 - Difficulty in walking, not elsewhere classified (11) Left foot pain: CODE(S): M79.672 - Pain in left foot (12) DVT (deep venous thrombosis): CODE(S): I82.409 - Acute embolism and thrombosis of unspecified deep veins of unspecified lower extremity (13) High ankle sprain of left lower extremity: CODE(S): S93.492A - Sprain of other ligament of left ankle, initial encounter PLAN: Plan Patient seen and examined. I reviewed and discussed his case. Debridement was performed as noted in the clinical nursing panel. Dressing recommendation: Applied today: PIERIS [employer] Friday, Friday, Friday. This was also washed with soap and water. Offloading: To maintain a strict nonweightbearing status to the ulcer to the foot. To use assistive walking device as well. He has a cam walker. Infection management: This culture results were reviewed with MRSA, Enterobacter, Enterococcus, and corynebacteria. To continue Doxy, Augmentin and Cipro per infectious disease recommendations which are appreciated. Lab trends will be followed. He has osteomyelitis which was confirmed with bone biopsy sent to microbiology and pathology. Advance wound options: He has a status change now with new diagnosis of osteomyelitis. I recommend hyperbaric oxygen therapy if he is medically cleared to undergo such treatment. He reports he is available to come in 5 days a week for couple hours each day and he has anticipated reliable transportation. He is in the process of getting cleared for hyperbaric oxygen therapy and will start soon. He did have to have some additional cardiac tests performed to ensure safety. He did also see ENT as well. I recommend he proceed as tolerated and as planned to optimize his healing potential. He has an echocardiogram scheduled for this upcoming Friday and will proceed only if it is appropriate. Patient relates he had follow-up appointment with his primary care provider, Priyanka Brown, and relates that she did not change any medication and stated he was doing okay. PCP is leaving the diabetes management up to his mechanical development engineer, Dr. Mykel Barraza. He was able to follow-up and recommendations were updated. An updated hemoglobin A1c order was provided because we are unable to obtain this in a timely manner from the primary care physician's office. this was 8.6%. To follow up with pain management. It is noted he is already on gabapentin, Percocet, and Tylenol. I do not recommend additional narcotic pain medication which she is requesting today. We discussed source of pain is likely from his infection and from pressure applied while walking on this gradual site now that his bone is exposed. Edema management: Medical management per primary care. To reduce salt in diet. Total contact cast will also aide in edema reduction if this considered upon continued foot stability and resolution of infection status. I only recommend reapplication after he has completed his acute deep venous thrombosis treatment. Arterial studies were reviewed. Showing likely adequate perfusion for healing. Right LAI is 0.99 and left 1.18. Right toe brachial index 0.76 and left 0.71. Referral to Dr. Campos for potential venous and arterial intervention was provided today. He went for consultationon 04-11-21. Will recheck duplex to make sure normal posterior tibial flow into the area of the wound. normal prior LAI noted. Host factors: His multiple comorbidities are noted including diabetes and smoking history. Also recommend improvement in nutritional status which involves taking in adequate protein and also focusing on eating 5-10 whole foods daily. Gait abnormality/walking difficulty: I recommend PT and OT intervention with his home health agency. A referral was provided previously. He is at risk for falling. He is fragile and has demonstrated progressive deterioration. All questions answered. He understands below-knee amputation is an option as well if he cannot keep pressure off the site, if pain becomes intolerable, and if he no longer is able to proceed with a comprehensive wound healing plan. He defers at this time. This was discussed at length today. The benefits and indications of a below-knee amputation were reviewed. He would like to consider a referral to a doctor in the same healthcare system he attends in the [facility]. Patient to follow up in 1 week or call sooner if status worsening or if questions. He will follow-up on Friday for total contact cast evaluation and removal. I answered all of his questions. This note was generated with [employer]iar dictation software. It may contain incorrect words, spelling, and punctuation that were not noted in checking the note before signing. He sprained his ankle and had an x-ray performed at [facility] on 11/12/2021 in which there is no acute fracture or dislocation. His ankle is in a maintained rectus position. There is degenerative changes to his calcaneus which is consistent with his previously diagnosed osteomyelitis site. To weight-bear as tolerated with assistive device with the use of a cam walker for protection. I reviewed and discussed his x-rays. 20 minutes was spent on this encounter. This included face to face and non face to face care including preparing for the visit, reviewing the history, performing the exam, counseling and providing education to the patient, family, or caregiver, ordering medications/test/ procedures if indicated as documented, communicating with other healthcare providers, documenting information in the medical record, interpreting / sharing this information when indicated as documented, and care coordination. The medical decision making level is limited based on data including the review of prior external notes, review of a prior test, or ordering a test.
== END 2021-11-15 23:59 | disposition home or self-care (01) ==
LOC: WC 10:15
PROVIDERS: Referring Provider Podiatrist Foot & Ankle Surgery; Visit Provider Podiatrist
DX: E11.621 Type 2 diabetes mellitus with foot ulcer (principal); L97.422 Non-pressure chronic ulcer of left heel and midfoot with fat layer exposed; L97.522 Non-pressure chronic ulcer of other part of left foot with fat layer exposed; M86.172 Other acute osteomyelitis, left ankle and foot; J44.9 Chronic obstructive pulmonary disease, unspecified; E11.42 Type 2 diabetes mellitus with diabetic polyneuropathy; E11.22 Type 2 diabetes mellitus with diabetic chronic kidney disease; E11.69 Type 2 diabetes mellitus with other specified complication; Z79.4 Long term (current) use of insulin; N18.30 Chronic kidney disease, stage 3 unspecified; Z86.718 Personal history of other venous thrombosis and embolism; L03.116 Cellulitis of left lower limb; R60.0 Localized edema; S93.492D Sprain of other ligament of left ankle, subsequent encounter; R53.1 Weakness; R26.2 Difficulty in walking, not elsewhere classified; W19.XXXD Unspecified fall, subsequent encounter; Z79.82 Long term (current) use of aspirin; F17.200 Nicotine dependence, unspecified, uncomplicated; G47.33 Obstructive sleep apnea (adult) (pediatric); E66.9 Obesity, unspecified; I25.2 Old myocardial infarction; Z85.528 Personal history of other malignant neoplasm of kidney; Z79.899 Other long term (current) drug therapy
CPT/HCPCS: 11042; 11044; 29445; 29581; 36415; 83036; 87015; 87070; 87075; 87077; 87101; 87116; 87176; 87186; 87205; 87206; 88305; 88307; 88311; 99213; 99214; G0463

== ENCOUNTER → 2021-11-16 | Outpatient (CLI) | payer MEDICARE, BC, SELFPAY ==
--- NOTE | 2021-11-16 09:49 | ECHOD_ITS ---
Reason For Study: ABN EKG Procedure This was a 2D Doppler, Color Flow transthoracic echocardiogram. The study was technically difficult. Definity deferred due to partial nephrectomy. Exam performed in department. Left Ventricle Normal LV size. Severe concentric left ventricular hypertrophy. Apical false tendon noted. Left ventricular systolic function is normal. The estimated ejection fraction is 65 %. Diastolic function is indeterminate. No regional wall motion abnormalities noted. Right Ventricle Normal RV size. Normal systolic function. Atria The left atrium is mildly enlarged. The right atrium is mildly enlarged. No doppler evidence for ASD. Mitral Valve There is no mitral annular calcification. Normal mitral valve. Trivial mitral valve insufficiency. Tricuspid Valve Normal tricuspid valve. Trivial tricuspid valve insufficiency. Unable to estimate RV systolic pressure/pulmonary artery pressure due to technically difficult study. Aortic Valve Trisinus/trileaflet aortic valve. Normal aortic valve. Pulmonic Valve The pulmonic valve is not well visualized. Great Vessels Mildly dilated aortic root. Pericardium/Pleural No pericardial effusion. MMode/2D Measurements & Calculations LVIDd: 4.8 cm IVSd: 1.7 cm Ao root diam: 4.0 cm LVIDs: 2.8 cm LVPWd: 1.6 cm RVDd: 3.9 cm FS: 41.8 % LAV(MOD-sp4): 53.5 ml LA A4 area: 19.5 cm2 RA A4 area: 23.4 cm2 Doppler Measurements & Calculations MV E max patric: 128.5 cm/sec Med Peak E' Patric: 12.8 cm/sec Ao V2 max: 156.0 cm/sec MV A max patric: 52.8 cm/sec E/E' med: 10.0 Ao max P.7 mmHg MV E/A: 2.4 LV V1 max: 115.0 cm/sec PA V2 max: 128.1 cm/sec LV V1 max P.3 mmHg ECHO/Echo Complete Interpretation Summary The study was technically difficult. Left ventricular systolic function is normal. The estimated ejection fraction is 65 %. Severe concentric left ventricular hypertrophy. Apical false tendon noted. The left atrium is mildly enlarged. The right atrium is mildly enlarged. Trivial mitral valve insufficiency. Trivial tricuspid valve insufficiency. Mildly dilated aortic root. Unable to estimate RV systolic pressure/pulmonary artery pressure due to techni angie difficult study. Diastolic function is indeterminate. Ordering Physician: Zulma Long Referring Physician: Zulma Long Performed By: Gisela Perdomo RCS
== END | disposition home or self-care (01) ==
LOC: CVS 09:47
PROVIDERS: Referring Provider Nurse Practitioner; Visit Provider Nurse Practitioner
DX: R94.31 Abnormal electrocardiogram [ECG] [EKG] (principal)
CPT/HCPCS: 93306

== ENCOUNTER → 2021-11-28 | Outpatient (CLI) | payer MEDICARE, BC, SELFPAY ==
[2021-11-28 13:21] LABS: Mean Corpuscular Hgb 25.5 pg (27.0-32.0); Mean Corpuscular Volume 82.5 fL (80-94); Platelet Count 356 K/mm3 (150-450); RBC Distribution Width SD 47.6 fl (35.1-43.9); Red Blood Count 5.09 M/mm3 (4.6-6.2); White Blood Count 9.9 K/mm3 (4.4-11.0)
[2021-11-28 13:36] LABS: AST(SGOT) 28 U/L (15-37); Alanine Aminotransfer ALT/SGPT 43 U/L (16-61); Albumin, Serum 2.5 g/dL (3.2-5.0); Alkaline Phosphatase 146 U/L (45-117); Anion Gap 1 (5-15); BUN 35 mg/dL (7-18); Bilirubin, Direct 0.09 mg/dL (0.00-0.30); Chloride 105 mmol/L (98-107); Creatinine, Serum 2.06 mg/dL (0.70-1.30); EST Glomerular Filtration Rate 34 mL/min (>60); Est Glom Filt Rate - Afr Amer 42 mL/min (>60); Globulin 5.2 g/dL (2.2-4.2); Glucose 218 mg/dL (74-106); Potassium 4.3 mmol/L (3.5-5.1); Protein, Total 7.7 g/dL (6.4-8.2); Sodium Level 135 mmol/L (136-145)
== END | disposition home or self-care (01) ==
LOC: LAB 11:20
PROVIDERS: Visit Provider Internal Medicine Infectious Disease
DX: M86.9 Osteomyelitis, unspecified (principal)
CPT/HCPCS: 36415; 80048; 80076; 85027

== ENCOUNTER → 2021-12-12 | Outpatient (CLI) | payer MEDICARE, BC, SELFPAY ==
[2021-12-12 12:12] LABS: Absolute Lymphocyte Count 2.62 X10^3/uL (0.83-4.51); Absolute Neutrophil Count 4.7 X10^3/uL (2.0-7.7); Basophil# 0.06 X10^3/uL; Basophil% 0.7 % (0-1); Eosinophil# 0.42 X10^3/uL; Eosinophils% 4.9 % (0-5); Hematocrit 42.1 % (40-54); Hemoglobin 13.1 g/dL (13.0-16.5); Lymphocyte # 2.62 X10^3/ul (0.83-4.51); Lymphocyte % 30.7 % (19-41); Mean Corp Hgb Conc 31.1 g/dL (32-36); Mean Corpuscular Hgb 25.8 pg (27.0-32.0); Mean Platelet Vol. 9.8 fl (6.2-12.0); Monocyte# 0.67 X10^3/uL; Monocyte% 7.9 % (0-10); NRBC Flagged by Analyzer 0 % (0-5); Neutrophil # 4.73 X10^3/uL (2.7-7.7); Neutrophil % 55.4 % (47-70); Platelet Count 194 K/mm3 (150-450); RBC Distribution Width CV 17.8 % (11.6-14.6); RBC Distribution Width SD 51.7 fl (35.1-43.9); Red Blood Count 5.07 M/mm3 (4.6-6.2); White Blood Count 8.5 K/mm3 (4.4-11.0)
[2021-12-12 12:52] LABS: AST(SGOT) 19 U/L (15-37); Alanine Aminotransfer ALT/SGPT 31 U/L (16-61); Albumin, Serum 2.6 g/dL (3.2-5.0); Alkaline Phosphatase 124 U/L (45-117); Anion Gap 1 (5-15); BUN 27 mg/dL (7-18); BUN/Creat Ratio 12.9 RATIO (10-20); Bilirubin, Direct 0.14 mg/dL (0.00-0.30); Calcium,Total 8.8 mg/dL (8.5-10.1); Chloride 105 mmol/L (98-107); Creatinine, Serum 2.09 mg/dL (0.70-1.30); EST Glomerular Filtration Rate 34 mL/min (>60); Est Glom Filt Rate - Afr Amer 41 mL/min (>60); Globulin 4.9 g/dL (2.2-4.2); Glucose 175 mg/dL (74-106); Potassium 4.4 mmol/L (3.5-5.1); Protein, Total 7.5 g/dL (6.4-8.2); Sodium Level 137 mmol/L (136-145)
== END | disposition home or self-care (01) ==
LOC: LAB 11:52
PROVIDERS: Visit Provider Internal Medicine Infectious Disease
DX: M86.9 Osteomyelitis, unspecified (principal); E11.621 Type 2 diabetes mellitus with foot ulcer; L97.422 Non-pressure chronic ulcer of left heel and midfoot with fat layer exposed; L97.524 Non-pressure chronic ulcer of other part of left foot with necrosis of bone; E11.42 Type 2 diabetes mellitus with diabetic polyneuropathy; E11.69 Type 2 diabetes mellitus with other specified complication; I82.409 Acute embolism and thrombosis of unspecified deep veins of unspecified lower extremity; R60.0 Localized edema; L03.116 Cellulitis of left lower limb; R26.2 Difficulty in walking, not elsewhere classified; M79.672 Pain in left foot; Z72.0 Tobacco use
CPT/HCPCS: 11042; 36415; 80048; 80076; 82962; 85025; 99183; G0277

== ENCOUNTER 2021-12-14 08:00 | Outpatient (RCR) | payer MEDICARE, BC, SELFPAY ==
[2021-11-16 00:28] VITALS: BP 127/69; PULSE 60; RESP 16; TEMP 36.3; BMI 33.7
[2021-11-21 10:34] VITALS: BP 116/61; PULSE 66; RESP 18; TEMP 36.4; BMI 33.7
--- NOTE | 2021-11-21 11:44 | PCM.WC.PN ---
History of Present Illness Date of Service: 11/21/21 Chief Complaint: left heel and arch ulcers History of Wound: Patient presents for chronic non healing wound to left plantar foot (heel and arch). A limb and life-threatening infection which required emergent surgical intervention on 05-29-2021. He has been demonstrating improvement with total contact cast applications however had recent deteriorization and now has exposed bone to the heel now with additional osteomyelitis. A culture demonstrated multi organism growth. 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 Raphael. He denies fever, chill, nausea, vomiting, pain, odor, redness. He is keeping weight off of his foot he reports. He has been taking doxycycline and Augmentin as prescribed. He is in the process of getting cleared for hyperbaric oxygen therapy treatment for osteomyelitis and Acevedo grade 3. He is still going through the cardiac clearance process because he needs to reschedule his echo due to inability to travel (electrical power loss last week). He ultimately wants to proceed forward with hyperbaric oxygen therapy and antibiotics today however admits he is considering a below the knee amputation if he does not start seeing improvement and reduction in pain in the near future. He is also following up with pain management. It is noted he is having continued significant pain now that he has more bone exposed and free floating today. He is already noted to be under the care of a electrostatic painter and is taking Percocet, Tylenol, and gabapentin. It is also noted he was diagnosed with a deep venous thrombosis and was started on Eliquis. His leg is slightly reduced edema compared to last week. He saw infectious disease specialist again recently and he continues to take antibiotics as advised; doxycycline, Augmentin and ciprofloxacin. He had his echocardiogram completed last Friday and would like to go over the results. This was in preparation to getting cleared for hyperbaric oxygen therapy. Progress of Wound: Healed arch left Improved heel left Objective Data Objective Data Vital Signs: Vital Signs Temp Pulse Resp BP 97.5 F L 66 18 116/61 11/21/21 10:34 11/21/21 10:34 11/21/21 10:34 11/21/21 10:34 Body Mass Index (BMI) 33.7 Physical Exam Narrative Const alert and no apparent distress General Appearance: cooperative and comfortable Extremity There is diffuse left foot/ankle and leg swelling. Left foot s/p debridement to arch and heel, tissues are healthy and viable, granular. Healed arch with full epithelialization. Positive probe to bone continued without loose fragments today. The bone is hard. There is peripheral granulation tissue and minimal peripheral callus also. There is no streaking or odor, compartments remain soft to palpate, there is no fluctuance or bogginess on palpation, no drainage, no visible abscess, no cellulitis, no blistering present. Hematogenous / serosanguineous drainage only upon debridement. Periwound moisture and maceration has resolved. Lack of normal epicritic sensation pathic status via light touch. Pain with manipulation and heel compression consistent prior visits normal capillary refill, no acute ischemic skin changes noted, normal temperature bilateral. Const oriented x3 General Appearance: cooperative Extremity Left Lower Extremity: lower leg Skin Skin Narrative: Wounds left heel osteomyelitis Wounds: wounds noted Wound Narrative: Neuro Neuro Narrative: Debridement Note Debridement Note Wound debrided: left heel Laterality: Left Wound Grade/Stage: 3 Type of Debridement: Excisional debridement Anesthesia Used: 4% Lidocaine Solution Depth: in the subcutaneous layer, to bone (heel) and - (misonic ultrasound debridement) Percentage of wound debrided: 100 Instrument Used: #15 blade Tissue Removed: fibrous, devitalized subcutaneous, biofilm, slough Severity: Fat Layer Exposed Amount of bleeding with debridement: Mild Bleeding Controlled with: Pressure Patient tolerated procedure: Patient tolerated procedure well Post-Debridement Measurements and Additional Note: Post-Debridement Measurements/Treatment - Nurse 1 - General Ulcer Assessment Start: 11/21/21 10:34 Freq: Status: Active Protocol: .LOWEXAnastasia Activity Type Activity Date Activity User E-sign Co-sign Detail Recorded Client Recorded Date Recorded By Document 11/21/21 10:34 [id number] 11/21/21 10:47 11/21/21 10:34 - Today's Visit Information Type of service Follow-up Visit (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/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 ) Arrival Mode Wheelchair Transfer Assistance None Patient Identification Verified (Name & Yes ) Patient Requires Transmission-Based No Precautions Height and Weight Body Mass Index (BMI) 33.7 BMI Classification Obese Vital Signs Temperature (97.8 F-99.1 F) 97.5 F L Temperature Source Temporal Pulse Rate (60-100) 66 Pulse Location Monitor Respiratory Rate (12-18) 18 Respiratory rate source Observation Blood Pressure (90/60-120/80) 116/61 Blood Pressure Mean (mm Hg) 79 Source Monitor Position Sitting Blood Pressure Location Left Arm History Since Last Visit- (Skip if this is Patient's initial visit) Have you changed medications since your No last visit? Any new allergies or adverse reactions No Had a fall/change in ADL's that may No increase risk of falls Signs or symptoms of abuse and/or No neglect since last visit Have you been in the hospital since your No last visit? Has dressing in place as prescribed Yes Has compression in place as prescribed Yes Has offloadiing in place as prescribed Yes Experienced any changes in pain level or No management Left Footwear Multipodus Splint/Boot Right Footwear Regular Shoe Pain Scale: 0-10 Numeric Is Patient Pain Free? No LLE -Description Aching -Intensity 9 -Duration (hours) Acute -Pain Behavior Guarding, Irritability, Withdrawal from Touch -Pain Aggravating Factors ADL's -Alleviating Factors/Interventions Medication -Effectiveness of Alleviating Factor/ Moderately Intervention effective WC - Nurse 1 - General Ulcer Measurement Start: 11/21/21 10:34 Freq: Status: Active Protocol: Activity Type Activity Date Activity User E-sign Co-sign Detail Recorded Client Recorded Date Recorded By Document 11/21/21 10:34 ALEJANDRO [id number] 11/21/21 10:47 RB 11/21/21 10:34 Wound Center Nurse 1 4-left plantar arch -Combined with other wound No -Current Size (cm) - Length 0.1 -Current Size (cm) - Width 0.1 -Current Size (cm) - Depth 0.1 -Total Square Cm 0.01 -Tunneling No -Undermining/Tunneling No -Circular Undermining No -Exudate Amt Small -Exudate Type Serosanguineous -Wound Margin Distinct, Outline Attached -Granulation Amt Medium (34-66%) -Granulation Quality [place] -Slough/Fibrin Yes -Necrosis Amt Small (1-33%) -Necrotic Tissue Type Adherent Slough -Structure Exposed N/A -Texture (Margaret-wound Skin Appearance) Assessed, Scarring -Moisture (Margaret-wound Skin Appearance) Assessed -Color (Margaret-wound Skin Appearance) Assessed -Temperature (Margaret-wound Skin No Abnormality Appearance) (Pt Warm) -Tenderness on Palpation (Margaret-wound No Skin Appearance) -Ulcer Cleansing Wound Cleanser -Foul Odor after Cleansing No -Anesthetic Used 5% Lidocaine Gel #1 left heel cluster -Combined with other wound No -Current Size (cm) - Length 3.5 -Current Size (cm) - Width 3.3 -Current Size (cm) - Depth 0.6 -Total Square Cm 11.55 -Tunneling No -Undermining/Tunneling No -Circular Undermining No -Exudate Amt Large -Exudate Type Serosanguineous -Wound Margin Thickened -Granulation Amt Small (1-33%) -Granulation Quality Pale -Slough/Fibrin Yes -Necrosis Amt Large (67-100%) -Necrotic Tissue Type Adherent Slough -Structure Exposed Bone -Texture (Margaret-wound Skin Appearance) Callus -Moisture (Margaret-wound Skin Appearance) Assessed -Color (Margaret-wound Skin Appearance) Assessed -Temperature (Margaret-wound Skin No Abnormality Appearance) (Pt Warm) -Tenderness on Palpation (Margaret-wound No Skin Appearance) -Ulcer Cleansing Wound Cleanser -Foul Odor after Cleansing No -Anesthetic Used 5% Lidocaine Gel Lower Limb Edema Present Yes Left Calf (cm) 49 Left Ankle (cm) 30.5 WC - Nurse 2 - General Ulcer CM Notes Start: 11/21/21 10:34 Freq: Status: Active Protocol: Activity Type Activity Date Activity User E-sign Co-sign Detail Recorded Client Recorded Date Recorded By Document 11/21/21 11:14 JAY [id number] 11/21/21 11:16 JAY 11/21/21 11:14 Wound Center Nurse 2 4-left plantar arch -Procedure Performed No -Wound/Ulcer Outcome Healed- Epithelialized #1 left heel cluster -Time 10:53 -Correct Patient Yes -Correct Side, Site, Position Yes -Correct Procedure Yes -Procedure Performed Yes -Type of Procedure Debridement -Clinical Debridement Subcutaneous -Tissue Removed Subcutaneous -Post Debridement (cm) - Length 3.5 -Post Debridement (cm) - Width 3.3 -Post Debridement (cm) - Depth 0.6 -Total Square (Post) (cm) 11.55 -Area of Debridement (cm) - Length 3.5 -Area of Debridement (cm) - Width 3.3 -Total Square (Area) (cm) 11.55 -Tunneling No -Undermining/Tunneling No -Circular Undermining No -Wound/Ulcer Outcome Not Healed -Ulcer Cleansing Rinsed/ Irrigated with Saline -Foul Odor after Cleansing No -Bioengineered Tissue No -Bleeding Controlled with Pressure -Treatment Response Procedure Tolerated Well -Debridement - Subq, 1st 20sq cm Yes Pain Scale: 0-10 Numeric Is Patient Pain Free? Yes - Nurse 3 - General Ulcer D/C NN Start: 11/21/21 10:34 Freq: Status: Active Protocol: Activity Type Activity Date Activity User E-sign Co-sign Detail Recorded Client Recorded Date Recorded By Document 11/21/21 11:18 [facility] [id number] 11/21/21 11:19 [facility] 11/21/21 11:18 Wound Care Nurse 3 #1 left heel cluster -Ulcer Cleansing Rinsed/ Irrigated with Saline -Foul Odor after Cleansing No -Primary Dressing Applied Aquacel AG 4x4 -Primary Dressing Covered/Secured with Dry Gauze & Roll Gauze, Secured with Tape -Other Covering HEEL HAT -Aquacel AG 4x4 1 Left -Compression Wrap Kevin Wrap Treatment Response Procedure Tolerated Well Pain Scale: 0-10 Numeric Is Patient Pain Free? Yes - Visit Discharge Discharge Condition Stable Ambulatory Status Wheelchair Transportation Private [facility] Facility Type Home Health Assessment/Plan Assessment/Plan (1) Non-pressure chronic ulcer of left heel and midfoot with fat layer exposed: CODE(S): L97.422 - Non-pressure chronic ulcer of left heel and midfoot with fat layer exposed (2) Localized edema: CODE(S): R60.0 - Localized edema (3) Diabetes mellitus: CODE(S): E11.9 - Type 2 diabetes mellitus without complications (4) Type 2 diabetes mellitus with diabetic polyneuropathy: CODE(S): E11.42 - Type 2 diabetes mellitus with diabetic polyneuropathy QUALIFIERS: Diabetes mellitus [facility] insulin use: with [facility] use Qualified Code(s): E11.42 - Type 2 diabetes mellitus with diabetic polyneuropathy; 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 (5) Diabetic foot ulcer: CODE(S): E11.621 - Type 2 diabetes mellitus with foot ulcer; L97.509 - Non-pressure chronic ulcer of other part of unspecified foot with unspecified severity QUALIFIERS: Diabetic foot ulcer location: heel Diabetes mellitus type: type 2 Laterality: left Non-pressure ulcer stage: with fat layer exposed Qualified Code(s): E11.621 - Type 2 diabetes mellitus with foot ulcer; L97.422 - Non-pressure chronic ulcer of left heel and midfoot with fat layer exposed (6) Tobacco abuse: CODE(S): Z72.0 - Tobacco use (7) Cellulitis of left lower limb: CODE(S): L03.116 - Cellulitis of left lower limb (8) Chronic ulcer of left foot with necrosis of bone: CODE(S): L97.524 - Non-pressure chronic ulcer of other part of left foot with necrosis of bone (9) Foot osteomyelitis: CODE(S): M86.9 - Osteomyelitis, unspecified QUALIFIERS: Osteomyelitis type: other acute Laterality: left Qualified Code(s): M86.172 - Other acute osteomyelitis, left ankle and foot (10) Difficulty in walking: CODE(S): R26.2 - Difficulty in walking, not elsewhere classified (11) Left foot pain: CODE(S): M79.672 - Pain in left foot (12) DVT (deep venous thrombosis): CODE(S): I82.409 - Acute embolism and thrombosis of unspecified deep veins of unspecified lower extremity (13) High ankle sprain of left lower extremity: CODE(S): S93.492A - Sprain of other ligament of left ankle, initial encounter PLAN: Plan Patient seen and examined. I reviewed and discussed his case. Debridement was performed as noted in the clinical nursing panel. Dressing recommendation: Applied today: [employer] Friday, Friday, Friday. This was also washed with soap and water. Offloading: To maintain a strict nonweightbearing status to the ulcer to the foot. To use assistive walking device as well. He has a cam walker. Infection management: This culture results were reviewed with MRSA, Enterobacter, Enterococcus, and corynebacteria. To continue Doxy, Augmentin and Cipro per infectious disease recommendations which are appreciated. Lab trends will be followed. He has osteomyelitis which was confirmed with bone biopsy sent to microbiology and pathology. Advance wound options: He has a status change now with new diagnosis of osteomyelitis. I recommend hyperbaric oxygen therapy if he is medically cleared to undergo such treatment. He reports he is available to come in 5 days a week for couple hours each day and he has anticipated reliable transportation. He is in the process of getting cleared for hyperbaric oxygen therapy and will start soon. He did have to have some additional cardiac tests performed to ensure safety. He did also see ENT as well. I recommend he proceed as tolerated and as planned to optimize his healing potential. He has an echocardiogram was completed and his EF is 65%. Apparel Embroidery Digitizer clearance was recommended prior to proceeding hyperbarics and a referral was provided to [facility]. Patient relates he had follow-up appointment with his primary care provider, Priyanka Brown, and relates that she did not change any medication and stated he was doing okay. PCP is leaving the diabetes management up to his technical solutions director, Dr. Mykel Barraza. He was able to follow-up and recommendations were updated. An updated hemoglobin A1c order was provided because we are unable to obtain this in a timely manner from the primary care physician's office. this was 8.6%. To follow up with pain management. It is noted he is already on gabapentin, Percocet, and Tylenol. I do not recommend additional narcotic pain medication which she is requesting today. We discussed source of pain is likely from his infection and from pressure applied while walking on this gradual site now that his bone is exposed. Edema management: Medical management per primary care. To reduce salt in diet. Total contact cast will also aide in edema reduction if this considered upon continued foot stability and resolution of infection status. I only recommend reapplication after he has completed his acute deep venous thrombosis treatment. Arterial studies were reviewed. Showing likely adequate perfusion for healing. Right LAI is 0.99 and left 1.18. Right toe brachial index 0.76 and left 0.71. Referral to Dr. Campos for potential venous and arterial intervention was provided today. He went for consultationon 04-11-21. Will recheck duplex to make sure normal posterior tibial flow into the area of the wound. normal prior LAI noted. Host factors: His multiple comorbidities are noted including diabetes and smoking history. Also recommend improvement in nutritional status which involves taking in adequate protein and also focusing on eating 5-10 whole foods daily. Gait abnormality/walking difficulty: I recommend PT and OT intervention with his home health agency. A referral was provided previously. He is at risk for falling. He is fragile and has demonstrated progressive deterioration. All questions answered. He understands below-knee amputation is an option as well if he cannot keep pressure off the site, if pain becomes intolerable, and if he no longer is able to proceed with a comprehensive wound healing plan. He defers at this time. This was discussed at length today. The benefits and indications of a below-knee amputation were reviewed. He would like to consider a referral to a doctor in the same healthcare system he attends in the [facility]. Patient to follow up in 1 week or call sooner if status worsening or if questions. He will follow-up on Friday for total contact cast evaluation and removal. I answered all of his questions. This note was generated with [employer] dictation software. It may contain incorrect words, spelling, and punctuation that were not noted in checking the note before signing.
[2021-11-28 10:20] VITALS: BP 127/61; PULSE 65; RESP 18; TEMP 36.3; BMI 33.7
--- NOTE | 2021-11-28 19:40 | PN.PCM_ITS ---
History of Present Illness Date of Service: 11/28/21 Chief Complaint: left heel History of Wound: Patient presents for chronic non healing wound to left plantar foot (heel, and recently healed ulcer at arch). A limb and life-threatening infection which required emergent surgical intervention on 05-29-2021. He has been demonstrating improvement with total contact cast applications however had recent deteriorization and now has exposed bone to the heel now with additional osteomyelitis. A culture demonstrated multi organism growth. 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 Raphael. He denies fever, chill, nausea, vomiting, pain, odor, redness. He is keeping weight off of his foot he reports. He has been taking doxycycline and Augmentin as prescribed. He is in the process of getting cleared for hyperbaric oxygen therapy treatment for osteomyelitis and Acevedo grade 3; this has not been obtained and reviewed with a fisherman helper; echo was recently comleted with EF 65%. He saw infectious disease specialist again recently and he continues to take antibiotics as advised; doxycycline, Augmentin and ciprofloxacin. Progress of Wound: Improved heel left, but bone fragment now exposed again today Objective Data Objective Data Vital Signs: Vital Signs Temp Pulse Resp BP 97.4 F L 65 18 127/61 H 11/28/21 10:20 11/28/21 10:20 11/28/21 10:20 11/28/21 10:20 Body Mass Index (BMI) 33.7 Physical Exam Narrative Const alert and no apparent distress General Appearance: cooperative and comfortable Extremity There is diffuse left foot/ankle and leg swelling. Left foot s/p debridement to arch and heel, tissues are healthy and viable, granular. Healed arch with full epithelialization. Positive probe to bone continued without loose fragments today. The bone is hard. There is peripheral granulation tissue and minimal pe ripheral callus also. There is no streaking or odor, compartments remain soft to palpate, there is no fluctuance or bogginess on palpation, no drainage, no visible abscess, no cellulitis, no blistering present. Hematogenous / serosanguineous drainage only upon debridement. Periwound moisture and maceration has resolved. Lack of normal epicritic sensation pathic status via light touch. Pain with manipulation and heel compression consistent prior visits normal capillary refill, no acute ischemic skin changes noted, normal temperature bilateral. Const oriented x3 General Appearance: cooperative Extremity Left Lower Extremity: lower leg Skin Skin Narrative: Wounds left heel osteomyelitis Wounds: wounds noted Wound Narrative: Neuro Neuro Narrative: Debridement Note Debridement Note Wound debrided: left heel Laterality: Left Wound Grade/Stage: 3 Type of Debridement: Excisional debridement Anesthesia Used: 4% Lidocaine Solution Depth: in the subcutaneous layer, to bone (heel) and - (misonic ultrasound debridement) Percentage of wound debrided: 100 Instrument Used: #15 blade Tissue Removed: fibrous, devitalized subcutaneous, biofilm, slough Severity: Fat Layer Exposed Amount of bleeding with debridement: Mild Bleeding Controlled with: Pressure Patient tolerated procedure: Patient tolerated procedure well Post-Debridement Measurements and Additional Note: Post-Debridement Measurements/Treatment - Nurse 1 - General Ulcer Assessment Start: 11/21/21 10:34 Freq: Status: Active Protocol: EVELYN Activity Type Activity Date Activity User E-sign Co-sign Detail Recorded Client Recorded Date Recorded By Document 11/21/21 10:34 RB [id number] 11/21/21 10:47 RB Document 11/28/21 10:20 DANIEL [id number] 11/28/21 10:30 11/21/21 11/28/21 10:34 10:20 - Today's Visit Information Type of service Follow-up Visit Follow-up Visit (Physician/ASSOCIATE AGENT INSURANCE SALES (Physician/ASSOCIATE AGENT [employer]URANCE SALES ) ) Arrival Mode Wheelchair Wheelchair Transfer Assistance None Manual Patient Identification Verified (Name & Yes Yes ) Patient Requires Transmission-Based No No Precautions Finger Stick Blood Sugar(mg/dl) (if 141 indicated): Blood Sugar Stated by Patient Height and Weight Body Mass Index (BMI) 33.7 33.7 BMI Classification Obese Obese Vital Signs Temperature (97.8 F-99.1 F) 97.5 F L 97.4 F L Temperature Source Temporal Temporal Pulse Rate (60-100) 66 65 Pulse Location Monitor Monitor Respiratory Rate (12-18) 18 18 Respiratory rate source Observation Observation Blood Pressure (90/60-120/80) 116/61 127/61 H Blood Pressure Mean (mm Hg) 79 83 Source Monitor Monitor Position Sitting Semi-Fowlers Blood Pressure Location Left Arm Left Arm History Since Last Visit- (Skip if this is Patient's initial visit) Have you changed medications since your No No last visit? Any new allergies or adverse reactions No No Had a fall/change in ADL's that may No No increase risk of falls Signs or symptoms of abuse and/or No No neglect since last visit Have you been in the hospital since your No No last visit? Has dressing in place as prescribed Yes Yes Has compression in place as prescribed Yes Yes Has offloadiing in place as prescribed Yes N/A Experienced any changes in pain level or No No management Left Footwear Multipodus Surgical Shoe Splint/Boot with pressure relief insole Right Footwear Regular Shoe Regular Shoe Pain Scale: 0-10 Numeric Is Patient Pain Free? No Yes LLE -Description Aching -Intensity 9 -Duration (hours) Acute -Pain Behavior Guarding, Irritability, Withdrawal from Touch -Pain Aggravating Factors ADL's -Alleviating Factors/Interventions Medication -Effectiveness of Alleviating Factor/ Moderately Intervention effective WC - Nurse 1 - General Ulcer Measurement Start: 11/21/21 10:34 Freq: Status: Active Protocol: Activity Type Activity Date Activity User E-sign Co-sign Detail Recorded Client Recorded Date Recorded By Document 11/21/21 10:34 RB [id number] 11/21/21 10:47 RB Document 11/28/21 10:20 [id number] 11/28/21 10:30 11/21/21 11/28/21 10:34 10:20 Wound Center Nurse 1 4-left plantar arch -Combined with other wound No -Current Size (cm) - Length 0.1 -Current Size (cm) - Width 0.1 -Current Size (cm) - Depth 0.1 -Total Square Cm 0.01 -Tunneling No -Undermining/Tunneling No -Circular Undermining No -Exudate Amt Small -Exudate Type Serosanguineous -Wound Margin Distinct, Outline Attached -Granulation Amt Medium (34-66%) -Granulation Quality [place] -Slough/Fibrin Yes -Necrosis Amt Small (1-33%) -Necrotic Tissue Type Adherent Slough -Structure Exposed N/A -Texture (Margaret-wound Skin Appearance) Assessed, Scarring -Moisture (Margaret-wound Skin Appearance) Assessed -Color (Margaret-wound Skin Appearance) Assessed -Temperature (Margaret-wound Skin No Abnormality Appearance) (Pt Warm) -Tenderness on Palpation (Margaret-wound No Skin Appearance) -Ulcer Cleansing Wound Cleanser -Foul Odor after Cleansing No -Anesthetic Used 5% Lidocaine Gel #1 left heel cluster -Combined with other wound No No -Current Size (cm) - Length 3.5 3.5 -Current Size (cm) - Width 3.3 3.2 -Current Size (cm) - Depth 0.6 0.5 -Total Square Cm 11.55 11.20 -Photo Taken Yes -Epithelialization None Present -Tunneling No No -Undermining/Tunneling No No -Circular Undermining No No -Exudate Amt Large Large -Exudate Type Serosanguineous Serosanguineous -Wound Margin Thickened Flat & Intact -Granulation Amt Small (1-33%) Small (1-33%) -Granulation Quality Pale Pale -Slough/Fibrin Yes Yes -Necrosis Amt Large (67-100%) Medium (34-66%) -Necrotic Tissue Type Adherent Slough Adherent Slough -Structure Exposed Bone Bone,N/A -Texture (Margaret-wound Skin Appearance) Callus Assessed, Localized Edema -Moisture (Margaret-wound Skin Appearance) Assessed Assessed, Maceration -Color (Margaret-wound Skin Appearance) Assessed Assessed -Temperature (Margaret-wound Skin No Abnormality No Abnormality Appearance) (Pt Warm) (Pt Warm) -Tenderness on Palpation (Margaret-wound No No Skin Appearance) -Ulcer Cleansing Wound Cleanser Soap and Water -Foul Odor after Cleansing No No -Anesthetic Used 5% Lidocaine 5% Lidocaine Gel Gel Lower Limb Edema Present Yes Yes Left Calf (cm) 49 45.0 Left Ankle (cm) 30.5 27.8 WC - Nurse 2 - General Ulcer CM Notes Start: 11/21/21 10:34 Freq: Status: Active Protocol: Activity Type Activity Date Activity User E-sign Co-sign Detail Recorded Client Recorded Date Recorded By Document 11/21/21 11:14 PL [id number] 11/21/21 11:16 Document 11/28/21 10:36 [id number] 11/28/21 10:42 DANIEL 11/21/21 11/28/21 11:14 10:36 Wound Center Nurse 2 4-left plantar arch -Procedure Performed No -Wound/Ulcer Outcome Healed- Epithelialized #1 left heel cluster -Time 10:53 10:37 -Correct Patient Yes Yes -Correct Side, Site, Position Yes Yes -Correct Procedure Yes Yes -Procedure Performed Yes Yes -Type of Procedure Debridement Debridement -Clinical Debridement Subcutaneous Bone -Tissue Removed Subcutaneous Non-viable tissue -Post Debridement (cm) - Length 3.5 3.5 -Post Debridement (cm) - Width 3.3 3.3 -Post Debridement (cm) - Depth 0.6 1.0 -Total Square (Post) (cm) 11 11.55 -Area of Debridement (cm) - Length 3.5 3.5 -Area of Debridement (cm) - Width 3.3 3.3 -Total Square (Area) (cm) 11 11.55 -Tunneling No No -Undermining/Tunneling No No -Circular Undermining No No -Wound/Ulcer Outcome Not Healed Not Healed -Ulcer Cleansing Rinsed/ Rinsed/ Irrigated with Irrigated with Saline Saline -Foul Odor after Cleansing No No -Bioengineered Tissue No No -Bleeding Controlled with Pressure Pressure,Gel Form -Treatment Response Procedure Procedure Tolerated Well Tolerated Well -Offloading Yes -Type of Offloading Camwalker -Debridement - Subq, 1st 20sq cm Yes -Debridement - Bone, 1st 20sq cm Yes Pain Scale: 0-10 Numeric Is Patient Pain Free? Yes Yes - Nurse 3 - General Ulcer D/C NN Start: 11/21/21 10:34 Freq: Status: Active Protocol: Activity Type Activity Date Activity User E-sign Co-sign Detail Recorded Client Recorded Date Recorded By Document 11/21/21 11:18 [facility] [id number] 11/21/21 11:19 [facility] Document 11/28/21 10:48 DL [id number] 11/28/21 10:52 DL 11/21/21 11/28/21 11:18 10:48 Wound Care Nurse 3 #1 left heel cluster -Ulcer Cleansing Rinsed/ Rinsed/ Irrigated with Irrigated with Saline Saline -Foul Odor after Cleansing No No -Primary Dressing Applied Aquacel AG 4x4 -Other Dressing Surgifoam today -Primary Dressing Covered/Secured with Dry Gauze & Dry Gauze & Roll Gauze, Roll Gauze, Secured with Secured with Tape Tape -Other Covering HEEL HAT -Aquacel AG 4x4 1 Left -Compression Wrap Kevin Wrap Treatment Response Procedure Procedure Tolerated Well Tolerated Well Pain Scale: 0-10 Numeric Is Patient Pain Free? Yes Yes - Visit Discharge Discharge Condition Stable Stable Ambulatory Status Wheelchair Wheelchair Transportation Private Auto Private Auto Notes: Pt to leave [facility] till Friday and [facility]eto [facility] Facility Type Home Health Home Health Orders Sent Yes Assessment/Plan Assessment/Plan (1) Non-pressure chronic ulcer of left heel and midfoot with fat layer exposed: CODE(S): L97.422 - Non-pressure chronic ulcer of left heel and midfoot with fat layer exposed (2) Localized edema: CODE(S): R60.0 - Localized edema (3) Diabetes mellitus: CODE(S): E11.9 - Type 2 diabetes mellitus without complications (4) Type 2 diabetes mellitus with diabetic polyneuropathy: CODE(S): E11.42 - Type 2 diabetes mellitus with diabetic polyneuropathy QUALIFIERS: Diabetes mellitus custodial insulin use: with intermediate manager use Qualified Code(s): E11.42 - Type 2 diabetes mellitus with diabetic po lyneuropathy; Z79.4 - snf (current) use of insulin (5) Diabetic foot ulcer: CODE(S): E11.621 - Type 2 diabetes mellitus with foot ulcer; L97.509 - Non-pressure chronic ulcer of other part of unspecified foot with unspecified severity QUALIFIERS: Diabetic foot ulcer location: heel Diabetes mellitus type: type 2 Laterality: left Non-pressure ulcer stage: with fat layer exposed Qualified Code(s): E11.621 - Type 2 diabetes mellitus with foot ulcer; L97.422 - Non-pressure chronic ulcer of left heel and midfoot with fat layer exposed (6) Tobacco abuse: CODE(S): Z72.0 - Tobacco use (7) Cellulitis of left lower limb: CODE(S): L03.116 - Cellulitis of left lower limb (8) Chronic ulcer of left foot with necrosis of bone: CODE(S): L97.524 - Non-pressure chronic ulcer of other part of left foot with necrosis of bone (9) Foot osteomyelitis: CODE(S): M86.9 - Osteomyelitis, unspecified QUALIFIERS: Osteomyelitis type: other acute Laterality: left Qualified Code(s): M86.172 - Other acute osteomyelitis, left ankle and foot (10) Difficulty in walking: CODE(S): R26.2 - Difficulty in walking, not elsewhere classified (11) Left foot pain: CODE(S): M79.672 - Pain in left foot (12) DVT (deep venous thrombosis): CODE(S): I82.409 - Acute embolism and thrombosis of unspecified deep veins of unspecified lower extremity PLAN: Plan Patient seen and examined. I reviewed and discussed his case. Debridement was performed as noted in the clinical nursing panel. Dressing recommendation: Applied today: Aquacel Ag Friday, Friday, Friday. This was also washed with soap and water. Offloading: To maintain a strict nonweightbearing status to the ulcer to the foot. To use assistive walking device as well. He has a cam walker. Infection management: This culture results were reviewed with MRSA, Enterobacter, Enterococcus, and corynebacteria. To continue Doxy, Augmentin and Cipro per infectious disease recommendations which are appreciated. Lab trends will be followed. He has osteomyelitis which was confirmed with bone biopsy sent to microbiology and pathology. Advance wound options: He has a status change now with new diagnosis of osteomyelitis. I recommend hyperbaric oxygen therapy if he is medically cleared to undergo such treatment. He reports he is available to come in 5 days a week for couple hours each day and he has anticipated reliable transportation. He is in the process of getting cleared for hyperbaric oxygen therapy and will start soon. He did have to have some additional cardiac tests performed to ensure safety. He did also see ENT as well. I recommend he proceed as tolerated and as planned to optimize his healing potential. He has an echocardiogram was completed and his EF is 65%. Cookie Mixer Helper clearance was obtained and he is scheduled to start. Patient relates he had follow-up appointment with his primary care provider, Priyanka Brown, and relates that she did not change any medication and stated he was doing okay. PCP is leaving the diabetes management up to his label stitcher, Dr. Mykel Barraza. He was able to follow-up and recommendations were updated. An updated hemoglobin A1c order was provided because we are unable to obtain this in a timely manner from the primary care physician's office. this was 8.6%. To follow up with pain management. It is noted he is already on gabapentin, Percocet, and Tylenol. I do not recommend additional narcotic pain medication which she is requesting today. We discussed source of pain is likely from his infection and from pressure applied while walking on this gradual site now that his bone is exposed. Edema management: Medical management per primary care. To reduce salt in diet. Total contact cast will also aide in edema reduction if this considered upon continued foot stability and resolution of infection status. I only recommend reapplication after he has completed his acute deep venous thrombosis treatment. Arterial studies were reviewed. Showing likely adequate perfusion for healing. Right LAI is 0.99 and left 1.18. Right toe brachial index 0.76 and left 0.71. Referral to Dr. Campos for potential venous and arterial intervention was provided today. He went for consultationon 04-11-21. Will recheck duplex to make sure normal posterior tibial flow into the area of the wound. normal prior LAI noted. Host factors: His multiple comorbidities are noted including diabetes and smoking history. Also recommend improvement in nutritional status which involves taking in adequate protein and also focusing on eating 5-10 whole foods daily. Gait abnormality/walking difficulty: I recommend PT and OT intervention with his home health agency. A referral was provided previously. He is at risk for falling. He is fragile and has demonstrated progressive deterioration. All questions answered. He understands below-knee amputation is an option as well if he cannot keep pressure off the site, if pain becomes intolerable, and if he no longer is able to proceed with a comprehensive wound healing plan. He defers at this time. This was discussed at length today. The benefits and indications of a below-knee amputation were reviewed. He would like to consider a referral to a doctor in the same healthcare system he attends in the [facility]. Patient to follow up in 1 week or call sooner if status worsening or if questions. He will follow-up on Friday for total contact cast evaluation and removal. I answered all of his questions. This note was generated with [employer] dictation software. It may contain incorrect words, spelling, and punctuation that were not noted in checking the note before signing.
[2021-11-30 08:20] LABS: Bedside Glucose 92 mg/dL (74-106)
[2021-11-30 08:35] LABS: Bedside Glucose 113 mg/dL (74-106)
--- NOTE | 2021-11-30 09:02 | WC ---
Pt was supposed to start HBO today however blood sugars was to low at 92. Glucera given and 15 minutes waited but blood sugars didn't come up to or above 131. PT educated on what to eat prior to dives, will reattempt on Friday.
[2021-12-03 08:20] LABS: Bedside Glucose 272 mg/dL (74-106)
--- NOTE | 2021-12-03 11:34 | WC ---
Pt could not dive d/t blood sugar of 272.Pt got upset he couldnt dive and stated he wasnt going to continue to attempt to dive if he wasnt successful next time. Explained to pt this is normal at begining of treatment until he gets a good routine.
[2021-12-05 13:48] VITALS: BP 122/70; PULSE 78; RESP 16; TEMP 36.9; BMI 33.7
--- NOTE | 2021-12-05 15:53 | PCM.WC.PN ---
History of Present Illness Date of Service: 12/05/21 Chief Complaint: left heel History of Wound: Patient presents for chronic non healing wound to left plantar foot (heel, and recently healed ulcer at arch). A limb and life-threatening infection which required emergent surgical intervention on 05-29-2021. He has been demonstrating improvement with total contact cast applications however had recent deteriorization and now has exposed bone to the heel now with additional osteomyelitis. A culture demonstrated multi organism growth. 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 Raphael. He denies fever, chill, nausea, vomiting, pain, odor, redness. He is keeping weight off of his foot he reports. He has been cleared for hyperbaric oxygen therapy treatment for osteomyelitis and Acevedo grade 3 by medical physician and laboratory equipment installer. His glucose levels have been out of range the past couple attends he will continue to work on this. He saw infectious disease specialist again recently and he continues to take antibiotics as advised. He wants to avoid PICC line placement and will proceed forward with an oral linezolid course. He continues on blood thinner due to his deep venous thrombosis. Progress of Wound: Healed arch Stable heel Objective Data Objective Data Vital Signs: Vital Signs Temp Pulse Resp BP O2 Del Method 98.5 F 78 16 122/70 H Room Air 12/05/21 13:48 12/05/21 13:48 12/05/21 13:48 12/05/21 13:48 12/05/21 13:48 Oxygen Delivery Method Room Air Body Mass Index (BMI) 33.7 Physical Exam Narrative Const alert and no apparent distress General Appearance: cooperative and comfortable Extremity There is diffuse left foot/ankle and leg swelling. Left foot s/p debridement to arch and heel, tissues are healthy and viable, granular. Healed arch with full epithelialization. Positive probe to bone continued without loose fragments today. The bone is hard. There is peripheral granulation tissue and minimal peripheral callus also. There is no streaking or odor, compartments remain soft to palpate, there is no fluctuance or bogginess on palpation, no drainage, no visible abscess, no cellulitis, no blistering present. Hematogenous / serosanguineous drainage only upon debridement. Periwound moisture and maceration has resolved. Lack of normal epicritic sensation pathic status via light touch. Pain with manipulation and heel compression consistent prior visits normal capillary refill, no acute ischemic skin changes noted, normal temperature bilateral. Const oriented x3 General Appearance: cooperative Extremity Left Lower Extremity: lower leg Skin Skin Narrative: Wounds left heel osteomyelitis Wounds: wounds noted Wound Narrative: Neuro Neuro Narrative: Debridement Note Debridement Note Wound debrided: left heel Laterality: Left Wound Grade/Stage: 3 Type of Debridement: Excisional debridement Anesthesia Used: 4% Lidocaine Solution Depth: in the subcutaneous layer, to bone (heel) and - (misonic ultrasound debridement) Percentage of wound debrided: 100 Instrument Used: #15 blade Tissue Removed: fibrous, devitalized subcutaneous, biofilm, slough Severity: Fat Layer Exposed Amount of bleeding with debridement: Mild Bleeding Controlled with: Pressure Patient tolerated procedure: Patient tolerated procedure well Post-Debridement Measurements and Additional Note: Post-Debridement Measurements/Treatment - Nurse 1 - General Ulcer Assessment Start: 11/21/21 10:34 Freq: Status: Active Protocol: EVELYN Activity Type Activity Date Activity User E-sign Co-sign Detail Recorded Client Recorded Date Recorded By Document 11/21/21 10:34 [id number] 11/21/21 10:47 RB Document 11/28/21 10:20 [id number] 11/28/21 10:30 Document 12/05/21 13:48 [facility] [id number] 12/05/21 13:59 [facility] 11/21/21 11/28/21 12/05/21 10:34 10:20 13:48 - Today's Visit Information Type of service Follow-up Visit Follow-up Visit Follow-up Visit (Physician/GAS PUMPER (Physician/GAS PUMPER (Physician/GAS PUMPER ) ) ) Arrival Mode Wheelchair Wheelchair Wheelchair Transfer Assistance None Manual None Patient Identification Verified (Name & Yes Yes Yes ) Patient Requires Transmission-Based No No No Precautions Finger Stick Blood Sugar(mg/dl) (if 141 127 indicated): Blood Sugar Stated by Stated by Patient Patient Height and Weight Body Mass Index (BMI) 33.7 33.7 33.7 BMI Classification Obese Obese Obese Vital Signs Temperature (97.8 F-99.1 F) 97.5 F L 97.4 F L 98.5 F Temperature Source Temporal Temporal Temporal Pulse Rate (60-100) 66 65 78 Pulse Location Monitor Monitor Monitor Respiratory Rate (12-18) 18 18 16 Respiratory rate source Observation Observation Observation Oxygen Delivery Method Room Air Blood Pressure (90/60-120/80) 116/61 127/61 H 122/70 H Blood Pressure Mean (mm Hg) 79 83 87 Source Monitor Monitor Monitor Position Sitting Semi-Fowlers Sitting Blood Pressure Location Left Arm Left Arm Right Arm History Since Last Visit- (Skip if this is Patient's initial visit) Have you changed medications since your No No No last visit? Any new allergies or adverse reactions No No No Had a fall/change in ADL's that may No No No increase risk of falls Signs or symptoms of abuse and/or No No No neglect since last visit Have you been in the hospital since your No No No last visit? Has dressing in place as prescribed Yes Yes Yes Has compression in place as prescribed Yes Yes Yes Has offloadiing in place as prescribed Yes N/A Yes Experienced any changes in pain level or No No No management Left Footwear Multipodus Surgical Shoe Removable Cast Splint/Boot with pressure Walker/Walking relief insole Boot Right Footwear Regular Shoe Regular Shoe Regular Shoe Pain Scale: 0-10 Numeric Is Patient Pain Free? No Yes Yes LLE -Description Aching -Intensity 9 -Duration (hours) Acute -Pain Behavior Guarding, Irritability, Withdrawal from Touch -Pain Aggravating Factors ADL's -Alleviating Factors/Interventions Medication -Effectiveness of Alleviating Factor/ Moderately Intervention effective WC - Nurse 1 - General Ulcer Measurement Start: 11/21/21 10:34 Freq: Status: Active Protocol: Activity Type Activity Date Activity User E-sign Co-sign Detail Recorded Client Recorded Date Recorded By Document 11/21/21 10:34 RB [id number] 11/21/21 10:47 RB Document 11/28/21 10:20 [id number] 11/28/21 10:30 Document 12/05/21 13:48 [facility] [id number] 12/05/21 13:59 [facility] 11/21/21 11/28/21 12/05/21 10:34 10:20 13:48 Wound Center Nurse 1 4-left plantar arch -Combined with other wound No -Current Size (cm) - Length 0.1 -Current Size (cm) - Width 0.1 -Current Size (cm) - Depth 0.1 -Total Square Cm 0.01 -Tunneling No -Undermining/Tunneling No -Circular Undermining No -Exudate Amt Small -Exudate Type Serosanguineous -Wound Margin Distinct, Outline Attached -Granulation Amt Medium (34-66%) -Granulation Quality [place] -Slough/Fibrin Yes -Necrosis Amt Small (1-33%) -Necrotic Tissue Type Adherent Slough -Structure Exposed N/A -Texture (Margaret-wound Skin Appearance) Assessed, Scarring -Moisture (Margaret-wound Skin Appearance) Assessed -Color (Margaret-wound Skin Appearance) Assessed -Temperature (Margaret-wound Skin No Abnormality Appearance) (Pt Warm) -Tenderness on Palpation (Margaret-wound No Skin Appearance) -Ulcer Cleansing Wound Cleanser -Foul Odor after Cleansing No -Anesthetic Used 5% Lidocaine Gel #1 left heel cluster -Combined with other wound No No No -Current Size (cm) - Length 3.5 3.5 3.5 -Current Size (cm) - Width 3.3 3.2 3.5 -Current Size (cm) - Depth 0.6 0.5 1.2 -Total Square Cm 11.55 11.20 12.25 -Date of Last Picture (Recall this 12/05/21 field) -Photo Taken Yes Yes -Epithelialization None Present None Present -Tunneling No No No -Undermining/Tunneling No No No -Circular Undermining No No No -Exudate Amt Large Large Large -Exudate Type Serosanguineous Serosanguineous Serosanguineous -Wound Margin Thickened Flat & Intact Distinct, Outline Attached -Granulation Amt Small (1-33%) Small (1-33%) Small (1-33%) -Granulation Quality Pale Pale [place] -Slough/Fibrin Yes Yes Yes -Necrosis Amt Large (67-100%) Medium (34-66%) Large (67-100%) -Necrotic Tissue Type Adherent Slough Adherent Slough Adherent Slough -Structure Exposed Bone Bone,N/A -Texture (Margaret-wound Skin Appearance) Callus Assessed, Assessed,Callus Localized Edema ,Scarring -Moisture (Margaret-wound Skin Appearance) Assessed Assessed, Assessed,Dry/ Maceration Scaly -Color (Margaert-wound Skin Appearance) Assessed Assessed Assessed -Temperature (Margaret-wound Skin No Abnormality No Abnormality No Abnormality Appearance) (Pt Warm) (Pt Warm) (Pt Warm) -Tenderness on Palpation (Margaret-wound No No Yes Skin Appearance) -Ulcer Cleansing Wound Cleanser Soap and Water Soap and Water -Foul Odor after Cleansing No No No -Anesthetic Used 5% Lidocaine 5% Lidocaine 5% Lidocaine Gel Gel Gel Lower Limb Edema Present Yes Yes Yes Left Calf (cm) 49 45.0 50 Left Ankle (cm) 30.5 27.8 25.2 WC - Nurse 2 - General Ulcer CM Notes Start: 11/21/21 10:34 Freq: Status: Active Protocol: Activity Type Activity Date Activity User E-sign Co-sign Detail Recorded Client Recorded Date Recorded By Document 11/21/21 11:14 PL [id number] 11/21/21 11:16 PL Document 11/28/21 10:36 [id number] 11/28/21 10:42 JF Document 12/05/21 14:14 PL [id number] 12/05/21 14:15 PL 11/21/21 11/28/21 12/05/21 11:14 10:36 14:14 Wound Center Nurse 2 4-left plantar arch -Procedure Performed No -Wound/Ulcer Outcome Healed- Epithelialized #1 left heel cluster -Time 10:53 10:37 14:00 -Correct Patient Yes Yes Yes -Correct Side, Site, Position Yes Yes Yes -Correct Procedure Yes Yes Yes -Procedure Performed Yes Yes Yes -Type of Procedure Debridement Debridement Debridement -Clinical Debridement Subcutaneous Bone Subcutaneous -Tissue Removed Subcutaneous Non-viable Subcutaneous tissue -Post Debridement (cm) - Length 3.5 3.5 3.5 -Post Debridement (cm) - Width 3.3 3.3 3.5 -Post Debridement (cm) - Depth 0.6 1.0 1.2 -Total Square (Post) (cm) 12.25 -Area of Debridement (cm) - Length 3.5 3.5 3.5 -Area of Debridement (cm) - Width 3.3 3.3 3.5 -Total Square (Area) (cm) .55 12.25 -Tunneling No No No -Undermining/Tunneling No No No -Circular Undermining No No No -Wound/Ulcer Outcome Not Healed Not Healed Not Healed -Ulcer Cleansing Rinsed/ Rinsed/ Rinsed/ Irrigated with Irrigated with Irrigated with Saline Saline Saline -Foul Odor after Cleansing No No No -Bioengineered Tissue No No No -Bleeding Controlled with Pressure Pressure,Gel Pressure, Form SURGIFOAM -Treatment Response Procedure Procedure Procedure Tolerated Well Tolerated Well Tolerated Well -Offloading Yes -Type of Offloading Camwalker -Debridement - Subq, 1st 20sq cm Yes Yes -Debridement - Bone, 1st 20sq cm Yes Pain Scale: 0-10 Numeric Is Patient Pain Free? Yes Yes Yes WC - Nurse 3 - General Ulcer D/C NN Start: 11/21/21 10:34 Freq: Status: Active Protocol: Activity Type Activity Date Activity User E-sign Co-sign Detail Recorded Client Recorded Date Recorded By Document 11/21/21 11:18 BM [id number] 11/21/21 11:19 BMF Document 11/28/21 10:48 DL [id number] 11/28/21 10:52 DL Document 12/05/21 14:36 RB [id number] 12/05/21 14:38 RB 11/21/21 11/28/21 12/05/21 11:18 10:48 14:36 Wound Care Nurse 3 #1 left heel cluster -Ulcer Cleansing Rinsed/ Rinsed/ Irrigated with Irrigated with Saline Saline -Foul Odor after Cleansing No No -Primary Dressing Applied Aquacel AG 4x4 -Other Dressing Surgifoam today surgifoam applied per Dr Mandel left in place as ordered per Dr -Primary Dressing Covered/Secured with Dry Gauze & Dry Gauze & Dry Gauze,Dry Roll Gauze, Roll Gauze, Gauze & Roll Secured with Secured with Gauze,Secured Tape Tape with Tape -Other Covering HEEL HAT abd kerlix kevin -Aquacel AG 4x4 1 Left -Compression Wrap Kevin Wrap Treatment Response Procedure Procedure Tolerated Well Tolerated Well Pain Scale: 0-10 Numeric Is Patient Pain Free? Yes Yes Yes WC - Visit Discharge Discharge Condition Stable Stable Stable Ambulatory Status Wheelchair Wheelchair Transportation Private Auto Private Auto Medication Reconcilliation completed & No provided to patient/care provider Clinical Summary of Care Provided Yes Notes: Pt to leave surgifoam till Friday and changeto Aquacel Ag. Facility Type Home Health Home Health Orders Sent Yes Assessment/Plan Assessment/Plan (1) Non-pressure chronic ulcer of left heel and midfoot with fat layer exposed: CODE(S): L97.422 - Non-pressure chronic ulcer of left heel and midfoot with fat layer exposed (2) Localized edema: CODE(S): R60.0 - Localized edema (3) Diabetes mellitus: CODE(S): E11.9 - Type 2 diabetes mellitus without complications (4) Type 2 diabetes mellitus with diabetic polyneuropathy: CODE(S): E11.42 - Type 2 diabetes mellitus with diabetic polyneuropathy QUALIFIERS: Diabetes mellitus fdc insulin use: with termite treater use Qualified Code(s): E11.42 - Type 2 diabetes mellitus with diabetic polyneuropathy; Z79.4 - rn long term care (current) use of insulin (5) Diabetic foot ulcer: CODE(S): E11.621 - Type 2 diabetes mellitus with foot ulcer; L97.509 - Non-pressure chronic ulcer of other part of unspecified foot with unspecified severity QUALIFIERS: Diabetic foot ulcer location: heel Diabetes mellitus type: type 2 Laterality: left Non-pressure ulcer stage: with fat layer exposed Qualified Code(s): E11.621 - Type 2 diabetes mellitus with foot ulcer; L97.422 - Non-pressure chronic ulcer of left heel and midfoot with fat layer exposed (6) Tobacco abuse: CODE(S): Z72.0 - Tobacco use (7) Cellulitis of left lower limb: CODE(S): L03.116 - Cellulitis of left lower limb (8) Chronic ulcer of left foot with necrosis of bone: CODE(S): L97.524 - Non-pressure chronic ulcer of other part of left foot with necrosis of bone (9) Foot osteomyelitis: CODE(S): M86.9 - Osteomyelitis, unspecified QUALIFIERS: Osteomyelitis type: other acute Laterality: left Qualified Code(s): M86.172 - Other acute osteomyelitis, left ankle and foot (10) Difficulty in walking: CODE(S): R26.2 - Difficulty in walking, not elsewhere classified (11) Left foot pain: CODE(S): M79.672 - Pain in left foot (12) DVT (deep venous thrombosis): CODE(S): I82.409 - Acute embolism and thrombosis of unspecified deep veins of unspecified lower extremity PLAN: Plan Patient seen and examined. I reviewed and discussed his case. Debridement was performed as noted in the clinical nursing panel. Dressing recommendation: Applied gel foam today. To proceed forward with Aquacel Ag Friday and Friday. This was also washed with soap and water. Offloading: To maintain a strict nonweightbearing status to the ulcer to the foot. To use assistive walking device as well. He has a cam walker. Infection management: This culture results were reviewed with MRSA, Enterobacter, Enterococcus, and corynebacteria. He has osteomyelitis which was confirmed with bone biopsy sent to microbiology and pathology. It appears an extended course of linezolid is appropriate per infectious disease recommendation orally. This was discussed with ID specialist and the patient. Lab trends will be followed weekly. Advance wound options: He has a status change now with new diagnosis of osteomyelitis. I recommend hyperbaric oxygen therapy if he is medically cleared to undergo such treatment. He reports he is available to come in 5 days a week for couple hours each day and he has anticipated reliable transportation. He is in the process of getting cleared for hyperbaric oxygen therapy and will start soon. He did have to have some additional cardiac tests performed to ensure safety. He did also see ENT as well. I recommend he proceed as tolerated and as planned to optimize his healing potential. He has an echocardiogram was completed and his EF is 65%. [employer] clearance was obtained and he is scheduled to start. He is in the process again as scheduled and controlling his glucose levels to allow safe entry. Patient relates he had follow-up appointment with his primary care provider, Priyanka Brown, and relates that she did not change any medication and stated he was doing okay. PCP is leaving the diabetes management up to his hotel concierge, Dr. Mykel Barraza. He was able to follow-up and recommendations were updated. An updated hemoglobin A1c order was provided because we are unable to obtain this in a timely manner from the primary care physician's office. this was 8.6%. To follow up with pain management. It is noted he is already on gabapentin, Percocet, and Tylenol. I do not recommend additional narcotic pain medication which she is requesting today. We discussed source of pain is likely from his infection and from pressure applied while walking on this gradual site now that his bone is exposed. Edema management: Medical management per primary care. To reduce salt in diet. Total contact cast will also aide in edema reduction if this considered upon continued foot stability and resolution of infection status. I only recommend reapplication after he has completed his acute deep venous thrombosis treatment. Arterial studies were reviewed. Showing likely adequate perfusion for healing. Right LAI is 0.99 and left 1.18. Right toe brachial index 0.76 and left 0.71. Referral to Dr. Campos for potential venous and arterial intervention was provided today. He went for consultationon 04-11-21. Will recheck duplex to make sure normal posterior tibial flow into the area of the wound. normal prior LAI noted. Host factors: His multiple comorbidities are noted including diabetes and smoking history. Also recommend improvement in nutritional status which involves taking in adequate protein and also focusing on eating 5-10 whole foods daily. Gait abnormality/walking difficulty: I recommend PT and OT intervention with his home health agency. A referral was provided previously. He is at risk for falling. He is fragile and has demonstrated progressive deterioration. All questions answered. He understands below-knee amputation is an option as well if he cannot keep pressure off the site, if pain becomes intolerable, and if he no longer is able to proceed with a comprehensive wound healing plan. He defers at this time. This was discussed at length today. The benefits and indications of a below-knee amputation were reviewed. He would like to consider a referral to a doctor in the same healthcare system he attends in the [facility]. Patient to follow up in 1 week or call sooner if status worsening or if questions. He will follow-up on Friday for total contact cast evaluation and removal. I answered all of his questions. This note was generated with [employer] dictation software. It may contain incorrect words, spelling, and punctuation that were not noted in checking the note before signing.
[2021-12-07 09:31] LABS: Bedside Glucose 182 mg/dL (74-106)
[2021-12-07 11:01] VITALS: BP 150/63; BP 159/78; PULSE 66; PULSE 92; RESP 16; RESP 17; TEMP 36.9
--- NOTE | 2021-12-07 12:13 | HBO.PN.PCM_ITS ---
History of Present Illness Date of Service: 12/07/21 Chief Complaint: left heel History of Wound: Patient presents for chronic non healing wound to left plantar foot (heel, and recently healed ulcer at arch). A limb and life-threatening infection which required emergent surgical intervention on 05-29-2021. He has been demonstrating improvement with total contact cast applications however had recent deteriorization and now has exposed bone to the heel now with additional osteomyelitis. A culture demonstrated multi organism growth. 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 Raphael. He denies fever, chill, nausea, vomiting, pain, odor, redness. He is keeping weight off of his foot he reports. He has been cleared for hyperbaric oxygen therapy treatment for osteomyelitis and Acevedo grade 3 by medical physician and medical doctor. His glucose levels have been out of range the past couple attends he will continue to work on this. He saw infectious disease specialist again recently and he continues to take antibiotics as advised. He wants to avoid PICC line placement and will proceed forward with an oral linezolid course. He continues on blood thinner due to his deep venous thrombosis. Progress of Wound: Healed arch Stable heel Subjective Subjective Progress: Today is the 1st treatment of hyperbaric oxygen therapy. The patient is scheduled for 30 treatments total. Tolerance of hyperbaric oxygen therapy: Hyperbaric oxygen treatment was provided as per the facility's protocol at 2.0 ALE in 100% oxygen but the patient was not able to tolerate treatment due to ear pain and the treatment was discontinued before he reached prescribed pressure. Upon emergence of the hyperbaric chamber, the patient's vital signs remained stable. His TM's appeared mildly erythematous b/l without rupture indicated minor barotrauma and he was referred to ENT for myringotomy tube placement. He also had inconsistent blood glucose testing on his continuous glucometer compared to finger stick glucose done per protocol here and advised him to try to decrease his Lantus to 25 units daily while he is undergoing HBO treatment so that his numbers are a little higher and he is able to undergo treatment as he has not been able to even attempt diving because of low blood sugars. Objective Data Objective Data Vital Signs: Vital Signs Temp Pulse Resp BP O2 Del Method 98.5 F 66 17 159/78 H Room Air 12/07/21 11:01 12/07/21 11:01 12/07/21 11:01 12/07/21 11:01 12/05/21 13:48 Oxygen Delivery Method Room Air Body Mass Index (BMI) 33.7 Lab / Micro Data Labs: Laboratory Results - last 24 hr 12/07/21 09:10: POC Glucose 182 H Exam Physical Exam Const alert, oriented x3 and no apparent distress HEENT HEENT Narrative: mildly erythematous TMs bilaterally without rupture or hemotympanum Psych mental status grossly normal, thought process normal, cooperative, affect normal and speech normal Nursing Assessment and Debridement Post-Debridement Measurements and Additional Note: Post-Debridement Measurements/Treatment - Nurse 1 - General Ulcer Assessment Start: 11/21/21 10:34 Freq: Status: Active Protocol: [email or web address] Activity Type Activity Date Activity User E-sign Co-sign Detail Recorded Client Recorded Date Recorded By Document 12/05/21 13:48 [facility] [id number] 12/05/21 13:59 [facility] 12/05/21 13:48 WC - Today's Visit Information Type of service Follow-up Visit (Physician/RIGHT OF WAY MANAGER ) Arrival Mode Wheelchair Transfer Assistance None Patient Identification Verified (Name & Yes ) Patient Requires Transmission-Based No Precautions Finger Stick Blood Sugar(mg/dl) (if 127 indicated): Blood Sugar Stated by Patient Height and Weight Body Mass Index (BMI) 33.7 BMI Classification Obese Vital Signs Temperature (97.8 F-99.1 F) 98.5 F Temperature Source Temporal Pulse Rate (60-100) 78 Pulse Location Monitor Respiratory Rate (12-18) 16 Respiratory rate source Observation Oxygen Delivery Method Room Air Blood Pressure (90/60-120/80) 122/70 H Blood Pressure Mean (mm Hg) 87 Source Monitor Position Sitting Blood Pressure Location Right Arm History Since Last Visit- (Skip if this is Patient's initial visit) Have you changed medications since your No last visit? Any new allergies or adverse reactions No Had a fall/change in ADL's that may No increase risk of falls Signs or symptoms of abuse and/or No neglect since last visit Have you been in the hospital since your No last visit? Has dressing in place as prescribed Yes Has compression in place as prescribed Yes Has offloadiing in place as prescribed Yes Experienced any changes in pain level or No management Left Footwear Removable Cast Walker/Walking Boot Right Footwear Regular Shoe Pain Scale: 0-10 Numeric Is Patient Pain Free? Yes WC - Nurse 1 - General Ulcer Measurement Start: 11/21/21 10:34 Freq: Status: Active Protocol: Activity Type Activity Date Activity User E-sign Co-sign Detail Recorded Client Recorded Date Recorded By Document 12/05/21 13:48 [facility] [id number] 12/05/21 13:59 [facility] 12/05/21 13:48 Wound Center Nurse 1 #1 left heel cluster -Combined with other wound No -Current Size (cm) - Length 3.5 -Current Size (cm) - Width 3.5 -Current Size (cm) - Depth 1.2 -Total Square Cm 12.25 -Date of Last Picture (Recall this 12/05/21 field) -Photo Taken Yes -Epithelialization None Present -Tunneling No -Undermining/Tunneling No -Circular Undermining No -Exudate Amt Large -Exudate Type Serosanguineous -Wound Margin Distinct, Outline Attached -Granulation Amt Small (1-33%) -Granulation Quality [place] -Slough/Fibrin Yes -Necrosis Amt Large (67-100%) -Necrotic Tissue Type Adherent Slough -Texture (Margaret-wound Skin Appearance) Assessed,Callus ,Scarring -Moisture (Margaret-wound Skin Appearance) Assessed,Dry/ Scaly -Color (Margaret-wound Skin Appearance) Assessed -Temperature (Margaret-wound Skin No Abnormality Appearance) (Pt Warm) -Tenderness on Palpation (Margaret-wound Yes Skin Appearance) -Ulcer Cleansing Soap and Water -Foul Odor after Cleansing No -Anesthetic Used 5% Lidocaine Gel Lower Limb Edema Present Yes Left Calf (cm) 50 Left Ankle (cm) 25.2 WC - Nurse 2 - General Ulcer CM Notes Start: 11/21/21 10:34 Freq: Status: Active Protocol: Activity Type Activity Date Activity User E-sign Co-sign Detail Recorded Client Recorded Date Recorded By Document 12/05/21 14:14 PL [id number] 12/05/21 14:15 PL 12/05/21 14:14 Wound Center Nurse 2 #1 left heel cluster -Time 14:00 -Correct Patient Yes -Correct Side, Site, Position Yes -Correct Procedure Yes -Procedure Performed Yes -Type of Procedure Debridement -Clinical Debridement Subcutaneous -Tissue Removed Subcutaneous -Post Debridement (cm) - Length 3.5 -Post Debridement (cm) - Width 3.5 -Post Debridement (cm) - Depth 1.2 -Total Square (Post) (cm) 12.25 -Area of Debridement (cm) - Length 3.5 -Area of Debridement (cm) - Width 3.5 -Total Square (Area) (cm) 12.25 -Tunneling No -Undermining/Tunneling No -Circular Undermining No -Wound/Ulcer Outcome Not Healed -Ulcer Cleansing Rinsed/ Irrigated with Saline -Foul Odor after Cleansing No -Bioengineered Tissue No -Bleeding Controlled with Pressure, SURGIFOAM -Treatment Response Procedure Tolerated Well -Debridement - Subq, 1st 20sq cm Yes Pain Scale: 0-10 Numeric Is Patient Pain Free? Yes - Nurse 3 - General Ulcer D/C NN Start: 11/21/21 10:34 Freq: Status: Active Protocol: Activity Type Activity Date Activity User E-sign Co-sign Detail Recorded Client Recorded Date Recorded By Document 12/05/21 14:36 [id number] 12/05/21 14:38 RB 12/05/21 14:36 Wound Care Nurse 3 #1 left heel cluster -Other Dressing surgifoam applied per Dr Mandel left in place as ordered per Dr -Primary Dressing Covered/Secured with Dry Gauze,Dry Gauze & Roll Gauze,Secured with Tape -Other Covering abd kerlix aayush Pain Scale: 0-10 Numeric Is Patient Pain Free? Yes WC - Visit Discharge Discharge Condition Stable Medication Reconcilliation completed & No provided to patient/care provider Clinical Summary of Care Provided Yes Assessment/Plan Assessment/Plan (1) CKD (chronic kidney disease), stage III: CODE(S): N18.30 - Chronic kidney disease, stage 3 unspecified (2) Foot osteomyelitis: CODE(S): M86.9 - Osteomyelitis, unspecified QUALIFIERS: Osteomyelitis type: other acute Laterality: left Qualified Code(s): M86.172 - Other acute osteomyelitis, left ankle and foot (3) Chronic ulcer of left foot with necrosis of bone: CODE(S): L97.524 - Non-pressure chronic ulcer of other part of left foot with necrosis of bone (4) Type 2 diabetes mellitus with diabetic polyneuropathy: CODE(S): E11.42 - Type 2 diabetes mellitus with diabetic polyneuropathy 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: with intermodal 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 driver use Qualified Code(s): E11.42 - Type 2 diabetes mellitus with diabetic polyneuropathy; Z79.4 - skilled nursing (current) use of insulin (5) Diabetic foot ulcer: CODE(S): E11.621 - Type 2 diabetes mellitus with foot ulcer; L97.509 - Non-pressure chronic ulcer of other part of unspecified foot with unspecified severity QUALIFIERS: Diabetic foot ulcer location: heel Diabetes mellitus type: type 2 Laterality: left Non-pressure ulcer stage: with fat layer exposed Qualified Code(s): E11.621 - Type 2 diabetes mellitus with foot ulcer; L97.422 - Non-pressure chronic ulcer of left heel and midfoot with fat layer exposed PLAN: Plan The patient did not tolerate treatment and was referred to ENT for tube placement bilaterally before he will attempt treatment again.
[2021-12-07 22:21] LABS: Bedside Glucose 142 mg/dL (74-106)
[2021-12-07 22:21] LABS: Bedside Glucose 174 mg/dL (74-106)
[2021-12-07 22:21] LABS: Bedside Glucose 148 mg/dL (74-106)
[2021-12-12 08:26] LABS: Bedside Glucose 163 mg/dL (74-106)
[2021-12-12 10:46] LABS: Bedside Glucose 196 mg/dL (74-106)
[2021-12-12 10:53] VITALS: BP 149/64; PULSE 59; RESP 18; TEMP 36.1; BMI 33.7
[2021-12-12 10:58] VITALS: BP 149/64; BP 90/45; PULSE 59; PULSE 64; RESP 16; RESP 17; TEMP 36.4
--- NOTE | 2021-12-12 10:58 | HBO.PN.PCM_ITS ---
History of Present Illness Date of Service: 12/12/21 Chief Complaint: left heel History of Wound: Patient presents for chronic non healing wound to left plantar foot (heel, and recently healed ulcer at arch). A limb and life-threatening infection which required emergent surgical intervention on 05-29-2021. He has been demonstrating improvement with total contact cast applications however had recent deteriorization and now has exposed bone to the heel now with additional osteomyelitis. A culture demonstrated multi organism growth. 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 Raphael. He denies fever, chill, nausea, vomiting, pain, odor, redness. He is keeping weight off of his foot he reports. 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 His glucose levels have been out of range the past couple attends he will continue to work on this. He saw infectious disease specialist again recently and he continues to take antibiotics as advised. He wants to avoid PICC line placement and will proceed forward with an oral linezolid course. He continues on blood thinner due to his deep venous thrombosis. Progress of Wound: Patient tolerated HBO treatment of ALE two-point with no breaks for 2-hour treatment vital signs stayed stable and patient tolerated treatment well. For his osteomyelitis and Acevedo 3 foot l Subjective Subjective Patient tolerated treatments well and was okay with it Objective Data Objective Data No concerns tolerated treatment will return again as scheduled Vital Signs: Vital Signs Temp Pulse Resp BP O2 Del Method 98.5 F 66 17 159/78 H Room Air 12/07/21 11:01 12/07/21 11:01 12/07/21 11:01 12/07/21 11:01 12/05/21 13:48 Oxygen Delivery Method Room Air Body Mass Index (BMI) 33.7 Lab / Micro Data Labs: Laboratory Results - last 24 hr 12/12/21 08:04: POC Glucose 163 H 12/12/21 10:26: POC Glucose 196 H Exam Physical Exam Const alert, oriented x3 and no apparent distress HEENT HEENT Narrative: mildly erythematous TMs bilaterally without rupture or hemotympanum Psych mental status grossly normal, thought process normal, cooperative, affect normal and speech normal Assessment/Plan Assessment/Plan (1) CKD (chronic kidney disease), stage III: CODE(S): N18.30 - Chronic kidney disease, stage 3 unspecified (2) Foot osteomyelitis: CODE(S): M86.9 - Osteomyelitis, unspecified QUALIFIERS: Osteomyelitis type: other acute Laterality: left Qualified Code(s): M86.172 - Other acute osteomyelitis, left ankle and foot (3) Chronic ulcer of left foot with necrosis of bone: CODE(S): L97.524 - Non-pressure chronic ulcer of other part of left foot with necrosis of bone (4) Type 2 diabetes mellitus with diabetic polyneuropathy: CODE(S): E11.42 - Type 2 diabetes mellitus with diabetic polyneuropathy QUALIFIERS: Diabetes mellitus assisted insulin use: with director long term care use Qualified Code(s): E11.42 - Type 2 diabetes mellitus with diabetic polyneuropathy; Z79.4 - long-term (current) use of insulin (5) Diabetic foot ulcer: CODE(S): E11.621 - Type 2 diabetes mellitus with foot ulcer; L97.509 - Non-pressure chronic ulcer of other part of unspecified foot with unspecified severity QUALIFIERS: Diabetic foot ulcer location: heel Diabetes mellitus type: type 2 Laterality: left Non-pressure ulcer stage: with fat layer exposed Qualified Code(s): E11.621 - Type 2 diabetes mellitus with foot ulcer; L97.422 - Non-pressure chronic ulcer of left heel and midfoot with fat layer exposed PLAN: Continue HBO treatments as tolerates patient will return as scheduled.
--- NOTE | 2021-12-12 13:33 | PN.PCM_ITS ---
History of Present Illness Date of Service: 12/12/21 Chief Complaint: left heel History of Wound: Patient presents for chronic non healing wound to left plantar foot (heel, and recently healed ulcer at arch). A limb and life-threatening infection which required emergent surgical intervention on 05-29-2021. He has been demonstrating improvement with total contact cast applications however had recent deteriorization and now has exposed bone to the heel now with additional osteomyelitis. A culture demonstrated multi organism growth. 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 Raphael. He denies fever, chill, nausea, vomiting, pain, odor, redness. He is keeping weight off of his foot he reports. He has been cleared for hyperbaric oxygen therapy treatment for osteomyelitis and Acevedo grade 3 by medical physician and community engagement representative. He had tubes placed in his ears and attended his first session this morning. He saw infectious disease specialist again recently and he continues to take antibiotics as advised. He wants to avoid PICC line placement and will proceed forward with an oral linezolid course. He continues on blood thinner due to his deep venous thrombosis. Progress of Wound: Improving Objective Data Objective Data Vital Signs: Vital Signs Temp Pulse Resp BP O2 Del Method 97.6 F L 64 16 90/45 L Room Air 12/12/21 10:58 12/12/21 10:58 12/12/21 10:58 12/12/21 10:58 12/05/21 13:48 Oxygen Delivery Method Room Air Body Mass Index (BMI) 33.7 Lab / Micro Data Labs: Laboratory Results - last 24 hr 12/12/21 08:04: POC Glucose 163 H 12/12/21 10:26: POC Glucose 196 H Physical Exam Narrative Const alert and no apparent distress General Appearance: cooperative and comfortable Extremity There is diffuse left foot/ankle and leg swelling. Left foot s/p debridement to arch and heel, tissues are healthy and viable, granular. Healed arch with full epithelialization. Positive probe to bone continued without loose fragments today. The bone is hard. There is peripheral granulation tissue and minimal peripheral callus also. There is no streaking or odor, compartments remain soft to palpate, there is no fluctuance or bogginess on palpation, no drainage, no visible abscess, no cellulitis, no blistering present. Hematogenous / serosanguineous drainage only upon debridement. Periwound moisture and maceration has resolved. Lack of normal epicritic sensation pathic status via light touch. Pain with manipulation and heel compression consistent prior visits normal capillary refill, no acute ischemic skin changes noted, normal temperature bilateral. Const oriented x3 General Appearance: cooperative Extremity Left Lower Extremity: lower leg Skin Skin Narrative: Wounds left heel osteomyelitis Wound Narrative: Neuro Neuro Narrative: Debridement Note Debridement Note Wound debrided: left heel Laterality: Left Wound Grade/Stage: 3 Type of Debridement: Excisional debridement Anesthesia Used: 4% Lidocaine Solution Depth: in the subcutaneous layer, to bone (heel) and - (misonic ultrasound lizet ridement) Percentage of wound debrided: 100 Instrument Used: #15 blade Tissue Removed: fibrous, devitalized subcutaneous, biofilm, slough Severity: Fat Layer Exposed Amount of bleeding with debridement: Mild Bleeding Controlled with: Pressure Patient tolerated procedure: Patient tolerated procedure well Post-Debridement Measurements and Additional Note: Post-Debridement Measurements/Treatment - Nurse 1 - General Ulcer Assessment Start: 11/21/21 10:34 Freq: Status: Active Protocol: EVELYN Activity Type Activity Date Activity User E-sign Co-sign Detail Recorded Client Recorded Date Recorded By Document 11/21/21 10:34 [id number] 11/21/21 10:47 Document 11/28/21 10:20 [id number] 11/28/21 10:30 Document 12/05/21 13:48 [facility] [id number] 12/05/21 13:59 [facility] Document 12/12/21 10:53 [id number] 12/12/21 11:04 11/21/21 11/28/21 12/05/21 10:34 10:20 13:48 - Today's Visit Information Type of service Follow-up Visit Follow-up Visit Follow-up Visit (Physician/HOUSEHOLD MANAGER (Physician/HOUSEHOLD MANAGER (Physician/HOUSEHOLD MANAGER ) ) ) Arrival Mode Wheelchair Wheelchair Wheelchair Transfer Assistance None Manual None Patient Identification Verified (Name & Yes Yes Yes ) Patient Requires Transmission-Based No No No Precautions Finger Stick Blood Sugar(mg/dl) (if 141 127 indicated): Blood Sugar Stated by Stated by Patient Patient Height and Weight Body Mass Index (BMI) 33.7 33.7 33.7 BMI Classification Obese Obese Obese Vital Signs Temperature (97.8 F-99.1 F) 97.5 F L 97.4 F L 98.5 F Temperature Source Temporal Temporal Temporal Pulse Rate (60-100) 66 65 78 Pulse Location Monitor Monitor Monitor Respiratory Rate (12-18) 18 18 16 Respiratory rate source Observation Observation Observation Oxygen Delivery Method Room Air Blood Pressure (90/60-120/80) 116/61 127/61 H 122/70 H Blood Pressure Mean (mm Hg) 79 83 87 Source Monitor Monitor Monitor Position Sitting Semi-Fowlers Sitting Blood Pressure Location Left Arm Left Arm Right Arm History Since Last Visit- (Skip if this is Patient's initial visit) Have you changed medications since your No No No last visit? Any new allergies or adverse reactions No No No Had a fall/change in ADL's that may No No No increase risk of falls Signs or symptoms of abuse and/or No No No neglect since last visit Have you been in the hospital since your No No No last visit? Has dressing in place as prescribed Yes Yes Yes Has compression in place as prescribed Yes Yes Yes Has offloadiing in place as prescribed Yes N/A Yes Experienced any changes in pain level or No No No management Left Footwear Multipodus Surgical Shoe Removable Cast Splint/Boot with pressure Walker/Walking relief insole Boot Right Footwear Regular Shoe Regular Shoe Regular Shoe Pain Scale: 0-10 Numeric Is Patient Pain Free? No Yes Yes LLE -Description Aching -Intensity 9 -Duration (hours) Acute -Pain Behavior Guarding, Irritability, Withdrawal from Touch -Pain Aggravating Factors ADL's -Alleviating Factors/Interventions Medication -Effectiveness of Alleviating Factor/ Moderately Intervention effective 12/12/21 10:53 WC - Today's Visit Information Type of service Follow-up Visit (Physician/HOUSEHOLD MANAGER ) Arrival Mode Wheelchair Transfer Assistance None Patient Identification Verified (Name & Yes ) Patient Requires Transmission-Based No Precautions Finger Stick Blood Sugar(mg/dl) (if indicated): Blood Sugar Height and Weight Body Mass Index (BMI) 33.7 BMI Classification Obese Vital Signs Temperature (97.8 F-99.1 F) 97 F L Temperature Source Temporal Pulse Rate (60-100) 59 L Pulse Location Monitor Respiratory Rate (12-18) 18 Respiratory rate source Observation Oxygen Delivery Method Blood Pressure (90/60-120/80) 149/64 H Blood Pressure Mean (mm Hg) 92 Source Monitor Position Semi-Fowlers Blood Pressure Location Left Arm History Since Last Visit- (Skip if this is Patient's initial visit) Have you changed medications since your No last visit? Any new allergies or adverse reactions No Had a fall/change in ADL's that may No increase risk of falls Signs or symptoms of abuse and/or No neglect since last visit Have you been in the hospital since your No last visit? Has dressing in place as prescribed Yes Has compression in place as prescribed Yes Has offloadiing in place as prescribed Yes Experienced any changes in pain level or No management Left Footwear Removable Cast Walker/Walking Boot Right Footwear Pain Scale: 0-10 Numeric Is Patient Pain Free? No LLE -Description Sharp -Intensity 8 -Duration (hours) Acute -Pain Behavior Guarding -Pain Aggravating Factors ADL's -Alleviating Factors/Interventions Medication,None -Effectiveness of Alleviating Factor/ Minimally Intervention effective WC - Nurse 1 - General Ulcer Measurement Start: 11/21/21 10:34 Freq: Status: Active Protocol: Activity Type Activity Date Activity User E-sign Co-sign Detail Recorded Client Recorded Date Recorded By Document 11/21/21 10:34 [id number] 11/21/21 10:47 Document 11/28/21 10:20 [id number] 11/28/21 10:30 Document 12/05/21 13:48 [facility] [id number] 12/05/21 13:59 [facility] Document 12/12/21 10:53 [id number] 12/12/21 11:04 11/21/21 11/28/21 12/05/21 10:34 10:20 13:48 Wound Center Nurse 1 4-left plantar arch -Combined with other wound No -Current Size (cm) - Length 0.1 -Current Size (cm) - Width 0.1 -Current Size (cm) - Depth 0.1 -Total Square Cm 0.01 -Tunneling No -Undermining/Tunneling No -Circular Undermining No -Exudate Amt Small -Exudate Type Serosanguineous -Wound Margin Distinct, Outline Attached -Granulation Amt Medium (34-66%) -Granulation Quality [place] -Slough/Fibrin Yes -Necrosis Amt Small (1-33%) -Necrotic Tissue Type Adherent Slough -Structure Exposed N/A -Texture (Margaret-wound Skin Appearance) Assessed, Scarring -Moisture (Margaret-wound Skin Appearance) Assessed -Color (Margaret-wound Skin Appearance) Assessed -Temperature (Margaret-wound Skin No Abnormality Appearance) (Pt Warm) -Tenderness on Palpation (Margaret-wound No Skin Appearance) -Ulcer Cleansing Wound Cleanser -Foul Odor after Cleansing No -Anesthetic Used 5% Lidocaine Gel #1 left heel cluster -Combined with other wound No No No -Current Size (cm) - Length 3.5 3.5 3.5 -Current Size (cm) - Width 3.3 3.2 3.5 -Current Size (cm) - Depth 0.6 0.5 1.2 -Total Square Cm 11.55 11.20 12.25 -Date of Last Picture (Recall this 12/05/21 field) -Photo Taken Yes Yes -Epithelialization None Present None Present -Tunneling No No No -Undermining/Tunneling No No No -Circular Undermining No No No -Exudate Amt Large Large Large -Exudate Type Serosanguineous Serosanguineous Serosanguineous -Wound Margin Thickened Flat & Intact Distinct, Outline Attached -Granulation Amt Small (1-33%) Small (1-33%) Small (1-33%) -Granulation Quality Pale Pale [place] -Slough/Fibrin Yes Yes Yes -Necrosis Amt Large (67-100%) Medium (34-66%) Large (67-100%) -Necrotic Tissue Type Adherent Slough Adherent Slough Adherent Slough -Structure Exposed Bone Bone,N/A -Texture (Margaret-wound Skin Appearance) Callus Assessed, Assessed,Callus Localized Edema ,Scarring -Moisture (Margaret-wound Skin Appearance) Assessed Assessed, Assessed,Dry/ Maceration Scaly -Color (Margaret-wound Skin Appearance) Assessed Assessed Assessed -Temperature (Margaret-wound Skin No Abnormality No Abnormality No Abnormality Appearance) (Pt Warm) (Pt Warm) (Pt Warm) -Tenderness on Palpation (Margaret-wound No No Yes Skin Appearance) -Ulcer Cleansing Wound Cleanser Soap and Water Soap and Water -Foul Odor after Cleansing No No No -Anesthetic Used 5% Lidocaine 5% Lidocaine 5% Lidocaine Gel Gel Gel Lower Limb Edema Present Yes Yes Yes Left Calf (cm) 49 45.0 50 Left Ankle (cm) 30.5 27.8 25.2 12/12/21 10:53 Wound Center Nurse 1 4-left plantar arch -Combined with other wound -Current Size (cm) - Length -Current Size (cm) - Width -Current Size (cm) - Depth -Total Square Cm -Tunneling -Undermining/Tunneling -Circular Undermining -Exudate Amt -Exudate Type -Wound Margin -Granulation Amt -Granulation Quality -Slough/Fibrin -Necrosis Amt -Necrotic Tissue Type -Structure Exposed -Texture (Margaret-wound Skin Appearance) -Moisture (Margaret-wound Skin Appearance) -Color (Margaret-wound Skin Appearance) -Temperature (Margaret-wound Skin Appearance) -Tenderness on Palpation (Margaret-wound Skin Appearance) -Ulcer Cleansing -Foul Odor after Cleansing -Anesthetic Used #1 left heel cluster -Combined with other wound No -Current Size (cm) - Length 3.5 -Current Size (cm) - Width 3 -Current Size (cm) - Depth 0.9 -Total Square Cm 10.5 -Date of Last Picture (Recall this field) -Photo Taken Yes -Epithelialization -Tunneling No -Undermining/Tunneling No -Circular Undermining No -Exudate Amt Large -Exudate Type Serosanguineous -Wound Margin Thickened & Rolled Under -Granulation Amt Medium (34-66%) -Granulation Quality [place] -Slough/Fibrin Yes -Necrosis Amt Large (67-100%) -Necrotic Tissue Type Adherent Slough -Structure Exposed N/A -Texture (Margaret-wound Skin Appearance) Callus -Moisture (Margaret-wound Skin Appearance) Assessed -Color (Margaret-wound Skin Appearance) Assessed -Temperature (Margaret-wound Skin No Abnormality Appearance) (Pt Warm) -Tenderness on Palpation (Margaret-wound No Skin Appearance) -Ulcer Cleansing Wound Cleanser -Foul Odor after Cleansing Yes -Anesthetic Used 5% Lidocaine Gel Lower Limb Edema Present Left Calf (cm) 49.5 Left Ankle (cm) 29 WC - Nurse 2 - General Ulcer CM Notes Start: 11/21/21 10:34 Freq: Status: Active Protocol: Activity Type Activity Date Activity User E-sign Co-sign Detail Recorded Client Recorded Date Recorded By Document 11/21/21 11:14 PL [id number] 11/21/21 11:16 PL Document 11/28/21 10:36 [id number] 11/28/21 10:42 Document 12/05/21 14:14 PL [id number] 12/05/21 14:15 PL Document 12/12/21 11:12 [id number] 12/12/21 11:14 11/21/21 11/28/21 12/05/21 11:14 10:36 14:14 Wound Center Nurse 2 4-left plantar arch -Procedure Performed No -Wound/Ulcer Outcome Healed- Epithelialized #1 left heel cluster -Time 10:53 10:37 14:00 -Correct Patient Yes Yes Yes -Correct Side, Site, Position Yes Yes Yes -Correct Procedure Yes Yes Yes -Procedure Performed Yes Yes Yes -Type of Procedure Debridement Debridement Debridement -Clinical Debridement Subcutaneous Bone Subcutaneous -Tissue Removed Subcutaneous Non-viable Subcutaneous tissue -Post Debridement (cm) - Length 3.5 3.5 3.5 -Post Debridement (cm) - Width 3.3 3.3 3.5 -Post Debridement (cm) - Depth 0.6 1.0 1.2 -Total Square (Post) (cm) 11.55 11.55 12.25 -Area of Debridement (cm) - Length 3.5 3.5 3.5 -Area of Debridement (cm) - Width 3.3 3.3 3.5 -Total Square (Area) (cm) 11.55 11.55 12.25 -Tunneling No No No -Undermining/Tunneling No No No -Circular Undermining No No No -Wound/Ulcer Outcome Not Healed Not Healed Not Healed -Ulcer Cleansing Rinsed/ Rinsed/ Rinsed/ Irrigated with Irrigated with Irrigated with Saline Saline Saline -Foul Odor after Cleansing No No No -Bioengineered Tissue No No No -Bleeding Controlled with Pressure Pressure,Gel Pressure, Form SURGIFOAM -Treatment Response Procedure Procedure Procedure Tolerated Well Tolerated Well Tolerated Well -Offloading Yes -Type of Offloading Camwalker -Debridement - Subq, 1st 20sq cm Yes Yes -Debridement - Bone, 1st 20sq cm Yes Pain Scale: 0-10 Numeric Is Patient Pain Free? Yes Yes Yes 12/12/21 11:12 Wound Center Nurse 2 4-left plantar arch -Procedure Performed -Wound/Ulcer Outcome #1 left heel cluster -Time 11:12 -Correct Patient Yes -Correct Side, Site, Position Yes -Correct Procedure Yes -Procedure Performed Yes -Type of Procedure Debridement -Clinical Debridement Subcutaneous -Tissue Removed Subcutaneous -Post Debridement (cm) - Length 3.8 -Post Debridement (cm) - Width 3.2 -Post Debridement (cm) - Depth 0.8 -Total Square (Post) (cm) 12.16 -Area of Debridement (cm) - Length 3.8 -Area of Debridement (cm) - Width 3.2 -Total Square (Area) (cm) 12.16 -Tunneling No -Undermining/Tunneling No -Circular Undermining No -Wound/Ulcer Outcome Not Healed -Ulcer Cleansing Rinsed/ Irrigated with Saline -Foul Odor after Cleansing No -Bioengineered Tissue No -Bleeding Controlled with Pressure -Treatment Response Procedure Tolerated Well -Offloading Yes -Type of Offloading Camwalker -Debridement - Subq, 1st 20sq cm Yes -Debridement - Bone, 1st 20sq cm Pain Scale: 0-10 Numeric Is Patient Pain Free? Yes WC - Nurse 3 - General Ulcer D/C NN Start: 11/21/21 10:34 Freq: Status: Active Protocol: Activity Type Activity Date Activity User E-sign Co-sign Detail Recorded Client Recorded Date Recorded By Document 11/21/21 11:18 [facility] [id number] 11/21/21 11:19 [facility] Document 11/28/21 10:48 DL [id number] 11/28/21 10:52 DL Document 12/05/21 14:36 RB [id number] 12/05/21 14:38 RB Document 12/07/21 13:42 AK [id number] 12/07/21 13:44 [place] Document 12/12/21 11:32 DL [id number] 12/12/21 11:35 DL 11/21/21 11/28/21 12/05/21 11:18 10:48 14:36 Wound Care Nurse 3 #1 left heel cluster -Ulcer Cleansing Rinsed/ Rinsed/ Irrigated with Irrigated with Saline Saline -Foul Odor after Cleansing No No -Negative Pressure Wound Therapy -Primary Dressing Applied Aquacel AG 4x4 -Other Dressing Surgifoam today surgifoam applied per Dr Mandel left in place as ordered per Dr -Primary Dressing Covered/Secured with Dry Gauze & Dry Gauze & Dry Gauze,Dry Roll Gauze, Roll Gauze, Gauze & Roll Secured with Secured with Gauze,Secured Tape Tape with Tape -Other Covering HEEL HAT abd kerlix kevin -Aquacel AG 4x4 1 -Aquacel AG 2x2 Left -Compression Wrap Kevin Wrap -Stockings Treatment Response Procedure Procedure Tolerated Well Tolerated Well Pain Scale: 0-10 Numeric Is Patient Pain Free? Yes Yes Yes WC - Visit Discharge Discharge Condition Stable Stable Stable Ambulatory Status Wheelchair Wheelchair Transportation Private Auto Private Auto Medication Reconcilliation completed & No provided to patient/care provider Clinical Summary of Care Provided Yes Notes: Pt to leave surgifoa till Friday and changeto Aquacel Ag. Facility Type Home Health Home Health Orders Sent Yes 12/07/21 12/12/21 13:42 11:32 Wound Care Nurse 3 #1 left heel cluster -Ulcer Cleansing Rinsed/ Soap and Water Irrigated with Saline -Foul Odor after Cleansing No No -Negative Pressure Wound Therapy N/A -Primary Dressing Applied Aquacel AG 4x4 Aquacel AG 2x2 -Other Dressing ABD -Primary Dressing Covered/Secured with Dry Gauze & Dry Gauze & Roll Gauze, Roll Gauze, Secured with Secured with Tape Tape -Other Covering ABD/Nurses Hat -Aquacel AG 4x4 1 -Aquacel AG 2x2 1 Left -Compression Wrap Kevin Wrap Kevin Wrap -Stockings No Treatment Response Procedure Tolerated Well Pain Scale: 0-10 Numeric Is Patient Pain Free? Yes Yes WC - Visit Discharge Discharge Condition Stable Stable Ambulatory Status Wheelchair Wheelchair Transportation Private Auto Private Auto Medication Reconcilliation completed & Yes provided to patient/care provider Clinical Summary of Care Provided Yes Notes: Facility Type Orders Sent Assessment/Plan Assessment/Plan (1) Non-pressure chronic ulcer of left heel and midfoot with fat layer exposed: CODE(S): L97.422 - Non-pressure chronic ulcer of left heel and midfoot with fat layer exposed (2) Localized edema: CODE(S): R60.0 - Localized edema (3) Diabetes mellitus: CODE(S): E11.9 - Type 2 diabetes mellitus without complications (4) Type 2 diabetes mellitus with diabetic polyneuropathy: CODE(S): E11.42 - Type 2 diabetes mellitus with diabetic polyneuropathy QUALIFIERS: Diabetes mellitus intermission coordinator insulin use: with intermission coordinator use Qualified Code(s): E11.42 - Type 2 diabetes mellitus with diabetic polyneuropathy; Z79.4 - intermediate (current) use of insulin (5) Diabetic foot ulcer: CODE(S): E11.621 - Type 2 diabetes mellitus with foot ulcer; L97.509 - Non-pressure chronic ulcer of other part of unspecified foot with unspecified severity QUALIFIERS: Diabetic foot ulcer location: heel Diabetes mellitus type: type 2 Laterality: left Non-pressure ulcer stage: with fat layer exposed Qualified Code(s): E11.621 - Type 2 diabetes mellitus with foot ulcer; L97.422 - Non-pressure chronic ulcer of left heel and midfoot with fat layer exposed (6) Tobacco abuse: CODE(S): Z72.0 - Tobacco use (7) Cellulitis of left lower limb: CODE(S): L03.116 - Cellulitis of left lower limb (8) Chronic ulcer of left foot with necrosis of bone: CODE(S): L97.524 - Non-pressure chronic ulcer of other part of left foot with necrosis of bone (9) Foot osteomyelitis: CODE(S): M86.9 - Osteomyelitis, unspecified QUALIFIERS: Osteomyelitis type: other acute Laterality: left Qualified Code(s): M86.172 - Other acute osteomyelitis, left ankle and foot (10) Difficulty in walking: CODE(S): R26.2 - Difficulty in walking, not elsewhere classified (11) Left foot pain: CODE(S): M79.672 - Pain in left foot (12) DVT (deep venous thrombosis): CODE(S): I82.409 - Acute embolism and thrombosis of unspecified deep veins of unspecified lower extremity PLAN: Plan Patient seen and examined. I reviewed and discussed his case. Debridement was performed as noted in the clinical nursing panel. Dressing recommendation: Applied gel foam today. To proceed forward with EcoSurge Ag Friday and Friday. This was also washed with soap and water. Offloading: To maintain a strict nonweightbearing status to the ulcer to the foot. To use assistive walking device as well. He has a cam walker. Infection management: This culture results were reviewed with MRSA, Enterobacter, Enterococcus, and corynebacteria. He has osteomyelitis which was confirmed with bone biopsy sent to microbiology and pathology. It appears an extended course of linezolid is appropriate per infectious disease recommend ation orally. This was discussed with ID specialist and the patient. Lab trends will be followed weekly. Advance wound options: He has a status change now with new diagnosis of osteomyelitis. I recommend hyperbaric oxygen therapy if he is medically cleared to undergo such treatment. He reports he is available to come in 5 days a week for couple hours each day and he has anticipated reliable transportation. He is in the process of getting cleared for hyperbaric oxygen therapy and will start soon. He did have to have some additional cardiac tests performed to ensure safety. He did also see ENT as well. I recommend he proceed as tolerated and as planned to optimize his healing potential. He has an echocardiogram was completed and his EF is 65%. Glue Wheel Operator clearance was obtained and he is scheduled to start. He started sessions and was advised to continue. Patient relates he had follow-up appointment with his primary care provider, Priyanka Brown, and relates that she did not change any medication and stated he was doing okay. PCP is leaving the diabetes management up to his cross cut sawyer, Dr. Mykel Barraza. He was able to follow-up and recommendations were updated. An updated hemoglobin A1c order was provided because we are unable to obtain this in a timely manner from the primary care physician's office. this was 8.6%. To follow up with pain management. It is noted he is already on gabapentin, Percocet, and Tylenol. I do not recommend additional narcotic pain medication which she is requesting today. We discussed source of pain is likely from his infection and from pressure applied while walking on this gradual site now that his bone is exposed. Edema management: Medical management per primary care. To reduce salt in diet. Total contact cast will also aide in edema reduction if this considered upon continued foot stability and resolution of infection status. I only recommend reapplication after he has completed his acute deep venous thrombosis treatment. Arterial studies were reviewed. Showing likely adequate perfusion for healing. Right LAI is 0.99 and left 1.18. Right toe brachial index 0.76 and left 0.71. Referral to Dr. Campos for potential venous and arterial intervention was provided today. He went for consultationon 04-11-21. Will recheck duplex to make sure normal posterior tibial flow into the area of the wound. normal prior LAI noted. Host factors: His multiple comorbidities are noted including diabetes and smoking history. Also recommend improvement in nutritional status which involves taking in adequate protein and also focusing on eating 5-10 whole foods daily. Gait abnormality/walking difficulty: I recommend PT and OT intervention with his home health agency. A referral was provided previously. He is at risk for falling. He is fragile and has demonstrated progressive deterioration. All questions answered. He understands below-knee amputation is an option as well if he cannot keep pressure off the site, if pain becomes intolerable, and if he no longer is able to proceed with a comprehensive wound healing plan. He defers at this time. This was discussed at length today. The benefits and in dications of a below-knee amputation were reviewed. He would like to consider a referral to a doctor in the same healthcare system he attends in the [facility]. Patient to follow up in 1 week or call sooner if status worsening or if questions. He will follow-up on Friday for total contact cast evaluation and removal. I answered all of his questions. This note was generated with [employer] dictation software. It may contain incorrect words, spelling, and punctuation that were not noted in checking the note before signing.
[2021-12-13 08:01] LABS: Bedside Glucose 185 mg/dL (74-106)
--- NOTE | 2021-12-13 08:06 | HBO.PN.PCM_ITS ---
History of Present Illness Date of Service: 12/13/21 Chief Complaint: left heel History of Wound: Patient presents for chronic non healing wound to left plantar foot (heel, and recently healed ulcer at arch). A limb and life-threatening infection which required emergent surgical intervention on 05-29-2021. He has been demonstrating improvement with total contact cast applications however had recent deteriorization and now has exposed bone to the heel now with additional osteomyelitis. A culture demonstrated multi organism growth. 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 Raphael. He denies fever, chill, nausea, vomiting, pain, odor, redness. He is keeping weight off of his foot he reports. He has been cleared for hyperbaric oxygen therapy treatment for osteomyelitis and Acevedo grade 3 by medical physician and data processing control clerk. He had tubes placed in his ears and attended his first session this morning. He saw infectious disease specialist again recently and he continues to take antibiotics as advised. He wants to avoid PICC line placement and will proceed forward with an oral linezolid course. He continues on blood thinner due to his deep venous thrombosis. Subjective Subjective Progress: Today is the 2nd treatment of hyperbaric oxygen therapy. The patient is scheduled for 30 treatments total. Tolerance of hyperbaric oxygen therapy: Hyperbaric oxygen treatment was provided as per the facility's protocol at 2.0 ALE in 100% oxygen for 90 minutes, the patient was able to tolerate treatment. Upon emergence of the hyperbaric chamber, the patient's vital signs remained stable. Blood glucose levels documented elsewhere. Bilateral eustachian tubes intact. Objective Data Objective Data Vital Signs: Vital Signs Temp Pulse Resp BP O2 Del Method 97.6 F L 64 16 90/45 L Room Air 12/12/21 10:58 12/12/21 10:58 12/12/21 10:58 12/12/21 10:58 12/05/21 13:48 Oxygen Delivery Method Room Air Body Mass Index (BMI) 33.7 Lab / Micro Data Labs: Laboratory Results - last 24 hr 12/12/21 08:04: POC Glucose 163 H 12/12/21 10:26: POC Glucose 196 H 12/13/21 07:40: POC Glucose 185 H Exam Physical Exam Const alert, oriented x3 and no apparent distress HEENT HEENT Narrative: mildly erythematous TMs bilaterally without rupture or hemotympanum Psych mental status grossly normal, thought process normal, cooperative, affect normal and speech normal Nursing Assessment and Debridement Post-Debridement Measurements and Additional Note: Post-Debridement Measurements/Treatment WC - Nurse 1 - General Ulcer Assessment Start: 11/21/21 10:34 Freq: Status: Active Protocol: EVELYN Activity Type Activity Date Activity User E-sign Co-sign Detail Recorded Client Recorded Date Recorded By Document 12/12/21 10:53 ALEJANDRO [id number] 12/12/21 11:04 ALEJANDRO 12/12/21 10:53 WC - Today's Visit Information Type of service Follow-up Visit (Physician/STAPLE SIDE LASTER ) Arrival Mode Wheelchair Transfer Assistance None Patient Identification Verified (Name & Yes ) Patient Requires Transmission-Based No Precautions Height and Weight Body Mass Index (BMI) 33.7 BMI Classification Obese Vital Signs Temperature (97.8 F-99.1 F) 97 F L Temperature Source Temporal Pulse Rate (60-100) 59 L Pulse Location Monitor Respiratory Rate (12-18) 18 Respiratory rate source Observation Blood Pressure (90/60-120/80) 149/64 H Blood Pressure Mean (mm Hg) 92 Source Monitor Position Semi-Fowlers Blood Pressure Location Left Arm History Since Last Visit- (Skip if this is Patient's initial visit) Have you changed medications since your No last visit? Any new allergies or adverse reactions No Had a fall/change in ADL's that may No increase risk of falls Signs or symptoms of abuse and/or No neglect since last visit Have you been in the hospital since your No last visit? Has dressing in place as prescribed Yes Has compression in place as prescribed Yes Has offloadiing in place as prescribed Yes Experienced any changes in pain level or No management Left Footwear Removable Cast Walker/Walking Boot Pain Scale: 0-10 Numeric Is Patient Pain Free? No LLE -Description Sharp -Intensity 8 -Duration (hours) Acute -Pain Behavior Guarding -Pain Aggravating Factors ADL's -Alleviating Factors/Interventions Medication,None -Effectiveness of Alleviating Factor/ Minimally Intervention effective - Nurse 1 - General Ulcer Measurement Start: 11/21/21 10:34 Freq: Status: Active Protocol: Activity Type Activity Date Activity User E-sign Co-sign Detail Recorded Client Recorded Date Recorded By Document 12/12/21 10:53 ALEJANDRO [id number] 12/12/21 11:04 RB 12/12/21 10:53 Wound Center Nurse 1 #1 left heel cluster -Combined with other wound No -Current Size (cm) - Length 3.5 -Current Size (cm) - Width 3 -Current Size (cm) - Depth 0.9 -Total Square Cm 10.5 -Photo Taken Yes -Tunneling No -Undermining/Tunneling No -Circular Undermining No -Exudate Amt Large -Exudate Type Serosanguineous -Wound Margin Thickened & Rolled Under -Granulation Amt Medium (34-66%) -Granulation Quality Cecil-Bishop -Slough/Fibrin Yes -Necrosis Amt Large (67-100%) -Necrotic Tissue Type Adherent Slough -Structure Exposed N/A -Texture (Margaret-wound Skin Appearance) Callus -Moisture (Margaret-wound Skin Appearance) Assessed -Color (Margaret-wound Skin Appearance) Assessed -Temperature (Margaret-wound Skin No Abnormality Appearance) (Pt Warm) -Tenderness on Palpation (Margaret-wound No Skin Appearance) -Ulcer Cleansing Wound Cleanser -Foul Odor after Cleansing Yes -Anesthetic Used 5% Lidocaine Gel Left Calf (cm) 49.5 Left Ankle (cm) 29 WC - Nurse 2 - General Ulcer CM Notes Start: 11/21/21 10:34 Freq: Status: Active Protocol: Activity Type Activity Date Activity User E-sign Co-sign Detail Recorded Client Recorded Date Recorded By Document 12/12/21 11:12 DANIEL [id number] 12/12/21 11:14 DANIEL 12/12/21 11:12 Wound Center Nurse 2 #1 left heel cluster -Time 11:12 -Correct Patient Yes -Correct Side, Site, Position Yes -Correct Procedure Yes -Procedure Performed Yes -Type of Procedure Debridement -Clinical Debridement Subcutaneous -Tissue Removed Subcutaneous -Post Debridement (cm) - Length 3.8 -Post Debridement (cm) - Width 3.2 -Post Debridement (cm) - Depth 0.8 -Total Square (Post) (cm) 12.16 -Area of Debridement (cm) - Length 3.8 -Area of Debridement (cm) - Width 3.2 -Total Square (Area) (cm) 12.16 -Tunneling No -Undermining/Tunneling No -Circular Undermining No -Wound/Ulcer Outcome Not Healed -Ulcer Cleansing Rinsed/ Irrigated with Saline -Foul Odor after Cleansing No -Bioengineered Tissue No -Bleeding Controlled with Pressure -Treatment Response Procedure Tolerated Well -Offloading Yes -Type of Offloading Camwalker -Debridement - Subq, 1st 20sq cm Yes Pain Scale: 0-10 Numeric Is Patient Pain Free? Yes - Nurse 3 - General Ulcer D/C NN Start: 11/21/21 10:34 Freq: Status: Active Protocol: Activity Type Activity Date Activity User E-sign Co-sign Detail Recorded Client Recorded Date Recorded By Document 12/12/21 11:32 DL [id number] 12/12/21 11:35 DL 12/12/21 11:32 Wound Care Nurse 3 #1 left heel cluster -Ulcer Cleansing Soap and Water -Foul Odor after Cleansing No -Primary Dressing Applied Aquacel AG 2x2 -Primary Dressing Covered/Secured with Dry Gauze & Roll Gauze, Secured with Tape -Other Covering ABD/Nurses Hat -Aquacel AG 2x2 1 Left -Compression Wrap Kevin Wrap Treatment Response Procedure Tolerated Well Pain Scale: 0-10 Numeric Is Patient Pain Free? Yes - Visit Discharge Discharge Condition Stable Ambulatory Status Wheelchair Transportation Private Auto Assessment/Plan Assessment/Plan (1) CKD (chronic kidney disease), stage III: CODE(S): N18.30 - Chronic kidney disease, stage 3 unspecified (2) Foot osteomyelitis: CODE(S): M86.9 - Osteomyelitis, unspecified QUALIFIERS: Laterality: left Osteomyelitis type: other acute Qualified Code(s): M86.172 - Other acute osteomyelitis, left ankle and foot (3) Chronic ulcer of left foot with necrosis of bone: CODE(S): L97.524 - Non-pressure chronic ulcer of other part of left foot with necrosis of bone (4) Type 2 diabetes mellitus with diabetic polyneuropathy: CODE(S): E11.42 - Type 2 diabetes mellitus with diabetic polyneuropathy QUALIFIERS: Diabetes mellitus care home insulin use: with watermelon harvesting supervisor use Qualified Code(s): E11.42 - Type 2 diabetes mellitus with diabetic polyneuropathy; Z79.4 - skilled nursing (current) use of insulin (5) Diabetic foot ulcer: CODE(S): E11.621 - Type 2 diabetes mellitus with foot ulcer; L97.509 - Non-pressure chronic ulcer of other part of unspecified foot with unspecified severity QUALIFIERS: Diabetes mellitus type: type 2 Diabetic foot ulcer location: heel Laterality: left Non-pressure ulcer stage: with fat layer exposed Qualified Code(s): E11.621 - Type 2 diabetes mellitus with foot ulcer; L97.422 - Non-pressure chronic ulcer of left heel and midfoot with fat layer exposed PLAN: Plan The patient tolerated hyperbaric oxygen therapy well which will be continued as per his medical plan.
[2021-12-13 10:20] LABS: Bedside Glucose 165 mg/dL (74-106)
[2021-12-13 11:13] VITALS: BP 137/64; BP 146/89; PULSE 58; PULSE 63; RESP 16; RESP 18; TEMP 36.7
[2021-12-14 08:05] LABS: Bedside Glucose 177 mg/dL (74-106)
[2021-12-14 10:21] LABS: Bedside Glucose 151 mg/dL (74-106)
[2021-12-14 10:50] VITALS: BP 136/67; BP 147/77; PULSE 60; PULSE 64; RESP 16; RESP 17; TEMP 36.8
[2021-12-14 11:33] VITALS: BP 172/69; BMI 33.7
== END 2021-12-16 23:59 | disposition home or self-care (01) ==
LOC: WC 08:00
PROVIDERS: Referring Provider Podiatrist Foot & Ankle Surgery; Visit Provider Podiatrist
DX: E11.621 Type 2 diabetes mellitus with foot ulcer (principal); L97.422 Non-pressure chronic ulcer of left heel and midfoot with fat layer exposed; L97.522 Non-pressure chronic ulcer of other part of left foot with fat layer exposed; M86.172 Other acute osteomyelitis, left ankle and foot; E11.22 Type 2 diabetes mellitus with diabetic chronic kidney disease; E11.42 Type 2 diabetes mellitus with diabetic polyneuropathy; Z79.4 Long term (current) use of insulin; N18.30 Chronic kidney disease, stage 3 unspecified; L03.116 Cellulitis of left lower limb; Z72.0 Tobacco use; S93.492A Sprain of other ligament of left ankle, initial encounter; R60.0 Localized edema; R26.2 Difficulty in walking, not elsewhere classified; X58.XXXA Exposure to other specified factors, initial encounter
CPT/HCPCS: 11042; 11044; 29581; 82962; 99183; 99213; G0277; G0463

== ENCOUNTER → 2021-12-26 | Outpatient (CLI) | payer MEDICARE, BC, SELFPAY ==
[2021-12-26 13:16] LABS: Absolute Lymphocyte Count 2.63 X10^3/uL (0.83-4.51); Absolute Neutrophil Count 4.6 X10^3/uL (2.0-7.7); Basophil# 0.06 X10^3/uL; Basophil% 0.7 % (0-1); Eosinophils% 3.7 % (0-5); Hematocrit 43.3 % (40-54); Hemoglobin 13.8 g/dL (13.0-16.5); Lymphocyte # 2.63 X10^3/ul (0.83-4.51); Lymphocyte % 32.1 % (19-41); Mean Corp Hgb Conc 31.9 g/dL (32-36); Mean Corpuscular Hgb 26.2 pg (27.0-32.0); Mean Corpuscular Volume 82.3 fL (80-94); Mean Platelet Vol. 10.3 fl (6.2-12.0); Monocyte# 0.62 X10^3/uL; Monocyte% 7.6 % (0-10); NRBC Flagged by Analyzer 0 % (0-5); Neutrophil # 4.57 X10^3/uL (2.7-7.7); Neutrophil % 55.7 % (47-70); Platelet Count 127 K/mm3 (150-450); RBC Distribution Width CV 19.4 % (11.6-14.6); RBC Distribution Width SD 52.6 fl (35.1-43.9); Red Blood Count 5.26 M/mm3 (4.6-6.2); White Blood Count 8.2 K/mm3 (4.4-11.0)
[2021-12-26 13:36] LABS: Microalbumin:Creatinine Ratio 279.6 mg/g CRE (<30 mg/g CRE)
[2021-12-26 13:39] LABS: PTHIN 47.1 pg/mL (18.4-80.1)
[2021-12-26 13:44] LABS: Vitamin D,25 Hydroxy 55.9 ng/mL
[2021-12-26 13:47] LABS: ALB/GLOB Ratio 0.6 RATIO (0.9-2.4); AST(SGOT) 19 U/L (15-37); Alanine Aminotransfer ALT/SGPT 30 U/L (16-61); Alkaline Phosphatase 101 U/L (45-117); Anion Gap 4 (5-15); BUN 32 mg/dL (7-18); BUN/Creat Ratio 15.5 RATIO (10-20); Chloride 103 mmol/L (98-107); Creatinine, Serum 2.07 mg/dL (0.70-1.30); EST Glomerular Filtration Rate 34 mL/min (>60); Est Glom Filt Rate - Afr Amer 41 mL/min (>60); Globulin 4.8 g/dL (2.2-4.2); Glucose 78 mg/dL (74-106); Magnesium 2.2 mg/dL (1.6-2.6); Phosphorus 2.8 mg/dL (2.5-4.9); Potassium 4.3 mmol/L (3.5-5.1); Protein, Total 7.8 g/dL (6.4-8.2); Sodium Level 136 mmol/L (136-145)
== END | disposition home or self-care (01) ==
DX: L97.524 Non-pressure chronic ulcer of other part of left foot with necrosis of bone (principal); E11.621 Type 2 diabetes mellitus with foot ulcer; M86.9 Osteomyelitis, unspecified; E11.42 Type 2 diabetes mellitus with diabetic polyneuropathy; R60.0 Localized edema; R26.2 Difficulty in walking, not elsewhere classified; M79.672 Pain in left foot; E55.9 Vitamin D deficiency, unspecified; E87.5 Hyperkalemia
CPT/HCPCS: 11042; 36415; 80053; 82043; 82306; 82570; 83735; 83970; 84100; 84550; 85025

== ENCOUNTER 2022-01-16 09:15 | Outpatient (RCR) | payer MEDICARE, BC, SELFPAY ==
[2021-12-17 00:23] VITALS: BP 172/69; PULSE 64; RESP 17; TEMP 36.8; BMI 33.7
[2021-12-17 08:11] LABS: Bedside Glucose 203 mg/dL (74-106)
[2021-12-17 10:50] LABS: Bedside Glucose 192 mg/dL (74-106)
[2021-12-17 10:53] VITALS: BP 127/56; BP 140/78; PULSE 62; PULSE 70; RESP 16; RESP 17; TEMP 36.2
[2021-12-17 11:31] VITALS: BP 149/62; PULSE 66; TEMP 35.7; BMI 33.7
--- NOTE | 2021-12-17 13:21 | HBO.PN.PCM_ITS ---
History of Present Illness Date of Service: 12/17/21 Chief Complaint: left heel History of Wound: Patient presents for chronic non healing wound to left plantar foot (heel, and recently healed ulcer at arch). A limb and life-threatening infection which required emergent surgical intervention on 05-29-2021. He has been demonstrating improvement with total contact cast applications however had recent deteriorization and now has exposed bone to the heel now with additional osteomyelitis. A culture demonstrated multi organism growth. 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 Raphael. He denies fever, chill, nausea, vomiting, pain, odor, redness. He is keeping weight off of his foot he reports. He has been cleared for hyperbaric oxygen therapy treatment for osteomyelitis and Acevedo grade 3 by medical physician and commercial collector. He had tubes placed in his ears and attended his first session this morning. He saw infectious disease specialist again recently and he continues to take antibiotics as advised. He wants to avoid PICC line placement and will proceed forward with an oral linezolid course. He continues on blood thinner due to his deep venous thrombosis. Progress of Wound: Today is the 4th treatment of hyperbaric oxygen therapy.? The patient is scheduled for 30 treatments total. Subjective Subjective Tolerance of hyperbaric oxygen therapy: Hyperbaric oxygen treatment was provided as per the facility's protocol at 2.0 ALE in 100% oxygen for 90 minutes, the patient was able to tolerate treatment.? Upon emergence of the hyperbaric chamber, the patient's vital signs remained stable.? Blood glucose levels documented elsewhere.? Bilateral eustachian tubes intact. Objective Data Objective Data Vital Signs: Vital Signs Temp Pulse Resp BP 96.3 F L 66 17 149/62 H 12/17/21 11:31 12/17/21 11:31 12/17/21 10:53 12/17/21 11:31 Body Mass Index (BMI) 33.7 Lab / Micro Data Labs: Laboratory Results - last 24 hr 12/17/21 07:50: POC Glucose 203 H 12/17/21 10:29: POC Glucose 192 H Exam Physical Exam Const alert, oriented x3 and no apparent distress General Appearance: cooperative HEENT normocephalic Eyes Eyes Narrative: Bilateral ear tubes in place. Resp normal respiratory effort and no use of accessory muscles Auscultation: wheezes scattered wheezes and throughout Cardio regular rate and regular rhythm Psych affect normal Nursing Assessment and Debridement Post-Debridement Measurements and Additional Note: Post-Debridement Measurements/Treatment - Nurse 1 - General Ulcer Assessment Start: 12/17/21 10:53 Freq: Status: Active Protocol: EVELYN Activity Type Activity Date Activity User E-sign Co-sign Detail Recorded Client Recorded Date Recorded By Document 12/17/21 11:31 AK [id number] 12/17/21 11:34 DAVID 12/17/21 11:31 WC - Today's Visit Information Type of service Nurse-only Visit Arrival Mode Wheelchair Patient Identification Verified (Name & Yes ) Patient Requires Transmission-Based No Precautions Safety Precautions NA Height and Weight Body Mass Index (BMI) 33.7 BMI Classification Obese Vital Signs Temperature (97.8 F-99.1 F) 96.3 F L Temperature Source Temporal Pulse Rate (60-100) 66 Pulse Location Monitor Blood Pressure (90/60-120/80) 149/62 H Blood Pressure Mean (mm Hg) 91 Source Monitor History Since Last Visit- (Skip if this is Patient's initial visit) Have you changed medications since your No last visit? Any new allergies or adverse reactions No Had a fall/change in ADL's that may No increase risk of falls Signs or symptoms of abuse and/or No neglect since last visit Have you been in the hospital since your No last visit? Has dressing in place as prescribed Yes Has compression in place as prescribed Yes Has offloadiing in place as prescribed Yes Experienced any changes in pain level or No management Left Footwear Removable Cast Walker/Walking Boot Right Footwear Regular Shoe Pain Scale: 0-10 Numeric Is Patient Pain Free? Yes - Nurse 3 - General Ulcer D/C NN Start: 12/17/21 10:53 Freq: Status: Active Protocol: Activity Type Activity Date Activity User E-sign Co-sign Detail Recorded Client Recorded Date Recorded By Document 12/17/21 11:31 DAVID [id number] 12/17/21 11:34 DAVID 12/17/21 11:31 Vital Signs Temperature (97.8 F-99.1 F) 96.3 F L Temperature Source Temporal Pulse Rate (60-100) 66 Pulse Location Monitor Blood Pressure (90/60-120/80) 149/62 H Blood Pressure Mean (mm Hg) 91 Source Monitor Pain Scale: 0-10 Numeric Is Patient Pain Free? Yes Wound Care Nurse 3 #1 left heel cluster -Ulcer Cleansing Soap and Water -Foul Odor after Cleansing No -Negative Pressure Wound Therapy N/A -Primary Dressing Applied Aquacel AG 4x4, Optilok 6.5x10 -Other Dressing 2 ABD -Aquacel AG 4x4 1 -Optilok 6.5x10 1 Left -Lotion applied to leg before No compression wrap -Compression Wrap Kevin Wrap -Stockings No WC - Visit Discharge Discharge Condition Stable Ambulatory Status Wheelchair Transportation Private Auto Medication Reconcilliation completed & Yes provided to patient/care provider Clinical Summary of Care Provided Yes Charges/Coding Wound Center CF Procedures HBO Supervision: [id number] Hyperbaric Oxygen; supervision Assessment/Plan Assessment/Plan (1) Osteomyelitis: CODE(S): M86.9 - Osteomyelitis, unspecified (2) Foot osteomyelitis: CODE(S): M86.9 - Osteomyelitis, unspecified QUALIFIERS: Osteomyelitis type: other acute Laterality: left Qualified Code(s): M86.172 - Other acute osteomyelitis, left ankle and foot (3) Chronic ulcer of left foot with necrosis of bone: CODE(S): L97.524 - Non-pressure chronic ulcer of other part of left foot with necrosis of bone (4) Type 2 diabetes mellitus with diabetic polyneuropathy: CODE(S): E11.42 - Type 2 diabetes mellitus with diabetic polyneuropathy QUALIFIERS: Diabetes mellitus mcc insulin use: with terminal supervisor use Qualified Code(s): E11.42 - Type 2 diabetes mellitus with diabetic polyneuropathy; Z79.4 - watermelon harvesting supervisor (current) use of insulin (5) Diabetic foot ulcer: CODE(S): E11.621 - Type 2 diabetes mellitus with foot ulcer; L97.509 - Non-pressure chronic ulcer of other part of unspecified foot with unspecified severity QUALIFIERS: Diabetic foot ulcer location: heel Diabetes mellitus type: type 2 Laterality: left Non-pressure ulcer stage: with fat layer exposed Qualified Code(s): E11.621 - Type 2 diabetes mellitus with foot ulcer; L97.422 - Non-pressure chronic ulcer of left heel and midfoot with fat layer exposed (6) Bilateral edema of lower extremity: CODE(S): R60.0 - Localized edema PLAN: Plan The patient tolerated hyperbaric oxygen therapy well which will be continued as per his medical plan.
[2021-12-18 08:16] LABS: Bedside Glucose 223 mg/dL (74-106)
[2021-12-18 08:37] VITALS: BP 132/63; BP 135/63; PULSE 73; PULSE 80; RESP 17; TEMP 36.3
--- NOTE | 2021-12-18 15:15 | PCM.HBO.PN ---
History of Present Illness Date of Service: 12/18/21 Chief Complaint: left heel History of Wound: Patient presents for chronic non healing wound to left plantar foot (heel, and recently healed ulcer at arch). A limb and life-threatening infection which required emergent surgical intervention on 05-29-2021. He has been demonstrating improvement with total contact cast applications however had recent deteriorization and now has exposed bone to the heel now with additional osteomyelitis. A culture demonstrated multi organism growth. 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 Raphael. He denies fever, chill, nausea, vomiting, pain, odor, redness. He is keeping weight off of his foot he reports. He has been cleared for hyperbaric oxygen therapy treatment for osteomyelitis and Acevedo grade 3 by medical physician and interactive graphic designer. He had tubes placed in his ears and attended his first session this morning. He saw infectious disease specialist again recently and he continues to take antibiotics as advised. He wants to avoid PICC line placement and will proceed forward with an oral linezolid course. He continues on blood thinner due to his deep venous thrombosis. Progress of Wound: Today is the 5th treatment of hyperbaric oxygen therapy.? The patient is scheduled for 30 treatments total. Subjective Subjective Tolerance of hyperbaric oxygen therapy: Hyperbaric oxygen treatment was provided as per the facility's protocol at 2.0 ALE in 100% oxygen for 90 minutes, the patient was able to tolerate treatment.? Upon emergence of the hyperbaric chamber, the patient's vital signs remained stable.? Blood glucose levels documented elsewhere.? Bilateral eustachian tubes intact. Objective Data Objective Data Vital Signs: Vital Signs Temp Pulse Resp BP 97.3 F L 73 17 132/63 H 12/18/21 08:37 12/18/21 08:37 12/18/21 08:37 12/18/21 08:37 Body Mass Index (BMI) 33.7 Lab / Micro Data Labs: Laboratory Results - last 24 hr 12/18/21 07:54: POC Glucose 223 H Exam Physical Exam Const alert, oriented x3 and no apparent distress General Appearance: cooperative HEENT normocephalic Eyes Eyes Narrative: Bilateral ear tubes in place. Resp normal respiratory effort and no use of accessory muscles Auscultation: wheezes scattered wheezes and throughout Cardio regular rate and regular rhythm Psych affect normal Nursing Assessment and Debridement Post-Debridement Measurements and Additional Note: Post-Debridement Measurements/Treatment JANESSA - Nurse 1 - General Ulcer Assessment Start: 12/17/21 10:53 Freq: Status: Active Protocol: EVELYN Activity Type Activity Date Activity User E-sign Co-sign Detail Recorded Client Recorded Date Recorded By Document 12/17/21 11:31 DAVID [id number] 12/17/21 11:34 AK 12/17/21 11:31 WC - Today's Visit Information Type of service Nurse-only Visit Arrival Mode Wheelchair Patient Identification Verified (Name & Yes ) Patient Requires Transmission-Based No Precautions Safety Precautions NA Height and Weight Body Mass Index (BMI) 33.7 BMI Classification Obese Vital Signs Temperature (97.8 F-99.1 F) 96.3 F L Temperature Source Temporal Pulse Rate (60-100) 66 Pulse Location Monitor Blood Pressure (90/60-120/80) 149/62 H Blood Pressure Mean (mm Hg) 91 Source Monitor History Since Last Visit- (Skip if this is Patient's initial visit) Have you changed medications since your No last visit? Any new allergies or adverse reactions No Had a fall/change in ADL's that may No increase risk of falls Signs or symptoms of abuse and/or No neglect since last visit Have you been in the hospital since your No last visit? Has dressing in place as prescribed Yes Has compression in place as prescribed Yes Has offloadiing in place as prescribed Yes Experienced any changes in pain level or No management Left Footwear Removable Cast Walker/Walking Boot Right Footwear Regular Shoe Pain Scale: 0-10 Numeric Is Patient Pain Free? Yes JANESSA - Nurse 3 - General Ulcer D/C NN Start: 12/17/21 10:53 Freq: Status: Active Protocol: Activity Type Activity Date Activity User E-sign Co-sign Detail Recorded Client Recorded Date Recorded By Document 12/17/21 11:31 AK [id number] 12/17/21 11:34 AK Document 12/18/21 10:40 DL [id number] 12/18/21 10:43 DL 12/17/21 12/18/21 11:31 10:40 Vital Signs Temperature (97.8 F-99.1 F) 96.3 F L Temperature Source Temporal Pulse Rate (60-100) 66 Pulse Location Monitor Blood Pressure (90/60-120/80) 149/62 H Blood Pressure Mean (mm Hg) 91 Source Monitor Pain Scale: 0-10 Numeric Is Patient Pain Free? Yes Yes Wound Care Nurse 3 #1 left heel cluster -Ulcer Cleansing Soap and Water Soap and Water -Foul Odor after Cleansing No No -Negative Pressure Wound Therapy N/A -Primary Dressing Applied Aquacel AG 4x4, Aquacel AG 4x4 Optilok 6.5x10 -Other Dressing 2 ABD -Primary Dressing Covered/Secured with Dry Gauze & Roll Gauze, Secured with Tape -Other Covering Nurse Hat -Aquacel AG 4x4 1 1 -Optilok 6.5x10 1 Left -Lotion applied to leg before No compression wrap -Multi-Layered Wrap Application Multi-Layer Comp - Left ($) -Compression Wrap Kevin Wrap -Stockings No Treatment Response Procedure Tolerated Well WC - Visit Discharge Discharge Condition Stable Stable Ambulatory Status Wheelchair Wheelchair Transportation Private Auto Private Auto Medication Reconcilliation completed & Yes provided to patient/care provider Clinical Summary of Care Provided Yes Notes: Dressing applied per Jakob Mason LPN. Nurse Visit today after HBO . Charges/Coding Wound Center CF Procedures HBO Supervision: [id number] Hyperbaric Oxygen; supervision Assessment/Plan Assessment/Plan (1) Osteomyelitis: CODE(S): M86.9 - Osteomyelitis, unspecified (2) Foot osteomyelitis: CODE(S): M86.9 - Osteomyelitis, unspecified QUALIFIERS: Osteomyelitis type: other acute Laterality: left Qualified Code(s): M86.172 - Other acute osteomyelitis, left ankle and foot (3) Chronic ulcer of left foot with necrosis of bone: CODE(S): L97.524 - Non-pressure chronic ulcer of other part of left foot with necrosis of bone (4) Type 2 diabetes mellitus with diabetic polyneuropathy: CODE(S): E11.42 - Type 2 diabetes mellitus with diabetic polyneuropathy QUALIFIERS: Diabetes mellitus wind site manager insulin use: with longterm use Qualified Code(s): E11.42 - Type 2 diabetes mellitus with diabetic polyneuropathy; Z79.4 - child care cook (current) use of insulin (5) Diabetic foot ulcer: CODE(S): E11.621 - Type 2 diabetes mellitus with foot ulcer; L97.509 - Non-pressure chronic ulcer of other part of unspecified foot with unspecified severity QUALIFIERS: Diabetic foot ulcer location: heel Diabetes mellitus type: type 2 Laterality: left Non-pressure ulcer stage: with fat layer exposed Qualified Code(s): E11.621 - Type 2 diabetes mellitus with foot ulcer; L97.422 - Non-pressure chronic ulcer of left heel and midfoot with fat layer exposed (6) Bilateral edema of lower extremity: CODE(S): R60.0 - Localized edema PLAN: Plan The patient tolerated hyperbaric oxygen therapy well which will be continued as per his medical plan.
[2021-12-19 08:20] LABS: Bedside Glucose 203 mg/dL (74-106)
[2021-12-19 09:20] VITALS: BP 139/59; BP 147/72; PULSE 65; PULSE 68; RESP 17; TEMP 36.3
[2021-12-19 10:20] LABS: Bedside Glucose 178 mg/dL (74-106)
[2021-12-19 10:21] VITALS: BMI 33.7
--- NOTE | 2021-12-19 11:00 | HBO.PN.PCM_ITS ---
History of Present Illness Date of Service: 12/19/21 Chief Complaint: left heel History of Wound: Patient presents for chronic non healing wound to left plantar foot (heel, and recently healed ulcer at arch). A limb and life-threatening infection which required emergent surgical intervention on 05-29-2021. He has been demonstrating improvement with total contact cast applications however had recent deteriorization and now has exposed bone to the heel now with additional osteomyelitis. A culture demonstrated multi organism growth. 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 Raphael. He denies fever, chill, nausea, vomiting, pain, odor, redness. He is keeping weight off of his foot he reports. He has been cleared for hyperbaric oxygen therapy treatment for osteomyelitis and Acevedo grade 3 by medical physician and flooring professional. He had tubes placed in his ears and attended his first session this morning. He saw infectious disease specialist again recently and he continues to take antibiotics as advised. He wants to avoid PICC line placement and will proceed forward with an oral linezolid course. He continues on blood thinner due to his deep venous thrombosis. Progress of Wound: Today is the 6th treatment of hyperbaric oxygen therapy.? The patient is scheduled for 30 treatments total. Subjective Subjective Patient has no concerns Objective Data Objective Data Tolerating HBO treatments well with no side effects Vital Signs: Vital Signs Temp Pulse Resp BP 97.3 F L 65 17 139/59 H 12/19/21 09:20 12/19/21 09:20 12/19/21 09:20 12/19/21 09:20 Body Mass Index (BMI) 33.7 Lab / Micro Data Labs: Laboratory Results - last 24 hr 12/19/21 07:59: POC Glucose 203 H 12/19/21 10:03: POC Glucose 178 H Exam Physical Exam Const alert, oriented x3 and no apparent distress General Appearance: cooperative HEENT normocephalic Eyes Eyes Narrative: Bilateral ear tubes in place. Resp normal respiratory effort and no use of accessory muscles Auscultation: wheezes scattered wheezes and throughout Cardio regular rate and regular rhythm Psych affect normal Nursing Assessment and Debridement Post-Debridement Measurements and Additional Note: Post-Debridement Measurements/Treatment JANESSA - Nurse 1 - General Ulcer Assessment Start: 12/17/21 10:53 Freq: Status: Active Protocol: EVELYN Activity Type Activity Date Activity User E-sign Co-sign Detail Recorded Client Recorded Date Recorded By Document 12/17/21 11:31 AK [id number] 12/17/21 11:34 AK Document 12/19/21 10:21 DL [id number] 12/19/21 10:27 DL 12/17/21 12/19/21 11:31 10:21 - Today's Visit Information Type of service Nurse-only Follow-up Visit Visit (Physician/CONGRESSIONAL AIDE ) Arrival Mode Wheelchair Wheelchair Transfer Assistance None Patient Identification Verified (Name & Yes Yes ) Patient Requires Transmission-Based No No Precautions Safety Precautions NA Height and Weight Body Mass Index (BMI) 33.7 33.7 BMI Classification Obese Obese Vital Signs Temperature (97.8 F-99.1 F) 96.3 F L Temperature Source Temporal Pulse Rate (60-100) 66 Pulse Location Monitor Blood Pressure (90/60-120/80) 149/62 H Blood Pressure Mean (mm Hg) 91 Source Monitor Comment completed HBO this am History Since Last Visit- (Skip if this is Patient's initial visit) Have you changed medications since your No No last visit? Any new allergies or adverse reactions No No Had a fall/change in ADL's that may No No increase risk of falls Signs or symptoms of abuse and/or No No neglect since last visit Have you been in the hospital since your No No last visit? Has dressing in place as prescribed Yes Yes Has compression in place as prescribed Yes Yes Has offloadiing in place as prescribed Yes Yes Experienced any changes in pain level or No No management Left Footwear Removable Cast Walker/Walking Boot Right Footwear Regular Shoe Pain Scale: 0-10 Numeric Is Patient Pain Free? Yes Yes - Nurse 1 - General Ulcer Measurement Start: 12/17/21 10:53 Freq: Status: Active Protocol: Activity Type Activity Date Activity User E-sign Co-sign Detail Recorded Client Recorded Date Recorded By Document 12/19/21 10:21 DL [id number] 12/19/21 10:27 DL 12/19/21 10:21 Wound Center Nurse 1 #1 left heel cluster -Current Size (cm) - Length 4 -Current Size (cm) - Width 3.6 -Current Size (cm) - Depth 1 -Total Square Cm 14.4 -Photo Taken Yes -Undermining/Tunneling Starts (O'clock 7 ) -Undermining/Tunneling Ends (O'clock) 11 -Maximum Distance (cm) 1.3 -Undermining/Tunneling Starts #2 (O' 1 clock) -Undermining/Tunneling Ends #2 (O' 4 clock) -Maximum Distance #2 (cm) 0.2 -Exudate Amt Medium -Exudate Type Serosanguineous -Wound Margin Thickened -Granulation Amt None Present (0 %) -Necrosis Amt Large (67-100%) -Necrotic Tissue Type Adherent Slough -Texture (Margaret-wound Skin Appearance) Callus -Moisture (Margaret-wound Skin Appearance) Maceration -Color (Margaret-wound Skin Appearance) Hemosiderin Staining -Temperature (Margaret-wound Skin No Abnormality Appearance) (Pt Warm) -Tenderness on Palpation (Margaret-wound No Skin Appearance) -Ulcer Cleansing Soap and Water -Foul Odor after Cleansing No -Anesthetic Used 5% Lidocaine Gel WC - Nurse 2 - General Ulcer CM Notes Start: 12/17/21 10:53 Freq: Status: Active Protocol: Activity Type Activity Date Activity User E-sign Co-sign Detail Recorded Client Recorded Date Recorded By Document 12/19/21 10:49 DANIEL [id number] 12/19/21 10:52 DANIEL 12/19/21 10:49 Wound Center Nurse 2 -Time 10:51 -Correct Patient Yes -Correct Side, Site, Position Yes -Correct Procedure Yes -Procedure Performed Yes -Type of Procedure Debridement -Clinical Debridement Subcutaneous -Tissue Removed Subcutaneous -Post Debridement (cm) - Length 4.0 -Post Debridement (cm) - Width 3.7 -Post Debridement (cm) - Depth 0.9 -Total Square (Post) (cm) 14.80 -Area of Debridement (cm) - Length 4.0 -Area of Debridement (cm) - Width 3.7 -Total Square (Area) (cm) 14.80 -Tunneling No -Undermining/Tunneling No -Circular Undermining No -Wound/Ulcer Outcome Not Healed -Ulcer Cleansing Rinsed/ Irrigated with Saline -Foul Odor after Cleansing No -Bioengineered Tissue No -Bleeding Controlled with Pressure -Treatment Response Procedure Tolerated Well -Offloading Yes -Type of Offloading Camwalker -Debridement - Subq, 1st 20sq cm Yes Pain Scale: 0-10 Numeric Is Patient Pain Free? Yes WC - Nurse 3 - General Ulcer D/C NN Start: 12/17/21 10:53 Freq: Status: Active Protocol: Activity Type Activity Date Activity User E-sign Co-sign Detail Recorded Client Recorded Date Recorded By Document 12/17/21 11:31 AK [id number] 12/17/21 11:34 AK Document 12/18/21 10:40 DL [id number] 12/18/21 10:43 DL 12/17/21 12/18/21 11:31 10:40 Vital Signs Temperature (97.8 F-99.1 F) 96.3 F L Temperature Source Temporal Pulse Rate (60-100) 66 Pulse Location Monitor Blood Pressure (90/60-120/80) 149/62 H Blood Pressure Mean (mm Hg) 91 Source Monitor Pain Scale: 0-10 Numeric Is Patient Pain Free? Yes Yes Wound Care Nurse 3 #1 left heel cluster -Ulcer Cleansing Soap and Water Soap and Water -Foul Odor after Cleansing No No -Negative Pressure Wound Therapy N/A -Primary Dressing Applied Aquacel AG 4x4, Aquacel AG 4x4 Optilok 6.5x10 -Other Dressing 2 ABD -Primary Dressing Covered/Secured with Dry Gauze & Roll Gauze, Secured with Tape -Other Covering Nurse Hat -Aquacel AG 4x4 1 1 -Optilok 6.5x10 1 Left -Lotion applied to leg before No compression wrap -Multi-Layered Wrap Application Multi-Layer Multi-Layer Comp - Left ($) Comp - Left ($) -Compression Wrap Kevin Wrap -Stockings No Treatment Response Procedure Tolerated Well WC - Visit Discharge Discharge Condition Stable Stable Ambulatory Status Wheelchair Wheelchair Transportation Private Auto Private Auto Medication Reconcilliation completed & Yes provided to patient/care provider Clinical Summary of Care Provided Yes Notes: Dressing applied per Jakob Mason LPN. Nurse Visit today after HBO . Assessment/Plan Assessment/Plan (1) Osteomyelitis: CODE(S): M86.9 - Osteomyelitis, unspecified (2) Foot osteomyelitis: CODE(S): M86.9 - Osteomyelitis, unspecified QUALIFIERS: Osteomyelitis type: other acute Laterality: left Qualified Code(s): M86.172 - Other acute osteomyelitis, left ankle and foot (3) Chronic ulcer of left foot with necrosis of bone: CODE(S): L97.524 - Non-pressure chronic ulcer of other part of left foot with necrosis of bone (4) Type 2 diabetes mellitus with diabetic polyneuropathy: CODE(S): E11.42 - Type 2 diabetes mellitus with diabetic polyneuropathy QUALIFIERS: Diabetes mellitus sales and retail management recruiter insulin use: with sales and retail management recruiter use Qualified Code(s): E11.42 - Type 2 diabetes mellitus with diabetic polyneuropathy; Z79.4 - halfway (current) use of insulin (5) Diabetic foot ulcer: CODE(S): E11.621 - Type 2 diabetes mellitus with foot ulcer; L97.509 - Non-pressure chronic ulcer of other part of unspecified foot with unspecified severity QUALIFIERS: Diabetic foot ulcer location: heel Diabetes mellitus type: type 2 Laterality: left Non-pressure ulcer stage: with fat layer exposed Qualified Code(s): E11.621 - Type 2 diabetes mellitus with foot ulcer; L97.422 - Non-pressure chronic ulcer of left heel and midfoot with fat layer exposed (6) Bilateral edema of lower extremity: CODE(S): R60.0 - Localized edema PLAN: Plan The patient tolerated hyperbaric oxygen therapy well which will be continued as per his medical plan.
--- NOTE | 2021-12-19 11:24 | PN.PCM_ITS ---
History of Present Illness Date of Service: 12/19/21 Chief Complaint: left heel History of Wound: Patient presents for chronic non healing wound to left plantar foot (heel, and recently healed ulcer at arch). A limb and life-threatening infection which required emergent surgical intervention on 05-29-2021. He has been demonstrating improvement with total contact cast applications however had recent deteriorization and now has exposed bone to the heel now with additional osteomyelitis. A culture demonstrated multi organism growth. 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 Raphael. He denies fever, chill, nausea, vomiting, pain, odor, redness. He is keeping weight off of his foot he reports. He has been cleared for hyperbaric oxygen therapy treatment for osteomyelitis and Acevedo grade 3 by medical physician and [employer] consultant. He had tubes placed in his ears and continues with hyperbaric oxygen therapy sessions. He saw infectious disease specialist again recently and he continues to take antibiotics as advised. He wants to avoid PICC line placement and will proceed forward with an oral linezolid course. He continues on blood thinner due to his deep venous thrombosis. He also has help safely trimming his long and thick toenails which she is unable to perform on his own. He has neuropathy with rest paresthesias fluctuating edema and is at risk for continued ulcer formation. Progress of Wound: Improving Objective Data Objective Data Vital Signs: Vital Signs Temp Pulse Resp BP 97.3 F L 65 17 139/59 H 12/19/21 09:20 12/19/21 09:20 12/19/21 09:20 12/19/21 09:20 Body Mass Index (BMI) 33.7 Lab / Micro Data Labs: Laboratory Results - last 24 hr 12/19/21 07:59: POC Glucose 203 H 12/19/21 10:03: POC Glucose 178 H Physical Exam Narrative Const alert and no apparent distress General Appearance: cooperative and comfortable Extremity There is diffuse left foot/ankle and leg swelling. Left foot s/p debridement to arch and heel, tissues are healthy and viable, granular. Healed arch with full epithelialization. Positive probe to bone continued without loose fragments today. The bone is hard. There is peripheral granulation tissue and minimal peripheral callus also. There is no streaking or odor, compartments remain soft to palpate, there is no fluctuance or bogginess on palpation, no drainage, no visible abscess, no cellulitis, no blistering present. Hematogenous / serosanguineous drainage only upon debridement. Periwound moisture and maceration has resolved. Lack of normal epicritic sensation pathic status via light touch. Pain with manipulation and heel compression consistent prior visits normal capillary refill, no acute ischemic skin changes noted, normal temperature bilateral. Long thick toenails with subungual debris bilateral 2, 3, 4, 5 and left first. Const oriented x3 General Appearance: cooperative Extremity Left Lower Extremity: lower leg Skin Skin Narrative: Wounds left heel osteomyelitis Wound Narrative: Neuro Neuro Narrative: Debridement Note Debridement Note Wound debrided: left heel Laterality: Left Wound Grade/Stage: 3 Type of Debridement: Excisional debridement Anesthesia Used: 4% Lidocaine Solution Depth: in the subcutaneous layer, to bone (heel) and - (misonic ultrasound debridement) Percentage of wound debrided: 100 Instrument Used: #15 blade Tissue Removed: fibrous, devitalized subcutaneous, biofilm, slough Severity: Fat Layer Exposed Amount of bleeding with debridement: Mild Bleeding Controlled with: Pressure Patient tolerated procedure: Patient tolerated procedure well Post-Debridement Measurements and Additional Note: Post-Debridement Measurements/Treatment - Nurse 1 - General Ulcer Assessment Start: 12/17/21 10:53 Freq: Status: Active Protocol: [email or web address] Activity Type Activity Date Activity User E-sign Co-sign Detail Recorded Client Recorded Date Recorded By Document 12/17/21 11:31 AK [id number] 12/17/21 11:34 AK Document 12/19/21 10:21 DL [id number] 12/19/21 10:27 DL 12/17/21 12/19/21 11:31 10:21 - Today's Visit Information Type of service Nurse-only Follow-up Visit Visit (Physician/TOOL MAKER BENCH ) Arrival Mode Wheelchair Wheelchair Transfer Assistance None Patient Identification Verified (Name & Yes Yes ) Patient Requires Transmission-Based No No Precautions Safety Precautions NA Height and Weight Body Mass Index (BMI) 33.7 33.7 BMI Classification Obese Obese Vital Signs Temperature (97.8 F-99.1 F) 96.3 F L Temperature Source Temporal Pulse Rate (60-100) 66 Pulse Location Monitor Blood Pressure (90/60-120/80) 149/62 H Blood Pressure Mean (mm Hg) 91 Source Monitor Comment completed HBO this am History Since Last Visit- (Skip if this is Patient's initial visit) Have you changed medications since your No No last visit? Any new allergies or adverse reactions No No Had a fall/change in ADL's that may No No increase risk of falls Signs or symptoms of abuse and/or No No neglect since last visit Have you been in the hospital since your No No last visit? Has dressing in place as prescribed Yes Yes Has compression in place as prescribed Yes Yes Has offloadiing in place as prescribed Yes Yes Experienced any changes in pain level or No No management Left Footwear Removable Cast Walker/Walking Boot Right Footwear Regular Shoe Pain Scale: 0-10 Numeric Is Patient Pain Free? Yes Yes WC - Nurse 1 - General Ulcer Measurement Start: 12/17/21 10:53 Freq: Status: Active Protocol: Activity Type Activity Date Activity User E-sign Co-sign Detail Recorded Client Recorded Date Recorded By Document 12/19/21 10:21 DL [id number] 12/19/21 10:27 DL 12/19/21 10:21 Wound Center Nurse 1 #1 left heel cluster -Current Size (cm) - Length 4 -Current Size (cm) - Width 3.6 -Current Size (cm) - Depth 1 -Total Square Cm 14.4 -Photo Taken Yes -Undermining/Tunneling Starts (O'clock 7 ) -Undermining/Tunneling Ends (O'clock) 11 -Maximum Distance (cm) 1.3 -Undermining/Tunneling Starts #2 (O' 1 clock) -Undermining/Tunneling Ends #2 (O' 4 clock) -Maximum Distance #2 (cm) 0.2 -Exudate Amt Medium -Exudate Type Serosanguineous -Wound Margin Thickened -Granulation Amt None Present (0 %) -Necrosis Amt Large (67-100%) -Necrotic Tissue Type Adherent Slough -Texture (Margaret-wound Skin Appearance) Callus -Moisture (Margaret-wound Skin Appearance) Maceration -Color (Margaret-wound Skin Appearance) Hemosiderin Staining -Temperature (Margaret-wound Skin No Abnormality Appearance) (Pt Warm) -Tenderness on Palpation (Margaret-wound No Skin Appearance) -Ulcer Cleansing Soap and Water -Foul Odor after Cleansing No -Anesthetic Used 5% Lidocaine Gel WC - Nurse 2 - General Ulcer CM Notes Start: 08/01/22 10:53 Freq: Status: Active Protocol: Activity Type Activity Date Activity User E-sign Co-sign Detail Recorded Client Recorded Date Recorded By Document 12/19/21 10:49 [id number] 12/19/21 10:52 DANIEL 12/19/21 10:49 Wound Center Nurse 2 -Time 10:51 -Correct Patient Yes -Correct Side, Site, Position Yes -Correct Procedure Yes -Procedure Performed Yes -Type of Procedure Debridement -Clinical Debridement Subcutaneous -Tissue Removed Subcutaneous -Post Debridement (cm) - Length 4.0 -Post Debridement (cm) - Width 3.7 -Post Debridement (cm) - Depth 0.9 -Total Square (Post) (cm) 14.80 -Area of Debridement (cm) - Length 4.0 -Area of Debridement (cm) - Width 3.7 -Total Square (Area) (cm) 14.80 -Tunneling No -Undermining/Tunneling No -Circular Undermining No -Wound/Ulcer Outcome Not Healed -Ulcer Cleansing Rinsed/ Irrigated with Saline -Foul Odor after Cleansing No -Bioengineered Tissue No -Bleeding Controlled with Pressure -Treatment Response Procedure Tolerated Well -Offloading Yes -Type of Offloading Camwalker -Debridement - Subq, 1st 20sq cm Yes Pain Scale: 0-10 Numeric Is Patient Pain Free? Yes WC - Nurse 3 - General Ulcer D/C NN Start: 12/17/21 10:53 Freq: Status: Active Protocol: Activity Type Activity Date Activity User E-sign Co-sign Detail Recorded Client Recorded Date Recorded By Document 12/17/21 11:31 AK [id number] 12/17/21 11:34 AK Edit Result 12/17/21 11:31 AK (1) [id number] 12/18/21 06:44 PL Document 12/18/21 10:40 DL [id number] 12/18/21 10:43 DL Edit Result 12/18/21 10:40 DL (2) [id number] 12/19/21 06:42 PL Document 12/19/21 11:20 RB [id number] 12/19/21 11:21 RB (1) Left - Multi-Layered Wrap Application => Multi-Layer Comp - => Left ($) (2) Left - Multi-Layered Wrap Application => Multi-Layer Comp - => Left ($) 12/17/21 12/18/21 12/19/21 11:31 10:40 11:20 Vital Signs Temperature (97.8 F-99.1 F) 96.3 F L Temperature Source Temporal Pulse Rate (60-100) 66 Pulse Location Monitor Blood Pressure (90/60-120/80) 149/62 H Blood Pressure Mean (mm Hg) 91 Source Monitor Pain Scale: 0-10 Numeric Is Patient Pain Free? Yes Yes Yes Wound Care Nurse 3 #1 left heel cluster -Ulcer Cleansing Soap and Water Soap and Water Rinsed/ Irrigated with Saline -Foul Odor after Cleansing No No -Negative Pressure Wound Therapy N/A -Primary Dressing Applied Aquacel AG 4x4, Aquacel AG 4x4 Aquacel AG 2x2 Optilok 6.5x10 -Other Dressing 2 ABD abd nurses hat and 4 x4 gauze, kerlix . kevin -Primary Dressing Covered/Secured with Dry Gauze & Dry Gauze,Dry Roll Gauze, Gauze & Roll Secured with Gauze,Secured Tape with Tape -Other Covering Nurse Hat -Aquacel AG 4x4 1 1 -Aquacel AG 2x2 1 -Optilok 6.5x10 1 Left -Lotion applied to leg before No compression wrap -Multi-Layered Wrap Application Multi-Layer Multi-Layer Comp - Left ($) Comp - Left ($) -Compression Wrap Kevin Wrap -Stockings No Treatment Response Procedure Procedure Tolerated Well Tolerated Well WC - Visit Discharge Discharge Condition Stable Stable Stable Ambulatory Status Wheelchair Wheelchair Wheelchair Transportation Private Auto Private Auto Private Auto Medication Reconcilliation completed & Yes No provided to patient/care provider Clinical Summary of Care Provided Yes Yes Notes: Dressing applied per Jakob Mason LPN. Nurse Visit today after HBO . Assessment/Plan Assessment/Plan (1) Foot osteomyelitis: CODE(S): M86.9 - Osteomyelitis, unspecified QUALIFIERS: Osteomyelitis type: other acute Laterality: left Qualified Code(s): M86.172 - Other acute osteomyelitis, left ankle and foot (2) Chronic ulcer of left foot with necrosis of bone: CODE(S): L97.524 - Non-pressure chronic ulcer of other part of left foot with necrosis of bone (3) Type 2 diabetes mellitus with diabetic polyneuropathy: CODE(S): E11.42 - Type 2 diabetes mellitus with diabetic polyneuropathy QUALIFIERS: Diabetes mellitus rat exterminator insulin use: with [facility] use Qualified Code(s): E11.42 - Type 2 diabetes mellitus with diabetic polyneuropathy; Z79.4 - [facility] (current) use of insulin (4) Diabetic foot ulcer: CODE(S): E11.621 - Type 2 diabetes mellitus with foot ulcer; L97.509 - Non-pressure chronic ulcer of other part of unspecified foot with unspecified severity QUALIFIERS: Diabetic foot ulcer location: heel Diabetes mellitus type: type 2 Laterality: left Non-pressure ulcer stage: with fat layer exposed Qualified Code(s): E11.621 - Type 2 diabetes mellitus with foot ulcer; L97.422 - Non-pressure chronic ulcer of left heel and midfoot with fat layer exposed (5) Bilateral edema of lower extremity: CODE(S): R60.0 - Localized edema (6) Difficulty in walking: CODE(S): R26.2 - Difficulty in walking, not elsewhere classified (7) Left foot pain: CODE(S): M79.672 - Pain in left foot (8) DVT (deep venous thrombosis): CODE(S): I82.409 - Acute embolism and thrombosis of unspecified deep veins of unspecified lower extremity (9) Tinea unguium: CODE(S): B35.1 - Tinea unguium (10) Other hereditary and idiopathic neuropathies: CODE(S): G60.8 - Other hereditary and idiopathic neuropathies PLAN: Plan Patient seen and examined. I reviewed and discussed his case. Debridement was performed as noted in the clinical nursing panel. Dressing recommendation: To proceed forward with Aquacel Ag Friday and Friday. This was also washed with soap and water. Offloading: To maintain a strict nonweightbearing status to the ulcer to the foot. To use assistive walking device as well. He has a cam walker. Infection management: This culture results were reviewed with MRSA, Enterobacter, Enterococcus, and corynebacteria. He has osteomyelitis which was confirmed with bone biopsy sent to microbiology and pathology. It appears an extended course of linezolid is appropriate per infectious disease recommendation orally. This was discussed with ID specialist and the patient. Lab trends will be followed weekly. Advance wound options: He has a status change now with new diagnosis of osteomyelitis. I recommend hyperbaric oxygen therapy if he is medically cleared to undergo such treatment. He reports he is available to come in 5 days a week for couple hours each day and he has anticipated reliable transportation. He is in the process of getting cleared for hyperbaric oxygen therapy and will start soon. He did have to have some additional cardiac tests performed to ensure safety. He did also see ENT as well. I recommend he proceed as tolerated and as planned to optimize his healing potential. He has an echocardiogram was completed and his EF is 65%. Human Resources Benefits Assistant clearance was obtained and was advised to continue with hyperbaric oxygen therapy sessions and is doing well so far. Patient relates he had follow-up appointment with his primary care provider, Priyanka Brown, and relates that she did not change any medication and stated he was doing okay. PCP is leaving the diabetes management up to his endocrino logist, Dr. Mykel Barraza. He was able to follow-up and recommendations were updated. An updated hemoglobin A1c order was provided because we are unable to obtain this in a timely manner from the primary care physician's office. this was 8.6%. To follow up with pain management. It is noted he is already on gabapentin, Percocet, and Tylenol. I do not recommend additional narcotic pain medication which she is requesting today. We discussed source of pain is likely from his infection and from pressure applied while walking on this gradual site now that his bone is exposed. Edema management: Medical management per primary care. To reduce salt in diet. Total contact cast will also aide in edema reduction if this considered upon continued foot stability and resolution of infection status. I only recommend reapplication after he has completed his acute deep venous thrombosis treatment. Arterial studies were reviewed. Showing likely adequate perfusion for healing. Right LAI is 0.99 and left 1.18. Right toe brachial index 0.76 and left 0.71. Referral to Dr. Campos for potential venous and arterial intervention was provided today. He went for consultationon 04-11-21. Will recheck duplex to make sure normal posterior tibial flow into the area of the wound. normal prior LAI noted. Host factors: His multiple comorbidities are noted including diabetes and smoking history. Also recommend improvement in nutritional status which involves taking in adequate protein and also focusing on eating 5-10 whole foods daily. Gait abnormality/walking difficulty: I recommend PT and OT intervention with his home health agency. A referral was provided previously. He is at risk for falling. He is fragile and has demonstrated progressive deterioration. All questions answered. He understands below-knee amputation is an option as well if he cannot keep pressure off the site, if pain becomes intolerable, and if he no longer is able to proceed with a comprehensive wound healing plan. He defers at this time. This was discussed at length today. The benefits and indications of a below-knee amputation were reviewed. He would like to consider a referral to a doctor in the same healthcare system he attends in the [facility]. The etiology of thickened toenails was briefly reviewed including fungus or microtrauma. The nails were debrided with a nail nipper after verbal consent was obtained without incident. The nails were debrided in length and thickness to reduce pressure, potential fungal load, and to prevent wound formation. The patient tolerated this well. The patient elects proceed with palliative care only at this time with the nails and will hold off on further work-up. To follow-up with the [facility] if needed in the future for this condi tion. Location right 2, 3, 4, 5 and left 1, 2, 3, 4, 5 Patient to follow up in 1 week or call sooner if status worsening or if questions. He will follow-up on Friday for total contact cast evaluation and removal. I answered all of his questions. This note was generated with [employer] software. It may contain incorrect words, spelling, and punctuation that were not noted in checking the note before signing.
[2021-12-20 08:45] LABS: Bedside Glucose 226 mg/dL (74-106)
[2021-12-20 09:00] VITALS: BP 123/59; BP 143/65; PULSE 59; PULSE 71; RESP 16; RESP 18; TEMP 36.3
[2021-12-20 10:26] LABS: Bedside Glucose 189 mg/dL (74-106)
--- NOTE | 2021-12-20 13:13 | HBO.PN.PCM_ITS ---
History of Present Illness Date of Service: 12/20/21 Chief Complaint: left heel History of Wound: Patient presents for chronic non healing wound to left plantar foot (heel, and recently healed ulcer at arch). A limb and life-threatening infection which required emergent surgical intervention on 05-29-2021. He has been demonstrating improvement with total contact cast applications however had recent deteriorization and now has exposed bone to the heel now with additional osteomyelitis. A culture demonstrated multi organism growth. 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 Raphael. He denies fever, chill, nausea, vomiting, pain, odor, redness. He is keeping weight off of his foot he reports. He has been cleared for hyperbaric oxygen therapy treatment for osteomyelitis and Acevedo grade 3 by medical physician and motorcycle police officer. He had tubes placed in his ears and continues with hyperbaric oxygen therapy sessions. He saw infectious disease specialist again recently and he continues to take antibiotics as advised. He wants to avoid PICC line placement and will proceed forward with an oral linezolid course. He continues on blood thinner due to his deep venous thrombosis. Progress of Wound: Today is the 7 th treatment of hyperbaric oxygen therapy.? The patient is scheduled for 30 treatments total. Objective Data Objective Data Vital Signs: Vital Signs Temp Pulse Resp BP 97.3 F L 71 16 123/59 H 12/20/21 09:00 12/20/21 09:00 12/20/21 09:00 12/20/21 09:00 Body Mass Index (BMI) 33.7 Lab / Micro Data Labs: Laboratory Results - last 24 hr 12/20/21 07:56: POC Glucose 226 H 12/20/21 10:04: POC Glucose 189 H Exam Physical Exam Const alert, oriented x3 and no apparent distress General Appearance: cooperative HEENT normocephalic HEENT Narrative: Bilateral ear tubes in place. Eyes Eyes Narrative: Bilateral ear tubes in place. Resp normal respiratory effort and no use of accessory muscles Resp Narrative: Inspiratory and expiratory wheezes present. Auscultation: wheezes scattered wheezes and throughout Cardio regular rate and regular rhythm Psych affect normal Nursing Assessment and Debridement Post-Debridement Measurements and Additional Note: Post-Debridement Measurements/Treatment WC - Nurse 1 - General Ulcer Assessment Start: 12/17/21 10:53 Freq: Status: Active Protocol: WC.LOWEXT Activity Type Activity Date Activity User E-sign Co-sign Detail Recorded Client Recorded Date Recorded By Document 12/19/21 10:21 DL [id number] 12/19/21 10:27 DL 12/19/21 10:21 - Today's Visit Information Type of service Follow-up Visit (Physician/[employer]BE[employer] BRAKE LINING FINISHER ) Arrival Mode Wheelchair Transfer Assistance None Patient Identification Verified (Name & Yes ) Patient Requires Transmission-Based No Precautions Height and Weight Body Mass Index (BMI) 33.7 BMI Classification Obese Vital Signs Comment completed HBO this am History Since Last Visit- (Skip if this is Patient's initial visit) Have you changed medications since your No last visit? Any new allergies or adverse reactions No Had a fall/change in ADL's that may No increase risk of falls Signs or symptoms of abuse and/or No neglect since last visit Have you been in the hospital since your No last visit? Has dressing in place as prescribed Yes Has compression in place as prescribed Yes Has offloadiing in place as prescribed Yes Experienced any changes in pain level or No management Pain Scale: 0-10 Numeric Is Patient Pain Free? Yes - Nurse 1 - General Ulcer Measurement Start: 12/17/21 10:53 Freq: Status: Active Protocol: Activity Type Activity Date Activity User E-sign Co-sign Detail Recorded Client Recorded Date Recorded By Document 12/19/21 10:21 [id number] 12/19/21 10:27 DL 12/19/21 10:21 Wound Center Nurse 1 #1 left heel cluster -Current Size (cm) - Length 4 -Current Size (cm) - Width 3.6 -Current Size (cm) - Depth 1 -Total Square Cm 14.4 -Photo Taken Yes -Undermining/Tunneling Starts (O'clock 7 ) -Undermining/Tunneling Ends (O'clock) 11 -Maximum Distance (cm) 1.3 -Undermining/Tunneling Starts #2 (O' 1 clock) -Undermining/Tunneling Ends #2 (O' 4 clock) -Maximum Distance #2 (cm) 0.2 -Exudate Amt Medium -Exudate Type Serosanguineous -Wound Margin Thickened -Granulation Amt None Present (0 %) -Necrosis Amt Large (67-100%) -Necrotic Tissue Type Adherent Slough -Texture (Margaret-wound Skin Appearance) Callus -Moisture (Margaret-wound Skin Appearance) Maceration -Color (Margaret-wound Skin Appearance) Hemosiderin Staining -Temperature (Margaret-wound Skin No Abnormality Appearance) (Pt Warm) -Tenderness on Palpation (Margaret-wound No Skin Appearance) -Ulcer Cleansing Soap and Water -Foul Odor after Cleansing No -Anesthetic Used 5% Lidocaine Gel WC - Nurse 2 - General Ulcer CM Notes Start: 12/17/21 10:53 Freq: Status: Active Protocol: Activity Type Activity Date Activity User E-sign Co-sign Detail Recorded Client Recorded Date Recorded By Document 12/19/21 10:49 DANIEL [id number] 12/19/21 10:52 JF 12/19/21 10:49 Wound Center Nurse 2 -Time 10:51 -Correct Patient Yes -Correct Side, Site, Position Yes -Correct Procedure Yes -Procedure Performed Yes -Type of Procedure Debridement -Clinical Debridement Subcutaneous -Tissue Removed Subcutaneous -Post Debridement (cm) - Length 4.0 -Post Debridement (cm) - Width 3.7 -Post Debridement (cm) - Depth 0.9 -Total Square (Post) (cm) 14.80 -Area of Debridement (cm) - Length 4.0 -Area of Debridement (cm) - Width 3.7 -Total Square (Area) (cm) 14.80 -Tunneling No -Undermining/Tunneling No -Circular Undermining No -Wound/Ulcer Outcome Not Healed -Ulcer Cleansing Rinsed/ Irrigated with Saline -Foul Odor after Cleansing No -Bioengineered Tissue No -Bleeding Controlled with Pressure -Treatment Response Procedure Tolerated Well -Offloading Yes -Type of Offloading Camwalker -Debridement - Subq, 1st 20sq cm Yes Pain Scale: 0-10 Numeric Is Patient Pain Free? Yes - Nurse 3 - General Ulcer D/C NN Start: 12/17/21 10:53 Freq: Status: Active Protocol: Activity Type Activity Date Activity User E-sign Co-sign Detail Recorded Client Recorded Date Recorded By Document 12/18/21 10:40 DL [id number] 12/18/21 10:43 DL Document 12/19/21 11:20 RB [id number] 12/19/21 11:21 RB Document 12/20/21 11:07 JF [id number] 12/20/21 11:08 JF 12/18/21 12/19/21 12/20/21 10:40 11:20 11:07 Pain Scale: 0-10 Numeric Is Patient Pain Free? Yes Yes Yes Wound Care Nurse 3 #1 left heel cluster -Ulcer Cleansing Soap and Water Rinsed/ Soap and Water Irrigated with Saline -Foul Odor after Cleansing No No -Primary Dressing Applied Aquacel AG 4x4 Aquacel AG 2x2 -Other Dressing abd nurses hat non-charge and 4 x4 gauze, aquacel-ag used kerlix . kevin today -Primary Dressing Covered/Secured with Dry Gauze & Dry Gauze,Dry Dry Gauze & Roll Gauze, Gauze & Roll Roll Gauze, Secured with Gauze,Secured Secured with Tape with Tape Tape -Other Covering Nurse Hat ABD pad -Aquacel AG 4x4 1 -Aquacel AG 2x2 1 Left -Multi-Layered Wrap Application Multi-Layer Comp - Left ($) -Compression Wrap Kevin Wrap Treatment Response Procedure Procedure Tolerated Well Tolerated Well WC - Visit Discharge Discharge Condition Stable Stable Stable Ambulatory Status Wheelchair Wheelchair Wheelchair Transportation Private Auto Private Auto Private Auto Medication Reconcilliation completed & No Yes provided to patient/care provider Clinical Summary of Care Provided Yes Yes Notes: Dressing applied per Jakob Mason LPN. Nurse Visit today after HBO . Charges/Coding Wound Center CF Procedures HBO Supervision: [id number] Hyperbaric Oxygen; supervision Assessment/Plan Assessment/Plan (1) Osteomyelitis: CODE(S): M86.9 - Osteomyelitis, unspecified (2) Foot osteomyelitis: CODE(S): M86.9 - Osteomyelitis, unspecified QUALIFIERS: Osteomyelitis type: other acute Laterality: left Qualified Code(s): M86.172 - Other acute osteomyelitis, left ankle and foot (3) Chronic ulcer of left foot with necrosis of bone: CODE(S): L97.524 - Non-pressure chronic ulcer of other part of left foot with necrosis of bone (4) Type 2 diabetes mellitus with diabetic polyneuropathy: CODE(S): E11.42 - Type 2 diabetes mellitus with diabetic polyneuropathy QUALIFIERS: Diabetes mellitus leather belt loop cutter insulin use: with usp use Qualified Code(s): E11.42 - Type 2 diabetes mellitus with diabetic polyneuropathy; Z79.4 - magnetic doctor (current) use of insulin (5) Diabetic foot ulcer: CODE(S): E11.621 - Type 2 diabetes mellitus with foot ulcer; L97.509 - Non-pressure chronic ulcer of other part of unspecified foot with unspecified severity QUALIFIERS: Diabetic foot ulcer location: heel Diabetes mellitus type: type 2 Laterality: left Non-pressure ulcer stage: with fat layer exposed Qualified Code(s): E11.621 - Type 2 diabetes mellitus with foot ulcer; L97.422 - Non-pressure chronic ulcer of left heel and midfoot with fat layer exposed (6) Bilateral edema of lower extremity: CODE(S): R60.0 - Localized edema PLAN: Plan The patient tolerated hyperbaric oxygen therapy well which will be continued as per his medical plan.
[2021-12-21 08:20] LABS: Bedside Glucose 181 mg/dL (74-106)
[2021-12-21 08:42] VITALS: BP 133/59; BP 135/55; PULSE 56; PULSE 64; RESP 16; RESP 17; TEMP 36.3
[2021-12-21 08:46] VITALS: BMI 33.7
--- NOTE | 2021-12-21 09:27 | HBO.PN.PCM_ITS ---
History of Present Illness Date of Service: 12/21/21 Chief Complaint: left heel History of Wound: Patient presents for chronic non healing wound to left plantar foot (heel, and recently healed ulcer at arch). A limb and life-threatening infection which required emergent surgical intervention on 05-29-2021. He has been demonstrating improvement with total contact cast applications however had recent deteriorization and now has exposed bone to the heel now with additional osteomyelitis. A culture demonstrated multi organism growth. 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 Raphael. He denies fever, chill, nausea, vomiting, pain, odor, redness. He is keeping weight off of his foot he reports. He has been cleared for hyperbaric oxygen therapy treatment for osteomyelitis and Acevedo grade 3 by medical physician and religious activities director. He had tubes placed in his ears and continues with hyperbaric oxygen therapy sessions. He saw infectious disease specialist again recently and he continues to take antibiotics as advised. He wants to avoid PICC line placement and will proceed forward with an oral linezolid course. He continues on blood thinner due to his deep venous thrombosis. Progress of Wound: Today is the 8 th treatment of hyperbaric oxygen therapy.? The patient is scheduled for 30 treatments total. Objective Data Objective Data Vital Signs: Vital Signs Temp Pulse Resp BP 97.4 F L 64 17 135/55 H 12/21/21 08:42 12/21/21 08:42 12/21/21 08:42 12/21/21 08:42 Body Mass Index (BMI) 33.7 Lab / Micro Data Labs: Laboratory Results - last 24 hr 12/20/21 10:04: POC Glucose 189 H 12/21/21 07:59: POC Glucose 181 H Exam Physical Exam Const alert, oriented x3 and no apparent distress General Appearance: cooperative HEENT normocephalic HEENT Narrative: Bilateral ear tubes in place. Eyes Eyes Narrative: Bilateral ear tubes in place. Resp normal respiratory effort and no use of accessory muscles Resp Narrative: Inspiratory and expiratory wheezes present. Auscultation: wheezes scattered wheezes and throughout Cardio regular rate and regular rhythm Psych affect normal Nursing Assessment and Debridement Post-Debridement Measurements and Additional Note: Post-Debridement Measurements/Treatment WC - Nurse 1 - General Ulcer Assessment Start: 12/17/21 10:53 Freq: Status: Active Protocol: LOWEXT Activity Type Activity Date Activity User E-sign Co-sign Detail Recorded Client Recorded Date Recorded By Document 12/19/21 10:21 DL [id number] 12/19/21 10:27 DL Document 12/21/21 08:46 ML [id number] 12/21/21 08:48 ML 12/19/21 12/21/21 10:21 08:46 WC - Today's Visit Information Type of service Follow-up Visit Nurse-only (Physician/ORACLE APPLICATION CONSULTANT Visit ) Arrival Mode Wheelchair Wheelchair Transfer Assistance None None Patient Identification Verified (Name & Yes Yes ) Patient Requires Transmission-Based No No Precautions Safety Precautions NA Height and Weight Body Mass Index (BMI) 33.7 33.7 BMI Classification Obese Obese Vital Signs Comment completed HBO this am History Since Last Visit- (Skip if this is Patient's initial visit) Have you changed medications since your No No last visit? Any new allergies or adverse reactions No No Had a fall/change in ADL's that may No No increase risk of falls Signs or symptoms of abuse and/or No No neglect since last visit Have you been in the hospital since your No No last visit? Has dressing in place as prescribed Yes No Has compression in place as prescribed Yes Yes Has offloadiing in place as prescribed Yes Yes Experienced any changes in pain level or No No management Left Footwear Regular Shoe Right Footwear Removable Cast Walker/Walking Boot Pain Scale: 0-10 Numeric Is Patient Pain Free? Yes Yes - Nurse 1 - General Ulcer Measurement Start: 12/17/21 10:53 Freq: Status: Active Protocol: Activity Type Activity Date Activity User E-sign Co-sign Detail Recorded Client Recorded Date Recorded By Document 12/19/21 10:21 DL [id number] 12/19/21 10:27 DL 12/19/21 10:21 Wound Center Nurse 1 #1 left heel cluster -Current Size (cm) - Length 4 -Current Size (cm) - Width 3.6 -Current Size (cm) - Depth 1 -Total Square Cm 14.4 -Photo Taken Yes -Undermining/Tunneling Starts (O'clock 7 ) -Undermining/Tunneling Ends (O'clock) 11 -Maximum Distance (cm) 1.3 -Undermining/Tunneling Starts #2 (O' 1 clock) -Undermining/Tunneling Ends #2 (O' 4 clock) -Maximum Distance #2 (cm) 0.2 -Exudate Amt Medium -Exudate Type Serosanguineous -Wound Margin Thickened -Granulation Amt None Present (0 %) -Necrosis Amt Large (67-100%) -Necrotic Tissue Type Adherent Slough -Texture (Margaret-wound Skin Appearance) Callus -Moisture (Margaret-wound Skin Appearance) Maceration -Color (Margaret-wound Skin Appearance) Hemosiderin Staining -Temperature (Margaret-wound Skin No Abnormality Appearance) (Pt Warm) -Tenderness on Palpation (Margaret-wound No Skin Appearance) -Ulcer Cleansing Soap and Water -Foul Odor after Cleansing No -Anesthetic Used 5% Lidocaine Gel WC - Nurse 2 - General Ulcer CM Notes Start: 12/17/21 10:53 Freq: Status: Active Protocol: Activity Type Activity Date Activity User E-sign Co-sign Detail Recorded Client Recorded Date Recorded By Document 12/19/21 10:49 DANIEL [id number] 12/19/21 10:52 DANIEL 12/19/21 10:49 Wound Center Nurse 2 -Time 10:51 -Correct Patient Yes -Correct Side, Site, Position Yes -Correct Procedure Yes -Procedure Performed Yes -Type of Procedure Debridement -Clinical Debridement Subcutaneous -Tissue Removed Subcutaneous -Post Debridement (cm) - Length 4.0 -Post Debridement (cm) - Width 3.7 -Post Debridement (cm) - Depth 0.9 -Total Square (Post) (cm) 14.80 -Area of Debridement (cm) - Length 4.0 -Area of Debridement (cm) - Width 3.7 -Total Square (Area) (cm) 14.80 -Tunneling No -Undermining/Tunneling No -Circular Undermining No -Wound/Ulcer Outcome Not Healed -Ulcer Cleansing Rinsed/ Irrigated with Saline -Foul Odor after Cleansing No -Bioengineered Tissue No -Bleeding Controlled with Pressure -Treatment Response Procedure Tolerated Well -Offloading Yes -Type of Offloading Camwalker -Debridement - Subq, 1st 20sq cm Yes Pain Scale: 0-10 Numeric Is Patient Pain Free? Yes JANESSA - Nurse 3 - General Ulcer D/C NN Start: 12/17/21 10:53 Freq: Status: Active Protocol: Activity Type Activity Date Activity User E-sign Co-sign Detail Recorded Client Recorded Date Recorded By Document 12/18/21 10:40 DL [id number] 12/18/21 10:43 DL Document 12/19/21 11:20 RB [id number] 12/19/21 11:21 RB Document 12/20/21 11:07 JF [id number] 12/20/21 11:08 JF Document 12/21/21 08:46 ML [id number] 12/21/21 08:48 ML 12/18/21 12/19/21 12/20/21 10:40 11:20 11:07 Pain Scale: 0-10 Numeric Is Patient Pain Free? Yes Yes Yes Wound Care Nurse 3 #1 left heel cluster -Ulcer Cleansing Soap and Water Rinsed/ Soap and Water Irrigated with Saline -Foul Odor after Cleansing No No -Primary Dressing Applied Aquacel AG 4x4 Aquacel AG 2x2 -Other Dressing abd nurses hat non-charge and 4 x4 gauze, aquacel-ag used kerlix . kevin today -Primary Dressing Covered/Secured with Dry Gauze & Dry Gauze,Dry Dry Gauze & Roll Gauze, Gauze & Roll Roll Gauze, Secured with Gauze,Secured Secured with Tape with Tape Tape -Other Covering Nurse Hat ABD pad -Aquacel AG 4x4 1 -Aquacel AG 2x2 1 Left -Multi-Layered Wrap Application Multi-Layer Comp - Left ($) -Compression Wrap Kevin Wrap Treatment Response Procedure Procedure Tolerated Well Tolerated Well WC - Visit Discharge Discharge Condition Stable Stable Stable Ambulatory Status Wheelchair Wheelchair Wheelchair Transportation Private Auto Private Auto Private Auto Medication Reconcilliation completed & No Yes provided to patient/care provider Clinical Summary of Care Provided Yes Yes Notes: Dressing applied per Jakob Mason LPN. Nurse Visit today after HBO . 12/21/21 08:46 Pain Scale: 0-10 Numeric Is Patient Pain Free? Yes Wound Care Nurse 3 #1 left heel cluster -Ulcer Cleansing Soap and Water -Foul Odor after Cleansing No -Primary Dressing Applied Aquacel AG 4x4 -Other Dressing ABD,KEVIN -Primary Dressing Covered/Secured with Dry Gauze & Roll Gauze, Secured with Tape -Other Covering -Aquacel AG 4x4 1 -Aquacel AG 2x2 Left -Multi-Layered Wrap Application -Compression Wrap Treatment Response WC - Visit Discharge Discharge Condition Ambulatory Status Transportation Medication Reconcilliation completed & provided to patient/care provider Clinical Summary of Care Provided Notes: Charges/Coding Wound Center CF Procedures HBO Supervision: [id number] Hyperbaric Oxygen; supervision Assessment/Plan Assessment/Plan (1) Osteomyelitis: CODE(S): M86.9 - Osteomyelitis, unspecified (2) Foot osteomyelitis: CODE(S): M86.9 - Osteomyelitis, unspecified QUALIFIERS: Osteomyelitis type: other acute Laterality: left Qualified Code(s): M86.172 - Other acute osteomyelitis, left ankle and foot (3) Chronic ulcer of left foot with necrosis of bone: CODE(S): L97.524 - Non-pressure chronic ulcer of other part of left foot with necrosis of bone (4) Type 2 diabetes mellitus with diabetic polyneuropathy: CODE(S): E11.42 - Type 2 diabetes mellitus with diabetic polyneuropathy QUALIFIERS: Diabetes mellitus retirement insulin use: with retirement use Qualified Code(s): E11.42 - Type 2 diabetes mellitus with diabetic polyneuropathy; Z79.4 - computer processing scheduler (current) use of insulin (5) Diabetic foot ulcer: CODE(S): E11.621 - Type 2 diabetes mellitus with foot ulcer; L97.509 - Non-pressure chronic ulcer of other part of unspecified foot with unspecified severity QUALIFIERS: Diabetic foot ulcer location: heel Diabetes mellitus type: type 2 Laterality: left Non-pressure ulcer stage: with fat layer exposed Qualified Code(s): E11.621 - Type 2 diabetes mellitus with foot ulcer; L97.422 - Non-pressure chronic ulcer of left heel and midfoot with fat layer exposed (6) Bilateral edema of lower extremity: CODE(S): R60.0 - Localized edema PLAN: Plan The patient tolerated hyperbaric oxygen therapy well which will be continued as per his medical plan.
[2021-12-21 10:46] LABS: Bedside Glucose 183 mg/dL (74-106)
[2021-12-24 08:20] LABS: Bedside Glucose 183 mg/dL (74-106)
--- NOTE | 2021-12-24 08:27 | HBO.PN.PCM_ITS ---
History of Present Illness Date of Service: 12/13/21 Chief Complaint: left heel History of Wound: Patient presents for chronic non healing wound to left plantar foot (heel, and recently healed ulcer at arch). A limb and life-threatening infection which required emergent surgical intervention on 05-29-2021. He has been demonstrating improvement with total contact cast applications however had recent deteriorization and now has exposed bone to the heel now with additional osteomyelitis. A culture demonstrated multi organism growth. 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 Raphael. He denies fever, chill, nausea, vomiting, pain, odor, redness. He is keeping weight off of his foot he reports. He has been cleared for hyperbaric oxygen therapy treatment for osteomyelitis and Acevedo grade 3 by medical physician and systems analyst engineer. He had tubes placed in his ears and continues with hyperbaric oxygen therapy sessions. He saw infectious disease specialist again recently and he continues to take antibiotics as advised. He wants to avoid PICC line placement and will proceed forward with an oral linezolid course. He continues on blood thinner due to his deep venous thrombosis. Progress of Wound: Today is the 9 th treatment of hyperbaric oxygen therapy.? The patient is scheduled for 30 treatments total. Subjective Subjective Patient has no concerns Objective Data Objective Data Vital Signs: Vital Signs Temp Pulse Resp BP 97.4 F L 64 17 135/55 H 12/21/21 08:42 12/21/21 08:42 12/21/21 08:42 12/21/21 08:42 Body Mass Index (BMI) 33.7 Lab / Micro Data Labs: Laboratory Results - last 24 hr 12/24/21 07:54: POC Glucose 183 H Exam Physical Exam Const alert, oriented x3 and no apparent distress General Appearance: cooperative HEENT normocephalic HEENT Narrative: Bilateral ear tubes in place. Eyes Eyes Narrative: Bilateral ear tubes in place. Resp normal respiratory effort and no use of accessory muscles Resp Narrative: Inspiratory and expiratory wheezes present. Auscultation: wheezes scattered wheezes and throughout Cardio regular rate and regular rhythm Psych affect normal Nursing Assessment and Debridement Post-Debridement Measurements and Additional Note: Post-Debridement Measurements/Treatment WC - Nurse 1 - General Ulcer Assessment Start: 12/17/21 10:53 Freq: Status: Active Protocol: EVELYN Activity Type Activity Date Activity User E-sign Co-sign Detail Recorded Client Recorded Date Recorded By Document 12/21/21 08:46 ML [id number] 12/21/21 08:48 ML 12/21/21 08:46 WC - Today's Visit Information Type of service Nurse-only Visit Arrival Mode Wheelchair Transfer Assistance None Patient Identification Verified (Name & Yes ) Patient Requires Transmission-Based No Precautions Safety Precautions NA Height and Weight Body Mass Index (BMI) 33.7 BMI Classification Obese History Since Last Visit- (Skip if this is Patient's initial visit) Have you changed medications since your No last visit? Any new allergies or adverse reactions No Had a fall/change in ADL's that may No increase risk of falls Signs or symptoms of abuse and/or No neglect since last visit Have you been in the hospital since your No last visit? Has dressing in place as prescribed No Has compression in place as prescribed Yes Has offloadiing in place as prescribed Yes Experienced any changes in pain level or No management Left Footwear Regular Shoe Right Footwear Removable Cast Walker/Walking Boot Pain Scale: 0-10 Numeric Is Patient Pain Free? Yes - Nurse 3 - General Ulcer D/C NN Start: 12/17/21 10:53 Freq: Status: Active Protocol: Activity Type Activity Date Activity User E-sign Co-sign Detail Recorded Client Recorded Date Recorded By Document 12/21/21 08:46 ML [id number] 12/21/21 08:48 ML 12/21/21 08:46 Is Patient Pain Free? Yes Wound Care Nurse 3 #1 left heel cluster -Ulcer Cleansing Soap and Water -Foul Odor after Cleansing No -Primary Dressing Applied Aquacel AG 4x4 -Other Dressing ABD,KASI -Primary Dressing Covered/Secured with Dry Gauze & Roll Gauze, Secured with Tape -Aquacel AG 4x4 1 Assessment/Plan Assessment/Plan (1) Osteomyelitis: CODE(S): M86.9 - Osteomyelitis, unspecified (2) Foot osteomyelitis: CODE(S): M86.9 - Osteomyelitis, unspecified QUALIFIERS: Laterality: left Osteomyelitis type: other acute Qualified Code(s): M86.172 - Other acute osteomyelitis, left ankle and foot (3) Chronic ulcer of left foot with necrosis of bone: CODE(S): L97.524 - Non-pressure chronic ulcer of other part of left foot with necrosis of bone (4) Type 2 diabetes mellitus with diabetic polyneuropathy: CODE(S): E11.42 - Type 2 diabetes mellitus with diabetic polyneuropathy QUALIFIERS: Diabetes mellitus alf insulin use: with assistant terminal manager use Qualified Code(s): E11.42 - Type 2 diabetes mellitus with diabetic polyneuropathy; Z79.4 - nursing home (current) use of insulin (5) Diabetic foot ulcer: CODE(S): E11.621 - Type 2 diabetes mellitus with foot ulcer; L97.509 - Non-pressure chronic ulcer of other part of unspecified foot with unspecified severity QUALIFIERS: Diabetes mellitus type: type 2 Diabetic foot ulcer location: heel Laterality: left Non-pressure ulcer stage: with fat layer exposed Qualified Code(s): E11.621 - Type 2 diabetes mellitus with foot ulcer; L97.422 - Non-pressure chronic ulcer of left heel and midfoot with fat layer exposed (6) Bilateral edema of lower extremity: CODE(S): R60.0 - Localized edema PLAN: Plan The patient tolerated hyperbaric oxygen therapy well which will be continued as per his medical plan.
[2021-12-24 10:36] LABS: Bedside Glucose 211 mg/dL (74-106)
[2021-12-24 10:48] VITALS: BP 119/55; BP 122/50; PULSE 63; PULSE 75; RESP 18; RESP 20; TEMP 36.4; TEMP 36.6
[2021-12-26 10:54] VITALS: BP 130/70; PULSE 69; RESP 18; TEMP 36.3; BMI 33.7
--- NOTE | 2021-12-26 11:15 | PN.PCM_ITS ---
History of Present Illness Date of Service: 12/26/21 Chief Complaint: left heel History of Wound: Patient presents for chronic non healing wound to left plantar foot (heel, and recently healed ulcer at arch). A limb and life-threatening infection which required emergent surgical intervention on 05-29-2021. 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 Raphael. He denies fever, chill, nausea, vomiting, pain, odor, redness today. He is keeping weight off of his foot. He continues to take antibiotics as advised. He continues on blood thinner due to his deep venous thrombosis. Progress of Wound: improving wound quality of base Objective Data Objective Data Vital Signs: Vital Signs Temp Pulse Resp BP 97.4 F L 69 18 130/70 H 12/26/21 10:54 12/26/21 10:54 12/26/21 10:54 12/26/21 10:54 Body Mass Index (BMI) 33.7 Physical Exam Narrative Const alert and no apparent distress General Appearance: cooperative and comfortable Extremity There is diffuse left foot/ankle and leg swelling. Left foot s/p debridement to arch and heel, tissues are healthy and viable, granular. Healed arch with full epithelialization. No longer bone probing notd. There is peripheral granulation tissue and minimal peripheral callus also. There is no streaking or odor, compartments remain soft to palpate, there is no fluctuance or bogginess on palpation, no drainage, no visible abscess, no cellulitis, no blistering present. Hematogenous / serosanguineous drainage only upon debridement. Periwound moisture and maceration has resolved. Lack of normal epicritic sensation pathic status via light touch. Pain with manipulation and heel compression consistent prior visits normal capillary refill, no acute ischemic skin changes noted, normal temperature bilateral. Const oriented x3 General Appearance: cooperative Extremity Left Lower Extremity: lower leg Skin Skin Narrative: Wounds left heel osteomyelitis Wound Narrative: Neuro Neuro Narrative: Debridement Note Debridement Note Wound debrided: left heel Laterality: Left Wound Grade/Stage: 3 Type of Debridement: Excisional debridement Anesthesia Used: 4% Lidocaine Solution Depth: in the subcutaneous layer, to bone (heel) and - (misonic ultrasound debridement) Percentage of wound debrided: 100 Instrument Used: #15 blade Tissue Removed: fibrous, devitalized subcutaneous, biofilm, slough Severity: Fat Layer Exposed Amount of bleeding with debridement: Mild Bleeding Controlled with: Pressure Patient tolerated procedure: Patient tolerated procedure well Post-Debridement Measurements and Additional Note: Post-Debridement Measurements/Treatment WC - Nurse 1 - General Ulcer Assessment Start: 12/17/21 10:53 Freq: Status: Active Protocol: [email or web address] Activity Type Activity Date Activity User E-sign Co-sign Detail Recorded Client Recorded Date Recorded By Document 12/17/21 11:31 AK [id number] 12/17/21 11:34 AK Document 12/19/21 10:21 DL [id number] 12/19/21 10:27 DL Document 12/21/21 08:46 ML [id number] 12/21/21 08:48 ML Document 12/26/21 10:54 DL [id number] 12/26/21 10:59 DL 12/17/21 12/19/21 12/21/21 11:31 10:21 08:46 - Today's Visit Information Type of service Nurse-only Follow-up Visit Nurse-only Visit (Physician/HEALTH PROGRAM SPECIALIST Visit ) Arrival Mode Wheelchair Wheelchair Wheelchair Transfer Assistance None None Transfer Assist (Other) Patient Identification Verified (Name & Yes Yes Yes ) Patient Requires Transmission-Based No No No Precautions Safety Precautions NA NA Finger Stick Blood Sugar(mg/dl) (if indicated): Height and Weight Body Mass Index (BMI) 33.7 33.7 33.7 BMI Classification Obese Obese Obese Vital Signs Temperature (97.8 F-99.1 F) 96.3 F L Temperature Source Temporal Pulse Rate (60-100) 66 Pulse Location Monitor Respiratory Rate (12-18) Respiratory rate source Blood Pressure (90/60-120/80) 149/62 H Blood Pressure Mean (mm Hg) 91 Source Monitor Comment completed HBO this am History Since Last Visit- (Skip if this is Patient's initial visit) Have you changed medications since your No No No last visit? Any new allergies or adverse reactions No No No Had a fall/change in ADL's that may No No No increase risk of falls Signs or symptoms of abuse and/or No No No neglect since last visit Have you been in the hospital since your No No No last visit? Has dressing in place as prescribed Yes Yes No Has compression in place as prescribed Yes Yes Yes Has offloadiing in place as prescribed Yes Yes Yes Experienced any changes in pain level or No No No management Left Footwear Removable Cast Regular Shoe Walker/Walking Boot Right Footwear Regular Shoe Removable Cast Walker/Walking Boot Pain Scale: 0-10 Numeric Is Patient Pain Free? Yes Yes Yes 12/26/21 10:54 - Today's Visit Information Type of service Follow-up Visit (Physician/HEALTH PROGRAM SPECIALIST ) Arrival Mode Ambulatory, Wheelchair Transfer Assistance Manual Transfer Assist (Other) x2 Patient Identification Verified (Name & Yes ) Patient Requires Transmission-Based No Precautions Safety Precautions Finger Stick Blood Sugar(mg/dl) (if 78 indicated): Height and Weight Body Mass Index (BMI) 33.7 BMI Classification Obese Vital Signs Temperature (97.8 F-99.1 F) 97.4 F L Temperature Source Temporal Pulse Rate (60-100) 69 Pulse Location Monitor Respiratory Rate (12-18) 18 Respiratory rate source Observation Blood Pressure (90/60-120/80) 130/70 H Blood Pressure Mean (mm Hg) 90 Source Monitor Comment History Since Last Visit- (Skip if this is Patient's initial visit) Have you changed medications since your No last visit? Any new allergies or adverse reactions No Had a fall/change in ADL's that may No increase risk of falls Signs or symptoms of abuse and/or No neglect since last visit Have you been in the hospital since your No last visit? Has dressing in place as prescribed Yes Has compression in place as prescribed Yes Has offloadiing in place as prescribed Yes Experienced any changes in pain level or No management Left Footwear Right Footwear Pain Scale: 0-10 Numeric Is Patient Pain Free? Yes - Nurse 1 - General Ulcer Measurement Start: 12/17/21 10:53 Freq: Status: Active Protocol: Activity Type Activity Date Activity User E-sign Co-sign Detail Recorded Client Recorded Date Recorded By Document 12/19/21 10:21 DL [id number] 12/19/21 10:27 DL Document 12/26/21 10:54 DL [id number] 12/26/21 10:59 DL 12/19/21 12/26/21 10:21 10:54 Wound Center Nurse 1 #1 left heel cluster -Current Size (cm) - Length 4 3.5 -Current Size (cm) - Width 3.6 3.4 -Current Size (cm) - Depth 1 0.5 -Total Square Cm 14.4 11.90 -Photo Taken Yes -Undermining/Tunneling Starts (O'clock 7 8 ) -Undermining/Tunneling Ends (O'clock) 11 11 -Maximum Distance (cm) 1.3 1.5 -Undermining/Tunneling Starts #2 (O' 1 clock) -Undermining/Tunneling Ends #2 (O' 4 clock) -Maximum Distance #2 (cm) 0.2 -Exudate Amt Medium Medium -Exudate Type Serosanguineous Serosanguineous -Wound Margin Thickened Thickened & Rolled Under -Granulation Amt None Present (0 Small (1-33%) %) -Granulation Quality [place] -Necrosis Amt Large (67-100%) -Necrotic Tissue Type Adherent Slough Adherent Slough -Structure Exposed N/A -Texture (Margaret-wound Skin Appearance) Callus Scarring -Moisture (Margaret-wound Skin Appearance) Maceration Maceration -Color (Margaret-wound Skin Appearance) Hemosiderin Hemosiderin Staining Staining -Temperature (Margaret-wound Skin No Abnormality No Abnormality Appearance) (Pt Warm) (Pt Warm) -Tenderness on Palpation (Margaret-wound No No Skin Appearance) -Ulcer Cleansing Soap and Water Soap and Water -Foul Odor after Cleansing No No -Anesthetic Used 5% Lidocaine 5% Lidocaine Gel Gel WC - Nurse 2 - General Ulcer CM Notes Start: 12/17/21 10:53 Freq: Status: Active Protocol: Activity Type Activity Date Activity User E-sign Co-sign Detail Recorded Client Recorded Date Recorded By Document 12/19/21 10:49 DANIEL [id number] 12/19/21 10:52 DANIEL 12/19/21 10:49 Wound Center Nurse 2 -Time 10:51 -Correct Patient Yes -Correct Side, Site, Position Yes -Correct Procedure Yes -Procedure Performed Yes -Type of Procedure Debridement -Clinical Debridement Subcutaneous -Tissue Removed Subcutaneous -Post Debridement (cm) - Length 4.0 -Post Debridement (cm) - Width 3.7 -Post Debridement (cm) - Depth 0.9 -Total Square (Post) (cm) 14.80 -Area of Debridement (cm) - Length 4.0 -Area of Debridement (cm) - Width 3.7 -Total Square (Area) (cm) 14.80 -Tunneling No -Undermining/Tunneling No -Circular Undermining No -Wound/Ulcer Outcome Not Healed -Ulcer Cleansing Rinsed/ Irrigated with Saline -Foul Odor after Cleansing No -Bioengineered Tissue No -Bleeding Controlled with Pressure -Treatment Response Procedure Tolerated Well -Offloading Yes -Type of Offloading Camwalker -Debridement - Subq, 1st 20sq cm Yes Pain Scale: 0-10 Numeric Is Patient Pain Free? Yes WC - Nurse 3 - General Ulcer D/C NN Start: 12/17/21 10:53 Freq: Status: Active Protocol: Activity Type Activity Date Activity User E-sign Co-sign Detail Recorded Client Recorded Date Recorded By Document 12/17/21 11:31 AK [id number] 12/17/21 11:34 AK Edit Result 12/17/21 11:31 AK (1) [id number] 12/18/21 06:44 PL Document 12/18/21 10:40 DL [id number] 12/18/21 10:43 DL Edit Result 12/18/21 10:40 DL (2) [id number] 12/19/21 06:42 PL Document 12/19/21 11:20 RB [id number] 12/19/21 11:21 RB Document 12/20/21 11:07 JF [id number] 12/20/21 11:08 JF Document 12/21/21 08:46 ML [id number] 12/21/21 08:48 ML (1) Left - Multi-Layered Wrap Application => Multi-Layer Comp - => Left ($) (2) Left - Multi-Layered Wrap Application => Multi-Layer Comp - => Left ($) 12/17/21 12/18/21 12/19/21 11:31 10:40 11:20 Vital Signs Temperature (97.8 F-99.1 F) 96.3 F L Temperature Source Temporal Pulse Rate (60-100) 66 Pulse Location Monitor Blood Pressure (90/60-120/80) 149/62 H Blood Pressure Mean (mm Hg) 91 Source Monitor Pain Scale: 0-10 Numeric Is Patient Pain Free? Yes Yes Yes Wound Care Nurse 3 #1 left heel cluster -Ulcer Cleansing Soap and Water Soap and Water Rinsed/ Irrigated with Saline -Foul Odor after Cleansing No No -Negative Pressure Wound Therapy N/A -Primary Dressing Applied Aquacel AG 4x4, Aquacel AG 4x4 Aquacel AG 2x2 Optilok 6.5x10 -Other Dressing 2 ABD abd nurses hat and 4 x4 gauze, kerlix . kevin -Primary Dressing Covered/Secured with Dry Gauze & Dry Gauze,Dry Roll Gauze, Gauze & Roll Secured with Gauze,Secured Tape with Tape -Other Covering Nurse Hat -Aquacel AG 4x4 1 1 -Aquacel AG 2x2 1 -Optilok 6.5x10 1 Left -Lotion applied to leg before No compression wrap -Multi-Layered Wrap Application Multi-Layer Multi-Layer Comp - Left ($) Comp - Left ($) -Compression Wrap Kevin Wrap -Stockings No Treatment Response Procedure Procedure Tolerated Well Tolerated Well WC - Visit Discharge Discharge Condition Stable Stable Stable Ambulatory Status Wheelchair Wheelchair Wheelchair Transportation Private Auto Private Auto Private Auto Medication Reconcilliation completed & Yes No provided to patient/care provider Clinical Summary of Care Provided Yes Yes Notes: Dressing applied per Jakob Mason LPN. Nurse Visit today after HBO . 12/20/21 12/21/21 11:07 08:46 Vital Signs Temperature (97.8 F-99.1 F) Temperature Source Pulse Rate (60-100) Pulse Location Blood Pressure (90/60-120/80) Blood Pressure Mean (mm Hg) Source Pain Scale: 0-10 Numeric Is Patient Pain Free? Yes Yes Wound Care Nurse 3 #1 left heel cluster -Ulcer Cleansing Soap and Water Soap and Water -Foul Odor after Cleansing No No -Negative Pressure Wound Therapy -Primary Dressing Applied Aquacel AG 4x4 -Other Dressing non-charge ABD,KEVIN aquacel-ag used today -Primary Dressing Covered/Secured with Dry Gauze & Dry Gauze & Roll Gauze, Roll Gauze, Secured with Secured with Tape Tape -Other Covering ABD pad -Aquacel AG 4x4 1 -Aquacel AG 2x2 -Optilok 6.5x10 Left -Lotion applied to leg before compression wrap -Multi-Layered Wrap Application -Compression Wrap Kevin Wrap -Stockings Treatment Response WC - Visit Discharge Discharge Condition Stable Ambulatory Status Wheelchair Transportation Private Auto Medication Reconcilliation completed & Yes provided to patient/care provider Clinical Summary of Care Provided Yes Notes: Assessment/Plan Assessment/Plan (1) Foot osteomyelitis: CODE(S): M86.9 - Osteomyelitis, unspecified QUALIFIERS: Laterality: left Osteomyelitis type: other acute Qualified Code(s): M86.172 - Other acute osteomyelitis, left ankle and foot (2) Chronic ulcer of left foot with necrosis of bone: CODE(S): L97.524 - Non-pressure chronic ulcer of other part of left foot with necrosis of bone (3) Type 2 diabetes mellitus with diabetic polyneuropathy: CODE(S): E11.42 - Type 2 diabetes mellitus with diabetic polyneuropathy QUALIFIERS: Diabetes mellitus intermediate insulin use: with intermediate use Qualified Code(s): E11.42 - Type 2 diabetes mellitus with diabetic polyneuropathy; Z79.4 - tank operator (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) use of insulin (4) Diabetic foot ulcer: CODE(S): E11.621 - Type 2 diabetes mellitus with foot ulcer; L97.509 - Non-pressure chronic ulcer of other part of unspecified foot with unspecified severity QUALIFIERS: Diabetes mellitus type: type 2 Diabetic foot ulcer location: heel Laterality: left Non-pressure ulcer stage: with fat layer exposed Qualified Code(s): E11.621 - Type 2 diabetes mellitus with foot ulcer; L97.422 - Non-pressure chronic ulcer of left heel and midfoot with fat layer exposed (5) Bilateral edema of lower extremity: CODE(S): R60.0 - Localized edema (6) Difficulty in walking: CODE(S): R26.2 - Difficulty in walking, not elsewhere classified (7) Left foot pain: CODE(S): M79.672 - Pain in left foot PLAN: Plan Patient seen and examined. I reviewed and discussed his case. Debridement was performed as noted in the clinical nursing panel. Dressing recommendation: To proceed forward with Aquacel Ag Friday and Friday. This was also washed with soap and water. Offloading: To maintain a strict nonweightbearing status to the ulcer to the foot. To use assistive walking device as well. He has a cam walker. Infection management: This culture results were reviewed with MRSA, Enterobacter, Enterococcus, and corynebacteria. He has osteomyelitis which was confirmed with bone biopsy sent to microbiology and pathology. It appears an extended course of linezolid is appropriate per infectious disease recommendation orally. This was discussed previously with ID specialist and the patient. Lab trends will be followed weekly. Advance wound options: He has a status change now with newer diagnosis of osteomyelitis. I recommend hyperbaric oxygen therapy if he is medically cleared to undergo such treatment. He reports he is available to come in 5 days a week for couple hours each day and he has anticipated reliable transportation. He is in the process of getting cleared for hyperbaric oxygen therapy and will start soon. He did have to have some additional cardiac tests performed to ensure safety. He did also see ENT as well. I recommend he proceed as tolerated and as planned to optimize his healing potential. He has an echocardiogram was completed and his EF is 65%. Sports Analyst clearance was obtained and was advised to continue with hyperbaric oxygen therapy sessions and is doing well so far. Patient relates he had follow-up appointment with his primary care provider, Priyanka Brown, and relates that she did not change any medication and stated he was doing okay. PCP is leaving the diabetes management up to his art psychotherapist, Dr. Mykel Barraza. He was able to follow-up and recommendations were updated. An updated hemoglobin A1c order was provided because we are unable to obtain this in a timely manner from the primary care physician's office. this was 8.6%. To follow up with pain management. It is noted he is already on gabapentin, Percocet, and Tylenol. I do not recommend additional narcotic pain medication which she is requesting today. We discussed source of pain is likely from his infection and from pressure applied while walking on this gradual site now that his bone is exposed. Edema management: Medical management per primary care. To reduce salt in diet. Total contact cast will also aide in edema reduction if this considered upon continued foot stability and resolution of infection status. I only recommend reapplication after he has completed his acute deep venous thrombosis treatment. Arterial studies were reviewed. Showing likely adequate perfusion for healing. Right LAI is 0.99 and left 1.18. Right toe brachial index 0.76 and left 0.71. Referral to Dr. Campos for potential venous and arterial intervention was provided today. He went for consultationon 04-11-21. Will recheck duplex to make sure normal posterior tibial flow into the area of the wound. normal prior LAI noted. Host factors: His multiple comorbidities are noted including diabetes and smoking history. Also recommend improvement in nutritional status which involves taking in adequate protein and also focusing on eating 5-10 whole foods daily. Gait abnormality/walking difficulty: I recommend PT and OT intervention with his home health agency. A referral was provided previously. He is at risk for falling. He is fragile and has demonstrated progressive deterioration. All questions answered. He understands below-knee amputation is an option as well if he cannot keep pressure off the site, if pain becomes intolerable, and if he no longer is able to proceed with a comprehensive wound healing plan. He defers at this time. This was discussed at length today. The benefits and indications of a below-knee amputation were reviewed. He would like to consider a referral to a doctor in the same healthcare system he attends in the [facility]. Patient to follow up in 1 week or call sooner if status worsening or if questions. He will follow-up on Friday for total contact cast evaluation and removal. I answered all of his questions. This note was generated with [employer] dictation software. It may contain incorrect words, spelling, and punctuation that were not noted in checking the note before signing.
[2021-12-28 10:22] VITALS: BP 116/58; PULSE 62; TEMP 36.6
[2021-12-31 08:15] LABS: Bedside Glucose 162 mg/dL (74-106)
--- NOTE | 2021-12-31 09:34 | HBO.PN.PCM_ITS ---
History of Present Illness Date of Service: 12/13/21 Chief Complaint: left heel History of Wound: Patient presents for chronic non healing wound to left plantar foot (heel, and recently healed ulcer at arch). A limb and life-threatening infection which required emergent surgical intervention on 05-29-2021. 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 Raphael. He denies fever, chill, nausea, vomiting, pain, odor, redness today. He is keeping weight off of his foot. He continues to take antibiotics as advised. He continues on blood thinner due to his deep venous thrombosis. Progress of Wound: Today is the 11th treatment of hyperbaric oxygen therapy.? The patient is scheduled for 30 treatments total. Subjective Subjective Patient has no concerns Objective Data Objective Data Vital Signs: Vital Signs Temp Pulse Resp BP O2 Del Method 98 F 62 18 116/58 L Room Air 12/28/21 10:22 12/28/21 10:22 12/26/21 10:54 12/28/21 10:22 12/28/21 10:22 Oxygen Delivery Method Room Air Body Mass Index (BMI) 33.7 Lab / Micro Data Labs: Laboratory Results - last 24 hr 12/31/21 07:55: POC Glucose 162 H Exam Physical Exam Const alert, oriented x3 and no apparent distress General Appearance: cooperative HEENT normocephalic HEENT Narrative: Bilateral ear tubes in place. Eyes Eyes Narrative: Bilateral ear tubes in place. Resp normal respiratory effort, no use of accessory muscles and clear to auscultation bilaterally Auscultation: wheezes scattered wheezes and throughout Cardio regular rate and regular rhythm Psych affect normal Nursing Assessment and Debridement Post-Debridement Measurements and Additional Note: Post-Debridement Measurements/Treatment WC - Nurse 3 - General Ulcer D/C NN Start: 12/17/21 10:53 Freq: Status: Active Protocol: Activity Type Activity Date Activity User E-sign Co-sign Detail Recorded Client Recorded Date Recorded By Document 12/28/21 10:22 VT [id number] 12/28/21 10:50 MT 12/28/21 10:22 Vital Signs Temperature (97.8 F-99.1 F) 98 F Temperature Source Temporal Pulse Rate (60-100) 62 Pulse Location Monitor Oxygen Delivery Method Room Air Blood Pressure (90/60-120/80) 116/58 L Blood Pressure Mean (mm Hg) 77 Pain Scale: 0-10 Numeric Is Patient Pain Free? Yes Wound Care Nurse 3 #1 left heel cluster -Ulcer Cleansing Soap and Water -Primary Dressing Applied Aquacel AG 4x4, Optilok 6.5x10 -Primary Dressing Covered/Secured with Dry Gauze & Roll Gauze, Secured with Tape -Aquacel AG 4x4 1 -Optilok 6.5x10 1 Left -Compression Wrap Kevin Wrap WC - Visit Discharge Discharge Condition Stable Ambulatory Status Wheelchair Transportation Private Auto Medication Reconcilliation completed & No provided to patient/care provider Clinical Summary of Care Provided Yes Notes: nurse visit Assessment/Plan Assessment/Plan (1) Osteomyelitis: CODE(S): M86.9 - Osteomyelitis, unspecified (2) Foot osteomyelitis: CODE(S): M86.9 - Osteomyelitis, unspecified QUALIFIERS: Laterality: left Osteomyelitis type: other acute Qualified Code(s): M86.172 - Other acute osteomyelitis, left ankle and foot (3) Chronic ulcer of left foot with necrosis of bone: CODE(S): L97.524 - Non-pressure chronic ulcer of other part of left foot with necrosis of bone (4) Type 2 diabetes mellitus with diabetic polyneuropathy: CODE(S): E11.42 - Type 2 diabetes mellitus with diabetic polyneuropathy QUALIFIERS: Diabetes mellitus [facility] insulin use: with [facility] use Qualified Code(s): E11.42 - Type 2 diabetes mellitus with diabetic polyneuropathy; Z79.4 - intermediate (current) use of insulin (5) Diabetic foot ulcer: CODE(S): E11.621 - Type 2 diabetes mellitus with foot ulcer; L97.509 - Non-pressure chronic ulcer of other part of unspecified foot with unspecified severity QUALIFIERS: Diabetes mellitus type: type 2 Diabetic foot ulcer location: heel Laterality: left Non-pressure ulcer stage: with fat layer exposed Qualified Code(s): E11.621 - Type 2 diabetes mellitus with foot ulcer; L97.422 - Non-pressure chronic ulcer of left heel and midfoot with fat layer exposed (6) Bilateral edema of lower extremity: CODE(S): R60.0 - Localized edema PLAN: Plan The patient tolerated hyperbaric oxygen therapy well which will be continued as per his medical plan.
[2021-12-31 10:35] LABS: Bedside Glucose 151 mg/dL (74-106)
[2021-12-31 10:47] VITALS: BP 118/56; BP 132/64; PULSE 67; PULSE 74; RESP 18; TEMP 36.6
[2022-01-01 08:20] LABS: Bedside Glucose 160 mg/dL (74-106)
--- NOTE | 2022-01-01 08:23 | PCM.HBO.PN ---
History of Present Illness Date of Service: 01/01/22 Chief Complaint: left heel History of Wound: Patient presents for chronic non healing wound to left plantar foot (heel, and recently healed ulcer at arch). A limb and life-threatening infection which required emergent surgical intervention on 05-29-2021. 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 Raphael. He denies fever, chill, nausea, vomiting, pain, odor, redness today. He is keeping weight off of his foot. He continues to take antibiotics as advised. He continues on blood thinner due to his deep venous thrombosis. Progress of Wound: Today is the 11 treatment of hyperbaric oxygen therapy.? The patient is scheduled for 30 treatments total. Subjective Subjective Patient has no concerns Objective Data Objective Data Vital Signs: Vital Signs Temp Pulse Resp BP O2 Del Method 97.8 F 74 18 118/56 L Room Air 12/31/21 10:47 12/31/21 10:47 12/31/21 10:47 12/31/21 10:47 12/28/21 10:22 Oxygen Delivery Method Room Air Body Mass Index (BMI) 33.7 Lab / Micro Data Labs: Laboratory Results - last 24 hr 12/31/21 10:04: POC Glucose 151 H 01/01/22 08:00: POC Glucose 160 H Exam Physical Exam Const alert, oriented x3 and no apparent distress General Appearance: cooperative HEENT normocephalic HEENT Narrative: Bilateral ear tubes in place. Eyes Eyes Narrative: Bilateral ear tubes in place. Resp normal respiratory effort, no use of accessory muscles and clear to auscultation bilaterally Auscultation: wheezes scattered wheezes and throughout Cardio regular rate and regular rhythm Psych affect normal Assessment/Plan Assessment/Plan (1) Osteomyelitis: CODE(S): M86.9 - Osteomyelitis, unspecified (2) Foot osteomyelitis: CODE(S): M86.9 - Osteomyelitis, unspecified QUALIFIERS: Laterality: left Osteomyelitis type: other acute Qualified Code(s): M86.172 - Other acute osteomyelitis, left ankle and foot (3) Chronic ulcer of left foot with necrosis of bone: CODE(S): L97.524 - Non-pressure chronic ulcer of other part of left foot with necrosis of bone (4) Type 2 diabetes mellitus with diabetic polyneuropathy: CODE(S): E11.42 - Type 2 diabetes mellitus with diabetic polyneuropathy QUALIFIERS: Diabetes mellitus [facility] insulin use: with [facility] use Qualified Code(s): E11.42 - Type 2 diabetes mellitus with diabetic polyneuropathy; Z79.4 - termite inspector (current) use of insulin (5) Diabetic foot ulcer: CODE(S): E11.621 - Type 2 diabetes mellitus with foot ulcer; L97.509 - Non-pressure chronic ulcer of other part of unspecified foot with unspecified severity QUALIFIERS: Diabetes mellitus type: type 2 Diabetic foot ulcer location: heel Laterality: left Non-pressure ulcer stage: with fat layer exposed Qualified Code(s): E11.621 - Type 2 diabetes mellitus with foot ulcer; L97.422 - Non-pressure chronic ulcer of left heel and midfoot with fat layer exposed (6) Bilateral edema of lower extremity: CODE(S): R60.0 - Localized edema PLAN: Plan The patient tolerated hyperbaric oxygen therapy well which will be continued as per his medical plan.
[2022-01-01 10:30] LABS: Bedside Glucose 173 mg/dL (74-106)
[2022-01-01 10:54] VITALS: BP 126/53; BP 131/59; PULSE 68; PULSE 77; RESP 17; TEMP 36.4
[2022-01-02 08:20] LABS: Bedside Glucose 162 mg/dL (74-106)
[2022-01-02 09:38] VITALS: BP 134/58; BP 137/71; PULSE 66; PULSE 75; RESP 17; TEMP 36.4
[2022-01-02 10:31] LABS: Bedside Glucose 170 mg/dL (74-106)
[2022-01-02 10:42] VITALS: BMI 33.7
--- NOTE | 2022-01-02 11:05 | PCM.HBO.PN ---
History of Present Illness Date of Service: 01/02/22 Chief Complaint: left heel History of Wound: Patient presents for chronic non healing wound to left plantar foot (heel, and recently healed ulcer at arch). A limb and life-threatening infection which required emergent surgical intervention on 05-29-2021. 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 Raphael. He denies fever, chill, nausea, vomiting, pain, odor, redness today. He is keeping weight off of his foot. He continues to take antibiotics as advised. He continues on blood thinner due to his deep venous thrombosis. Progress of Wound: Today is the 12th treatment of hyperbaric oxygen therapy.? The patient is scheduled for 30 treatments total. The regular credit department manager is seeing improvement on his wound so we will continue with another 20 apply for treatments Subjective Subjective Patient is agreeable and is happy to do more treatments even though he is only done 12 and already seen improvements in his feet Objective Data Objective Data Healing is occurring due to [id number] and looked at the wounds myself doing well Vital Signs: Vital Signs Temp Pulse Resp BP O2 Del Method 97.5 F L 75 17 134/58 H Room Air 01/02/22 09:38 01/02/22 09:38 01/02/22 09:38 01/02/22 09:38 12/28/21 10:22 Oxygen Delivery Method Room Air Body Mass Index (BMI) 33.7 Lab / Micro Data Labs: Laboratory Results - last 24 hr 01/02/22 08:01: POC Glucose 162 H 01/02/22 10:12: POC Glucose 170 H Exam Physical Exam Const alert, oriented x3 and no apparent distress General Appearance: cooperative HEENT normocephalic Eyes Eyes Narrative: Bilateral ear tubes in place. Resp normal respiratory effort and no use of accessory muscles Auscultation: wheezes scattered wheezes and throughout Cardio regular rate and regular rhythm Psych affect normal Nursing Assessment and Debridement Post-Debridement Measurements and Additional Note: Post-Debridement Measurements/Treatment JANESSA - Nurse 1 - General Ulcer Assessment Start: 12/17/21 10:53 Freq: Status: Active Protocol: EVELYN Activity Type Activity Date Activity User E-sign Co-sign Detail Recorded Client Recorded Date Recorded By Document 01/02/22 10:42 ALEJANDRO [id number] 01/02/22 10:43 RB 01/02/22 10:42 - Today's Visit Information Type of service Follow-up Visit (Physician/DENTAL TECHNICIAN METAL ) Arrival Mode Wheelchair Transfer Assistance Manual Patient Identification Verified (Name & Yes ) Patient Requires Transmission-Based No Precautions Height and Weight Body Mass Index (BMI) 33.7 BMI Classification Obese History Since Last Visit- (Skip if this is Patient's initial visit) Have you changed medications since your No last visit? Any new allergies or adverse reactions No Had a fall/change in ADL's that may No increase risk of falls Signs or symptoms of abuse and/or No neglect since last visit Have you been in the hospital since your No last visit? Has dressing in place as prescribed Yes Has compression in place as prescribed No Has offloadiing in place as prescribed Yes Experienced any changes in pain level or No management Left Footwear Multipodus Splint/Boot Pain Scale: 0-10 Numeric Is Patient Pain Free? Yes - Nurse 1 - General Ulcer Measurement Start: 12/17/21 10:53 Freq: Status: Active Protocol: Activity Type Activity Date Activity User E-sign Co-sign Detail Recorded Client Recorded Date Recorded By Document 01/02/22 10:42 ALEJANDRO [id number] 01/02/22 10:43 01/02/22 10:42 Wound Center Nurse 1 #1 left heel cluster -Combined with other wound No -Current Size (cm) - Length 3.8 -Current Size (cm) - Width 4.1 -Current Size (cm) - Depth 0.7 -Total Square Cm 15.58 -Photo Taken Yes -Epithelialization None Present -Undermining/Tunneling No -Circular Undermining No -Exudate Amt Large -Exudate Type Serosanguineous -Wound Margin Thickened -Granulation Amt Medium (34-66%) -Granulation Quality Vander -Slough/Fibrin Yes -Necrosis Amt Medium (34-66%) -Necrotic Tissue Type Adherent Slough -Structure Exposed N/A -Texture (Margaret-wound Skin Appearance) Callus -Moisture (Margaret-wound Skin Appearance) Assessed -Color (Margaret-wound Skin Appearance) Assessed -Temperature (Margaret-wound Skin No Abnormality Appearance) (Pt Warm) -Tenderness on Palpation (Margaret-wound No Skin Appearance) -Ulcer Cleansing Wound Cleanser -Foul Odor after Cleansing No -Anesthetic Used 5% Lidocaine Gel WC - Nurse 3 - General Ulcer D/C NN Start: 12/17/21 10:53 Freq: Status: Active Protocol: Activity Type Activity Date Activity User E-sign Co-sign Detail Recorded Client Recorded Date Recorded By Document 01/01/22 10:54 ML [id number] 01/01/22 11:00 ML 01/01/22 10:54 Pain Scale: 0-10 Numeric Is Patient Pain Free? Yes Wound Care Nurse 3 -Ulcer Cleansing Soap and Water -Foul Odor after Cleansing No -Primary Dressing Applied Aquacel AG 4x4 -Primary Dressing Covered/Secured with Dry Gauze & Roll Gauze, Secured with Tape -Aquacel AG 4x4 1 Assessment/Plan Assessment/Plan (1) Osteomyelitis: CODE(S): M86.9 - Osteomyelitis, unspecified (2) Foot osteomyelitis: CODE(S): M86.9 - Osteomyelitis, unspecified QUALIFIERS: Osteomyelitis type: other acute Laterality: left Qualified Code(s): M86.172 - Other acute osteomyelitis, left ankle and foot (3) Chronic ulcer of left foot with necrosis of bone: CODE(S): L97.524 - Non-pressure chronic ulcer of other part of left foot with necrosis of bone (4) Type 2 diabetes mellitus with diabetic polyneuropathy: CODE(S): E11.42 - Type 2 diabetes mellitus with diabetic polyneuropathy QUALIFIERS: Diabetes mellitus skilled nursing insulin use: with manager long term care use Qualified Code(s): E11.42 - Type 2 diabetes mellitus with diabetic polyneuropathy; Z79.4 - skilled nursing (current) use of insulin (5) Diabetic foot ulcer: CODE(S): E11.621 - Type 2 diabetes mellitus with foot ulcer; L97.509 - Non-pressure chronic ulcer of other part of unspecified foot with unspecified severity QUALIFIERS: Diabetic foot ulcer location: heel Diabetes mellitus type: type 2 Laterality: left Non-pressure ulcer stage: with fat layer exposed Qualified Code(s): E11.621 - Type 2 diabetes mellitus with foot ulcer; L97.422 - Non-pressure chronic ulcer of left heel and midfoot with fat layer exposed (6) Bilateral edema of lower extremity: CODE(S): R60.0 - Localized edema PLAN: Plan The patient tolerated hyperbaric oxygen therapy well which will be continued as per his medical plan. We will reapply for 20 more treatments on his plan for hyperbaric chamber treatments
--- NOTE | 2022-01-02 13:12 | PN.PCM_ITS ---
History of Present Illness Date of Service: 01/02/22 Chief Complaint: left heel History of Wound: And his leg swelling is starting to reducePatient presents for chronic non healing wound to left plantar heel. A limb and life-threatening infection which required emergent surgical intervention on 05-29-2021. 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 He denies fever, chill, nausea, vomiting, pain, odor, redness today. He is keeping weight off of his foot. He continues to take antibiotics as advised and is also undergoing hyperbaric oxygen therapy treatments. He continues on blood thinner due to his deep venous thrombosis and his leg swelling is starting to reduce. Progress of Wound: Significant improvement in left heel ulcer base quality with no longer exposed bone, fibrous, or necrotic tissue Objective Data Objective Data Vital Signs: Vital Signs Temp Pulse Resp BP O2 Del Method 97.5 F L 75 17 134/58 H Room Air 01/02/22 09:38 01/02/22 09:38 01/02/22 09:38 01/02/22 09:38 12/28/21 10:22 Oxygen Delivery Method Room Air Body Mass Index (BMI) 33.7 Lab / Micro Data Labs: Laboratory Results - last 24 hr 01/02/22 08:01: POC Glucose 162 H 01/02/22 10:12: POC Glucose 170 H Physical Exam Narrative Const alert and no apparent distress General Appearance: cooperative and comfortable Extremity There is diffuse decreased left foot/ankle and leg swelling. Healed arch with full epithelialization. No longer bone probing noted to left heel. There is peripheral granulation tissue and minimal peripheral callus also. There is no streaking or odor, compartments remain soft to palpate, there is no fluctuance or bogginess on palpation, no drainage, no visible abscess, no cellulitis, no blistering present. Hematogenous / serosanguineous drainage only upon debridement. Improved healthy granular tissue noted. Periwound moisture and maceration has resolved. Lack of normal epicritic sensation pathic status via light touch. Pain decreased with manipulation and heel compression consistent prior visits normal capillary refill, no acute ischemic skin changes noted, normal temperature bilateral. Const oriented x3 General Appearance: cooperative Skin Skin Narrative: Wounds left heel osteomyelitis Wound Narrative: Neuro Neuro Narrative: Debridement Note Debridement Note Wound debrided: left heel Laterality: Left Wound Grade/Stage: 3 Type of Debridement: Excisional debridement Anesthesia Used: 4% Lidocaine Solution Depth: in the subcutaneous layer Percentage of wound debrided: 100 Instrument Used: #15 blade and - ([employer] ultrasound ) Tissue Removed: fibrous, devitalized subcutaneous, biofilm, slough Severity: Fat Layer Exposed Amount of bleeding with debridement: Mild Bleeding Controlled with: Pressure Patient tolerated procedure: Patient tolerated procedure well Post-Debridement Measurements and Additional Note: Post-Debridement Measurements/Treatment - Nurse 1 - General Ulcer Assessment Start: 12/17/21 10:53 Freq: Status: Active Protocol: EVELYN Activity Type Activity Date Activity User E-sign Co-sign Detail Recorded Client Recorded Date Recorded By Document 12/17/21 11:31 AK [id number] 12/17/21 11:34 AK Document 12/19/21 10:21 DL [id number] 12/19/21 10:27 DL Document 12/21/21 08:46 ML [id number] 12/21/21 08:48 ML Document 12/26/21 10:54 DL [id number] 12/26/21 10:59 DL Document 01/02/22 10:42 RB [id number] 01/02/22 10:43 RB 12/17/21 12/19/21 12/21/21 11:31 10:21 08:46 [facility] Today's Visit Information Type of service Nurse-only Follow-up Visit Nurse-only Visit (Physician/CUT PRESSMAN Visit ) Arrival Mode Wheelchair Wheelchair Wheelchair Transfer Assistance None None Transfer Assist (Other) Patient Identification Verified (Name & Yes Yes Yes ) Patient Requires Transmission-Based No No No Precautions Safety Precautions NA NA Finger Stick Blood Sugar(mg/dl) (if indicated): Height and Weight Body Mass Index (BMI) 33.7 33.7 33.7 BMI Classification Obese Obese Obese Vital Signs Temperature (97.8 F-99.1 F) 96.3 F L Temperature Source Temporal Pulse Rate (60-100) 66 Pulse Location Monitor Respiratory Rate (12-18) Respiratory rate source Blood Pressure (90/60-120/80) 149/62 H Blood Pressure Mean (mm Hg) 91 Source Monitor Comment completed HBO this am History Since Last Visit- (Skip if this is Patient's initial visit) Have you changed medications since your No No No last visit? Any new allergies or adverse reactions No No No Had a fall/change in ADL's that may No No No increase risk of falls Signs or symptoms of abuse and/or No No No neglect since last visit Have you been in the hospital since your No No No last visit? Has dressing in place as prescribed Yes Yes No Has compression in place as prescribed Yes Yes Yes Has offloadiing in place as prescribed Yes Yes Yes Experienced any changes in pain level or No No No management Left Footwear Removable Cast Regular Shoe Walker/Walking Boot Right Footwear Regular Shoe Removable Cast Walker/Walking Boot Pain Scale: 0-10 Numeric Is Patient Pain Free? Yes Yes Yes 12/26/21 01/02/22 10:54 10:42 WC - Today's Visit Information Type of service Follow-up Visit Follow-up Visit (Physician/CUT PRESSMAN (Physician/CUT PRESSMAN ) ) Arrival Mode Ambulatory, Wheelchair Wheelchair Transfer Assistance Manual Manual Transfer Assist (Other) x2 Patient Identification Verified (Name & Yes Yes ) Patient Requires Transmission-Based No No Precautions Safety Precautions Finger Stick Blood Sugar(mg/dl) (if 78 indicated): Height and Weight Body Mass Index (BMI) 33.7 33.7 BMI Classification Obese Obese Vital Signs Temperature (97.8 F-99.1 F) 97.4 F L Temperature Source Temporal Pulse Rate (60-100) 69 Pulse Location Monitor Respiratory Rate (12-18) 18 Respiratory rate source Observation Blood Pressure (90/60-120/80) 130/70 H Blood Pressure Mean (mm Hg) 90 Source Monitor Comment History Since Last Visit- (Skip if this is Patient's initial visit) Have you changed medications since your No No last visit? Any new allergies or adverse reactions No No Had a fall/change in ADL's that may No No increase risk of falls Signs or symptoms of abuse and/or No No neglect since last visit Have you been in the hospital since your No No last visit? Has dressing in place as prescribed Yes Yes Has compression in place as prescribed Yes No Has offloadiing in place as prescribed Yes Yes Experienced any changes in pain level or No No management Left Footwear Multipodus Splint/Boot Right Footwear Pain Scale: 0-10 Numeric Is Patient Pain Free? Yes Yes - Nurse 1 - General Ulcer Measurement Start: 08/01/22 10:53 Freq: Status: Active Protocol: Activity Type Activity Date Activity User E-sign Co-sign Detail Recorded Client Recorded Date Recorded By Document 12/19/21 10:21 DL [id number] 12/19/21 10:27 DL Document 12/26/21 10:54 DL [id number] 12/26/21 10:59 DL Document 01/02/22 10:42 RB [id number] 01/02/22 10:43 RB 12/19/21 12/26/21 01/02/22 10:21 10:54 10:42 Wound Center Nurse 1 #1 left heel cluster -Combined with other wound No -Current Size (cm) - Length 4 3.5 3.8 -Current Size (cm) - Width 3.6 3.4 4.1 -Current Size (cm) - Depth 1 0.5 0.7 -Total Square Cm 14.4 11.90 15.58 -Photo Taken Yes Yes -Epithelialization None Present -Undermining/Tunneling No -Undermining/Tunneling Starts (O'clock 7 8 ) -Undermining/Tunneling Ends (O'clock) 11 11 -Maximum Distance (cm) 1.3 1.5 -Undermining/Tunneling Starts #2 (O' 1 clock) -Undermining/Tunneling Ends #2 (O' 4 clock) -Maximum Distance #2 (cm) 0.2 -Circular Undermining No -Exudate Amt Medium Medium Large -Exudate Type Serosanguineous Serosanguineous Serosanguineous -Wound Margin Thickened Thickened & Thickened Rolled Under -Granulation Amt None Present (0 Small (1-33%) Medium (34-66%) %) -Granulation Quality [place] -Slough/Fibrin Yes -Necrosis Amt Large (67-100%) Medium (34-66%) -Necrotic Tissue Type Adherent Slough Adherent Slough Adherent Slough -Structure Exposed N/A N/A -Texture (Margaret-wound Skin Appearance) Callus Scarring Callus -Moisture (Margaret-wound Skin Appearance) Maceration Maceration Assessed -Color (Margaret-wound Skin Appearance) Hemosiderin Hemosiderin Assessed Staining Staining -Temperature (Margaret-wound Skin No Abnormality No Abnormality No Abnormality Appearance) (Pt Warm) (Pt Warm) (Pt Warm) -Tenderness on Palpation (Margaret-wound No No No Skin Appearance) -Ulcer Cleansing Soap and Water Soap and Water Wound Cleanser -Foul Odor after Cleansing No No No -Anesthetic Used 5% Lidocaine 5% Lidocaine 5% Lidocaine Gel Gel Gel WC - Nurse 2 - General Ulcer CM Notes Start: 12/17/21 10:53 Freq: Status: Active Protocol: Activity Type Activity Date Activity User E-sign Co-sign Detail Recorded Client Recorded Date Recorded By Document 12/19/21 10:49 [id number] 12/19/21 10:52 Document 12/26/21 11:09 [id number] 12/26/21 11:18 12/19/21 12/26/21 10:49 11:09 Wound Center Nurse 2 #1 left heel cluster -Time 10:51 11:10 -Correct Patient Yes Yes -Correct Side, Site, Position Yes Yes -Correct Procedure Yes Yes -Procedure Performed Yes Yes -Type of Procedure Debridement Debridement -Clinical Debridement Subcutaneous Subcutaneous -Tissue Removed Subcutaneous Subcutaneous -Post Debridement (cm) - Length 4.0 3.6 -Post Debridement (cm) - Width 3.7 4 -Post Debridement (cm) - Depth 0.9 0.3 -Total Square (Post) (cm) 14.80 14.4 -Area of Debridement (cm) - Length 4.0 3.6 -Area of Debridement (cm) - Width 3.7 4 -Total Square (Area) (cm) 14.80 14.4 -Tunneling No No -Undermining/Tunneling No No -Circular Undermining No No -Wound/Ulcer Outcome Not Healed Not Healed -Ulcer Cleansing Rinsed/ Rinsed/ Irrigated with Irrigated with Saline Saline -Foul Odor after Cleansing No No -Bioengineered Tissue No No -Bleeding Controlled with Pressure Pressure -Treatment Response Procedure Procedure Tolerated Well Tolerated Well -Offloading Yes Yes -Type of Offloading Camwalker Camwalker -Debridement - Subq, 1st 20sq cm Yes Yes Pain Scale: 0-10 Numeric Is Patient Pain Free? Yes Yes - Nurse 3 - General Ulcer D/C NN Start: 12/17/21 10:53 Freq: Status: Active Protocol: Activity Type Activity Date Activity User E-sign Co-sign Detail Recorded Client Recorded Date Recorded By Document 12/17/21 11:31 AK [id number] 12/17/21 11:34 AK Edit Result 12/17/21 11:31 AK (1) [id number] 12/18/21 06:44 PL Document 12/18/21 10:40 DL [id number] 12/18/21 10:43 DL Edit Result 12/18/21 10:40 DL (2) [id number] 12/19/21 06:42 PL Document 12/19/21 11:20 RB [id number] 12/19/21 11:21 RB Document 12/20/21 11:07 JF [id number] 12/20/21 11:08 JF Document 12/21/21 08:46 ML [id number] 12/21/21 08:48 ML Document 12/26/21 11:22 BMF [id number] 12/26/21 11:23 BMF Document 12/28/21 10:22 MT [id number] 12/28/21 10:50 MT Document 01/01/22 10:54 ML [id number] 01/01/22 11:00 ML Edit Result 01/01/22 10:54 ML (3) [id number] 01/01/22 11:03 ML Document 01/02/22 11:15 BMF [id number] 01/02/22 11:16 BMF (1) Left - Multi-Layered Wrap Application => Multi-Layer Comp - => Left ($) (2) Left - Multi-Layered Wrap Application => Multi-Layer Comp - => Left ($) (3) #1 left heel cluster - Ulcer Cleansing => Soap and Water - Foul Odor after Cleansing => No - Primary Dressing Applied => Aquacel AG 4x4 - Primary Dressing Covered/Secured with => Dry Gauze & Roll => Gauze,Secured with => Tape - Aquacel AG 4x4 => 1 12/17/21 12/18/21 12/19/21 11:31 10:40 11:20 Vital Signs Temperature (97.8 F-99.1 F) 96.3 F L Temperature Source Temporal Pulse Rate (60-100) 66 Pulse Location Monitor Oxygen Delivery Method Blood Pressure (90/60-120/80) 149/62 H Blood Pressure Mean (mm Hg) 91 Source Monitor Pain Scale: 0-10 Numeric Is Patient Pain Free? Yes Yes Yes Wound Care Nurse 3 #1 left heel cluster -Ulcer Cleansing Soap and Water Soap and Water Rinsed/ Irrigated with Saline -Foul Odor after Cleansing No No -Negative Pressure Wound Therapy N/A -Primary Dressing Applied Aquacel AG 4x4, Aquacel AG 4x4 Aquacel AG 2x2 Optilok 6.5x10 -Other Dressing 2 ABD abd nurses hat and 4 x4 gauze, kerlix . kevin -Primary Dressing Covered/Secured with Dry Gauze & Dry Gauze,Dry Roll Gauze, Gauze & Roll Secured with Gauze,Secured Tape with Tape -Other Covering Nurse Hat -Aquacel AG 4x4 1 1 -Aquacel AG 2x2 1 -Optilok 6.5x10 1 Left -Lotion applied to leg before No compression wrap -Multi-Layered Wrap Application Multi-Layer Multi-Layer Comp - Left ($) Comp - Left ($) -Compression Wrap Kevin Wrap -Stockings No Treatment Response Procedure Procedure Tolerated Well Tolerated Well WC - Visit Discharge Discharge Condition Stable Stable Stable Ambulatory Status Wheelchair Wheelchair Wheelchair Transportation Private Auto Private Auto Private Auto Medication Reconcilliation completed & Yes No provided to patient/care provider Clinical Summary of Care Provided Yes Yes Notes: Dressing applied per Jakob Mason LPN. Nurse Visit today after HBO . 12/20/21 12/21/21 12/26/21 11:07 08:46 11:22 Vital Signs Temperature (97.8 F-99.1 F) Temperature Source Pulse Rate (60-100) Pulse Location Oxygen Delivery Method Blood Pressure (90/60-120/80) Blood Pressure Mean (mm Hg) Source Pain Scale: 0-10 Numeric Is Patient Pain Free? Yes Yes Yes Wound Care Nurse 3 #1 left heel cluster -Ulcer Cleansing Soap and Water Soap and Water Rinsed/ Irrigated with Saline -Foul Odor after Cleansing No No No -Negative Pressure Wound Therapy -Primary Dressing Applied Aquacel AG 4x4 Aquacel AG 2x2, Optilok 6.5x10 -Other Dressing non-charge ABD,KEVIN heel hat aquacel-ag used today -Primary Dressing Covered/Secured with Dry Gauze & Dry Gauze & Dry Gauze & Roll Gauze, Roll Gauze, Roll Gauze, Secured with Secured with Secured with Tape Tape Tape,Other -Other Covering ABD pad abd -Aquacel AG 4x4 1 -Aquacel AG 2x2 1 -Optilok 6.5x10 1 Left -Lotion applied to leg before compression wrap -Multi-Layered Wrap Application -Compression Wrap Kevin Wrap Kevin Wrap -Stockings Treatment Response Procedure Tolerated Well WC - Visit Discharge Discharge Condition Stable Stable Ambulatory Status Wheelchair Wheelchair Transportation Private Auto CoinBatch Auto Medication Reconcilliation completed & Yes provided to patient/care provider Clinical Summary of Care Provided Yes Notes: 12/28/21 01/01/22 01/02/22 10:22 10:54 11:15 Vital Signs Temperature (97.8 F-99.1 F) 98 F Temperature Source Temporal Pulse Rate (60-100) 62 Pulse Location Monitor Oxygen Delivery Method Room Air Blood Pressure (90/60-120/80) 116/58 L Blood Pressure Mean (mm Hg) 77 Source Pain Scale: 0-10 Numeric Is Patient Pain Free? Yes Yes Yes Wound Care Nurse 3 #1 left heel cluster -Ulcer Cleansing Soap and Water Soap and Water Rinsed/ Irrigated with Saline -Foul Odor after Cleansing No No -Negative Pressure Wound Therapy -Primary Dressing Applied Aquacel AG 4x4, Aquacel AG 4x4 Other Optilok 6.5x10 -Other Dressing AQUACEL AG -Primary Dressing Covered/Secured with Dry Gauze & Dry Gauze & Dry Gauze & Roll Gauze, Roll Gauze, Roll Gauze, Secured with Secured with Secured with Tape Tape Tape -Other Covering KERRAMAX; ABD, HEEL HAT -Aquacel AG 4x4 1 1 -Aquacel AG 2x2 -Optilok 6.5x10 1 Left -Lotion applied to leg before compression wrap -Multi-Layered Wrap Application -Compression Wrap Kevin Wrap Kevin Wrap -Stockings Treatment Response Procedure Tolerated Well WC - Visit Discharge Discharge Condition Stable Stable Ambulatory Status Wheelchair Wheelchair Transportation Private Auto Private Auto Medication Reconcilliation completed & No provided to patient/care provider Clinical Summary of Care Provided Yes Notes: nurse visit Assessment/Plan Assessment/Plan (1) Foot osteomyelitis: CODE(S): M86.9 - Osteomyelitis, unspecified QUALIFIERS: Osteomyelitis type: other acute Laterality: left Qualified Code(s): M86.172 - Other acute osteomyelitis, left ankle and foot (2) Chronic ulcer of left foot with necrosis of bone: CODE(S): L97.524 - Non-pressure chronic ulcer of other part of left foot with necrosis of bone (3) Type 2 diabetes mellitus with diabetic polyneuropathy: CODE(S): E11.42 - Type 2 diabetes mellitus with diabetic polyneuropathy QUALIFIERS: Diabetes mellitus prison insulin use: with intermediate school teacher use Qualified Code(s): E11.42 - Type 2 diabetes mellitus with diabetic polyneuropathy; Z79.4 - 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 (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) use of insulin (4) Diabetic foot ulcer: CODE(S): E11.621 - Type 2 diabetes mellitus with foot ulcer; L97.509 - Non-pressure chronic ulcer of other part of unspecified foot with unspecified severity QUALIFIERS: Diabetic foot ulcer location: heel Diabetes mellitus type: type 2 Laterality: left Non-pressure ulcer stage: with fat layer exposed Qualified Code(s): E11.621 - Type 2 diabetes mellitus with foot ulcer; L97.422 - Non-pressure chronic ulcer of left heel and midfoot with fat layer exposed (5) Bilateral edema of lower extremity: CODE(S): R60.0 - Localized edema (6) Difficulty in walking: CODE(S): R26.2 - Difficulty in walking, not elsewhere classified (7) Left foot pain: CODE(S): M79.672 - Pain in left foot (8) Deep vein thrombosis (DVT) of left lower extremity: CODE(S): I82.402 - Acute embolism and thrombosis of unspecified deep veins of left lower extremity PLAN: Plan Patient seen and examined. I reviewed and discussed his case. Debridement was performed as noted in the clinical nursing panel. Dressing recommendation: To proceed forward with Aquacel Ag Friday and Friday. This was also washed with soap and water. Offloading: To maintain a strict nonweightbearing status to the ulcer to the foot. To use assistive walking device as well. He has a cam walker. I recommend considering application of total contact casting once he is done being treated for his deep venous thrombosis with estimated remaining time from about 1 month. Infection management: This culture results were reviewed with MRSA, Enterobacter, Enterococcus, and corynebacteria. He has osteomyelitis which was confirmed with bone biopsy sent to microbiology and pathology. It appears an extended course of linezolid is appropriate per infectious disease recommendation orally. This was discussed previously with ID specialist and the patient. Lab trends will be followed weekly. Advance wound options: He has a status change diagnosis of osteomyelitis. I recommend hyperbaric oxygen therapy if he is medically cleared to undergo such treatment. He reports he is available to come in 5 days a week for couple hours each day and he has anticipated reliable transportation. his EF is 65%. Piping Design Specialist clearance was obtained and was advised to continue with hyperbaric oxygen therapy sessions and is doing well so far. I recommend continuation due to the improvement in the quality of the base of his ulcer. I also recommend advanced wound healing product such as TheraSkin to reduce healing time, prevent limb loss, and promote chronic ulcer stimulation. Prior authorization will be completed. This is also medically necessary to prevent limb and life loss. Patient relates he had follow-up appointment with his primary care provider, Priyanka Brown, and relates that she did not change any medication and stated he was doing okay. PCP is leaving the diabetes management up to his ocular care technician, Dr. Mykel Barraza. He was able to follow-up and recommendations were updated. An updated hemoglobin A1c order was provided because we are unable to obtain this in a timely manner from the primary care physician's office. this was 8.6%. To follow up with pain management. It is noted he is already on gabapentin, Percocet, and Tylenol. I do not recommend additional narcotic pain medication. This appears to be controlled at this time. Edema management: Medical management per primary care. To reduce salt in diet. Total contact cast will also aide in edema reduction if this considered upon continued foot stability and resolution of infection status. I only recommend reapplication after he has completed his acute deep venous thrombosis treatment. Arterial studies were reviewed. Showing likely adequate perfusion for healing. Right LAI is 0.99 and left 1.18. Right toe brachial index 0.76 and left 0.71. Referral to Dr. Campos for potential venous and arterial intervention was provided today. He went for consultationon 04-11-21. Will recheck duplex to make sure normal posterior tibial flow into the area of the wound. normal prior LAI noted. Host factors: His multiple comorbidities are noted including diabetes and smoking history. Also recommend improvement in nutritional status which involves taking in adequate protein and also focusing on eating 5-10 whole foods daily. Gait abnormality/walking difficulty: I recommend PT and OT intervention with his home health agency. A referral was provided previously. He is at risk for falling. He is fragile and has demonstrated progressive deterioration. All questions answered. He understands below-knee amputation is an option as well if he cannot keep pressure off the site, if pain becomes intolerable, and if he no longer is able to proceed with a comprehensive wound healing plan. He defers at this time. This was discussed at length today. The benefits and indications of a below-knee amputation were reviewed. He would like to consider a referral to a doctor in the same healthcare system he attends in the [facility]. Patient to follow up in 1 week or call sooner if status worsening or if questions. He will follow-up on Friday for total contact cast evaluation and removal. I answered all of his questions. This note was generated with [employer] dictation software. It may contain incorrect words, spelling, and punctuation that were not noted in checking the note before signing. 21 minutes was spent on this encounter. This included face to face and non face to face care including preparing for the visit, reviewing the history, performing the exam, counseling and providing education to the patient, family, or caregiver, ordering medications/test/ procedures if indicated as documented, communicating with other healthcare providers, documenting information in the medical record, interpreting / sharing this information when indicated as documented, and care coordination.
[2022-01-03 08:26] LABS: Bedside Glucose 147 mg/dL (74-106)
--- NOTE | 2022-01-03 08:33 | PCM.HBO.PN ---
History of Present Illness Date of Service: 01/02/22 Chief Complaint: left heel History of Wound: And his leg swelling is starting to reducePatient presents for chronic non healing wound to left plantar heel. A limb and life-threatening infection which required emergent surgical intervention on 05-29-2021. 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 He denies fever, chill, nausea, vomiting, pain, odor, redness today. He is keeping weight off of his foot. He continues to take antibiotics as advised and is also undergoing hyperbaric oxygen therapy treatments. He continues on blood thinner due to his deep venous thrombosis and his leg swelling is starting to reduce. Progress of Wound: Today is the 13th treatment of hyperbaric oxygen therapy.? The patient is scheduled for 30 treatments total. Subjective Subjective Patient has no concerns Objective Data Objective Data Vital Signs: Vital Signs Temp Pulse Resp BP O2 Del Method 97.5 F L 75 17 134/58 H Room Air 01/02/22 09:38 01/02/22 09:38 01/02/22 09:38 01/02/22 09:38 12/28/21 10:22 Oxygen Delivery Method Room Air Body Mass Index (BMI) 33.7 Lab / Micro Data Labs: Laboratory Results - last 24 hr 01/02/22 10:12: POC Glucose 170 H 01/03/22 08:05: POC Glucose 147 H Exam Physical Exam Const alert, oriented x3 and no apparent distress General Appearance: cooperative HEENT normocephalic Eyes Eyes Narrative: Bilateral ear tubes in place. Resp normal respiratory effort, no use of accessory muscles and clear to auscultation bilaterally Auscultation: wheezes scattered wheezes and throughout Cardio regular rate and regular rhythm Psych affect normal Nursing Assessment and Debridement Post-Debridement Measurements and Additional Note: Post-Debridement Measurements/Treatment WC - Nurse 1 - General Ulcer Assessment Start: 12/17/21 10:53 Freq: Status: Active Protocol: EVELYN Activity Type Activity Date Activity User E-sign Co-sign Detail Recorded Client Recorded Date Recorded By Document 01/02/22 10:42 ALEJANDRO [id number] 01/02/22 10:43 RB 01/02/22 10:42 JANESSA - Today's Visit Information Type of service Follow-up Visit (Physician/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 Any new allergies or adverse reactions No Had a fall/change in ADL's that may No increase risk of falls Signs or symptoms of abuse and/or No neglect since last visit Have you been in the hospital since your No last visit? Has dressing in place as prescribed Yes Has compression in place as prescribed No Has offloadiing in place as prescribed Yes Experienced any changes in pain level or No management Left Footwear Multipodus Splint/Boot Pain Scale: 0-10 Numeric Is Patient Pain Free? Yes JANESSA - Nurse 1 - General Ulcer Measurement Start: 12/17/21 10:53 Freq: Status: Active Protocol: Activity Type Activity Date Activity User E-sign Co-sign Detail Recorded Client Recorded Date Recorded By Document 01/02/22 10:42 ALEJANDRO [id number] 01/02/22 10:43 ALEJANDRO 01/02/22 10:42 Wound Center Nurse 1 #1 left heel cluster -Combined with other wound No -Current Size (cm) - Length 3.8 -Current Size (cm) - Width 4.1 -Current Size (cm) - Depth 0.7 -Total Square Cm 15.58 -Photo Taken Yes -Epithelialization None Present -Undermining/Tunneling No -Circular Undermining No -Exudate Amt Large -Exudate Type Serosanguineous -Wound Margin Thickened -Granulation Amt Medium (34-66%) -Granulation Quality [place] -Slough/Fibrin Yes -Necrosis Amt Medium (34-66%) -Necrotic Tissue Type Adherent Slough -Structure Exposed N/A -Texture (Margaret-wound Skin Appearance) Callus -Moisture (Margaret-wound Skin Appearance) Assessed -Color (Margaret-wound Skin Appearance) Assessed -Temperature (Margaret-wound Skin No Abnormality Appearance) (Pt Warm) -Tenderness on Palpation (Margaret-wound No Skin Appearance) -Ulcer Cleansing Wound Cleanser -Foul Odor after Cleansing No -Anesthetic Used 5% Lidocaine Gel JANESSA - Nurse 2 - General Ulcer CM Notes Start: 12/17/21 10:53 Freq: Status: Active Protocol: Activity Type Activity Date Activity User E-sign Co-sign Detail Recorded Client Recorded Date Recorded By Document 01/02/22 11:30 [id number] 01/02/22 15:40 01/02/22 11:30 Wound Center Nurse 2 -Time 15:39 -Correct Patient Yes -Correct Side, Site, Position Yes -Correct Procedure Yes -Procedure Performed Yes -Type of Procedure Debridement -Clinical Debridement Subcutaneous -Tissue Removed Subcutaneous -Post Debridement (cm) - Length 3.8 -Post Debridement (cm) - Width 4.2 -Post Debridement (cm) - Depth 0.7 -Total Square (Post) (cm) 15.96 -Area of Debridement (cm) - Length 3.8 -Area of Debridement (cm) - Width 4.2 -Total Square (Area) (cm) 15.96 -Tunneling No -Undermining/Tunneling No -Circular Undermining No -Wound/Ulcer Outcome Not Healed -Ulcer Cleansing Rinsed/ Irrigated with Saline -Foul Odor after Cleansing No -Bioengineered Tissue No -Bleeding Controlled with Pressure -Treatment Response Procedure Tolerated Well -Offloading Yes -Type of Offloading Camwalker -Debridement - Subq, 1st 20sq cm Yes Pain Scale: 0-10 Numeric Is Patient Pain Free? Yes WC - Nurse 3 - General Ulcer D/C NN Start: 12/17/21 10:53 Freq: Status: Active Protocol: Activity Type Activity Date Activity User E-sign Co-sign Detail Recorded Client Recorded Date Recorded By Document 01/01/22 10:54 ML [id number] 01/01/22 11:00 ML Document 01/02/22 11:15 [facility] [id number] 01/02/22 11:16 [facility] 01/01/22 01/02/22 10:54 11:15 Pain Scale: 0-10 Numeric Is Patient Pain Free? Yes Yes Wound Care Nurse 3 #1 left heel cluster -Ulcer Cleansing Soap and Water Rinsed/ Irrigated with Saline -Foul Odor after Cleansing No No -Primary Dressing Applied Aquacel AG 4x4 Other -Other Dressing AQUACEL AG -Primary Dressing Covered/Secured with Dry Gauze & Dry Gauze & Roll Gauze, Roll Gauze, Secured with Secured with Tape Tape -Other Covering KERRAMAX; ABD, HEEL HAT -Aquacel AG 4x4 1 Left -Compression Wrap Kevin Wrap Treatment Response Procedure Tolerated Well WC - Visit Discharge Discharge Condition Stable Ambulatory Status Wheelchair Transportation Private Auto Assessment/Plan Assessment/Plan (1) Osteomyelitis: CODE(S): M86.9 - Osteomyelitis, unspecified (2) Foot osteomyelitis: CODE(S): M86.9 - Osteomyelitis, unspecified QUALIFIERS: Laterality: left Osteomyelitis type: other acute Qualified Code(s): M86.172 - Other acute osteomyelitis, left ankle and foot (3) Chronic ulcer of left foot with necrosis of bone: CODE(S): L97.524 - Non-pressure chronic ulcer of other part of left foot with necrosis of bone (4) Type 2 diabetes mellitus with diabetic polyneuropathy: CODE(S): E11.42 - Type 2 diabetes mellitus with diabetic polyneuropathy QUALIFIERS: Diabetes mellitus half-way insulin use: with half-way use Qualified Code(s): E11.42 - Type 2 diabetes mellitus with diabetic polyneuropathy; Z79.4 - 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 of insulin (5) Diabetic foot ulcer: CODE(S): E11.621 - Type 2 diabetes mellitus with foot ulcer; L97.509 - Non-pressure chronic ulcer of other part of unspecified foot with unspecified severity QUALIFIERS: Diabetes mellitus type: type 2 Diabetic foot ulcer location: heel Laterality: left Non-pressure ulcer stage: with fat layer exposed Qualified Code(s): E11.621 - Type 2 diabetes mellitus with foot ulcer; L97.422 - Non-pressure chronic ulcer of left heel and midfoot with fat layer exposed (6) Bilateral edema of lower extremity: CODE(S): R60.0 - Localized edema PLAN: Plan The patient tolerated hyperbaric oxygen therapy well which will be continued as per his medical plan.
[2022-01-03 10:41] LABS: Bedside Glucose 185 mg/dL (74-106)
[2022-01-03 12:25] VITALS: BP 136/62; BP 153/59; PULSE 68; PULSE 72; RESP 16; RESP 17; TEMP 36.2
[2022-01-04 08:20] LABS: Bedside Glucose 167 mg/dL (74-106)
[2022-01-04 08:57] VITALS: BP 128/54; BP 134/62; PULSE 65; PULSE 74; RESP 18; TEMP 36.2
[2022-01-04 10:36] LABS: Bedside Glucose 170 mg/dL (74-106)
--- NOTE | 2022-01-04 16:17 | PCM.HBO.PN ---
History of Present Illness Date of Service: 01/02/22 Chief Complaint: left heel History of Wound: And his leg swelling is starting to reducePatient presents for chronic non healing wound to left plantar heel. A limb and life-threatening infection which required emergent surgical intervention on 05-29-2021. 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 He denies fever, chill, nausea, vomiting, pain, odor, redness today. He is keeping weight off of his foot. He continues to take antibiotics as advised and is also undergoing hyperbaric oxygen therapy treatments. He continues on blood thinner due to his deep venous thrombosis and his leg swelling is starting to reduce. Progress of Wound: Today is the 14th treatment of hyperbaric oxygen therapy.? The patient is scheduled for 30 treatments total. Subjective Subjective Patient has no concerns Objective Data Objective Data Vital Signs: Vital Signs Temp Pulse Resp BP O2 Del Method 97.2 F L 74 18 128/54 H Room Air 01/04/22 08:57 01/04/22 08:57 01/04/22 08:57 01/04/22 08:57 12/28/21 10:22 Oxygen Delivery Method Room Air Body Mass Index (BMI) 33.7 Lab / Micro Data Labs: Laboratory Results - last 24 hr 01/04/22 08:01: POC Glucose 167 H 01/04/22 10:15: POC Glucose 170 H Exam Physical Exam Const alert, oriented x3 and no apparent distress General Appearance: cooperative HEENT normocephalic Nose: external nose normal and other Other Details: Bilateral ear tubes in place. Resp normal respiratory effort, no use of accessory muscles and clear to auscultation bilaterally Auscultation: wheezes scattered wheezes and throughout Cardio regular rate and regular rhythm Psych affect normal Nursing Assessment and Debridement Post-Debridement Measurements and Additional Note: Post-Debridement Measurements/Treatment WC - Nurse 1 - General Ulcer Assessment Start: 12/17/21 10:53 Freq: Status: Active Protocol: EVELYN Activity Type Activity Date Activity User E-sign Co-sign Detail Recorded Client Recorded Date Recorded By Document 01/02/22 10:42 ALEJANDRO [id number] 01/02/22 10:43 ALEJANDRO 01/02/22 10:42 JANESSA - Today's Visit Information Type of service Follow-up Visit (Physician/ALLIANCE MANAGER ) Arrival Mode Wheelchair Transfer Assistance Manual Patient Identification Verified (Name & Yes ) Patient Requires Transmission-Based No Precautions Height and Weight Body Mass Index (BMI) 33.7 BMI Classification Obese History Since Last Visit- (Skip if this is Patient's initial visit) Have you changed medications since your No last visit? Any new allergies or adverse reactions No Had a fall/change in ADL's that may No increase risk of falls Signs or symptoms of abuse and/or No neglect since last visit Have you been in the hospital since your No last visit? Has dressing in place as prescribed Yes Has compression in place as prescribed No Has offloadiing in place as prescribed Yes Experienced any changes in pain level or No management Left Footwear Multipodus Splint/Boot Pain Scale: 0-10 Numeric Is Patient Pain Free? Yes - Nurse 1 - General Ulcer Measurement Start: 12/17/21 10:53 Freq: Status: Active Protocol: Activity Type Activity Date Activity User E-sign Co-sign Detail Recorded Client Recorded Date Recorded By Document 01/02/22 10:42 ALEJANDRO [id number] 01/02/22 10:43 ALEJANDRO 01/02/22 10:42 Wound Center Nurse 1 #1 left heel cluster -Combined with other wound No -Current Size (cm) - Length 3.8 -Current Size (cm) - Width 4.1 -Current Size (cm) - Depth 0.7 -Total Square Cm 15.58 -Photo Taken Yes -Epithelialization None Present -Undermining/Tunneling No -Circular Undermining No -Exudate Amt Large -Exudate Type Serosanguineous -Wound Margin Thickened -Granulation Amt Medium (34-66%) -Granulation Quality [place] -Slough/Fibrin Yes -Necrosis Amt Medium (34-66%) -Necrotic Tissue Type Adherent Slough -Structure Exposed N/A -Texture (Margaret-wound Skin Appearance) Callus -Moisture (Margaret-wound Skin Appearance) Assessed -Color (Margaret-wound Skin Appearance) Assessed -Temperature (Margaret-wound Skin No Abnormality Appearance) (Pt Warm) -Tenderness on Palpation (Margaret-wound No Skin Appearance) -Ulcer Cleansing Wound Cleanser -Foul Odor after Cleansing No -Anesthetic Used 5% Lidocaine Gel JANESSA - Nurse 2 - General Ulcer CM Notes Start: 12/17/21 10:53 Freq: Status: Active Protocol: Activity Type Activity Date Activity User E-sign Co-sign Detail Recorded Client Recorded Date Recorded By Document 01/02/22 11:30 [id number] 01/02/22 15:40 DANIEL 01/02/22 11:30 Wound Center Nurse 2 -Time 15:39 -Correct Patient Yes -Correct Side, Site, Position Yes -Correct Procedure Yes -Procedure Performed Yes -Type of Procedure Debridement -Clinical Debridement Subcutaneous -Tissue Removed Subcutaneous -Post Debridement (cm) - Length 3.8 -Post Debridement (cm) - Width 4.2 -Post Debridement (cm) - Depth 0.7 -Total Square (Post) (cm) 15.96 -Area of Debridement (cm) - Length 3.8 -Area of Debridement (cm) - Width 4.2 -Total Square (Area) (cm) 15.96 -Tunneling No -Undermining/Tunneling No -Circular Undermining No -Wound/Ulcer Outcome Not Healed -Ulcer Cleansing Rinsed/ Irrigated with Saline -Foul Odor after Cleansing No -Bioengineered Tissue No -Bleeding Controlled with Pressure -Treatment Response Procedure Tolerated Well -Offloading Yes -Type of Offloading Camwalker -Debridement - Subq, 1st 20sq cm Yes Pain Scale: 0-10 Numeric Is Patient Pain Free? Yes WC - Nurse 3 - General Ulcer D/C NN Start: 12/17/21 10:53 Freq: Status: Active Protocol: Activity Type Activity Date Activity User E-sign Co-sign Detail Recorded Client Recorded Date Recorded By Document 01/02/22 11:15 [facility] [id number] 01/02/22 11:16 [facility] Document 01/03/22 12:25 ML [id number] 01/03/22 12:32 ML 01/02/22 01/03/22 11:15 12:25 Pain Scale: 0-10 Numeric Is Patient Pain Free? Yes Yes Wound Care Nurse 3 #1 left heel cluster -Ulcer Cleansing Rinsed/ Soap and Water Irrigated with Saline -Foul Odor after Cleansing No No -Primary Dressing Applied Other Aquacel AG 4x4 -Other Dressing AQUACEL AG -Primary Dressing Covered/Secured with Dry Gauze & Dry Gauze & Roll Gauze, Roll Gauze, Secured with Secured with Tape Tape -Other Covering KERRAMAX; ABD, KEVIN HEEL HAT -Aquacel AG 4x4 0 Left -Compression Wrap Kevin Wrap Treatment Response Procedure Tolerated Well WC - Visit Discharge Discharge Condition Stable Ambulatory Status Wheelchair Transportation Private Auto Assessment/Plan Assessment/Plan (1) Osteomyelitis: CODE(S): M86.9 - Osteomyelitis, unspecified (2) Foot osteomyelitis: CODE(S): M86.9 - Osteomyelitis, unspecified QUALIFIERS: Osteomyelitis type: other acute Laterality: left Qualified Code(s): M86.172 - Other acute osteomyelitis, left ankle and foot (3) Chronic ulcer of left foot with necrosis of bone: CODE(S): L97.524 - Non-pressure chronic ulcer of other part of left foot with necrosis of bone (4) Type 2 diabetes mellitus with diabetic polyneuropathy: CODE(S): E11.42 - Type 2 diabetes mellitus with diabetic polyneuropathy QUALIFIERS: Diabetes mellitus half-way insulin use: with half-way use Qualified Code(s): E11.42 - Type 2 diabetes mellitus with diabetic polyneuropathy; 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 (5) Diabetic foot ulcer: CODE(S): E11.621 - Type 2 diabetes mellitus with foot ulcer; L97.509 - Non-pressure chronic ulcer of other part of unspecified foot with unspecified severity QUALIFIERS: Diabetic foot ulcer location: heel Diabetes mellitus type: type 2 Laterality: left Non-pressure ulcer stage: with fat layer exposed Qualified Code(s): E11.621 - Type 2 diabetes mellitus with foot ulcer; L97.422 - Non-pressure chronic ulcer of left heel and midfoot with fat layer exposed (6) Bilateral edema of lower extremity: CODE(S): R60.0 - Localized edema PLAN: Plan The patient tolerated hyperbaric oxygen therapy well which will be continued as per his medical plan.
--- NOTE | 2022-01-07 08:22 | PCM.HBO.PN ---
History of Present Illness Date of Service: 01/07/22 Chief Complaint: left heel History of Wound: And his leg swelling is starting to reducePatient presents for chronic non healing wound to left plantar heel. A limb and life-threatening infection which required emergent surgical intervention on 05-29-2021. 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 He denies fever, chill, nausea, vomiting, pain, odor, redness today. He is keeping weight off of his foot. He continues to take antibiotics as advised and is also undergoing hyperbaric oxygen therapy treatments. He continues on blood thinner due to his deep venous thrombosis and his leg swelling is starting to reduce. Progress of Wound: Today is the 15th treatment of hyperbaric oxygen therapy.? The patient is scheduled for 30 treatments total. Subjective Subjective Patient has no concerns Objective Data Objective Data Vital Signs: Vital Signs Temp Pulse Resp BP O2 Del Method 97.2 F L 74 18 128/54 H Room Air 01/04/22 08:57 01/04/22 08:57 01/04/22 08:57 01/04/22 08:57 12/28/21 10:22 Oxygen Delivery Method Room Air Body Mass Index (BMI) 33.7 Exam Physical Exam Const alert, oriented x3 and no apparent distress General Appearance: cooperative HEENT normocephalic HEENT Narrative: Bilateral ear tubes in place. Nose: external nose normal Resp normal respiratory effort, no use of accessory muscles and clear to auscultation bilaterally Auscultation: wheezes scattered wheezes and throughout Cardio regular rate and regular rhythm Psych affect normal Assessment/Plan Assessment/Plan (1) Osteomyelitis: CODE(S): M86.9 - Osteomyelitis, unspecified (2) Foot osteomyelitis: CODE(S): M86.9 - Osteomyelitis, unspecified QUALIFIERS: Laterality: left Osteomyelitis type: other acute Qualified Code(s): M86.172 - Other acute osteomyelitis, left ankle and foot (3) Chronic ulcer of left foot with necrosis of bone: CODE(S): L97.524 - Non-pressure chronic ulcer of other part of left foot with necrosis of bone (4) Type 2 diabetes mellitus with diabetic polyneuropathy: CODE(S): E11.42 - Type 2 diabetes mellitus with diabetic polyneuropathy QUALIFIERS: Diabetes mellitus intermodal dispatcher insulin use: with intermodal dispatcher use Qualified Code(s): E11.42 - Type 2 diabetes mellitus with diabetic polyneuropathy; Z79.4 - intermediate (current) use of insulin (5) Diabetic foot ulcer: CODE(S): E11.621 - Type 2 diabetes mellitus with foot ulcer; L97.509 - Non-pressure chronic ulcer of other part of unspecified foot with unspecified severity QUALIFIERS: Diabetes mellitus type: type 2 Diabetic foot ulcer location: heel Laterality: left Non-pressure ulcer stage: with fat layer exposed Qualified Code(s): E11.621 - Type 2 diabetes mellitus with foot ulcer; L97.422 - Non-pressure chronic ulcer of left heel and midfoot with fat layer exposed (6) Bilateral edema of lower extremity: CODE(S): R60.0 - Localized edema PLAN: Plan The patient tolerated hyperbaric oxygen therapy well which will be continued as per his medical plan.
[2022-01-07 08:25] LABS: Bedside Glucose 227 mg/dL (74-106)
[2022-01-07 08:48] VITALS: BP 142/71; BP 149/75; PULSE 68; PULSE 71; RESP 18; TEMP 36.2
[2022-01-07 10:36] LABS: Bedside Glucose 207 mg/dL (74-106)
[2022-01-08 10:35] LABS: Bedside Glucose 195 mg/dL (74-106)
[2022-01-08 10:51] VITALS: BP 131/53; BP 131/66; PULSE 60; PULSE 68; RESP 17; RESP 18; TEMP 36.3
[2022-01-08 12:40] LABS: Bedside Glucose 196 mg/dL (74-106)
--- NOTE | 2022-01-08 13:22 | PCM.HBO.PN ---
History of Present Illness Date of Service: 01/08/22 Chief Complaint: Osteomyelitis, left foot History of Wound: The patient presented for a chronic, non-healing wound to left heel with osteomyelitis. A limb and life-threatening infection required emergent surgical intervention on 05-29-2021. 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 He denies fever, chill, nausea, vomiting, pain, odor, redness today. He is keeping weight off of his foot. He continues to take antibiotics as advised and is also undergoing hyperbaric oxygen therapy treatments. He continues on blood thinner due to his deep venous thrombosis and his leg swelling is starting to reduce. Subjective Subjective Hyperbaric oxygen therapy was administered as per the facility's protocol. Hyperbaric oxygen therapy was administered at 2 abena for 90 minutes with no air breaks. Today's session represents the 16th such session of a planned 30 sessions. Patient tolerated hyperbaric oxygen therapy well, without complaints or complications. Upon emergence from the hyperbaric chamber, the patient's vital signs remained stable. He was discharged in good condition. Pre and post blood glucose measurements are documented elsewhere. Objective Data Objective Data Vital Signs: Vital Signs Temp Pulse Resp BP O2 Del Method 97.4 F L 68 18 131/53 H Room Air 01/08/22 10:51 01/08/22 10:51 01/08/22 10:51 01/08/22 10:51 12/28/21 10:22 Oxygen Delivery Method Room Air Body Mass Index (BMI) 33.7 Lab / Micro Data Labs: Laboratory Results - last 24 hr 01/08/22 10:17: POC Glucose 195 H 01/08/22 12:22: POC Glucose 196 H Exam Physical Exam Const alert, oriented x3, no apparent distress and well nourished General Appearance: cooperative and well developed HEENT normocephalic and EAC's normal Head and Scalp: atraumatic Eyes PERRL and EOMs intact bilaterally Neck supple and no JVD Resp normal respiratory effort and no use of accessory muscles Effort and Inspection: able to speak in complete sentences Psych affect normal Appearance: grossly normal and well kempt Assessment/Plan Assessment/Plan (1) Osteomyelitis: CODE(S): M86.9 - Osteomyelitis, unspecified (2) Osteomyelitis of foot, left, acute: CODE(S): M86.172 - Other acute osteomyelitis, left ankle and foot (3) Foot osteomyelitis: CODE(S): M86.9 - Osteomyelitis, unspecified QUALIFIERS: Osteomyelitis type: other acute Laterality: left Qualified Code(s): M86.172 - Other acute osteomyelitis, left ankle and foot (4) Chronic ulcer of left foot with necrosis of bone: CODE(S): L97.524 - Non-pressure chronic ulcer of other part of left foot with necrosis of bone (5) Type 2 diabetes mellitus with diabetic polyneuropathy: CODE(S): E11.42 - Type 2 diabetes mellitus with diabetic polyneuropathy QUALIFIERS: Diabetes mellitus prison insulin use: with prison use Qualified Code(s): E11.42 - Type 2 diabetes mellitus with diabetic polyneuropathy; Z79.4 - [facility] (current) use of insulin (6) Diabetic foot ulcer: CODE(S): E11.621 - Type 2 diabetes mellitus with foot ulcer; L97.509 - Non-pressure chronic ulcer of other part of unspecified foot with unspecified severity QUALIFIERS: Diabetic foot ulcer location: heel Diabetes mellitus type: type 2 Laterality: left Non-pressure ulcer stage: with fat layer exposed Qualified Code(s): E11.621 - Type 2 diabetes mellitus with foot ulcer; L97.422 - Non-pressure chronic ulcer of left heel and midfoot with fat layer exposed (7) Bilateral edema of lower extremity: CODE(S): R60.0 - Localized edema PLAN: Plan The patient tolerated hyperbaric oxygen therapy well, which will be continued as per his medical plan.
[2022-01-09 08:51] VITALS: BP 121/49; PULSE 67; RESP 16; TEMP 35.7; BMI 33.7
[2022-01-09 09:46] LABS: Bedside Glucose 213 mg/dL (74-106)
--- NOTE | 2022-01-09 10:39 | PN.PCM_ITS ---
History of Present Illness Date of Service: 01/09/22 Chief Complaint: Osteomyelitis and chronic delayed healing ulcer, left foot History of Wound: The patient presented for a chronic, non-healing wound to left heel with osteomyelitis. A limb and life-threatening infection required emergent surgical intervention on 05-29-2021. 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 He denies fever, chill, nausea, vomiting, pain, odor, redness today. He is keeping weight off of his foot. He continues to take antibiotics as advised and is also undergoing hyperbaric oxygen therapy treatments. He continues on blood thinner due to his deep venous thrombosis and his leg swelling is starting to reduce. Progress of Wound: stable, improving quality and reduced depth Objective Data Objective Data Vital Signs: Vital Signs Temp Pulse Resp BP O2 Del Method 96.3 F L 67 16 121/49 H Room Air 01/09/22 08:51 01/09/22 08:51 01/09/22 08:51 01/09/22 08:51 01/09/22 08:51 Oxygen Delivery Method Room Air Body Mass Index (BMI) 33.7 Lab / Micro Data Labs: Laboratory Results - last 24 hr 01/08/22 12:22: POC Glucose 196 H 01/09/22 09:26: POC Glucose 213 H Physical Exam Narrative Const alert and no apparent distress General Appearance: cooperative and comfortable Extremity There is diffuse decreased left foot/ankle and leg swelling. Healed arch with full epithelialization. No longer bone probing noted to left heel. There is peripheral granulation tissue and minimal peripheral callus also. There is no streaking or odor, compartments remain soft to palpate, there is no fluctuance or bogginess on palpation, no drainage, no visible abscess, no cellulitis, no blistering present. Hematogenous / serosanguineous drainage only upon debridement. Improved healthy granular tissue noted. Periwound moisture and maceration has resolved. Lack of normal epicritic sensation via light touch. Pain decreased with manipu lation and heel compression consistent prior visits normal capillary refill, no acute ischemic skin changes noted, normal temperature bilateral. Const oriented x3 General Appearance: cooperative Skin Skin Narrative: Wounds left heel osteomyelitis Wound Narrative: Neuro Neuro Narrative: Debridement Note Debridement Note Wound debrided: left heel Laterality: Left Wound Grade/Stage: 3 Type of Debridement: Excisional debridement Anesthesia Used: 4% Lidocaine Solution Depth: in the subcutaneous layer Percentage of wound debrided: 100 Instrument Used: #15 blade and - ([facility] ultrasound ) Tissue Removed: fibrous, devitalized subcutaneous, biofilm, slough Severity: Fat Layer Exposed Amount of bleeding with debridement: Mild Bleeding Controlled with: Pressure Patient tolerated procedure: Patient tolerated procedure well Post-Debridement Measurements and Additional Note: Post-Debridement Measurements/Treatment - Nurse 1 - General Ulcer Assessment Start: 12/17/21 10:53 Freq: Status: Active Protocol: EVELYN Activity Type Activity Date Activity User E-sign Co-sign Detail Recorded Client Recorded Date Recorded By Document 12/17/21 11:31 AK [id number] 12/17/21 11:34 AK Document 12/19/21 10:21 DL [id number] 12/19/21 10:27 DL Document 12/21/21 08:46 ML [id number] 12/21/21 08:48 ML Document 12/26/21 10:54 DL [id number] 12/26/21 10:59 DL Document 01/02/22 10:42 RB [id number] 01/02/22 10:43 RB Document 01/09/22 08:51 [facility] [id number] 01/09/22 08:59 BMF 12/17/21 12/19/21 12/21/21 11:31 10:21 08:46 [facility] Today's Visit Information Type of service Nurse-only Follow-up Visit Nurse-only Visit (Physician/HEALTH PROGRAM DIRECTOR Visit ) Arrival Mode Wheelchair Wheelchair Wheelchair Transfer Assistance None None Transfer Assist (Other) Patient Identification Verified (Name & Yes Yes Yes ) Patient Requires Transmission-Based No No No Precautions Safety Precautions NA NA Finger Stick Blood Sugar(mg/dl) (if indicated): Height and Weight Body Mass Index (BMI) 33.7 33.7 33.7 BMI Classification Obese Obese Obese Vital Signs Temperature (97.8 F-99.1 F) 96.3 F L Temperature Source Temporal Pulse Rate (60-100) 66 Pulse Location Monitor Respiratory Rate (12-18) Respiratory rate source Oxygen Delivery Method Blood Pressure (90/60-120/80) 149/62 H Blood Pressure Mean (mm Hg) 91 Source Monitor Position Blood Pressure Location Comment completed HBO this am History Since Last Visit- (Skip if this is Patient's initial visit) Have you changed medications since your No No No last visit? Any new allergies or adverse reactions No No No Had a fall/change in ADL's that may No No No increase risk of falls Signs or symptoms of abuse and/or No No No neglect since last visit Have you been in the hospital since your No No No last visit? Has dressing in place as prescribed Yes Yes No Has compression in place as prescribed Yes Yes Yes Has offloadiing in place as prescribed Yes Yes Yes Experienced any changes in pain level or No No No management Left Footwear Removable Cast Regular Shoe Walker/Walking Boot Right Footwear Regular Shoe Removable Cast Walker/Walking Boot Pain Scale: 0-10 Numeric Is Patient Pain Free? Yes Yes Yes 12/26/21 01/02/22 01/09/22 10:54 10:42 08:51 WC - Today's Visit Information Type of service Follow-up Visit Follow-up Visit Follow-up Visit (Physician/HEALTH PROGRAM DIRECTOR (Physician/HEALTH PROGRAM DIRECTOR (Physician/HEALTH PROGRAM DIRECTOR ) ) ) Arrival Mode Ambulatory, Wheelchair Wheelchair Wheelchair Transfer Assistance Manual Manual Other Transfer Assist (Other) x2 stand by Patient Identification Verified (Name & Yes Yes Yes ) Patient Requires Transmission-Based No No No Precautions Safety Precautions Finger Stick Blood Sugar(mg/dl) (if 78 indicated): Height and Weight Body Mass Index (BMI) 33.7 33.7 33.7 BMI Classification Obese Obese Obese Vital Signs Temperature (97.8 F-99.1 F) 97.4 F L 96.3 F L Temperature Source Temporal Temporal Pulse Rate (60-100) 69 67 Pulse Location Monitor Monitor Respiratory Rate (12-18) 18 16 Respiratory rate source Observation Observation Oxygen Delivery Method Room Air Blood Pressure (90/60-120/80) 130/70 H 121/49 H Blood Pressure Mean (mm Hg) 90 73 Source Monitor Monitor Position Sitting Blood Pressure Location Left Arm Comment History Since Last Visit- (Skip if this is Patient's initial visit) Have you changed medications since your No No No last visit? Any new allergies or adverse reactions No No No Had a fall/change in ADL's that may No No No increase risk of falls Signs or symptoms of abuse and/or No No No neglect since last visit Have you been in the hospital since your No No No last visit? Has dressing in place as prescribed Yes Yes Yes Has compression in place as prescribed Yes No Yes Has offloadiing in place as prescribed Yes Yes Yes Experienced any changes in pain level or No No No management Left Footwear Multipodus Removable Cast Splint/Boot Walker/Walking Boot Right Footwear Regular Shoe Pain Scale: 0-10 Numeric Is Patient Pain Free? Yes Yes Yes WC - Nurse 1 - General Ulcer Measurement Start: 12/17/21 10:53 Freq: Status: Active Protocol: Activity Type Activity Date Activity User E-sign Co-sign Detail Recorded Client Recorded Date Recorded By Document 12/19/21 10:21 DL [id number] 12/19/21 10:27 DL Document 12/26/21 10:54 DL [id number] 12/26/21 10:59 DL Document 01/02/22 10:42 RB [id number] 01/02/22 10:43 RB Document 01/09/22 08:51 BMF [id number] 01/09/22 08:59 BMF 12/19/21 12/26/21 01/02/22 10:21 10:54 10:42 Wound Center Nurse 1 #1 left heel cluster -Combined with other wound No -Current Size (cm) - Length 4 3.5 3.8 -Current Size (cm) - Width 3.6 3.4 4.1 -Current Size (cm) - Depth 1 0.5 0.7 -Total Square Cm 14.4 11.90 15.58 -Date of Last Picture (Recall this field) -Photo Taken Yes Yes -Epithelialization None Present -Tunneling -Undermining/Tunneling No -Undermining/Tunneling Starts (O'clock 7 8 ) -Undermining/Tunneling Ends (O'clock) 11 11 -Maximum Distance (cm) 1.3 1.5 -Undermining/Tunneling Starts #2 (O' 1 clock) -Undermining/Tunneling Ends #2 (O' 4 clock) -Maximum Distance #2 (cm) 0.2 -Circular Undermining No -Exudate Amt Medium Medium Large -Exudate Type Serosanguineous Serosanguineous Serosanguineous -Wound Margin Thickened Thickened & Thickened Rolled Under -Granulation Amt None Present (0 Small (1-33%) Medium (34-66%) %) -Granulation Quality [place] -Slough/Fibrin Yes -Necrosis Amt Large (67-100%) Medium (34-66%) -Necrotic Tissue Type Adherent Slough Adherent Slough Adherent Slough -Structure Exposed N/A N/A -Texture (Margaret-wound Skin Appearance) Callus Scarring Callus -Moisture (Margaret-wound Skin Appearance) Maceration Maceration Assessed -Color (Margaret-wound Skin Appearance) Hemosiderin Hemosiderin Assessed Staining Staining -Temperature (Margaret-wound Skin No Abnormality No Abnormality No Abnormality Appearance) (Pt Warm) (Pt Warm) (Pt Warm) -Tenderness on Palpation (Margaret-wound No No No Skin Appearance) -Ulcer Cleansing Soap and Water Soap and Water Wound Cleanser -Foul Odor after Cleansing No No No -Anesthetic Used 5% Lidocaine 5% Lidocaine 5% Lidocaine Gel Gel Gel Lower Limb Edema Present Left Calf (cm) Left Ankle (cm) 01/09/22 08:51 Wound Center Nurse 1 #1 left heel cluster -Combined with other wound No -Current Size (cm) - Length 4.2 -Current Size (cm) - Width 3.9 -Current Size (cm) - Depth 0.3 -Total Square Cm 16.38 -Date of Last Picture (Recall this 01/09/22 field) -Photo Taken Yes -Epithelialization None Present -Tunneling No -Undermining/Tunneling No -Undermining/Tunneling Starts (O'clock ) -Undermining/Tunneling Ends (O'clock) -Maximum Distance (cm) -Undermining/Tunneling Starts #2 (O' clock) -Undermining/Tunneling Ends #2 (O' clock) -Maximum Distance #2 (cm) -Circular Undermining No -Exudate Amt Large -Exudate Type Serosanguineous -Wound Margin Thickened -Granulation Amt Small (1-33%) -Granulation Quality Red -Slough/Fibrin Yes -Necrosis Amt Large (67-100%) -Necrotic Tissue Type Adherent Slough -Structure Exposed -Texture (Margaret-wound Skin Appearance) Assessed, Scarring -Moisture (Margaret-wound Skin Appearance) Assessed, Maceration,Dry/ Scaly -Color (Margaret-wound Skin Appearance) Assessed,Palor -Temperature (Margaret-wound Skin No Abnormality Appearance) (Pt Warm) -Tenderness on Palpation (Margaret-wound Yes Skin Appearance) -Ulcer Cleansing Soap and Water -Foul Odor after Cleansing No -Anesthetic Used 4% Lidocaine Solution Lower Limb Edema Present Yes Left Calf (cm) 43 Left Ankle (cm) 22.5 WC - Nurse 2 - General Ulcer CM Notes Start: 12/17/21 10:53 Freq: Status: Active Protocol: Activity Type Activity Date Activity User E-sign Co-sign Detail Recorded Client Recorded Date Recorded By Document 12/19/21 10:49 [id number] 12/19/21 10:52 Document 12/26/21 11:09 [id number] 12/26/21 11:18 Document 01/02/22 11:30 [id number] 01/02/22 15:40 Document 01/09/22 09:08 [id number] 01/09/22 09:21 12/19/21 12/26/21 01/02/22 10:49 11:09 11:30 Wound Center Nurse 2 #1 left heel cluster -Time 10:51 11:10 15:39 -Correct Patient Yes Yes Yes -Correct Side, Site, Position Yes Yes Yes -Correct Procedure Yes Yes Yes -Procedure Performed Yes Yes Yes -Type of Procedure Debridement Debridement Debridement -Clinical Debridement Subcutaneous Subcutaneous Subcutaneous -Tissue Removed Subcutaneous Subcutaneous Subcutaneous -Post Debridement (cm) - Length 4.0 3.6 3.8 -Post Debridement (cm) - Width 3.7 4 4.2 -Post Debridement (cm) - Depth 0.9 0.3 0.7 -Total Square (Post) (cm) 14.80 14.4 15.96 -Area of Debridement (cm) - Length 4.0 3.6 3.8 -Area of Debridement (cm) - Width 3.7 4 4.2 -Total Square (Area) (cm) 14.80 14.4 15.96 -Tunneling No No No -Undermining/Tunneling No No No -Circular Undermining No No No -Wound/Ulcer Outcome Not Healed Not Healed Not Healed -Ulcer Cleansing Rinsed/ Rinsed/ Rinsed/ Irrigated with Irrigated with Irrigated with Saline Saline Saline -Foul Odor after Cleansing No No No -Bioengineered Tissue No No No -Type of Bioengineered Tissue -Expiration Date -Product Lot Number -Percent Used -Lot number of Saline Used -Bleeding Controlled with Pressure Pressure Pressure -Treatment Response Procedure Procedure Procedure Tolerated Well Tolerated Well Tolerated Well -Offloading Yes Yes Yes -Type of Offloading Camwalker Camwalker Camwalker -Assistive Device(s) -Debridement - Subq, 1st 20sq cm Yes Yes Yes -Apply Skin Sub - 1st 25 sq cm - Feet -Theraskin (per sq cm) Pain Scale: 0-10 Numeric Is Patient Pain Free? Yes Yes Yes 01/09/22 09:08 Wound Center Nurse 2 #1 left heel cluster -Time 09:09 -Correct Patient Yes -Correct Side, Site, Position Yes -Correct Procedure Yes -Procedure Performed Yes -Type of Procedure Debridement -Clinical Debridement Subcutaneous -Tissue Removed Subcutaneous -Post Debridement (cm) - Length 4.2 -Post Debridement (cm) - Width 4 -Post Debridement (cm) - Depth 0.3 -Total Square (Post) (cm) 16.8 -Area of Debridement (cm) - Length 4.2 -Area of Debridement (cm) - Width 4 -Total Square (Area) (cm) 16.8 -Tunneling No -Undermining/Tunneling No -Circular Undermining No -Wound/Ulcer Outcome Not Healed -Ulcer Cleansing Rinsed/ Irrigated with Saline -Foul Odor after Cleansing No -Bioengineered Tissue Yes -Type of Bioengineered Tissue Theraskin -Expiration Date 02/17/25 -Product Lot Number [id number] -Percent Used 100 -Lot number of Saline Used [id number] -Bleeding Controlled with Pressure -Treatment Response Procedure Tolerated Well -Offloading Yes -Type of Offloading Camwalker -Assistive Device(s) Wheelchair -Debridement - Subq, 1st 20sq cm No -Apply Skin Sub - 1st 25 sq cm - Feet 1 -Theraskin (per sq cm) 26 Pain Scale: 0-10 Numeric Is Patient Pain Free? Yes - Nurse 3 - General Ulcer D/C NN Start: 12/17/21 10:53 Freq: Status: Active Protocol: Activity Type Activity Date Activity User E-sign Co-sign Detail Recorded Client Recorded Date Recorded By Document 12/17/21 11:31 AK [id number] 12/17/21 11:34 AK Edit Result 12/17/21 11:31 AK (1) [id number] 12/18/21 06:44 PL Document 12/18/21 10:40 DL [id number] 12/18/21 10:43 DL Edit Result 12/18/21 10:40 DL (2) [id number] 12/19/21 06:42 PL Document 12/19/21 11:20 RB [id number] 12/19/21 11:21 RB Document 12/20/21 11:07 JF [id number] 12/20/21 11:08 JF Document 12/21/21 08:46 ML [id number] 12/21/21 08:48 ML Document 12/26/21 11:22 BMF [id number] 12/26/21 11:23 BMF Document 12/28/21 10:22 MT [id number] 12/28/21 10:50 MT Document 01/01/22 10:54 ML [id number] 01/01/22 11:00 ML Edit Result 01/01/22 10:54 ML (3) [id number] 01/01/22 11:03 ML Document 01/02/22 11:15 BMF [id number] 01/02/22 11:16 BMF Document 01/03/22 12:25 ML [id number] 01/03/22 12:32 ML Document 01/08/22 13:16 ML [id number] 01/08/22 13:16 ML Document 01/08/22 13:17 ML [id number] 01/08/22 13:17 ML Document 01/09/22 09:37 RB [id number] 01/09/22 09:39 RB (1) Left - Multi-Layered Wrap Application => Multi-Layer Comp - => Left ($) (2) Left - Multi-Layered Wrap Application => Multi-Layer Comp - => Left ($) (3) #1 left heel cluster - Ulcer Cleansing => Soap and Water - Foul Odor after Cleansing => No - Primary Dressing Applied => Aquacel AG 4x4 - Primary Dressing Covered/Secured with => Dry Gauze & Roll => Gauze,Secured with => Tape - Aquacel AG 4x4 => 1 12/17/21 12/18/21 12/19/21 11:31 10:40 11:20 Vital Signs Temperature (97.8 F-99.1 F) 96.3 F L Temperature Source Temporal Pulse Rate (60-100) 66 Pulse Location Monitor Oxygen Delivery Method Blood Pressure (90/60-120/80) 149/62 H Blood Pressure Mean (mm Hg) 91 Source Monitor Pain Scale: 0-10 Numeric Is Patient Pain Free? Yes Yes Yes Wound Care Nurse 3 #1 left heel cluster -Ulcer Cleansing Soap and Water Soap and Water Rinsed/ Irrigated with Saline -Foul Odor after Cleansing No No -Negative Pressure Wound Therapy N/A -Primary Dressing Applied Aquacel AG 4x4, Aquacel AG 4x4 Aquacel AG 2x2 Optilok 6.5x10 -Other Dressing 2 ABD abd nurses hat and 4 x4 gauze, kerlix . kevin -Primary Dressing Covered/Secured with Dry Gauze & Dry Gauze,Dry Roll Gauze, Gauze & Roll Secured with Gauze,Secured Tape with Tape -Other Covering Nurse Hat -Aquacel AG 4x4 1 1 -Aquacel AG 2x2 1 -Optilok 6.5x10 1 Left -Lotion applied to leg before No compression wrap -Multi-Layered Wrap Application Multi-Layer Multi-Layer Comp - Left ($) Comp - Left ($) -Compression Wrap Kevin Wrap -Stockings No -Other Treatment Response Procedure Procedure Tolerated Well Tolerated Well WC - Visit Discharge Discharge Condition Stable Stable Stable Ambulatory Status Wheelchair Wheelchair Wheelchair Transportation Private Auto Private Auto Private Auto Medication Reconcilliation completed & Yes No provided to patient/care provider Clinical Summary of Care Provided Yes Yes Notes: Dressing applied per Jakob Mason LPN. Nurse Visit today after HBO . 12/20/21 12/21/21 12/26/21 11:07 08:46 11:22 Vital Signs Temperature (97.8 F-99.1 F) Temperature Source Pulse Rate (60-100) Pulse Location Oxygen Delivery Method Blood Pressure (90/60-120/80) Blood Pressure Mean (mm Hg) Source Pain Scale: 0-10 Numeric Is Patient Pain Free? Yes Yes Yes Wound Care Nurse 3 #1 left heel cluster -Ulcer Cleansing Soap and Water Soap and Water Rinsed/ Irrigated with Saline -Foul Odor after Cleansing No No No -Negative Pressure Wound Therapy -Primary Dressing Applied Aquacel AG 4x4 Aquacel AG 2x2, Optilok 6.5x10 -Other Dressing non-charge ABD,KEVIN heel hat aquacel-ag used today -Primary Dressing Covered/Secured with Dry Gauze & Dry Gauze & Dry Gauze & Roll Gauze, Roll Gauze, Roll Gauze, Secured with Secured with Secured with Tape Tape Tape,Other -Other Covering ABD pad abd -Aquacel AG 4x4 1 -Aquacel AG 2x2 1 -Optilok 6.5x10 1 Left -Lotion applied to leg before compression wrap -Multi-Layered Wrap Application -Compression Wrap Kevin Wrap Kevin Wrap -Stockings -Other Treatment Response Procedure Tolerated Well WC - Visit Discharge Discharge Condition Stable Stable Ambulatory Status Wheelchair Wheelchair Transportation Wanderable Auto Medication Reconcilliation completed & Yes provided to patient/care provider Clinical Summary of Care Provided Yes Notes: 12/28/21 01/01/22 01/02/22 10:22 10:54 11:15 Vital Signs Temperature (97.8 F-99.1 F) 98 F Temperature Source Temporal Pulse Rate (60-100) 62 Pulse Location Monitor Oxygen Delivery Method Room Air Blood Pressure (90/60-120/80) 116/58 L Blood Pressure Mean (mm Hg) 77 Source Pain Scale: 0-10 Numeric Is Patient Pain Free? Yes Yes Yes Wound Care Nurse 3 #1 left heel cluster -Ulcer Cleansing Soap and Water Soap and Water Rinsed/ Irrigated with Saline -Foul Odor after Cleansing No No -Negative Pressure Wound Therapy -Primary Dressing Applied Aquacel AG 4x4, Aquacel AG 4x4 Other Optilok 6.5x10 -Other Dressing AQUACEL AG -Primary Dressing Covered/Secured with Dry Gauze & Dry Gauze & Dry Gauze & Roll Gauze, Roll Gauze, Roll Gauze, Secured with Secured with Secured with Tape Tape Tape -Other Covering KERRAMAX; ABD, HEEL HAT -Aquacel AG 4x4 1 1 -Aquacel AG 2x2 -Optilok 6.5x10 1 Left -Lotion applied to leg before compression wrap -Multi-Layered Wrap Application -Compression Wrap Kevin Wrap Kevin Wrap -Stockings -Other Treatment Response Procedure Tolerated Well WC - Visit Discharge Discharge Condition Stable Stable Ambulatory Status Wheelchair Wheelchair Transportation Wanderable Auto Medication Reconcilliation completed & No provided to patient/care provider Clinical Summary of Care Provided Yes Notes: nurse visit 01/03/22 01/08/22 01/08/22 12:25 13:16 13:17 Vital Signs Temperature (97.8 F-99.1 F) Temperature Source Pulse Rate (60-100) Pulse Location Oxygen Delivery Method Blood Pressure (90/60-120/80) Blood Pressure Mean (mm Hg) Source Pain Scale: 0-10 Numeric Is Patient Pain Free? Yes Yes Yes Wound Care Nurse 3 #1 left heel cluster -Ulcer Cleansing Soap and Water Soap and Water Soap and Water -Foul Odor after Cleansing No No No -Negative Pressure Wound Therapy -Primary Dressing Applied Aquacel AG 4x4 Aquacel AG 4x4 Aquacel AG 4x4 -Other Dressing -Primary Dressing Covered/Secured with Dry Gauze & Dry Gauze & Dry Gauze & Roll Gauze, Roll Gauze, Roll Gauze, Secured with Secured with Secured with Tape Tape Tape -Other Covering KEVIN -Aquacel AG 4x4 0 0 0 -Aquacel AG 2x2 -Optilok 6.5x10 Left -Lotion applied to leg before compression wrap -Multi-Layered Wrap Application -Compression Wrap -Stockings -Other Treatment Response WC - Visit Discharge Discharge Condition Ambulatory Status Transportation Medication Reconcilliation completed & provided to patient/care provider Clinical Summary of Care Provided Notes: 01/09/22 09:37 Vital Signs Temperature (97.8 F-99.1 F) Temperature Source Pulse Rate (60-100) Pulse Location Oxygen Delivery Method Blood Pressure (90/60-120/80) Blood Pressure Mean (mm Hg) Source Pain Scale: 0-10 Numeric Is Patient Pain Free? Yes Wound Care Nurse 3 #1 left heel cluster -Ulcer Cleansing -Foul Odor after Cleansing -Negative Pressure Wound Therapy -Primary Dressing Applied Optilok 6.5x10 -Other Dressing superabsorber, kerlix, kevin -Primary Dressing Covered/Secured with Dry Gauze & Roll Gauze, Secured with Tape -Other Covering -Aquacel AG 4x4 -Aquacel AG 2x2 -Optilok 6.5x10 1 Left -Lotion applied to leg before compression wrap -Multi-Layered Wrap Application -Compression Wrap -Stockings -Other kevin Treatment Response Procedure Tolerated Well WC - Visit Discharge Discharge Condition Stable Ambulatory Status Wheelchair Transportation Private Auto Medication Reconcilliation completed & No provided to patient/care provider Clinical Summary of Care Provided Yes Notes: Assessment/Plan Assessment/Plan (1) Foot osteomyelitis: CODE(S): M86.9 - Osteomyelitis, unspecified QUALIFIERS: Osteomyelitis type: other acute Laterality: left Qualified Code(s): M86.172 - Other acute osteomyelitis, left ankle and foot (2) Chronic ulcer of left foot with necrosis of bone: CODE(S): L97.524 - Non-pressure chronic ulcer of other part of left foot with necrosis of bone (3) Type 2 diabetes mellitus with diabetic polyneuropathy: CODE(S): E11.42 - Type 2 diabetes mellitus with diabetic polyneuropathy QUALIFIERS: Diabetes mellitus termite helper insulin use: with termite helper use Qualified Code(s): E11.42 - Type 2 diabetes mellitus with diabetic polyneuropathy; Z79.4 - extermination supervisor (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) use of insulin (4) Diabetic foot ulcer: CODE(S): E11.621 - Type 2 diabetes mellitus with foot ulcer; L97.509 - Non-pressure chronic ulcer of other part of unspecified foot with unspecified severity QUALIFIERS: Diabetic foot ulcer location: heel Diabetes mellitus type: type 2 Laterality: left Non-pressure ulcer stage: with fat layer exposed Qualified Code(s): E11.621 - Type 2 diabetes mellitus with foot ulcer; L97.422 - Non-pressure chronic ulcer of left heel and midfoot with fat layer exposed (5) Bilateral edema of lower extremity: CODE(S): R60.0 - Localized edema (6) Difficulty in walking: CODE(S): R26.2 - Difficulty in walking, not elsewhere classified (7) Left foot pain: CODE(S): M79.672 - Pain in left foot (8) Deep vein thrombosis (DVT) of left lower extremity: CODE(S): I82.402 - Acute embolism and thrombosis of unspecified deep veins of left lower extremity PLAN: Plan Patient seen and examined. I reviewed and discussed his case. Debridement was performed as noted in the clinical nursing panel. Dressing recommendation: A secondary dressing with a super absorption component was applied after advanced wound product. Nursing staff will check the need to replace secondary dressings when he comes daily for hyperbaric oxygen therapy. Advance wound options: He has a status change diagnosis of osteomyelitis. I recommend hyperbaric oxygen therapy if he is medically cleared to undergo such treatment. He reports he is available to come in 5 days a week for couple hours each day and he has anticipated reliable transportation. his EF is 65%. 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 I recommend continuation due to the improvement in the quality of the base of his ulcer. I also recommend advanced wound healing product such as TheraSkin to reduce healing time, prevent limb loss, and promote chronic ulcer stimulation. He was approved for this and verbal consent was obtained today. This was applied according to standard protocol and was secured with medical glue, wound veil, Steri-Strips. He was advised keep this clean and intact until next week. He tolerated this application well. Offloading: To maintain a strict nonweightbearing status to the ulcer to the kristian t. To use assistive walking device as well. He has a cam walker. I recommend considering application of total contact casting once he is done being treated for his deep venous thrombosis with estimated remaining time from about 1 month. Infection management: This culture results were reviewed with MRSA, Enterobacter, Enterococcus, and corynebacteria. He has osteomyelitis which was confirmed with bone biopsy sent to microbiology and pathology. It appears an extended course of linezolid is appropriate per infectious disease recommendation orally. This was discussed previously with ID specialist and the patient. Lab trends will be followed weekly. Patient relates he had follow-up appointment with his primary care provider, Priyanka Brown, and relates that she did not change any medication and stated he was doing okay. PCP is leaving the diabetes management up to his business economist, Dr. Mykel Barraza. He was able to follow-up and recommendations were updated. An updated hemoglobin A1c order was provided because we are unable to obtain this in a timely manner from the primary care physician's office. this was 8.6%. To follow up with pain management. It is noted he is already on gabapentin, Percocet, and Tylenol. I do not recommend additional narcotic pain medication. This appears to be controlled at this time. Edema management: Medical management per primary care. To reduce salt in diet. Total contact cast will also aide in edema reduction if this considered upon continued foot stability and resolution of infection status. I only recommend reapplication after he has completed his acute deep venous thrombosis treatment. Arterial studies were reviewed. Showing likely adequate perfusion for healing. Right LAI is 0.99 and left 1.18. Right toe brachial index 0.76 and left 0.71. Referral to Dr. Campos for potential venous and arterial intervention was provided today. He went for consultationon 04-11-21. Will recheck duplex to make sure normal posterior tibial flow into the area of the wound. normal prior LAI noted. Host factors: His multiple comorbidities are noted including diabetes and smoking history. Also recommend improvement in nutritional status which involves taking in adequate protein and also focusing on eating 5-10 whole foods daily. Gait abnormality/walking difficulty: I recommend PT and OT intervention with his home health agency. A referral was provided previously. He is at risk for falling. He is fragile and has demonstrated progressive deterioration. All questions answered. He understands below-knee amputation is an option as well if he cannot keep pressure off the site, if pain becomes intolerable, and if he no longer is able to proceed with a comprehensive wound healing plan. He defers at this time. This was discussed at length today. The benefits and indications of a below-knee amputation were reviewed. He would like to consider a referral to a doctor in the same healthcare system he attends in the [facility]. Patient to follow up in 1 week or call sooner if status worsening or if questions. This note was generated with [employer] dictation software. It may contain incorrect words, spelling, and punctuation that were not noted in checking the note before signing.
[2022-01-09 11:15] VITALS: BP 121/49; BP 137/65; PULSE 54; PULSE 67; RESP 16; RESP 17; TEMP 35.7
--- NOTE | 2022-01-09 11:50 | HBO.PN.PCM_ITS ---
History of Present Illness Date of Service: 01/09/22 Chief Complaint: Osteomyelitis and chronic delayed healing ulcer, left foot History of Wound: The patient presented for a chronic, non-healing wound to left heel with osteomyelitis. A limb and life-threatening infection required emergent surgical intervention on 05-29-2021. 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 He denies fever, chill, nausea, vomiting, pain, odor, redness today. He is keeping weight off of his foot. He continues to take antibiotics as advised and is also undergoing hyperbaric oxygen therapy treatments. He continues on blood thinner due to his deep venous thrombosis and his leg swelling is starting to reduce. Progress of Wound: stable, improving quality and reduced depth Subjective Subjective Patient tolerating HBO treatments well Objective Data Objective Data Patient receiving #17 of 30 treatments vital signs stable on admission and discharge Vital Signs: Vital Signs Temp Pulse Resp BP O2 Del Method 96.3 F L 67 17 121/49 H Room Air 01/09/22 11:15 01/09/22 11:15 01/09/22 11:15 01/09/22 11:15 01/09/22 08:51 Oxygen Delivery Method Room Air Body Mass Index (BMI) 33.7 Lab / Micro Data Labs: Laboratory Results - last 24 hr 01/08/22 12:22: POC Glucose 196 H 01/09/22 09:26: POC Glucose 213 H Exam Physical Exam Const alert, oriented x3 and no apparent distress General Appearance: cooperative HEENT normocephalic Eyes Eyes Narrative: Bilateral ear tubes in place. Resp normal respiratory effort and no use of accessory muscles Auscultation: wheezes scattered wheezes and throughout Cardio regular rate and regular rhythm Psych affect normal Nursing Assessment and Debridement Post-Debridement Measurements and Additional Note: Post-Debridement Measurements/Treatment WC - Nurse 1 - General Ulcer Assessment Start: 12/17/21 10:53 Freq: Status: Active Protocol: EVELYN Activity Type Activity Date Activity User E-sign Co-sign Detail Recorded Client Recorded Date Recorded By Document 01/09/22 08:51 [facility] [id number] 01/09/22 08:59 [facility] 01/09/22 08:51 - Today's Visit Information Type of service Follow-up Visit (Physician/HARNESS [employer] INSPECTOR ) Arrival Mode Wheelchair Transfer Assistance Other Transfer Assist (Other) stand by Patient Identification Verified (Name & Yes ) Patient Requires Transmission-Based No Precautions Height and Weight Body Mass Index (BMI) 33.7 BMI Classification Obese Vital Signs Temperature (97.8 F-99.1 F) 96.3 F L Temperature Source Temporal Pulse Rate (60-100) 67 Pulse Location Monitor Respiratory Rate (12-18) 16 Respiratory rate source Observation Oxygen Delivery Method Room Air Blood Pressure (90/60-120/80) 121/49 H Blood Pressure Mean (mm Hg) 73 Source Monitor Position Sitting Blood Pressure Location Left Arm History Since Last Visit- (Skip if this is Patient's initial visit) Have you changed medications since your No last visit? Any new allergies or adverse reactions No Had a fall/change in ADL's that may No increase risk of falls Signs or symptoms of abuse and/or No neglect since last visit Have you been in the hospital since your No last visit? Has dressing in place as prescribed Yes Has compression in place as prescribed Yes Has offloadiing in place as prescribed Yes Experienced any changes in pain level or No management Left Footwear Removable Cast Walker/Walking Boot Right Footwear Regular Shoe Pain Scale: 0-10 Numeric Is Patient Pain Free? Yes WC - Nurse 1 - General Ulcer Measurement Start: 12/17/21 10:53 Freq: Status: Active Protocol: Activity Type Activity Date Activity User E-sign Co-sign Detail Recorded Client Recorded Date Recorded By Document 01/09/22 08:51 [facility] [id number] 01/09/22 08:59 [facility] 01/09/22 08:51 Wound Center Nurse 1 #1 left heel cluster -Combined with other wound No -Current Size (cm) - Length 4.2 -Current Size (cm) - Width 3.9 -Current Size (cm) - Depth 0.3 -Total Square Cm 16.38 -Date of Last Picture (Recall this 01/09/22 field) -Photo Taken Yes -Epithelialization None Present -Tunneling No -Undermining/Tunneling No -Circular Undermining No -Exudate Amt Large -Exudate Type Serosanguineous -Wound Margin Thickened -Granulation Amt Small (1-33%) -Granulation Quality Red -Slough/Fibrin Yes -Necrosis Amt Large (67-100%) -Necrotic Tissue Type Adherent Slough -Texture (Margaret-wound Skin Appearance) Assessed, Scarring -Moisture (Margaret-wound Skin Appearance) Assessed, Maceration,Dry/ Scaly -Color (Margaret-wound Skin Appearance) Assessed,Palor -Temperature (Margaret-wound Skin No Abnormality Appearance) (Pt Warm) -Tenderness on Palpation (Margaret-wound Yes Skin Appearance) -Ulcer Cleansing Soap and Water -Foul Odor after Cleansing No -Anesthetic Used 4% Lidocaine Solution Lower Limb Edema Present Yes Left Calf (cm) 43 Left Ankle (cm) 22.5 - Nurse 2 - General Ulcer CM Notes Start: 12/17/21 10:53 Freq: Status: Active Protocol: Activity Type Activity Date Activity User E-sign Co-sign Detail Recorded Client Recorded Date Recorded By Document 01/09/22 09:08 DANIEL [id number] 01/09/22 09:21 DANIEL 01/09/22 09:08 Wound Center Nurse 2 #1 left heel cluster -Time 09:09 -Correct Patient Yes -Correct Side, Site, Position Yes -Correct Procedure Yes -Procedure Performed Yes -Type of Procedure Debridement -Clinical Debridement Subcutaneous -Tissue Removed Subcutaneous -Post Debridement (cm) - Length 4.2 -Post Debridement (cm) - Width 4 -Post Debridement (cm) - Depth 0.3 -Total Square (Post) (cm) 16.8 -Area of Debridement (cm) - Length 4.2 -Area of Debridement (cm) - Width 4 -Total Square (Area) (cm) 16.8 -Tunneling No -Undermining/Tunneling No -Circular Undermining No -Wound/Ulcer Outcome Not Healed -Ulcer Cleansing Rinsed/ Irrigated with Saline -Foul Odor after Cleansing No -Bioengineered Tissue Yes -Type of Bioengineered Tissue Theraskin -Expiration Date 02/17/25 -Product Lot Number [id number] -Percent Used 100 -Lot number of Saline Used [id number] -Bleeding Controlled with Pressure -Treatment Response Procedure Tolerated Well -Offloading Yes -Type of Offloading Camwalker -Assistive Device(s) Wheelchair -Debridement - Subq, 1st 20sq cm No -Apply Skin Sub - 1st 25 sq cm - Feet 1 -Theraskin (per sq cm) 26 Pain Scale: 0-10 Numeric Is Patient Pain Free? Yes - Nurse 3 - General Ulcer D/C NN Start: 12/17/21 10:53 Freq: Status: Active Protocol: Activity Type Activity Date Activity User E-sign Co-sign Detail Recorded Client Recorded Date Recorded By Document 01/08/22 13:16 ML [id number] 01/08/22 13:16 ML Document 01/08/22 13:17 ML [id number] 01/08/22 13:17 ML Document 01/09/22 09:37 RB [id number] 01/09/22 09:39 RB 01/08/22 01/08/22 01/09/22 13:16 13:17 09:37 Pain Scale: 0-10 Numeric Is Patient Pain Free? Yes Yes Yes Wound Care Nurse 3 #1 left heel cluster -Ulcer Cleansing Soap and Water Soap and Water -Foul Odor after Cleansing No No -Primary Dressing Applied Aquacel AG 4x4 Aquacel AG 4x4 Optilok 6.5x10 -Other Dressing superabsorber, kerlix, aayush -Primary Dressing Covered/Secured with Dry Gauze & Dry Gauze & Dry Gauze & Roll Gauze, Roll Gauze, Roll Gauze, Secured with Secured with Secured with Tape Tape Tape -Aquacel AG 4x4 0 0 -Optilok 6.5x10 1 Left -Other aayush Treatment Response Procedure Tolerated Well WC - Visit Discharge Discharge Condition Stable Ambulatory Status Wheelchair Transportation Private Auto Medication Reconcilliation completed & No provided to patient/care provider Clinical Summary of Care Provided Yes Assessment/Plan Assessment/Plan (1) Osteomyelitis: CODE(S): M86.9 - Osteomyelitis, unspecified (2) Foot osteomyelitis: CODE(S): M86.9 - Osteomyelitis, unspecified QUALIFIERS: Osteomyelitis type: other acute Laterality: left Qualified Code(s): M86.172 - Other acute osteomyelitis, left ankle and foot (3) Chronic ulcer of left foot with necrosis of bone: CODE(S): L97.524 - Non-pressure chronic ulcer of other part of left foot with necrosis of bone (4) Type 2 diabetes mellitus with diabetic polyneuropathy: CODE(S): E11.42 - Type 2 diabetes mellitus with diabetic polyneuropathy QUALIFIERS: Diabetes mellitus mcc insulin use: with mcc use Qualified Code(s): E11.42 - Type 2 diabetes mellitus with diabetic polyneuropathy; Z79.4 - rodent exterminator (current) use of insulin (5) Diabetic foot ulcer: CODE(S): E11.621 - Type 2 diabetes mellitus with foot ulcer; L97.509 - Non-pressure chronic ulcer of other part of unspecified foot with unspecified severity QUALIFIERS: Diabetic foot ulcer location: heel Diabetes mellitus type: type 2 Laterality: left Non-pressure ulcer stage: with fat layer exposed Qualified Code(s): E11.621 - Type 2 diabetes mellitus with foot ulcer; L97.422 - Non-pressure chronic ulcer of left heel and midfoot with fat layer exposed (6) Bilateral edema of lower extremity: CODE(S): R60.0 - Localized edema PLAN: Plan The patient tolerated hyperbaric oxygen therapy well which will be continued as per his medical plan. We will reapply for 20 more treatments on his plan for hyperbaric chamber treatments
[2022-01-09 12:15] LABS: Bedside Glucose 169 mg/dL (74-106)
[2022-01-10 10:20] LABS: Bedside Glucose 150 mg/dL (74-106)
--- NOTE | 2022-01-10 11:23 | HBO.PN.PCM_ITS ---
History of Present Illness Date of Service: 01/07/22 Chief Complaint: Osteomyelitis and chronic delayed healing ulcer, left foot History of Wound: The patient presented for a chronic, non-healing wound to left heel with osteomyelitis. A limb and life-threatening infection required emergent surgical intervention on 05-29-2021. 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 He denies fever, chill, nausea, vomiting, pain, odor, redness today. He is keeping weight off of his foot. He continues to take antibiotics as advised and is also undergoing hyperbaric oxygen therapy treatments. He continues on blood thinner due to his deep venous thrombosis and his leg swelling is starting to reduce. Progress of Wound: Today is the 18th treatment of hyperbaric oxygen therapy.? The patient is scheduled for 30 treatments total. Objective Data Objective Data Vital Signs: Vital Signs Temp Pulse Resp BP O2 Del Method 96.3 F L 67 17 121/49 H Room Air 01/09/22 11:15 01/09/22 11:15 01/09/22 11:15 01/09/22 11:15 01/09/22 08:51 Oxygen Delivery Method Room Air Body Mass Index (BMI) 33.7 Lab / Micro Data Labs: Laboratory Results - last 24 hr 01/09/22 11:56: POC Glucose 169 H 01/10/22 10:01: POC Glucose 150 H Exam Physical Exam Const alert, oriented x3 and no apparent distress General Appearance: cooperative HEENT normocephalic HEENT Narrative: Bilateral ear tubes in place. Nose: external nose normal Resp normal respiratory effort, no use of accessory muscles and clear to auscultation bilaterally Auscultation: wheezes scattered wheezes and throughout Cardio regular rate and regular rhythm Psych affect normal Nursing Assessment and Debridement Post-Debridement Measurements and Additional Note: Post-Debridement Measurements/Treatment WC - Nurse 1 - General Ulcer Assessment Start: 12/17/21 10:53 Freq: Status: Active Protocol: [email or web address] Activity Type Activity Date Activity User E-sign Co-sign Detail Recorded Client Recorded Date Recorded By Document 01/09/22 08:51 [facility] [id number] 01/09/22 08:59 BM 01/09/22 08:51 - Today's Visit Information Type of service Follow-up Visit (Physician/THREE KNIFE TRIMMER ) Arrival Mode Wheelchair Transfer Assistance Other Transfer Assist (Other) stand by Patient Identification Verified (Name & Yes ) Patient Requires Transmission-Based No Precautions Height and Weight Body Mass Index (BMI) 33.7 BMI Classification Obese Vital Signs Temperature (97.8 F-99.1 F) 96.3 F L Temperature Source Temporal Pulse Rate (60-100) 67 Pulse Location Monitor Respiratory Rate (12-18) 16 Respiratory rate source Observation Oxygen Delivery Method Room Air Blood Pressure (90/60-120/80) 121/49 H Blood Pressure Mean (mm Hg) 73 Source Monitor Position Sitting Blood Pressure Location Left Arm History Since Last Visit- (Skip if this is Patient's initial visit) Have you changed medications since your No last visit? Any new allergies or adverse reactions No Had a fall/change in ADL's that may No increase risk of falls Signs or symptoms of abuse and/or No neglect since last visit Have you been in the hospital since your No last visit? Has dressing in place as prescribed Yes Has compression in place as prescribed Yes Has offloadiing in place as prescribed Yes Experienced any changes in pain level or No management Left Footwear Removable Cast Walker/Walking Boot Right Footwear Regular Shoe Pain Scale: 0-10 Numeric Is Patient Pain Free? Yes WC - Nurse 1 - General Ulcer Measurement Start: 12/17/21 10:53 Freq: Status: Active Protocol: Activity Type Activity Date Activity User E-sign Co-sign Detail Recorded Client Recorded Date Recorded By Document 01/09/22 08:51 [facility] [id number] 01/09/22 08:59 [facility] 01/09/22 08:51 Wound Center Nurse 1 #1 left heel cluster -Combined with other wound No -Current Size (cm) - Length 4.2 -Current Size (cm) - Width 3.9 -Current Size (cm) - Depth 0.3 -Total Square Cm 16.38 -Date of Last Picture (Recall this 01/09/22 field) -Photo Taken Yes -Epithelialization None Present -Tunneling No -Undermining/Tunneling No -Circular Undermining No -Exudate Amt Large -Exudate Type Serosanguineous -Wound Margin Thickened -Granulation Amt Small (1-33%) -Granulation Quality Red -Slough/Fibrin Yes -Necrosis Amt Large (67-100%) -Necrotic Tissue Type Adherent Slough -Texture (Margaret-wound Skin Appearance) Assessed, Scarring -Moisture (Margaret-wound Skin Appearance) Assessed, Maceration,Dry/ Scaly -Color (Margaret-wound Skin Appearance) Assessed,Palor -Temperature (Margaret-wound Skin No Abnormality Appearance) (Pt Warm) -Tenderness on Palpation (Margaret-wound Yes Skin Appearance) -Ulcer Cleansing Soap and Water -Foul Odor after Cleansing No -Anesthetic Used 4% Lidocaine Solution Lower Limb Edema Present Yes Left Calf (cm) 43 Left Ankle (cm) 22.5 - Nurse 2 - General Ulcer CM Notes Start: 12/17/21 10:53 Freq: Status: Active Protocol: Activity Type Activity Date Activity User E-sign Co-sign Detail Recorded Client Recorded Date Recorded By Document 01/09/22 09:08 DANIEL [id number] 01/09/22 09:21 DANIEL 01/09/22 09:08 Wound Center Nurse 2 #1 left heel cluster -Time 09:09 -Correct Patient Yes -Correct Side, Site, Position Yes -Correct Procedure Yes -Procedure Performed Yes -Type of Procedure Debridement -Clinical Debridement Subcutaneous -Tissue Removed Subcutaneous -Post Debridement (cm) - Length 4.2 -Post Debridement (cm) - Width 4 -Post Debridement (cm) - Depth 0.3 -Total Square (Post) (cm) 16.8 -Area of Debridement (cm) - Length 4.2 -Area of Debridement (cm) - Width 4 -Total Square (Area) (cm) 16.8 -Tunneling No -Undermining/Tunneling No -Circular Undermining No -Wound/Ulcer Outcome Not Healed -Ulcer Cleansing Rinsed/ Irrigated with Saline -Foul Odor after Cleansing No -Bioengineered Tissue Yes -Type of Bioengineered Tissue Theraskin -Expiration Date 02/17/25 -Product Lot Number [id number] -Percent Used 100 -Lot number of Saline Used [id number] -Bleeding Controlled with Pressure -Treatment Response Procedure Tolerated Well -Offloading Yes -Type of Offloading Camwalker -Assistive Device(s) Wheelchair -Debridement - Subq, 1st 20sq cm No -Apply Skin Sub - 1st 25 sq cm - Feet 1 -Theraskin (per sq cm) 26 Pain Scale: 0-10 Numeric Is Patient Pain Free? Yes - Nurse 3 - General Ulcer D/C NN Start: 12/17/21 10:53 Freq: Status: Active Protocol: Activity Type Activity Date Activity User E-sign Co-sign Detail Recorded Client Recorded Date Recorded By Document 01/08/22 13:16 ML [id number] 01/08/22 13:16 ML Document 01/08/22 13:17 ML [id number] 01/08/22 13:17 ML Document 01/09/22 09:37 RB [id number] 01/09/22 09:39 RB 01/08/22 01/08/22 01/09/22 13:16 13:17 09:37 Pain Scale: 0-10 Numeric Is Patient Pain Free? Yes Yes Yes Wound Care Nurse 3 #1 left heel cluster -Ulcer Cleansing Soap and Water Soap and Water -Foul Odor after Cleansing No No -Primary Dressing Applied Aquacel AG 4x4 Aquacel AG 4x4 Optilok 6.5x10 -Other Dressing superabsorber, kerlix, aayush -Primary Dressing Covered/Secured with Dry Gauze & Dry Gauze & Dry Gauze & Roll Gauze, Roll Gauze, Roll Gauze, Secured with Secured with Secured with Tape Tape Tape -Aquacel AG 4x4 0 0 -Optilok 6.5x10 1 Left -Other aayush Treatment Response Procedure Tolerated Well WC - Visit Discharge Discharge Condition Stable Ambulatory Status Wheelchair Transportation Private Auto Medication Reconcilliation completed & No provided to patient/care provider Clinical Summary of Care Provided Yes Assessment/Plan Assessment/Plan (1) Osteomyelitis: CODE(S): M86.9 - Osteomyelitis, unspecified (2) Foot osteomyelitis: CODE(S): M86.9 - Osteomyelitis, unspecified QUALIFIERS: Laterality: left Osteomyelitis type: other acute Qualified Code(s): M86.172 - Other acute osteomyelitis, left ankle and foot (3) Chronic ulcer of left foot with necrosis of bone: CODE(S): L97.524 - Non-pressure chronic ulcer of other part of left foot with necrosis of bone (4) Type 2 diabetes mellitus with diabetic polyneuropathy: CODE(S): E11.42 - Type 2 diabetes mellitus with diabetic polyneuropathy QUALIFIERS: Diabetes mellitus watcher automat long goods insulin use: with watcher automat long goods use Qualified Code(s): E11.42 - Type 2 diabetes mellitus with diabetic polyneuropathy; Z79.4 - middle or intermediate school principal (current) use of insulin (5) Diabetic foot ulcer: CODE(S): E11.621 - Type 2 diabetes mellitus with foot ulcer; L97.509 - Non-pressure chronic ulcer of other part of unspecified foot with unspecified severity QUALIFIERS: Diabetes mellitus type: type 2 Diabetic foot ulcer location: heel Laterality: left Non-pressure ulcer stage: with fat layer exposed Qualified Code(s): E11.621 - Type 2 diabetes mellitus with foot ulcer; L97.422 - Non-pressure chronic ulcer of left heel and midfoot with fat layer exposed (6) Bilateral edema of lower extremity: CODE(S): R60.0 - Localized edema PLAN: Plan The patient tolerated hyperbaric oxygen therapy well which will be continued as per his medical plan.
[2022-01-10 12:35] LABS: Bedside Glucose 180 mg/dL (74-106)
[2022-01-10 12:50] VITALS: BP 128/60; BP 142/67; PULSE 61; PULSE 71; TEMP 35.7; BMI 33.7
[2022-01-11 07:18] VITALS: BP 127/57; BP 135/58; PULSE 62; PULSE 67; RESP 18; RESP 20; TEMP 36.4; TEMP 36.6
[2022-01-11 11:01] LABS: Bedside Glucose 201 mg/dL (74-106)
[2022-01-11 12:51] LABS: Bedside Glucose 252 mg/dL (74-106)
--- NOTE | 2022-01-11 15:25 | PCM.HBO.PN ---
History of Present Illness Date of Service: 01/11/22 Chief Complaint: Osteomyelitis and chronic delayed healing ulcer, left foot History of Wound: The patient presented for a chronic, non-healing wound to left heel with osteomyelitis. A limb and life-threatening infection required emergent surgical intervention on 05-29-2021. 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 He denies fever, chill, nausea, vomiting, pain, odor, redness today. He is keeping weight off of his foot. He continues to take antibiotics as advised and is also undergoing hyperbaric oxygen therapy treatments. He continues on blood thinner due to his deep venous thrombosis and his leg swelling is starting to reduce. Progress of Wound: Today is the 19th treatment of hyperbaric oxygen therapy.? The patient is scheduled for 30 treatments total. Objective Data Objective Data Vital Signs: Vital Signs Temp Pulse Resp BP O2 Del Method 96.3 F L 71 17 128/60 H Room Air 01/10/22 12:50 01/10/22 12:50 01/09/22 11:15 01/10/22 12:50 01/09/22 08:51 Oxygen Delivery Method Room Air Body Mass Index (BMI) 33.7 Lab / Micro Data Labs: Laboratory Results - last 24 hr 01/11/22 10:16: POC Glucose 201 H 01/11/22 12:30: POC Glucose 252 H Exam Physical Exam Const alert, oriented x3 and no apparent distress HEENT HEENT Narrative: Tubes present to TM's b/l; open, patent and in place Psych mental status grossly normal, thought process normal, cooperative, affect normal and speech normal Nursing Assessment and Debridement Post-Debridement Measurements and Additional Note: Post-Debridement Measurements/Treatment WC - Nurse 1 - General Ulcer Assessment Start: 12/17/21 10:53 Freq: Status: Active Protocol: [email or web address] Activity Type Activity Date Activity User E-sign Co-sign Detail Recorded Client Recorded Date Recorded By Document 01/09/22 08:51 [facility] [id number] 01/09/22 08:59 [facility] Document 01/10/22 12:50 AK [id number] 01/10/22 13:04 AK 01/09/22 01/10/22 08:51 12:50 - Today's Visit Information Type of service Follow-up Visit Nurse-only (Physician/SCALPER OPERATOR Visit ) Arrival Mode Wheelchair Wheelchair Transfer Assistance Other Transfer Assist (Other) stand by Patient Identification Verified (Name & Yes Yes ) Patient Requires Transmission-Based No No Precautions Safety Precautions NA Height and Weight Body Mass Index (BMI) 33.7 33.7 BMI Classification Obese Obese Vital Signs Temperature (97.8 F-99.1 F) 96.3 F L Temperature Source Temporal Pulse Rate (60-100) 67 Pulse Location Monitor Respiratory Rate (12-18) 16 Respiratory rate source Observation Oxygen Delivery Method Room Air Blood Pressure (90/60-120/80) 121/49 H Blood Pressure Mean (mm Hg) 73 Source Monitor Position Sitting Blood Pressure Location Left Arm History Since Last Visit- (Skip if this is Patient's initial visit) Have you changed medications since your No No last visit? Any new allergies or adverse reactions No No Had a fall/change in ADL's that may No No increase risk of falls Signs or symptoms of abuse and/or No No neglect since last visit Have you been in the hospital since your No No last visit? Has dressing in place as prescribed Yes Yes Has compression in place as prescribed Yes Yes Has offloadiing in place as prescribed Yes N/A Experienced any changes in pain level or No No management Left Footwear Removable Cast Regular Shoe Walker/Walking Boot Right Footwear Regular Shoe Surgical Shoe with pressure relief insole Pain Scale: 0-10 Numeric Is Patient Pain Free? Yes No WC - Nurse 1 - General Ulcer Measurement Start: 12/17/21 10:53 Freq: Status: Active Protocol: Activity Type Activity Date Activity User E-sign Co-sign Detail Recorded Client Recorded Date Recorded By Document 01/09/22 08:51 [facility] [id number] 01/09/22 08:59 [facility] 01/09/22 08:51 Wound Center Nurse 1 #1 left heel cluster -Combined with other wound No -Current Size (cm) - Length 4.2 -Current Size (cm) - Width 3.9 -Current Size (cm) - Depth 0.3 -Total Square Cm 16.38 -Date of Last Picture (Recall this 01/09/22 field) -Photo Taken Yes -Epithelialization None Present -Tunneling No -Undermining/Tunneling No -Circular Undermining No -Exudate Amt Large -Exudate Type Serosanguineous -Wound Margin Thickened -Granulation Amt Small (1-33%) -Granulation Quality Red -Slough/Fibrin Yes -Necrosis Amt Large (67-100%) -Necrotic Tissue Type Adherent Slough -Texture (Margaret-wound Skin Appearance) Assessed, Scarring -Moisture (Margaret-wound Skin Appearance) Assessed, Maceration,Dry/ Scaly -Color (Margaret-wound Skin Appearance) Assessed,Palor -Temperature (Margaret-wound Skin No Abnormality Appearance) (Pt Warm) -Tenderness on Palpation (Margaret-wound Yes Skin Appearance) -Ulcer Cleansing Soap and Water -Foul Odor after Cleansing No -Anesthetic Used 4% Lidocaine Solution Lower Limb Edema Present Yes Left Calf (cm) 43 Left Ankle (cm) 22.5 WC - Nurse 2 - General Ulcer CM Notes Start: 12/17/21 10:53 Freq: Status: Active Protocol: Activity Type Activity Date Activity User E-sign Co-sign Detail Recorded Client Recorded Date Recorded By Document 01/09/22 09:08 DANIEL [id number] 01/09/22 09:21 DANIEL 01/09/22 09:08 Wound Center Nurse 2 #1 left heel cluster -Time 09:09 -Correct Patient Yes -Correct Side, Site, Position Yes -Correct Procedure Yes -Procedure Performed Yes -Type of Procedure Debridement -Clinical Debridement Subcutaneous -Tissue Removed Subcutaneous -Post Debridement (cm) - Length 4.2 -Post Debridement (cm) - Width 4 -Post Debridement (cm) - Depth 0.3 -Total Square (Post) (cm) 16.8 -Area of Debridement (cm) - Length 4.2 -Area of Debridement (cm) - Width 4 -Total Square (Area) (cm) 16.8 -Tunneling No -Undermining/Tunneling No -Circular Undermining No -Wound/Ulcer Outcome Not Healed -Ulcer Cleansing Rinsed/ Irrigated with Saline -Foul Odor after Cleansing No -Bioengineered Tissue Yes -Type of Bioengineered Tissue Theraskin -Expiration Date 02/17/25 -Product Lot Number [id number] -Percent Used 100 -Lot number of Saline Used [id number] -Bleeding Controlled with Pressure -Treatment Response Procedure Tolerated Well -Offloading Yes -Type of Offloading Camwalker -Assistive Device(s) Wheelchair -Debridement - Subq, 1st 20sq cm No -Apply Skin Sub - 1st 25 sq cm - Feet 1 -Theraskin (per sq cm) 26 Pain Scale: 0-10 Numeric Is Patient Pain Free? Yes WC - Nurse 3 - General Ulcer D/C NN Start: 12/17/21 10:53 Freq: Status: Active Protocol: Activity Type Activity Date Activity User E-sign Co-sign Detail Recorded Client Recorded Date Recorded By Document 01/09/22 09:37 RB [id number] 01/09/22 09:39 RB Document 01/10/22 12:50 [place] [id number] 01/10/22 13:04 AK 01/09/22 01/10/22 09:37 12:50 Pain Scale: 0-10 Numeric Is Patient Pain Free? Yes No Wound Care Nurse 3 #1 left heel cluster -Ulcer Cleansing Soap and Water -Foul Odor after Cleansing No -Negative Pressure Wound Therapy N/A -Primary Dressing Applied Optilok 6.5x10 Aquacel AG 4x4 -Other Dressing superabsorber, 2ABD kerlix, kevin -Primary Dressing Covered/Secured with Dry Gauze & Dry Gauze & Roll Gauze, Roll Gauze, Secured with Secured with Tape Tape -Aquacel AG 4x4 0 -Optilok 6.5x10 1 Left -Compression Wrap Kevin Wrap -Other kevin Treatment Response Procedure Tolerated Well WC - Visit Discharge Discharge Condition Stable Stable Ambulatory Status Wheelchair Wheelchair Transportation Private Auto Private Auto Medication Reconcilliation completed & No Yes provided to patient/care provider Clinical Summary of Care Provided Yes Yes Assessment/Plan Assessment/Plan (1) Osteomyelitis: CODE(S): M86.9 - Osteomyelitis, unspecified (2) Foot osteomyelitis: CODE(S): M86.9 - Osteomyelitis, unspecified QUALIFIERS: Osteomyelitis type: other acute Laterality: left Qualified Code(s): M86.172 - Other acute osteomyelitis, left ankle and foot (3) Chronic ulcer of left foot with necrosis of bone: CODE(S): L97.524 - Non-pressure chronic ulcer of other part of left foot with necrosis of bone (4) Type 2 diabetes mellitus with diabetic polyneuropathy: CODE(S): E11.42 - Type 2 diabetes mellitus with diabetic polyneuropathy QUALIFIERS: Diabetes mellitus penitentiary insulin use: with ocean transportation intermediary use Qualified Code(s): E11.42 - Type 2 diabetes mellitus with diabetic polyneuropathy; Z79.4 - lobsterman (current) use of insulin (5) Diabetic foot ulcer: CODE(S): E11.621 - Type 2 diabetes mellitus with foot ulcer; L97.509 - Non-pressure chronic ulcer of other part of unspecified foot with unspecified severity QUALIFIERS: Diabetic foot ulcer location: heel Diabetes mellitus type: type 2 Laterality: left Non-pressure ulcer stage: with fat layer exposed Qualified Code(s): E11.621 - Type 2 diabetes mellitus with foot ulcer; L97.422 - Non-pressure chronic ulcer of left heel and midfoot with fat layer exposed (6) Bilateral edema of lower extremity: CODE(S): R60.0 - Localized edema PLAN: Plan The patient tolerated hyperbaric oxygen therapy well which will be continued as per his medical plan.
[2022-01-14 10:35] LABS: Bedside Glucose 197 mg/dL (74-106)
--- NOTE | 2022-01-14 11:00 | PCM.HBO.PN ---
History of Present Illness Date of Service: 01/14/22 Chief Complaint: Osteomyelitis and chronic delayed healing ulcer, left foot History of Wound: The patient presented for a chronic, non-healing wound to left heel with osteomyelitis. A limb and life-threatening infection required emergent surgical intervention on 05-29-2021. 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 He denies fever, chill, nausea, vomiting, pain, odor, redness today. He is keeping weight off of his foot. He continues to take antibiotics as advised and is also undergoing hyperbaric oxygen therapy treatments. He continues on blood thinner due to his deep venous thrombosis and his leg swelling is starting to reduce. Progress of Wound: Today is the 20th treatment of hyperbaric oxygen therapy.? The patient is scheduled for 30 treatments total. Objective Data Objective Data Vital Signs: Vital Signs Temp Pulse Resp BP O2 Del Method 97.6 F L 67 20 H 135/58 H Room Air 01/11/22 07:18 01/11/22 07:18 01/11/22 07:18 01/11/22 07:18 01/09/22 08:51 Oxygen Delivery Method Room Air Body Mass Index (BMI) 33.7 Lab / Micro Data Labs: Laboratory Results - last 24 hr 01/14/22 10:14: POC Glucose 197 H Exam Physical Exam Const alert, oriented x3 and no apparent distress General Appearance: cooperative HEENT normocephalic HEENT Narrative: Bilateral ear tubes in place. Nose: external nose normal Resp normal respiratory effort, no use of accessory muscles and clear to auscultation bilaterally Auscultation: wheezes scattered wheezes and throughout Cardio regular rate and regular rhythm Psych affect normal Assessment/Plan Assessment/Plan (1) Osteomyelitis: CODE(S): M86.9 - Osteomyelitis, unspecified (2) Foot osteomyelitis: CODE(S): M86.9 - Osteomyelitis, unspecified QUALIFIERS: Laterality: left Osteomyelitis type: other acute Qualified Code(s): M86.172 - Other acute osteomyelitis, left ankle and foot (3) Chronic ulcer of left foot with necrosis of bone: CODE(S): L97.524 - Non-pressure chronic ulcer of other part of left foot with necrosis of bone (4) Type 2 diabetes mellitus with diabetic polyneuropathy: CODE(S): E11.42 - Type 2 diabetes mellitus with diabetic polyneuropathy QUALIFIERS: Diabetes mellitus retirement insulin use: with equipment operator intermodal yard use Qualified Code(s): E11.42 - Type 2 diabetes mellitus with diabetic polyneuropathy; Z79.4 - bed bug exterminator (current) use of insulin (5) Diabetic foot ulcer: CODE(S): E11.621 - Type 2 diabetes mellitus with foot ulcer; L97.509 - Non-pressure chronic ulcer of other part of unspecified foot with unspecified severity QUALIFIERS: Diabetes mellitus type: type 2 Diabetic foot ulcer location: heel Laterality: left Non-pressure ulcer stage: with fat layer exposed Qualified Code(s): E11.621 - Type 2 diabetes mellitus with foot ulcer; L97.422 - Non-pressure chronic ulcer of left heel and midfoot with fat layer exposed (6) Bilateral edema of lower extremity: CODE(S): R60.0 - Localized edema PLAN: Plan The patient tolerated hyperbaric oxygen therapy well which will be continued as per his medical plan.
[2022-01-14 12:09] VITALS: BP 133/54; PULSE 70; TEMP 36.2; BMI 33.7
[2022-01-14 12:56] LABS: Bedside Glucose 242 mg/dL (74-106)
[2022-01-15 10:31] LABS: Bedside Glucose 199 mg/dL (74-106)
[2022-01-15 12:45] LABS: Bedside Glucose 206 mg/dL (74-106)
[2022-01-15 13:13] VITALS: BP 123/46; PULSE 76; TEMP 36.6; BMI 33.7
--- NOTE | 2022-01-16 08:26 | HBO.PN.PCM_ITS ---
History of Present Illness Date of Service: 01/15/22 Chief Complaint: Osteomyelitis and chronic delayed healing ulcer, left foot History of Wound: The patient presented for a chronic, non-healing wound to left heel with osteomyelitis. A limb and life-threatening infection required emergent surgical intervention on 05-29-2021. 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 He denies fever, chill, nausea, vomiting, pain, odor, redness today. He is keeping weight off of his foot. He continues to take antibiotics as advised and is also undergoing hyperbaric oxygen therapy treatments. He continues on blood thinner due to his deep venous thrombosis and his leg swelling is starting to reduce. Progress of Wound: Today is the 21st treatment of hyperbaric oxygen therapy.? The patient is scheduled for 30 treatments total. Subjective Subjective Patient presented today for hyperbaric oxygen therapy. Hyperbaric oxygen the rapy was administered as per the facility's protocol. Hyperbaric oxygen therapy was administered for 90 minutes with no air breaks. The patient tolerated hyperbaric oxygen therapy well, without complaints or complications. Upon emergence from the hyperbaric chamber, the patient's vital signs remained stable. He was discharged in good condition. Objective Data Objective Data Vital Signs: Vital Signs Temp Pulse Resp BP O2 Del Method 97.9 F 76 20 H 123/46 H Room Air 01/15/22 13:13 01/15/22 13:13 01/11/22 07:18 01/15/22 13:13 01/09/22 08:51 Oxygen Delivery Method Room Air Body Mass Index (BMI) 33.7 Lab / Micro Data Labs: Laboratory Results - last 24 hr 01/15/22 10:11: POC Glucose 199 H 01/15/22 12:25: POC Glucose 206 H Exam Physical Exam Const alert, oriented x3 and no apparent distress General Appearance: cooperative and well developed HEENT normocephalic and EAC's normal HEENT Narrative: Bilateral ear tubes in place. Head and Scalp: atraumatic Nose: external nose normal Eyes PERRL and EOMs intact bilaterally Neck no JVD Resp normal respiratory effort, no use of accessory muscles and clear to auscultation bilaterally Effort and Inspection: able to speak in complete sentences Psych affect normal Appearance: grossly normal Nursing Assessment and Debridement Post-Debridement Measurements and Additional Note: Post-Debridement Measurements/Treatment WC - Nurse 1 - General Ulcer Assessment Start: 12/17/21 10:53 Freq: Status: Active Protocol: EVELYN Activity Type Activity Date Activity User E-sign Co-sign Detail Recorded Client Recorded Date Recorded By Document 01/14/22 12:09 AK [id number] 01/14/22 12:11 AK Document 01/15/22 13:13 AK [id number] 01/15/22 13:20 AK 01/14/22 01/15/22 12:09 13:13 - Today's Visit Information Type of service Nurse-only Nurse-only Visit Visit Arrival Mode Wheelchair Wheelchair Patient Identification Verified (Name & Yes Yes ) Patient Requires Transmission-Based No No Precautions Safety Precautions NA Finger Stick Blood Sugar(mg/dl) (if 197 indicated): Blood Sugar Done During this Visit Height and Weight Body Mass Index (BMI) 33.7 33.7 BMI Classification Obese Obese Vital Signs Temperature (97.8 F-99.1 F) 97.2 F L 97.9 F Temperature Source Temporal Temporal Pulse Rate (60-100) 70 Pulse Location Monitor Blood Pressure (90/60-120/80) 133/54 H Blood Pressure Mean (mm Hg) 80 Source Monitor History Since Last Visit- (Skip if this is Patient's initial visit) Have you changed medications since your No No last visit? Any new allergies or adverse reactions No No Had a fall/change in ADL's that may No No increase risk of falls Signs or symptoms of abuse and/or No No neglect since last visit Have you been in the hospital since your No No last visit? Has dressing in place as prescribed Yes Yes Has compression in place as prescribed Yes Yes Has offloadiing in place as prescribed Yes N/A Experienced any changes in pain level or No No management Left Footwear Removable Cast Walker/Walking Boot Right Footwear Regular Shoe Pain Scale: 0-10 Numeric Is Patient Pain Free? No Yes - Nurse 3 - General Ulcer D/C NN Start: 12/17/21 10:53 Freq: Status: Active Protocol: Activity Type Activity Date Activity User E-sign Co-sign Detail Recorded Client Recorded Date Recorded By Document 01/14/22 12:09 AK [id number] 01/14/22 12:11 AK Document 01/15/22 13:13 AK [id number] 01/15/22 13:20 AK 01/14/22 01/15/22 12:09 13:13 Vital Signs Temperature (97.8 F-99.1 F) 97.2 F L 97.9 F Temperature Source Temporal Temporal Pulse Rate (60-100) 70 Pulse Location Monitor Blood Pressure (90/60-120/80) 133/54 H Blood Pressure Mean (mm Hg) 80 Source Monitor Pain Scale: 0-10 Numeric Is Patient Pain Free? No Yes Wound Care Nurse 3 #1 left heel cluster -Primary Dressing Applied Aquacel AG 4x4 -Other Dressing 3ABD ABD -Primary Dressing Covered/Secured with Dry Gauze & Roll Gauze, Secured with Tape -Aquacel AG 4x4 0 Left -Lotion applied to leg before No No compression wrap -Compression Wrap Kevin Wrap Kevin Wrap WC - Visit Discharge Discharge Condition Stable Ambulatory Status Wheelchair Transportation Private Auto Medication Reconcilliation completed & Yes provided to patient/care provider Clinical Summary of Care Provided Yes Assessment/Plan Assessment/Plan (1) Other acute osteomyelitis, left ankle and foot: CODE(S): M86.172 - Other acute osteomyelitis, left ankle and foot (2) Osteomyelitis: CODE(S): M86.9 - Osteomyelitis, unspecified (3) Foot osteomyelitis: CODE(S): M86.9 - Osteomyelitis, unspecified QUALIFIERS: Osteomyelitis type: other acute Laterality: left Qualified Code(s): M86.172 - Other acute osteomyelitis, left ankle and foot (4) Chronic ulcer of left foot with necrosis of bone: CODE(S): L97.524 - Non-pressure chronic ulcer of other part of left foot with necrosis of bone (5) Type 2 diabetes mellitus with diabetic polyneuropathy: CODE(S): E11.42 - Type 2 diabetes mellitus with diabetic polyneuropathy QUALIFIERS: Diabetes mellitus fdc insulin use: with supervisor intermediates use Qualified Code(s): E11.42 - Type 2 diabetes mellitus with diabetic polyneuropathy; Z79.4 - terminal block assembler (current) use of insulin (6) Diabetic foot ulcer: CODE(S): E11.621 - Type 2 diabetes mellitus with foot ulcer; L97.509 - Non-pressure chronic ulcer of other part of unspecified foot with unspecified severity QUALIFIERS: Diabetic foot ulcer location: heel Diabetes mellitus type: type 2 Laterality: left Non-pressure ulcer stage: with fat layer exposed Qualified Code(s): E11.621 - Type 2 diabetes mellitus with foot ulcer; L97.422 - Non-pressure chronic ulcer of left heel and midfoot with fat layer exposed (7) Bilateral edema of lower extremity: CODE(S): R60.0 - Localized edema PLAN: Plan The patient tolerated hyperbaric oxygen therapy well which will be continued as per his medical plan.
[2022-01-16 09:26] VITALS: BP 128/50; PULSE 60; RESP 18; TEMP 36.1; BMI 33.7
--- NOTE | 2022-01-16 10:05 | PN.PCM_ITS ---
History of Present Illness Date of Service: 01/16/22 Chief Complaint: Osteomyelitis and chronic delayed healing ulcer, left foot History of Wound: The patient presented for a chronic, non-healing wound to left heel with osteomyelitis. A limb and life-threatening infection required emergent surgical intervention on 05-29-2021. 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 He denies fever, chill, nausea, vomiting, pain, odor, redness today. He is keeping weight off of his foot. He continues to take antibiotics as advised and is also undergoing hyperbaric oxygen therapy treatments. He continues on blood thinner due to his deep venous thrombosis and his leg swelling is starting to reduce. He had an application of TheraSkin last week. Progress of Wound: improving with base quality and reduced ulcer depth Objective Data Objective Data Vital Signs: Vital Signs Temp Pulse Resp BP O2 Del Method 97 F L 60 18 128/50 H Room Air 01/16/22 09:26 01/16/22 09:26 01/16/22 09:26 01/16/22 09:26 01/09/22 08:51 Oxygen Delivery Method Room Air Body Mass Index (BMI) 33.7 Lab / Micro Data Labs: Laboratory Results - last 24 hr 01/15/22 10:11: POC Glucose 199 H 01/15/22 12:25: POC Glucose 206 H Physical Exam Narrative Const alert and no apparent distress General Appearance: cooperative and comfortable Extremity There is diffuse decreased left foot/ankle and leg swelling. Healed arch with full epithelialization and good skin remodeling. No longer bone probing noted to left heel. There is peripheral granulation tissue and minimal peripheral callus also. There is no streaking or odor, compartments remain soft to palpate, there is no fluctuance or bogginess on palpation, no drainage, no visible abscess, no cellulitis, no blistering present. Hematogenous / serosanguineous drainage only upon debridement. Improved healthy granular tissue noted. Periwound moisture and maceration has resolved. Lack of normal epicritic sensation via light touch. Pain decreased with manipulation and heel compression consistent prior visits normal capillary refill, no acute ischemic skin changes noted, normal temp erature bilateral. Const oriented x3 General Appearance: cooperative Skin Skin Narrative: Wounds left heel osteomyelitis Wound Narrative: Neuro Neuro Narrative: Debridement Note Debridement Note Wound debrided: left heel Laterality: Left Wound Grade/Stage: 3 Type of Debridement: Excisional debridement Anesthesia Used: 4% Lidocaine Solution Depth: in the subcutaneous layer Percentage of wound debrided: 100 Instrument Used: #15 blade Tissue Removed: fibrous, devitalized subcutaneous, biofilm, slough Severity: Fat Layer Exposed Amount of bleeding with debridement: Mild Bleeding Controlled with: Pressure Patient tolerated procedure: Patient tolerated procedure well Post-Debridement Measurements and Additional Note: Post-Debridement Measurements/Treatment - Nurse 1 - General Ulcer Assessment Start: 12/17/21 10:53 Freq: Status: Active Protocol: EVELYN Activity Type Activity Date Activity User E-sign Co-sign Detail Recorded Client Recorded Date Recorded By Document 12/17/21 11:31 AK [id number] 12/17/21 11:34 AK Document 12/19/21 10:21 DL [id number] 12/19/21 10:27 DL Document 12/21/21 08:46 ML [id number] 12/21/21 08:48 ML Document 12/26/21 10:54 DL [id number] 12/26/21 10:59 DL Document 01/02/22 10:42 RB [id number] 01/02/22 10:43 RB Document 01/09/22 08:51 BMF [id number] 01/09/22 08:59 BMF Document 01/10/22 12:50 AK [id number] 01/10/22 13:04 AK Document 01/14/22 12:09 AK [id number] 01/14/22 12:11 AK Document 01/15/22 13:13 AK [id number] 01/15/22 13:20 AK Document 01/16/22 09:26 RB [id number] 01/16/22 09:36 RB 12/17/21 12/19/21 12/21/21 11:31 10:21 08:46 - Today's Visit Information Type of service Nurse-only Follow-up Visit Nurse-only Visit (Physician/CLERICAL ADMINISTRATOR Visit ) Arrival Mode Wheelchair Wheelchair Wheelchair Transfer Assistance None None Transfer Assist (Other) Patient Identification Verified (Name & Yes Yes Yes ) Patient Requires Transmission-Based No No No Precautions Safety Precautions NA NA Finger Stick Blood Sugar(mg/dl) (if indicated): Blood Sugar Height and Weight Body Mass Index (BMI) 33.7 33.7 33.7 BMI Classification Obese Obese Obese Vital Signs Temperature (97.8 F-99.1 F) 96.3 F L Temperature Source Temporal Pulse Rate (60-100) 66 Pulse Location Monitor Respiratory Rate (12-18) Respiratory rate source Oxygen Delivery Method Blood Pressure (90/60-120/80) 149/62 H Blood Pressure Mean (mm Hg) 91 Source Monitor Position Blood Pressure Location Comment completed HBO this am History Since Last Visit- (Skip if this is Patient's initial visit) Have you changed medications since your No No No last visit? Any new allergies or adverse reactions No No No Had a fall/change in ADL's that may No No No increase risk of falls Signs or symptoms of abuse and/or No No No neglect since last visit Have you been in the hospital since your No No No last visit? Has dressing in place as prescribed Yes Yes No Has compression in place as prescribed Yes Yes Yes Has offloadiing in place as prescribed Yes Yes Yes Experienced any changes in pain level or No No No management Left Footwear Removable Cast Regular Shoe Walker/Walking Boot Right Footwear Regular Shoe Removable Cast Walker/Walking Boot Pain Scale: 0-10 Numeric Is Patient Pain Free? Yes Yes Yes 12/26/21 01/02/22 01/09/22 10:54 10:42 08:51 WC - Today's Visit Information Type of service Follow-up Visit Follow-up Visit Follow-up Visit (Physician/CLERICAL ADMINISTRATOR (Physician/CLERICAL ADMINISTRATOR (Physician/CLERICAL ADMINISTRATOR ) ) ) Arrival Mode Ambulatory, Wheelchair Wheelchair Wheelchair Transfer Assistance Manual Manual Other Transfer Assist (Other) x2 stand by Patient Identification Verified (Name & Yes Yes Yes ) Patient Requires Transmission-Based No No No Precautions Safety Precautions Finger Stick Blood Sugar(mg/dl) (if 78 indicated): Blood Sugar Height and Weight Body Mass Index (BMI) 33.7 33.7 33.7 BMI Classification Obese Obese Obese Vital Signs Temperature (97.8 F-99.1 F) 97.4 F L 96.3 F L Temperature Source Temporal Temporal Pulse Rate (60-100) 69 67 Pulse Location Monitor Monitor Respiratory Rate (12-18) 18 16 Respiratory rate source Observation Observation Oxygen Delivery Method Room Air Blood Pressure (90/60-120/80) 130/70 H 121/49 H Blood Pressure Mean (mm Hg) 90 73 Source Monitor Monitor Position Sitting Blood Pressure Location Left Arm Comment History Since Last Visit- (Skip if this is Patient's initial visit) Have you changed medications since your No No No last visit? Any new allergies or adverse reactions No No No Had a fall/change in ADL's that may No No No increase risk of falls Signs or symptoms of abuse and/or No No No neglect since last visit Have you been in the hospital since your No No No last visit? Has dressing in place as prescribed Yes Yes Yes Has compression in place as prescribed Yes No Yes Has offloadiing in place as prescribed Yes Yes Yes Experienced any changes in pain level or No No No management Left Footwear Multipodus Removable Cast Splint/Boot Walker/Walking Boot Right Footwear Regular Shoe Pain Scale: 0-10 Numeric Is Patient Pain Free? Yes Yes Yes 01/10/22 01/14/22 01/15/22 12:50 12:09 13:13 WC - Today's Visit Information Type of service Nurse-only Nurse-only Nurse-only Visit Visit Visit Arrival Mode Wheelchair Wheelchair Wheelchair Transfer Assistance Transfer Assist (Other) Patient Identification Verified (Name & Yes Yes Yes ) Patient Requires Transmission-Based No No No Precautions Safety Precautions NA NA Finger Stick Blood Sugar(mg/dl) (if 197 indicated): Blood Sugar Done During this Visit Height and Weight Body Mass Index (BMI) 33.7 33.7 33.7 BMI Classification Obese Obese Obese Vital Signs Temperature (97.8 F-99.1 F) 97.2 F L 97.9 F Temperature Source Temporal Temporal Pulse Rate (60-100) 70 Pulse Location Monitor Respiratory Rate (12-18) Respiratory rate source Oxygen Delivery Method Blood Pressure (90/60-120/80) 133/54 H Blood Pressure Mean (mm Hg) 80 Source Monitor Position Blood Pressure Location Comment History Since Last Visit- (Skip if this is Patient's initial visit) Have you changed medications since your No No No last visit? Any new allergies or adverse reactions No No No Had a fall/change in ADL's that may No No No increase risk of falls Signs or symptoms of abuse and/or No No No neglect since last visit Have you been in the hospital since your No No No last visit? Has dressing in place as prescribed Yes Yes Yes Has compression in place as prescribed Yes Yes Yes Has offloadiing in place as prescribed N/A Yes N/A Experienced any changes in pain level or No No No management Left Footwear Regular Shoe Removable Cast Walker/Walking Boot Right Footwear Surgical Shoe Regular Shoe with pressure relief insole Pain Scale: 0-10 Numeric Is Patient Pain Free? No No Yes 01/16/22 09:26 WC - Today's Visit Information Type of service Follow-up Visit (Physician/CLERICAL ADMINISTRATOR ) Arrival Mode Wheelchair Transfer Assistance Manual Transfer Assist (Other) Patient Identification Verified (Name & Yes ) Patient Requires Transmission-Based No Precautions Safety Precautions Finger Stick Blood Sugar(mg/dl) (if indicated): Blood Sugar Height and Weight Body Mass Index (BMI) 33.7 BMI Classification Obese Vital Signs Temperature (97.8 F-99.1 F) 97 F L Temperature Source Temporal Pulse Rate (60-100) 60 Pulse Location Monitor Respiratory Rate (12-18) 18 Respiratory rate source Observation Oxygen Delivery Method Blood Pressure (90/60-120/80) 128/50 H Blood Pressure Mean (mm Hg) 76 Source Monitor Position Sitting Blood Pressure Location Left Arm Comment History Since Last Visit- (Skip if this is Patient's initial visit) Have you changed medications since your No last visit? Any new allergies or adverse reactions No Had a fall/change in ADL's that may No increase risk of falls Signs or symptoms of abuse and/or No neglect since last visit Have you been in the hospital since your No last visit? Has dressing in place as prescribed Yes Has compression in place as prescribed No Has offloadiing in place as prescribed Yes Experienced any changes in pain level or No management Left Footwear Surgical Shoe with pressure relief insole Right Footwear Pain Scale: 0-10 Numeric Is Patient Pain Free? Yes - Nurse 1 - General Ulcer Measurement Start: 12/17/21 10:53 Freq: Status: Active Protocol: Activity Type Activity Date Activity User E-sign Co-sign Detail Recorded Client Recorded Date Recorded By Document 12/19/21 10:21 DL [id number] 12/19/21 10:27 DL Document 12/26/21 10:54 DL [id number] 12/26/21 10:59 DL Document 01/02/22 10:42 RB [id number] 01/02/22 10:43 RB Document 01/09/22 08:51 [facility] [id number] 01/09/22 08:59 BMF Document 01/16/22 09:26 RB [id number] 01/16/22 09:36 RB 12/19/21 12/26/21 01/02/22 10:21 10:54 10:42 Wound Center Nurse 1 #1 left heel cluster -Combined with other wound No -Current Size (cm) - Length 4 3.5 3.8 -Current Size (cm) - Width 3.6 3.4 4.1 -Current Size (cm) - Depth 1 0.5 0.7 -Total Square Cm 14.4 11.90 15.58 -Date of Last Picture (Recall this field) -Photo Taken Yes Yes -Epithelialization None Present -Tunneling -Undermining/Tunneling No -Undermining/Tunneling Starts (O'clock 7 8 ) -Undermining/Tunneling Ends (O'clock) 11 11 -Maximum Distance (cm) 1.3 1.5 -Undermining/Tunneling Starts #2 (O' 1 clock) -Undermining/Tunneling Ends #2 (O' 4 clock) -Maximum Distance #2 (cm) 0.2 -Circular Undermining No -Exudate Amt Medium Medium Large -Exudate Type Serosanguineous Serosanguineous Serosanguineous -Wound Margin Thickened Thickened & Thickened Rolled Under -Granulation Amt None Present (0 Small (1-33%) Medium (34-66%) %) -Granulation Quality [place] -Slough/Fibrin Yes -Necrosis Amt Large (67-100%) Medium (34-66%) -Necrotic Tissue Type Adherent Slough Adherent Slough Adherent Slough -Structure Exposed N/A N/A -Texture (Margaret-wound Skin Appearance) Callus Scarring Callus -Moisture (Margaret-wound Skin Appearance) Maceration Maceration Assessed -Color (Margaret-wound Skin Appearance) Hemosiderin Hemosiderin Assessed Staining Staining -Temperature (Margaret-wound Skin No Abnormality No Abnormality No Abnormality Appearance) (Pt Warm) (Pt Warm) (Pt Warm) -Tenderness on Palpation (Margaret-wound No No No Skin Appearance) -Ulcer Cleansing Soap and Water Soap and Water Wound Cleanser -Foul Odor after Cleansing No No No -Anesthetic Used 5% Lidocaine 5% Lidocaine 5% Lidocaine Gel Gel Gel Lower Limb Edema Present Left Calf (cm) Left Ankle (cm) 01/09/22 01/16/22 08:51 09:26 Wound Center Nurse 1 #1 left heel cluster -Combined with other wound No No -Current Size (cm) - Length 4.2 4 -Current Size (cm) - Width 3.9 3.4 -Current Size (cm) - Depth 0.3 0.4 -Total Square Cm 16.38 13.6 -Date of Last Picture (Recall this 01/09/22 field) -Photo Taken Yes Yes -Epithelialization None Present -Tunneling No No -Undermining/Tunneling No No -Undermining/Tunneling Starts (O'clock ) -Undermining/Tunneling Ends (O'clock) -Maximum Distance (cm) -Undermining/Tunneling Starts #2 (O' clock) -Undermining/Tunneling Ends #2 (O' clock) -Maximum Distance #2 (cm) -Circular Undermining No No -Exudate Amt Large Large -Exudate Type Serosanguineous Serosanguineous -Wound Margin Thickened Thickened -Granulation Amt Small (1-33%) Medium (34-66%) -Granulation Quality [place] -Slough/Fibrin Yes Yes -Necrosis Amt Large (67-100%) Medium (34-66%) -Necrotic Tissue Type Adherent Slough Adherent Slough -Structure Exposed N/A -Texture (Margaret-wound Skin Appearance) Assessed, Callus Scarring -Moisture (Margaret-wound Skin Appearance) Assessed, Assessed Maceration,Dry/ Scaly -Color (Margaret-wound Skin Appearance) Assessed,Palor Assessed -Temperature (Margaret-wound Skin No Abnormality No Abnormality Appearance) (Pt Warm) (Pt Warm) -Tenderness on Palpation (Margaret-wound Yes No Skin Appearance) -Ulcer Cleansing Soap and Water Wound Cleanser -Foul Odor after Cleansing No No -Anesthetic Used 4% Lidocaine 5% Lidocaine Solution Gel Lower Limb Edema Present Yes Left Calf (cm) 43 Left Ankle (cm) 22.5 WC - Nurse 2 - General Ulcer CM Notes Start: 12/17/21 10:53 Freq: Status: Active Protocol: Activity Type Activity Date Activity User E-sign Co-sign Detail Recorded Client Recorded Date Recorded By Document 12/19/21 10:49 [id number] 12/19/21 10:52 Document 12/26/21 11:09 [id number] 12/26/21 11:18 Document 01/02/22 11:30 [id number] 01/02/22 15:40 Document 01/09/22 09:08 [id number] 01/09/22 09:21 Document 01/16/22 09:42 [id number] 01/16/22 09:52 12/19/21 12/26/21 01/02/22 10:49 11:09 11:30 Wound Center Nurse 2 #1 left heel cluster -Time 10:51 11:10 15:39 -Correct Patient Yes Yes Yes -Correct Side, Site, Position Yes Yes Yes -Correct Procedure Yes Yes Yes -Procedure Performed Yes Yes Yes -Type of Procedure Debridement Debridement Debridement -Clinical Debridement Subcutaneous Subcutaneous Subcutaneous -Tissue Removed Subcutaneous Subcutaneous Subcutaneous -Post Debridement (cm) - Length 4.0 3.6 3.8 -Post Debridement (cm) - Width 3.7 4 4.2 -Post Debridement (cm) - Depth 0.9 0.3 0.7 -Total Square (Post) (cm) 14.80 14.4 15.96 -Area of Debridement (cm) - Length 4.0 3.6 3.8 -Area of Debridement (cm) - Width 3.7 4 4.2 -Total Square (Area) (cm) 14.80 14.4 15.96 -Tunneling No No No -Undermining/Tunneling No No No -Circular Undermining No No No -Wound/Ulcer Outcome Not Healed Not Healed Not Healed -Ulcer Cleansing Rinsed/ Rinsed/ Rinsed/ Irrigated with Irrigated with Irrigated with Saline Saline Saline -Foul Odor after Cleansing No No No -Bioengineered Tissue No No No -Type of Bioengineered Tissue -Expiration Date -Product Lot Number -Percent Used -Lot number of Saline Used -Bleeding Controlled with Pressure Pressure Pressure -Treatment Response Procedure Procedure Procedure Tolerated Well Tolerated Well Tolerated Well -Offloading Yes Yes Yes -Type of Offloading Camwalker Camwalker Camwalker -Assistive Device(s) -Debridement - Subq, 1st 20sq cm Yes Yes Yes -Apply Skin Sub - 1st 25 sq cm - Feet -Theraskin (per sq cm) Pain Scale: 0-10 Numeric Is Patient Pain Free? Yes Yes Yes 01/09/22 01/16/22 09:08 09:42 Wound Center Nurse 2 #1 left heel cluster -Time 09:09 09:43 -Correct Patient Yes Yes -Correct Side, Site, Position Yes Yes -Correct Procedure Yes Yes -Procedure Performed Yes Yes -Type of Procedure Debridement Debridement -Clinical Debridement Subcutaneous Subcutaneous -Tissue Removed Subcutaneous Subcutaneous -Post Debridement (cm) - Length 4.2 4 -Post Debridement (cm) - Width 4 3.5 -Post Debridement (cm) - Depth 0.3 0.4 -Total Square (Post) (cm) 16.8 14.0 -Area of Debridement (cm) - Length 4.2 4 -Area of Debridement (cm) - Width 4 3.5 -Total Square (Area) (cm) 16.8 14.0 -Tunneling No No -Undermining/Tunneling No No -Circular Undermining No No -Wound/Ulcer Outcome Not Healed Not Healed -Ulcer Cleansing Rinsed/ Rinsed/ Irrigated with Irrigated with Saline Saline -Foul Odor after Cleansing No No -Bioengineered Tissue Yes Yes -Type of Bioengineered Tissue Theraskin Theraskin -Expiration Date 02/17/25 12/26/24 -Product Lot Number [id number] -Percent Used 100 100 -Lot number of Saline Used [id number] -Bleeding Controlled with Pressure Pressure -Treatment Response Procedure Procedure Tolerated Well Tolerated Well -Offloading Yes Yes -Type of Offloading Camwalker Camwalker -Assistive Device(s) Wheelchair Wheelchair -Debridement - Subq, 1st 20sq cm No No -Apply Skin Sub - 1st 25 sq cm - Feet 1 1 -Theraskin (per sq cm) 26 6 Pain Scale: 0-10 Numeric Is Patient Pain Free? Yes Yes WC - Nurse 3 - General Ulcer D/C NN Start: 12/17/21 10:53 Freq: Status: Active Protocol: Activity Type Activity Date Activity User E-sign Co-sign Detail Recorded Client Recorded Date Recorded By Document 12/17/21 11:31 AK [id number] 12/17/21 11:34 AK Edit Result 12/17/21 11:31 AK (1) [id number] 12/18/21 06:44 PL Document 12/18/21 10:40 DL [id number] 12/18/21 10:43 DL Edit Result 12/18/21 10:40 DL (2) [id number] 12/19/21 06:42 PL Document 12/19/21 11:20 RB [id number] 12/19/21 11:21 RB Document 12/20/21 11:07 JF [id number] 12/20/21 11:08 JF Document 12/21/21 08:46 ML [id number] 12/21/21 08:48 ML Document 12/26/21 11:22 BMF [id number] 12/26/21 11:23 BMF Document 12/28/21 10:22 MT [id number] 12/28/21 10:50 MT Document 01/01/22 10:54 ML [id number] 01/01/22 11:00 ML Edit Result 01/01/22 10:54 ML (3) [id number] 01/01/22 11:03 ML Document 01/02/22 11:15 BMF [id number] 01/02/22 11:16 BMF Document 01/03/22 12:25 ML [id number] 01/03/22 12:32 ML Document 01/08/22 13:16 ML [id number] 01/08/22 13:16 ML Document 01/08/22 13:17 ML [id number] 01/08/22 13:17 ML Document 01/09/22 09:37 RB [id number] 01/09/22 09:39 RB Document 01/10/22 12:50 AK [id number] 01/10/22 13:04 AK Document 01/14/22 12:09 AK [id number] 01/14/22 12:11 AK Document 01/15/22 13:13 AK [id number] 01/15/22 13:20 AK (1) Left - Multi-Layered Wrap Application => Multi-Layer Comp - => Left ($) (2) Left - Multi-Layered Wrap Application => Multi-Layer Comp - => Left ($) (3) #1 left heel cluster - Ulcer Cleansing => Soap and Water - Foul Odor after Cleansing => No - Primary Dressing Applied => Aquacel AG 4x4 - Primary Dressing Covered/Secured with => Dry Gauze & Roll => Gauze,Secured with => Tape - Aquacel AG 4x4 => 1 12/17/21 12/18/21 12/19/21 11:31 10:40 11:20 Vital Signs Temperature (97.8 F-99.1 F) 96.3 F L Temperature Source Temporal Pulse Rate (60-100) 66 Pulse Location Monitor Oxygen Delivery Method Blood Pressure (90/60-120/80) 149/62 H Blood Pressure Mean (mm Hg) 91 Source Monitor Pain Scale: 0-10 Numeric Is Patient Pain Free? Yes Yes Yes Wound Care Nurse 3 #1 left heel cluster -Ulcer Cleansing Soap and Water Soap and Water Rinsed/ Irrigated with Saline -Foul Odor after Cleansing No No -Negative Pressure Wound Therapy N/A -Primary Dressing Applied Aquacel AG 4x4, Aquacel AG 4x4 Aquacel AG 2x2 Optilok 6.5x10 -Other Dressing 2 ABD abd nurses hat and 4 x4 gauze, kerlix . kevin -Primary Dressing Covered/Secured with Dry Gauze & Dry Gauze,Dry Roll Gauze, Gauze & Roll Secured with Gauze,Secured Tape with Tape -Other Covering Nurse Hat -Aquacel AG 4x4 1 1 -Aquacel AG 2x2 1 -Optilok 6.5x10 1 Left -Lotion applied to leg before No compression wrap -Multi-Layered Wrap Application Multi-Layer Multi-Layer Comp - Left ($) Comp - Left ($) -Compression Wrap Kevin Wrap -Stockings No -Other Treatment Response Procedure Procedure Tolerated Well Tolerated Well WC - Visit Discharge Discharge Condition Stable Stable Stable Ambulatory Status Wheelchair Wheelchair Wheelchair Transportation Private Auto Private Auto Private Auto Medication Reconcilliation completed & Yes No provided to patient/care provider Clinical Summary of Care Provided Yes Yes Notes: Dressing applied per Jakob Mason LPN. Nurse Visit today after HBO . 12/20/21 12/21/21 12/26/21 11:07 08:46 11:22 Vital Signs Temperature (97.8 F-99.1 F) Temperature Source Pulse Rate (60-100) Pulse Location Oxygen Delivery Method Blood Pressure (90/60-120/80) Blood Pressure Mean (mm Hg) Source Pain Scale: 0-10 Numeric Is Patient Pain Free? Yes Yes Yes Wound Care Nurse 3 #1 left heel cluster -Ulcer Cleansing Soap and Water Soap and Water Rinsed/ Irrigated with Saline -Foul Odor after Cleansing No No No -Negative Pressure Wound Therapy -Primary Dressing Applied Aquacel AG 4x4 Aquacel AG 2x2, Optilok 6.5x10 -Other Dressing non-charge ABD,KEVIN heel hat aquacel-ag used today -Primary Dressing Covered/Secured with Dry Gauze & Dry Gauze & Dry Gauze & Roll Gauze, Roll Gauze, Roll Gauze, Secured with Secured with Secured with Tape Tape Tape,Other -Other Covering ABD pad abd -Aquacel AG 4x4 1 -Aquacel AG 2x2 1 -Optilok 6.5x10 1 Left -Lotion applied to leg before compression wrap -Multi-Layered Wrap Application -Compression Wrap Kevin Wrap Kevin Wrap -Stockings -Other Treatment Response Procedure Tolerated Well WC - Visit Discharge Discharge Condition Stable Stable Ambulatory Status Wheelchair Wheelchair Transportation Private Auto Private Auto Medication Reconcilliation completed & Yes provided to patient/care provider Clinical Summary of Care Provided Yes Notes: 12/28/21 01/01/22 01/02/22 10:22 10:54 11:15 Vital Signs Temperature (97.8 F-99.1 F) 98 F Temperature Source Temporal Pulse Rate (60-100) 62 Pulse Location Monitor Oxygen Delivery Method Room Air Blood Pressure (90/60-120/80) 116/58 L Blood Pressure Mean (mm Hg) 77 Source Pain Scale: 0-10 Numeric Is Patient Pain Free? Yes Yes Yes Wound Care Nurse 3 #1 left heel cluster -Ulcer Cleansing Soap and Water Soap and Water Rinsed/ Irrigated with Saline -Foul Odor after Cleansing No No -Negative Pressure Wound Therapy -Primary Dressing Applied Aquacel AG 4x4, Aquacel AG 4x4 Other Optilok 6.5x10 -Other Dressing AQUACEL AG -Primary Dressing Covered/Secured with Dry Gauze & Dry Gauze & Dry Gauze & Roll Gauze, Roll Gauze, Roll Gauze, Secured with Secured with Secured with Tape Tape Tape -Other Covering KERRAMAX; ABD, HEEL HAT -Aquacel AG 4x4 1 1 -Aquacel AG 2x2 -Optilok 6.5x10 1 Left -Lotion applied to leg before compression wrap -Multi-Layered Wrap Application -Compression Wrap Kevin Wrap Kevin Wrap -Stockings -Other Treatment Response Procedure Tolerated Well WC - Visit Discharge Discharge Condition Stable Stable Ambulatory Status Wheelchair Wheelchair Transportation Private Auto Private Auto Medication Reconcilliation completed & No provided to patient/care provider Clinical Summary of Care Provided Yes Notes: nurse visit 01/03/22 01/08/22 01/08/22 12:25 13:16 13:17 Vital Signs Temperature (97.8 F-99.1 F) Temperature Source Pulse Rate (60-100) Pulse Location Oxygen Delivery Method Blood Pressure (90/60-120/80) Blood Pressure Mean (mm Hg) Source Pain Scale: 0-10 Numeric Is Patient Pain Free? Yes Yes Yes Wound Care Nurse 3 #1 left heel cluster -Ulcer Cleansing Soap and Water Soap and Water Soap and Water -Foul Odor after Cleansing No No No -Negative Pressure Wound Therapy -Primary Dressing Applied Aquacel AG 4x4 Aquacel AG 4x4 Aquacel AG 4x4 -Other Dressing -Primary Dressing Covered/Secured with Dry Gauze & Dry Gauze & Dry Gauze & Roll Gauze, Roll Gauze, Roll Gauze, Secured with Secured with Secured with Tape Tape Tape -Other Covering KEVIN -Aquacel AG 4x4 0 0 0 -Aquacel AG 2x2 -Optilok 6.5x10 Left -Lotion applied to leg before compression wrap -Multi-Layered Wrap Application -Compression Wrap -Stockings -Other Treatment Response WC - Visit Discharge Discharge Condition Ambulatory Status Transportation Medication Reconcilliation completed & provided to patient/care provider Clinical Summary of Care Provided Notes: 01/09/22 01/10/22 01/14/22 09:37 12:50 12:09 Vital Signs Temperature (97.8 F-99.1 F) 97.2 F L Temperature Source Temporal Pulse Rate (60-100) 70 Pulse Location Monitor Oxygen Delivery Method Blood Pressure (90/60-120/80) 133/54 H Blood Pressure Mean (mm Hg) 80 Source Monitor Pain Scale: 0-10 Numeric Is Patient Pain Free? Yes No No Wound Care Nurse 3 #1 left heel cluster -Ulcer Cleansing Soap and Water -Foul Odor after Cleansing No -Negative Pressure Wound Therapy N/A -Primary Dressing Applied Optilok 6.5x10 Aquacel AG 4x4 -Other Dressing superabsorber, 2ABD 3ABD kerlix, kevin -Primary Dressing Covered/Secured with Dry Gauze & Dry Gauze & Dry Gauze & Roll Gauze, Roll Gauze, Roll Gauze, Secured with Secured with Secured with Tape Tape Tape -Other Covering -Aquacel AG 4x4 0 -Aquacel AG 2x2 -Optilok 6.5x10 1 Left -Lotion applied to leg before No compression wrap -Multi-Layered Wrap Application -Compression Wrap Kevin Wrap Kevin Wrap -Stockings -Other kevin Treatment Response Procedure Tolerated Well WC - Visit Discharge Discharge Condition Stable Stable Ambulatory Status Wheelchair Wheelchair Transportation Private Auto Private Auto Medication Reconcilliation completed & No Yes provided to patient/care provider Clinical Summary of Care Provided Yes Yes Notes: 01/15/22 13:13 Vital Signs Temperature (97.8 F-99.1 F) 97.9 F Temperature Source Temporal Pulse Rate (60-100) Pulse Location Oxygen Delivery Method Blood Pressure (90/60-120/80) Blood Pressure Mean (mm Hg) Source Pain Scale: 0-10 Numeric Is Patient Pain Free? Yes Wound Care Nurse 3 #1 left heel cluster -Ulcer Cleansing -Foul Odor after Cleansing -Negative Pressure Wound Therapy -Primary Dressing Applied Aquacel AG 4x4 -Other Dressing ABD -Primary Dressing Covered/Secured with -Other Covering -Aquacel AG 4x4 0 -Aquacel AG 2x2 -Optilok 6.5x10 Left -Lotion applied to leg before No compression wrap -Multi-Layered Wrap Application -Compression Wrap Kevin Wrap -Stockings -Other Treatment Response WC - Visit Discharge Discharge Condition Stable Ambulatory Status Wheelchair Transportation Private Auto Medication Reconcilliation completed & Yes provided to patient/care provider Clinical Summary of Care Provided Yes Notes: Assessment/Plan Assessment/Plan (1) Other acute osteomyelitis, left ankle and foot: CODE(S): M86.172 - Other acute osteomyelitis, left ankle and foot (2) Osteomyelitis: CODE(S): M86.9 - Osteomyelitis, unspecified (3) Foot osteomyelitis: CODE(S): M86.9 - Osteomyelitis, unspecified QUALIFIERS: Osteomyelitis type: other acute Laterality: left Qualified Code(s): M86.172 - Other acute osteomyelitis, left ankle and foot (4) Chronic ulcer of left foot with necrosis of bone: CODE(S): L97.524 - Non-pressure chronic ulcer of other part of left foot with necrosis of bone (5) Type 2 diabetes mellitus with diabetic polyneuropathy: CODE(S): E11.42 - Type 2 diabetes mellitus with diabetic polyneuropathy QUALIFIERS: Diabetes mellitus machine long goods helper insulin use: with residential use Qualified Code(s): E11.42 - Type 2 diabetes mellitus with diabetic polyneuropathy; Z79.4 - manager long term care (current) use of insulin (6) Diabetic foot ulcer: CODE(S): E11.621 - Type 2 diabetes mellitus with foot ulcer; L97.509 - Non-pressure chronic ulcer of other part of unspecified foot with unspecified severity QUALIFIERS: Diabetic foot ulcer location: heel Diabetes mellitus type: type 2 Laterality: left Non-pressure ulcer stage: with fat layer exposed Qualified Code(s): E11.621 - Type 2 diabetes mellitus with foot ulcer; L97.422 - Non-pressure chronic ulcer of left heel and midfoot with fat layer exposed (7) Bilateral edema of lower extremity: CODE(S): R60.0 - Localized edema (8) Difficulty in walking: CODE(S): R26.2 - Difficulty in walking, not elsewhere classified (9) Left foot pain: CODE(S): M79.672 - Pain in left foot (10) Deep vein thrombosis (DVT) of left lower extremity: CODE(S): I82.402 - Acute embolism and thrombosis of unspecified deep veins of left lower extremity PLAN: Plan ?? This patient was seen and examined.? I reviewed and discussed his case.? Debridement was performed as noted in the clinical nursing panel. Dressing recommendation: A secondary dressing with a super absorption component was applied after advanced wound product.? Nursing staff will check the need to replace secondary dressings when he comes daily for hyperbaric oxygen therapy. Advance wound options: He has a status change diagnosis of osteomyelitis.? I recommend hyperbaric oxygen therapy if he is medically cleared to undergo such treatment.? He reports he is available to come in 5 days a week for couple hours each day and he has anticipated reliable transportation.? his EF is 65%.? Lumber Hacker clearance was obtained and was advised to continue with hyperbaric oxygen therapy sessions and is doing well so far.? I recommend continuation due to the improvement in the quality of the base of his ulcer.? I also recommend advanced wound healing product such as TheraSkin to reduce healing time, prevent limb loss, and promote chronic ulcer stimulation.? He was approved for this and verbal consent was obtained today.? All of the product was utilized. A smaller graft was used and placed around the peripheral margins of the ulcer due to graft availability. Payton was applied to the central wound. This was applied according to standard protocol and was secured with medical glue, wound veil, Steri-Strips.? He was advised keep this clean and intact until next week.? He tolerated this application well. Offloading: To maintain a strict nonweightbearing status to the ulcer to the foot. ? To use assistive walking device as well. He has a cam walker.? I recommend considering application of total contact casting once he is done being treated for his deep venous thrombosis with estimated remaining time from about 1 month. Infection management: This culture results were reviewed with MRSA, Enterobacter, Enterococcus, and corynebacteria.? ? ? He has osteomyelitis which was confirmed with bone biopsy sent to microbiology and pathology.? It appears an extended course of linezolid is appropriate per infectious disease recommendation orally.? This was discussed previously with ID specialist and the patient. Lab trends will be followed weekly. Patient relates he had follow-up appointment with his primary care provider, Priyanka Brown, and relates that she did not change any medication and stated he was doing okay.? PCP is leaving the diabetes management up to his through freight engineer, Dr. Mykel Barraza.? He was able to follow-up and recommendations were updated.? ? An updated hemoglobin A1c order was provided because we are unable to obtain this in a timely manner from the primary care physician's office. this was 8.6%. To follow up with pain management.? It is noted he is already on gabapentin, Percocet, and Tylenol.? I do not recommend additional narcotic pain medication.? This appears to be controlled at this time. Edema management: Medical management per primary care. To reduce salt in diet. Total contact cast will also aide in edema reduction if this considered upon continued foot stability and resolution of infection status.? I only recommend reapplication after he has completed his acute deep venous thrombosis treatment. Arterial studies were reviewed.? Showing likely adequate perfusion for healing.? Right LAI is 0.99 and left 1.18.? Right toe brachial index 0.76 and left 0.71.? Referral to Dr. Campos for potential venous and arterial intervention was provided today.? He went for consultationon 04-11-21. Will recheck duplex to make sure normal posterior tibial flow into the area of the wound. normal prior LAI noted. Host factors: His multiple comorbidities are noted including diabetes and smoking history. Also recommend improvement in nutritional status which involves taking in adequate protein and also focusing on eating 5-10 whole foods daily. Gait abnormality/walking difficulty: I recommend PT and OT intervention with his home health agency.? A referral was provided previously.? He is at risk for falling.? He is fragile and has demonstrated progressive deterioration. All questions answered.? He understands below-knee amputation is an option as well if he cannot keep pressure off the site, if pain becomes intolerable, and if he no longer is able to proceed with a comprehensive wound healing plan.? He defers at this time.? This was discussed at length today.? The benefits and indications of a below-knee amputation were reviewed.? He would like to consider a referral to a doctor in the same healthcare system he attends in the [facility]. Patient to follow up in 1 week or call sooner if status worsening or if questions. ? This note was generated with [employer] software.? It may contain incorrect words, spelling, and punctuation that were not noted in checking the note before signing.
[2022-01-16 10:36] LABS: Bedside Glucose 231 mg/dL (74-106)
[2022-01-16 12:13] VITALS: BP 123/64; BP 128/50; PULSE 58; PULSE 60; TEMP 36.1
[2022-01-16 12:45] LABS: Bedside Glucose 167 mg/dL (74-106)
--- NOTE | 2022-01-16 13:00 | HBO.PN.PCM_ITS ---
History of Present Illness Date of Service: 01/16/22 Chief Complaint: Osteomyelitis and chronic delayed healing ulcer, left foot History of Wound: The patient presented for a chronic, non-healing wound to left heel with osteomyelitis. A limb and life-threatening infection required emergent surgical intervention on 05-29-2021. 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 He denies fever, chill, nausea, vomiting, pain, odor, redness today. He is keeping weight off of his foot. He continues to take antibiotics as advised and is also undergoing hyperbaric oxygen therapy treatments. He continues on blood thinner due to his deep venous thrombosis and his leg swelling is starting to reduce. He had an application of TheraSkin last week. Progress of Wound: improving with base quality and reduced ulcer depth Objective Data Objective Data Patient is here for #21 of 30 HBO treatments and tolerating very well. Vital signs are stable admission and discharge Vital Signs: Vital Signs Temp Pulse Resp BP O2 Del Method 97 F L 60 18 128/50 H Room Air 01/16/22 12:13 01/16/22 12:13 01/16/22 09:26 01/16/22 12:13 01/09/22 08:51 Oxygen Delivery Method Room Air Body Mass Index (BMI) 33.7 Lab / Micro Data Attestation: I reviewed the patient's lab results. Labs: Laboratory Results - last 24 hr 01/16/22 10:13: POC Glucose 231 H 01/16/22 12:26: POC Glucose 167 H Exam Physical Exam Const alert, oriented x3 and no apparent distress General Appearance: cooperative HEENT normocephalic Eyes Eyes Narrative: Bilateral ear tubes in place. Resp normal respiratory effort and no use of accessory muscles Auscultation: wheezes scattered wheezes and throughout Cardio regular rate and regular rhythm Psych affect normal Nursing Assessment and Debridement Post-Debridement Measurements and Additional Note: Post-Debridement Measurements/Treatment WC - Nurse 1 - General Ulcer Assessment Start: 12/17/21 10:53 Freq: Status: Active Protocol: EVELYN Activity Type Activity Date Activity User E-sign Co-sign Detail Recorded Client Recorded Date Recorded By Document 01/14/22 12:09 DAVID [id number] 01/14/22 12:11 AK Document 01/15/22 13:13 AK [id number] 01/15/22 13:20 AK Document 01/16/22 09:26 RB [id number] 01/16/22 09:36 RB 01/14/22 01/15/22 01/16/22 12:09 13:13 09:26 - Today's Visit Information Type of service Nurse-only Nurse-only Follow-up Visit Visit Visit (Physician/TACTICAL INTELLIGENCE OFFICER ) Arrival Mode Wheelchair Wheelchair Wheelchair Transfer Assistance Manual Patient Identification Verified (Name & Yes Yes Yes ) Patient Requires Transmission-Based No No No Precautions Safety Precautions NA Finger Stick Blood Sugar(mg/dl) (if 197 indicated): Blood Sugar Done During this Visit Height and Weight Body Mass Index (BMI) 33.7 33.7 33.7 BMI Classification Obese Obese Obese Vital Signs Temperature (97.8 F-99.1 F) 97.2 F L 97.9 F 97 F L Temperature Source Temporal Temporal Temporal Pulse Rate (60-100) 70 60 Pulse Location Monitor Monitor Respiratory Rate (12-18) 18 Respiratory rate source Observation Blood Pressure (90/60-120/80) 133/54 H 128/50 H Blood Pressure Mean (mm Hg) 80 76 Source Monitor Monitor Position Sitting Blood Pressure Location Left Arm History Since Last Visit- (Skip if this is Patient's initial visit) Have you changed medications since your No No No last visit? Any new allergies or adverse reactions No No No Had a fall/change in ADL's that may No No No increase risk of falls Signs or symptoms of abuse and/or No No No neglect since last visit Have you been in the hospital since your No No No last visit? Has dressing in place as prescribed Yes Yes Yes Has compression in place as prescribed Yes Yes No Has offloadiing in place as prescribed Yes N/A Yes Experienced any changes in pain level or No No No management Left Footwear Removable Cast Surgical Shoe Walker/Walking with pressure Boot relief insole Right Footwear Regular Shoe Pain Scale: 0-10 Numeric Is Patient Pain Free? No Yes Yes - Nurse 1 - General Ulcer Measurement Start: 12/17/21 10:53 Freq: Status: Active Protocol: Activity Type Activity Date Activity User E-sign Co-sign Detail Recorded Client Recorded Date Recorded By Document 01/16/22 09:26 RB [id number] 01/16/22 09:36 RB 01/16/22 09:26 Wound Center Nurse 1 #1 left heel cluster -Combined with other wound No -Current Size (cm) - Length 4 -Current Size (cm) - Width 3.4 -Current Size (cm) - Depth 0.4 -Total Square Cm 13.6 -Photo Taken Yes -Tunneling No -Undermining/Tunneling No -Circular Undermining No -Exudate Amt Large -Exudate Type Serosanguineous -Wound Margin Thickened -Granulation Amt Medium (34-66%) -Granulation Quality [place] -Slough/Fibrin Yes -Necrosis Amt Medium (34-66%) -Necrotic Tissue Type Adherent Slough -Structure Exposed N/A -Texture (Margaret-wound Skin Appearance) Callus -Moisture (Margaret-wound Skin Appearance) Assessed -Color (Margaret-wound Skin Appearance) Assessed -Temperature (Margaret-wound Skin No Abnormality Appearance) (Pt Warm) -Tenderness on Palpation (Margaret-wound No Skin Appearance) -Ulcer Cleansing Wound Cleanser -Foul Odor after Cleansing No -Anesthetic Used 5% Lidocaine Gel WC - Nurse 2 - General Ulcer CM Notes Start: 12/17/21 10:53 Freq: Status: Active Protocol: Activity Type Activity Date Activity User E-sign Co-sign Detail Recorded Client Recorded Date Recorded By Document 01/16/22 09:42 DANIEL [id number] 01/16/22 09:52 DANIEL 01/16/22 09:42 Wound Center Nurse 2 -Time 09:43 -Correct Patient Yes -Correct Side, Site, Position Yes -Correct Procedure Yes -Procedure Performed Yes -Type of Procedure Debridement -Clinical Debridement Subcutaneous -Tissue Removed Subcutaneous -Post Debridement (cm) - Length 4 -Post Debridement (cm) - Width 3.5 -Post Debridement (cm) - Depth 0.4 -Total Square (Post) (cm) 14.0 -Area of Debridement (cm) - Length 4 -Area of Debridement (cm) - Width 3.5 -Total Square (Area) (cm) 14.0 -Tunneling No -Undermining/Tunneling No -Circular Undermining No -Wound/Ulcer Outcome Not Healed -Ulcer Cleansing Rinsed/ Irrigated with Saline -Foul Odor after Cleansing No -Bioengineered Tissue Yes -Type of Bioengineered Tissue Theraskin -Expiration Date 12/26/24 -Product Lot Number [id number] -Percent Used 100 -Lot number of Saline Used [id number] -Bleeding Controlled with Pressure -Treatment Response Procedure Tolerated Well -Offloading Yes -Type of Offloading Camwalker -Assistive Device(s) Wheelchair -Debridement - Subq, 1st 20sq cm No -Apply Skin Sub - 1st 25 sq cm - Feet 1 -Theraskin (per sq cm) 6 Pain Scale: 0-10 Numeric Is Patient Pain Free? Yes WC - Nurse 3 - General Ulcer D/C NN Start: 12/17/21 10:53 Freq: Status: Active Protocol: Activity Type Activity Date Activity User E-sign Co-sign Detail Recorded Client Recorded Date Recorded By Document 01/14/22 12:09 AK [id number] 01/14/22 12:11 AK Document 01/15/22 13:13 AK [id number] 01/15/22 13:20 AK Document 01/16/22 10:13 DL [id number] 01/16/22 10:15 DL 01/14/22 01/15/22 01/16/22 12:09 13:13 10:13 Vital Signs Temperature (97.8 F-99.1 F) 97.2 F L 97.9 F Temperature Source Temporal Temporal Pulse Rate (60-100) 70 Pulse Location Monitor Blood Pressure (90/60-120/80) 133/54 H Blood Pressure Mean (mm Hg) 80 Source Monitor Pain Scale: 0-10 Numeric Is Patient Pain Free? No Yes Yes Wound Care Nurse 3 #1 left heel cluster -Foul Odor after Cleansing No -Primary Dressing Applied Aquacel AG 4x4 Optilok 6.5x10 -Other Dressing 3ABD ABD Epifix/ superabsorber -Primary Dressing Covered/Secured with Dry Gauze & Dry Gauze & Roll Gauze, Roll Gauze, Secured with Secured with Tape Tape -Other Covering ABD -Aquacel AG 4x4 0 -Optilok 6.5x10 1 Left -Lotion applied to leg before No No compression wrap -Compression Wrap Kevin Wrap Kevin Wrap Kevin Wrap Treatment Response Procedure Tolerated Well WC - Visit Discharge Discharge Condition Stable Stable Ambulatory Status Wheelchair Wheelchair Transportation Private Auto Private Auto Medication Reconcilliation completed & Yes provided to patient/care provider Clinical Summary of Care Provided Yes Notes: Pt has HBO tx after appt today Facility Type Home Health Orders Sent Yes Assessment/Plan Assessment/Plan (1) Osteomyelitis: CODE(S): M86.9 - Osteomyelitis, unspecified (2) Foot osteomyelitis: CODE(S): M86.9 - Osteomyelitis, unspecified QUALIFIERS: Osteomyelitis type: other acute Laterality: left Qualified Code(s): M86.172 - Other acute osteomyelitis, left ankle and foot (3) Chronic ulcer of left foot with necrosis of bone: CODE(S): L97.524 - Non-pressure chronic ulcer of other part of left foot with necrosis of bone (4) Type 2 diabetes mellitus with diabetic polyneuropathy: CODE(S): E11.42 - Type 2 diabetes mellitus with diabetic polyneuropathy QUALIFIERS: Diabetes mellitus adjunct faculty for medical terminology insulin use: with custodial use Qualified Code(s): E11.42 - Type 2 diabetes mellitus with diabetic polyneuropathy; Z79.4 - long term care phlebotomist (current) use of insulin (5) Diabetic foot ulcer: CODE(S): E11.621 - Type 2 diabetes mellitus with foot ulcer; L97.509 - Non-pressure chronic ulcer of other part of unspecified foot with unspecified severity QUALIFIERS: Diabetic foot ulcer location: heel Diabetes mellitus type: type 2 Laterality: left Non-pressure ulcer stage: with fat layer exposed Qualified Code(s): E11.621 - Type 2 diabetes mellitus with foot ulcer; L97.422 - Non-pressure chronic ulcer of left heel and midfoot with fat layer exposed (6) Bilateral edema of lower extremity: CODE(S): R60.0 - Localized edema PLAN: Plan The patient tolerated hyperbaric oxygen therapy well which will be continued as per his medical plan. We have applied for 20 more treatments on his plan for hyperbaric chamber treatments
== END 2022-01-16 23:59 | disposition home or self-care (01) ==
LOC: WC 09:15
PROVIDERS: Referring Provider Podiatrist Foot & Ankle Surgery; Visit Provider Podiatrist
DX: E11.621 Type 2 diabetes mellitus with foot ulcer (principal); L97.424 Non-pressure chronic ulcer of left heel and midfoot with necrosis of bone; L97.422 Non-pressure chronic ulcer of left heel and midfoot with fat layer exposed; M86.172 Other acute osteomyelitis, left ankle and foot; E11.42 Type 2 diabetes mellitus with diabetic polyneuropathy; E11.69 Type 2 diabetes mellitus with other specified complication; Z79.4 Long term (current) use of insulin; Z86.718 Personal history of other venous thrombosis and embolism; R60.0 Localized edema; M79.672 Pain in left foot; R26.2 Difficulty in walking, not elsewhere classified; B35.1 Tinea unguium; G60.8 Other hereditary and idiopathic neuropathies; Z86.16 Personal history of COVID-19; M79.89 Other specified soft tissue disorders
CPT/HCPCS: 11042; 15275; 29581; 82962; 99183; 99212; 99213; Q4121; G0277; G0463

== ENCOUNTER 2022-02-15 09:00 | Outpatient (RCR) | payer MEDICARE, BC, SELFPAY ==
[2022-01-17 00:26] VITALS: BP 128/50; PULSE 60; RESP 18; TEMP 36.1; BMI 33.7
[2022-01-17 10:10] LABS: Bedside Glucose 184 mg/dL (74-106)
[2022-01-17 12:26] LABS: Bedside Glucose 150 mg/dL (74-106)
--- NOTE | 2022-01-17 13:45 | PCM.HBO.PN ---
History of Present Illness Date of Service: 01/17/22 Chief Complaint: Osteomyelitis and chronic delayed healing ulcer, left foot History of Wound: The patient presented for a chronic, non-healing wound to left heel with osteomyelitis. A limb and life-threatening infection required emergent surgical intervention on 05-29-2021. 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 He denies fever, chill, nausea, vomiting, pain, odor, redness today. He is keeping weight off of his foot. He continues to take antibiotics as advised and is also undergoing hyperbaric oxygen therapy treatments. He continues on blood thinner due to his deep venous thrombosis and his leg swelling is starting to reduce. He had an application of TheraSkin last week. Progress of Wound: Today represents the nd session of 30 planned sessions. Hyperbaric oxygen therapy was administered as per the facility's protocol.? Hyperbaric oxygen therapy was administered at 2 TOMASZ for 90 minutes with no air breaks.? The patient tolerated hyperbaric oxygen therapy well, without complaints or complications.? Upon emergence from the hyperbaric chamber, the patient's vital signs remained stable.? He was discharged in good condition. Subjective Subjective No new concerns reported. Objective Data Objective Data Vital Signs: Vital Signs Temp Pulse Resp BP 97 F L 60 18 128/50 H 01/17/22 00:26 01/17/22 00:26 01/17/22 00:26 01/17/22 00:26 Body Mass Index (BMI) 33.7 Lab / Micro Data Labs: Laboratory Results - last 24 hr 01/17/22 09:51: POC Glucose 184 H 01/17/22 12:07: POC Glucose 150 H Exam Physical Exam Const alert, oriented x3 and no apparent distress General Appearance: cooperative HEENT normocephalic Eyes Eyes Narrative: Bilateral ear tubes in place. Resp normal respiratory effort and no use of accessory muscles Auscultation: wheezes scattered wheezes and throughout Psych affect normal Charges/Coding Wound Center CF Procedures HBO Supervision: [id number] Hyperbaric Oxygen; supervision Assessment/Plan Assessment/Plan (1) Other acute osteomyelitis, left ankle and foot: CODE(S): M86.172 - Other acute osteomyelitis, left ankle and foot (2) Osteomyelitis: CODE(S): M86.9 - Osteomyelitis, unspecified (3) Foot osteomyelitis: CODE(S): M86.9 - Osteomyelitis, unspecified QUALIFIERS: Osteomyelitis type: other acute Laterality: left Qualified Code(s): M86.172 - Other acute osteomyelitis, left ankle and foot (4) Chronic ulcer of left foot with necrosis of bone: CODE(S): L97.524 - Non-pressure chronic ulcer of other part of left foot with necrosis of bone (5) Type 2 diabetes mellitus with diabetic polyneuropathy: CODE(S): E11.42 - Type 2 diabetes mellitus with diabetic polyneuropathy QUALIFIERS: Diabetes mellitus vermin exterminator insulin use: with long-term use Qualified Code(s): E11.42 - Type 2 diabetes mellitus with diabetic polyneuropathy; Z79.4 - parts counterman (current) use of insulin (6) Diabetic foot ulcer: CODE(S): E11.621 - Type 2 diabetes mellitus with foot ulcer; L97.509 - Non-pressure chronic ulcer of other part of unspecified foot with unspecified severity QUALIFIERS: Diabetic foot ulcer location: heel Diabetes mellitus type: type 2 Laterality: left Non-pressure ulcer stage: with fat layer exposed Qualified Code(s): E11.621 - Type 2 diabetes mellitus with foot ulcer; L97.422 - Non-pressure chronic ulcer of left heel and midfoot with fat layer exposed PLAN: Plan The patient tolerated hyperbaric oxygen therapy well which will be continued as per his medical plan. This note was generated with [employer] software. It may contain incorrect words, spelling, and punctuation that were not noted in checking the note before signing.
[2022-01-18 08:56] LABS: Bedside Glucose 164 mg/dL (74-106)
[2022-01-18 11:15] LABS: Bedside Glucose 149 mg/dL (74-106)
[2022-01-18 11:29] VITALS: BP 139/61; PULSE 59; TEMP 36.1; BMI 33.7
--- NOTE | 2022-01-18 13:55 | PCM.HBO.PN ---
History of Present Illness Date of Service: 01/18/22 Chief Complaint: Osteomyelitis and chronic delayed healing ulcer, left foot History of Wound: The patient presented for a chronic, non-healing wound to left heel with osteomyelitis. A limb and life-threatening infection required emergent surgical intervention on 05-29-2021. 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 He denies fever, chill, nausea, vomiting, pain, odor, redness today. He is keeping weight off of his foot. He continues to take antibiotics as advised and is also undergoing hyperbaric oxygen therapy treatments. He continues on blood thinner due to his deep venous thrombosis and his leg swelling is starting to reduce. He had an application of TheraSkin last week. Progress of Wound: Today represents the 24th session of 30 planned sessions. Hyperbaric oxygen therapy was administered as per the facility's protocol.? Hyperbaric oxygen therapy was administered at 2 TOMASZ for 90 minutes with no air breaks.? The patient tolerated hyperbaric oxygen therapy well, without complaints or complications.? Upon emergence from the hyperbaric chamber, the patient's vital signs remained stable.? He was discharged in good condition. Objective Data Objective Data Vital Signs: Vital Signs Temp Pulse Resp BP 97 F L 59 L 18 139/61 H 01/18/22 11:29 01/18/22 11:29 01/17/22 00:26 01/18/22 11:29 Body Mass Index (BMI) 33.7 Lab / Micro Data Labs: Laboratory Results - last 24 hr 01/18/22 08:35: POC Glucose 164 H 01/18/22 10:55: POC Glucose 149 H Exam Physical Exam Const alert, oriented x3 and no apparent distress General Appearance: cooperative HEENT normocephalic Eyes Eyes Narrative: Bilateral ear tubes in place. Resp normal respiratory effort and no use of accessory muscles Auscultation: wheezes scattered wheezes and throughout Psych affect normal Nursing Assessment and Debridement Post-Debridement Measurements and Additional Note: Post-Debridement Measurements/Treatment WC - Nurse 1 - General Ulcer Assessment Start: 01/17/22 14:15 Freq: Status: Active Protocol: JANESSA.LOWEXT Activity Type Activity Date Activity User E-sign Co-sign Detail Recorded Client Recorded Date Recorded By Document 01/18/22 11:29 DAVID [id number] 01/18/22 11:37 DAVID 01/18/22 11:29 - Today's Visit Information Type of service Nurse-only Visit Arrival Mode Wheelchair Patient Identification Verified (Name & Yes ) Height and Weight Body Mass Index (BMI) 33.7 BMI Classification Obese Vital Signs Temperature (97.8 F-99.1 F) 97 F L Temperature Source Temporal Pulse Rate (60-100) 59 L Pulse Location Monitor Blood Pressure (90/60-120/80) 139/61 H Blood Pressure Mean (mm Hg) 87 Source Monitor History Since Last Visit- (Skip if this is Patient's initial visit) Have you changed medications since your No last visit? Any new allergies or adverse reactions No Had a fall/change in ADL's that may No increase risk of falls Signs or symptoms of abuse and/or No neglect since last visit Have you been in the hospital since your No last visit? Has dressing in place as prescribed Yes Has compression in place as prescribed Yes Has offloadiing in place as prescribed N/A Experienced any changes in pain level or No management Left Footwear Removable Cast Walker/Walking Boot Right Footwear Regular Shoe Pain Scale: 0-10 Numeric Is Patient Pain Free? Yes - Nurse 3 - General Ulcer D/C NN Start: 01/17/22 14:15 Freq: Status: Active Protocol: Activity Type Activity Date Activity User E-sign Co-sign Detail Recorded Client Recorded Date Recorded By Document 01/17/22 14:15 [place] [id number] 01/17/22 15:21 [place] Document 01/18/22 11:29 [place] [id number] 01/18/22 11:37 [place] 01/17/22 01/18/22 14:15 11:29 Wound Care Nurse 3 #1 left heel cluster -Primary Dressing Applied Promogran Payton Matter -Primary Dressing Covered/Secured with Dry Gauze & Roll Gauze, Secured with Tape -Promogran Payton Matter 0 Left -Compression Wrap Kevin Wrap Vital Signs Temperature (97.8 F-99.1 F) 97 F L Temperature Source Temporal Pulse Rate (60-100) 59 L Pulse Location Monitor Blood Pressure (90/60-120/80) 139/61 H Blood Pressure Mean (mm Hg) 87 Source Monitor Pain Scale: 0-10 Numeric Is Patient Pain Free? Yes Yes WC - Visit Discharge Discharge Condition Stable Ambulatory Status Wheelchair Transportation Private Auto Medication Reconcilliation completed & Yes provided to patient/care provider Clinical Summary of Care Provided Yes Assessment/Plan Assessment/Plan (1) Other acute osteomyelitis, left ankle and foot: CODE(S): M86.172 - Other acute osteomyelitis, left ankle and foot (2) Osteomyelitis: CODE(S): M86.9 - Osteomyelitis, unspecified (3) Foot osteomyelitis: CODE(S): M86.9 - Osteomyelitis, unspecified QUALIFIERS: Osteomyelitis type: other acute Laterality: left Qualified Code(s): M86.172 - Other acute osteomyelitis, left ankle and foot (4) Chronic ulcer of left foot with necrosis of bone: CODE(S): L97.524 - Non-pressure chronic ulcer of other part of left foot with necrosis of bone (5) Type 2 diabetes mellitus with diabetic polyneuropathy: CODE(S): E11.42 - Type 2 diabetes mellitus with diabetic polyneuropathy QUALIFIERS: Diabetes mellitus mcc insulin use: with mcc use Qualified Code(s): E11.42 - Type 2 diabetes mellitus with diabetic polyneuropathy; Z79.4 - assisted (current) use of insulin (6) Diabetic foot ulcer: CODE(S): E11.621 - Type 2 diabetes mellitus with foot ulcer; L97.509 - Non-pressure chronic ulcer of other part of unspecified foot with unspecified severity QUALIFIERS: Diabetic foot ulcer location: heel Diabetes mellitus type: type 2 Laterality: left Non-pressure ulcer stage: with fat layer exposed Qualified Code(s): E11.621 - Type 2 diabetes mellitus with foot ulcer; L97.422 - Non-pressure chronic ulcer of left heel and midfoot with fat layer exposed PLAN: Plan The patient tolerated hyperbaric oxygen therapy well which will be continued as per his medical plan. This note was generated with Epizymeation software. It may contain incorrect words, spelling, and punctuation that were not noted in checking the note before signing.
[2022-01-23 09:25] VITALS: BP 121/57; PULSE 64; RESP 20; TEMP 36.4; BMI 33.7
[2022-01-23 10:31] LABS: Bedside Glucose 163 mg/dL (74-106)
[2022-01-23 10:47] VITALS: BP 121/57; BP 133/86; PULSE 62; PULSE 64; RESP 19; RESP 20; TEMP 36.3
--- NOTE | 2022-01-23 11:38 | PCM.WC.PN ---
History of Present Illness Date of Service: 01/23/22 Chief Complaint: Osteomyelitis and chronic delayed healing ulcer, left foot History of Wound: The patient presented for a chronic, non-healing wound to left heel with osteomyelitis. A limb and life-threatening infection required emergent surgical intervention on 05-29-2021. 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 He denies fever, chill, nausea, vomiting, pain, odor, redness today. He is keeping weight off of his foot. He continues to take antibiotics as advised and is also undergoing hyperbaric oxygen therapy treatments. He continues on blood thinner due to his deep venous thrombosis and his leg swelling is starting to reduce; scheduled to complete this in about a month. He had an application of TheraSkin last week. Progress of Wound: stable; improved base Objective Data Objective Data Vital Signs: Vital Signs Temp Pulse Resp BP 97.3 F L 64 20 H 121/57 H 01/23/22 10:47 01/23/22 10:47 01/23/22 10:47 01/23/22 10:47 Body Mass Index (BMI) 33.7 Lab / Micro Data Labs: Laboratory Results - last 24 hr 01/23/22 10:07: POC Glucose 163 H Physical Exam Narrative Const alert and no apparent distress General Appearance: cooperative and comfortable Extremity There is diffuse decreased left foot/ankle and leg swelling. Healed arch with full epithelialization and good skin remodeling. No longer bone probing noted to left heel. There is peripheral granulation tissue and minimal peripheral callus also. There is no streaking or odor, compartments remain soft to palpate, there is no fluctuance or bogginess on palpation, no drainage, no visible abscess, no cellulitis, no blistering present. Hematogenous / serosanguineous drainage only upon debridement. Improved healthy granular tissue noted. Periwound moisture and maceration has resolved. Lack of normal epicritic sensation via light touch. Pain decreased with manipulation and heel compression consistent prior visits normal capillary refill, no acute ischemic skin changes noted, normal temperature bilateral. Const oriented x3 General Appearance: cooperative Skin Skin Narrative: Wounds left heel osteomyelitis Wound Narrative: Neuro Neuro Narrative: Debridement Note Debridement Note Wound debrided: left heel Laterality: Left Wound Grade/Stage: 3 Type of Debridement: Excisional debridement Anesthesia Used: 4% Lidocaine Solution Depth: in the subcutaneous layer Percentage of wound debrided: 100 Instrument Used: #15 blade Tissue Removed: fibrous, devitalized subcutaneous, biofilm, slough Severity: Fat Layer Exposed Amount of bleeding with debridement: Mild Bleeding Controlled with: Pressure Patient tolerated procedure: Patient tolerated procedure well Post-Debridement Measurements and Additional Note: Post-Debridement Measurements/Treatment WC - Nurse 1 - General Ulcer Assessment Start: 01/17/22 14:15 Freq: Status: Active Protocol: EVELYN Activity Type Activity Date Activity User E-sign Co-sign Detail Recorded Client Recorded Date Recorded By Document 01/18/22 11:29 [place] [id number] 01/18/22 11:37 [place] Document 01/23/22 09:25 DL [id number] 01/23/22 09:33 DL 01/18/22 01/23/22 11:29 09:25 WC - Today's Visit Information Type of service Nurse-only Follow-up Visit Visit (Physician/POLICE RECORDS CLERK ) Arrival Mode Wheelchair Wheelchair Transfer Assistance Manual,None Patient Identification Verified (Name & Yes Yes ) Patient Requires Transmission-Based No Precautions Finger Stick Blood Sugar(mg/dl) (if 160 indicated): Blood Sugar Stated by Patient Height and Weight Body Mass Index (BMI) 33.7 33.7 BMI Classification Obese Obese Vital Signs Temperature (97.8 F-99.1 F) 97 F L 97.6 F L Temperature Source Temporal Temporal Pulse Rate (60-100) 59 L 64 Pulse Location Monitor Monitor Respiratory Rate (12-18) 20 H Respiratory rate source Observation Blood Pressure (90/60-120/80) 139/61 H 121/57 H Blood Pressure Mean (mm Hg) 87 78 Source Monitor Monitor History Since Last Visit- (Skip if this is Patient's initial visit) Have you changed medications since your No No last visit? Any new allergies or adverse reactions No No Had a fall/change in ADL's that may No No increase risk of falls Signs or symptoms of abuse and/or No No neglect since last visit Have you been in the hospital since your No No last visit? Has dressing in place as prescribed Yes Yes Has compression in place as prescribed Yes Yes Has offloadiing in place as prescribed N/A Yes Experienced any changes in pain level or No No management Left Footwear Removable Cast Surgical Shoe Walker/Walking with pressure Boot relief insole Right Footwear Regular Shoe Pain Scale: 0-10 Numeric Is Patient Pain Free? Yes Yes - Nurse 1 - General Ulcer Measurement Start: 01/17/22 14:15 Freq: Status: Active Protocol: Activity Type Activity Date Activity User E-sign Co-sign Detail Recorded Client Recorded Date Recorded By Document 01/23/22 09:25 JULIO C [id number] 01/23/22 09:33 JULIO C 01/23/22 09:25 Wound Center Nurse 1 #1 left heel cluster -Current Size (cm) - Length 4 -Current Size (cm) - Width 3.8 -Current Size (cm) - Depth 1 -Total Square Cm 15.2 -Photo Taken No -Exudate Amt Medium -Exudate Type Serosanguineous -Wound Margin Thickened -Granulation Amt Medium (34-66%) -Granulation Quality Red -Necrosis Amt Medium (34-66%) -Necrotic Tissue Type Adherent Slough -Structure Exposed N/A -Texture (Margaret-wound Skin Appearance) Scarring -Moisture (Margaret-wound Skin Appearance) Maceration -Color (Margaret-wound Skin Appearance) No Abnormality -Temperature (Margaret-wound Skin No Abnormality Appearance) (Pt Warm) -Ulcer Cleansing Soap and Water -Foul Odor after Cleansing Yes -Anesthetic Used 5% Lidocaine Gel WC - Nurse 2 - General Ulcer CM Notes Start: 01/17/22 14:15 Freq: Status: Active Protocol: Activity Type Activity Date Activity User E-sign Co-sign Detail Recorded Client Recorded Date Recorded By Document 01/23/22 09:39 DANIEL [id number] 01/23/22 09:48 DANIEL 01/23/22 09:39 Wound Center Nurse 2 -Time 09:40 -Correct Patient Yes -Correct Side, Site, Position Yes -Correct Procedure Yes -Procedure Performed Yes -Type of Procedure Debridement -Clinical Debridement Subcutaneous -Tissue Removed Subcutaneous -Post Debridement (cm) - Length 4.0 -Post Debridement (cm) - Width 3.8 -Post Debridement (cm) - Depth 0.5 -Total Square (Post) (cm) 15.20 -Area of Debridement (cm) - Length 4.0 -Area of Debridement (cm) - Width 3.8 -Total Square (Area) (cm) 15.20 -Tunneling No -Undermining/Tunneling No -Circular Undermining No -Wound/Ulcer Outcome Not Healed -Ulcer Cleansing Rinsed/ Irrigated with Saline -Foul Odor after Cleansing No -Bioengineered Tissue Yes -Type of Bioengineered Tissue Theraskin -Expiration Date 11/25/24 -Product Lot Number [id number] -Percent Used 100 -Lot number of Saline Used [id number] -Offloading Yes -Type of Offloading Camwalker -Assistive Device(s) Wheelchair -Debridement - Subq, 1st 20sq cm No -Apply Skin Sub - 1st 25 sq cm - Feet 1 -Theraskin (per sq cm) 13 Pain Scale: 0-10 Numeric Is Patient Pain Free? Yes - Nurse 3 - General Ulcer D/C NN Start: 01/17/22 14:15 Freq: Status: Active Protocol: Activity Type Activity Date Activity User E-sign Co-sign Detail Recorded Client Recorded Date Recorded By Document 01/17/22 14:15 [place] [id number] 01/17/22 15:21 AK Document 01/18/22 11:29 AK [id number] 01/18/22 11:37 AK Document 01/23/22 10:07 RB Desktop 01/23/22 10:08 RB Edit Result 01/23/22 10:07 RB (1) Desktop 01/23/22 10:08 RB (1) Ambulatory Status Ambulatory => Wheelchair 01/17/22 01/18/22 01/23/22 14:15 11:29 10:07 Wound Care Nurse 3 #1 left heel cluster -Primary Dressing Applied Promogran Optilok 6.5x10 Payton Matter -Primary Dressing Covered/Secured with Dry Gauze & Dry Gauze,Dry Roll Gauze, Gauze & Roll Secured with Gauze,Secured Tape with Tape -Optilok 6.5x10 1 -Promogran Payton Matter 0 Left -Compression Wrap Kevin Wrap -Other kevin Treatment Response Procedure Tolerated Well Vital Signs Temperature (97.8 F-99.1 F) 97 F L Temperature Source Temporal Pulse Rate (60-100) 59 L Pulse Location Monitor Blood Pressure (90/60-120/80) 139/61 H Blood Pressure Mean (mm Hg) 87 Source Monitor Pain Scale: 0-10 Numeric Is Patient Pain Free? Yes Yes Yes WC - Visit Discharge Discharge Condition Stable Stable Ambulatory Status Wheelchair Wheelchair Transportation Private Auto Private Auto Medication Reconcilliation completed & Yes No provided to patient/care provider Clinical Summary of Care Provided Yes Yes Assessment/Plan Assessment/Plan (1) Other acute osteomyelitis, left ankle and foot: CODE(S): M86.172 - Other acute osteomyelitis, left ankle and foot (2) Osteomyelitis: CODE(S): M86.9 - Osteomyelitis, unspecified (3) Foot osteomyelitis: CODE(S): M86.9 - Osteomyelitis, unspecified QUALIFIERS: Osteomyelitis type: other acute Laterality: left Qualified Code(s): M86.172 - Other acute osteomyelitis, left ankle and foot (4) Chronic ulcer of left foot with necrosis of bone: CODE(S): L97.524 - Non-pressure chronic ulcer of other part of left foot with necrosis of bone (5) Type 2 diabetes mellitus with diabetic polyneuropathy: CODE(S): E11.42 - Type 2 diabetes mellitus with diabetic polyneuropathy QUALIFIERS: Diabetes mellitus senior care insulin use: with forming fixer use Qualified Code(s): E11.42 - Type 2 diabetes mellitus with diabetic polyneuropathy; Z79.4 - sales representative canvas products (current) use of insulin (6) Diabetic foot ulcer: CODE(S): E11.621 - Type 2 diabetes mellitus with foot ulcer; L97.509 - Non-pressure chronic ulcer of other part of unspecified foot with unspecified severity QUALIFIERS: Diabetic foot ulcer location: heel Diabetes mellitus type: type 2 Laterality: left Non-pressure ulcer stage: with fat layer exposed Qualified Code(s): E11.621 - Type 2 diabetes mellitus with foot ulcer; L97.422 - Non-pressure chronic ulcer of left heel and midfoot with fat layer exposed (7) Bilateral edema of lower extremity: CODE(S): R60.0 - Localized edema (8) Difficulty in walking: CODE(S): R26.2 - Difficulty in walking, not elsewhere classified (9) Left foot pain: CODE(S): M79.672 - Pain in left foot (10) Deep vein thrombosis (DVT) of left lower extremity: CODE(S): I82.402 - Acute embolism and thrombosis of unspecified deep veins of left lower extremity PLAN: Plan ?? This patient was seen and examined.? I reviewed and discussed his case.? Debridement was performed as noted in the clinical nursing panel. Dressing recommendation: A secondary dressing with a super absorption component was applied after advanced wound product.? Nursing staff will check the need to replace secondary dressings when he comes daily for hyperbaric oxygen therapy. Advance wound options: He has a status change diagnosis of osteomyelitis.? I recommend hyperbaric oxygen therapy if he is medically cleared to undergo such treatment.? He reports he is available to come in 5 days a week for couple hours each day and he has anticipated reliable transportation.? his EF is 65%.? Receptionist/Telephone Operator clearance was obtained and was advised to continue with hyperbaric oxygen therapy sessions and is doing well so far.? I recommend continuation due to the improvement in the quality of the base of his ulcer.? I also recommend advanced wound healing product such as TheraSkin to reduce healing time, prevent limb loss, and promote chronic ulcer stimulation.? He was approved for this and verbal consent was obtained today.? This was applied according to standard protocol and was secured with medical glue, wound veil, Steri-Strips.?100% of the product was utilized. He was advised keep this clean and intact until next week.? He tolerated this application well. Offloading: To maintain a strict nonweightbearing status to the ulcer to the foot. ? To use assistive walking device as well. He has a cam walker.? I recommend considering application of total contact casting once he is done being treated for his deep venous thrombosis with estimated remaining time from about 1 month. Infection management: This culture results were reviewed with MRSA, Enterobacter, Enterococcus, and corynebacteria.? ? ? He has osteomyelitis which was confirmed with bone biopsy sent to microbiology and pathology.? It appears an extended course of linezolid is appropriate per infectious disease recommendation orally.? This was discussed previously with ID specialist and the patient. Lab trends will be followed weekly. Patient relates he had follow-up appointment with his primary care provider, Priyanka Brown, and relates that she did not change any medication and stated he was doing okay.? PCP is leaving the diabetes management up to his vice president of talent management, Dr. Mykel Barraza.? He was able to follow-up and recommendations were updated.? ? An updated hemoglobin A1c order was provided because we are unable to obtain this in a timely manner from the primary care physician's office. this was 8.6%. To follow up with pain management.? It is noted he is already on gabapentin, Percocet, and Tylenol.? I do not recommend additional narcotic pain medication.? This appears to be controlled at this time. Edema management: Medical management per primary care. To reduce salt in diet. Total contact cast will also aide in edema reduction if this considered upon continued foot stability and resolution of infection status.? I only recommend reapplication after he has completed his acute deep venous thrombosis treatment. Arterial studies were reviewed.? Showing likely adequate perfusion for healing.? Right LAI is 0.99 and left 1.18.? Right toe brachial index 0.76 and left 0.71.? Referral to Dr. Campos for potential venous and arterial intervention was provided today.? He went for consultationon 04-11-21. Will recheck duplex to make sure normal posterior tibial flow into the area of the wound. normal prior LAI noted. Host factors: His multiple comorbidities are noted including diabetes and smoking history. Also recommend improvement in nutritional status which involves taking in adequate protein and also focusing on eating 5-10 whole foods daily. Gait abnormality/walking difficulty: I recommend PT and OT intervention with his home health agency.? A referral was provided previously.? He is at risk for falling.? He is fragile and has demonstrated progressive deterioration. All questions answered.? He understands below-knee amputation is an option as well if he cannot keep pressure off the site, if pain becomes intolerable, and if he no longer is able to proceed with a comprehensive wound healing plan.? He defers at this time.? This was discussed at length today.? The benefits and indications of a below-knee amputation were reviewed.? He would like to consider a referral to a doctor in the same healthcare system he attends in the [facility]. Patient to follow up in 1 week or call sooner if status worsening or if questions. ? This note was generated with [employer] software.? It may contain incorrect words, spelling, and punctuation that were not noted in checking the note before signing.
[2022-01-23 12:31] LABS: Bedside Glucose 172 mg/dL (74-106)
--- NOTE | 2022-01-23 12:43 | HBO.PN.PCM_ITS ---
History of Present Illness Date of Service: 01/23/22 Chief Complaint: Osteomyelitis and chronic delayed healing ulcer, left foot History of Wound: The patient presented for a chronic, non-healing wound to left heel with osteomyelitis. A limb and life-threatening infection required emergent surgical intervention on 05-29-2021. 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 He denies fever, chill, nausea, vomiting, pain, odor, redness today. He is keeping weight off of his foot. He continues to take antibiotics as advised and is also undergoing hyperbaric oxygen therapy treatments. He continues on blood thinner due to his deep venous thrombosis and his leg swelling is starting to reduce; scheduled to complete this in about a month. He had an application of TheraSkin last week. Progress of Wound: Patient received #25 of 30 treatments for his HBO with good vital signs on admission and discharge Subjective Subjective Patient has no concerns Objective Data Objective Data Patient will be ordered 20 more treatments after he finishes these last 5 patient is agreeable to plan Patient is having good healing to his left ankle and foot Vital Signs: Vital Signs Temp Pulse Resp BP 97.3 F L 64 20 H 121/57 H 01/23/22 10:47 01/23/22 10:47 01/23/22 10:47 01/23/22 10:47 Body Mass Index (BMI) 33.7 Lab / Micro Data Labs: Laboratory Results - last 24 hr 01/23/22 10:07: POC Glucose 163 H 01/23/22 12:11: POC Glucose 172 H Exam Physical Exam Const alert, oriented x3 and no apparent distress General Appearance: cooperative HEENT normocephalic Eyes Eyes Narrative: Bilateral ear tubes in place. Resp normal respiratory effort and no use of accessory muscles Auscultation: wheezes scattered wheezes and throughout Cardio regular rate and regular rhythm Psych affect normal Nursing Assessment and Debridement Post-Debridement Measurements and Additional Note: Post-Debridement Measurements/Treatment WC - Nurse 1 - General Ulcer Assessment Start: 01/17/22 14:15 Freq: Status: Active Protocol: [email or web address] Activity Type Activity Date Activity User E-sign Co-sign Detail Recorded Client Recorded Date Recorded By Document 01/23/22 09:25 DL [id number] 01/23/22 09:33 DL 01/23/22 09:25 WC - Today's Visit Information Type of service Follow-up Visit (Physician/TACK CLEANER ) Arrival Mode Wheelchair Transfer Assistance Manual,None Patient Identification Verified (Name & Yes ) Patient Requires Transmission-Based No Precautions Finger Stick Blood Sugar(mg/dl) (if 160 indicated): Blood Sugar Stated by Patient Height and Weight Body Mass Index (BMI) 33.7 BMI Classification Obese Vital Signs Temperature (97.8 F-99.1 F) 97.6 F L Temperature Source Temporal Pulse Rate (60-100) 64 Pulse Location Monitor Respiratory Rate (12-18) 20 H Respiratory rate source Observation Blood Pressure (90/60-120/80) 121/57 H Blood Pressure Mean (mm Hg) 78 Source Monitor History Since Last Visit- (Skip if this is Patient's initial visit) Have you changed medications since your No last visit? Any new allergies or adverse reactions No Had a fall/change in ADL's that may No increase risk of falls Signs or symptoms of abuse and/or No neglect since last visit Have you been in the hospital since your No last visit? Has dressing in place as prescribed Yes Has compression in place as prescribed Yes Has offloadiing in place as prescribed Yes Experienced any changes in pain level or No management Left Footwear Surgical Shoe with pressure relief insole Pain Scale: 0-10 Numeric Is Patient Pain Free? Yes - Nurse 1 - General Ulcer Measurement Start: 01/17/22 14:15 Freq: Status: Active Protocol: Activity Type Activity Date Activity User E-sign Co-sign Detail Recorded Client Recorded Date Recorded By Document 01/23/22 09:25 [id number] 01/23/22 09:33 DL 01/23/22 09:25 Wound Center Nurse 1 #1 left heel cluster -Current Size (cm) - Length 4 -Current Size (cm) - Width 3.8 -Current Size (cm) - Depth 1 -Total Square Cm 15.2 -Photo Taken No -Exudate Amt Medium -Exudate Type Serosanguineous -Wound Margin Thickened -Granulation Amt Medium (34-66%) -Granulation Quality Red -Necrosis Amt Medium (34-66%) -Necrotic Tissue Type Adherent Slough -Structure Exposed N/A -Texture (Margaret-wound Skin Appearance) Scarring -Moisture (Margaret-wound Skin Appearance) Maceration -Color (Margaret-wound Skin Appearance) No Abnormality -Temperature (Margaret-wound Skin No Abnormality Appearance) (Pt Warm) -Ulcer Cleansing Soap and Water -Foul Odor after Cleansing Yes -Anesthetic Used 5% Lidocaine Gel JANESSA - Nurse 2 - General Ulcer CM Notes Start: 01/17/22 14:15 Freq: Status: Active Protocol: Activity Type Activity Date Activity User E-sign Co-sign Detail Recorded Client Recorded Date Recorded By Document 01/23/22 09:39 [id number] 01/23/22 09:48 01/23/22 09:39 Wound Center Nurse 2 -Time 09:40 -Correct Patient Yes -Correct Side, Site, Position Yes -Correct Procedure Yes -Procedure Performed Yes -Type of Procedure Debridement -Clinical Debridement Subcutaneous -Tissue Removed Subcutaneous -Post Debridement (cm) - Length 4.0 -Post Debridement (cm) - Width 3.8 -Post Debridement (cm) - Depth 0.5 -Total Square (Post) (cm) 15.20 -Area of Debridement (cm) - Length 4.0 -Area of Debridement (cm) - Width 3.8 -Total Square (Area) (cm) 15.20 -Tunneling No -Undermining/Tunneling No -Circular Undermining No -Wound/Ulcer Outcome Not Healed -Ulcer Cleansing Rinsed/ Irrigated with Saline -Foul Odor after Cleansing No -Bioengineered Tissue Yes -Type of Bioengineered Tissue Theraskin -Expiration Date 11/25/24 -Product Lot Number [id number] -Percent Used 100 -Lot number of Saline Used [id number] -Offloading Yes -Type of Offloading Camwalker -Assistive Device(s) Wheelchair -Debridement - Subq, 1st 20sq cm No -Apply Skin Sub - 1st 25 sq cm - Feet 1 -Theraskin (per sq cm) 13 Pain Scale: 0-10 Numeric Is Patient Pain Free? Yes JANESSA - Nurse 3 - General Ulcer D/C NN Start: 01/17/22 14:15 Freq: Status: Active Protocol: Activity Type Activity Date Activity User E-sign Co-sign Detail Recorded Client Recorded Date Recorded By Document 01/23/22 10:07 RB Desktop 01/23/22 10:08 RB 01/23/22 10:07 Wound Care Nurse 3 #1 left heel cluster -Primary Dressing Applied Optilok 6.5x10 -Primary Dressing Covered/Secured with Dry Gauze,Dry Gauze & Roll Gauze,Secured with Tape -Optilok 6.5x10 1 Left -Other aayush Treatment Response Procedure Tolerated Well Pain Scale: 0-10 Numeric Is Patient Pain Free? Yes WC - Visit Discharge Discharge Condition Stable Ambulatory Status Wheelchair Transportation Private Auto Medication Reconcilliation completed & No provided to patient/care provider Clinical Summary of Care Provided Yes Assessment/Plan Assessment/Plan (1) Osteomyelitis: CODE(S): M86.9 - Osteomyelitis, unspecified (2) Foot osteomyelitis: CODE(S): M86.9 - Osteomyelitis, unspecified QUALIFIERS: Osteomyelitis type: other acute Laterality: left Qualified Code(s): M86.172 - Other acute osteomyelitis, left ankle and foot (3) Chronic ulcer of left foot with necrosis of bone: CODE(S): L97.524 - Non-pressure chronic ulcer of other part of left foot with necrosis of bone (4) Type 2 diabetes mellitus with diabetic polyneuropathy: CODE(S): E11.42 - Type 2 diabetes mellitus with diabetic polyneuropathy QUALIFIERS: Diabetes mellitus moth exterminator insulin use: with detention use Qualified Code(s): E11.42 - Type 2 diabetes mellitus with diabetic polyneuropathy; Z79.4 - residential (current) use of insulin (5) Diabetic foot ulcer: CODE(S): E11.621 - Type 2 diabetes mellitus with foot ulcer; L97.509 - Non-pressure chronic ulcer of other part of unspecified foot with unspecified severity QUALIFIERS: Diabetic foot ulcer location: heel Diabetes mellitus type: type 2 Laterality: left Non-pressure ulcer stage: with fat layer exposed Qualified Code(s): E11.621 - Type 2 diabetes mellitus with foot ulcer; L97.422 - Non-pressure chronic ulcer of left heel and midfoot with fat layer exposed (6) Bilateral edema of lower extremity: CODE(S): R60.0 - Localized edema PLAN: Plan The patient tolerated hyperbaric oxygen therapy well which will be continued as per his medical plan. We have applied for 20 more treatments on his plan for hyperbaric chamber treatments
[2022-01-24 09:20] LABS: Bedside Glucose 157 mg/dL (74-106)
[2022-01-24 10:31] VITALS: BP 137/69; BP 147/66; PULSE 52; PULSE 56; RESP 18; RESP 20; TEMP 35.9
[2022-01-24 11:35] LABS: Bedside Glucose 169 mg/dL (74-106)
--- NOTE | 2022-01-24 12:51 | PCM.HBO.PN ---
History of Present Illness Date of Service: 01/24/22 Chief Complaint: Osteomyelitis and chronic delayed healing ulcer, left foot History of Wound: The patient presented for a chronic, non-healing wound to left heel with osteomyelitis. A limb and life-threatening infection required emergent surgical intervention on 05-29-2021. 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 He denies fever, chill, nausea, vomiting, pain, odor, redness today. He is keeping weight off of his foot. He continues to take antibiotics as advised and is also undergoing hyperbaric oxygen therapy treatments. He continues on blood thinner due to his deep venous thrombosis and his leg swelling is starting to reduce; scheduled to complete this in about a month. He had an application of TheraSkin last week. Progress of Wound: Today represents the 26th session of 30 planned sessions. ? Hyperbaric oxygen therapy was administered as per the facility's protocol.? Hyperbaric oxygen therapy was administered for 90 minutes with no air breaks.? The patient tolerated hyperbaric oxygen therapy well, without complaints or complications.? Upon emergence from the hyperbaric chamber, the patient's vital signs remained stable.? He was discharged in good condition. Objective Data Objective Data Vital Signs: Vital Signs Temp Pulse Resp BP 96.6 F L 56 L 18 137/69 H 01/24/22 10:31 01/24/22 10:31 01/24/22 10:31 01/24/22 10:31 Body Mass Index (BMI) 33.7 Lab / Micro Data Labs: Laboratory Results - last 24 hr 01/24/22 09:00: POC Glucose 157 H 01/24/22 11:17: POC Glucose 169 H Exam Physical Exam Const alert, oriented x3 and no apparent distress General Appearance: cooperative HEENT normocephalic Eyes Eyes Narrative: Bilateral ear tubes in place. Resp normal respiratory effort and no use of accessory muscles Psych affect normal Nursing Assessment and Debridement Post-Debridement Measurements and Additional Note: Post-Debridement Measurements/Treatment WC - Nurse 1 - General Ulcer Assessment Start: 01/17/22 14:15 Freq: Status: Active Protocol: [email or web address] Activity Type Activity Date Activity User E-sign Co-sign Detail Recorded Client Recorded Date Recorded By Document 01/23/22 09:25 DL [id number] 01/23/22 09:33 DL 01/23/22 09:25 - Today's Visit Information Type of service Follow-up Visit (Physician/LIPSTICK MOLDER ) Arrival Mode Wheelchair Transfer Assistance Manual,None Patient Identification Verified (Name & Yes ) Patient Requires Transmission-Based No Precautions Finger Stick Blood Sugar(mg/dl) (if 160 indicated): Blood Sugar Stated by Patient Height and Weight Body Mass Index (BMI) 33.7 BMI Classification Obese Vital Signs Temperature (97.8 F-99.1 F) 97.6 F L Temperature Source Temporal Pulse Rate (60-100) 64 Pulse Location Monitor Respiratory Rate (12-18) 20 H Respiratory rate source Observation Blood Pressure (90/60-120/80) 121/57 H Blood Pressure Mean (mm Hg) 78 Source Monitor History Since Last Visit- (Skip if this is Patient's initial visit) Have you changed medications since your No last visit? Any new allergies or adverse reactions No Had a fall/change in ADL's that may No increase risk of falls Signs or symptoms of abuse and/or No neglect since last visit Have you been in the hospital since your No last visit? Has dressing in place as prescribed Yes Has compression in place as prescribed Yes Has offloadiing in place as prescribed Yes Experienced any changes in pain level or No management Left Footwear Surgical Shoe with pressure relief insole Pain Scale: 0-10 Numeric Is Patient Pain Free? Yes - Nurse 1 - General Ulcer Measurement Start: 01/17/22 14:15 Freq: Status: Active Protocol: Activity Type Activity Date Activity User E-sign Co-sign Detail Recorded Client Recorded Date Recorded By Document 01/23/22 09:25 [id number] 01/23/22 09:33 01/23/22 09:25 Wound Center Nurse 1 #1 left heel cluster -Current Size (cm) - Length 4 -Current Size (cm) - Width 3.8 -Current Size (cm) - Depth 1 -Total Square Cm 15.2 -Photo Taken No -Exudate Amt Medium -Exudate Type Serosanguineous -Wound Margin Thickened -Granulation Amt Medium (34-66%) -Granulation Quality Red -Necrosis Amt Medium (34-66%) -Necrotic Tissue Type Adherent Slough -Structure Exposed N/A -Texture (Margaret-wound Skin Appearance) Scarring -Moisture (Margaret-wound Skin Appearance) Maceration -Color (Margaret-wound Skin Appearance) No Abnormality -Temperature (Margaret-wound Skin No Abnormality Appearance) (Pt Warm) -Ulcer Cleansing Soap and Water -Foul Odor after Cleansing Yes -Anesthetic Used 5% Lidocaine Gel WC - Nurse 2 - General Ulcer CM Notes Start: 01/17/22 14:15 Freq: Status: Active Protocol: Activity Type Activity Date Activity User E-sign Co-sign Detail Recorded Client Recorded Date Recorded By Document 01/23/22 09:39 [id number] 01/23/22 09:48 01/23/22 09:39 Wound Center Nurse 2 -Time 09:40 -Correct Patient Yes -Correct Side, Site, Position Yes -Correct Procedure Yes -Procedure Performed Yes -Type of Procedure Debridement -Clinical Debridement Subcutaneous -Tissue Removed Subcutaneous -Post Debridement (cm) - Length 4.0 -Post Debridement (cm) - Width 3.8 -Post Debridement (cm) - Depth 0.5 -Total Square (Post) (cm) 15.20 -Area of Debridement (cm) - Length 4.0 -Area of Debridement (cm) - Width 3.8 -Total Square (Area) (cm) 15.20 -Tunneling No -Undermining/Tunneling No -Circular Undermining No -Wound/Ulcer Outcome Not Healed -Ulcer Cleansing Rinsed/ Irrigated with Saline -Foul Odor after Cleansing No -Bioengineered Tissue Yes -Type of Bioengineered Tissue Theraskin -Expiration Date 11/25/24 -Product Lot Number [id number] -Percent Used 100 -Lot number of Saline Used [id number] -Offloading Yes -Type of Offloading Camwalker -Assistive Device(s) Wheelchair -Debridement - Subq, 1st 20sq cm No -Apply Skin Sub - 1st 25 sq cm - Feet 1 -Theraskin (per sq cm) 13 Pain Scale: 0-10 Numeric Is Patient Pain Free? Yes WC - Nurse 3 - General Ulcer D/C NN Start: 01/17/22 14:15 Freq: Status: Active Protocol: Activity Type Activity Date Activity User E-sign Co-sign Detail Recorded Client Recorded Date Recorded By Document 01/23/22 10:07 RB Desktop 01/23/22 10:08 RB Document 01/24/22 11:51 ML [id number] 01/24/22 11:52 ML 01/23/22 01/24/22 10:07 11:51 Wound Care Nurse 3 #1 left heel cluster -Primary Dressing Applied Optilok 6.5x10 -Primary Dressing Covered/Secured with Dry Gauze,Dry Dry Gauze & Gauze & Roll Roll Gauze, Gauze,Secured Secured with with Tape Tape -Optilok 6.5x10 1 Left -Other aayush Treatment Response Procedure Tolerated Well Pain Scale: 0-10 Numeric Is Patient Pain Free? Yes Yes WC - Visit Discharge Discharge Condition Stable Ambulatory Status Wheelchair Transportation Private Auto Medication Reconcilliation completed & No provided to patient/care provider Clinical Summary of Care Provided Yes Charges/Coding Wound Center CF Procedures HBO Supervision: [id number] Hyperbaric Oxygen; supervision Assessment/Plan Assessment/Plan (1) Other acute osteomyelitis, left ankle and foot: CODE(S): M86.172 - Other acute osteomyelitis, left ankle and foot (2) Osteomyelitis: CODE(S): M86.9 - Osteomyelitis, unspecified (3) Foot osteomyelitis: CODE(S): M86.9 - Osteomyelitis, unspecified QUALIFIERS: Osteomyelitis type: other acute Laterality: left Qualified Code(s): M86.172 - Other acute osteomyelitis, left ankle and foot (4) Chronic ulcer of left foot with necrosis of bone: CODE(S): L97.524 - Non-pressure chronic ulcer of other part of left foot with necrosis of bone (5) Type 2 diabetes mellitus with diabetic polyneuropathy: CODE(S): E11.42 - Type 2 diabetes mellitus with diabetic polyneuropathy QUALIFIERS: Diabetes mellitus senior care insulin use: with senior care use Qualified Code(s): E11.42 - Type 2 diabetes mellitus with diabetic polyneuropathy; Z79.4 - retirement (current) use of insulin (6) Diabetic foot ulcer: CODE(S): E11.621 - Type 2 diabetes mellitus with foot ulcer; L97.509 - Non-pressure chronic ulcer of other part of unspecified foot with unspecified severity QUALIFIERS: Diabetic foot ulcer location: heel Diabetes mellitus type: type 2 Laterality: left Non-pressure ulcer stage: with fat layer exposed Qualified Code(s): E11.621 - Type 2 diabetes mellitus with foot ulcer; L97.422 - Non-pressure chronic ulcer of left heel and midfoot with fat layer exposed PLAN: Plan The patient tolerated hyperbaric oxygen therapy well which will be continued as per his medical plan. This note was generated with [employer] dictation software. It may contain incorrect words, spelling, and punctuation that were not noted in checking the note before signing.
[2022-01-25 09:15] LABS: Bedside Glucose 140 mg/dL (74-106)
[2022-01-25 11:20] LABS: Bedside Glucose 129 mg/dL (74-106)
[2022-01-25 12:33] VITALS: BP 107/54; BP 134/63; PULSE 52; RESP 18; RESP 19; TEMP 35.9; TEMP 36
--- NOTE | 2022-01-25 13:52 | PCM.HBO.PN ---
History of Present Illness Date of Service: 01/25/22 Chief Complaint: Osteomyelitis and chronic delayed healing ulcer, left foot History of Wound: The patient presented for a chronic, non-healing wound to left heel with osteomyelitis. A limb and life-threatening infection required emergent surgical intervention on 05-29-2021. 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 He denies fever, chill, nausea, vomiting, pain, odor, redness today. He is keeping weight off of his foot. He continues to take antibiotics as advised and is also undergoing hyperbaric oxygen therapy treatments. He continues on blood thinner due to his deep venous thrombosis and his leg swelling is starting to reduce; scheduled to complete this in about a month. He had an application of TheraSkin last week. Progress of Wound: Today represents the 27th session of 30 planned sessions. ? Hyperbaric oxygen therapy was administered as per the facility's protocol.? Hyperbaric oxygen therapy was administered for 90 minutes with no air breaks.? The patient tolerated hyperbaric oxygen therapy well, without complaints or complications.? Upon emergence from the hyperbaric chamber, the patient's vital signs remained stable.? He was discharged in good condition. Objective Data Objective Data Vital Signs: Vital Signs Temp Pulse Resp BP 96.8 F L 52 L 19 H 134/63 H 01/25/22 12:33 01/25/22 12:33 01/25/22 12:33 01/25/22 12:33 Body Mass Index (BMI) 33.7 Lab / Micro Data Labs: Laboratory Results - last 24 hr 01/25/22 08:57: POC Glucose 140 H 01/25/22 11:03: POC Glucose 129 H Exam Physical Exam Const alert, oriented x3 and no apparent distress General Appearance: cooperative HEENT normocephalic Eyes Eyes Narrative: Bilateral ear tubes in place. Resp normal respiratory effort and no use of accessory muscles Auscultation: wheezes scattered wheezes and throughout Psych affect normal Nursing Assessment and Debridement Post-Debridement Measurements and Additional Note: Post-Debridement Measurements/Treatment WC - Nurse 1 - General Ulcer Assessment Start: 01/17/22 14:15 Freq: Status: Active Protocol: [email or web address] Activity Type Activity Date Activity User E-sign Co-sign Detail Recorded Client Recorded Date Recorded By Document 01/23/22 09:25 DL [id number] 01/23/22 09:33 01/23/22 09:25 WC - Today's Visit Information Type of service Follow-up Visit (Physician/DIALYSIS TECHNICIAN ) Arrival Mode Wheelchair Transfer Assistance Manual,None Patient Identification Verified (Name & Yes ) Patient Requires Transmission-Based No Precautions Finger Stick Blood Sugar(mg/dl) (if 160 indicated): Blood Sugar Stated by Patient Height and Weight Body Mass Index (BMI) 33.7 BMI Classification Obese Vital Signs Temperature (97.8 F-99.1 F) 97.6 F L Temperature Source Temporal Pulse Rate (60-100) 64 Pulse Location Monitor Respiratory Rate (12-18) 20 H Respiratory rate source Observation Blood Pressure (90/60-120/80) 121/57 H Blood Pressure Mean (mm Hg) 78 Source Monitor History Since Last Visit- (Skip if this is Patient's initial visit) Have you changed medications since your No last visit? Any new allergies or adverse reactions No Had a fall/change in ADL's that may No increase risk of falls Signs or symptoms of abuse and/or No neglect since last visit Have you been in the hospital since your No last visit? Has dressing in place as prescribed Yes Has compression in place as prescribed Yes Has offloadiing in place as prescribed Yes Experienced any changes in pain level or No management Left Footwear Surgical Shoe with pressure relief insole Pain Scale: 0-10 Numeric Is Patient Pain Free? Yes - Nurse 1 - General Ulcer Measurement Start: 01/17/22 14:15 Freq: Status: Active Protocol: Activity Type Activity Date Activity User E-sign Co-sign Detail Recorded Client Recorded Date Recorded By Document 01/23/22 09:25 [id number] 01/23/22 09:33 01/23/22 09:25 Wound Center Nurse 1 #1 left heel cluster -Current Size (cm) - Length 4 -Current Size (cm) - Width 3.8 -Current Size (cm) - Depth 1 -Total Square Cm 15.2 -Photo Taken No -Exudate Amt Medium -Exudate Type Serosanguineous -Wound Margin Thickened -Granulation Amt Medium (34-66%) -Granulation Quality Red -Necrosis Amt Medium (34-66%) -Necrotic Tissue Type Adherent Slough -Structure Exposed N/A -Texture (Margaret-wound Skin Appearance) Scarring -Moisture (Margaret-wound Skin Appearance) Maceration -Color (Margaret-wound Skin Appearance) No Abnormality -Temperature (Margaret-wound Skin No Abnormality Appearance) (Pt Warm) -Ulcer Cleansing Soap and Water -Foul Odor after Cleansing Yes -Anesthetic Used 5% Lidocaine Gel WC - Nurse 2 - General Ulcer CM Notes Start: 01/17/22 14:15 Freq: Status: Active Protocol: Activity Type Activity Date Activity User E-sign Co-sign Detail Recorded Client Recorded Date Recorded By Document 01/23/22 09:39 [id number] 01/23/22 09:48 01/23/22 09:39 Wound Center Nurse 2 -Time 09:40 -Correct Patient Yes -Correct Side, Site, Position Yes -Correct Procedure Yes -Procedure Performed Yes -Type of Procedure Debridement -Clinical Debridement Subcutaneous -Tissue Removed Subcutaneous -Post Debridement (cm) - Length 4.0 -Post Debridement (cm) - Width 3.8 -Post Debridement (cm) - Depth 0.5 -Total Square (Post) (cm) 15.20 -Area of Debridement (cm) - Length 4.0 -Area of Debridement (cm) - Width 3.8 -Total Square (Area) (cm) 15.20 -Tunneling No -Undermining/Tunneling No -Circular Undermining No -Wound/Ulcer Outcome Not Healed -Ulcer Cleansing Rinsed/ Irrigated with Saline -Foul Odor after Cleansing No -Bioengineered Tissue Yes -Type of Bioengineered Tissue Theraskin -Expiration Date 11/25/24 -Product Lot Number [id number] -Percent Used 100 -Lot number of Saline Used [id number] -Offloading Yes -Type of Offloading Camwalker -Assistive Device(s) Wheelchair -Debridement - Subq, 1st 20sq cm No -Apply Skin Sub - 1st 25 sq cm - Feet 1 -Theraskin (per sq cm) 13 Pain Scale: 0-10 Numeric Is Patient Pain Free? Yes WC - Nurse 3 - General Ulcer D/C NN Start: 01/17/22 14:15 Freq: Status: Active Protocol: Activity Type Activity Date Activity User E-sign Co-sign Detail Recorded Client Recorded Date Recorded By Document 01/23/22 10:07 RB Desktop 01/23/22 10:08 RB Document 01/24/22 11:51 ML [id number] 01/24/22 11:52 ML Document 01/25/22 12:33 ML [id number] 01/25/22 12:39 ML 01/23/22 01/24/22 01/25/22 10:07 11:51 12:33 Wound Care Nurse 3 #1 left heel cluster -Primary Dressing Applied Optilok 6.5x10 -Primary Dressing Covered/Secured with Dry Gauze,Dry Dry Gauze & Dry Gauze & Gauze & Roll Roll Gauze, Roll Gauze, Gauze,Secured Secured with Secured with with Tape Tape Tape -Optilok 6.5x10 1 Left -Other aayush Treatment Response Procedure Tolerated Well Pain Scale: 0-10 Numeric Is Patient Pain Free? Yes Yes Yes WC - Visit Discharge Discharge Condition Stable Ambulatory Status Wheelchair Transportation Private Auto Medication Reconcilliation completed & No provided to patient/care provider Clinical Summary of Care Provided Yes Assessment/Plan Assessment/Plan (1) Other acute osteomyelitis, left ankle and foot: CODE(S): M86.172 - Other acute osteomyelitis, left ankle and foot (2) Osteomyelitis: CODE(S): M86.9 - Osteomyelitis, unspecified (3) Foot osteomyelitis: CODE(S): M86.9 - Osteomyelitis, unspecified QUALIFIERS: Osteomyelitis type: other acute Laterality: left Qualified Code(s): M86.172 - Other acute osteomyelitis, left ankle and foot (4) Chronic ulcer of left foot with necrosis of bone: CODE(S): L97.524 - Non-pressure chronic ulcer of other part of left foot with necrosis of bone (5) Type 2 diabetes mellitus with diabetic polyneuropathy: CODE(S): E11.42 - Type 2 diabetes mellitus with diabetic polyneuropathy QUALIFIERS: Diabetes mellitus skilled nursing insulin use: with exterminator use Qualified Code(s): E11.42 - Type 2 diabetes mellitus with diabetic polyneuropathy; Z79.4 - salvage determiner (current) use of insulin (6) Diabetic foot ulcer: CODE(S): E11.621 - Type 2 diabetes mellitus with foot ulcer; L97.509 - Non-pressure chronic ulcer of other part of unspecified foot with unspecified severity QUALIFIERS: Diabetic foot ulcer location: heel Diabetes mellitus type: type 2 Laterality: left Non-pressure ulcer stage: with fat layer exposed Qualified Code(s): E11.621 - Type 2 diabetes mellitus with foot ulcer; L97.422 - Non-pressure chronic ulcer of left heel and midfoot with fat layer exposed PLAN: Plan The patient tolerated hyperbaric oxygen therapy well which will be continued as per his medical plan. This note was generated with [employer] dictation software. It may contain incorrect words, spelling, and punctuation that were not noted in checking the note before signing.
[2022-01-28 09:15] LABS: Bedside Glucose 167 mg/dL (74-106)
--- NOTE | 2022-01-28 10:55 | HBO.PN.PCM_ITS ---
History of Present Illness Date of Service: 01/28/22 Chief Complaint: Osteomyelitis and chronic delayed healing ulcer, left foot History of Wound: The patient presented for a chronic, non-healing wound to left heel with osteomyelitis. A limb and life-threatening infection required emergent surgical intervention on 05-29-2021. 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 He denies fever, chill, nausea, vomiting, pain, odor, redness today. He is keeping weight off of his foot. He continues to take antibiotics as advised and is also undergoing hyperbaric oxygen therapy treatments. He continues on blood thinner due to his deep venous thrombosis and his leg swelling is starting to reduce; scheduled to complete this in about a month. He had an application of TheraSkin last week. Progress of Wound: Today represents the 28th session of 60 planned sessions. ? Hyperbaric oxygen therapy was administered as per the facility's protocol.? Hyperbaric oxygen therapy was administered for 90 minutes with no air breaks.? The patient tolerated hyperbaric oxygen therapy well, without complaints or complications.? Upon emergence from the hyperbaric chamber, the patient's vital signs remained stable.? He was discharged in good condition. Objective Data Objective Data Vital Signs: Vital Signs Temp Pulse Resp BP 96.8 F L 52 L 19 H 134/63 H 01/25/22 12:33 01/25/22 12:33 01/25/22 12:33 01/25/22 12:33 Body Mass Index (BMI) 33.7 Lab / Micro Data Labs: Laboratory Results - last 24 hr 01/28/22 08:57: POC Glucose 167 H Exam Physical Exam Const alert, oriented x3 and no apparent distress General Appearance: cooperative HEENT normocephalic Eyes Eyes Narrative: Bilateral ear tubes in place. Resp normal respiratory effort and no use of accessory muscles Auscultation: wheezes scattered wheezes and throughout Cardio regular rate and regular rhythm Psych affect normal Nursing Assessment and Debridement Post-Debridement Measurements and Additional Note: Post-Debridement Measurements/Treatment WC - Nurse 3 - General Ulcer D/C NN Start: 01/17/22 14:15 Freq: Status: Active Protocol: Activity Type Activity Date Activity User E-sign Co-sign Detail Recorded Client Recorded Date Recorded By Document 01/25/22 12:33 ML [id number] 01/25/22 12:39 ML 01/25/22 12:33 Wound Care Nurse 3 #1 left heel cluster -Primary Dressing Covered/Secured with Dry Gauze & Roll Gauze, Secured with Tape Pain Scale: 0-10 Numeric Is Patient Pain Free? Yes Charges/Coding Wound Center CF Procedures HBO Supervision: [id number] Hyperbaric Oxygen; supervision Assessment/Plan Assessment/Plan (1) Other acute osteomyelitis, left ankle and foot: CODE(S): M86.172 - Other acute osteomyelitis, left ankle and foot (2) Osteomyelitis: CODE(S): M86.9 - Osteomyelitis, unspecified (3) Foot osteomyelitis: CODE(S): M86.9 - Osteomyelitis, unspecified QUALIFIERS: Laterality: left Osteomyelitis type: other acute Qualified Code(s): M86.172 - Other acute osteomyelitis, left ankle and foot (4) Chronic ulcer of left foot with necrosis of bone: CODE(S): L97.524 - Non-pressure chronic ulcer of other part of left foot with necrosis of bone (5) Type 2 diabetes mellitus with diabetic polyneuropathy: CODE(S): E11.42 - Type 2 diabetes mellitus with diabetic polyneuropathy QUALIFIERS: Diabetes mellitus intermediate insulin use: with intermediate use Qualified Code(s): E11.42 - Type 2 diabetes mellitus with diabetic polyneuropathy; Z79.4 - [facility] (current) use of insulin (6) Diabetic foot ulcer: CODE(S): E11.621 - Type 2 diabetes mellitus with foot ulcer; L97.509 - Non-pressure chronic ulcer of other part of unspecified foot with unspecified severity QUALIFIERS: Diabetes mellitus type: type 2 Diabetic foot ulcer location: heel Laterality: left Non-pressure ulcer stage: with fat layer exposed Qualified Code(s): E11.621 - Type 2 diabetes mellitus with foot ulcer; L97.422 - Non-pressure chronic ulcer of left heel and midfoot with fat layer exposed PLAN: Plan The patient tolerated hyperbaric oxygen therapy well which will be continued as per his medical plan.
[2022-01-28 11:31] LABS: Bedside Glucose 162 mg/dL (74-106)
[2022-01-28 12:49] VITALS: BP 115/74; BP 129/63; PULSE 52; PULSE 57; RESP 19; RESP 20; TEMP 36.2
[2022-01-29 09:20] LABS: Bedside Glucose 173 mg/dL (74-106)
[2022-01-29 09:58] VITALS: BP 124/62; BP 132/58; PULSE 53; PULSE 54; RESP 19; RESP 20; TEMP 36.3
[2022-01-29 11:30] LABS: Bedside Glucose 164 mg/dL (74-106)
--- NOTE | 2022-01-29 15:03 | PCM.HBO.PN ---
History of Present Illness Date of Service: 01/29/22 Chief Complaint: Osteomyelitis and chronic delayed healing ulcer, left foot History of Wound: The patient presented for a chronic, non-healing wound to left heel with osteomyelitis. A limb and life-threatening infection required emergent surgical intervention on 05-29-2021. 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 He denies fever, chill, nausea, vomiting, pain, odor, redness today. He is keeping weight off of his foot. He continues to take antibiotics as advised and is also undergoing hyperbaric oxygen therapy treatments. He continues on blood thinner due to his deep venous thrombosis and his leg swelling is starting to reduce. Progress of Wound: Today represents the 29th session of 60 planned HBO sessions. ? Hyperbaric oxygen therapy was administered as per the facility's protocol.? Hyperbaric oxygen therapy was administered at 2 abena for 90 minutes with no air breaks.? The patient tolerated hyperbaric oxygen therapy well, without complaints or complications.? Upon emergence from the hyperbaric chamber, the patient's vital signs remained stable.? He was discharged in good condition. Pre and post blood glucose measurements are documented elsewhere. Objective Data Objective Data Vital Signs: Vital Signs Temp Pulse Resp BP 97.3 F L 53 L 19 H 132/58 H 01/29/22 09:58 01/29/22 09:58 01/29/22 09:58 01/29/22 09:58 Body Mass Index (BMI) 33.7 Lab / Micro Data Labs: Laboratory Results - last 24 hr 01/29/22 09:02: POC Glucose 173 H 01/29/22 11:10: POC Glucose 164 H Exam Physical Exam Const alert, oriented x3, no apparent distress and well nourished General Appearance: cooperative and well developed HEENT normocephalic Head and Scalp: atraumatic Eyes PERRL and EOMs intact bilaterally Neck supple General: trachea midline Resp normal respiratory effort and no use of accessory muscles Effort and Inspection: able to speak in complete sentences Psych affect normal Appearance: grossly normal and well kempt Speech: normal speech Nursing Assessment and Debridement Post-Debridement Measurements and Additional Note: Post-Debridement Measurements/Treatment WC - Nurse 3 - General Ulcer D/C NN Start: 01/17/22 14:15 Freq: Status: Active Protocol: Activity Type Activity Date Activity User E-sign Co-sign Detail Recorded Client Recorded Date Recorded By Document 01/28/22 12:49 ML [id number] 01/28/22 12:53 ML 01/28/22 12:49 Wound Care Nurse 3 #1 left heel cluster -Ulcer Cleansing Soap and Water -Foul Odor after Cleansing Yes, Due to Product Use -Primary Dressing Covered/Secured with Dry Gauze & Roll Gauze, Secured with Tape Pain Scale: 0-10 Numeric Is Patient Pain Free? Yes Assessment/Plan Assessment/Plan (1) Other acute osteomyelitis, left ankle and foot: CODE(S): M86.172 - Other acute osteomyelitis, left ankle and foot (2) Osteomyelitis: CODE(S): M86.9 - Osteomyelitis, unspecified (3) Foot osteomyelitis: CODE(S): M86.9 - Osteomyelitis, unspecified QUALIFIERS: Osteomyelitis type: other acute Laterality: left Qualified Code(s): M86.172 - Other acute osteomyelitis, left ankle and foot (4) Chronic ulcer of left foot with necrosis of bone: CODE(S): L97.524 - Non-pressure chronic ulcer of other part of left foot with necrosis of bone (5) Type 2 diabetes mellitus with diabetic polyneuropathy: CODE(S): E11.42 - Type 2 diabetes mellitus with diabetic polyneuropathy QUALIFIERS: Diabetes mellitus assisted insulin use: with termite exterminator helper use Qualified Code(s): E11.42 - Type 2 diabetes mellitus with diabetic polyneuropathy; Z79.4 - nursing home (current) use of insulin (6) Diabetic foot ulcer: CODE(S): E11.621 - Type 2 diabetes mellitus with foot ulcer; L97.509 - Non-pressure chronic ulcer of other part of unspecified foot with unspecified severity QUALIFIERS: Diabetic foot ulcer location: heel Diabetes mellitus type: type 2 Laterality: left Non-pressure ulcer stage: with fat layer exposed Qualified Code(s): E11.621 - Type 2 diabetes mellitus with foot ulcer; L97.422 - Non-pressure chronic ulcer of left heel and midfoot with fat layer exposed PLAN: Plan The patient appears to be tolerating hyperbaric oxygen therapy well, which will be continued as per the patient's medical plan.
[2022-01-30 08:11] VITALS: BP 121/62; PULSE 57; RESP 16; TEMP 36.6; BMI 33.7
[2022-01-30 09:11] LABS: Bedside Glucose 147 mg/dL (74-106)
--- NOTE | 2022-01-30 09:17 | PN.PCM_ITS ---
History of Present Illness Date of Service: 01/30/22 Chief Complaint: Osteomyelitis and chronic delayed healing ulcer, left foot History of Wound: The patient presented for a chronic, non-healing wound to left heel with osteomyelitis. A limb and life-threatening infection required emergent surgical intervention on 05-29-2021. 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 He denies fever, chill, nausea, vomiting, pain, odor, redness today. He is keeping weight off of his foot. He continues to take antibiotics as advised and is also undergoing hyperbaric oxygen therapy treatments. He continues on blood thinner due to his deep venous thrombosis and his leg swelling is starting to reduce. Progress of Wound: Wound base of itself is beefy red and producing new cells. Patient has been on thera skin for approximately 3 times and it seems to be filling in on the depth. No odor was noted wound edges a little macerated and rolled. Patient states he still gets a lot of drainage. We will try adding Aquacel extra on top of the Steri-Strips then the superabsorbent bandages. He is still Kevin wrapping his leg and still wears a boot. Still needs to offload better Subjective Subjective Patient was happy with outcomes Objective Data Objective Data As above no sign of infection noted wound measurements are slightly smaller. We will continue the TheraSkin #4 Vital Signs: Vital Signs Temp Pulse Resp BP O2 Del Method 97.8 F 57 L 16 121/62 H Room Air 01/30/22 08:11 01/30/22 08:11 01/30/22 08:11 01/30/22 08:11 01/30/22 08:11 Oxygen Delivery Method Room Air Body Mass Index (BMI) 33.7 Lab / Micro Data Attestation: I reviewed the patient's lab results. Labs: Laboratory Results - last 24 hr 01/29/22 09:02: POC Glucose 173 H 01/29/22 11:10: POC Glucose 164 H 01/30/22 08:53: POC Glucose 147 H Physical Exam Const alert, oriented x3 and no apparent distress General Appearance: cooperative HEENT normocephalic Eyes Eyes Narrative: Bilateral ear tubes in place. Resp normal respiratory effort and no use of accessory muscles Auscultation: wheezes scattered wheezes and throughout Cardio regular rate and regular rhythm Skin Skin Narrative: Open wound left heel down to muscle and fat. Rolled edges no odor and clean Psych affect normal Debridement Note Debridement Note Wound debrided: Left heel decubitus ulcer Laterality: Left Wound Grade/Stage: Stage III Type of Debridement: Excisional debridement Anesthesia Used: 5% Lidocaine Gel Depth: in the subcutaneous layer Percentage of wound debrided: 100 Instrument Used: 7mm curette, #15 blade and Forceps Tissue Removed: Devitalized tissue and fibrin Severity: Fat Layer Exposed Amount of bleeding with debridement: Mild Bleeding Controlled with: Compression and gauze Patient tolerated procedure: Patient did not tolerate procedure well Post-Debridement Measurements and Additional Note: Post-Debridement Measurements/Treatment - Nurse 1 - General Ulcer Assessment Start: 01/17/22 14:15 Freq: Status: Active Protocol: EVELYN Activity Type Activity Date Activity User E-sign Co-sign Detail Recorded Client Recorded Date Recorded By Document 01/18/22 11:29 [place] [id number] 01/18/22 11:37 AK Document 01/23/22 09:25 DL [id number] 01/23/22 09:33 DL Document 01/30/22 08:11 [facility] [id number] 01/30/22 08:19 BMF 01/18/22 01/23/22 01/30/22 11:29 09:25 08:11 - Today's Visit Information Type of service Nurse-only Follow-up Visit Follow-up Visit Visit (Physician/[employer] (Physician/[employer] ) ) Arrival Mode Wheelchair Wheelchair Wheelchair Transfer Assistance Manual,None Other Transfer Assist (Other) stand by Patient Identification Verified (Name & Yes Yes Yes ) Patient Requires Transmission-Based No No Precautions Finger Stick Blood Sugar(mg/dl) (if 160 indicated): Blood Sugar Stated by Patient Height and Weight Body Mass Index (BMI) 33.7 33.7 33.7 BMI Classification Obese Obese Obese Vital Signs Temperature (97.8 F-99.1 F) 97 F L 97.6 F L 97.8 F Temperature Source Temporal Temporal Temporal Pulse Rate (60-100) 59 L 64 57 L Pulse Location Monitor Monitor Monitor Respiratory Rate (12-18) 20 H 16 Respiratory rate source Observation Observation Oxygen Delivery Method Room Air Blood Pressure (90/60-120/80) 139/61 H 121/57 H 121/62 H Blood Pressure Mean (mm Hg) 87 78 81 Source Monitor Monitor Monitor Position Sitting Blood Pressure Location Left Arm History Since Last Visit- (Skip if this is Patient's initial visit) Have you changed medications since your No No No last visit? Any new allergies or adverse reactions No No No Had a fall/change in ADL's that may No No No increase risk of falls Signs or symptoms of abuse and/or No No No neglect since last visit Have you been in the hospital since your No No No last visit? Has dressing in place as prescribed Yes Yes Yes Has compression in place as prescribed Yes Yes Yes Has offloadiing in place as prescribed N/A Yes Yes Experienced any changes in pain level or No No No management Left Footwear Removable Cast Surgical Shoe Removable Cast Walker/Walking with pressure Walker/Walking Boot relief insole Boot Right Footwear Regular Shoe Regular Shoe Pain Scale: 0-10 Numeric Is Patient Pain Free? Yes Yes Yes WC - Nurse 1 - General Ulcer Measurement Start: 01/17/22 14:15 Freq: Status: Active Protocol: Activity Type Activity Date Activity User E-sign Co-sign Detail Recorded Client Recorded Date Recorded By Document 01/23/22 09:25 DL [id number] 01/23/22 09:33 DL Document 01/30/22 08:11 [facility] [id number] 01/30/22 08:19 BM 01/23/22 01/30/22 09:25 08:11 Wound Center Nurse 1 #1 left heel cluster -Combined with other wound No -Current Size (cm) - Length 4 4.1 -Current Size (cm) - Width 3.8 3.5 -Current Size (cm) - Depth 1 0.9 -Total Square Cm 15.2 14.35 -Date of Last Picture (Recall this 01/30/22 field) -Photo Taken No Yes -Epithelialization Small 1-33% -Tunneling No -Undermining/Tunneling Yes -Undermining/Tunneling Starts (O'clock 10 ) -Undermining/Tunneling Ends (O'clock) 11 -Maximum Distance (cm) 0.9 -Exudate Amt Medium Large -Exudate Type Serosanguineous Serosanguineous -Wound Margin Thickened Distinct, Outline Attached -Granulation Amt Medium (34-66%) Large (67-100%) -Granulation Quality Red Red -Slough/Fibrin Yes -Necrosis Amt Medium (34-66%) -Necrotic Tissue Type Adherent Slough -Structure Exposed N/A -Texture (Margaret-wound Skin Appearance) Scarring Assessed,Callus ,Scarring -Moisture (Margaret-wound Skin Appearance) Maceration Assessed,Dry/ Scaly -Color (Margaret-wound Skin Appearance) No Abnormality Assessed -Temperature (Margaret-wound Skin No Abnormality No Abnormality Appearance) (Pt Warm) (Pt Warm) -Tenderness on Palpation (Margaret-wound No Skin Appearance) -Ulcer Cleansing Soap and Water Soap and Water -Foul Odor after Cleansing Yes No -Anesthetic Used 5% Lidocaine 4% Lidocaine Gel Solution Lower Limb Edema Present Yes Left Calf (cm) 42.5 Left Ankle (cm) 24 WC - Nurse 2 - General Ulcer CM Notes Start: 01/17/22 14:15 Freq: Status: Active Protocol: Activity Type Activity Date Activity User E-sign Co-sign Detail Recorded Client Recorded Date Recorded By Document 01/23/22 09:39 [id number] 01/23/22 09:48 Document 01/30/22 08:31 [id number] 01/30/22 08:39 MW 01/23/22 01/30/22 09:39 08:31 Wound Center Nurse 2 #1 left heel cluster -Time 09:40 08:37 -Correct Patient Yes Yes -Correct Side, Site, Position Yes Yes -Correct Procedure Yes Yes -Procedure Performed Yes Yes -Type of Procedure Debridement Debridement -Clinical Debridement Subcutaneous Subcutaneous -Tissue Removed Subcutaneous Subcutaneous -Post Debridement (cm) - Length 4.0 4.0 -Post Debridement (cm) - Width 3.8 3.7 -Post Debridement (cm) - Depth 0.5 0.4 -Total Square (Post) (cm) 15.20 14.80 -Area of Debridement (cm) - Length 4.0 4.0 -Area of Debridement (cm) - Width 3.8 3.7 -Total Square (Area) (cm) 15.20 14.80 -Tunneling No No -Undermining/Tunneling No No -Circular Undermining No No -Wound/Ulcer Outcome Not Healed Not Healed -Ulcer Cleansing Rinsed/ Rinsed/ Irrigated with Irrigated with Saline Saline -Foul Odor after Cleansing No No -Bioengineered Tissue Yes Yes -Type of Bioengineered Tissue Theraskin Theraskin -Expiration Date 11/25/24 12/13/24 -Product Lot Number [id number] -Percent Used 100 100 -Lot number of Saline Used [id number] -Bleeding Controlled with Pressure -Treatment Response Procedure Tolerated Well -Offloading Yes No -Type of Offloading Camwalker -Assistive Device(s) Wheelchair -Debridement - Subq, 1st 20sq cm No No -Apply Skin Sub - 1st 25 sq cm - Feet 1 1 -Theraskin (per sq cm) 13 13 Pain Scale: 0-10 Numeric Is Patient Pain Free? Yes Yes WC - Nurse 3 - General Ulcer D/C NN Start: 01/17/22 14:15 Freq: Status: Active Protocol: Activity Type Activity Date Activity User E-sign Co-sign Detail Recorded Client Recorded Date Recorded By Document 01/17/22 14:15 AK [id number] 01/17/22 15:21 AK Document 01/18/22 11:29 AK [id number] 01/18/22 11:37 AK Document 01/23/22 10:07 RB Desktop 01/23/22 10:08 RB Edit Result 01/23/22 10:07 RB (1) Desktop 01/23/22 10:08 RB Document 01/24/22 11:51 ML [id number] 01/24/22 11:52 ML Document 01/25/22 12:33 ML [id number] 01/25/22 12:39 ML Edit Result 01/25/22 12:33 ML (2) [id number] 01/25/22 12:39 ML Document 01/28/22 12:49 ML [id number] 01/28/22 12:53 ML Document 01/30/22 08:44 BMF [id number] 01/30/22 08:46 BMF (1) Ambulatory Status Ambulatory => Wheelchair (2) #1 left heel cluster - Primary Dressing Covered/Secured with => Dry Gauze & Roll => Gauze,Secured with => Tape 01/17/22 01/18/22 01/23/22 14:15 11:29 10:07 Wound Care Nurse 3 #1 left heel cluster -Ulcer Cleansing -Foul Odor after Cleansing -Primary Dressing Applied Promogran Optilok 6.5x10 [place] Matter -Other Dressing -Primary Dressing Covered/Secured with Dry Gauze & Dry Gauze,Dry Roll Gauze, Gauze & Roll Secured with Gauze,Secured Tape with Tape -Other Covering -Aquacel Extra -Optilok 6.5x10 1 -Promogran [place] Matter 0 Left -Compression Wrap Kevin Wrap -Other kevin Treatment Response Procedure Tolerated Well Vital Signs Temperature (97.8 F-99.1 F) 97 F L Temperature Source Temporal Pulse Rate (60-100) 59 L Pulse Location Monitor Blood Pressure (90/60-120/80) 139/61 H Blood Pressure Mean (mm Hg) 87 Source Monitor Pain Scale: 0-10 Numeric Is Patient Pain Free? Yes Yes Yes WC - Visit Discharge Discharge Condition Stable Stable Ambulatory Status Wheelchair Wheelchair Transportation Private Auto Private Auto Medication Reconcilliation completed & Yes No provided to patient/care provider Clinical Summary of Care Provided Yes Yes 01/24/22 01/25/22 01/28/22 11:51 12:33 12:49 Wound Care Nurse 3 #1 left heel cluster -Ulcer Cleansing Soap and Water -Foul Odor after Cleansing Yes, Due to Product Use -Primary Dressing Applied -Other Dressing -Primary Dressing Covered/Secured with Dry Gauze & Dry Gauze & Dry Gauze & Roll Gauze, Roll Gauze, Roll Gauze, Secured with Secured with Secured with Tape Tape Tape -Other Covering -Aquacel Extra -Optilok 6.5x10 -Promogran [place] Matter Left -Compression Wrap -Other Treatment Response Vital Signs Temperature (97.8 F-99.1 F) Temperature Source Pulse Rate (60-100) Pulse Location Blood Pressure (90/60-120/80) Blood Pressure Mean (mm Hg) Source Pain Scale: 0-10 Numeric Is Patient Pain Free? Yes Yes Yes WC - Visit Discharge Discharge Condition Ambulatory Status Transportation Medication Reconcilliation completed & provided to patient/care provider Clinical Summary of Care Provided 01/30/22 08:44 Wound Care Nurse 3 #1 left heel cluster -Ulcer Cleansing -Foul Odor after Cleansing -Primary Dressing Applied Aquacel Extra, Optilok 6.5x10 -Other Dressing theraskin -Primary Dressing Covered/Secured with Dry Gauze & Roll Gauze -Other Covering abd; heel hat; drsg per rb rn -Aquacel Extra 1 -Optilok 6.5x10 1 -Promogran [place] Matter Left -Compression Wrap Kevin Wrap -Other Treatment Response Procedure Tolerated Well Vital Signs Temperature (97.8 F-99.1 F) Temperature Source Pulse Rate (60-100) Pulse Location Blood Pressure (90/60-120/80) Blood Pressure Mean (mm Hg) Source Pain Scale: 0-10 Numeric Is Patient Pain Free? Yes WC - Visit Discharge Discharge Condition Stable Ambulatory Status Ambulatory Transportation Private Auto Medication Reconcilliation completed & provided to patient/care provider Clinical Summary of Care Provided Assessment/Plan Assessment/Plan (1) Osteomyelitis of foot, left, acute: CODE(S): M86.172 - Other acute osteomyelitis, left ankle and foot (2) CAD (coronary artery disease): CODE(S): I25.10 - Atherosclerotic heart disease of [place] coronary artery without angina pectoris (3) Decubitus ulcer of left heel, stage 3: CODE(S): L89.623 - Pressure ulcer of left heel, stage 3 PLAN: Left heel TheraSkin after debridement applied #4 with wound veil Steri- Strips Aquacel extra over top and absorbent dressing nurses. Keep area around the wound dry follow-up in 1 week
[2022-01-30 10:27] VITALS: BP 115/72; BP 121/62; PULSE 53; PULSE 57; RESP 16; RESP 19; TEMP 36.6
[2022-01-30 11:26] LABS: Bedside Glucose 161 mg/dL (74-106)
--- NOTE | 2022-01-30 12:03 | PCM.HBO.PN ---
History of Present Illness Date of Service: 01/30/22 Chief Complaint: Osteomyelitis and chronic delayed healing ulcer, left foot History of Wound: The patient presented for a chronic, non-healing wound to left heel with osteomyelitis. A limb and life-threatening infection required emergent surgical intervention on 05-29-2021. 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 He denies fever, chill, nausea, vomiting, pain, odor, redness today. He is keeping weight off of his foot. He continues to take antibiotics as advised and is also undergoing hyperbaric oxygen therapy treatments. He continues on blood thinner due to his deep venous thrombosis and his leg swelling is starting to reduce. Progress of Wound: #30 of 60 hyperbaric chamber treatments applied today patient was admitted and discharged without any deficits or problems. Patient is tolerant to the treatments well we will continue further treatments as prescribed Subjective Subjective Patient has no concerns Objective Data Objective Data As above patient is stable Vital Signs: Vital Signs Temp Pulse Resp BP O2 Del Method 97.8 F 57 L 16 121/62 H Room Air 01/30/22 10:27 01/30/22 10:27 01/30/22 10:27 01/30/22 10:27 01/30/22 08:11 Oxygen Delivery Method Room Air Body Mass Index (BMI) 33.7 Lab / Micro Data Labs: Laboratory Results - last 24 hr 01/30/22 08:53: POC Glucose 147 H 01/30/22 11:04: POC Glucose 161 H Exam Physical Exam Const alert, oriented x3 and no apparent distress General Appearance: cooperative HEENT normocephalic Eyes Eyes Narrative: Bilateral ear tubes in place. Resp normal respiratory effort and no use of accessory muscles Auscultation: wheezes scattered wheezes and throughout Cardio regular rate and regular rhythm Psych affect normal Nursing Assessment and Debridement Post-Debridement Measurements and Additional Note: Post-Debridement Measurements/Treatment - Nurse 1 - General Ulcer Assessment Start: 01/17/22 14:15 Freq: Status: Active Protocol: EVELYN Activity Type Activity Date Activity User E-sign Co-sign Detail Recorded Client Recorded Date Recorded By Document 01/30/22 08:11 [facility] [id number] 01/30/22 08:19 [facility] 01/30/22 08:11 - Today's Visit Information Type of service Follow-up Visit (Physician/SCIENCE INTERN ) Arrival Mode Wheelchair Transfer Assistance Other Transfer Assist (Other) stand by Patient Identification Verified (Name & Yes ) Patient Requires Transmission-Based No Precautions Height and Weight Body Mass Index (BMI) 33.7 BMI Classification Obese Vital Signs Temperature (97.8 F-99.1 F) 97.8 F Temperature Source Temporal Pulse Rate (60-100) 57 L Pulse Location Monitor Respiratory Rate (12-18) 16 Respiratory rate source Observation Oxygen Delivery Method Room Air Blood Pressure (90/60-120/80) 121/62 H Blood Pressure Mean (mm Hg) 81 Source Monitor Position Sitting Blood Pressure Location Left Arm History Since Last Visit- (Skip if this is Patient's initial visit) Have you changed medications since your No last visit? Any new allergies or adverse reactions No Had a fall/change in ADL's that may No increase risk of falls Signs or symptoms of abuse and/or No neglect since last visit Have you been in the hospital since your No last visit? Has dressing in place as prescribed Yes Has compression in place as prescribed Yes Has offloadiing in place as prescribed Yes Experienced any changes in pain level or No management Left Footwear Removable Cast Walker/Walking Boot Right Footwear Regular Shoe Pain Scale: 0-10 Numeric Is Patient Pain Free? Yes WC - Nurse 1 - General Ulcer Measurement Start: 01/17/22 14:15 Freq: Status: Active Protocol: Activity Type Activity Date Activity User E-sign Co-sign Detail Recorded Client Recorded Date Recorded By Document 01/30/22 08:11 [facility] [id number] 01/30/22 08:19 [facility] 01/30/22 08:11 Wound Center Nurse 1 #1 left heel cluster -Combined with other wound No -Current Size (cm) - Length 4.1 -Current Size (cm) - Width 3.5 -Current Size (cm) - Depth 0.9 -Total Square Cm 14.35 -Date of Last Picture (Recall this 01/30/22 field) -Photo Taken Yes -Epithelialization Small 1-33% -Tunneling No -Undermining/Tunneling Yes -Undermining/Tunneling Starts (O'clock 10 ) -Undermining/Tunneling Ends (O'clock) 11 -Maximum Distance (cm) 0.9 -Exudate Amt Large -Exudate Type Serosanguineous -Wound Margin Distinct, Outline Attached -Granulation Amt Large (67-100%) -Granulation Quality Red -Slough/Fibrin Yes -Texture (Margaret-wound Skin Appearance) Assessed,Callus ,Scarring -Moisture (Margaret-wound Skin Appearance) Assessed,Dry/ Scaly -Color (Margaret-wound Skin Appearance) Assessed -Temperature (Margaret-wound Skin No Abnormality Appearance) (Pt Warm) -Tenderness on Palpation (Margaret-wound No Skin Appearance) -Ulcer Cleansing Soap and Water -Foul Odor after Cleansing No -Anesthetic Used 4% Lidocaine Solution Lower Limb Edema Present Yes Left Calf (cm) 42.5 Left Ankle (cm) 24 WC - Nurse 2 - General Ulcer CM Notes Start: 01/17/22 14:15 Freq: Status: Active Protocol: Activity Type Activity Date Activity User E-sign Co-sign Detail Recorded Client Recorded Date Recorded By Document 01/30/22 08:31 MW [id number] 01/30/22 08:39 MW 01/30/22 08:31 Wound Center Nurse 2 #1 left heel cluster -Time 08:37 -Correct Patient Yes -Correct Side, Site, Position Yes -Correct Procedure Yes -Procedure Performed Yes -Type of Procedure Debridement -Clinical Debridement Subcutaneous -Tissue Removed Subcutaneous -Post Debridement (cm) - Length 4.0 -Post Debridement (cm) - Width 3.7 -Post Debridement (cm) - Depth 0.4 -Total Square (Post) (cm) 14.80 -Area of Debridement (cm) - Length 4.0 -Area of Debridement (cm) - Width 3.7 -Total Square (Area) (cm) 14.80 -Tunneling No -Undermining/Tunneling No -Circular Undermining No -Wound/Ulcer Outcome Not Healed -Ulcer Cleansing Rinsed/ Irrigated with Saline -Foul Odor after Cleansing No -Bioengineered Tissue Yes -Type of Bioengineered Tissue Theraskin -Expiration Date 12/13/24 -Product Lot Number [id number] -Percent Used 100 -Lot number of Saline Used [id number] -Bleeding Controlled with Pressure -Treatment Response Procedure Tolerated Well -Offloading No -Debridement - Subq, 1st 20sq cm No -Apply Skin Sub - 1st 25 sq cm - Feet 1 -Theraskin (per sq cm) 13 Pain Scale: 0-10 Numeric Is Patient Pain Free? Yes WC - Nurse 3 - General Ulcer D/C NN Start: 01/17/22 14:15 Freq: Status: Active Protocol: Activity Type Activity Date Activity User E-sign Co-sign Detail Recorded Client Recorded Date Recorded By Document 01/28/22 12:49 ML [id number] 01/28/22 12:53 ML Document 01/30/22 08:44 [facility] [id number] 01/30/22 08:46 [facility] 01/28/22 01/30/22 12:49 08:44 Wound Care Nurse 3 #1 left heel cluster -Ulcer Cleansing Soap and Water -Foul Odor after Cleansing Yes, Due to Product Use -Primary Dressing Applied Aquacel Extra, Optilok 6.5x10 -Other Dressing theraskin -Primary Dressing Covered/Secured with Dry Gauze & Dry Gauze & Roll Gauze, Roll Gauze Secured with Tape -Other Covering abd; heel hat; drsg per rb rn -Aquacel Extra 1 -Optilok 6.5x10 1 Left -Compression Wrap Kevin Wrap Treatment Response Procedure Tolerated Well Pain Scale: 0-10 Numeric Is Patient Pain Free? Yes Yes WC - Visit Discharge Discharge Condition Stable Ambulatory Status Ambulatory Transportation Private Auto Assessment/Plan Assessment/Plan (1) Osteomyelitis: CODE(S): M86.9 - Osteomyelitis, unspecified (2) Foot osteomyelitis: CODE(S): M86.9 - Osteomyelitis, unspecified QUALIFIERS: Osteomyelitis type: other acute Laterality: left Qualified Code(s): M86.172 - Other acute osteomyelitis, left ankle and foot (3) Chronic ulcer of left foot with necrosis of bone: CODE(S): L97.524 - Non-pressure chronic ulcer of other part of left foot with necrosis of bone (4) Type 2 diabetes mellitus with diabetic polyneuropathy: CODE(S): E11.42 - Type 2 diabetes mellitus with diabetic polyneuropathy QUALIFIERS: Diabetes mellitus care home insulin use: with buttermaker helper use Qualified Code(s): E11.42 - Type 2 diabetes mellitus with diabetic polyneuropathy; Z79.4 - residential (current) use of insulin (5) Diabetic foot ulcer: CODE(S): E11.621 - Type 2 diabetes mellitus with foot ulcer; L97.509 - Non-pressure chronic ulcer of other part of unspecified foot with unspecified severity QUALIFIERS: Diabetic foot ulcer location: heel Diabetes mellitus type: type 2 Laterality: left Non-pressure ulcer stage: with fat layer exposed Qualified Code(s): E11.621 - Type 2 diabetes mellitus with foot ulcer; L97.422 - Non-pressure chronic ulcer of left heel and midfoot with fat layer exposed (6) Bilateral edema of lower extremity: CODE(S): R60.0 - Localized edema PLAN: Plan The patient tolerated hyperbaric oxygen therapy well which will be continued as per his medical plan. We have applied for 20 more treatments on his plan for hyperbaric chamber treatments
[2022-01-31 09:21] LABS: Bedside Glucose 166 mg/dL (74-106)
[2022-01-31 10:36] VITALS: BP 107/56; BP 137/59; PULSE 52; RESP 17; RESP 19; TEMP 36.3
[2022-01-31 11:31] LABS: Bedside Glucose 157 mg/dL (74-106)
--- NOTE | 2022-01-31 12:28 | HBO.PN.PCM_ITS ---
History of Present Illness Date of Service: 01/31/22 Chief Complaint: Osteomyelitis and chronic delayed healing ulcer, left foot History of Wound: The patient presented for a chronic, non-healing wound to left heel with osteomyelitis. A limb and life-threatening infection required emergent surgical intervention on 05-29-2021. 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 He denies fever, chill, nausea, vomiting, pain, odor, redness today. He is keeping weight off of his foot. He continues to take antibiotics as advised and is also undergoing hyperbaric oxygen therapy treatments. He continues on blood thinner due to his deep venous thrombosis and his leg swelling is starting to reduce. Progress of Wound: Today represents the 31st session. ? Hyperbaric oxygen therapy was administered as per the facility's protocol.? Hyperbaric oxygen therapy was administered? for 90 minutes with no air breaks.? The patient tolerated hyperbaric oxygen therapy well, without complaints or complications.? Upon emergence from the hyperbaric chamber, the patient's vital signs remained stable.? He was discharged in good condition. Objective Data Objective Data Vital Signs: Vital Signs Temp Pulse Resp BP O2 Del Method 97.3 F L 52 L 17 107/56 L Room Air 01/31/22 10:36 01/31/22 10:36 01/31/22 10:36 01/31/22 10:36 01/30/22 08:11 Oxygen Delivery Method Room Air Body Mass Index (BMI) 33.7 Lab / Micro Data Labs: Laboratory Results - last 24 hr 01/31/22 08:59: POC Glucose 166 H 01/31/22 11:09: POC Glucose 157 H Exam Physical Exam Const alert, oriented x3 and no apparent distress General Appearance: cooperative HEENT normocephalic Eyes Eyes Narrative: Bilateral ear tubes in place. Resp normal respiratory effort and no use of accessory muscles Psych affect normal Nursing Assessment and Debridement Post-Debridement Measurements and Additional Note: Post-Debridement Measurements/Treatment WC - Nurse 1 - General Ulcer Assessment Start: 01/17/22 14:15 Freq: Status: Active Protocol: JANESSA.HEMALATHAEXAnastasia Activity Type Activity Date Activity User E-sign Co-sign Detail Recorded Client Recorded Date Recorded By Document 01/30/22 08:11 [facility] [id number] 01/30/22 08:19 [facility] 01/30/22 08:11 - Today's Visit Information Type of service Follow-up Visit (Physician/DENTAL INSTRUMENT MAKER ) Arrival Mode Wheelchair Transfer Assistance Other Transfer Assist (Other) stand by Patient Identification Verified (Name & Yes ) Patient Requires Transmission-Based No Precautions Height and Weight Body Mass Index (BMI) 33.7 BMI Classification Obese Vital Signs Temperature (97.8 F-99.1 F) 97.8 F Temperature Source Temporal Pulse Rate (60-100) 57 L Pulse Location Monitor Respiratory Rate (12-18) 16 Respiratory rate source Observation Oxygen Delivery Method Room Air Blood Pressure (90/60-120/80) 121/62 H Blood Pressure Mean (mm Hg) 81 Source Monitor Position Sitting Blood Pressure Location Left Arm History Since Last Visit- (Skip if this is Patient's initial visit) Have you changed medications since your No last visit? Any new allergies or adverse reactions No Had a fall/change in ADL's that may No increase risk of falls Signs or symptoms of abuse and/or No neglect since last visit Have you been in the hospital since your No last visit? Has dressing in place as prescribed Yes Has compression in place as prescribed Yes Has offloadiing in place as prescribed Yes Experienced any changes in pain level or No management Left Footwear Removable Cast Walker/Walking Boot Right Footwear Regular Shoe Pain Scale: 0-10 Numeric Is Patient Pain Free? Yes - Nurse 1 - General Ulcer Measurement Start: 01/17/22 14:15 Freq: Status: Active Protocol: Activity Type Activity Date Activity User E-sign Co-sign Detail Recorded Client Recorded Date Recorded By Document 01/30/22 08:11 [facility] [id number] 01/30/22 08:19 [facility] 01/30/22 08:11 Wound Center Nurse 1 #1 left heel cluster -Combined with other wound No -Current Size (cm) - Length 4.1 -Current Size (cm) - Width 3.5 -Current Size (cm) - Depth 0.9 -Total Square Cm 14.35 -Date of Last Picture (Recall this 01/30/22 field) -Photo Taken Yes -Epithelialization Small 1-33% -Tunneling No -Undermining/Tunneling Yes -Undermining/Tunneling Starts (O'clock 10 ) -Undermining/Tunneling Ends (O'clock) 11 -Maximum Distance (cm) 0.9 -Exudate Amt Large -Exudate Type Serosanguineous -Wound Margin Distinct, Outline Attached -Granulation Amt Large (67-100%) -Granulation Quality Red -Slough/Fibrin Yes -Texture (Margaret-wound Skin Appearance) Assessed,Callus ,Scarring -Moisture (Margaret-wound Skin Appearance) Assessed,Dry/ Scaly -Color (Margaret-wound Skin Appearance) Assessed -Temperature (Margaret-wound Skin No Abnormality Appearance) (Pt Warm) -Tenderness on Palpation (Margaret-wound No Skin Appearance) -Ulcer Cleansing Soap and Water -Foul Odor after Cleansing No -Anesthetic Used 4% Lidocaine Solution Lower Limb Edema Present Yes Left Calf (cm) 42.5 Left Ankle (cm) 24 WC - Nurse 2 - General Ulcer CM Notes Start: 01/17/22 14:15 Freq: Status: Active Protocol: Activity Type Activity Date Activity User E-sign Co-sign Detail Recorded Client Recorded Date Recorded By Document 01/30/22 08:31 MW [id number] 01/30/22 08:39 MW 01/30/22 08:31 Wound Center Nurse 2 #1 left heel cluster -Time 08:37 -Correct Patient Yes -Correct Side, Site, Position Yes -Correct Procedure Yes -Procedure Performed Yes -Type of Procedure Debridement -Clinical Debridement Subcutaneous -Tissue Removed Subcutaneous -Post Debridement (cm) - Length 4.0 -Post Debridement (cm) - Width 3.7 -Post Debridement (cm) - Depth 0.4 -Total Square (Post) (cm) 14.80 -Area of Debridement (cm) - Length 4.0 -Area of Debridement (cm) - Width 3.7 -Total Square (Area) (cm) 14.80 -Tunneling No -Undermining/Tunneling No -Circular Undermining No -Wound/Ulcer Outcome Not Healed -Ulcer Cleansing Rinsed/ Irrigated with Saline -Foul Odor after Cleansing No -Bioengineered Tissue Yes -Type of Bioengineered Tissue Theraskin -Expiration Date 12/13/24 -Product Lot Number [id number] -Percent Used 100 -Lot number of Saline Used [id number] -Bleeding Controlled with Pressure -Treatment Response Procedure Tolerated Well -Offloading No -Debridement - Subq, 1st 20sq cm No -Apply Skin Sub - 1st 25 sq cm - Feet 1 -Theraskin (per sq cm) 13 Pain Scale: 0-10 Numeric Is Patient Pain Free? Yes - Nurse 3 - General Ulcer D/C NN Start: 01/17/22 14:15 Freq: Status: Active Protocol: Activity Type Activity Date Activity User E-sign Co-sign Detail Recorded Client Recorded Date Recorded By Document 01/28/22 12:49 ML [id number] 01/28/22 12:53 ML Document 01/30/22 08:44 BM [id number] 01/30/22 08:46 BMF Document 01/31/22 10:36 ML [id number] 01/31/22 10:39 ML 01/28/22 01/30/22 01/31/22 12:49 08:44 10:36 Wound Care Nurse 3 #1 left heel cluster -Ulcer Cleansing Soap and Water Soap and Water -Foul Odor after Cleansing Yes, Due to No Product Use -Primary Dressing Applied Aquacel Extra, Aquacel Extra Optilok 6.5x10 -Other Dressing theraskin -Primary Dressing Covered/Secured with Dry Gauze & Dry Gauze & Dry Gauze & Roll Gauze, Roll Gauze Roll Gauze, Secured with Secured with Tape Tape -Other Covering abd; heel hat; drsg per rb rn -Aquacel Extra 1 1 -Optilok 6.5x10 1 Left -Compression Wrap Kevin Wrap Treatment Response Procedure Tolerated Well Pain Scale: 0-10 Numeric Is Patient Pain Free? Yes Yes Yes - Visit Discharge Discharge Condition Stable Ambulatory Status Ambulatory Transportation Private Auto Charges/Coding Wound Center CF Procedures HBO Supervision: [id number] Hyperbaric Oxygen; supervision Assessment/Plan Assessment/Plan (1) Other acute osteomyelitis, left ankle and foot: CODE(S): M86.172 - Other acute osteomyelitis, left ankle and foot (2) Osteomyelitis: CODE(S): M86.9 - Osteomyelitis, unspecified (3) Foot osteomyelitis: CODE(S): M86.9 - Osteomyelitis, unspecified QUALIFIERS: Laterality: left Osteomyelitis type: other acute Qualified Code(s): M86.172 - Other acute osteomyelitis, left ankle and foot (4) Chronic ulcer of left foot with necrosis of bone: CODE(S): L97.524 - Non-pressure chronic ulcer of other part of left foot with necrosis of bone (5) Type 2 diabetes mellitus with diabetic polyneuropathy: CODE(S): E11.42 - Type 2 diabetes mellitus with diabetic polyneuropathy QUALIFIERS: Diabetes mellitus senior care insulin use: with 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 driver use Qualified Code(s): E11.42 - Type 2 diabetes mellitus with diabetic polyneuropathy; Z79.4 - USP (current) use of insulin (6) Diabetic foot ulcer: CODE(S): E11.621 - Type 2 diabetes mellitus with foot ulcer; L97.509 - Non-pressure chronic ulcer of other part of unspecified foot with unspecified severity QUALIFIERS: Diabetes mellitus type: type 2 Diabetic foot ulcer location: heel Laterality: left Non-pressure ulcer stage: with fat layer exposed Qualified Code(s): E11.621 - Type 2 diabetes mellitus with foot ulcer; L97.422 - Non-pressure chronic ulcer of left heel and midfoot with fat layer exposed PLAN: Plan The patient tolerated hyperbaric oxygen therapy well which will be continued as per his medical plan. This note was generated with Albireoation software. It may contain incorrect words, spelling, and punctuation that were not noted in checking the note before signing.
[2022-02-01 09:10] LABS: Bedside Glucose 170 mg/dL (74-106)
[2022-02-01 11:21] LABS: Bedside Glucose 156 mg/dL (74-106)
[2022-02-01 11:39] VITALS: BP 135/63; BP 144/68; PULSE 49; PULSE 52; RESP 18; TEMP 36.2
--- NOTE | 2022-02-01 14:04 | HBO.PN.PCM_ITS ---
History of Present Illness Date of Service: 02/01/22 Chief Complaint: Osteomyelitis and chronic delayed healing ulcer, left foot History of Wound: The patient presented for a chronic, non-healing wound to left heel with osteomyelitis. A limb and life-threatening infection required emergent surgical intervention on 05-29-2021. 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 He denies fever, chill, nausea, vomiting, pain, odor, redness today. He is keeping weight off of his foot. He continues to take antibiotics as advised and is also undergoing hyperbaric oxygen therapy treatments. He continues on blood thinner due to his deep venous thrombosis and his leg swelling is starting to reduce. Progress of Wound: Today represents the 32nd session. Hyperbaric oxygen therapy was administered as per the facility's protocol.? Hyperbaric oxygen therapy was administered? for 90 minutes with no air breaks.? The patient tolerated hyperbaric oxygen therapy well, without complaints or complications.? Upon emergence from the hyperbaric chamber, the patient's vital signs remained stable.? He was discharged in good condition. Objective Data Objective Data Vital Signs: Vital Signs Temp Pulse Resp BP O2 Del Method 97.2 F L 52 L 18 144/68 H Room Air 02/01/22 11:39 02/01/22 11:39 02/01/22 11:39 02/01/22 11:39 01/30/22 08:11 Oxygen Delivery Method Room Air Body Mass Index (BMI) 33.7 Lab / Micro Data Labs: Laboratory Results - last 24 hr 02/01/22 08:49: POC Glucose 170 H 02/01/22 10:57: POC Glucose 156 H Exam Physical Exam Const alert, oriented x3 and no apparent distress General Appearance: cooperative HEENT normocephalic Eyes Eyes Narrative: Bilateral ear tubes in place. Resp normal respiratory effort and no use of accessory muscles Auscultation: wheezes scattered wheezes and throughout Psych affect normal Nursing Assessment and Debridement Post-Debridement Measurements and Additional Note: Post-Debridement Measurements/Treatment WC - Nurse 1 - General Ulcer Assessment Start: 01/17/22 14:15 Freq: Status: Active Protocol: WC.LOWEXT Activity Type Activity Date Activity User E-sign Co-sign Detail Recorded Client Recorded Date Recorded By Document 01/30/22 08:11 [facility] [id number] 01/30/22 08:19 [facility] 01/30/22 08:11 - Today's Visit Information Type of service Follow-up Visit (Physician/HEADER SET UP OPERATOR ) Arrival Mode Wheelchair Transfer Assistance Other Transfer Assist (Other) stand by Patient Identification Verified (Name & Yes ) Patient Requires Transmission-Based No Precautions Height and Weight Body Mass Index (BMI) 33.7 BMI Classification Obese Vital Signs Temperature (97.8 F-99.1 F) 97.8 F Temperature Source Temporal Pulse Rate (60-100) 57 L Pulse Location Monitor Respiratory Rate (12-18) 16 Respiratory rate source Observation Oxygen Delivery Method Room Air Blood Pressure (90/60-120/80) 121/62 H Blood Pressure Mean (mm Hg) 81 Source Monitor Position Sitting Blood Pressure Location Left Arm History Since Last Visit- (Skip if this is Patient's initial visit) Have you changed medications since your No last visit? Any new allergies or adverse reactions No Had a fall/change in ADL's that may No increase risk of falls Signs or symptoms of abuse and/or No neglect since last visit Have you been in the hospital since your No last visit? Has dressing in place as prescribed Yes Has compression in place as prescribed Yes Has offloadiing in place as prescribed Yes Experienced any changes in pain level or No management Left Footwear Removable Cast Walker/Walking Boot Right Footwear Regular Shoe Pain Scale: 0-10 Numeric Is Patient Pain Free? Yes - Nurse 1 - General Ulcer Measurement Start: 01/17/22 14:15 Freq: Status: Active Protocol: Activity Type Activity Date Activity User E-sign Co-sign Detail Recorded Client Recorded Date Recorded By Document 01/30/22 08:11 [facility] [id number] 01/30/22 08:19 [facility] 01/30/22 08:11 Wound Center Nurse 1 #1 left heel cluster -Combined with other wound No -Current Size (cm) - Length 4.1 -Current Size (cm) - Width 3.5 -Current Size (cm) - Depth 0.9 -Total Square Cm 14.35 -Date of Last Picture (Recall this 01/30/22 field) -Photo Taken Yes -Epithelialization Small 1-33% -Tunneling No -Undermining/Tunneling Yes -Undermining/Tunneling Starts (O'clock 10 ) -Undermining/Tunneling Ends (O'clock) 11 -Maximum Distance (cm) 0.9 -Exudate Amt Large -Exudate Type Serosanguineous -Wound Margin Distinct, Outline Attached -Granulation Amt Large (67-100%) -Granulation Quality Red -Slough/Fibrin Yes -Texture (Margaret-wound Skin Appearance) Assessed,Callus ,Scarring -Moisture (Margaret-wound Skin Appearance) Assessed,Dry/ Scaly -Color (Margaret-wound Skin Appearance) Assessed -Temperature (Margaret-wound Skin No Abnormality Appearance) (Pt Warm) -Tenderness on Palpation (Margaret-wound No Skin Appearance) -Ulcer Cleansing Soap and Water -Foul Odor after Cleansing No -Anesthetic Used 4% Lidocaine Solution Lower Limb Edema Present Yes Left Calf (cm) 42.5 Left Ankle (cm) 24 WC - Nurse 2 - General Ulcer CM Notes Start: 01/17/22 14:15 Freq: Status: Active Protocol: Activity Type Activity Date Activity User E-sign Co-sign Detail Recorded Client Recorded Date Recorded By Document 01/30/22 08:31 MW [id number] 01/30/22 08:39 MW 01/30/22 08:31 Wound Center Nurse 2 #1 left heel cluster -Time 08:37 -Correct Patient Yes -Correct Side, Site, Position Yes -Correct Procedure Yes -Procedure Performed Yes -Type of Procedure Debridement -Clinical Debridement Subcutaneous -Tissue Removed Subcutaneous -Post Debridement (cm) - Length 4.0 -Post Debridement (cm) - Width 3.7 -Post Debridement (cm) - Depth 0.4 -Total Square (Post) (cm) 14.80 -Area of Debridement (cm) - Length 4.0 -Area of Debridement (cm) - Width 3.7 -Total Square (Area) (cm) 14.80 -Tunneling No -Undermining/Tunneling No -Circular Undermining No -Wound/Ulcer Outcome Not Healed -Ulcer Cleansing Rinsed/ Irrigated with Saline -Foul Odor after Cleansing No -Bioengineered Tissue Yes -Type of Bioengineered Tissue Theraskin -Expiration Date 12/13/24 -Product Lot Number [id number] -Percent Used 100 -Lot number of Saline Used [id number] -Bleeding Controlled with Pressure -Treatment Response Procedure Tolerated Well -Offloading No -Debridement - Subq, 1st 20sq cm No -Apply Skin Sub - 1st 25 sq cm - Feet 1 -Theraskin (per sq cm) 13 Pain Scale: 0-10 Numeric Is Patient Pain Free? Yes - Nurse 3 - General Ulcer D/C NN Start: 01/17/22 14:15 Freq: Status: Active Protocol: Activity Type Activity Date Activity User E-sign Co-sign Detail Recorded Client Recorded Date Recorded By Document 01/30/22 08:44 [facility] [id number] 01/30/22 08:46 BMF Document 01/31/22 10:36 ML [id number] 01/31/22 10:39 ML Document 02/01/22 11:39 ML [id number] 02/01/22 11:52 ML 01/30/22 01/31/22 02/01/22 08:44 10:36 11:39 Wound Care Nurse 3 #1 left heel cluster -Ulcer Cleansing Soap and Water Soap and Water -Foul Odor after Cleansing No No -Primary Dressing Applied Aquacel Extra, Aquacel Extra Aquacel Extra Optilok 6.5x10 -Other Dressing theraskin KEVIN,SUPER ABSORB -Primary Dressing Covered/Secured with Dry Gauze & Dry Gauze & Dry Gauze & Roll Gauze Roll Gauze, Roll Gauze, Secured with Secured with Tape Tape -Other Covering abd; heel hat; drsg per rb rn -Aquacel Extra 1 1 0 -Optilok 6.5x10 1 Left -Compression Wrap Kevin Wrap Treatment Response Procedure Tolerated Well Pain Scale: 0-10 Numeric Is Patient Pain Free? Yes Yes Yes - Visit Discharge Discharge Condition Stable Ambulatory Status Ambulatory Transportation Private Auto Assessment/Plan Assessment/Plan (1) Other acute osteomyelitis, left ankle and foot: CODE(S): M86.172 - Other acute osteomyelitis, left ankle and foot (2) Osteomyelitis: CODE(S): M86.9 - Osteomyelitis, unspecified (3) Foot osteomyelitis: CODE(S): M86.9 - Osteomyelitis, unspecified QUALIFIERS: Osteomyelitis type: other acute Laterality: left Qualified Code(s): M86.172 - Other acute osteomyelitis, left ankle and foot (4) Chronic ulcer of left foot with necrosis of bone: CODE(S): L97.524 - Non-pressure chronic ulcer of other part of left foot with necrosis of bone (5) Type 2 diabetes mellitus with diabetic polyneuropathy: CODE(S): E11.42 - Type 2 diabetes mellitus with diabetic polyneuropathy QUALIFIERS: Diabetes mellitus long term care phlebotomist insulin use: with long term care phlebotomist use Qualified Code(s): E11.42 - Type 2 diabetes mellitus with diabetic polyneuropathy; Z79.4 - superintendent terminal (current) use of insulin (6) Diabetic foot ulcer: CODE(S): E11.621 - Type 2 diabetes mellitus with foot ulcer; L97.509 - Non-pressure chronic ulcer of other part of unspecified foot with unspecified severity QUALIFIERS: Diabetic foot ulcer location: heel Diabetes mellitus type: type 2 Laterality: left Non-pressure ulcer stage: with fat layer exposed Qualified Code(s): E11.621 - Type 2 diabetes mellitus with foot ulcer; L97.422 - Non-pressure chronic ulcer of left heel and midfoot with fat layer exposed PLAN: Plan The patient tolerated hyperbaric oxygen therapy well which will be continued as per his medical plan. This note was generated with Zenytimeation software. It may contain incorrect words, spelling, and punctuation that were not noted in checking the note before signing.
[2022-02-04 09:20] LABS: Bedside Glucose 167 mg/dL (74-106)
--- NOTE | 2022-02-04 09:26 | HBO.PN.PCM_ITS ---
History of Present Illness Date of Service: 02/04/22 Chief Complaint: Osteomyelitis and chronic delayed healing ulcer, left foot History of Wound: The patient presented for a chronic, non-healing wound to left heel with osteomyelitis. A limb and life-threatening infection required emergent surgical intervention on 05-29-2021. 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 He denies fever, chill, nausea, vomiting, pain, odor, redness today. He is keeping weight off of his foot. He continues to take antibiotics as advised and is also undergoing hyperbaric oxygen therapy treatments. He continues on blood thinner due to his deep venous thrombosis and his leg swelling is starting to reduce. Progress of Wound: Today represents the 33rdd session. Hyperbaric oxygen therapy was administered as per the facility's protocol.? Hyperbaric oxygen therapy was administered? for 90 minutes with no air breaks.? The patient tolerated hyperbaric oxygen therapy well, without complaints or complications.? Upon emergence from the hyperbaric chamber, the patient's vital signs remained stable.? He was discharged in good condition. Objective Data Objective Data Vital Signs: Vital Signs Temp Pulse Resp BP O2 Del Method 97.2 F L 52 L 18 144/68 H Room Air 02/01/22 11:39 02/01/22 11:39 02/01/22 11:39 02/01/22 11:39 01/30/22 08:11 Oxygen Delivery Method Room Air Body Mass Index (BMI) 33.7 Lab / Micro Data Labs: Laboratory Results - last 24 hr 02/04/22 09:04: POC Glucose 167 H Exam Physical Exam Const alert, oriented x3 and no apparent distress General Appearance: cooperative HEENT normocephalic Eyes Eyes Narrative: Bilateral ear tubes in place. Resp normal respiratory effort and no use of accessory muscles Auscultation: wheezes scattered wheezes and throughout Psych affect normal Nursing Assessment and Debridement Post-Debridement Measurements and Additional Note: Post-Debridement Measurements/Treatment WC - Nurse 3 - General Ulcer D/C NN Start: 01/17/22 14:15 Freq: Status: Active Protocol: Activity Type Activity Date Activity User E-sign Co-sign Detail Recorded Client Recorded Date Recorded By Document 02/01/22 11:39 ML [id number] 02/01/22 11:52 ML 02/01/22 11:39 Wound Care Nurse 3 #1 left heel cluster -Ulcer Cleansing Soap and Water -Foul Odor after Cleansing No -Primary Dressing Applied Aquacel Extra -Other Dressing KASI,SUPER ABSORB -Primary Dressing Covered/Secured with Dry Gauze & Roll Gauze, Secured with Tape -Aquacel Extra 0 Pain Scale: 0-10 Numeric Is Patient Pain Free? Yes Assessment/Plan Assessment/Plan (1) Other acute osteomyelitis, left ankle and foot: CODE(S): M86.172 - Other acute osteomyelitis, left ankle and foot (2) Osteomyelitis: CODE(S): M86.9 - Osteomyelitis, unspecified (3) Foot osteomyelitis: CODE(S): M86.9 - Osteomyelitis, unspecified QUALIFIERS: Laterality: left Osteomyelitis type: other acute Qualified Code(s): M86.172 - Other acute osteomyelitis, left ankle and foot (4) Chronic ulcer of left foot with necrosis of bone: CODE(S): L97.524 - Non-pressure chronic ulcer of other part of left foot with necrosis of bone (5) Type 2 diabetes mellitus with diabetic polyneuropathy: CODE(S): E11.42 - Type 2 diabetes mellitus with diabetic polyneuropathy QUALIFIERS: 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 insulin 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: with machine pecan gatherer use Qualified Code(s): E11.42 - Type 2 diabetes mellitus with diabetic polyneuropathy; Z79.4 - custodial (current) use of insulin (6) Diabetic foot ulcer: CODE(S): E11.621 - Type 2 diabetes mellitus with foot ulcer; L97.509 - Non-pressure chronic ulcer of other part of unspecified foot with unspecified severity QUALIFIERS: Diabetes mellitus type: type 2 Diabetic foot ulcer location: heel Laterality: left Non-pressure ulcer stage: with fat layer exposed Qualified Code(s): E11.621 - Type 2 diabetes mellitus with foot ulcer; L97.422 - Non-pressure chronic ulcer of left heel and midfoot with fat layer exposed PLAN: Plan The patient tolerated hyperbaric oxygen therapy well which will be continued as per his medical plan. This note was generated with Apptopiaation software. It may contain incorrect words, spelling, and punctuation that were not noted in checking the note before signing.
[2022-02-04 11:08] VITALS: BP 132/65; BP 137/58; PULSE 51; PULSE 56; RESP 17; RESP 18; TEMP 36.2
[2022-02-04 11:31] LABS: Bedside Glucose 155 mg/dL (74-106)
[2022-02-05 09:06] LABS: Bedside Glucose 182 mg/dL (74-106)
[2022-02-05 09:45] VITALS: BP 129/82; BP 137/65; PULSE 55; PULSE 56; RESP 18; RESP 19; TEMP 36.2
[2022-02-05 11:12] LABS: Bedside Glucose 172 mg/dL (74-106)
--- NOTE | 2022-02-05 16:23 | HBO.PN.PCM_ITS ---
History of Present Illness Date of Service: 02/05/22 Chief Complaint: Osteomyelitis and chronic delayed healing ulcer, left foot History of Wound: The patient presented for a chronic, non-healing wound to left heel with osteomyelitis. A limb and life-threatening infection required emergent surgical intervention on 05-29-2021. 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 He denies fever, chill, nausea, vomiting, pain, odor, redness today. He is keeping weight off of his foot. He continues to take antibiotics as advised and is also undergoing hyperbaric oxygen therapy treatments. He continues on blood thinner due to his deep venous thrombosis and his leg swelling is starting to reduce. Progress of Wound: Today represents the 34th session of hyperbaric oxygen therapy. Hyperbaric oxygen therapy was administered as per the facility's protocol.? Hyperbaric oxygen therapy was administered? for 90 minutes at 2 abena with no air breaks.? The patient tolerated hyperbaric oxygen therapy well, without complaints or complications.? Upon emergence from the hyperbaric chamber, the patient's vital signs remained stable.? He was discharged in good condition. Pre and post serum blood glucose measurements are recorded elsewhere. Objective Data Objective Data Vital Signs: Vital Signs Temp Pulse Resp BP O2 Del Method 97.2 F L 55 L 19 H 137/65 H Room Air 02/05/22 09:45 02/05/22 09:45 02/05/22 09:45 02/05/22 09:45 01/30/22 08:11 Oxygen Delivery Method Room Air Body Mass Index (BMI) 33.7 Lab / Micro Data Labs: Laboratory Results - last 24 hr 02/05/22 08:44: POC Glucose 182 H 02/05/22 10:50: POC Glucose 172 H Exam Physical Exam Const alert, oriented x3, no apparent distress and well nourished General Appearance: cooperative and well developed HEENT normocephalic and EAC's normal Head and Scalp: atraumatic Eyes PERRL and EOMs intact bilaterally Neck General: trachea midline Resp normal respiratory effort and no use of accessory muscles Effort and Inspection: able to speak in complete sentences Psych affect normal Appearance: grossly normal Speech: normal speech Nursing Assessment and Debridement Post-Debridement Measurements and Additional Note: Post-Debridement Measurements/Treatment WC - Nurse 3 - General Ulcer D/C NN Start: 01/17/22 14:15 Freq: Status: Active Protocol: Activity Type Activity Date Activity User E-sign Co-sign Detail Recorded Client Recorded Date Recorded By Document 02/04/22 11:08 ML [id number] 02/04/22 11:49 ML Document 02/05/22 09:45 ML [id number] 02/05/22 09:48 ML 02/04/22 02/05/22 11:08 09:45 Wound Care Nurse 3 #1 left heel cluster -Ulcer Cleansing Soap and Water Soap and Water -Foul Odor after Cleansing No No -Negative Pressure Wound Therapy N/A -Primary Dressing Applied Aquacel Extra Aquacel Extra -Primary Dressing Covered/Secured with Dry Gauze & Dry Gauze & Roll Gauze, Roll Gauze, Secured with Secured with Tape Tape -Aquacel Extra 0 0 Pain Scale: 0-10 Numeric Is Patient Pain Free? Yes Yes Assessment/Plan Assessment/Plan (1) Other acute osteomyelitis, left ankle and foot: CODE(S): M86.172 - Other acute osteomyelitis, left ankle and foot (2) Osteomyelitis: CODE(S): M86.9 - Osteomyelitis, unspecified (3) Foot osteomyelitis: CODE(S): M86.9 - Osteomyelitis, unspecified QUALIFIERS: Osteomyelitis type: other acute Laterality: left Qualified Code(s): M86.172 - Other acute osteomyelitis, left ankle and foot (4) Chronic ulcer of left foot with necrosis of bone: CODE(S): L97.524 - Non-pressure chronic ulcer of other part of left foot with necrosis of bone (5) Type 2 diabetes mellitus with diabetic polyneuropathy: CODE(S): E11.42 - Type 2 diabetes mellitus with diabetic polyneuropathy QUALIFIERS: Diabetes mellitus fdc insulin use: with fdc use Qualified Code(s): E11.42 - Type 2 diabetes mellitus with diabetic polyneuropathy; 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 This note was generated with [employer] dictation software. It may contain incorrect words, spelling, and punctuation that were not noted in checking the note before signing.
[2022-02-06 09:38] VITALS: BP 118/64; PULSE 55; TEMP 35.7; BMI 33.7
[2022-02-06 10:35] LABS: Bedside Glucose 156 mg/dL (74-106)
[2022-02-06 10:40] VITALS: BP 118/64; BP 140/63; PULSE 55; PULSE 56; RESP 18; RESP 19; TEMP 35.7
--- NOTE | 2022-02-06 10:57 | PN.PCM_ITS ---
History of Present Illness Date of Service: 02/06/22 Chief Complaint: Osteomyelitis and chronic delayed healing ulcer, left foot History of Wound: The patient presented for a chronic, non-healing wound to left heel with osteomyelitis. A limb and life-threatening infection required emergent surgical intervention on 05-29-2021. 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 He denies fever, chill, nausea, vomiting, pain, odor, redness today. He is keeping weight off of his foot. He continues to take antibiotics as advised and is also undergoing hyperbaric oxygen therapy treatments. He continues on blood thinner due to his deep venous thrombosis and his leg swelling is starting to reduce. Progress of Wound: Wound measurements are about the same he has rolled edges with some maceration. Lots of new cell growth and base of wound which makes it look on even. We will reculture this week since his last cultures were in October and we seem to be at a standstill with movement. We are holding on the TheraSkin because it just keeps falling off after 1 to 2 days. He seems to do better with the Aquacel extra because of the amount of drainage he gets. Patient has a hard time understanding that any kind of pressure on it causes more drainage. Subjective Subjective Patient is concerned that his ankles are super small and wonders if the Kevin wrap is too tight. The foot appears to be swollen. Objective Data Objective Data We will change from Kevin wrap underneath to double layer Tubigrip with an Kevin wrap over top that is looser around the ankle area. We will also obtain cultures today and continue using Aquacel extra to the wound base with superabsorbent dressings over top. A double layer Tubigrip with an Kevin wrap over top of that. Vital Signs: Vital Signs Temp Pulse Resp BP O2 Del Method 96.2 F L 55 L 18 118/64 Room Air 02/06/22 10:40 02/06/22 10:40 02/06/22 10:40 02/06/22 10:40 01/30/22 08:11 Oxygen Delivery Method Room Air Body Mass Index (BMI) 33.7 Lab / Micro Data Attestation: I reviewed the patient's lab results. Labs: Laboratory Results - last 24 hr 02/05/22 10:50: POC Glucose 172 H 02/06/22 10:14: POC Glucose 156 H Physical Exam Const alert, oriented x3, no apparent distress and well nourished General Appearance: cooperative and well developed HEENT normocephalic and EAC's normal Head and Scalp: atraumatic Eyes PERRL and EOMs intact bilaterally Eyes Narrative: Bilateral ear tubes in place. Neck General: trachea midline Resp normal respiratory effort and no use of accessory muscles Effort and Inspection: able to speak in complete sentences Auscultation: wheezes scattered wheezes and throughout Cardio regular rate and regular rhythm Psych affect normal Appearance: grossly normal Speech: normal speech Debridement Note Debridement Note Wound debrided: Left heel decubitus ulcer Laterality: Left Wound Grade/Stage: Stage III Type of Debridement: Excisional debridement Depth: in the subcutaneous layer Percentage of wound debrided: 100 Instrument Used: 7mm curette Tissue Removed: Fibrin and callus and macerated tissue Severity: Fat Layer Exposed Amount of bleeding with debridement: Mild Bleeding Controlled with: Compression and gauze Patient tolerated procedure: Patient tolerated procedure well Post-Debridement Measurements and Additional Note: Post-Debridement Measurements/Treatment - Nurse 1 - General Ulcer Assessment Start: 01/17/22 14:15 Freq: Status: Active Protocol: EVELYN Activity Type Activity Date Activity User E-sign Co-sign Detail Recorded Client Recorded Date Recorded By Document 01/18/22 11:29 AR [id number] 01/18/22 11:37 AK Document 01/23/22 09:25 [id number] 01/23/22 09:33 DL Document 01/30/22 08:11 [facility] [id number] 01/30/22 08:19 [facility] Document 02/06/22 09:38 AR [id number] 02/06/22 09:40 AK 01/18/22 01/23/22 01/30/22 11:29 09:25 08:11 - Today's Visit Information Type of service Nurse-only Follow-up Visit Follow-up Visit Visit (Physician/RESERVATIONS SPECIALIST (Physician/RESERVATIONS SPECIALIST ) ) Arrival Mode Wheelchair Wheelchair Wheelchair Transfer Assistance Manual,None Other Transfer Assist (Other) stand by Patient Identification Verified (Name & Yes Yes Yes ) Patient Requires Transmission-Based No No Precautions Safety Precautions Finger Stick Blood Sugar(mg/dl) (if 160 indicated): Blood Sugar Stated by Patient Height and Weight Body Mass Index (BMI) 33.7 33.7 33.7 BMI Classification Obese Obese Obese Vital Signs Temperature (97.8 F-99.1 F) 97 F L 97.6 F L 97.8 F Temperature Source Temporal Temporal Temporal Pulse Rate (60-100) 59 L 64 57 L Pulse Location Monitor Monitor Monitor Respiratory Rate (12-18) 20 H 16 Respiratory rate source Observation Observation Oxygen Delivery Method Room Air Blood Pressure (90/60-120/80) 139/61 H 121/57 H 121/62 H Blood Pressure Mean (mm Hg) 87 78 81 Source Monitor Monitor Monitor Position Sitting Blood Pressure Location Left Arm History Since Last Visit- (Skip if this is Patient's initial visit) Have you changed medications since your No No No last visit? Any new allergies or adverse reactions No No No Had a fall/change in ADL's that may No No No increase risk of falls Signs or symptoms of abuse and/or No No No neglect since last visit Have you been in the hospital since your No No No last visit? Has dressing in place as prescribed Yes Yes Yes Has compression in place as prescribed Yes Yes Yes Has offloadiing in place as prescribed N/A Yes Yes Experienced any changes in pain level or No No No management Left Footwear Removable Cast Surgical Shoe Removable Cast Walker/Walking with pressure Walker/Walking Boot relief insole Boot Right Footwear Regular Shoe Regular Shoe Pain Scale: 0-10 Numeric Is Patient Pain Free? Yes Yes Yes 02/06/22 09:38 WC - Today's Visit Information Type of service Follow-up Visit (Physician/RESERVATIONS SPECIALIST ) Arrival Mode Wheelchair Transfer Assistance Transfer Assist (Other) Patient Identification Verified (Name & Yes ) Patient Requires Transmission-Based No Precautions Safety Precautions NA Finger Stick Blood Sugar(mg/dl) (if indicated): Blood Sugar Height and Weight Body Mass Index (BMI) 33.7 BMI Classification Obese Vital Signs Temperature (97.8 F-99.1 F) 96.2 F L Temperature Source Temporal Pulse Rate (60-100) 55 L Pulse Location Monitor Respiratory Rate (12-18) Respiratory rate source Oxygen Delivery Method Blood Pressure (90/60-120/80) 118/64 Blood Pressure Mean (mm Hg) 82 Source Position Blood Pressure Location History Since Last Visit- (Skip if this is Patient's initial visit) Have you changed medications since your No last visit? Any new allergies or adverse reactions No Had a fall/change in ADL's that may No increase risk of falls Signs or symptoms of abuse and/or No neglect since last visit Have you been in the hospital since your No last visit? Has dressing in place as prescribed Yes Has compression in place as prescribed Yes Has offloadiing in place as prescribed Yes Experienced any changes in pain level or No management Left Footwear Regular Shoe Right Footwear Removable Cast Walker/Walking Boot Pain Scale: 0-10 Numeric Is Patient Pain Free? Yes WC - Nurse 1 - General Ulcer Measurement Start: 01/17/22 14:15 Freq: Status: Active Protocol: Activity Type Activity Date Activity User E-sign Co-sign Detail Recorded Client Recorded Date Recorded By Document 01/23/22 09:25 DL [id number] 01/23/22 09:33 DL Document 01/30/22 08:11 [facility] [id number] 01/30/22 08:19 BMF Document 02/06/22 09:38 AK [id number] 02/06/22 09:40 AK 01/23/22 01/30/22 02/06/22 09:25 08:11 09:38 Wound Center Nurse 1 #1 left heel cluster -Combined with other wound No No -Current Size (cm) - Length 4 4.1 4 -Current Size (cm) - Width 3.8 3.5 3.6 -Current Size (cm) - Depth 1 0.9 0.2 -Total Square Cm 15.2 14.35 14.4 -Date of Last Picture (Recall this 01/30/22 02/06/22 field) -Photo Taken No Yes Yes -Epithelialization Small 1-33% -Tunneling No No -Undermining/Tunneling Yes No -Undermining/Tunneling Starts (O'clock 10 ) -Undermining/Tunneling Ends (O'clock) 11 -Maximum Distance (cm) 0.9 -Circular Undermining No -Change in Wound Grade/Stage No -Exudate Amt Medium Large Large -Exudate Type Serosanguineous Serosanguineous Serosanguineous -Wound Margin Thickened Distinct, Distinct, Outline Outline Attached Attached -Granulation Amt Medium (34-66%) Large (67-100%) Large (67-100%) -Granulation Quality Red Red [place],Red -Slough/Fibrin Yes Yes -Necrosis Amt Medium (34-66%) Small (1-33%) -Necrotic Tissue Type Adherent Slough Adherent Slough -Structure Exposed N/A N/A -Texture (Margaret-wound Skin Appearance) Scarring Assessed,Callus Assessed,Callus ,Scarring -Moisture (Margaret-wound Skin Appearance) Maceration Assessed,Dry/ No Abnormality, Scaly Assessed -Color (Margaret-wound Skin Appearance) No Abnormality Assessed No Abnormality, Assessed -Temperature (Margaret-wound Skin No Abnormality No Abnormality No Abnormality Appearance) (Pt Warm) (Pt Warm) (Pt Warm) -Tenderness on Palpation (Margaret-wound No No Skin Appearance) -Ulcer Cleansing Soap and Water Soap and Water Soap and Water -Foul Odor after Cleansing Yes No No -Anesthetic Used 5% Lidocaine 4% Lidocaine 5% Lidocaine Gel Solution Gel Lower Limb Edema Present Yes No Left Calf (cm) 42.5 41.5 Left Ankle (cm) 24 21.5 WC - Nurse 2 - General Ulcer CM Notes Start: 01/17/22 14:15 Freq: Status: Active Protocol: Activity Type Activity Date Activity User E-sign Co-sign Detail Recorded Client Recorded Date Recorded By Document 01/23/22 09:39 [id number] 01/23/22 09:48 JF Document 01/30/22 08:31 MW [id number] 01/30/22 08:39 MW Document 02/06/22 09:48 MW Desktop 02/06/22 09:50 MW 01/23/22 01/30/22 02/06/22 09:39 08:31 09:48 Wound Center Nurse 2 #1 left heel cluster -Time 09:40 08:37 09:49 -Correct Patient Yes Yes Yes -Correct Side, Site, Position Yes Yes Yes -Correct Procedure Yes Yes Yes -Procedure Performed Yes Yes Yes -Type of Procedure Debridement Debridement Incision & Drainage -Clinical Debridement Subcutaneous Subcutaneous Subcutaneous -Tissue Removed Subcutaneous Subcutaneous Subcutaneous -Post Debridement (cm) - Length 4.0 4.0 4.3 -Post Debridement (cm) - Width 3.8 3.7 3.5 -Post Debridement (cm) - Depth 0.5 0.4 0.4 -Total Square (Post) (cm) 15.20 14.80 15.05 -Area of Debridement (cm) - Length 4.0 4.0 4.3 -Area of Debridement (cm) - Width 3.8 3.7 3.5 -Total Square (Area) (cm) 15.20 14.80 15.05 -Tunneling No No No -Undermining/Tunneling No No No -Circular Undermining No No No -Wound/Ulcer Outcome Not Healed Not Healed Not Healed -Ulcer Cleansing Rinsed/ Rinsed/ Rinsed/ Irrigated with Irrigated with Irrigated with Saline Saline Saline -Foul Odor after Cleansing No No No -Bioengineered Tissue Yes Yes No -Type of Bioengineered Tissue Theraskin Theraskin -Expiration Date 11/25/24 12/13/24 -Product Lot Number [id number] -Percent Used 100 100 -Lot number of Saline Used [id number] -Bleeding Controlled with Pressure Pressure -Treatment Response Procedure Procedure Tolerated Well Tolerated Well -Offloading Yes No No -Type of Offloading Camwalker -Assistive Device(s) Wheelchair -Debridement - Subq, 1st 20sq cm No No Yes -Apply Skin Sub - 1st 25 sq cm - Feet 1 1 -Theraskin (per sq cm) 13 13 Pain Scale: 0-10 Numeric Is Patient Pain Free? Yes Yes Yes WC - Nurse 3 - General Ulcer D/C NN Start: 01/17/22 14:15 Freq: Status: Active Protocol: Activity Type Activity Date Activity User E-sign Co-sign Detail Recorded Client Recorded Date Recorded By Document 01/17/22 14:15 AR [id number] 01/17/22 15:21 AK Document 01/18/22 11:29 AK [id number] 01/18/22 11:37 AK Document 01/23/22 10:07 RB Desktop 01/23/22 10:08 RB Edit Result 01/23/22 10:07 RB (1) Desktop 01/23/22 10:08 RB Document 01/24/22 11:51 ML [id number] 01/24/22 11:52 ML Document 01/25/22 12:33 ML [id number] 01/25/22 12:39 ML Edit Result 01/25/22 12:33 ML (2) [id number] 01/25/22 12:39 ML Document 01/28/22 12:49 ML [id number] 01/28/22 12:53 ML Document 01/30/22 08:44 BMF [id number] 01/30/22 08:46 BMF Document 01/31/22 10:36 ML [id number] 01/31/22 10:39 ML Edit Result 01/31/22 10:36 ML (3) [id number] 01/31/22 12:03 ML Document 02/01/22 11:39 ML [id number] 02/01/22 11:52 ML Document 02/04/22 11:08 ML [id number] 02/04/22 11:49 ML Document 02/05/22 09:45 ML [facility] 02/05/22 09:48 ML Edit Result 02/05/22 09:45 ML (4) [id number] 02/05/22 11:48 ML Document 02/06/22 10:04 BMF [id number] 02/06/22 10:05 BMF (1) Ambulatory Status Ambulatory => Wheelchair (2) #1 left heel cluster - Primary Dressing Covered/Secured with => Dry Gauze & Roll => Gauze,Secured with => Tape (3) #1 left heel cluster - Ulcer Cleansing => Soap and Water - Foul Odor after Cleansing => No - Primary Dressing Applied => Aquacel Extra - Primary Dressing Covered/Secured with => Dry Gauze & Roll => Gauze,Secured with => Tape - Aquacel Extra => 1 (4) #1 left heel cluster - Ulcer Cleansing => Soap and Water - Foul Odor after Cleansing => No - Primary Dressing Applied => Aquacel Extra - Primary Dressing Covered/Secured with => Dry Gauze & Roll => Gauze,Secured with => Tape - Aquacel Extra => 0 01/17/22 01/18/22 01/23/22 14:15 11:29 10:07 Wound Care Nurse 3 #1 left heel cluster -Ulcer Cleansing -Foul Odor after Cleansing -Negative Pressure Wound Therapy -Primary Dressing Applied Promogran Optilok 6.5x10 [place] Matter -Other Dressing -Primary Dressing Covered/Secured with Dry Gauze & Dry Gauze,Dry Roll Gauze, Gauze & Roll Secured with Gauze,Secured Tape with Tape -Other Covering -Aquacel Extra -Optilok 6.5x10 1 -Promogran [place] Matter 0 Left -Compression Wrap Kevin Wrap -Tubular Bandage -Size of Tubigrip Used -Size E ($) -Other kevin Treatment Response Procedure Tolerated Well Vital Signs Temperature (97.8 F-99.1 F) 97 F L Temperature Source Temporal Pulse Rate (60-100) 59 L Pulse Location Monitor Blood Pressure (90/60-120/80) 139/61 H Blood Pressure Mean (mm Hg) 87 Source Monitor Pain Scale: 0-10 Numeric Is Patient Pain Free? Yes Yes Yes WC - Visit Discharge Discharge Condition Stable Stable Ambulatory Status Wheelchair Wheelchair Transportation Private Auto Private Auto Medication Reconcilliation completed & Yes No provided to patient/care provider Clinical Summary of Care Provided Yes Yes Notes: 01/24/22 01/25/22 01/28/22 11:51 12:33 12:49 Wound Care Nurse 3 #1 left heel cluster -Ulcer Cleansing Soap and Water -Foul Odor after Cleansing Yes, Due to Product Use -Negative Pressure Wound Therapy -Primary Dressing Applied -Other Dressing -Primary Dressing Covered/Secured with Dry Gauze & Dry Gauze & Dry Gauze & Roll Gauze, Roll Gauze, Roll Gauze, Secured with Secured with Secured with Tape Tape Tape -Other Covering -Aquacel Extra -Optilok 6.5x10 -Promogran [place] Matter Left -Compression Wrap -Tubular Bandage -Size of Tubigrip Used -Size E ($) -Other Treatment Response Vital Signs Temperature (97.8 F-99.1 F) Temperature Source Pulse Rate (60-100) Pulse Location Blood Pressure (90/60-120/80) Blood Pressure Mean (mm Hg) Source Pain Scale: 0-10 Numeric Is Patient Pain Free? Yes Yes Yes WC - Visit Discharge Discharge Condition Ambulatory Status Transportation Medication Reconcilliation completed & provided to patient/care provider Clinical Summary of Care Provided Notes: 01/30/22 01/31/22 02/01/22 08:44 10:36 11:39 Wound Care Nurse 3 #1 left heel cluster -Ulcer Cleansing Soap and Water Soap and Water -Foul Odor after Cleansing No No -Negative Pressure Wound Therapy -Primary Dressing Applied Aquacel Extra, Aquacel Extra Aquacel Extra Optilok 6.5x10 -Other Dressing theraskin KEVIN,SUPER ABSORB -Primary Dressing Covered/Secured with Dry Gauze & Dry Gauze & Dry Gauze & Roll Gauze Roll Gauze, Roll Gauze, Secured with Secured with Tape Tape -Other Covering abd; heel hat; drsg per rb rn -Aquacel Extra 1 1 0 -Optilok 6.5x10 1 -Promogran [place] Matter Left -Compression Wrap Kevin Wrap -Tubular Bandage -Size of Tubigrip Used -Size E ($) -Other Treatment Response Procedure Tolerated Well Vital Signs Temperature (97.8 F-99.1 F) Temperature Source Pulse Rate (60-100) Pulse Location Blood Pressure (90/60-120/80) Blood Pressure Mean (mm Hg) Source Pain Scale: 0-10 Numeric Is Patient Pain Free? Yes Yes Yes WC - Visit Discharge Discharge Condition Stable Ambulatory Status Ambulatory Transportation Private Auto Medication Reconcilliation completed & provided to patient/care provider Clinical Summary of Care Provided Notes: 02/04/22 02/05/22 02/06/22 11:08 09:45 10:04 Wound Care Nurse 3 #1 left heel cluster -Ulcer Cleansing Soap and Water Soap and Water Rinsed/ Irrigated with Saline -Foul Odor after Cleansing No No No -Negative Pressure Wound Therapy N/A -Primary Dressing Applied Aquacel Extra Aquacel Extra Aquacel Extra, Optilok 6.5x10 -Other Dressing HEEL HAT, ABD -Primary Dressing Covered/Secured with Dry Gauze & Dry Gauze & Dry Gauze & Roll Gauze, Roll Gauze, Roll Gauze, Secured with Secured with Secured with Tape Tape Tape -Other Covering DRSG PER [place] [employer] -Aquacel Extra 0 0 1 -Optilok 6.5x10 1 -Promogran [place] Matter Left -Compression Wrap Kevin Wrap -Tubular Bandage Double Layer -Size of Tubigrip Used Size E -Size E ($) 1 -Other WILL BE APPLIED AFTER HBO Treatment Response Procedure Tolerated Well Vital Signs Temperature (97.8 F-99.1 F) Temperature Source Pulse Rate (60-100) Pulse Location Blood Pressure (90/60-120/80) Blood Pressure Mean (mm Hg) Source Pain Scale: 0-10 Numeric Is Patient Pain Free? Yes Yes Yes WC - Visit Discharge Discharge Condition Stable Ambulatory Status Wheelchair Transportation Medication Reconcilliation completed & provided to patient/care provider Clinical Summary of Care Provided Notes: GOING TO HBO Assessment/Plan Assessment/Plan (1) Osteomyelitis of foot, left, acute: CODE(S): M86.172 - Other acute osteomyelitis, left ankle and foot (2) CAD (coronary artery disease): CODE(S): I25.10 - Atherosclerotic heart disease of [place] coronary artery without angina pectoris (3) Decubitus ulcer of left heel, stage 3: CODE(S): L89.623 - Pressure ulcer of left heel, stage 3 PLAN: Left heel hold TheraSkin after debridement and apply Aquacel extra to wound base with extra absorbent dressing over top and double layer Tubigrip with Kevin wrap over top. follow-up in 1 week
--- NOTE | 2022-02-06 12:40 | PCM.HBO.PN ---
History of Present Illness Date of Service: 02/06/22 Chief Complaint: Osteomyelitis and chronic delayed healing ulcer, left foot History of Wound: The patient presented for a chronic, non-healing wound to left heel with osteomyelitis. A limb and life-threatening infection required emergent surgical intervention on 05-29-2021. 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 He denies fever, chill, nausea, vomiting, pain, odor, redness today. He is keeping weight off of his foot. He continues to take antibiotics as advised and is also undergoing hyperbaric oxygen therapy treatments. He continues on blood thinner due to his deep venous thrombosis and his leg swelling is starting to reduce. Progress of Wound: Wound measurements are about the same he has rolled edges with some maceration. Lots of new cell growth and base of wound which makes it look on even. We will reculture this week since his last cultures were in October and we seem to be at a standstill with movement. We are holding on the TheraSkin because it just keeps falling off after 1 to 2 days. He seems to do better with the Aquacel extra because of the amount of drainage he gets. Patient has a hard time understanding that any kind of pressure on it causes more drainage. Subjective Subjective No concerns Objective Data Objective Data Patient is tolerating 35 of 60 treatments for his left heel decubitus ulcer. Vital signs of been stable on admission and discharge. And is to continue as long as he tolerates treatments well. Vital Signs: Vital Signs Temp Pulse Resp BP O2 Del Method 96.2 F L 55 L 18 118/64 Room Air 02/06/22 10:40 02/06/22 10:40 02/06/22 10:40 02/06/22 10:40 01/30/22 08:11 Oxygen Delivery Method Room Air Body Mass Index (BMI) 33.7 Lab / Micro Data Labs: Laboratory Results - last 24 hr 02/06/22 10:14: POC Glucose 156 H Exam Physical Exam Const alert, oriented x3 and no apparent distress General Appearance: cooperative HEENT normocephalic Eyes Eyes Narrative: Bilateral ear tubes in place. Resp normal respiratory effort and no use of accessory muscles Auscultation: wheezes scattered wheezes and throughout Cardio regular rate and regular rhythm Psych affect normal Nursing Assessment and Debridement Post-Debridement Measurements and Additional Note: Post-Debridement Measurements/Treatment WC - Nurse 1 - General Ulcer Assessment Start: 01/17/22 14:15 Freq: Status: Active Protocol: EVELYN Activity Type Activity Date Activity User E-sign Co-sign Detail Recorded Client Recorded Date Recorded By Document 02/06/22 09:38 DAVID [id number] 02/06/22 09:40 DAVID 02/06/22 09:38 WC - Today's Visit Information Type of service Follow-up Visit (Physician/HEAD START 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 Any new allergies or adverse reactions No Had a fall/change in ADL's that may No increase risk of falls Signs or symptoms of abuse and/or No neglect since last visit Have you been in the hospital since your No last visit? Has dressing in place as prescribed Yes Has compression in place as prescribed Yes Has offloadiing in place as prescribed Yes Experienced any changes in pain level or No management Left Footwear Regular Shoe Right Footwear Removable Cast Walker/Walking Boot Pain Scale: 0-10 Numeric Is Patient Pain Free? Yes - Nurse 1 - General Ulcer Measurement Start: 01/17/22 14:15 Freq: Status: Active Protocol: Activity Type Activity Date Activity User E-sign Co-sign Detail Recorded Client Recorded Date Recorded By Document 02/06/22 09:38 DAVID [id number] 02/06/22 09:40 DAVID 02/06/22 09:38 Wound Center Nurse 1 #1 left heel cluster -Combined with other wound No -Current Size (cm) - Length 4 -Current Size (cm) - Width 3.6 -Current Size (cm) - Depth 0.2 -Total Square Cm 14.4 -Date of Last Picture (Recall this 02/06/22 field) -Photo Taken Yes -Tunneling No -Undermining/Tunneling No -Circular Undermining No -Change in Wound Grade/Stage No -Exudate Amt Large -Exudate Type Serosanguineous -Wound Margin Distinct, Outline Attached -Granulation Amt Large (67-100%) -Granulation Quality [place],Red -Slough/Fibrin Yes -Necrosis Amt Small (1-33%) -Necrotic Tissue Type Adherent Slough -Structure Exposed N/A -Texture (Margaret-wound Skin Appearance) Assessed,Callus -Moisture (Margaret-wound Skin Appearance) No Abnormality, Assessed -Color (Margaret-wound Skin Appearance) No Abnormality, Assessed -Temperature (Margaret-wound Skin No Abnormality Appearance) (Pt Warm) -Tenderness on Palpation (Margaret-wound No Skin Appearance) -Ulcer Cleansing Soap and Water -Foul Odor after Cleansing No -Anesthetic Used 5% Lidocaine Gel Lower Limb Edema Present No Left Calf (cm) 41.5 Left Ankle (cm) 21.5 WC - Nurse 2 - General Ulcer CM Notes Start: 01/17/22 14:15 Freq: Status: Active Protocol: Activity Type Activity Date Activity User E-sign Co-sign Detail Recorded Client Recorded Date Recorded By Document 02/06/22 09:48 MW Desktop 02/06/22 09:50 MW 02/06/22 09:48 Wound Center Nurse 2 #1 left heel cluster -Time 09:49 -Correct Patient Yes -Correct Side, Site, Position Yes -Correct Procedure Yes -Procedure Performed Yes -Type of Procedure Incision & Drainage -Clinical Debridement Subcutaneous -Tissue Removed Subcutaneous -Post Debridement (cm) - Length 4.3 -Post Debridement (cm) - Width 3.5 -Post Debridement (cm) - Depth 0.4 -Total Square (Post) (cm) 15.05 -Area of Debridement (cm) - Length 4.3 -Area of Debridement (cm) - Width 3.5 -Total Square (Area) (cm) 15.05 -Tunneling No -Undermining/Tunneling No -Circular Undermining No -Wound/Ulcer Outcome Not Healed -Ulcer Cleansing Rinsed/ Irrigated with Saline -Foul Odor after Cleansing No -Bioengineered Tissue No -Bleeding Controlled with Pressure -Treatment Response Procedure Tolerated Well -Offloading No -Debridement - Subq, 1st 20sq cm Yes Pain Scale: 0-10 Numeric Is Patient Pain Free? Yes WC - Nurse 3 - General Ulcer D/C NN Start: 01/17/22 14:15 Freq: Status: Active Protocol: Activity Type Activity Date Activity User E-sign Co-sign Detail Recorded Client Recorded Date Recorded By Document 02/04/22 11:08 ML [id number] 02/04/22 11:49 ML Document 02/05/22 09:45 ML [id number] 02/05/22 09:48 ML Document 02/06/22 10:04 [facility] [id number] 02/06/22 10:05 [facility] 02/04/22 02/05/22 02/06/22 11:08 09:45 10:04 Wound Care Nurse 3 #1 left heel cluster -Ulcer Cleansing Soap and Water Soap and Water Rinsed/ Irrigated with Saline -Foul Odor after Cleansing No No No -Negative Pressure Wound Therapy N/A -Primary Dressing Applied Aquacel Extra Aquacel Extra Aquacel Extra, Optilok 6.5x10 -Other Dressing HEEL HAT, ABD -Primary Dressing Covered/Secured with Dry Gauze & Dry Gauze & Dry Gauze & Roll Gauze, Roll Gauze, Roll Gauze, Secured with Secured with Secured with Tape Tape Tape -Other Covering DRSG PER [place] PALS SPECIALIST -Aquacel Extra 0 0 1 -Optilok 6.5x10 1 Left -Compression Wrap Kevin Wrap -Tubular Bandage Double Layer -Size of Tubigrip Used Size E -Size E ($) 1 -Other WILL BE APPLIED AFTER HBO Treatment Response Procedure Tolerated Well Pain Scale: 0-10 Numeric Is Patient Pain Free? Yes Yes Yes - Visit Discharge Discharge Condition Stable Ambulatory Status Wheelchair Notes: GOING TO HBO Assessment/Plan Assessment/Plan (1) Osteomyelitis: CODE(S): M86.9 - Osteomyelitis, unspecified (2) Foot osteomyelitis: CODE(S): M86.9 - Osteomyelitis, unspecified QUALIFIERS: Osteomyelitis type: other acute Laterality: left Qualified Code(s): M86.172 - Other acute osteomyelitis, left ankle and foot (3) Chronic ulcer of left foot with necrosis of bone: CODE(S): L97.524 - Non-pressure chronic ulcer of other part of left foot with necrosis of bone (4) Type 2 diabetes mellitus with diabetic polyneuropathy: CODE(S): E11.42 - Type 2 diabetes mellitus with diabetic polyneuropathy QUALIFIERS: Diabetes mellitus residential insulin use: with oysterman use Qualified Code(s): E11.42 - Type 2 diabetes mellitus with diabetic polyneuropathy; Z79.4 - [facility] (current) use of insulin (5) Diabetic foot ulcer: CODE(S): E11.621 - Type 2 diabetes mellitus with foot ulcer; L97.509 - Non-pressure chronic ulcer of other part of unspecified foot with unspecified severity QUALIFIERS: Diabetic foot ulcer location: heel Diabetes mellitus type: type 2 Laterality: left Non-pressure ulcer stage: with fat layer exposed Qualified Code(s): E11.621 - Type 2 diabetes mellitus with foot ulcer; L97.422 - Non-pressure chronic ulcer of left heel and midfoot with fat layer exposed (6) Bilateral edema of lower extremity: CODE(S): R60.0 - Localized edema PLAN: Plan The patient tolerated hyperbaric oxygen therapy well which will be continued as per his medical plan. We have applied for 20 more treatments on his plan for hyperbaric chamber treatments
[2022-02-07 09:10] LABS: Bedside Glucose 155 mg/dL (74-106)
[2022-02-07 11:35] LABS: Bedside Glucose 140 mg/dL (74-106)
[2022-02-07 12:07] VITALS: BP 130/66; BP 148/83; PULSE 54; PULSE 56; RESP 19; RESP 20; TEMP 36.2
--- NOTE | 2022-02-07 12:31 | PCM.HBO.PN ---
History of Present Illness Date of Service: 02/07/22 Chief Complaint: Osteomyelitis and chronic delayed healing ulcer, left foot History of Wound: The patient presented for a chronic, non-healing wound to left heel with osteomyelitis. A limb and life-threatening infection required emergent surgical intervention on 05-29-2021. 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 He denies fever, chill, nausea, vomiting, pain, odor, redness today. He is keeping weight off of his foot. He continues to take antibiotics as advised and is also undergoing hyperbaric oxygen therapy treatments. He continues on blood thinner due to his deep venous thrombosis and his leg swelling is starting to reduce. Progress of Wound: Today represents the 36th session of hyperbaric oxygen therapy. Hyperbaric oxygen therapy was administered as per the facility's protocol at 2 abena for 90 minutes with no air breaks.? The patient tolerated hyperbaric oxygen therapy well, without complaints or complications.? Upon emergence from the hyperbaric chamber, the patient's vital signs remained stable.? He was discharged in good condition. Objective Data Objective Data Vital Signs: Vital Signs Temp Pulse Resp BP O2 Del Method 97.1 F L 56 L 19 H 130/66 H Room Air 02/07/22 12:07 02/07/22 12:07 02/07/22 12:07 02/07/22 12:07 01/30/22 08:11 Oxygen Delivery Method Room Air Body Mass Index (BMI) 33.7 Lab / Micro Data Labs: Laboratory Results - last 24 hr 02/07/22 08:53: POC Glucose 155 H 02/07/22 11:16: POC Glucose 140 H Micro: Microbiology 02/06/22 09:55 Wound Abcess - Heel, Left Gram Stain - Final 02/06/22 09:55 Wound Abcess - Heel, Left Wound Culture - Preliminary GNR lactose backup engineer Exam Physical Exam Const alert, oriented x3 and no apparent distress General Appearance: cooperative HEENT normocephalic Eyes Eyes Narrative: Bilateral ear tubes in place. 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 Any new allergies or adverse reactions No Had a fall/change in ADL's that may No increase risk of falls Signs or symptoms of abuse and/or No neglect since last visit Have you been in the hospital since your No last visit? Has dressing in place as prescribed Yes Has compression in place as prescribed Yes Has offloadiing in place as prescribed Yes Experienced any changes in pain level or No management Left Footwear Regular Shoe Right Footwear Removable Cast Walker/Walking Boot Pain Scale: 0-10 Numeric Is Patient Pain Free? Yes - Nurse 1 - General Ulcer Measurement Start: 01/17/22 14:15 Freq: Status: Active Protocol: Activity Type Activity Date Activity User E-sign Co-sign Detail Recorded Client Recorded Date Recorded By Document 02/06/22 09:38 DAVID [id number] 02/06/22 09:40 DAVID 02/06/22 09:38 Wound Center Nurse 1 #1 left heel cluster -Combined with other wound No -Current Size (cm) - Length 4 -Current Size (cm) - Width 3.6 -Current Size (cm) - Depth 0.2 -Total Square Cm 14.4 -Date of Last Picture (Recall this 02/06/22 field) -Photo Taken Yes -Tunneling No -Undermining/Tunneling No -Circular Undermining No -Change in Wound Grade/Stage No -Exudate Amt Large -Exudate Type Serosanguineous -Wound Margin Distinct, Outline Attached -Granulation Amt Large (67-100%) -Granulation Quality [place],Red -Slough/Fibrin Yes -Necrosis Amt Small (1-33%) -Necrotic Tissue Type Adherent Slough -Structure Exposed N/A -Texture (Margaret-wound Skin Appearance) Assessed,Callus -Moisture (Margaret-wound Skin Appearance) No Abnormality, Assessed -Color (Margaret-wound Skin Appearance) No Abnormality, Assessed -Temperature (Margaret-wound Skin No Abnormality Appearance) (Pt Warm) -Tenderness on Palpation (Margaret-wound No Skin Appearance) -Ulcer Cleansing Soap and Water -Foul Odor after Cleansing No -Anesthetic Used 5% Lidocaine Gel Lower Limb Edema Present No Left Calf (cm) 41.5 Left Ankle (cm) 21.5 WC - Nurse 2 - General Ulcer CM Notes Start: 01/17/22 14:15 Freq: Status: Active Protocol: Activity Type Activity Date Activity User E-sign Co-sign Detail Recorded Client Recorded Date Recorded By Document 02/06/22 09:48 MW Desktop 02/06/22 09:50 MW 02/06/22 09:48 Wound Center Nurse 2 #1 left heel cluster -Time 09:49 -Correct Patient Yes -Correct Side, Site, Position Yes -Correct Procedure Yes -Procedure Performed Yes -Type of Procedure Incision & Drainage -Clinical Debridement Subcutaneous -Tissue Removed Subcutaneous -Post Debridement (cm) - Length 4.3 -Post Debridement (cm) - Width 3.5 -Post Debridement (cm) - Depth 0.4 -Total Square (Post) (cm) 15.05 -Area of Debridement (cm) - Length 4.3 -Area of Debridement (cm) - Width 3.5 -Total Square (Area) (cm) 15.05 -Tunneling No -Undermining/Tunneling No -Circular Undermining No -Wound/Ulcer Outcome Not Healed -Ulcer Cleansing Rinsed/ Irrigated with Saline -Foul Odor after Cleansing No -Bioengineered Tissue No -Bleeding Controlled with Pressure -Treatment Response Procedure Tolerated Well -Offloading No -Debridement - Subq, 1st 20sq cm Yes Pain Scale: 0-10 Numeric Is Patient Pain Free? Yes WC - Nurse 3 - General Ulcer D/C NN Start: 01/17/22 14:15 Freq: Status: Active Protocol: Activity Type Activity Date Activity User E-sign Co-sign Detail Recorded Client Recorded Date Recorded By Document 02/05/22 09:45 ML [id number] 02/05/22 09:48 ML Document 02/06/22 10:04 [facility] [id number] 02/06/22 10:05 [facility] Document 02/07/22 12:07 ML Desktop 02/07/22 12:10 ML 02/05/22 02/06/22 02/07/22 09:45 10:04 12:07 Wound Care Nurse 3 #1 left heel cluster -Ulcer Cleansing Soap and Water Rinsed/ Soap and Water Irrigated with Saline -Foul Odor after Cleansing No No No -Primary Dressing Applied Aquacel Extra Aquacel Extra, Aquacel Extra Optilok 6.5x10 -Other Dressing HEEL HAT, ABD -Primary Dressing Covered/Secured with Dry Gauze & Dry Gauze & Dry Gauze & Roll Gauze, Roll Gauze, Roll Gauze, Secured with Secured with Secured with Tape Tape Tape -Other Covering DRSG PER [place] MULTICULTURAL SERVICES LIBRARIAN -Aquacel Extra 0 1 0 -Optilok 6.5x10 1 Left -Compression Wrap Kevin Wrap -Tubular Bandage Double Layer -Size of Tubigrip Used Size E -Size E ($) 1 -Other WILL BE APPLIED AFTER HBO Treatment Response Procedure Tolerated Well Pain Scale: 0-10 Numeric Is Patient Pain Free? Yes Yes Yes WC - Visit Discharge Discharge Condition Stable Ambulatory Status Wheelchair Notes: GOING TO HBO Charges/Coding Wound Center CF Procedures HBO Supervision: [id number] Hyperbaric Oxygen; supervision Assessment/Plan Assessment/Plan (1) Other acute osteomyelitis, left ankle and foot: CODE(S): M86.172 - Other acute osteomyelitis, left ankle and foot (2) Osteomyelitis: CODE(S): M86.9 - Osteomyelitis, unspecified (3) Foot osteomyelitis: CODE(S): M86.9 - Osteomyelitis, unspecified QUALIFIERS: Osteomyelitis type: other acute Laterality: left Qualified Code(s): M86.172 - Other acute osteomyelitis, left ankle and foot (4) Chronic ulcer of left foot with necrosis of bone: CODE(S): L97.524 - Non-pressure chronic ulcer of other part of left foot with necrosis of bone (5) Type 2 diabetes mellitus with diabetic polyneuropathy: CODE(S): E11.42 - Type 2 diabetes mellitus with diabetic polyneuropathy QUALIFIERS: Diabetes mellitus intermediate teacher insulin use: with residential use Qualified Code(s): E11.42 - Type 2 diabetes mellitus with diabetic polyneuropathy; Z79.4 - buttermaker continuous churn (current) use of insulin (6) Diabetic foot ulcer: CODE(S): E11.621 - Type 2 diabetes mellitus with foot ulcer; L97.509 - Non-pressure chronic ulcer of other part of unspecified foot with unspecified severity QUALIFIERS: Diabetic foot ulcer location: heel Diabetes mellitus type: type 2 Laterality: left Non-pressure ulcer stage: with fat layer exposed Qualified Code(s): E11.621 - Type 2 diabetes mellitus with foot ulcer; L97.422 - Non-pressure chronic ulcer of left heel and midfoot with fat layer exposed PLAN: Plan The patient tolerated hyperbaric oxygen therapy well which will be continued as per his medical plan. This note was generated with [employer] software. It may contain incorrect words, spelling, and punctuation that were not noted in checking the note before signing.
[2022-02-08 08:20] LABS: Bedside Glucose 146 mg/dL (74-106)
[2022-02-08 09:41] VITALS: BP 145/73; BP 154/67; PULSE 51; PULSE 57; RESP 20; TEMP 36.1
[2022-02-08 11:05] LABS: Bedside Glucose 140 mg/dL (74-106)
--- NOTE | 2022-02-08 12:43 | PCM.HBO.PN ---
History of Present Illness Date of Service: 02/08/22 Chief Complaint: Osteomyelitis and chronic delayed healing ulcer, left foot History of Wound: The patient presented for a chronic, non-healing wound to left heel with osteomyelitis. A limb and life-threatening infection required emergent surgical intervention on 05-29-2021. 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 He denies fever, chill, nausea, vomiting, pain, odor, redness today. He is keeping weight off of his foot. He continues to take antibiotics as advised and is also undergoing hyperbaric oxygen therapy treatments. He continues on blood thinner due to his deep venous thrombosis and his leg swelling is starting to reduce. Progress of Wound: Today represents the 37th session of hyperbaric oxygen therapy. Hyperbaric oxygen therapy was administered as per the facility's protocol at 2 abena for 90 minutes with no air breaks.? The patient tolerated hyperbaric oxygen therapy well, without complaints or complications.? Upon emergence from the hyperbaric chamber, the patient's vital signs remained stable.? He was discharged in good condition. Objective Data Objective Data Vital Signs: Vital Signs Temp Pulse Resp BP O2 Del Method 97.0 F L 57 L 20 H 145/73 H Room Air 02/08/22 09:41 02/08/22 09:41 02/08/22 09:41 02/08/22 09:41 01/30/22 08:11 Oxygen Delivery Method Room Air Body Mass Index (BMI) 33.7 Lab / Micro Data Labs: Laboratory Results - last 24 hr 02/08/22 08:03: POC Glucose 146 H 02/08/22 10:18: POC Glucose 140 H Micro: Microbiology 02/06/22 09:55 Wound Abcess - Heel, Left Gram Stain - Final 02/06/22 09:55 Wound Abcess - Heel, Left Wound Culture - Preliminary Pseudomonas aeroginosa Gram negative baljit Exam Physical Exam Const alert, oriented x3 and no apparent distress General Appearance: cooperative HEENT normocephalic Eyes Eyes Narrative: Bilateral ear tubes in place. 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 Any new allergies or adverse reactions No Had a fall/change in ADL's that may No increase risk of falls Signs or symptoms of abuse and/or No neglect since last visit Have you been in the hospital since your No last visit? Has dressing in place as prescribed Yes Has compression in place as prescribed Yes Has offloadiing in place as prescribed Yes Experienced any changes in pain level or No management Left Footwear Regular Shoe Right Footwear Removable Cast Walker/Walking Boot Pain Scale: 0-10 Numeric Is Patient Pain Free? Yes - Nurse 1 - General Ulcer Measurement Start: 01/17/22 14:15 Freq: Status: Active Protocol: Activity Type Activity Date Activity User E-sign Co-sign Detail Recorded Client Recorded Date Recorded By Document 02/06/22 09:38 DAVID [id number] 02/06/22 09:40 [place] 02/06/22 09:38 Wound Center Nurse 1 #1 left heel cluster -Combined with other wound No -Current Size (cm) - Length 4 -Current Size (cm) - Width 3.6 -Current Size (cm) - Depth 0.2 -Total Square Cm 14.4 -Date of Last Picture (Recall this 02/06/22 field) -Photo Taken Yes -Tunneling No -Undermining/Tunneling No -Circular Undermining No -Change in Wound Grade/Stage No -Exudate Amt Large -Exudate Type Serosanguineous -Wound Margin Distinct, Outline Attached -Granulation Amt Large (67-100%) -Granulation Quality [place],Red -Slough/Fibrin Yes -Necrosis Amt Small (1-33%) -Necrotic Tissue Type Adherent Slough -Structure Exposed N/A -Texture (Margaret-wound Skin Appearance) Assessed,Callus -Moisture (Margaret-wound Skin Appearance) No Abnormality, Assessed -Color (Margaret-wound Skin Appearance) No Abnormality, Assessed -Temperature (Margaret-wound Skin No Abnormality Appearance) (Pt Warm) -Tenderness on Palpation (Margaret-wound No Skin Appearance) -Ulcer Cleansing Soap and Water -Foul Odor after Cleansing No -Anesthetic Used 5% Lidocaine Gel Lower Limb Edema Present No Left Calf (cm) 41.5 Left Ankle (cm) 21.5 WC - Nurse 2 - General Ulcer CM Notes Start: 01/17/22 14:15 Freq: Status: Active Protocol: Activity Type Activity Date Activity User E-sign Co-sign Detail Recorded Client Recorded Date Recorded By Document 02/06/22 09:48 MW Desktop 02/06/22 09:50 MW 02/06/22 09:48 Wound Center Nurse 2 #1 left heel cluster -Time 09:49 -Correct Patient Yes -Correct Side, Site, Position Yes -Correct Procedure Yes -Procedure Performed Yes -Type of Procedure Incision & Drainage -Clinical Debridement Subcutaneous -Tissue Removed Subcutaneous -Post Debridement (cm) - Length 4.3 -Post Debridement (cm) - Width 3.5 -Post Debridement (cm) - Depth 0.4 -Total Square (Post) (cm) 15.05 -Area of Debridement (cm) - Length 4.3 -Area of Debridement (cm) - Width 3.5 -Total Square (Area) (cm) 15.05 -Tunneling No -Undermining/Tunneling No -Circular Undermining No -Wound/Ulcer Outcome Not Healed -Ulcer Cleansing Rinsed/ Irrigated with Saline -Foul Odor after Cleansing No -Bioengineered Tissue No -Bleeding Controlled with Pressure -Treatment Response Procedure Tolerated Well -Offloading No -Debridement - Subq, 1st 20sq cm Yes Pain Scale: 0-10 Numeric Is Patient Pain Free? Yes WC - Nurse 3 - General Ulcer D/C NN Start: 01/17/22 14:15 Freq: Status: Active Protocol: Activity Type Activity Date Activity User E-sign Co-sign Detail Recorded Client Recorded Date Recorded By Document 02/06/22 10:04 [facility] [id number] 02/06/22 10:05 [facility] Document 02/07/22 12:07 ML Desktop 02/07/22 12:10 ML Document 02/08/22 09:41 ML [id number] 02/08/22 09:43 ML 02/06/22 02/07/22 02/08/22 10:04 12:07 09:41 Wound Care Nurse 3 #1 left heel cluster -Ulcer Cleansing Rinsed/ Soap and Water Soap and Water Irrigated with Saline -Foul Odor after Cleansing No No No -Primary Dressing Applied Aquacel Extra, Aquacel Extra Aquacel Extra Optilok 6.5x10 -Other Dressing HEEL HAT, ABD -Primary Dressing Covered/Secured with Dry Gauze & Dry Gauze & Dry Gauze & Roll Gauze, Roll Gauze, Roll Gauze, Secured with Secured with Secured with Tape Tape Tape -Other Covering DRSG PER [place] [employer]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 Yes Yes Yes WC - Visit Discharge Discharge Condition Stable Ambulatory Status Wheelchair Notes: GOING TO [facility] Assessment/Plan Assessment/Plan (1) Other acute osteomyelitis, left ankle and foot: CODE(S): M86.172 - Other acute osteomyelitis, left ankle and foot (2) Osteomyelitis: CODE(S): M86.9 - Osteomyelitis, unspecified (3) Foot osteomyelitis: CODE(S): M86.9 - Osteomyelitis, unspecified QUALIFIERS: Osteomyelitis type: other acute Laterality: left Qualified Code(s): M86.172 - Other acute osteomyelitis, left ankle and foot (4) Chronic ulcer of left foot with necrosis of bone: CODE(S): L97.524 - Non-pressure chronic ulcer of other part of left foot with necrosis of bone (5) Type 2 diabetes mellitus with diabetic polyneuropathy: CODE(S): E11.42 - Type 2 diabetes mellitus with diabetic polyneuropathy QUALIFIERS: Diabetes mellitus supervisor intermediates insulin use: with supervisor intermediates use Qualified Code(s): E11.42 - Type 2 diabetes mellitus with diabetic polyneuropathy; Z79.4 - shelter (current) use of insulin (6) Diabetic foot ulcer: CODE(S): E11.621 - Type 2 diabetes mellitus with foot ulcer; L97.509 - Non-pressure chronic ulcer of other part of unspecified foot with unspecified severity QUALIFIERS: Diabetic foot ulcer location: heel Diabetes mellitus type: type 2 Laterality: left Non-pressure ulcer stage: with fat layer exposed Qualified Code(s): E11.621 - Type 2 diabetes mellitus with foot ulcer; L97.422 - Non-pressure chronic ulcer of left heel and midfoot with fat layer exposed PLAN: Plan The patient tolerated hyperbaric oxygen therapy well which will be continued as per his medical plan. This note was generated with [employer] software. It may contain incorrect words, spelling, and punctuation that were not noted in checking the note before signing.
[2022-02-11 09:15] LABS: Bedside Glucose 178 mg/dL (74-106)
--- NOTE | 2022-02-11 09:19 | PCM.HBO.PN ---
History of Present Illness Date of Service: 02/11/22 Chief Complaint: Osteomyelitis and chronic delayed healing ulcer, left foot History of Wound: The patient presented for a chronic, non-healing wound to left heel with osteomyelitis. A limb and life-threatening infection required emergent surgical intervention on 05-29-2021. 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 He denies fever, chill, nausea, vomiting, pain, odor, redness today. He is keeping weight off of his foot. He continues to take antibiotics as advised and is also undergoing hyperbaric oxygen therapy treatments. He continues on blood thinner due to his deep venous thrombosis and his leg swelling is starting to reduce. Progress of Wound: Today represents the 38th session of hyperbaric oxygen therapy. Hyperbaric oxygen therapy was administered as per the facility's protocol at 2 abena for 90 minutes with no air breaks.? The patient tolerated hyperbaric oxygen therapy well, without complaints or complications.? Upon emergence from the hyperbaric chamber, the patient's vital signs remained stable.? He was discharged in good condition. Objective Data Objective Data Vital Signs: Vital Signs Temp Pulse Resp BP O2 Del Method 97.0 F L 57 L 20 H 145/73 H Room Air 02/08/22 09:41 02/08/22 09:41 02/08/22 09:41 02/08/22 09:41 01/30/22 08:11 Oxygen Delivery Method Room Air Body Mass Index (BMI) 33.7 Lab / Micro Data Labs: Laboratory Results - last 24 hr 02/11/22 08:51: POC Glucose 178 H Micro: Microbiology 02/06/22 09:55 Wound Abcess - Heel, Left Gram Stain - Final 02/06/22 09:55 Wound Abcess - Heel, Left Wound Culture - Final Pseudomonas aeroginosa Klebsiella pneumoniae sp pneum 02/06/22 09:55 Wound Abcess - Heel, Left Anaerobic Culture - Final No anaerobic bacteria isolated. Exam Physical Exam Const alert, oriented x3 and no apparent distress General Appearance: cooperative HEENT normocephalic Eyes Eyes Narrative: Bilateral ear tubes in place. Resp normal respiratory effort and no use of accessory muscles Auscultation: wheezes scattered wheezes and throughout Psych affect normal Nursing Assessment and Debridement Post-Debridement Measurements and Additional Note: Post-Debridement Measurements/Treatment WC - Nurse 3 - General Ulcer D/C NN Start: 01/17/22 14:15 Freq: Status: Active Protocol: Activity Type Activity Date Activity User E-sign Co-sign Detail Recorded Client Recorded Date Recorded By Document 02/08/22 09:41 ML [id number] 02/08/22 09:43 ML 02/08/22 09:41 Wound Care Nurse 3 #1 left heel cluster -Ulcer Cleansing Soap and Water -Foul Odor after Cleansing No -Primary Dressing Applied Aquacel Extra -Primary Dressing Covered/Secured with Dry Gauze & Roll Gauze, Secured with Tape -Aquacel Extra 0 Pain Scale: 0-10 Numeric Is Patient Pain Free? Yes Assessment/Plan Assessment/Plan (1) Other acute osteomyelitis, left ankle and foot: CODE(S): M86.172 - Other acute osteomyelitis, left ankle and foot (2) Osteomyelitis: CODE(S): M86.9 - Osteomyelitis, unspecified (3) Foot osteomyelitis: CODE(S): M86.9 - Osteomyelitis, unspecified QUALIFIERS: Laterality: left Osteomyelitis type: other acute Qualified Code(s): M86.172 - Other acute osteomyelitis, left ankle and foot (4) Chronic ulcer of left foot with necrosis of bone: CODE(S): L97.524 - Non-pressure chronic ulcer of other part of left foot with necrosis of bone (5) Type 2 diabetes mellitus with diabetic polyneuropathy: CODE(S): E11.42 - Type 2 diabetes mellitus with diabetic polyneuropathy QUALIFIERS: Diabetes mellitus senior care insulin use: with middle or intermediate school principal use Qualified Code(s): E11.42 - Type 2 diabetes mellitus with diabetic polyneuropathy; Z79.4 - termite treater (current) use of insulin (6) Diabetic foot ulcer: CODE(S): E11.621 - Type 2 diabetes mellitus with foot ulcer; L97.509 - Non-pressure chronic ulcer of other part of unspecified foot with unspecified severity QUALIFIERS: Diabetes mellitus type: type 2 Diabetic foot ulcer location: heel Laterality: left Non-pressure ulcer stage: with fat layer exposed Qualified Code(s): E11.621 - Type 2 diabetes mellitus with foot ulcer; L97.422 - Non-pressure chronic ulcer of left heel and midfoot with fat layer exposed PLAN: Plan The patient tolerated hyperbaric oxygen therapy well which will be continued as per his medical plan. This note was generated with [employer] dictation software. It may contain incorrect words, spelling, and punctuation that were not noted in checking the note before signing.
[2022-02-11 10:04] VITALS: BP 135/60; BP 136/62; PULSE 54; PULSE 59; RESP 19; TEMP 36
[2022-02-11 11:25] LABS: Bedside Glucose 184 mg/dL (74-106)
[2022-02-13 08:32] VITALS: BP 144/75; PULSE 63; TEMP 36.4; BMI 33.7
[2022-02-13 09:40] LABS: Bedside Glucose 136 mg/dL (74-106)
--- NOTE | 2022-02-13 09:42 | PN.PCM_ITS ---
History of Present Illness Date of Service: 02/13/22 Chief Complaint: Osteomyelitis and chronic delayed healing ulcer, left foot History of Wound: The patient presented for a chronic, non-healing wound to left heel with osteomyelitis. A limb and life-threatening infection required emergent surgical intervention on 05-29-2021. 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 He denies fever, chill, nausea, vomiting, pain, odor, redness today. He is keeping weight off of his foot. He continues to take antibiotics as advised and is also undergoing hyperbaric oxygen therapy treatments. He continues on blood thinner due to his deep venous thrombosis and his leg swelling is starting to reduce. Progress of Wound: The wound is about the same and depth is the same. Patient is getting more new cell growth and base of wound. We went over his lab work from December and shows some renal insufficiency and malnutrition. Patient states he eats a lot of meat but obviously its not enough we will start him on Corwin and suggest 30 days of Corwin and also he needs to start drinking Premier or Glucerna daily. Last A1c was 8.1 in December. Since Friday through Friday we do the dressing changes when he is here for HBO. The problem is on weekends the dressing does not get changed and by Friday its full of slough and wet and macerated. Suggestion is Fridays we will switch the dressing to Promogran with Aquacel extra over with an absorbent dressing for the weekend. Subjective Subjective Patient is hard of hearing but agreeable to plan Samples of Corwin were given to him and he will try to obtain the next 30 days of it. The hospital cells at cost through the cafeteria Objective Data Objective Data Wound looks about the same with macerated around the edge good thing is it sealed at the edge there is no undermining noted new cell growth in the center but still has depth. I think it is going to be important to get his protein levels up for healing purposes Vital Signs: Vital Signs Temp Pulse Resp BP O2 Del Method 97.5 F L 63 19 H 144/75 H Room Air 02/13/22 08:32 02/13/22 08:32 02/11/22 10:04 02/13/22 08:32 01/30/22 08:11 Oxygen Delivery Method Room Air Body Mass Index (BMI) 33.7 Lab / Micro Data Attestation: I reviewed the patient's lab results. Labs: Laboratory Results - last 24 hr 02/13/22 09:21: POC Glucose 136 H Micro: Microbiology 02/06/22 09:55 Wound Abcess - Heel, Left Gram Stain - Final 02/06/22 09:55 Wound Abcess - Heel, Left Wound Culture - Final Pseudomonas aeroginosa Klebsiella pneumoniae sp pneum 02/06/22 09:55 Wound Abcess - Heel, Left Anaerobic Culture - Final No anaerobic bacteria isolated. Physical Exam Const alert, oriented x3, no apparent distress and well nourished General Appearance: cooperative and well developed HEENT normocephalic and EAC's normal Head and Scalp: atraumatic Eyes PERRL and EOMs intact bilaterally Eyes Narrative: Bilateral ear tubes in place. Neck General: trachea midline Resp normal respiratory effort and no use of accessory muscles Effort and Inspection: able to speak in complete sentences Auscultation: wheezes scattered wheezes and throughout Cardio regular rate and regular rhythm Psych affect normal Appearance: grossly normal Speech: normal speech Debridement Note Debridement Note Wound debrided: Left heel decubitus ulcer Laterality: Left Wound Grade/Stage: Stage III Type of Debridement: Excisional debridement Anesthesia Used: 5% Lidocaine Gel Depth: in the subcutaneous layer Percentage of wound debrided: 100 Instrument Used: 7mm curette Tissue Removed: Fibrin Severity: Fat Layer Exposed Amount of bleeding with debridement: Mild Bleeding Controlled with: Compression and gauze Patient tolerated procedure: Patient tolerated procedure well Post-Debridement Measurements and Additional Note: Post-Debridement Measurements/Treatment WC - Nurse 1 - General Ulcer Assessment Start: 01/17/22 14:15 Freq: Status: Active Protocol: EVELYN Activity Type Activity Date Activity User E-sign Co-sign Detail Recorded Client Recorded Date Recorded By Document 01/18/22 11:29 AK [id number] 01/18/22 11:37 AK Document 01/23/22 09:25 DL [id number] 01/23/22 09:33 DL Document 01/30/22 08:11 [facility] [id number] 01/30/22 08:19 BMF Document 02/06/22 09:38 AK [id number] 02/06/22 09:40 AK Document 02/13/22 08:32 [facility] [id number] 02/13/22 08:36 [facility] 01/18/22 01/23/22 01/30/22 11:29 09:25 08:11 - Today's Visit Information Type of service Nurse-only Follow-up Visit Follow-up Visit Visit (Physician/PROFESSOR OF APOLOGETICS (Physician/PROFESSOR OF APOLOGETICS ) ) Arrival Mode Wheelchair Wheelchair Wheelchair Transfer Assistance Manual,None Other Transfer Assist (Other) stand by Patient Identification Verified (Name & Yes Yes Yes ) Patient Requires Transmission-Based No No Precautions Safety Precautions Finger Stick Blood Sugar(mg/dl) (if 160 indicated): Blood Sugar Stated by Patient Height and Weight Body Mass Index (BMI) 33.7 33.7 33.7 BMI Classification Obese Obese Obese Vital Signs Temperature (97.8 F-99.1 F) 97 F L 97.6 F L 97.8 F Temperature Source Temporal Temporal Temporal Pulse Rate (60-100) 59 L 64 57 L Pulse Location Monitor Monitor Monitor Respiratory Rate (12-18) 20 H 16 Respiratory rate source Observation Observation Oxygen Delivery Method Room Air Blood Pressure (90/60-120/80) 139/61 H 121/57 H 121/62 H Blood Pressure Mean (mm Hg) 87 78 81 Source Monitor Monitor Monitor Position Sitting Blood Pressure Location Left Arm History Since Last Visit- (Skip if this is Patient's initial visit) Have you changed medications since your No No No last visit? Any new allergies or adverse reactions No No No Had a fall/change in ADL's that may No No No increase risk of falls Signs or symptoms of abuse and/or No No No neglect since last visit Have you been in the hospital since your No No No last visit? Has dressing in place as prescribed Yes Yes Yes Has compression in place as prescribed Yes Yes Yes Has offloadiing in place as prescribed N/A Yes Yes Experienced any changes in pain level or No No No management Left Footwear Removable Cast Surgical Shoe Removable Cast Walker/Walking with pressure Walker/Walking Boot relief insole Boot Right Footwear Regular Shoe Regular Shoe Pain Scale: 0-10 Numeric Is Patient Pain Free? Yes Yes Yes 02/06/22 02/13/22 09:38 08:32 - Today's Visit Information Type of service Follow-up Visit Follow-up Visit (Physician/PROFESSOR OF APOLOGETICS (Physician/PROFESSOR OF APOLOGETICS ) ) Arrival Mode Wheelchair Wheelchair Transfer Assistance Transfer Assist (Other) Patient Identification Verified (Name & Yes Yes ) Patient Requires Transmission-Based No Precautions Safety Precautions NA Finger Stick Blood Sugar(mg/dl) (if indicated): Blood Sugar Height and Weight Body Mass Index (BMI) 33.7 33.7 BMI Classification Obese Obese Vital Signs Temperature (97.8 F-99.1 F) 96.2 F L 97.5 F L Temperature Source Temporal Temporal Pulse Rate (60-100) 55 L 63 Pulse Location Monitor Monitor Respiratory Rate (12-18) Respiratory rate source Oxygen Delivery Method Blood Pressure (90/60-120/80) 118/64 144/75 H Blood Pressure Mean (mm Hg) 82 98 Source Monitor Position Semi-Fowlers Blood Pressure Location Right Arm History Since Last Visit- (Skip if this is Patient's initial visit) Have you changed medications since your No No last visit? Any new allergies or adverse reactions No No Had a fall/change in ADL's that may No No increase risk of falls Signs or symptoms of abuse and/or No No neglect since last visit Have you been in the hospital since your No last visit? Has dressing in place as prescribed Yes Has compression in place as prescribed Yes N/A Has offloadiing in place as prescribed Yes Yes Experienced any changes in pain level or No No management Left Footwear Regular Shoe Removable Cast Walker/Walking Boot Right Footwear Removable Cast Regular Shoe Walker/Walking Boot Pain Scale: 0-10 Numeric Is Patient Pain Free? Yes Yes WC - Nurse 1 - General Ulcer Measurement Start: 01/17/22 14:15 Freq: Status: Active Protocol: Activity Type Activity Date Activity User E-sign Co-sign Detail Recorded Client Recorded Date Recorded By Document 01/23/22 09:25 DL [id number] 01/23/22 09:33 DL Document 01/30/22 08:11 [facility] [id number] 01/30/22 08:19 BMF Document 02/06/22 09:38 AK [id number] 02/06/22 09:40 AK Document 02/13/22 08:32 BM [id number] 02/13/22 08:36 BMF 01/23/22 01/30/22 02/06/22 09:25 08:11 09:38 Wound Center Nurse 1 #1 left heel cluster -Combined with other wound No No -Current Size (cm) - Length 4 4.1 4 -Current Size (cm) - Width 3.8 3.5 3.6 -Current Size (cm) - Depth 1 0.9 0.2 -Total Square Cm 15.2 14.35 14.4 -Date of Last Picture (Recall this 01/30/22 02/06/22 field) -Photo Taken No Yes Yes -Epithelialization Small 1-33% -Tunneling No No -Undermining/Tunneling Yes No -Undermining/Tunneling Starts (O'clock 10 ) -Undermining/Tunneling Ends (O'clock) 11 -Maximum Distance (cm) 0.9 -Circular Undermining No -Change in Wound Grade/Stage No -Exudate Amt Medium Large Large -Exudate Type Serosanguineous Serosanguineous Serosanguineous -Wound Margin Thickened Distinct, Distinct, Outline Outline Attached Attached -Granulation Amt Medium (34-66%) Large (67-100%) Large (67-100%) -Granulation Quality Red Red [place],Red -Slough/Fibrin Yes Yes -Necrosis Amt Medium (34-66%) Small (1-33%) -Necrotic Tissue Type Adherent Slough Adherent Slough -Structure Exposed N/A N/A -Texture (Margaret-wound Skin Appearance) Scarring Assessed,Callus Assessed,Callus ,Scarring -Moisture (Margaret-wound Skin Appearance) Maceration Assessed,Dry/ No Abnormality, Scaly Assessed -Color (Margaret-wound Skin Appearance) No Abnormality Assessed No Abnormality, Assessed -Temperature (Margaret-wound Skin No Abnormality No Abnormality No Abnormality Appearance) (Pt Warm) (Pt Warm) (Pt Warm) -Tenderness on Palpation (Margaret-wound No No Skin Appearance) -Ulcer Cleansing Soap and Water Soap and Water Soap and Water -Foul Odor after Cleansing Yes No No -Anesthetic Used 5% Lidocaine 4% Lidocaine 5% Lidocaine Gel Solution Gel Lower Limb Edema Present Yes No Left Calf (cm) 42.5 41.5 Left Ankle (cm) 24 21.5 02/13/22 08:32 Wound Center Nurse 1 #1 left heel cluster -Combined with other wound -Current Size (cm) - Length 4 -Current Size (cm) - Width 3.7 -Current Size (cm) - Depth 0.9 -Total Square Cm 14.8 -Date of Last Picture (Recall this field) -Photo Taken -Epithelialization -Tunneling -Undermining/Tunneling -Undermining/Tunneling Starts (O'clock ) -Undermining/Tunneling Ends (O'clock) -Maximum Distance (cm) -Circular Undermining -Change in Wound Grade/Stage -Exudate Amt Large -Exudate Type Serosanguineous -Wound Margin Distinct, Outline Attached -Granulation Amt Large (67-100%) -Granulation Quality Red -Slough/Fibrin -Necrosis Amt -Necrotic Tissue Type -Structure Exposed -Texture (Margaret-wound Skin Appearance) Assessed,Callus ,Scarring -Moisture (Margaret-wound Skin Appearance) No Abnormality, Assessed -Color (Margaret-wound Skin Appearance) No Abnormality, Assessed -Temperature (Margaret-wound Skin No Abnormality Appearance) (Pt Warm) -Tenderness on Palpation (Margaret-wound No Skin Appearance) -Ulcer Cleansing Soap and Water -Foul Odor after Cleansing No -Anesthetic Used 5% Lidocaine Gel Lower Limb Edema Present Left Calf (cm) 42.6 Left Ankle (cm) 24.1 WC - Nurse 2 - General Ulcer CM Notes Start: 01/17/22 14:15 Freq: Status: Active Protocol: Activity Type Activity Date Activity User E-sign Co-sign Detail Recorded Client Recorded Date Recorded By Document 01/23/22 09:39 [id number] 01/23/22 09:48 JF Document 01/30/22 08:31 MW [id number] 01/30/22 08:39 MW Document 02/06/22 09:48 MW Desktop 02/06/22 09:50 MW Document 02/13/22 08:51 MW [id number] 02/13/22 09:00 MW 01/23/22 01/30/22 02/06/22 09:39 08:31 09:48 Wound Center Nurse 2 #1 left heel cluster -Time 09:40 08:37 09:49 -Correct Patient Yes Yes Yes -Correct Side, Site, Position Yes Yes Yes -Correct Procedure Yes Yes Yes -Procedure Performed Yes Yes Yes -Type of Procedure Debridement Debridement Incision & Drainage -Clinical Debridement Subcutaneous Subcutaneous Subcutaneous -Tissue Removed Subcutaneous Subcutaneous Subcutaneous -Post Debridement (cm) - Length 4.0 4.0 4.3 -Post Debridement (cm) - Width 3.8 3.7 3.5 -Post Debridement (cm) - Depth 0.5 0.4 0.4 -Total Square (Post) (cm) 15.20 14.80 15.05 -Area of Debridement (cm) - Length 4.0 4.0 4.3 -Area of Debridement (cm) - Width 3.8 3.7 3.5 -Total Square (Area) (cm) 15.20 14.80 15.05 -Tunneling No No No -Undermining/Tunneling No No No -Circular Undermining No No No -Wound/Ulcer Outcome Not Healed Not Healed Not Healed -Ulcer Cleansing Rinsed/ Rinsed/ Rinsed/ Irrigated with Irrigated with Irrigated with Saline Saline Saline -Foul Odor after Cleansing No No No -Bioengineered Tissue Yes Yes No -Type of Bioengineered Tissue Theraskin Theraskin -Expiration Date 11/25/24 12/13/24 -Product Lot Number [id number] -Percent Used 100 100 -Lot number of Saline Used [id number] -Bleeding Controlled with Pressure Pressure -Treatment Response Procedure Procedure Tolerated Well Tolerated Well -Offloading Yes No No -Type of Offloading Camwalker -Assistive Device(s) Wheelchair -Debridement - Subq, 1st 20sq cm No No Yes -Apply Skin Sub - 1st 25 sq cm - Feet 1 1 -Theraskin (per sq cm) 13 13 Pain Scale: 0-10 Numeric Is Patient Pain Free? Yes Yes Yes 02/13/22 08:51 Wound Center Nurse 2 #1 left heel cluster -Time 08:51 -Correct Patient Yes -Correct Side, Site, Position Yes -Correct Procedure Yes -Procedure Performed Yes -Type of Procedure Debridement -Clinical Debridement Subcutaneous -Tissue Removed Subcutaneous -Post Debridement (cm) - Length 4.2 -Post Debridement (cm) - Width 3.5 -Post Debridement (cm) - Depth 0.5 -Total Square (Post) (cm) 14.70 -Area of Debridement (cm) - Length 4.2 -Area of Debridement (cm) - Width 3.5 -Total Square (Area) (cm) 14.70 -Tunneling No -Undermining/Tunneling No -Circular Undermining No -Wound/Ulcer Outcome Not Healed -Ulcer Cleansing Rinsed/ Irrigated with Saline -Foul Odor after Cleansing No -Bioengineered Tissue No -Type of Bioengineered Tissue -Expiration Date -Product Lot Number -Percent Used -Lot number of Saline Used -Bleeding Controlled with Pressure -Treatment Response Procedure Tolerated Well -Offloading No -Type of Offloading -Assistive Device(s) -Debridement - Subq, 1st 20sq cm Yes -Apply Skin Sub - 1st 25 sq cm - Feet -Theraskin (per sq cm) Pain Scale: 0-10 Numeric Is Patient Pain Free? Yes WC - Nurse 3 - General Ulcer D/C NN Start: 01/17/22 14:15 Freq: Status: Active Protocol: Activity Type Activity Date Activity User E-sign Co-sign Detail Recorded Client Recorded Date Recorded By Document 01/17/22 14:15 AK [id number] 01/17/22 15:21 AK Document 01/18/22 11:29 AK [id number] 01/18/22 11:37 AK Document 01/23/22 10:07 RB Desktop 01/23/22 10:08 RB Edit Result 01/23/22 10:07 RB (1) Desktop 01/23/22 10:08 RB Document 01/24/22 11:51 ML [id number] 01/24/22 11:52 ML Document 01/25/22 12:33 ML [id number] 01/25/22 12:39 ML Edit Result 01/25/22 12:33 ML (2) [id number] 01/25/22 12:39 ML Document 01/28/22 12:49 ML [id number] 01/28/22 12:53 ML Document 01/30/22 08:44 [facility] [id number] 01/30/22 08:46 BMF Document 01/31/22 10:36 ML [id number] 01/31/22 10:39 ML Edit Result 01/31/22 10:36 ML (3) [id number] 01/31/22 12:03 ML Document 02/01/22 11:39 ML [id number] 02/01/22 11:52 ML Document 02/04/22 11:08 ML [id number] 02/04/22 11:49 ML Document 02/05/22 09:45 ML [id number] 02/05/22 09:48 ML Edit Result 02/05/22 09:45 ML (4) [id number] 02/05/22 11:48 ML Document 02/06/22 10:04 [facility] [id number] 02/06/22 10:05 BMF Document 02/07/22 12:07 ML Desktop 02/07/22 12:10 ML Document 02/08/22 09:41 ML [id number] 02/08/22 09:43 ML Edit Result 02/08/22 09:41 ML (5) [id number] 02/08/22 10:47 ML Document 02/11/22 10:04 ML [id number] 02/11/22 10:07 ML Document 02/13/22 09:25 KR [id number] 02/13/22 09:25 KR (1) Ambulatory Status Ambulatory => Wheelchair (2) #1 left heel cluster - Primary Dressing Covered/Secured with => Dry Gauze & Roll => Gauze,Secured with => Tape (3) #1 left heel cluster - Ulcer Cleansing => Soap and Water - Foul Odor after Cleansing => No - Primary Dressing Applied => Aquacel Extra - Primary Dressing Covered/Secured with => Dry Gauze & Roll => Gauze,Secured with => Tape - Aquacel Extra => 1 (4) #1 left heel cluster - Ulcer Cleansing => Soap and Water - Foul Odor after Cleansing => No - Primary Dressing Applied => Aquacel Extra - Primary Dressing Covered/Secured with => Dry Gauze & Roll => Gauze,Secured with => Tape - Aquacel Extra => 0 (5) #1 left heel cluster - Ulcer Cleansing => Soap and Water - Foul Odor after Cleansing => No - Primary Dressing Applied => Aquacel Extra - Primary Dressing Covered/Secured with => Dry Gauze & Roll => Gauze,Secured with => Tape - Aquacel Extra => 0 01/17/22 01/18/22 01/23/22 14:15 11:29 10:07 Wound Care Nurse 3 #1 left heel cluster -Ulcer Cleansing -Foul Odor after Cleansing -Negative Pressure Wound Therapy -Primary Dressing Applied Promogran Optilok 6.5x10 [place] Matter -Other Dressing -Primary Dressing Covered/Secured with Dry Gauze & Dry Gauze,Dry Roll Gauze, Gauze & Roll Secured with Gauze,Secured Tape with Tape -Other Covering -Aquacel Extra -Optilok 6.5x10 1 -Promogran Pay[place] Matter 0 Left -Compression Wrap Kevin Wrap -Tubular Bandage -Size of Tubigrip Used -Size E ($) -Other kevin Treatment Response Procedure Tolerated Well Vital Signs Temperature (97.8 F-99.1 F) 97 F L Temperature Source Temporal Pulse Rate (60-100) 59 L Pulse Location Monitor Blood Pressure (90/60-120/80) 139/61 H Blood Pressure Mean (mm Hg) 87 Source Monitor Pain Scale: 0-10 Numeric Is Patient Pain Free? Yes Yes Yes WC - Visit Discharge Discharge Condition Stable Stable Ambulatory Status Wheelchair Wheelchair Transportation Private Auto Private Auto Medication Reconcilliation completed & Yes No provided to patient/care provider Clinical Summary of Care Provided Yes Yes Notes: 01/24/22 01/25/22 01/28/22 11:51 12:33 12:49 Wound Care Nurse 3 #1 left heel cluster -Ulcer Cleansing Soap and Water -Foul Odor after Cleansing Yes, Due to Product Use -Negative Pressure Wound Therapy -Primary Dressing Applied -Other Dressing -Primary Dressing Covered/Secured with Dry Gauze & Dry Gauze & Dry Gauze & Roll Gauze, Roll Gauze, Roll Gauze, Secured with Secured with Secured with Tape Tape Tape -Other Covering -Aquacel Extra -Optilok 6.5x10 -Promogran [place] Matter Left -Compression Wrap -Tubular Bandage -Size of Tubigrip Used -Size E ($) -Other Treatment Response Vital Signs Temperature (97.8 F-99.1 F) Temperature Source Pulse Rate (60-100) Pulse Location Blood Pressure (90/60-120/80) Blood Pressure Mean (mm Hg) Source Pain Scale: 0-10 Numeric Is Patient Pain Free? Yes Yes Yes WC - Visit Discharge Discharge Condition Ambulatory Status Transportation Medication Reconcilliation completed & provided to patient/care provider Clinical Summary of Care Provided Notes: 01/30/22 01/31/22 02/01/22 08:44 10:36 11:39 Wound Care Nurse 3 #1 left heel cluster -Ulcer Cleansing Soap and Water Soap and Water -Foul Odor after Cleansing No No -Negative Pressure Wound Therapy -Primary Dressing Applied Aquacel Extra, Aquacel Extra Aquacel Extra Optilok 6.5x10 -Other Dressing theraskin KEVIN,SUPER ABSORB -Primary Dressing Covered/Secured with Dry Gauze & Dry Gauze & Dry Gauze & Roll Gauze Roll Gauze, Roll Gauze, Secured with Secured with Tape Tape -Other Covering abd; heel hat; drsg per rb rn -Aquacel Extra 1 1 0 -Optilok 6.5x10 1 -Promogran Pay[place] Matter Left -Compression Wrap Kevin Wrap -Tubular Bandage -Size of Tubigrip Used -Size E ($) -Other Treatment Response Procedure Tolerated Well Vital Signs Temperature (97.8 F-99.1 F) Temperature Source Pulse Rate (60-100) Pulse Location Blood Pressure (90/60-120/80) Blood Pressure Mean (mm Hg) Source Pain Scale: 0-10 Numeric Is Patient Pain Free? Yes Yes Yes WC - Visit Discharge Discharge Condition Stable Ambulatory Status Ambulatory Transportation Private Auto Medication Reconcilliation completed & provided to patient/care provider Clinical Summary of Care Provided Notes: 02/04/22 02/05/22 02/06/22 11:08 09:45 10:04 Wound Care Nurse 3 #1 left heel cluster -Ulcer Cleansing Soap and Water Soap and Water Rinsed/ Irrigated with Saline -Foul Odor after Cleansing No No No -Negative Pressure Wound Therapy N/A -Primary Dressing Applied Aquacel Extra Aquacel Extra Aquacel Extra, Optilok 6.5x10 -Other Dressing HEEL HAT, ABD -Primary Dressing Covered/Secured with Dry Gauze & Dry Gauze & Dry Gauze & Roll Gauze, Roll Gauze, Roll Gauze, Secured with Secured with Secured with Tape Tape Tape -Other Covering DRSG PER [place] [employer] -Aquacel Extra 0 0 1 -Optilok 6.5x10 1 -Promogran Pay[place] Matter Left -Compression Wrap Kevin Wrap -Tubular Bandage Double Layer -Size of Tubigrip Used Size E -Size E ($) 1 -Other WILL BE APPLIED AFTER HBO Treatment Response Procedure Tolerated Well Vital Signs Temperature (97.8 F-99.1 F) Temperature Source Pulse Rate (60-100) Pulse Location Blood Pressure (90/60-120/80) Blood Pressure Mean (mm Hg) Source Pain Scale: 0-10 Numeric Is Patient Pain Free? Yes Yes Yes WC - Visit Discharge Discharge Condition Stable Ambulatory Status Wheelchair Transportation Medication Reconcilliation completed & provided to patient/care provider Clinical Summary of Care Provided Notes: GOING TO [facility] 02/07/22 02/08/22 02/11/22 12:07 09:41 10:04 Wound Care Nurse 3 #1 left heel cluster -Ulcer Cleansing Soap and Water Soap and Water Soap and Water -Foul Odor after Cleansing No No No -Negative Pressure Wound Therapy -Primary Dressing Applied Aquacel Extra Aquacel Extra Aquacel Extra -Other Dressing -Primary Dressing Covered/Secured with Dry Gauze & Dry Gauze & Dry Gauze & Roll Gauze, Roll Gauze, Roll Gauze, Secured with Secured with Secured with Tape Tape Tape -Other Covering -Aquacel Extra 0 0 0 -Optilok 6.5x10 -Promogran Payton Matter Left -Compression Wrap -Tubular Bandage -Size of Tubigrip Used -Size E ($) -Other Treatment Response Vital Signs Temperature (97.8 F-99.1 F) Temperature Source Pulse Rate (60-100) Pulse Location Blood Pressure (90/60-120/80) Blood Pressure Mean (mm Hg) Source Pain Scale: 0-10 Numeric Is Patient Pain Free? Yes Yes Yes - Visit Discharge Discharge Condition Ambulatory Status Transportation Medication Reconcilliation completed & provided to patient/care provider Clinical Summary of Care Provided Notes: 02/13/22 09:25 Wound Care Nurse 3 #1 left heel cluster -Ulcer Cleansing Rinsed/ Irrigated with Saline -Foul Odor after Cleansing -Negative Pressure Wound Therapy -Primary Dressing Applied Aquacel Extra -Other Dressing 3 Abd pads -Primary Dressing Covered/Secured with Dry Gauze, Secured with Tape -Other Covering -Aquacel Extra 1 -Optilok 6.5x10 -Promogran Payton Matter Left -Compression Wrap -Tubular Bandage -Size of Tubigrip Used -Size E ($) -Other Treatment Response Vital Signs Temperature (97.8 F-99.1 F) Temperature Source Pulse Rate (60-100) Pulse Location Blood Pressure (90/60-120/80) Blood Pressure Mean (mm Hg) Source Pain Scale: 0-10 Numeric Is Patient Pain Free? Yes - Visit Discharge Discharge Condition Stable Ambulatory Status Wheelchair Transportation Private Auto Medication Reconcilliation completed & provided to patient/care provider Clinical Summary of Care Provided Notes: Assessment/Plan Assessment/Plan (1) Osteomyelitis of foot, left, acute: CODE(S): M86.172 - Other acute osteomyelitis, left ankle and foot (2) CAD (coronary artery disease): CODE(S): I25.10 - Atherosclerotic heart disease of [place] coronary artery without angina pectoris (3) Decubitus ulcer of left heel, stage 3: CODE(S): L89.623 - Pressure ulcer of left heel, stage 3 PLAN: Left heel hold TheraSkin after debridement and apply Aquacel extra to wound base with extra absorbent dressing over top and double layer Tubigrip with Kevin wrap over top. For Fridays try Promogran to base of wound with Aquacel extra over top do not moisturize either with an absorbent dressing. Follow-up in 1 week
[2022-02-13 10:51] VITALS: BP 135/68; BP 137/62; PULSE 52; PULSE 57; RESP 20; TEMP 36.1; BMI 33.7
--- NOTE | 2022-02-13 11:43 | PCM.HBO.PN ---
History of Present Illness Date of Service: 02/13/22 Chief Complaint: Osteomyelitis and chronic delayed healing ulcer, left foot History of Wound: The patient presented for a chronic, non-healing wound to left heel with osteomyelitis. A limb and life-threatening infection required emergent surgical intervention on 05-29-2021. 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 He denies fever, chill, nausea, vomiting, pain, odor, redness today. He is keeping weight off of his foot. He continues to take antibiotics as advised and is also undergoing hyperbaric oxygen therapy treatments. He continues on blood thinner due to his deep venous thrombosis and his leg swelling is starting to reduce. Progress of Wound: Patient is receiving #39 of 60 HBO treatments. Patient is tolerating them well and vital signs of been very stable on admission and discharge. Subjective Subjective Patient is agreeable to treatments Objective Data Objective Data Patient is tolerating #39 of 60 HBO treatments well Vital Signs: Vital Signs Temp Pulse Resp BP O2 Del Method 97.5 F L 63 19 H 144/75 H Room Air 02/13/22 08:32 02/13/22 08:32 02/11/22 10:04 02/13/22 08:32 01/30/22 08:11 Oxygen Delivery Method Room Air Body Mass Index (BMI) 33.7 Lab / Micro Data Labs: Laboratory Results - last 24 hr 02/13/22 09:21: POC Glucose 136 H Micro: Microbiology 02/06/22 09:55 Wound Abcess - Heel, Left Gram Stain - Final 02/06/22 09:55 Wound Abcess - Heel, Left Wound Culture - Final Pseudomonas aeroginosa Klebsiella pneumoniae sp pneum 02/06/22 09:55 Wound Abcess - Heel, Left Anaerobic Culture - Final No anaerobic bacteria isolated. Exam Physical Exam Const alert, oriented x3 and no apparent distress General Appearance: cooperative HEENT normocephalic Eyes Eyes Narrative: Bilateral ear tubes in place. Resp normal respiratory effort and no use of accessory muscles Auscultation: wheezes scattered wheezes and throughout Cardio regular rate and regular rhythm Psych affect normal Nursing Assessment and Debridement Post-Debridement Measurements and Additional Note: Post-Debridement Measurements/Treatment WC - Nurse 1 - General Ulcer Assessment Start: 01/17/22 14:15 Freq: Status: Active Protocol: LOWEXT Activity Type Activity Date Activity User E-sign Co-sign Detail Recorded Client Recorded Date Recorded By Document 02/13/22 08:32 [facility] [id number] 02/13/22 08:36 [facility] Document 02/13/22 10:51 ML [id number] 02/13/22 10:54 ML 02/13/22 02/13/22 08:32 10:51 WC - Today's Visit Information Type of service Follow-up Visit (Physician/OUTPATIENT FACILITY PHYSICAL THERAPIST ) Arrival Mode Wheelchair Patient Identification Verified (Name & Yes ) Height and Weight Body Mass Index (BMI) 33.7 33.7 BMI Classification Obese Obese Vital Signs Temperature (97.8 F-99.1 F) 97.5 F L Temperature Source Temporal Pulse Rate (60-100) 63 Pulse Location Monitor Blood Pressure (90/60-120/80) 144/75 H Blood Pressure Mean (mm Hg) 98 Source Monitor Position Semi-Fowlers Blood Pressure Location Right Arm History Since Last Visit- (Skip if this is Patient's initial visit) Have you changed medications since your No last visit? Any new allergies or adverse reactions No Had a fall/change in ADL's that may No increase risk of falls Signs or symptoms of abuse and/or No neglect since last visit Has compression in place as prescribed N/A Has offloadiing in place as prescribed Yes Experienced any changes in pain level or No management Left Footwear Removable Cast Walker/Walking Boot Right Footwear Regular Shoe Pain Scale: 0-10 Numeric Is Patient Pain Free? Yes Yes - Nurse 1 - General Ulcer Measurement Start: 01/17/22 14:15 Freq: Status: Active Protocol: Activity Type Activity Date Activity User E-sign Co-sign Detail Recorded Client Recorded Date Recorded By Document 02/13/22 08:32 [facility] [id number] 02/13/22 08:36 [facility] 02/13/22 08:32 Wound Center Nurse 1 #1 left heel cluster -Current Size (cm) - Length 4 -Current Size (cm) - Width 3.7 -Current Size (cm) - Depth 0.9 -Total Square Cm 14.8 -Exudate Amt Large -Exudate Type Serosanguineous -Wound Margin Distinct, Outline Attached -Granulation Amt Large (67-100%) -Granulation Quality Red -Texture (Margaret-wound Skin Appearance) Assessed,Callus ,Scarring -Moisture (Margaret-wound Skin Appearance) No Abnormality, Assessed -Color (Margaret-wound Skin Appearance) No Abnormality, Assessed -Temperature (Margaret-wound Skin No Abnormality Appearance) (Pt Warm) -Tenderness on Palpation (Margaret-wound No Skin Appearance) -Ulcer Cleansing Soap and Water -Foul Odor after Cleansing No -Anesthetic Used 5% Lidocaine Gel Left Calf (cm) 42.6 Left Ankle (cm) 24.1 WC - Nurse 2 - General Ulcer CM Notes Start: 01/17/22 14:15 Freq: Status: Active Protocol: Activity Type Activity Date Activity User E-sign Co-sign Detail Recorded Client Recorded Date Recorded By Document 02/13/22 08:51 MW [id number] 02/13/22 09:00 MW 02/13/22 08:51 Wound Center Nurse 2 #1 left heel cluster -Time 08:51 -Correct Patient Yes -Correct Side, Site, Position Yes -Correct Procedure Yes -Procedure Performed Yes -Type of Procedure Debridement -Clinical Debridement Subcutaneous -Tissue Removed Subcutaneous -Post Debridement (cm) - Length 4.2 -Post Debridement (cm) - Width 3.5 -Post Debridement (cm) - Depth 0.5 -Total Square (Post) (cm) 14.70 -Area of Debridement (cm) - Length 4.2 -Area of Debridement (cm) - Width 3.5 -Total Square (Area) (cm) 14.70 -Tunneling No -Undermining/Tunneling No -Circular Undermining No -Wound/Ulcer Outcome Not Healed -Ulcer Cleansing Rinsed/ Irrigated with Saline -Foul Odor after Cleansing No -Bioengineered Tissue No -Bleeding Controlled with Pressure -Treatment Response Procedure Tolerated Well -Offloading No -Debridement - Subq, 1st 20sq cm Yes Pain Scale: 0-10 Numeric Is Patient Pain Free? Yes WC - Nurse 3 - General Ulcer D/C NN Start: 01/17/22 14:15 Freq: Status: Active Protocol: Activity Type Activity Date Activity User E-sign Co-sign Detail Recorded Client Recorded Date Recorded By Document 02/11/22 10:04 ML [id number] 02/11/22 10:07 ML Document 02/13/22 09:25 KR [id number] 02/13/22 09:25 KR 02/11/22 02/13/22 10:04 09:25 Wound Care Nurse 3 #1 left heel cluster -Ulcer Cleansing Soap and Water Rinsed/ Irrigated with Saline -Foul Odor after Cleansing No -Primary Dressing Applied Aquacel Extra Aquacel Extra -Other Dressing 3 Abd pads -Primary Dressing Covered/Secured with Dry Gauze & Dry Gauze, Roll Gauze, Secured with Secured with Tape Tape -Aquacel Extra 0 1 Pain Scale: 0-10 Numeric Is Patient Pain Free? Yes Yes WC - Visit Discharge Discharge Condition Stable Ambulatory Status Wheelchair Transportation Private Auto Assessment/Plan Assessment/Plan (1) Osteomyelitis: CODE(S): M86.9 - Osteomyelitis, unspecified (2) Foot osteomyelitis: CODE(S): M86.9 - Osteomyelitis, unspecified QUALIFIERS: Laterality: left Osteomyelitis type: other acute Qualified Code(s): M86.172 - Other acute osteomyelitis, left ankle and foot (3) Chronic ulcer of left foot with necrosis of bone: CODE(S): L97.524 - Non-pressure chronic ulcer of other part of left foot with necrosis of bone (4) Type 2 diabetes mellitus with diabetic polyneuropathy: CODE(S): E11.42 - Type 2 diabetes mellitus with diabetic polyneuropathy QUALIFIERS: Diabetes mellitus terminal operator insulin use: with halfway use Qualified Code(s): E11.42 - Type 2 diabetes mellitus with diabetic polyneuropathy; Z79.4 - termite exterminator (current) use of insulin (5) Diabetic foot ulcer: CODE(S): E11.621 - Type 2 diabetes mellitus with foot ulcer; L97.509 - Non-pressure chronic ulcer of other part of unspecified foot with unspecified severity QUALIFIERS: Diabetes mellitus type: type 2 Diabetic foot ulcer location: heel Laterality: left Non-pressure ulcer stage: with fat layer exposed Qualified Code(s): E11.621 - Type 2 diabetes mellitus with foot ulcer; L97.422 - Non-pressure chronic ulcer of left heel and midfoot with fat layer exposed (6) Bilateral edema of lower extremity: CODE(S): R60.0 - Localized edema PLAN: Plan The patient tolerated hyperbaric oxygen therapy well which will be continued as per his medical plan. We have applied for 20 more treatments on his plan for hyperbaric chamber treatments
[2022-02-13 11:50] LABS: Bedside Glucose 191 mg/dL (74-106)
[2022-02-15 09:51] LABS: Bedside Glucose 227 mg/dL (74-106)
[2022-02-15 10:55] VITALS: BP 133/65; BP 135/54; PULSE 56; RESP 18; RESP 19; TEMP 36.1; TEMP 36.3
--- NOTE | 2022-02-15 13:07 | HBO.PN.PCM_ITS ---
History of Present Illness Date of Service: 02/15/22 Chief Complaint: Osteomyelitis and chronic delayed healing ulcer, left foot History of Wound: The patient presented for a chronic, non-healing wound to left heel with osteomyelitis. A limb and life-threatening infection required emergent surgical intervention on 05-29-2021. 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 He denies fever, chill, nausea, vomiting, pain, odor, redness today. He is keeping weight off of his foot. He continues to take antibiotics as advised and is also undergoing hyperbaric oxygen therapy treatments. He continues on blood thinner due to his deep venous thrombosis and his leg swelling is starting to reduce. Progress of Wound: Patient is receiving #39 of 60 HBO treatments. Patient is tolerating them well and vital signs of been very stable on admission and discharge. Objective Data Objective Data Vital Signs: Vital Signs Temp Pulse Resp BP O2 Del Method 97.3 F L 56 L 18 135/54 H Room Air 02/15/22 10:55 02/15/22 10:55 02/15/22 10:55 02/15/22 10:55 01/30/22 08:11 Oxygen Delivery Method Room Air Body Mass Index (BMI) 33.7 Lab / Micro Data Labs: Laboratory Results - last 24 hr 02/15/22 09:33: POC Glucose 227 H Micro: Microbiology 02/06/22 09:55 Wound Abcess - Heel, Left Gram Stain - Final 02/06/22 09:55 Wound Abcess - Heel, Left Wound Culture - Final Pseudomonas aeroginosa Klebsiella pneumoniae sp pneum 02/06/22 09:55 Wound Abcess - Heel, Left Anaerobic Culture - Final No anaerobic bacteria isolated. Exam Physical Exam Const alert, oriented x3 and no apparent distress General Appearance: cooperative HEENT normocephalic Eyes Eyes Narrative: Bilateral ear tubes in place. Resp normal respiratory effort and no use of accessory muscles Auscultation: wheezes scattered wheezes and throughout Psych affect normal Nursing Assessment and Debridement Post-Debridement Measurements and Additional Note: Post-Debridement Measurements/Treatment WC - Nurse 1 - General Ulcer Assessment Start: 01/17/22 14:15 Freq: Status: Active Protocol: [email or web address].LOWEXT Activity Type Activity Date Activity User E-sign Co-sign Detail Recorded Client Recorded Date Recorded By Document 02/13/22 08:32 [facility] [id number] 02/13/22 08:36 [facility] Document 02/13/22 10:51 ML [id number] 02/13/22 10:54 ML 02/13/22 02/13/22 08:32 10:51 - Today's Visit Information Type of service Follow-up Visit (Physician/REPRODUCTIVE SURGEON ) Arrival Mode Wheelchair Patient Identification Verified (Name & Yes ) Height and Weight Body Mass Index (BMI) 33.7 33.7 BMI Classification Obese Obese Vital Signs Temperature (97.8 F-99.1 F) 97.5 F L Temperature Source Temporal Pulse Rate (60-100) 63 Pulse Location Monitor Blood Pressure (90/60-120/80) 144/75 H Blood Pressure Mean (mm Hg) 98 Source Monitor Position Semi-Fowlers Blood Pressure Location Right Arm History Since Last Visit- (Skip if this is Patient's initial visit) Have you changed medications since your No last visit? Any new allergies or adverse reactions No Had a fall/change in ADL's that may No increase risk of falls Signs or symptoms of abuse and/or No neglect since last visit Has compression in place as prescribed N/A Has offloadiing in place as prescribed Yes Experienced any changes in pain level or No management Left Footwear Removable Cast Walker/Walking Boot Right Footwear Regular Shoe Pain Scale: 0-10 Numeric Is Patient Pain Free? Yes Yes - Nurse 1 - General Ulcer Measurement Start: 01/17/22 14:15 Freq: Status: Active Protocol: Activity Type Activity Date Activity User E-sign Co-sign Detail Recorded Client Recorded Date Recorded By Document 02/13/22 08:32 [facility] [id number] 02/13/22 08:36 [facility] 02/13/22 08:32 Wound Center Nurse 1 #1 left heel cluster -Current Size (cm) - Length 4 -Current Size (cm) - Width 3.7 -Current Size (cm) - Depth 0.9 -Total Square Cm 14.8 -Exudate Amt Large -Exudate Type Serosanguineous -Wound Margin Distinct, Outline Attached -Granulation Amt Large (67-100%) -Granulation Quality Red -Texture (Margaret-wound Skin Appearance) Assessed,Callus ,Scarring -Moisture (Margaret-wound Skin Appearance) No Abnormality, Assessed -Color (Margaret-wound Skin Appearance) No Abnormality, Assessed -Temperature (Margaret-wound Skin No Abnormality Appearance) (Pt Warm) -Tenderness on Palpation (Margaret-wound No Skin Appearance) -Ulcer Cleansing Soap and Water -Foul Odor after Cleansing No -Anesthetic Used 5% Lidocaine Gel Left Calf (cm) 42.6 Left Ankle (cm) 24.1 WC - Nurse 2 - General Ulcer CM Notes Start: 01/17/22 14:15 Freq: Status: Active Protocol: Activity Type Activity Date Activity User E-sign Co-sign Detail Recorded Client Recorded Date Recorded By Document 02/13/22 08:51 MW [id number] 02/13/22 09:00 MW 02/13/22 08:51 Wound Center Nurse 2 #1 left heel cluster -Time 08:51 -Correct Patient Yes -Correct Side, Site, Position Yes -Correct Procedure Yes -Procedure Performed Yes -Type of Procedure Debridement -Clinical Debridement Subcutaneous -Tissue Removed Subcutaneous -Post Debridement (cm) - Length 4.2 -Post Debridement (cm) - Width 3.5 -Post Debridement (cm) - Depth 0.5 -Total Square (Post) (cm) 14.70 -Area of Debridement (cm) - Length 4.2 -Area of Debridement (cm) - Width 3.5 -Total Square (Area) (cm) 14.70 -Tunneling No -Undermining/Tunneling No -Circular Undermining No -Wound/Ulcer Outcome Not Healed -Ulcer Cleansing Rinsed/ Irrigated with Saline -Foul Odor after Cleansing No -Bioengineered Tissue No -Bleeding Controlled with Pressure -Treatment Response Procedure Tolerated Well -Offloading No -Debridement - Subq, 1st 20sq cm Yes Pain Scale: 0-10 Numeric Is Patient Pain Free? Yes WC - Nurse 3 - General Ulcer D/C NN Start: 01/17/22 14:15 Freq: Status: Active Protocol: Activity Type Activity Date Activity User E-sign Co-sign Detail Recorded Client Recorded Date Recorded By Document 02/13/22 09:25 KR [id number] 02/13/22 09:25 KR Document 02/15/22 10:55 ML [id number] 02/15/22 10:58 ML 02/13/22 02/15/22 09:25 10:55 Wound Care Nurse 3 #1 left heel cluster -Ulcer Cleansing Rinsed/ Soap and Water Irrigated with Saline -Foul Odor after Cleansing No -Primary Dressing Applied Aquacel Extra Aquacel Extra, Promogran -Other Dressing 3 Abd pads -Primary Dressing Covered/Secured with Dry Gauze, Dry Gauze & Secured with Roll Gauze, Tape Secured with Tape -Aquacel Extra 1 1 -Promogran 1 Pain Scale: 0-10 Numeric Is Patient Pain Free? Yes Yes WC - Visit Discharge Discharge Condition Stable Ambulatory Status Wheelchair Transportation Private Auto Assessment/Plan Assessment/Plan (1) Other acute osteomyelitis, left ankle and foot: CODE(S): M86.172 - Other acute osteomyelitis, left ankle and foot (2) Osteomyelitis: CODE(S): M86.9 - Osteomyelitis, unspecified (3) Foot osteomyelitis: CODE(S): M86.9 - Osteomyelitis, unspecified QUALIFIERS: Osteomyelitis type: other acute Laterality: left Qualified Code(s): M86.172 - Other acute osteomyelitis, left ankle and foot (4) Chronic ulcer of left foot with necrosis of bone: CODE(S): L97.524 - Non-pressure chronic ulcer of other part of left foot with necrosis of bone (5) Type 2 diabetes mellitus with diabetic polyneuropathy: CODE(S): E11.42 - Type 2 diabetes mellitus with diabetic polyneuropathy QUALIFIERS: Diabetes mellitus assisted insulin use: with meterman use Qualified Code(s): E11.42 - Type 2 diabetes mellitus with diabetic polyneuropathy; Z79.4 - intermediate card tender (current) use of insulin (6) Diabetic foot ulcer: CODE(S): E11.621 - Type 2 diabetes mellitus with foot ulcer; L97.509 - Non-pressure chronic ulcer of other part of unspecified foot with unspecified severity QUALIFIERS: Diabetic foot ulcer location: heel Diabetes mellitus type: type 2 Laterality: left Non-pressure ulcer stage: with fat layer exposed Qualified Code(s): E11.621 - Type 2 diabetes mellitus with foot ulcer; L97.422 - Non-pressure chronic ulcer of left heel and midfoot with fat layer exposed PLAN: Plan The patient tolerated hyperbaric oxygen therapy well which will be continued as per his medical plan. This note was generated with [employer] software. It may contain incorrect words, spelling, and punctuation that were not noted in checking the note before signing.
== END 2022-02-15 23:59 | disposition home or self-care (01) ==
LOC: WC 09:00
PROVIDERS: Podiatrist; Referring Provider Podiatrist Foot & Ankle Surgery; Visit Provider Nurse Practitioner
DX: E11.621 Type 2 diabetes mellitus with foot ulcer (principal); L89.623 Pressure ulcer of left heel, stage 3; L97.524 Non-pressure chronic ulcer of other part of left foot with necrosis of bone; M86.172 Other acute osteomyelitis, left ankle and foot; E11.42 Type 2 diabetes mellitus with diabetic polyneuropathy; Z79.4 Long term (current) use of insulin; Z86.718 Personal history of other venous thrombosis and embolism; H91.90 Unspecified hearing loss, unspecified ear; R60.0 Localized edema
CPT/HCPCS: 11042; 15275; 82962; 87070; 87075; 87077; 87186; 87205; 99183; Q4121; G0277

== ENCOUNTER 2022-03-12 09:15 | Outpatient (RCR) | payer MEDICARE, BC, SELFPAY ==
[2022-02-16 01:09] VITALS: BP 133/65; PULSE 56; RESP 19; TEMP 36.1; BMI 33.7
[2022-02-18 09:11] LABS: Bedside Glucose 168 mg/dL (74-106)
--- NOTE | 2022-02-18 09:38 | PCM.HBO.PN ---
History of Present Illness Date of Service: 02/18/22 Chief Complaint: Osteomyelitis and chronic delayed healing ulcer, left foot History of Wound: The patient presented for a chronic, non-healing wound to left heel with osteomyelitis. A limb and life-threatening infection required emergent surgical intervention on 05-29-2021. 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 He denies fever, chill, nausea, vomiting, pain, odor, redness today. He is keeping weight off of his foot. He continues to take antibiotics as advised and is also undergoing hyperbaric oxygen therapy treatments. He continues on blood thinner due to his deep venous thrombosis and his leg swelling is starting to reduce. Progress of Wound: Today represents the 41st session. Hyperbaric oxygen therapy was administered as per the facility's protocol.? Hyperbaric oxygen therapy was administered? for 90 minutes with no air breaks.? The patient tolerated hyperbaric oxygen therapy well, without complaints or complications.? Upon emergence from the hyperbaric chamber, the patient's vital signs remained stable.? He was discharged in good condition. Subjective Subjective Patient has no concerns Objective Data Objective Data Vital Signs: Vital Signs Temp Pulse Resp BP 97.0 F L 56 L 19 H 133/65 H 02/16/22 01:09 02/16/22 01:09 02/16/22 01:09 02/16/22 01:09 Body Mass Index (BMI) 33.7 Lab / Micro Data Labs: Laboratory Results - last 24 hr 02/18/22 08:53: POC Glucose 168 H Exam Physical Exam Const alert, oriented x3 and no apparent distress General Appearance: cooperative HEENT normocephalic Eyes Eyes Narrative: Bilateral ear tubes in place. Resp normal respiratory effort and no use of accessory muscles Auscultation: wheezes scattered wheezes and throughout Psych affect normal Assessment/Plan Assessment/Plan (1) Other acute osteomyelitis, left ankle and foot: CODE(S): M86.172 - Other acute osteomyelitis, left ankle and foot (2) Osteomyelitis: CODE(S): M86.9 - Osteomyelitis, unspecified (3) Foot osteomyelitis: CODE(S): M86.9 - Osteomyelitis, unspecified QUALIFIERS: Osteomyelitis type: other acute Laterality: left Qualified Code(s): M86.172 - Other acute osteomyelitis, left ankle and foot (4) Chronic ulcer of left foot with necrosis of bone: CODE(S): L97.524 - Non-pressure chronic ulcer of other part of left foot with necrosis of bone (5) Type 2 diabetes mellitus with diabetic polyneuropathy: CODE(S): E11.42 - Type 2 diabetes mellitus with diabetic polyneuropathy QUALIFIERS: Diabetes mellitus nursing home insulin use: with longitudinal float operator use Qualified Code(s): E11.42 - Type 2 diabetes mellitus with diabetic polyneuropathy; Z79.4 - keno terminal operator (current) use of insulin (6) Diabetic foot ulcer: CODE(S): E11.621 - Type 2 diabetes mellitus with foot ulcer; L97.509 - Non-pressure chronic ulcer of other part of unspecified foot with unspecified severity QUALIFIERS: Diabetic foot ulcer location: heel Diabetes mellitus type: type 2 Laterality: left Non-pressure ulcer stage: with fat layer exposed Qualified Code(s): E11.621 - Type 2 diabetes mellitus with foot ulcer; L97.422 - Non-pressure chronic ulcer of left heel and midfoot with fat layer exposed PLAN: Plan The patient tolerated hyperbaric oxygen therapy well which will be continued as per his medical plan. This note was generated with [employer] software. It may contain incorrect words, spelling, and punctuation that were not noted in checking the note before signing.
[2022-02-18 09:52] VITALS: BP 123/66; BP 140/65; PULSE 53; PULSE 69; RESP 19; TEMP 36.1; TEMP 36.3
[2022-02-18 11:20] LABS: Bedside Glucose 163 mg/dL (74-106)
[2022-02-19 09:15] LABS: Bedside Glucose 177 mg/dL (74-106)
[2022-02-19 11:25] LABS: Bedside Glucose 199 mg/dL (74-106)
[2022-02-19 11:41] VITALS: BP 114/63; BP 134/68; PULSE 52; PULSE 53; RESP 20; TEMP 36.6
--- NOTE | 2022-02-19 22:42 | HBO.PN.PCM_ITS ---
History of Present Illness Date of Service: 02/19/22 Chief Complaint: Osteomyelitis and chronic delayed healing ulcer, left foot History of Wound: The patient presented for a chronic, non-healing wound to left heel with osteomyelitis. A limb and life-threatening infection required emergent surgical intervention on 05-29-2021. 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 He denies fever, chill, nausea, vomiting, pain, odor, redness today. He is keeping weight off of his foot. He continues to take antibiotics as advised and is also undergoing hyperbaric oxygen therapy treatments. He continues on blood thinner due to his deep venous thrombosis and his leg swelling is starting to reduce. Progress of Wound: Today represents the 42nd session of hyperbaric oxygen therapy, of a planned 60 such sessions. Hyperbaric oxygen therapy was administered as per the facility's protocol.? Hyperbaric oxygen therapy was administered? for 90 minutes at 2 abena with no air breaks.? The patient tolerated hyperbaric oxygen therapy well, without complaints or complications.? Upon emergence from the hyperbaric chamber, the patient's vital signs remained stable.? Pre- and post- blood glucose measurements are documented elsewhere. He was discharged in good condition. Objective Data Objective Data Vital Signs: Vital Signs Temp Pulse Resp BP 97.8 F 53 L 20 H 134/68 H 02/19/22 11:41 02/19/22 11:41 02/19/22 11:41 02/19/22 11:41 Body Mass Index (BMI) 33.7 Lab / Micro Data Labs: Laboratory Results - last 24 hr 02/19/22 08:58: POC Glucose 177 H 02/19/22 11:07: POC Glucose 199 H Exam Physical Exam Const alert, oriented x3, no apparent distress and well nourished General Appearance: cooperative and well developed HEENT normocephalic and EAC's normal Head and Scalp: atraumatic External Auditory Canal: EAC's normal Eyes PERRL and EOMs intact bilaterally Neck no JVD Resp normal respiratory effort and no use of accessory muscles Effort and Inspection: able to speak in complete sentences GI non-distended Psych affect normal Appearance: grossly normal Nursing Assessment and Debridement Post-Debridement Measurements and Additional Note: Post-Debridement Measurements/Treatment WC - Nurse 3 - General Ulcer D/C NN Start: 02/18/22 09:52 Freq: Status: Active Protocol: Activity Type Activity Date Activity User E-sign Co-sign Detail Recorded Client Recorded Date Recorded By Document 02/18/22 09:52 ML [id number] 02/18/22 09:57 ML Document 02/19/22 11:41 ML [id number] 02/19/22 11:47 ML 02/18/22 02/19/22 09:52 11:41 Wound Care Nurse 3 #1 left heel cluster -Ulcer Cleansing Soap and Water Soap and Water -Foul Odor after Cleansing No No -Primary Dressing Applied Aquacel Extra Aquacel Extra -Other Dressing 2 KASI -Primary Dressing Covered/Secured with Dry Gauze & Dry Gauze & Roll Gauze, Roll Gauze, Secured with Secured with Tape Tape -Aquacel Extra 0 0 Pain Scale: 0-10 Numeric Is Patient Pain Free? Yes Yes Assessment/Plan Assessment/Plan (1) Other acute osteomyelitis, left ankle and foot: CODE(S): M86.172 - Other acute osteomyelitis, left ankle and foot (2) Osteomyelitis: CODE(S): M86.9 - Osteomyelitis, unspecified (3) Foot osteomyelitis: CODE(S): M86.9 - Osteomyelitis, unspecified QUALIFIERS: Osteomyelitis type: other acute Laterality: left Qualified Code(s): M86.172 - Other acute osteomyelitis, left ankle and foot (4) Chronic ulcer of left foot with necrosis of bone: CODE(S): L97.524 - Non-pressure chronic ulcer of other part of left foot with necrosis of bone (5) Type 2 diabetes mellitus with diabetic polyneuropathy: CODE(S): E11.42 - Type 2 diabetes mellitus with diabetic polyneuropathy QUALIFIERS: Diabetes mellitus assisted insulin use: with termite control service representative use Qualified Code(s): E11.42 - Type 2 diabetes mellitus with diabetic polyneuropathy; Z79.4 - termite treater (current) use of insulin (6) Diabetic foot ulcer: CODE(S): E11.621 - Type 2 diabetes mellitus with foot ulcer; L97.509 - Non-pressure chronic ulcer of other part of unspecified foot with unspecified severity QUALIFIERS: Diabetic foot ulcer location: heel Diabetes mellitus type: type 2 Laterality: left Non-pressure ulcer stage: with fat layer exposed Qualified Code(s): E11.621 - Type 2 diabetes mellitus with foot ulcer; L97.422 - Non-pressure chronic ulcer of left heel and midfoot with fat layer exposed PLAN: Plan The patient tolerated hyperbaric oxygen therapy well which will be continued as per his medical plan. This note was generated with [email or web address] dictation software. It may contain incorrect words, spelling, and punctuation that were not noted in checking the note before signing.
[2022-02-20 08:19] VITALS: BP 107/55; PULSE 59; TEMP 36.8; BMI 33.7
[2022-02-20 09:11] LABS: Bedside Glucose 223 mg/dL (74-106)
--- NOTE | 2022-02-20 10:59 | PCM.WC.PN ---
History of Present Illness Date of Service: 02/20/22 Chief Complaint: Osteomyelitis and chronic delayed healing ulcer, left foot History of Wound: The patient presented for a chronic, non-healing wound to left heel with osteomyelitis. A limb and life-threatening infection required emergent surgical intervention on 05-29-2021. 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 He denies fever, chill, nausea, vomiting, pain, odor, redness today. He is keeping weight off of his foot. He continues to take antibiotics as advised and is also undergoing hyperbaric oxygen therapy treatments. He continues on blood thinner due to his deep venous thrombosis and his leg swelling is starting to reduce. Progress of Wound: Today the wound measures slightly smaller seeing more bumps of new tissue surfacing closer to the edge. Less maceration around the edge of the wound. Been applying Promogran with Aquacel extra over top for absorbency. Patient insists on walking on it and it drains a lot. This seems to be helping with healing and the maceration problem. Patient is also still getting HBO treatments and tolerating all of it very well. Subjective Subjective Patient seems to be happy with his treatment so far Objective Data Objective Data So no sign of infection patient is finished his antibiotic therapy wound is slightly smaller healing better getting bigger mounds of new tissue growing in the heel. Vital Signs: Vital Signs Temp Pulse Resp BP 98.2 F 59 L 20 H 107/55 L 02/20/22 08:19 02/20/22 08:19 02/19/22 11:41 02/20/22 08:19 Body Mass Index (BMI) 33.7 Lab / Micro Data Attestation: I reviewed the patient's lab results. Labs: Laboratory Results - last 24 hr 02/19/22 11:07: POC Glucose 199 H 02/20/22 08:53: POC Glucose 223 H Physical Exam Const alert, oriented x3, no apparent distress and well nourished General Appearance: cooperative and well developed HEENT normocephalic and EAC's normal Head and Scalp: atraumatic External Auditory Canal: EAC's normal Eyes PERRL and EOMs intact bilaterally Neck no JVD Resp normal respiratory effort and no use of accessory muscles Effort and Inspection: able to speak in complete sentences GI non-distended Psych affect normal Appearance: grossly normal Debridement Note Debridement Note Wound debrided: Left heel decubitus ulcer Laterality: Left Wound Grade/Stage: Stage III Type of Debridement: Excisional debridement Anesthesia Used: 5% Lidocaine Gel Percentage of wound debrided: 100 Instrument Used: 7mm curette Tissue Removed: Fibrin and some devitalized tissue Severity: Fat Layer Exposed Amount of bleeding with debridement: Mild Bleeding Controlled with: Compression and gauze Patient tolerated procedure: Patient tolerated procedure well Post-Debridement Measurements and Additional Note: Post-Debridement Measurements/Treatment JANESSA - Nurse 1 - General Ulcer Assessment Start: 02/18/22 09:52 Freq: Status: Active Protocol: EVELYN Activity Type Activity Date Activity User E-sign Co-sign Detail Recorded Client Recorded Date Recorded By Document 02/20/22 08:19 VASQUEZ [id number] 02/20/22 08:24 VASQUEZ 02/20/22 08:19 JANESSA - Today's Visit Information Type of service Follow-up Visit (Physician/SENIOR PROCUREMENT SPECIALIST ) Arrival Mode Wheelchair Patient Identification Verified (Name & Yes ) Height and Weight Body Mass Index (BMI) 33.7 BMI Classification Obese Vital Signs Temperature (97.8 F-99.1 F) 98.2 F Temperature Source Temporal Pulse Rate (60-100) 59 L Pulse Location Monitor Blood Pressure (90/60-120/80) 107/55 L Blood Pressure Mean (mm Hg) 72 Source Monitor Position Sitting Blood Pressure Location Right Arm History Since Last Visit- (Skip if this is Patient's initial visit) Have you changed medications since your No last visit? Any new allergies or adverse reactions No Had a fall/change in ADL's that may No increase risk of falls Signs or symptoms of abuse and/or No neglect since last visit Have you been in the hospital since your No last visit? Has dressing in place as prescribed Yes Has compression in place as prescribed N/A Has offloadiing in place as prescribed N/A Experienced any changes in pain level or No management Left Footwear Removable Cast Walker/Walking Boot Right Footwear Regular Shoe Pain Scale: 0-10 Numeric Is Patient Pain Free? Yes JANESSA Vasquez Nurse 1 - General Ulcer Measurement Start: 02/18/22 09:52 Freq: Status: Active Protocol: Activity Type Activity Date Activity User E-sign Co-sign Detail Recorded Client Recorded Date Recorded By Document 02/20/22 08:19 KR [id number] 02/20/22 08:24 KR 02/20/22 08:19 Wound Center Nurse 1 #1 left heel cluster -Current Size (cm) - Length 4 -Current Size (cm) - Width 4 -Current Size (cm) - Depth 0.3 -Total Square Cm 16 -Exudate Amt Medium -Exudate Type Serosanguineous -Wound Margin Distinct, Outline Attached -Granulation Amt Medium (34-66%) -Granulation [place],Red -Necrosis Amt None Present (0 %) -Necrotic Tissue Type Adherent Slough -Texture (Margaret-wound Skin Appearance) Assessed,Callus ,Scarring -Moisture (Margaret-wound Skin Appearance) No Abnormality, Assessed -Color (Margaret-wound Skin Appearance) No Abnormality, Assessed -Temperature (Margaret-wound Skin No Abnormality Appearance) (Pt Warm) -Tenderness on Palpation (Margaret-wound No Skin Appearance) -Ulcer Cleansing Rinsed/ Irrigated with Saline -Foul Odor after Cleansing No -Anesthetic Used 5% Lidocaine Gel WC - Nurse 2 - General Ulcer CM Notes Start: 02/18/22 09:52 Freq: Status: Active Protocol: Activity Type Activity Date Activity User E-sign Co-sign Detail Recorded Client Recorded Date Recorded By Document 02/20/22 08:33 MW [id number] 02/20/22 08:37 MW 02/20/22 08:33 Wound Center Nurse 2 -Time 08:34 -Correct Patient Yes -Correct Side, Site, Position Yes -Correct Procedure Yes -Procedure Performed Yes -Type of Procedure Debridement -Clinical Debridement Subcutaneous -Tissue Removed Subcutaneous -Post Debridement (cm) - Length 4.0 -Post Debridement (cm) - Width 3.4 -Post Debridement (cm) - Depth 0.5 -Total Square (Post) (cm) 13.60 -Area of Debridement (cm) - Length 4.0 -Area of Debridement (cm) - Width 3.4 -Total Square (Area) (cm) 13.60 -Tunneling No -Undermining/Tunneling No -Circular Undermining No -Wound/Ulcer Outcome Not Healed -Ulcer Cleansing Rinsed/ Irrigated with Saline -Foul Odor after Cleansing No -Bioengineered Tissue No -Bleeding Controlled with Pressure -Treatment Response Procedure Tolerated Well -Offloading No -Debridement - Subq, 1st 20sq cm Yes Pain Scale: 0-10 Numeric Is Patient Pain Free? Yes WC - Nurse 3 - General Ulcer D/C NN Start: 02/18/22 09:52 Freq: Status: Active Protocol: Activity Type Activity Date Activity User E-sign Co-sign Detail Recorded Client Recorded Date Recorded By Document 02/18/22 09:52 ML [id number] 02/18/22 09:57 ML Edit Result 02/18/22 09:52 ML (1) [id number] 02/18/22 11:44 ML Document 02/19/22 11:41 ML [id number] 02/19/22 11:47 ML (1) #1 left heel cluster - Ulcer Cleansing => Soap and Water - Foul Odor after Cleansing => No - Primary Dressing Applied => Aquacel Extra - Primary Dressing Covered/Secured with => Dry Gauze & Roll => Gauze,Secured with => Tape - Aquacel Extra => 0 02/18/22 02/19/22 09:52 11:41 Wound Care Nurse 3 #1 left heel cluster -Ulcer Cleansing Soap and Water Soap and Water -Foul Odor after Cleansing No No -Primary Dressing Applied Aquacel Extra Aquacel Extra -Other Dressing 2 KEVIN -Primary Dressing Covered/Secured with Dry Gauze & Dry Gauze & Roll Gauze, Roll Gauze, Secured with Secured with Tape Tape -Aquacel Extra 0 0 Pain Scale: 0-10 Numeric Is Patient Pain Free? Yes Yes Assessment/Plan Assessment/Plan (1) Osteomyelitis of foot, left, acute: CODE(S): M86.172 - Other acute osteomyelitis, left ankle and foot (2) CAD (coronary artery disease): CODE(S): I25.10 - Atherosclerotic heart disease of [place] coronary artery without angina pectoris (3) Decubitus ulcer of left heel, stage 3: CODE(S): L89.623 - Pressure ulcer of left heel, stage 3 PLAN: Left heel hold TheraSkin after debridement and apply Promogran to wound base with Aquacel extra over top then extra absorbent dressing over top and double layer Tubigrip with Kevin wrap over top. Follow-up in 1 week
[2022-02-20 11:15] LABS: Bedside Glucose 209 mg/dL (74-106)
[2022-02-20 11:21] VITALS: BP 107/55; BP 113/58; PULSE 54; PULSE 59; RESP 18; RESP 20; TEMP 36.7; TEMP 36.8
--- NOTE | 2022-02-20 13:14 | PCM.HBO.PN ---
History of Present Illness Date of Service: 02/20/22 Chief Complaint: Osteomyelitis and chronic delayed healing ulcer, left foot History of Wound: The patient presented for a chronic, non-healing wound to left heel with osteomyelitis. A limb and life-threatening infection required emergent surgical intervention on 05-29-2021. 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 He denies fever, chill, nausea, vomiting, pain, odor, redness today. He is keeping weight off of his foot. He continues to take antibiotics as advised and is also undergoing hyperbaric oxygen therapy treatments. He continues on blood thinner due to his deep venous thrombosis and his leg swelling is starting to reduce. Progress of Wound: Patient is here for his 43rd treatment out of 60 treatments for his hyperbaric chamber for his decubitus ulcer of his left heel with osteomyelitis. Doing well tolerating treatments well and wound is appearing to respond. Subjective Subjective Patient is pleased with outcomes Objective Data Objective Data Vital signs are stable on admission and discharge from the wound center Vital Signs: Vital Signs Temp Pulse Resp BP 98.2 F 59 L 20 H 107/55 L 02/20/22 11:21 02/20/22 11:21 02/20/22 11:21 02/20/22 11:21 Body Mass Index (BMI) 33.7 Lab / Micro Data Attestation: I reviewed the patient's lab results. Labs: Laboratory Results - last 24 hr 02/20/22 08:53: POC Glucose 223 H 02/20/22 10:57: POC Glucose 209 H Exam Physical Exam Const alert, oriented x3 and no apparent distress General Appearance: cooperative HEENT normocephalic Eyes Eyes Narrative: Bilateral ear tubes in place. Resp normal respiratory effort and no use of accessory muscles Auscultation: wheezes scattered wheezes and throughout Cardio regular rate and regular rhythm Psych affect normal Nursing Assessment and Debridement Post-Debridement Measurements and Additional Note: Post-Debridement Measurements/Treatment - Nurse 1 - General Ulcer Assessment Start: 02/18/22 09:52 Freq: Status: Active Protocol: JANESSA.LOWEXT Activity Type Activity Date Activity User E-sign Co-sign Detail Recorded Client Recorded Date Recorded By Document 02/20/22 08:19 KR [id number] 02/20/22 08:24 VASQUEZ 02/20/22 08:19 - Today's Visit Information Type of service Follow-up Visit (Physician/RE[employer] CREWMEMBER ) Arrival Mode Wheelchair Patient Identification Verified (Name & Yes ) Height and Weight Body Mass Index (BMI) 33.7 BMI Classification Obese Vital Signs Temperature (97.8 F-99.1 F) 98.2 F Temperature Source Temporal Pulse Rate (60-100) 59 L Pulse Location Monitor Blood Pressure (90/60-120/80) 107/55 L Blood Pressure Mean (mm Hg) 72 Source Monitor Position Sitting Blood Pressure Location Right Arm History Since Last Visit- (Skip if this is Patient's initial visit) Have you changed medications since your No last visit? Any new allergies or adverse reactions No Had a fall/change in ADL's that may No increase risk of falls Signs or symptoms of abuse and/or No neglect since last visit Have you been in the hospital since your No last visit? Has dressing in place as prescribed Yes Has compression in place as prescribed N/A Has offloadiing in place as prescribed N/A Experienced any changes in pain level or No management Left Footwear Removable Cast Walker/Walking Boot Right Footwear Regular Shoe Pain Scale: 0-10 Numeric Is Patient Pain Free? Yes - Nurse 1 - General Ulcer Measurement Start: 02/18/22 09:52 Freq: Status: Active Protocol: Activity Type Activity Date Activity User E-sign Co-sign Detail Recorded Client Recorded Date Recorded By Document 02/20/22 08:19 VASQUEZ [id number] 02/20/22 08:24 KR 02/20/22 08:19 Wound Center Nurse 1 #1 left heel cluster -Current Size (cm) - Length 4 -Current Size (cm) - Width 4 -Current Size (cm) - Depth 0.3 -Total Square Cm 16 -Exudate Amt Medium -Exudate Type Serosanguineous -Wound Margin Distinct, Outline Attached -Granulation Amt Medium (34-66%) -Granulation Quality [place],Red -Necrosis Amt None Present (0 %) -Necrotic Tissue Type Adherent Slough -Texture (Margaret-wound Skin Appearance) Assessed,Callus ,Scarring -Moisture (Margaret-wound Skin Appearance) No Abnormality, Assessed -Color (Margaret-wound Skin Appearance) No Abnormality, Assessed -Temperature (Margaret-wound Skin No Abnormality Appearance) (Pt Warm) -Tenderness on Palpation (Margaret-wound No Skin Appearance) -Ulcer Cleansing Rinsed/ Irrigated with Saline -Foul Odor after Cleansing No -Anesthetic Used 5% Lidocaine Gel WC - Nurse 2 - General Ulcer CM Notes Start: 02/18/22 09:52 Freq: Status: Active Protocol: Activity Type Activity Date Activity User E-sign Co-sign Detail Recorded Client Recorded Date Recorded By Document 02/20/22 08:33 MW [id number] 02/20/22 08:37 MW 02/20/22 08:33 Wound Center Nurse 2 -Time 08:34 -Correct Patient Yes -Correct Side, Site, Position Yes -Correct Procedure Yes -Procedure Performed Yes -Type of Procedure Debridement -Clinical Debridement Subcutaneous -Tissue Removed Subcutaneous -Post Debridement (cm) - Length 4.0 -Post Debridement (cm) - Width 3.4 -Post Debridement (cm) - Depth 0.5 -Total Square (Post) (cm) 13.60 -Area of Debridement (cm) - Length 4.0 -Area of Debridement (cm) - Width 3.4 -Total Square (Area) (cm) 13.60 -Tunneling No -Undermining/Tunneling No -Circular Undermining No -Wound/Ulcer Outcome Not Healed -Ulcer Cleansing Rinsed/ Irrigated with Saline -Foul Odor after Cleansing No -Bioengineered Tissue No -Bleeding Controlled with Pressure -Treatment Response Procedure Tolerated Well -Offloading No -Debridement - Subq, 1st 20sq cm Yes Pain Scale: 0-10 Numeric Is Patient Pain Free? Yes WC - Nurse 3 - General Ulcer D/C NN Start: 02/18/22 09:52 Freq: Status: Active Protocol: Activity Type Activity Date Activity User E-sign Co-sign Detail Recorded Client Recorded Date Recorded By Document 02/18/22 09:52 ML [id number] 02/18/22 09:57 ML Document 02/19/22 11:41 ML [id number] 02/19/22 11:47 ML Document 02/20/22 12:05 AK [id number] 02/20/22 12:05 AK 02/18/22 02/19/22 02/20/22 09:52 11:41 12:05 Wound Care Nurse 3 #1 left heel cluster -Ulcer Cleansing Soap and Water Soap and Water Rinsed/ Irrigated with Saline -Foul Odor after Cleansing No No No -Negative Pressure Wound Therapy N/A -Primary Dressing Applied Aquacel Extra Aquacel Extra Aquacel AG 4x4, Promogran -Other Dressing 2 KASI nurses hat -Primary Dressing Covered/Secured with Dry Gauze & Dry Gauze & Dry Gauze & Roll Gauze, Roll Gauze, Roll Gauze, Secured with Secured with Secured with Tape Tape Tape -Aquacel Extra 0 0 -Aquacel AG 4x4 1 -Promogran 1 Pain Scale: 0-10 Numeric Is Patient Pain Free? Yes Yes Yes WC - Visit Discharge Discharge Condition Stable Ambulatory Status Wheelchair Transportation Private Auto Medication Reconcilliation completed & Yes provided to patient/care provider Clinical Summary of Care Provided Yes Assessment/Plan Assessment/Plan (1) Osteomyelitis: CODE(S): M86.9 - Osteomyelitis, unspecified (2) Foot osteomyelitis: CODE(S): M86.9 - Osteomyelitis, unspecified QUALIFIERS: Osteomyelitis type: other acute Laterality: left Qualified Code(s): M86.172 - Other acute osteomyelitis, left ankle and foot (3) Chronic ulcer of left foot with necrosis of bone: CODE(S): L97.524 - Non-pressure chronic ulcer of other part of left foot with necrosis of bone (4) Type 2 diabetes mellitus with diabetic polyneuropathy: CODE(S): E11.42 - Type 2 diabetes mellitus with diabetic polyneuropathy QUALIFIERS: 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: with truck terminal manager use Qualified Code(s): E11.42 - Type 2 diabetes mellitus with diabetic polyneuropathy; Z79.4 - joint terminal attack controller (current) use of insulin (5) Diabetic foot ulcer: CODE(S): E11.621 - Type 2 diabetes mellitus with foot ulcer; L97.509 - Non-pressure chronic ulcer of other part of unspecified foot with unspecified severity QUALIFIERS: Diabetic foot ulcer location: heel Diabetes mellitus type: type 2 Laterality: left Non-pressure ulcer stage: with fat layer exposed Qualified Code(s): E11.621 - Type 2 diabetes mellitus with foot ulcer; L97.422 - Non-pressure chronic ulcer of left heel and midfoot with fat layer exposed (6) Bilateral edema of lower extremity: CODE(S): R60.0 - Localized edema PLAN: Plan The patient tolerated hyperbaric oxygen therapy well which will be continued as per his medical plan. We have applied for 20 more treatments on his plan for hyperbaric chamber treatments
[2022-02-21 09:20] LABS: Bedside Glucose 192 mg/dL (74-106)
--- NOTE | 2022-02-21 09:31 | PCM.HBO.PN ---
History of Present Illness Date of Service: 02/21/22 Chief Complaint: Osteomyelitis and chronic delayed healing ulcer, left foot History of Wound: The patient presented for a chronic, non-healing wound to left heel with osteomyelitis. A limb and life-threatening infection required emergent surgical intervention on 05-29-2021. 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 He denies fever, chill, nausea, vomiting, pain, odor, redness today. He is keeping weight off of his foot. He continues to take antibiotics as advised and is also undergoing hyperbaric oxygen therapy treatments. He continues on blood thinner due to his deep venous thrombosis and his leg swelling is starting to reduce. Progress of Wound: Today represents the 44th session of hyperbaric oxygen therapy. Hyperbaric oxygen therapy was administered as per the facility's protocol at 2 abena for 90 minutes with no air breaks.? The patient tolerated hyperbaric oxygen therapy well, without complaints or complications.? Upon emergence from the hyperbaric chamber, the patient's vital signs remained stable.? He was discharged in good condition. Objective Data Objective Data Vital Signs: Vital Signs Temp Pulse Resp BP 98.2 F 59 L 20 H 107/55 L 02/20/22 11:21 02/20/22 11:21 02/20/22 11:21 02/20/22 11:21 Body Mass Index (BMI) 33.7 Lab / Micro Data Labs: Laboratory Results - last 24 hr 02/20/22 10:57: POC Glucose 209 H 02/21/22 09:00: POC Glucose 192 H Exam Physical Exam Const alert, oriented x3 and no apparent distress General Appearance: cooperative HEENT normocephalic Eyes Eyes Narrative: Bilateral ear tubes in place. Resp normal respiratory effort and no use of accessory muscles Psych affect normal Nursing Assessment and Debridement Post-Debridement Measurements and Additional Note: Post-Debridement Measurements/Treatment WC - Nurse 1 - General Ulcer Assessment Start: 02/18/22 09:52 Freq: Status: Active Protocol: JANESSA.HEMALATHAEXAnastasia Activity Type Activity Date Activity User E-sign Co-sign Detail Recorded Client Recorded Date Recorded By Document 02/20/22 08:19 VASQUEZ [id number] 02/20/22 08:24 VASQUEZ 02/20/22 08:19 - Today's Visit Information Type of service Follow-up Visit (Physician/PROPERTY MANAGEMENT BOOKKEEPER ) Arrival Mode Wheelchair Patient Identification Verified (Name & Yes ) Height and Weight Body Mass Index (BMI) 33.7 BMI Classification Obese Vital Signs Temperature (97.8 F-99.1 F) 98.2 F Temperature Source Temporal Pulse Rate (60-100) 59 L Pulse Location Monitor Blood Pressure (90/60-120/80) 107/55 L Blood Pressure Mean (mm Hg) 72 Source Monitor Position Sitting Blood Pressure Location Right Arm History Since Last Visit- (Skip if this is Patient's initial visit) Have you changed medications since your No last visit? Any new allergies or adverse reactions No Had a fall/change in ADL's that may No increase risk of falls Signs or symptoms of abuse and/or No neglect since last visit Have you been in the hospital since your No last visit? Has dressing in place as prescribed Yes Has compression in place as prescribed N/A Has offloadiing in place as prescribed N/A Experienced any changes in pain level or No management Left Footwear Removable Cast Walker/Walking Boot Right Footwear Regular Shoe Pain Scale: 0-10 Numeric Is Patient Pain Free? Yes WC - Nurse 1 - General Ulcer Measurement Start: 02/18/22 09:52 Freq: Status: Active Protocol: Activity Type Activity Date Activity User E-sign Co-sign Detail Recorded Client Recorded Date Recorded By Document 02/20/22 08:19 VASQUEZ [id number] 02/20/22 08:24 VASQUEZ 02/20/22 08:19 Wound Center Nurse 1 #1 left heel cluster -Current Size (cm) - Length 4 -Current Size (cm) - Width 4 -Current Size (cm) - Depth 0.3 -Total Square Cm 16 -Exudate Amt Medium -Exudate Type Serosanguineous -Wound Margin Distinct, Outline Attached -Granulation Amt Medium (34-66%) -Granulation Quality [place],Red -Necrosis Amt None Present (0 %) -Necrotic Tissue Type Adherent Slough -Texture (Margaret-wound Skin Appearance) Assessed,Callus ,Scarring -Moisture (Margaret-wound Skin Appearance) No Abnormality, Assessed -Color (Margaret-wound Skin Appearance) No Abnormality, Assessed -Temperature (Margaret-wound Skin No Abnormality Appearance) (Pt Warm) -Tenderness on Palpation (Margaret-wound No Skin Appearance) -Ulcer Cleansing Rinsed/ Irrigated with Saline -Foul Odor after Cleansing No -Anesthetic Used 5% Lidocaine Gel WC - Nurse 2 - General Ulcer CM Notes Start: 02/18/22 09:52 Freq: Status: Active Protocol: Activity Type Activity Date Activity User E-sign Co-sign Detail Recorded Client Recorded Date Recorded By Document 02/20/22 08:33 MW [id number] 02/20/22 08:37 MW 02/20/22 08:33 Wound Center Nurse 2 -Time 08:34 -Correct Patient Yes -Correct Side, Site, Position Yes -Correct Procedure Yes -Procedure Performed Yes -Type of Procedure Debridement -Clinical Debridement Subcutaneous -Tissue Removed Subcutaneous -Post Debridement (cm) - Length 4.0 -Post Debridement (cm) - Width 3.4 -Post Debridement (cm) - Depth 0.5 -Total Square (Post) (cm) 13.60 -Area of Debridement (cm) - Length 4.0 -Area of Debridement (cm) - Width 3.4 -Total Square (Area) (cm) 13.60 -Tunneling No -Undermining/Tunneling No -Circular Undermining No -Wound/Ulcer Outcome Not Healed -Ulcer Cleansing Rinsed/ Irrigated with Saline -Foul Odor after Cleansing No -Bioengineered Tissue No -Bleeding Controlled with Pressure -Treatment Response Procedure Tolerated Well -Offloading No -Debridement - Subq, 1st 20sq cm Yes Pain Scale: 0-10 Numeric Is Patient Pain Free? Yes - Nurse 3 - General Ulcer D/C NN Start: 02/18/22 09:52 Freq: Status: Active Protocol: Activity Type Activity Date Activity User E-sign Co-sign Detail Recorded Client Recorded Date Recorded By Document 02/18/22 09:52 ML [id number] 02/18/22 09:57 ML Document 02/19/22 11:41 ML [id number] 02/19/22 11:47 ML Document 02/20/22 12:05 AK [id number] 02/20/22 12:05 AK 02/18/22 02/19/22 02/20/22 09:52 11:41 12:05 Wound Care Nurse 3 #1 left heel cluster -Ulcer Cleansing Soap and Water Soap and Water Rinsed/ Irrigated with Saline -Foul Odor after Cleansing No No No -Negative Pressure Wound Therapy N/A -Primary Dressing Applied Aquacel Extra Aquacel Extra Aquacel AG 4x4, Promogran -Other Dressing 2 KASI nurses hat -Primary Dressing Covered/Secured with Dry Gauze & Dry Gauze & Dry Gauze & Roll Gauze, Roll Gauze, Roll Gauze, Secured with Secured with Secured with Tape Tape Tape -Aquacel Extra 0 0 -Aquacel AG 4x4 1 -Promogran 1 Pain Scale: 0-10 Numeric Is Patient Pain Free? Yes Yes Yes WC - Visit Discharge Discharge Condition Stable Ambulatory Status Wheelchair Transportation Private Auto Medication Reconcilliation completed & Yes provided to patient/care provider Clinical Summary of Care Provided Yes Charges/Coding Wound Center CF Procedures HBO Supervision: [id number] Hyperbaric Oxygen; supervision Assessment/Plan Assessment/Plan (1) Other acute osteomyelitis, left ankle and foot: CODE(S): M86.172 - Other acute osteomyelitis, left ankle and foot (2) Osteomyelitis: CODE(S): M86.9 - Osteomyelitis, unspecified (3) Foot osteomyelitis: CODE(S): M86.9 - Osteomyelitis, unspecified QUALIFIERS: Osteomyelitis type: other acute Laterality: left Qualified Code(s): M86.172 - Other acute osteomyelitis, left ankle and foot (4) Chronic ulcer of left foot with necrosis of bone: CODE(S): L97.524 - Non-pressure chronic ulcer of other part of left foot with necrosis of bone (5) Type 2 diabetes mellitus with diabetic polyneuropathy: CODE(S): E11.42 - Type 2 diabetes mellitus with diabetic polyneuropathy QUALIFIERS: Diabetes mellitus fci insulin use: with intermediate manager use Qualified Code(s): E11.42 - Type 2 diabetes mellitus with diabetic polyneuropathy; Z79.4 - exterminator (current) use of insulin (6) Diabetic foot ulcer: CODE(S): E11.621 - Type 2 diabetes mellitus with foot ulcer; L97.509 - Non-pressure chronic ulcer of other part of unspecified foot with unspecified severity QUALIFIERS: Diabetic foot ulcer location: heel Diabetes mellitus type: type 2 Laterality: left Non-pressure ulcer stage: with fat layer exposed Qualified Code(s): E11.621 - Type 2 diabetes mellitus with foot ulcer; L97.422 - Non-pressure chronic ulcer of left heel and midfoot with fat layer exposed PLAN: Plan The patient tolerated hyperbaric oxygen therapy well which will be continued as per his medical plan. This note was generated with [employer] dictation software. It may contain incorrect words, spelling, and punctuation that were not noted in checking the note before signing.
[2022-02-21 10:27] VITALS: BP 125/62; BP 138/72; PULSE 54; RESP 19; RESP 20; TEMP 36; TEMP 36.1
[2022-02-21 11:51] LABS: Bedside Glucose 148 mg/dL (74-106)
[2022-02-22 08:41] LABS: Bedside Glucose 205 mg/dL (74-106)
[2022-02-22 09:11] VITALS: BP 139/67; BP 141/65; PULSE 49; PULSE 56; RESP 18; RESP 19; TEMP 36.4
[2022-02-22 10:51] LABS: Bedside Glucose 193 mg/dL (74-106)
--- NOTE | 2022-02-22 12:08 | HBO.PN.PCM_ITS ---
History of Present Illness Date of Service: 02/22/22 Chief Complaint: Osteomyelitis and chronic delayed healing ulcer, left foot History of Wound: The patient presented for a chronic, non-healing wound to left heel with osteomyelitis. A limb and life-threatening infection required emergent surgical intervention on 05-29-2021. 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 He denies fever, chill, nausea, vomiting, pain, odor, redness today. He is keeping weight off of his foot. He continues to take antibiotics as advised and is also undergoing hyperbaric oxygen therapy treatments. He continues on blood thinner due to his deep venous thrombosis and his leg swelling is starting to reduce. Progress of Wound: Today represents the 45th session of hyperbaric oxygen therapy. Hyperbaric oxygen therapy was administered as per the facility's protocol at 2 abena for 90 minutes with no air breaks.? The patient tolerated hyperbaric oxygen therapy well, without complaints or complications.? Upon emergence from the hyperbaric chamber, the patient's vital signs remained stable.? He was discharged in good condition. Objective Data Objective Data Vital Signs: Vital Signs Temp Pulse Resp BP 97.6 F L 56 L 18 141/65 H 02/22/22 09:11 02/22/22 09:11 02/22/22 09:11 02/22/22 09:11 Body Mass Index (BMI) 33.7 Lab / Micro Data Labs: Laboratory Results - last 24 hr 02/22/22 08:21: POC Glucose 205 H 02/22/22 10:29: POC Glucose 193 H Exam Physical Exam Const alert, oriented x3 and no apparent distress Psych mental status grossly normal, thought process normal, cooperative, affect normal and speech normal Nursing Assessment and Debridement Post-Debridement Measurements and Additional Note: Post-Debridement Measurements/Treatment WC - Nurse 1 - General Ulcer Assessment Start: 02/18/22 09:52 Freq: Status: Active Protocol: EVELYN Activity Type Activity Date Activity User E-sign Co-sign Detail Recorded Client Recorded Date Recorded By Document 02/20/22 08:19 KR [id number] 02/20/22 08:24 KR 02/20/22 08:19 - Today's Visit Information Type of service Follow-up Visit (Physician/EGG CANDLER ) Arrival Mode Wheelchair Patient Identification Verified (Name & Yes ) Height and Weight Body Mass Index (BMI) 33.7 BMI Classification Obese Vital Signs Temperature (97.8 F-99.1 F) 98.2 F Temperature Source Temporal Pulse Rate (60-100) 59 L Pulse Location Monitor Blood Pressure (90/60-120/80) 107/55 L Blood Pressure Mean (mm Hg) 72 Source Monitor Position Sitting Blood Pressure Location Right Arm History Since Last Visit- (Skip if this is Patient's initial visit) Have you changed medications since your No last visit? Any new allergies or adverse reactions No Had a fall/change in ADL's that may No increase risk of falls Signs or symptoms of abuse and/or No neglect since last visit Have you been in the hospital since your No last visit? Has dressing in place as prescribed Yes Has compression in place as prescribed N/A Has offloadiing in place as prescribed N/A Experienced any changes in pain level or No management Left Footwear Removable Cast Walker/Walking Boot Right Footwear Regular Shoe Pain Scale: 0-10 Numeric Is Patient Pain Free? Yes WC - Nurse 1 - General Ulcer Measurement Start: 02/18/22 09:52 Freq: Status: Active Protocol: Activity Type Activity Date Activity User E-sign Co-sign Detail Recorded Client Recorded Date Recorded By Document 02/20/22 08:19 VASQUEZ [id number] 02/20/22 08:24 KR 02/20/22 08:19 Wound Center Nurse 1 #1 left heel cluster -Current Size (cm) - Length 4 -Current Size (cm) - Width 4 -Current Size (cm) - Depth 0.3 -Total Square Cm 16 -Exudate Amt Medium -Exudate Type Serosanguineous -Wound Margin Distinct, Outline Attached -Granulation Amt Medium (34-66%) -Granulation Quality [place],Red -Necrosis Amt None Present (0 %) -Necrotic Tissue Type Adherent Slough -Texture (Margaret-wound Skin Appearance) Assessed,Callus ,Scarring -Moisture (Margaret-wound Skin Appearance) No Abnormality, Assessed -Color (Margaret-wound Skin Appearance) No Abnormality, Assessed -Temperature (Margaret-wound Skin No Abnormality Appearance) (Pt Warm) -Tenderness on Palpation (Margaret-wound No Skin Appearance) -Ulcer Cleansing Rinsed/ Irrigated with Saline -Foul Odor after Cleansing No -Anesthetic Used 5% Lidocaine Gel WC - Nurse 2 - General Ulcer CM Notes Start: 02/18/22 09:52 Freq: Status: Active Protocol: Activity Type Activity Date Activity User E-sign Co-sign Detail Recorded Client Recorded Date Recorded By Document 02/20/22 08:33 MW [id number] 02/20/22 08:37 MW 02/20/22 08:33 Wound Center Nurse 2 -Time 08:34 -Correct Patient Yes -Correct Side, Site, Position Yes -Correct Procedure Yes -Procedure Performed Yes -Type of Procedure Debridement -Clinical Debridement Subcutaneous -Tissue Removed Subcutaneous -Post Debridement (cm) - Length 4.0 -Post Debridement (cm) - Width 3.4 -Post Debridement (cm) - Depth 0.5 -Total Square (Post) (cm) 13.60 -Area of Debridement (cm) - Length 4.0 -Area of Debridement (cm) - Width 3.4 -Total Square (Area) (cm) 13.60 -Tunneling No -Undermining/Tunneling No -Circular Undermining No -Wound/Ulcer Outcome Not Healed -Ulcer Cleansing Rinsed/ Irrigated with Saline -Foul Odor after Cleansing No -Bioengineered Tissue No -Bleeding Controlled with Pressure -Treatment Response Procedure Tolerated Well -Offloading No -Debridement - Subq, 1st 20sq cm Yes Pain Scale: 0-10 Numeric Is Patient Pain Free? Yes JANESSA - Nurse 3 - General Ulcer D/C NN Start: 02/18/22 09:52 Freq: Status: Active Protocol: Activity Type Activity Date Activity User E-sign Co-sign Detail Recorded Client Recorded Date Recorded By Document 02/19/22 11:41 ML [id number] 02/19/22 11:47 ML Document 02/20/22 12:05 AK [id number] 02/20/22 12:05 AK Document 02/21/22 10:27 ML [id number] 02/21/22 10:31 ML Document 02/22/22 09:11 ML [id number] 02/22/22 09:15 ML 02/19/22 02/20/22 02/21/22 11:41 12:05 10:27 Wound Care Nurse 3 #1 left heel cluster -Ulcer Cleansing Soap and Water Rinsed/ Soap and Water Irrigated with Saline -Foul Odor after Cleansing No No -Negative Pressure Wound Therapy N/A -Primary Dressing Applied Aquacel Extra Aquacel AG 4x4, Aquacel Extra, Promogran Promogran -Other Dressing 2 KASI nurses hat -Primary Dressing Covered/Secured with Dry Gauze & Dry Gauze & Dry Gauze & Roll Gauze, Roll Gauze, Roll Gauze, Secured with Secured with Secured with Tape Tape Tape -Aquacel Extra 0 0 -Aquacel AG 4x4 1 -Promogran 1 0 Pain Scale: 0-10 Numeric Is Patient Pain Free? Yes Yes Yes WC - Visit Discharge Discharge Condition Stable Ambulatory Status Wheelchair Transportation Private Auto Medication Reconcilliation completed & Yes provided to patient/care provider Clinical Summary of Care Provided Yes 02/22/22 09:11 Wound Care Nurse 3 #1 left heel cluster -Ulcer Cleansing Soap and Water -Foul Odor after Cleansing No -Negative Pressure Wound Therapy N/A -Primary Dressing Applied Aquacel Extra, Promogran -Other Dressing KASI -Primary Dressing Covered/Secured with Dry Gauze & Roll Gauze, Secured with Tape -Aquacel Extra 1 -Aquacel AG 4x4 -Promogran 1 Pain Scale: 0-10 Numeric Is Patient Pain Free? Yes WC - Visit Discharge Discharge Condition Ambulatory Status Transportation Medication Reconcilliation completed & provided to patient/care provider Clinical Summary of Care Provided Assessment/Plan Assessment/Plan (1) Other acute osteomyelitis, left ankle and foot: CODE(S): M86.172 - Other acute osteomyelitis, left ankle and foot (2) Osteomyelitis: CODE(S): M86.9 - Osteomyelitis, unspecified (3) Foot osteomyelitis: CODE(S): M86.9 - Osteomyelitis, unspecified QUALIFIERS: Osteomyelitis type: other acute Laterality: left Qualified Code(s): M86.172 - Other acute osteomyelitis, left ankle and foot (4) Chronic ulcer of left foot with necrosis of bone: CODE(S): L97.524 - Non-pressure chronic ulcer of other part of left foot with necrosis of bone (5) Type 2 diabetes mellitus with diabetic polyneuropathy: CODE(S): E11.42 - Type 2 diabetes mellitus with diabetic polyneuropathy QUALIFIERS: Diabetes mellitus skilled nursing insulin use: with skilled nursing use Qualified Code(s): E11.42 - Type 2 diabetes mellitus with diabetic polyneuropathy; Z79.4 - FPC (current) use of insulin (6) Diabetic foot ulcer: CODE(S): E11.621 - Type 2 diabetes mellitus with foot ulcer; L97.509 - Non-pressure chronic ulcer of other part of unspecified foot with unspecified severity QUALIFIERS: Diabetic foot ulcer location: heel Diabetes mellitus type: type 2 Laterality: left Non-pressure ulcer stage: with fat layer exposed Qualified Code(s): E11.621 - Type 2 diabetes mellitus with foot ulcer; L97.422 - Non-pressure chronic ulcer of left heel and midfoot with fat layer exposed PLAN: Plan The patient tolerated hyperbaric oxygen therapy well which will be continued as per his medical plan. This note was generated with [employer] dictation software. It may contain incorrect words, spelling, and punctuation that were not noted in checking the note before signing.
[2022-02-25 09:01] LABS: Bedside Glucose 204 mg/dL (74-106)
[2022-02-25 09:22] VITALS: BP 135/60; BP 149/76; PULSE 52; PULSE 63; RESP 18; RESP 20; TEMP 36; TEMP 36.1
--- NOTE | 2022-02-25 10:21 | PCM.HBO.PN ---
History of Present Illness Date of Service: 02/25/22 Chief Complaint: Osteomyelitis and chronic delayed healing ulcer, left foot History of Wound: The patient presented for a chronic, non-healing wound to left heel with osteomyelitis. A limb and life-threatening infection required emergent surgical intervention on 05-29-2021. 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 He denies fever, chill, nausea, vomiting, pain, odor, redness today. He is keeping weight off of his foot. He continues to take antibiotics as advised and is also undergoing hyperbaric oxygen therapy treatments. He continues on blood thinner due to his deep venous thrombosis and his leg swelling is starting to reduce. Progress of Wound: Today represents the 46th session of hyperbaric oxygen therapy. Hyperbaric oxygen therapy was administered as per the facility's protocol at 2 abena for 90 minutes with no air breaks.? The patient tolerated hyperbaric oxygen therapy well, without complaints or complications.? Upon emergence from the hyperbaric chamber, the patient's vital signs remained stable.? He was discharged in good condition. Objective Data Objective Data Vital Signs: Vital Signs Temp Pulse Resp BP 96.8 F L 63 20 H 149/76 H 02/25/22 09:22 02/25/22 09:22 02/25/22 09:22 02/25/22 09:22 Body Mass Index (BMI) 33.7 Lab / Micro Data Labs: Laboratory Results - last 24 hr 02/25/22 08:39: POC Glucose 204 H Exam Physical Exam Const alert, oriented x3 and no apparent distress General Appearance: cooperative HEENT normocephalic Eyes Eyes Narrative: Bilateral ear tubes in place. Resp normal respiratory effort and no use of accessory muscles Auscultation: wheezes scattered wheezes and throughout Psych affect normal Assessment/Plan Assessment/Plan (1) Other acute osteomyelitis, left ankle and foot: CODE(S): M86.172 - Other acute osteomyelitis, left ankle and foot (2) Osteomyelitis: CODE(S): M86.9 - Osteomyelitis, unspecified (3) Foot osteomyelitis: CODE(S): M86.9 - Osteomyelitis, unspecified QUALIFIERS: Laterality: left Osteomyelitis type: other acute Qualified Code(s): M86.172 - Other acute osteomyelitis, left ankle and foot (4) Chronic ulcer of left foot with necrosis of bone: CODE(S): L97.524 - Non-pressure chronic ulcer of other part of left foot with necrosis of bone (5) Type 2 diabetes mellitus with diabetic polyneuropathy: CODE(S): E11.42 - Type 2 diabetes mellitus with diabetic polyneuropathy QUALIFIERS: Diabetes mellitus terminal superintendent insulin use: with correction use Qualified Code(s): E11.42 - Type 2 diabetes mellitus with diabetic polyneuropathy; Z79.4 - termite control representative (current) use of insulin (6) Diabetic foot ulcer: CODE(S): E11.621 - Type 2 diabetes mellitus with foot ulcer; L97.509 - Non-pressure chronic ulcer of other part of unspecified foot with unspecified severity QUALIFIERS: Diabetes mellitus type: type 2 Diabetic foot ulcer location: heel Laterality: left Non-pressure ulcer stage: with fat layer exposed Qualified Code(s): E11.621 - Type 2 diabetes mellitus with foot ulcer; L97.422 - Non-pressure chronic ulcer of left heel and midfoot with fat layer exposed PLAN: Plan The patient tolerated hyperbaric oxygen therapy well which will be continued as per his medical plan. This note was generated with [employer] software. It may contain incorrect words, spelling, and punctuation that were not noted in checking the note before signing.
[2022-02-25 11:11] LABS: Bedside Glucose 205 mg/dL (74-106)
[2022-02-26 09:00] LABS: Bedside Glucose 178 mg/dL (74-106)
[2022-02-26 09:08] VITALS: BP 114/56; BP 127/67; PULSE 54; PULSE 59; RESP 19; TEMP 36.1
[2022-02-26 11:10] LABS: Bedside Glucose 196 mg/dL (74-106)
--- NOTE | 2022-02-26 19:05 | PCM.HBO.PN ---
History of Present Illness Date of Service: 02/26/22 Chief Complaint: Osteomyelitis and chronic delayed healing ulcer, left foot History of Wound: The patient presented for a chronic, non-healing wound to left heel with osteomyelitis. A limb and life-threatening infection required emergent surgical intervention on 05-29-2021. 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 He denies fever, chill, nausea, vomiting, pain, odor, redness today. He is keeping weight off of his foot. He continues to take antibiotics as advised and is also undergoing hyperbaric oxygen therapy treatments. He continues on blood thinner due to his deep venous thrombosis and his leg swelling is starting to reduce. Progress of Wound: Today represents the 47th session of hyperbaric oxygen therapy. Hyperbaric oxygen therapy was administered as per the facility's protocol. Hyperbaric oxygen therapy was administered at 2 abena for 90 minutes with no air breaks.? The patient tolerated hyperbaric oxygen therapy well, without complaints or complications.? Upon emergence from the hyperbaric chamber, the patient's vital signs remained stable.? He was discharged in good condition. Pre- and post-treatment blood glucose measurements are documented elsewhere. Objective Data Objective Data Vital Signs: Vital Signs Temp Pulse Resp BP 96.9 F L 59 L 19 H 114/56 L 02/26/22 09:08 02/26/22 09:08 02/26/22 09:08 02/26/22 09:08 Body Mass Index (BMI) 33.7 Lab / Micro Data Labs: Laboratory Results - last 24 hr 02/26/22 08:43: POC Glucose 178 H 02/26/22 10:49: POC Glucose 196 H Exam Physical Exam Const alert, oriented x3 and no apparent distress General Appearance: cooperative and well developed HEENT normocephalic and EAC's normal Head and Scalp: atraumatic Eyes PERRL and EOMs intact bilaterally Eyes Narrative: Bilateral ear tubes in place. Neck no JVD Resp normal respiratory effort and no use of accessory muscles Effort and Inspection: able to speak in complete sentences Psych affect normal Nursing Assessment and Debridement Post-Debridement Measurements and Additional Note: Post-Debridement Measurements/Treatment WC - Nurse 3 - General Ulcer D/C NN Start: 02/18/22 09:52 Freq: Status: Active Protocol: Activity Type Activity Date Activity User E-sign Co-sign Detail Recorded Client Recorded Date Recorded By Document 02/25/22 11:35 ML [id number] 02/25/22 11:36 ML Document 02/26/22 09:08 ML [id number] 02/26/22 09:12 ML 02/25/22 02/26/22 11:35 09:08 Wound Care Nurse 3 #1 left heel cluster -Ulcer Cleansing Soap and Water Soap and Water -Foul Odor after Cleansing No -Primary Dressing Applied Aquacel Extra, Aquacel Extra, Promogran Promogran -Other Dressing 2 kasi wraps KASI -Primary Dressing Covered/Secured with Dry Gauze & Dry Gauze & Roll Gauze, Roll Gauze, Secured with Secured with Tape Tape -Aquacel Extra 1 1 -Promogran 1 1 Pain Scale: 0-10 Numeric Is Patient Pain Free? Yes Yes Assessment/Plan Assessment/Plan (1) Other acute osteomyelitis, left ankle and foot: CODE(S): M86.172 - Other acute osteomyelitis, left ankle and foot (2) Osteomyelitis: CODE(S): M86.9 - Osteomyelitis, unspecified (3) Foot osteomyelitis: CODE(S): M86.9 - Osteomyelitis, unspecified QUALIFIERS: Osteomyelitis type: other acute Laterality: left Qualified Code(s): M86.172 - Other acute osteomyelitis, left ankle and foot (4) Chronic ulcer of left foot with necrosis of bone: CODE(S): L97.524 - Non-pressure chronic ulcer of other part of left foot with necrosis of bone (5) Type 2 diabetes mellitus with diabetic polyneuropathy: CODE(S): E11.42 - Type 2 diabetes mellitus with diabetic polyneuropathy QUALIFIERS: Diabetes mellitus terminal operations manager insulin use: with correction use Qualified Code(s): E11.42 - Type 2 diabetes mellitus with diabetic polyneuropathy; Z79.4 - 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 (6) Diabetic foot ulcer: CODE(S): E11.621 - Type 2 diabetes mellitus with foot ulcer; L97.509 - Non-pressure chronic ulcer of other part of unspecified foot with unspecified severity QUALIFIERS: Diabetic foot ulcer location: heel Diabetes mellitus type: type 2 Laterality: left Non-pressure ulcer stage: with fat layer exposed Qualified Code(s): E11.621 - Type 2 diabetes mellitus with foot ulcer; L97.422 - Non-pressure chronic ulcer of left heel and midfoot with fat layer exposed PLAN: Plan The patient appears to be tolerating hyperbaric oxygen therapy well, which will be continued as per the patient's medical plan.
[2022-02-27 08:54] VITALS: BP 124/56; PULSE 61; TEMP 36.2; BMI 33.7
--- NOTE | 2022-02-27 09:13 | PN.PCM_ITS ---
History of Present Illness Date of Service: 02/27/22 Chief Complaint: Osteomyelitis and chronic delayed healing ulcer, left foot History of Wound: The patient presented for a chronic, non-healing wound to left heel with osteomyelitis. A limb and life-threatening infection required emergent surgical intervention on 05-29-2021. 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 He denies fever, chill, nausea, vomiting, pain, odor, redness today. He is keeping weight off of his foot. He continues to take antibiotics as advised and is also undergoing hyperbaric oxygen therapy treatments. He continues on blood thinner due to his deep venous thrombosis and his leg swelling is starting to reduce. Progress of Wound: So the wound is measuring about the same slightly smaller in circumference depth is about the same still 1.0. Still has a lot of discharge even with the Promogran and Aquacel extra. It is because he keeps walking on it. Convinced him to try maybe a wound VAC again on the heel to see if we can get it to close better. Did develop some undermining from 12-2 about 1 inch under the skin we will try to close that with the wound VAC Subjective Subjective Patient is willing to try the wound VAC Objective Data Objective Data Continue dressing changes as scheduled he sees hyperbaric chamber every day and they change his dressing every day so they can keep an eye on the wound VAC when it comes in. Vital Signs: Vital Signs Temp Pulse Resp BP 97.1 F L 61 19 H 124/56 H 02/27/22 08:54 02/27/22 08:54 02/26/22 09:08 02/27/22 08:54 Body Mass Index (BMI) 33.7 Lab / Micro Data Attestation: I reviewed the patient's lab results. Labs: Laboratory Results - last 24 hr 02/26/22 10:49: POC Glucose 196 H Physical Exam Const alert, oriented x3 and no apparent distress General Appearance: cooperative and well developed HEENT normocephalic and EAC's normal Head and Scalp: atraumatic Eyes PERRL and EOMs intact bilaterally Eyes Narrative: Bilateral ear tubes in place. Neck no JVD Resp normal respiratory effort and no use of accessory muscles Effort and Inspection: able to speak in complete sentences Psych affect normal Debridement Note Debridement Note Wound debrided: Left heel Laterality: Left Wound Grade/Stage: Stage III Type of Debridement: Excisional debridement Anesthesia Used: 5% Lidocaine Gel Depth: in the subcutaneous layer Percentage of wound debrided: 100 Instrument Used: 7mm curette Tissue Removed: Fibrin Severity: Fat Layer Exposed Amount of bleeding with debridement: Mild Bleeding Controlled with: Compression and gauze Patient tolerated procedure: Patient tolerated procedure well Post-Debridement Measurements and Additional Note: Post-Debridement Measurements/Treatment WC - Nurse 1 - General Ulcer Assessment Start: 02/18/22 09:52 Freq: Status: Active Protocol: EVELYN Activity Type Activity Date Activity User E-sign Co-sign Detail Recorded Client Recorded Date Recorded By Document 02/20/22 08:19 KR [id number] 02/20/22 08:24 KR Document 02/27/22 08:54 AK [id number] 02/27/22 08:56 AK 02/20/22 02/27/22 08:19 08:54 WC - Today's Visit Information Type of service Follow-up Visit Follow-up Visit (Physician/[employer]NS[employer] (Physician/[employer]IC[employer]NS[employer] ) ) Arrival Mode Wheelchair Wheelchair Patient Identification Verified (Name & Yes Yes ) Patient Requires Transmission-Based No Precautions Safety Precautions NA Height and Weight Body Mass Index (BMI) 33.7 33.7 BMI Classification Obese Obese Vital Signs Temperature (97.8 F-99.1 F) 98.2 F 97.1 F L Temperature Source Temporal Temporal Pulse Rate (60-100) 59 L 61 Pulse Location Monitor Monitor Blood Pressure (90/60-120/80) 107/55 L 124/56 H Blood Pressure Mean (mm Hg) 72 78 Source Monitor Monitor Position Sitting Blood Pressure Location Right Arm History Since Last Visit- (Skip if this is Patient's initial visit) Have you changed medications since your No No last visit? Any new allergies or adverse reactions No No Had a fall/change in ADL's that may No No increase risk of falls Signs or symptoms of abuse and/or No No neglect since last visit Have you been in the hospital since your No No last visit? Has dressing in place as prescribed Yes Yes Has compression in place as prescribed N/A Yes Has offloadiing in place as prescribed N/A Yes Experienced any changes in pain level or No No management Left Footwear Removable Cast Regular Shoe Walker/Walking Boot Right Footwear Regular Shoe Removable Cast Walker/Walking Boot Pain Scale: 0-10 Numeric Is Patient Pain Free? Yes Yes WC - Nurse 1 - General Ulcer Measurement Start: 02/18/22 09:52 Freq: Status: Active Protocol: Activity Type Activity Date Activity User E-sign Co-sign Detail Recorded Client Recorded Date Recorded By Document 02/20/22 08:19 KR [id number] 02/20/22 08:24 KR Document 02/27/22 08:54 AK [id number] 02/27/22 08:56 AK 02/20/22 02/27/22 08:19 08:54 Wound Center Nurse 1 #1 left heel cluster -Combined with other wound No -Current Size (cm) - Length 4 4 -Current Size (cm) - Width 4 3.5 -Current Size (cm) - Depth 0.3 0.2 -Total Square Cm 16 14.0 -Date of Last Picture (Recall this 02/27/22 field) -Photo Taken Yes -Tunneling No -Undermining/Tunneling No -Circular Undermining No -Change in Wound Grade/Stage No -Exudate Amt Medium Large -Exudate Type Serosanguineous Serosanguineous -Wound Margin Distinct, Distinct, Outline Outline Attached Attached -Granulation Amt Medium (34-66%) Large (67-100%) -Granulation Quality [place],Red N/A,[place],Red -Slough/Fibrin No -Necrosis Amt None Present (0 None Present (0 %) %) -Necrotic Tissue Type Adherent Slough -Structure Exposed N/A -Texture (Margaret-wound Skin Appearance) Assessed,Callus Assessed,Callus ,Scarring -Moisture (Margaret-wound Skin Appearance) No Abnormality, No Abnormality, Assessed Assessed -Color (Margaret-wound Skin Appearance) No Abnormality, No Abnormality, Assessed Assessed -Temperature (Margaret-wound Skin No Abnormality No Abnormality Appearance) (Pt Warm) (Pt Warm) -Tenderness on Palpation (Margaret-wound No No Skin Appearance) -Ulcer Cleansing Rinsed/ Soap and Water Irrigated with Saline -Foul Odor after Cleansing No No -Anesthetic Used 5% Lidocaine 5% Lidocaine Gel Gel Left Calf (cm) 43.5 Left Ankle (cm) 23 WC - Nurse 2 - General Ulcer CM Notes Start: 02/18/22 09:52 Freq: Status: Active Protocol: Activity Type Activity Date Activity User E-sign Co-sign Detail Recorded Client Recorded Date Recorded By Document 02/20/22 08:33 MW [id number] 02/20/22 08:37 MW 02/20/22 08:33 Wound Center Nurse 2 #1 left heel cluster -Time 08:34 -Correct Patient Yes -Correct Side, Site, Position Yes -Correct Procedure Yes -Procedure Performed Yes -Type of Procedure Debridement -Clinical Debridement Subcutaneous -Tissue Removed Subcutaneous -Post Debridement (cm) - Length 4.0 -Post Debridement (cm) - Width 3.4 -Post Debridement (cm) - Depth 0.5 -Total Square (Post) (cm) 13.60 -Area of Debridement (cm) - Length 4.0 -Area of Debridement (cm) - Width 3.4 -Total Square (Area) (cm) 13.60 -Tunneling No -Undermining/Tunneling No -Circular Undermining No -Wound/Ulcer Outcome Not Healed -Ulcer Cleansing Rinsed/ Irrigated with Saline -Foul Odor after Cleansing No -Bioengineered Tissue No -Bleeding Controlled with Pressure -Treatment Response Procedure Tolerated Well -Offloading No -Debridement - Subq, 1st 20sq cm Yes Pain Scale: 0-10 Numeric Is Patient Pain Free? Yes WC - Nurse 3 - General Ulcer D/C NN Start: 02/18/22 09:52 Freq: Status: Active Protocol: Activity Type Activity Date Activity User E-sign Co-sign Detail Recorded Client Recorded Date Recorded By Document 02/18/22 09:52 ML [id number] 02/18/22 09:57 ML Edit Result 02/18/22 09:52 ML (1) [id number] 02/18/22 11:44 ML Document 02/19/22 11:41 ML [id number] 02/19/22 11:47 ML Document 02/20/22 12:05 AK [id number] 02/20/22 12:05 AK Document 02/21/22 10:27 ML [id number] 02/21/22 10:31 ML Document 02/22/22 09:11 ML [id number] 02/22/22 09:15 ML Document 02/25/22 11:35 ML [id number] 02/25/22 11:36 ML Document 02/26/22 09:08 ML [id number] 02/26/22 09:12 ML Document 02/27/22 08:56 AK [id number] 02/27/22 08:57 AK (1) #1 left heel cluster - Ulcer Cleansing => Soap and Water - Foul Odor after Cleansing => No - Primary Dressing Applied => Aquacel Extra - Primary Dressing Covered/Secured with => Dry Gauze & Roll => Gauze,Secured with => Tape - Aquacel Extra => 0 02/18/22 02/19/22 02/20/22 09:52 11:41 12:05 Wound Care Nurse 3 #1 left heel cluster -Ulcer Cleansing Soap and Water Soap and Water Rinsed/ Irrigated with Saline -Foul Odor after Cleansing No No No -Negative Pressure Wound Therapy N/A -Primary Dressing Applied Aquacel Extra Aquacel Extra Aquacel AG 4x4, Promogran -Other Dressing 2 KEVIN nurses hat -Primary Dressing Covered/Secured with Dry Gauze & Dry Gauze & Dry Gauze & Roll Gauze, Roll Gauze, Roll Gauze, Secured with Secured with Secured with Tape Tape Tape -Aquacel Extra 0 0 -Aquacel AG 4x4 1 -Optilok 6.5x10 -Promogran 1 -Promogran [place] Matter Left -Compression Wrap Pain Scale: 0-10 Numeric Is Patient Pain Free? Yes Yes Yes WC - Visit Discharge Discharge Condition Stable Ambulatory Status Wheelchair Transportation Private Auto Medication Reconcilliation completed & Yes provided to patient/care provider Clinical Summary of Care Provided Yes 02/21/22 02/22/22 02/25/22 10:27 09:11 11:35 Wound Care Nurse 3 #1 left heel cluster -Ulcer Cleansing Soap and Water Soap and Water Soap and Water -Foul Odor after Cleansing No No -Negative Pressure Wound Therapy N/A -Primary Dressing Applied Aquacel Extra, Aquacel Extra, Aquacel Extra, Promogran Promogran Promogran -Other Dressing KEVIN 2 kevin wraps -Primary Dressing Covered/Secured with Dry Gauze & Dry Gauze & Dry Gauze & Roll Gauze, Roll Gauze, Roll Gauze, Secured with Secured with Secured with Tape Tape Tape -Aquacel Extra 0 1 1 -Aquacel AG 4x4 -Optilok 6.5x10 -Promogran 0 1 1 -Promogran [place] Left -Compression Wrap Pain Scale: 0-10 Numeric Is Patient Pain Free? Yes Yes Yes WC - Visit Discharge Discharge Condition Ambulatory Status Transportation Medication Reconcilliation completed & provided to patient/care provider Clinical Summary of Care Provided 02/26/22 02/27/22 09:08 08:56 Wound Care Nurse 3 #1 left heel cluster -Ulcer Cleansing Soap and Water Rinsed/ Irrigated with Saline -Foul Odor after Cleansing No -Negative Pressure Wound Therapy N/A -Primary Dressing Applied Aquacel Extra, Aquacel AG 4x4, Promogran Optilok 6.5x10, Promogran [place] Matter -Other Dressing KEVIN -Primary Dressing Covered/Secured with Dry Gauze & Roll Gauze, Secured with Tape -Aquacel Extra 1 -Aquacel AG 4x4 1 -Optilok 6.5x10 1 -Promogran 1 -Promogran [place] Matter 1 Left -Compression Wrap Kevin Wrap Pain Scale: 0-10 Numeric Is Patient Pain Free? Yes Yes WC - Visit Discharge Discharge Condition Stable Ambulatory Status Wheelchair Transportation Private Auto Medication Reconcilliation completed & Yes provided to patient/care provider Clinical Summary of Care Provided Yes Assessment/Plan Assessment/Plan (1) Other acute osteomyelitis, left ankle and foot: CODE(S): M86.172 - Other acute osteomyelitis, left ankle and foot (2) Osteomyelitis: CODE(S): M86.9 - Osteomyelitis, unspecified (3) Foot osteomyelitis: CODE(S): M86.9 - Osteomyelitis, unspecified QUALIFIERS: Osteomyelitis type: other acute Laterality: left Qualified Code(s): M86.172 - Other acute osteomyelitis, left ankle and foot (4) Chronic ulcer of left foot with necrosis of bone: CODE(S): L97.524 - Non-pressure chronic ulcer of other part of left foot with necrosis of bone (5) Type 2 diabetes mellitus with diabetic polyneuropathy: CODE(S): E11.42 - Type 2 diabetes mellitus with diabetic polyneuropathy QUALIFIERS: Diabetes mellitus group home insulin use: with group home use Qualified Code(s): E11.42 - Type 2 diabetes mellitus with diabetic polyneuropathy; Z79.4 - shelter (current) use of insulin (6) Diabetic foot ulcer: CODE(S): E11.621 - Type 2 diabetes mellitus with foot ulcer; L97.509 - Non-pressure chronic ulcer of other part of unspecified foot with unspecified severity QUALIFIERS: Diabetic foot ulcer location: heel Diabetes mellitus type: type 2 Laterality: left Non-pressure ulcer stage: with fat layer exposed Qualified Code(s): E11.621 - Type 2 diabetes mellitus with foot ulcer; L97.422 - Non-pressure chronic ulcer of left heel and midfoot with fat layer exposed (7) Osteomyelitis of foot, left, acute: CODE(S): M86.172 - Other acute osteomyelitis, left ankle and foot (8) CAD (coronary artery disease): CODE(S): I25.10 - Atherosclerotic heart disease of [place] coronary artery without angina pectoris (9) Decubitus ulcer of left heel, stage 3: CODE(S): L89.623 - Pressure ulcer of left heel, stage 3 PLAN: L okay foot debridement and apply Promogran to wound base with Aquacel extra over top then extra absorbent dressing over top and double layer Tubigrip with Kevin wrap over top. Ordered wound VAC to start left heel 150 mmHg Nursing to apply follow-up in 1 week PLAN: Plan The patient appears to be tolerating hyperbaric oxygen therapy well, which will be continued as per the patient's medical plan.
--- NOTE | 2022-02-27 10:00 | PCM.WC.PN ---
History of Present Illness Date of Service: 02/27/22 Chief Complaint: Osteomyelitis and chronic delayed healing ulcer, left foot History of Wound: The patient presented for a chronic, non-healing wound to left heel with osteomyelitis. A limb and life-threatening infection required emergent surgical intervention on 05-29-2021. 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 He denies fever, chill, nausea, vomiting, pain, odor, redness today. He is keeping weight off of his foot. He continues to take antibiotics as advised and is also undergoing hyperbaric oxygen therapy treatments. He continues on blood thinner due to his deep venous thrombosis and his leg swelling is starting to reduce. Progress of Wound: So the wound is measuring about the same slightly smaller in circumference depth is about the same still 1.0. Still has a lot of discharge even with the Promogran and Aquacel extra. It is because he keeps walking on it. Convinced him to try maybe a wound VAC again on the heel to see if we can get it to close better. Did develop some undermining from 12-2 about 1 inch under the skin we will try to close that with the wound VAC Subjective Subjective Patient has agreed to plan Objective Data Objective Data Developed some undermining 12-2 still looks macerated around the edge. Does have new cell growth in the center but has 1 deep and area that I think the wound VAC would help pull that skin up better. That seems to be where he is most tender to. Vital Signs: Vital Signs Temp Pulse Resp BP 97.1 F L 61 19 H 124/56 H 02/27/22 08:54 02/27/22 08:54 02/26/22 09:08 02/27/22 08:54 Body Mass Index (BMI) 33.7 Lab / Micro Data Attestation: I reviewed the patient's lab results. Labs: Laboratory Results - last 24 hr 02/26/22 10:49: POC Glucose 196 H Physical Exam Const alert, oriented x3 and no apparent distress General Appearance: cooperative and well developed HEENT normocephalic and EAC's normal Head and Scalp: atraumatic Eyes PERRL and EOMs intact bilaterally Eyes Narrative: Bilateral ear tubes in place. Neck no JVD Resp normal respiratory effort and no use of accessory muscles Effort and Inspection: able to speak in complete sentences Psych affect normal Debridement Note Debridement Note Wound debrided: Left heel Laterality: Left Wound Grade/Stage: Stage III Anesthesia Used: 5% Lidocaine Gel Percentage of wound debrided: 100 Instrument Used: 7mm curette Tissue Removed: Fibrin Severity: Fat Layer Exposed Amount of bleeding with debridement: Mild Bleeding Controlled with: Compression and gauze Patient tolerated procedure: Patient tolerated procedure well Post-Debridement Measurements and Additional Note: Post-Debridement Measurements/Treatment WC - Nurse 1 - General Ulcer Assessment Start: 02/18/22 09:52 Freq: Status: Active Protocol: [facility] Activity Type Activity Date Activity User E-sign Co-sign Detail Recorded Client Recorded Date Recorded By Document 02/20/22 08:19 KR [id number] 02/20/22 08:24 KR Document 02/27/22 08:54 AK [id number] 02/27/22 08:56 AK 02/20/22 02/27/22 08:19 08:54 WC - Today's Visit Information Type of service Follow-up Visit Follow-up Visit (Physician/EXHAUST EMISSIONS INSPECTOR (Physician/EXHAUST EMISSIONS INSPECTOR ) ) Arrival Mode Wheelchair Wheelchair Patient Identification Verified (Name & Yes Yes ) Patient Requires Transmission-Based No Precautions Safety Precautions NA Height and Weight Body Mass Index (BMI) 33.7 33.7 BMI Classification Obese Obese Vital Signs Temperature (97.8 F-99.1 F) 98.2 F 97.1 F L Temperature Source Temporal Temporal Pulse Rate (60-100) 59 L 61 Pulse Location Monitor Monitor Blood Pressure (90/60-120/80) 107/55 L 124/56 H Blood Pressure Mean (mm Hg) 72 78 Source Monitor Monitor Position Sitting Blood Pressure Location Right Arm History Since Last Visit- (Skip if this is Patient's initial visit) Have you changed medications since your No No last visit? Any new allergies or adverse reactions No No Had a fall/change in ADL's that may No No increase risk of falls Signs or symptoms of abuse and/or No No neglect since last visit Have you been in the hospital since your No No last visit? Has dressing in place as prescribed Yes Yes Has compression in place as prescribed N/A Yes Has offloadiing in place as prescribed N/A Yes Experienced any changes in pain level or No No management Left Footwear Removable Cast Regular Shoe Walker/Walking Boot Right Footwear Regular Shoe Removable Cast Walker/Walking Boot Pain Scale: 0-10 Numeric Is Patient Pain Free? Yes Yes WC - Nurse 1 - General Ulcer Measurement Start: 02/18/22 09:52 Freq: Status: Active Protocol: Activity Type Activity Date Activity User E-sign Co-sign Detail Recorded Client Recorded Date Recorded By Document 02/20/22 08:19 KR [id number] 02/20/22 08:24 KR Document 02/27/22 08:54 AK [id number] 02/27/22 08:56 AK 02/20/22 02/27/22 08:19 08:54 Wound Center Nurse 1 #1 left heel cluster -Combined with other wound No -Current Size (cm) - Length 4 4 -Current Size (cm) - Width 4 3.5 -Current Size (cm) - Depth 0.3 0.2 -Total Square Cm 16 14.0 -Date of Last Picture (Recall this 02/27/22 field) -Photo Taken Yes -Tunneling No -Undermining/Tunneling No -Circular Undermining No -Change in Wound Grade/Stage No -Exudate Amt Medium Large -Exudate Type Serosanguineous Serosanguineous -Wound Margin Distinct, Distinct, Outline Outline Attached Attached -Granulation Amt Medium (34-66%) Large (67-100%) -Granulation Quality [place],Red N/A,[place],Red -Slough/Fibrin No -Necrosis Amt None Present (0 None Present (0 %) %) -Necrotic Tissue Type Adherent Slough -Structure Exposed N/A -Texture (Margaret-wound Skin Appearance) Assessed,Callus Assessed,Callus ,Scarring -Moisture (Margaret-wound Skin Appearance) No Abnormality, No Abnormality, Assessed Assessed -Color (Margaret-wound Skin Appearance) No Abnormality, No Abnormality, Assessed Assessed -Temperature (Margaret-wound Skin No Abnormality No Abnormality Appearance) (Pt Warm) (Pt Warm) -Tenderness on Palpation (Margaret-wound No No Skin Appearance) -Ulcer Cleansing Rinsed/ Soap and Water Irrigated with Saline -Foul Odor after Cleansing No No -Anesthetic Used 5% Lidocaine 5% Lidocaine Gel Gel Left Calf (cm) 43.5 Left Ankle (cm) 23 WC - Nurse 2 - General Ulcer CM Notes Start: 02/18/22 09:52 Freq: Status: Active Protocol: Activity Type Activity Date Activity User E-sign Co-sign Detail Recorded Client Recorded Date Recorded By Document 02/20/22 08:33 MW [id number] 02/20/22 08:37 MW 02/20/22 08:33 Wound Center Nurse 2 #1 left heel cluster -Time 08:34 -Correct Patient Yes -Correct Side, Site, Position Yes -Correct Procedure Yes -Procedure Performed Yes -Type of Procedure Debridement -Clinical Debridement Subcutaneous -Tissue Removed Subcutaneous -Post Debridement (cm) - Length 4.0 -Post Debridement (cm) - Width 3.4 -Post Debridement (cm) - Depth 0.5 -Total Square (Post) (cm) 13.60 -Area of Debridement (cm) - Length 4.0 -Area of Debridement (cm) - Width 3.4 -Total Square (Area) (cm) 13.60 -Tunneling No -Undermining/Tunneling No -Circular Undermining No -Wound/Ulcer Outcome Not Healed -Ulcer Cleansing Rinsed/ Irrigated with Saline -Foul Odor after Cleansing No -Bioengineered Tissue No -Bleeding Controlled with Pressure -Treatment Response Procedure Tolerated Well -Offloading No -Debridement - Subq, 1st 20sq cm Yes Pain Scale: 0-10 Numeric Is Patient Pain Free? Yes WC - Nurse 3 - General Ulcer D/C NN Start: 02/18/22 09:52 Freq: Status: Active Protocol: Activity Type Activity Date Activity User E-sign Co-sign Detail Recorded Client Recorded Date Recorded By Document 02/18/22 09:52 ML [id number] 02/18/22 09:57 ML Edit Result 02/18/22 09:52 ML (1) [id number] 02/18/22 11:44 ML Document 02/19/22 11:41 ML [id number] 02/19/22 11:47 ML Document 02/20/22 12:05 AK [id number] 02/20/22 12:05 AK Document 02/21/22 10:27 ML [id number] 02/21/22 10:31 ML Document 02/22/22 09:11 ML [id number] 02/22/22 09:15 ML Document 02/25/22 11:35 ML [id number] 02/25/22 11:36 ML Document 02/26/22 09:08 ML [id number] 02/26/22 09:12 ML Document 02/27/22 08:56 AK [id number] 02/27/22 08:57 AK (1) #1 left heel cluster - Ulcer Cleansing => Soap and Water - Foul Odor after Cleansing => No - Primary Dressing Applied => Aquacel Extra - Primary Dressing Covered/Secured with => Dry Gauze & Roll => Gauze,Secured with => Tape - Aquacel Extra => 0 02/18/22 02/19/22 02/20/22 09:52 11:41 12:05 Wound Care Nurse 3 #1 left heel cluster -Ulcer Cleansing Soap and Water Soap and Water Rinsed/ Irrigated with Saline -Foul Odor after Cleansing No No No -Negative Pressure Wound Therapy N/A -Primary Dressing Applied Aquacel Extra Aquacel Extra Aquacel AG 4x4, Promogran -Other Dressing 2 KEVIN nurses hat -Primary Dressing Covered/Secured with Dry Gauze & Dry Gauze & Dry Gauze & Roll Gauze, Roll Gauze, Roll Gauze, Secured with Secured with Secured with Tape Tape Tape -Aquacel Extra 0 0 -Aquacel AG 4x4 1 -Optilok 6.5x10 -Promogran 1 -Promogran Pay[place] Matter Left -Compression Wrap Pain Scale: 0-10 Numeric Is Patient Pain Free? Yes Yes Yes WC - Visit Discharge Discharge Condition Stable Ambulatory Status Wheelchair Transportation Private Auto Medication Reconcilliation completed & Yes provided to patient/care provider Clinical Summary of Care Provided Yes 02/21/22 02/22/22 02/25/22 10:27 09:11 11:35 Wound Care Nurse 3 #1 left heel cluster -Ulcer Cleansing Soap and Water Soap and Water Soap and Water -Foul Odor after Cleansing No No -Negative Pressure Wound Therapy N/A -Primary Dressing Applied Aquacel Extra, Aquacel Extra, Aquacel Extra, Promogran Promogran Promogran -Other Dressing KEVIN 2 kevin wraps -Primary Dressing Covered/Secured with Dry Gauze & Dry Gauze & Dry Gauze & Roll Gauze, Roll Gauze, Roll Gauze, Secured with Secured with Secured with Tape Tape Tape -Aquacel Extra 0 1 1 -Aquacel AG 4x4 -Optilok 6.5x10 -Promogran 0 1 1 -Promogran Pay[place] Matter Left -Compression Wrap Pain Scale: 0-10 Numeric Is Patient Pain Free? Yes Yes Yes WC - Visit Discharge Discharge Condition Ambulatory Status Transportation Medication Reconcilliation completed & provided to patient/care provider Clinical Summary of Care Provided 02/26/22 02/27/22 09:08 08:56 Wound Care Nurse 3 #1 left heel cluster -Ulcer Cleansing Soap and Water Rinsed/ Irrigated with Saline -Foul Odor after Cleansing No -Negative Pressure Wound Therapy N/A -Primary Dressing Applied Aquacel Extra, Aquacel AG 4x4, Promogran Optilok 6.5x10, Promogran Payton Matter -Other Dressing KEVIN -Primary Dressing Covered/Secured with Dry Gauze & Roll Gauze, Secured with Tape -Aquacel Extra 1 -Aquacel AG 4x4 1 -Optilok 6.5x10 1 -Promogran 1 -Promogran Payton Matter 1 Left -Compression Wrap Kevin Wrap Pain Scale: 0-10 Numeric Is Patient Pain Free? Yes Yes WC - Visit Discharge Discharge Condition Stable Ambulatory Status Wheelchair Transportation Private Auto Medication Reconcilliation completed & Yes provided to patient/care provider Clinical Summary of Care Provided Yes Assessment/Plan Assessment/Plan (1) Other acute osteomyelitis, left ankle and foot: CODE(S): M86.172 - Other acute osteomyelitis, left ankle and foot (2) Osteomyelitis: CODE(S): M86.9 - Osteomyelitis, unspecified (3) Foot osteomyelitis: CODE(S): M86.9 - Osteomyelitis, unspecified QUALIFIERS: Osteomyelitis type: other acute Laterality: left Qualified Code(s): M86.172 - Other acute osteomyelitis, left ankle and foot (4) Chronic ulcer of left foot with necrosis of bone: CODE(S): L97.524 - Non-pressure chronic ulcer of other part of left foot with necrosis of bone (5) Type 2 diabetes mellitus with diabetic polyneuropathy: CODE(S): E11.42 - Type 2 diabetes mellitus with diabetic polyneuropathy QUALIFIERS: Diabetes mellitus [facility] insulin use: with terminologist use Qualified Code(s): E11.42 - Type 2 diabetes mellitus with diabetic polyneuropathy; Z79.4 - intermediate (current) use of insulin (6) Diabetic foot ulcer: CODE(S): E11.621 - Type 2 diabetes mellitus with foot ulcer; L97.509 - Non-pressure chronic ulcer of other part of unspecified foot with unspecified severity QUALIFIERS: Diabetic foot ulcer location: heel Diabetes mellitus type: type 2 Laterality: left Non-pressure ulcer stage: with fat layer exposed Qualified Code(s): E11.621 - Type 2 diabetes mellitus with foot ulcer; L97.422 - Non-pressure chronic ulcer of left heel and midfoot with fat layer exposed (7) Osteomyelitis of foot, left, acute: CODE(S): M86.172 - Other acute osteomyelitis, left ankle and foot (8) CAD (coronary artery disease): CODE(S): I25.10 - Atherosclerotic heart disease of [place] coronary artery without angina pectoris (9) Decubitus ulcer of left heel, stage 3: CODE(S): L89.623 - Pressure ulcer of left heel, stage 3 PLAN: L okay foot debridement and apply Promogran to wound base with Aquacel extra over top then extra absorbent dressing over top and double layer Tubigrip with Kevin wrap over top. Ordered wound VAC to start left heel 150 mmHg Nursing to apply follow-up in 1 week PLAN: Plan The patient appears to be tolerating hyperbaric oxygen therapy well, which will be continued as per the patient's medical plan.
[2022-02-28 09:21] LABS: Bedside Glucose 255 mg/dL (74-106)
[2022-02-28 09:26] LABS: Bedside Glucose 212 mg/dL (74-106)
[2022-02-28 10:29] VITALS: BP 113/56; BP 125/65; PULSE 55; PULSE 58; RESP 18; RESP 19; TEMP 35.9
[2022-02-28 11:36] LABS: Bedside Glucose 245 mg/dL (74-106)
--- NOTE | 2022-02-28 13:10 | PCM.HBO.PN ---
History of Present Illness Date of Service: 02/28/22 Chief Complaint: Osteomyelitis and chronic delayed healing ulcer, left foot History of Wound: The patient presented for a chronic, non-healing wound to left heel with osteomyelitis. A limb and life-threatening infection required emergent surgical intervention on 05-29-2021. 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 He denies fever, chill, nausea, vomiting, pain, odor, redness today. He is keeping weight off of his foot. He continues to take antibiotics as advised and is also undergoing hyperbaric oxygen therapy treatments. He continues on blood thinner due to his deep venous thrombosis and his leg swelling is starting to reduce. Progress of Wound: Today represents the 49th session of hyperbaric oxygen therapy. Hyperbaric oxygen therapy was administered as per the facility's protocol. Hyperbaric oxygen therapy was administered at 2 abena for 90 minutes with no air breaks.? The patient tolerated hyperbaric oxygen therapy well, without complaints or complications.? Upon emergence from the hyperbaric chamber, the patient's vital signs remained stable.? He was discharged in good condition. Objective Data Objective Data Vital Signs: Vital Signs Temp Pulse Resp BP 96.6 F L 58 L 18 113/56 L 02/28/22 10:29 02/28/22 10:29 02/28/22 10:29 02/28/22 10:29 Body Mass Index (BMI) 33.7 Lab / Micro Data Labs: Laboratory Results - last 24 hr 02/28/22 08:45: POC Glucose 255 H 02/28/22 09:06: POC Glucose 212 H 02/28/22 11:14: POC Glucose 245 H Exam Physical Exam Const alert, oriented x3 and no apparent distress General Appearance: cooperative HEENT normocephalic Eyes Eyes Narrative: Bilateral ear tubes in place. Resp normal respiratory effort and no use of accessory muscles Psych affect normal Nursing Assessment and Debridement Post-Debridement Measurements and Additional Note: Post-Debridement Measurements/Treatment WC - Nurse 1 - General Ulcer Assessment Start: 02/18/22 09:52 Freq: Status: Active Protocol: [email or web address] Activity Type Activity Date Activity User E-sign Co-sign Detail Recorded Client Recorded Date Recorded By Document 02/27/22 08:54 DAVID [id number] 02/27/22 08:56 AK 02/27/22 08:54 - Today's Visit Information Type of service Follow-up Visit (Physician/SUPERVISOR CARTOGRAPHY ) Arrival Mode Wheelchair Patient Identification Verified (Name & Yes ) Patient Requires Transmission-Based No Precautions Safety Precautions NA Height and Weight Body Mass Index (BMI) 33.7 BMI Classification Obese Vital Signs Temperature (97.8 F-99.1 F) 97.1 F L Temperature Source Temporal Pulse Rate (60-100) 61 Pulse Location Monitor Blood Pressure (90/60-120/80) 124/56 H Blood Pressure Mean (mm Hg) 78 Source Monitor History Since Last Visit- (Skip if this is Patient's initial visit) Have you changed medications since your No last visit? Any new allergies or adverse reactions No Had a fall/change in ADL's that may No increase risk of falls Signs or symptoms of abuse and/or No neglect since last visit Have you been in the hospital since your No last visit? Has dressing in place as prescribed Yes Has compression in place as prescribed Yes Has offloadiing in place as prescribed Yes Experienced any changes in pain level or No management Left Footwear Regular Shoe Right Footwear Removable Cast Walker/Walking Boot Pain Scale: 0-10 Numeric Is Patient Pain Free? Yes - Nurse 1 - General Ulcer Measurement Start: 02/18/22 09:52 Freq: Status: Active Protocol: Activity Type Activity Date Activity User E-sign Co-sign Detail Recorded Client Recorded Date Recorded By Document 02/27/22 08:54 IN [id number] 02/27/22 08:56 IN 02/27/22 08:54 Wound Center Nurse 1 #1 left heel cluster -Combined with other wound No -Current Size (cm) - Length 4 -Current Size (cm) - Width 3.5 -Current Size (cm) - Depth 0.2 -Total Square Cm 14.0 -Date of Last Picture (Recall this 02/27/22 field) -Photo Taken Yes -Tunneling No -Undermining/Tunneling No -Circular Undermining No -Change in Wound Grade/Stage No -Exudate Amt Large -Exudate Type Serosanguineous -Wound Margin Distinct, Outline Attached -Granulation Amt Large (67-100%) -Granulation Quality N/A,[place],Red -Slough/Fibrin No -Necrosis Amt None Present (0 %) -Structure Exposed N/A -Texture (Margaret-wound Skin Appearance) Assessed,Callus -Moisture (Margaret-wound Skin Appearance) No Abnormality, Assessed -Color (Margaret-wound Skin Appearance) No Abnormality, Assessed -Temperature (Margaret-wound Skin No Abnormality Appearance) (Pt Warm) -Tenderness on Palpation (Margaret-wound No Skin Appearance) -Ulcer Cleansing Soap and Water -Foul Odor after Cleansing No -Anesthetic Used 5% Lidocaine Gel Left Calf (cm) 43.5 Left Ankle (cm) 23 WC - Nurse 2 - General Ulcer CM Notes Start: 02/18/22 09:52 Freq: Status: Active Protocol: Activity Type Activity Date Activity User E-sign Co-sign Detail Recorded Client Recorded Date Recorded By Document 02/27/22 08:31 MW [id number] 02/27/22 09:21 MW 02/27/22 08:31 Wound Center Nurse 2 #1 left heel cluster -Time 08:31 -Correct Patient Yes -Correct Side, Site, Position Yes -Correct Procedure Yes -Procedure Performed Yes -Type of Procedure Debridement -Clinical Debridement Subcutaneous -Tissue Removed Subcutaneous -Post Debridement (cm) - Length 4.1 -Post Debridement (cm) - Width 3.6 -Post Debridement (cm) - Depth 1.0 -Total Square (Post) (cm) 14.76 -Area of Debridement (cm) - Length 4.1 -Area of Debridement (cm) - Width 3.6 -Total Square (Area) (cm) 14.76 -Tunneling No -Undermining/Tunneling Yes -Undermining/Tunneling Starts (O'clock 6 ) -Undermining/Tunneling Ends (O'clock) 9 -Maximum Distance (cm) 0.7 -Circular Undermining No -Wound/Ulcer Outcome Not Healed -Ulcer Cleansing Rinsed/ Irrigated with Saline -Foul Odor after Cleansing No -Bioengineered Tissue No -Bleeding Controlled with Pressure -Treatment Response Procedure Tolerated Well -Offloading No -Debridement - Subq, 1st 20sq cm Yes Pain Scale: 0-10 Numeric Is Patient Pain Free? Yes JANESSA - Nurse 3 - General Ulcer D/C NN Start: 02/18/22 09:52 Freq: Status: Active Protocol: Activity Type Activity Date Activity User E-sign Co-sign Detail Recorded Client Recorded Date Recorded By Document 02/26/22 09:08 ML [id number] 02/26/22 09:12 ML Document 02/27/22 08:56 AK [id number] 02/27/22 08:57 AK Document 02/28/22 10:29 ML [id number] 02/28/22 10:33 ML 02/26/22 02/27/22 02/28/22 09:08 08:56 10:29 Wound Care Nurse 3 #1 left heel cluster -Ulcer Cleansing Soap and Water Rinsed/ Soap and Water Irrigated with Saline -Foul Odor after Cleansing No No -Negative Pressure Wound Therapy N/A -Primary Dressing Applied Aquacel Extra, Aquacel AG 4x4, Aquacel Extra, Promogran Optilok 6.5x10, Promogran Promogran [place] Matter -Other Dressing KEVIN KEVIN -Primary Dressing Covered/Secured with Dry Gauze & Dry Gauze & Roll Gauze, Roll Gauze, Secured with Secured with Tape Tape -Aquacel Extra 1 0 -Aquacel AG 4x4 1 -Optilok 6.5x10 1 -Promogran 1 1 -Promogran [place] Matter 1 Left -Compression Wrap Kevin Wrap Pain Scale: 0-10 Numeric Is Patient Pain Free? Yes Yes Yes WC - Visit Discharge Discharge Condition Stable Ambulatory Status Wheelchair Transportation Private Auto Medication Reconcilliation completed & Yes provided to patient/care provider Clinical Summary of Care Provided Yes Charges/Coding Wound Center CF Procedures HBO Supervision: [id number] Hyperbaric Oxygen; supervision Assessment/Plan Assessment/Plan (1) Other acute osteomyelitis, left ankle and foot: CODE(S): M86.172 - Other acute osteomyelitis, left ankle and foot (2) Osteomyelitis: CODE(S): M86.9 - Osteomyelitis, unspecified (3) Foot osteomyelitis: CODE(S): M86.9 - Osteomyelitis, unspecified QUALIFIERS: Osteomyelitis type: other acute Laterality: left Qualified Code(s): M86.172 - Other acute osteomyelitis, left ankle and foot (4) Chronic ulcer of left foot with necrosis of bone: CODE(S): L97.524 - Non-pressure chronic ulcer of other part of left foot with necrosis of bone (5) Type 2 diabetes mellitus with diabetic polyneuropathy: CODE(S): E11.42 - Type 2 diabetes mellitus with diabetic polyneuropathy QUALIFIERS: Diabetes mellitus rn long term care insulin use: with jail use Qualified Code(s): E11.42 - Type 2 diabetes mellitus with diabetic polyneuropathy; Z79.4 - supervisor intermediates (current) use of insulin (6) Diabetic foot ulcer: CODE(S): E11.621 - Type 2 diabetes mellitus with foot ulcer; L97.509 - Non-pressure chronic ulcer of other part of unspecified foot with unspecified severity QUALIFIERS: Diabetic foot ulcer location: heel Diabetes mellitus type: type 2 Laterality: left Non-pressure ulcer stage: with fat layer exposed Qualified Code(s): E11.621 - Type 2 diabetes mellitus with foot ulcer; L97.422 - Non-pressure chronic ulcer of left heel and midfoot with fat layer exposed PLAN: Plan The patient tolerated hyperbaric oxygen therapy well which will be continued as per his medical plan. This note was generated with [employer] dictation software. It may contain incorrect words, spelling, and punctuation that were not noted in checking the note before signing.
--- NOTE | 2022-03-04 08:59 | PCM.HBO.PN ---
History of Present Illness Date of Service: 03/04/22 Chief Complaint: Osteomyelitis and chronic delayed healing ulcer, left foot History of Wound: The patient presented for a chronic, non-healing wound to left heel with osteomyelitis. A limb and life-threatening infection required emergent surgical intervention on 05-29-2021. 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 He denies fever, chill, nausea, vomiting, pain, odor, redness today. He is keeping weight off of his foot. He continues to take antibiotics as advised and is also undergoing hyperbaric oxygen therapy treatments. He continues on blood thinner due to his deep venous thrombosis and his leg swelling is starting to reduce. Progress of Wound: Today represents the 49th session of hyperbaric oxygen therapy. Hyperbaric oxygen therapy was administered as per the facility's protocol. Hyperbaric oxygen therapy was administered at 2 abena for 90 minutes with no air breaks.? The patient tolerated hyperbaric oxygen therapy well, without complaints or complications.? Upon emergence from the hyperbaric chamber, the patient's vital signs remained stable.? He was discharged in good condition. Objective Data Objective Data Vital Signs: Vital Signs Temp Pulse Resp BP 96.6 F L 58 L 18 113/56 L 02/28/22 10:29 02/28/22 10:29 02/28/22 10:29 02/28/22 10:29 Body Mass Index (BMI) 33.7 Exam Physical Exam Const alert, oriented x3 and no apparent distress General Appearance: cooperative HEENT normocephalic Eyes Eyes Narrative: Bilateral ear tubes in place. Resp normal respiratory effort and no use of accessory muscles Auscultation: wheezes scattered wheezes and throughout Psych affect normal Assessment/Plan Assessment/Plan (1) Other acute osteomyelitis, left ankle and foot: CODE(S): M86.172 - Other acute osteomyelitis, left ankle and foot (2) Osteomyelitis: CODE(S): M86.9 - Osteomyelitis, unspecified (3) Foot osteomyelitis: CODE(S): M86.9 - Osteomyelitis, unspecified QUALIFIERS: Laterality: left Osteomyelitis type: other acute Qualified Code(s): M86.172 - Other acute osteomyelitis, left ankle and foot (4) Chronic ulcer of left foot with necrosis of bone: CODE(S): L97.524 - Non-pressure chronic ulcer of other part of left foot with necrosis of bone (5) Type 2 diabetes mellitus with diabetic polyneuropathy: CODE(S): E11.42 - Type 2 diabetes mellitus with diabetic polyneuropathy QUALIFIERS: Diabetes mellitus residential insulin use: with senior analytical chemist use Qualified Code(s): E11.42 - Type 2 diabetes mellitus with diabetic polyneuropathy; Z79.4 - custodial (current) use of insulin (6) Diabetic foot ulcer: CODE(S): E11.621 - Type 2 diabetes mellitus with foot ulcer; L97.509 - Non-pressure chronic ulcer of other part of unspecified foot with unspecified severity QUALIFIERS: Diabetes mellitus type: type 2 Diabetic foot ulcer location: heel Laterality: left Non-pressure ulcer stage: with fat layer exposed Qualified Code(s): E11.621 - Type 2 diabetes mellitus with foot ulcer; L97.422 - Non-pressure chronic ulcer of left heel and midfoot with fat layer exposed PLAN: Plan The patient tolerated hyperbaric oxygen therapy well which will be continued as per his medical plan. This note was generated with [employer] software. It may contain incorrect words, spelling, and punctuation that were not noted in checking the note before signing.
[2022-03-04 09:01] LABS: Bedside Glucose 164 mg/dL (74-106)
[2022-03-04 12:01] VITALS: BP 117/61; BP 119/55; PULSE 55; PULSE 56; RESP 18; RESP 20; TEMP 36.4
[2022-03-04 12:01] LABS: Bedside Glucose 173 mg/dL (74-106)
[2022-03-05 09:06] LABS: Bedside Glucose 170 mg/dL (74-106)
[2022-03-05 11:16] LABS: Bedside Glucose 163 mg/dL (74-106)
[2022-03-05 11:29] VITALS: BP 130/63; BP 131/66; PULSE 52; PULSE 57; RESP 20; TEMP 36.4
--- NOTE | 2022-03-05 14:11 | HBO.PN.PCM_ITS ---
History of Present Illness Date of Service: 03/05/22 Chief Complaint: Osteomyelitis and chronic delayed healing ulcer, left foot History of Wound: The patient presented for a chronic, non-healing wound to left heel with osteomyelitis. A limb and life-threatening infection required emergent surgical intervention on 05-29-2021. 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 He denies fever, chill, nausea, vomiting, pain, odor, redness. He is keeping weight off of his foot. He undergoing hyperbaric oxygen therapy treatments. He continues on blood thinner due to his deep venous thrombosis and his leg swelling is starting to reduce. Progress of Wound: Today represents the 50th session of hyperbaric oxygen therapy. Hyperbaric oxygen therapy was administered as per the facility's protocol. Hyperbaric oxygen therapy was administered at 2 abena for 90 minutes with no air breaks.? The patient tolerated hyperbaric oxygen therapy well, without complaints or complications.? Upon emergence from the hyperbaric chamber, the patient's vital signs remained stable.? He was discharged in good condition. Pre- and post- blood glucose measurements are documented elsewhere. Objective Data Objective Data Vital Signs: Vital Signs Temp Pulse Resp BP 97.6 F L 57 L 20 H 130/63 H 03/05/22 11:29 03/05/22 11:29 03/05/22 11:29 03/05/22 11:29 Body Mass Index (BMI) 33.7 Lab / Micro Data Labs: Laboratory Results - last 24 hr 03/05/22 08:48: POC Glucose 170 H 03/05/22 10:56: POC Glucose 163 H Exam Physical Exam Const alert, oriented x3, no apparent distress and well nourished General Appearance: cooperative and well developed HEENT normocephalic and EAC's normal Head and Scalp: atraumatic Eyes PERRL and EOMs intact bilaterally Neck General: trachea midline Resp normal respiratory effort and no use of accessory muscles Effort and Inspection: able to speak in complete sentences Psych affect normal Appearance: grossly normal and well kempt Nursing Assessment and Debridement Post-Debridement Measurements and Additional Note: Post-Debridement Measurements/Treatment WC - Nurse 3 - General Ulcer D/C NN Start: 02/18/22 09:52 Freq: Status: Active Protocol: Activity Type Activity Date Activity User E-sign Co-sign Detail Recorded Client Recorded Date Recorded By Document 03/04/22 12:01 ML [id number] 03/04/22 12:05 ML Document 03/05/22 11:29 ML [id number] 03/05/22 11:33 ML 03/04/22 03/05/22 12:01 11:29 Wound Care Nurse 3 #1 left heel cluster -Ulcer Cleansing Soap and Water Soap and Water -Foul Odor after Cleansing No No -Negative Pressure Wound Therapy Start -Setting (mmHg) 150 -Negative Pressure is Continuous -Primary Dressing Applied Aquacel Extra, Promogran -Other Dressing aayush -Primary Dressing Covered/Secured with Dry Gauze & Roll Gauze, Secured with Tape -NPWT Application Charge NPWT </= 50 sq cm ($) -Aquacel Extra 1 -Promogran 1 Pain Scale: 0-10 Numeric Is Patient Pain Free? Yes Yes Assessment/Plan Assessment/Plan (1) Other acute osteomyelitis, left ankle and foot: CODE(S): M86.172 - Other acute osteomyelitis, left ankle and foot (2) Osteomyelitis: CODE(S): M86.9 - Osteomyelitis, unspecified (3) Foot osteomyelitis: CODE(S): M86.9 - Osteomyelitis, unspecified QUALIFIERS: Osteomyelitis type: other acute Laterality: left Qualified Code(s): M86.172 - Other acute osteomyelitis, left ankle and foot (4) Chronic ulcer of left foot with necrosis of bone: CODE(S): L97.524 - Non-pressure chronic ulcer of other part of left foot with necrosis of bone (5) Type 2 diabetes mellitus with diabetic polyneuropathy: CODE(S): E11.42 - Type 2 diabetes mellitus with diabetic polyneuropathy QUALIFIERS: Diabetes mellitus penitentiary insulin use: with penitentiary use Qualified Code(s): E11.42 - Type 2 diabetes mellitus with diabetic polyneuropathy; Z79.4 - assisted (current) use of insulin (6) Diabetic foot ulcer: CODE(S): E11.621 - Type 2 diabetes mellitus with foot ulcer; L97.509 - Non-pressure chronic ulcer of other part of unspecified foot with unspecified severity QUALIFIERS: Diabetic foot ulcer location: heel Diabetes mellitus type: type 2 Laterality: left Non-pressure ulcer stage: with fat layer exposed Qualified Code(s): E11.621 - Type 2 diabetes mellitus with foot ulcer; L97.422 - Non-pressure chronic ulcer of left heel and midfoot with fat layer exposed PLAN: Plan The patient tolerated hyperbaric oxygen therapy well, which will be continued as per his medical plan. This note was generated with [employer] dictation software. It may contain incorrect words, spelling, and punctuation that were not noted in checking the note before signing.
[2022-03-06 09:20] LABS: Bedside Glucose 186 mg/dL (74-106)
[2022-03-06 10:54] VITALS: BP 115/66; BP 137/67; PULSE 53; PULSE 62; RESP 18; RESP 19; TEMP 35.7; TEMP 36
[2022-03-06 11:30] LABS: Bedside Glucose 118 mg/dL (74-106)
--- NOTE | 2022-03-06 12:17 | HBO.PN.PCM_ITS ---
History of Present Illness Date of Service: 03/06/22 Chief Complaint: Osteomyelitis and chronic delayed healing ulcer, left foot History of Wound: The patient presented for a chronic, non-healing wound to left heel with osteomyelitis. A limb and life-threatening infection required emergent surgical intervention on 05-29-2021. 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 He denies fever, chill, nausea, vomiting, pain, odor, redness. He is keeping weight off of his foot. He undergoing hyperbaric oxygen therapy treatments. He continues on blood thinner due to his deep venous thrombosis and his leg swelling is starting to reduce. Progress of Wound: Today represents the 51st session of hyperbaric oxygen therapy. Hyperbaric oxygen therapy was administered as per the facility's protocol. Hyperbaric oxygen therapy was administered at 2 abena for 90 minutes with no air breaks.? The patient tolerated hyperbaric oxygen therapy well, without complaints or complications.? Upon emergence from the hyperbaric chamber, the patient's vital signs remained stable.? He was discharged in good condition. Pre- and post- blood glucose measurements are documented elsewhere. Objective Data Objective Data Vital Signs: Vital Signs Temp Pulse Resp BP 96.3 F L 62 18 115/66 03/06/22 10:54 03/06/22 10:54 03/06/22 10:54 03/06/22 10:54 Body Mass Index (BMI) 33.7 Lab / Micro Data Labs: Laboratory Results - last 24 hr 03/06/22 08:48: POC Glucose 186 H 03/06/22 11:10: POC Glucose 118 H Exam Physical Exam Const alert, oriented x3 and no apparent distress General Appearance: cooperative HEENT normocephalic HEENT Narrative: Bilateral ear tubes in place. Patient is hard of hearing. Resp normal respiratory effort and no use of accessory muscles Auscultation: wheezes scattered wheezes and throughout Cardio regular rate and regular rhythm Psych affect normal Appearance: well kempt Nursing Assessment and Debridement Post-Debridement Measurements and Additional Note: Post-Debridement Measurements/Treatment WC - Nurse 3 - General Ulcer D/C NN Start: 02/18/22 09:52 Freq: Status: Active Protocol: Activity Type Activity Date Activity User E-sign Co-sign Detail Recorded Client Recorded Date Recorded By Document 03/04/22 12:01 ML [id number] 03/04/22 12:05 ML Document 03/05/22 11:29 ML [id number] 03/05/22 11:33 ML Document 03/06/22 10:54 ML [id number] 03/06/22 10:57 ML 03/04/22 03/05/22 03/06/22 12:01 11:29 10:54 Wound Care Nurse 3 #1 left heel cluster -Ulcer Cleansing Soap and Water Soap and Water -Foul Odor after Cleansing No No -Negative Pressure Wound Therapy Start Continue -Setting (mmHg) 150 150 -Negative Pressure is Continuous Continuous -Primary Dressing Applied Aquacel Extra, Promogran -Other Dressing aayush -Primary Dressing Covered/Secured with Dry Gauze & Dry Gauze & Roll Gauze, Roll Gauze, Secured with Secured with Tape Tape -NPWT Application Charge NPWT </= 50 sq NPWT </= 50 sq cm ($) cm ($) -Aquacel Extra 1 -Promogran 1 Pain Scale: 0-10 Numeric Is Patient Pain Free? Yes Yes Yes Charges/Coding Wound Center CF Procedures HBO Supervision: [id number] Hyperbaric Oxygen; supervision Assessment/Plan Assessment/Plan (1) Other acute osteomyelitis, left ankle and foot: CODE(S): M86.172 - Other acute osteomyelitis, left ankle and foot (2) Osteomyelitis: CODE(S): M86.9 - Osteomyelitis, unspecified (3) Foot osteomyelitis: CODE(S): M86.9 - Osteomyelitis, unspecified QUALIFIERS: Osteomyelitis type: other acute Laterality: left Qualified Code(s): M86.172 - Other acute osteomyelitis, left ankle and foot (4) Chronic ulcer of left foot with necrosis of bone: CODE(S): L97.524 - Non-pressure chronic ulcer of other part of left foot with necrosis of bone (5) Type 2 diabetes mellitus with diabetic polyneuropathy: CODE(S): E11.42 - Type 2 diabetes mellitus with diabetic polyneuropathy QUALIFIERS: Diabetes mellitus senior care insulin use: with senior care use Qualified Code(s): E11.42 - Type 2 diabetes mellitus with diabetic polyneuropathy; Z79.4 - custodial (current) use of insulin (6) Diabetic foot ulcer: CODE(S): E11.621 - Type 2 diabetes mellitus with foot ulcer; L97.509 - Non-pressure chronic ulcer of other part of unspecified foot with unspecified severity QUALIFIERS: Diabetic foot ulcer location: heel Diabetes mellitus type: type 2 Laterality: left Non-pressure ulcer stage: with fat layer exposed Qualified Code(s): E11.621 - Type 2 diabetes mellitus with foot ulcer; L97.422 - Non-pressure chronic ulcer of left heel and midfoot with fat layer exposed PLAN: Plan The patient tolerated hyperbaric oxygen therapy well which will be continued as per his medical plan.
[2022-03-07 09:06] LABS: Bedside Glucose 186 mg/dL (74-106)
[2022-03-07 11:20] LABS: Bedside Glucose 150 mg/dL (74-106)
[2022-03-07 11:45] VITALS: BP 127/68; BP 138/72; PULSE 50; PULSE 52; RESP 17; RESP 20; TEMP 36; TEMP 36.2
--- NOTE | 2022-03-07 12:40 | HBO.PN.PCM_ITS ---
History of Present Illness Date of Service: 03/07/22 Chief Complaint: Osteomyelitis and chronic delayed healing ulcer, left foot History of Wound: The patient presented for a chronic, non-healing wound to left heel with osteomyelitis. A limb and life-threatening infection required emergent surgical intervention on 05-29-2021. 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 He denies fever, chill, nausea, vomiting, pain, odor, redness. He is keeping weight off of his foot. He undergoing hyperbaric oxygen therapy treatments. He continues on blood thinner due to his deep venous thrombosis and his leg swelling is starting to reduce. Progress of Wound: Today represents the 52nd session of hyperbaric oxygen therapy. Hyperbaric oxygen therapy was administered as per the facility's protocol. Hyperbaric oxygen therapy was administered at 2 abena for 90 minutes with no air breaks.? The patient tolerated hyperbaric oxygen therapy well, without complaints or complications.? Upon emergence from the hyperbaric chamber, the patient's vital signs remained stable.? He was discharged in good condition. Objective Data Objective Data Vital Signs: Vital Signs Temp Pulse Resp BP 96.8 F L 52 L 17 127/68 H 03/07/22 11:45 03/07/22 11:45 03/07/22 11:45 03/07/22 11:45 Body Mass Index (BMI) 33.7 Lab / Micro Data Labs: Laboratory Results - last 24 hr 03/07/22 08:44: POC Glucose 186 H 03/07/22 11:01: POC Glucose 150 H Exam Physical Exam Const alert, oriented x3 and no apparent distress General Appearance: cooperative HEENT normocephalic Eyes Eyes Narrative: Bilateral ear tubes in place. Resp normal respiratory effort and no use of accessory muscles Psych affect normal Nursing Assessment and Debridement Post-Debridement Measurements and Additional Note: Post-Debridement Measurements/Treatment WC - Nurse 3 - General Ulcer D/C NN Start: 02/18/22 09:52 Freq: Status: Active Protocol: Activity Type Activity Date Activity User E-sign Co-sign Detail Recorded Client Recorded Date Recorded By Document 03/04/22 12:01 ML [id number] 03/04/22 12:05 ML Document 03/05/22 11:29 ML [id number] 03/05/22 11:33 ML Document 03/06/22 10:54 ML [id number] 03/06/22 10:57 ML 03/04/22 03/05/22 03/06/22 12:01 11:29 10:54 Wound Care Nurse 3 #1 left heel cluster -Ulcer Cleansing Soap and Water Soap and Water -Foul Odor after Cleansing No No -Negative Pressure Wound Therapy Start Continue -Setting (mmHg) 150 150 -Negative Pressure is Continuous Continuous -Primary Dressing Applied Aquacel Extra, Promogran -Other Dressing aayush -Primary Dressing Covered/Secured with Dry Gauze & Dry Gauze & Roll Gauze, Roll Gauze, Secured with Secured with Tape Tape -NPWT Application Charge NPWT </= 50 sq NPWT </= 50 sq cm ($) cm ($) -Aquacel Extra 1 -Promogran 1 Pain Scale: 0-10 Numeric Is Patient Pain Free? Yes Yes Yes Charges/Coding Wound Center CF Procedures HBO Supervision: [id number] Hyperbaric Oxygen; supervision Assessment/Plan Assessment/Plan (1) Other acute osteomyelitis, left ankle and foot: CODE(S): M86.172 - Other acute osteomyelitis, left ankle and foot (2) Osteomyelitis: CODE(S): M86.9 - Osteomyelitis, unspecified (3) Foot osteomyelitis: CODE(S): M86.9 - Osteomyelitis, unspecified QUALIFIERS: Osteomyelitis type: other acute Laterality: left Qualified Code(s): M86.172 - Other acute osteomyelitis, left ankle and foot (4) Chronic ulcer of left foot with necrosis of bone: CODE(S): L97.524 - Non-pressure chronic ulcer of other part of left foot with necrosis of bone (5) Type 2 diabetes mellitus with diabetic polyneuropathy: CODE(S): E11.42 - Type 2 diabetes mellitus with diabetic polyneuropathy QUALIFIERS: Diabetes mellitus petroleum terminal plant operator insulin use: with longterm use Qualified Code(s): E11.42 - Type 2 diabetes mellitus with diabetic polyneuropathy; Z79.4 - nursing home (current) use of insulin (6) Diabetic foot ulcer: CODE(S): E11.621 - Type 2 diabetes mellitus with foot ulcer; L97.509 - Non-pressure chronic ulcer of other part of unspecified foot with unspecified severity QUALIFIERS: Diabetic foot ulcer location: heel Diabetes mellitus type: type 2 Laterality: left Non-pressure ulcer stage: with fat layer exposed Qualified Code(s): E11.621 - Type 2 diabetes mellitus with foot ulcer; L97.422 - Non-pressure chronic ulcer of left heel and midfoot with fat layer exposed PLAN: Plan The patient tolerated hyperbaric oxygen therapy well, which will be continued as per his medical plan. This note was generated with [employer] dictation software. It may contain incorrect words, spelling, and punctuation that were not noted in checking the note before signing.
[2022-03-08 09:05] LABS: Bedside Glucose 176 mg/dL (74-106)
[2022-03-08 09:50] VITALS: BP 131/62; BP 142/67; PULSE 52; PULSE 61; RESP 18; RESP 19; TEMP 36.1
[2022-03-08 11:15] LABS: Bedside Glucose 180 mg/dL (74-106)
--- NOTE | 2022-03-08 14:28 | PCM.HBO.PN ---
History of Present Illness Date of Service: 03/08/22 Chief Complaint: Osteomyelitis and chronic delayed healing ulcer, left foot History of Wound: The patient presented for a chronic, non-healing wound to left heel with osteomyelitis. A limb and life-threatening infection required emergent surgical intervention on 05-29-2021. 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 He denies fever, chill, nausea, vomiting, pain, odor, redness. He is keeping weight off of his foot. He undergoing hyperbaric oxygen therapy treatments. He continues on blood thinner due to his deep venous thrombosis and his leg swelling is starting to reduce. Progress of Wound: Today represents the 53rd session of hyperbaric oxygen therapy. Hyperbaric oxygen therapy was administered as per the facility's protocol. Hyperbaric oxygen therapy was administered at 2 abena for 90 minutes with no air breaks.? The patient tolerated hyperbaric oxygen therapy well, without complaints or complications.? Upon emergence from the hyperbaric chamber, the patient's vital signs remained stable.? He was discharged in good condition. Objective Data Objective Data Vital Signs: Vital Signs Temp Pulse Resp BP 96.9 F L 61 19 H 131/62 H 03/08/22 09:50 03/08/22 09:50 03/08/22 09:50 03/08/22 09:50 Body Mass Index (BMI) 33.7 Lab / Micro Data Labs: Laboratory Results - last 24 hr 03/08/22 08:45: POC Glucose 176 H 03/08/22 10:57: POC Glucose 180 H Exam Physical Exam Const alert, oriented x3 and no apparent distress Psych mental status grossly normal, thought process normal, cooperative, affect normal and speech normal Nursing Assessment and Debridement Post-Debridement Measurements and Additional Note: Post-Debridement Measurements/Treatment WC - Nurse 3 - General Ulcer D/C NN Start: 02/18/22 09:52 Freq: Status: Active Protocol: Activity Type Activity Date Activity User E-sign Co-sign Detail Recorded Client Recorded Date Recorded By Document 03/06/22 10:54 ML [id number] 03/06/22 10:57 ML Document 03/08/22 09:50 ML [id number] 03/08/22 09:57 ML 03/06/22 03/08/22 10:54 09:50 Wound Care Nurse 3 #1 left heel cluster -Ulcer Cleansing Soap and Water -Foul Odor after Cleansing No -Negative Pressure Wound Therapy Continue Continue -Setting (mmHg) 150 150 -Negative Pressure is Continuous Continuous -Primary Dressing Covered/Secured with Dry Gauze & Dry Gauze & Roll Gauze, Roll Gauze, Secured with Secured with Tape Tape -NPWT Application Charge NPWT </= 50 sq NPWT </= 50 sq cm ($) cm ($) Pain Scale: 0-10 Numeric Is Patient Pain Free? Yes Yes Assessment/Plan Assessment/Plan (1) Other acute osteomyelitis, left ankle and foot: CODE(S): M86.172 - Other acute osteomyelitis, left ankle and foot (2) Osteomyelitis: CODE(S): M86.9 - Osteomyelitis, unspecified (3) Foot osteomyelitis: CODE(S): M86.9 - Osteomyelitis, unspecified QUALIFIERS: Osteomyelitis type: other acute Laterality: left Qualified Code(s): M86.172 - Other acute osteomyelitis, left ankle and foot (4) Chronic ulcer of left foot with necrosis of bone: CODE(S): L97.524 - Non-pressure chronic ulcer of other part of left foot with necrosis of bone (5) Type 2 diabetes mellitus with diabetic polyneuropathy: CODE(S): E11.42 - Type 2 diabetes mellitus with diabetic polyneuropathy QUALIFIERS: Diabetes mellitus long term care social worker insulin use: with [facility] use Qualified Code(s): E11.42 - Type 2 diabetes mellitus with diabetic polyneuropathy; Z79.4 - [facility] (current) use of insulin (6) Diabetic foot ulcer: CODE(S): E11.621 - Type 2 diabetes mellitus with foot ulcer; L97.509 - Non-pressure chronic ulcer of other part of unspecified foot with unspecified severity QUALIFIERS: Diabetic foot ulcer location: heel Diabetes mellitus type: type 2 Laterality: left Non-pressure ulcer stage: with fat layer exposed Qualified Code(s): E11.621 - Type 2 diabetes mellitus with foot ulcer; L97.422 - Non-pressure chronic ulcer of left heel and midfoot with fat layer exposed PLAN: Plan The patient tolerated hyperbaric oxygen therapy well which will be continued as per his medical plan. This note was generated with [employer] software. It may contain incorrect words, spelling, and punctuation that were not noted in checking the note before signing.
--- NOTE | 2022-03-11 09:04 | WC ---
Patients foot was macerated and he refused to have the vac placed back on. Original dressing was put in place. Patient also had complaints of increased pain.
[2022-03-12 09:10] LABS: Bedside Glucose 191 mg/dL (74-106)
[2022-03-12 12:00] LABS: Bedside Glucose 175 mg/dL (74-106)
[2022-03-12 12:08] VITALS: BP 129/63; BP 139/60; PULSE 61; RESP 17; RESP 18; TEMP 36.2
== END 2022-03-18 23:59 | disposition home or self-care (01) ==
LOC: WC 09:15
PROVIDERS: Nurse Practitioner; Referring Provider Podiatrist Foot & Ankle Surgery; Visit Provider Podiatrist
DX: E11.621 Type 2 diabetes mellitus with foot ulcer (principal); L89.623 Pressure ulcer of left heel, stage 3; L97.524 Non-pressure chronic ulcer of other part of left foot with necrosis of bone; M86.172 Other acute osteomyelitis, left ankle and foot; E11.42 Type 2 diabetes mellitus with diabetic polyneuropathy; E11.69 Type 2 diabetes mellitus with other specified complication; Z79.4 Long term (current) use of insulin; I25.10 Atherosclerotic heart disease of native coronary artery without angina pectoris; R60.0 Localized edema; M79.89 Other specified soft tissue disorders; Z79.01 Long term (current) use of anticoagulants; Z86.718 Personal history of other venous thrombosis and embolism
CPT/HCPCS: 11042; 82962; 87070; 87075; 87077; 87186; 87205; 97605; 99183; 99213; G0277; G0463

== ENCOUNTER 2022-03-12 11:57 | Inpatient (IN) | payer MEDICARE, BC, SELFPAY ==
[2022-03-12] VITALS (7 sets, daily range): BP systolic 100–126; BP diastolic 56–71; PULSE 53–66; RESP 17–18; TEMP 36.3–37.1; O2SAT 92–96; BMI 30.4; BMI 30.7
--- NOTE | 2022-03-12 12:31 | EDS_ITS ---
HPI History of Present Illness Chief Complaint: Wound Informant: patient Narrative Narrative: Patient presents secondary to increased pain in his left heel wound. He has had an ulcerated lesion to the bottom of his left foot for quite some time. He has been following with the wound care center. He states over the past 2 weeks he had increased pain. Today he states the wound center believes it may be infected and sent him to the emergency room. He has not had fever. He denies increased drainage from the wound. [facility] Medical History Atherosclerotic heart disease of [place] coronary artery without angina pectoris Cancer Chest pain CKD (chronic kidney disease), stage III COPD (chronic obstructive pulmonary disease) Current use of insulin Diabetes mellitus Difficulty swallowing DVT (deep venous thrombosis) Essential hypertension Former tobacco use History of kidney cancer Myocardial infarct Obesity CAMACHO (obstructive sleep apnea) Osteomyelitis Osteomyelitis of foot, left, acute Other acute osteomyelitis, left ankle and foot Polycythemia secondary to hypoxia Sepsis Status post debridement of ulcer of heel Type 2 diabetes mellitus with diabetic polyneuropathy Wears hearing aid in both ears Home Medications ascorbic acid (vitamin C) 1,000 mg tablet 1,000 mg PO TID vitamin 07/11/20 [History Last Taken 05/27/21] aspirin 81 mg chewable tablet 81 mg PO DAILY@0800 heart health 07/11/20 [History Last Taken 05/27/21] atorvastatin 80 mg tablet 80 mg PO QHS cholesterol 07/11/20 [History Last Taken 05/27/21] carvedilol 12.5 mg tablet 12.5 mg PO DAILY blood pressure 08/17/20 [History Last Taken 06/01/21 08:10] cholecalciferol (vitamin D3) 125 mcg (5,000 unit) capsule 125 mcg PO DAILY Supplement 05/28/21 [History Last Taken 05/27/21] gabapentin 800 mg tablet 800 mg PO TID neuropathy 06/29/21 [History Last Taken Unknown] insulin glargine 100 unit/mL (3 mL) subcutaneous pen (Lantus Solostar U-100 Insulin) 40 units subcut QHS diabetes 06/29/21 [History Last Taken Unknown] insulin lispro 100 unit/mL subcutaneous pen See Protocol subcut TIDCM diabetes 06/29/21 [History Last Taken Unknown] zinc sulfate 50 mg zinc (220 mg) capsule 220 mg PO DAILY supplement 06/29/21 [History Last Taken Unknown] glipizide 10 mg tablet, extended release 24 hr 1 tab PO DAILY 11/05/21 [History Last Taken Unknown] losartan 50 mg tablet 50 tab PO DAILY 11/05/21 [History Last Taken Unknown] magnesium 500 mg tablet 500 mg PO DAILY 11/05/21 [History Last Taken Unknown] amlodipine 10 mg tablet 10 mg PO DAILY 11/23/21 [History Last Taken Unknown] oxycodone-acetaminophen 10 mg-325 mg tablet (Percocet) 1 tab PO TID PRN Pain 11/23/21 [History Last Taken Unknown] vitamin B complex 1 cap PO DAILY 03/12/22 [History Last Taken Unknown] Allergy/AdvReac Type Severity Reaction Status Date / Time codeine AdvReac Nausea Verified 03/12/22 11:59 promethazine [From Phenergan] AdvReac Nausea Verified 03/12/22 11:59 Family History Father CVA (cerebral vascular accident) Myocardial infarction Mother Dementia Surgical History History of appendectomy History of coronary artery stent placement (~08/13/07) History of surgery on arm Hx of hand surgery Hx of partial nephrectomy Previous back surgery S/P appendectomy Social History household members: none Smoking Status: Light Smoker (<10/day) Tobacco: How many years used: 50 how long ago did patient quit smoking: Smoked ~1/2 ppd x 50 years until quit. alcohol intake: never substance use type: does not use caffeine: Yes Type: coffee Number of servings: 1 ROS ROS ED Constitutional Constitutional ED: Denies chills or fever(s) Eyes Eyes: Denies change in vision or discharge from eye(s) ENT ENT ED: Denies discharge from eye(s), rhinorrhea or sore throat Cardiovascular Cardiovascular: Denies chest pain or palpitations Respiratory/Chest Respiratory/Chest: Denies cough or dyspnea Gastrointestinal Gastrointestinal: Denies abdominal pain, diarrhea, nausea or vomiting Genitourinary Genitourinary ED: Denies difficulty urinating or dysuria Musculoskeletal Musculoskeletal: Reports extremity pain; Denies back pain Integumentary Denies Abrasions or rash Neurologic Neurologic: Denies headache(s) or weakness Psychiatric Psychiatric: Denies anxiety or depression Allergic/Immunologic Allergic/Immunologic ED: Denies lip swelling or urticaria EXAM Physical Exam Const Vital Signs: 03/12/22 11:57 03/12/22 11:59 Temperature 97.4 F L 97.4 F L Temperature Source Temporal Temporal Pulse Rate 66 66 Respiratory Rate 18 18 Blood Pressure 120/71 120/71 Blood Pressure Mean 87 87 Pulse Ox 96 96 Oxygen Delivery Method Room Air Room Air Positive well nourished and well developed General Appearance ED: well developed HEENT Reports normocephalic and head/scalp atraumatic Eyes PERRL and EOMs intact bilaterally Neck supple Chest Wall inspection of chest normal and palpation of chest normal Resp normal respiratory effort and clear to auscultation bilaterally Cardio regular rate and regular rhythm GI normal to inspection, nondistended, normoactive bowel sounds Palpation: soft Back/Spine no CVA tenderness Extremity Extremity Narrative: Large ulcerated lesion to the plantar surface of the heel left foot. Minimal surrounding erythema. No lymphangitic streaking. Neuro oriented x3 Sensorium / Orientation: alert Psych mental status grossly normal MDM MDM MDM Narrative Medical decision making narrative: Lab work obtained along with blood cultures. Wound cultures were obtained at the wound clinic today. Left foot x-ray obtained. Patient was given morphine and Zofran for pain control. Lab Data Attestation: I reviewed the patient's lab results. Labs: Laboratory Results - last 24 hr 03/12/22 03/12/22 12:49 12:49 WBC 11.7 H RBC 4.86 Hgb 13.9 Hct 42.7 MCV 87.9 MCH 28.6 MCHC 32.6 RDW Std Deviation 55.1 H RDW Coeff of Darrell 17.2 H Plt Count 193 MPV 10.8 Immature Gran % (Auto) 0.300 Neut % (Auto) 64.1 Lymph % (Auto) 22.4 Howard % (Auto) 11.3 H Eos % (Auto) 1.5 Baso % (Auto) 0.4 Absolute Neuts (auto) 7.5 Absolute Lymphs (auto) 2.63 Nucleated RBC % 0 Sodium 136 Potassium 4.1 Chloride 104 Carbon Dioxide 28.0 Anion Gap 4 L BUN 39 H Creatinine 2.32 H Estim Creat Clear Calc 36.42 Est GFR (MDRD) Af Amer 36 L Est GFR (MDRD) Non-Af 30 L BUN/Creatinine Ratio 16.8 Glucose 151 H Calcium 9.2 Radiography Diagnostic Testing: Clinical Impression(s) from Imaging Studies Foot X-Ray 03/12/22 13:50 IMPRESSION: New onset osteomyelitis of the posterior inferior calcaneus with large adjacent ulcer. Severe soft tissue swelling of the foot. Osteopenia and degenerative changes as above. Electronically Signed: Ciaran Richard MD, [place] at 14:13 EDT , Treatment and Re-Evaluation Narrative: White blood cell count slightly elevated 11.7. Chemistry studies unremarkable other than BUN of 39 and a creatinine of 2.32. It appears his baseline creatinine is between 2.0 and 2.1. Left foot x-rays from interpretation reveal large soft tissue defect. Radiology feels there is new onset osteomyelitis. In light of this patient is ordered Zosyn and Rocephin. I will speak with hospitalist regarding admission. Patient has been seen by podiatry in the past and they will likely need to be consulted for further treatment recommendations as well. Discharge Plan Triage Chief Complaint: Wound ED Provider: Jazmine Corona Dx/Rx/DC Orders Clinical Impression: Osteomyelitis Prescriptions: No Action oxycodone-acetaminophen [Percocet] 10-325 mg tablet 1 tab PO TID PRN (Reason: Pain) amlodipine 10 mg tablet 10 mg PO DAILY atorvastatin 80 MG tablet 80 mg PO QHS ascorbic acid (vitamin C) 1,000 MG tablet 1,000 mg PO TID aspirin 81 MG tablet,chewable 81 mg PO DAILY@0800 carvedilol 12.5 MG tablet 12.5 mg PO DAILY cholecalciferol (vitamin D3) 125 mcg (5,000 unit) Capsule 125 mcg PO DAILY insulin lispro 100 unit/mL Insulin Pen See Protocol subcut TIDCM Protocol: 5. Sliding Scale Insulin High Dosing Condition: 150-209 mg/dl = 3 units Condition: 210-259 mg/dl = 6 units Condition: 260-324 mg/dl = 9 units Condition: 325-374 mg/dl = 12 units Condition: 375-409 mg/dl = 14 units Condition: 410-449 mg/dl = 16 units Condition: Greater than 449 call physician Protocol Text: - Use for Total Daily Dose of Insulin 81-120 units - Very insulin resistant or septic patients HIGH DOSING ALGORITHM gabapentin 800 mg tablet 800 mg PO TID zinc sulfate 50 mg zinc (220 mg) capsule 220 mg PO DAILY insulin glargine [Lantus Solostar U-100 Insulin] 100 unit/mL (3 mL) insulin pen 40 units subcut QHS losartan 50 mg tablet 50 tab PO DAILY Label Comments: Take 1 tablet by mouth once daily. glipizide 10 mg tablet extended release 24hr 1 tab PO DAILY Label Comments: TAKE 1 TABLET TWICE DAILY magnesium 500 mg Tablet 500 mg PO DAILY vitamin B complex Capsule 1 cap PO DAILY Primary Care Provider: Emmett Rosario Referrals: [facility] Doctor,Out of [Non-Staff] - Disposition Disposition: Acute Care Hospital [facility]
[2022-03-12] MEDS: Morphine 4 MG/ML Syringe IV ×2 (12:54→16:22)
[2022-03-12] MEDS: Ondansetron 4 MG/2 ML Vial IV (12:55)
[2022-03-12 13:22] LABS: Absolute Lymphocyte Count 2.63 X10^3/uL (0.83-4.51); Absolute Neutrophil Count 7.5 X10^3/uL (2.0-7.7); Basophil# 0.05 X10^3/uL; Basophil% 0.4 % (0-1); Eosinophil# 0.17 X10^3/uL; Eosinophils% 1.5 % (0-5); Hematocrit 42.7 % (40-54); Hemoglobin 13.9 g/dL (13.0-16.5); Lymphocyte # 2.63 X10^3/ul (0.83-4.51); Lymphocyte % 22.4 % (19-41); Mean Corp Hgb Conc 32.6 g/dL (32-36); Mean Corpuscular Hgb 28.6 pg (27.0-32.0); Mean Corpuscular Volume 87.9 fL (80-94); Mean Platelet Vol. 10.8 fl (6.2-12.0); Monocyte# 1.32 X10^3/uL; Monocyte% 11.3 % (0-10); NRBC Flagged by Analyzer 0 % (0-5); Neutrophil # 7.51 X10^3/uL (2.7-7.7); Neutrophil % 64.1 % (47-70); Platelet Count 193 K/mm3 (150-450); RBC Distribution Width CV 17.2 % (11.6-14.6); RBC Distribution Width SD 55.1 fl (35.1-43.9); Red Blood Count 4.86 M/mm3 (4.6-6.2); White Blood Count 11.7 K/mm3 (4.4-11.0)
[2022-03-12 13:37] LABS: Anion Gap 4 (5-15); BUN 39 mg/dL (7-18); BUN/Creat Ratio 16.8 RATIO (10-20); Calcium,Total 9.2 mg/dL (8.5-10.1); Chloride 104 mmol/L (98-107); Creatinine, Serum 2.32 mg/dL (0.70-1.30); EST Glomerular Filtration Rate 30 mL/min (>60); Est Glom Filt Rate - Afr Amer 36 mL/min (>60); Estimated Creatinine Clearance 36.42 ml/min; Glucose 151 mg/dL (74-106); Potassium 4.1 mmol/L (3.5-5.1); Sodium Level 136 mmol/L (136-145)
--- NOTE | 2022-03-12 13:50 | RAD_ITS ---
STUDY: X-RAY - LEFT FOOT CLINICAL: Male, 66 years old. infection TECHNIQUE: 3 view(s) of the foot. COMPARISON: 10/03/2021 11:12 AM FINDINGS: Wound at the caudal aspect of the calcaneus is much larger than on the prior study. There is a loss of cortical bone in the posterior inferior calcaneus with inhomogeneous adjacent lytic process consistent with osteomyelitis. There is moderate calcific tendinopathy at the Achilles insertion. There is severe soft tissue swelling of the foot. There is diffuse osteopenia of the foot with mild underlying osteoarthritis throughout the tarsal bones MTP joints and interphalangeal joints. RAD/Foot min 3 Views IMPRESSION: New onset osteomyelitis of the posterior inferior calcaneus with large adjacent ulcer. Severe soft tissue swelling of the foot. Osteopenia and degenerative changes as above. Electronically Signed: Ciaran Richard MD, [place] at 14:13 EDT ,
--- NOTE | 2022-03-12 15:08 | PCM.HBO.PN ---
History of Present Illness Date of Service: 03/12/22 Chief Complaint: Osteomyelitis and chronic delayed healing ulcer, left foot History of Wound: The patient presented for a chronic, non-healing wound to left heel with osteomyelitis. A limb and life-threatening infection required emergent surgical intervention on 05-29-2021. 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 He denies fever, chill, nausea, vomiting, pain, odor, redness. He is keeping weight off of his foot. He undergoing hyperbaric oxygen therapy treatments. He continues on blood thinner due to his deep venous thrombosis and his leg swelling is starting to reduce. Progress of Wound: Today represents the 54th session of hyperbaric oxygen therapy. Hyperbaric oxygen therapy was administered as per the facility's protocol. Hyperbaric oxygen therapy was administered at 2 abena for 90 minutes with no air breaks.? The patient tolerated hyperbaric oxygen therapy well, without complaints or complications.? Upon emergence from the hyperbaric chamber, the patient's vital signs remained stable.? Pre- and post- treatment blood glucose measurements are documented elsewhere. Objective Data Objective Data Vital Signs: Vital Signs Temp Pulse Resp BP Pulse Ox O2 Del Method 97.4 F L 66 18 120/71 96 Room Air 03/12/22 11:59 03/12/22 11:59 03/12/22 11:59 03/12/22 11:59 03/12/22 11:59 03/12/22 11:59 Oxygen Delivery Method Room Air Weight: 244 lb Body Mass Index (BMI) 30.4 Lab / Micro Data Result Diagrams: 03/12/22 12:49 03/12/22 12:49 Labs: Laboratory Results - last 24 hr 03/12/22 12:49: WBC 11.7 H, RBC 4.86, Hgb 13.9, Hct 42.7, MCV 87.9, MCH 28.6, MCHC 32.6, RDW Std Deviation 55.1 H, RDW Coeff of Darrell 17.2 H, Plt Count 193, MPV 10.8, Immature Gran % (Auto) 0.300, Neut % (Auto) 64.1, Lymph % (Auto) 22.4, Ware % (Auto) 11.3 H, Eos % (Auto) 1.5, Baso % (Auto) 0.4, Absolute Neuts (auto) 7.5, Absolute Lymphs (auto) 2.63, Nucleated RBC % 0 03/12/22 12:49: Sodium 136, Potassium 4.1, Chloride 104, Carbon Dioxide 28.0, Anion Gap 4 L, BUN 39 H, Creatinine 2.32 H, Estim Creat Clear Calc 36.42, Est GFR (MDRD) Af Amer 36 L, Est GFR (MDRD) Non-Af 30 L, BUN/Creatinine Ratio 16.8, Glucose 151 H, Calcium 9.2 Radiography Diagnostic Testing: Radiology Impression Foot X-Ray 03/12/22 13:50 IMPRESSION: New onset osteomyelitis of the posterior inferior calcaneus with large adjacent ulcer. Severe soft tissue swelling of the foot. Osteopenia and degenerative changes as above. Electronically Signed: Ciaran Richard MD, [place] at 14:13 EDT Reading Location ID and State: [facility] / [place] Tel , Service support , Exam Physical Exam Const alert and oriented x3 General Appearance: cooperative and well developed HEENT normocephalic Head and Scalp: atraumatic Eyes PERRL and EOMs intact bilaterally Resp Effort and Inspection: able to speak in complete sentences Psych mental status grossly normal, thought process normal, cooperative, affect normal and speech normal Appearance: grossly normal Assessment and Debridement #1 left heel cluster: Debridement Free Text: Following the patient's hyperbaric oxygen treatment, it was noted that the patient was complaining of a great deal of pain involving his left foot. His left foot was examined, and seen to be erythematous and extremely swollen. Both passive and active movement of the left foot and ankle were productive of severe pain. It was noted that the patient's temperature was within normal range. However, the appearance, symptoms, and manifestations relative to the patient's left foot were highly suspicious for infection, with possible abscess or a deep-seated infection. Therefore, swab cultures were obtained for both aerobic and anaerobic bacterial growth. Results of his cultures will be awaited. However, due to concerns regarding likely infection, the patient was sent to the emergency department for further diagnostic evaluation and management. Assessment/Plan Assessment/Plan (1) Other acute osteomyelitis, left ankle and foot: CODE(S): M86.172 - Other acute osteomyelitis, left ankle and foot (2) Osteomyelitis: CODE(S): M86.9 - Osteomyelitis, unspecified (3) Foot osteomyelitis: CODE(S): M86.9 - Osteomyelitis, unspecified QUALIFIERS: Osteomyelitis type: other acute Laterality: left Qualified Code(s): M86.172 - Other acute osteomyelitis, left ankle and foot (4) Chronic ulcer of left foot with necrosis of bone: CODE(S): L97.524 - Non-pressure chronic ulcer of other part of left foot with necrosis of bone (5) Type 2 diabetes mellitus with diabetic polyneuropathy: CODE(S): E11.42 - Type 2 diabetes mellitus with diabetic polyneuropathy QUALIFIERS: Diabetes mellitus residential insulin use: with 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 Qualified Code(s): E11.42 - Type 2 diabetes mellitus with diabetic polyneuropathy; Z79.4 - intermediate (current) use of insulin (6) Diabetic foot ulcer: CODE(S): E11.621 - Type 2 diabetes mellitus with foot ulcer; L97.509 - Non-pressure chronic ulcer of other part of unspecified foot with unspecified severity QUALIFIERS: Diabetic foot ulcer location: heel Diabetes mellitus type: type 2 Laterality: left Non-pressure ulcer stage: with fat layer exposed Qualified Code(s): E11.621 - Type 2 diabetes mellitus with foot ulcer; L97.422 - Non-pressure chronic ulcer of left heel and midfoot with fat layer exposed PLAN: Plan Following the patient's hyperbaric oxygen treatment, it was noted that the patient was complaining of a great deal of pain involving his left foot. His left foot was examined, and seen to be erythematous and extremely swollen. Both passive and active movement of the left foot and ankle were productive of severe pain. It was noted that the patient's temperature was within normal range. However, the appearance, symptoms, and manifestations relative to the patient's left foot were highly suspicious for infection, with possible abscess or a deep-seated infection. Therefore, swab cultures were obtained for both aerobic and anaerobic bacterial growth. Results of his cultures will be awaited. However, due to concerns regarding likely infection, the patient was sent to the Emergency Department for further diagnostic evaluation and management. This note was generated with [employer] software. It may contain incorrect words, spelling, and punctuation that were not noted in checking the note before signing.
--- NOTE | 2022-03-12 18:44 | PCM.HP.STD ---
HPI - General General Date of Admission: 03/12/22 HPI Narrative JUAREZ GOODRICH, is a 66 M who presents to the hospital secondary to infection at his left heel. This is due to diabetic foot ulcer in the setting of bone spurs that were treated several years ago. He is undergoing hyperbaric treatment at the wound care center, however today he started having significant left foot pain and then noticed some increased erythema and swelling so after obtaining wound cultures they sent him into the hospital for evaluation and treatment. He has been noticing the increased pain over the last weeks slowly getting worse. Previous wound culture showed a Klebsiella and Pseudomonas both sensitive to. In the ED his white blood cell count was 11.7 and his creatinine is at baseline at 2.3 his other medical history he says, is stable. He did say that he he refuses to follow diabetic diet here because he refuses to follow diabetic diet at home. [facility] Medical History Atherosclerotic heart disease of [place] coronary artery without angina pectoris Cancer Chest pain CKD (chronic kidney disease), stage III COPD (chronic obstructive pulmonary disease) Current use of insulin Diabetes mellitus Difficulty swallowing DVT (deep venous thrombosis) Essential hypertension Former tobacco use History of kidney cancer Myocardial infarct Obesity CAMACHO (obstructive sleep apnea) Osteomyelitis Osteomyelitis of foot, left, acute Other acute osteomyelitis, left ankle and foot Polycythemia secondary to hypoxia Sepsis Status post debridement of ulcer of heel Type 2 diabetes mellitus with diabetic polyneuropathy Wears hearing aid in both ears Home Medications ascorbic acid (vitamin C) 1,000 mg tablet 1,000 mg PO TID vitamin 07/11/20 [History Last Taken 05/27/21] aspirin 81 mg chewable tablet 81 mg PO DAILY@0800 heart health 07/11/20 [History Last Taken 05/27/21] atorvastatin 80 mg tablet 80 mg PO QHS cholesterol 07/11/20 [History Last Taken 05/27/21] carvedilol 12.5 mg tablet 12.5 mg PO DAILY blood pressure 08/17/20 [History Last Taken 06/01/21 08:10] cholecalciferol (vitamin D3) 125 mcg (5,000 unit) capsule 125 mcg PO DAILY Supplement 05/28/21 [History Last Taken 05/27/21] gabapentin 800 mg tablet 800 mg PO TID neuropathy 06/29/21 [History Last Taken Unknown] insulin glargine 100 unit/mL (3 mL) subcutaneous pen (Lantus Solostar U-100 Insulin) 40 units subcut QHS diabetes 06/29/21 [History Last Taken Unknown] insulin lispro 100 unit/mL subcutaneous pen See Protocol subcut TIDCM diabetes 06/29/21 [History Last Taken Unknown] zinc sulfate 50 mg zinc (220 mg) capsule 220 mg PO DAILY supplement 06/29/21 [History Last Taken Unknown] glipizide 10 mg tablet, extended release 24 hr 1 tab PO DAILY 11/05/21 [History Last Taken Unknown] losartan 50 mg tablet 50 tab PO DAILY 11/05/21 [History Last Taken Unknown] magnesium 500 mg tablet 500 mg PO DAILY 11/05/21 [History Last Taken Unknown] amlodipine 10 mg tablet 10 mg PO DAILY 11/23/21 [History Last Taken Unknown] oxycodone-acetaminophen 10 mg-325 mg tablet (Percocet) 1 tab PO TID PRN Pain 11/23/21 [History Last Taken Unknown] vitamin B complex 1 cap PO DAILY 03/12/22 [History Last Taken Unknown] Allergy/AdvReac Type Severity Reaction Status Date / Time codeine AdvReac Nausea Verified 03/12/22 11:59 promethazine [From Phenergan] AdvReac Nausea Verified 03/12/22 11:59 Family History Father CVA (cerebral vascular accident) Myocardial infarction Mother Dementia Surgical History History of appendectomy History of coronary artery stent placement (~08/13/07) History of surgery on arm Hx of hand surgery Hx of partial nephrectomy Previous back surgery S/P appendectomy Social History household members: none Smoking Status: Light Smoker (<10/day) Tobacco: How many years used: 50 how long ago did patient quit smoking: Smoked ~1/2 ppd x 50 years until quit. alcohol intake: never substance use type: does not use caffeine: Yes Type: coffee Number of servings: 1 ROS Constitutional Constitutional: Denies chills, fatigue, fever(s) or malaise Eyes Eyes: Denies blurry vision ENT HEENT: Denies headache(s) or nasal discharge Cardiovascular Cardiovascular: Denies chest pain, dyspnea on exertion or syncope Respiratory/Chest Respiratory/Chest: Denies cough, shortness of breath at rest or shortness of breath with exertion Gastrointestinal Gastrointestinal: Denies constipation, diarrhea, nausea or vomiting Genitourinary Genitourinary: Denies dysuria Integumentary Integumentary: Reports wounds Neurologic Neurologic: Denies focal weakness, numbness or tremor(s) Psychiatric Psychiatric: Denies anxiety or depression Vital Signs Vital Signs Vital Signs: 03/12/22 11:57 03/12/22 11:59 03/12/22 15:42 Temperature 97.4 F L 97.4 F L 98.8 F Temperature Source Temporal Temporal Oral Pulse Rate 66 66 53 L Respiratory Rate 18 18 17 Blood Pressure 120/71 120/71 100/56 L Blood Pressure Mean 87 87 70 Blood Pressure Source Blood Pressure Position Blood Pressure Location Pulse Ox 96 96 92 Oxygen Delivery Method Room Air Room Air Room Air 03/12/22 15:44 03/12/22 17:21 03/12/22 18:00 Temperature 98.8 F 98.4 F 97.4 F L Temperature Source Oral Oral Temporal Pulse Rate 53 L 64 58 L Respiratory Rate 17 17 18 Blood Pressure 100/56 L 119/57 L 121/65 H Blood Pressure Mean 70 77 83 Blood Pressure Source Monitor Blood Pressure Position Sitting Blood Pressure Location Left Arm Pulse Ox 92 92 93 Oxygen Delivery Method Room Air Room Air Room Air Weight Weight: 246 lb 0.574 oz Body Mass Index (BMI) 30.7 Physical Exam Narrative General: Alert, Oriented x3, Cooperative, No apparent distress HEENT: Atraumatic, PERRLA, EOMI, Normocephalic Oral: Moist Mucosa Neck: Supple, No JVD Lungs: Diminished, Normal air movement, No rhonchi, No wheeze, No rales Cardiovascular: Regular rate, Regular Rhythm, Normal S1, Normal S2, No murmurs Abdomen: Soft, Non Tender, Non-Distended, No Hepato-splenomegaly Extremities: Edema, Capillary Refill Less than 3 Seconds Skin: Left lower extremity ulcer on his heel with serous drainage and surrounding erythema and swelling Musculoskeletal: No Tenderness to Palpation of Joints or Extremities Neurological: Cranial nerves II-XII grossly intact, Motor Exam 5/5 strength throughout, Sensory exam intact to light touch and pain Psych/Mental Status: Normal Affect, Appropriate Results Lab / Micro Data Result Diagrams: 03/12/22 12:49 03/12/22 12:49 Labs: Laboratory Results - last 24 hr 03/12/22 12:49: WBC 11.7 H, RBC 4.86, Hgb 13.9, Hct 42.7, MCV 87.9, MCH 28.6, MCHC 32.6, RDW Std Deviation 55.1 H, RDW Coeff of Darrell 17.2 H, Plt Count 193, MPV 10.8, Immature Gran % (Auto) 0.300, Neut % (Auto) 64.1, Lymph % (Auto) 22.4, Wilcox % (Auto) 11.3 H, Eos % (Auto) 1.5, Baso % (Auto) 0.4, Absolute Neuts (auto) 7.5, Absolute Lymphs (auto) 2.63, Nucleated RBC % 0 03/12/22 12:49: Sodium 136, Potassium 4.1, Chloride 104, Carbon Dioxide 28.0, Anion Gap 4 L, BUN 39 H, Creatinine 2.32 H, Estim Creat Clear Calc 36.42, Est GFR (MDRD) Af Amer 36 L, Est GFR (MDRD) Non-Af 30 L, BUN/Creatinine Ratio 16.8, Glucose 151 H, Calcium 9.2 Radiology Impression Foot X-Ray 03/12/22 13:50 IMPRESSION: New onset osteomyelitis of the posterior inferior calcaneus with large adjacent ulcer. Severe soft tissue swelling of the foot. Osteopenia and degenerative changes as above. Electronically Signed: Ciaran Richard MD, TIAGO at 14:13 EDT , Assessment & Plan Assessment/Plan (1) Osteomyelitis of foot, left, acute: PLAN: Plan 1. Osteomyelitis of his left heel secondary to a diabetic foot ulcer/CKD 3B ? This has been addressed as an outpatient with being monitored at the wound care center with hyperbaric oxygen and infectious disease however it appears more infected today ? White count is slightly elevated to 11.7 ? Cultures are pending both of the wound and blood ? Given previous culture data we will place him on Zosyn as well as Vanco just to broaden for right now ? Consult podiatry and an infectious disease ? Continue with sliding scale insulin as well as Accu-Cheks AC at bedtime we will make adjustments to his insulin as necessary ? He stated that he refuses to eat a diabetic diet therefore we will put him on a regular diet with a maximum limit of 1800 shagufta ? Creatinine is at baseline we will continue to monitor ? Continue with his home Percocet 2. HTN/HLD/CAD status post stent ? Blood pressures are stable, can resume his home blood pressure medications ? Continue with aspirin, Lipitor DVT: Heparin Charges/Coding Visit Charges Inpatient E&M: 95252 Init Hosp L2
--- NOTE | 2022-03-12 19:03 | PCM.RX.CS ---
Consult Pharmacy has been consulted to manage selected antiobiotic: Vancomycin Type of Consult: New start Suspected Infection: Skin/Soft tissue Prior Doses of Antibiotics Received/Current Regimen: received 1750mg IV x1 in E.R. starting at 16:23 today Labs: Sodium 136 mmol/L (136-145) 03/12/22 12:49 Potassium 4.1 mmol/L (3.5-5.1) 03/12/22 12:49 Chloride 104 mmol/L (98-107) 03/12/22 12:49 Carbon Dioxide 28.0 mmol/L (21.0-32.0) 03/12/22 12:49 Anion Gap 4 (5-15) L 03/12/22 12:49 BUN 39 mg/dL (7-18) H 03/12/22 12:49 Creatinine 2.32 mg/dL (0.70-1.30) H 03/12/22 12:49 Est GFR (MDRD) Af Amer 36 mL/min (>60) L 03/12/22 12:49 Est GFR (MDRD) Non-Af 30 mL/min (>60) L 03/12/22 12:49 BUN/Creatinine Ratio 16.8 RATIO (10-20) 03/12/22 12:49 Glucose 151 mg/dL (74-106) H 03/12/22 12:49 Weight used for dosin.6 kg Estimated Creatinine Clearance: 41 ml/min Goal Trough: 15-20 mcg/mL Pharmacy Plan for Drug Dosing: Starting 12 hours after the E.R. dose, will continue with vanc 1000mg IV q12h. Will check a trough before the 4th total dose. The patient's CrCl of 41ml/min was calculated using an adjusted body weight. Pharmacy Service will continue to monitor and adjust dosing as required. Follow-Up Labs: Trough Vancomycin Labs to be done on [date and time ordered]: 03/14/22 03:30
[2022-03-12] MEDS: oxyCODONE 5 MG Tablet 10 MG PO (20:06)
[2022-03-12] MEDS: Heparin Injection (Vial) 5,000 UNIT/ML VIAL 5000 UNIT SC (20:07)
[2022-03-12] MEDS: Atorvastatin Calcium 80 MG Tablet PO (20:09)
--- NOTE | 2022-03-12 20:46 | NURSING ---
talk to pt about not wanting accucheck. Pt very firm and said i will not do it
--- NOTE | 2022-03-12 21:21 | PCM.HOSP.N ---
Hospitalist Note Patient was refusing glucose checks in his fingers because it hurts too much. Patient has a glucose monitor in his arm but did not have the reader with him and is at home and he has no way to get that at home. Went to talk to the patient and patient was told me that he had nothing further to sayand for me to get the fuck out. Patient then feigned sleeping while there. I did have the nurse come in and patient was agreeable to the following: Checking his glucose through blood draw through his IV. We advised against that as it could be a risk for potential infection. He understood and is agreeable. We will do that nightly. And he is agreeable to having morning labs as well. We will discontinue glucose checks as he will not permit it unless we can get his monitor but that seems unlikely.
--- NOTE | 2022-03-12 21:33 | NURSING ---
Pt said the only way he would let us check his sugar was from drawing off his iv. Informed pt we dont do that on his floor. we risk infection and iv going bad. Pt said this is the only way he will let us check it. I did a waste and checked his sugar. It was 184. Pt then said no to pao. He said no my sugar will drop to much. Pt was talking bad about dr Dodd and i informed pt that i will not talk bad about him. I informed him he is hurting himself not us when he refuses
[2022-03-12] MEDS: Carvedilol 12.5 MG Tablet PO (21:36)
[2022-03-12 21:55] LABS: Bedside Glucose 184 mg/dL (74-106)
[2022-03-13 03:16] VITALS: BP 128/60; PULSE 73; RESP 17; TEMP 36.7; O2SAT 95
[2022-03-13] MEDS: 0.9% Saline Lock 10 ML Syringe IV (03:16)
[2022-03-13] MEDS: Vancomycin IV 1,000 MG/200 ML BAG 200 MG IV ×2 (03:16→16:25)
[2022-03-13] MEDS: oxyCODONE 5 MG Tablet 10 MG PO ×2 (03:23→11:43)
[2022-03-13 06:41] LABS: Absolute Lymphocyte Count 1.56 X10^3/uL (0.83-4.51); Absolute Neutrophil Count 7.3 X10^3/uL (2.0-7.7); Basophil# 0.05 X10^3/uL; Basophil% 0.5 % (0-1); Eosinophil# 0.22 X10^3/uL; Eosinophils% 2.2 % (0-5); Hematocrit 41.1 % (40-54); Hemoglobin 12.8 g/dL (13.0-16.5); Lymphocyte # 1.56 X10^3/ul (0.83-4.51); Lymphocyte % 15.5 % (19-41); Mean Corp Hgb Conc 31.1 g/dL (32-36); Mean Corpuscular Hgb 27.5 pg (27.0-32.0); Mean Corpuscular Volume 88.4 fL (80-94); Mean Platelet Vol. 11.2 fl (6.2-12.0); Monocyte# 0.92 X10^3/uL; Monocyte% 9.1 % (0-10); NRBC Flagged by Analyzer 0 % (0-5); Neutrophil % 72.4 % (47-70); Platelet Count 183 K/mm3 (150-450); RBC Distribution Width SD 54.9 fl (35.1-43.9); Red Blood Count 4.65 M/mm3 (4.6-6.2); White Blood Count 10.1 K/mm3 (4.4-11.0)
[2022-03-13 07:11] LABS: Anion Gap 5 (5-15); BUN 42 mg/dL (7-18); BUN/Creat Ratio 16.5 RATIO (10-20); Calcium,Total 8.5 mg/dL (8.5-10.1); Chloride 102 mmol/L (98-107); Creatinine, Serum 2.54 mg/dL (0.70-1.30); EST Glomerular Filtration Rate 27 mL/min (>60); Est Glom Filt Rate - Afr Amer 33 mL/min (>60); Estimated Creatinine Clearance 33.27 ml/min; Glucose 211 mg/dL (74-106); Potassium 4.6 mmol/L (3.5-5.1); Sodium Level 133 mmol/L (136-145)
--- NOTE | 2022-03-13 07:26 | NURSING ---
blood sugar 211 from chemistry Pt refused humalog coverage this am
[2022-03-13 09:16] VITALS: BP 109/56; PULSE 62; RESP 16; TEMP 36.4; O2SAT 97
[2022-03-13] MEDS: amLODIPine 10 MG Tablet PO (11:34)
[2022-03-13] MEDS: Losartan Potassium 50 MG Tablet PO (11:34)
[2022-03-13] MEDS: Carvedilol 12.5 MG Tablet PO ×2 (11:34→21:19)
[2022-03-13] MEDS: Heparin Injection (Vial) 5,000 UNIT/ML VIAL 5000 UNIT SC ×2 (11:42→21:19)
--- NOTE | 2022-03-13 12:05 | CASEMGMT ---
RN DWIGHT FUR [employer]Y CLEANER HAND CM to room to meet with patient for initial transition planning/care coordination assessment. LU QUINTANILLA introduced self and role at [facility]. Pt voices understanding and consents to assessment at this time. Pt sitting up at edge of bed at this time. Pt is A/O at this time and answers all questions appropriately. Care providers, pharmacy, and demographics verified/updated at this time. PCP: Dr Rosario Specialists: [facility] for hyperbaric chamber tx. Pt also sees Dr Mykel Chavez-endocrinology, Dr Patel-supervisor firearms in [place], [place], Dr Quiroz--pulmonology (states [facility] Preferred Pharmacy: [facility] Insurance: Anne LUTHER Prescription Benefit: Yes Living Will/HPOA: Has LW and HPOA, who is his daughter, Shyann LNOK: Daughter, Shyann/CYNTHIA Living Arrangements: Lives alone in 2-story home w/2 steps to enter w/railing. FFSU. Independent w/ADL's and IADL's. Daughters come by to help w/home tasks at times. Transportation: Pt states drives self and states no transportation concerns at this time. DME: States has the following DME: built-in shower seat, grab bars, cane, crutches, walker, W/C, knee scooter, BIPAP, pulse ox, and functioning glucometer w/supplies. Pt states he has all diabetic supplies needed. Pt states no need for further DME at this time. HHC/SNF: [facility] and [facility]. Pt states [facility] just discharged him recently when he started getting hyperbaric tx's @ the . He states the plan is for [facility] to start again for wound vac care/dsg changes once he has completed hyperbaric tx's. Pt wishes to return home and states having no concerns w/going home @ discharge. Pt states he smokes once in a great while and denies drinking ETOH. Pt is aware MRI ordered and course of atb tx (PO vs IV) will be dependent upon MRI results and ID consult. Pt informed that LU QUINTANILLA will discuss discharge plan in further detail if IV atb's are recommended @ d/c. CM to follow for further discharge planning/needs. Pt voices no further concerns/needs at this time. Advised pt to ask for CM if any further questions/concerns/needs arise. Voices understanding. PLAN: Home. Follow for possible need of IV atb's @ d/c. Fausto ARORA RN CM
--- NOTE | 2022-03-13 12:20 | VDLE_ITS ---
Reason For Study: LEG SWELLING RIGHT LEFT CFV is compressible, spontaneous, phasic, GSV is normal. competent and demonstrates normal CFV is compressible, spontaneous, phasic, augmentation. competent, and demonstrates normal Procedure augmentation. This is a venous duplex using B-mode, color FV is compressible, spontaneous, phasic, flow and spectral Doppler. competent and demonstrates normal Exam performed portable in patient room. augmentation. The exam was diagnostic. POP V is compressible, spontaneous, phasic, A preliminary report was called and/or faxed competent and demonstrates normal to PCU supervisor carbon electrodes Jody. augmentation. T/P Trunk is compressible. PTV is compressible. LT PerV is compressible. VL/Venous Duplex US, Unilateral Interpretation Summary There is no evidence of left lower extremity deep vein thrombosis. Left great s aphenous vein appears patent and compressible segmentally. Normal flow patterns right common femoral vein Ordering Physician: August Espinal Referring Physician: Emmett Rosario Performed By: Ignacio Grady RVT
--- NOTE | 2022-03-13 12:21 | CON.PCM_ITS ---
Assessment & Plan Assessment/Plan (1) Non-pressure chronic ulcer of other part of left foot with fat layer exposed: PLAN: Patient examined evaluated, all findings cussed with patient detail Radiographs were taken and reviewed. Demonstrate new erosive changes to the plantar calcaneus. Patient has chronic plantar heel wound treated in the wound center. There is mild leukocytosis noted. Patient is vitally stable. Ordered MRI for evaluation of extent of infection to the left foot. I recommend infectious disease consult as patient will likely require long-term IV antibiotics. I discussed in detail with the patient multiple treatment options. I recommended to the patient that due to presence of new onset wound infection with bone infection that we proceed with a wound debridement and bone biopsy/culture. Patient agrees at this time. Discussed with patient in detail today elective below the knee amputation is an option for him. The issue is with calcaneal osteomyelitis significant bone resections lead yields a nonfunctional limb which is unable to be ambulated on. for this reason definitive infection clearance will likely need to be provided by long-term IV antibiotics or below-knee amputation. Patient understands this. I discussed with patient in detail to consider recovery in a longterm facility as this wound will not improve if he ambulates on it which she has been doing at home. Patient requires strict nonweightbearing. Again I discussed this in great detail with the patient that in order for the wound heal he is to be strict nonweightbearing or his wound will continue to worsen and lead to a below the knee amputation or life-threatening infection. Today wound was dressed with Dakin's DSD compression. I ordered duplex due to left lower extremity swelling. We will plan for OR on 03/15/2022. Will continue to follow closely, patient will also likely require a wound VAC postoperatively. I recommend SNF due to strict nonweightbearing, long-term IV antibiotics and wound VAC. (2) Osteomyelitis of foot, left, acute: HPI Consult Data Date of Consult: 03/13/22 HPI Narrative HPI Narrative: JUAREZ GOODRICH, is a 66 M who presents with a chronic left heel wound in setting of diabetic neuropathy. Patient notes he has had this wound for 20 months after he had a open plantar fasciotomy by an unknown sap bw bi developer in [place]. Patient also has a history of a severe gas infection to the same foot which was treated surgically by Dr. Chapman. Patient has been seen weekly in the wound care center and treated with a wound VAC and hyperbaric oxygen treatments. On 03/12/2022 they noticed that his wound had worsened there was increased drainage swelling and redness to the site. Patient was sent to the hospital he presents today. At current he notes some pain limited to his heel. Patient denies any constitutional symptoms. Patient is supposed to be completely nonweightbearing on the left foot. Patient notes he has been ambulating in a cam walking boot despite his nonweightbearing restriction. No other complaints at this time. [facility] Medical History Atherosclerotic heart disease of [place] coronary artery without angina pectoris Cancer Chest pain CKD (chronic kidney disease), stage III COPD (chronic obstructive pulmonary disease) Current use of insulin Diabetes mellitus Difficulty swallowing DVT (deep venous thrombosis) Essential hypertension Former tobacco use History of kidney cancer Myocardial infarct Obesity CAMACHO (obstructive sleep apnea) Osteomyelitis Osteomyelitis of foot, left, acute Other acute osteomyelitis, left ankle and foot Polycythemia secondary to hypoxia Sepsis Status post debridement of ulcer of heel Type 2 diabetes mellitus with diabetic polyneuropathy Wears hearing aid in both ears Home Medications ascorbic acid (vitamin C) 1,000 mg tablet 1,000 mg PO TID vitamin 07/11/20 [History Last Taken 05/27/21] aspirin 81 mg chewable tablet 81 mg PO DAILY@0800 heart health 07/11/20 [History Last Taken 05/27/21] atorvastatin 80 mg tablet 80 mg PO QHS cholesterol 07/11/20 [History Last Taken 05/27/21] carvedilol 12.5 mg tablet 12.5 mg PO BID blood pressure 08/17/20 [History Last Taken 06/01/21 08:10] cholecalciferol (vitamin D3) 125 mcg (5,000 unit) capsule 125 mcg PO DAILY Supplement 05/28/21 [History Last Taken 05/27/21] gabapentin 800 mg tablet 800 mg PO TID neuropathy 06/29/21 [History Last Taken Unknown] insulin glargine 100 unit/mL (3 mL) subcutaneous pen (Lantus Solostar U-100 Insulin) 40 units subcut QHS diabetes 06/29/21 [History Last Taken Unknown] insulin lispro 100 unit/mL subcutaneous pen See Protocol subcut TIDCM diabetes 06/29/21 [History Last Taken Unknown] zinc sulfate 50 mg zinc (220 mg) capsule 220 mg PO DAILY supplement 06/29/21 [History Last Taken Unknown] glipizide 10 mg tablet, extended release 24 hr 1 tab PO DAILY 11/05/21 [History Last Taken Unknown] losartan 50 mg tablet 50 tab PO DAILY 11/05/21 [History Last Taken Unknown] magnesium 500 mg tablet 500 mg PO DAILY 11/05/21 [History Last Taken Unknown] amlodipine 10 mg tablet 10 mg PO DAILY 11/23/21 [History Last Taken Unknown] oxycodone-acetaminophen 10 mg-325 mg tablet (Percocet) 1 tab PO TID PRN Pain [History Last Taken Unknown] vitamin B complex 1 cap PO DAILY 03/12/22 [History Last Taken Unknown] Allergy/AdvReac Type Severity Reaction Status Date / Time codeine AdvReac Nausea Verified 03/12/22 11:59 promethazine [From Phenergan] AdvReac Nausea Verified 03/12/22 11:59 Family History Father CVA (cerebral vascular accident) Myocardial infarction Mother Dementia Surgical History History of appendectomy History of coronary artery stent placement (~08/13/07) History of surgery on arm Hx of hand surgery Hx of partial nephrectomy Previous back surgery S/P appendectomy Social History household members: none Smoking Status: Light Smoker (<10/day) Tobacco: How many years used: 50 how long ago did patient quit smoking: Smoked ~1/2 ppd x 50 years until quit. alcohol intake: never substance use type: does not use caffeine: Yes Type: coffee Number of servings: 1 ROS Constitutional Constitutional: Denies daytime sleepiness, difficulty sleeping or night sweats Eyes Eyes: Denies blind spots, decreased night vision or excessive blinking ENT HEENT: Denies dental pain, halitosis or mucositis Cardiovascular Cardiovascular: Denies abdominal pain, chest pain with activity or dyspnea on exertion Respiratory/Chest Respiratory/Chest: Denies chest tightness, excessive phlegm production or pain on inspiration Gastrointestinal Gastrointestinal: Denies change in bowel habits, dyspepsia or hemorrhoids Genitourinary Genitourinary: Denies change in urinary stream, external genitalia discoloration or hematospermia Physical Exam Narrative Vascular: Dorsalis pedis posterior tibial pulse palpable 2 out of 4. Diffuse edema to left lower extremity. 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 Neurologic: Light touch protective sensation absent to bilateral feet. Dermatologic: Full-thickness wound noted to plantar heel probes to bone with a fibrogranular base significant serosanguineous drainage some undermining deep probing periwound erythema edema and warmth. No evidence of fluctuance or crepitus at this time. Musculoskeletal: No gross musculoskeletal deformity contributing to wound formation. Left muscular strength full to right lower extremity diminished to left lower extremity. No pain with calf squeeze or palpation of popliteal fossa. Radiographs demonstrate new erosive changes to plantar calcaneus. Const alert and oriented x3 Lab / Micro Data Result Diagrams: 03/13/22 06:21 03/13/22 06:21 Labs: Laboratory Results - last 24 hr 03/12/22 12:49: WBC 11.7 H, RBC 4.86, Hgb 13.9, Hct 42.7, MCV 87.9, MCH 28.6, MCHC 32.6, RDW Std Deviation 55.1 H, RDW Coeff of Darrell 17.2 H, Plt Count 193, MPV 10.8, Immature Gran % (Auto) 0.300, Neut % (Auto) 64.1, Lymph % (Auto) 22.4, [place] % (Auto) 11.3 H, Eos % (Auto) 1.5, Baso % (Auto) 0.4, Absolute Neuts (auto) 7.5, Absolute Lymphs (auto) 2.63, Nucleated RBC % 0 03/12/22 12:49: Sodium 136, Potassium 4.1, Chloride 104, Carbon Dioxide 28.0, Anion Gap 4 L, BUN 39 H, Creatinine 2.32 H, Estim Creat Clear Calc 36.42, Est GFR (MDRD) Af Amer 36 L, Est GFR (MDRD) Non-Af 30 L, BUN/Creatinine Ratio 16.8, Glucose 151 H, Calcium 9.2 03/12/22 21:33: POC Glucose 184 H 03/13/22 06:21: WBC 10.1, RBC 4.65, Hgb 12.8 L, Hct 41.1, MCV 88.4, MCH 27.5, MCHC 31.1 L, RDW Std Deviation 54.9 H, RDW Coeff of [place] 17.0 H, Plt Count 183, MPV 11.2, Immature Gran % (Auto) 0.300, Neut % (Auto) 72.4 H, Lymph % (Auto) 15.5 L, [place] % (Auto) 9.1, Eos % (Auto) 2.2, Baso % (Auto) 0.5, Absolute Neuts (auto) 7.3, Absolute Lymphs (auto) 1.56, Nucleated RBC % 0 03/13/22 06:21: Sodium 133 L, Potassium 4.6, Chloride 102, Carbon Dioxide 26.0, Anion Gap 5, BUN 42 H, Creatinine 2.54 H, Estim Creat Clear Calc 33.27, Est GFR (MDRD) Af Amer 33 L, Est GFR (MDRD) Non-Af 27 L, BUN/Creatinine Ratio 16.5, Glucose 211 H, Calcium 8.5 Radiology Impression Foot X-Ray 03/12/22 13:50 IMPRESSION: New onset osteomyelitis of the posterior inferior calcaneus with large adjacent ulcer. Severe soft tissue swelling of the foot. Osteopenia and degenerative changes as above. Electronically Signed: Ciaran Richard MD, [place] at 14:13 EDT ,
--- NOTE | 2022-03-13 13:50 | MRI_ITS ---
EXAM: MR LEFT LOWER EXTREMITY WITHOUT INTRAVENOUS CONTRAST, ANKLE CLINICAL INDICATION: Left heel wound with osteomyelitis osteomyelitis Technologist Notes Other, CHRONIC DIABETIC FOOT ULCER PLANTAR SURFACE OF HEEL X 20 MONTHS. INCREASING PAIN, REDNESS AND SWELLING. TECHNIQUE: Multiplanar and multisequence MR images of the left ankle without intravenous contrast. This report was created using [employer] report generation technology. COMPARISON: XR FOOT 03/12/22 FINDINGS: LIGAMENTS: ANTERIOR TALOFIBULAR: Unremarkable. Intact. POSTERIOR TALOFIBULAR: Unremarkable. Intact. ANTERIOR TIBIOFIBULAR: Unremarkable. Intact. POSTERIOR TIBIOFIBULAR: Unremarkable. Intact. CALCANEOFIBULAR: Unremarkable. Intact. DELTOID: Unremarkable. Intact. SPRING: Unremarkable. Intact. LISFRANC: Unremarkable. Intact. TENDONS: ACHILLES: Unremarkable. Intact. FLEXOR: Unremarkable. Intact. EXTENSOR: Unremarkable. Intact. PERONEAL: Unremarkable. Intact. TIBIALIS ANTERIOR: Unremarkable. Intact. TIBIALIS POSTERIOR: Unremarkable. Intact. MUSCLES: Unremarkable. Normal bulk and signal. FLUID: MRI findings consistent for diffuse osteomyelitis of the calcaneus. Ankle joint effusion. Abnormal MRI signal of the calcaneus at the level of the tarsal sinus concerning for a stress fracture. SINUS TARSI: Unremarkable. Normal fat in the sinus tarsi. TARSAL TUNNEL: Unremarkable. PLANTAR FASCIA: Unremarkable. Intact. CARTILAGE: Unremarkable. No osteochondral lesion. Articular cartilage intact. BONES/JOINTS: There is abnormal increased STIR signal around the calcaneus. There is low T1 signal around the calcaneus. This is concerning for osteomyelitis. Large plantar ulcer extending to the surface of the calcaneus. Talar dome intact. No fracture or marrow edema. OTHER SOFT TISSUES: Diffuse soft tissue swelling around the foot and ankle. MRI/Lower Ext/No Jt/w/o IMPRESSION: 1. Diffuse soft tissue swelling around the foot and ankle. 2. MRI findings consistent for diffuse osteomyelitis of the calcaneus. Ankle joint effusion. Abnormal MRI signal of the calcaneus at the level of the tarsal sinus concerning for a stress fracture. Electronically Signed: Wale Schneider MD at 15:37 EDT Reading Location ID and State: [facility] / [place] , Service support ,
--- NOTE | 2022-03-13 14:20 | WOUNDNOTE ---
wound photo: left heel
[2022-03-13 15:16] VITALS: BP 110/56; PULSE 56; RESP 16; TEMP 35.8; O2SAT 92
--- NOTE | 2022-03-13 18:16 | PN.HOSP_ITS ---
Subjective Subjective Examined today, he met with podiatry who talked with him about different treatment options for the large left heel ulceration. Patient has requested to be placed on regular diet, at this time his continuous dextrose monitor is not able to be used as the patient has no way of connecting with it. I asked nursing to asked the patient to undergo fingerstick blood sugars which she had refused to comply with before. Objective Data Objective Data Vital Signs: Vital Signs Temp Pulse Resp BP Pulse Ox O2 Del Method 96.4 F L 56 L 16 110/56 L 92 Room Air 03/13/22 15:16 03/13/22 15:16 03/13/22 15:16 03/13/22 15:16 03/13/22 15:16 03/13/22 15:16 Oxygen Delivery Method Room Air Weight: 111.6 kg Body Mass Index (BMI) 30.7 Intake & Output: Intake and Output for Last 24 Hours 03/11/22 03/12/22 03/13/22 23:59 23:59 23:59 Intake Total 705 / 705 1120 / 1120 Balance 705 / 705 1120 / 1120 Lab / Micro Data Result Diagrams: 03/13/22 06:21 03/13/22 06:21 Labs: Laboratory Results - last 24 hr 03/12/22 21:33: POC Glucose 184 H 03/13/22 06:21: WBC 10.1, RBC 4.65, Hgb 12.8 L, Hct 41.1, MCV 88.4, MCH 27.5, MCHC 31.1 L, RDW Std Deviation 54.9 H, RDW Coeff of Darrell 17.0 H, Plt Count 183, MPV 11.2, Immature Gran % (Auto) 0.300, Neut % (Auto) 72.4 H, Lymph % (Auto) 15.5 L, [place] % (Auto) 9.1, Eos % (Auto) 2.2, Baso % (Auto) 0.5, Absolute Neuts ( auto) 7.3, Absolute Lymphs (auto) 1.56, Nucleated RBC % 0 03/13/22 06:21: Sodium 133 L, Potassium 4.6, Chloride 102, Carbon Dioxide 26.0, Anion Gap 5, BUN 42 H, Creatinine 2.54 H, Estim Creat Clear Calc 33.27, Est GFR (MDRD) Af Amer 33 L, Est GFR (MDRD) Non-Af 27 L, BUN/Creatinine Ratio 16.5, Glucose 211 H, Calcium 8.5 Radiography Diagnostic Testing: Radiology Impression Venous Doppler Study 03/13/22 12:20 Interpretation Summary There is no evidence of left lower extremity deep vein thrombosis. Left great saphenous vein appears patent and compressible segmentally. Normal flow patterns right common femoral vein Ordering Physician: August Espinal Referring Physician: Emmett Rosario Performed By: Ignacio Grady, T Lower Extremity MRI 03/13/22 13:50 IMPRESSION: 1. Diffuse soft tissue swelling around the foot and ankle. 2. MRI findings consistent for diffuse osteomyelitis of the calcaneus. Ankle joint effusion. Abnormal MRI signal of the calcaneus at the level of the tarsal sinus concerning for a stress fracture. Electronically Signed: Wale Schneider MD at 15:37 EDT Reading Location ID and State: [facility] [place] / [place] , Service support , Physical Exam Const alert, oriented x3, no apparent distress and healthy appearing General Appearance: cooperative, well kempt and well developed Orientation / Consciousness: awake, oriented to person, oriented to place and oriented to time HEENT normocephalic and moist oral mucous membranes Eyes PERRL, EOMs intact bilaterally and conjunctivae normal Neck supple, no JVD, thyroid normal and no carotid bruits General: trachea midline Resp normal respiratory effort and clear to auscultation bilaterally Auscultation: Negative for rales, rhonchi or wheezes Cardio regular rate, regular rhythm, no murmurs, no rub and no gallops GI normal to inspection, nondistended, normoactive bowel sounds, soft to palpation, non-tender and non-distended Extremity no clubbing, cyanosis or edema Skin Skin Narrative: Large full-thickness ulceration of the patient's left heel, the bone matrix is visible on the patient's left heel Neuro oriented x3, CN's II-XII intact bilaterally, no focal motor deficits and no sensory deficits noted Sensorium / Orientation: awake and alert Speech: speech normal Psych affect normal Assessment & Plan Assessment/Plan (1) Osteomyelitis of foot, left, acute: PLAN: Plan 1. Neuropathic ulceration of the left heel with osteomyelitis-patient remains on IV antibiotics at this time, infectious diseases is participating in his care. Podiatry will need to take the patient to surgery to clean out the wound, there is a possibility he may need a below the knee amputation performed on his left leg, patient is aware of this #2 uncontrolled type 2 diabetes-due to patient noncompliance, again I have requested the patient allow fingerstick blood sugars to be obtained, patient refuses to eat a diabetic diet and instead requested a regular diet which I have agreed to. According to nursing, he has agreed to have his fingerstick blood sugars checked. #3 neuropathy secondary to type 2 diabetes-patient complains of ongoing foot pain, initially offered to place the patient on MS Contin for pain, he refused to take it however and so I have discontinued. I placed him back on his gabapentin at a lower dose than he was on at home. #4 coronary artery disease-this appears to be stable at this time #5 essential hypertension-patient will remain on his current medications #6 hyperlipidemia-patient is on atorvastatin Charges/Coding Visit Charges Inpatient E&M: 63974 Subs Hosp L2
[2022-03-13 18:46] LABS: Bedside Glucose 173 mg/dL (74-106)
[2022-03-13] MEDS: Insulin Lispro 100 UNIT/ML INSULN.PEN SC ×2 (18:50→21:22)
--- NOTE | 2022-03-13 19:03 | NURSING ---
Patient allowing for blood sugar checks and for insulin to be administered at this time. Dr. Sarah aware
--- NOTE | 2022-03-13 19:03 | NURSING ---
Charting reviewed with Terri Choi RN
--- NOTE | 2022-03-13 19:14 | PCM.CONS.GEN ---
Assessment & Plan Assessment/Plan (1) Osteomyelitis of foot, left, acute: PLAN: MRI pending. Podiatry following. On empiric vanc/zosyn. Cxs pending, so far showing pseudomonas-like and GNR. 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 Had completed abx about a week prior. No inciting event, no fever or chills. Having some pain, drainage, redness. Admitted on vanc/zosyn, seen by podiatry. Full ROS performed and neg except as noted above PFSH Medical History Atherosclerotic heart disease of [place] coronary artery without angina pectoris Cancer Chest pain CKD (chronic kidney disease), stage III COPD (chronic obstructive pulmonary disease) Current use of insulin Diabetes mellitus Difficulty swallowing DVT (deep venous thrombosis) Essential hypertension Former tobacco use History of kidney cancer Myocardial infarct Obesity CAMACHO (obstructive sleep apnea) Osteomyelitis Osteomyelitis of foot, left, acute Other acute osteomyelitis, left ankle and foot Polycythemia secondary to hypoxia Sepsis Status post debridement of ulcer of heel Type 2 diabetes mellitus with diabetic polyneuropathy Wears hearing aid in both ears Home Medications ascorbic acid (vitamin C) 1,000 mg tablet 1,000 mg PO TID vitamin 07/11/20 [History Last Taken 05/27/21] aspirin 81 mg chewable tablet 81 mg PO DAILY@0800 heart health 07/11/20 [History Last Taken 05/27/21] atorvastatin 80 mg tablet 80 mg PO QHS cholesterol 07/11/20 [History Last Taken 05/27/21] carvedilol 12.5 mg tablet 12.5 mg PO BID blood pressure 08/17/20 [History Last Taken 06/01/21 08:10] cholecalciferol (vitamin D3) 125 mcg (5,000 unit) capsule 125 mcg PO DAILY Supplement 05/28/21 [History Last Taken 05/27/21] gabapentin 800 mg tablet 800 mg PO TID neuropathy 06/29/21 [History Last Taken Unknown] insulin glargine 100 unit/mL (3 mL) subcutaneous pen (Lantus Solostar U-100 Insulin) 40 units subcut QHS diabetes 06/29/21 [History Last Taken Unknown] insulin lispro 100 unit/mL subcutaneous pen See Protocol subcut TIDCM diabetes 06/29/21 [History Last Taken Unknown] zinc sulfate 50 mg zinc (220 mg) capsule 220 mg PO DAILY supplement 06/29/21 [History Last Taken Unknown] glipizide 10 mg tablet, extended release 24 hr 1 tab PO DAILY 11/05/21 [History Last Taken Unknown] losartan 50 mg tablet 50 tab PO DAILY 11/05/21 [History Last Taken Unknown] magnesium 500 mg tablet 500 mg PO DAILY 11/05/21 [History Last Taken Unknown] amlodipine 10 mg tablet 10 mg PO DAILY 11/23/21 [History Last Taken Unknown] oxycodone-acetaminophen 10 mg-325 mg tablet (Percocet) 1 tab PO TID PRN Pain 11/23/21 [History Last Taken Unknown] vitamin B complex 1 cap PO DAILY 03/12/22 [History Last Taken Unknown] Allergy/AdvReac Type Severity Reaction Status Date / Time codeine AdvReac Nausea Verified 03/12/22 11:59 promethazine [From Phenergan] AdvReac Nausea Verified 03/12/22 11:59 Family History Father CVA (cerebral vascular accident) Myocardial infarction Mother Dementia Surgical History History of appendectomy History of coronary artery stent placement (~08/13/07) History of surgery on arm Hx of hand surgery Hx of partial nephrectomy Previous back surgery S/P appendectomy Social History household members: none Smoking Status: Light Smoker (<10/day) Tobacco: How many years used: 50 how long ago did patient quit smoking: Smoked ~1/2 ppd x 50 years until quit. alcohol intake: never substance use type: does not use caffeine: Yes Type: coffee Number of servings: 1 Physical Exam Const alert, oriented x3 and no apparent distress General Appearance: cooperative HEENT normocephalic and head/scalp atraumatic Eyes PERRL and EOMs intact bilaterally Neck supple and No nodes Resp normal air movement Cardio regular rate and regular rhythm GI soft to palpation, non-tender and non-distended Extremity General Extremity: Negative for edema Skin Skin Narrative: reviewed photo, L heel wound Neuro CN's II-XII intact bilaterally Lab / Micro Data Attestation: I reviewed the patient's lab results. Result Diagrams: 03/13/22 06:21 03/13/22 06:21 Labs: Laboratory Results - last 24 hr 03/12/22 21:33: POC Glucose 184 H 03/13/22 06:21: WBC 10.1, RBC 4.65, Hgb 12.8 L, Hct 41.1, MCV 88.4, MCH 27.5, MCHC 31.1 L, RDW Std Deviation 54.9 H, RDW Coeff of Darrell 17.0 H, Plt Count 183, MPV 11.2, Immature Gran % (Auto) 0.300, Neut % (Auto) 72.4 H, Lymph % (Auto) 15.5 L, [place] % (Auto) 9.1, Eos % (Auto) 2.2, Baso % (Auto) 0.5, Absolute Neuts (auto) 7.3, Absolute Lymphs (auto) 1.56, Nucleated RBC % 0 03/13/22 06:21: Sodium 133 L, Potassium 4.6, Chloride 102, Carbon Dioxide 26.0, Anion Gap 5, BUN 42 H, Creatinine 2.54 H, Estim Creat Clear Calc 33.27, Est GFR (MDRD) Af Amer 33 L, Est GFR (MDRD) Non-Af 27 L, BUN/Creatinine Ratio 16.5, Glucose 211 H, Calcium 8.5 03/13/22 18:23: POC Glucose 173 H Radiology Impression Venous Doppler Study 03/13/22 12:20 Interpretation Summary There is no evidence of left lower extremity deep vein thrombosis. Left great saphenous vein appears patent and compressible segmentally. Normal flow patterns right common femoral vein Ordering Physician: August Espinal Referring Physician: Emmett Rosario Performed By: Ignacio Grady, T Lower Extremity MRI 03/13/22 13:50 IMPRESSION: 1. Diffuse soft tissue swelling around the foot and ankle. 2. MRI findings consistent for diffuse osteomyelitis of the calcaneus. Ankle joint effusion. Abnormal MRI signal of the calcaneus at the level of the tarsal sinus concerning for a stress fracture. Electronically Signed: Wale Schneider MD at 15:37 EDT ,
[2022-03-13 20:56] LABS: Bedside Glucose 182 mg/dL (74-106)
[2022-03-13 21:15] VITALS: BP 122/57; PULSE 64; RESP 18; TEMP 36.6; O2SAT 95
[2022-03-13] MEDS: Ascorbic Acid 500 MG Tablet 1000 MG PO (21:19)
[2022-03-13] MEDS: Atorvastatin Calcium 80 MG Tablet PO (21:19)
--- NOTE | 2022-03-13 21:45 | NURSING ---
PT REFUSED HIS LANTUS AND MS CONTIN BUT DID ALLOW HUMALOG TO BE GIVEN. PT GOES TO BATHROOM UNASSISTED AND REFUSES TO ASK FOR HELP. PT DEFENSIVE AND JUSTIFIES WHY HE REFUSES.
[2022-03-14] VITALS (14 sets, daily range): BP systolic 97–128; BP diastolic 48–65; PULSE 47–70; RESP 14–18; TEMP 35.6–37.2; O2SAT 92–99; BMI 30.7
[2022-03-14] MEDS: Vancomycin IV 1,000 MG/200 ML BAG 200 MG IV (03:37)
[2022-03-14 04:39] LABS: Vancomycin, Trough Level 22.9 ug/mL (5.0-15.0)
[2022-03-14] MEDS: Ascorbic Acid 500 MG Tablet 1000 MG PO ×2 (04:54→20:52)
--- NOTE | 2022-03-14 04:57 | PCM.RX.CS ---
Consult Pharmacy has been consulted to manage selected antiobiotic: Vancomycin Type of Consult: Follow-up Suspected Infection: Osteomyelitis Prior Doses of Antibiotics Received/Current Regimen: Medications Vancomycin HCl (Vancomycin) 1,000 mg in 200 mls @ 200 mls/hr IV Q12H BRENDA Last Admin: 03/14/22 04:48 Dose: Infused Labs: Sodium 133 mmol/L (136-145) L 03/13/22 06:21 Potassium 4.6 mmol/L (3.5-5.1) 03/13/22 06:21 Chloride 102 mmol/L (98-107) 03/13/22 06:21 Carbon Dioxide 26.0 mmol/L (21.0-32.0) 03/13/22 06:21 Anion Gap 5 (5-15) 03/13/22 06:21 BUN 42 mg/dL (7-18) H 03/13/22 06:21 Creatinine 2.54 mg/dL (0.70-1.30) H 03/13/22 06:21 Est GFR (MDRD) Af Amer 33 mL/min (>60) L 03/13/22 06:21 Est GFR (MDRD) Non-Af 27 mL/min (>60) L 03/13/22 06:21 BUN/Creatinine Ratio 16.5 RATIO (10-20) 03/13/22 06:21 Glucose 211 mg/dL (74-106) H 03/13/22 06:21 Vancomycin Trough 22.9 ug/mL (5.0-15.0) H 03/14/22 03:35 Weight used for dosin.6 kg Estimated Creatinine Clearance: 37 Goal Trough: 15-20 mcg/mL Pharmacy Plan for Drug Dosing: Vancomycin trough level of 22.9 was above the target range of 15-20. Will hold current dosing and draw a random level in 12 hours. Further doses will be determined from that result. Pharmacy Service will continue to monitor and adjust dosing as required. Follow-Up Labs: Trough Vancomycin - random Labs to be done on [date and time ordered]: 03/14/22 @0183
[2022-03-14] MEDS: Insulin Lispro 100 UNIT/ML INSULN.PEN SC ×2 (06:44→20:52)
[2022-03-14 07:07] LABS: Bedside Glucose 160 mg/dL (74-106)
[2022-03-14] MEDS: Aspirin 81 MG TAB.CHEW PO (08:33)
[2022-03-14] MEDS: Gabapentin 600 MG Tablet PO ×3 (08:33→19:48)
[2022-03-14 08:34] LABS: Hemoglobin A1c 7.3 % (3.8-5.6)
--- NOTE | 2022-03-14 09:27 | PN.ID_ITS ---
Physical Exam Narrative Feeling ok, foot sore, no fever Const alert and no apparent distress Resp normal air movement and clear to auscultation bilaterally Cardio regular rate and regular rhythm GI soft to palpation, non-tender and non-distended Skin Skin Narrative: L foot wrapped ID ID: Route of nutrition/ use of supplements: [] Nutritional Intake: [] IV Site: [] Gonzales Catheter: [] Assessment & Plan Assessment/Plan (1) Osteomyelitis of foot, left, acute: PLAN: MRI shows osteo. Podiatry following. On empiric vanc/zosyn. Cxs pending, so far showing pseudomonas and GNR. Will follow (2) CKD (chronic kidney disease), stage III: (3) Type 2 diabetes mellitus with diabetic polyneuropathy: QUALIFIERS: Diabetes mellitus ad terminal makeup operator insulin use: with ad terminal makeup operator use Qualified Code(s): E11.42 - Type 2 diabetes mellitus with diabetic polyneuropathy; Z79.4 - intermodal dispatcher (current) use of insulin
[2022-03-14] MEDS: DAKIN'S SOL HALF STRENGTH (=0.25%) 1 APPLIC TOPICAL (09:31)
[2022-03-14] MEDS: Losartan Potassium 50 MG Tablet PO (09:51)
[2022-03-14] MEDS: Carvedilol 12.5 MG Tablet PO ×2 (09:51→20:52)
[2022-03-14] MEDS: amLODIPine 10 MG Tablet PO (09:51)
[2022-03-14] MEDS: Heparin Injection (Vial) 5,000 UNIT/ML VIAL 5000 UNIT SC (09:56)
[2022-03-14 12:25] LABS: Bedside Glucose 158 mg/dL (74-106)
--- NOTE | 2022-03-14 13:36 | NURSING ---
report called to Yoon in ac
--- NOTE | 2022-03-14 14:23 | RAD_ITS ---
STUDY: INTRAOPERATIVE FLUOROSCOPY TECHNIQUE: The examination was performed with referring physician in attendance. Under fluoroscopic observation, fluoroscopic images were obtained. Radiologist was not present for the study. Radiologist did not perform the procedure. This dictation is for documentation of the radiation dosage only. There is no interpretation of the images. TOTAL NUMBER OF IMAGES: 1 COMPARISON: 03/12/2022 RADIATION DOSE: 0.57 mGy FLUOROSCOPY TIME: 36 seconds REASON FOR EXAM: INCISION BONE CORTEX Male, 66 years old. FINDINGS: Resection of the calcaneus RAD/Foot 2 Views IMPRESSION: Fluoroscopic assistance images were obtained. Dictation for documentation purposes only. Electronically Signed: Wale Schneider MD at 17:25 EDT ,
--- NOTE | 2022-03-14 14:45 | BON_PTH ---
PATIENT: JUAREZ GOODRICH LOC: [facility] U#:[id number] AGE/SX: 66/M ROOM: [facility] RE03/12/[address]: Dr. Ciaran Sarah DO : 1955 BED: 1 DIS: 03/16/2022 SPEC #: [id number] RECD: 03/15/22 10:34 STATUS: MALENA REQ #: [id number] GILBERTO: 03/14/22 14:[address]: August Espinal DEPT: SURGICAL PATHOLOGY RECD BY: Kimberly Acevedo ENTERED: 03/15/22 11:10 SP TYPE: Bone OTHR DR: MD Dr. David Tai, DPDO Dr. Piter Chapa Dr., MD Dr. Robert Leininger, MD Tissues: Foot, NOS Procedures: Decalcification bone/plaque Surgery Specimen Level IV Comments: @ Ordering doctor for DEC edited from to @ by SHARAD at 03/15/221451 @ Ordering doctor for SUIV edited from to @ by SHARAD at 03/15/22 145 @ Submitting doctor edited from to @ by SHARAD at 03/15/221451 HEADER OPERATION: Left foot partial calcanectomy PRE-OP DIAGNOSIS: Osteomyelitis of left foot, chronic kidney disease stage III TISSUE SUBMITTED: Left calcaneal bone MICROSCOPIC DIAGNOSIS Left calcaneal bone, excision: Soft tissue with ulceration and associated acute and chronic inflammation. Bone with acute and chronic osteomyelitis. AM:dominique 03/20/2022 MICROSCOPIC DESCRIPTION Slides are reviewed. GROSS DESCRIPTION Received in fixative is one container labeled with the patient's name and designated left calcaneal bone. The specimen consists of three irregular fragments of velazquez bone ranging in size from 2 to 2.8 cm. Latent Print Examiner sections of bone are submitted in two cassettes after decalcification. / AM:dominique 03/15/2022 TC:2 CPT: 43399, 51250
[2022-03-14] MEDS: 0.9% Normal Saline 1,000 ML 15 ML IV (14:52)
[2022-03-14] MEDS: Bupivacaine 0.25% 30 ML Vial (16:30)
--- NOTE | 2022-03-14 17:02 | OP.PCM_ITS ---
Problems Associated Problem List Diagnoses (1) Osteomyelitis of foot, left, acute: (2) Non-pressure chronic ulcer of other part of left foot with fat layer exposed: Report of Operation Date of Procedure: 03/14/22 Pre-Operative Diagnosis: Chronic nonhealing ulceration left foot osteomyelitis left calcaneus diffuse Post-Operative Diagnosis: Same Surgery/Procedure Performed:: Partial calcanectomy left foot Description of Surgical Findings:: Patient had diffuse chronic osteomyelitis to his left foot. There is significant involucrum formation. Upon resection Achilles tendon insertion was maintained. This was confirmed with calf squeeze testing. (Elder squeeze) Surgeon: August Espinal cable systems installer: None (norma pena) Type of Anesthesia: General Special Medications: 20 cc quarter percent Marcaine plain Specimen's removed: Prelavage swab cultures left foot wound post lavage swab cultures left foot wound calcaneus for pathology calcaneus for microbiology Drains: None Estimated Blood Loss (mL): 50 cc Description of Procedure: Patient was brought back to the operating placed comfortably in the supine position on the operating room table. Patient was induced under general anesthesia. Left lower extremities elevated on blankets left lower extremity bumped not currently external rotation. Well-padded left thigh tourniquet applied. Preoperatively a local block was performed with 20 cc of half percent Marcaine plain using an ankle block technique. Left lower extremity was then scrubbed prepped draped using typical aseptic manner. Left lower extremity was elevated exsanguinated tourniquet Cytra-K was inflated to 300 mmHg. Once cleared by anesthesia fluoroscopic imaging was brought in and used for incisional placement a short lateral extensile incision was made just anterior to the distal tip of the Achilles insertion along the plantar aspect of the calcaneus distally. This curved incision was made full-thickness with a #15 blade through the epidermis dermis into subcutaneous tissue down to level of bone. Any bleeders were cauterized at this time. Vascular structures were protected via blunt retraction. The superior flap was then dissected off of the calcaneus laterally. Care was taken while doing this using fluoroscopic and intraoperative planning a plantar longitudinal cut was made from lateral to medial resecting the plantar infected calcaneus. This was atraumatically dissected off of the plantar fascia distally the medial soft tissue structures as well as the posterior soft tissue structures was mainly composed of the Ac hilles tendon. Achilles tendon complex was maintained to be intact and confirmed with Elder squeeze testing. This amount of bone resection was performed as there is diffuse calcaneal bone infection confirmed on radiographs and MRI. Once this bone resected half was sent to pathology the other half was sent to microbiology microbiology for further examination swab cultures were taken of the plantar calcaneal wound. Lavage at this time. Left foot was then pulse lavage with copious normal sterile saline and then post lavage swab cultures were taken and only clean instruments were used from this point. Incision was then closed using combination of 2-0 Vicryl buried interrupted and skin closure was performed with live. The plantar incision was dressed with Betadine wet-to-dry as well as Betadine paint to the lateral incision. 4 x 4's as well as for ABD pads were used to in the dressing and Kerlix was applied x2 over this. Then a modified Boles compression posterior splint was applied to the left lower extremity. The thigh tourniquet was let down was noted to be approximately 60 minutes. Patient transferred to PACU vital signs stable vascular status intact all digits for further monitoring prior to discharge patient tolerated procedure well as well as anesthesia. Patient will be transferred back to the floor we will continue to receive IV antibiotics. Due to diffuse calcaneal involvement I recommend PICC line for IV antibiotics for 6 weeks. We will continue to follow patient closely.
--- NOTE | 2022-03-14 17:14 | PN.HOSP_ITS ---
Subjective Subjective Patient was seen and examined today, his blood sugars appear under fair control at this time, he does not complain of any severe pain in his left foot. Patient was taken to surgery late this afternoon. Objective Data Objective Data Vital Signs: Vital Signs Temp Pulse Resp BP Pulse Ox O2 Del Method 98.5 F 70 18 124/65 H 94 Room Air 03/14/22 17:03 03/14/22 17:03 03/14/22 17:03 03/14/22 17:03 03/14/22 17:03 03/14/22 17:03 Oxygen Delivery Method Room Air Weight: 111.6 kg Body Mass Index (BMI) 30.7 Intake & Output: Intake and Output for Last 24 Hours 03/12/22 03/13/22 03/14/22 23:59 23:59 23:59 Intake Total 705 / 705 1969 700 / 700 Balance 705 / 705 1969 700 / 700 Lab / Micro Data Result Diagrams: 03/13/22 06:21 03/13/22 06:21 Labs: Laboratory Results - last 24 hr 03/13/22 18:23: POC Glucose 173 H 03/13/22 20:35: POC Glucose 182 H 03/14/22 03:35: Vancomycin Trough 22.9 H 03/14/22 03:35: Hemoglobin A1c 7.3 H 03/14/22 06:42: POC Glucose 160 H 03/14/22 12:06: POC Glucose 158 H Micro: Microbiology 03/12/22 13:12 Blood Culture (Wb) - Anticubital Left Blood Culture - Pre liminary No growth in 48 hours. 03/12/22 12:49 Blood Culture (Wb) - Anticubital Right Blood Culture - Preliminary No growth in 48 hours. Physical Exam Narrative alert, oriented x3, no apparent distress and healthy appearing General Appearance: cooperative, well kempt and well developed Orientation / Consciousness: awake, oriented to person, oriented to place and oriented to time HEENT normocephalic and moist oral mucous membranes Eyes PERRL, EOMs intact bilaterally and conjunctivae normal Neck supple, no JVD, thyroid normal and no carotid bruits General: trachea midline Resp normal respiratory effort and clear to auscultation bilaterally Auscultation: Negative for rales, rhonchi or wheezes Cardio regular rate, regular rhythm, no murmurs, no rub and no gallops GI normal to inspection, nondistended, normoactive bowel sounds, soft to palpation, non-tender and non-distended Extremity no clubbing, cyanosis or edema Skin Skin Narrative: Large full-thickness ulceration of the patient's left heel, the bone matrix is visible on the patient's left heel Neuro oriented x3, CN's II-XII intact bilaterally, no focal motor deficits and no sensory deficits noted Sensorium / Orientation: awake and alert Speech: speech normal Psych affect normal Assessment & Plan Assessment/Plan (1) Osteomyelitis of foot, left, acute: PLAN: Plan 1. 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 Again podiatry took the patient to surgery today. #2 uncontrolled type 2 diabetes-due to patient noncompliance, again I have requested the patient allow fingerstick blood sugars to be obtained, patient refuses to eat a diabetic diet and instead requested a regular diet which I have agreed to. Patient remains on fingerstick blood sugars with sliding scale insulin coverage. #3 neuropathy secondary to type 2 diabetes-patient is currently on oxycodone as needed and gabapentin. #4 coronary artery disease-this appears to be stable at this time #5 essential hypertension-patient will remain on his current medications #6 hyperlipidemia-patient is on atorvastatin Charges/Coding Visit Charges Inpatient E&M: 99430 Subs Hosp L2
[2022-03-14 17:30] LABS: Bedside Glucose 132 mg/dL (74-106)
--- NOTE | 2022-03-14 19:25 | NURSING ---
reviewed and agree with coat baster documentation
[2022-03-14] MEDS: oxyCODONE 5 MG Tablet 10 MG PO (20:51)
[2022-03-14] MEDS: Atorvastatin Calcium 80 MG Tablet PO (20:52)
[2022-03-14 22:48] LABS: Glucose 348 mg/dL (74-106)
[2022-03-14 22:53] LABS: Vancomycin, Random Level 22.3 ug/mL (0.0-15.0)
--- NOTE | 2022-03-14 23:12 | PCM.RX.CS ---
Consult Pharmacy has been consulted to manage selected antiobiotic: Vancomycin Type of Consult: Follow-up Suspected Infection: Osteomyelitis Prior Doses of Antibiotics Received/Current Regimen: Medications Discontinued Medications Vancomycin HCl (Vancomycin) 1,000 mg in 200 mls @ 200 mls/hr IV Q12H BRENDA Last Admin: 03/14/22 04:48 Dose: Infused Labs: Sodium 133 mmol/L (136-145) L 03/13/22 06:21 Potassium 4.6 mmol/L (3.5-5.1) 03/13/22 06:21 Chloride 102 mmol/L (98-107) 03/13/22 06:21 Carbon Dioxide 26.0 mmol/L (21.0-32.0) 03/13/22 06:21 Anion Gap 5 (5-15) 03/13/22 06:21 BUN 42 mg/dL (7-18) H 03/13/22 06:21 Creatinine 2.54 mg/dL (0.70-1.30) H 03/13/22 06:21 Est GFR (MDRD) Af Amer 33 mL/min (>60) L 03/13/22 06:21 Est GFR (MDRD) Non-Af 27 mL/min (>60) L 03/13/22 06:21 BUN/Creatinine Ratio 16.5 RATIO (10-20) 03/13/22 06:21 Glucose 348 mg/dL (74-106) H 03/14/22 21:57 Vancomycin Trough 22.9 ug/mL (5.0-15.0) H 03/14/22 03:35 Random Vancomycin 22.3 ug/mL (0.0-15.0) H 03/14/22 21:57 Microbiology: Microbiology 03/12/22 13:12 Blood Culture (Wb) - Anticubital Left Blood Culture - Preliminary No growth in 48 hours. 03/12/22 12:49 Blood Culture (Wb) - Anticubital Right Blood Culture - Preliminary No growth in 48 hours. Weight used for dosin.6 kg Estimated Creatinine Clearance: 37 Goal Trough: 15-20 mcg/mL Pharmacy Plan for Drug Dosing: Random vancomycin level drawn 18.5hrs after the last dose was still high at 22.3. Will continue to hold vanco dosing, and redraw a level 03/15/22 @1000. Pharmacy Service will continue to monitor and adjust dosing as required. Follow-Up Labs: Trough Vancomycin - random Labs to be done on [date and time ordered]: 03/15/22 @1000 random
[2022-03-14 23:20] LABS: Bedside Glucose 294 mg/dL (74-106)
--- NOTE | 2022-03-14 23:22 | NURSING ---
pt refused 40units of insulin glargine, but allowed sliding scale. pt states that he never takes the 40units at home.
[2022-03-14] MEDS: Acetaminophen 500 MG Tablet 1000 MG PO (23:29)
[2022-03-15] VITALS (8 sets, daily range): BP systolic 107–130; BP diastolic 50–59; PULSE 56–72; RESP 16–18; TEMP 36.3–37; O2SAT 91–96
[2022-03-15] MEDS: 0.9% Saline Lock 10 ML Syringe IV ×2 (06:40→21:28)
[2022-03-15] MEDS: Insulin Lispro 100 UNIT/ML INSULN.PEN SC ×4 (06:40→21:28)
[2022-03-15] MEDS: Ascorbic Acid 500 MG Tablet 1000 MG PO ×3 (06:40→21:28)
[2022-03-15 07:06] LABS: Bedside Glucose 363 mg/dL (74-106)
[2022-03-15] MEDS: Gabapentin 600 MG Tablet PO ×3 (07:42→17:07)
[2022-03-15] MEDS: morphine SR 15 MG Tablet 30 MG PO (09:12)
[2022-03-15] MEDS: Carvedilol 12.5 MG Tablet PO ×2 (09:13→21:28)
[2022-03-15] MEDS: Losartan Potassium 50 MG Tablet PO (09:14)
--- NOTE | 2022-03-15 09:41 | CASEMGMT ---
Physician told SW patient will need SNF placement and patient is in agreement. Physician offered and he took patient the list of intermediate?providers including quality and resource use data and consistent with patient?s preferred geographic region, medical needs, and insurance network were provided from the [facility] Guide. Physician said patient is interested in [facility], [facility], and [facility]. SW has left a message for Jumana in TCU to see if there are any beds in TCU. KARLI will also verify with patient that these are his choices. Plan: SNF pending patient being medically ready and accepting facility. Mirta Urena HOTEL DESK CLERKSugey CHRISTINE
[2022-03-15] MEDS: Bisacodyl 5 MG Tablet 10 MG PO (09:50)
--- NOTE | 2022-03-15 09:53 | CASEMGMT ---
Discharge Informatica Mdm Developer This appeals writer sent a referral to Abby at [facility] via [facility]. Will follow up. Alvaro KAUR Painter And Decorator
[2022-03-15 10:26] LABS: Vancomycin, Random Level 18.7 ug/mL (0.0-15.0)
--- NOTE | 2022-03-15 10:56 | PN_ITS ---
Subjective Subjective Patient seen 1 day postop. Patient underwent left partial calcanectomy. Patient denies constitutional symptoms. Patient notes moderate pain resolving from previous day wound when she was suffering from severe pain. Patient voiding urine and passing gas no other problems at this time. Objective Data Objective Data Vital Signs: Vital Signs Temp Pulse Resp BP Pulse Ox O2 Del Method O2 Flow Rate 98.1 F 67 18 107/50 L 94 Room Air 1 03/15/22 09:11 03/15/22 09:11 03/15/22 09:11 03/15/22 09:11 03/15/22 09:11 03/15/22 09:11 03/15/22 09:10 Oxygen Flow Rate (L/min) 1 Oxygen Delivery Method Room Air Weight: 111.6 kg Body Mass Index (BMI) 30.7 Intake & Output: Intake and Output for Last 24 Hours 03/13/22 03/14/22 03/15/22 23:59 23:59 23:59 Intake Total 1969 700 / 700 100 / 100 Output Total 450 / 450 Balance 1969 250 / 250 100 / 100 Lab / Micro Data Result Diagrams: 03/13/22 06:21 03/14/22 21:57 Labs: Laboratory Results - last 24 hr 03/14/22 12:06: POC Glucose 158 H 03/14/22 17:13: POC Glucose 132 H 03/14/22 20:45: POC Glucose 294 H 03/14/22 21:57: Glucose 348 H 03/14/22 21:57: Random Vancomycin 22.3 H 03/15/22 06:37: POC Glucose 363 H 03/15/22 09:40: Random Vancomycin 18.7 H Micro: Microbiology 03/12/22 13:12 Blood Culture (Wb) - Anticubital Left Blood Culture - Preliminary No growth in 48 hours. 03/12/22 12:49 Blood Culture (Wb) - Anticubital Right Blood Culture - Preliminary No growth in 48 hours. Radiography Diagnostic Testing: Radiology Impression Foot X-Ray 03/14/22 14:23 IMPRESSION: Fluoroscopic assistance images were obtained. Dictation for documentation purposes only. Electronically Signed: Wale Schneider MD at 17:25 EDT , Physical Exam Narrative Vascular: Dorsalis pedis posterior tibial pulse palpable 2 out of 4. Diffuse edema to left lower extremity. 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 Neurologic: Light touch protective sensation absent to bilateral feet. Dermatologic: Lateral extensile incision noted to the lateral left foot this is well approximated with intact live. Plantar heel wound demonstrates mild sanguinous drainage at current with exposed residual calcaneus. No rachell purulence. Resolving edema and erythema. No other signs of infection. Musculoskeletal: No gross musculoskeletal deformity contributing to wound forma tion. Left muscular strength full to right lower extremity diminished to left lower extremity. No pain with calf squeeze or palpation of popliteal fossa. Const alert and oriented x3 Assessment & Plan Assessment/Plan (1) Osteomyelitis of foot, left, acute: (2) Non-pressure chronic ulcer of other part of left foot with fat layer exposed: PLAN: Patient examined evaluated, all findings cussed with patient detail Patient 1 day postop from left partial calcanectomy. I recommend continue holding blood thinners for additional day if okay with medicine due to residual bleeding to surgical site. Incision and wound were undressed cleansed and redressed with saline wet-to-dry to plantar foot 4 x 4's ABD pads Kerlix and a well-padded posterior splint. Patient receiving IV vancomycin and Zosyn. Infectious disease on board. Awaiting microbiology results. Will continue to follow closely while in hospital. We will plan to continue with wound VAC once bleeding stops Due to prolonged nonweightbearing and intense wound care requirements in order to salvage the limb as well as potential for long-term IV antibiotics and the use of a wound VAC I recommend that the patient recovers in a senior living facility. Patient currently agreeable.
[2022-03-15 11:34] LABS: Creatinine, Serum 2.75 mg/dL (0.70-1.30); EST Glomerular Filtration Rate 25 mL/min (>60); Est Glom Filt Rate - Afr Amer 30 mL/min (>60); Estimated Creatinine Clearance 30.73 ml/min
[2022-03-15 11:35] LABS: Bedside Glucose 360 mg/dL (74-106)
--- NOTE | 2022-03-15 12:39 | CASEMGMT ---
Discharge Head Irrigator Reached out to Abby at [facility] about referral. Referral still in review. Alvaro KAUR Cuff Setter
--- NOTE | 2022-03-15 12:44 | CASEMGMT ---
Discharge Aircraft Powerplant Repairer Abby reached out. Patient has been accepted at [facility]. KARLI Kirby notified. Alvaro KAUR Assembly Line Inspector
--- NOTE | 2022-03-15 13:16 | CASEMGMT ---
KARLI notified patient that [facility] has accepted him and he may go today depending on how soon he can get his picc line. KARLI offered to call his daughter, but patient said he would call when he knows he is going. KARLI will start a convalescent in [facility]. Plan: d/c to [facility] under skilled level of care. Physicians will transport patient via wheelchair. Mirta CHRISTINE
--- NOTE | 2022-03-15 14:40 | CASEMGMT ---
KARLI was informed that patient will need a wound vac at discharge. D/c materials planning analyst Ashlyn spoke with Abby at [facility] and they have a wound vac in house so that is not a problem. KARLI notified physician via [facility] that patient can still go to [facility] tomorrow. Plan: d/c to [facility] under skilled level of care on a convalescent stay. Patient will be on IV antibiotics and have a wound vac which will be placed on patient when he gets to [facility]. Mirta Urena CLINICAL SUPPORT NURSESugey CHRISTINE
--- NOTE | 2022-03-15 15:44 | PN.ID_ITS ---
Physical Exam Narrative Feeling ok, no fever, no n/v/d. Const alert and no apparent distress Resp normal air movement and clear to auscultation bilaterally Cardio regular rate and regular rhythm GI soft to palpation, non-tender and non-distended Skin Skin Narrative: foot wrapped ID ID: Route of nutrition/ use of supplements: [] Nutritional Intake: [] IV Site: [] Gonzales Catheter: [] Assessment & Plan Assessment/Plan (1) Osteomyelitis of foot, left, acute: PLAN: MRI shows osteo. Podiatry following. Taken to OR for debridement 03/14. On empiric vanc/zosyn. Cxs with PsA and klebs. Stop vanc. Wrote for 6 weeks zosyn, stop date 04/25/22 with weekly labs. ID followup in 2 weeks. Will follow (2) CKD (chronic kidney disease), stage III: (3) Type 2 diabetes mellitus with diabetic polyneuropathy: QUALIFIERS: Diabetes mellitus group home insulin use: with group home use Qualified Code(s): E11.42 - Type 2 diabetes mellitus with diabetic polyneuropathy; Z79.4 - inspector and hand packager (current) use of insulin
--- NOTE | 2022-03-15 16:37 | PCM.PN.HOSP ---
Subjective Subjective Patient was seen and examined today, I talked briefly with infectious diseases about his care, his wound cultures grew out Klebsiella and Pseudomonas, patient remains on Zosyn at this time, he will have a PICC line inserted today and most likely will be transferred to an extended care facility tomorrow if he remains stable. Objective Data Objective Data Vital Signs: Vital Signs Temp Pulse Resp BP Pulse Ox O2 Del Method O2 Flow Rate 98.6 F 72 18 130/55 H 96 Room Air 1 03/15/22 15:10 03/15/22 15:10 03/15/22 15:10 03/15/22 15:10 03/15/22 15:10 03/15/22 15:10 03/15/22 09:10 Oxygen Flow Rate (L/min) 1 Oxygen Delivery Method Room Air Weight: 111.6 kg Body Mass Index (BMI) 30.7 Intake & Output: Intake and Output for Last 24 Hours 03/13/22 03/14/22 03/15/22 23:59 23:59 23:59 Intake Total 1969 700 / 700 650 / 650 Output Total 450 / 450 Balance 1969 250 / 250 650 / 650 Lab / Micro Data Result Diagrams: 03/13/22 06:21 03/15/22 09:40 Labs: Laboratory Results - last 24 hr 03/14/22 17:13: POC Glucose 132 H 03/14/22 20:45: POC Glucose 294 H 03/14/22 21:57: Glucose 348 H 03/14/22 21:57: Random Vancomycin 22.3 H 03/15/22 06:37: POC Glucose 363 H 03/15/22 09:40: Random Vancomycin 18.7 H 03/15/22 09:40: Creatinine 2.75 H, Estim Creat Clear Calc 30.73, Est GFR (MDRD) Af Amer 30 L, Est GFR (MDRD) Non-Af 25 L 03/15/22 11:08: POC Glucose 360 H Micro: Microbiology 03/14/22 16:39 Bone - Left Foot Gram Stain - Final 03/14/22 16:39 Bone - Left Foot Wound Culture - Preliminary Gram negative baljit 03/14/22 16:44 Tissue - Aerobic & Anaerobic Swabs Gram Stain - Final 03/14/22 16:42 Wound - Aerobic Swab Gram Stain - Final 03/12/22 13:12 Blood Culture (Wb) - Anticubital Left Blood Culture - Preliminary No growth in 48 hours. 03/12/22 12:49 Blood Culture (Wb) - Anticubital Right Blood Culture - Preliminary No growth in 48 hours. Radiography Diagnostic Testing: Radiology Impression Foot X-Ray 03/14/22 14:23 IMPRESSION: Fluoroscopic assistance images were obtained. Dictation for documentation purposes only. Electronically Signed: Wale Schneider MD at 17:25 EDT , Physical Exam Narrative alert, oriented x3, no apparent distress and healthy appearing General Appearance: cooperative, well kempt and well developed Orientation / Consciousness: awake, oriented to person, oriented to place and oriented to time HEENT normocephalic and moist oral mucous membranes Eyes PERRL, EOMs intact bilaterally and conjunctivae normal Neck supple, no JVD, thyroid normal and no carotid bruits General: trachea midline Resp normal respiratory effort and clear to auscultation bilaterally Auscultation: Negative for rales, rhonchi or wheezes Cardio regular rate, regular rhythm, no murmurs, no rub and no gallops GI normal to inspection, nondistended, normoactive bowel sounds, soft to palpation, non-tender and non-distended Extremity Patient's left foot is wrapped in surgical dressing, this was not removed for examination Skin Skin Narrative: Patient's left lower extremity is wrapped with surgical dressing and this was not removed for examination of the area Neuro oriented x3, CN's II-XII intact bilaterally, no focal motor deficits and no sensory deficits noted Sensorium / Orientation: awake and alert Speech: speech normal Psych affect normal Assessment & Plan Assessment/Plan (1) Osteomyelitis of foot, left, acute: PLAN: Plan 1. 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 Patient has been accepted at [facility]. 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 #4 coronary artery disease-this appears to be stable at this time #5 essential hypertension-patient will remain on his current medications #6 hyperlipidemia-patient is on atorvastatin Charges/Coding Visit Charges Inpatient E&M: 58062 Subs Hosp L2
[2022-03-15 17:06] LABS: Bedside Glucose 243 mg/dL (74-106)
--- NOTE | 2022-03-15 17:22 | NURSING ---
This RN explained to the patient that he was cleared to drive himself to the shelter at discharge, as long as he is off of narcotics for 24 hours. Pt stated, That's fine, I'll just take them when I get home. This RN educated pt that is was unsafe to drive while taking narcotics, pt stated I've been doing it for years. Pt also stated, I have shower boots at home, and I will probably take a quick shower before I go to the shelter. updated.
[2022-03-15] MEDS: Atorvastatin Calcium 80 MG Tablet PO (21:28)
[2022-03-15] MEDS: Acetaminophen 500 MG Tablet 1000 MG PO (21:29)
[2022-03-15] MEDS: Calcium Carbonate 500 MG Tablet PO (23:20)
[2022-03-16 00:35] LABS: Bedside Glucose 267 mg/dL (74-106)
[2022-03-16 03:02] VITALS: BP 126/66; PULSE 58; PULSE 59; RESP 16; TEMP 36.9; O2SAT 96
[2022-03-16 06:27] LABS: Anion Gap 6 (5-15); BUN 68 mg/dL (7-18); BUN/Creat Ratio 25.2 RATIO (10-20); Calcium,Total 8.5 mg/dL (8.5-10.1); Chloride 103 mmol/L (98-107); EST Glomerular Filtration Rate 25 mL/min (>60); Est Glom Filt Rate - Afr Amer 30 mL/min (>60); Glucose 237 mg/dL (74-106); Potassium 4.7 mmol/L (3.5-5.1); Sodium Level 136 mmol/L (136-145)
[2022-03-16] MEDS: Insulin Lispro 100 UNIT/ML INSULN.PEN SC ×2 (06:37→11:25)
[2022-03-16] MEDS: Ascorbic Acid 500 MG Tablet 1000 MG PO (06:38)
[2022-03-16] MEDS: 0.9% Saline Lock 10 ML Syringe IV (06:39)
[2022-03-16 07:01] LABS: Bedside Glucose 233 mg/dL (74-106)
[2022-03-16 08:56] VITALS: BP 116/66; PULSE 60; RESP 18; TEMP 36.7; O2SAT 96
[2022-03-16] MEDS: Gabapentin 600 MG Tablet PO ×2 (08:57→11:25)
[2022-03-16] MEDS: Acetaminophen 500 MG Tablet 1000 MG PO (08:57)
[2022-03-16] MEDS: Carvedilol 12.5 MG Tablet PO (09:00)
[2022-03-16] MEDS: Losartan Potassium 50 MG Tablet PO (09:00)
[2022-03-16] MEDS: amLODIPine 10 MG Tablet PO (09:01)
--- NOTE | 2022-03-16 09:38 | TREXTCAR_ITS ---
Diet Diet Order/Speech Therapy: 03/13/22 16:53 Diet: Regular - General -patient refuses calorie restricted diet Type of Dietary Supplement:: Corwin Is pt able to select menu?: Yes Routine Orders/Code Status Routine Lab Work: BMP (on 03/15/22) and - (Fingerstick blood sugars AC nightly, Humalog subcu per sliding scale: 200-250: 5 units, 251-300: 8 units, 301-350: 12 units, 351-400: 15 units) Code Status: Full Code Wound(s) LEFT HEEL: Wound Type: Apply wound VAC to left heel wound when it is available Dressing Change: Dakins moistened gauze Therapies Weight Bearing: Non weight bearing (Left foot) Physical Therapy: Eval and Treat Occupational Therapy: Eval and Treat Problem/Diagnosis (1) Osteomyelitis of foot, left, acute: Status: Acute Code(s): M86.172 - Other acute osteomyelitis, left ankle and foot Plan 1. 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 Patient has been accepted at [facility]. 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 #4 coronary artery disease-this appears to be stable at this time #5 essential hypertension-patient will remain on his current medications #6 hyperlipidemia-patient is on atorvastatin #7 noncompliance with diabetic regimen #8 stage IV chronic kidney disease-secondary to type 2 diabetes Allergies/Procedures Done in Hospital Allergies codeine Adverse Reaction (Verified 03/12/22 11:59) Nausea promethazine [From Phenergan] Adverse Reaction (Verified 03/12/22 11:59) Nausea Procedures: - (Partial calcanectomy left foot 03/14/2022) Type of Care/Length of Stay Estimated LOS: Convalescent Care Less Than 30 days Type of Care Needed: Skilled Rehab Potential: Good Prognosis: Good Additional Orders/Day of Discharge H&P will serve as current which was dated: 03/12/22 Day of Discharge: 03/16/22 Dietary and Speech Recommendations Dietitian Recommendations/Changes: would benefit from CHO controlled diet if pt is agreeable. Corwin BID for wounds. Discharge Plan Admission Admit Date/Time: 03/12/22 17:49 Primary Reason for Your Visit: Left heel osteomyelitis Attending Provider: Ciaran Sarah Primary Care Provider: Emmett Rosario Consulting Providers: Piter Kirkpatrick ; Walt Raphael ; David Azar Instructions Additional Instructions / Restrictions: Patient needs follow-up appointment at the wound care center next week at [facility] Discharge Orders/Prescriptions Prescriptions: New Zosyn in dextrose (iso-osm) 3.375 gram/50 mL piggyback 3.375 g IV Q12H 41 Days Qty: 4612.5 0RF Rx Instructions: stop date 04/25/22 dx: foot osteo weekly bmp, cbc, and esr. Fax to [phone] routine picc care per protocol insulin glargine-yfgn 100 unit/mL (3 mL) Insulin Pen 45 unit subcut QHS Qty: 0 0RF acetaminophen 500 mg Tablet 1,000 mg PO Q8H PRN PRN (Reason: Pain 1-10 Or Fever) Qty: 0 0RF oxycodone 5 mg Tablet 10 mg PO TID PRN (Reason: Pain 1-10) 3 Days Qty: 12 0RF calcium carbonate 200 mg calcium (500 mg) Tablet,Chewable 500 mg PO Q4H PRN PRN (Reason: HEARTBURN) Qty: 0 0RF gabapentin 600 mg Tablet 600 mg PO TIDCM Qty: 0 0RF melatonin 3 mg Tablet 3 mg PO QHS PRN PRN (Reason: Insomnia) Qty: 0 0RF morphine 15 mg Tablet Extended Release 30 mg PO BID 5 Days Qty: 20 0RF insulin lispro [Humalog KwikPen Insulin] 100 unit/mL insulin pen 7 unit subcut TID Qty: 15 0RF Rx Instructions: with meals bisacodyl [Dulcolax (bisacodyl)] 5 mg tablet,delayed release (DR/EC) 10 mg PO QHS 2 Days Qty: 4 0RF Continued amlodipine 10 mg tablet 10 mg PO DAILY atorvastatin 80 MG tablet 80 mg PO QHS ascorbic acid (vitamin C) 1,000 MG tablet 1,000 mg PO TID aspirin 81 MG tablet,chewable 81 mg PO DAILY@0800 carvedilol 12.5 MG tablet 12.5 mg PO BID cholecalciferol (vitamin D3) 125 mcg (5,000 unit) Capsule 125 mcg PO DAILY zinc sulfate 50 mg zinc (220 mg) capsule 220 mg PO DAILY losartan 50 mg tablet 50 tab PO DAILY Label Comments: Take 1 tablet by mouth once daily. Discontinued oxycodone-acetaminophen [Percocet] 10-325 mg tablet 1 tab PO TID PRN (Reason: Pain) insulin lispro 100 unit/mL Insulin Pen See Protocol subcut TIDCM Protocol: 5. Sliding Scale Insulin High Dosing Condition: 150-209 mg/dl = 3 units Condition: 210-259 mg/dl = 6 units Condition: 260-324 mg/dl = 9 units Condition: 325-374 mg/dl = 12 units Condition: 375-409 mg/dl = 14 units Condition: 410-449 mg/dl = 16 units Condition: Greater than 449 call physician Protocol Text: - Use for Total Daily Dose of Insulin 81-120 units - Very insulin resistant or septic patients HIGH DOSING ALGORITHM gabapentin 800 mg tablet 800 mg PO TID insulin glargine [Lantus Solostar U-100 Insulin] 100 unit/mL (3 mL) insulin pen 40 units subcut QHS glipizide 10 mg tablet extended release 24hr 1 tab PO DAILY Label Comments: TAKE 1 TABLET TWICE DAILY magnesium 500 mg Tablet 500 mg PO DAILY vitamin B complex Capsule 1 cap PO DAILY Referrals / Follow Up: August Espinal DPM [Med Staff - Active Staff] - See Referral Note (At wound care center at [facility] next Friday) Emmett Rosario MD [Primary Care Provider] - [facility] Doctor,Out of [Non-Staff] - Disposition Disposition (needs filled in before D/C Order can be placed): [facility]
--- NOTE | 2022-03-16 10:11 | DS.PCM_ITS ---
Providers Date of Admission: 03/12/22 Date of Discharge: 03/16/22 Primary Care Physician: Dr. Emmett Rosario MD Consultations 03/12/22 18:51 Consult: Infectious Disease Routine Consulting Provider: Walt Raphael Reason for Consult: left calcaneal osteo EMERGENT Consult: No Notified: Yes Date Notified: 03/13/22 Time Notified: 07:44 Method of Notification: Text Consult: Podiatry Routine Consulting Provider: David Azar Reason for Consult: Left heel ulcer with osteo EMERGENT Consult: No Notified: Yes Date Notified: 03/12/22 Time Notified: 17:53 Method of Notification: ED Physician Initiated 03/13/22 07:22 Consult: Onc/Wound/broker associate Routine Comment: Osteomyelitis left heel Reason For Visit: OSTEO LEFT HEEL Diagnosis Discharge Diagnosis (1) Osteomyelitis of foot, left, acute: Status: Acute Code(s): M86.172 - Other acute osteomyelitis, left ankle and foot Plan 1. 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 Patient has been accepted at [facility]. 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 #4 coronary artery disease-this appears to be stable at this time #5 essential hypertension-patient will remain on his current medications #6 hyperlipidemia-patient is on atorvastatin #7 noncompliance with diabetic regimen #8 stage IV chronic kidney disease-secondary to type 2 diabetes Medications at Discharge Home Medications ascorbic acid (vitamin C) 1,000 mg tablet 1,000 mg PO TID vitamin 07/11/20 aspirin 81 mg chewable tablet 81 mg PO DAILY@0800 heart health 07/11/20 atorvastatin 80 mg tablet 80 mg PO QHS cholesterol 07/11/20 carvedilol 12.5 mg tablet 12.5 mg PO BID blood pressure 08/17/20 cholecalciferol (vitamin D3) 125 mcg (5,000 unit) capsule 125 mcg PO DAILY Supplement 05/28/21 zinc sulfate 50 mg zinc (220 mg) capsule 220 mg PO DAILY supplement 06/29/21 losartan 50 mg tablet 50 tab PO DAILY 11/05/21 amlodipine 10 mg tablet 10 mg PO DAILY 11/23/21 piperacillin-tazobactam 3.375 gram/50 mL dextrose(iso-os) IV piggyback (Zosyn) 3.375 g (56.25 mL) IV Q12H 41 days #4,612.5 mL 03/15/22 acetaminophen 500 mg tablet 1,000 mg PO Q8H PRN PRN Pain 1-10 Or Fever #0 tabs 03/16/22 bisacodyl 5 mg tablet,delayed release (Dulcolax (bisacodyl)) 10 mg PO QHS 2 days #4 tabs 03/16/22 calcium carbonate 200 mg calcium (500 mg) chewable tablet 500 mg PO Q4H PRN PRN HEARTBURN #0 tabs 03/16/22 gabapentin 600 mg tablet 600 mg PO TIDCM #0 tabs 03/16/22 insulin glargine-yfgn 100 unit/mL (3 mL) subcutaneous pen 45 unit (0.45 mL) subcut QHS #0 mL 03/16/22 insulin lispro 100 unit/mL subcutaneous pen (Humalog KwikPen (U-100) Insulin) 7 unit (0.07 mL) subcut TID #15 mL 03/16/22 melatonin 3 mg tablet 3 mg PO QHS PRN PRN Insomnia #0 tabs 03/16/22 morphine 15 mg tablet,extended release 30 mg PO BID 5 days #20 tabs 03/16/22 oxycodone 5 mg tablet 10 mg PO TID PRN Pain 1-10 3 days #12 tabs 03/16/22 Hospital Course Operations - (Partial calcanectomy of the left foot) Procedures None Summary of Care Provided Minutes Spent on Discharge: 32 Hospital Course: This 66-year-old white male was seen in the emergency room at [facility] with complaints regarding a chronic ulceration of his left heel, patient is a type II diabetic and has diabetic neuropathy. Examination of the patient revealed a large left heel wound, patient's white blood cell count was elevated at 11.7, creatinine was elevated at 2.32 and blood sugar was 151. Michelle ent was admitted to PCU, he was seen in consultation by podiatry, he was also seen in consultation by infectious diseases. Patient was taken to surgery by podiatry and he underwent a partial calcanectomy of the left foot. During his hospitalization, patient refused to partake in a diabetic diet and requested a regular diet, he did allow his blood sugars to be checked however. Patient was seen by PT and OT. It was felt that the patient would benefit from short-term placement in a [place] [facility] [place] for skilled services and arrangements were made for [place] to go [place] a [place] [facility] [place]. Patient requested that he be able to drive home to get his close and then he would be driven to the nursing facility by his daughter. I consented to this and so did podiatry. Patient had a PICC line inserted for IV antibiotic usage in the [place] [facility] [place]. On 03/16/2022, patient was seen and examined:alert, oriented x3, no apparent distress and healthy appearing General Appearance: cooperative, well kempt and well developed Orientation / Consciousness: awake, oriented to person, oriented to place and oriented to time HEENT normocephalic and moist oral mucous membranes Eyes PERRL, EOMs intact bilaterally and conjunctivae normal Neck supple, no JVD, thyroid normal and no carotid bruits General: trachea midline Resp normal respiratory effort and clear to auscultation bilaterally Auscultation: Negative for rales, rhonchi or wheezes Cardio regular rate, regular rhythm, no murmurs, no rub and no gallops GI normal to inspection, nondistended, normoactive bowel sounds, soft to palpation, non-tender and non-distended Extremity Patient's left foot is wrapped in surgical dressing, this was not removed for examination Skin Skin Narrative: Patient's left lower extremity is wrapped with surgical dressing and this was not removed for examination of the area Neuro oriented x3, CN's II-XII intact bilaterally, no focal motor deficits and no sensory deficits noted Sensorium / Orientation: awake and alert Speech: speech normal Psych affect normal Patient was [place] a [place] [facility] [place] on 03/16/2022 in stable co ndition. Weight / BMI Weight Weight: 111.6 kg Body Mass Index (BMI) 30.7 ABG / Lab / Microbiology Data Result Diagrams: 03/13/22 06:21 03/16/22 05:00 Laboratory: Laboratory Results - last 24 hr 03/14/22 21:57: Glucose 348 H 03/15/22 09:40: Random Vancomycin 18.7 H 03/15/22 09:40: Creatinine 2.75 H, Estim Creat Clear Calc 30.73, Est GFR (MDRD) Af Amer 30 L, Est GFR (MDRD) Non-Af 25 L 03/15/22 11:08: POC Glucose 360 H 03/15/22 16:42: POC Glucose 243 H 03/15/22 21:16: POC Glucose 267 H 03/16/22 05:00: Sodium 136, Potassium 4.7, Chloride 103, Carbon Dioxide 27.0, Anion Gap 6, BUN 68 H, Creatinine 2.70 H, Estim Creat Clear Calc 31.30, Est GFR (MDRD) Af Amer 30 L, Est GFR (MDRD) Non-Af 25 L, BUN/Creatinine Ratio 25.2 H, Glucose 237 H, Calcium 8.5 03/16/22 06:36: POC Glucose 233 H Microbiology: Microbiology 03/14/22 16:42 Wound - Aerobic Swab Gram Stain - Final 03/14/22 16:42 Wound - Aerobic Swab Wound Culture - Preliminary GNR lactose educational institution president GNR Poss Pseudomonas sp 03/14/22 16:44 Tissue - Aerobic & Anaerobic Swabs Gram Stain - Final 03/14/22 16:44 Tissue - Aerobic & Anaerobic Swabs Wound Culture - Preliminary GNR Poss Pseudomonas sp 03/14/22 16:39 Bone - Left Foot Gram Stain - Final 03/14/22 16:39 Bone - Left Foot Wound Culture - Preliminary Klebsiella pneumoniae sp pneum Gram negative baljit 03/12/22 13:12 Blood Culture (Wb) - Anticubital Left Blood Culture - Preliminary No growth in 48 hours. 03/12/22 12:49 Blood Culture (Wb) - Anticubital Right Blood Culture - Preliminary No growth in 48 hours. Meaningful Use Info Meaningful Use Diagnoses (Choose all that apply): None applicable Discharge Plan Admission Admit Date/Time: 03/12/22 17:49 Primary Reason for Your Visit: Left heel osteomyelitis Attending Provider: Ciaran Sarah Primary Care Provider: Emmett Rosario Consulting Providers: Piter Kirkpatrick ; Walt Raphael ; David Azar Instructions Additional Instructions / Restrictions: Patient needs follow-up appointment at the wound care center next week at [facility] Discharge Orders/Prescriptions Prescriptions: New Zosyn in dextrose (iso-osm) 3.375 gram/50 mL piggyback 3.375 g IV Q12H 41 Days Qty: 4612.5 0RF Rx Instructions: stop date 04/25/22 dx: foot osteo weekly bmp, cbc, and esr. Fax to [phone] routine picc care per protocol insulin glargine-yfgn 100 unit/mL (3 mL) Insulin Pen 45 unit subcut QHS Qty: 0 0RF acetaminophen 500 mg Tablet 1,000 mg PO Q8H PRN PRN (Reason: Pain 1-10 Or Fever) Qty: 0 0RF oxycodone 5 mg Tablet 10 mg PO TID PRN (Reason: Pain 1-10) 3 Days Qty: 12 0RF calcium carbonate 200 mg calcium (500 mg) Tablet,Chewable 500 mg PO Q4H PRN PRN (Reason: HEARTBURN) Qty: 0 0RF gabapentin 600 mg Tablet 600 mg PO TIDCM Qty: 0 0RF melatonin 3 mg Tablet 3 mg PO QHS PRN PRN (Reason: Insomnia) Qty: 0 0RF morphine 15 mg Tablet Extended Release 30 mg PO BID 5 Days Qty: 20 0RF insulin lispro [Humalog KwikPen Insulin] 100 unit/mL insulin pen 7 unit subcut TID Qty: 15 0RF Rx Instructions: with meals bisacodyl [Dulcolax (bisacodyl)] 5 mg tablet,delayed release (DR/EC) 10 mg PO QHS 2 Days Qty: 4 0RF Continued amlodipine 10 mg tablet 10 mg PO DAILY atorvastatin 80 MG tablet 80 mg PO QHS ascorbic acid (vitamin C) 1,000 MG tablet 1,000 mg PO TID aspirin 81 MG tablet,chewable 81 mg PO DAILY@0800 carvedilol 12.5 MG tablet 12.5 mg PO BID cholecalciferol (vitamin D3) 125 mcg (5,000 unit) Capsule 125 mcg PO DAILY zinc sulfate 50 mg zinc (220 mg) capsule 220 mg PO DAILY losartan 50 mg tablet 50 tab PO DAILY Label Comments: Take 1 tablet by mouth once daily. Discontinued oxycodone-acetaminophen [Percocet] 10-325 mg tablet 1 tab PO TID PRN (Reason: Pain) insulin lispro 100 unit/mL Insulin Pen See Protocol subcut TIDCM Protocol: 5. Sliding Scale Insulin High Dosing Condition: 150-209 mg/dl = 3 units Condition: 210-259 mg/dl = 6 units Condition: 260-324 mg/dl = 9 units Condition: 325-374 mg/dl = 12 units Condition: 375-409 mg/dl = 14 units Condition: 410-449 mg/dl = 16 units Condition: Greater than 449 call physician Protocol Text: - Use for Total Daily Dose of Insulin 81-120 units - Very insulin resistant or septic patients HIGH DOSING ALGORITHM gabapentin 800 mg tablet 800 mg PO TID insulin glargine [Lantus Solostar U-100 Insulin] 100 unit/mL (3 mL) insulin pen 40 units subcut QHS glipizide 10 mg tablet extended release 24hr 1 tab PO DAILY Label Comments: TAKE 1 TABLET TWICE DAILY magnesium 500 mg Tablet 500 mg PO DAILY vitamin B complex Capsule 1 cap PO DAILY Referrals / Follow Up: August Espinal DPM [Med Staff - Active Staff] - See Referral Note (At wound care center at [facility] next Friday) Emmett Rosario MD [Primary Care Provider] - [facility] Doctor,Out of [Non-Staff] - Disposition Disposition (needs filled in before D/C Order can be placed): Detention Facility Charges/Coding Visit Charges Inpatient E&M: 60067 Disch Hosp
--- NOTE | 2022-03-16 10:12 | PCM.PROGNOTE ---
Subjective Subjective 66-year-old male seen postop day 2 status post left partial calcanectomy. Patient notes pain is controlled at this time. Patient denies any fever, chills, nausea, vomiting, chest pain, calf pain, shortness of breath. Patient is passing gas and voiding urine. Patient notes that he will be compliant with nonweightbearing restrictions as this would cause significant delays in wound healing and limb salvage. Objective Data Objective Data Vital Signs: Vital Signs Temp Pulse Resp BP Pulse Ox O2 Del Method O2 Flow Rate 98.0 F 60 18 116/66 96 Room Air 1 03/16/22 08:56 03/16/22 08:56 03/16/22 08:56 03/16/22 08:56 03/16/22 08:56 03/16/22 08:56 03/15/22 09:10 Oxygen Flow Rate (L/min) 1 Oxygen Delivery Method Room Air Weight: 111.6 kg Body Mass Index (BMI) 30.7 Intake & Output: Intake and Output for Last 24 Hours 03/14/22 03/15/22 03/16/22 23:59 23:59 23:59 Intake Total 700 / 700 1580 / 1580 50 / 50 Output Total 450 / 450 400 / 400 350 / 350 Balance 250 / 250 1180 / 1180 -300 / -300 Lab / Micro Data Result Diagrams: 03/13/22 06:21 03/16/22 05:00 Labs: Laboratory Results - last 24 hr 03/14/22 21:57: Glucose 348 H 03/15/22 09:40: Random Vancomycin 18.7 H 03/15/22 09:40: Creatinine 2.75 H, Estim Creat Clear Calc 30.73, Est GFR (MDRD) Af Amer 30 L, Est GFR (MDRD) Non-Af 25 L 03/15/22 11:08: POC Glucose 360 H 03/15/22 16:42: POC Glucose 243 H 03/15/22 21:16: POC Glucose 267 H 03/16/22 05:00: Sodium 136, Potassium 4.7, Chloride 103, Carbon Dioxide 27.0, Anion Gap 6, BUN 68 H, Creatinine 2.70 H, Estim Creat Clear Calc 31.30, Est GFR (MDRD) Af Amer 30 L, Est GFR (MDRD) Non-Af 25 L, BUN/Creatinine Ratio 25.2 H, Glucose 237 H, Calcium 8.5 03/16/22 06:36: POC Glucose 233 H Micro: Microbiology 03/14/22 16:42 Wound - Aerobic Swab Gram Stain - Final 03/14/22 16:42 Wound - Aerobic Swab Wound Culture - 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 03/12/22 12:49 Blood Culture (Wb) - Anticubital Right Blood Culture - Preliminary No growth in 48 hours. Physical Exam Narrative Vascular: Dorsalis pedis posterior tibial pulse palpable 2 out of 4. Diffuse edema to left lower extremity. 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 Neurologic: Light touch protective sensation absent to bilateral feet. Dermatologic: Lateral extensile incision noted to the lateral left foot this is well approximated with intact live. Plantar heel wound demonstrates mild sanguinous drainage at current with exposed residual calcaneus. No rachell purulence. Resolved edema and erythema. No other signs of infection. Musculoskeletal: No gross musculoskeletal deformity contributing to wound formation. Left muscular strength full to right lower extremity diminished to left lower extremity. No pain with calf squeeze or palpation of popliteal fossa. Const alert and oriented x3 Assessment & Plan Assessment/Plan (1) Osteomyelitis of foot, left, acute: (2) Non-pressure chronic ulcer of other part of left foot with fat layer exposed: PLAN: Patient examined evaluated, all findings cussed with patient detail Patient 2 day postop from left partial calcanectomy. Restart DVT prophylaxis. Infectious disease; Patient to receive 6 weeks of IV Zosyn via PICC line. Patient will discharge to senior care facility today and maintaining a nonweightbearing status until wound closure. We are planning for a wound VAC which will be applied sometime next week at the nursing facility. Patient will follow up with me in the wound care center on Friday of next week at which time we will continue local wound care and limb salvage. Edema and erythema resolved to left lower extremity incision to the lateral ankle intact and well approximated with intact live. Plantar heel wound noted to be stable at this time with resolving bleeding redressed with saline wet-to-dry DSD and well-padded Boles compression dressing.
--- NOTE | 2022-03-16 10:18 | NURSING ---
I left a vm with WVM to let them know of the PT's d/c.
[2022-03-16] MEDS: Bisacodyl 5 MG Tablet 10 MG PO (10:27)
--- NOTE | 2022-03-16 11:02 | CASEMGMT ---
Social Work Pt is ready for discharge today. As per physician, pt wants to drive himself home to get clothing and then go to the senior living from there. Physician states he is okay with this as is the encoding clerk. SW called [facility], spoke w/nurse Monserrat, she states this is fine. It is this SW's understanding pt will drive himself home then to the senior living. Tia states this is okay, we discussed pt calling into the senior living when he gets there so someone can meet him at the car with a wheelchair, Monserrat in agreement with this plan. SW spoke w/pt in room. SW let pt know that [facility] is okay w/pt going home to get clothing and then going to the senior living. Pt states his daughter will then drive him to the senior living. KARLI completed the hospital exemption in the [employer] system, scanned it into [employer] and sent it to [facility] via [facility] [employer]. Staff to follow green sheet to complete the discharge. EVELYN Noble
--- NOTE | 2022-03-16 11:49 | NURSING ---
This RN called and gave report to LU German at [facility].
[2022-03-16 12:00] LABS: Bedside Glucose 279 mg/dL (74-106)
== END 2022-03-16 14:32 | disposition skilled nursing facility (03) | DRG 628 ==
LOC: ED 14:51 → PCU 17:00
PROVIDERS: Podiatrist; Admitting Provider Family Medicine; Emergency Provider Emergency Medicine; PCP Internal Medicine; Visit Provider Internal Medicine
PROC: 0QBM0ZZ Excision of Left Tarsal, Open Approach (ICD-10-PCS; principal; 2022-03-14 14:30)
DX: E11.621 Type 2 diabetes mellitus with foot ulcer (principal); L89.623 Pressure ulcer of left heel, stage 3; L97.422 Non-pressure chronic ulcer of left heel and midfoot with fat layer exposed; M86.172 Other acute osteomyelitis, left ankle and foot; E11.22 Type 2 diabetes mellitus with diabetic chronic kidney disease; E11.42 Type 2 diabetes mellitus with diabetic polyneuropathy; B96.5 Pseudomonas (aeruginosa) (mallei) (pseudomallei) as the cause of diseases classified elsewhere; J44.9 Chronic obstructive pulmonary disease, unspecified; N18.32 Chronic kidney disease, stage 3b; Z79.4 Long term (current) use of insulin; M77.9 Enthesopathy, unspecified; E78.5 Hyperlipidemia, unspecified; I12.9 Hypertensive chronic kidney disease with stage 1 through stage 4 chronic kidney disease, or unspecified chronic kidney disease; I25.10 Atherosclerotic heart disease of native coronary artery without angina pectoris; M79.89 Other specified soft tissue disorders; Z82.3 Family history of stroke; Z79.82 Long term (current) use of aspirin; Z87.891 Personal history of nicotine dependence; R60.0 Localized edema; Z79.01 Long term (current) use of anticoagulants; Z86.718 Personal history of other venous thrombosis and embolism
CPT/HCPCS: 36415; 36569; 73620; 73630; 73718; 76000; 80048; 80202; 82565; 82947; 82962; 83036; 85025; 87015; 87040; 87070; 87075; 87077; 87102; 87116; 87184; 87186; 87205; 87206; 87426; 88305; 88311; 93971; 97162; 97166; 97605; 97802; 99183; 99213; 99285; 99406; J7030; J7040; A4216; G0277; G0463; J0696; J2405

== ENCOUNTER → 2022-04-08 | Outpatient (REF) | payer MEDICARE, BC, SELFPAY ==
[2022-04-08 08:21] LABS: Anion Gap 6 (5-15); BUN 39 mg/dL (7-18); BUN/Creat Ratio 17.8 RATIO (10-20); Calcium,Total 8.4 mg/dL (8.5-10.1); Chloride 104 mmol/L (98-107); Creatinine, Serum 2.19 mg/dL (0.70-1.30); EST Glomerular Filtration Rate 32 mL/min (>60); Est Glom Filt Rate - Afr Amer 39 mL/min (>60); Glucose 190 mg/dL (74-106); Potassium 3.9 mmol/L (3.5-5.1); Sodium Level 139 mmol/L (136-145)
[2022-04-08 08:25] LABS: Absolute Lymphocyte Count 2.83 X10^3/uL (0.83-4.51); Absolute Neutrophil Count 3.6 X10^3/uL (2.0-7.7); Basophil# 0.09 X10^3/uL; Eosinophil# 1.38 X10^3/uL; Eosinophils% 15.5 % (0-5); Hematocrit 42.1 % (40-54); Hemoglobin 13.5 g/dL (13.0-16.5); Lymphocyte # 2.83 X10^3/ul (0.83-4.51); Lymphocyte % 31.9 % (19-41); Mean Corp Hgb Conc 32.1 g/dL (32-36); Mean Corpuscular Hgb 28.2 pg (27.0-32.0); Mean Corpuscular Volume 88.1 fL (80-94); Mean Platelet Vol. 10.9 fl (6.2-12.0); Monocyte# 0.91 X10^3/uL; Monocyte% 10.2 % (0-10); NRBC Flagged by Analyzer 0 % (0-5); Neutrophil # 3.64 X10^3/uL (2.7-7.7); Neutrophil % 41.1 % (47-70); Platelet Count 174 K/mm3 (150-450); RBC Distribution Width CV 16.1 % (11.6-14.6); RBC Distribution Width SD 52.7 fl (35.1-43.9); Red Blood Count 4.78 M/mm3 (4.6-6.2); White Blood Count 8.9 K/mm3 (4.4-11.0)
[2022-04-08 08:46] LABS: Erythrocyte Sedimentation Rate 27 mm/hr (0-20)
== END ==
LOC: OLS.SW 05:00
PROVIDERS: PCP Internal Medicine; Visit Provider Internal Medicine
DX: M86.9 Osteomyelitis, unspecified (principal)
CPT/HCPCS: 36415; 80048; 85025; 85652

== ENCOUNTER 2022-04-16 09:15 | Outpatient (RCR) | payer MEDICARE, BC, SELFPAY ==
[2022-03-19 00:24] VITALS: BP 139/60; PULSE 61; RESP 18; TEMP 36.2; BMI 33.7
[2022-03-19 08:52] VITALS: BP 101/49; PULSE 67; RESP 18; TEMP 36.1; BMI 33.7
--- NOTE | 2022-03-19 09:09 | PN.PCM_ITS ---
History of Present Illness Date of Service: 03/19/22 Chief Complaint: Osteomyelitis and chronic delayed healing ulcer, left foot History of Wound: Patient presents today day 5 postop from a left partial calcanectomy. Patient denies constitutional symptoms. Patient's pain is well controlled at this time. Patient is maintaining a nonweightbearing status in a residential facility receiving IV Zosyn via PICC line. Patient had MRI findings suggestive of osteomyelitis diffusely involving the calcaneus cultures demonstrated growth of Klebsiella pneumonia and Pseudomonas aeruginosa sensitive to Zosyn. Infectious disease following the patient as well. No other complaints at this time. Objective Data Objective Data Vital Signs: Vital Signs Temp Pulse Resp BP O2 Del Method 97.0 F L 67 18 101/49 L Room Air 03/19/22 08:52 03/19/22 08:52 03/19/22 08:52 03/19/22 08:52 03/19/22 08:52 Oxygen Delivery Method Room Air Body Mass Index (BMI) 33.7 Physical Exam Narrative Neurovascular status unchanged from previous evaluation. Lateral skin incision appears to be well approximated with intact live. Some maceration to the periincisional area. Full-thickness wound down to calcaneal bone resection site noted to the plantar heel. This demonstrates mild serosanguineous drainage. Mild maceration to the periwound area. No acute signs of infection. Musculoskeletal no pain with calf squeeze or palpation popliteal fossa. No evidence of DVT on exam. Muscular strength full to bilateral lower extremity compartments. 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 ) Arrival Mode Wheelchair Transfer Assistance None Accompanied by self Patient Identification Verified (Name & Yes ) Patient Requires Transmission-Based No Precautions Safety Precautions Fall Prevention Finger Stick Blood Sugar(mg/dl) (if 149 indicated): Blood Sugar Stated by Patient Height and Weight Body Mass Index (BMI) 33.7 BMI Classification Obese Vital Signs Temperature (97.8 F-99.1 F) 97.0 F L Temperature Source Temporal Pulse Rate (60-100) 67 Pulse Location Monitor Respiratory Rate (12-18) 18 Respiratory rate source Observation Oxygen Delivery Method Room Air Blood Pressure (90/60-120/80) 101/49 L Blood Pressure Mean (mm Hg) 66 Source Monitor Position Sitting Blood Pressure Location Left Arm History Since Last Visit- (Skip if this is Patient's initial visit) Have you changed medications since your No last visit? Any new allergies or adverse reactions No Had a fall/change in ADL's that may No increase risk of falls Signs or symptoms of abuse and/or No neglect since last visit Have you been in the hospital since your No last visit? Has dressing in place as prescribed Yes Has compression in place as prescribed Yes Experienced any changes in pain level or No management Left Footwear Regular Shoe Right Footwear No Footwear Pain Scale: 0-10 Numeric Is Patient Pain Free? Yes WC - Nurse 1 - General Ulcer Measurement Start: 03/19/22 08:52 Freq: Status: Active Protocol: Activity Type Activity Date Activity User E-sign Co-sign Detail Recorded Client Recorded Date Recorded By Document 03/19/22 08:52 MW [id number] 03/19/22 09:00 MW 03/19/22 08:52 Wound Center Nurse 1 #5 left lateral heal incision -Combined with other wound No -Current Size (cm) - Length 0.1 -Current Size (cm) - Width 0.1 -Current Size (cm) - Depth 0.1 -Total Square Cm 0.01 -Date of Last Picture (Recall this 03/19/22 field) -Photo Taken Yes -Texture (Margaret-wound Skin Appearance) Assessed, Localized Edema -Moisture (Margaret-wound Skin Appearance) Assessed, Weeping -Color (Margaret-wound Skin Appearance) No Abnormality, Assessed -Temperature (Margaret-wound Skin No Abnormality Appearance) (Pt Warm) -Tenderness on Palpation (Margaret-wound No Skin Appearance) -Ulcer Cleansing Soap and Water -Foul Odor after Cleansing No #1 left heel cluster -Combined with other wound No -Current Size (cm) - Length 3.0 -Current Size (cm) - Width 2.4 -Current Size (cm) - Depth 2.1 -Total Square Cm 7.20 -Date of Last Picture (Recall this 03/19/22 field) -Photo Taken Yes -Epithelialization None Present -Tunneling No -Undermining/Tunneling No -Circular Undermining No -Exudate Amt Large -Exudate Type Serosanguineous -Wound Margin Distinct, Outline Attached -Granulation Amt Large (67-100%) -Granulation Quality Red -Slough/Fibrin Yes -Necrosis Amt Small (1-33%) -Necrotic Tissue Type Adherent Slough -Structure Exposed N/A -Texture (Margaret-wound Skin Appearance) Assessed, Localized Edema -Moisture (Margaret-wound Skin Appearance) Assessed, Maceration -Color (Margaret-wound Skin Appearance) No Abnormality, Assessed -Temperature (Margaret-wound Skin No Abnormality Appearance) (Pt Warm) -Tenderness on Palpation (Margaret-wound No Skin Appearance) -Ulcer Cleansing Soap and Water -Foul Odor after Cleansing No -Anesthetic Used 5% Lidocaine Gel Lower Limb Edema Present Yes Left Calf (cm) 41.5 Left Ankle (cm) 26.0 WC - Nurse 2 - General Ulcer CM Notes Start: 03/19/22 08:52 Freq: Status: Active Protocol: Activity Type Activity Date Activity User E-sign Co-sign Detail Recorded Client Recorded Date Recorded By Document 03/19/22 09:07 DANIEL [id number] 03/19/22 09:08 DANIEL 03/19/22 09:07 Wound Center Nurse 2 #5 left lateral heal incision -Correct Patient No -Correct Side, Site, Position No -Correct Procedure No -Procedure Performed No -Wound/Ulcer Outcome Not Healed #1 left heel cluster -Correct Patient No -Correct Side, Site, Position No -Correct Procedure No -Procedure Performed No -Wound/Ulcer Outcome Not Healed Pain Scale: 0-10 Numeric Is Patient Pain Free? Yes Assessment/Plan Assessment/Plan (1) Non-pressure chronic ulcer of other part of left foot with necrosis of bone: CODE(S): L97.524 - Non-pressure chronic ulcer of other part of left foot with necrosis of bone PLAN: Patient examined evaluated, all fine discussed with patient in detail. Patient underwent partial calcanectomy due to diffuse osteomyelitis of his left calcaneus confirmed on MRI and pathology. Patient is high risk for proximal amputation and understands this. If there are any signs of wound worsening to his left wound will likely proceed with below- knee amputation but at this time patient appears to be progressing well. Patient is residing in a residential facility maintaining a nonweightbearing status with use of a wound VAC to his left lower extremity. Patient is to be nonweightbearing until his wound heals and is receiving IV Zosyn for a Klebsiella pneumonia and Pseudomonas aeruginosa infection per infectious disease. Today's wound site was examined, no debridement performed. Will continue nonweightbearing and wound VAC to left lower extremity. Patient will follow up in 1 week at which time we will continue to evaluate and will consider advanced wound care therapy. At this time his blood sugar is well controlled confirmed by hemoglobin A1c of 6.7. We will consider consider additional nutritional supplementation. (2) Osteomyelitis of foot, left, acute: CODE(S): M86.172 - Other acute osteomyelitis, left ankle and foot
[2022-03-26 10:59] VITALS: BP 114/62; PULSE 66; RESP 18; TEMP 36.1; BMI 33.7
--- NOTE | 2022-03-26 11:36 | PCM.WC.PN ---
History of Present Illness Date of Service: 03/26/22 Chief Complaint: Osteomyelitis and chronic delayed healing ulcer, left foot History of Wound: Patient presents today day 5 postop from a left partial calcanectomy. Patient denies constitutional symptoms. Patient's pain is well controlled at this time. Patient is maintaining a nonweightbearing status in a snf facility receiving IV Zosyn via PICC line. Patient had MRI findings suggestive of osteomyelitis diffusely involving the calcaneus cultures demonstrated growth of Klebsiella pneumonia and Pseudomonas aeruginosa sensitive to Zosyn. Infectious disease following the patient as well. No other complaints at this time. Subjective Subjective 66-year-old male seen postop 2 weeks status post left partial calcanectomy. Patient notes pain is controlled at this time. Patient denies any fever, chills, nausea, vomiting, chest pain, calf pain, shortness of breath. Patient is passing gas and voiding urine. Patient notes that he will be compliant with nonweightbearing restrictions as this would cause significant delays in wound healing and limb salvage. Objective Data Objective Data Vital Signs: Vital Signs Temp Pulse Resp BP O2 Del Method 97 F L 66 18 114/62 Room Air 03/26/22 10:59 03/26/22 10:59 03/26/22 10:59 03/26/22 10:59 03/26/22 10:59 Oxygen Delivery Method Room Air Body Mass Index (BMI) 33.7 Physical Exam Narrative Neurovascular status unchanged from previous evaluation. Lateral skin incision appears to be well approximated with intact live. Some maceration to the periincisional area. Full-thickness wound down to calcaneal bone resection site noted to the plantar heel. This demonstrates mild serosanguineous drainage. Mild maceration to the periwound area. No acute signs of infection. Musculoskeletal no pain with calf squeeze or palpation popliteal fossa. No evidence of DVT on exam. Muscular strength full to bilateral lower extremity compartments. 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 ) Arrival Mode Wheelchair Ambulatory, Wheelchair Transfer Assistance None Accompanied by self Patient Identification Verified (Name & Yes Yes ) Patient Requires Transmission-Based No Precautions Safety Precautions Fall Prevention Fall Prevention Finger Stick Blood Sugar(mg/dl) (if 149 indicated): Blood Sugar Stated by Patient Height and Weight Body Mass Index (BMI) 33.7 33.7 BMI Classification Obese Obese Vital Signs Temperature (97.8 F-99.1 F) 97.0 F L 97 F L Temperature Source Temporal Temporal Pulse Rate (60-100) 67 66 Pulse Location Monitor Monitor Respiratory Rate (12-18) 18 18 Respiratory rate source Observation Observation Oxygen Delivery Method Room Air Room Air Blood Pressure (90/60-120/80) 101/49 L 114/62 Blood Pressure Mean (mm Hg) 66 79 Source Monitor Monitor Position Sitting Sitting Blood Pressure Location Left Arm Left Arm History Since Last Visit- (Skip if this is Patient's initial visit) Have you changed medications since your No last visit? Any new allergies or adverse reactions No Had a fall/change in ADL's that may No increase risk of falls Signs or symptoms of abuse and/or No neglect since last visit Have you been in the hospital since your No last visit? Has dressing in place as prescribed Yes Yes Has compression in place as prescribed Yes Yes Has offloadiing in place as prescribed Yes Experienced any changes in pain level or No Yes management Left Footwear Regular Shoe Other Footwear (Comment) Right Footwear No Footwear Regular Shoe Pain Scale: 0-10 Numeric Is Patient Pain Free? Yes Yes - Nurse 1 - General Ulcer Measurement Start: 03/19/22 08:52 Freq: Status: Active Protocol: Activity Type Activity Date Activity User E-sign Co-sign Detail Recorded Client Recorded Date Recorded By Document 03/19/22 08:52 [id number] 03/19/22 09:00 Document 03/26/22 10:59 MT [id number] 03/26/22 11:08 MT 03/19/22 03/26/22 08:52 10:59 Wound Center Nurse 1 #5 left lateral heal incision -Combined with other wound No -Current Size (cm) - Length 0.1 0.1 -Current Size (cm) - Width 0.1 0.1 -Current Size (cm) - Depth 0.1 0.1 -Total Square Cm 0.01 0.01 -Date of Last Picture (Recall this 03/19/22 field) -Photo Taken Yes -Texture (Margaret-wound Skin Appearance) Assessed, Localized Edema -Moisture (Margaret-wound Skin Appearance) Assessed, Weeping -Color (Margaret-wound Skin Appearance) No Abnormality, Assessed -Temperature (Margaret-wound Skin No Abnormality Appearance) (Pt Warm) -Tenderness on Palpation (Margaret-wound No Skin Appearance) -Ulcer Cleansing Soap and Water -Foul Odor after Cleansing No #3 left heel cluster -Combined with other wound No -Current Size (cm) - Length 3.0 3 -Current Size (cm) - Width 2.4 3.9 -Current Size (cm) - Depth 2.1 2.7 -Total Square Cm 7.20 11.7 -Date of Last Picture (Recall this 03/19/22 field) -Photo Taken Yes -Epithelialization None Present -Tunneling No -Undermining/Tunneling No -Circular Undermining No -Exudate Amt Large -Exudate Type Serosanguineous -Wound Margin Distinct, Thickened & Outline Rolled Under Attached -Granulation Amt Large (67-100%) Medium (34-66%) -Granulation Quality Red Pale,[place] -Slough/Fibrin Yes -Necrosis Amt Small (1-33%) Medium (34-66%) -Necrotic Tissue Type Adherent Slough Adherent Slough -Structure Exposed N/A -Texture (Margaret-wound Skin Appearance) Assessed, Assessed Localized Edema -Moisture (Margaret-wound Skin Appearance) Assessed, Assessed, Maceration Maceration -Color (Margaret-wound Skin Appearance) No Abnormality, Assessed Assessed -Temperature (Margaret-wound Skin No Abnormality No Abnormality Appearance) (Pt Warm) (Pt Warm) -Tenderness on Palpation (Margaret-wound No No Skin Appearance) -Ulcer Cleansing Soap and Water Soap and Water -Foul Odor after Cleansing No No -Anesthetic Used 5% Lidocaine 4% Lidocaine Gel Solution Lower Limb Edema Present Yes Left Calf (cm) 41.5 Left Ankle (cm) 26.0 WC - Nurse 2 - General Ulcer CM Notes Start: 03/19/22 08:52 Freq: Status: Active Protocol: Activity Type Activity Date Activity User E-sign Co-sign Detail Recorded Client Recorded Date Recorded By Document 03/19/22 09:07 [id number] 03/19/22 09:08 JF Document 03/26/22 11:32 [id number] 03/26/22 11:35 03/19/22 03/26/22 09:07 11:32 Wound Center Nurse 2 #5 left lateral heal incision -Correct Patient No No -Correct Side, Site, Position No No -Correct Procedure No No -Procedure Performed No No -Wound/Ulcer Outcome Not Healed Not Healed #3 left heel cluster -Time 11:33 -Correct Patient No Yes -Correct Side, Site, Position No Yes -Correct Procedure No Yes -Procedure Performed No Yes -Type of Procedure Debridement -Clinical Debridement Muscle / Fascia -Tissue Removed Muscle -Post Debridement (cm) - Length 2.5 -Post Debridement (cm) - Width 1.8 -Post Debridement (cm) - Depth 2.5 -Total Square (Post) (cm) 4.50 -Area of Debridement (cm) - Length 2.5 -Area of Debridement (cm) - Width 1.8 -Total Square (Area) (cm) 4.50 -Tunneling No -Undermining/Tunneling No -Circular Undermining No -Wound/Ulcer Outcome Not Healed Not Healed -Ulcer Cleansing Rinsed/ Irrigated with Saline -Foul Odor after Cleansing No -Bioengineered Tissue No -Bleeding Controlled with Pressure -Treatment Response Procedure Tolerated Well -Offloading No -Assistive Device(s) Wheelchair -Debridement - Muscle / Fascia, 1st Yes 20sq cm Pain Scale: 0-10 Numeric Is Patient Pain Free? Yes Yes WC - Nurse 3 - General Ulcer D/C NN Start: 03/19/22 08:52 Freq: Status: Active Protocol: Activity Type Activity Date Activity User E-sign Co-sign Detail Recorded Client Recorded Date Recorded By Document 03/19/22 09:36 BMF [id number] 03/19/22 09:37 BMF Edit Result 03/19/22 09:36 BMF (1) [id number] 03/20/22 06:59 PL (1) #3 left heel cluster - NPWT Application Charge NPWT & Debridement => NPWT </= 50 sq cm (nc) => ($) 03/19/22 09:36 Wound Care Nurse 3 #5 left lateral heal incision -Ulcer Cleansing Rinsed/ Irrigated with Saline -Foul Odor after Cleansing No -Primary Dressing Applied NonAdherent Contact Layer, Other -Other Dressing BETADINE -Primary Dressing Covered/Secured with Dry Gauze & Roll Gauze, Secured with Tape -Other Covering ABD #3 left heel cluster -Ulcer Cleansing Rinsed/ Irrigated with Saline -Foul Odor after Cleansing No -Negative Pressure Wound Therapy Continue -Setting (mmHg) 150 -Negative Pressure is Continuous -NPWT Application Charge NPWT </= 50 sq cm ($) Left -Compression Wrap Kevin Wrap Treatment Response Procedure Tolerated Well Pain Scale: 0-10 Numeric Is Patient Pain Free? 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 Patient underwent partial calcanectomy due to diffuse osteomyelitis of his left calcaneus confirmed on MRI and pathology. Patient is high risk for proximal amputation and understands this. If there are any signs of wound worsening to his left wound will likely proceed with below-knee amputation but at this time patient appears to be progressing well. Patient is residing in a snf facility maintaining a nonweightbearing status with use of a wound VAC to his left lower extremity. Patient is to be nonweightbearing until his wound heals and is receiving IV Zosyn for a Klebsiella pneumonia and Pseudomonas aeruginosa infection per infectious disease. Today's wound site was examined, no debridement performed. Will continue nonweightbearing and wound VAC to left lower extremity. Patient will follow up in 1 week at which time we will continue to evaluate and will consider advanced wound care therapy. At this time his blood sugar is well controlled confirmed by hemoglobin A1c of 6.7. We will consider consider additional nutritional supplementation. (2) Osteomyelitis of foot, left, acute: CODE(S): M86.172 - Other acute osteomyelitis, left ankle and foot
[2022-04-02 11:17] VITALS: BP 118/79; PULSE 63; RESP 16; TEMP 35.8; BMI 33.7
--- NOTE | 2022-04-02 12:31 | PN.PCM_ITS ---
History of Present Illness Date of Service: 04/02/22 Chief Complaint: Osteomyelitis and chronic delayed healing ulcer, left foot History of Wound: Patient presents today 2 weeks post op from a left partial calcanectomy. Patient denies constitutional symptoms. Patient's pain is well controlled at this time. Patient is maintaining a nonweightbearing status in a [facility] facility receiving IV Zosyn via PICC line. Patient had MRI findings suggestive of osteomyelitis diffusely involving the calcaneus cultures demonstrated growth of Klebsiella pneumonia and Pseudomonas aeruginosa sensitive to Zosyn. Infectious disease following the patient as well. No other complaints at this time. Objective Data Objective Data Vital Signs: Vital Signs Temp Pulse Resp BP O2 Del Method 96.5 F L 63 16 118/79 Room Air 04/02/22 11:17 04/02/22 11:17 04/02/22 11:17 04/02/22 11:17 04/02/22 11:17 Oxygen Delivery Method Room Air Body Mass Index (BMI) 33.7 Physical Exam Narrative Neurovascular status unchanged from previous evaluation. Lateral skin incision appears to be well approximated with intact live. Some maceration to the periincisional area. Full-thickness wound down to calcaneal bone resection site noted to the plantar heel. This demonstrates mild serosanguineous drainage. Mild maceration to the periwound area. No acute signs of infection. Musculoskeletal no pain with calf squeeze or palpation popliteal fossa. No evidence of DVT on exam. Muscular strength full to bilateral lower extremity compartments. Debridement Note Debridement Note Post-Debridement Measurements and Additional Note: Post-Debridement Measurements/Treatment - Nurse 1 - General Ulcer Assessment Start: 03/19/22 08:52 Freq: Status: Active Protocol: [email or web address] Activity Type Activity Date Activity User E-sign Co-sign Detail Recorded Client Recorded Date Recorded By Document 03/19/22 08:52 MW [id number] 03/19/22 09:00 MW Document 03/26/22 10:59 MT [id number] 03/26/22 11:08 CT Document 04/02/22 11:17 [facility] [id number] 04/02/22 11:32 BMF 03/19/22 03/26/22 04/02/22 08:52 10:59 11:17 WC - Today's Visit Information Type of service Follow-up Visit Follow-up Visit (Physician/ESCROW ASSISTANT (Physician/ESCROW ASSISTANT ) ) Arrival Mode Wheelchair Ambulatory, Wheelchair Wheelchair Transfer Assistance None Other Transfer Assist (Other) 1 stand by Accompanied by self Patient Identification Verified (Name & Yes Yes Yes ) Patient Requires Transmission-Based No No Precautions Safety Precautions Fall Prevention Fall Prevention Finger Stick Blood Sugar(mg/dl) (if 149 indicated): Blood Sugar Stated by Patient Height and Weight Body Mass Index (BMI) 33.7 33.7 33.7 BMI Classification Obese Obese Obese Vital Signs Temperature (97.8 F-99.1 F) 97.0 F L 97 F L 96.5 F L Temperature Source Temporal Temporal Temporal Pulse Rate (60-100) 67 66 63 Pulse Location Monitor Monitor Monitor Respiratory Rate (12-18) 18 18 16 Respiratory rate source Observation Observation Observation Oxygen Delivery Method Room Air Room Air Room Air Blood Pressure (90/60-120/80) 101/49 L 114/62 118/79 Blood Pressure Mean (mm Hg) 66 79 92 Source Monitor Monitor Monitor Position Sitting Sitting Sitting Blood Pressure Location Left Arm Left Arm Right Arm History Since Last Visit- (Skip if this is Patient's initial visit) Have you changed medications since your No No last visit? Any new allergies or adverse reactions No No Had a fall/change in ADL's that may No No increase risk of falls Signs or symptoms of abuse and/or No No neglect since last visit Have you been in the hospital since your No No last visit? Has dressing in place as prescribed Yes Yes Yes Has compression in place as prescribed Yes Yes Yes Has offloadiing in place as prescribed Yes Yes Experienced any changes in pain level or No Yes No management Left Footwear Regular Shoe Other Footwear Other Footwear (Comment) (Comment) Right Footwear No Footwear Regular Shoe Regular Shoe Other Footwear surgical bootie to left foot Pain Scale: 0-10 Numeric Is Patient Pain Free? Yes Yes Yes - Nurse 1 - General Ulcer Measurement Start: 03/19/22 08:52 Freq: Status: Active Protocol: Activity Type Activity Date Activity User E-sign Co-sign Detail Recorded Client Recorded Date Recorded By Document 03/19/22 08:52 MW [id number] 03/19/22 09:00 MW Document 03/26/22 10:59 MT [id number] 03/26/22 11:08 CT Document 04/02/22 11:17 [facility] [id number] 04/02/22 11:32 [facility] 03/19/22 03/26/22 04/02/22 08:52 10:59 11:17 Wound Center Nurse 1 #5 left lateral heel incision -Combined with other wound No No -Current Size (cm) - Length 0.1 0.1 0.1 -Current Size (cm) - Width 0.1 0.1 0.1 -Current Size (cm) - Depth 0.1 0.1 0.1 -Total Square Cm 0.01 0.01 0.01 -Date of Last Picture (Recall this 03/19/22 04/02/22 field) -Photo Taken Yes Yes -Texture (Margaret-wound Skin Appearance) Assessed, Localized Edema -Moisture (Margaret-wound Skin Appearance) Assessed, Weeping -Color (Margaret-wound Skin Appearance) No Abnormality, Assessed -Temperature (Margaret-wound Skin No Abnormality Appearance) (Pt Warm) -Tenderness on Palpation (Margaret-wound No Skin Appearance) -Ulcer Cleansing Soap and Water -Foul Odor after Cleansing No -Wound Comment(s) live intact to post op incision #3 left heel cluster -Combined with other wound No No -Current Size (cm) - Length 3.0 3 2 -Current Size (cm) - Width 2.4 3.9 1.4 -Current Size (cm) - Depth 2.1 2.7 2.1 -Total Square Cm 7.20 11.7 2.8 -Date of Last Picture (Recall this 03/19/22 04/02/22 field) -Photo Taken Yes Yes -Epithelialization None Present Small 1-33% -Tunneling No No -Undermining/Tunneling No No -Circular Undermining No No -Exudate Amt Large Medium -Exudate Type Serosanguineous Serosanguineous -Wound Margin Distinct, Thickened & Distinct, Outline Rolled Under Outline Attached Attached -Granulation Amt Large (67-100%) Medium (34-66%) Large (67-100%) -Granulation Quality Red Pale,[place] Red -Slough/Fibrin Yes Yes -Necrosis Amt Small (1-33%) Medium (34-66%) Small (1-33%) -Necrotic Tissue Type Adherent Slough Adherent Slough Adherent Slough -Structure Exposed N/A -Texture (Margaret-wound Skin Appearance) Assessed, Assessed Assessed,Callus Localized Edema ,Scarring -Moisture (Mragaret-wound Skin Appearance) Assessed, Assessed, Assessed, Maceration Maceration Maceration,Dry/ Scaly -Color (Margaret-wound Skin Appearance) No Abnormality, Assessed Assessed Assessed -Temperature (Margaret-wound Skin No Abnormality No Abnormality No Abnormality Appearance) (Pt Warm) (Pt Warm) (Pt Warm) -Tenderness on Palpation (Margaret-wound No No No Skin Appearance) -Ulcer Cleansing Soap and Water Soap and Water Soap and Water -Foul Odor after Cleansing No No No -Anesthetic Used 5% Lidocaine 4% Lidocaine 5% Lidocaine Gel Solution Gel Lower Limb Edema Present Yes Yes Left Calf (cm) 41.5 40.2 Left Ankle (cm) 26.0 26.6 WC - Nurse 2 - General Ulcer CM Notes Start: 03/19/22 08:52 Freq: Status: Active Protocol: Activity Type Activity Date Activity User E-sign Co-sign Detail Recorded Client Recorded Date Recorded By Document 03/19/22 09:07 [id number] 03/19/22 09:08 Document 03/26/22 11:32 [id number] 03/26/22 11:35 Document 04/02/22 11:59 [id number] 04/02/22 12:04 03/19/22 03/26/22 04/02/22 09:07 11:32 11:59 Wound Center Nurse 2 #5 left lateral heel incision -Correct Patient No No No -Correct Side, Site, Position No No No -Correct Procedure No No No -Procedure Performed No No No -Wound/Ulcer Outcome Not Healed Not Healed Not Healed -Offloading Yes -Type of Offloading Surgical Shoe #3 left heel cluster -Time 11:33 -Correct Patient No Yes Yes -Correct Side, Site, Position No Yes Yes -Correct Procedure No Yes Yes -Procedure Performed No Yes Yes -Type of Procedure Debridement Debridement -Clinical Debridement Muscle / Fascia Muscle / Fascia -Tissue Removed Muscle Muscle -Post Debridement (cm) - Length 2.5 2.1 -Post Debridement (cm) - Width 1.8 1.5 -Post Debridement (cm) - Depth 2.5 2.1 -Total Square (Post) (cm) 4.50 3.15 -Area of Debridement (cm) - Length 2.5 2.1 -Area of Debridement (cm) - Width 1.8 1.5 -Total Square (Area) (cm) 4.50 3.15 -Tunneling No No -Undermining/Tunneling No No -Circular Undermining No No -Wound/Ulcer Outcome Not Healed Not Healed Not Healed -Ulcer Cleansing Rinsed/ Rinsed/ Irrigated with Irrigated with Saline Saline -Foul Odor after Cleansing No No -Bioengineered Tissue No No -Bleeding Controlled with Pressure Pressure -Treatment Response Procedure Procedure Tolerated Well Tolerated Well -Offloading No Yes -Type of Offloading Surgical Shoe -Assistive Device(s) Wheelchair Wheelchair -Debridement - Subq, 1st 20sq cm No -Debridement - Muscle / Fascia, 1st Yes Yes 20sq cm Pain Scale: 0-10 Numeric Is Patient Pain Free? Yes Yes Yes WC - Nurse 3 - General Ulcer D/C NN Start: 03/19/22 08:52 Freq: Status: Active Protocol: Activity Type Activity Date Activity User E-sign Co-sign Detail Recorded Client Recorded Date Recorded By Document 03/19/22 09:36 BMF [id number] 03/19/22 09:37 BMF Edit Result 03/19/22 09:36 BMF (1) [id number] 03/20/22 06:59 PL Document 03/26/22 11:45 DL [id number] 03/26/22 11:55 DL Edit Result 03/26/22 11:45 DL (2) [id number] 03/27/22 07:45 PL Document 04/02/22 12:10 DL [id number] 04/02/22 12:28 DL (1) #3 left heel cluster - NPWT Application Charge NPWT & Debridement => NPWT </= 50 sq cm (nc) => ($) (2) #3 left heel cluster - NPWT Application Charge NPWT </= 50 sq cm => NPWT & Debridement ($) => (nc) 03/19/22 03/26/22 04/02/22 09:36 11:45 12:10 Wound Care Nurse 3 #5 left lateral heel incision -Ulcer Cleansing Rinsed/ Soap and Water Rinsed/ Irrigated with Irrigated with Saline Saline -Foul Odor after Cleansing No No No -Primary Dressing Applied NonAdherent Contact Layer, Other -Other Dressing BETADINE betadine betadine -Primary Dressing Covered/Secured with Dry Gauze & Dry Gauze & Dry Gauze & Roll Gauze, Roll Gauze, Roll Gauze, Secured with Secured with Secured with Tape Tape Tape -Other Covering ABD #3 left heel cluster -Ulcer Cleansing Rinsed/ Soap and Water Rinsed/ Irrigated with Irrigated with Saline Saline -Foul Odor after Cleansing No No No -Negative Pressure Wound Therapy Continue Continue Continue -Setting (mmHg) 150 150 150 -Negative Pressure is Continuous Continuous Continuous -Primary Dressing Covered/Secured with Dry Gauze & Roll Gauze, Secured with Tape -NPWT Application Charge NPWT </= 50 sq NPWT & NPWT </= 50 sq cm ($) Debridement (nc cm ($) ) Left -Compression Wrap Kevin Wrap Kevin Wrap Treatment Response Procedure Procedure Procedure Tolerated Well Tolerated Well Tolerated Well Pain Scale: 0-10 Numeric Is Patient Pain Free? Yes Yes Yes WC - Visit Discharge Discharge Condition Stable Stable Stable Ambulatory Status Wheelchair Wheelchair [facility] Pesticide Applicator Care Shelter Care Pesticide Applicator Care Facility Facility Facility Notes: dressing applied per B obey today Orders Sent Yes Yes Assessment/Plan Assessment/Plan (1) Non-pressure chronic ulcer of other part of left foot with necrosis of bone: CODE(S): L97.524 - Non-pressure chronic ulcer of other part of left foot with necrosis of bone PLAN: Patient examined evaluated, all fine discussed with patient in detail. Patient underwent partial calcanectomy due to diffuse osteomyelitis of his left calcaneus confirmed on MRI and pathology. Patient is high risk for proximal amputation and understands this. If there are any signs of wound worsening to his left wound will likely proceed with below- knee amputation but at this time patient appears to be progressing well. Patient adamantly requesting discharge from [facility] facility. I advised the patient against this will prevent wound healing due to increased stress of living alone at home. Patient disagreed with me and wishes to discharge home and promises to maintain a nonweightbearing status during that time assisted by his knee scooter. Excisional debridement down to level of bone was performed in the left calcaneus. All nonviable tissue was removed using 5 mm dermal curette. No topical anesthesia or anesthesia due to neuropathy. Hemostasis obtained with light compression. Pre and postdebridement measurements document nursing notes. Patient tolerated procedure well. Will continue nonweightbearing and wound VAC to left lower extremity. These dressing changes will now be performed by home health care. Patient will follow up in 1 week at which time we will continue to evaluate and will consider advanced wound care therapy. At this time his blood sugar is well controlled confirmed by hemoglobin A1c of 6.7. We will consider consider additional nutritional supplementation. (2) Osteomyelitis of foot, left, acute: CODE(S): M86.172 - Other acute osteomyelitis, left ankle and foot
[2022-04-09 09:05] VITALS: BP 104/70; PULSE 63; RESP 16; TEMP 36.3; BMI 33.7
--- NOTE | 2022-04-09 09:35 | PN.PCM_ITS ---
History of Present Illness Date of Service: 04/09/22 Chief Complaint: Osteomyelitis and chronic delayed healing ulcer, left foot History of Wound: Patient presents today 2 weeks post op from a left partial calcanectomy. Patient denies constitutional symptoms. Patient's pain is well controlled at this time. Patient is [facility] a [facility] status in a [facility] Zosyn via PICC line. Patient had MRI findings suggestive of osteomyelitis diffusely involving the calcaneus cultures demonstrated growth of Klebsiella pneumonia and Pseudomonas aeruginosa sensitive to Zosyn. Infectious disease following the patient as well. No other complaints at this time. Objective Data Objective Data Vital Signs: Vital Signs Temp Pulse Resp BP O2 Del Method 97.4 F L 63 16 104/70 Room Air 04/09/22 09:05 04/09/22 09:05 04/09/22 09:05 04/09/22 09:05 04/09/22 09:05 Oxygen Delivery Method Room Air Body Mass Index (BMI) 33.7 Physical Exam Narrative Neurovascular status unchanged from previous evaluation. Lateral skin incision appears to be well approximated with intact rebeka. Some maceration to the periincisional area. Full-thickness wound down to calcaneal bone resection site noted to the plantar heel. This demonstrates mild serosanguineous drainage. Mild maceration to the periwound area. No acute signs of infection. Musculoskeletal no pain with calf squeeze or palpation popliteal fossa. No evidence of DVT on exam. Muscular strength full to bilateral lower extremity compartments. Debridement Note Debridement Note Post-Debridement Measurements and Additional Note: Post-Debridement Measurements/Treatment WC - Nurse 1 - General Ulcer Assessment Start: 03/19/22 08:52 Freq: Status: Active Protocol: [email or web address].LOWEXT Activity Type Activity Date Activity User E-sign Co-sign Detail Recorded Client Recorded Date Recorded By Document 03/19/22 08:52 MW [id number] 03/19/22 09:00 MW Document 03/26/22 10:59 MT [id number] 03/26/22 11:08 LA Document 04/02/22 11:17 [facility] [id number] 04/02/22 11:32 BMF Document 04/09/22 09:05 [facility] [id number] 04/09/22 09:17 BMF 03/19/22 03/26/22 04/02/22 08:52 10:59 11:17 - Today's Visit Information Type of service Follow-up Visit Follow-up Visit (Physician/CONTACT LENS BLOCKER (Physician/CONTACT LENS BLOCKER ) ) Arrival Mode Wheelchair Ambulatory, Wheelchair Wheelchair Transfer Assistance None Other Transfer Assist (Other) 1 stand by Accompanied by self Patient Identification Verified (Name & Yes Yes Yes ) Patient Requires Transmission-Based No No Precautions Safety Precautions Fall Prevention Fall Prevention Finger Stick Blood Sugar(mg/dl) (if 149 indicated): Blood Sugar Stated by Patient Height and Weight Body Mass Index (BMI) 33.7 33.7 33.7 BMI Classification Obese Obese Obese Vital Signs Temperature (97.8 F-99.1 F) 97.0 F L 97 F L 96.5 F L Temperature Source Temporal Temporal Temporal Pulse Rate (60-100) 67 66 63 Pulse Location Monitor Monitor Monitor Respiratory Rate (12-18) 18 18 16 Respiratory rate source Observation Observation Observation Oxygen Delivery Method Room Air Room Air Room Air Blood Pressure (90/60-120/80) 101/49 L 114/62 118/79 Blood Pressure Mean (mm Hg) 66 79 92 Source Monitor Monitor Monitor Position Sitting Sitting Sitting Blood Pressure Location Left Arm Left Arm Right Arm History Since Last Visit- (Skip if this is Patient's initial visit) Have you changed medications since your No No last visit? Any new allergies or adverse reactions No No Had a fall/change in ADL's that may No No increase risk of falls Signs or symptoms of abuse and/or No No neglect since last visit Have you been in the hospital since your No No last visit? Has dressing in place as prescribed Yes Yes Yes Has compression in place as prescribed Yes Yes Yes Has offloadiing in place as prescribed Yes Yes Experienced any changes in pain level or No Yes No management Left Footwear Regular Shoe Other Footwear Other Footwear (Comment) (Comment) Right Footwear No Footwear Regular Shoe Regular Shoe Other Footwear surgical bootie to left foot Pain Scale: 0-10 Numeric Is Patient Pain Free? Yes Yes Yes 04/09/22 09:05 - Today's Visit Information Type of service Follow-up Visit (Physician/CONTACT LENS BLOCKER ) Arrival Mode Wheelchair Transfer Assistance Transfer Assist (Other) Accompanied by Patient Identification Verified (Name & Yes ) Patient Requires Transmission-Based No Precautions Safety Precautions Finger Stick Blood Sugar(mg/dl) (if indicated): Blood Sugar Height and Weight Body Mass Index (BMI) 33.7 BMI Classification Obese Vital Signs Temperature (97.8 F-99.1 F) 97.4 F L Temperature Source Temporal Pulse Rate (60-100) 63 Pulse Location Monitor Respiratory Rate (12-18) 16 Respiratory rate source Observation Oxygen Delivery Method Room Air Blood Pressure (90/60-120/80) 104/70 Blood Pressure Mean (mm Hg) 81 Source Monitor Position Sitting Blood Pressure Location Left Forearm History Since Last Visit- (Skip if this is Patient's initial visit) Have you changed medications since your No last visit? Any new allergies or adverse reactions No Had a fall/change in ADL's that may No increase risk of falls Signs or symptoms of abuse and/or No neglect since last visit Have you been in the hospital since your No last visit? Has dressing in place as prescribed Yes Has compression in place as prescribed Yes Has offloadiing in place as prescribed Yes Experienced any changes in pain level or management Left Footwear Right Footwear Regular Shoe Other Footwear non skid sock to left Pain Scale: 0-10 Numeric Is Patient Pain Free? Yes WC - Nurse 1 - General Ulcer Measurement Start: 03/19/22 08:52 Freq: Status: Active Protocol: Activity Type Activity Date Activity User E-sign Co-sign Detail Recorded Client Recorded Date Recorded By Document 03/19/22 08:52 [id number] 03/19/22 09:00 MW Document 03/26/22 10:59 LA [id number] 03/26/22 11:08 LA Document 04/02/22 11:17 [facility] [id number] 04/02/22 11:32 BM Document 04/09/22 09:05 [facility] [id number] 04/09/22 09:17 [facility] 03/19/22 03/26/22 04/02/22 08:52 10:59 11:17 Wound Center Nurse 1 #5 left lateral heel incision -Combined with other wound No No -Current Size (cm) - Length 0.1 0.1 0.1 -Current Size (cm) - Width 0.1 0.1 0.1 -Current Size (cm) - Depth 0.1 0.1 0.1 -Total Square Cm 0.01 0.01 0.01 -Date of Last Picture (Recall this 03/19/22 04/02/22 field) -Photo Taken Yes Yes -Exudate Amt -Texture (Margaret-wound Skin Appearance) Assessed, Localized Edema -Moisture (Margaret-wound Skin Appearance) Assessed, Weeping -Color (Margaret-wound Skin Appearance) No Abnormality, Assessed -Temperature (Margaret-wound Skin No Abnormality Appearance) (Pt Warm) -Tenderness on Palpation (Margaret-wound No Skin Appearance) -Ulcer Cleansing Soap and Water -Foul Odor after Cleansing No -Wound Comment(s) rebeka intact to post op incision #3 left heel cluster -Combined with other wound No No -Current Size (cm) - Length 3.0 3 2 -Current Size (cm) - Width 2.4 3.9 1.4 -Current Size (cm) - Depth 2.1 2.7 2.1 -Total Square Cm 7.20 11.7 2.8 -Date of Last Picture (Recall this 03/19/22 04/02/22 field) -Photo Taken Yes Yes -Epithelialization None Present Small 1-33% -Tunneling No No -Undermining/Tunneling No No -Circular Undermining No No -Exudate Amt Large Medium -Exudate Type Serosanguineous Serosanguineous -Wound Margin Distinct, Thickened & Distinct, Outline Rolled Under Outline Attached Attached -Granulation Amt Large (67-100%) Medium (34-66%) Large (67-100%) -Granulation Quality Red Pale,[place] Red -Slough/Fibrin Yes Yes -Necrosis Amt Small (1-33%) Medium (34-66%) Small (1-33%) -Necrotic Tissue Type Adherent Slough Adherent Slough Adherent Slough -Structure Exposed N/A -Texture (Margaret-wound Skin Appearance) Assessed, Assessed Assessed,Callus Localized Edema ,Scarring -Moisture (Margaret-wound Skin Appearance) Assessed, Assessed, Assessed, Maceration Maceration Maceration,Dry/ Scaly -Color (Margaret-wound Skin Appearance) No Abnormality, Assessed Assessed Assessed -Temperature (Margaret-wound Skin No Abnormality No Abnormality No Abnormality Appearance) (Pt Warm) (Pt Warm) (Pt Warm) -Tenderness on Palpation (Margaret-wound No No No Skin Appearance) -Ulcer Cleansing Soap and Water Soap and Water Soap and Water -Foul Odor after Cleansing No No No -Anesthetic Used 5% Lidocaine 4% Lidocaine 5% Lidocaine Gel Solution Gel Lower Limb Edema Present Yes Yes Left Calf (cm) 41.5 40.2 Left Ankle (cm) 26.0 26.6 04/09/22 09:05 Wound Center Nurse 1 #5 left lateral heel incision -Combined with other wound No -Current Size (cm) - Length 0.1 -Current Size (cm) - Width 0.1 -Current Size (cm) - Depth 0.1 -Total Square Cm 0.01 -Date of Last Picture (Recall this 04/09/22 field) -Photo Taken Yes -Exudate Amt None Present -Texture (Margaret-wound Skin Appearance) Assessed, Scarring -Moisture (Margaret-wound Skin Appearance) Assessed,Dry/ Scaly -Color (Margaret-wound Skin Appearance) Assessed -Temperature (Margaret-wound Skin No Abnormality Appearance) (Pt Warm) -Tenderness on Palpation (Margaret-wound No Skin Appearance) -Ulcer Cleansing Soap and Water -Foul Odor after Cleansing No -Wound Comment(s) rebeka intact #3 left heel cluster -Combined with other wound No -Current Size (cm) - Length 3.2 -Current Size (cm) - Width 2.8 -Current Size (cm) - Depth 2.2 -Total Square Cm 8.96 -Date of Last Picture (Recall this 04/09/22 field) -Photo Taken Yes -Epithelialization Small 1-33% -Tunneling No -Undermining/Tunneling No -Circular Undermining No -Exudate Amt Large -Exudate Type -Wound Margin Distinct, Outline Attached -Granulation Amt Large (67-100%) -Granulation Quality Red -Slough/Fibrin Yes -Necrosis Amt Small (1-33%) -Necrotic Tissue Type Adherent Slough -Structure Exposed -Texture (Margaret-wound Skin Appearance) Assessed,Callus ,Scarring -Moisture (Margaret-wound Skin Appearance) Assessed, Maceration,Dry/ Scaly -Color (Margaret-wound Skin Appearance) Assessed -Temperature (Margaret-wound Skin No Abnormality Appearance) (Pt Warm) -Tenderness on Palpation (Margaret-wound No Skin Appearance) -Ulcer Cleansing Soap and Water -Foul Odor after Cleansing No -Anesthetic Used 5% Lidocaine Gel Lower Limb Edema Present Yes Left Calf (cm) 43 Left Ankle (cm) 23.8 WC - Nurse 2 - General Ulcer CM Notes Start: 03/19/22 08:52 Freq: Status: Active Protocol: Activity Type Activity Date Activity User E-sign Co-sign Detail Recorded Client Recorded Date Recorded By Document 03/19/22 09:07 [id number] 03/19/22 09:08 Document 03/26/22 11:32 [id number] 03/26/22 11:35 Document 04/02/22 11:59 [id number] 04/02/22 12:04 Document 04/09/22 09:28 [id number] 04/09/22 09:33 03/19/22 03/26/22 04/02/22 09:07 11:32 11:59 Wound Center Nurse 2 #5 left lateral heel incision -Time -Correct Patient No No No -Correct Side, Site, Position No No No -Correct Procedure No No No -Procedure Performed No No No -Tunneling -Undermining/Tunneling -Circular Undermining -Wound/Ulcer Outcome Not Healed Not Healed Not Healed -Offloading Yes -Type of Offloading Surgical Shoe -Debridement - Subq, 1st 20sq cm #3 left heel cluster -Time 11:33 -Correct Patient No Yes Yes -Correct Side, Site, Position No Yes Yes -Correct Procedure No Yes Yes -Procedure Performed No Yes Yes -Type of Procedure Debridement Debridement -Clinical Debridement Muscle / Fascia Muscle / Fascia -Tissue Removed Muscle Muscle -Post Debridement (cm) - Length 2.5 2.1 -Post Debridement (cm) - Width 1.8 1.5 -Post Debridement (cm) - Depth 2.5 2.1 -Total Square (Post) (cm) 4.50 3.15 -Area of Debridement (cm) - Length 2.5 2.1 -Area of Debridement (cm) - Width 1.8 1.5 -Total Square (Area) (cm) 4.50 3.15 -Tunneling No No -Undermining/Tunneling No No -Circular Undermining No No -Wound/Ulcer Outcome Not Healed Not Healed Not Healed -Ulcer Cleansing Rinsed/ Rinsed/ Irrigated with Irrigated with Saline Saline -Foul Odor after Cleansing No No -Bioengineered Tissue No No -Bleeding Controlled with Pressure Pressure -Treatment Response Procedure Procedure Tolerated Well Tolerated Well -Offloading No Yes -Type of Offloading Surgical Shoe -Assistive Device(s) Wheelchair Wheelchair -Debridement - Subq, 1st 20sq cm No -Debridement - Muscle / Fascia, 1st Yes Yes 20sq cm Pain Scale: 0-10 Numeric Is Patient Pain Free? Yes Yes Yes 04/09/22 09:28 Wound Center Nurse 2 #5 left lateral heel incision -Time 09:29 -Correct Patient No -Correct Side, Site, Position No -Correct Procedure No -Procedure Performed No -Tunneling No -Undermining/Tunneling No -Circular Undermining No -Wound/Ulcer Outcome Not Healed -Offloading -Type of Offloading -Debridement - Subq, 1st 20sq cm No #3 left heel cluster -Time 09:31 -Correct Patient Yes -Correct Side, Site, Position Yes -Correct Procedure Yes -Procedure Performed Yes -Type of Procedure Debridement -Clinical Debridement Muscle / Fascia -Tissue Removed Muscle -Post Debridement (cm) - Length 3.3 -Post Debridement (cm) - Width 2.8 -Post Debridement (cm) - Depth 2.2 -Total Square (Post) (cm) 9.24 -Area of Debridement (cm) - Length 3.3 -Area of Debridement (cm) - Width 2.8 -Total Square (Area) (cm) 9.24 -Tunneling No -Undermining/Tunneling No -Circular Undermining No -Wound/Ulcer Outcome Not Healed -Ulcer Cleansing Rinsed/ Irrigated with Saline -Foul Odor after Cleansing -Bioengineered Tissue No -Bleeding Controlled with Pressure -Treatment Response Procedure Tolerated Well -Offloading No -Type of Offloading -Assistive Device(s) Wheelchair -Debridement - Subq, 1st 20sq cm -Debridement - Muscle / Fascia, 1st Yes 20sq cm Pain Scale: 0-10 Numeric Is Patient Pain Free? Yes - Nurse 3 - General Ulcer D/C NN Start: 03/19/22 08:52 Freq: Status: Active Protocol: Activity Type Activity Date Activity User E-sign Co-sign Detail Recorded Client Recorded Date Recorded By Document 03/19/22 09:36 [facility] [id number] 03/19/22 09:37 [facility] Edit Result 03/19/22 09:36 BMF (1) [id number] 03/20/22 06:59 PL Document 03/26/22 11:45 DL [id number] 03/26/22 11:55 DL Edit Result 03/26/22 11:45 DL (2) [id number] 03/27/22 07:45 PL Document 04/02/22 12:10 DL [id number] 04/02/22 12:28 DL Edit Result 04/02/22 12:10 DL (3) [id number] 04/03/22 07:27 PL (1) #3 left heel cluster - NPWT Application Charge NPWT & Debridement => NPWT </= 50 sq cm (nc) => ($) (2) #3 left heel cluster - NPWT Application Charge NPWT </= 50 sq cm => NPWT & Debridement ($) => (nc) (3) #3 left heel cluster - NPWT Application Charge NPWT </= 50 sq cm => NPWT & Debridement ($) => (nc) 03/19/22 03/26/22 04/02/22 09:36 11:45 12:10 Wound Care Nurse 3 #5 left lateral heel incision -Ulcer Cleansing Rinsed/ Soap and Water Rinsed/ Irrigated with Irrigated with Saline Saline -Foul Odor after Cleansing No No No -Primary Dressing Applied NonAdherent Contact Layer, Other -Other Dressing BETADINE betadine betadine -Primary Dressing Covered/Secured with Dry Gauze & Dry Gauze & Dry Gauze & Roll Gauze, Roll Gauze, Roll Gauze, Secured with Secured with Secured with Tape Tape Tape -Other Covering ABD #3 left heel cluster -Ulcer Cleansing Rinsed/ Soap and Water Rinsed/ Irrigated with Irrigated with Saline Saline -Foul Odor after Cleansing No No No -Negative Pressure Wound Therapy Continue Continue Continue -Setting (mmHg) 150 150 150 -Negative Pressure is Continuous Continuous Continuous -Primary Dressing Covered/Secured with Dry Gauze & Roll Gauze, Secured with Tape -NPWT Application Charge NPWT </= 50 sq NPWT & NPWT & cm ($) Debridement (nc Debridement (nc ) ) Left -Compression Wrap Kevin Wrap Kevin Wrap Treatment Response Procedure Procedure Procedure Tolerated Well Tolerated Well Tolerated Well Pain Scale: 0-10 Numeric Is Patient Pain Free? Yes Yes Yes WC - Visit Discharge Discharge Condition Stable Stable Stable Ambulatory Status Wheelchair [facility] Facility Facility Notes: dressing applied per B barnhart today Orders Sent Yes Yes Assessment/Plan Assessment/Plan (1) Non-pressure chronic ulcer of other part of left foot with necrosis of bone: CODE(S): L97.524 - Non-pressure chronic ulcer of other part of left foot with necrosis of bone PLAN: Patient examined evaluated, all fine discussed with patient in detail. Patient underwent partial calcanectomy due to diffuse osteomyelitis of his left calcaneus confirmed on MRI and pathology. Patient is high risk for proximal amputation and understands this. If there are any signs of wound worsening to his left wound will likely proceed with below- knee amputation but at this time patient appears to be progressing well. Patient transferred from one SNF to another due to smoking limitations (ultimately) Excisional debridement down to level of bone was performed in the left calcaneus. All nonviable tissue was removed using 5 mm dermal curette. No topical anesthesia or anesthesia due to neuropathy. Hemostasis obtained with light compression. Pre and postdebridement measurements document nursing notes. Patient tolerated procedure well. Will continue nonweightbearing and wound VAC to left lower extremity. These dressing changes will now be performed by home health care. Rebeka aseptically removed from left lateral foot. Patient will follow up in 1 week at which time we will continue to evaluate and will consider advanced wound care therapy. At this time his blood sugar is well controlled confirmed by hemoglobin A1c of 6.7. We will consider consider additional nutritional supplementation. Wound improving well at this time. (2) Osteomyelitis of foot, left, acute: CODE(S): M86.172 - Other acute osteomyelitis, left ankle and foot
[2022-04-16 09:20] VITALS: BP 136/70; PULSE 75; RESP 18; TEMP 36; BMI 33.7
--- NOTE | 2022-04-16 09:48 | PN.PCM_ITS ---
History of Present Illness Date of Service: 04/16/22 Chief Complaint: Osteomyelitis and chronic delayed healing ulcer, left foot History of Wound: Patient presents today 2 weeks post op from a left partial calcanectomy. Patient denies constitutional symptoms. Patient's pain is well controlled at this time. Patient is maintaining a nonweightbearing status in a half-way facility receiving IV Zosyn via PICC line. Patient had MRI findings suggestive of osteomyelitis diffusely involving the calcaneus cultures demonstrated growth of Klebsiella pneumonia and Pseudomonas aeruginosa sensitive to Zosyn. Infectious disease following the patient as well. No other complaints at this time. Objective Data Objective Data Vital Signs: Vital Signs Temp Pulse Resp BP O2 Del Method 96.8 F L 75 18 136/70 H Room Air 04/16/22 09:20 04/16/22 09:20 04/16/22 09:20 04/16/22 09:20 04/16/22 09:20 Oxygen Delivery Method Room Air Body Mass Index (BMI) 33.7 Physical Exam Narrative Neurovascular status unchanged from previous evaluation. Lateral skin incision appears to be well approximated with intact live. Some maceration to the periincisional area. Full-thickness wound down to calcaneal bone resection site noted to the plantar heel. This demonstrates mild serosanguineous drainage. Mild maceration to the periwound area. No acute signs of infection. Musculoskeletal no pain with calf squeeze or palpation popliteal fossa. No evidence of DVT on exam. Muscular strength full to bilateral lower extremity compartments. Debridement Note Debridement Note Post-Debridement Measurements and Additional Note: Post-Debridement Measurements/Treatment WC - Nurse 1 - General Ulcer Assessment Start: 03/19/22 08:52 Freq: Status: Active Protocol: JANESSA.LOWEXT Activity Type Activity Date Activity User E-sign Co-sign Detail Recorded Client Recorded Date Recorded By Document 03/19/22 08:52 MW [id number] 03/19/22 09:00 MW Document 03/26/22 10:59 MT [id number] 03/26/22 11:08 [place] Document 04/02/22 11:17 [facility] [id number] 04/02/22 11:32 BMF Document 04/09/22 09:05 [facility] [id number] 11/22/22 09:17 BMF Document 04/16/22 09:20 MW [id number] 04/16/22 09:30 MW 03/19/22 03/26/22 04/02/22 08:52 10:59 11:17 - Today's Visit Information Type of service Follow-up Visit Follow-up Visit (Physician/INSTRUCTIONAL RESOURCE TEACHER (Physician/INSTRUCTIONAL RESOURCE TEACHER ) ) Arrival Mode Wheelchair Ambulatory, Wheelchair Wheelchair Transfer Assistance None Other Transfer Assist (Other) 1 stand by Accompanied by self Patient Identification Verified (Name & Yes Yes Yes ) Patient Requires Transmission-Based No No Precautions Safety Precautions Fall Prevention Fall Prevention Finger Stick Blood Sugar(mg/dl) (if 149 indicated): Blood Sugar Stated by Patient Height and Weight Body Mass Index (BMI) 33.7 33.7 33.7 BMI Classification Obese Obese Obese Vital Signs Temperature (97.8 F-99.1 F) 97.0 F L 97 F L 96.5 F L Temperature Source Temporal Temporal Temporal Pulse Rate (60-100) 67 66 63 Pulse Location Monitor Monitor Monitor Respiratory Rate (12-18) 18 18 16 Respiratory rate source Observation Observation Observation Oxygen Delivery Method Room Air Room Air Room Air Blood Pressure (90/60-120/80) 101/49 L 114/62 118/79 Blood Pressure Mean (mm Hg) 66 79 92 Source Monitor Monitor Monitor Position Sitting Sitting Sitting Blood Pressure Location Left Arm Left Arm Right Arm History Since Last Visit- (Skip if this is Patient's initial visit) Have you changed medications since your No No last visit? Any new allergies or adverse reactions No No Had a fall/change in ADL's that may No No increase risk of falls Signs or symptoms of abuse and/or No No neglect since last visit Have you been in the hospital since your No No last visit? Has dressing in place as prescribed Yes Yes Yes Has compression in place as prescribed Yes Yes Yes Has offloadiing in place as prescribed Yes Yes Experienced any changes in pain level or No Yes No management Left Footwear Regular Shoe Other Footwear Other Footwear (Comment) (Comment) Right Footwear No Footwear Regular Shoe Regular Shoe Other Footwear surgical bootie to left foot Pain Scale: 0-10 Numeric Is Patient Pain Free? Yes Yes Yes 04/09/22 04/16/22 09:05 09:20 - Today's Visit Information Type of service Follow-up Visit Follow-up Visit (Physician/INSTRUCTIONAL RESOURCE TEACHER (Physician/INSTRUCTIONAL RESOURCE TEACHER ) ) Arrival Mode Wheelchair Wheelchair Transfer Assistance None Transfer Assist (Other) Accompanied by self Patient Identification Verified (Name & Yes Yes ) Patient Requires Transmission-Based No No Precautions Safety Precautions NA Finger Stick Blood Sugar(mg/dl) (if 212 indicated): Blood Sugar Stated by Patient Height and Weight Body Mass Index (BMI) 33.7 33.7 BMI Classification Obese Obese Vital Signs Temperature (97.8 F-99.1 F) 97.4 F L 96.8 F L Temperature Source Temporal Temporal Pulse Rate (60-100) 63 75 Pulse Location Monitor Monitor Respiratory Rate (12-18) 16 18 Respiratory rate source Observation Observation Oxygen Delivery Method Room Air Room Air Blood Pressure (90/60-120/80) 104/70 136/70 H Blood Pressure Mean (mm Hg) 81 92 Source Monitor Monitor Position Sitting Sitting Blood Pressure Location Left Forearm Right Arm History Since Last Visit- (Skip if this is Patient's initial visit) Have you changed medications since your No No last visit? Any new allergies or adverse reactions No No Had a fall/change in ADL's that may No No increase risk of falls Signs or symptoms of abuse and/or No No neglect since last visit Have you been in the hospital since your No No last visit? Has dressing in place as prescribed Yes Yes Has compression in place as prescribed Yes Yes Has offloadiing in place as prescribed Yes N/A Experienced any changes in pain level or No management Left Footwear Slipper Right Footwear Regular Shoe Regular Shoe Other Footwear non skid sock to left Pain Scale: 0-10 Numeric Is Patient Pain Free? Yes Yes WC - Nurse 1 - General Ulcer Measurement Start: 03/19/22 08:52 Freq: Status: Active Protocol: Activity Type Activity Date Activity User E-sign Co-sign Detail Recorded Client Recorded Date Recorded By Document 03/19/22 08:52 [id number] 03/19/22 09:00 MW Document 03/26/22 10:59 MT [id number] 03/26/22 11:08 MT Document 04/02/22 11:17 [facility] [id number] 04/02/22 11:32 BM Document 04/09/22 09:05 [facility] [id number] 04/09/22 09:17 [facility] Document 04/16/22 09:20 MW [id number] 04/16/22 09:30 MW 03/19/22 03/26/22 04/02/22 08:52 10:59 11:17 Wound Center Nurse 1 #5 left lateral heel incision -Combined with other wound No No -Current Size (cm) - Length 0.1 0.1 0.1 -Current Size (cm) - Width 0.1 0.1 0.1 -Current Size (cm) - Depth 0.1 0.1 0.1 -Total Square Cm 0.01 0.01 0.01 -Date of Last Picture (Recall this 03/19/22 04/02/22 field) -Photo Taken Yes Yes -Epithelialization -Tunneling -Undermining/Tunneling -Circular Undermining -Exudate Amt -Granulation Quality -Slough/Fibrin -Necrosis Amt -Structure Exposed -Texture (Margaret-wound Skin Appearance) Assessed, Localized Edema -Moisture (Margaret-wound Skin Appearance) Assessed, Weeping -Color (Margaret-wound Skin Appearance) No Abnormality, Assessed -Temperature (Margaret-wound Skin No Abnormality Appearance) (Pt Warm) -Tenderness on Palpation (Margaret-wound No Skin Appearance) -Ulcer Cleansing Soap and Water -Foul Odor after Cleansing No -Wound Comment(s) live intact to post op incision #3 left heel cluster -Combined with other wound No No -Current Size (cm) - Length 3.0 3 2 -Current Size (cm) - Width 2.4 3.9 1.4 -Current Size (cm) - Depth 2.1 2.7 2.1 -Total Square Cm 7.20 11.7 2.8 -Date of Last Picture (Recall this 03/19/22 04/02/22 field) -Photo Taken Yes Yes -Epithelialization None Present Small 1-33% -Tunneling No No -Undermining/Tunneling No No -Circular Undermining No No -Exudate Amt Large Medium -Exudate Type Serosanguineous Serosanguineous -Wound Margin Distinct, Thickened & Distinct, Outline Rolled Under Outline Attached Attached -Granulation Amt Large (67-100%) Medium (34-66%) Large (67-100%) -Granulation Quality Red Pale,[place] Red -Slough/Fibrin Yes Yes -Necrosis Amt Small (1-33%) Medium (34-66%) Small (1-33%) -Necrotic Tissue Type Adherent Slough Adherent Slough Adherent Slough -Structure Exposed N/A -Texture (Margaret-wound Skin Appearance) Assessed, Assessed Assessed,Callus Localized Edema ,Scarring -Moisture (Margaret-wound Skin Appearance) Assessed, Assessed, Assessed, Maceration Maceration Maceration,Dry/ Scaly -Color (Margaret-wound Skin Appearance) No Abnormality, Assessed Assessed Assessed -Temperature (Margaret-wound Skin No Abnormality No Abnormality No Abnormality Appearance) (Pt Warm) (Pt Warm) (Pt Warm) -Tenderness on Palpation (Margaret-wound No No No Skin Appearance) -Ulcer Cleansing Soap and Water Soap and Water Soap and Water -Foul Odor after Cleansing No No No -Anesthetic Used 5% Lidocaine 4% Lidocaine 5% Lidocaine Gel Solution Gel Lower Limb Edema Present Yes Yes Left Calf (cm) 41.5 40.2 Left Ankle (cm) 26.0 26.6 04/09/22 04/16/22 09:05 09:20 Wound Center Nurse 1 #5 left lateral heel incision -Combined with other wound No No -Current Size (cm) - Length 0.1 0.1 -Current Size (cm) - Width 0.1 0.1 -Current Size (cm) - Depth 0.1 0.1 -Total Square Cm 0.01 0.01 -Date of Last Picture (Recall this 04/09/22 04/16/22 field) -Photo Taken Yes Yes -Epithelialization Large 67-100% -Tunneling No -Undermining/Tunneling No -Circular Undermining No -Exudate Amt None Present -Granulation Quality N/A -Slough/Fibrin No -Necrosis Amt None Present (0 %) -Structure Exposed N/A -Texture (Margaret-wound Skin Appearance) Assessed, Assessed, Scarring Localized Edema ,Scarring -Moisture (Margaret-wound Skin Appearance) Assessed,Dry/ No Abnormality, Scaly Assessed -Color (Margaret-wound Skin Appearance) Assessed No Abnormality, Assessed -Temperature (Margaret-wound Skin No Abnormality No Abnormality Appearance) (Pt Warm) (Pt Warm) -Tenderness on Palpation (Margaret-wound No No Skin Appearance) -Ulcer Cleansing Soap and Water Soap and Water -Foul Odor after Cleansing No -Wound Comment(s) live intact #3 left heel cluster -Combined with other wound No No -Current Size (cm) - Length 3.2 1.0 -Current Size (cm) - Width 2.8 0.4 -Current Size (cm) - Depth 2.2 1.7 -Total Square Cm 8.96 0.40 -Date of Last Picture (Recall this 04/09/22 04/16/22 field) -Photo Taken Yes Yes -Epithelialization Small 1-33% None Present -Tunneling No No -Undermining/Tunneling No No -Circular Undermining No No -Exudate Amt Large Medium -Exudate Type Serosanguineous -Wound Margin Distinct, Distinct, Outline Outline Attached Attached -Granulation Amt Large (67-100%) Large (67-100%) -Granulation Quality Red Red -Slough/Fibrin Yes Yes -Necrosis Amt Small (1-33%) Small (1-33%) -Necrotic Tissue Type Adherent Slough Adherent Slough -Structure Exposed N/A -Texture (Margaret-wound Skin Appearance) Assessed,Callus Assessed, ,Scarring Localized Edema ,Scarring -Moisture (Margaret-wound Skin Appearance) Assessed, Assessed, Maceration,Dry/ Maceration Scaly -Color (Margaret-wound Skin Appearance) Assessed Assessed -Temperature (Margaret-wound Skin No Abnormality No Abnormality Appearance) (Pt Warm) (Pt Warm) -Tenderness on Palpation (Margaret-wound No No Skin Appearance) -Ulcer Cleansing Soap and Water Soap and Water -Foul Odor after Cleansing No No -Anesthetic Used 5% Lidocaine 5% Lidocaine Gel Gel Lower Limb Edema Present Yes Yes Left Calf (cm) 43 40.2 Left Ankle (cm) 23.8 23.6 WC - Nurse 2 - General Ulcer CM Notes Start: 03/19/22 08:52 Freq: Status: Active Protocol: Activity Type Activity Date Activity User E-sign Co-sign Detail Recorded Client Recorded Date Recorded By Document 03/19/22 09:07 DANIEL [id number] 03/19/22 09:08 Document 03/26/22 11:32 DANIEL [id number] 03/26/22 11:35 DANIEL Document 04/02/22 11:59 DANIEL [id number] 04/02/22 12:04 Document 04/09/22 09:28 [id number] 04/09/22 09:33 Document 04/16/22 09:46 [id number] 04/16/22 09:48 03/19/22 03/26/22 04/02/22 09:07 11:32 11:59 Wound Center Nurse 2 #5 left lateral heel incision -Time -Correct Patient No No No -Correct Side, Site, Position No No No -Correct Procedure No No No -Procedure Performed No No No -Tunneling -Undermining/Tunneling -Circular Undermining -Wound/Ulcer Outcome Not Healed Not Healed Not Healed -Offloading Yes -Type of Offloading Surgical Shoe -Debridement - Subq, 1st 20sq cm #3 left heel cluster -Time 11:33 -Correct Patient No Yes Yes -Correct Side, Site, Position No Yes Yes -Correct Procedure No Yes Yes -Procedure Performed No Yes Yes -Type of Procedure Debridement Debridement -Clinical Debridement Muscle / Fascia Muscle / Fascia -Tissue Removed Muscle Muscle -Post Debridement (cm) - Length 2.5 2.1 -Post Debridement (cm) - Width 1.8 1.5 -Post Debridement (cm) - Depth 2.5 2.1 -Total Square (Post) (cm) 4.50 3.15 -Area of Debridement (cm) - Length 2.5 2.1 -Area of Debridement (cm) - Width 1.8 1.5 -Total Square (Area) (cm) 4.50 3.15 -Tunneling No No -Undermining/Tunneling No No -Circular Undermining No No -Wound/Ulcer Outcome Not Healed Not Healed Not Healed -Ulcer Cleansing Rinsed/ Rinsed/ Irrigated with Irrigated with Saline Saline -Foul Odor after Cleansing No No -Bioengineered Tissue No No -Bleeding Controlled with Pressure Pressure -Treatment Response Procedure Procedure Tolerated Well Tolerated Well -Offloading No Yes -Type of Offloading Surgical Shoe -Assistive Device(s) Wheelchair Wheelchair -Debridement - Subq, 1st 20sq cm No -Debridement - Muscle / Fascia, 1st Yes Yes 20sq cm Pain Scale: 0-10 Numeric Is Patient Pain Free? Yes Yes Yes 04/09/22 04/16/22 09:28 09:46 Wound Center Nurse 2 #5 left lateral heel incision -Time 09:29 -Correct Patient No No -Correct Side, Site, Position No No -Correct Procedure No No -Procedure Performed No No -Tunneling No -Undermining/Tunneling No -Circular Undermining No -Wound/Ulcer Outcome Not Healed Healed- Epithelialized -Offloading -Type of Offloading -Debridement - Subq, 1st 20sq cm No #3 left heel cluster -Time 09:31 09:47 -Correct Patient Yes Yes -Correct Side, Site, Position Yes Yes -Correct Procedure Yes Yes -Procedure Performed Yes Yes -Type of Procedure Debridement Debridement -Clinical Debridement Muscle / Fascia Muscle / Fascia -Tissue Removed Muscle Muscle -Post Debridement (cm) - Length 3.3 1 -Post Debridement (cm) - Width 2.8 0.5 -Post Debridement (cm) - Depth 2.2 1.8 -Total Square (Post) (cm) 9.24 0.5 -Area of Debridement (cm) - Length 3.3 1 -Area of Debridement (cm) - Width 2.8 0.5 -Total Square (Area) (cm) 9.24 0.5 -Tunneling No No -Undermining/Tunneling No No -Circular Undermining No No -Wound/Ulcer Outcome Not Healed Not Healed -Ulcer Cleansing Rinsed/ Rinsed/ Irrigated with Irrigated with Saline Saline -Foul Odor after Cleansing No -Bioengineered Tissue No No -Bleeding Controlled with Pressure Pressure -Treatment Response Procedure Procedure Tolerated Well Tolerated Well -Offloading No Yes -Type of Offloading Camwalker -Assistive Device(s) Wheelchair Wheelchair -Debridement - Subq, 1st 20sq cm No -Debridement - Muscle / Fascia, 1st Yes Yes 20sq cm Pain Scale: 0-10 Numeric Is Patient Pain Free? Yes Yes WC - Nurse 3 - General Ulcer D/C NN Start: 03/19/22 08:52 Freq: Status: Active Protocol: Activity Type Activity Date Activity User E-sign Co-sign Detail Recorded Client Recorded Date Recorded By Document 03/19/22 09:36 BMF [id number] 03/19/22 09:37 BMF Edit Result 03/19/22 09:36 BMF (1) [id number] 03/20/22 06:59 PL Document 03/26/22 11:45 DL [id number] 03/26/22 11:55 DL Edit Result 03/26/22 11:45 DL (2) [id number] 03/27/22 07:45 PL Document 04/02/22 12:10 DL [id number] 04/02/22 12:28 DL Edit Result 04/02/22 12:10 DL (3) [id number] 04/03/22 07:27 PL Document 04/09/22 09:47 BMF [id number] 04/09/22 09:48 BMF (1) #3 left heel cluster - NPWT Application Charge NPWT & Debridement => NPWT </= 50 sq cm (nc) => ($) (2) #3 left heel cluster - NPWT Application Charge NPWT </= 50 sq cm => NPWT & Debridement ($) => (nc) (3) #3 left heel cluster - NPWT Application Charge NPWT </= 50 sq cm => NPWT & Debridement ($) => (nc) 03/19/22 03/26/22 04/02/22 09:36 11:45 12:10 Wound Care Nurse 3 #5 left lateral heel incision -Ulcer Cleansing Rinsed/ Soap and Water Rinsed/ Irrigated with Irrigated with Saline Saline -Foul Odor after Cleansing No No No -Primary Dressing Applied NonAdherent Contact Layer, Other -Other Dressing BETADINE betadine betadine -Primary Dressing Covered/Secured with Dry Gauze & Dry Gauze & Dry Gauze & Roll Gauze, Roll Gauze, Roll Gauze, Secured with Secured with Secured with Tape Tape Tape -Other Covering ABD #3 left heel cluster -Ulcer Cleansing Rinsed/ Soap and Water Rinsed/ Irrigated with Irrigated with Saline Saline -Foul Odor after Cleansing No No No -Negative Pressure Wound Therapy Continue Continue Continue -Setting (mmHg) 150 150 150 -Negative Pressure is Continuous Continuous Continuous -Other Dressing -Primary Dressing Covered/Secured with Dry Gauze & Roll Gauze, Secured with Tape -Other Covering -NPWT Application Charge NPWT </= 50 sq NPWT & NPWT & cm ($) Debridement (nc Debridement (nc ) ) Left -Compression Wrap Kevin Wrap Kevin Wrap Treatment Response Procedure Procedure Procedure Tolerated Well Tolerated Well Tolerated Well Pain Scale: 0-10 Numeric Is Patient Pain Free? Yes Yes Yes WC - Visit Discharge Discharge Condition Stable Stable Stable Ambulatory Status Wheelchair Wheelchair Wheelchair Transportation [facility] Type [facility]ent[facility] Penitentiary Care [facility] Care Facility Facility Facility Notes: dressing applied per Maryanne barnhart today Orders Sent Yes Yes 04/09/22 09:47 Wound Care Nurse 3 #5 left lateral heel incision -Ulcer Cleansing Rinsed/ Irrigated with Saline -Foul Odor after Cleansing No -Primary Dressing Applied -Other Dressing betadine -Primary Dressing Covered/Secured with Dry Gauze & Roll Gauze, Secured with Tape -Other Covering #3 left heel cluster -Ulcer Cleansing Rinsed/ Irrigated with Saline -Foul Odor after Cleansing No -Negative Pressure Wound Therapy -Setting (mmHg) -Negative Pressure is -Other Dressing moist to dry -Primary Dressing Covered/Secured with Dry Gauze & Roll Gauze, Secured with Tape -Other Covering heel hat -NPWT Application Charge Left -Compression Wrap Kevin Wrap Treatment Response Pain Scale: 0-10 Numeric Is Patient Pain Free? Yes WC - Visit Discharge Discharge Condition Stable Ambulatory Status Wheelchair Transportation Facility Type Chief Green Officer Care Facility Notes: Orders Sent Assessment/Plan Assessment/Plan (1) Non-pressure chronic ulcer of other part of left foot with necrosis of bone: CODE(S): L97.524 - Non-pressure chronic ulcer of other part of left foot with necrosis of bone PLAN: Patient examined evaluated, all fine discussed with patient in detail. Patient underwent partial calcanectomy due to diffuse osteomyelitis of his left calcaneus confirmed on MRI and pathology. Patient is high risk for proximal amputation and understands this. If there are any signs of wound worsening to his left wound will likely proceed with below- knee amputation but at this time patient appears to be progressing well. Patient transferred from one SNF to another due to smoking limitations (ultimately) Excisional debridement down to level of muscle was performed in the left calcaneus. All nonviable tissue was removed using 5 mm dermal curette. No topical anesthesia or anesthesia due to neuropathy. Hemostasis obtained with light compression. Pre and postdebridement measurements document nursing notes. Patient tolerated procedure well. Will continue nonweightbearing and wound VAC to left lower extremity. These dressing changes will now be performed by home health care. left lateral foot incision well healed at this time Patient will follow up in 1 week at which time we will continue to evaluate and will consider advanced wound care therapy. At this time his blood sugar is well controlled confirmed by hemoglobin A1c of 6.7. We will consider consider additional nutritional supplementation. Wound improving well at this time. (2) Osteomyelitis of foot, left, acute: CODE(S): M86.172 - Other acute osteomyelitis, left ankle and foot
== END 2022-04-17 23:59 | disposition home or self-care (01) ==
LOC: WC 09:15
PROVIDERS: PCP Internal Medicine; Referring Provider Podiatrist Foot & Ankle Surgery; Visit Provider Podiatrist
DX: M86.172 Other acute osteomyelitis, left ankle and foot (principal); L97.524 Non-pressure chronic ulcer of other part of left foot with necrosis of bone; B96.1 Klebsiella pneumoniae [K. pneumoniae] as the cause of diseases classified elsewhere; B96.5 Pseudomonas (aeruginosa) (mallei) (pseudomallei) as the cause of diseases classified elsewhere
CPT/HCPCS: 11043; 36415; 80048; 85025; 85652; 97605; 99214; G0463

== ENCOUNTER 2022-05-14 09:00 | Outpatient (RCR) | payer MEDICARE, BC, SELFPAY ==
[2022-04-18 00:23] VITALS: BP 136/70; PULSE 75; RESP 18; TEMP 36; BMI 33.7
[2022-04-23 09:21] VITALS: BP 128/79; PULSE 97; RESP 16; TEMP 36.3; BMI 33.7
--- NOTE | 2022-04-23 10:24 | PCM.WC.PN ---
History of Present Illness Date of Service: 04/23/22 Chief Complaint: Osteomyelitis and chronic delayed healing ulcer, left foot History of Wound: Patient presents today 2 weeks post op from a left partial calcanectomy. Patient denies constitutional symptoms. Patient's pain is well controlled at this time. Patient is maintaining a nonweightbearing status in a [facility] facility receiving IV Zosyn via PICC line. Patient had MRI findings suggestive of osteomyelitis diffusely involving the calcaneus cultures demonstrated growth of Klebsiella pneumonia and Pseudomonas aeruginosa sensitive to Zosyn. Antibiotics will be terminated this . Objective Data Objective Data Vital Signs: Vital Signs Temp Pulse Resp BP O2 Del Method 97.4 F L 97 16 128/79 H Room Air 04/23/22 09:21 04/23/22 09:21 04/23/22 09:21 04/23/22 09:21 04/23/22 09:21 Oxygen Delivery Method Room Air Body Mass Index (BMI) 33.7 Physical Exam Narrative Neurovascular status unchanged from previous evaluation. Lateral skin incision appears to be well approximated with intact live. Some maceration to the periincisional area. Full-thickness wound down to calcaneal bone resection site noted to the plantar heel. This demonstrates mild serosanguineous drainage. Mild maceration to the periwound area. No acute signs of infection. Musculoskeletal no pain with calf squeeze or palpation popliteal fossa. No evidence of DVT on exam. Muscular strength full to bilateral lower extremity compartments. Debridement Note Debridement Note Post-Debridement Measurements and Additional Note: Post-Debridement Measurements/Treatment - Nurse 1 - General Ulcer Assessment Start: 04/23/22 09:20 Freq: Status: Active Protocol: [email or web address] Activity Type Activity Date Activity User E-sign Co-sign Detail Recorded Client Recorded Date Recorded By Document 04/23/22 09:21 [facility] [id number] 04/23/22 09:34 [facility] 04/23/22 09:21 - Today's Visit Information Type of service Follow-up Visit (Physician/DIRECTOR [employer] ) Arrival Mode Wheelchair Transfer Assistance Other Transfer Assist (Other) stand by Patient Identification Verified (Name & Yes ) Patient Requires Transmission-Based No Precautions Height and Weight Body Mass Index (BMI) 33.7 BMI Classification Obese Vital Signs Temperature (97.8 F-99.1 F) 97.4 F L Temperature Source Temporal Pulse Rate (60-100) 97 Pulse Location Monitor Respiratory Rate (12-18) 16 Respiratory rate source Observation Oxygen Delivery Method Room Air Blood Pressure (90/60-120/80) 128/79 H Blood Pressure Mean (mm Hg) 95 Source Monitor Position Sitting Blood Pressure Location Left Arm History Since Last Visit- (Skip if this is Patient's initial visit) Have you changed medications since your No last visit? Any new allergies or adverse reactions No Had a fall/change in ADL's that may No increase risk of falls Signs or symptoms of abuse and/or No neglect since last visit Have you been in the hospital since your No last visit? Has dressing in place as prescribed Yes Has compression in place as prescribed Yes Has offloadiing in place as prescribed Yes Experienced any changes in pain level or No management Right Footwear Regular Shoe Other Footwear surgical bootie to left foot Pain Scale: 0-10 Numeric Is Patient Pain Free? Yes WC - Nurse 1 - General Ulcer Measurement Start: 04/23/22 09:20 Freq: Status: Active Protocol: Activity Type Activity Date Activity User E-sign Co-sign Detail Recorded Client Recorded Date Recorded By Document 04/23/22 09:21 [facility] [id number] 04/23/22 09:34 [facility] 04/23/22 09:21 Wound Center Nurse 1 #3 left heel cluster -Combined with other wound No -Current Size (cm) - Length 0.8 -Current Size (cm) - Width 0.8 -Current Size (cm) - Depth 1.6 -Total Square Cm 0.64 -Date of Last Picture (Recall this 04/23/22 field) -Photo Taken Yes -Epithelialization None Present -Tunneling No -Undermining/Tunneling No -Circular Undermining No -Exudate Amt Medium -Exudate Type Serosanguineous -Wound Margin Distinct, Outline Attached -Texture (Margaret-wound Skin Appearance) Assessed,Callus ,Localized Edema,Scarring -Moisture (Margaret-wound Skin Appearance) Assessed, Maceration,Dry/ Scaly -Color (Margaret-wound Skin Appearance) Assessed -Temperature (Margaret-wound Skin No Abnormality Appearance) (Pt Warm) -Tenderness on Palpation (Margaret-wound No Skin Appearance) -Ulcer Cleansing Soap and Water -Foul Odor after Cleansing No -Anesthetic Used 5% Lidocaine Gel WC - Nurse 2 - General Ulcer CM Notes Start: 04/23/22 09:20 Freq: Status: Active Protocol: Activity Type Activity Date Activity User E-sign Co-sign Detail Recorded Client Recorded Date Recorded By Document 04/23/22 10:11 DANIEL [id number] 04/23/22 10:14 DANIEL 04/23/22 10:11 Wound Center Nurse 2 -Time 10:11 -Correct Patient Yes -Correct Side, Site, Position Yes -Correct Procedure Yes -Procedure Performed Yes -Type of Procedure Debridement -Clinical Debridement Muscle / Fascia -Tissue Removed Muscle -Post Debridement (cm) - Length 0.8 -Post Debridement (cm) - Width 0.9 -Post Debridement (cm) - Depth 1.6 -Total Square (Post) (cm) 0.72 -Area of Debridement (cm) - Length 0.8 -Area of Debridement (cm) - Width 0.9 -Total Square (Area) (cm) 0.72 -Tunneling No -Undermining/Tunneling No -Circular Undermining No -Wound/Ulcer Outcome Not Healed -Ulcer Cleansing Rinsed/ Irrigated with Saline -Foul Odor after Cleansing No -Bioengineered Tissue No -Bleeding Controlled with Pressure -Treatment Response Procedure Tolerated Well -Offloading Yes -Type of Offloading Camwalker -Assistive Device(s) Wheelchair -Debridement - Muscle / Fascia, 1st Yes 20sq cm Pain Scale: 0-10 Numeric Is Patient Pain Free? Yes Assessment/Plan Assessment/Plan (1) Non-pressure chronic ulcer of other part of left foot with necrosis of bone: CODE(S): L97.524 - Non-pressure chronic ulcer of other part of left foot with necrosis of bone PLAN: Patient examined evaluated, all fine discussed with patient in detail. Patient underwent partial calcanectomy due to diffuse osteomyelitis of his left calcaneus confirmed on MRI and pathology. Patient is high risk for proximal amputation and understands this. If there are any signs of wound worsening to his left wound will likely proceed with below-knee amputation but at this time patient appears to be progressing well. Excisional debridement down to level of muscle was performed in the left calcaneus. All nonviable tissue was removed using 5 mm dermal curette. No topical anesthesia or anesthesia due to neuropathy. Hemostasis obtained with light compression. Pre and postdebridement measurements document nursing notes. Patient tolerated procedure well. Will continue nonweightbearing and wound VAC to left lower extremity. Patient will complete his course of IV antibiotics on 04/25/2022. Which time you likely be discharged from [facility] facility. Talked with patient in detail that he has to maintain a nonweightbearing status at home and continue wound VAC with home health care dressing changes. Otherwise he will demonstrate delays in wound healing with potential lack of healing. This was discussed with him in great detail. left lateral foot incision well healed at this time Patient will follow up in 1 week at which time we will continue to evaluate and will consider advanced wound care therapy. At this time his blood sugar is well controlled confirmed by hemoglobin A1c of 6.7. We will consider consider additional nutritional supplementation. (2) Osteomyelitis of foot, left, acute: CODE(S): M86.172 - Other acute osteomyelitis, left ankle and foot
[2022-04-30 09:51] VITALS: BP 130/66; PULSE 53; RESP 16; TEMP 36.2; BMI 33.7
--- NOTE | 2022-04-30 10:06 | PN.PCM_ITS ---
History of Present Illness Date of Service: 04/30/22 Chief Complaint: Osteomyelitis and chronic delayed healing ulcer, left foot History of Wound: Patient presents today 2 weeks post op from a left partial calcanectomy. Patient denies constitutional symptoms. Patient's pain is well controlled at this time. Patient is maintaining a nonweightbearing status in a [facility] facility receiving IV Zosyn via PICC line. Patient had MRI findings suggestive of osteomyelitis diffusely involving the calcaneus cultures demonstrated growth of Klebsiella pneumonia and Pseudomonas aeruginosa sensitive to Zosyn. Antibiotics will be terminated this . Objective Data Objective Data Vital Signs: Vital Signs Temp Pulse Resp BP O2 Del Method 97.2 F L 53 L 16 130/66 H Room Air 04/30/22 09:51 04/30/22 09:51 04/30/22 09:51 04/30/22 09:51 04/30/22 09:51 Oxygen Delivery Method Room Air Body Mass Index (BMI) 33.7 Physical Exam Narrative Neurovascular status unchanged from previous evaluation. Lateral skin incision appears to be well approximated with intact live. Some maceration to the periincisional area. Full-thickness wound down to calcaneal bone resection site noted to the plantar heel. This demonstrates mild ser osanguineous drainage. Mild maceration to the periwound area. No acute signs of infection. Musculoskeletal no pain with calf squeeze or palpation popliteal fossa. No evidence of DVT on exam. Muscular strength full to bilateral lower extremity compartments. Debridement Note Debridement Note Post-Debridement Measurements and Additional Note: Post-Debridement Measurements/Treatment - Nurse 1 - General Ulcer Assessment Start: 04/23/22 09:20 Freq: Status: Active Protocol: MATEUSEXAnastasia Activity Type Activity Date Activity User E-sign Co-sign Detail Recorded Client Recorded Date Recorded By Document 04/23/22 09:[address] [facility] [id number] 04/23/22 09:34 BMF Document 04/30/22 09:51 MW [id number] 04/30/22 09:54 MW 04/23/22 04/30/22 09:21 09:51 - Today's Visit Information Type of service Follow-up Visit Follow-up Visit (Physician/MILITARY TECHNICIAN (Physician/MILITARY TECHNICIAN ) ) Arrival Mode Wheelchair Wheelchair Transfer Assistance Other None Transfer Assist (Other) stand by Accompanied by self Patient Identification Verified (Name & Yes Yes ) Patient Requires Transmission-Based No No Precautions Safety Precautions NA Finger Stick Blood Sugar(mg/dl) (if 112 indicated): Blood Sugar Stated by Patient Height and Weight Body Mass Index (BMI) 33.7 33.7 BMI Classification Obese Obese Vital Signs Temperature (97.8 F-99.1 F) 97.4 F L 97.2 F L Temperature Source Temporal Temporal Pulse Rate (60-100) 97 53 L Pulse Location Monitor Apical Respiratory Rate (12-18) 16 16 Respiratory rate source Observation Observation Oxygen Delivery Method Room Air Room Air Blood Pressure (90/60-120/80) 128/79 H 130/66 H Blood Pressure Mean (mm Hg) 95 87 Source Monitor Monitor Position Sitting Sitting Blood Pressure Location Left Arm Left Arm History Since Last Visit- (Skip if this is Patient's initial visit) Have you changed medications since your No No last visit? Any new allergies or adverse reactions No No Had a fall/change in ADL's that may No No increase risk of falls Signs or symptoms of abuse and/or No No neglect since last visit Have you been in the hospital since your No No last visit? Has dressing in place as prescribed Yes Yes Has compression in place as prescribed Yes Yes Has offloadiing in place as prescribed Yes N/A Experienced any changes in pain level or No No management Left Footwear Removable Cast Walker/Walking Boot Right Footwear Regular Shoe Regular Shoe Other Footwear surgical bootie to left foot Pain Scale: 0-10 Numeric Is Patient Pain Free? Yes Yes WC - Nurse 1 - General Ulcer Measurement Start: 04/23/22 09:20 Freq: Status: Active Protocol: Activity Type Activity Date Activity User E-sign Co-sign Detail Recorded Client Recorded Date Recorded By Document 04/23/22 09:[address] [facility] [id number] 04/23/22 09:[address] [facility] Document 04/30/22 09:51 [id number] 04/30/22 09:54 04/23/22 04/30/22 09:21 09:51 Wound Center Nurse 1 #3 left heel cluster -Combined with other wound No No -Current Size (cm) - Length 0.8 1.0 -Current Size (cm) - Width 0.8 0.8 -Current Size (cm) - Depth 1.6 1.5 -Total Square Cm 0.64 0.80 -Date of Last Picture (Recall this 04/23/22 04/30/22 field) -Photo Taken Yes Yes -Epithelialization None Present Small 1-33% -Tunneling No No -Undermining/Tunneling No No -Circular Undermining No No -Exudate Amt Medium Medium -Exudate Type Serosanguineous Serosanguineous -Wound Margin Distinct, Distinct, Outline Outline Attached Attached -Granulation Amt Small (1-33%) -Granulation Quality [place] -Slough/Fibrin No -Necrotic Tissue Type Adherent Slough -Structure Exposed N/A -Texture (Margaret-wound Skin Appearance) Assessed,Callus Assessed, ,Localized Scarring Edema,Scarring -Moisture (Margaret-wound Skin Appearance) Assessed, Assessed, Maceration,Dry/ Maceration Scaly -Color (Margaret-wound Skin Appearance) Assessed Assessed, Hemosiderin Staining -Temperature (Margaret-wound Skin No Abnormality No Abnormality Appearance) (Pt Warm) (Pt Warm) -Tenderness on Palpation (Margaret-wound No No Skin Appearance) -Ulcer Cleansing Soap and Water Soap and Water -Foul Odor after Cleansing No No -Anesthetic Used 5% Lidocaine 5% Lidocaine Gel Gel Lower Limb Edema Present Yes Left Calf (cm) 42.0 Left Ankle (cm) 22.5 WC - Nurse 2 - General Ulcer CM Notes Start: 04/23/22 09:20 Freq: Status: Active Protocol: Activity Type Activity Date Activity User E-sign Co-sign Detail Recorded Client Recorded Date Recorded By Document 04/23/22 10:11 DANIEL [id number] 04/23/22 10:14 JF Document 04/30/22 10:03 [id number] 04/30/22 10:05 Edit Result 04/30/22 10:03 DANIEL (1) [id number] 04/30/22 10:06 DANIEL (1) #3 left heel cluster - Post Debridement (cm) - Depth 1.5 => 1.6 04/23/22 04/30/22 10:11 10:03 Wound Center Nurse 2 #3 left heel cluster -Time 10:11 10:04 -Correct Patient Yes Yes -Correct Side, Site, Position Yes Yes -Correct Procedure Yes Yes -Procedure Performed Yes Yes -Type of Procedure Debridement Debridement -Clinical Debridement Muscle / Fascia Subcutaneous -Tissue Removed Muscle Subcutaneous -Post Debridement (cm) - Length 0.8 1.0 -Post Debridement (cm) - Width 0.9 0.9 -Post Debridement (cm) - Depth 1.6 1.6 -Total Square (Post) (cm) 0.72 0.90 -Area of Debridement (cm) - Length 0.8 1.0 -Area of Debridement (cm) - Width 0.9 0.9 -Total Square (Area) (cm) 0.72 0.90 -Tunneling No No -Undermining/Tunneling No No -Circular Undermining No No -Wound/Ulcer Outcome Not Healed Not Healed -Ulcer Cleansing Rinsed/ Rinsed/ Irrigated with Irrigated with Saline Saline -Foul Odor after Cleansing No No -Bioengineered Tissue No No -Bleeding Controlled with Pressure Pressure -Treatment Response Procedure Procedure Tolerated Well Tolerated Well -Offloading Yes Yes -Type of Offloading Camwalker Surgical Shoe -Assistive Device(s) Wheelchair Wheelchair -Debridement - Subq, 1st 20sq cm Yes -Debridement - Muscle / Fascia, 1st Yes 20sq cm Pain Scale: 0-10 Numeric Is Patient Pain Free? Yes Yes - Nurse 3 - General Ulcer D/C NN Start: 04/23/22 09:20 Freq: Status: Active Protocol: Activity Type Activity Date Activity User E-sign Co-sign Detail Recorded Client Recorded Date Recorded By Document 04/23/22 14:27 AK [id number] 04/23/22 14:28 AK Edit Result 04/23/22 14:27 AK (1) [id number] 04/24/22 07:10 PL (1) #3 left heel cluster - NPWT Application Charge NPWT </= 50 sq cm => NPWT & Debridement ($) => (nc) 04/23/22 14:27 Wound Care Nurse 3 #3 left heel cluster -Ulcer Cleansing Soap and Water -Foul Odor after Cleansing No -Negative Pressure Wound Therapy Continue -Setting (mmHg) 150 -Negative Pressure is Continuous -NPWT Application Charge NPWT & Debridement (nc ) Treatment Response Procedure Tolerated Well Pain Scale: 0-10 Numeric Is Patient Pain Free? Yes WC - Visit Discharge Discharge Condition Stable Ambulatory Status Ambulatory Transportation Private Auto Facility Type Injection Molding Technician Care Facility Orders Sent Yes Assessment/Plan Assessment/Plan (1) Non-pressure chronic ulcer of other part of left foot with necrosis of bone: CODE(S): L97.524 - Non-pressure chronic ulcer of other part of left foot with necrosis of bone PLAN: Patient examined evaluated, all fine discussed with patient in detail. Patient underwent partial calcanectomy due to diffuse osteomyelitis of his left calcaneus confirmed on MRI and pathology. Patient is high risk for proximal amputation and understands this. If there are any signs of wound worsening to his left wound will likely proceed with below- knee amputation but at this time patient appears to be progressing well. Patient no longer in nursing facility and is at home. Excisional debridement down to level of muscle was performed in the left calcaneus. All nonviable tissue was removed using 5 mm dermal curette. No topical anesthesia or anesthesia due to neuropathy. Hemostasis obtained with light compression. Pre and postdebridement measurements document nursing notes. Patient tolerated procedure well. Will continue nonweightbearing and wound VAC to left lower extremity. Patient will complete his course of IV antibiotics on 04/25/2022. Which time you likely be discharged from [facility]. Talked with patient in detail that he has to maintain a nonweightbearing status at home and continue wound VAC with home health care dressing changes. Otherwise he will demonstrate delays in wound healing with potential lack of healing. This was discussed with him in great detail. left lateral foot incision well healed at this time Patient will follow up in 1 week at which time we will continue to evaluate and will consider advanced wound care therapy. At this time his blood sugar is well controlled confirmed by hemoglobin A1c of 6.7. We will consider consider additional nutritional supplementation. (2) Osteomyelitis of foot, left, acute: CODE(S): M86.172 - Other acute osteomyelitis, left ankle and foot
[2022-05-07 09:32] VITALS: BP 135/64; PULSE 53; RESP 20; TEMP 35.9; BMI 33.7
[2022-05-14 09:12] VITALS: BP 122/69; PULSE 59; RESP 16; TEMP 35.7; BMI 33.7
--- NOTE | 2022-05-14 10:23 | PN.PCM_ITS ---
History of Present Illness Date of Service: 05/14/22 Chief Complaint: Osteomyelitis and chronic delayed healing ulcer, left foot History of Wound: Patient presents today 2 weeks post op from a left partial calcanectomy. Patient denies constitutional symptoms. Patient's pain is well controlled at this time. Patient is maintaining a nonweightbearing status in a long-term facility receiving IV Zosyn via PICC line. Patient had MRI findings suggestive of osteomyelitis diffusely involving the calcaneus cultures demonstrated growth of Klebsiella pneumonia and Pseudomonas aeruginosa sensitive to Zosyn. Antibiotics will be terminated this . Objective Data Objective Data Vital Signs: Vital Signs Temp Pulse Resp BP O2 Del Method 96.3 F L 59 L 16 122/69 H Room Air 05/14/22 09:12 05/14/22 09:12 05/14/22 09:12 05/14/22 09:12 05/14/22 09:12 Oxygen Delivery Method Room Air Body Mass Index (BMI) 33.7 Physical Exam Narrative Neurovascular status unchanged from previous evaluation. Lateral skin incision appears to be well approximated with intact live. Some maceration to the periincisional area. Full-thickness wound down to calcaneal bone resection site noted to the plantar heel. This demonstrates mild ser osanguineous drainage. Mild maceration to the periwound area. No acute signs of infection. Musculoskeletal no pain with calf squeeze or palpation popliteal fossa. No evidence of DVT on exam. Muscular strength full to bilateral lower extremity compartments. Debridement Note Debridement Note Post-Debridement Measurements and Additional Note: Post-Debridement Measurements/Treatment JANESSA - Nurse 1 - General Ulcer Assessment Start: 04/23/22 09:20 Freq: Status: Active Protocol: EVELYN Activity Type Activity Date Activity User E-sign Co-sign Detail Recorded Client Recorded Date Recorded By Document 04/23/22 09:21 BMF [id number] 04/23/22 09:34 BMF Document 04/30/22 09:51 MW [id number] 04/30/22 09:54 MW Document 05/07/22 09:32 DL [id number] 05/07/22 09:37 DL Document 05/14/22 09:12 MW [id number] 05/14/22 09:26 MW 04/23/22 04/30/22 05/07/22 09:21 09:51 09:32 WC - Today's Visit Information Type of service Follow-up Visit Follow-up Visit Nurse-only (Physician/LINUX UNIX SYSTEM ADMINISTRATOR (Physician/LINUX UNIX SYSTEM ADMINISTRATOR Visit ) ) Arrival Mode Wheelchair Wheelchair Wheelchair Transfer Assistance Other None Manual Transfer Assist (Other) stand by x2 Accompanied by self Patient Identification Verified (Name & Yes Yes Yes ) Patient Requires Transmission-Based No No No Precautions Safety Precautions NA Finger Stick Blood Sugar(mg/dl) (if 112 56 indicated): Blood Sugar Stated by Stated by Patient Patient Height and Weight Body Mass Index (BMI) 33.7 33.7 33.7 BMI Classification Obese Obese Obese Vital Signs Temperature (97.8 F-99.1 F) 97.4 F L 97.2 F L 96.7 F L Temperature Source Temporal Temporal Temporal Pulse Rate (60-100) 97 53 L 53 L Pulse Location Monitor Apical Monitor Respiratory Rate (12-18) 16 16 20 H Respiratory rate source Observation Observation Observation Oxygen Delivery Method Room Air Room Air Blood Pressure (90/60-120/80) 128/79 H 130/66 H 135/64 H Blood Pressure Mean (mm Hg) 95 87 87 Source Monitor Monitor Monitor Position Sitting Sitting Blood Pressure Location Left Arm Left Arm History Since Last Visit- (Skip if this is Patient's initial visit) Have you changed medications since your No No No last visit? Any new allergies or adverse reactions No No No Had a fall/change in ADL's that may No No No increase risk of falls Signs or symptoms of abuse and/or No No No neglect since last visit Have you been in the hospital since your No No No last visit? Has dressing in place as prescribed Yes Yes Yes Has compression in place as prescribed Yes Yes Yes Has offloadiing in place as prescribed Yes N/A Yes Experienced any changes in pain level or No No No management Left Footwear Removable Cast Removable Cast Walker/Walking Walker/Walking Boot Boot Right Footwear Regular Shoe Regular Shoe Other Footwear surgical bootie to left foot Pain Scale: 0-10 Numeric Is Patient Pain Free? Yes Yes Yes 05/14/22 09:12 WC - Today's Visit Information Type of service Follow-up Visit (Physician/LINUX UNIX SYSTEM ADMINISTRATOR ) Arrival Mode Wheelchair Transfer Assistance None Transfer Assist (Other) Accompanied by self Patient Identification Verified (Name & Yes ) Patient Requires Transmission-Based No Precautions Safety Precautions Fall Prevention Finger Stick Blood Sugar(mg/dl) (if 211 indicated): Blood Sugar Stated by Patient Height and Weight Body Mass Index (BMI) 33.7 BMI Classification Obese Vital Signs Temperature (97.8 F-99.1 F) 96.3 F L Temperature Source Temporal Pulse Rate (60-100) 59 L Pulse Location Monitor Respiratory Rate (12-18) 16 Respiratory rate source Observation Oxygen Delivery Method Room Air Blood Pressure (90/60-120/80) 122/69 H Blood Pressure Mean (mm Hg) 86 Source Monitor Position Sitting Blood Pressure Location Left Arm History Since Last Visit- (Skip if this is Patient's initial visit) Have you changed medications since your No last visit? Any new allergies or adverse reactions No Had a fall/change in ADL's that may No increase risk of falls Signs or symptoms of abuse and/or No neglect since last visit Have you been in the hospital since your No last visit? Has dressing in place as prescribed Yes Has compression in place as prescribed Yes Has offloadiing in place as prescribed Yes Experienced any changes in pain level or No management Left Footwear Other Footwear (Comment) Right Footwear Regular Shoe Other Footwear heel boot left foot Pain Scale: 0-10 Numeric Is Patient Pain Free? No WC - Nurse 1 - General Ulcer Measurement Start: 04/23/22 09:20 Freq: Status: Active Protocol: Activity Type Activity Date Activity User E-sign Co-sign Detail Recorded Client Recorded Date Recorded By Document 04/23/22 09:21 [facility] [id number] 04/23/22 09:34 BM Document 04/30/22 09:51 MW [id number] 04/30/22 09:54 MW Document 05/07/22 09:32 DL [id number] 05/07/22 09:37 DL Document 05/14/22 09:12 MW [id number] 05/14/22 09:26 MW 04/23/22 04/30/22 05/07/22 09:21 09:51 09:32 Wound Center Nurse 1 #3 left heel cluster -Combined with other wound No No -Current Size (cm) - Length 0.8 1.0 1 -Current Size (cm) - Width 0.8 0.8 0.8 -Current Size (cm) - Depth 1.6 1.5 1.5 -Total Square Cm 0.64 0.80 0.8 -Date of Last Picture (Recall this 04/23/22 04/30/22 field) -Photo Taken Yes Yes No -Epithelialization None Present Small 1-33% -Tunneling No No -Undermining/Tunneling No No -Circular Undermining No No -Exudate Amt Medium Medium Large -Exudate Type Serosanguineous Serosanguineous Serosanguineous -Wound Margin Distinct, Distinct, Distinct, Outline Outline Outline Attached Attached Attached -Granulation Amt Small (1-33%) Small (1-33%) -Granulation Quality Zap Red -Slough/Fibrin No -Necrosis Amt None Present (0 %) -Necrotic Tissue Type Adherent Slough -Structure Exposed N/A N/A -Texture (Margaret-wound Skin Appearance) Assessed,Callus Assessed, Scarring ,Localized Scarring Edema,Scarring -Moisture (Margaret-wound Skin Appearance) Assessed, Assessed, Maceration Maceration,Dry/ Maceration Scaly -Color (Margaret-wound Skin Appearance) Assessed Assessed, Hemosiderin Hemosiderin Staining Staining -Temperature (Margaret-wound Skin No Abnormality No Abnormality No Abnormality Appearance) (Pt Warm) (Pt Warm) (Pt Warm) -Tenderness on Palpation (Margaret-wound No No No Skin Appearance) -Ulcer Cleansing Soap and Water Soap and Water Soap and Water -Foul Odor after Cleansing No No No -Anesthetic Used 5% Lidocaine 5% Lidocaine Gel Gel -Wound Comment(s) Betadine to periulcer Lower Limb Edema Present Yes Left Calf (cm) 42.0 Left Ankle (cm) 22.5 Left Foot (cm) 05/14/22 09:12 Wound Center Nurse 1 #3 left heel cluster -Combined with other wound No -Current Size (cm) - Length 1.0 -Current Size (cm) - Width 1.0 -Current Size (cm) - Depth 1.5 -Total Square Cm 1.00 -Date of Last Picture (Recall this 05/14/22 field) -Photo Taken Yes -Epithelialization Small 1-33% -Tunneling No -Undermining/Tunneling No -Circular Undermining No -Exudate Amt Small -Exudate Type Serosanguineous -Wound Margin Distinct, Outline Attached -Granulation Amt Medium (34-66%) -Granulation Quality Zap -Slough/Fibrin Yes -Necrosis Amt Small (1-33%) -Necrotic Tissue Type Adherent Slough -Structure Exposed N/A -Texture (Margaret-wound Skin Appearance) Assessed, Localized Edema -Moisture (Margaret-wound Skin Appearance) Assessed, Maceration,Dry/ Scaly -Color (Margaret-wound Skin Appearance) Assessed, Hemosiderin Staining -Temperature (Margaret-wound Skin No Abnormality Appearance) (Pt Warm) -Tenderness on Palpation (Margaret-wound No Skin Appearance) -Ulcer Cleansing Soap and Water -Foul Odor after Cleansing No -Anesthetic Used 5% Lidocaine Gel -Wound Comment(s) Lower Limb Edema Present Yes Left Calf (cm) Left Ankle (cm) 43.5 Left Foot (cm) 23.5 WC - Nurse 2 - General Ulcer CM Notes Start: 04/23/22 09:20 Freq: Status: Active Protocol: Activity Type Activity Date Activity User E-sign Co-sign Detail Recorded Client Recorded Date Recorded By Document 04/23/22 10:11 [id number] 04/23/22 10:14 Document 04/30/22 10:03 [id number] 04/30/22 10:05 Edit Result 04/30/22 10:03 (1) [id number] 04/30/22 10:06 JF Edit Result 04/30/22 10:03 (2) [id number] 04/30/22 10:07 Document 05/14/22 09:36 [id number] 05/14/22 09:40 JF Edit Result 05/14/22 09:36 (3) [id number] 05/14/22 09:43 JF (1) #3 left heel cluster - Post Debridement (cm) - Depth 1.5 => 1.6 (2) #3 left heel cluster - Clinical Debridement Subcutaneous => Muscle / Fascia - Tissue Removed Subcutaneous => Subcutaneous, => Muscle,Fascia - Debridement - Subq, 1st 20sq cm Yes => No - Debridement - Muscle / Fascia, 1st => Yes 20sq cm (3) #3 left heel cluster - Clinical Debridement Subcutaneous => Muscle / Fascia - Tissue Removed Subcutaneous => Muscle - Debridement - Subq, 1st 20sq cm Yes => - Debridement - Muscle / Fascia, 1st => Yes 20sq cm 04/23/22 04/30/22 05/14/22 10:11 10:03 09:36 Wound Center Nurse 2 #3 left heel cluster -Time 10:11 10:04 09:37 -Correct Patient Yes Yes Yes -Correct Side, Site, Position Yes Yes Yes -Correct Procedure Yes Yes Yes -Procedure Performed Yes Yes Yes -Type of Procedure Debridement Debridement Debridement -Clinical Debridement Muscle / Fascia Muscle / Fascia Muscle / Fascia -Tissue Removed Muscle Subcutaneous, Muscle Muscle,Fascia -Post Debridement (cm) - Length 0.8 1.0 1.1 -Post Debridement (cm) - Width 0.9 0.9 1.0 -Post Debridement (cm) - Depth 1.6 1.6 1.5 -Total Square (Post) (cm) 0.72 0.90 1.10 -Area of Debridement (cm) - Length 0.8 1.0 1.1 -Area of Debridement (cm) - Width 0.9 0.9 1.0 -Total Square (Area) (cm) 0.72 0.90 1.10 -Tunneling No No No -Undermining/Tunneling No No No -Circular Undermining No No No -Wound/Ulcer Outcome Not Healed Not Healed Not Healed -Ulcer Cleansing Rinsed/ Rinsed/ Rinsed/ Irrigated with Irrigated with Irrigated with Saline Saline Saline -Foul Odor after Cleansing No No No -Bioengineered Tissue No No No -Bleeding Controlled with Pressure Pressure Pressure -Treatment Response Procedure Procedure Procedure Tolerated Well Tolerated Well Tolerated Well -Offloading Yes Yes Yes -Type of Offloading Camwalker Surgical Shoe Surgical Shoe -Assistive Device(s) Wheelchair Wheelchair -Debridement - Subq, 1st 20sq cm No -Debridement - Muscle / Fascia, 1st Yes Yes Yes 20sq cm Pain Scale: 0-10 Numeric Is Patient Pain Free? Yes Yes Yes WC - Nurse 3 - General Ulcer D/C NN Start: 04/23/22 09:20 Freq: Status: Active Protocol: Activity Type Activity Date Activity User E-sign Co-sign Detail Recorded Client Recorded Date Recorded By Document 04/23/22 14:27 DAVID [id number] 04/23/22 14:28 AK Edit Result 04/23/22 14:27 AK (1) [id number] 04/24/22 07:10 PL Document 04/30/22 10:18 MW [id number] 04/30/22 10:21 MW Document 05/07/22 09:32 DL [id number] 05/07/22 09:37 DL Document 05/14/22 09:50 MW [id number] 05/14/22 09:51 MW (1) #3 left heel cluster - NPWT Application Charge NPWT </= 50 sq cm => NPWT & Debridement ($) => (nc) 04/23/22 04/30/22 05/07/22 14:27 10:18 09:32 Wound Care Nurse 3 #3 left heel cluster -Ulcer Cleansing Soap and Water Rinsed/ Soap and Water Irrigated with Saline -Foul Odor after Cleansing No No No -Negative Pressure Wound Therapy Continue Start Continue -Setting (mmHg) 150 150 150 -Negative Pressure is Continuous Continuous Continuous -Other Dressing black foam -Primary Dressing Covered/Secured with -Other Covering -NPWT Application Charge NPWT & NPWT & NPWT </= 50 sq Debridement (nc Debridement (nc cm ($) ) ) Left -Lotion applied to leg before No compression wrap -Compression Wrap Kevin Wrap Treatment Response Procedure Procedure Procedure Tolerated Well Tolerated Well Tolerated Well Vital Signs Temperature (97.8 F-99.1 F) 96.7 F L Temperature Source Temporal Pulse Rate (60-100) 53 L Pulse Location Monitor Respiratory Rate (12-18) 20 H Respiratory rate source Observation Blood Pressure (90/60-120/80) 135/64 H Blood Pressure Mean (mm Hg) 87 Source Monitor Pain Scale: 0-10 Numeric Is Patient Pain Free? Yes Yes Yes Teaching: Wound Center Dressing Your Wound -Person Taught Patient -Teaching Method Discussion -Response to teaching Verbalize understanding Eliminating Foot Pressure -Person Taught Patient -Teaching Method Discussion -Response to teaching Verbalize understanding WC - Visit Discharge Discharge Condition Stable Stable Stable Ambulatory Status Ambulatory Ambulatory Wheelchair Transportation Private Auto Private Auto Private Auto Accompanied by self Medication Reconcilliation completed & No provided to patient/care provider Clinical Summary of Care Provided Yes Notes: wound vac applied per Lauren Sarabia RN Facility Type [facility] Facility Orders Sent Yes Yes 05/14/22 09:50 Wound Care Nurse 3 #3 left heel cluster -Ulcer Cleansing Rinsed/ Irrigated with Saline -Foul Odor after Cleansing No -Negative Pressure Wound Therapy N/A -Setting (mmHg) -Negative Pressure is -Other Dressing Betadine -Primary Dressing Covered/Secured with Dry Gauze & Roll Gauze, Secured with Tape -Other Covering ABD -NPWT Application Charge Left -Lotion applied to leg before No compression wrap -Compression Wrap Kevin Wrap Treatment Response Procedure Tolerated Well Vital Signs Temperature (97.8 F-99.1 F) Temperature Source Pulse Rate (60-100) Pulse Location Respiratory Rate (12-18) Respiratory rate source Blood Pressure (90/60-120/80) Blood Pressure Mean (mm Hg) Source Pain Scale: 0-10 Numeric Is Patient Pain Free? Yes Teaching: Wound Center Dressing Your Wound -Person Taught Patient -Teaching Method Discussion, Demonstration -Response to teaching Verbalize understanding Eliminating Foot Pressure -Person Taught -Teaching Method -Response to teaching WC - Visit Discharge Discharge Condition Stable Ambulatory Status Wheelchair Transportation Private Auto Accompanied by self Medication Reconcilliation completed & No provided to patient/care provider Clinical Summary of Care Provided Yes Notes: Dressing applied per Meme Sarabia RN Facility Type Orders Sent Assessment/Plan Assessment/Plan (1) Non-pressure chronic ulcer of other part of left foot with necrosis of bone: CODE(S): L97.524 - Non-pressure chronic ulcer of other part of left foot with necrosis of bone PLAN: Patient examined evaluated, all fine discussed with patient in detail. Patient underwent partial calcanectomy due to diffuse osteomyelitis of his left calcaneus confirmed on MRI and pathology. Patient is high risk for proximal amputation and understands this. If there are any signs of wound worsening to his left wound will likely proceed with below- knee amputation but at this time patient appears to be progressing well. Patient no longer in nursing facility and is at home. Excisional debridement down to level of muscle was performed in the left calcaneus. All nonviable tissue was removed using 5 mm dermal curette. No topical anesthesia or anesthesia due to neuropathy. Hemostasis obtained with light compression. Pre and postdebridement measurements document nursing notes. Patient tolerated procedure well. Will continue nonweightbearing assisted by wheelchair/knee scooter Patient off IV antibiotics - no residual signs of infection will d/c wound vac for 1 week and transition to betadine wet to dry dressings three times a week. left lateral foot incision well healed at this time Patient will follow up in 1 week at which time we will continue to evaluate and will consider advanced wound care therapy. At this time his blood sugar is well controlled confirmed by hemoglobin A1c of 6.7. We will consider consider additional nutritional supplementation. (2) Osteomyelitis of foot, left, acute: CODE(S): M86.172 - Other acute osteomyelitis, left ankle and foot
== END 2022-05-18 23:59 | disposition home or self-care (01) ==
LOC: WC 09:00
PROVIDERS: PCP Internal Medicine; Referring Provider Podiatrist Foot & Ankle Surgery; Visit Provider Podiatrist
DX: M86.172 Other acute osteomyelitis, left ankle and foot (principal); L97.524 Non-pressure chronic ulcer of other part of left foot with necrosis of bone; B96.1 Klebsiella pneumoniae [K. pneumoniae] as the cause of diseases classified elsewhere; B96.5 Pseudomonas (aeruginosa) (mallei) (pseudomallei) as the cause of diseases classified elsewhere
CPT/HCPCS: 11042; 11043; 97605

== ENCOUNTER 2022-06-04 09:00 | Outpatient (RCR) | payer MEDICARE, BC, SELFPAY ==
[2022-05-19 00:20] VITALS: BP 122/69; PULSE 59; RESP 16; TEMP 35.7; BMI 33.7
[2022-05-21 09:20] VITALS: BP 129/85; PULSE 60; RESP 16; TEMP 36.5; BMI 33.7
--- NOTE | 2022-05-21 09:54 | PCM.WC.PN ---
History of Present Illness Date of Service: 05/21/22 Chief Complaint: Osteomyelitis and chronic delayed healing ulcer, left foot Progress of Wound: 66 M presents for follow up after partial calcanectomy 6 weeks prior on 03/14/22. Denies constitutionals. Offloading with knee scooter at home. Denies constitutionals/pain. No new complaints. Objective Data Objective Data Vital Signs: Vital Signs Temp Pulse Resp BP O2 Del Method 97.7 F L 60 16 129/85 H Room Air 05/21/22 09:20 05/21/22 09:20 05/21/22 09:20 05/21/22 09:20 05/21/22 09:20 Oxygen Delivery Method Room Air Body Mass Index (BMI) 33.7 Physical Exam Narrative Neurovascular status unchanged from previous evaluation. Lateral skin incision appears to be well approximated with intact live. Some maceration to the margaret-incisional area. Full-thickness wound down to calcaneal bone resection site noted to the plantar heel. This demonstrates mild serosanguineous drainage. Mild maceration to the periwound area. No acute signs of infection. Musculoskeletal no pain with calf squeeze or palpation popliteal fossa. No evidence of DVT on exam. Muscular strength full to bilateral lower extremity compartments. Debridement Note Debridement Note Post-Debridement Measurements and Additional Note: Post-Debridement Measurements/Treatment - Nurse 1 - General Ulcer Assessment Start: 05/21/22 09:14 Freq: Status: Active Protocol: .LOWEXT Activity Type Activity Date Activity User E-sign Co-sign Detail Recorded Client Recorded Date Recorded By Document 05/21/22 09:20 [facility] [id number] 05/21/22 09:24 [facility] 05/21/22 09:20 - Today's Visit Information Type of service Follow-up Visit (Physician/REHAB SERVICES AIDE ) Arrival Mode Wheelchair Transfer Assistance None Patient Identification Verified (Name & Yes ) Patient Requires Transmission-Based No Precautions Height and Weight Body Mass Index (BMI) 33.7 BMI Classification Obese Vital Signs Temperature (97.8 F-99.1 F) 97.7 F L Temperature Source Temporal Pulse Rate (60-100) 60 Pulse Location Monitor Respiratory Rate (12-18) 16 Respiratory rate source Observation Oxygen Delivery Method Room Air Blood Pressure (90/60-120/80) 129/85 H Blood Pressure Mean (mm Hg) 99 Source Monitor Position Sitting Blood Pressure Location Left Forearm History Since Last Visit- (Skip if this is Patient's initial visit) Have you changed medications since your No last visit? Any new allergies or adverse reactions No Had a fall/change in ADL's that may No increase risk of falls Signs or symptoms of abuse and/or No neglect since last visit Have you been in the hospital since your No last visit? Has dressing in place as prescribed Yes Has compression in place as prescribed Yes Has offloadiing in place as prescribed Yes Experienced any changes in pain level or No management Left Footwear Other Footwear (Comment) Right Footwear Regular Shoe Other Footwear HEEL FLOATER BOOT TO LLE Pain Scale: 0-10 Numeric Is Patient Pain Free? Yes WC - Nurse 1 - General Ulcer Measurement Start: 05/21/22 09:14 Freq: Status: Active Protocol: Activity Type Activity Date Activity User E-sign Co-sign Detail Recorded Client Recorded Date Recorded By Document 05/21/22 09:20 [facility] [id number] 05/21/22 09:24 [facility] 05/21/22 09:20 Wound Center Nurse 1 #3 left heel cluster -Combined with other wound No -Current Size (cm) - Length 1.3 -Current Size (cm) - Width 1.2 -Current Size (cm) - Depth 1.6 -Total Square Cm 1.56 -Date of Last Picture (Recall this 05/21/22 field) -Photo Taken Yes -Epithelialization None Present -Tunneling No -Undermining/Tunneling Yes -Undermining/Tunneling Starts (O'clock 12 ) -Undermining/Tunneling Ends (O'clock) 12 -Maximum Distance (cm) 1.6 -Circular Undermining Yes -Exudate Amt Large -Exudate Type Serosanguineous -Wound Margin Distinct, Outline Attached -Granulation Amt Medium (34-66%) -Granulation Quality [place] -Slough/Fibrin Yes -Necrosis Amt Medium (34-66%) -Necrotic Tissue Type Adherent Slough -Texture (Margaret-wound Skin Appearance) Assessed, Scarring -Moisture (Margaret-wound Skin Appearance) Assessed, Maceration -Color (Margaret-wound Skin Appearance) Assessed -Temperature (Margaret-wound Skin No Abnormality Appearance) (Pt Warm) -Tenderness on Palpation (Margaret-wound No Skin Appearance) -Ulcer Cleansing Soap and Water -Foul Odor after Cleansing No -Anesthetic Used 5% Lidocaine Gel - Nurse 2 - General Ulcer CM Notes Start: 05/21/22 09:14 Freq: Status: Active Protocol: Activity Type Activity Date Activity User E-sign Co-sign Detail Recorded Client Recorded Date Recorded By Document 05/21/22 09:44 [id number] 05/21/22 09:46 DANIEL 05/21/22 09:44 Wound Center Nurse 2 -Time 09:45 -Correct Patient Yes -Correct Side, Site, Position Yes -Correct Procedure Yes -Procedure Performed Yes -Type of Procedure Debridement -Clinical Debridement Muscle / Fascia -Tissue Removed Muscle -Post Debridement (cm) - Length 1.3 -Post Debridement (cm) - Width 1.3 -Post Debridement (cm) - Depth 1.3 -Total Square (Post) (cm) 1.69 -Area of Debridement (cm) - Length 1.3 -Area of Debridement (cm) - Width 1.3 -Total Square (Area) (cm) 1.69 -Tunneling No -Undermining/Tunneling No -Circular Undermining No -Wound/Ulcer Outcome Not Healed -Ulcer Cleansing Rinsed/ Irrigated with Saline -Foul Odor after Cleansing No -Bioengineered Tissue No -Bleeding Controlled with Pressure -Treatment Response Procedure Tolerated Well -Offloading Yes -Type of Offloading Knee Walker -Debridement - Muscle / Fascia, 1st Yes 20sq cm Pain Scale: 0-10 Numeric Is Patient Pain Free? Yes - Nurse 3 - General Ulcer D/C NN Start: 05/21/22 09:14 Freq: Status: Active Protocol: Activity Type Activity Date Activity User E-sign Co-sign Detail Recorded Client Recorded Date Recorded By Document 05/21/22 09:53 DL [id number] 05/21/22 09:54 DL 05/21/22 09:53 Wound Care Nurse 3 #3 left heel cluster -Ulcer Cleansing Soap and Water -Foul Odor after Cleansing No -Other Dressing dakins -Primary Dressing Covered/Secured with Dry Gauze & Roll Gauze, Secured with Tape -Other Covering aayush Treatment Response Procedure Tolerated Well Pain Scale: 0-10 Numeric Is Patient Pain Free? Yes - Visit Discharge Discharge Condition Stable Ambulatory Status Wheelchair Facility Type Home Health Orders Sent Yes Assessment/Plan Assessment/Plan (1) Osteomyelitis of foot, left, acute: CODE(S): M86.172 - Other acute osteomyelitis, left ankle and foot (2) Non-pressure chronic ulcer of other part of left foot with necrosis of muscle: CODE(S): L97.523 - Non-pressure chronic ulcer of other part of left foot with necrosis of muscle PLAN: Patient examined evaluated, all findings discussed with patient in detail. Patient underwent partial calcanectomy due to diffuse osteomyelitis of his left calcaneus confirmed on MRI and pathology. This was 03/14/22. Patient is high risk for proximal amputation and understands this. Patient been NWB assisted by knee scooter at home. 81mg aspirin daily for dvt prophylaxis. Dressed with betadine wet to dry, DSD, compression. Will re-order wound vac for dressing changes 3 times a week as maceration has resolved. Patient off IV abx, no residual signs of infection. Radiographs re-ordered. follow up in 1 week.
--- NOTE | 2022-05-21 10:20 | RAD_ITS ---
STUDY: X-RAY - LEFT FOOT CLINICAL: Male, 66 years old. Ulceration. TECHNIQUE: 3 view(s) of the foot. COMPARISON: March 12, 2022. FINDINGS: Osteopenia. Resection of the distal half of the calcaneus. Large deep plantar ulceration measuring 18 mm projected over the posterior aspect of the residual calcaneus. Ossification of the distal Achilles tendon which has pulled proximal to its location on the prior study. This may represent an Achilles tendon tear. Diffuse marked soft tissue swelling. RAD/Foot min 3 Views IMPRESSION: Resection of the calcaneus with deep ulceration. Proximal retraction of calcification which appears to be within the Achilles tendon, which may represent Achilles tendinosis with rupture. Diffuse soft tissue swelling. Electronically Signed: Benedicto Edwards, at 11:45 EST ,
[2022-05-28 09:10] VITALS: BP 134/63; PULSE 56; RESP 16; TEMP 35.9; BMI 33.7
--- NOTE | 2022-05-28 09:28 | PN.PCM_ITS ---
History of Present Illness Date of Service: 05/28/22 Chief Complaint: Osteomyelitis and chronic delayed healing ulcer, left foot Progress of Wound: 66 M presents for follow up after partial calcanectomy 7 weeks prior on 03/14/22. Denies constitutionals. Offloading with knee scooter at home. Denies constitutionals/pain. No new complaints. Patient yet to receive wound vac, been receiving dakin's dressing changes. Objective Data Objective Data Vital Signs: Vital Signs Temp Pulse Resp BP O2 Del Method 96.6 F L 56 L 16 134/63 H Room Air 05/28/22 09:10 05/28/22 09:10 05/28/22 09:10 05/28/22 09:10 05/28/22 09:10 Oxygen Delivery Method Room Air Body Mass Index (BMI) 33.7 Physical Exam Narrative Neurovascular status unchanged from previous evaluation. Lateral skin incision appears to be well approximated with intact live. Some maceration to the margaret-incisional area. Full-thickness wound down to calcaneal bone resection site noted to the plantar heel. This demonstrates mild serosanguineous drainage. Mild maceration to the periwound area. No acute signs of infection. Musculoskeletal no pain with calf squeeze or palpation popliteal fossa. No evidence of DVT on exam. Muscular strength full to bilateral lower extremity compartments. Debridement Note Debridement Note Post-Debridement Measurements and Additional Note: Post-Debridement Measurements/Treatment [facility] Nurse 1 - General Ulcer Assessment Start: 05/21/22 09:14 Freq: Status: Active Protocol: .LOWEXT Activity Type Activity Date Activity User E-sign Co-sign Detail Recorded Client Recorded Date Recorded By Document 05/21/22 09:20 [facility] [id number] 05/21/22 09:24 [facility] Document 05/28/22 09:10 [facility] [id number] 05/28/22 09:16 [facility] 05/21/22 05/28/22 09:20 09:10 - Today's Visit Information Type of service Follow-up Visit Follow-up Visit (Physician/DOG RACES MANAGER (Physician/DOG RACES MANAGER ) ) Arrival Mode Wheelchair Wheelchair Transfer Assistance None Other Transfer Assist (Other) stand by Patient Identification Verified (Name & Yes Yes ) Patient Requires Transmission-Based No No Precautions Height and Weight Body Mass Index (BMI) 33.7 33.7 BMI Classification Obese Obese Vital Signs Temperature (97.8 F-99.1 F) 97.7 F L 96.6 F L Temperature Source Temporal Temporal Pulse Rate (60-100) 60 56 L Pulse Location Monitor Monitor Respiratory Rate (12-18) 16 16 Respiratory rate source Observation Observation Oxygen Delivery Method Room Air Room Air Blood Pressure (90/60-120/80) 129/85 H 134/63 H Blood Pressure Mean (mm Hg) 99 86 Source Monitor Monitor Position Sitting Sitting Blood Pressure Location Left Forearm Left Arm History Since Last Visit- (Skip if this is Patient's initial visit) Have you changed medications since your No No last visit? Any new allergies or adverse reactions No No Had a fall/change in ADL's that may No No increase risk of falls Signs or symptoms of abuse and/or No No neglect since last visit Have you been in the hospital since your No No last visit? Has dressing in place as prescribed Yes Yes Has compression in place as prescribed Yes Yes Has offloadiing in place as prescribed Yes Yes Experienced any changes in pain level or No No management Left Footwear Other Footwear Other Footwear (Comment) (Comment) Right Footwear Regular Shoe Regular Shoe Other Footwear HEEL FLOATER heel boot BOOT TO LLE Pain Scale: 0-10 Numeric Is Patient Pain Free? Yes Yes WC - Nurse 1 - General Ulcer Measurement Start: 05/21/22 09:14 Freq: Status: Active Protocol: Activity Type Activity Date Activity User E-sign Co-sign Detail Recorded Client Recorded Date Recorded By Document 05/21/22 09:20 [facility] [id number] 05/21/22 09:24 [facility] Document 05/28/22 09:10 [facility] [id number] 05/28/22 09:16 [facility] 05/21/22 05/28/22 09:20 09:10 Wound Center Nurse 1 #3 left heel cluster -Combined with other wound No No -Current Size (cm) - Length 1.3 1.3 -Current Size (cm) - Width 1.2 1 -Current Size (cm) - Depth 1.6 1.5 -Total Square Cm 1.56 1.3 -Date of Last Picture (Recall this 05/21/22 05/28/22 field) -Photo Taken Yes Yes -Epithelialization None Present None Present -Tunneling No No -Undermining/Tunneling Yes No -Undermining/Tunneling Starts (O'clock 12 ) -Undermining/Tunneling Ends (O'clock) 12 -Maximum Distance (cm) 1.6 -Circular Undermining Yes No -Exudate Amt Large Large -Exudate Type Serosanguineous Serosanguineous -Wound Margin Distinct, Distinct, Outline Outline Attached Attached -Granulation Amt Medium (34-66%) Small (1-33%) -Granulation Quality [place] -Slough/Fibrin Yes Yes -Necrosis Amt Medium (34-66%) Large (67-100%) -Necrotic Tissue Type Adherent Slough Adherent Slough -Texture (Margaret-wound Skin Appearance) Assessed, Assessed, Scarring Scarring -Moisture (Margaret-wound Skin Appearance) Assessed, Assessed, Maceration Maceration,Dry/ Scaly -Color (Margaret-wound Skin Appearance) Assessed Assessed -Temperature (Margaret-wound Skin No Abnormality No Abnormality Appearance) (Pt Warm) (Pt Warm) -Tenderness on Palpation (Margaret-wound No No Skin Appearance) -Ulcer Cleansing Soap and Water Soap and Water -Foul Odor after Cleansing No No -Anesthetic Used 5% Lidocaine 5% Lidocaine Gel Gel WC - Nurse 2 - General Ulcer CM Notes Start: 05/21/22 09:14 Freq: Status: Active Protocol: Activity Type Activity Date Activity User E-sign Co-sign Detail Recorded Client Recorded Date Recorded By Document 05/21/22 09:44 DANIEL [id number] 05/21/22 09:46 JF Document 05/28/22 09:21 [id number] 05/28/22 09:22 JF Edit Result 05/28/22 09:21 JF (1) [id number] 05/28/22 09:24 JF (1) #3 left heel cluster - Clinical Debridement Subcutaneous => Muscle / Fascia - Tissue Removed Subcutaneous => Muscle,Fascia - Debridement - Subq, 1st 20sq cm Yes => No - Debridement - Muscle / Fascia, 1st => Yes 20sq cm 05/21/22 05/28/22 09:44 09:21 Wound Center Nurse 2 #3 left heel cluster -Time 09:45 09:21 -Correct Patient Yes Yes -Correct Side, Site, Position Yes Yes -Correct Procedure Yes Yes -Procedure Performed Yes Yes -Type of Procedure Debridement Debridement -Clinical Debridement Muscle / Fascia Muscle / Fascia -Tissue Removed Muscle Muscle,Fascia -Post Debridement (cm) - Length 1.3 1.4 -Post Debridement (cm) - Width 1.3 1 -Post Debridement (cm) - Depth 1.3 1.6 -Total Square (Post) (cm) 1.69 1.4 -Area of Debridement (cm) - Length 1.3 1.4 -Area of Debridement (cm) - Width 1.3 1 -Total Square (Area) (cm) 1.69 1.4 -Tunneling No No -Undermining/Tunneling No No -Circular Undermining No No -Wound/Ulcer Outcome Not Healed Not Healed -Ulcer Cleansing Rinsed/ Rinsed/ Irrigated with Irrigated with Saline Saline -Foul Odor after Cleansing No No -Bioengineered Tissue No No -Bleeding Controlled with Pressure Pressure -Treatment Response Procedure Procedure Tolerated Well Tolerated Well -Offloading Yes -Type of Offloading Knee Walker Camwalker -Debridement - Subq, 1st 20sq cm No -Debridement - Muscle / Fascia, 1st Yes Yes 20sq cm Pain Scale: 0-10 Numeric Is Patient Pain Free? Yes Yes - Nurse 3 - General Ulcer D/C NN Start: 05/21/22 09:14 Freq: Status: Active Protocol: Activity Type Activity Date Activity User E-sign Co-sign Detail Recorded Client Recorded Date Recorded By Document 05/21/22 09:53 DL [id number] 05/21/22 09:54 DL 05/21/22 09:53 Wound Care Nurse 3 #3 left heel cluster -Ulcer Cleansing Soap and Water -Foul Odor after Cleansing No -Other Dressing dakins -Primary Dressing Covered/Secured with Dry Gauze & Roll Gauze, Secured with Tape -Other Covering aayush Treatment Response Procedure Tolerated Well Pain Scale: 0-10 Numeric Is Patient Pain Free? Yes - Visit Discharge Discharge Condition Stable Ambulatory Status Wheelchair Facility Type Home Health Orders Sent Yes Assessment/Plan Assessment/Plan (1) Osteomyelitis of foot, left, acute: CODE(S): M86.172 - Other acute osteomyelitis, left ankle and foot (2) Non-pressure chronic ulcer of other part of left foot with necrosis of muscle: CODE(S): L97.523 - Non-pressure chronic ulcer of other part of left foot with necrosis of muscle PLAN: Patient examined evaluated, all findings discussed with patient in detail. Patient underwent partial calcanectomy due to diffuse osteomyelitis of his left calcaneus confirmed on MRI and pathology. This was 03/14/22. Patient is high risk for proximal amputation and understands this. Patient been NWB assisted by knee scooter at home. 81mg aspirin daily for dvt prophylaxis. Dressed with dakin's wet to dry, DSD, compression. awaiting wound vac. Dressing changes per [facility]. Patient off IV abx, no residual signs of infection. Radiographs show no signs of residual osteomyelitis. follow up in 1 week.
[2022-06-04 09:21] VITALS: BP 126/63; PULSE 60; RESP 22; TEMP 36.3; BMI 33.7
--- NOTE | 2022-06-04 10:29 | PCM.WC.PN ---
History of Present Illness Date of Service: 06/04/22 Chief Complaint: Osteomyelitis and chronic delayed healing ulcer, left foot Progress of Wound: 66 M presents for follow up after partial calcanectomy 10 weeks prior on 03/14/22. Denies constitutionals. Offloading with knee scooter at home. Denies constitutionals/pain. No new complaints. Patient yet to receive wound vac, been receiving dakin's dressing changes. Objective Data Objective Data Vital Signs: Vital Signs Temp Pulse Resp BP O2 Del Method 97.3 F L 60 22 H 126/63 H Room Air 06/04/22 09:21 06/04/22 09:21 06/04/22 09:21 06/04/22 09:21 05/28/22 09:10 Oxygen Delivery Method Room Air Body Mass Index (BMI) 33.7 Physical Exam Narrative Neurovascular status unchanged from previous evaluation. Lateral skin incision appears to be well approximated with intact live. Some maceration to the margaret-incisional area. Full-thickness wound down to calcaneal bone resection site noted to the plantar heel. This demonstrates mild serosanguineous drainage. Mild maceration to the periwound area. Some bluish-green drainage noted concerning for possible Pseudomonas. Musculoskeletal no pain with calf squeeze or palpation popliteal fossa. No evidence of DVT on exam. Muscular strength full to bilateral lower extremity compartments. Debridement Note Debridement Note Post-Debridement Measurements and Additional Note: Post-Debridement Measurements/Treatment - Nurse 1 - General Ulcer Assessment Start: 05/21/22 09:14 Freq: Status: Active Protocol: JANESSA.LOWEXT Activity Type Activity Date Activity User E-sign Co-sign Detail Recorded Client Recorded Date Recorded By Document 05/21/22 09:20 [facility] [id number] 05/21/22 09:24 [facility] Document 05/28/22 09:10 [facility] [id number] 05/28/22 09:16 BM Document 06/04/22 09:21 DL [id number] 06/04/22 09:29 DL 05/21/22 05/28/22 06/04/22 09:20 09:10 09:21 - Today's Visit Information Type of service Follow-up Visit Follow-up Visit Follow-up Visit (Physician/ADVANCED MANUFACTURING ENGINEER (Physician/ADVANCED MANUFACTURING ENGINEER (Physician/ADVANCED MANUFACTURING ENGINEER ) ) ) Arrival Mode Wheelchair Wheelchair Wheelchair Transfer Assistance None Other None Transfer Assist (Other) stand by Patient Identification Verified (Name & Yes Yes Yes ) Patient Requires Transmission-Based No No No Precautions Finger Stick Blood Sugar(mg/dl) (if 200 indicated): Blood Sugar Stated by Patient Height and Weight Body Mass Index (BMI) 33.7 33.7 33.7 BMI Classification Obese Obese Obese Vital Signs Temperature (97.8 F-99.1 F) 97.7 F L 96.6 F L 97.3 F L Temperature Source Temporal Temporal Temporal Pulse Rate (60-100) 60 56 L 60 Pulse Location Monitor Monitor Monitor Respiratory Rate (12-18) 16 16 22 H Respiratory rate source Observation Observation Observation Oxygen Delivery Method Room Air Room Air Blood Pressure (90/60-120/80) 129/85 H 134/63 H 126/63 H Blood Pressure Mean (mm Hg) 99 86 84 Source Monitor Monitor Monitor Position Sitting Sitting Blood Pressure Location Left Forearm Left Arm History Since Last Visit- (Skip if this is Patient's initial visit) Have you changed medications since your No No No last visit? Any new allergies or adverse reactions No No No Had a fall/change in ADL's that may No No No increase risk of falls Signs or symptoms of abuse and/or No No No neglect since last visit Have you been in the hospital since your No No No last visit? Has dressing in place as prescribed Yes Yes Yes Has compression in place as prescribed Yes Yes Yes Has offloadiing in place as prescribed Yes Yes Yes Experienced any changes in pain level or No No No management Left Footwear Other Footwear Other Footwear Surgical Shoe (Comment) (Comment) with pressure relief insole Right Footwear Regular Shoe Regular Shoe Other Footwear HEEL FLOATER heel boot BOOT TO LLE Pain Scale: 0-10 Numeric Is Patient Pain Free? Yes Yes Yes WC - Nurse 1 - General Ulcer Measurement Start: 05/21/22 09:14 Freq: Status: Active Protocol: Activity Type Activity Date Activity User E-sign Co-sign Detail Recorded Client Recorded Date Recorded By Document 05/21/22 09:20 [facility] [id number] 05/21/22 09:24 [facility] Document 05/28/22 09:10 [facility] [id number] 05/28/22 09:16 BMF Document 06/04/22 09:21 DL [id number] 06/04/22 09:29 DL 05/21/22 05/28/22 06/04/22 09:20 09:10 09:21 Wound Center Nurse 1 #3 left heel cluster -Combined with other wound No No -Current Size (cm) - Length 1.3 1.3 1.2 -Current Size (cm) - Width 1.2 1 1.2 -Current Size (cm) - Depth 1.6 1.5 1.6 -Total Square Cm 1.56 1.3 1.44 -Date of Last Picture (Recall this 05/21/22 05/28/22 field) -Photo Taken Yes Yes Yes -Epithelialization None Present None Present -Tunneling No No -Undermining/Tunneling Yes No -Undermining/Tunneling Starts (O'clock 12 ) -Undermining/Tunneling Ends (O'clock) 12 -Maximum Distance (cm) 1.6 -Circular Undermining Yes No -Exudate Amt Large Large Medium -Exudate Type Serosanguineous Serosanguineous Serosanguineous -Wound Margin Distinct, Distinct, Thickened Outline Outline Attached Attached -Granulation Amt Medium (34-66%) Small (1-33%) None Present (0 %) -Granulation Quality [place] -Slough/Fibrin Yes Yes -Necrosis Amt Medium (34-66%) Large (67-100%) Small (1-33%) -Necrotic Tissue Type Adherent Slough Adherent Slough Adherent Slough -Structure Exposed N/A -Texture (Margaret-wound Skin Appearance) Assessed, Assessed, Callus Scarring Scarring -Moisture (Margaret-wound Skin Appearance) Assessed, Assessed, Maceration Maceration Maceration,Dry/ Scaly -Color (Margaret-wound Skin Appearance) Assessed Assessed Hemosiderin Staining -Temperature (Margaret-wound Skin No Abnormality No Abnormality No Abnormality Appearance) (Pt Warm) (Pt Warm) (Pt Warm) -Tenderness on Palpation (Margaret-wound No No No Skin Appearance) -Ulcer Cleansing Soap and Water Soap and Water Soap and Water -Foul Odor after Cleansing No No No -Anesthetic Used 5% Lidocaine 5% Lidocaine 5% Lidocaine Gel Gel Gel WC - Nurse 2 - General Ulcer CM Notes Start: 01/03/23 09:14 Freq: Status: Active Protocol: Activity Type Activity Date Activity User E-sign Co-sign Detail Recorded Client Recorded Date Recorded By Document 05/21/22 09:44 [id number] 05/21/22 09:46 JF Document 05/28/22 09:21 [id number] 05/28/22 09:22 JF Edit Result 05/28/22 09:21 JF (1) [id number] 05/28/22 09:24 JF Document 06/04/22 09:45 [id number] 06/04/22 09:46 JF (1) #3 left heel cluster - Clinical Debridement Subcutaneous => Muscle / Fascia - Tissue Removed Subcutaneous => Muscle,Fascia - Debridement - Subq, 1st 20sq cm Yes => No - Debridement - Muscle / Fascia, 1st => Yes 20sq cm 05/21/22 05/28/22 06/04/22 09:44 09:21 09:45 Wound Center Nurse 2 #3 left heel cluster -Time 09:45 09:21 09:45 -Correct Patient Yes Yes Yes -Correct Side, Site, Position Yes Yes Yes -Correct Procedure Yes Yes Yes -Procedure Performed Yes Yes Yes -Type of Procedure Debridement Debridement Debridement -Clinical Debridement Muscle / Fascia Muscle / Fascia Muscle / Fascia -Tissue Removed Muscle Muscle,Fascia Muscle,Fascia -Post Debridement (cm) - Length 1.3 1.4 1.3 -Post Debridement (cm) - Width 1.3 1 1.3 -Post Debridement (cm) - Depth 1.3 1.6 1.5 -Total Square (Post) (cm) 1.69 1.4 1.69 -Area of Debridement (cm) - Length 1.3 1.4 1.3 -Area of Debridement (cm) - Width 1.3 1 1.3 -Total Square (Area) (cm) 1.69 1.4 1.69 -Tunneling No No No -Undermining/Tunneling No No No -Circular Undermining No No No -Wound/Ulcer Outcome Not Healed Not Healed Not Healed -Ulcer Cleansing Rinsed/ Rinsed/ Rinsed/ Irrigated with Irrigated with Irrigated with Saline Saline Saline -Foul Odor after Cleansing No No No -Bioengineered Tissue No No No -Bleeding Controlled with Pressure Pressure Pressure -Treatment Response Procedure Procedure Procedure Tolerated Well Tolerated Well Tolerated Well -Offloading Yes Yes -Type of Offloading Knee Walker Camwalker Camwalker -Assistive Device(s) Wheelchair -Debridement - Subq, 1st 20sq cm No -Debridement - Muscle / Fascia, 1st Yes Yes Yes 20sq cm Pain Scale: 0-10 Numeric Is Patient Pain Free? Yes Yes Yes - Nurse 3 - General Ulcer D/C NN Start: 05/21/22 09:14 Freq: Status: Active Protocol: Activity Type Activity Date Activity User E-sign Co-sign Detail Recorded Client Recorded Date Recorded By Document 05/21/22 09:53 DL [id number] 05/21/22 09:54 DL Document 05/28/22 09:39 [facility] [id number] 05/28/22 09:39 BM Document 06/04/22 09:48 [facility] [id number] 06/04/22 09:51 BMF 05/21/22 05/28/22 06/04/22 09:53 09:39 09:48 Wound Care Nurse 3 #3 left heel cluster -Ulcer Cleansing Soap and Water Rinsed/ Rinsed/ Irrigated with Irrigated with Saline Saline -Foul Odor after Cleansing No No No -Primary Dressing Applied Other -Other Dressing dakins DAKINS MOIST DAKINS MOIST GAUZE GAUZE, PER DL CLINICAL REHABILITATION SPECIALIST -Primary Dressing Covered/Secured with Dry Gauze & Dry Gauze & Dry Gauze & Roll Gauze, Roll Gauze, Roll Gauze, Secured with Secured with Secured with Tape Tape Tape -Other Covering kevin HEEL HAT Left -Compression Wrap Kevin Wrap Kevin Wrap Treatment Response Procedure Procedure Procedure Tolerated Well Tolerated Well Tolerated Well Pain Scale: 0-10 Numeric Is Patient Pain Free? Yes Yes Yes WC - Visit Discharge Discharge Condition Stable Stable Stable Ambulatory Status Wheelchair Wheelchair Wheelchair Transportation Private Auto Private Auto Facility Type Home Health Home Health Home Health Orders Sent Yes Assessment/Plan Assessment/Plan (1) Osteomyelitis of foot, left, acute: CODE(S): M86.172 - Other acute osteomyelitis, left ankle and foot (2) Non-pressure chronic ulcer of other part of left foot with necrosis of muscle: CODE(S): L97.523 - Non-pressure chronic ulcer of other part of left foot with necrosis of muscle PLAN: Patient examined evaluated, all findings discussed with patient in detail. Patient underwent partial calcanectomy due to diffuse osteomyelitis of his left calcaneus confirmed on MRI and pathology. This was 03/14/22. Patient is high risk for proximal amputation and understands this. Patient been NWB assisted by knee scooter at home. 81mg aspirin daily for dvt prophylaxis. Wound was excisionally debrided down to including the level of muscle using a 5 mm dermal curette of all nonviable tissue. Hemostasis obtained with light compression. Patient tolerated procedure well. No anesthesia due to neuropathy. Pre and postdebridement measurements document nursing notes. Wound site was flushed with due to some blue-green drainage was cultured. There were really no acute signs of infection so we will hold antibiotics until C&S results. Dressed with dakin's wet to dry, DSD, compression. awaiting wound vac. Dressing changes per [facility]. follow up in 1 week.
== END 2022-06-04 16:12 | disposition home or self-care (01) ==
LOC: WC 09:00
PROVIDERS: PCP Internal Medicine; Referring Provider Podiatrist Foot & Ankle Surgery; Visit Provider Podiatrist
DX: M86.172 Other acute osteomyelitis, left ankle and foot (principal); L97.523 Non-pressure chronic ulcer of other part of left foot with necrosis of muscle
CPT/HCPCS: 11042; 11043; 73630; 87070; 87075; 87077; 87186; 87205

== ENCOUNTER → 2022-06-11 | Outpatient (CLI) | payer MEDICARE, BC, SELFPAY ==
[2022-06-11 12:20] LABS: Absolute Lymphocyte Count 2.42 X10^3/uL (0.83-4.51); Absolute Neutrophil Count 4.9 X10^3/uL (2.0-7.7); Basophil# 0.09 X10^3/uL; Basophil% 1.1 % (0-1); Eosinophil# 0.29 X10^3/uL; Eosinophils% 3.5 % (0-5); Hemoglobin 17.2 g/dL (13.0-16.5); Lymphocyte # 2.42 X10^3/ul (0.83-4.51); Mean Corp Hgb Conc 31.9 g/dL (32-36); Mean Corpuscular Hgb 26.8 pg (27.0-32.0); Mean Corpuscular Volume 84.1 fL (80-94); Mean Platelet Vol. 11.2 fl (6.2-12.0); Monocyte# 0.63 X10^3/uL; Monocyte% 7.6 % (0-10); NRBC Flagged by Analyzer 0 % (0-5); Neutrophil # 4.89 X10^3/uL (2.7-7.7); Neutrophil % 58.6 % (47-70); Platelet Count 186 K/mm3 (150-450); RBC Distribution Width CV 17.4 % (11.6-14.6); Red Blood Count 6.42 M/mm3 (4.6-6.2); White Blood Count 8.3 K/mm3 (4.4-11.0)
[2022-06-11 12:31] LABS: Erythrocyte Sedimentation Rate 17 mm/hr (0-20)
[2022-06-11 13:07] LABS: ALB/GLOB Ratio 0.8 RATIO (0.9-2.4); AST(SGOT) 46 U/L (15-37); Alanine Aminotransfer ALT/SGPT 69 U/L (16-61); Albumin, Serum 3.5 g/dL (3.2-5.0); Alkaline Phosphatase 135 U/L (45-117); Anion Gap 5 (5-15); BUN 36 mg/dL (7-18); BUN/Creat Ratio 16.6 RATIO (10-20); CRP < 2.90 mg/L (0.0-3.0); Calcium,Total 9.5 mg/dL (8.5-10.1); Chloride 106 mmol/L (98-107); Creatinine, Serum 2.17 mg/dL (0.70-1.30); EST Glomerular Filtration Rate 32 mL/min (>60); Est Glom Filt Rate - Afr Amer 39 mL/min (>60); Globulin 4.2 g/dL (2.2-4.2); Glucose 198 mg/dL (74-106); Potassium 4.6 mmol/L (3.5-5.1); Protein, Total 7.7 g/dL (6.4-8.2); Sodium Level 137 mmol/L (136-145)
[2022-06-11 13:24] LABS: Hemoglobin A1c 9.6 % (3.8-5.6)
== END | disposition home or self-care (01) ==
LOC: LAB 11:12
PROVIDERS: PCP Internal Medicine; Visit Provider Podiatrist
DX: L97.523 Non-pressure chronic ulcer of other part of left foot with necrosis of muscle (principal); Z79.899 Other long term (current) drug therapy
CPT/HCPCS: 36415; 80053; 83036; 85025; 85652; 86140

== ENCOUNTER → 2022-07-02 | Outpatient (CLI) | payer MEDICARE, BC, SELFPAY ==
[2022-07-02 11:08] LABS: Albumin, Serum 3.4 g/dL (3.2-5.0); BUN 41 mg/dL (7-18); BUN/Creat Ratio 17.5 RATIO (10-20); Calcium,Total 9.5 mg/dL (8.5-10.1); Chloride 108 mmol/L (98-107); Creatinine, Serum 2.34 mg/dL (0.70-1.30); EST Glomerular Filtration Rate 30 mL/min (>60); Est Glom Filt Rate - Afr Amer 36 mL/min (>60); Glucose 59 mg/dL (74-106); Phosphorus 3.6 mg/dL (2.5-4.9); Potassium 4.7 mmol/L (3.5-5.1); Sodium Level 143 mmol/L (136-145)
== END | disposition home or self-care (01) ==
PROVIDERS: PCP Internal Medicine
DX: I15.1 Hypertension secondary to other renal disorders (principal); E11.21 Type 2 diabetes mellitus with diabetic nephropathy; E11.628 Type 2 diabetes mellitus with other skin complications; R80.1 Persistent proteinuria, unspecified; L08.9 Local infection of the skin and subcutaneous tissue, unspecified
CPT/HCPCS: 36415; 80069

== ENCOUNTER → 2022-07-30 | Outpatient (CLI) | payer MEDICARE, BC, SELFPAY | END | disposition home or self-care (01) | PROVIDERS: PCP Internal Medicine; Visit Provider Podiatrist | DX: L97.523 Non-pressure chronic ulcer of other part of left foot with necrosis of muscle (principal) | CPT/HCPCS: 87070; 87077; 87186; 87205 ==

== ENCOUNTER → 2022-10-08 | Outpatient (CLI) | payer MEDICARE, BC, SELFPAY ==
--- NOTE | 2022-10-08 13:00 | VDLE_ITS ---
Reason For Study: Bi-lateral lower extremity swelling RIGHT LEFT GSV is normal. GSV is normal. CFV is compressible, spontaneous, phasic, CFV is compressible, spontaneous, phasic, competent and demonstrates normal competent, and demonstrates normal augmentation. augmentation. FV is compressible, spontaneous, phasic, FV is compressible, spontaneous, phasic, competent and demonstrates normal competent and demonstrates normal augmentation. augmentation. POP V is compressible, spontaneous, phasic, POP V is compressible, spontaneous, phasic, competent and demonstrates normal competent and demonstrates normal augmentation. augmentation. T/P Trunk is compressible. T/P Trunk is compressible. PTV is compressible. PTV is compressible. RT PerV is compressible. LT PerV is compressible. Procedure This is a venous duplex using B-mode, color flow and spectral Doppler. Exam performed in department. The exam was diagnostic. A preliminary report was called and/or faxed to Dr. Espinal's office. VL/Venous Duplex US - Raudel Extrem Interpretation Summary No evidence for acute deep venous thrombosis bilateral lower extremities with p atent and compressible bilateral great saphenous veins. Ordering Physician: August Espinal Referring Physician: August Espinal Performed By: Ignacio Grady RVT
== END | disposition home or self-care (01) ==
LOC: CVS 12:57
PROVIDERS: PCP Internal Medicine; Referring Provider Podiatrist; Visit Provider Podiatrist
DX: M79.661 Pain in right lower leg (principal); M79.662 Pain in left lower leg
CPT/HCPCS: 93970

== ENCOUNTER → 2022-10-15 | Outpatient (CLI) | payer MEDICARE, BC, SELFPAY | END | disposition home or self-care (01) | PROVIDERS: PCP Internal Medicine; Visit Provider Podiatrist | DX: L97.521 Non-pressure chronic ulcer of other part of left foot limited to breakdown of skin (principal) | CPT/HCPCS: 87070; 87077; 87186; 87205 ==

== ENCOUNTER → 2022-11-07 | Outpatient (CLI) | payer MEDICARE, BC, SELFPAY ==
--- NOTE | 2022-11-07 09:56 | RAD_ITS ---
INDICATION: Pre operative EXAMINATION/TECHNIQUE: X-RAY - XR Chest 1 View COMPARISON: FINDINGS: LINES/DEVICES: None. LUNGS: No consolidation, edema or effusion. No pneumothorax. MEDIASTINUM AND CARDIOVASCULAR STRUCTURES: Cardiac silhouette not enlarged. Central airways and mediastinal contour are unremarkable. BONES AND SOFT TISSUES: Unremarkable. RAD/Chest 1 View IMPRESSION: No radiographic evidence of acute cardiopulmonary disease. Electronically Signed: August Pyle, at 8:58 EDT ,
== END | disposition home or self-care (01) ==
LOC: RAD 09:54
PROVIDERS: PCP Internal Medicine; Referring Provider Internal Medicine; Visit Provider Internal Medicine
DX: Z01.818 Encounter for other preprocedural examination (principal)
CPT/HCPCS: 71045; 93005

== ENCOUNTER 2022-11-29 07:48 | Day surgery (SDC) | payer MEDICARE, BC, SELFPAY ==
--- NOTE | 2022-11-29 | BON_PTH ---
PATIENT: JUAREZ GOODRICH LOC[place] [facility] [place][id number] AGE/SX: 67/M ROOM: RE11/29/[address]: Dr. August Espinal DPM : 1955 BED: DIS: 11/29/2022 SPEC #: [id number] RECD: 11/29/22 14:19 STATUS: MALENA MARGRET #: [id number] GILBERTO: 11/29/22 00:[address]: August Espinal DEPT: SURGICAL PATHOLOGY RECD BY: Melody Gant ENTERED: 12/02/22 07:03 SP TYPE: Bone OTHR DR: Dr. Emmett Rosario MD Tissues: Bone of foot, NOS Procedures: Decalcification bone/plaque Surgery Specimen Level IV HEADER OPERATION: Left foot partial calcanectomy with delayed primary closure PRE-OP DIAGNOSIS: Left calcaneal osteomyelitis, diabetic foot wound ulcer TISSUE SUBMITTED: Left foot wound calcaneal bone MICROSCOPIC DIAGNOSIS Left foot calcaneal bone, partial calcanectomy: Pieces of bone with acute osteomyelitis. ROSETTE:dominique 12/04/2022 MICROSCOPIC DESCRIPTION Slides are reviewed. GROSS DESCRIPTION Received in fixative is one container labeled with the patient's name and designated left foot wound calcaneal bone. The specimen consists of two pieces of bone that in aggregate measure 3.0 x 2.0 x 0.3 cm. The entire specimen is submitted in two cassettes after decalcification. / ROSETTE:dominique 12/02/2022 TC:2 CPT: 52266, 64580
[2022-11-29 08:22] VITALS: BP 104/53; PULSE 63; RESP 18; TEMP 36.8; O2SAT 98; BMI 30.6
[2022-11-29] MEDS: Lactated Ringers 1,000 ML 15 ML IV (08:27)
--- NOTE | 2022-11-29 09:30 | RAD_ITS ---
STUDY: X-RAY - LEFT FOOT CLINICAL: Male, 67 years old. LT FOOT PARTIAL CALCANECTOMY WITH DELAYED PRIMARY CLOSURE OF WOUND TECHNIQUE: 1 view(s) of the foot. COMPARISON: None. FINDINGS: Intraoperative imaging provided for partial calcanectomy. RAD/Foot 2 Views IMPRESSION: Intraoperative imaging provided for partial calcanectomy. Electronically Signed: James Bell MD at 14:47 EDT ,
[2022-11-29] MEDS: Bupivacaine 0.25% 30 ML Vial (11:40)
--- NOTE | 2022-11-29 12:09 | PCM.OPRPT ---
Problems Associated Problem List Diagnoses (1) Osteomyelitis of foot, left, acute: (2) Non-pressure chronic ulcer of other part of left foot with necrosis of bone: Report of Operation Date of Procedure: 11/29/22 Pre-Operative Diagnosis: 1) Left calcaneal osteomyelitis 2) Chronic Left diabetic foot ulcer Post-Operative Diagnosis: same Surgery/Procedure Performed:: 1) Partial calcanectomy left foot 2) delayed primary closure of left foot wound/incision Description of Surgical Findings:: Adequate bleeding suggestive of good healing potential. No acute signs of infection such as purulence. Hard calcaneal bone suggestive of chronic osteomyelitis. Surgeon: August Espinal vice president of instruction: None (shilo yates) Type of Anesthesia: General Specimen's removed: left calcaneal bone (microbiology/pathology) Left foot tissue (microbiology) Drains: none Estimated Blood Loss (mL): 100cc Description of Procedure: Patient brought back the operating and induced under general anesthesia. Patient and placed in prone position on the operating room table with all osseous prominences offloaded to prevent any compression neuropraxia's or complications associated with prone surgery. Well-padded left thigh tourniquet applied. Left lower extremity was scrubbed prepped draped using typical aseptic fashion. Once cleared by anesthesia left lower extremity was elevated exsanguinated tourniquet was inflated 300 mmHg. Local anesthesia 20 cc half percent Marcaine plain were used using local infiltration block technique. A linear incision from the distal insertion of the Achilles following the posterior and plantar calcaneus was made full-thickness down to the level of bone. Any bleeders were identified cauterized neurovascular structures identified and protected with blunt retraction. Additional resection of the calcaneal bone was performed using a sagittal saw. Care was taken to make a flat surface for adequate weightbearing upon healing. This bone was split and sent to pathology as well as microbiology for additional examination. Initially the plantar calcaneal heel wound was excised in the initial incision and sent to microbiology for tissue culture. Incisional site was flushed with copious amounts of normal sterile saline using low-pressure pulse lavage. Site was then closed using simple interrupted buried 2-0 Vicryl and a combination of simple interrupted, vertical and horizontal mattress to skin. Tourniquet was let down prior to incisional closure adequate hemostasis noted. Total tourniquet time was noted to be less than 20 minutes. Incision was dressed with Betadine Adaptic 4 x 4's Kerlix Kevin bandage and a well-padded Boles posterior splint. Patient was transferred to PACU with vital signs stable and vascular status intact all digits for further monitoring prior to discharge. Patient tolerated procedure and anesthesia well in apparent fast satisfactory condition. Patient will follow up in 1 week. No complications
[2022-11-29 12:23] VITALS: BP 104/53; BP 117/59; PULSE 58; RESP 94; TEMP 35.9; O2SAT 94
[2022-11-29 12:30] VITALS: BP 104/53; BP 107/58; PULSE 55; RESP 16; O2SAT 92
[2022-11-29 12:45] VITALS: BP 103/51; BP 104/53; PULSE 55; RESP 16; O2SAT 97
[2022-11-29 12:46] LABS: Bedside Glucose 150 mg/dL (74-106)
[2022-11-29 13:03] VITALS: BP 101/52; BP 104/53; PULSE 52; RESP 16; TEMP 36.1; O2SAT 98
[2022-11-29 13:20] VITALS: BP 104/53
== END 2022-11-29 14:38 | disposition home or self-care (01) ==
LOC: SDC 07:56 → AC 07:57
PROVIDERS: PCP Internal Medicine; Referring Provider Podiatrist; Visit Provider Podiatrist
PROC: (CPT 28120; principal; 2022-11-29 09:15)
DX: E11.69 Type 2 diabetes mellitus with other specified complication (principal); E11.621 Type 2 diabetes mellitus with foot ulcer; L97.524 Non-pressure chronic ulcer of other part of left foot with necrosis of bone; M86.172 Other acute osteomyelitis, left ankle and foot; E11.42 Type 2 diabetes mellitus with diabetic polyneuropathy; E11.22 Type 2 diabetes mellitus with diabetic chronic kidney disease; Z79.4 Long term (current) use of insulin; N18.30 Chronic kidney disease, stage 3 unspecified; I12.9 Hypertensive chronic kidney disease with stage 1 through stage 4 chronic kidney disease, or unspecified chronic kidney disease; I25.10 Atherosclerotic heart disease of native coronary artery without angina pectoris; G47.33 Obstructive sleep apnea (adult) (pediatric); F17.200 Nicotine dependence, unspecified, uncomplicated; G47.00 Insomnia, unspecified; E78.5 Hyperlipidemia, unspecified; Z79.899 Other long term (current) drug therapy; Z79.84 Long term (current) use of oral hypoglycemic drugs; Z86.718 Personal history of other venous thrombosis and embolism; Z95.5 Presence of coronary angioplasty implant and graft; Z79.82 Long term (current) use of aspirin
CPT/HCPCS: 28120; 73620; 76000; 82962; 87070; 87075; 87077; 87102; 87176; 87186; 87205; 87206; 88304; 88305; 88311; J7120; J2405

== ENCOUNTER → 2022-12-12 | Outpatient (CLI) | payer MEDICARE, BC, SELFPAY ==
[2022-12-12 16:48] LABS: Hematocrit 48.6 % (40-54); Hemoglobin 15.8 g/dL (13.0-16.5); Mean Corp Hgb Conc 32.5 g/dL (32-36); Mean Corpuscular Hgb 28.4 pg (27.0-32.0); Mean Corpuscular Volume 87.3 fL (80-94); Mean Platelet Vol. 11.1 fl (6.2-12.0); Platelet Count 217 K/mm3 (150-450); RBC Distribution Width CV 15.3 % (11.6-14.6); RBC Distribution Width SD 48.9 fl (35.1-43.9); Red Blood Count 5.57 M/mm3 (4.6-6.2); White Blood Count 9.2 K/mm3 (4.4-11.0)
[2022-12-12 17:16] LABS: AST(SGOT) 35 U/L (15-37); Alanine Aminotransfer ALT/SGPT 51 U/L (16-61); Albumin, Serum 2.8 g/dL (3.2-5.0); Alkaline Phosphatase 121 U/L (45-117); Anion Gap 5 (5-15); BUN 28 mg/dL (7-18); BUN/Creat Ratio 12.4 RATIO (10-20); Bilirubin, Direct 0.13 mg/dL (0.00-0.30); Calcium,Total 8.8 mg/dL (8.5-10.1); Chloride 107 mmol/L (98-107); Creatinine, Serum 2.26 mg/dL (0.70-1.30); EST Glomerular Filtration Rate 31 mL/min (>60); Est Glom Filt Rate - Afr Amer 37 mL/min (>60); Globulin 4.2 g/dL (2.2-4.2); Glucose 161 mg/dL (74-106); Potassium 4.5 mmol/L (3.5-5.1); Sodium Level 140 mmol/L (136-145)
[2022-12-12 17:29] LABS: Erythrocyte Sedimentation Rate 32 mm/hr (0-20)
== END | disposition home or self-care (01) ==
LOC: LAB 15:25
PROVIDERS: PCP Internal Medicine; Referring Provider Internal Medicine Infectious Disease; Visit Provider Internal Medicine Infectious Disease
DX: M86.9 Osteomyelitis, unspecified (principal)
CPT/HCPCS: 36415; 80048; 80076; 85027; 85652

== ENCOUNTER → 2022-12-31 | Outpatient (CLI) | payer MEDICARE, BC, SELFPAY ==
[2022-12-31 11:57] LABS: Absolute Lymphocyte Count 2.13 X10^3/uL (0.83-4.51); Absolute Neutrophil Count 5.9 X10^3/uL (2.0-7.7); Basophil# 0.08 X10^3/uL; Basophil% 0.9 % (0-1); Eosinophil# 0.37 X10^3/uL; Hematocrit 50.3 % (40-54); Hemoglobin 16.1 g/dL (13.0-16.5); Lymphocyte # 2.13 X10^3/ul (0.83-4.51); Lymphocyte % 23.3 % (19-41); Mean Corpuscular Volume 87.5 fL (80-94); Mean Platelet Vol. 10.8 fl (6.2-12.0); Monocyte# 0.69 X10^3/uL; Monocyte% 7.5 % (0-10); NRBC Flagged by Analyzer 0 % (0-5); Neutrophil # 5.87 X10^3/uL (2.7-7.7); Neutrophil % 64.1 % (47-70); Platelet Count 167 K/mm3 (150-450); RBC Distribution Width CV 15.3 % (11.6-14.6); RBC Distribution Width SD 48.5 fl (35.1-43.9); Red Blood Count 5.75 M/mm3 (4.6-6.2); White Blood Count 9.2 K/mm3 (4.4-11.0)
[2022-12-31 12:01] LABS: Color, Urine Yellow (Yellow); Glucose, Dipstick Normal (Normal); Ketone-Dipstick Negative (Negative); Leukocyte Esterase-Dipstick 25 /ul (Negative); Nitrite-Dipstick Negative (Negative); Occult Blood-Urine Negative /ul (Negative); Protein-Dipstick 30 mg/dl (Negative); Urine Bilirubin Dipstick Negative (Negative); Urine Clarity Clear (Clear); Urine Urobilinogen Normal (Normal)
[2022-12-31 12:22] LABS: Microalbumin:Creatinine Ratio 82.6 mg/g CRE (<30 mg/g CRE)
[2022-12-31 13:20] LABS: Albumin, Serum 2.9 g/dL (3.2-5.0); BUN 21 mg/dL (7-18); BUN/Creat Ratio 10.7 RATIO (10-20); Calcium,Total 8.7 mg/dL (8.5-10.1); Chloride 108 mmol/L (98-107); Creatinine, Serum 1.97 mg/dL (0.70-1.30); EST Glomerular Filtration Rate 36 mL/min (>60); Est Glom Filt Rate - Afr Amer 44 mL/min (>60); Glucose 142 mg/dL (74-106); Phosphorus 3.1 mg/dL (2.5-4.9); Potassium 4.2 mmol/L (3.5-5.1); Sodium Level 139 mmol/L (136-145); Uric Acid 4.7 mg/dL (3.5-7.2)
== END | disposition home or self-care (01) ==
LOC: LAB 10:54
PROVIDERS: PCP Internal Medicine
DX: E11.21 Type 2 diabetes mellitus with diabetic nephropathy (principal); E11.22 Type 2 diabetes mellitus with diabetic chronic kidney disease; I12.9 Hypertensive chronic kidney disease with stage 1 through stage 4 chronic kidney disease, or unspecified chronic kidney disease; N18.9 Chronic kidney disease, unspecified; D63.1 Anemia in chronic kidney disease
CPT/HCPCS: 36415; 80069; 81002; 82043; 82570; 84550; 85025

== ENCOUNTER 2023-02-21 18:20 | Emergency (ER) | payer MEDICARE, BC, SELFPAY ==
[2023-02-21 18:22] VITALS: BP 152/62; PULSE 79; RESP 18; TEMP 36.4; O2SAT 98
[2023-02-21 19:16] LABS: Absolute Lymphocyte Count 1.75 X10^3/uL (0.83-4.51); Absolute Neutrophil Count 8.7 X10^3/uL (2.0-7.7); Basophil# 0.06 X10^3/uL; Basophil% 0.5 % (0-1); Eosinophil# 0.29 X10^3/uL; Eosinophils% 2.4 % (0-5); Hematocrit 48.9 % (40-54); Hemoglobin 15.4 g/dL (13.0-16.5); Lymphocyte # 1.75 X10^3/ul (0.83-4.51); Lymphocyte % 14.8 % (19-41); Mean Corp Hgb Conc 31.5 g/dL (32-36); Mean Corpuscular Hgb 27.8 pg (27.0-32.0); Mean Corpuscular Volume 88.4 fL (80-94); Mean Platelet Vol. 10.4 fl (6.2-12.0); Monocyte# 1.04 X10^3/uL; Monocyte% 8.8 % (0-10); NRBC Flagged by Analyzer 0 % (0-5); Neutrophil # 8.65 X10^3/uL (2.7-7.7); Neutrophil % 73.1 % (47-70); Platelet Count 226 K/mm3 (150-450); RBC Distribution Width CV 15.8 % (11.6-14.6); RBC Distribution Width SD 51.2 fl (35.1-43.9); Red Blood Count 5.53 M/mm3 (4.6-6.2); White Blood Count 11.8 K/mm3 (4.4-11.0)
[2023-02-21 19:22] LABS: Bacteria 0 SEEN /hpf (None Seen); Mucous, Urine 0 SEEN /hpf (<or=2+); Red Blood Cells-Urine 0 SEEN /hpf (0-5); Squamous Epithelial Cells - UA 0 SEEN /hpf (0-5)
[2023-02-21 19:23] LABS: Color, Urine Yellow (Yellow); Glucose, Dipstick Normal (Normal); Ketone-Dipstick Negative (Negative); Leukocyte Esterase-Dipstick 25 /ul (Negative); Nitrite-Dipstick Negative (Negative); Occult Blood-Urine Negative /ul (Negative); Protein-Dipstick 30 mg/dl (Negative); Specific Gravity, Urine 1.015 (1.002-1.030); Urine Bilirubin Dipstick Negative (Negative); Urine Clarity Clear (Clear); Urine Urobilinogen Normal (Normal)
[2023-02-21 19:27] LABS: ALB/GLOB Ratio 0.7 RATIO (0.9-2.4); AST(SGOT) 26 U/L (15-37); Alanine Aminotransfer ALT/SGPT 31 U/L (16-61); Albumin, Serum 3.1 g/dL (3.2-5.0); Alkaline Phosphatase 115 U/L (45-117); Anion Gap 2 (5-15); BUN 26 mg/dL (7-18); BUN/Creat Ratio 12.6 RATIO (10-20); Calcium,Total 8.9 mg/dL (8.5-10.1); Chloride 108 mmol/L (98-107); Creatinine, Serum 2.06 mg/dL (0.70-1.30); EST Glomerular Filtration Rate 34 mL/min (>60); Est Glom Filt Rate - Afr Amer 41 mL/min (>60); Globulin 4.2 g/dL (2.2-4.2); Glucose 119 mg/dL (74-106); Lipase 52 U/L (13-75); Protein, Total 7.3 g/dL (6.4-8.2); Sodium Level 138 mmol/L (136-145)
--- NOTE | 2023-02-21 19:40 | CT_ITS ---
STUDY: CT ABDOMEN AND PELVIS WITH CONTRAST REASON FOR EXAM: Male, 67 years old. abdominal pain RADIATION DOSAGE (If Supplied By Facility): CTDIvol = ( 20.58 ) mGy, DLP = ( 1492.26 ) mGycm TECHNIQUE: Transaxial images were obtained from the dome of the diaphragm to the symphysis pubis without oral contrast. IV 75mL Isovue-370 was administered. Sagittal and coronal images were reconstructed. Individualized dose optimization techniques were used for this CT. COMPARISON: None. FINDINGS: The visualized lung bases are unremarkable. The visualized portions of the heart are within normal limits. Normal liver. Contracted thick-walled gallbladder without calcified stones possibly physiologic.. Normal spleen. Normal pancreas. Right adrenal is normal. Tiny hypoattenuated left adrenal nodule measuring 1.3 x 2.9 cm likely nonfunctioning adenoma. There is no evidence for renal obstruction. There are 3 small simple cysts in the right kidney and one in the left which will not require additional imaging. Normal visualized stomach. Mild ileus with diffuse fecal retention in the colon and rectal impaction. . No evidence for acute appendicitis.. Atherosclerotic changes of the aorta without evidence for aneurysm. Normal inferior vena cava. Normal retroperitoneum. Mild nonspecific prominence of the prostate. Incompletely distended thick walled bladder likely of no significance Bilateral fat-containing inguinal hernias slightly worse on the right. Lumbar spine demonstrates degenerative change. Postsurgical changes of the lumbar spine at L3-4, L4-5 and L5-S1 CT/Abdomen/Pelvis W IV Cont ONLY IMPRESSION: Nonspecific ileus diffuse fecal retention in the colon and rectal impaction.. Contracted thick-walled gallbladder without calcified stones likely physiologic however if concern for gallbladder disease ultrasound recommended Other findings as above Electronically Signed: David Garrett MD at 21:45 EDT ,
--- NOTE | 2023-02-21 20:22 | ED.VIS.GI ---
HPI HPI - GI History of Present Illness Chief Complaint: Constipation Narrative Narrative: 67-year-old male presenting with constipation. He states been about 9 or 10 days since he had a bowel movement. He has not passed 3 much gas either. Patient states he is not on any narcotics or anything that would stop him from bowel movement. He states he is normally not constipated. He has had recent surgery on his left foot by Dr. Espinal. He has had trouble with wound healing and now has a wound VAC. He does not feel systemically ill. He has tried Dulcolax, MiraLAX, magnesium citrate, enemas at home without any relief. Patient denies any history of abdominal surgeries. No history of bowel obstruction. [facility] Medical History Atherosclerotic heart disease of [place] coronary artery without angina pectoris Back pain BiPAP (biphasic positive airway pressure) dependence Cancer Cardiology follow-up encounter Chest pain CKD (chronic kidney disease), stage III COPD (chronic obstructive pulmonary disease) Diabetes mellitus Dietary restriction DVT (deep venous thrombosis) Essential hypertension Former tobacco use History of echocardiogram History of edema History of kidney cancer History of stress test Insomnia Insulin dependent diabetes mellitus Myocardial infarct Obesity CAMACHO (obstructive sleep apnea) Osteomyelitis Osteomyelitis of foot, left, acute Other acute osteomyelitis, left ankle and foot Peripheral neuropathy Polycythemia secondary to hypoxia Preoperative evaluation to rule out surgical contraindication Sepsis Status post debridement of ulcer of heel Type 2 diabetes mellitus with diabetic polyneuropathy Uses wheelchair Wears hearing aid in both ears Home Medications ascorbic acid (vitamin C) 1,000 mg tablet 1,000 mg PO DAILY vitamin 07/11/20 [History Last Taken 05/27/21] aspirin 81 mg chewable tablet 81 mg PO DAILY@0800 heart health 07/11/20 [History Last Taken 05/27/21] atorvastatin 80 mg tablet 80 mg PO QHS cholesterol 07/11/20 [History Last Taken 05/27/21] carvedilol 12.5 mg tablet 12.5 mg PO .17-00,QHS blood pressure 08/17/20 [History Last Taken 06/01/21 08:10] zinc sulfate 50 mg zinc (220 mg) capsule 50 mg PO DAILY supplement 06/29/21 [History Last Taken Unknown] losartan 50 mg tablet 50 tab PO QHS 11/05/21 [History Last Taken Unknown] amlodipine 10 mg tablet 10 mg PO QHS 11/23/21 [History Last Taken Unknown] glipizide 10 mg tablet 10 mg PO BID 05/09/22 [History Last Taken Unknown] insulin glargine-yfgn 100 unit/mL (3 mL) subcutaneous pen 20 unit subcut QHS 05/09/22 [History Last Taken Unknown] insulin lispro 100 unit/mL subcutaneous pen (Humalog KwikPen (U-100) Insulin) 7 unit subcut TID 05/09/22 [History Last Taken Unknown] gabapentin 600 mg tablet 600 mg PO TIDCM 3 months #270 tabs 08/02/22 [Rx Last Taken Unknown] sildenafil 100 mg tablet 100 mg PO DAILY PRN sexual activity #30 tabs 08/02/22 [Rx Last Taken Unknown] magnesium 250 mg tablet 250 mg PO DAILY 11/22/22 [History Last Taken Unknown] oxycodone-acetaminophen 10 mg-325 mg tablet 1 tab PO PRN PRN pain 11/22/22 [History Last Taken Unknown] vitamin B complex (Balanced B-50 tablet) 1 tab PO DAILY 11/22/22 [History Last Taken Unknown] trazodone 50 mg tablet 50 mg PO QHS PRN insomnia #90 tabs 01/29/23 [Rx Last Taken Unknown] Allergy/AdvReac Type Severity Reaction Status Date / Time No Known Allergies Allergy Verified 02/21/23 18:22 Family History Father CVA (cerebral vascular accident) Myocardial infarction Mother Dementia Surgical History History of appendectomy History of coronary artery stent placement (~08/13/07) History of fusion of cervical spine History of surgery on arm Hx of foot surgery Hx of hand surgery Hx of partial nephrectomy Previous back surgery Social History household members: none Smoking Status: Light Smoker (<10/day) Tobacco: How many years used: 50 how long ago did patient quit smoking: Smoked ~1/2 ppd x 50 years until quit. alcohol intake: never substance use type: does not use caffeine: Yes Type: coffee Number of servings: 1 ROS ROS ED Review of Systems ROS Unobtainable: Denies due to encephalopathy Constitutional Constitutional ED: Denies chills or fever(s) ENT ENT ED: Denies rhinorrhea Cardiovascular Cardiovascular: Denies chest pain or palpitations Respiratory/Chest Respiratory/Chest: Denies cough or dyspnea Gastrointestinal Gastrointestinal: Reports abdominal pain, constipation, nausea and vomiting Genitourinary Genitourinary ED: Denies dysuria or hematuria Musculoskeletal Musculoskeletal: Denies arthralgias Integumentary Denies abscess or Abrasions Neurologic Neurologic: Denies headache(s) or paresthesias Psychiatric Psychiatric: Denies anxiety or depression Endocrine Endocrinology: Denies polydipsia or polyphagia EXAM Physical Exam Const Vital Signs: 02/21/23 18:22 Temperature 97.5 F L Temperature Source Temporal Pulse Rate 79 Respiratory Rate 18 Blood Pressure 152/62 H Blood Pressure Mean 92 Pulse Ox 98 Oxygen Delivery Method Room Air Positive well nourished General Appearance ED: Negative for pallor HEENT Reports moist mucous membranes normocephalic Eyes PERRL and EOMs intact bilaterally Resp normal respiratory effort and clear to auscultation bilaterally Cardio regular rate and regular rhythm GI non-tender and non-distended Auscultation: hypoactive bowel sounds Palpation: Negative for guarding or rigid Neuro CN's II-XII intact bilaterally, moves all extremities and no sensory deficits noted Sensorium / Orientation: alert Motor Exam: strength 5/5 throughout Psych mental status grossly normal and thought process normal Skin General Skin Exam: Negative for jaundice or pallor MDM MDM MDM Narrative Medical decision making narrative: Patient presented with constipation for 10 days. He has also had some nausea and vomiting. Differential includes constipation, dehydration, electrolyte abnormalities, bowel obstruction, pancreatitis, colitis, diverticulitis. CBC will be obtained to assess white blood cell count, hemoglobin, platelets. BMP to assess liver function, electrolytes, glucose. Lipase to assess for pancreatitis. Urinalysis to assess for UTI. Obtain a CT of the abdomen pelvis with IV contrast to rule out obstruction or other acute pathology. Patient has 11.8 white count. Hemoglobin stable 15.4. Platelets are normal at 226. Creatinine is near baseline at 2.06. Otherwise CMP is unremarkable. Lipase is normal. Urinalysis negative for infection. I did attempt to give the patient IV fluids because he has a history of chronic kidney disease and I gave him IV contrast dye but he refuses fluids and states this is not his problem. His CT of the abdomen pelvis shows diffuse constipation and impaction. Patient given a soapsuds enema and he is able to have a large bowel movement and feels much better. I recommended continuing laxatives and stool softeners at home. Return precautions were discussed. Patient discharged stable condition. Impression: 1. Abdominal pain 2. Constipation 3. Nausea Lab Data Attestation: I reviewed the patient's lab results. Labs: Laboratory Results - last 24 hr 02/21/23 02/21/23 19:00 19:15 WBC 11.8 H RBC 5.53 Hgb 15.4 Hct 48.9 MCV 88.4 MCH 27.8 MCHC 31.5 L RDW Std Deviation 51.2 H RDW Coeff of Darrell 15.8 H Plt Count 226 MPV 10.4 Immature Gran % (Auto) 0.400 Neut % (Auto) 73.1 H Lymph % (Auto) 14.8 L Weston % (Auto) 8.8 Eos % (Auto) 2.4 Baso % (Auto) 0.5 Absolute Neuts (auto) 8.7 H Absolute Lymphs (auto) 1.75 Nucleated RBC % 0 Sodium 138 Potassium 4.0 Chloride 108 H Carbon Dioxide 28.0 Anion Gap 2 L BUN 26 H Creatinine 2.06 H Est GFR (MDRD) Af Amer 41 L Est GFR (MDRD) Non-Af 34 L BUN/Creatinine Ratio 12.6 Glucose 119 H Calcium 8.9 Total Bilirubin 0.50 AST 26 ALT 31 Alkaline Phosphatase 115 Total Protein 7.3 Albumin 3.1 L Globulin 4.2 Albumin/Globulin Ratio 0.7 L Lipase 52 Urine Color Yellow Urine Clarity Clear Urine pH 6.0 Ur Specific Eldon 1.015 Urine Protein 30 H Urine Glucose (UA) Normal Urine Ketones Negative Urine Occult Blood Negative Urine Nitrite Negative Urine Bilirubin Negative Urine Urobilinogen Normal Ur Leukocyte Esterase 25 H Urine RBC 0 SEEN Urine WBC 0-5 SEEN Ur Squamous Epith Cells 0 SEEN Urine Bacteria 0 SEEN Urine Mucus 0 SEEN Radiography Diagnostic Testing: Clinical Impression(s) from Imaging Studies Abdomen/Pelvis CT 02/21/23 19:40 IMPRESSION: Nonspecific ileus diffuse fecal retention in the colon and rectal impaction.. Contracted thick-walled gallbladder without calcified stones likely physiologic however if concern for gallbladder disease ultrasound recommended Other findings as above Electronically Signed: David Garrett MD at 21:45 EDT , Discharge Plan Triage Chief Complaint: Constipation ED Provider: Oscar Mitchell Dx/Rx/DC Orders Instructions: ED Constipation (Adult) Prescriptions: No Action amlodipine 10 mg tablet 10 mg PO QHS glipizide 10 mg tablet 10 mg PO BID insulin glargine-yfgn 100 unit/mL (3 mL) insulin pen 20 unit subcut QHS insulin lispro [Humalog KwikPen Insulin] 100 unit/mL insulin pen 7 unit subcut TID Rx Instructions: sliding scale with meals sildenafil 100 mg tablet 100 mg PO DAILY PRN (Reason: sexual activity) Qty: 30 3RF Rx Instructions: administer 30 minutes to 4 hours before activity gabapentin 600 mg tablet 600 mg PO TIDCM 90 Days Qty: 270 3RF trazodone 50 mg tablet 50 mg PO QHS PRN (Reason: insomnia) Qty: 90 1RF atorvastatin 80 MG tablet 80 mg PO QHS ascorbic acid (vitamin C) 1,000 MG tablet 1,000 mg PO DAILY aspirin 81 MG tablet,chewable 81 mg PO DAILY@0800 carvedilol 12.5 MG tablet 12.5 mg PO .17-00,QHS zinc sulfate 50 mg zinc (220 mg) capsule 50 mg PO DAILY losartan 50 mg tablet 50 tab PO QHS Patient Comments: Take 1 tablet by mouth once daily. oxycodone-acetaminophen 10-325 mg tablet 1 tab PO PRN PRN (Reason: pain) Patient Comments: TAKE 1 TABLET EVERY 6 HOURS NEEDED. vitamin B complex [Balanced B-50] Tablet 1 tab PO DAILY magnesium 250 mg tablet 250 mg PO DAILY Primary Care Provider: Emmett Rosario Referrals: Emmett Rosario MD [Primary Care Provider] - Disposition Disposition: Home, Self Care
[2023-02-21 20:24] LABS: White Blood Cells 0-5 SEEN /hpf (0-5)
[2023-02-21 23:30] VITALS: BP 144/60; PULSE 79; RESP 18
== END 2023-02-21 23:31 | disposition home or self-care (01) ==
PROVIDERS: Emergency Provider Student in an Organized Health Care Education/Training Program; PCP Internal Medicine; Visit Provider Student in an Organized Health Care Education/Training Program
DX: R10.9 Unspecified abdominal pain (principal); N18.30 Chronic kidney disease, stage 3 unspecified; K59.00 Constipation, unspecified; R11.0 Nausea; I25.10 Atherosclerotic heart disease of native coronary artery without angina pectoris; I25.2 Old myocardial infarction; G47.33 Obstructive sleep apnea (adult) (pediatric); Z86.718 Personal history of other venous thrombosis and embolism; Z95.5 Presence of coronary angioplasty implant and graft; Z87.891 Personal history of nicotine dependence
CPT/HCPCS: 74177; 80053; 81001; 83690; 85025; 99285; Q9967; A4216

== ENCOUNTER → 2023-04-22 | Outpatient (CLI) | payer MEDICARE, BC, SELFPAY ==
[2023-04-22 11:34] LABS: Erythrocyte Sedimentation Rate 20 mm/hr (0-20)
[2023-04-22 11:35] LABS: Absolute Lymphocyte Count 2.23 X10^3/uL (0.83-4.51); Absolute Neutrophil Count 5.2 X10^3/uL (2.0-7.7); Basophil# 0.09 X10^3/uL; Eosinophil# 0.38 X10^3/uL; Eosinophils% 4.4 % (0-5); Hematocrit 51.7 % (40-54); Hemoglobin 16.2 g/dL (13.0-16.5); Lymphocyte # 2.23 X10^3/ul (0.83-4.51); Lymphocyte % 25.6 % (19-41); Mean Corp Hgb Conc 31.3 g/dL (32-36); Mean Corpuscular Hgb 27.7 pg (27.0-32.0); Mean Corpuscular Volume 88.5 fL (80-94); Mean Platelet Vol. 10.8 fl (6.2-12.0); Monocyte# 0.81 X10^3/uL; Monocyte% 9.3 % (0-10); NRBC Flagged by Analyzer 0 % (0-5); Neutrophil # 5.16 X10^3/uL (2.7-7.7); Neutrophil % 59.4 % (47-70); Platelet Count 218 K/mm3 (150-450); RBC Distribution Width CV 15.5 % (11.6-14.6); RBC Distribution Width SD 49.8 fl (35.1-43.9); Red Blood Count 5.84 M/mm3 (4.6-6.2); White Blood Count 8.7 K/mm3 (4.4-11.0)
[2023-04-22 11:57] LABS: Hemoglobin A1c 6.3 % (3.8-5.6)
[2023-04-22 11:57] LABS: ALB/GLOB Ratio 0.7 RATIO (0.9-2.4); AST(SGOT) 32 U/L (15-37); Alanine Aminotransfer ALT/SGPT 32 U/L (16-61); Alkaline Phosphatase 140 U/L (45-117); Anion Gap 3 (5-15); BUN 18 mg/dL (7-18); BUN/Creat Ratio 9.7 RATIO (10-20); Bilirubin, Direct 0.18 mg/dL (0.00-0.30); CRP 6.17 mg/L (0.0-3.0); Chloride 107 mmol/L (98-107); Cholesterol 113 mg/dL (200); Creatinine, Serum 1.85 mg/dL (0.70-1.30); EST Glomerular Filtration Rate 39 mL/min (>60); Est Glom Filt Rate - Afr Amer 47 mL/min (>60); Globulin 4.2 g/dL (2.2-4.2); Glucose 152 mg/dL (74-106); High Density Lipoprotein 35 mg/dL; Potassium 4.4 mmol/L (3.5-5.1); Prealbumin 20.1 mg/dL (20.0-40.0); Protein, Total 7.2 g/dL (6.4-8.2); Sodium Level 139 mmol/L (136-145); Triglycerides 106 mg/dL; Very Low Density Lipoprotein 21 mg/dL (5-40)
== END | disposition home or self-care (01) ==
LOC: LAB 09:57
PROVIDERS: Nurse Practitioner Family; PCP Internal Medicine; Referring Provider Podiatrist; Visit Provider Podiatrist
DX: L97.522 Non-pressure chronic ulcer of other part of left foot with fat layer exposed (principal); E11.621 Type 2 diabetes mellitus with foot ulcer
CPT/HCPCS: 36415; 80053; 80061; 82248; 83036; 84134; 85025; 85652; 86140

== ENCOUNTER → 2023-05-26 | Outpatient (CLI) | payer MEDICARE, BC, SELFPAY ==
[2023-05-26 10:35] LABS: Bacteria 0 SEEN /hpf (None Seen); Mucous, Urine 0 SEEN /hpf (<or=2+); Red Blood Cells-Urine 0 SEEN /hpf (0-5); Squamous Epithelial Cells - UA 0 SEEN /hpf (0-5); White Blood Cells 0 SEEN /hpf (0-5)
[2023-05-26 12:24] LABS: Color, Urine Yellow (Yellow); Glucose, Dipstick Normal (Normal); Ketone-Dipstick Negative (Negative); Leukocyte Esterase-Dipstick Negative /ul (Negative); Nitrite-Dipstick Negative (Negative); Occult Blood-Urine Negative /ul (Negative); Protein-Dipstick 30 mg/dl (Negative); Urine Bilirubin Dipstick Negative (Negative); Urine Clarity Clear (Clear); Urine Urobilinogen Normal (Normal)
[2023-05-26 13:11] LABS: Anion Gap 2 (5-15); BUN 30 mg/dL (7-18); BUN/Creat Ratio 15.7 RATIO (10-20); Calcium,Total 8.8 mg/dL (8.5-10.1); Chloride 108 mmol/L (98-107); Creatinine, Serum 1.91 mg/dL (0.70-1.30); EST Glomerular Filtration Rate 37 mL/min (>60); Est Glom Filt Rate - Afr Amer 45 mL/min (>60); Glucose 166 mg/dL (74-106); Potassium 4.5 mmol/L (3.5-5.1); Sodium Level 141 mmol/L (136-145)
== END | disposition home or self-care (01) ==
LOC: BIMLAB 10:00
PROVIDERS: PCP Internal Medicine; Referring Provider Internal Medicine; Visit Provider Internal Medicine
DX: N18.30 Chronic kidney disease, stage 3 unspecified (principal)
CPT/HCPCS: 36415; 80048; 81001

== ENCOUNTER → 2023-06-25 | Outpatient (CLI) | payer MEDICARE, BC, SELFPAY ==
[2023-06-25 10:46] LABS: Bacteria 0 SEEN /hpf (None Seen); Mucous, Urine 0 SEEN /hpf (<or=2+); Red Blood Cells-Urine 0 SEEN /hpf (0-5); Squamous Epithelial Cells - UA 0 SEEN /hpf (0-5); White Blood Cells 0 SEEN /hpf (0-5)
[2023-06-25 11:19] LABS: Color, Urine Yellow (Yellow); Glucose, Dipstick Normal (Normal); Ketone-Dipstick Negative (Negative); Leukocyte Esterase-Dipstick Negative /ul (Negative); Nitrite-Dipstick Negative (Negative); Occult Blood-Urine Negative /ul (Negative); Protein-Dipstick 30 mg/dl (Negative); Specific Gravity, Urine 1.015 (1.002-1.030); Urine Bilirubin Dipstick Negative (Negative); Urine Clarity Clear (Clear); Urine Urobilinogen Normal (Normal)
[2023-06-25 12:08] LABS: PTHIN 44.4 pg/mL (18.4-80.1)
[2023-06-25 12:13] LABS: Vitamin D,25 Hydroxy 49.1 ng/mL
[2023-06-25 12:14] LABS: Microalbumin,Random Urine 82.7 mg/L (NO RANGE EST.); Microalbumin:Creatinine Ratio 71.3 mg/g CRE (<30 mg/g CRE)
[2023-06-25 12:18] LABS: Albumin, Serum 3.3 g/dL (3.2-5.0); BUN 34 mg/dL (7-18); Calcium,Total 9.4 mg/dL (8.5-10.1); Chloride 110 mmol/L (98-107); Creatinine, Serum 2.13 mg/dL (0.70-1.30); EST Glomerular Filtration Rate 33 mL/min (>60); Est Glom Filt Rate - Afr Amer 40 mL/min (>60); Glucose 136 mg/dL (74-106); Phosphorus 3.6 mg/dL (2.5-4.9); Potassium 4.1 mmol/L (3.5-5.1); Sodium Level 140 mmol/L (136-145); Uric Acid 5.4 mg/dL (3.5-7.2)
== END | disposition home or self-care (01) ==
LOC: LAB 10:41
PROVIDERS: PCP Internal Medicine
DX: E11.22 Type 2 diabetes mellitus with diabetic chronic kidney disease (principal); E11.21 Type 2 diabetes mellitus with diabetic nephropathy; N18.32 Chronic kidney disease, stage 3b; E55.9 Vitamin D deficiency, unspecified; I12.9 Hypertensive chronic kidney disease with stage 1 through stage 4 chronic kidney disease, or unspecified chronic kidney disease; E79.0 Hyperuricemia without signs of inflammatory arthritis and tophaceous disease; R80.8 Other proteinuria
CPT/HCPCS: 36415; 80069; 81001; 82043; 82306; 82570; 83970; 84550

== ENCOUNTER → 2023-07-02 | Outpatient (CLI) | payer MEDICARE, BC, SELFPAY ==
--- NOTE | 2023-07-02 12:52 | ART_ITS ---
Reason For Study: PVD Procedure A bilateral lower extremity continuous wave Doppler with analog waveform analysis,segmental pressures,and ankle brachial indexes without exercise. Left Segmental Pressures Left brachial= 113mmHg. Left posterior tibial artery = 131mmHg. Left dorsalis pedis artery = 131mmHg. Left digit = 103 mmHg. The left posterior tibial artery waveforms are triphasic. The left dorsalis pedis waveforms are triphasic. Right Segmental Pressures Right brachial= 111mmHg. Right posterior tibial artery = 153mmHg. Right dorsalis pedis artery = 145mmHg. Right digit = 102 mmHg. The right posterior tibial artery waveforms are triphasic. The right dorsalis pedis waveforms are triphasic. Indices The right ankle brachial index by the posterior tibial artery is 1.35. The right ankle brachial index by the dorsalis pedis is 1.28. The right digital-brachial index is 0.90. The left ankle brachial index by the posterior tibial artery is 1.16. The left ankle brachial index by the dorsalis pedis is 1.16. The left digital-brachial index is 0.91. VL/Lower Ext Art Exam w/o Exercis Interpretation Summary Right LAI 1.35, normal. TBI and Doppler/PVR waveforms of the right leg normal a t rest. Left LAI 1.16, normal. TBI and Doppler/PVR waveforms of the left leg normal at rest. Ordering Physician: August Espinal Referring Physician: Emmett Rosario Performed By: Ignacio Grady, RVT
== END | disposition home or self-care (01) ==
PROVIDERS: PCP Internal Medicine; Referring Provider Podiatrist; Visit Provider Podiatrist
DX: I73.9 Peripheral vascular disease, unspecified (principal)
CPT/HCPCS: 93923; 93924

== ENCOUNTER → 2023-07-15 | Outpatient (CLI) | payer MEDICARE, BC, SELFPAY ==
--- NOTE | 2023-07-15 12:45 | MRI_ITS ---
STUDY: MR PELVIS WITHOUT CONTRAST REASON FOR EXAM: Male, 67 years old. RUQ PAIN, RENAL MASS, ABDOMINAL ABSCESS TECHNIQUE: Standardized fat and water weighted pulse sequences were obtained in all 3 orthogonal planes. COMPARISON: CT of abdomen and pelvis dated February 21, 2023. MRI of the abdomen dated July 15, 2023 FINDINGS: Normal urinary bladder. No visualized bladder masses or stones or filling defects. Normal visualized small intestine. There are multiple colonic diverticula of the sigmoid colon consistent with chronic diverticulosis. The central aspect of the prostate gland is heterogeneous, without visualization of a discrete mass. There is no pelvic fluid. There is no pelvic mass lesion or lymphadenopathy. There is diffuse atherosclerotic calcification of the pelvic arteries with elongation and tortuosity. There are diffuse degenerative changes of the visualized lumbar spine. Lumbar spine hardware and chronic postoperative changes noted. Normal abdominal wall. MRI/Pelvis (Routine) IMPRESSION: 1. Colonic diverticulosis 2. No visualized pelvic lymphadenopathy or fluid collections Electronically Signed: Eugene Bey MD at 11:10 EST Reading Location ID and State: [facility] / [place] , Service support ,
--- NOTE | 2023-07-15 12:45 | MRI_ITS ---
STUDY: MRI ABDOMEN WITHOUT CONTRAST REASON FOR EXAM: Male, 67 years old. ABDOMINAL ABSCESS, RENAL MASS, RUQ PAIN no known trauma, L back pain, discomfort to front low abdomen/pelvis, hx Lt kidney cancer TECHNIQUE: Standardized fat and water weighted pulse sequences were obtained in all 3 orthogonal planes. COMPARISON: CT of abdomen and pelvis dated February 21, 2023. FINDINGS: The visualized lung bases are unremarkable. The visualized portions of the heart are within normal limits. Normal liver. Normal gallbladder and extrahepatic biliary system. Normal spleen. Normal pancreas. Normal bilateral adrenal glands. Reidentification of multiple small cysts of both kidneys which do not require any additional imaging or evaluation. Right parapelvic cysts are also present. No solid renal masses or hydronephrosis is present. There is no evidence of a renal abscess on this exam. Normal visualized stomach. Normal small intestine. Normal colon. The appendix is visualized and appears normal. Normal abdominal aorta. Normal inferior vena cava. Normal retroperitoneum. Normal abdominal wall. There are diffuse degenerative changes of the visualized lumbar spine. Lumbar spine hardware is present. MRI/Abdomen without Contrast IMPRESSION: 1. No acute or significant process on this unenhanced MRI of the abdomen. 2. Reidentification of multiple small cysts of both kidneys which do not require any additional imaging or evaluation. Right parapelvic cysts are also present. No solid renal masses or hydronephrosis is present. There is no evidence of a renal abscess on this exam. Electronically Signed: Eugene Bey MD at 11:07 EST ,
== END | disposition home or self-care (01) ==
LOC: MRI 12:33
PROVIDERS: PCP Internal Medicine
DX: R10.11 Right upper quadrant pain (principal); C64.2 Malignant neoplasm of left kidney, except renal pelvis; K65.9 Peritonitis, unspecified; N28.89 Other specified disorders of kidney and ureter; R31.21 Asymptomatic microscopic hematuria; R63.4 Abnormal weight loss; Z90.5 Acquired absence of kidney
CPT/HCPCS: 72195; 74181

== ENCOUNTER → 2023-07-23 | Outpatient (CLI) | payer MEDICARE, BC, SELFPAY ==
[2023-07-23 17:13] LABS: Anion Gap 2 (5-15); BUN 31 mg/dL (7-18); BUN/Creat Ratio 14.8 RATIO (10-20); Chloride 108 mmol/L (98-107); Creatinine, Serum 2.09 mg/dL (0.70-1.30); EST Glomerular Filtration Rate 34 mL/min (>60); Est Glom Filt Rate - Afr Amer 41 mL/min (>60); Glucose 170 mg/dL (74-106); PSA,Total - Annual Screen 4.37 ng/mL (0.00-4.00); Potassium 4.8 mmol/L (3.5-5.1); Sodium Level 139 mmol/L (136-145)
== END | disposition home or self-care (01) ==
LOC: BIMLAB 15:16
PROVIDERS: PCP Internal Medicine; Visit Provider Internal Medicine
DX: I10 Essential (primary) hypertension (principal); Z12.5 Encounter for screening for malignant neoplasm of prostate
CPT/HCPCS: 36415; 80048; 84153; G0103

== ENCOUNTER → 2023-08-15 | Outpatient (CLI) | payer MEDICARE, BC, SELFPAY ==
--- NOTE | 2023-08-15 12:57 | STRESSREP ---
Stress Test Report Pharmacologic myocardial perfusion stress test. 67-year-old male with a history of coronary disease preop for surgery Resting EKG demonstrates sinus rhythm with a rate of 58 bpm. Resting blood pressure is 110/62 mmHg. 0.4 mg of regadenoson was infused per usual protocol followed by rapid intravenous saline flush injection. Continuous EKG monitoring was performed. The maximum heart rate was 76 bpm which was 50% of max impacted heart rate the maximum workload was 1 metabolic equivalent. At rest there were no ST or T wave changes noted to suggest ischemia and at peak infusion nonspecific ST changes were noted which did not meet the criteria for ischemia. No clinical angina is noted. The final blood pressure was 104/60 mmHg. Myocardial perfusion protocol. 13.9 mCi of technetium 99m sestamibi was injected at rest. 0.4 mg of regadenoson was infused per usual protocol. At peak infusion 43 point mCi of technetium 99m sestamibi was injected stress images were obtained stress and rest images were reconstructed and compared in the short axis vertical long and horizontal long axis. Gated images were also obtained. Perfusion SPECT analysis: Review of the stress images demonstrate normal uptake of tracer noted in all areas of the myocardium. The resting images similar demonstrated normal uptake of tracer noted in all areas of the myocardium. No areas of reversibility are noted to suggest ischemia and no previous infarct is noted. Gated SPECT analysis: The gated ejection fraction is 65%. Conclusion: Normal pharmacologic myocardial perfusion stress test. Preserved ejection fraction.
== END | disposition home or self-care (01) ==
LOC: CVS 06:13
PROVIDERS: PCP Internal Medicine; Referring Provider Nurse Practitioner Family; Visit Provider Nurse Practitioner Family
DX: Z01.818 Encounter for other preprocedural examination (principal); E11.42 Type 2 diabetes mellitus with diabetic polyneuropathy; E11.22 Type 2 diabetes mellitus with diabetic chronic kidney disease; Z79.4 Long term (current) use of insulin; N18.30 Chronic kidney disease, stage 3 unspecified; I25.10 Atherosclerotic heart disease of native coronary artery without angina pectoris
CPT/HCPCS: 78452; 93017; A9500; A4216; J2785

== ENCOUNTER 2023-08-19 09:36 | Inpatient (IN) | payer MEDICARE, BC, SELFPAY ==
--- NOTE | 2023-08-15 06:24 | EKG12_ITS ---
Test Reason : PRE OP Blood Pressure : / mmHG Vent. Rate : 059 BPM Atrial Rate : 059 BPM P-R Int : 390 ms QRS Dur : 110 ms QT Int : 438 ms P-R-T Axes : 015 -52 047 degrees QTc Int : 433 ms Sinus bradycardia with 1st degree A-V block Left axis deviation Right bundle branch block Inferior infarct , age undetermined Anteroseptal infarct , age undetermined Abnormal ECG Confirmed by AALIYAH SANCHEZ, RUDDY ([id number]), purchase request editor ALAN HERRERA ([id number]) on 08/15/2023 1:00:25 PM Referred By: ELZA GONZALEZ Confirmed By:RUDDY FISCHER MD
[2023-08-15 09:03] LABS: Hematocrit 50.5 % (40-54); Hemoglobin 16.2 g/dL (13.0-16.5); Mean Corp Hgb Conc 32.1 g/dL (32-36); Mean Corpuscular Hgb 28.1 pg (27.0-32.0); Mean Corpuscular Volume 87.7 fL (80-94); Mean Platelet Vol. 10.5 fl (6.2-12.0); Platelet Count 180 K/mm3 (150-450); RBC Distribution Width CV 15.7 % (11.6-14.6); RBC Distribution Width SD 49.9 fl (35.1-43.9); Red Blood Count 5.76 M/mm3 (4.6-6.2); White Blood Count 8.7 K/mm3 (4.4-11.0)
[2023-08-15 09:26] LABS: Anion Gap 3 (5-15); BUN 22 mg/dL (7-18); BUN/Creat Ratio 11.6 RATIO (10-20); Calcium,Total 9.2 mg/dL (8.5-10.1); Chloride 105 mmol/L (98-107); EST Glomerular Filtration Rate 38 mL/min (>60); Est Glom Filt Rate - Afr Amer 45 mL/min (>60); Glucose 159 mg/dL (74-106); Potassium 4.2 mmol/L (3.5-5.1); Sodium Level 136 mmol/L (136-145)
[2023-08-15 10:14] LABS: Hemoglobin A1c 6.5 % (3.8-5.6)
[2023-08-19] VITALS (17 sets, daily range): BP systolic 97–134; BP diastolic 54–66; PULSE 51–75; RESP 16; TEMP 36.2–36.8; O2SAT 90–98; BMI 28.1
[2023-08-19] MEDS: Lactated Ringers 1,000 ML 15 ML IV ×2 (10:31→16:58)
[2023-08-19 10:53] LABS: Bedside Glucose 146 mg/dL (74-106)
--- NOTE | 2023-08-19 11:00 | AMP_PTH ---
PATIENT: JUAREZ GOODRICH LOC: [id number] U#:[id number] AGE/SX: 67/M ROOM: [facility] RE08/19/[address]: Dr. Toney Baptiste MD : [id number] BED: 1 DIS: 08/22/2023 SPEC #: [id number] RECD: 08/20/23 14:40 STATUS: MALENA REQ #: [id number] GILBERTO: 08/19/23 11:[address]: Toney Baptiste DEPT: SURGICAL PATHOLOGY RECD BY: Carlos Albarran ENTERED: 08/20/23 14:41 SP TYPE: Amputation OTHR DR: Dr. Emmett Rosario MD Tissues: Leg, NOS Procedures: Decalcification bone/plaque Surgery Specimen Level V HEADER OPERATION: Amputation below knee PRE-OP DIAGNOSIS: Non-pressure chronic ulcer of other part of left foot with necrosis of bone TISSUE SUBMITTED: Left leg below the knee MICROSCOPIC DIAGNOSIS Left leg below knee, amputation: Focal area of ulceration with acute and chronic inflammation, plantar surface foot. Bone underlying the area of ulceration with chronical osteomyelitis and minimal acute osteomyelitis. / 08/25/23 MICROSCOPIC DESCRIPTION Slides are reviewed. GROSS DESCRIPTION Received in fixative is one container labeled with the patient's name and designated Left leg below the knee amputation. The specimen consists of below the knee amputation left leg. The leg measures from posterior cutaneous resection margin to the 17th cm. The posterior cutaneous resection margin is 10cm below the anterior cutaneous resection margin. 2.5cm of tibia and 4cm of fibula is projecting beyond the resection margin. The skin shows focal brownish discoloration. A large area of ulceration is noted close to the heel on the planter surface of the foot measuring 3.0 x 2.5cm. A healed scar area is also noted 3 cm distal to it which measures 2.5cm in greatest dimension. Dorsalis pedis, anterior tibia, posterior tibia vessels are dissected. Rehabilitation Physician sections are submitted in seven cassettes as follows: 1- Cutaneous and skeletal muscle tissue resection margin, 2-Ulcerated area and area of scar on the planter surface of foot, 3- Bone marrow at the resection margin, submitted after decalcification, 4- Dorsalis pedis vessels, 5- Anterior tibia vessels, 6- Posterior tibia vessels, 7- Bone underneath area of ulceration, submitted after decalcification. / 08/20/23 TC:2 CPT: 74066,98214
[2023-08-19] MEDS: Cefazolin 2 GM in 0.9% Normal Saline (100mL Bag) 100 ML IV (11:49)
--- NOTE | 2023-08-19 11:50 | HP.PCM_ITS ---
History and Physical Allergies No Known Allergies Allergy (Verified 07/24/23 15:29) Medications ascorbic acid (vitamin C) 1,000 mg tablet 1,000 mg PO DAILY vitamin 07/11/20 [History Confirmed 07/24/23] aspirin 81 mg chewable tablet 81 mg PO DAILY@0800 heart health 07/11/20 [History Confirmed 07/24/23] atorvastatin 80 mg tablet 80 mg PO QHS cholesterol 07/11/20 [History Confirmed 07/24/23] carvedilol 12.5 mg tablet 12.5 mg PO .17-00,QHS blood pressure 08/17/20 [History Confirmed 07/24/23] zinc sulfate 50 mg zinc (220 mg) capsule 50 mg PO DAILY supplement 06/29/21 [History Confirmed 07/24/23] losartan 50 mg tablet 50 tab PO QHS 11/05/21 [History Confirmed 07/24/23] amlodipine 10 mg tablet 10 mg PO QHS 11/23/21 [History Confirmed 07/24/23] glipizide 10 mg tablet 10 mg PO BID 05/09/22 [History Confirmed 07/24/23] insulin glargine-yfgn 100 unit/mL (3 mL) subcutaneous pen 20 unit subcut QHS 05/09/22 [History Confirmed 07/24/23] gabapentin 600 mg tablet 600 mg PO TIDCM 3 months #270 tabs 08/02/22 [Rx Confirmed 07/24/23] sildenafil 100 mg tablet 100 mg PO DAILY PRN sexual activity #30 tabs 08/02/22 [Rx Confirmed 07/24/23] magnesium 250 mg tablet 250 mg PO DAILY 11/22/22 [History Confirmed 07/24/23] oxycodone-acetaminophen 10 mg-325 mg tablet 1 tab PO PRN PRN pain 11/22/22 [History Confirmed 07/24/23] trazodone 50 mg tablet 50 mg PO QHS PRN insomnia #90 tabs 07/23/23 [Rx Confirmed 07/24/23] semaglutide 0.25 mg or 0.5 mg (2 mg/3 mL) subcutaneous pen injector (Ozempic) 0.5 mg subcut QWEEK 07/24/23 [History Confirmed 07/24/23] PFSH Medical History Atherosclerotic heart disease of [place] coronary artery without angina pectoris Back pain BiPAP (biphasic positive airway pressure) dependence BPH (benign prostatic hyperplasia) Cancer Cardiology follow-up encounter Chest pain CKD (chronic kidney disease), stage III COPD (chronic obstructive pulmonary disease) Diabetes mellitus Dietary restriction DVT (deep venous thrombosis) Elevated PSA Essential hypertension Former tobacco use History of echocardiogram History of edema History of kidney cancer History of stress test Insomnia Insulin dependent diabetes mellitus Left flank pain Myocardial infarct Obesity CAMACHO (obstructive sleep apnea) Osteomyelitis Osteomyelitis of foot, left, acute Other acute osteomyelitis, left ankle and foot Peripheral neuropathy Polycythemia secondary to hypoxia Preoperative evaluation to rule out surgical contraindication Sepsis Status post debridement of ulcer of heel Type 2 diabetes mellitus with diabetic polyneuropathy Uses wheelchair Wears hearing aid in both ears Surgical History History of appendectomy History of coronary artery stent placement (~08/13/07) History of fusion of cervical spine History of surgery on arm Hx of foot surgery Hx of hand surgery Hx of partial nephrectomy Previous back surgery Family History Father CVA (cerebral vascular accident) Myocardial infarctionMother Dementia Social History household members: none Smoking Status: Light Smoker (<10/day) Tobacco: How many years used: 50 how long ago did patient quit smoking: Smoked ~1/2 ppd x 50 years until quit. alcohol intake: never substance use type: does not use caffeine: Yes Type: coffee Number of servings: 1 HPI HPI HPI: JUAREZ GOODRICH, is a 67 M who presents to the office today for evaluation of possible left below knee amputation. He has had a chronic left heel wound that has failed to resolve despite prolonged efforts at local care, partial calcanectomy, off loading, several courses of antibiotics. He would prefer to proceed with proximal amputation with goal of walking with a prosthetic. Of note, all of the incisions aside from heel wound have healed with significant issue. He also had episode of rhabdomyolysis/compartment syndrome a few years ago after falling and prolonged period of time down. Those incisions and areas of skin bullae all healed as well. No prior arterial or venous interventions, no leg fractures/implants/joint replacements. He is diabetic with recent A1c 6.3, current smoker. Has CAD, prior PCI about 10 years ago, no recent cardiology follow up. ROS General General: No weight change, appetite, fatigue, colon cancer, breast cancer or weakness HEENT HEENT: Yes eye surgery; No difficulty swallowing, eye injury, swollen glands or hoarseness Endo Endocrine: Yes diabetes mellitus; No thyroid disease, thyroid cancer, Hair loss, heat intolerance or cold intolerance Skin Skin: No rash or changing moles Musc Musculoskeletal: Yes back problems and arthritis; No rheumatoid arthritis, gout or joint pain Cardio Cardiovascular: Yes high blood pressure, heart attack and heart stent; No murmur, pacemaker, heart disease, atrial fibrillation, palpitations, shortness of breat with exertion or chest pain Psych Psychiatric: No depression, anxiety or hearing voices Resp Respiratory: No shortness of breath, Yes sleep apnea, Yes cough, Yes COPD, No asthma, No emphysema and No wheezing Gastro Gastrointestinal: No abdominal pain, No nausea or vomiting, No diarrhea, No constipation, No blood in stool, No acid reflux, No hemorrhoids, No ulcers, No gallbladder problem and No black,tarry stools Neeraj Hematologic: No blood thinners, Yes blood disorders, No bleeding, No anemia and No blood clots Neuro Neurologic: No system reviewed and no additional complaints, except as documented, No as per HPI, No abnormal gait, No abnormal hearing, No abnormal movements, No abnormal speech, No behavioral changes, No burning sensations, No confusion, No convulsions, Yes disequilibrium, No dizziness, No localized weakness, No frequent falls, No headache(s), No lack of coordination, No loss of vision, No memory loss, Yes numbness, No other visual disturbances, Yes radicular pain, No restless legs, No sensory deficit, No syncope, Yes tingling, No tremor(s), No weakness and No other Exam Const General: cooperative, healthy appearing, comfortable, no acute distress and well developed Nutritional Appearance: well nourished Orientation: alert, awake and oriented x3 HENMT Head: normocephalic and atraumatic Ears: hearing grossly normal bilaterally Nose: external nose normal Eyes General: appearance normal, both eyes and all related structures EOM: EOM intact bilaterally Neck Neck: normal visual inspection, full ROM, no lymphadenopathy and trachea midline Thyroid: thyroid normal Lymphatic: no lymphadenopathy noted Resp Effort & Inspection: normal respiratory effort, able to speak in complete sentences, symmetric chest movement, no audible wheezes, not labored, no stridor and no use of accessory muscles Cardio Rate: regular rate Rhythm: regular rhythm Pulses: brachial pulses present, radial pulses present, popliteal pulses pres ent, posterior tibial pulses present and dorsalis pedis present Skin General: no rashes or lesions noted and no erythema Wounds: wounds noted (left heel, ~15 mm) Neuro Cranial Nerves: CN's II-XI intact bilaterally and EOM intact bilaterally Speech: speech normal Gait: normal gait Motor: strength 5/5 throughout Sensory Exam: no sensory deficits noted Psych Appearance: grossly normal and well kempt Mental Status: mental status grossly normal Mood: congruent mood Speech and Movement: speech and movement normal Thought Content: normal Judgment: judgment good Coding Level of Care Code Off vis,new,level 4 Diagnoses Non-pressure chronic ulcer of other part of left foot with necrosis of bone L97.524 Assessment and Plan Assessment and Plan (1) Non-pressure chronic ulcer of other part of left foot with necrosis of bone: Status: Chronic Comment: PVR- Interpretation Summary Right LAI 1.35, normal. TBI and Doppler/PVR waveforms of the right leg normal at rest. Left LAI 1.16, normal. TBI and Doppler/PVR waveforms of the left leg normal at rest. Plan: -chronic wound despite maximal local efforts -normal arterial study -discussed below knee amputation, risks/benefits/alternatives, expectations post op -left BKA
[2023-08-19] MEDS: Bupivacaine Mpf 0.5% 30 ML VIAL (14:00)
--- NOTE | 2023-08-19 14:31 | PCM.OPRPT ---
Report of Operation Date of Procedure: 08/19/23 Pre-Operative Diagnosis: non healing left foot wound Post-Operative Diagnosis: same Surgery/Procedure Performed:: left below knee amputation Surgeon: Toney Baptiste Type of Anesthesia: General Specimen's removed: left foot Estimated Blood Loss (mL): 250 Description of Procedure: HPI: Patient is a 67-year-old male with chronic left heel wound which has been refractory to local care, offloading, and multiple surgical procedures. He has been essentially nonweightbearing for nearly a year in efforts to heal the wound with no significant progress. He has considered his options and presents now for a below the knee amputation. Description of procedure: Upon obtaining informed consent and verification correct patient procedure site patient was taken the operating where he was placed under general anesthesia. He was then positioned prepped and draped in usual sterile fashion a timeout performed. Skin incision was made with posterior flap configuration and Bovie electrocautery was dissect down through the subcutaneous tissue. The patient had previous fasciotomy so there is a significant amount of scar over both the medial and lateral aspects of the lower leg. We dissected down through the scar tissue and on the medial aspect entered into the posterior compartments. Bovie was then utilized to mobilize the soleus muscle from its attachments to the posterior aspect of the tibia exposing the posterior tibial vessels. This was then ligated with silk ties and divided. Next we turned our attention laterally and Bovie electrocautery to dissect down through the scar tissue and into the anterior compartment. Muscles of the anterior compartment were divided until the anterior tibial vessels were identified. These were then ligated with silk ties and divided. The interosseous septum was then divided gaining access into the deep posterior compartment. Dissection was then continued until the peroneal vessels were identified. These were then ligated with silk ties and divided. Bovie was then used to dissect free the connective tissue from the tibia and fibula circumferentially and a periosteal elevator utilized to further mobilize this cephalad. The tibia was then divided with a reciprocating saw with an anterior bevel. The fibula was then divided more superiorly with a reciprocating saw as well. An amputation knife was then used to fashion the posterior flap and complete the amputation. The specimen was then passed off the field. The wound bed was then inspected for hemostasis and the nerve injected with Marcaine and traction neurectomy performed and the nerve placed back into the deep space of the muscle tissue. Patient had significant adipose replacement of the muscles of the posterior compartment and both the gastrocnemius and soleus were essentially fully fat replaced. The soleus muscle was then trimmed significantly to allow tension-free closure. The wound was then copiously irrigated and the tibia smoothed with a rasp. The incision was then closed with 2-0 Vicryl followed by 2-0 nylon for the skin. Splint was then applied and the patient awakened from anesthesia and taken the recovery room with anticipated admission to the surgical floor.
[2023-08-19 15:23] LABS: Bedside Glucose 114 mg/dL (74-106)
[2023-08-19] MEDS: oxyCODONE 5 MG Tablet 10 MG PO (20:30)
[2023-08-19] MEDS: Acetaminophen 500 MG Tablet 1000 MG PO (20:31)
[2023-08-19] MEDS: Gabapentin 600 MG Tablet PO (22:25)
[2023-08-19] MEDS: Atorvastatin Calcium 80 MG Tablet PO (22:25)
[2023-08-19] MEDS: Carvedilol 12.5 MG Tablet PO (22:26)
[2023-08-19] MEDS: Insulin Lispro 100 UNIT/ML INSULN.PEN SC (22:47)
[2023-08-19] MEDS: HYDROmorphone 0.5 MG/0.5 ML SYRINGE IV (22:48)
[2023-08-19] MEDS: traZODone 50 MG Tablet PO (22:53)
[2023-08-19 23:01] LABS: Bedside Glucose 327 mg/dL (74-106)
[2023-08-20] VITALS (7 sets, daily range): BP systolic 108–121; BP diastolic 51–65; PULSE 58–72; RESP 16–20; TEMP 36.3–36.8; O2SAT 92–96
[2023-08-20] MEDS: 0.45% Normal Saline 1,000 ML 100 ML IV (02:36)
[2023-08-20] MEDS: oxyCODONE 5 MG Tablet 10 MG PO ×3 (02:43→16:29)
--- NOTE | 2023-08-20 05:53 | CPS ---
Pt wears home bipap here at night.
[2023-08-20 06:11] LABS: Absolute Neutrophil Count 11.2 X10^3/uL (2.0-7.7); Basophil# 0.03 X10^3/uL; Basophil% 0.2 % (0-1); Hemoglobin 13.8 g/dL (13.0-16.5); Lymphocyte % 10.3 % (19-41); Mean Corp Hgb Conc 32.1 g/dL (32-36); Mean Corpuscular Hgb 27.9 pg (27.0-32.0); Mean Corpuscular Volume 86.9 fL (80-94); Mean Platelet Vol. 10.3 fl (6.2-12.0); Monocyte# 1.02 X10^3/uL; Monocyte% 7.5 % (0-10); NRBC Flagged by Analyzer 0 % (0-5); Neutrophil # 11.15 X10^3/uL (2.7-7.7); Neutrophil % 81.6 % (47-70); Platelet Count 170 K/mm3 (150-450); RBC Distribution Width CV 15.4 % (11.6-14.6); RBC Distribution Width SD 49.2 fl (35.1-43.9); Red Blood Count 4.95 M/mm3 (4.6-6.2); White Blood Count 13.7 K/mm3 (4.4-11.0)
[2023-08-20] MEDS: Gabapentin 600 MG Tablet PO ×3 (06:34→21:44)
[2023-08-20] MEDS: Acetaminophen 500 MG Tablet 1000 MG PO ×3 (06:34→21:46)
[2023-08-20 06:37] LABS: Anion Gap 4 (5-15); BUN 29 mg/dL (7-18); BUN/Creat Ratio 14.7 RATIO (10-20); Chloride 108 mmol/L (98-107); Creatinine, Serum 1.97 mg/dL (0.70-1.30); EST Glomerular Filtration Rate 36 mL/min (>60); Est Glom Filt Rate - Afr Amer 44 mL/min (>60); Estimated Creatinine Clearance 45.81 ml/min; Glucose 251 mg/dL (74-106); Potassium 4.6 mmol/L (3.5-5.1); Sodium Level 138 mmol/L (136-145)
[2023-08-20] MEDS: Insulin Lispro 100 UNIT/ML INSULN.PEN SC ×3 (06:42→16:29)
[2023-08-20] MEDS: glipiZIDE 10 MG Tablet PO (08:18)
[2023-08-20] MEDS: Glucerna Shake 120 ML LIQUID PO (08:18)
[2023-08-20] MEDS: Aspirin 81 MG TAB.CHEW PO (08:18)
[2023-08-20] MEDS: Carvedilol 12.5 MG Tablet PO ×2 (08:18→16:28)
--- NOTE | 2023-08-20 08:23 | NURSING ---
pt refused incentive spirometer. states will not wear oxygen either (spo2 borderline 89-92%) refused blood sugar checks. states wear freestyle edel and monitors his own blood sugar levels- pt with notebook bedside he states he writes them on.
[2023-08-20] MEDS: Enoxaparin 40 MG/0.4 ML Syringe SC (10:22)
--- NOTE | 2023-08-20 11:11 | CASEMGMT ---
LU QUINTANILLA Assessment Face to Face with patient for initial transition planning/care coordination assessment. LU QUINTANILLA introduced self and role at [facility], pt voices understanding. Pt is A&Ox4 and is resting comfortably in bed and is calm. Pt daughter on speaker phone during assessment. Care providers, pharmacy, and demographics verified. Admitting dx: Knee Amputation LACE Strata: 2 PCP: Marlene Specialists: [facility]. Paris Carvajal (Pulmonary) [facility]acy: [facility] Insurance: [facility] A/B, [place] Prescription Benefit: Yes LNOK: Shyann Salgado (EVA) Living Arrangements: Pt lives alone in a 2 story home with a BM with HR throughout with 2 steps to enter with HR. Pt states that he does not go up or downstairs and that he has a FFSU. ADLs/IADLs: States normally ind Transportation: Self, Daughter DME: Walk in shower with seat and GB. CBGM with enough supplies to check BS. BiPAP at night with no additional oxygen. Cane. Crutches. Walker. W/C. Pt uses a knee scooter currently. Pulse Ox. Hearing Aides. HHC/SNF: History at the [facility]. History with [facility]. Pt?s goal: Rehabilitation Plan: Pt and pt daughter state that Dr. Baptiste is recommending additional rehab x 4-6 weeks and the pt states that he is agreeable with this plan. Pt denies wanting to see a list of in-network options and denies wanting to stay at [facility] and states that he wishes to go to [facility]. KARLI Cruz and to follow. Maryanne Edmonds RN, CM
--- NOTE | 2023-08-20 14:13 | PN.SURG_ITS ---
Subjective Subjective Patient is seen resting in bed this morning. He reports expected pain in the amputation stump, no focal areas just diffuse in the general area of the incision. He was initiated on gabapentin overnight secondary to phantom pain, he does not report specific phantom pains this morning. He does complain of back discomfort due to having to remain in bed. He is eager to be able to more around a bit more. He has refused a diabetic diet so on regular diet. He has had lower O2 saturations but refused O2 supplementation, he denies feeling SOB. He has no other complaints this morning. He does still indicate a desire to go to rehab at discharge. Objective Data Objective Data Vital Signs: Vital Signs Temp Pulse Resp BP Pulse Ox O2 Del Method O2 Flow Rate 98.2 F 60 18 116/51 L 92 Room Air 2 08/20/23 13:48 08/20/23 13:48 08/20/23 13:48 08/20/23 13:48 08/20/23 13:48 08/20/23 13:55 08/19/23 16:30 Oxygen Flow Rate (L/min) 2 Oxygen Delivery Method Room Air Weight: 224 lb 15.99 oz Body Mass Index (BMI) 28.1 Intake & Output: Intake and Output for Last 24 Hours 08/18/23 08/19/23 08/20/23 23:59 23:59 23:59 Intake Total 2139.5 / 2439.5 2650.5 / 2650.5 Output Total 1300 / 1300 Balance 2139.5 / 1839.5 1350.5 / 1350.5 Lab / Micro Data 08/20/23 06:01 08/20/23 06:01 Labs: Laboratory Results - last 24 hr 08/19/23 15:04: POC Glucose 114 H 08/19/23 22:31: POC Glucose 327 H 08/20/23 06:01: WBC 13.7 H, RBC 4.95, Hgb 13.8, Hct 43.0, MCV 86.9, MCH 27.9, MCHC 32.1, RDW Std Deviation 49.2 H, RDW Coeff of Darrell 15.4 H, Plt Count 170, MPV 10.3, Immature Gran % (Auto) 0.400, Neut % (Auto) 81.6 H, Lymph % (Auto) 10.3 L, [place] % (Auto) 7.5, Eos % (Auto) 0.0, Baso % (Auto) 0.2, Absolute Neuts (auto) 11.2 H, Absolute Lymphs (auto) 1.40, Nucleated RBC % 0, Sodium 138, Potassium 4.6, Chloride 108 H, Carbon Dioxide 26.0, Anion Gap 4 L, BUN 29 H, Creatinine 1.97 H, Estim Creat Clear Calc 45.81, Est GFR (MDRD) Af Amer 44 L, Est GFR (MDRD) Non-Af 36 L, BUN/Creatinine Ratio 14.7, Glucose 251 H, Calcium 8.0 L Physical Exam Const alert, oriented x3 and no apparent distress General Appearance: Negative for in distress HEENT normocephalic, head/scalp atraumatic, hearing grossly normal bilaterally, external ears normal and external nose normal Eyes EOMs intact bilaterally General Eye: normal appearance of both eyes Neck General: normal visual inspection and trachea midline Resp normal respiratory effort, normal air movement, no retractions and no use of accessory muscles Effort and Inspection: able to speak in complete sentences; Negative for labored, stridor or audible wheezes Cardio regular rate and regular rhythm Extremity Extremity Narrative: L BKA with postoperative dressings in place, C/D/I. No bleed through. Neuro oriented x3, CN's II-XII intact bilaterally, moves all extremities and no focal motor deficits Psych mental status grossly normal Appearance: grossly normal Attitude: calm and engaged Activity / Motor Behavior: appropriate eye contact Speech: normal speech Mood & Affect: euthymic mood Assessment & Plan Assessment/Plan (1) Amputation of left lower extremity below knee: PLAN: Dressings will stay in place today, I will remove tomorrow morning. Assistant Hall Director will be in tomorrow to place the rigid protective device with extension, order for this is in his chart. Will continue with current pain management regimen. Can increase gabapentin as needed for phantom pains. He will work with PT/OT today. Case management will meet with him and will help to coordinate rehab at discharge.
--- NOTE | 2023-08-20 14:29 | CASEMGMT ---
Social Work SW met with pt and pt called dgt Marivel on speaker phone. Pt confirms plan to go to SNF at time of discharge as pt will need short term rehab prior to returning home alone. Pt states that he has been to [facility] in the past and has friends there and this is facility of choice. Pt's dgt is in agreement. Referral sent to [facility]. SW will await determination of acceptance. Plan: [facility], pending acceptance. TRINA Boone
[2023-08-20] MEDS: Atorvastatin Calcium 80 MG Tablet PO (21:44)
--- NOTE | 2023-08-20 21:47 | NURSING ---
refused to have blood sugar checked. blood sugar is 144 via pt's own freestyle.
[2023-08-20] MEDS: 0.9% Saline Lock 10 ML Syringe IV (21:49)
[2023-08-20] MEDS: traZODone 50 MG Tablet PO (21:52)
[2023-08-21 06:16] VITALS: BP 124/65; PULSE 65; RESP 18; TEMP 36.7; O2SAT 91
[2023-08-21] MEDS: Gabapentin 600 MG Tablet PO ×3 (06:18→22:20)
[2023-08-21] MEDS: Acetaminophen 500 MG Tablet 1000 MG PO ×3 (06:18→22:20)
--- NOTE | 2023-08-21 06:20 | NURSING ---
blood sugar is 142 via pt's freestyle
[2023-08-21 07:21] VITALS: O2SAT 93
[2023-08-21 08:15] VITALS: BP 118/62; PULSE 66; RESP 16; TEMP 36.6; O2SAT 94
[2023-08-21] MEDS: oxyCODONE 5 MG Tablet 10 MG PO ×2 (08:20→14:51)
--- NOTE | 2023-08-21 08:56 | CASEMGMT ---
Social Work [facility] has accepted pt and he can admit on Monday 08/21. SW updated pt and called pt dgt Marivel and notified. Both parties understanding and agreeable. Plan: [facility], bed available on Friday TRINA Boone
[2023-08-21] MEDS: 0.9% Saline Lock 10 ML Syringe IV ×4 (09:39→17:01)
[2023-08-21] MEDS: HYDROmorphone 0.5 MG/0.5 ML SYRINGE IV ×2 (09:39→13:14)
[2023-08-21] MEDS: Ascorbic Acid 500 MG Tablet 1000 MG PO (09:40)
[2023-08-21] MEDS: Aspirin 81 MG TAB.CHEW PO (09:40)
[2023-08-21] MEDS: Docusate Sodium 100 MG Capsule PO ×2 (09:40→22:20)
[2023-08-21] MEDS: Carvedilol 12.5 MG Tablet PO ×2 (09:40→16:21)
[2023-08-21] MEDS: glipiZIDE 10 MG Tablet PO (09:41)
[2023-08-21] MEDS: Enoxaparin 40 MG/0.4 ML Syringe SC (09:41)
[2023-08-21] MEDS: Zinc Sulfate 50 mg zinc (220 mg) ORAL capsule PO (09:42)
[2023-08-21] MEDS: Magnesium Chloride 64 MG Delay Rel.Tablet 128 MG PO (09:42)
--- NOTE | 2023-08-21 11:38 | NURSING ---
Pt refused fingerstick for ACHS. Insisted on using CGM edel device. Per CGM BS is 185 at 1135AM.
[2023-08-21] MEDS: Insulin Lispro 100 UNIT/ML INSULN.PEN SC (13:13)
[2023-08-21] MEDS: Mag Hydrox/Al Hydrox/Simeth 30 ML UDC PO (14:53)
[2023-08-21 15:18] VITALS: BP 122/78; PULSE 64; RESP 12; TEMP 36.6; O2SAT 96
[2023-08-21] MEDS: HYDROmorphone 1 MG/ML Syringe IV (16:15)
--- NOTE | 2023-08-21 16:18 | NURSING ---
Patient bs per CGM was 86, no insulin administered. Patient refused fingerstick glucose
--- NOTE | 2023-08-21 16:30 | PCM.DC.SUM ---
Providers Date of Admission: 08/19/23 Primary Care Physician: Dr. Emmett Rosario MD Reason For Visit: Amputation Below/Above Knee Diagnosis Discharge Diagnosis (1) Amputation of left lower extremity below knee: Status: Acute Code(s): S88.112A - Complete traumatic amputation at level between knee and ankle, left lower leg, initial encounter Plan: Dressings will stay in place today, I will remove tomorrow morning. Inspector Penetrant will be in tomorrow to place the rigid protective device with extension, order for this is in his chart. Will continue with current pain management regimen. Can increase gabapentin as needed for phantom pains. He will work with PT/OT today. Case management will meet with him and will help to coordinate rehab at discharge. Medications at Discharge Home Medications ascorbic acid (vitamin C) 1,000 mg tablet 1,000 mg PO DAILY vitamin 07/11/20 aspirin 81 mg chewable tablet 81 mg PO DAILY@0800 heart health 07/11/20 atorvastatin 80 mg tablet 80 mg PO QHS cholesterol 07/11/20 carvedilol 12.5 mg tablet 12.5 mg PO BID blood pressure 08/17/20 zinc sulfate 50 mg zinc (220 mg) capsule 50 mg PO DAILY supplement 06/29/21 losartan 50 mg tablet 50 tab PO QHS BP 11/05/21 amlodipine 10 mg tablet 10 mg PO QHS BP 11/23/21 glipizide 10 mg tablet 10 mg PO QHS DIABETES 05/09/22 insulin glargine-yfgn 100 unit/mL (3 mL) subcutaneous pen 20 unit subcut QHS DIABETES 05/09/22 sildenafil 100 mg tablet 100 mg PO DAILY PRN sexual activity #30 tabs 08/02/22 magnesium 250 mg tablet 250 mg PO DAILY SUPPLEMENT 11/22/22 oxycodone-acetaminophen 10 mg-325 mg tablet 1 tab PO PRN PRN pain 11/22/22 trazodone 50 mg tablet 50 mg PO QHS PRN insomnia #90 tabs 07/23/23 semaglutide 0.25 mg or 0.5 mg (2 mg/3 mL) subcutaneous pen injector (Ozempic) 0.25 mg subcut FR DIABETES 07/24/23 insulin lispro .ROUTE DIABETES 08/19/23 acetaminophen 500 mg tablet 1,000 mg (2 x 500 mg) PO Q8 #0 tabs 08/21/23 docusate sodium 100 mg capsule 100 mg PO BID PRN PRN Constipation #0 caps 08/21/23 gabapentin 600 mg tablet 600 mg PO TIDCM NERVE PAIN 30 days #90 tabs 08/21/23 oxycodone 5 mg tablet 15 mg (3 x 5 mg) PO Q6H PRN PRN Pain Score 4-10 5 days #20 tabs 08/21/23 rivaroxaban 10 mg tablet (Xarelto) 10 mg PO DAILY #30 tabs 08/21/23 Hospital Course Operations - (L BKA) Summary of Care Provided Hospital Course: Mr. Salgado is a 67 y/o male who underwent planned L BKA on 08/19/23 secondary to chronic left heel wound which was refractory to local care and multiple prior surgical interventions. The procedure was without complication and he tolerated it well. He was routinely admitted to the medical surgical unit postoperatively. He has remained hemodynamically stable. The first night after surgery he did experience some phantom pain so gabapentin was initiated and did help. He has had expected surgical site pain, did increase to oxycodone 15mg for better pain control given he is chronically on 10mg so likely has some tolerance. The surgical site dressings were removed today on POD#2 without issue. Sutures were intact, skin edges viable, mild amount of oozing. Will plan to continue with dry dressings changed daily or more often as needed to keep the area clean and dry. Randy applied his stump protector today on POD#2. This should remain in place at all times except for hygeine, dressing changes, and therapy as needed. He has been tolerating a normal diet and voiding without difficulty. He has been accepted to [facility] for rehab. He is medically stable for discharge today and will be discharging to [facility] tomorrow morning when a bed is available. He will return to the office as an outpatient in 3 weeks for suture removal or sooner as needed. Physical Exam Const alert, oriented x3 and no apparent distress General Appearance: Negative for in distress HEENT normocephalic, head/scalp atraumatic, hearing grossly normal bilaterally, external ears normal and external nose normal Eyes EOMs intact bilaterally General Eye: normal appearance of both eyes Neck General: normal visual inspection and trachea midline Resp normal respiratory effort, normal air movement, no retractions and no use of accessory muscles Effort and Inspection: able to speak in complete sentences; Negative for labored, stridor or audible wheezes Cardio regular rate and regular rhythm Extremity Extremity Narrative: L BKA incision site with sutures intact, no dehiscence, skin edges viable. There is mild oozing noted. No significant ecchymosis, no focal swelling. The stump is soft to palpation throughout, not excessively tender. Neuro oriented x3, CN's II-XII intact bilaterally, moves all extremities and no focal motor deficits Psych mental status grossly normal Appearance: grossly normal Attitude: calm and engaged Activity / Motor Behavior: appropriate eye contact Speech: normal speech Mood & Affect: euthymic mood Weight / BMI Weight Weight: 224 lb 15.99 oz Body Mass Index (BMI) 28.1 ABG / Lab / Microbiology Data 08/20/23 06:01 08/20/23 06:01 D/C Instructions Discharge Diet: No restrictions May shower in (days): 1 Call your doctor if your incision/area has: Sudden Increased Bleeding and Increased Pain/ Swelling Call your doctor if you observe: Fever of 101 or Higher, Coldness, Increased Pain and Uncontrolled pain Change Dressing in: 1 day Pending Tests Upon Discharge: For the amputation site, continue to apply dry gauze dressings. Change dressing daily or more often as needed to keep clean and dry. Continue with dressings as long as mild bleeding/oozing continues, once this stops okay to discontinue dressings. He has a rigid protective device (stump protector) and compressive sleeve in place. This should remain in place but can be removed as needed for dressing changes, hygiene, and therapy. He has been prescribed oxycodone 15mg to be taken by mouth every 6 hours as needed for pain. He has also been prescribed gabapentin 600mg to be taken by mouth TID for phantom pain. He may take tylenol and/or ibuprofen as allowed in addition to this. He has also been prescribed Xarelto 10mg daily for DVT prophylaxis. He will return to the office as scheduled on 09/09/23 to start suture removal process, sooner as needed. Meaningful Use Info Meaningful Use Diagnoses (Choose all that apply): None applicable Discharge Plan Admission Admit Date/Time: 08/19/23 09:36 Attending Provider: Toney Baptiste Primary Care Provider: Emmett Rosario Discharge Orders/Prescriptions Prescriptions: New acetaminophen 500 mg Tablet 1,000 mg PO Q8 Qty: 0 0RF docusate sodium 100 mg Capsule 100 mg PO BID PRN PRN (Reason: Constipation) Qty: 0 0RF oxycodone 5 mg Tablet 15 mg PO Q6H PRN PRN (Reason: Pain Score 4-10) 5 Days Qty: 20 0RF Xarelto 10 mg tablet 10 mg PO DAILY Qty: 30 1RF Continued amlodipine 10 mg tablet 10 mg PO QHS glipizide 10 mg tablet 10 mg PO QHS Patient Comments: WRITTEN FOR 2 10 MG TABS ONCE DAILY insulin glargine-yfgn 100 unit/mL (3 mL) insulin pen 20 unit subcut QHS Patient Comments: PATIENT ONLY TAKES 20 UNITS IF SUGAR OVER 150 sildenafil 100 mg tablet 100 mg PO DAILY PRN (Reason: sexual activity) Qty: 30 3RF Rx Instructions: administer 30 minutes to 4 hours before activity Ozempic 0.25 mg or 0.5 mg (2 mg/3 mL) pen injector 0.25 mg subcut FR trazodone 50 mg tablet 50 mg PO QHS PRN (Reason: insomnia) Qty: 90 1RF atorvastatin 80 MG tablet 80 mg PO QHS ascorbic acid (vitamin C) 1,000 MG tablet 1,000 mg PO DAILY aspirin 81 MG tablet,chewable 81 mg PO DAILY@0800 carvedilol 12.5 MG tablet 12.5 mg PO BID Patient Comments: TAKES AT 1300 AND QHS zinc sulfate 50 mg zinc (220 mg) capsule 50 mg PO DAILY losartan 50 mg tablet 50 tab PO QHS Patient Comments: Take 1 tablet by mouth once daily. magnesium 250 mg tablet 250 mg PO DAILY insulin lispro [Humalog Ori KwikPen U-100] .ROUTE Patient Comments: IF BLOOD SUGAR >150 gabapentin 600 mg tablet 600 mg PO TIDCM 30 Days Qty: 90 0RF Held oxycodone-acetaminophen 10-325 mg tablet 1 tab PO PRN PRN (Reason: pain) Hold Instructions: Resume on 08/27/23. Resume as needed once acute pain medication is discontinued Patient Comments: TAKE 1 TABLET EVERY 6 HOURS NEEDED. Referrals / Follow Up: Emmett Rosario MD [Primary Care Provider] - Disposition Disposition (needs filled in before D/C Order can be placed): Shelter Facility
--- NOTE | 2023-08-21 16:44 | PN.SURG_ITS ---
Subjective Subjective Patient is seen resting in bed this morning. He did great with PT yesterday. His pain has not been as well controlled with the oxycodone 10mg. He is on 10mg for his chronic pain so likely does have some tolerance. He has no other complaints today. He was accepted to [facility]. They will not have a bed available until tomorrow morning. Objective Data Objective Data Vital Signs: Vital Signs Temp Pulse Resp BP Pulse Ox O2 Del Method O2 Flow Rate 98 F 64 12 122/78 H 96 Room Air 2 08/21/23 15:18 08/21/23 15:18 08/21/23 15:18 08/21/23 15:18 08/21/23 15:18 08/21/23 15:18 08/19/23 16:30 Oxygen Flow Rate (L/min) 2 Oxygen Delivery Method Room Air Weight: 224 lb 15.99 oz Body Mass Index (BMI) 28.1 Intake & Output: Intake and Output for Last 24 Hours 08/19/23 08/20/23 08/21/23 23:59 23:59 23:59 Intake Total 2139.5 / 2439.5 3250.5 / 3250.5 1900 / 1900 Output Total 2100 / 2100 300 / 300 Balance 2139.5 / 1839.5 1150.5 / 1150.5 1600 / 1600 Lab / Micro Data 08/20/23 06:01 08/20/23 06:01 Physical Exam Const alert, oriented x3 and no apparent distress General Appearance: Negative for in distress HEENT normocephalic, head/scalp atraumatic, hearing grossly normal bilaterally, external ears normal and external nose normal Eyes EOMs intact bilaterally General Eye: normal appearance of both eyes Neck General: normal visual inspection and trachea midline Resp normal respiratory effort, normal air movement, no retractions and no use of accessory muscles Effort and Inspection: able to speak in complete sentences; Negative for la bored, stridor or audible wheezes Cardio regular rate and regular rhythm Extremity Extremity Narrative: L BKA incision site with sutures intact, no dehiscence, skin edges viable. There is mild oozing noted. No significant ecchymosis, no focal swelling. The stump is soft to palpation throughout, not excessively tender. Neuro oriented x3, CN's II-XII intact bilaterally, moves all extremities and no focal motor deficits Psych mental status grossly normal Appearance: grossly normal Attitude: calm and engaged Activity / Motor Behavior: appropriate eye contact Speech: normal speech Mood & Affect: euthymic mood Assessment & Plan Assessment/Plan (1) Amputation of left lower extremity below knee: PLAN: Postop dressings were removed today. The amputation site is satisfactory in appearance. Dressed with adaptic to the suture line and the Kerlix wrap. For ongoing wound care, continue to apply dry dressing and change once daily or more often as needed to keep clean and dry. Randy did come by today and fit him with the rigid protective device with extension. This should remain in place. It can be removed as needed for dressing changes and therapy. Will increase to oxycodone 15mg to better control his pain. Will continue with current gabapentin dose. Plan is for d/c to [facility] tomorrow morning as soon as the bed is available.
[2023-08-21] MEDS: Magnesium Citrate 300 ML 150 ML PO (17:01)
[2023-08-21] MEDS: Ketorolac 30 MG/ML Syringe IV (17:01)
--- NOTE | 2023-08-21 17:20 | PCM.TXEXTCAR ---
Diet Diet Order/Speech Therapy: 08/19/23 23:18 Carb [Diet: Carbohydrate Controlled] Type of Dietary Supplement:: Corwin Is pt able to select menu?: Yes Diet Comments: Corwin daily w/ breakfast and dinner Routine Orders/Code Status Routine Lab Work: CBC and BMP Code Status: Full Code Wound(s) LEFT STUMP: Wound Type: Surgical Incision (L BKA incision site) Dressing Change: Dry Sterile Dressing (Change daily or more often as needed to keep clean and dry) Therapies Extremity Affected:: Left Lower Physical Therapy: Eval and Treat Occupational Therapy: Eval and Treat Problem/Diagnosis (1) Amputation of left lower extremity below knee: Status: Acute Code(s): S88.112A - Complete traumatic amputation at level between knee and ankle, left lower leg, initial encounter Plan: Postop dressings were removed today. The amputation site is satisfactory in appearance. Dressed with adaptic to the suture line and the Kerlix wrap. For ongoing wound care, continue to apply dry dressing and change once daily or more often as needed to keep clean and dry. Judicial Administrative Assistant did come by today and fit him with the rigid protective device with extension. This should remain in place. It can be removed as needed for dressing changes and therapy. Will increase to oxycodone 15mg to better control his pain. Will continue with current gabapentin dose. Plan is for d/c to [facility] tomorrow morning as soon as the bed is available. Allergies/Procedures Done in Hospital Allergies No Known Allergies Allergy (Verified 08/19/23 10:05) Type of Care/Length of Stay Estimated LOS: More Than 30 Days Type of Care Needed: Acute Rehab Rehab Potential: Good Prognosis: Good Additional Orders/Day of Discharge Day of Discharge: 08/22/23 Dietary and Speech Recommendations Dietitian Recommendations/Changes: continue CHO controlled diet as ordered; will adjust ONS to Corwin BID for wound healing Follow Up Care Please follow up with your Primary Care Physician in: 1-2 weeks Please Follow Up With: Nia Bourgeois PA When: 3 weeks Discharge Plan Admission Admit Date/Time: 08/19/23 09:36 Attending Provider: Toney Baptiste Primary Care Provider: Emmett Rosario Instructions Additional Instructions / Restrictions: Discharge Diet: No restrictions May shower in (days): 1 Call your doctor if your incision/area has: Sudden Increased Bleeding and Increased Pain/ Swelling Call your doctor if you observe: Fever of 101 or Higher, Coldness, Increased Pain and Uncontrolled pain Change Dressing in: 1 day Pending Tests Upon Discharge: For the amputation site, continue to apply dry gauze dressings. Change dressing daily or more often as needed to keep clean and dry. Continue with dressings as long as mild bleeding/oozing continues, once this stops okay to discontinue dressings. He has a rigid protective device (stump protector) and compressive sleeve in place. This should remain in place but can be removed as needed for dressing changes, hygiene, and therapy. He has been prescribed oxycodone 15mg to be taken by mouth every 6 hours as needed for pain. He has also been prescribed gabapentin 600mg to be taken by mouth TID for phantom pain. He may take tylenol and/or ibuprofen as allowed in addition to this. He has also been prescribed Xarelto 10mg daily for DVT prophylaxis. He will return to the office as scheduled on 09/09/23 to start suture removal process, sooner as needed. Discharge Orders/Prescriptions Prescriptions: New acetaminophen 500 mg Tablet 1,000 mg PO Q8 Qty: 0 0RF docusate sodium 100 mg Capsule 100 mg PO BID PRN PRN (Reason: Constipation) Qty: 0 0RF oxycodone 5 mg Tablet 15 mg PO Q6H PRN PRN (Reason: Pain Score 4-10) 5 Days Qty: 20 0RF Xarelto 10 mg tablet 10 mg PO DAILY Qty: 30 1RF Continued amlodipine 10 mg tablet 10 mg PO QHS glipizide 10 mg tablet 10 mg PO QHS Patient Comments: WRITTEN FOR 2 10 MG TABS ONCE DAILY insulin glargine-yfgn 100 unit/mL (3 mL) insulin pen 20 unit subcut QHS Patient Comments: PATIENT ONLY TAKES 20 UNITS IF SUGAR OVER 150 sildenafil 100 mg tablet 100 mg PO DAILY PRN (Reason: sexual activity) Qty: 30 3RF Rx Instructions: administer 30 minutes to 4 hours before activity Ozempic 0.25 mg or 0.5 mg (2 mg/3 mL) pen injector 0.25 mg subcut FR trazodone 50 mg tablet 50 mg PO QHS PRN (Reason: insomnia) Qty: 90 1RF atorvastatin 80 MG tablet 80 mg PO QHS ascorbic acid (vitamin C) 1,000 MG tablet 1,000 mg PO DAILY aspirin 81 MG tablet,chewable 81 mg PO DAILY@0800 carvedilol 12.5 MG tablet 12.5 mg PO BID Patient Comments: TAKES AT 1300 AND QHS zinc sulfate 50 mg zinc (220 mg) capsule 50 mg PO DAILY losartan 50 mg tablet 50 tab PO QHS Patient Comments: Take 1 tablet by mouth once daily. magnesium 250 mg tablet 250 mg PO DAILY insulin lispro [Humalog Ori KwikPen U-100] .ROUTE Patient Comments: IF BLOOD SUGAR >150 gabapentin 600 mg tablet 600 mg PO TIDCM 30 Days Qty: 90 0RF Held oxycodone-acetaminophen 10-325 mg tablet 1 tab PO PRN PRN (Reason: pain) Hold Instructions: Resume on 08/27/23. Resume as needed once acute pain medication is discontinued Patient Comments: TAKE 1 TABLET EVERY 6 HOURS NEEDED. Referrals / Follow Up: Emmett Rosario MD [Primary Care Provider] - Disposition Disposition (needs filled in before D/C Order can be placed): [facility]
[2023-08-21] MEDS: oxyCODONE 5 MG Tablet 15 MG PO (20:48)
[2023-08-21 20:50] VITALS: BP 121/62; PULSE 61; RESP 16; TEMP 36.7; O2SAT 92
[2023-08-21] MEDS: traZODone 50 MG Tablet PO (22:20)
--- NOTE | 2023-08-21 22:20 | NURSING ---
Pt refusing accucheck with hospital glucometer despite education on accuracy of [facility] glucometer and hospital protocol. Per pt's Diana, FSBS 127. No sliding scale insulin coverage given at this time.
[2023-08-21] MEDS: Atorvastatin Calcium 80 MG Tablet PO (22:21)
[2023-08-22 02:50] VITALS: BP 119/66; PULSE 57; RESP 16; TEMP 36.3; O2SAT 94
[2023-08-22] MEDS: oxyCODONE 5 MG Tablet 15 MG PO ×2 (02:53→13:38)
[2023-08-22] MEDS: Acetaminophen 500 MG Tablet 1000 MG PO ×2 (05:06→13:36)
[2023-08-22] MEDS: Gabapentin 600 MG Tablet PO ×2 (05:06→13:36)
[2023-08-22] MEDS: cycloBENZAPRine HCl 5 MG TABLET PO (06:25)
--- NOTE | 2023-08-22 06:28 | NURSING ---
Pt took blood sugar reading from Diana device, 114. No insulin coverage given at this time.
[2023-08-22 06:57] VITALS: O2SAT 93
[2023-08-22 09:00] VITALS: BP 109/61; PULSE 52; RESP 16; TEMP 36.4; O2SAT 93
[2023-08-22] MEDS: Carvedilol 12.5 MG Tablet PO (09:08)
[2023-08-22] MEDS: Aspirin 81 MG TAB.CHEW PO (09:09)
[2023-08-22] MEDS: glipiZIDE 10 MG Tablet PO (09:09)
[2023-08-22] MEDS: Ascorbic Acid 500 MG Tablet 1000 MG PO (09:09)
[2023-08-22] MEDS: Enoxaparin 40 MG/0.4 ML Syringe SC (10:10)
[2023-08-22] MEDS: Insulin Lispro 100 UNIT/ML INSULN.PEN SC (11:57)
--- NOTE | 2023-08-22 12:10 | PHA.DC.MR.R ---
Pharmacy MD Med Reconciliation Pharmacy Service has performed discharge medication reconciliation for this patient. The patient's discharge medication list was reviewed for discrepancies and discrepancies were resolved. Medications at Discharge Home Medications ascorbic acid (vitamin C) 1,000 mg tablet 1,000 mg PO DAILY vitamin 07/11/20 aspirin 81 mg chewable tablet 81 mg PO DAILY@0800 heart health 07/11/20 atorvastatin 80 mg tablet 80 mg PO QHS cholesterol 07/11/20 carvedilol 12.5 mg tablet 12.5 mg PO BID blood pressure 08/17/20 zinc sulfate 50 mg zinc (220 mg) capsule 50 mg PO DAILY supplement 06/29/21 losartan 50 mg tablet 50 tab PO QHS BP 11/05/21 amlodipine 10 mg tablet 10 mg PO QHS BP 11/23/21 glipizide 10 mg tablet 10 mg PO QHS DIABETES 05/09/22 insulin glargine-yfgn 100 unit/mL (3 mL) subcutaneous pen 20 unit subcut QHS DIABETES 05/09/22 sildenafil 100 mg tablet 100 mg PO DAILY PRN sexual activity #30 tabs 08/02/22 magnesium 250 mg tablet 250 mg PO DAILY SUPPLEMENT 11/22/22 oxycodone-acetaminophen 10 mg-325 mg tablet 1 tab PO PRN PRN pain 11/22/22 trazodone 50 mg tablet 50 mg PO QHS PRN insomnia #90 tabs 07/23/23 semaglutide 0.25 mg or 0.5 mg (2 mg/3 mL) subcutaneous pen injector (Ozempic) 0.25 mg subcut FR DIABETES 07/24/23 insulin lispro .ROUTE DIABETES 08/19/23 acetaminophen 500 mg tablet 1,000 mg (2 x 500 mg) PO Q8 #0 tabs 08/21/23 cyclobenzaprine 5 mg tablet 5 mg PO TID PRN muscle spasm 5 days #15 tabs 08/21/23 docusate sodium 100 mg capsule 100 mg PO BID PRN PRN Constipation #0 caps 08/21/23 gabapentin 600 mg tablet 600 mg PO TIDCM NERVE PAIN 30 days #90 tabs 08/21/23 oxycodone 5 mg tablet 15 mg (3 x 5 mg) PO Q6H PRN PRN Pain Score 4-10 5 days #20 tabs 08/21/23 rivaroxaban 10 mg tablet (Xarelto) 10 mg PO DAILY #30 tabs 08/21/23
[2023-08-22 13:45] VITALS: BP 108/58; PULSE 60; RESP 16; TEMP 36.9; O2SAT 98
--- NOTE | 2023-08-22 13:52 | CASEMGMT ---
Addendum entered by Nancy Green 08/22/23 17:17: 7000 convalescent form completed in [facility] for admission to [facility]. [facility] Original Note: Social Work Per physician, pt is ready for discharge today. Discharge orders sent to [facility] via [facility]. Pt's dgt Marivel called and she will provide transportation for pt at 5pm. [facility], bedside nurse and pt notified of dc time. Disposition: [facility], skilled level of care under convalescent stay [facility]
--- NOTE | 2023-08-22 15:56 | NURSING ---
REPORT CALLED TO [facility]
== END 2023-08-22 16:15 | disposition skilled nursing facility (03) | DRG 617 ==
LOC: ACINP 09:40 → MS3 18:29
PROVIDERS: Anesthesiology; Admitting Provider Surgery Trauma Surgery; PCP Internal Medicine; Referring Provider Surgery Trauma Surgery; Visit Provider Surgery Trauma Surgery
PROC: 0Y6J0Z1 Detachment at Left Lower Leg, High, Open Approach (ICD-10-PCS; principal; 2023-08-19 10:45)
DX: E11.621 Type 2 diabetes mellitus with foot ulcer (principal); M86.172 Other acute osteomyelitis, left ankle and foot; M86.672 Other chronic osteomyelitis, left ankle and foot; E11.22 Type 2 diabetes mellitus with diabetic chronic kidney disease; N18.30 Chronic kidney disease, stage 3 unspecified; L97.524 Non-pressure chronic ulcer of other part of left foot with necrosis of bone; E11.42 Type 2 diabetes mellitus with diabetic polyneuropathy; Z79.4 Long term (current) use of insulin; E11.69 Type 2 diabetes mellitus with other specified complication; I12.9 Hypertensive chronic kidney disease with stage 1 through stage 4 chronic kidney disease, or unspecified chronic kidney disease; I25.10 Atherosclerotic heart disease of native coronary artery without angina pectoris; I25.2 Old myocardial infarction; Z95.5 Presence of coronary angioplasty implant and graft; Z79.82 Long term (current) use of aspirin; Z79.84 Long term (current) use of oral hypoglycemic drugs; Z79.85 Long-term (current) use of injectable non-insulin antidiabetic drugs; Z79.899 Other long term (current) drug therapy; Z87.891 Personal history of nicotine dependence
CPT/HCPCS: 36415; 80048; 82962; 83036; 85025; 85027; 86850; 86900; 86901; 88307; 88311; 93005; 97110; 97116; 97161; 97166; 97530; 97535; 97542; 97802; 99252; A4648; J7120; A4216; G0463; J2405

== ENCOUNTER → 2023-10-02 | Outpatient (CLI) | payer MEDICARE, BC, SELFPAY ==
[2023-10-02 11:15] LABS: Creatinine, Serum 2.24 mg/dL (0.70-1.30); EST Glomerular Filtration Rate 31 mL/min (>60); Est Glom Filt Rate - Afr Amer 38 mL/min (>60)
== END | disposition home or self-care (01) ==
LOC: LAB 09:56
PROVIDERS: PCP Internal Medicine; Referring Provider Physician Assistant; Visit Provider Physician Assistant
DX: N18.30 Chronic kidney disease, stage 3 unspecified (principal)
CPT/HCPCS: 36415; 82565

== ENCOUNTER → 2023-10-23 | Outpatient (CLI) | payer MEDICARE, BC, SELFPAY ==
[2023-10-23 13:53] LABS: Anion Gap 7 (5-15); BUN 19 mg/dL (7-18); BUN/Creat Ratio 9.9 RATIO (10-20); Calcium,Total 9.1 mg/dL (8.5-10.1); Chloride 108 mmol/L (98-107); Creatinine, Serum 1.91 mg/dL (0.70-1.30); EST Glomerular Filtration Rate 37 mL/min (>60); Est Glom Filt Rate - Afr Amer 45 mL/min (>60); Glucose 186 mg/dL (74-106); Potassium 4.2 mmol/L (3.5-5.1); Sodium Level 138 mmol/L (136-145)
== END | disposition home or self-care (01) ==
LOC: LAB 12:08
PROVIDERS: PCP Internal Medicine; Referring Provider Physician Assistant; Visit Provider Physician Assistant
DX: N18.30 Chronic kidney disease, stage 3 unspecified (principal)
CPT/HCPCS: 36415; 80048

== ENCOUNTER 2023-11-27 10:10 | Emergency (ER) | payer MEDICARE, BC, SELFPAY ==
[2023-11-27 10:11] VITALS: BP 102/64; PULSE 63; RESP 15; TEMP 36.3; O2SAT 97; BMI 28.1
--- NOTE | 2023-11-27 10:41 | VDLE_ITS ---
Reason For Study: RLE Pain RIGHT GSV is normal. CFV is compressible, spontaneous, phasic, competent and demonstrates normal augmentation. FV is compressible, spontaneous, phasic, competent and demonstrates normal augmentation. POP V is compressible, spontaneous, phasic, competent and demonstrates normal augmentation. T/P Trunk is compressible. PTV is compressible. RT PerV is compressible. Procedure This is a venous duplex using B-mode, color flow and spectral Doppler. Exam performed portable in ED. The exam was diagnostic. A preliminary report was called and/or faxed to ED RN responsible for patient. VL/Venous Duplex US, Unilateral Interpretation Summary Deep veins of the right lower extremity are patent and compressible segmentally . There is no evidence of right lower extremity deep vein thrombosis. Valvular competence bonny ears intact within the proximal deep venous system on the right . The right great saphenous vein a ppears patent and compressible segmentally. Ordering Physician: Remigio Breaux Referring Physician: Emmett Rosario Performed By: Ignacio Grady RVT
--- NOTE | 2023-11-27 11:15 | EDS_ITS ---
HPI History of Present Illness Chief Complaint: Lower Extremity Injury Detail of Chief Complaint: Right lower extremity pain x 1 week Narrative Narrative: Patient is a 68-year-old male with a past medical history of hypertension, hypercholesterolemia, left below-knee amputation, CAD, hyponatremia, diabetes who presents to the emergency department with chief complaint of right lower extremity pain that has been there approximately a week he states. He states t hat his constant pain and feels that there is pulling. He states that ice appears to help this pain he states he attempts to elevate his leg. He states that he did have a blood clot in his left lower extremity several years ago and is not currently on any anticoagulation. Patient states he normally gets around with a wheelchair at home at baseline and denies any recent travel history. Patient denies any other injuries to his right lower extremity. [facility] Medical History Wears glasses MRSA infection Open wound Arthritis Prostate disease Injury of back Chronic cough Smoker Shortness of breath on exertion Neuropathy Elevated PSA BPH (benign prostatic hyperplasia) Left flank pain Insulin dependent diabetes mellitus Uses wheelchair Back pain Dietary restriction BiPAP (biphasic positive airway pressure) dependence History of edema History of echocardiogram History of stress test Cardiology follow-up encounter Insomnia Preoperative evaluation to rule out surgical contraindication Peripheral neuropathy Other acute osteomyelitis, left ankle and foot Osteomyelitis of foot, left, acute Atherosclerotic heart disease of [place] coronary artery without angina pectoris Essential hypertension Osteomyelitis Diabetes mellitus Status post debridement of ulcer of heel Sepsis Wears hearing aid in both ears Cancer Myocardial infarct Chest pain DVT (deep venous thrombosis) CKD (chronic kidney disease), stage III History of kidney cancer Obesity Former tobacco use CAMAHCO (obstructive sleep apnea) COPD (chronic obstructive pulmonary disease) 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 Home Medications ?Medication ?Instructions ?Recorded ?Last Taken ?Type ascorbic acid (vitamin C) 1,000 mg 1,000 mg PO DAILY vitamin 07/11/20 05/27/21 History tablet aspirin 81 mg chewable tablet 81 mg PO DAILY@0800 heart health 07/11/20 08/19/23 05:30 History atorvastatin 80 mg tablet 80 mg PO QHS cholesterol 07/11/20 05/27/21 History carvedilol 12.5 mg tablet 12.5 mg PO BID blood pressure 04/01/21 04/02/24 00:00 History zinc sulfate 50 mg zinc (220 mg) 50 mg PO DAILY supplement 06/29/21 Unknown History capsule losartan 50 mg tablet 50 tab PO QHS BP 11/05/21 Unknown History amlodipine 10 mg tablet 10 mg PO QHS BP 11/23/21 Unknown History insulin glargine-yfgn 100 unit/mL 20 unit subcut QHS DIABETES 05/09/22 Unknown History (3 mL) subcutaneous pen sildenafil 100 mg tablet 100 mg PO DAILY PRN sexual 08/02/22 Unknown Rx activity #30 tabs magnesium 250 mg tablet 250 mg PO DAILY SUPPLEMENT 11/22/22 Unknown History semaglutide 0.25 mg or 0.5 mg (2 0.25 mg subcut FR DIABETES 07/24/23 Unknown History mg/3 mL) subcutaneous pen injector (Ozempic) insulin lispro .Route DIABETES 08/19/23 Unknown History acetaminophen 500 mg tablet 1,000 mg (2 x 500 mg) PO Q8 #0 tabs 08/21/23 Unknown Rx docusate sodium 100 mg capsule 100 mg PO BID PRN PRN Constipation 08/21/23 Unknown Rx #0 caps gabapentin 600 mg tablet 600 mg PO TIDCM NERVE PAIN 30 days 08/21/23 Unknown Rx #90 tabs glipizide 5 mg tablet 5 mg PO DAILY 09/17/23 Unknown History rivaroxaban 10 mg tablet (Xarelto) 10 mg PO DAILY 09/17/23 Unknown History trazodone 100 mg tablet 100 mg PO QHS 09/17/23 Unknown History Allergy/AdvReac Type Severity Reaction Status Date / Time No Known Allergies Allergy Verified 11/27/23 10:13 Family History Father CVA (cerebral vascular accident) Myocardial infarction Mother Dementia Surgical History History of surgery on lower extremity Hx of foot surgery History of lumbar fusion History of fusion of cervical spine Hx of foot surgery History of appendectomy History of coronary artery stent placement (~08/13/07) History of surgery on arm Hx of partial nephrectomy Previous back surgery Social History household members: none Smoking Status: Light Smoker (<10/day) Tobacco: How many years used: 50 how long ago did patient quit smoking: Smoked ~1/2 ppd x 50 years until quit. alcohol intake: never substance use type: does not use caffeine: Yes Type: coffee Number of servings: 1 ROS ROS ED ROS Narrative Constitutional: Denies any fevers, chills, headaches, lightheadedness, dizziness ENT: Denies any change with double vision blurry vision Cardiovascular: Denies chest pain or palpitations Respiratory: Denies coughing wheezing shortness of breath Abdomen: Denies any nausea vomit diarrhea Musculoskeletal: Complains of right lower extremity pain as noted above Skin: Denies any rashes or lesions Neurologic: Denies any new numbness, weakness, tingling EXAM Physical Exam Narrative Exam Narrative: General: Patient is lying in bed rest comfortably did not appear to be in acute distress Head: Atraumatic, normocephalic EENT: Pupils equal round react light bilaterally, extraocular muscles intact bilateral, no conjunctival injection noted Neck: Soft, supple, trachea midline Cardiovascular: Regular rate and rhythm no murmurs gallops rubs noted Respiratory: Clear to auscultation bilaterally Extremities: DP pulses +2/4 in the right lower extremity, compartment soft compressible, patient does have a well-healing scab on the lateral aspect of the right anterior leg no surrounding erythema or active drainage noted. Skin: Warm, dry, intact to see extremities Psychiatric: Mood affect appropriate Neurologic: Patient flank pain so he is [facility] there is 124 Const Vital Signs: 11/27/23 10:11 Temperature 97.4 F L Temperature Source Temporal Pulse Rate 63 Respiratory Rate 15 Blood Pressure 102/64 Blood Pressure Mean 76 Pulse Ox 97 Oxygen Delivery Method Room Air MDM MDM MDM Narrative Medical decision making narrative: Patient is a 68-year-old male who presented to the emerged part with chief complaint of right lower extremity pain. Patient will have workup performed here on the differential diagnose includes but not limited to DVT, shinsplints, pathological fracture, stress fracture. Once workup is obtained reviewed he wi ll be reevaluated. Patient's BMP was reviewed and showed normal sodium 140, potassium 4.1, creatinine was 1.91 which is around his baseline he does have underlying chronic kidney disease calcium was normal at 8.9. Patient's ultrasound of his right lower extremity did not show any evidence of DVT. Discussed the results with the patient he would like to go home at this point in time. He was encouraged to continue ice, elevate, use ibuprofen/Tylenol for pain control at home. He is encouraged to follow-up with his primary care physician in 2 to 3 days. He was encouraged return with worsening symptoms or other concerns he is agreeable to spinal cord concerns as he was discharged home in stable condition. Lab Data Labs: Laboratory Results - last 24 hr 11/27/23 10:55 Sodium 140 Potassium 4.1 Chloride 110 H Carbon Dioxide 25.0 Anion Gap 5 BUN 25 H Creatinine 1.91 H Estim Creat Clear Calc 46.59 Est GFR (MDRD) Af Amer 45 L Est GFR (MDRD) Non-Af 37 L BUN/Creatinine Ratio 13.1 Glucose 119 H Calcium 8.9 Radiography Diagnostic Testing: Clinical Impression(s) from Imaging Studies Tibia/Fibula X-Ray 11/27/23 11:20 IMPRESSION: Old avulsion fracture of the medial and lateral malleoli. Electronically Signed: James Bell MD at 12:15 EDT , Discharge Plan Triage Chief Complaint: Lower Extremity Injury ED Provider: Remigio Breaux Dx/Rx/DC Orders Clinical Impression: Leg pain, right Prescriptions: No Action amlodipine 10 mg tablet 10 mg PO QHS insulin glargine-yfgn 100 unit/mL (3 mL) insulin pen 20 unit subcut QHS Patient Comments: PATIENT ONLY TAKES 20 UNITS IF SUGAR OVER 150 sildenafil 100 mg tablet 100 mg PO DAILY PRN (Reason: sexual activity) Qty: 30 3RF Rx Instructions: administer 30 minutes to 4 hours before activity Ozempic 0.25 mg or 0.5 mg (2 mg/3 mL) pen injector 0.25 mg subcut FR glipizide 5 mg tablet 5 mg PO DAILY trazodone 100 mg tablet 100 mg PO QHS Xarelto 10 mg tablet 10 mg PO DAILY Rx Instructions: for 35 days atorvastatin 80 MG tablet 80 mg PO QHS ascorbic acid (vitamin C) 1,000 MG tablet 1,000 mg PO DAILY aspirin 81 MG tablet,chewable 81 mg PO DAILY@0800 carvedilol 12.5 MG tablet 12.5 mg PO BID Patient Comments: TAKES AT 1300 AND QHS zinc sulfate 50 mg zinc (220 mg) capsule 50 mg PO DAILY losartan 50 mg tablet 50 tab PO QHS Patient Comments: Take 1 tablet by mouth once daily. magnesium 250 mg tablet 250 mg PO DAILY insulin lispro [Humalog Ori KwikPen U-100] .Route Patient Comments: IF BLOOD SUGAR >150 acetaminophen 500 mg Tablet 1,000 mg PO Q8 Qty: 0 0RF docusate sodium 100 mg Capsule 100 mg PO BID PRN PRN (Reason: Constipation) Qty: 0 0RF gabapentin 600 mg tablet 600 mg PO TIDCM 30 Days Qty: 90 0RF Primary Care Provider: Emmett Rosario Referrals: Emmett Rosario MD [Primary Care Provider] - Activity Restrictions/Additional Instructions: Follow-up your primary care physician 2 to 3 days. Return with worsening symptoms or any other concerns. Use ice, elevate and Tylenol for pain control. Print Language: [place] Disposition Disposition: Home, Self Care
[2023-11-27 11:19] LABS: Anion Gap 5 (5-15); BUN 25 mg/dL (7-18); BUN/Creat Ratio 13.1 RATIO (10-20); Calcium,Total 8.9 mg/dL (8.5-10.1); Chloride 110 mmol/L (98-107); Creatinine, Serum 1.91 mg/dL (0.70-1.30); EST Glomerular Filtration Rate 37 mL/min (>60); Est Glom Filt Rate - Afr Amer 45 mL/min (>60); Estimated Creatinine Clearance 46.59 ml/min; Glucose 119 mg/dL (74-106); Potassium 4.1 mmol/L (3.5-5.1); Sodium Level 140 mmol/L (136-145)
--- NOTE | 2023-11-27 11:20 | RAD_ITS ---
STUDY: X-RAY - RIGHT TIBIA AND FIBULA REASON FOR EXAM: Male, 68 years old. One week history of lower extremity pain. No known injury. TECHNIQUE: 3 view(s) of the tibia and fibula were obtained. COMPARISON: None. FINDINGS: Normal visualized tibia. Old avulsion fracture of the lateral malleolus. Old avulsion fracture medial malleolus. Soft tissue swelling. RAD/Tibia & Fibula 2 Views IMPRESSION: Old avulsion fracture of the medial and lateral malleoli. Electronically Signed: James Bell MD at 12:15 EDT ,
[2023-11-27 14:10] VITALS: BP 102/64; PULSE 63; RESP 15; TEMP 36.3; O2SAT 97
== END 2023-11-27 14:13 | disposition home or self-care (01) ==
PROVIDERS: Emergency Provider Emergency Medicine; PCP Internal Medicine; Visit Provider Emergency Medicine
DX: M79.604 Pain in right leg (principal); J44.9 Chronic obstructive pulmonary disease, unspecified; E11.22 Type 2 diabetes mellitus with diabetic chronic kidney disease; E11.42 Type 2 diabetes mellitus with diabetic polyneuropathy; I25.10 Atherosclerotic heart disease of native coronary artery without angina pectoris; N18.9 Chronic kidney disease, unspecified; G47.33 Obstructive sleep apnea (adult) (pediatric); Z86.718 Personal history of other venous thrombosis and embolism; Z95.5 Presence of coronary angioplasty implant and graft; Z87.891 Personal history of nicotine dependence
CPT/HCPCS: 73590; 80048; 93971; 99282

== ENCOUNTER → 2024-01-26 | Outpatient (CLI) | payer MEDICARE, BC, SELFPAY ==
[2024-01-26 11:29] LABS: Bacteria 0 SEEN /hpf (None Seen); Mucous, Urine 0 SEEN /hpf (<or=2+); Red Blood Cells-Urine 0 SEEN /hpf (0-5); Squamous Epithelial Cells - UA 0 SEEN /hpf (0-5); White Blood Cells 0 SEEN /hpf (0-5)
[2024-01-26 12:08] LABS: Color, Urine Yellow (Yellow); Glucose, Dipstick Normal (Normal); Ketone-Dipstick Negative (Negative); Leukocyte Esterase-Dipstick Negative /ul (Negative); Nitrite-Dipstick Negative (Negative); Occult Blood-Urine Negative /ul (Negative); Protein-Dipstick 30 mg/dl (Negative); Specific Gravity, Urine 1.015 (1.002-1.030); Urine Bilirubin Dipstick Negative (Negative); Urine Clarity Clear (Clear); Urine Urobilinogen Normal (Normal); Urine pH 6.5 (5.0 - 8.0)
[2024-01-26 12:18] LABS: Absolute Lymphocyte Count 2.18 X10^3/uL (0.83-4.51); Absolute Neutrophil Count 5.4 X10^3/uL (2.0-7.7); Basophil% 1.1 % (0-1); Eosinophil# 0.26 X10^3/uL; Hematocrit 48.7 % (40-54); Hemoglobin 15.9 g/dL (13.0-16.5); Lymphocyte # 2.18 X10^3/ul (0.83-4.51); Lymphocyte % 24.7 % (19-41); Mean Corp Hgb Conc 32.6 g/dL (32-36); Mean Corpuscular Hgb 28.3 pg (27.0-32.0); Mean Corpuscular Volume 86.8 fL (80-94); Mean Platelet Vol. 10.6 fl (6.2-12.0); Monocyte# 0.83 X10^3/uL; Monocyte% 9.4 % (0-10); NRBC Flagged by Analyzer 0 % (0-5); Neutrophil # 5.41 X10^3/uL (2.7-7.7); Neutrophil % 61.5 % (47-70); Platelet Count 184 K/mm3 (150-450); RBC Distribution Width SD 47.8 fl (35.1-43.9); Red Blood Count 5.61 M/mm3 (4.6-6.2); White Blood Count 8.8 K/mm3 (4.4-11.0)
[2024-01-26 12:36] LABS: PTHIN 37.8 pg/mL (18.4-80.1)
[2024-01-26 12:39] LABS: Vitamin D,25 Hydroxy 44.2 ng/mL
[2024-01-26 12:51] LABS: ALB/GLOB Ratio 0.8 RATIO (0.9-2.4); AST(SGOT) 23 U/L (15-37); Alanine Aminotransfer ALT/SGPT 26 U/L (16-61); Albumin, Serum 3.1 g/dL (3.2-5.0); Alkaline Phosphatase 138 U/L (45-117); Anion Gap 6 (5-15); BUN 28 mg/dL (7-18); BUN/Creat Ratio 14.3 RATIO (10-20); Calcium,Total 9.4 mg/dL (8.5-10.1); Chloride 105 mmol/L (98-107); Creatinine, Serum 1.96 mg/dL (0.70-1.30); EST Glomerular Filtration Rate 36 mL/min (>60); Est Glom Filt Rate - Afr Amer 44 mL/min (>60); Globulin 3.9 g/dL (2.2-4.2); Glucose 137 mg/dL (74-106); Phosphorus 3.2 mg/dL (2.5-4.9); Potassium 4.4 mmol/L (3.5-5.1); Sodium Level 138 mmol/L (136-145); Uric Acid 4.7 mg/dL (3.5-7.2)
== END | disposition home or self-care (01) ==
PROVIDERS: PCP Internal Medicine
DX: N18.32 Chronic kidney disease, stage 3b (principal); E55.9 Vitamin D deficiency, unspecified
CPT/HCPCS: 36415; 80053; 81001; 82306; 83970; 84100; 84550; 85025

== ENCOUNTER 2024-02-01 10:54 | Emergency (ER) | payer MEDICARE, BC, SELFPAY ==
[2024-02-01 10:55] VITALS: BP 109/75; PULSE 57; RESP 16; TEMP 36.7; O2SAT 95
--- NOTE | 2024-02-01 11:17 | VDLE_ITS ---
Reason For Study: Right leg swelling RIGHT LEFT GSV is normal. CFV is compressible, spontaneous, phasic, CFV is compressible, spontaneous, phasic, competent, and demonstrates normal competent and demonstrates normal augmentation. augmentation. FV is compressible, spontaneous, phasic, competent and demonstrates normal augmentation. Acute deep vein thrombosis is noted in the POP V, T/P Trunk, PTV, PeroV and SoleusV. It is dilated and NONCOMPRESSIBLE. Procedure This is a venous duplex using B-mode, color flow and spectral Doppler. Exam performed portable in ED. A preliminary report was called and/or faxed to Dr. Longo. VL/Venous Duplex US, Unilateral Interpretation Summary Acute deep vein thrombosis is noted in the right popliteal vein, tibioperoneal trunk vein, posterior tibial vein, peroneal vein, soleus vein. Ordering Physician: Emma Longo Referring Physician: Emmett Rosario Performed By: Liana Patino RVT
--- NOTE | 2024-02-01 11:18 | EDS_ITS ---
HPI History of Present Illness Chief Complaint: Edema Detail of Chief Complaint: Right leg swelling Informant: patient Narrative Narrative: Patient presents with right leg swelling that started a week ago. He denies injury. 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 Patient denies fevers or chills or sweats. He did have recent travel to [place] via car. Patient thinks he may have a blood clot because he has had a blood clot in his arm before. He is not currently anticoagulated. [facility] Medical History (Updated 02/01/24 @ 12:[address] Emma Longo, DO) Prosthesis fitting Wears glasses MRSA infection Open wound Arthritis Prostate disease Injury of back Chronic cough Smoker Shortness of breath on exertion Neuropathy Elevated PSA BPH (benign prostatic hyperplasia) Left flank pain Insulin dependent diabetes mellitus Uses wheelchair Back pain Dietary restriction BiPAP (biphasic positive airway pressure) dependence History of edema History of echocardiogram History of stress test Cardiology follow-up encounter Insomnia Preoperative evaluation to rule out surgical contraindication Peripheral neuropathy Other acute osteomyelitis, left ankle and foot Osteomyelitis of foot, left, acute Atherosclerotic heart disease of [place] coronary artery without angina pectoris Essential hypertension Osteomyelitis Diabetes mellitus Status post debridement of ulcer of heel Sepsis Wears hearing aid in both ears Cancer Myocardial infarct Chest pain DVT (deep venous thrombosis) CKD (chronic kidney disease), stage III History of kidney cancer Obesity Former tobacco use CAMACHO (obstructive sleep apnea) COPD (chronic obstructive pulmonary disease) 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 Home Medications ?Medication ?Instructions ?Recorded ?Last Taken ?Type ascorbic acid (vitamin C) 1,000 mg 1,000 mg PO DAILY vitamin 07/11/20 05/27/21 History tablet aspirin 81 mg chewable tablet 81 mg PO DAILY@0800 heart health 07/11/20 08/19/23 05:30 History atorvastatin 80 mg tablet 80 mg PO QHS cholesterol 07/11/20 05/27/21 History carvedilol 12.5 mg tablet 12.5 mg PO BID blood pressure 08/17/20 08/19/23 00:00 History zinc sulfate 50 mg zinc (220 mg) 50 mg PO DAILY supplement 06/29/21 Unknown History capsule losartan 50 mg tablet 50 tab PO QHS BP 11/05/21 Unknown History amlodipine 10 mg tablet 10 mg PO QHS BP 11/23/21 Unknown History insulin glargine-yfgn 100 unit/mL 20 unit subcut QHS DIABETES 05/09/22 Unknown History (3 mL) subcutaneous pen sildenafil 100 mg tablet 100 mg PO DAILY PRN sexual 08/02/22 Unknown Rx activity #30 tabs magnesium 250 mg tablet 250 mg PO DAILY SUPPLEMENT 11/22/22 Unknown History semaglutide 0.25 mg or 0.5 mg (2 0.25 mg subcut FR DIABETES 07/24/23 Unknown History mg/3 mL) subcutaneous pen injector (Ozempic) insulin lispro .Route DIABETES 08/19/23 Unknown History acetaminophen 500 mg tablet 1,000 mg (2 x 500 mg) PO Q8 #0 tabs 08/21/23 Unknown Rx docusate sodium 100 mg capsule 100 mg PO BID PRN PRN Constipation 08/21/23 Unknown Rx #0 caps gabapentin 600 mg tablet 600 mg PO TIDCM NERVE PAIN 30 days 08/21/23 Unknown Rx #90 tabs glipizide 5 mg tablet 5 mg PO DAILY 09/17/23 Unknown History rivaroxaban 10 mg tablet (Xarelto) 10 mg PO DAILY 09/17/23 Unknown History trazodone 100 mg tablet 100 mg PO QHS 09/17/23 Unknown History apixaban 5 mg (74 tabs) tablets in See Rx Instructions .Route 02/01/24 Unknown Rx a dose pack (Eliquis DVT-PE Treat .COMPLEX #74 tabs 30D Start) Allergy/AdvReac Type Severity Reaction Status Date / Time No Known Allergies Allergy Verified 02/01/24 10:55 Family History Father CVA (cerebral vascular accident) Myocardial infarction Mother Dementia Surgical History History of surgery on lower extremity Hx of foot surgery History of lumbar fusion History of fusion of cervical spine Hx of foot surgery History of appendectomy History of coronary artery stent placement (~08/13/07) History of surgery on arm Hx of partial nephrectomy Previous back surgery Social History household members: none Smoking Status: Light Smoker (<10/day) Tobacco: How many years used: 50 how long ago did patient quit smoking: Smoked ~1/2 ppd x 50 years until quit. alcohol intake: never substance use type: does not use caffeine: Yes Type: coffee Number of servings: 1 ROS ROS ED Review of Systems ROS Unobtainable: other Constitutional Constitutional ED: Reports lethargy; Denies chills, fever(s), sweats or weight loss Eyes Eyes: Denies blurry vision, change in vision or diplopia ENT ENT ED: Denies rhinorrhea or sore throat Cardiovascular Cardiovascular: Denies chest pain, orthopnea or racing heartbeat Respiratory/Chest Respiratory/Chest: Denies cough, dyspnea, dyspnea on exertion, orthopnea or sputum Gastrointestinal Gastrointestinal: Denies abdominal pain, diarrhea, nausea or vomiting Genitourinary Genitourinary ED: Denies dysuria, hematuria or urinary frequency Musculoskeletal Musculoskeletal: Reports other Details: Right leg edema ; Denies arthralgias, back pain, myalgias or neck pain Integumentary Denies abscess, Abrasions or rash Neurologic Neurologic: Denies headache(s) or weakness Psychiatric Psychiatric: Denies anxiety, depression or suicidal thoughts Endocrine Endocrinology: Denies polydipsia, polyphagia or polyuria Hematologic/Lymphatic Hematologic/Lymphatic: Denies easy bleeding, easy bruising or lymphadenopathy Allergic/Immunologic Allergic/Immunologic ED: Denies mouth swelling, tongue swelling or urticaria EXAM Physical Exam Const Vital Signs: 02/01/24 10:55 Temperature 98.1 F Temperature Source Oral Pulse Rate 57 L Respiratory Rate 16 Blood Pressure 109/75 Blood Pressure Mean 86 Pulse Ox 95 Oxygen Delivery Method Room Air Positive well nourished and well developed General Appearance ED: well developed and NAD HEENT Reports TM's clear and moist mucous membranes normocephalic and atraumatic; Negative for trauma or tenderness Tympanic Membrane ED: Yes TM's clear Eyes PERRL and EOMs intact bilaterally General Eye ED: Negative for pale conjunctiva or scleral icterus Neck no lymphadenopathy, supple and no JVD General: Negative for tenderness Chest Wall inspection of chest normal and palpation of chest normal Chest: Negative for tenderness Resp normal respiratory effort and clear to auscultation bilaterally Effort and Inspection: Negative for respiratory distress or pain with movement Auscultation: Negative for rhonchi, wheezes or diminished lung sounds Cardio regular rate, regular rhythm, S1 normal heart sound, S2 normal heart sound and no murmurs Peripheral Pulses: pulses 2+ throughout GI normal to inspection, nondistended, normoactive bowel sounds, soft to palpation, non-tender, non-distended and no masses Back/Spine no CVA tenderness and no thoracic nor lumbar tenderness Extremity Extremity Narrative: Right lower extremity-patient does have +2 edema from below the knee down to the dorsum of the foot. Minimal faint erythema. No ropes or cords palpated. Positive Homans' sign. Normal dorsal pedal posterior tibial and popliteal pulses noted on exam. General Extremety ED: Negative for edema General Extremity: Negative for edema Neuro oriented x3, CN's II-XII intact bilaterally, no sensory deficits noted and gait normal Sensorium / Orientation: awake, alert, oriented to person, oriented to place and oriented to time Motor Exam: strength 5/5 throughout and strength abnormal Psych mental status grossly normal Skin no rashes or lesions noted and no wounds MDM MDM MDM Narrative Medical decision making narrative: Patient presents with a swollen right leg that has had for about a week and had recent travel. Concern for DVT. Patient with prior history of DVT in his arm. Denies any injury. 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 Do not suspect CHF. IV line established. CBC with differential white, 6.8 with hemoglobin 16 and platelet count of 204. Chemistries pending. Patient had a venous Doppler of the right lower extremity that showed a DVT in the popliteal vein below the knee. Patient will be started on Eliquis. Will refer to Dr. Baptiste for follow-up. Given instructions on returning for pallor to the extremity or excruciating pain or tight compartments or paresthesias or condition should worsen anyway. Also advised on being evaluated for head injuries once he starts the Eliquis as well as returning for GI bleed or other sources of bleeding. Lab Data Attestation: I reviewed the patient's lab results. Labs: Laboratory Results - last 24 hr 02/01/24 11:27 WBC 6.8 RBC 5.66 Hgb 16.1 Hct 49.1 MCV 86.7 MCH 28.4 MCHC 32.8 RDW Std Deviation 48.0 H RDW Coeff of Darrell 15.1 H Plt Count 204 MPV 10.3 Immature Gran % (Auto) 0.300 Neut % (Auto) 61.1 Lymph % (Auto) 27.7 [place] % (Auto) 7.3 Eos % (Auto) 2.6 Baso % (Auto) 1.0 Absolute Neuts (auto) 4.2 Absolute Lymphs (auto) 1.89 Nucleated RBC % 0 Discharge Plan Triage Chief Complaint: Edema ED Provider: Emma Longo Dx/Rx/DC Orders Clinical Impression: DVT (deep venous thrombosis) Instructions: DVT Dc Prescriptions: New StyleHop DVT-PE Treat 30D Start 5 mg (74 tabs) Tablets,Dose Pack See Rx Instructions .ROUTE .COMPLEX Qty: 74 0RF Rx Instructions: orally per package directions No Action amlodipine 10 mg tablet 10 mg PO QHS insulin glargine-yfgn 100 unit/mL (3 mL) insulin pen 20 unit subcut QHS Patient Comments: PATIENT ONLY TAKES 20 UNITS IF SUGAR OVER 150 sildenafil 100 mg tablet 100 mg PO DAILY PRN (Reason: sexual activity) Qty: 30 3RF Rx Instructions: administer 30 minutes to 4 hours before activity Ozempic 0.25 mg or 0.5 mg (2 mg/3 mL) pen injector 0.25 mg subcut FR glipizide 5 mg tablet 5 mg PO DAILY trazodone 100 mg tablet 100 mg PO QHS Xarelto 10 mg tablet 10 mg PO DAILY Rx Instructions: for 35 days atorvastatin 80 MG tablet 80 mg PO QHS ascorbic acid (vitamin C) 1,000 MG tablet 1,000 mg PO DAILY aspirin 81 MG tablet,chewable 81 mg PO DAILY@0800 carvedilol 12.5 MG tablet 12.5 mg PO BID Patient Comments: TAKES AT 1300 AND QHS zinc sulfate 50 mg zinc (220 mg) capsule 50 mg PO DAILY losartan 50 mg tablet 50 tab PO QHS Patient Comments: Take 1 tablet by mouth once daily. magnesium 250 mg tablet 250 mg PO DAILY insulin lispro [Humalog Ori KwikPen U-100] .Route Patient Comments: IF BLOOD SUGAR >150 acetaminophen 500 mg Tablet 1,000 mg PO Q8 Qty: 0 0RF docusate sodium 100 mg Capsule 100 mg PO BID PRN PRN (Reason: Constipation) Qty: 0 0RF gabapentin 600 mg tablet 600 mg PO TIDCM 30 Days Qty: 90 0RF Primary Care Provider: Emmett Rosario Referrals: Emmett Rosario MD [Primary Care Provider] - Toney Baptiste MD [Med Staff - Active Staff] - 3-5 Days Print Language: Setswana Disposition Disposition: Home, Self Care
[2024-02-01 11:45] LABS: Absolute Lymphocyte Count 1.89 X10^3/uL (0.83-4.51); Absolute Neutrophil Count 4.2 X10^3/uL (2.0-7.7); Basophil# 0.07 X10^3/uL; Eosinophil# 0.18 X10^3/uL; Eosinophils% 2.6 % (0-5); Hematocrit 49.1 % (40-54); Hemoglobin 16.1 g/dL (13.0-16.5); Lymphocyte # 1.89 X10^3/ul (0.83-4.51); Lymphocyte % 27.7 % (19-41); Mean Corp Hgb Conc 32.8 g/dL (32-36); Mean Corpuscular Hgb 28.4 pg (27.0-32.0); Mean Corpuscular Volume 86.7 fL (80-94); Mean Platelet Vol. 10.3 fl (6.2-12.0); Monocyte% 7.3 % (0-10); NRBC Flagged by Analyzer 0 % (0-5); Neutrophil # 4.16 X10^3/uL (2.7-7.7); Neutrophil % 61.1 % (47-70); Platelet Count 204 K/mm3 (150-450); RBC Distribution Width CV 15.1 % (11.6-14.6); Red Blood Count 5.66 M/mm3 (4.6-6.2); White Blood Count 6.8 K/mm3 (4.4-11.0)
[2024-02-01 12:02] LABS: Anion Gap 8 (5-15); BUN 34 mg/dL (7-18); BUN/Creat Ratio 15.9 RATIO (10-20); Calcium,Total 9.3 mg/dL (8.5-10.1); Chloride 107 mmol/L (98-107); Creatinine, Serum 2.14 mg/dL (0.70-1.30); EST Glomerular Filtration Rate 33 mL/min (>60); Est Glom Filt Rate - Afr Amer 40 mL/min (>60); Glucose 153 mg/dL (74-106); Potassium 4.3 mmol/L (3.5-5.1); Sodium Level 141 mmol/L (136-145)
[2024-02-01] MEDS: APIXABAN 5 MG TABLET 10 MG PO (12:33)
== END 2024-02-01 12:38 | disposition home or self-care (01) ==
PROVIDERS: Emergency Provider Emergency Medicine; PCP Internal Medicine; Visit Provider Emergency Medicine
DX: I82.431 Acute embolism and thrombosis of right popliteal vein (principal); J44.9 Chronic obstructive pulmonary disease, unspecified; E11.22 Type 2 diabetes mellitus with diabetic chronic kidney disease; E11.42 Type 2 diabetes mellitus with diabetic polyneuropathy; N18.30 Chronic kidney disease, stage 3 unspecified; I25.10 Atherosclerotic heart disease of native coronary artery without angina pectoris; G47.33 Obstructive sleep apnea (adult) (pediatric); Z86.718 Personal history of other venous thrombosis and embolism; Z87.891 Personal history of nicotine dependence; Z95.5 Presence of coronary angioplasty implant and graft
CPT/HCPCS: 80048; 85025; 93971; 99282; A4216

== ENCOUNTER 2024-04-06 11:00 | Outpatient (RCR) | payer MEDICARE, BC, SELFPAY ==
--- NOTE | 2024-01-07 11:54 | HP.PTEVAL ---
Patient's Visit Information Visit Information Visit Information: JUAREZ GOODRICH is a 68 year old M referred to Physical Therapy by Dr. Emmett Rosario MD with a diagnosis of L BKA amputation. Date of Evaluation: 01/07/24 Physical Therapist: Toney Mcdonald, DPT, OCS, CSCS Visit Plan Frequency: 2x /Week Duration: 4-6 Weeks Plan: 2x/week for 4-6 weeks to start for... 1. stump care(ensure not breaking down with WB) and teach ROm and strength for HEP(IE given prone quad stretch with leg on bolster. 5 min 2x/day 2. Gait training with decreasing AD making sure stump not breaking down and working on gait pattern, balance, weight shift, pregait and eventual steps. Subjective Subjective: Sheryl BKA. [facility] clinic suggested therapy for gait. Has had prosthesis for 3 weeks.No falls and walking with wh walker. L amputation since August 19, 2023 after bad infection on foot. Did not heal for two years and chose to have it amputated after 2 yrs of treatment. Has DM with some neuropathy. Prior to prosthesis was getting around on knee scooter. Leg is healed up. Was going to [facility] office to learn sleeves and donning and doffing and now can do it himself. Wants to walk better and lose Wh Walker. Wants to work out in yard as the walker is limiting. Sleeps is good, gets some phantom pain at times. Improving phantom pain to now some days without it. Retired. Wants to spend day cutting grass and wood and yard work and workign in work shop. Can use riding mower. Exercises: seated marching and movements of LE, sink push ups and arm weights. Currently spends day doing seated housework. Dits around a lot especially at night. Reads [employer]. [place] but has not lately leaves prosthesis on 5-6 hours at a time now, sore at end of stump after that time. Objective Objective: Sheryl BKA , tends to stadn with prosthetic knee slightly bent but can stand without support with ec adn head moving with decent safe balance. Walks with wh walker mod I, no extension in L hip with ambulation and c/o pain lateral stump with excessive WB, the prosthesis was just modified to attempt to accomodate this last week. Pt never gets L knee to full [id number] until cued in standing and does not in ambulation due to discomfort. Able to ambulate with LBQC 60 feet today with the same gait patterns and limited by pain in lateral distal stump with WB. Able to take 3 short steps without AD today with Min A and similar pain. Able to march in place but short stance time on L due to discomfort(no AD) Stump is healed well and not discolored, no openness, no excessive redness or heat or swelling today. Educated on monitorring for redness/breakdown and max protection of stump with frequent visual monitors. L hip AROM ext 4 degrees and tightness in LB, abduction and flexion WFL. quad psoas mod tight, HS min tight B. knee AROM B 0-130 without pain. R ankle aROM WFL. sensation distal LE R WNL to ngross light touch as is stump. trunk strength 4+/5 and trasnfers table, chair , rolls I with UE. Dons and doffs prsthesis I today without assist. Strength L hip 4+/5 all directions, R hip 4+/5, R knee 5/5, R ankle 5/5 Balance/Special Test Scores Lower Extremity Functional Score: 26 Goals Goal 1:: Ambulate FWB with cane in community without pain or hesitation Goal Time Frame: 4-6 Weeks Goal 2:: I appropr HEP to limiti future problems(LE strength and quad strecth L Goal Time Frame: 4-6 Weeks Goal 3:: Able to ambulate without AD 200 feet I without pain Goal Time Frame: 4-6 Weeks Rehabilitation Potential Physical Therapy Diagnosis: difficulty with ambulation after BKA L Rehabilitation Potential: Good Anticipated Interventions Patient/Client Instruction: Educate patient on: Condition and Plan of Care For the Purpose of:: To decrease pain, To increase ROM, To improve nutrient delivery to tissue, To increase tolerance to activity/condition/position and To improve gait and locomotor functions Therapeutic Exercise to Include: Strength training, Postural training, Flexibilty training, Gait and locomotor training, Passive ROM and Active ROM For the Purpose of:: To decrease pain, To increase ROM, To improve nutrient delivery to tissue, To increase tolerance to activity/condition/position and To improve gait and locomotor functions Text: Thank you for the opportunity to evaluate your patient. For Medicare and Medicare HMO plans, please review the plan of care and approve it. It will need to be FAXED BACK to us at [phone] for Medicare purposes. For Medicare only, by signing this I certify the plan of care. Please let me know if there are questions or concerns regarding this plan of care. Physician Signature: Date:
--- NOTE | 2024-02-12 12:03 | HP.PTREVAL ---
Re-Evaluation Intro: Dr. Emmett Rosario MD, It has been my pleasure to treat JUAREZ GOODRICH over the last 7 visits for L BKA amputation. Please see the progress note below for an update on the physical therapy plan of care! Subjective Subjective: Frustrated with pain anterior dempsey. Happens fairly quickly in first couple steps. Gel has not helped. Pain is 7/10 with ambulation. doing HEP of SLR, band abduction, Doing 30. Stays home most of the time. Objective Objective/Function: Walking with walker 7/10 pain and with cane and without AD with 8/10 pain in atnerior stump due to weight bearing, no redness or breakdown and disappears as soon as he sits. Can do 40 feet without AD with CGA, cane SBA and Mod i with wh walker. 3 degrees B hip extension before back pain. Plan Plan Plan: 2x/week for 4 weeks...New POC spend 15 minutes working on stump massage and desensitization pressure then 15 min gait with LRD, may use TENS on stump and mobs for hip extension. Keep eye on skin integrity in stump. Balance/Gait/Functional tests Balance/Special Test Scores Lower Extremity Functional Score: 26 Goals Goals Goal 1:: Ambulate FWB with cane in community without pain or hesitation Goal Time Frame: 4-6 Weeks Goal Progress: huirts Goal 2:: I appropr HEP to limiti future problems(LE strength and quad strecth L Goal Time Frame: 4-6 Weeks Goal Progress: met Goal 3:: Able to ambulate without AD 200 feet I without pain Goal Time Frame: 4-6 Weeks Goal Progress: 50 today Goal 4:: 8 hip ext B without pain LB Goal Time Frame: 4-6 Weeks Goal Progress: NEW GOAL Goal 5:: Pain stump 5/10 with WB at most Goal Time Frame: 4-6 Weeks Goal Progress: NEW GOAL Anticipated Interventions Anticipated Interventions Patient/Client Instruction: Educate patient on: Condition and Plan of Care For the Purpose of:: To decrease pain, To increase ROM, To improve nutrient delivery to tissue, To increase tolerance to activity/condition/position and To improve gait and locomotor functions Therapeutic Exercise to Include: Strength training, Postural training, Flexibilty training, Gait and locomotor training, Passive ROM and Active ROM For the Purpose of:: To decrease pain, To increase ROM, To improve nutrient delivery to tissue, To increase tolerance to activity/condition/position and To improve gait and locomotor functions Re-Evaluation Ending Re-evaluation ending: Please do not hesitate to contact me at [phone] by phone or if you have questions or concerns regarding this new plan of care! Sincerely, Toney Mcdonald, DPT, OCS, CSCS
--- NOTE | 2024-03-10 11:53 | HP.PTREVAL_ITS ---
Re-Evaluation Intro: Dr. Emmett Rosario MD, It has been my pleasure to treat JUAREZ GOODRICH over the last 15 visits for L BKA amputation. Please see the progress note below for an update on the physical therapy plan of care! Subjective Subjective: Getting worse as back hurts, doc said he needs back surgery but pateint refusing right now. Pain in LB is 8/10 lately. Leg is comfortable at rest. Stump 6-8/10. Modficiations made by prsothetitan and gel pads given but not helping much. Not using gel pads as it is hard to get stump on. Asked to stop stump massage. Got a few blisters in anterior stump but they are gone now. Refuses to to take prosthesis off for me today. To prosthetitian next week. Overall improving feeling with walking. using cane at home when prosthesis is on to kitchen and bathroom, not needed by counters. Only using wh walker when o ut of prosthesis. In prosthesis 10 hours per day. Objective Objective/Function: Walking with cane mod I into and out of PT. slight lateral whip with WB in L LE. Also does not get full knee ext during ambulation but senems happier with walking motion, pain persists with being on ffet alot and has gotten more back pain as he has diminished use of walker. neutral hip extension on L and and still tight in quad. Refuses to doff prosthesis today stating he is fine underneath and does not wish to remove it despite being asked 2x. overall more comfortable with gait pattern despite not being perfect and tolerating more WB cane vs walker but pain in stump persists with WB(comfotable at rest) and pain in back increasing. Wishes to try walking on his own with cane at home to get used to it and continuing HEP vs more consistent therapy. will f./u in a month Plan Plan Plan: F.U one month to check ambulation with cane, without AD, back pain, stump pain and exercises Pt to call prior if needs increase or situation changes. Goals still appropriate for next 4 weeks with fair prognosis Balance/Gait/Functional tests Balance/Special Test Scores Lower Extremity Functional Score: 26 Goals Goals Goal 1:: Ambulate FWB with cane in community without pain or hesitation Goal Time Frame: 4-6 Weeks Goal Progress: still painful Goal 2:: I appropr HEP to limiti future problems(LE strength and quad strecth L Goal Time Frame: 4-6 Weeks Goal Progress: met, compliance? Goal 3:: Able to ambulate without AD 200 feet I without pain Goal Time Frame: 4-6 Weeks Goal Progress: Progressing Goal 4:: 8 hip ext B without pain LB Goal Time Frame: 4-6 Weeks Goal Progress: Not Progressing Goal 5:: Pain stump 5/10 with WB at most Goal Time Frame: 4-6 Weeks Goal Progress: Not Progressing Anticipated Interventions Anticipated Interventions Patient/Client Instruction: Educate patient on: Condition and Plan of Care For the Purpose of:: To decrease pain, To increase ROM, To improve nutrient delivery to tissue, To increase tolerance to activity/condition/position and To improve gait and locomotor functions Therapeutic Exercise to Include: Strength training, Postural training, Flexibilty training, Gait and locomotor training, Passive ROM and Active ROM For the Purpose of:: To decrease pain, To increase ROM, To improve nutrient delivery to tissue, To increase tolerance to activity/condition/position and To improve gait and locomotor functions Re-Evaluation Ending Re-evaluation ending: Please do not hesitate to contact me at [phone] by phone or if you have questions or concerns regarding this new plan of care! Sincerely, Toney Mcdonald, DPT, OCS, CSCS
--- NOTE | 2024-04-06 11:21 | HP.PTDCSUM ---
Discharge Summary D/C summary: It has been my pleasure to treat JUAREZ GOODRICH referred by Dr. Emmett Rosario MD, with the diagnosis of L BKA amputation for a total of 16 visit(s). Discharge Date: 04/06/24 Please see the following information for a summary of their discharge status. Subjective Subjective: Pain level is 6-8/10 worse with more walking , Prosthetic still hurts. Sees Jada every 2-3 weeks. Has gotten more padding and plastic insert to adjust and adjusting ankle. Getting around better, Uses walker to take prosthetic off. No AD needed with prosthetic on, no falls, not even close. No stpes to do at home except into house from garage. Can do them. 0 /10 at rest and 6/10 with ambulation. Pain back: Pain Intensity (Out of 10): 6 L LE: Pain Intensity (Out of 10): 0 R hip: Pain Intensity (Out of 10): 0 Overall Improvement % Improvement: 85 Objective Objective/Function: Ambulates in I without Ad today. [facility] UE. Did not want to lie down to check ROM today or take prosthesi off, says no skin problems. Steps reciprocally with two rails today easily and did not want hand on gait belt. 450 feet ambulation today with 6/20 pain without AD, Still not getting full extension at heel strike but funcitonally ambulating very well, in fact much improved over a month ago. Goals Goal 1:: Ambulate FWB with cane in community without pain or hesitation Goal Progress: Goal Met Goal 2:: I appropr HEP to limiti future problems(LE strength and quad strecth L Goal Progress: Goal Met Goal 3:: Able to ambulate without AD 200 feet I without pain Goal Progress: Goal Met, still pain. Goal 4:: 8 hip ext B without pain LB Goal Progress: Not Progressing Goal 5:: Pain stump 5/10 with WB at most Goal Progress: Not Progressing Plan Plan: d/c to HEP D/C Information d/c sentence: If there are questions or concerns regarding this patient's physical therapy, please feel free to call me at [phone]. Thank you for the referral of this patient. Sincerely, Toney Mcdonald, DPT, OCS, CSCS Balance/Gait/Functional tests Balance/Special Test Scores Lower Extremity Functional Score: 36 Improvement % Improvement: 85
== END 2024-04-06 19:00 | disposition home or self-care (01) ==
LOC: PT 11:00
PROVIDERS: PCP Internal Medicine; Referring Provider Internal Medicine; Visit Provider Internal Medicine
DX: S88.112D Complete traumatic amputation at level between knee and ankle, left lower leg, subsequent encounter (principal); Z44.9 Encounter for fitting and adjustment of unspecified external prosthetic device
CPT/HCPCS: 97110; 97116; 97140; 97161; 97530

== ENCOUNTER → 2024-07-16 | Outpatient (CLI) | payer MEDICARE, BC, SELFPAY ==
[2024-07-16 14:19] LABS: Albumin, Serum 3.7 g/dL (3.4-4.8); BUN 30 mg/dL (4-19); BUN/Creat Ratio 14.5 RATIO (10-20); Carbon Dioxide 25.7 mmol/L (22.0-29.0); Chloride 105 mmol/L (96-108); Creatinine, Serum 2.06 mg/dL (0.70-1.20); EST Glomerular Filtration Rate 34 (>60); Glucose 173 mg/dL (70-99); Phosphorus 3.6 mg/dL (2.7-4.5); Potassium 4.8 mmol/L (3.3-5.1); Sodium Level 139 mmol/L (133-145); Vitamin D,25 Hydroxy 35.1 ng/mL (30-100)
[2024-07-16 15:40] LABS: Protein, Urine (Random) 19.9 mg/dL (0.0-12.0); Protein:Creat Ratio 305 mg/g CRE (0-200)
== END | disposition home or self-care (01) ==
LOC: LAB 12:56
PROVIDERS: PCP Internal Medicine
DX: E11.21 Type 2 diabetes mellitus with diabetic nephropathy (principal); E11.22 Type 2 diabetes mellitus with diabetic chronic kidney disease; N18.32 Chronic kidney disease, stage 3b; E79.0 Hyperuricemia without signs of inflammatory arthritis and tophaceous disease; Z90.5 Acquired absence of kidney
CPT/HCPCS: 36415; 80069; 82306; 82570; 84156

== ENCOUNTER → 2024-11-12 | Outpatient (CLI) | payer MEDICARE, BC, SELFPAY ==
[2024-11-12 15:30] LABS: Absolute Lymphocyte Count 2.41 X10^3/uL (0.83-4.51); Absolute Neutrophil Count 4.3 X10^3/uL (2.0-7.7); Basophil# 0.08 X10^3/uL; Eosinophil# 0.34 X10^3/uL; Eosinophils% 4.4 % (0-5); Hematocrit 52.2 % (40-54); Lymphocyte # 2.41 X10^3/ul (0.83-4.51); Mean Corp Hgb Conc 32.6 g/dL (32-36); Mean Corpuscular Volume 88.9 fL (80-94); Mean Platelet Vol. 10.7 fl (6.2-12.0); Monocyte# 0.59 X10^3/uL; Monocyte% 7.6 % (0-10); NRBC Flagged by Analyzer 0 % (0-5); Neutrophil # 4.32 X10^3/uL (2.7-7.7); Neutrophil % 55.6 % (47-70); Platelet Count 193 K/mm3 (150-450); RBC Distribution Width SD 49.4 fl (35.1-43.9); Red Blood Count 5.87 M/mm3 (4.6-6.2); White Blood Count 7.8 K/mm3 (4.4-11.0)
[2024-11-12 15:56] LABS: Anion Gap 10 (5-15); BUN 30 mg/dL (4-19); BUN/Creat Ratio 14.2 RATIO (10-20); Calcium,Total 9.6 mg/dL (7.6-11.0); Chloride 105 mmol/L (98-108); Creatinine, Serum 2.14 mg/dL (0.70-1.20); EST Glomerular Filtration Rate 32 (>60); Glucose 110 mg/dL (70-99); Potassium 4.7 mmol/L (3.3-5.1); Sodium Level 139 mmol/L (133-145)
[2024-11-12 15:57] LABS: Hemoglobin A1c 7.4 % (<=5.6)
[2024-11-12 16:01] LABS: PSA,Total - Annual Screen 5.13 ng/mL (0.02-4.00)
== END | disposition home or self-care (01) ==
LOC: BIMLAB 14:18
PROVIDERS: PCP Internal Medicine; Referring Provider Nurse Practitioner Family; Visit Provider Nurse Practitioner Family
DX: Z01.818 Encounter for other preprocedural examination (principal); E11.42 Type 2 diabetes mellitus with diabetic polyneuropathy; N40.0 Benign prostatic hyperplasia without lower urinary tract symptoms; Z12.5 Encounter for screening for malignant neoplasm of prostate
CPT/HCPCS: 80048; 83036; 84153; 85025; G0103

== ENCOUNTER → 2024-12-17 | Outpatient (CLI) | payer MEDICARE, BC, SELFPAY ==
[2024-12-17 13:39] LABS: Creatinine, Urine (random) 74.30 mg/dL (39.00-259.00); Microalbumin,Random Urine 40.5 mg/L (<20 mg/L)
[2024-12-17 14:14] LABS: Vitamin D,25 Hydroxy 44.3 ng/mL (30-100)
[2024-12-17 14:21] LABS: Albumin, Serum 3.8 g/dL (3.4-4.8); Anion Gap 10 (5-15); BUN 28 mg/dL (4-19); BUN/Creat Ratio 13.4 RATIO (10-20); Calcium,Total 9.3 mg/dL (7.6-11.0); Carbon Dioxide 23.7 mmol/L (21.0-32.0); Chloride 105 mmol/L (98-108); Glucose 134 mg/dL (70-99); Potassium 4.8 mmol/L (3.3-5.1)
== END | disposition home or self-care (01) ==
LOC: LAB 11:53
PROVIDERS: PCP Internal Medicine
DX: E11.21 Type 2 diabetes mellitus with diabetic nephropathy (principal); E11.22 Type 2 diabetes mellitus with diabetic chronic kidney disease; N18.32 Chronic kidney disease, stage 3b; R10.11 Right upper quadrant pain; N28.89 Other specified disorders of kidney and ureter; Z90.5 Acquired absence of kidney
CPT/HCPCS: 36415; 80069; 82043; 82306; 82570

== ENCOUNTER → 2025-03-17 | Outpatient (CLI) | payer MEDICARE, BC, SELFPAY ==
--- NOTE | 2025-03-17 13:00 | PROSBIL_PTH ---
PATIENT: JUAREZ GOODRICH LOC: [facility] U#:[id number] AGE/SX: 69/M ROOM: RE03/17/[address]: Dr. Tejas Butt MD : 1955 BED: DIS: 03/17/2025 SPEC #: [id number] RECD: 03/17/25 15:45 STATUS: MALENA REQ #: [id number] GILBERTO: 03/17/25 13:[address]: Tejas Butt DEPT: SURGICAL PATHOLOGY RECD BY: Carlos Albarran ENTERED: 03/18/25 10:42 SP TYPE: PROST BX FLEX DR: Dr. Emmett Rosario MD Tissues: A - PROSTATE RIGHT B - PROSTATE RIGHT C - PROSTATE RIGHT D - PROSTATE LEFT E - PROSTATE LEFT F - PROSTATE LEFT Procedures: PROSTATE BX HEADER OPERATION: Prostate biopsy PRE-OP DIAGNOSIS: Elevated PSA TISSUE SUBMITTED: A - Right apex, B - Right mid, C - Right base, D - Left apex, E - Left mid, F - Left base MICROSCOPIC DIAGNOSIS A. Prostate, right, apex, biopsy: - Adenocarcinoma [place] grade 3+4=7 (30% grade 4), involving one of one core and 80% of the specimen. B. Prostate, right, mid, biopsy: - Adenocarcinoma Rad grade 3+4=7 (5% grade 4), involving two of two cores and 70% of the specimen, with perineural invasion. C. Prostate, right, base, biopsy: - Adenocarcinoma Rad grade 3+3=6, involving two of two cores and 70% of the specimen. D. Prostate, left, apex, biopsy: - Focal atypical small acini, suspicious for adenocarcinoma. E. Prostate, left, mid, biopsy: - Benign. F. Prostate, left, base, biopsy: - Benign. MICROSCOPIC DESCRIPTION Slides are reviewed. GROSS DESCRIPTION Received in 6 formalin containers labeled with the patient's name and date of . Designated as: A. "RA" is a velazquez tissue core, 1.5 cm in length by 0.1 cm in diameter. Entirely submitted in 1 cassette. B. "RM" are 2 velazquez tissue cores each measuring 1.5 cm in length by 0.1 cm in diameter. Entirely submitted in 1 cassette. C. "RB" are 2 velazquez tissue cores, 1.8 cm and 1.9 cm in length by 0.1 cm in diameter. Entirely submitted in 1 cassette. D. "LA" is a velazquez tissue core, 1.3 cm in length by 0.1 cm in diameter. Entirely submitted in 1 cassette. E. "LM" is a velazquez tissue core, 1.6 cm in length by 0.1 cm in diameter. Entirely submitted in 1 cassette. F. "LB" are 3 velazquez tissue cores, 0.4 cm to 1.6 cm in length by 0.1 cm in diameter. Entirely submitted in 1 cassette. SD 03/18/2025 CPT:[id number]
== END | disposition home or self-care (01) ==
LOC: LABSPEC 15:33
PROVIDERS: PCP Internal Medicine; Referring Provider Urology; Visit Provider Urology
DX: R97.20 Elevated prostate specific antigen [PSA] (principal)
CPT/HCPCS: 88305; G0416

== ENCOUNTER → 2025-04-08 | Outpatient (CLI) | payer MEDICARE, BC, SELFPAY ==
--- NOTE | 2025-04-08 09:34 | NM_ITS ---
PROCEDURE: BONE SCAN WHOLE BODY 04/08/2025 REASON FOR EXAM: PROSTATE CA TECHNIQUE: Procedure Code: NMBO Modality: NM Procedure: BONE SCAN WHOLE BODY Whole-body bone scan with anterior and posterior views. Imaging at 3.5 hours. RADIOPHARMACEUTICAL: 26.8 mCi Technetium-99m MDP IV COMPARISON: None. FINDINGS: The patient is status post left avnmu-[id number] amputation. There is increased activity in the tip of the amputated tibia and at the location of the proximal tibiofibular joint, not felt to be clinically significant. There are areas of increased activity in both sternoclavicular joints, both acromioclavicular joints, a midthoracic vertebral level, centrally and 2 lower lumbar vertebral bodies, lateral to the midline. These are most consistent with arthropathy and degenerative disc disease. The activity in the central thoracic spine could be metastatic disease but could also be osteoporotic. A plain x-ray image may be helpful. There is activity seen in both kidneys in the urinary bladder. NM/Bone Scan Whole Body IMPRESSION: 1. There is a solitary focus in the midthoracic spine which could be metastati c disease but could also be an osteoporotic compression fracture. X-ray imaging of the thoracic spine could be helpful. 2. There are no other skeletal abnormalities suggestive of metastatic disease. Reading Location: [id number]
== END | disposition home or self-care (01) ==
LOC: NM 09:31
PROVIDERS: PCP Internal Medicine; Referring Provider Urology; Visit Provider Urology
DX: C61 Malignant neoplasm of prostate (principal); R97.20 Elevated prostate specific antigen [PSA]; N40.3 Nodular prostate with lower urinary tract symptoms
CPT/HCPCS: 78306; A9503

== ENCOUNTER → 2025-04-25 | Outpatient (CLI) | payer MEDICARE, BC, SELFPAY ==
--- NOTE | 2025-04-25 13:40 | CT_ITS ---
PROCEDURE: ABDOMEN/PELVIS W IV CONT ONLY 04/25/2025 REASON FOR EXAM: PROSTATE CA TECHNIQUE: Procedure Code: [id number] Modality: CT Procedure: ABDOMEN/PELVIS W IV CONT ONLY Coronal and Sagittal reconstruction series were provided. CONTRAST: Isovue-300 VOLUME: 100 mL One or more dose reduction techniques were used (e.g., Automated exposure control, adjustment of the mA and/or kV according to patient size, use of iterative reconstruction technique. RADIATION DOSE SUMMARY: CTDlvol: 31.63 mGy DLP: DLP 1187.61 mGycm COMPARISON: Comparison was done with the February 21, 2023 CT scan of the abdomen pelvis FINDINGS: Lung bases: Lung bases are clear. Liver: Normal size. No mass. Gallbladder: Gallbladder is unremarkable. Spleen: Normal size. Pancreas: Normal size without evidence of mass surrounding inflammation or ductal dilation. Adrenals: There is a 17 x 11 mm left adrenal mass that has been stable since the February 21, 2023 CT examination. This mass most likely is an adrenal adenoma. The right adrenal gland is normal. Kidneys: Kidneys there are a few stable simple, acquired left renal cysts and the largest of these is exophytic, 3.7 cm in diameter, and protruding from the posterior aspect of the mid left kidney. There is slight generalized left renal parenchymal atrophy. There is a 1.8 cm diameter simple cyst protruding from the posterior aspect of the lower pole of the left kidney. There is no hydronephrosis nor evidence of a renal calculus. Bladder: Bladder is unremarkable on this CT examination it was done during the corticomedullary phase of enhancement. Reproductive Organs: Reproductive organs unremarkable. Bowel: There are numerous small diverticula arising from the descending colon and sigmoid colon. There is no evidence of diverticulitis, bowel obstruction, nor ileus. Appendix: The appendix is not identified. There is no inflammatory process identified in the right lower quadrant to suggest appendicitis. Lymph nodes: Unremarkable. Vasculature: Slight diffuse atherosclerotic calcifications are noted. Peritoneum / Retroperitoneum: Peritoneal there is no ascites nor free intraperitoneal gas. Bones: There are bilateral L3, L4, and L5 laminectomies. There is dorsal orthopedic hardware at L3 and L4, bilaterally. There are screw tracts in the left L5 pedicle. There are L3-L4 and L5-S1 disc spacers. There are no findings suspicious for lytic nor blastic metastases. Disc spaces: Ciaran there is narrowing of mid and lower lumbar discs. There is a vacuum sign in the L2-L3 disc. CT/Abdomen/Pelvis W IV Cont ONLY IMPRESSION: Degenerative and postsurgical changes at the lumbar spine. Stable left adrenal mass is probably an adenoma. Bilateral simple acquired renal cysts. Colonic diverticulosis. Atherosclerosis. No evidence of an acute process. Reading Location: [id number]
[2025-04-25 14:00] LABS: CREATININE FINGERSTICK 1.1 mg/dL (0.70-1.30); EGFR FINGERSTICK > 60.0000 mL/min (>60)
== END | disposition home or self-care (01) ==
LOC: CT 13:34
PROVIDERS: PCP Internal Medicine; Referring Provider Urology; Visit Provider Urology
DX: C61 Malignant neoplasm of prostate (principal); R97.20 Elevated prostate specific antigen [PSA]; N40.3 Nodular prostate with lower urinary tract symptoms
CPT/HCPCS: 74177; Q9967

== ENCOUNTER 2025-04-28 11:00 | Outpatient (RCR) | payer MEDICARE, BC, SELFPAY ==
--- NOTE | 2024-12-09 07:54 | HP.OTEVAL_ITS ---
Patient's Visit Information Visit Information Visit Information: JUAREZ GOODRICH is a 69 year old M, referred to Occupational Therapy by Dr. Mame Harrison MD, with a diagnosis of primary osteoarthritis right hand. Date of Evaluation: 12/08/24 Occupational Therapist: FANNY Talbert/Sheryl, CHT Subjective Subjective: This 69 year old male was seen for OT eval with dx of right Middle finger Metacarpal arthroplasty. DOS was on 11/16/24 pt arrives 3 weeks and 1 days out from sx. pt is right handed. pt states he has been using the orthosis- therapist noted resting hand orthosis did have padding -when therapist questioned -pt stated his finger was not straight in the orthosis so he added padding to lift his finger more. pt states he noticed when he has difficulty straightening out his right MF ( points at the PIPJ) pt denies tingling and states some soreness. pt motivated to rehab. Pain right hand: Current Pain Intensity: 3 Pain Intensity Range: 4 and 5 ROM MP: right MF Not tested left 0/85* PIP: right MF 60* flexion -15 ext. left 0/100* DIP: right MF 50*flex 0* ext. left 0/65 ROM Comments: MPJ of right MF will be tested at later date Strength Strength Comments: will test at later date Edema Wrist: right 18cm left 17.5cm PIP: right MF 7.7 left 7.0 Other: MCP right 22cm left 21.5cm Quick DASH-Disab of Arm,Shoulder& Hand Quick DASH Score: 70.4525 Goals Goal:100% adherence to protocol: Yes Comment: Dr. Harrison's MCP arthroplasty Protocol Goal:Daily scar massage when approriate: Yes Goal:ROM equal to unaffected hand: Yes Goal:Component Prep Operator/Pinch strength at least 75% of unaffected hand: Yes Comment: not to initiate until week 6 ( follow protocol) Goal:No pain with affected hand use: Yes Goal:PIP Circumferences equal to unaffected hand: Yes Goal:Full use of affected hand in daily activities including work: Yes Goal:Decrease scar hypersensitivity: Yes Other Goal: orthosis use: pt will demo understanding of orthosis use by end of 1st session. Rehabilitation General Assessment: Pt arrives 3 weeks and 1 days s/p from a right MF MCP Arthroplasty. Pt demo newly healing structures and limited use of his right dominate hand for ADLs and IADLs. Pt would benefit from skilled OT services 1-2x week for 8 weeks to return pt to a functional use of right hand with ADLS. Today therapist went in depth with pt the need to follow DR. Harrison's Post- operative MCP Arthroplasty protocol. ed. pt on healing of structures and best approach to have a stable functional hand at the end of his rehab. Therapist ed. pt on scar massage over his healed incision and review of PIP and DIP motion. Pt demo understanding. Therapist did adj resting hand orthosis to place fingers in N. and decrease slight PIP extensor lag. pt reported fit felt better. pt demo understanding and agree to POC. Rehabilitation Potential: Good Anticipated Interventions Anticipated Interventions: A/AAROM/PROM, Edema Control, Scar Care, Triggerpoint Release, Modalities, Orthoses, Joint Protection/Energy Conservation, Ergonomic Education, Fine Motor Coord/Fabian, Education re assistive Equipment, Education re Diagnosis and Home Program Visit Plan Frequency: 1-2x /Week Duration: 2 Months General Plan: 2 weeks P/O Custom kasie. resting hand splint to wear during the day and night ( MP full ext, PIP/DIP free, Splint with adjacent nonop finger. Allow PIP and DIP Motion Keeping MP's at Neutral. Initiate Scar massage over healed areas Edema mtg. ( coband if needed ) 4 weeks P/O Begin coordination activities ( fine motor activities ie pegs) Begin AROM 5 week P/O Begin AROM outside of splint ( shelf position at MPs and tendon glides) Objective measurements of AROM outside of splint Light ADL's and functional activities Continue with ROM exercises May Discontinue splint Per MD orders 6 week P/O Begin PROM of all joints Add gentle strengthening exercises and isometric resistive exercises avoiding ulnar forces ( 1/2 of a foam ball/ yellow digiflex, or light putty) 8 weeks P/O Progress strengthening exercises as tolerated PRECAUTIONS Monitoring the postop wound and inspecting the skin for pressure areas each visit is important due to the thin skin Caution must be taken to avoid any lateral stress to the implant during the initial 10-12 week following sx. This allows for optimal stability and alignment of the joint as the pseudo- capsule forms. Do Not attempt to gain passive flexion beyond 85* ( This may risk fracturing the prosthesis through time The most stable joints are those achieving approximately 60-70* of motion. Motion beyond this results in less stability and offers little to no functional advantage. TEXT: Thank you for the opportunity to evaluate your patient. For Medicare and Medicare HMO plans, please review the plan of care and approve it. It will need to be FAXED BACK to us at [phone] for Medicare purposes. Please let me know if there are questions or concerns regarding this plan of care. Physician Signature: Date:
--- NOTE | 2025-02-10 11:21 | OTREVAL_ITS ---
Re-Evaluation Intro: Dr. Mame Harrison MD, It has been my pleasure to treat JUAREZ GOODRICH over the last 14 visits for primary osteoarthritis right hand. Please see the progress note below for an update on the occupational therapy plan of care! Subjective Subjective: pt arrives states if he is at rest his hand does not hurt- if he states if he uses his sponge to work on tub puller his hand does get painful. Objective Objective/Function: pt arrives 12 weeks s/p from right MF joint replacement. pt demo good ROM. pt states he can perform all his ADLs at IND level- states pulling on is prosthetic road cleaner sock his finger does feel some soreness. right tub puller 35# left 90# right MF MCP ROM -10/55* right MF PIP ROM -20/95 pt still struggling with extensor lag- and possible scar adhesion of extensor tendon ( pt is performing scar massage 5-6x a day) pt continues to work with his hands. therapist continues to ed. pt on avoiding over pressure with flexion and ext. ( but pt states he does stretch his finger and demo passive extension of his finger- therapist ed. pt to avoid doing this) to use active motion. therapy has initiated light putty and reistive sponge to strength his girp strength- therapist has ed. pt on the precautions of having the joint replacement. PRECAUTIONS Monitoring Caution must be taken to avoid any lateral stress to the implant during the initial 10-12 week following sx. This allows for optimal stability and alignment of the joint as the pseudo- capsule forms. Do Not attempt to gain passive flexion beyond 85* ( This may risk fracturing the prosthesis through time The most stable joints are those achieving approximately 60-70* of motion. Motion beyond this results in less stability and offers little to no functional advantage. Plan Plan Frequency: 1-2x /Week Duration: 2 Months Visits in this POC: 24 Goals Goals Patient Goals: Regain Mobility, Improve Fine Motor Skills, Use Hand/Wrist/Arm Normally Again and Be More Independent in ADLS Goal:100% adherence to protocol: Yes Goal:Daily scar massage when approriate: Yes Goal:ROM equal to unaffected hand: Yes Goal:Mainspring Reverse Winder/Pinch strength at least 75% of unaffected hand: Yes Goal:No pain with affected hand use: Yes Goal:PIP Circumferences equal to unaffected hand: Yes Goal:Full use of affected hand in daily activities including work: Yes Goal:Decrease scar hypersensitivity: Yes Other Goal: orthosis use: pt will demo understanding of orthosis use by end of 1st session. Anticipated Interventions Anticipated Interventions Anticipated Interventions: A/AAROM/PROM, Edema Control, Scar Care, Triggerpoint Release, Modalities, Orthoses, Joint Protection/Energy Conservation, Ergonomic Education, Fine Motor Coord/Fabian, Education re assistive Equipment, Education re Diagnosis and Home Program Re-Evaluation Ending Re-evaluation ending: Please do not hesitate to contact me at [phone] by phone or if you have questions or concerns regarding this new plan of care! Sincerely, Elisa Warren, OTR/L, CHT
--- NOTE | 2025-03-14 11:29 | OTREVAL_ITS ---
Re-Evaluation Intro: Dr. Mame Harrison MD, It has been my pleasure to treat JUAREZ GOODRICH over the last 21 visits for primary osteoarthritis right hand. Please see the progress note below for an update on the occupational therapy plan of care! Subjective Subjective: Pt arrived to his 21 therapy session following a right MF MCP joint replacement- pt continues to have concerns with pain- ( but is performing yard work- mostly on riding mower or front dry kiln loader) pt lives [place] and is performing all cooking and laundry task. Objective Objective/Function: pt arrives close to 17 weeks s/p from right MF joint replacement. pt demo good ROM. pt states he can perform all his ADLs at IND level- states pulling on is prosthetic leg transportation security screener sock his finger does feel some soreness. right associate professor of psychology 40# left 90# right MF MCP ROM -20/60* (increase from -20/30) right MF PIP ROM -15/95 ( increase from -30/95) pt still struggling with extensor lag- and possible scar adhesion of extensor tendon ( pt is performing scar massage daily) noted pt does like to use his IF to assist pts MF in active motion- this pushes MF ulnar - therapist has ed. and pt has identified himself doing this and is working on avoiding. pt continues to work with his hands. therapist continues to ed. pt on avoiding lateral stress on MF- ( may use hanna to protect) therapy has initiated light putty (yellow)and resistive ex to strength his girp strength - as he uses his hand for daily tasks. therapist has ed. pt on the precautions of having the joint replacement. that pseudo joint will not tolerate much force at this time. and he needs to explain to his surgeon what he typically uses ie chain saw- loppers and other tools and get Dr. Harrison to approval. therapist ed. pt on extensor strengthening supporting MPJ- use of k-tape to decrease extensor lag. pt using a variety of splints to improve lag and strengthen extensors PRECAUTIONS Monitoring Caution must be taken to avoid any lateral stress to the implant during the initial 10-12 week following sx. This allows for optimal stability and alignment of the joint as the pseudo- capsule forms. Do Not attempt to gain passive flexion beyond 85* ( This may risk fracturing the prosthesis through time The most stable joints are those achieving approximately 60-70* of motion. Motion beyond this results in less stability and offers little to no functional advantage. Plan Plan Visits in this POC: 24 Plan: will See Goals Goals Patient Goals: Regain Mobility, Improve Fine Motor Skills, Use Hand/Wrist/Arm Normally Again and Be More Independent in ADLS Goal:100% adherence to protocol: Yes Goal:Daily scar massage when approriate: Yes Goal:ROM equal to unaffected hand: Yes Goal:Acetylene Burner/Pinch strength at least 75% of unaffected hand: Yes Goal:No pain with affected hand use: Yes Goal:PIP Circumferences equal to unaffected hand: Yes Goal:Full use of affected hand in daily activities including work: Yes Goal:Decrease scar hypersensitivity: Yes Other Goal: orthosis use: pt will demo understanding of orthosis use by end of 1st session. Anticipated Interventions Anticipated Interventions Anticipated Interventions: A/AAROM/PROM, Edema Control, Scar Care, Triggerpoint Release, Modalities, Orthoses, Joint Protection/Energy Conservation, Ergonomic Education, Fine Motor Coord/Fabian, Education re assistive Equipment, Education re Diagnosis and Home Program Re-Evaluation Ending Re-evaluation ending: Please do not hesitate to contact me at [phone] by phone or if you have questions or concerns regarding this new plan of care! Sincerely, Elisa Warren OTR/L, CHT
--- NOTE | 2025-04-28 11:50 | HP.OTDCSUM_ITS ---
Discharge Summary D/C Summary: It has been my pleasure to treat JUAREZ GOODRICH under orders from Dr. Mame Harrison MD, for the diagnosis of primary osteoarthritis right hand for a total of 26 visit(s). Please see the following information for a summary of their discharge status. Overall Improvement % Improvement: 90 Objective Objective/Function: pt arrives close to 22 weeks s/p from right MF joint replacement. pt demo good ROM. pt states he can perform all his ADLs at IND level- states pulling on is prosthetic leg slitter creaser slotter operator sock his finger does feel some soreness. right blanket winder operator 55## left 90# right MF MCP ROM -20/60* (increase from -30) right MF PIP ROM -20/95 ( increase from -) pt still struggling with extensor lag- and possible scar adhesion of extensor tendon ( pt is performing scar massage daily) noted pt does like to use his IF to assist pts MF in active motion- this pushes MF ulnar - therapist has ed. and pt has identified himself doing this and is working on avoiding. pt continues to work with his hands. therapist continues to ed. pt on avoiding lateral stress on MF- ( may use hanna to protect) therapist has ed. pt on using hanna splints to decrease extensor lag. with functional tasks. therapist ed. pt on extensor strengthening supporting MPJ- use of k-tape to decrease extensor lag. pt using a variety of splints to improve lag and strengthen extensors PRECAUTIONS Monitoring Caution must be taken to avoid any lateral stress to the implant during the initial 10-12 week following sx. This allows for optimal stability and alignment of the joint as the pseudo- capsule forms. Do Not attempt to gain passive flexion beyond 85* ( This may risk fracturing the prosthesis through time The most stable joints are those achieving approximately 60-70* of motion. Motion beyond this results in less stability and offers little to no functional advantage. Goals Patient Goals: Regain Mobility, Improve Fine Motor Skills, Use Hand/Wrist/Arm Normally Again and Be More Independent in ADLS Goal:100% adherence to protocol: Yes Goal Progress: Goal Met Goal:Daily scar massage when approriate: Yes Goal Progress: Goal Met Goal:ROM equal to unaffected hand: Yes Goal Progress: Progressing Goal:Internet Researcher/Pinch strength at least 75% of unaffected hand: Yes Goal Progress: Goal Met Goal:No pain with affected hand use: Yes Goal:PIP Circumferences equal to unaffected hand: Yes Goal Progress: Goal Met Goal:Full use of affected hand in daily activities including work: Yes Goal:Decrease scar hypersensitivity: Yes Goal Progress: Goal Met Other Goal: orthosis use: pt will demo understanding of orthosis use by end of 1st session. Goal Progress: Goal Met Plan Plan: D/C - use splints as needed D/C Information Discharge Comments: pt has continued to demo with MF extensor lag- therapist has advised to cont. with hanna splints at middle phalanx. pt to cont to use hand as tolerated. pt d/c at this time with HEP d/c sentence: If there are questions or concerns regarding this patient's occupational therapy, please fell free to call me at [phone]. Thank you for the referral of this patient. Sincerely, Elisa Warren, OTR/L, CHT
== END 2025-04-28 19:00 | disposition home or self-care (01) ==
LOC: OT 11:00
PROVIDERS: PCP Internal Medicine; Referring Provider Orthopaedic Surgery Hand Surgery; Visit Provider Orthopaedic Surgery Hand Surgery
DX: M19.041 Primary osteoarthritis, right hand (principal)
CPT/HCPCS: 97110; 97140; 97166; 97530

== ENCOUNTER → 2025-05-10 | Outpatient (CLI) | payer MEDICARE, BC, SELFPAY | END | disposition home or self-care (01) | LOC: ONC 09:10 | PROVIDERS: PCP Internal Medicine; Referring Provider Urology; Visit Provider Urology | DX: C61 Malignant neoplasm of prostate (principal); R97.21 Rising PSA following treatment for malignant neoplasm of prostate | CPT/HCPCS: 78815; A9595 ==